=== PATIENT | female | born 1950 | race Caucasian/White ===

== ENCOUNTER → 2017-11-26 14:18 | Outpatient (CLI) | payer MEDICARE, SELFPAY ==
[2017-10-09 15:07] VITALS: BP 192/99; BMI 28.7
[2017-11-26 14:59] LABS: Platelet Count 443 K/mm3 (150-450)
[2017-11-26 15:20] LABS: Valproic Acid (Depakene) Level 57 ug/mL (50-100)
[2017-11-26 15:21] LABS: AST(SGOT) 14 U/L (15-37); Alanine Aminotransfer ALT/SGPT 17 U/L (13-56)
== END ==
PROVIDERS: Family Provider Family Medicine Geriatric Medicine; PCP Family Medicine Geriatric Medicine; Visit Provider Psychiatry & Neurology Psychiatry
DX: Z79.899 Other long term (current) drug therapy (principal)
CPT/HCPCS: 36415; 80164; 84450; 84460; 85049

== ENCOUNTER → 2017-12-10 13:34 | Outpatient (CLI) | payer MEDICARE, SELFPAY ==
[2017-12-10 17:09] LABS: Absolute Lymphocyte Count 2.72 X10^3/ul (0.83-4.51); Absolute Neutrophil Count 5.6 X10^3/uL (2.0-7.7); Basophil# 0.03 X10^3/uL; Basophil% 0.3 % (0-1); Eosinophil# 0.24 X10^3/uL; Eosinophils% 2.5 % (0-5); Hematocrit 44.4 % (37-47); Lymphocyte # 2.72 X10^3/ul (4.0); Lymphocyte % 28.6 % (19-41); Mean Corp Hgb Conc 33.8 g/gl (32-36); Mean Corpuscular Volume 94.7 fL (81-99); Mean Platelet Vol. 10.6 fl (6.2-12.0); Monocyte# 0.91 X10^3/uL; Monocyte% 9.6 % (0-10); Neutrophil # 5.56 X10^3/uL (2.7-7.7); Neutrophil % 58.5 % (47-70); Platelet Count 544 K/mm3 (150-450); RBC Distribution Width CV 13.8 % (11.6-14.6); RBC Distribution Width SD 46.4 fl (35.1-43.9); Red Blood Count 4.69 M/mm3 (4.2-5.4); White Blood Count 9.5 K/mm3 (4.4-11.0)
[2017-12-10 17:11] LABS: POSITIVE COUNT NO; POSITIVE DIFFERENTIAL NO; POSITIVE MORPHOLOGY NO
[2017-12-10 17:34] LABS: AST(SGOT) 16 U/L (15-37); Alanine Aminotransfer ALT/SGPT 18 U/L (13-56); Albumin, Serum 3.9 g/dL (3.2-5.0); Alkaline Phosphatase 106 U/L (45-117); Anion Gap 7 (5-15); BUN 20 mg/dL (7-18); BUN/Creat Ratio 22.1 RATIO (10-20); Calcium,Total 9.4 mg/dL (8.5-10.1); Chloride 100 mmol/L (98-107); EST Glomerular Filtration Rate 66 mL/min (>60); Est Glom Filt Rate - Afr Amer 80 mL/min (>60); Globulin 3.8 g/dL (2.2-4.2); Glucose 90 mg/dL (74-106); Protein, Total 7.7 g/dL (6.4-8.2); Sodium Level 136 mmol/L (136-145); Thyroid Stim Hormone (TSH) 1.06 uIU/mL (0.358-3.74)
[2017-12-11 10:33] LABS: Vitamin D,25 Hydroxy 18.1 ng/mL (19.95-100.01)
== END ==
PROVIDERS: Family Provider Family Medicine Geriatric Medicine; PCP Family Medicine Geriatric Medicine; Visit Provider Family Medicine Geriatric Medicine
DX: I10 Essential (primary) hypertension (principal); E55.9 Vitamin D deficiency, unspecified
CPT/HCPCS: 36415; 80053; 82306; 84443; 85025

== ENCOUNTER 2017-12-18 22:30 | Emergency (ER) | payer MEDICARE, SELFPAY ==
[2017-12-18 22:31] VITALS: BP 135/85; PULSE 91; RESP 18; TEMP 36.8; O2SAT 97; BMI 31.1
--- NOTE | 2017-12-18 22:52 | ED.DCSUM_ITS ---
- ER Visit Summary Date of Service: 12/18/17 Chief Complaint: [] Back pain History of Present Illness: The patient is a 67 F patient comes in by squad from [employer] with back pain. The patient stated that she has had whole-body syndrome over the last 7 days. She said it is from mentally disclosing a traumatic event publicly and now she is having pain as a result. She saw Dr. Jones in the office yesterday for some injections. He started her on gabapentin, prednisone, baclofen, diclofenac. Comes in for further treatment. She said that every muscle in her body has been aching Physical Examination: [] Vital signs reviewed General: Well-nourished well-developed Head: Normocephalic atraumatic Eyes: Pupils equal round and reactive to light extraocular movements intact ENT: TMs clear no hemotympanum no trauma Neck: Nontender full range of motion Cardiovascular: Regular rate rhythm no murmurs normal S1-S2 Respiratory: No distress clear to auscultation bilaterally chest nontender Abdomen: Soft nontender nondistended normal bowel sounds no masses Back: Nontender no CVA tenderness Extremities: Nontender active range of motion ?4 extremities no trauma Skin: Normal color no trauma Neuro alert oriented cranial nerves II through XII intact normal strength sensation reflexes Test Results: [] Emergency Department Course and Treatment: [] Time I feel the patient has no acute emergent cause of her whole body pain. I feel this is psychological. She has affected give her a shot of Toradol. I did state that I will follow-up as an outpatient. Treatment Plan: [] Disposition: [] Impression: [] Body pain This note was generated with [employer] dictation software. It may contain incorrect words, spelling, and punctuation that were not noted in review of the chart prior to signing ED Disposition - Plan for ED Patient: Chief Complaint: Back Referrals: Zeke Jones Chi, MD [Primary Care Provider] -
--- NOTE | 2017-12-18 22:52 | ED.DEP ---
ED Disposition - Plan for ED Patient: Disposition: Home or Assisted Living Chief Complaint: Back Instructions: Relieving Back Pain Referrals: Zeke Jones Chi, MD [Primary Care Provider] -
[2017-12-18] MEDS: Ketorolac 60 MG/2 ML Vial IM (22:56)
[2017-12-18 23:29] VITALS: BP 129/94; PULSE 87; O2SAT 93
== END 2017-12-18 23:30 | disposition home or self-care (01) ==
PROVIDERS: Emergency Provider Emergency Medicine; Family Provider Family Medicine Geriatric Medicine; PCP Family Medicine Geriatric Medicine
DX: M79.1 Myalgia (principal); Z79.52 Long term (current) use of systemic steroids; Z79.899 Other long term (current) drug therapy
CPT/HCPCS: 96372; 99284

== ENCOUNTER 2017-12-23 01:15 | Emergency (ER) | payer MEDICARE, SELFPAY ==
[2017-12-23 01:17] VITALS: BP 125/95; PULSE 90; RESP 18; TEMP 36.5; O2SAT 96
--- NOTE | 2017-12-23 01:37 | ED.VISSUMM ---
- ER Visit Summary Date of Service: 12/23/17 Chief Complaint: Manic History of Present Illness: The patient is a 67 F who sees a counselor at [facility] and Dr. Jones. She reports that she has a history of bipolar disorder. States that she has not slept for 2 days. She denies any suicidal or homicidal ideation. No auditory hallucinations. She took 75 mg of Benadryl at 1130. Physical Examination: Vitals: Stable. Afebrile. General: Well-nourished and well-developed. Head: Normocephalic atraumatic. Neck: Supple, no lymphadenopathy. No JVD. Nontender. Cardiovascular: Regular rate and rhythm. No murmurs. Respiratory: No respiratory distress. Clear to auscultation bilaterally. Abdominal: Soft, nontender, nondistended, normal bowel sounds. No guarding, rebound, or peritoneal signs. Back: Nontender. Extremities: Nontender, no edema. Skin: Normal color, no rash. Neurologic: Alert and oriented ?3. Cranial nerves II through XII are intact. Normal strength and sensation. Psych: Normal affect. Emergency Department Course and Treatment: Patient was given a dose of Ambien on arrival of her taxi. Treatment Plan: Patient is instructed to follow-up at 180 tomorrow for further evaluation. She already has an appointment. Disposition: To home in improved and stable condition. Impression: 1. Bipolar disorder. This note was generated with [employer] dictation software. It may contain incorrect words, spelling, and punctuation that were not noted in review of the chart prior to signing ED Disposition - Plan for ED Patient: Disposition: Home or Assisted Living Chief Complaint: Mental Health Instructions: ED Manic Depression Referrals: EIGHTY,ONE [STAFF PHYSICIAN] - Keep Lis appointment
[2017-12-23 02:13] VITALS: RESP 16
[2017-12-23] MEDS: Zolpidem Tartrate 5 MG Tablet 10 MG PO (02:13)
--- NOTE | 2017-12-23 02:14 | ED.RN ---
PER DR. ESPINOZA, WE NEED TO MEDICATE PT RIGHT BEFORE [facility] TAKES PT HOME. PT WAS ALREADY [facility] TO GET MED. PT GIVEN MED. WATCHED PT WALKED OUT TO [facility].
== END 2017-12-23 02:16 | disposition home or self-care (01) ==
LOC: ED 01:54
PROVIDERS: Emergency Provider Emergency Medicine; Family Provider Family Medicine Geriatric Medicine; PCP Family Medicine Geriatric Medicine
DX: F31.9 Bipolar disorder, unspecified (principal); G47.33 Obstructive sleep apnea (adult) (pediatric); R56.9 Unspecified convulsions; F44.81 Dissociative identity disorder; Z72.0 Tobacco use; Z79.899 Other long term (current) drug therapy
CPT/HCPCS: 99284

== ENCOUNTER 2017-12-24 16:41 | Observation (INO) | payer MEDICARE, SELFPAY ==
[2017-12-24] VITALS (7 sets, daily range): BP systolic 95–139; BP diastolic 58–93; PULSE 70–82; RESP 14–20; TEMP 36.5–37; O2SAT 95–100; BMI 32.3
--- NOTE | 2017-12-24 17:00 | EKG12_ITS ---
Test Reason : MHC Blood Pressure : / mmHG Vent. Rate : 070 BPM Atrial Rate : 070 BPM P-R Int : 154 ms QRS Dur : 080 ms QT Int : 412 ms P-R-T Axes : 064 073 063 degrees QTc Int : 444 ms Normal sinus rhythm Normal ECG Confirmed by EMY KHAN ([id number]), senior editor DONATO CISSE ([id number]) on 12/28/2017 1:41:39 PM Referred By: DC Confirmed By:EMY KHAN
[2017-12-24 17:11] LABS: Absolute Lymphocyte Count 2.43 X10^3/ul (0.83-4.51); Absolute Neutrophil Count 12.6 X10^3/uL (2.0-7.7); Basophil# 0.01 X10^3/uL; Basophil% 0.1 % (0-1); Eosinophil# 0.01 X10^3/uL; Eosinophils% 0.1 % (0-5); Hemoglobin 13.4 g/dl (12.0-15.0); Lymphocyte # 2.43 X10^3/ul (4.0); Lymphocyte % 15.2 % (19-41); Mean Corp Hgb Conc 32.7 g/gl (32-36); Mean Corpuscular Volume 94.9 fL (81-99); Mean Platelet Vol. 9.5 fl (6.2-12.0); Monocyte# 0.85 X10^3/uL; Monocyte% 5.3 % (0-10); Neutrophil # 12.56 X10^3/uL (2.7-7.7); Neutrophil % 78.7 % (47-70); Platelet Count 492 K/mm3 (150-450); RBC Distribution Width CV 13.7 % (11.6-14.6); RBC Distribution Width SD 47.2 fl (35.1-43.9); Red Blood Count 4.32 M/mm3 (4.2-5.4)
[2017-12-24 17:20] LABS: Anion Gap 8 (5-15); BUN 38 mg/dL (7-18); BUN/Creat Ratio 28.8 RATIO (10-20); Calcium,Total 8.6 mg/dL (8.5-10.1); Chloride 103 mmol/L (98-107); Creatinine, Serum 1.32 mg/dL (0.55-1.02); EST Glomerular Filtration Rate 43 mL/min (>60); Est Glom Filt Rate - Afr Amer 52 mL/min (>60); Estimated Creatinine Clearance 30.52 ml/min; Glucose 111 mg/dL (74-106); POSITIVE COUNT NO; POSITIVE DIFFERENTIAL NO; POSITIVE MORPHOLOGY NO; Potassium 4.1 mmol/L (3.5-5.1); Sodium Level 137 mmol/L (136-145)
--- NOTE | 2017-12-24 17:58 | ED.RN ---
GENARO WITH CRISIS IS AWARE THAT PT IS HERE AND NEEDS TO BE SEEN
[2017-12-24 18:02] LABS: Bacteria 0 SEEN /hpf (None Seen); Mucous, Urine 0 SEEN /hpf (<or=2+); Red Blood Cells-Urine 0 SEEN /hpf (0-5)
[2017-12-24 18:05] LABS: Color, Urine Yellow (Yellow); Glucose, Dipstick Normal (Normal); Ketone-Dipstick 5 mg/dl (Negative); Leukocyte Esterase-Dipstick 25 /ul (Negative); Nitrite-Dipstick Negative (Negative); Occult Blood-Urine Negative /ul (Negative); Protein-Dipstick 15 mg/dl (Negative); Specific Gravity, Urine 1.015 (1.002-1.030); Urine Bilirubin Dipstick Negative (Negative); Urine Clarity Clear (Clear); Urine Urobilinogen 1 mg/dl (Normal); Urine pH 6.5 (5.0 - 8.0)
[2017-12-24 18:34] LABS: Amphetamine Urine VISTA NEGATIVE (<1000 ng/mL); Barbiturate Urine VISTA NEGATIVE (< 200 ng/mL); Benzodiazepine Urine VISTA NEGATIVE (< 200 ng/mL); Cocaine Urine VISTA NEGATIVE (< 300 ng/mL); Ecstacy Urine VISTA NEGATIVE (< 500 ng/mL); Methadone Urine VISTA NEGATIVE (< 300 ng/mL); PCP Urine VISTA NEGATIVE (< 25 ng/mL); THC Urine VISTA NEGATIVE (< 50 ng/mL); Vista UDS pH Range 6
[2017-12-24 18:35] LABS: Hyaline Cast 0-5 SEEN /lpf (0-5); Squamous Epithelial Cells - UA 5-10 SEEN /hpf (5-10); White Blood Cells 0-5 SEEN /hpf (0-5)
--- NOTE | 2017-12-24 21:10 | RAD_ITS ---
STUDY: X-RAY CHEST REASON FOR EXAM: Female, 67 years old. Cough TECHNIQUE: AP portable COMPARISON: August 20, 2017 FINDINGS: The lungs are clear and expanded. Tiny calcified granuloma in right lower lobe There is no demonstrated pleural abnormality. Normal size heart. Normal mediastinum. Bilateral calcified hilar nodes Normal visualized pulmonary arteries. Normal visualized aortic arch and descending thoracic aorta. Dorsal spine demonstrates moderate spondylosis Normal visualized ribs, clavicles, and shoulders. There is no demonstrated abnormality of the visualized soft tissue structures of the upper abdomen. No significant change since prior study RAD/Chest 1 View (Portable) IMPRESSION: Old granulomatous disease. No acute cardiopulmonary pathology Electronically Signed: Hay Crabtree MD at 22:10 EST , Service support ,
[2017-12-24] MEDS: 0.9% Normal Saline 1,000 ML 999 ML IV (21:27)
--- NOTE | 2017-12-24 21:49 | ED.DCSUM_ITS ---
- ER Visit Summary Date of Service: 12/24/17 Chief Complaint: Manic episode History of Present Illness: The patient is a 67 F with a history of bipolar disorder. She presents with increasing manic symptoms. She has not been eating or sleeping much over the last few days. She is not suicidal or homicidal. She was taking Invega and Depakote. Physical Examination: Vital signs unremarkable. Afebrile. Mildly agitated with flight of ideas. Heart regular. Lungs clear. Abdomen soft. Skin appears normal. No focal or lateralizing neurologic abnormalities. Test Results: EKG showed sinus rhythm at a rate of 70. Chest x-ray pending. Laboratory studies show white count of 16. BUN 38 and creatinine 1.32. Urinalysis shows signs of contamination. No overt signs of infection. Tox screen negative. Alcohol unremarkable. Cultures pending. Emergency Department Course and Treatment: Patient had psych precautions. She has manic symptoms and she is not taking her medications. I believe the patient would benefit from inpatient psychiatric care. She is not suicidal or homicidal. She was evaluated by the counselor here. Clearance testing showed a white count of 16 and an elevated creatinine. This is a departure from her baseline creatinine. Patient had 2 more findings in the past with a UTI and bacteremia. She does not have evidence of UTI today. Cultures are pending. I do not believe that she will receive adequate medical care at a psychiatric facility. IV fluids were started. I contacted the hospitalist to evaluate. The counselor said that when she is cleared, she may be transferred for further psychiatric care. Treatment Plan: As above Disposition: Admission Impression: 1. Bipolar disorder 2. Leukocytosis 3. Acute kidney injury This note was generated with [employer] dictation software. It may contain incorrect words, spelling, and punctuation that were not noted in review of the chart prior to signing ED Disposition - Plan for ED Patient: Chief Complaint: Mental Health Referrals: Zeke Jones Chi, MD [Primary Care Provider] -
--- NOTE | 2017-12-24 22:02 | PCM.HP.STD ---
Problem List (1) COPD (chronic obstructive pulmonary disease) Status: Chronic Qualifiers: (2) Manic depressive disorder Status: Chronic Qualifiers: (3) Hypertension Status: Chronic Qualifiers: (4) Tobacco abuse Status: Chronic (5) Noncompliance Status: Chronic (6) Bipolar disorder Status: Chronic Qualifiers: (7) Opioid dependence Status: Chronic Qualifiers: History of Present Illness Date of Admission: 12/24/17 Chief Complaint: Manic symptoms. The patient is a 67 year old F with past medical history as mentioned above presented to the emergency room because of what appeared to be manic symptoms. The patient was over talkative, did not stop talking during the whole encounter. Reportedly, she has been not eating or drinking not sleeping over the last few days. She denies any suicidal or homicidal ideations or intentions. She denied chest pain or shortness of breath. Denied abdominal pain, nausea vomiting. Denied constipation or diarrhea. Denied cough or sputum production. Denied urinary symptoms. She was evaluated by the mental health team at the emergency room for possible admission to psych facility but she was found to have acute kidney injury and leukocytosis on blood work and the need to clear the patient medically to be admitted to the psych facility. Patient did admit that she has not been eating or drinking for the last few days. She has a history of hypertension which appears to be under control with hydralazine, lisinopril and metoprolol. She has a history of COPD but she is not using any treatment for it and appears to be stable and she has been on home oxygen. She has a history of bipolar disorder and she has been on Depakote and following up with psychiatry as outpatient. Back in November,, she had E. coli bacteremia due to acute cystitis. At this time, she is not suicidal or homicidal. In the emergency room, her vital signs were stable, she was afebrile. Her routine blood work is remarkable for leukocytosis and creatinine of 1.32. Urinalysis revealed no evidence of acute cystitis or UTI. Urine drug screen was negative, blood alcohol level was 8. She is being admitted for acute kidney injury and leukocytosis without evidence of infection. Past Medical History Past Medical History (Chronic Problems): Chronic Problems COPD (chronic obstructive pulmonary disease) (Chronic) Manic depressive disorder (Chronic) Hypertension (Chronic) Tobacco abuse (Chronic) Noncompliance (Chronic) Bipolar disorder (Chronic) Opioid dependence (Chronic) Allergies lurasidone [From Latuda] Allergy (Verified 12/24/17 16:42) Other naproxen Allergy (Verified 12/24/17 16:42) Hives trazodone Allergy (Verified 12/24/17 16:42) Other theophylline Adverse Reaction (Verified 12/24/17 16:42) Other SLOBID Adverse Reaction (Uncoded 12/24/17 16:42) Other Home Medications: Ambulatory Orders Medication Instructions Recorded Clonidine HCl 0.1 mg PO TID 03/24/17 Lisinopril [Zestril] 20 mg PO DAILY 03/24/17 Metoprolol Tartrate [Lopressor 25 mg PO DAILY 03/24/17 (beta angelita)] HydrALAZINE [Apresoline] 50 mg PO TID 04/08/17 Divalproex (ER) [Depakote ER] 500 mg PO BID 06/20/17 Baclofen 10 mg PO DAILY 12/18/17 Celecoxib [Celebrex] 200 mg PO DAILY 12/18/17 Gabapentin [Neurontin] 300 mg PO QHS 12/18/17 Pravastatin [Pravachol] 40 mg PO DAILY 12/18/17 Prednisone 10 mg PO DAILY 12/18/17 Surgical History: hysterectomy, - - C-sections, hernia repair. 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 Denies: Chills, Fever, Weakness Eyes: Denies: Blurred vision, Double vision, Drainage, Redness HEENT: Denies: Difficulty Hearing, Ear Pain, Eye Pain, Nasal Congestion, Sore Throat Cardiovascular: Denies: Chest Pain, Chest Tightness, Heaviness, Light Headedness, Palpitations, Syncope Respiratory: Denies: Cough, Pleuritic Pain, Shortness of Breath, Sputum production, Wheezing Gastrointestinal: Denies: Abdominal Pain, Constipation, Diarrhea, Nausea, Vomiting Genitourinary: Denies: Dysuria, Frequency, Hematuria Musculoskeletal: Denies: Arm Pain, Back Pain, Foot Pain Skin: Denies: Dryness, Rash Neurological: Denies: Balance problems, Double vision, Change in Speech, Headaches, Incoordination, Numbness Psychiatric: Denies: Anxiety, Depression, Homicidal Ideations, Suicidal Ideations Endocrine: Denies: Change in Body Habitus, Polydipsia VTE Information - Inpt Only VTE Present on Admission: No VTE Mechan Device Prophylaxis: None VTE Pharm Prophylaxis ordered?: Yes - Physical Exam General: Alert, Oriented x3, Cooperative, - - Over talkative, hyperactive. HEENT: Atraumatic, PERRLA, EOMI Oral: Moist Mucosa, No Gingival or Mucosal Lesions/ Ulcerations Neck: Supple, No JVD, Negative Carotid Bruits, Trachea Midline, Thyroid Normal Size and Texture Lungs: Clear to auscultation, No rhonchi, No wheeze, No rales, Diminished Cardiovascular: Regular rate, Regular Rhythm, Normal S1, Normal S2, No murmurs, PMI Normal Abdomen: Bowel Sounds Present, Soft, Non Tender, Non-Distended, No Hepato-splenomegaly Extremities: No clubbing, No cyanosis, No edema Skin: No rashes, No breakdown Lymphatic: No Cervical, Supraclavicular, or Inguinal Adenopathy Neurological: Cranial nerves II-XII grossly intact, Motor Exam 5/5 strength throughout Psych/Mental Status: Impulsive, Manic, Alert and oriented to time, place, person, mood and affect Vital Signs Temp Pulse Resp BP Pulse Ox 98.4 F 75 16 126/83 H 96 12/24/17 21:54 12/24/17 21:54 12/24/17 21:54 12/24/17 21:54 12/24/17 21:54 Oxygen Delivery Method Room Air Weight: 165 lb 9.074 oz Body Mass Index (BMI) 32.3 Finger Stick Blood Glucose 161 Laboratory Tests Past 24 Hrs 12/24/17 12/24/17 12/24/17 16:50 16:50 16:50 WBC 16.0 H RBC 4.32 Hgb 13.4 Hct 41.0 MCV 94.9 MCH 31.0 MCHC 32.7 RDW 13.7 RDW Differential 47.2 H Plt Count 492 H MPV 9.5 Immature Gran % (Auto) 0.600 Neut % (Auto) 78.7 H Lymph % (Auto) 15.2 L [place] % (Auto) 5.3 Eos % (Auto) 0.1 Baso % (Auto) 0.1 Absolute Neuts (auto) 12.6 H Absolute Lymphs (auto) 2.43 Total Counted Not Reportable Sodium 137 Potassium 4.1 Chloride 103 Carbon Dioxide 26.0 Anion Gap 8 BUN 38 H Creatinine 1.32 H Estim Creat Clear Calc 30.52 Est GFR (MDRD) Af Amer 52 L Est GFR (MDRD) Non-Af 43 L BUN/Creatinine Ratio 28.8 H Glucose 111 H Calcium 8.6 Urine Color Urine Clarity Urine pH Ur Specific Heaters Urine Protein Urine Glucose (UA) Urine Ketones Urine Occult Blood Urine Nitrite Urine Bilirubin Urine Urobilinogen Ur Leukocyte Esterase Urine RBC Urine WBC Ur Squamous Epith Cells Urine Bacteria Hyaline Casts Urine Mucus Urine Opiates Screen Urine Methadone Screen Ur Barbiturates Screen Ur Phencyclidine Scrn Ur Amphetamines Screen U Methamphetamin-MDMA U Benzodiazepines Scrn Urine Cocaine Screen U Cannabinoids Screen Ur Drug Screen Comment Ethyl Alcohol 8.0 12/24/17 12/24/17 17:56 17:56 WBC RBC Hgb Hct MCV MCH MCHC RDW RDW Differential Plt Count MPV Immature Gran % (Auto) Neut % (Auto) Lymph % (Auto) [place] % (Auto) Eos % (Auto) Baso % (Auto) Absolute Neuts (auto) Absolute Lymphs (auto) Total Counted Sodium Potassium Chloride Carbon Dioxide Anion Gap BUN Creatinine Estim Creat Clear Calc Est GFR (MDRD) Af Amer Est GFR (MDRD) Non-Af BUN/Creatinine Ratio Glucose Calcium Urine Color Yellow Urine Clarity Clear Urine pH 6.5 Ur Specific Heaters 1.015 Urine Protein 15 H Urine Glucose (UA) Normal Urine Ketones 5 H Urine Occult Blood Negative Urine Nitrite Negative Urine Bilirubin Negative Urine Urobilinogen 1 H Ur Leukocyte Esterase 25 H Urine RBC 0 SEEN Urine WBC 0-5 SEEN Ur Squamous Epith Cells 5-10 SEEN Urine Bacteria 0 SEEN Hyaline Casts 0-5 SEEN Urine Mucus 0 SEEN Urine Opiates Screen NEGATIVE Urine Methadone Screen NEGATIVE Ur Barbiturates Screen NEGATIVE Ur Phencyclidine Scrn NEGATIVE Ur Amphetamines Screen NEGATIVE U Methamphetamin-MDMA NEGATIVE U Benzodiazepines Scrn NEGATIVE Urine Cocaine Screen NEGATIVE U Cannabinoids Screen NEGATIVE Ur Drug Screen Comment Ethyl Alcohol Clinical Impression(s) from Imaging Studies Chest X-Ray 12/24/17 21:10 IMPRESSION: Old granulomatous disease. No acute cardiopulmonary pathology Electronically Signed: Hay Crabtree MD at 22:10 EST , Service support , Assessment/Plan This is a 67 years old female patient presented to the emergency room because of manic symptoms, found to have acute kidney injury and unexplained leukocytosis. She was evaluated by mental health team and they requested medical clearance to be admitted to psychiatric facility and she is being admitted for treatment of acute kidney injury and unexplained leukocytosis. #1 acute kidney injury: Prerenal secondary to dehydration and poor oral intake. Baseline kidney function is normal, most recently creatinine was 0.90. Admission creatinine is 1.32. Plan: Admit to [facility] floor, IV fluids, input output chart, encourage oral intake, repeat CBC and BMP tomorrow morning, hold nephrotoxic drugs. #2 leukocytosis: Likely reactive to anxiety, linnea and stress. She denied any symptoms suggestive of infection.. She had a history of E. coli bacteremia due to acute cystitis back in November,. At this time, she is afebrile, no evidence of sepsis or severe sepsis. Chest x-ray showed no acute infiltrate. Urinalysis reviewed, no evidence of acute cystitis. Blood culture sent. At this time, no indication for IV antibiotics. Plan: Close monitoring, urine culture, repeat CBC tomorrow morning, follow cultures. #3 manic episode: Patient was over talkative and hyperactive. She was evaluated by mental health team at the ER, recommended medical treatment for acute kidney injury and leukocytosis and then patient will need to be evaluated by mental health team again. #4 hypertension: Blood pressure stable, continue clonidine, hydralazine, lisinopril and metoprolol. #5 COPD: Clinically stable, pulse ox is normal on room air. Plan for albuterol as needed. #6 bipolar disorder: Continue Depakote. #7 tobacco abuse: NicoDerm patch if desired. #8 DVT prophylaxis: Subcu heparin. This note was generated with [employer] dictation software. It may contain incorrect words, spelling, and punctuation that were not noted in checking the note before signing. Code Visit OBSV E&M: 23695 Initial observation care L3
[2017-12-24] MEDS: Pravastatin 40 MG Tablet PO (23:56)
[2017-12-24] MEDS: Divalproex (ER) 500 MG Tablet PO (23:56)
[2017-12-25] VITALS (9 sets, daily range): BP systolic 109–124; BP diastolic 55–74; PULSE 65–80; RESP 16–18; TEMP 36.4–37; O2SAT 93–97
[2017-12-25] MEDS: 0.9% Normal Saline 1,000 ML 100 ML IV ×2 (05:02→14:27)
[2017-12-25] MEDS: cloNIDine HCl 0.1 MG Tablet PO ×2 (05:03→14:24)
[2017-12-25] MEDS: Benztropine 2 MG Tablet 1 MG PO (05:03)
[2017-12-25 06:47] LABS: Absolute Lymphocyte Count 2.92 X10^3/ul (0.83-4.51); Absolute Neutrophil Count 7.1 X10^3/uL (2.0-7.7); Basophil# 0.02 X10^3/uL; Basophil% 0.2 % (0-1); Eosinophil# 0.09 X10^3/uL; Eosinophils% 0.8 % (0-5); Hematocrit 36.1 % (37-47); Hemoglobin 11.8 g/dl (12.0-15.0); Lymphocyte # 2.92 X10^3/ul (4.0); Lymphocyte % 26.2 % (19-41); Mean Corp Hgb Conc 32.7 g/gl (32-36); Mean Corpuscular Hgb 31.3 pg (27.0-32.0); Mean Corpuscular Volume 95.8 fL (81-99); Mean Platelet Vol. 9.9 fl (6.2-12.0); Monocyte% 8.1 % (0-10); Neutrophil # 7.12 X10^3/uL (2.7-7.7); Neutrophil % 63.8 % (47-70); Platelet Count 429 K/mm3 (150-450); RBC Distribution Width CV 13.8 % (11.6-14.6); RBC Distribution Width SD 46.3 fl (35.1-43.9); Red Blood Count 3.77 M/mm3 (4.2-5.4); White Blood Count 11.2 K/mm3 (4.4-11.0)
[2017-12-25 06:50] LABS: POSITIVE COUNT NO; POSITIVE DIFFERENTIAL NO; POSITIVE MORPHOLOGY NO
[2017-12-25 07:00] LABS: Anion Gap 7 (5-15); BUN 32 mg/dL (7-18); BUN/Creat Ratio 42.2 RATIO (10-20); Calcium,Total 7.8 mg/dL (8.5-10.1); Chloride 103 mmol/L (98-107); Creatinine, Serum 0.76 mg/dL (0.55-1.02); EST Glomerular Filtration Rate 81 mL/min (>60); Est Glom Filt Rate - Afr Amer 98 mL/min (>60); Estimated Creatinine Clearance 58.37 ml/min; Glucose 93 mg/dL (74-106); Potassium 4.2 mmol/L (3.5-5.1); Sodium Level 138 mmol/L (136-145)
--- NOTE | 2017-12-25 07:01 | PN_ITS ---
Patient Problems: Active and Suspected Problems YANE (acute kidney injury) (Acute) Dehydration (Acute) Laura (Acute) Subjective: Patient is a 67-year-old female with past medical history of COPD, bipolar disorder, Chronic pain S ( follows with Dr. Hylton for pain management), hypertension, tobacco dependence, noncompliance with follow-up and drug regimen and opioid dependence (currently on suboxone) who presented to the [facility] emergency department on 12/24/2017 with increasing manic symptoms. She is managed as an outpatient with Invega and Depakoavtar. Drug screen was negative. ETOH was 8. Creatinine was increased at 1.32 and her baseline over the past year has ranged from 0.46 - 0.9. WBC was increased at 16.0 . She was seen in the emergency room by crisis intervention but, admission was requested due to the elevated creat and leukocytosis. I suspect the WBC is elevated due to stress and the Creat is increased due to not eating or drinking for the past few days. White blood cell count is elevated at 11.2 with no evidence of infection. Creatinine is 0.76 on 12/25/2017 and this is within her baseline. Electrolytes are within normal limits. Chest x-ray showed old granulomatous disease. Afebrile since admission. Vital signs are stable. She is 97% saturated on room air. Blood cultures are pending. UA was negative Still having some flight of ideas this AM. Her friend Sharno thinks she is much better than she has been the past few days. recently started on a steroid taper and Doxycycline for a Skin infection beneath the pannus per the patient. She denies homicidal or suicidal ideation. She has not required any as needed sedatives for agitation. She is calm when she is talking to me although she does have flight of ideas. She is eating her breakfast and drinking her coffee. - Physical Exam General: Alert, Oriented x3, Cooperative, No apparent distress HEENT: Atraumatic Oral: Moist Mucosa Neck: Supple, Trachea Midline Lungs: Clear to auscultation Cardiovascular: Regular rate, Regular Rhythm, Normal S1, Normal S2, No Gallop Abdomen: Bowel Sounds Present, Soft, Non Tender, Non-Distended Extremities: No cyanosis, No edema Skin: No rashes, No breakdown, - - where she points to the dite of the skin infection there is no erythema, no warmth to touch, no wounds. There is hyperpigmentation that looks like she has had intertrigo Neurological: Cranial nerves II-XII grossly intact, Neuro grossly intact Psych/Mental Status: Appropriate - has flight of ideas but no agitation and not reuqiring any sedatives. Vital Signs Temp Pulse Resp BP Pulse Ox 97.5 F L 80 16 109/55 L 97 12/25/17 04:58 12/25/17 05:03 12/25/17 04:58 12/25/17 04:58 12/25/17 04:58 Oxygen Delivery Method Room Air Weight: 164 lb 3.91 oz Body Mass Index (BMI) 30.0 Intake and Output for Last 24 Hours 12/23/17 12/24/17 12/25/17 23:59 23:59 23:59 Intake Total 1388 / 1388 Balance 1388 / 1388 Laboratory Tests Past 24 Hrs 12/25/17 12/25/17 05:50 05:50 WBC 11.2 H RBC 3.77 L Hgb 11.8 L Hct 36.1 L MCV 95.8 MCH 31.3 MCHC 32.7 RDW 13.8 RDW Differential 46.3 H Plt Count 429 MPV 9.9 Immature Gran % (Auto) 0.900 Neut % (Auto) 63.8 Lymph % (Auto) 26.2 [place] % (Auto) 8.1 Eos % (Auto) 0.8 Baso % (Auto) 0.2 Absolute Neuts (auto) 7.1 Absolute Lymphs (auto) 2.92 Total Counted Not Reportable Sodium Pending Potassium Pending Chloride Pending Carbon Dioxide Pending Anion Gap Pending BUN Pending Creatinine Pending Est GFR (MDRD) Af Amer Pending Est GFR (MDRD) Non-Af Pending BUN/Creatinine Ratio Pending Glucose Pending Calcium Pending Assessment/Plan Active and Suspected Problems YANE (acute kidney injury) (Acute) Dehydration (Acute) Laura (Acute) Impressions 1. BPD with acute Laura - possibly precipitated by recent steroid taper 2. YANE due to dehydration - not eating, drinking or sleeping for the past few days 3. Dehydration Seen by Crisis today and they feel she is OK for DC home and she will keep her appt with Dr. Tirado on Thursday Will discontinue Prednisone She can finish doxycycline but, it looks as though whatever was there has resolved Will continue her same medications
[2017-12-25 08:38] LABS: Valproic Acid (Depakene) Level 55 ug/mL (50-100)
--- NOTE | 2017-12-25 08:42 | CASEMGMT ---
Social Work Note Updated by physician that pt has hx of bipolar DO and has been in a manic state. Not eating or drinking. Would like crisis to see as they would not see her yesterday due to an elevated creatinine. Per physician this is stabilized today. Placed call to the counseling center and receptionist airline lounge to notify [employer]. [facility] to continue to follow and assist with discharge planning. Nory Oabndo, PROTOTYPE SEWER, [employer] SENIOR SERGEANT
[2017-12-25] MEDS: Celecoxib 200 MG Capsule PO (09:34)
[2017-12-25] MEDS: Metoprolol Tartrate 25 MG Tablet PO (09:35)
[2017-12-25] MEDS: Lisinopril 20 MG Tablet PO (09:35)
[2017-12-25] MEDS: Baclofen 10 MG Tablet PO (09:37)
[2017-12-25] MEDS: Divalproex (ER) 500 MG Tablet PO (09:37)
[2017-12-25] MEDS: Pantoprazole Sodium 20 MG Tablet PO (09:39)
[2017-12-25] MEDS: BUPRENORPHINE HCL 8 MG TAB.SUBL SL (11:44)
--- NOTE | 2017-12-25 14:04 | CHAPLAIN ---
Type of Pastoral Visit _x__ Initial Visit ___ Follow-up Visit ___ On-call Visit ___ General Patient Visit ___ Spiritual Assessment ___ Family Conference ___ Bereavement ___ Rapid Response ___ Code Blue ___ Other (describe below) Pastoral Care Referral From _x__ Patient ___ Family ___ Nurse ___ Physician ___ Procurement Assistant ___ String Studies Director ___ Other (describe below) Sacrament/Intervention _x__ Active listening ___ Anointing ___ Hinduism ___ Bereavement ___ Communion _x__ [place] exploration ___ _x__ Life review _x__ Prayer ___ Reconciliation ___ Sacrament of Sick ___ Supportive presence ___ Wedding ___ Other (describe below) Pastoral Comments lots of oriental orthodox and spiritual ideas coming from patient; 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
--- NOTE | 2017-12-25 18:14 | PCM.DC ---
You will use the following diet at home:: Other - Resume previous diet Your food should be the consistency of: Regular Your liquids should be the consistency of: Regular/Thin Discharge Activity: Return to Normal Activity Call your doctor if you observe: Fever of 101 or Higher, Shortness of breath, Dizziness, Fainting spells, Swelling in the ankles, Chest pain Additional Instructions: 1. The manic episode may have been caused by the prednisone. This medication can cause agitation and insomnia....it is like taking adrenaline and in someone with Bipolar Disorder this can cause an acute manic epidose. DISCONTINUE THE PREDNISONE Pending Tests on Discharge: Blood cultures Allergies/Adverse Reactions: Allergies lurasidone [From Latuda] Allergy (Verified 12/24/17 16:42) Other naproxen Allergy (Verified 12/24/17 16:42) Hives trazodone Allergy (Verified 12/24/17 16:42) Other theophylline Adverse Reaction (Verified 12/24/17 16:42) Other SLOBID Adverse Reaction (Uncoded 12/24/17 16:42) Other Medications to take at Discharge Clonidine HCl 0.1 mg PO TID 03/24/17 Lisinopril [Zestril] 20 mg PO DAILY 03/24/17 Metoprolol Tartrate [Lopressor (beta angelita)] 25 mg PO DAILY 03/24/17 HydrALAZINE [Apresoline] 50 mg PO TID 04/08/17 Divalproex (ER) [Depakote ER] 500 mg PO BID 06/20/17 Baclofen 10 mg PO DAILY 12/18/17 Celecoxib [Celebrex] 200 mg PO DAILY 12/18/17 Gabapentin [Neurontin] 300 mg PO QHS 12/18/17 Pravastatin [Pravachol] 40 mg PO QHS 12/18/17 Benztropine [Cogentin] 1 mg PO DAILY PRN 12/24/17 Buprenorphine HCl/Naloxone HCl [Suboxone 8 mg-2 mg Sl Film] 2 each SL DAILY 12/24/17 Doxycycline 100 mg PO BID 12/24/17 Guaifenesin [Mucinex] 600 mg PO BID 12/24/17 Paliperidone [Paliperidone ER] 3 mg PO QHS 12/24/17 Pantoprazole Sodium [Protonix] 20 mg PO DAILY 12/24/17 Primary Care Physician: Zeke Jones Chi, MD [Primary Care Provider] - Please follow up with your Primary Care Physician in: 7-10 DAYS Please Follow Up With: Cora Tirado MD When: KEEP YOUR APPT THURSDAY Proposed Discharge Date: 12/25/17
--- NOTE | 2017-12-25 18:22 | DS.PCM_ITS ---
Discharge Date and Diagnosis - Problem List Patient Problems: Active and Suspected Problems YANE (acute kidney injury) (Acute) Dehydration (Acute) Linnea (Acute) Date of Admission: 12/24/17 Date of Discharge: 12/25/17 - Primary Discharge Diagnosis Active and Suspected Problems YANE (acute kidney injury) (Acute) - due to dehydration Dehydration (Acute) Linnea (Acute) - Secondary Discharge Diagnosis Chronic Problems COPD (chronic obstructive pulmonary disease) (Chronic) Manic depressive disorder (Chronic) Hypertension (Chronic) Tobacco abuse (Chronic) Noncompliance (Chronic) Bipolar disorder (Chronic) Opioid dependence (Chronic) Hospital Course and Treatment Imaging Results: Clinical Impression(s) from Imaging Studies Chest X-Ray 12/24/17 21:10 IMPRESSION: Old granulomatous disease. No acute cardiopulmonary pathology Electronically Signed: Hay Crabtree MD at 22:10 EST , Service support , Laboratory Tests 12/24/17 12/24/17 12/24/17 16:50 16:50 16:50 WBC 16.0 H RBC 4.32 Hgb 13.4 Hct 41.0 MCV 94.9 MCH 31.0 MCHC 32.7 RDW 13.7 RDW Differential 47.2 H Plt Count 492 H MPV 9.5 Immature Gran % (Auto) 0.600 Neut % (Auto) 78.7 H Lymph % (Auto) 15.2 L [place] % (Auto) 5.3 Eos % (Auto) 0.1 Baso % (Auto) 0.1 Absolute Neuts (auto) 12.6 H Absolute Lymphs (auto) 2.43 Total Counted Not Reportable Sodium 137 Potassium 4.1 Chloride 103 Carbon Dioxide 26.0 Anion Gap 8 BUN 38 H Creatinine 1.32 H Estim Creat Clear Calc 30.52 Est GFR (MDRD) Af Amer 52 L Est GFR (MDRD) Non-Af 43 L BUN/Creatinine Ratio 28.8 H Glucose 111 H Calcium 8.6 Urine Color Urine Clarity Urine pH Ur Specific [place] Urine Protein Urine Glucose (UA) Urine Ketones Urine Occult Blood Urine Nitrite Urine Bilirubin Urine Urobilinogen Ur Leukocyte Esterase Urine RBC Urine WBC Ur Squamous Epith Cells Urine Bacteria Hyaline Casts Urine Mucus Urine Opiates Screen Urine Methadone Screen Ur Barbiturates Screen Valproic Acid Ur Phencyclidine Scrn Ur Amphetamines Screen U Methamphetamin-MDMA U Benzodiazepines Scrn Urine Cocaine Screen U Cannabinoids Screen Ur Drug Screen Comment Ethyl Alcohol 8.0 12/24/17 12/24/17 12/25/17 17:56 17:56 05:50 WBC 11.2 H RBC 3.77 L Hgb 11.8 L Hct 36.1 L MCV 95.8 MCH 31.3 MCHC 32.7 RDW 13.8 RDW Differential 46.3 H Plt Count 429 MPV 9.9 Immature Gran % (Auto) 0.900 Neut % (Auto) 63.8 Lymph % (Auto) 26.2 [place] % (Auto) 8.1 Eos % (Auto) 0.8 Baso % (Auto) 0.2 Absolute Neuts (auto) 7.1 Absolute Lymphs (auto) 2.92 Total Counted Not Reportable Sodium Potassium Chloride Carbon Dioxide Anion Gap BUN Creatinine Estim Creat Clear Calc Est GFR (MDRD) Af Amer Est GFR (MDRD) Non-Af BUN/Creatinine Ratio Glucose Calcium Urine Color Yellow Urine Clarity Clear Urine pH 6.5 Ur Specific [place] 1.015 Urine Protein 15 H Urine Glucose (UA) Normal Urine Ketones 5 H Urine Occult Blood Negative Urine Nitrite Negative Urine Bilirubin Negative Urine Urobilinogen 1 H Ur Leukocyte Esterase 25 H Urine RBC 0 SEEN Urine WBC 0-5 SEEN Ur Squamous Epith Cells 5-10 SEEN Urine Bacteria 0 SEEN Hyaline Casts 0-5 SEEN Urine Mucus 0 SEEN Urine Opiates Screen NEGATIVE Urine Methadone Screen NEGATIVE Ur Barbiturates Screen NEGATIVE Valproic Acid Ur Phencyclidine Scrn NEGATIVE Ur Amphetamines Screen NEGATIVE U Methamphetamin-MDMA NEGATIVE U Benzodiazepines Scrn NEGATIVE Urine Cocaine Screen NEGATIVE U Cannabinoids Screen NEGATIVE Ur Drug Screen Comment Ethyl Alcohol 12/25/17 12/25/17 05:50 07:40 WBC RBC Hgb Hct MCV MCH MCHC RDW RDW Differential Plt Count MPV Immature Gran % (Auto) Neut % (Auto) Lymph % (Auto) [place] % (Auto) Eos % (Auto) Baso % (Auto) Absolute Neuts (auto) Absolute Lymphs (auto) Total Counted Sodium 138 Potassium 4.2 Chloride 103 Carbon Dioxide 28.0 Anion Gap 7 BUN 32 H Creatinine 0.76 Estim Creat Clear Calc 58.37 Est GFR (MDRD) Af Amer 98 Est GFR (MDRD) Non-Af 81 BUN/Creatinine Ratio 42.2 H Glucose 93 Calcium 7.8 L Urine Color Urine Clarity Urine pH Ur Specific [place] Urine Protein Urine Glucose (UA) Urine Ketones Urine Occult Blood Urine Nitrite Urine Bilirubin Urine Urobilinogen Ur Leukocyte Esterase Urine RBC Urine WBC Ur Squamous Epith Cells Urine Bacteria Hyaline Casts Urine Mucus Urine Opiates Screen Urine Methadone Screen Ur Barbiturates Screen Valproic Acid 55 Ur Phencyclidine Scrn Ur Amphetamines Screen U Methamphetamin-MDMA U Benzodiazepines Scrn Urine Cocaine Screen U Cannabinoids Screen Ur Drug Screen Comment Ethyl Alcohol Crisis Intervention Operations: None Procedures: None Summary of Care Provided: Ms. Valentin is a 67-year-old female with past medical history of COPD, bipolar disorder, Chronic pain S (follows with Dr. Hylton for pain management), hypertension, tobacco dependence and opioid dependence (currently on suboxone) who presented to the [facility] emergency department on 2017 with increasing manic symptoms. She denied any suicidal ideation and also denied homicidal ideation. She had not slept in a few days and was not eating or drinking due to the linnea. She had recently been prescribed a Prednisone taper and Doxycycline byb her PCP for a skin infection beneath the pannus. Drug screen in the emergency room was negative and the ethanol level was 8. Her creatinine was increased at 1.32 and her baseline over the preceding year has ranged from 0.46-0.9. White blood cell count was increased at 16 but the patient has recently been on prednisone. UA was negative for evidence of infection and the chest x-ray showed no infiltrates. She was afebrile at presentation to the emergency. She was seen in the emergency room by the crisis intervention worker but transferred to a psychiatric facility could not be arranged due to the elevated creatinine and leukocytosis. She was admitted to the hospital and hydrated. Prednisone was discontinued. She did not require any sedation for agitation and the following morning the creat was 0.76. She continued to have flight of ideas but she was eating her breakfast and drinking her coffee when I interviewed her. She made good eye contact and was pleasant and calm. she was seen by the nutrition services worker and he did not feel she needed acute psychiatric admission at this time. She has an appt with Dr. Tirado at the [facility] on Thursday and she will keep that appt. She was discharged home and instructed to discontinue Prednisone. We found no evidence of cellulitis beneath the pannus but there is mild hyperpigmentation which can be seen with Intertrigo. She will finish the Doxycycline. Diclofenac has been discontinued because she is also taking Celebrex. Will follow up with Dr. Jones in the office in 5-7 days. She will follow-up with Dr. Nolasco at the counseling center on Thursday as previously arranged. This note was generated with [employer] dictation software. It may contain incorrect words, spelling, and punctuation that were not noted in checking the note before signing. Discharge Activity: Return to Normal Activity Call your doctor if you observe: Fever of 101 or Higher, Shortness of breath, Dizziness, Fainting spells, Swelling in the ankles, Chest pain Home Medications: Medications to take at Discharge Clonidine HCl 0.1 mg PO TID 03/24/17 Lisinopril [Zestril] 20 mg PO DAILY 03/24/17 Metoprolol Tartrate [Lopressor (beta angelita)] 25 mg PO DAILY 03/24/17 HydrALAZINE [Apresoline] 50 mg PO TID 04/08/17 Divalproex (ER) [Depakote ER] 500 mg PO BID 06/20/17 Baclofen 10 mg PO DAILY 12/18/17 Celecoxib [Celebrex] 200 mg PO DAILY 12/18/17 Gabapentin [Neurontin] 300 mg PO QHS 12/18/17 Pravastatin [Pravachol] 40 mg PO QHS 12/18/17 Benztropine [Cogentin] 1 mg PO DAILY PRN 12/24/17 Buprenorphine HCl/Naloxone HCl [Suboxone 8 mg-2 mg Sl Film] 2 each SL DAILY 06/05 Doxycycline 100 mg PO BID 12/24/17 Guaifenesin [Mucinex] 600 mg PO BID 12/24/17 Paliperidone [Paliperidone ER] 3 mg PO QHS 12/24/17 Pantoprazole Sodium [Protonix] 20 mg PO DAILY 12/24/17 Primary Care Physician: Zeke Jones Chi, MD [Primary Care Provider] - Please follow up with your Primary Care Physician in: 7-10 DAYS Please Follow Up With: Cora Tirado MD When: KEEP YOUR APPT THURSDAY Disposition: Home Minutes spent on discharge:: 40 Patient Condition:: Stable Meaningful Use Info Meaningful Use Diagnoses (Choose all that apply): None applicable Code Visit Inpatient E&M: 05142 Disch Hosp
== END 2017-12-25 19:15 | disposition home or self-care (01) ==
LOC: ED 17:51 → MS3 22:00
PROVIDERS: Admitting Provider Hospitalist; Emergency Provider Emergency Medicine; Family Provider Family Medicine Geriatric Medicine; PCP Family Medicine Geriatric Medicine; Visit Provider Internal Medicine
DX: F31.9 Bipolar disorder, unspecified (principal); E86.0 Dehydration; N17.9 Acute kidney failure, unspecified; J44.9 Chronic obstructive pulmonary disease, unspecified; I10 Essential (primary) hypertension; Z91.14 Patient's other noncompliance with medication regimen; Z91.19 Patient's noncompliance with other medical treatment and regimen; F11.20 Opioid dependence, uncomplicated; Z79.899 Other long term (current) drug therapy; G89.29 Other chronic pain; L08.9 Local infection of the skin and subcutaneous tissue, unspecified; F17.200 Nicotine dependence, unspecified, uncomplicated; F41.9 Anxiety disorder, unspecified; D72.829 Elevated white blood cell count, unspecified
CPT/HCPCS: 36415; 71045; 80048; 80164; 80307; 80320; 81001; 85025; 87040; 93005; 96360; 96361; 96372; 97802; 99218; 99284; J7030; G0378; G0480

== ENCOUNTER → 2017-12-28 11:58 | Outpatient (CLI) | payer MEDICARE, SELFPAY ==
[2017-12-28 13:18] LABS: Anion Gap 6 (5-15); BUN 18 mg/dL (7-18); BUN/Creat Ratio 26.6 RATIO (10-20); Calcium,Total 8.8 mg/dL (8.5-10.1); Chloride 104 mmol/L (98-107); Creatinine, Serum 0.68 mg/dL (0.55-1.02); EST Glomerular Filtration Rate 93 mL/min (>60); Est Glom Filt Rate - Afr Amer 112 mL/min (>60); Glucose 89 mg/dL (74-106); Potassium 4.4 mmol/L (3.5-5.1); Sodium Level 138 mmol/L (136-145)
== END ==
PROVIDERS: Family Provider Family Medicine Geriatric Medicine; PCP Family Medicine Geriatric Medicine; Visit Provider Family Medicine Geriatric Medicine
DX: N17.9 Acute kidney failure, unspecified (principal)
CPT/HCPCS: 36415; 80048

== ENCOUNTER 2017-12-29 00:37 | Emergency (ER) | payer MEDICARE, SELFPAY ==
[2017-12-29 00:40] VITALS: BP 148/93; PULSE 97; RESP 18; TEMP 36.4; O2SAT 95; BMI 30.2
[2017-12-29 01:32] LABS: Absolute Lymphocyte Count 2.59 X10^3/ul (0.83-4.51); Absolute Neutrophil Count 7.4 X10^3/uL (2.0-7.7); Basophil# 0.03 X10^3/uL; Basophil% 0.3 % (0-1); Eosinophil# 0.14 X10^3/uL; Eosinophils% 1.2 % (0-5); Hematocrit 39.3 % (37-47); Hemoglobin 13.1 g/dl (12.0-15.0); Lymphocyte # 2.59 X10^3/ul (4.0); Lymphocyte % 22.6 % (19-41); Mean Corp Hgb Conc 33.3 g/gl (32-36); Mean Corpuscular Hgb 31.4 pg (27.0-32.0); Mean Corpuscular Volume 94.2 fL (81-99); Mean Platelet Vol. 9.5 fl (6.2-12.0); Monocyte# 1.28 X10^3/uL; Monocyte% 11.2 % (0-10); Neutrophil # 7.37 X10^3/uL (2.7-7.7); Neutrophil % 64.2 % (47-70); Platelet Count 470 K/mm3 (150-450); RBC Distribution Width CV 13.5 % (11.6-14.6); RBC Distribution Width SD 44.9 fl (35.1-43.9); Red Blood Count 4.17 M/mm3 (4.2-5.4); White Blood Count 11.5 K/mm3 (4.4-11.0)
[2017-12-29 01:33] LABS: POSITIVE COUNT NO; POSITIVE DIFFERENTIAL NO; POSITIVE MORPHOLOGY NO
[2017-12-29 01:45] LABS: Alcohol, Blood (Medical)-Serum < 3.0 mg/dL
[2017-12-29 01:46] LABS: Anion Gap 6 (5-15); BUN 21 mg/dL (7-18); BUN/Creat Ratio 30.2 RATIO (10-20); Calcium,Total 8.6 mg/dL (8.5-10.1); Chloride 107 mmol/L (98-107); EST Glomerular Filtration Rate 90 mL/min (>60); Est Glom Filt Rate - Afr Amer 109 mL/min (>60); Estimated Creatinine Clearance 63.37 ml/min; Glucose 89 mg/dL (74-106); Potassium 4.4 mmol/L (3.5-5.1); Sodium Level 139 mmol/L (136-145)
[2017-12-29 01:56] LABS: Amphetamine Urine VISTA NEGATIVE (<1000 ng/mL); Barbiturate Urine VISTA NEGATIVE (< 200 ng/mL); Benzodiazepine Urine VISTA NEGATIVE (< 200 ng/mL); Cocaine Urine VISTA NEGATIVE (< 300 ng/mL); Ecstacy Urine VISTA NEGATIVE (< 500 ng/mL); Methadone Urine VISTA NEGATIVE (< 300 ng/mL); PCP Urine VISTA NEGATIVE (< 25 ng/mL); THC Urine VISTA NEGATIVE (< 50 ng/mL); Vista UDS pH Range 6
[2017-12-29] MEDS: DiphenhydrAMINE 25 MG Capsule PO (02:27)
[2017-12-29] MEDS: Acetaminophen 500 MG Tablet 1000 MG PO (02:27)
[2017-12-29 02:28] VITALS: RESP 20
--- NOTE | 2017-12-29 03:23 | ED.RN ---
this rn spoke with roxana from crisis after he talked with pt. roxana reports pt seems improved from her previous visit. he reports that she is able to be discharged home, and that he would speak with dr. monaco. pt awaiting d/c instructions.
--- NOTE | 2017-12-29 03:28 | ED.VISSUMM ---
- ER Visit Summary Date of Service: 12/29/17 Chief Complaint: Manic History of Present Illness: The patient is a 67 F history of bipolar states in a manic state currently for the past [address] Lam. States seen 5 days ago was started on an vague for 5 days orally. Followed up today was given an injection. States started having a rash in her hands. No lip or tongue swelling. Denies any suicidal or homicidal ideations. In addition states 4 days ago follow-up with her PCP due to rheumatoid flare. Was put on prednisone. States this was stopped due to her reaction. Was followed up after her psychiatry follow-up today. Was given Ativan hydrocortisone cream and Benadryl in the office. States recently stopped Depakote for unclear reasons. Last dose of Benadryl was this morning. Complains of her rheumatoid pains in her right knee. Patient did state she was admitted after initial evaluation for acute kidney injury for which they think was from prednisone. Physical Examination: General: Alert and oriented ?3, no acute distress. HEENT: Normocephalic, atraumatic. Moist mucosa membranes. No lip or tongue swelling. Neck: supple, nontender. Cardiovascular: Regular rate and rhythm, no murmurs Respiratory: Normal breath sounds, symmetric, no distress Abdomen: Soft, nontender, nondistended Extremities: Nontender, no edema, pulses intact ?4 Neuro: no focal neurological deficits. Skin: There is redness bilateral hands and arms. No streaking. Nontender. Psych: Tangents, flight of ideas. No suicidal or homicidal ideations. Test Results: CBC normal. Creatinine 0.70. Alcohol and tox screen negative. Emergency Department Course and Treatment: Patient nontoxic, no suicidal homicidal ideations. She is given Benadryl and Tylenol for symptoms. NSAIDs avoided due to reported recent [place]. Medical screening obtained which was normal. She is medically cleared. She was value by mental health counselor. States he spoke to her last week, she is much better today. Likely because of the [place]. She is not suicidal. She will have appointment with her psychiatrist tomorrow. On reevaluation patient much more stable. She will be discharged. Treatment Plan: [] Disposition: Discharge Impression: 1. Allergic dermatitis 2. Bipolar stable This note was generated with [employer] software. It may contain incorrect words, spelling, and punctuation that were not noted in review of the chart prior to signing ED Disposition - Plan for ED Patient: Disposition: Home or Assisted Living Chief Complaint: Mental Health Diagnosis: Bipolar disorder, Allergic drug rash Instructions: First Aid: Allergic Reactions, Understanding Bipolar Disorder Referrals: Zeke Jones Chi, MD [Primary Care Provider] - Additional Instructions: Continue Benadryl every 6 hours as needed. Use her topical ointments prescribed by her PCP. Follow-up with Dr. Lam tomorrow for your bipolar evaluation.
[2017-12-29 03:36] VITALS: BP 140/104; PULSE 89; RESP 14; O2SAT 98
--- NOTE | 2017-12-29 03:42 | ED.RN ---
THIS RN EDUCATED PT ON DISCHARGE INSTRUCTIONS. PT VERBALIZES UNDERSTANDING. EDUCATED THAT SHE CAN TAKE BENADRYL 25-50 MG PO [id number] NEEDED FOR THE RASH. PT VERBALIZES UNDERSTANDING. IV D/C AND COVERED WITH 2X2 GAUZE DRESSING. MINIMAL BLEEDING NOTED. PT GIVEN BELONGINGS. PT DRESSES SELF WITHOUT DIFFICULTY. THIS RN CALLED [facility] PER PT REQUEST. PT AWAITING RIDE.
== END 2017-12-29 03:47 | disposition home or self-care (01) ==
PROVIDERS: Emergency Provider Emergency Medicine; Family Provider Family Medicine Geriatric Medicine; PCP Family Medicine Geriatric Medicine
DX: F31.9 Bipolar disorder, unspecified (principal); L30.8 Other specified dermatitis; M06.9 Rheumatoid arthritis, unspecified; J44.9 Chronic obstructive pulmonary disease, unspecified; I10 Essential (primary) hypertension; G47.33 Obstructive sleep apnea (adult) (pediatric); Z79.899 Other long term (current) drug therapy
CPT/HCPCS: 80048; 80307; 80320; 85025; 99285; A4216; G0480

== ENCOUNTER → 2017-12-31 13:49 | Outpatient (CLI) | payer MEDICARE, SELFPAY ==
--- NOTE | 2017-12-31 13:51 | RAD_ITS ---
STUDY: X-RAY - LUMBOSACRAL SPINE REASON FOR EXAM: Female, 67 years old. Lumbar spine pain. TECHNIQUE: 6 view(s) of the lumbosacral spine including lateral flexion and extension views were obtained. COMPARISON: November 30, 2010 FINDINGS: There is generalized osteopenia. There is no substantial scoliosis. There is 4 mm of retrolisthesis of L2 on L3. There is 6 mm of anterolisthesis of L4 on L5, both from facet degeneration. There is limited flexion and extension with no abnormal motion. Normal vertebral bodies and endplates. There is intervertebral disc space narrowing at multiple levels with small osteophytes, most marked at L5-S1. Normal bilateral sacral ala, sacroiliac joints, and visualized sacrum. There is marked vascular calcification. RAD/L/S Spine w Bend Min 6 Vw IMPRESSION: Osteopenia with moderate lumbar spondylosis. Limited flexion and extension with no abnormal motion. Electronically Signed: Shay Guy MD at 11:58 EDT , Service support ,
--- NOTE | 2017-12-31 13:51 | RAD_ITS ---
STUDY: X-RAY - THORACIC SPINE REASON FOR EXAM: Female, 67 years old. Generalized thoracic spine pain. TECHNIQUE: 2 view(s) of the thoracic spine were obtained. COMPARISON: None. FINDINGS: There is generalized osteopenia. There is increased kyphosis. There is no substantial scoliosis. There are endplate concavities compatible with osteoporosis. There is multilevel intervertebral space narrowing with osteophyte formation and paravertebral ossification. There are calcified right hilar nodes. RAD/Thoracic Spine 3 Views IMPRESSION: Osteopenia with moderate generalized thoracic spondylosis. Electronically Signed: Shay Guy MD at 11:46 EDT , Service support ,
== END ==
PROVIDERS: Family Provider Family Medicine Geriatric Medicine; PCP Family Medicine Geriatric Medicine; Visit Provider Orthopaedic Surgery
DX: M54.5 Low back pain (principal); G89.29 Other chronic pain
CPT/HCPCS: 72072; 72114

== ENCOUNTER 2018-01-04 23:44 | Emergency (ER) | payer MEDICARE, SELFPAY ==
[2018-01-04 23:44] VITALS: BP 123/74; PULSE 109; RESP 17; TEMP 36.6; O2SAT 95
--- NOTE | 2018-01-05 | NURSING ---
Son Chiki left his phone number. He is going home. [phone]
--- NOTE | 2018-01-05 00:51 | ED.VISSUMM ---
- ER Visit Summary Date of Service: 01/05/18 Chief Complaint: [] Back pain History of Present Illness: The patient is a 67 F [] planing of acute on chronic back pain. Reports history of rheumatoid arthritis, bipolar disease, degenerative disc disease. Patient reports she is on Suboxone and cannot get narcotic medication from the emergency department. No other complaints at this time. Denies bowel or bladder incontinence. Denies saddle anesthesia. Physical Examination: [] Afebrile, vital signs stable. Morbidly obese female no acute distress. Mild paraspinal lumbosacral tenderness on exam. Remainder of exam is unremarkable. Test Results: [] None. Emergency Department Course and Treatment: [] Patient given 60 IM Norflex for analgesia and muscle spasm. She reports she has a ride home. Follow-up with PCP or painter foreman. Treatment Plan: [] Follow-up with PCP. Disposition: [] Discharge, stable. Impression: [] Acute on chronic back pain This note was generated with [employer] dictation software. It may contain incorrect words, spelling, and punctuation that were not noted in review of the chart prior to signing ED Disposition - Plan for ED Patient: Chief Complaint: Back Referrals: Zeke Jones Chi, MD [Primary Care Provider] -
--- NOTE | 2018-01-05 00:54 | ED.DCSUM_ITS ---
- ER Visit Summary Date of Service: 01/05/18 Chief Complaint: [] Back pain History of Present Illness: The patient is a 67 F [] planing of acute on chronic back pain. Reports history of rheumatoid arthritis, bipolar disease, degenerative disc disease. Patient reports she is on Suboxone and cannot get narcotic medication from the emergency department. No other complaints at this time. Denies bowel or bladder incontinence. Denies saddle anesthesia. Physical Examination: [] Afebrile, vital signs stable. Morbidly obese female no acute distress. Mild paraspinal lumbosacral tenderness on exam. Remainder of exam is unremarkable. Test Results: [] None. Emergency Department Course and Treatment: [] Patient given 60 IM Norflex for analgesia and muscle spasm. She reports she has a ride home. Follow-up with PCP or facilities painter. Treatment Plan: [] Follow-up with PCP. Disposition: [] Discharge, stable. Impression: [] Acute on chronic back pain This note was generated with [employer] dictation software. It may contain incorrect words, spelling, and punctuation that were not noted in review of the chart prior to signing ED Disposition - Plan for ED Patient: Chief Complaint: Back Referrals: Zeke Jones Chi, MD [Primary Care Provider] -
--- NOTE | 2018-01-05 00:54 | ED.DEP ---
ED Disposition - Plan for ED Patient: Disposition: Home or Assisted Living Chief Complaint: Back Instructions: ED Spasm Back No Trauma Referrals: Zeke Jones Chi, MD [Primary Care Provider] -
[2018-01-05] MEDS: Orphenadrine 60 MG/2 ML Ampul IM (01:23)
[2018-01-05 01:26] VITALS: PULSE 100; RESP 18
== END 2018-01-05 01:40 | disposition home or self-care (01) ==
LOC: ED 01-05 01:01
PROVIDERS: Emergency Provider Emergency Medicine; Family Provider Family Medicine Geriatric Medicine; PCP Family Medicine Geriatric Medicine
DX: M54.5 Low back pain (principal); G89.29 Other chronic pain; M06.9 Rheumatoid arthritis, unspecified; E66.01 Morbid (severe) obesity due to excess calories; Z72.0 Tobacco use; Z79.899 Other long term (current) drug therapy
CPT/HCPCS: 96372; 99282

== ENCOUNTER 2018-01-07 05:18 | Emergency (ER) | payer MEDICARE, SELFPAY ==
[2018-01-07 05:23] VITALS: BP 146/99; PULSE 76; RESP 16; TEMP 36.4; O2SAT 96; BMI 29.8
--- NOTE | 2018-01-07 05:35 | ED.VISSUMM ---
- ER Visit Summary Date of Service: 01/07/18 Chief Complaint: Back pain History of Present Illness: The patient is a 67 F presents by EMS initially stated she woke up and could not move. She called her son who called EMS. She is now moving. Currently complains of her back pain that she deals with because of her rheumatoid arthritis. No falls or injuries. Did follow-up with orthopedist, Dr. Leroy on the , was referred back to her pain management doctor Dr. Hylton. Cannot do NSAIDs due to acute kidney injury in the past. She is on Suboxone. She states was here 3 days ago and received a muscle relaxer injection which helped. She ambulated in the department from ambulance. Physical Examination: General: Alert and oriented ?3, no acute distress HEENT: Normocephalic, atraumatic. Moist mucosa membranes Neck: supple, nontender. Cardiovascular: Regular rate and rhythm, no murmurs Respiratory: Normal breath sounds, symmetric, no distress Back: Paraspinal tenderness, no step-offs. Abdomen: Soft, nontender, nondistended Extremities: Nontender, no edema, pulses intact ?4 Neuro: no focal neurological deficits. Test Results: [] Emergency Department Course and Treatment: Patient had chronic symptoms. No cauda equina symptoms. She was given Norflex injection and will follow up with her pain management doctor. Treatment Plan: [] Disposition: Discharge Impression: Chronic back pain This note was generated with [employer] dictation software. It may contain incorrect words, spelling, and punctuation that were not noted in review of the chart prior to signing ED Disposition - Plan for ED Patient: Disposition: Home or Assisted Living Chief Complaint: Dizziness Diagnosis: Chronic back pain Instructions: ED Chronic Pain Management Referrals: Esperanza Baird MD [Primary Care Provider] - Shira Hylton DO [STAFF PHYSICIAN] - 1 Day
[2018-01-07] MEDS: Orphenadrine 60 MG/2 ML Ampul 30 MG IM (05:42)
[2018-01-07 07:04] VITALS: BP 149/101; PULSE 76; RESP 17; O2SAT 95
--- NOTE | 2018-01-07 07:05 | NURSING ---
sending the daughter home with medications that were left on medsurg.
== END 2018-01-07 07:08 | disposition home or self-care (01) ==
PROVIDERS: Emergency Provider Emergency Medicine; Family Provider Internal Medicine; PCP Internal Medicine
DX: M54.9 Dorsalgia, unspecified (principal); G89.29 Other chronic pain; M06.9 Rheumatoid arthritis, unspecified; J44.9 Chronic obstructive pulmonary disease, unspecified; I10 Essential (primary) hypertension; F32.9 Major depressive disorder, single episode, unspecified; Z72.0 Tobacco use; Z79.899 Other long term (current) drug therapy
CPT/HCPCS: 96372; 99284

== ENCOUNTER 2018-01-08 00:02 | Emergency (ER) | payer MEDICARE, SELFPAY ==
[2018-01-08 00:03] VITALS: BP 107/67; PULSE 94; RESP 16; TEMP 36.9; O2SAT 99; BMI 29.8
[2018-01-08 00:33] LABS: Absolute Neutrophil Count 7.1 X10^3/uL (2.0-7.7); Basophil# 0.03 X10^3/uL; Basophil% 0.3 % (0-1); Eosinophil# 0.12 X10^3/uL; Eosinophils% 1.2 % (0-5); Hemoglobin 12.4 g/dl (12.0-15.0); Lymphocyte % 19.8 % (19-41); Mean Corp Hgb Conc 33.5 g/gl (32-36); Mean Corpuscular Hgb 31.6 pg (27.0-32.0); Mean Corpuscular Volume 94.1 fL (81-99); Mean Platelet Vol. 9.1 fl (6.2-12.0); Monocyte# 0.84 X10^3/uL; Monocyte% 8.3 % (0-10); Neutrophil # 7.08 X10^3/uL (2.7-7.7); Neutrophil % 70.1 % (47-70); Platelet Count 639 K/mm3 (150-450); RBC Distribution Width CV 13.4 % (11.6-14.6); RBC Distribution Width SD 44.6 fl (35.1-43.9); Red Blood Count 3.93 M/mm3 (4.2-5.4); White Blood Count 10.1 K/mm3 (4.4-11.0)
[2018-01-08 00:38] LABS: POSITIVE COUNT NO; POSITIVE DIFFERENTIAL NO; POSITIVE MORPHOLOGY NO
--- NOTE | 2018-01-08 00:38 | ED.VISSUMM ---
- ER Visit Summary Date of Service: 01/08/18 Chief Complaint: I am dissociating History of Present Illness: The patient is a 67 F who presents with the above complaint. She states that she is dissociating and she wants a mental health evaluation. She states that she does not know what day it is and she is concerned about her mental health. Patient has been seen here many times for this in the past. She states that she has been medication compliant. She denies being suicidal or homicidal Physical Examination: Vital signs reviewed. HEENT exam unremarkable. Heart is regular rate and rhythm without murmurs. Lungs are clear to auscultation. Abdomen is soft and nontender. Extremities reveal no edema. Skin exam normal. Neurologic exam normal. Patient denies suicidal or homicidal ideation. She does have some flight of ideas when you speak with her. Test Results: Screening labs are negative. Tox screen does reveal benzodiazepines Emergency Department Course and Treatment: Patient was evaluated by crisis. Patient is mildly manic but she does not represent a harm to herself or anybody else. Both crisis and I feel she can be discharged to follow-up on Thursday with her psychiatrist. She will continue her home medications Treatment Plan: [] Disposition: Discharge Impression: Acute linnea This note was generated with [employer] dictation software. It may contain incorrect words, spelling, and punctuation that were not noted in review of the chart prior to signing ED Disposition - Plan for ED Patient: Chief Complaint: Mental Health Referrals: Esperanza Baird MD [Primary Care Provider] -
[2018-01-08 00:47] LABS: Amphetamine Urine VISTA NEGATIVE (<1000 ng/mL); Barbiturate Urine VISTA NEGATIVE (< 200 ng/mL); Benzodiazepine Urine VISTA POSITIVE (< 200 ng/mL); Cocaine Urine VISTA NEGATIVE (< 300 ng/mL); Ecstacy Urine VISTA NEGATIVE (< 500 ng/mL); Methadone Urine VISTA NEGATIVE (< 300 ng/mL); PCP Urine VISTA NEGATIVE (< 25 ng/mL); THC Urine VISTA NEGATIVE (< 50 ng/mL); Vista UDS pH Range 5
[2018-01-08 00:51] LABS: Anion Gap 9 (5-15); BUN 19 mg/dL (7-18); BUN/Creat Ratio 25.1 RATIO (10-20); Calcium,Total 8.7 mg/dL (8.5-10.1); Chloride 107 mmol/L (98-107); Creatinine, Serum 0.76 mg/dL (0.55-1.02); EST Glomerular Filtration Rate 81 mL/min (>60); Est Glom Filt Rate - Afr Amer 99 mL/min (>60); Estimated Creatinine Clearance 58.37 ml/min; Glucose 89 mg/dL (74-106); Sodium Level 141 mmol/L (136-145)
[2018-01-08 00:57] LABS: Pregnancy, Serum, hCG Quali. NEGATIVE Negative (0-9 Nonpreg)
[2018-01-08 00:59] LABS: Alcohol, Blood (Medical)-Serum < 3.0 mg/dL
[2018-01-08 01:06] VITALS: RESP 20
--- NOTE | 2018-01-08 01:45 | ED.DEP ---
ED Disposition - Plan for ED Patient: Disposition: Home or Assisted Living Chief Complaint: Mental Health Instructions: ED Manic Depression Referrals: Esperanza Baird MD [Primary Care Provider] -
[2018-01-08 01:55] VITALS: RESP 18
== END 2018-01-08 01:55 | disposition home or self-care (01) ==
PROVIDERS: Emergency Provider Emergency Medicine; Family Provider Internal Medicine; PCP Internal Medicine
DX: F30.9 Manic episode, unspecified (principal); Z72.0 Tobacco use; Z79.899 Other long term (current) drug therapy
CPT/HCPCS: 80048; 80307; 80320; 84703; 85025; 99283; G0480

== ENCOUNTER 2018-01-13 23:37 | Emergency (ER) | payer MEDICARE, SELFPAY ==
[2018-01-13 23:38] VITALS: BP 119/69; PULSE 101; RESP 18; TEMP 37.1; O2SAT 93; BMI 30.7
[2018-01-13 23:42] VITALS: O2SAT 95
--- NOTE | 2018-01-13 23:55 | ED.VISSUMM ---
- ER Visit Summary Date of Service: 01/13/18 Chief Complaint: Cough History of Present Illness: The patient is a 67 F who has had a cough for 2 days. She saw her PCP today who gave her a Z-Gordon and Mucinex. She states is not helping her cough. Her cough is nonproductive. No fevers. She does continue to smoke. Patient has been seen here many times for many issues Physical Examination: Vital signs reviewed. HEENT exam unremarkable. Heart is regular rate and rhythm without murmurs. Lungs very slight expiratory wheeze. Abdomen is soft and nontender. Extremities reveal no edema. Skin exam normal. Neurologic exam normal. Test Results: None indicated Emergency Department Course and Treatment: She is already on antibiotics. She also has an albuterol inhaler in her purse. She was encouraged to use this along with her antibiotics and Mucinex. She will given a Tessalon Perle here. She will follow-up with her PCP Treatment Plan: [] Disposition: Discharge Impression: URI with cough This note was generated with [employer] dictation software. It may contain incorrect words, spelling, and punctuation that were not noted in review of the chart prior to signing ED Disposition - Plan for ED Patient: Chief Complaint: General Illness Referrals: Esperanza Baird MD [Primary Care Provider] -
--- NOTE | 2018-01-13 23:56 | ED.DEP ---
ED Disposition - Plan for ED Patient: Disposition: Home or Assisted Living Chief Complaint: General Illness Instructions: ED Upper Resp Infec Abx Tx Referrals: Esperanza Baird MD [Primary Care Provider] -
[2018-01-14] MEDS: Benzonatate 100 MG Capsule PO (00:06)
[2018-01-14 00:07] VITALS: BP 132/87; PULSE 100; RESP 18
== END 2018-01-14 00:08 | disposition home or self-care (01) ==
LOC: ED 01-14
PROVIDERS: Emergency Provider Emergency Medicine; Family Provider Internal Medicine; PCP Internal Medicine
DX: J06.9 Acute upper respiratory infection, unspecified (principal); R05 Cough; F17.200 Nicotine dependence, unspecified, uncomplicated; F31.9 Bipolar disorder, unspecified; Z79.2 Long term (current) use of antibiotics; Z79.899 Other long term (current) drug therapy
CPT/HCPCS: 99284

== ENCOUNTER → 2018-01-21 12:45 | Outpatient (CLI) | payer MEDICARE, SELFPAY ==
--- NOTE | 2018-01-21 12:48 | BD_ITS ---
STUDY: DUAL ENERGY X-RAY ABSORPTIOMETRY / DXA REASON FOR EXAM: Female, 67 years old. The patient is postmenopausal. Loss of height. TECHNIQUE: Bone Mineral Density (BMD) measurements of lumbar spine and bilateral hips were obtained. COMPARISON: None. FINDINGS: Lumbar Spine (L1-L4): g/cm2 (1.019) / T-score (-1.5) / Z-score (0.1) Findings are suggestive of osteopenia with a moderate fracture risk. Left Femur Total: g/cm2 (0.822) / T-score (-1.5) / Z-score (-0.3) Left Femoral Neck: g/cm2 (0.726) / T-score (-2.2) / Z-score (-0.8) Right Femur Total: g/cm2 (0.732) / T-score (-2.2) / Z-score (-1.0) Right Femoral Neck: g/cm2 (0.728) / T-score (-2.2) / Z-score (-0.8) BD/Dexa Bone Density Study IMPRESSION: The patient is considered osteopenic as outlined below according to World Phil Organization (WHO) criteria with a moderate fracture risk. Reference Information: The T-score is the number of standard deviations above or below the standard which is normal for young adults at their peak bone mineral density. The World Health Organization (WHO) interprets the T-scores as follows: Above -1 Normal bone density Between -1 and -2.5 Osteopenia Equal to / or below -2.5 Osteoporosis As a practical clinical guideline, osteopenia may be graded as follows: Mild -1 through -1.5 Moderate -1.6 through -2.0 Severe -2.1 through -2.4 The Z-score is the number of standard deviations above or below age-matched controls. A Z-score of less than -1.5 would be considered abnormal. References: 1. NIH Osteoporosis and Related Bone Diseases http://www.osteo.org 2. International Society for Clinical Densitometry http://www.iscd.org 3. National Osteoporosis Foundation http://www.nof.org Electronically Signed: Wil Ortega MD at 10:01 EDT Tel [phone], Service support ,
== END ==
PROVIDERS: Family Provider Internal Medicine; PCP Internal Medicine; Visit Provider Nurse Practitioner Family
DX: Z78.0 Asymptomatic menopausal state (principal); M85.80 Other specified disorders of bone density and structure, unspecified site
CPT/HCPCS: 77080

== ENCOUNTER → 2018-02-02 14:35 | Outpatient (CLI) | payer MEDICARE, SELFPAY ==
--- NOTE | 2018-02-02 14:38 | RAD_ITS ---
STUDY: X-RAY - RIGHT KNEE REASON FOR EXAM: Female, 67 years old. Pain with soft bump/lump laterally. TECHNIQUE: 4 view(s) of the knee. A BB identified in the area of the soft lump. COMPARISON: August 01, 2016 FINDINGS: There is stable generalized osteopenia. There is moderate to severe arthrosis of the medial and lateral compartments unchanged. There is ykaz-du-temlvboo arthrosis of the patellofemoral compartment unchanged. In the area of the BB, no significant abnormality is noted. The soft tissue structures are unremarkable. RAD/Knee 4 or More Views IMPRESSION: Stable osteopenia with tricompartmental osteoarthrosis. Electronically Signed: Shay Guy MD at 11:27 EDT , Service support ,
== END ==
PROVIDERS: Family Provider Internal Medicine; PCP Internal Medicine; Visit Provider Orthopaedic Surgery
DX: M17.11 Unilateral primary osteoarthritis, right knee (principal); R56.9 Unspecified convulsions; M54.9 Dorsalgia, unspecified; G89.29 Other chronic pain
CPT/HCPCS: 73564; 82945; 84157; 87070; 87075; 87205; 89050; 89051; 89060; 97113

== ENCOUNTER → 2018-02-02 16:59 | Outpatient (CLI) | payer MEDICARE, SELFPAY ==
[2018-02-02 17:03] LABS: Pathologist Comment May follow
[2018-02-02 17:38] LABS: Synovial Fld Mononuclear WBC % 46.6 %; Synovial Fld Polynuclear WBC # 0.103 10^3/ul; Synovial Fld Polynuclear WBC % 53.4 %
[2018-02-02 17:54] LABS: AUTO B FLUID DILUENT BKGD CT WBC <0.1 RBC <0.01 (W<.1,R<.01); Body Fluid QC Type(s) BF2Q,BF3Q; RBC /Synovial Fluid 56 /mm3 (0); Source / Synovial Fluid RIGHT KNEE; Source- Body Fluid SYNOVIAL; Viscosity / Synovial Fluid Sl. Viscous (HIGH)
[2018-02-02 18:09] LABS: Lymph 67 %; Monocyte /Synovial Fluid 32 %; Other Cell /Synovial Fluid 1 %
[2018-02-02 18:10] LABS: Appearance /Synovial Fluid Clear (CLEAR); Color / Synovial Fluid Yellow (Pale Yellow)
[2018-02-03 14:43] LABS: Pathologist Review Reviewed
[2018-02-05 11:35] LABS: GLUCOSE, SYNOVIAL FLUID 98 mg/dL (.)
== END ==
PROVIDERS: Family Provider Internal Medicine; PCP Internal Medicine; Visit Provider Orthopaedic Surgery
DX: M17.11 Unilateral primary osteoarthritis, right knee (principal)
CPT/HCPCS: 82945; 84157; 87070; 87075; 87205; 89050; 89051; 89060

== ENCOUNTER → 2018-02-05 10:30 | Outpatient (CLI) | payer MEDICARE, SELFPAY ==
--- NOTE | 2018-02-05 10:32 | US_ITS ---
STUDY: SUPERFICIAL ULTRASOUND - RIGHT LEG REASON FOR EXAM: Female, 67 years old. Palpable lump just inferior and lateral to the right knee TECHNIQUE: A superficial ultrasound was performed with real-time and static steele-scale imaging. COMPARISON: None. FINDINGS: In the region of interest, a lymph node is identified that measures 2.7 x 2.5 x 0.7 cm. Although prominent, it maintains a normal architecture. Local edema is also present. US/Ext Non Vasc Limited/Soft Tiss IMPRESSION: Ultrasound demonstrates a prominent lymph node in the region of interest and associated edema. Electronically Signed: Eric Duran MD at 8:12 EDT Tel , Service support ,
== END ==
PROVIDERS: Family Provider Internal Medicine; PCP Internal Medicine; Visit Provider Orthopaedic Surgery
DX: M25.861 Other specified joint disorders, right knee (principal)
CPT/HCPCS: 76882

== ENCOUNTER 2018-02-11 13:30 | Outpatient (RCR) | payer MEDICARE, SELFPAY ==
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
--- NOTE | 2018-05-26 13:50 | HP.PTDCNRP_ITS ---
HP - Discharge Summary (1) - Patient Information SHALA POWELL was seen in my office for initial evaluation on 01/18/18. The following Plan of Care was established for this patient: Initial Frequency: 2x /Week Initial Duration: 4 Weeks - Anticipated Interventions Patient/Client Instruction: Educate patient on: Condition, Plan of Care For the Purpose of:: To decrease pain, To improve nutrient delivery to tissue, To improve muscle performance and motor function, To increase tolerance to activity/condition/position, To improve performance and independence with ADL's , To improve ability of physical actions for home/community/work/leisure, To improve health of tissue, To decrease soft tissue restriction, To increase flexibility/ROM, To reduce risk of recurrence, To improve ability to perform tasks related to life management Therapeutic Exercise to Include: Strength training, Body mechanics, Postural training, Flexibilty training, In an aquatic setting, Dynamic Lumbar Stabilization For the Purpose of:: To decrease pain, To increase ROM, To improve muscle performance and motor function, To improve ability to perform ADL's, To increase tolerance to activity/condition/position, To improve ability of physical actions for home/community/work/leisure, To improve health of tissue, To decrease soft tissue restriction, To increase flexibility/ROM, To assume or resume ADL's, To improve ability to perform tasks related to life management, To improve tolerance to ADL's This patient was last seen in our office 02/11/18. Pertinent comments regarding their Physical therapy will appear below: Patient seen for PT for Aquatic PT for chronic pain for ROM ,strengthening for 6 visits. At this point I will be discontinuing this patient from physical therapy. I would be happy to see this patient again in the future if found appropriate by the physician. Thank you! Isaías Schneider, PT,
== END 2018-02-11 19:00 | disposition home or self-care (01) ==
LOC: PT 13:30
PROVIDERS: Family Provider Internal Medicine; PCP Internal Medicine; Visit Provider Nurse Practitioner Family
DX: M54.9 Dorsalgia, unspecified (principal); G89.29 Other chronic pain
CPT/HCPCS: 97113; 97162

== ENCOUNTER → 2018-02-19 06:54 | Outpatient (CLI) | payer MEDICARE, SELFPAY ==
[2018-02-19 07:20] LABS: EST Glomerular Filtration Rate 76 mL/min (>60); Est Glom Filt Rate - Afr Amer 92 mL/min (>60)
[2018-02-19 07:28] LABS: Cholesterol 150 mg/dL (200); High Density Lipoprotein 47 mg/dL; Triglycerides 74 mg/dL; Very Low Density Lipoprotein 15 mg/dL (5-40)
== END ==
PROVIDERS: Orthopaedic Surgery; Family Provider Internal Medicine; PCP Internal Medicine; Visit Provider Internal Medicine
DX: E78.5 Hyperlipidemia, unspecified (principal); M25.869 Other specified joint disorders, unspecified knee
CPT/HCPCS: 36415; 80061; 82565

== ENCOUNTER → 2018-02-19 07:02 | Outpatient (CLI) | payer MEDICARE, SELFPAY ==
--- NOTE | 2018-02-19 07:03 | MRI_ITS ---
STUDY: MRI RIGHT KNEE REASON FOR EXAM: Anterior knee pain for 8 years, lump at the lateral aspect of the knee after knee injection, the lump has since resolved. TECHNIQUE: Standardized fat and water weighted pulse sequences were obtained in all 3 orthogonal planes. COMPARISON: Radiographs 02/02/2018. FINDINGS: There is tear/degeneration of the posterior horn (proton-density sagittal images 25-33) and body (proton-density coronal images 18-20) of the medial meniscus. There is peripheral subluxation of the medial meniscus. There is arthrosis of the medial femorotibial compartment with marginal osteophytes and chondral loss (T2 sagittal image 19). Normal medial femoral condyle and tibial plateau. Normal medial collateral ligamentous complex (MCL). Normal distal semimembranosus, gracilis and semitendinosus tendons. Normal lateral meniscus. Normal hyaline cartilage of the lateral femorotibial compartment. There are marginal osteophytes of the lateral femorotibial compartment. Normal lateral femoral condyle and tibial plateau. Normal proximal tibiofibular articulation. Normal lateral collateral (fibular) ligament. Normal popliteus tendon. Normal biceps femoris tendon. There is a mesial osteophyte of the lateral femoral condyle abutting the anterior cruciate ligament with attenuation of the ligament (T2 coronal image 14) suggestive of anterior cruciate ligament impingement. Normal posterior cruciate ligament (PCL). Normal congruent patellofemoral articulation. There is arthrosis of the patellofemoral compartment with marginal osteophytes and chondral loss of the patella (T2 sagittal image 17). Normal medial and lateral patellar retinaculum. Normal visualized quadriceps tendon. Normal patellar tendon. Normal Hoffa's fat pad. There is a small joint effusion. There is a thin medial patellar plica. There is an intra-articular body posterior to the posterior cruciate ligament and root of the posterior horn of the medial meniscus (T2 coronal image 9) measuring 1.6 cm in transverse dimension. There is a small cyst superficial to the distal iliotibial band (T2 coronal image 18) measuring 0.7 cm in length. There is edema in the lateral and anterior subcutis adipose space. There is a small ganglion cyst at the anterior medial aspect of the tibial plateau (T2 axial image 19) measuring 1.6 cm in greatest dimension. The otherwise visualized osseous structures are unremarkable. MRI/Lower Ext Joint Only (Routine) IMPRESSION: Small cyst superficial to the distal iliotibial band. Tear/degeneration of the medial meniscus. Arthrosis of the medial femorotibial and patellofemoral compartments, and marginal osteophytes of the lateral femorotibial compartment. Anterior cruciate ligament impingement with attenuation of the ligament. Posterior intra-articular body. Small joint effusion. Small ganglion cyst at the anterior medial aspect of the tibial plateau Electronically Signed: Ja Austin MD at 9:17 EDT Tel , Service support ,
== END ==
PROVIDERS: Family Provider Internal Medicine; PCP Internal Medicine; Visit Provider Orthopaedic Surgery
DX: M25.869 Other specified joint disorders, unspecified knee (principal); E78.5 Hyperlipidemia, unspecified
CPT/HCPCS: 36415; 73721; 80061; 82565

== ENCOUNTER → 2018-03-05 15:59 | Outpatient (CLI) | payer MEDICARE, SELFPAY ==
--- NOTE | 2018-03-05 16:01 | BI_ITS ---
MAMMOGRAPHY - BILATERAL SCREENING REASON FOR EXAM: Female, 67 years old. Routine annual screening examination. PERTINENT HISTORY: Sister with breast cancer. TECHNIQUE: Digital bilateral breast shimon (3D mammographic acquisition) in the CC and MLO projections. 2-D mediolateral oblique (MLO) and craniocaudad (CC) views of both breasts were obtained. CAD: Full Field Digital Mammography with Computer Added Detection was performed. COMPARISON: Comparison is made with prior outside examination dated December 12, 2016 and December 20, 2013. FINDINGS: Breast Composition: There are scattered areas of fibroglandular density. There are no dominant masses or suspicious calcifications. No other significant abnormalities are identified. There has been no significant change since the prior study. BI/SCREENING MAMM (CAD), BILAT IMPRESSION: Stable bilateral screening mammogram. Yearly follow-up mammogram recommended. (A) ASSESSMENT CATEGORY: BIRADS Category 1: Negative. A letter regarding these results will be sent to the patient by the facility within 30 days. Approximately 10% of breast cancers are not detected by mammography. A normal mammogram should not delay biopsy of a clinically suspicious abnormality. [id number] Electronically Signed: Wil Ortega MD at 8:06 EDT Tel [phone], Service support ,
== END ==
PROVIDERS: Family Provider Internal Medicine; PCP Internal Medicine; Visit Provider Internal Medicine
DX: Z12.31 Encounter for screening mammogram for malignant neoplasm of breast (principal)
CPT/HCPCS: 77063; 77067

== ENCOUNTER 2018-03-13 00:13 | Inpatient (IN) | payer MEDICARE, SELFPAY ==
[2018-03-13] VITALS (11 sets, daily range): BP systolic 108–213; BP diastolic 66–109; PULSE 72–108; RESP 16–18; TEMP 36.7–37.6; O2SAT 94–99; BMI 31.2; BMI 32.5; BMI 32.6
--- NOTE | 2018-03-13 00:34 | RAD_ITS ---
STUDY: X-RAY - ACUTE ABDOMINAL SERIES REASON FOR EXAM: Female, 67 years old. upper abdominal pain, nausea, vomiting TECHNIQUE: Single view of the chest. Supine, erect, and decubitus view(s) of the abdomen were obtained. COMPARISON: None. FINDINGS: The lungs are clear and expanded. Normal size heart. Normal mediastinum and jairo. Normal visualized pulmonary arteries. Normal visualized aortic arch and descending thoracic aorta. There is a non-specific bowel gas pattern. The soft tissue structures of the abdomen and pelvis are unremarkable. There are diffuse degenerative changes of the visualized lumbar spine. RAD/Acute Abdomen Inc Chest IMPRESSION: Normal x-ray examination of the chest, abdomen, and pelvis. Electronically Signed: Lilian Sandoval MD at 2:16 EDT Tel , Service support ,
[2018-03-13] MEDS: Ondansetron 4 MG/2 ML Vial IV (01:03)
[2018-03-13 01:05] LABS: Absolute Lymphocyte Count 2.11 X10^3/ul (0.83-4.51); Absolute Neutrophil Count 8.7 X10^3/uL (2.0-7.7); Basophil# 0.03 X10^3/uL; Basophil% 0.3 % (0-1); Eosinophil# 0.11 X10^3/uL; Eosinophils% 0.9 % (0-5); Hematocrit 44.5 % (37-47); Hemoglobin 14.6 g/dl (12.0-15.0); Lymphocyte # 2.11 X10^3/ul (4.0); Lymphocyte % 17.6 % (19-41); Mean Corp Hgb Conc 32.8 g/gl (32-36); Mean Corpuscular Hgb 30.7 pg (27.0-32.0); Mean Corpuscular Volume 93.5 fL (81-99); Mean Platelet Vol. 9.3 fl (6.2-12.0); Monocyte# 0.91 X10^3/uL; Monocyte% 7.6 % (0-10); Neutrophil # 8.72 X10^3/uL (2.7-7.7); Neutrophil % 72.6 % (47-70); POSITIVE COUNT NO; POSITIVE DIFFERENTIAL NO; POSITIVE MORPHOLOGY NO; Platelet Count 521 K/mm3 (150-450); RBC Distribution Width CV 13.4 % (11.6-14.6); Red Blood Count 4.76 M/mm3 (4.2-5.4)
[2018-03-13 01:18] LABS: AST(SGOT) 955 U/L (15-37); Alanine Aminotransfer ALT/SGPT 839 U/L (13-56); Albumin, Serum 3.5 g/dL (3.2-5.0); Alkaline Phosphatase 374 U/L (45-117); Anion Gap 6 (5-15); BUN 14 mg/dL (7-18); BUN/Creat Ratio 18.8 RATIO (10-20); Bilirubin, Direct 0.63 mg/dL (0.00-0.30); Calcium,Total 9.3 mg/dL (8.5-10.1); Chloride 105 mmol/L (98-107); Creatinine, Serum 0.74 mg/dL (0.55-1.02); EST Glomerular Filtration Rate 83 mL/min (>60); Est Glom Filt Rate - Afr Amer 101 mL/min (>60); Estimated Creatinine Clearance 54.44 ml/min; Globulin 4.3 g/dL (2.2-4.2); Glucose 127 mg/dL (74-106); Lipase 123 U/L (73-393); Potassium 4.3 mmol/L (3.5-5.1); Protein, Total 7.8 g/dL (6.4-8.2); Sodium Level 138 mmol/L (136-145)
--- NOTE | 2018-03-13 02:47 | ED.DCSUM_ITS ---
- ER Visit Summary Date of Service: 03/13/18 Chief Complaint: Upper abdominal pain that started this morning associated with nausea and vomiting ?1 History of Present Illness: The patient is a 67 F who presents with upper abdominal pain that started this morning. She reports one episode of nausea vomiting. She states she had a hamburger proximal and 1 hour prior to arrival. She did vomit. She does report intolerance to greasy/fried food. She is unable to say that the hamburger made the pain worse. She denies fever, chills night sweats. Complained of diaphoresis presently. She denies chest pain or palpitations. She denies shortness of breath, cough or dyspnea on exertion. She denies black or maroon colored stool. She denies dysuria, frequency, urgency or hematuria. She does complain of mid back pain. She has no other complaints. Review prior records reveal history of COPD, GERD, hypercholesterolemia, seizure disorder and hepatitis. She does have history of opiate dependency and bipolar affective disorder. Patient states she was diagnosed with hepatitis at the age of 10 because when she was a child doctors did not have disposable needles and syringes. Physical Examination: Blood pressure is elevated to 13/109. She appears uncomfortable and is diaphoretic. Head is atraumatic normocephalic. Pupils are equal round reactive. Extraocular muscles are intact. TMs are pearly white with landmarks noted. Nares patent with no drainage. Posterior pharynx without erythema or exudate. Uvula is midline. There is no dysphonia or dysphasia. Trachea is midline. There is no stridor with auscultation of the neck. Heart is regular without murmur, gallop or rub. S1 and S2 are normal. Lungs are clear to auscultation with good movement of air bilaterally. Abdomen is remarkable significant tenderness in the right upper quadrant equivocal Valiente sign. There is tympany to percussion. There is no guarding or rebound tenderness other than the right upper quadrant. There is no CVA tenderness noted. There is no skin lesion or rash noted. Lower extremity exam is unremarkable. Neuro exam is nonfocal. Test Results: Three-view x-ray of the abdomen was obtained his old massive gas pattern with increased fecal stasis. The chest portion reveals normal cardiac silhouette, mediastinum and no acute pulmonary findings. Muscular structures are normal. The x-ray was interpreted by me. White count is elevated 12.0 thousand with 73 segs. Electro panels normal. Hepatic is remarkable ALT and AST of 955 any 39 respectively. Alk phos is elevated to 374. Lipase is normal. Emergency Department Course and Treatment: Evaluate patient's upper abdominal pain with nausea and vomiting x-ray was obtained because she is distended tympanitic with decreased bowel sounds. Because of the right upper quadrant pain hepatic and lipase were ordered as well as CBC. BMP was ordered to evaluate kidney function. Treatment Plan: Concern patient has cholecystitis. Will contact Dr. Sanderson and informed him that an ultrasound was not obtained because she ate hamburger prior to arrival. Recommendation is admission. Case was discussed with Dr. Sanderson. He is concerned this may represent hepatitis and requested admission to the hospitalist service with consultation to him. Disposition: To be admitted to the hospital for further testing to determine cause of right upper quadrant pain elevated ALT and AST. Impression: Acute right upper quadrant abdominal pain with elevated ALT and AST with nausea and vomiting History of COPD History of GERD History of hypercholesterolemia History of hepatitis History of bipolar affective disorder This note was generated with [employer] dictation software. It may contain incorrect words, spelling, and punctuation that were not noted in review of the chart prior to signing ED Disposition - Plan for ED Patient: Chief Complaint: Abd Pain Referrals: Esperanza Baird MD [Primary Care Provider] -
--- NOTE | 2018-03-13 04:01 | HP.PCM_ITS ---
Problem List (1) Vitamin D deficiency Status: Acute (2) Bipolar disorder Status: Chronic Qualifiers: (3) COPD (chronic obstructive pulmonary disease) Status: Chronic Qualifiers: (4) Chronic back pain Status: Chronic (5) Dissociative identity disorder Status: Chronic (6) GERD (gastroesophageal reflux disease) Status: Chronic (7) Transaminitis Status: Acute (8) Cholecystitis Status: Acute History of Present Illness Date of Admission: 03/13/18 Chief Complaint: RUQ abdominal pain The patient is a 67 year old female w/ h/o COPD, GERD, lipidemia and hepatitis admitted for transaminitis. She had h/o abdominal pain secondary to greasy food. This morning around 9 AM, she had acute abdominal pain. Pain was sharp and constant. Nothing appeared to make it better or worse. Pain was associated with n/v. She had two bite of a hamburger this evening and vomited it up. She has no other complaint. Past Medical History Past Medical History (Chronic Problems): Chronic Problems (Last Reviewed 02/04/18 @ 13:45 by Candy Davenport) Dissociative identity disorder (Chronic) Seizure (Chronic) GERD (gastroesophageal reflux disease) (Chronic) Hyperlipidemia (Chronic) Hepatitis (Chronic) Osteopenia (Chronic) Chronic back pain (Chronic) Rheumatoid arthritis (Chronic) COPD (chronic obstructive pulmonary disease) (Chronic) Manic depressive disorder (Chronic) Hypertension (Chronic) Tobacco abuse (Chronic) Noncompliance (Chronic) Bipolar disorder (Chronic) Opioid dependence (Chronic) Allergies lurasidone [From Latuda] Allergy (Verified 03/13/18 00:15) Other naproxen Allergy (Verified 03/13/18 00:15) Hives paliperidone [From Invega] Allergy (Verified 03/13/18 00:15) increased psychiatric symptoms trazodone Allergy (Verified 03/13/18 00:15) Other theophylline Adverse Reaction (Verified 03/13/18 00:15) Other SLOBID Adverse Reaction (Uncoded 03/13/18 00:15) Other Home Medications: Ambulatory Orders Medication Instructions Recorded Lisinopril [Zestril] 20 mg PO DAILY 03/24/17 Divalproex (ER) [Depakote ER] 500 mg PO BID 06/20/17 Pravastatin [Pravachol] 40 mg PO QHS 12/18/17 Buprenorphine HCl/Naloxone HCl 2 ea SL DAILY 12/24/17 [Suboxone 8 mg-2 mg Sl Film] benztropine 0.5 mg tablet 0.5 mg PO BID 01/06/18 calcium carbonate 600 mg calcium 600 mg PO BID #60 tab 01/06/18 (1,500 mg) tablet cholecalciferol (vitamin D3) 50,000 unit PO QWEEK #8 cap 01/06/18 50,000 unit capsule olanzapine 10 mg tablet 10 mg PO QHS tab 01/06/18 pantoprazole 20 mg tablet,delayed 20 mg PO QDAY 01/06/18 release dextromethorphan-guaifenesin ER 60 1 tab PO Q12H #20 tab 01/13/18 mg-1,200 mg tab,extend release,12hr lidocaine 5 % topical patch 1 patch TOPICAL Q24H PRN #30 ea 01/14/18 clonidine HCl 0.1 mg tablet 0.1 mg PO TID #90 tab 03/11/18 hydralazine 50 mg tablet 50 mg PO TID #90 tab 03/11/18 metoprolol tartrate 25 mg tablet 25 mg PO DAILY #30 tab 03/11/18 Surgical History: hysterectomy, - - C-sections, hernia repair. 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 Denies: Head Aches, Sinus Congestion, Sinus Drainage Cardiovascular: Denies: Chest Pain, Palpitations Respiratory: Denies: Cough, Shortness of breath at rest, Sputum production Gastrointestinal: Reports: Abdominal Pain, Nausea, Vomiting Genitourinary: Denies: Dysuria Musculoskeletal: Denies: Joint Pain, Joint Tenderness Skin: Denies: Rash, Wounds Neurological: Denies: Numbness, Tingling, Focal weakness Psychiatric: Denies: Anxiety, Depression, Homicidal Ideations, Suicidal Ideations Hematologic/ Lymphatic: Denies: Easy Bruising, Easy Bleeding VTE Information - Inpt Only VTE Present on Admission: No VTE Mechan Device Prophylaxis: SCD's VTE Pharm Prophylaxis ordered?: Yes Patient Problems: Active and Suspected Problems (Last Reviewed 02/04/18 @ 13:45 by Candy Davenport) Transaminitis (Acute) Cholecystitis (Acute) - Physical Exam General: Alert, Oriented x3, Cooperative HEENT: Atraumatic, PERRLA, EOMI, Normocephalic Neck: Supple, No JVD, Negative Carotid Bruits Lungs: Clear to auscultation, Normal air movement Cardiovascular: Regular rate, No murmurs Abdomen: Bowel Sounds Present, Soft, Tender Extremities: No edema, Capillary Refill Less than 3 Seconds Skin: No rashes, No breakdown Musculoskeletal: No Tenderness to Palpation of Joints or Extremities Neurological: Cranial nerves II-XII grossly intact Psych/Mental Status: Normal Affect, Appropriate Vital Signs Temp Pulse Resp BP Pulse Ox 98.1 F 75 18 213/109 H 99 03/13/18 00:13 03/13/18 00:13 03/13/18 00:13 03/13/18 00:13 03/13/18 00:13 Weight: 72.575 kg Body Mass Index (BMI) 31.2 Finger Stick Blood Glucose 161 Laboratory Tests Past 24 Hrs 03/13/18 03/13/18 00:55 00:55 WBC 12.0 H RBC 4.76 Hgb 14.6 Hct 44.5 MCV 93.5 MCH 30.7 MCHC 32.8 RDW 13.4 RDW Differential 46.0 H Plt Count 521 H MPV 9.3 Immature Gran % (Auto) 1.000 H Neut % (Auto) 72.6 H Lymph % (Auto) 17.6 L Alfalfa % (Auto) 7.6 Eos % (Auto) 0.9 Baso % (Auto) 0.3 Absolute Neuts (auto) 8.7 H Absolute Lymphs (auto) 2.11 Total Counted Not Reportable Sodium 138 Potassium 4.3 Chloride 105 Carbon Dioxide 27.0 Anion Gap 6 BUN 14 Creatinine 0.74 Estim Creat Clear Calc 54.44 Est GFR (MDRD) Af Amer 101 Est GFR (MDRD) Non-Af 83 BUN/Creatinine Ratio 18.8 Glucose 127 H Calcium 9.3 Total Bilirubin 1.40 H Direct Bilirubin 0.63 H AST 955 H ALT 839 H Alkaline Phosphatase 374 H Total Protein 7.8 Albumin 3.5 Globulin 4.3 H Lipase 123 Assessment/Plan Active and Suspected Problems (Last Reviewed 02/04/18 @ 13:45 by Candy Davenport) Transaminitis (Acute) Cholecystitis (Acute) 67 year old female w/ h/o COPD, GERD, lipidemia and hepatitis admitted for transaminitis. 1) Transaminitis: Concerning for cholecystitis. Will get RUQ US. Will follow liver profile. Consulted surgery. Will also r/o other etiologies. Will get hepatitis panel, RAFAEL, and ANCA. 2) Chronic pain: Will resume home meds. Monitor. 3) COPD: No e/o acute exacerbation. Resume home meds. Monitor.
[2018-03-13] MEDS: cloNIDine HCl 0.1 MG Tablet PO ×3 (05:09→21:29)
[2018-03-13] MEDS: hydrALAZINE 50 MG Tablet PO ×3 (05:10→21:29)
[2018-03-13] MEDS: Heparin Injection (Vial) 5,000 UNIT/ML VIAL 5000 UNIT SC ×2 (05:12→13:12)
--- NOTE | 2018-03-13 05:55 | US_ITS ---
STUDY: ABDOMINAL ULTRASOUND - RIGHT UPPER QUADRANT REASON FOR VISIT: Female, 67 years old. Pain, right upper quadrant pain, elevated LFTs TECHNIQUE: Ultrasound evaluation of the right upper quadrant was performed with real-time and static steele-scale imaging. TECHNICAL QUALITY: Adequate. COMPARISON: CT scan chest June 20, 2017, ultrasound July 04, 2013 FINDINGS: Liver: The liver measures 10.4 cm. There is normal echogenicity of the liver. There is borderline intrahepatic ductal dilatation. There is hepatic color flow. The direction of portal flow is hepatopetal. There is no demonstrated mass lesion. Gallbladder: Normal distended gallbladder. The gallbladder wall measures 4.4 mm. There is a negative sonographic Valiente's sign. There is pericholecystic fluid. There is a small amount of sludge within the gallbladder. There is a small echogenic structure without significant shadowing measuring 7.0 mm. Common Bile Duct (C.B.D.): The common bile duct measures 6 mm. Pancreas: Normal size of the head, body of the pancreas. There is normal echogenicity of the pancreas. There is no demonstrated pancreatic mass or cyst. History states distention of the pancreatic duct. The tail the pancreas is not well-visualized. Right Kidney: Normal size of the right kidney. The right kidney measures 12.5 x 5.0 x 4.4 cm. Normal renal cortex. The right cortex measures 1.6 cm. There is a right renal cyst measuring 1.1 x 1.0 x 0.6 cm. There is no right hydronephrosis. US/Gallbladder IMPRESSION: Gallbladder Wall thickening, pericholecystic fluid, sludge, there is borderline common duct distention cholelithiasis/sludge. This constellation of findings is associated with acute cholecystitis in the appropriate clinical setting. Sonographic Valiente sign is not described as positive or negative. The differential for wall thickening can be associated with underlying hepatic disease. Benign-appearing right renal cyst N.B. : The above information has been verbally conveyed by Oxana Wagoner MD to DR. Parikh, Covering Physician, on 03/13/2018 10:04:06 (ET). Electronically Signed: Oxana Wagoner MD at 9:43 EDT Tel , Service support , N.B. : The above information has been verbally conveyed by Oxana Wagoner MD to DR. Parikh, Covering Physician, on 03/13/2018 10:04:06 (ET).
[2018-03-13 06:41] LABS: Absolute Lymphocyte Count 0.67 X10^3/ul (0.83-4.51); Absolute Neutrophil Count 13.5 X10^3/uL (2.0-7.7); Basophil# 0.01 X10^3/uL; Basophil% 0.1 % (0-1); Eosinophil# 0.01 X10^3/uL; Eosinophils% 0.1 % (0-5); Hematocrit 41.3 % (37-47); Hemoglobin 13.5 g/dl (12.0-15.0); Lymphocyte # 0.67 X10^3/ul (4.0); Lymphocyte % 4.3 % (19-41); Mean Corp Hgb Conc 32.7 g/gl (32-36); Mean Corpuscular Hgb 30.7 pg (27.0-32.0); Mean Corpuscular Volume 93.9 fL (81-99); Mean Platelet Vol. 9.6 fl (6.2-12.0); Monocyte# 1.21 X10^3/uL; Monocyte% 7.8 % (0-10); Neutrophil # 13.53 X10^3/uL (2.7-7.7); Neutrophil % 87.1 % (47-70); Platelet Count 529 K/mm3 (150-450); RBC Distribution Width CV 13.4 % (11.6-14.6); RBC Distribution Width SD 44.5 fl (35.1-43.9); White Blood Count 15.5 K/mm3 (4.4-11.0)
[2018-03-13 06:50] LABS: POSITIVE COUNT NO; POSITIVE DIFFERENTIAL NO; POSITIVE MORPHOLOGY NO
[2018-03-13 07:06] LABS: Anion Gap 7 (5-15); BUN 12 mg/dL (7-18); BUN/Creat Ratio 17.2 RATIO (10-20); Calcium,Total 8.8 mg/dL (8.5-10.1); Chloride 101 mmol/L (98-107); EST Glomerular Filtration Rate 89 mL/min (>60); Est Glom Filt Rate - Afr Amer 108 mL/min (>60); Estimated Creatinine Clearance 57.55 ml/min; Glucose 101 mg/dL (74-106); Potassium 4.2 mmol/L (3.5-5.1); Sodium Level 135 mmol/L (136-145)
--- NOTE | 2018-03-13 08:30 | CT_ITS ---
STUDY: CT ABDOMEN AND PELVIS WITH AND WITHOUT CONTRAST REASON FOR EXAM: Female, 67 years old. Right upper quadrant pain RADIATION DOSAGE (If Supplied By Facility): CTDIvol = ( 17.26 ) mGy, DLP = ( 1357.29 ) mGycm TECHNIQUE: Transaxial images were obtained from the dome of the diaphragm to the symphysis pubis without oral contrast. 100mL ml of Isovue 300 contrast was administered. Sagittal and coronal images were reconstructed. Individualized dose optimization techniques were used for this CT. COMPARISON: Limited comparison to CT chest dated June 20, 2017 FINDINGS: There is a calcified granuloma in the right lower lobe. There is visualized coronary calcification. The liver is borderline enlarged and fatty infiltrated. There is a thick walled appearance of the gallbladder with pericholecystic fluid. The common duct measures up to 6.7 mm. There are multiple benign calcified granulomata of the spleen. Normal pancreas. Normal bilateral adrenal glands. There is a benign-appearing right renal cyst measuring 6.7 x 9.5 mm. Normal left kidney. There is a minimal hiatal hernia. Normal small intestine. There is contrast within the stomach and small bowel without evidence of obstruction. There is diverticulosis of the colon without evidence of diverticulitis. The appendix is visualized and appears normal. The aorta is partially calcified. Normal inferior vena cava. Normal retroperitoneum. Normal urinary bladder. There is absence of the uterus consistent with a prior hysterectomy. There is a small umbilical hernia containing fat. There is slight anterolisthesis of L4 on L5. There is a broad disc bulge at L4-L5 with moderate neural foraminal narrowing without central stenosis facet arthropathy. At L5-S1 is a left lateral disc osteophyte with moderate left neural foraminal narrowing. There is facet arthropathy. There is degenerative change of the SI joints. CT/CT Abd/Pelvis W/WO Contrast IMPRESSION: Findings are highly suspicious for acute cholecystitis. This is concordant with the recent ultrasound findings showing the same. Hepatic steatosis. 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 Distention of the common duct is 6.7 mm Benign appearing right renal cyst. Diverticulosis without diverticulitis. Electronically Signed: Oxana Wagoner MD at 11:42 EDT Tel , Service support ,
[2018-03-13] MEDS: Pantoprazole Sodium 20 MG Tablet PO (08:58)
[2018-03-13] MEDS: guaiFENesin/D-Methorphan TAB.SR.12H 1 TABLET PO ×2 (09:00→21:28)
[2018-03-13] MEDS: Benztropine 2 MG Tablet 0.5 MG PO ×2 (09:01→21:29)
[2018-03-13] MEDS: Divalproex (ER) 250 MG Tablet 500 MG PO ×2 (09:02→21:29)
[2018-03-13] MEDS: Metoprolol Tartrate 25 MG Tablet PO (09:02)
[2018-03-13] MEDS: Lisinopril 20 MG Tablet PO (09:03)
[2018-03-13 09:08] LABS: Amphetamine Urine VISTA NEGATIVE (<1000 ng/mL); Barbiturate Urine VISTA NEGATIVE (< 200 ng/mL); Benzodiazepine Urine VISTA NEGATIVE (< 200 ng/mL); Cocaine Urine VISTA NEGATIVE (< 300 ng/mL); Ecstacy Urine VISTA NEGATIVE (< 500 ng/mL); Methadone Urine VISTA NEGATIVE (< 300 ng/mL); PCP Urine VISTA NEGATIVE (< 25 ng/mL); THC Urine VISTA NEGATIVE (< 50 ng/mL); Vista UDS pH Range 7
[2018-03-13 09:30] LABS: AST(SGOT) 823 U/L (15-37); Alanine Aminotransfer ALT/SGPT 945 U/L (13-56); Albumin, Serum 3.2 g/dL (3.2-5.0); Alkaline Phosphatase 389 U/L (45-117); Bilirubin, Direct 2.01 mg/dL (0.00-0.30); Globulin 3.9 g/dL (2.2-4.2); Lipase 74 U/L (73-393); Protein, Total 7.1 g/dL (6.4-8.2)
--- NOTE | 2018-03-13 10:45 | PCM.PN.HOSP ---
Patient Problems: Active and Suspected Problems (Last Reviewed 02/04/18 @ 13:45 by Candy Davenport) Transaminitis (Acute) Cholecystitis (Acute) Subjective: 67-year-old female with a history of COPD, GERD, hyperlipidemia and remote history of hepatitis in childhood. She was admitted with a complaint of abdominal pain which started just prior to eating and was exacerbated after she ate some cheeseburger. Pain was sharp and constant and mainly located in the right upper quadrant. She had associated nausea and vomiting. Labs showed elevated transaminitis and she was admitted and is being managed for possible acute cholecystitis. She has remained stable. In examined. She is concerned about the fact that she has not been on a Suboxone which is been taking for 3 years. She denies any fever or chills, abdominal pain is much better. She denies any shortness of breath, cough, chest pain, diarrhea vomiting. Review of systems otherwise negative. Vitals/I&O's: Vital Signs Temp Pulse Resp BP Pulse Ox 99.6 F H 92 16 174/93 H 98 03/13/18 04:32 03/13/18 09:02 03/13/18 04:32 03/13/18 05:10 03/13/18 04:32 Oxygen Delivery Method Room Air Weight: 167 lb Body Mass Index (BMI) 32.5 General: Alert, Oriented x3, Cooperative, No apparent distress HEENT: Atraumatic, PERRLA, EOMI, Normocephalic Oral: Moist Mucosa Neck: Supple, No JVD, Negative Carotid Bruits Lungs: Clear to auscultation, Normal air movement Cardiovascular: Regular rate, Regular Rhythm, Normal S1, Normal S2, No murmurs Abdomen: Bowel Sounds Present, Soft, No Hepato-splenomegaly, - - Mild right upper quadrant tenderness. Valiente sign is negative. No guarding or rebound tenderness. Extremities: No edema, Capillary Refill Less than 3 Seconds, No Calf Tenderness, Cool Skin: No rashes, No breakdown Musculoskeletal: No Tenderness to Palpation of Joints or Extremities Lymphatic: No Cervical, Supraclavicular, or Inguinal Adenopathy Neurological: Cranial nerves II-XII grossly intact Psych/Mental Status: Normal Affect, Appropriate, Alert and oriented to time, place, person, mood and affect Laboratory Results 03/13/18 06:06: Hepatitis A IgM Ab Pending, Hep Bs Antigen Pending, Hep B Core IgM Ab Pending, Hepatitis C Ab (EIA) Pending 03/13/18 06:06: RAFAEL Screen Pending, ALEXIA-1 Antibody Pending, SS-A/Ro IgG Antibody Pending, SS-B/La IgG Antibody Pending, Sm (Turk) Antibody Pending, EGG TRAYER Antibody Pending, Scl-70 Scleroderma Ab Pending, Double Strand DNA Ab Pending, Centromere B Antibody Pending 03/13/18 06:06: c-ANCA Antibody Pending, p-ANCA Antibody Pending 03/13/18 06:06: Sodium 135 L, Potassium 4.2, Chloride 101, Carbon Dioxide 27.0, Anion Gap 7, BUN 12, Creatinine 0.70, Estim Creat Clear Calc 57.55, Est GFR (MDRD) Af Amer 108, Est GFR (MDRD) Non-Af 89, BUN/Creatinine Ratio 17.2, Glucose 101, Calcium 8.8 03/13/18 06:06: WBC 15.5 H, RBC 4.40, Hgb 13.5, Hct 41.3, MCV 93.9, MCH 30.7, MCHC 32.7, RDW 13.4, RDW Differential 44.5 H, Plt Count 529 H, MPV 9.6, Immature Gran % (Auto) 0.600, Neut % (Auto) 87.1 H, Lymph % (Auto) 4.3 L, [place] % (Auto) 7.8, Eos % (Auto) 0.1, Baso % (Auto) 0.1, Absolute Neuts (auto) 13.5 H, Absolute Lymphs (auto) 0.67 L, Total Counted Not Reportable 03/13/18 08:35: Urine Opiates Screen NEGATIVE, Urine Methadone Screen NEGATIVE, Ur Barbiturates Screen NEGATIVE, Ur Phencyclidine Scrn NEGATIVE, Ur Amphetamines Screen NEGATIVE, U Methamphetamin-MDMA NEGATIVE, U Benzodiazepines Scrn NEGATIVE, Urine Cocaine Screen NEGATIVE, U Cannabinoids Screen NEGATIVE, Ur Drug Screen Comment 03/13/18 08:55: Total Bilirubin 2.70 H, Direct Bilirubin 2.01 H, AST 823 H, ALT 945 H, Alkaline Phosphatase 389 H, Total Protein 7.1, Albumin 3.2, Globulin 3.9, Lipase 74 03/13/18 08:55: Ammonia 24.0 Current Medications Benztropine Mesylate (Cogentin) 0.5 mg PO BID [facility] Last Admin: 03/13/18 09:01 Dose: 0.5 mg Calcium Carbonate (Os-Benjamin 500) 500 mg PO BID [facility] Last Admin: 03/13/18 09:02 Dose: Not Given Clonidine (Catapres) 0.1 mg PO TID [facility] Last Admin: 03/13/18 05:09 Dose: 0.1 mg Divalproex Sodium (Depakote Er) 500 mg PO BID [facility] Last Admin: 03/13/18 09:02 Dose: 500 mg Guaifenesin (Humibid Dm) 1 tablet PO Q12 [facility] Last Admin: 03/13/18 09:00 Dose: 1 tablet Heparin Sodium (Porcine) (Heparin Na) 5,000 unit SC Q8 [facility] Last Admin: 03/13/18 05:12 Dose: 5,000 units Hydralazine HCl (Apresoline) 50 mg PO TID [facility] Last Admin: 03/13/18 05:10 Dose: 50 mg Lisinopril (Zestril) 20 mg PO DAILY [facility] Last Admin: 03/13/18 09:03 Dose: 20 mg Magnesium Hydroxide (Milk Of Magnesia) 30 ml PO DAILY PRN PRN PRN Reason: Constipation Metoprolol Tartrate (Lopressor (Beta Shruti)) 25 mg PO DAILY [facility] Last Admin: 03/13/18 09:02 Dose: 25 mg Non-Formulary Medication (Buprenorphine Hcl/Naloxone Hcl) 2 ea SL DAILY [facility] Non-Formulary Medication (Cholecalciferol (Vitamin D3) [Vitamin D3]) 50,000 unit PO QWEEK [facility] Olanzapine (Zyprexa) 10 mg PO QHS [facility] Pantoprazole Sodium (Protonix) 20 mg PO DAILY [facility] Last Admin: 03/13/18 08:58 Dose: 20 mg Sodium Chloride () 5 - 30 ml IV UD PRN PRN Reason: SALINE FLUSH Medical Necessity - Tobacco Use Smoking Status: Current every day smoker Assessment/Plan Active and Suspected Problems (Last Reviewed 02/04/18 @ 13:45 by Candy Davenport) Transaminitis (Acute) Cholecystitis (Acute) This 7-year-old woman presented with a one-day history of right upper quadrant pain exacerbated by eating greasy food. 1. 1. Elevated liver enzymes admitted with right upper quadrant pain. Pain has improved significantly. Has negative Valiente sign on examination. Only has mild right upper quadrant tenderness on examination. White cell count is up to 15.5 from 12 on admission. Suspicion for acute cholecystitis is quite low in light of lack of fever and negative Valiente's sign and actually very minimal abdominal tenderness. However right upper quadrant ultrasound showed some gallbladder wall thickening with pericholecystic fluid and some biliary sludge but with negative sonographic Valiente sign. LFTs this morning showed a rise in total bilirubin to 2.7, AST/ALT 823/945; ALP up to 389. Ammonia is 24. Per discussion with Dr. Natarajan the surgeon, features are not very indicatoive of acute cholecystitis. In light of elevated AST and ALT relative to ALP, suspicion was mainly for possible acute viral hepatitis picture. Pancreatitis less likely due to normal amylase and lipase. Will cover with antibiotics (ceftriaxone) for now due to elevated white cell count, and history of fever and chills.. If liver enzymes trend upwards and patient is symptomatic tomorrow, per Dr. Natarajan will go for laparoscopic cholecystectomy. another possibility may be for ERCP with Dr. Vyas based on patient's presentation tomorrow. hepatitis panel pending. on zofran. WIll hydrate with IVF. 2. COPD: stable. continue breathing treatments prn 3. History of chemical dependency: on suboxone. We dont have suboxone in our formulary. Patient says nobody can bring her suboxone from home. Will consider giving buprenorphine. 4. Hypertension: on clonidine, hydralazine, lisinopril and metoprolol 5. DVT prophylaxis: currently on heparin. WIll check INR in light of deranged liver enzymes. 6. GI prophylaxis: PPI Code Visit Inpatient E&M: 20477 Subs Hosp L3
--- NOTE | 2018-03-13 11:00 | PN_ITS ---
Patient Problems: Active and Suspected Problems (Last Reviewed 02/04/18 @ 13:45 by Candy Davenport) Transaminitis (Acute) Cholecystitis (Acute) Subjective: 67-year-old female with a history of COPD, GERD, hyperlipidemia and remote history of hepatitis in childhood. She was admitted with a complaint of abdominal pain which started just prior to eating and was exacerbated after she ate some cheeseburger. Pain was sharp and constant and mainly located in the right upper quadrant. She had associated nausea and vomiting. Labs showed elevated transaminitis and she was admitted and is being managed for possible acute cholecystitis. She has remained stable. In examined. She is concerned about the fact that she has not been on a Suboxone which is been taking for 3 years. She denies any fever or chills, abdominal pain is much better. She denies any shortness of breath, cough, chest pain, diarrhea vomiting. Review of systems otherwise negative. Vitals/I&O's: Vital Signs Temp Pulse Resp BP Pulse Ox 99.6 F H 92 16 174/93 H 98 03/13/18 04:32 03/13/18 09:02 03/13/18 04:32 03/13/18 05:10 03/13/18 04:32 Oxygen Delivery Method Room Air Weight: 167 lb Body Mass Index (BMI) 32.5 General: Alert, Oriented x3, Cooperative, No apparent distress HEENT: Atraumatic, PERRLA, EOMI, Normocephalic Oral: Moist Mucosa Neck: Supple, No JVD, Negative Carotid Bruits Lungs: Clear to auscultation, Normal air movement Cardiovascular: Regular rate, Regular Rhythm, Normal S1, Normal S2, No murmurs Abdomen: Bowel Sounds Present, Soft, No Hepato-splenomegaly, - - Mild right upper quadrant tenderness. Valiente sign is negative. No guarding or rebound tenderness. Extremities: No edema, Capillary Refill Less than 3 Seconds, No Calf Tenderness , Cool Skin: No rashes, No breakdown Musculoskeletal: No Tenderness to Palpation of Joints or Extremities Lymphatic: No Cervical, Supraclavicular, or Inguinal Adenopathy Neurological: Cranial nerves II-XII grossly intact Psych/Mental Status: Normal Affect, Appropriate, Alert and oriented to time, place, person, mood and affect Laboratory Results 03/13/18 06:06: Hepatitis A IgM Ab Pending, Hep Bs Antigen Pending, Hep B Core IgM Ab Pending, Hepatitis C Ab (EIA) Pending 03/13/18 06:06: RAFAEL Screen Pending, ALEXIA-1 Antibody Pending, SS-A/Ro IgG Antibody Pending, SS-B/La IgG Antibody Pending, Sm (Turk) Antibody Pending, FIELD C[employer] MANAGER Antibody Pending, Scl-70 Scleroderma Ab Pending, Double Strand DNA Ab Pending, Centromere B Antibody Pending 03/13/18 06:06: c-ANCA Antibody Pending, p-ANCA Antibody Pending 03/13/18 06:06: Sodium 135 L, Potassium 4.2, Chloride 101, Carbon Dioxide 27.0, Anion Gap 7, BUN 12, Creatinine 0.70, Estim Creat Clear Calc 57.55, Est GFR ( MDRD) Af Amer 108, Est GFR (MDRD) Non-Af 89, BUN/Creatinine Ratio 17.2, Glucose 101, Calcium 8.8 03/13/18 06:06: WBC 15.5 H, RBC 4.40, Hgb 13.5, Hct 41.3, MCV 93.9, MCH 30.7, MCHC 32.7, RDW 13.4, RDW Differential 44.5 H, Plt Count 529 H, MPV 9.6, Immature Gran % (Auto) 0.600, Neut % (Auto) 87.1 H, Lymph % (Auto) 4.3 L, [place] % (Auto) 7.8, Eos % (Auto) 0.1, Baso % (Auto) 0.1, Absolute Neuts (auto) 13.5 H , Absolute Lymphs (auto) 0.67 L, Total Counted Not Reportable 03/13/18 08:35: Urine Opiates Screen NEGATIVE, Urine Methadone Screen NEGATIVE, Ur Barbiturates Screen NEGATIVE, Ur Phencyclidine Scrn NEGATIVE, Ur Amphetamines Screen NEGATIVE, U Methamphetamin-MDMA NEGATIVE, U Benzodiazepines Scrn NEGATIVE, Urine Cocaine Screen NEGATIVE, U Cannabinoids Screen NEGATIVE, Ur Drug Screen Comment 03/13/18 08:55: Total Bilirubin 2.70 H, Direct Bilirubin 2.01 H, AST 823 H, ALT 945 H, Alkaline Phosphatase 389 H, Total Protein 7.1, Albumin 3.2, Globulin 3.9 , Lipase 74 03/13/18 08:55: Ammonia 24.0 Current Medications Benztropine Mesylate (Cogentin) 0.5 mg PO BID [facility] Last Admin: 03/13/18 09:01 Dose: 0.5 mg Calcium Carbonate (Os-Benjamin 500) 500 mg PO BID [facility] Last Admin: 03/13/18 09:02 Dose: Not Given Clonidine (Catapres) 0.1 mg PO TID [facility] Last Admin: 03/13/18 05:09 Dose: 0.1 mg Divalproex Sodium (Depakote Er) 500 mg PO BID [facility] Last Admin: 03/13/18 09:02 Dose: 500 mg Guaifenesin (Humibid Dm) 1 tablet PO Q12 [facility] Last Admin: 03/13/18 09:00 Dose: 1 tablet Heparin Sodium (Porcine) (Heparin Na) 5,000 unit SC Q8 [facility] Last Admin: 03/13/18 05:12 Dose: 5,000 units Hydralazine HCl (Apresoline) 50 mg PO TID [facility] Last Admin: 03/13/18 05:10 Dose: 50 mg Lisinopril (Zestril) 20 mg PO DAILY [facility] Last Admin: 03/13/18 09:03 Dose: 20 mg Magnesium Hydroxide (Milk Of Magnesia) 30 ml PO DAILY PRN PRN PRN Reason: Constipation Metoprolol Tartrate (Lopressor (Beta Shruti)) 25 mg PO DAILY [facility] Last Admin: 03/13/18 09:02 Dose: 25 mg Non-Formulary Medication (Buprenorphine Hcl/Naloxone Hcl) 2 ea SL DAILY [facility] Non-Formulary Medication (Cholecalciferol (Vitamin D3) [Vitamin D3]) 50,000 unit PO QWEEK [facility] Olanzapine (Zyprexa) 10 mg PO QHS [facility] Pantoprazole Sodium (Protonix) 20 mg PO DAILY [facility] Last Admin: 03/13/18 08:58 Dose: 20 mg Sodium Chloride () 5 - 30 ml IV UD PRN PRN Reason: SALINE FLUSH Medical Necessity - Tobacco Use Smoking Status: Current every day smoker Assessment/Plan Active and Suspected Problems (Last Reviewed 02/04/18 @ 13:45 by Candy Davenport) Transaminitis (Acute) Cholecystitis (Acute) This 7-year-old woman presented with a one-day history of right upper quadrant pain exacerbated by eating greasy food. 1. 1. Elevated liver enzymes * admitted with right upper quadrant pain. Pain has improved significantly. * Has negative Valiente sign on examination. Only has mild right upper quadrant tenderness on examination. * White cell count is up to 15.5 from 12 on admission. Suspicion for acute cholecystitis is quite low in light of lack of fever and negative Valiente's sign and actually very minimal abdominal tenderness. * However right upper quadrant ultrasound showed some gallbladder wall thickening with pericholecystic fluid and some biliary sludge but with negative sonographic Valiente sign. * LFTs this morning showed a rise in total bilirubin to 2.7, AST/ALT 823/945; ALP up to 389. * Ammonia is 24. * Per discussion with Dr. Natarajan the surgeon, features are not very indicatoive of acute cholecystitis. In light of elevated AST and ALT relative to ALP, suspicion was mainly for possible acute viral hepatitis picture. * Pancreatitis less likely due to normal amylase and lipase. * Will cover with antibiotics (ceftriaxone) for now due to elevated white cell count, and history of fever and chills.. If liver enzymes trend upwards and patient is symptomatic tomorrow, per Dr. Natarajan will go for laparoscopic cholecystectomy. another possibility may be for ERCP with Dr. Vyas based on patient's presentation tomorrow. * hepatitis panel pending. * on zofran. WIll hydrate with IVF. * 2. COPD: stable. continue breathing treatments prn 3. History of chemical dependency: on suboxone. We dont have suboxone in our formulary. Patient says nobody can bring her suboxone from home. Will consider giving buprenorphine. 4. Hypertension: on clonidine, hydralazine, lisinopril and metoprolol 5. DVT prophylaxis: currently on heparin. WIll check INR in light of deranged liver enzymes. 6. GI prophylaxis: PPI Code Visit Inpatient E&M: 89952 Subs Hosp L3
--- NOTE | 2018-03-13 11:09 | NURSING ---
to ct scan at approx 1100 after drinking oral contrast
--- NOTE | 2018-03-13 11:12 | CON.PCM_ITS ---
Reason for Consult Date of Consultation: 03/13/18 History of Present Illness: The patient is a 67 year old F presents with a 1 day history of upper abdominal pain. the patient presented emerged from an overnight and had complaints which are felt to be possibly consistent with biliary colic. She noted abdominal pain which onset earlier in the day. She then had a hamburger and following that her pain was worse.she did vomit after eating a hamburger. When she presented to the emergency department she was complaining of a feeling of diaphoresis but denied fever or chills. She noted no change in her bowel habits or other difficulties. In the emergency department, she underwent a KUB which demonstrated no specific abnormalities. Her white blood cell count was mildly elevatedat 12,000. Her AST. Her AST/transaminases were significantly elevated in the 900 range. Her alkaline phosphatase and bilirubin were just mildly elevated. Lipase was obtained and this was not elevated. I was contacted with concern of possible cholecystitis. The patient was admitted with plans for ultrasound to be obtained in the morning. The patient is a complicated past history medical history. She has a previous history of significant drug abuse. She states she has been clean for some time. Patient states she was diagnosed with hepatitis at the age of 10 because when she was a child doctors did not have disposable needles and syringes. she has a previous titer that demonstrates positivity for hepatitis B, but then additional serum studies are negative in the [facility] system. the patient's previous history includes cocaine addiction. She has a degree of COPD. She continues to smoke. She has a previous history of epilepsy with seizures. She has high blood pressure, depression, arthritis, reflux and constipation issues in addition to bipolar affective disorder and chronic back pain. The patient said previous hernia repairs. She had 3 sections and then the hysterectomy, I recall. she then had in 1997, an incisional hernia repair, I understand that the Pfannenstiel incision site. as I'm evaluating the patient this morning. She overall states that she is relatively comfortable with minimal pain currently. The technologist is currently performing the ultrasound at the bedside. There appears to be sludge or possibly 1 stone in the gallbladder. The gallbladder wall to me did not appear specifically thickened, but there was some cholecystic fluid. Interestingly enough, she had a negative Valiente sign on ultrasound and was nontender in the area to my exam. There was a suggestion of intrahepatic ductal dilatation, even though the common bile duct did not seem specifically dilated and there was a question of a dilated pancreatic duct. Repeat laboratory studies this morning demonstrated an elevated white blood cell count now of 15,000. Her bilirubin is increased to 2.7. Past Medical History Past Medical History (Chronic Problems): Chronic Problems (Last Reviewed 02/04/18 @ 13:45 by Candy Davenport) Dissociative identity disorder (Chronic) Seizure (Chronic) GERD (gastroesophageal reflux disease) (Chronic) Hyperlipidemia (Chronic) Hepatitis (Chronic) Osteopenia (Chronic) Chronic back pain (Chronic) Rheumatoid arthritis (Chronic) COPD (chronic obstructive pulmonary disease) (Chronic) Manic depressive disorder (Chronic) Hypertension (Chronic) Tobacco abuse (Chronic) Noncompliance (Chronic) Bipolar disorder (Chronic) Opioid dependence (Chronic) Allergies lurasidone [From Latuda] Allergy (Verified 03/13/18 00:15) Other naproxen Allergy (Verified 03/13/18 00:15) Hives paliperidone [From Invega] Allergy (Verified 03/13/18 00:15) increased psychiatric symptoms trazodone Allergy (Verified 03/13/18 00:15) Other theophylline Adverse Reaction (Verified 03/13/18 00:15) Other SLOBID Adverse Reaction (Uncoded 03/13/18 00:15) Other Home Medications: Ambulatory Orders Medication Instructions Recorded Lisinopril [Zestril] 20 mg PO DAILY 03/24/17 Divalproex (ER) [Depakote ER] 500 mg PO BID 06/20/17 Pravastatin [Pravachol] 40 mg PO QHS 12/18/17 Buprenorphine HCl/Naloxone HCl 2 ea SL DAILY 12/24/17 [Suboxone 8 mg-2 mg Sl Film] benztropine 0.5 mg tablet 0.5 mg PO BID 01/06/18 calcium carbonate 600 mg calcium 600 mg PO BID #60 tab 01/06/18 (1,500 mg) tablet cholecalciferol (vitamin D3) 50,000 unit PO QWEEK #8 cap 01/06/18 50,000 unit capsule olanzapine 10 mg tablet 10 mg PO QHS tab 01/06/18 pantoprazole 20 mg tablet,delayed 20 mg PO QDAY 01/06/18 release clonidine HCl 0.1 mg tablet 0.1 mg PO TID #90 tab 05/24/18 hydralazine 50 mg tablet 50 mg PO TID #90 tab 03/11/18 metoprolol tartrate 25 mg tablet 25 mg PO DAILY #30 tab 03/11/18 Surgical History: hysterectomy, - - C-sections - 3, abdominal hysterectomy, hernia repair with mesh?. Psychiatric History: Anxiety, Bipolar, Depression [employer] History: No pertinent [employer] SAL[employer]GER history Smoking Status: Current every day smoker - *Family History Maternal History Items: No pertinent history Paternal History Items: No pertinent history Sibling History Items: Cancer Review of Systems Constitutional: Reports: Anorexia. Denies: Chills, Fever, Weight Change HEENT: Denies: Head Aches, Sinus Congestion, Sinus Drainage Cardiovascular: Denies: Chest Pain, Palpitations Respiratory: Denies: Cough, Shortness of breath at rest, Sputum production Gastrointestinal: Reports: Abdominal Pain, Nausea, Vomiting Genitourinary: Denies: Dysuria Musculoskeletal: Denies: Joint Pain, Joint Tenderness Skin: Denies: Rash, Wounds Neurological: Denies: Numbness, Tingling, Focal weakness Psychiatric: Denies: Anxiety, Depression, Homicidal Ideations, Suicidal Ideations Hematologic/ Lymphatic: Denies: Easy Bruising, Easy Bleeding Patient Problems: Active and Suspected Problems (Last Reviewed 02/04/18 @ 13:45 by Candy Davenport) Transaminitis (Acute) Cholecystitis (Acute) - Physical Exam General: Alert, Oriented x3, Cooperative Lungs: Clear to auscultation, Normal air movement Cardiovascular: Regular rate, Regular Rhythm Abdomen: Bowel Sounds Present, Soft, Non Tender - the right upper quadrant with a negative Valiente sign, mildly tender in the epigastrium over the area of the pancreas Vital Signs Temp Pulse Resp BP Pulse Ox 99.6 F H 92 16 174/93 H 98 03/13/18 04:32 03/13/18 09:02 03/13/18 04:32 03/13/18 05:10 03/13/18 04:32 Oxygen Delivery Method Room Air Weight: 75.75 kg Body Mass Index (BMI) 32.5 Laboratory Tests Past 24 Hrs 03/13/18 03/13/18 03/13/18 06:06 06:06 06:06 WBC RBC Hgb Hct MCV MCH MCHC RDW RDW Differential Plt Count MPV Immature Gran % (Auto) Neut % (Auto) Lymph % (Auto) [place] % (Auto) Eos % (Auto) Baso % (Auto) Absolute Neuts (auto) Absolute Lymphs (auto) Total Counted Sodium Potassium Chloride Carbon Dioxide Anion Gap BUN Creatinine Estim Creat Clear Calc Est GFR (MDRD) Af Amer Est GFR (MDRD) Non-Af BUN/Creatinine Ratio Glucose Calcium Total Bilirubin Direct Bilirubin AST ALT Alkaline Phosphatase Ammonia Total Protein Albumin Globulin Lipase Urine Opiates Screen Urine Methadone Screen Ur Barbiturates Screen Ur Phencyclidine Scrn Ur Amphetamines Screen U Methamphetamin-MDMA U Benzodiazepines Scrn Urine Cocaine Screen U Cannabinoids Screen Ur Drug Screen Comment RAFAEL Screen Pending c-ANCA Antibody Pending p-ANCA Antibody Pending ALEXIA-1 Antibody Pending SS-A/Ro IgG Antibody Pending SS-B/La IgG Antibody Pending Sm (Turk) Antibody Pending PATIENT FLOW COORDINATOR Antibody Pending Scl-70 Scleroderma Ab Pending Double Strand DNA Ab Pending Centromere B Antibody Pending Hepatitis A IgM Ab Pending Hep Bs Antigen Pending Hep B Core IgM Ab Pending Hepatitis C Ab (EIA) Pending 03/13/18 03/13/18 03/13/18 06:06 06:06 08:35 WBC 15.5 H RBC 4.40 Hgb 13.5 Hct 41.3 MCV 93.9 MCH 30.7 MCHC 32.7 RDW 13.4 RDW Differential 44.5 H Plt Count 529 H MPV 9.6 Immature Gran % (Auto) 0.600 Neut % (Auto) 87.1 H Lymph % (Auto) 4.3 L [place] % (Auto) 7.8 Eos % (Auto) 0.1 Baso % (Auto) 0.1 Absolute Neuts (auto) 13.5 H Absolute Lymphs (auto) 0.67 L Total Counted Not Reportable Sodium 135 L Potassium 4.2 Chloride 101 Carbon Dioxide 27.0 Anion Gap 7 BUN 12 Creatinine 0.70 Estim Creat Clear Calc 57.55 Est GFR (MDRD) Af Amer 108 Est GFR (MDRD) Non-Af 89 BUN/Creatinine Ratio 17.2 Glucose 101 Calcium 8.8 Total Bilirubin Direct Bilirubin AST ALT Alkaline Phosphatase Ammonia Total Protein Albumin Globulin Lipase Urine Opiates Screen NEGATIVE Urine Methadone Screen NEGATIVE Ur Barbiturates Screen NEGATIVE Ur Phencyclidine Scrn NEGATIVE Ur Amphetamines Screen NEGATIVE U Methamphetamin-MDMA NEGATIVE U Benzodiazepines Scrn NEGATIVE Urine Cocaine Screen NEGATIVE U Cannabinoids Screen NEGATIVE Ur Drug Screen Comment RAFAEL Screen c-ANCA Antibody p-ANCA Antibody ALEXIA-1 Antibody SS-A/Ro IgG Antibody SS-B/La IgG Antibody Sm (Turk) Antibody PATIENT FLOW COORDINATOR Antibody Scl-70 Scleroderma Ab Double Strand DNA Ab Centromere B Antibody Hepatitis A IgM Ab Hep Bs Antigen Hep B Core IgM Ab Hepatitis C Ab (EIA) 03/13/18 03/13/18 08:55 08:55 WBC RBC Hgb Hct MCV MCH MCHC RDW RDW Differential Plt Count MPV Immature Gran % (Auto) Neut % (Auto) Lymph % (Auto) [place] % (Auto) Eos % (Auto) Baso % (Auto) Absolute Neuts (auto) Absolute Lymphs (auto) Total Counted Sodium Potassium Chloride Carbon Dioxide Anion Gap BUN Creatinine Estim Creat Clear Calc Est GFR (MDRD) Af Amer Est GFR (MDRD) Non-Af BUN/Creatinine Ratio Glucose Calcium Total Bilirubin 2.70 H Direct Bilirubin 2.01 H AST 823 H ALT 945 H Alkaline Phosphatase 389 H Ammonia 24.0 Total Protein 7.1 Albumin 3.2 Globulin 3.9 Lipase 74 Urine Opiates Screen Urine Methadone Screen Ur Barbiturates Screen Ur Phencyclidine Scrn Ur Amphetamines Screen U Methamphetamin-MDMA U Benzodiazepines Scrn Urine Cocaine Screen U Cannabinoids Screen Ur Drug Screen Comment RAFAEL Screen c-ANCA Antibody p-ANCA Antibody ALEXIA-1 Antibody SS-A/Ro IgG Antibody SS-B/La IgG Antibody Sm (Turk) Antibody PATIENT FLOW COORDINATOR Antibody Scl-70 Scleroderma Ab Double Strand DNA Ab Centromere B Antibody Hepatitis A IgM Ab Hep Bs Antigen Hep B Core IgM Ab Hepatitis C Ab (EIA) Assessment/Plan Active and Suspected Problems (Last Reviewed 02/04/18 @ 13:45 by Candy Davenport) Transaminitis (Acute) Cholecystitis (Acute) abdominal pain, questionable biliary colic, acute cholecystitis versus common duct stone versus atypical hepatitis picture. Given the patient's relatively complicated history, questionable history of hepatitis, and transaminases elevated out of proportion to alkaline phosphatase and bilirubin. Initially, I was more likely entertaining the possibilities of hepatitis picture. With the patient's now increased bilirubin and findings on the ultrasound from the others not a large amount of stones, cholecystitis is higher up on my differential. We'll others not significant ductal dilatation, there is a rapid increase in her bilirubin level. Again, the exact etiology is not specifically clear. Given the question of pancreatic ductal dilatation, and her tenderness of her pancreas. Even in the face of a normal lipase, I reviewed his CT scan of the abdomen pelvis to assure that I don't see any pancreatic abnormalities or other causes for her abnormalities. Additionally, the patient on previous admission had an elevated ammonia level, which has been concerned for underlying liver issues. The liver appeared smooth. On ultrasound, but I would like to obtain an CT scan. A second imaging modality to assure I don't see signs of early cirrhosis, portal hypertension, or other abnormalities which could be confused for pericholecystic fluid. If this is unremarkable, I would plan to repeat laboratory studies in the morning area did if the patient's clinical exam and studies and again more consistently with acute cholecystitis, I will then plan for laparoscopic cholecystectomy. If the patient's bilirubin continues to increase significantly. I would consider ERCP prior to laparoscopic cholecystectomy. I spoke with Dr. Raymond Vyas who is willing to evaluate the patient and would consider ERCP in the above scenario. I spoke with Dr. Parikh directly and we discussed the above findings. Given her elevated white blood cell count. I'm comfortable with starting somewhat empiric IV antibiotics.
[2018-03-13 12:41] LABS: International Normalized Ratio 1.2; Prothrombin Time (Protime)PT. 14.8 SECONDS (11.7-14.9)
[2018-03-13] MEDS: BUPRENORPHINE HCL 8 MG TAB.SUBL SL ×2 (13:08→21:29)
--- NOTE | 2018-03-13 13:15 | CM.UR ---
Met face to face with patient around 10:10am. Possible cholecystectomy. Son present at patient's bedside, he lives with her. Gets waiver aide 3x per week to help with academic director. Patient doesn't anticipate any additional/new needs at discharge. Case mgmt will remain available for any needs that may arise. Verb understanding. Susannah Ness RN, CCM.
[2018-03-13] MEDS: Ceftriaxone 1 GM/50 ML BAG IV (15:15)
--- NOTE | 2018-03-13 20:07 | PCM.CONS.GEN ---
Problem List (1) Obstructive jaundice Status: Acute (2) Cholecystitis Status: Acute Reason for Consult Date of Consultation: 03/13/18 Reason for Consultation: Elevated LFTs History of Present Illness: The patient is a 67 year old F who is here with right upper quadrant pain and nausea and vomiting. I was consulted by Dr. Sanderson for possible ERCP. The patient reports that yesterday evening she started having nausea and vomiting and right upper quadrant pain after eating a burger. She reports that she has had gastritis with extreme weight loss in the past. At the current time she does not report much abdominal pain. She does not describe any fevers or chills. Past Medical History Past Medical History (Chronic Problems): Chronic Problems (Last Reviewed 02/04/18 @ 13:45 by Candy Davenport) Dissociative identity disorder (Chronic) Seizure (Chronic) GERD (gastroesophageal reflux disease) (Chronic) Hyperlipidemia (Chronic) Hepatitis (Chronic) Osteopenia (Chronic) Chronic back pain (Chronic) Rheumatoid arthritis (Chronic) COPD (chronic obstructive pulmonary disease) (Chronic) Manic depressive disorder (Chronic) Hypertension (Chronic) Tobacco abuse (Chronic) Noncompliance (Chronic) Bipolar disorder (Chronic) Opioid dependence (Chronic) Allergies lurasidone [From Latuda] Allergy (Verified 03/13/18 00:15) Other naproxen Allergy (Verified 03/13/18 00:15) Hives paliperidone [From Invega] Allergy (Verified 03/13/18 00:15) increased psychiatric symptoms trazodone Allergy (Verified 03/13/18 00:15) Other theophylline Adverse Reaction (Verified 03/13/18 00:15) Other SLOBID Adverse Reaction (Uncoded 03/13/18 00:15) Other Home Medications: Ambulatory Orders Medication Instructions Recorded Lisinopril [Zestril] 20 mg PO DAILY 03/24/17 Divalproex (ER) [Depakote ER] 500 mg PO BID 06/20/17 Pravastatin [Pravachol] 40 mg PO QHS 12/18/17 Buprenorphine HCl/Naloxone HCl 2 ea SL DAILY 12/24/17 [Suboxone 8 mg-2 mg Sl Film] benztropine 0.5 mg tablet 0.5 mg PO BID 01/06/18 calcium carbonate 600 mg calcium 600 mg PO BID #60 tab 01/06/18 (1,500 mg) tablet cholecalciferol (vitamin D3) 50,000 unit PO QWEEK #8 cap 01/06/18 50,000 unit capsule olanzapine 10 mg tablet 10 mg PO QHS tab 01/06/18 pantoprazole 20 mg tablet,delayed 20 mg PO QDAY 01/06/18 release clonidine HCl 0.1 mg tablet 0.1 mg PO TID #90 tab 03/11/18 hydralazine 50 mg tablet 50 mg PO TID #90 tab 03/11/18 metoprolol tartrate 25 mg tablet 25 mg PO DAILY #30 tab 03/11/18 Surgical History: hysterectomy, - - C-sections - 3, abdominal hysterectomy, hernia repair with mesh?. 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 Smoking Status: Current every day smoker - *Family History Maternal History Items: No pertinent history Paternal History Items: No pertinent history Sibling History Items: Cancer Review of Systems Constitutional: Denies: Chills, Fever HEENT: Denies: Difficulty Swallowing Cardiovascular: Denies: Chest Pain Respiratory: Denies: Cough Gastrointestinal: Reports: Abdominal Pain, Nausea, Vomiting Genitourinary: Denies: Dysuria Musculoskeletal: Denies: Joint Tenderness Skin: Denies: Dryness Neurological: Denies: Balance problems Hematologic/ Lymphatic: Denies: Anemia Patient Problems: Active and Suspected Problems (Last Reviewed 02/04/18 @ 13:45 by Candy Davenport) Transaminitis (Acute) Cholecystitis (Acute) Obstructive jaundice (Acute) - Physical Exam General: Alert, Oriented x3, Cooperative, No apparent distress HEENT: Atraumatic, PERRLA, EOMI Oral: Moist Mucosa Neck: No JVD Lungs: Normal air movement Cardiovascular: Regular rate, Regular Rhythm Abdomen: Soft, Non-Distended, Tender - Mild tenderness to deep palpation of the right upper quadrant with no guarding or rebound. Extremities: No clubbing Skin: No rashes Musculoskeletal: No Muscle Wasting Neurological: Cranial nerves II-XII grossly intact Psych/Mental Status: Normal Affect Vital Signs Temp Pulse Resp BP Pulse Ox 98.4 F 72 18 108/66 94 03/13/18 16:23 03/13/18 16:23 03/13/18 16:23 03/13/18 16:23 03/13/18 16:23 Oxygen Delivery Method Room Air Weight: 167 lb Body Mass Index (BMI) 32.5 Laboratory Tests Past 24 Hrs 03/13/18 03/13/18 03/13/18 06:06 06:06 06:06 WBC RBC Hgb Hct MCV MCH MCHC RDW RDW Differential Plt Count MPV Immature Gran % (Auto) Neut % (Auto) Lymph % (Auto) [place] % (Auto) Eos % (Auto) Baso % (Auto) Absolute Neuts (auto) Absolute Lymphs (auto) Total Counted PT INR Sodium Potassium Chloride Carbon Dioxide Anion Gap BUN Creatinine Estim Creat Clear Calc Est GFR (MDRD) Af Amer Est GFR (MDRD) Non-Af BUN/Creatinine Ratio Glucose Calcium Total Bilirubin Direct Bilirubin AST ALT Alkaline Phosphatase Ammonia Total Protein Albumin Globulin Lipase Urine Opiates Screen Urine Methadone Screen Ur Barbiturates Screen Ur Phencyclidine Scrn Ur Amphetamines Screen U Methamphetamin-MDMA U Benzodiazepines Scrn Urine Cocaine Screen U Cannabinoids Screen Ur Drug Screen Comment RAFAEL Screen Pending c-ANCA Antibody Pending p-ANCA Antibody Pending ALEXIA-1 Antibody Pending SS-A/Ro IgG Antibody Pending SS-B/La IgG Antibody Pending Sm (Turk) Antibody Pending MOLD CLAMPER Antibody Pending Scl-70 Scleroderma Ab Pending Double Strand DNA Ab Pending Centromere B Antibody Pending Hepatitis A IgM Ab Pending Hep Bs Antigen Pending Hep B Core IgM Ab Pending Hepatitis C Ab (EIA) Pending 03/13/18 03/13/18 03/13/18 06:06 06:06 08:35 WBC 15.5 H RBC 4.40 Hgb 13.5 Hct 41.3 MCV 93.9 MCH 30.7 MCHC 32.7 RDW 13.4 RDW Differential 44.5 H Plt Count 529 H MPV 9.6 Immature Gran % (Auto) 0.600 Neut % (Auto) 87.1 H Lymph % (Auto) 4.3 L [place] % (Auto) 7.8 Eos % (Auto) 0.1 Baso % (Auto) 0.1 Absolute Neuts (auto) 13.5 H Absolute Lymphs (auto) 0.67 L Total Counted Not Reportable PT INR Sodium 135 L Potassium 4.2 Chloride 101 Carbon Dioxide 27.0 Anion Gap 7 BUN 12 Creatinine 0.70 Estim Creat Clear Calc 57.55 Est GFR (MDRD) Af Amer 108 Est GFR (MDRD) Non-Af 89 BUN/Creatinine Ratio 17.2 Glucose 101 Calcium 8.8 Total Bilirubin Direct Bilirubin AST ALT Alkaline Phosphatase Ammonia Total Protein Albumin Globulin Lipase Urine Opiates Screen NEGATIVE Urine Methadone Screen NEGATIVE Ur Barbiturates Screen NEGATIVE Ur Phencyclidine Scrn NEGATIVE Ur Amphetamines Screen NEGATIVE U Methamphetamin-MDMA NEGATIVE U Benzodiazepines Scrn NEGATIVE Urine Cocaine Screen NEGATIVE U Cannabinoids Screen NEGATIVE Ur Drug Screen Comment RAFAEL Screen c-ANCA Antibody p-ANCA Antibody ALEXIA-1 Antibody SS-A/Ro IgG Antibody SS-B/La IgG Antibody Sm (Turk) Antibody MOLD CLAMPER Antibody Scl-70 Scleroderma Ab Double Strand DNA Ab Centromere B Antibody Hepatitis A IgM Ab Hep Bs Antigen Hep B Core IgM Ab Hepatitis C Ab (EIA) 03/13/18 03/13/18 03/13/18 08:55 08:55 12:03 WBC RBC Hgb Hct MCV MCH MCHC RDW RDW Differential Plt Count MPV Immature Gran % (Auto) Neut % (Auto) Lymph % (Auto) [place] % (Auto) Eos % (Auto) Baso % (Auto) Absolute Neuts (auto) Absolute Lymphs (auto) Total Counted PT 14.8 INR 1.2 Sodium Potassium Chloride Carbon Dioxide Anion Gap BUN Creatinine Estim Creat Clear Calc Est GFR (MDRD) Af Amer Est GFR (MDRD) Non-Af BUN/Creatinine Ratio Glucose Calcium Total Bilirubin 2.70 H Direct Bilirubin 2.01 H AST 823 H ALT 945 H Alkaline Phosphatase 389 H Ammonia 24.0 Total Protein 7.1 Albumin 3.2 Globulin 3.9 Lipase 74 Urine Opiates Screen Urine Methadone Screen Ur Barbiturates Screen Ur Phencyclidine Scrn Ur Amphetamines Screen U Methamphetamin-MDMA U Benzodiazepines Scrn Urine Cocaine Screen U Cannabinoids Screen Ur Drug Screen Comment RAFAEL Screen c-ANCA Antibody p-ANCA Antibody ALEXIA-1 Antibody SS-A/Ro IgG Antibody SS-B/La IgG Antibody Sm (Turk) Antibody MOLD CLAMPER Antibody Scl-70 Scleroderma Ab Double Strand DNA Ab Centromere B Antibody Hepatitis A IgM Ab Hep Bs Antigen Hep B Core IgM Ab Hepatitis C Ab (EIA) 03/13/18 19:55 WBC RBC Hgb Hct MCV MCH MCHC RDW RDW Differential Plt Count MPV Immature Gran % (Auto) Neut % (Auto) Lymph % (Auto) [place] % (Auto) Eos % (Auto) Baso % (Auto) Absolute Neuts (auto) Absolute Lymphs (auto) Total Counted PT INR Sodium Potassium Chloride Carbon Dioxide Anion Gap BUN Creatinine Estim Creat Clear Calc Est GFR (MDRD) Af Amer Est GFR (MDRD) Non-Af BUN/Creatinine Ratio Glucose Calcium Total Bilirubin Pending Direct Bilirubin Pending AST Pending ALT Pending Alkaline Phosphatase Pending Ammonia Total Protein Pending Albumin Pending Globulin Lipase Urine Opiates Screen Urine Methadone Screen Ur Barbiturates Screen Ur Phencyclidine Scrn Ur Amphetamines Screen U Methamphetamin-MDMA U Benzodiazepines Scrn Urine Cocaine Screen U Cannabinoids Screen Ur Drug Screen Comment RAFAEL Screen c-ANCA Antibody p-ANCA Antibody ALEXIA-1 Antibody SS-A/Ro IgG Antibody SS-B/La IgG Antibody Sm (Turk) Antibody MOLD CLAMPER Antibody Scl-70 Scleroderma Ab Double Strand DNA Ab Centromere B Antibody Hepatitis A IgM Ab Hep Bs Antigen Hep B Core IgM Ab Hepatitis C Ab (EIA) Clinical Impression(s) from Imaging Studies Acute Abdomen Series 03/13/18 00:34 IMPRESSION: Normal x-ray examination of the chest, abdomen, and pelvis. Electronically Signed: Lilian Sandoval MD at 2:16 EDT Tel , Service support , Gallbladder Ultrasound 03/13/18 05:55 IMPRESSION: Gallbladder Wall thickening, pericholecystic fluid, sludge, there is borderline common duct distention cholelithiasis/sludge. This constellation of findings is associated with acute cholecystitis in the appropriate clinical setting. Sonographic Valiente sign is not described as positive or negative. The differential for wall thickening can be associated with underlying hepatic disease. Benign-appearing right renal cyst N.B. : The above information has been verbally conveyed by Oxana Wagoner MD to DR. Parikh, Covering Physician, on 03/13/2018 10:04:06 (ET). Electronically Signed: Oxana Wagoner MD at 9:43 EDT Tel , Service support , N.B. : The above information has been verbally conveyed by Oxana Wagoner MD to DR. Parikh, Covering Physician, on 03/13/2018 10:04:06 (ET). Abdomen/Pelvis CT 03/13/18 08:30 IMPRESSION: Findings are highly suspicious for acute cholecystitis. This is concordant with the recent ultrasound findings showing the same. Hepatic steatosis. 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 Distention of the common duct is 6.7 mm Benign appearing right renal cyst. Diverticulosis without diverticulitis. Electronically Signed: Oxana Wagoner MD at 11:42 EDT Tel , Service support , Assessment/Plan Active and Suspected Problems (Last Reviewed 02/04/18 @ 13:45 by Candy Davenport) Transaminitis (Acute) Cholecystitis (Acute) Obstructive jaundice (Acute) 67-year-old female with obstructive jaundice and possible acute cholecystitis. 1. The patient has experienced sudden onset right upper quadrant pain. She had an ultrasound which showed pericholecystic fluid. At that time her white count was slightly elevated at 12. She was admitted and morning labs showed increased elevation of white count as well as increase in LFTs. She had a CT scan done this afternoon which showed slightly dilated common bile duct as well as thickened gallbladder wall with pericholecystic fluid suggestive of acute cholecystitis. 2. Currently the patient is not having much right upper quadrant pain. I am getting a stat hepatic panel. If the hepatic panel has risen since this morning I will plan for ERCP in the morning. If the hepatic panel has decreased I will have Dr. Sanderson perform his laparoscopic cholecystectomy with cholangiogram to check for filling defects in the common bile duct. If a filling defect is encountered I will take her for ERCP the following day. 3. I explained ERCP in detail to the patient. I explained the risks of the procedure including but not limited to bleeding, infection, perforation of the bile duct or bowels, pancreatitis. I also explained that if I was unable to remove the obstructing stone I would have to place a biliary stent and repeat ERCP in the future. I also explained the possibility of being unable to cannulate the duct. All patient's questions were answered and the patient consents to procedure. I will make the patient n.p.o. and on IV fluids. Mario Vyas MD Pager: [facility] [address] [place] [address], [address] [place] [address] Office:
--- NOTE | 2018-03-13 20:13 | CON.PCM_ITS ---
Problem List (1) Obstructive jaundice Status: Acute (2) Cholecystitis Status: Acute Reason for Consult Date of Consultation: 03/13/18 Reason for Consultation: Elevated LFTs History of Present Illness: The patient is a 67 year old F who is here with right upper quadrant pain and nausea and vomiting. I was consulted by Dr. Sanderson for possible ERCP. The patient reports that yesterday evening she started having nausea and vomiting and right upper quadrant pain after eating a burger. She reports that she has had gastritis with extreme weight loss in the past. At the current time she does not report much abdominal pain. She does not describe any fevers or chills. Past Medical History Past Medical History (Chronic Problems): Chronic Problems (Last Reviewed 02/04/18 @ 13:45 by Candy Davenport) Dissociative identity disorder (Chronic) Seizure (Chronic) GERD (gastroesophageal reflux disease) (Chronic) Hyperlipidemia (Chronic) Hepatitis (Chronic) Osteopenia (Chronic) Chronic back pain (Chronic) Rheumatoid arthritis (Chronic) COPD (chronic obstructive pulmonary disease) (Chronic) Manic depressive disorder (Chronic) Hypertension (Chronic) Tobacco abuse (Chronic) Noncompliance (Chronic) Bipolar disorder (Chronic) Opioid dependence (Chronic) Allergies lurasidone [From Latuda] Allergy (Verified 03/13/18 00:15) Other naproxen Allergy (Verified 03/13/18 00:15) Hives paliperidone [From Invega] Allergy (Verified 03/13/18 00:15) increased psychiatric symptoms trazodone Allergy (Verified 03/13/18 00:15) Other theophylline Adverse Reaction (Verified 03/13/18 00:15) Other SLOBID Adverse Reaction (Uncoded 03/13/18 00:15) Other Home Medications: Ambulatory Orders Medication Instructions Recorded Lisinopril [Zestril] 20 mg PO DAILY 03/24/17 Divalproex (ER) [Depakote ER] 500 mg PO BID 06/20/17 Pravastatin [Pravachol] 40 mg PO QHS 12/18/17 Buprenorphine HCl/Naloxone HCl 2 ea SL DAILY 12/24/17 [Suboxone 8 mg-2 mg Sl Film] benztropine 0.5 mg tablet 0.5 mg PO BID 01/06/18 calcium carbonate 600 mg calcium 600 mg PO BID #60 tab 01/06/18 (1,500 mg) tablet cholecalciferol (vitamin D3) 50,000 unit PO QWEEK #8 cap 01/06/18 50,000 unit capsule olanzapine 10 mg tablet 10 mg PO QHS tab 01/06/18 pantoprazole 20 mg tablet,delayed 20 mg PO QDAY 01/06/18 release clonidine HCl 0.1 mg tablet 0.1 mg PO TID #90 tab 03/11/18 hydralazine 50 mg tablet 50 mg PO TID #90 tab 03/11/18 metoprolol tartrate 25 mg tablet 25 mg PO DAILY #30 tab 03/11/18 Surgical History: hysterectomy, - - C-sections - 3, abdominal hysterectomy, hernia repair with mesh?. 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 Smoking Status: Current every day smoker - *Family History Maternal History Items: No pertinent history Paternal History Items: No pertinent history Sibling History Items: Cancer Review of Systems Constitutional: Denies: Chills, Fever HEENT: Denies: Difficulty Swallowing Cardiovascular: Denies: Chest Pain Respiratory: Denies: Cough Gastrointestinal: Reports: Abdominal Pain, Nausea, Vomiting Genitourinary: Denies: Dysuria Musculoskeletal: Denies: Joint Tenderness Skin: Denies: Dryness Neurological: Denies: Balance problems Hematologic/ Lymphatic: Denies: Anemia Patient Problems: Active and Suspected Problems (Last Reviewed 02/04/18 @ 13:45 by Candy Davenport) Transaminitis (Acute) Cholecystitis (Acute) Obstructive jaundice (Acute) - Physical Exam General: Alert, Oriented x3, Cooperative, No apparent distress HEENT: Atraumatic, PERRLA, EOMI Oral: Moist Mucosa Neck: No JVD Lungs: Normal air movement Cardiovascular: Regular rate, Regular Rhythm Abdomen: Soft, Non-Distended, Tender - Mild tenderness to deep palpation of the right upper quadrant with no guarding or rebound. Extremities: No clubbing Skin: No rashes Musculoskeletal: No Muscle Wasting Neurological: Cranial nerves II-XII grossly intact Psych/Mental Status: Normal Affect Vital Signs Temp Pulse Resp BP Pulse Ox 98.4 F 72 18 108/66 94 03/13/18 16:23 03/13/18 16:23 03/13/18 16:23 03/13/18 16:23 03/13/18 16:23 Oxygen Delivery Method Room Air Weight: 167 lb Body Mass Index (BMI) 32.5 Laboratory Tests Past 24 Hrs 03/13/18 03/13/18 03/13/18 06:06 06:06 06:06 WBC RBC Hgb Hct MCV MCH MCHC RDW RDW Differential Plt Count MPV Immature Gran % (Auto) Neut % (Auto) Lymph % (Auto) [place] % (Auto) Eos % (Auto) Baso % (Auto) Absolute Neuts (auto) Absolute Lymphs (auto) Total Counted PT INR Sodium Potassium Chloride Carbon Dioxide Anion Gap BUN Creatinine Estim Creat Clear Calc Est GFR (MDRD) Af Amer Est GFR (MDRD) Non-Af BUN/Creatinine Ratio Glucose Calcium Total Bilirubin Direct Bilirubin AST ALT Alkaline Phosphatase Ammonia Total Protein Albumin Globulin Lipase Urine Opiates Screen Urine Methadone Screen Ur Barbiturates Screen Ur Phencyclidine Scrn Ur Amphetamines Screen U Methamphetamin-MDMA U Benzodiazepines Scrn Urine Cocaine Screen U Cannabinoids Screen Ur Drug Screen Comment RAFAEL Screen Pending c-ANCA Antibody Pending p-ANCA Antibody Pending ALEXIA-1 Antibody Pending SS-A/Ro IgG Antibody Pending SS-B/La IgG Antibody Pending Sm (Turk) Antibody Pending FLOOR DIRECTOR Antibody Pending Scl-70 Scleroderma Ab Pending Double Strand DNA Ab Pending Centromere B Antibody Pending Hepatitis A IgM Ab Pending Hep Bs Antigen Pending Hep B Core IgM Ab Pending Hepatitis C Ab (EIA) Pending 03/13/18 03/13/18 03/13/18 06:06 06:06 08:35 WBC 15.5 H RBC 4.40 Hgb 13.5 Hct 41.3 MCV 93.9 MCH 30.7 MCHC 32.7 RDW 13.4 RDW Differential 44.5 H Plt Count 529 H MPV 9.6 Immature Gran % (Auto) 0.600 Neut % (Auto) 87.1 H Lymph % (Auto) 4.3 L [place] % (Auto) 7.8 Eos % (Auto) 0.1 Baso % (Auto) 0.1 Absolute Neuts (auto) 13.5 H Absolute Lymphs (auto) 0.67 L Total Counted Not Reportable PT INR Sodium 135 L Potassium 4.2 Chloride 101 Carbon Dioxide 27.0 Anion Gap 7 BUN 12 Creatinine 0.70 Estim Creat Clear Calc 57.55 Est GFR (MDRD) Af Amer 108 Est GFR (MDRD) Non-Af 89 BUN/Creatinine Ratio 17.2 Glucose 101 Calcium 8.8 Total Bilirubin Direct Bilirubin AST ALT Alkaline Phosphatase Ammonia Total Protein Albumin Globulin Lipase Urine Opiates Screen NEGATIVE Urine Methadone Screen NEGATIVE Ur Barbiturates Screen NEGATIVE Ur Phencyclidine Scrn NEGATIVE Ur Amphetamines Screen NEGATIVE U Methamphetamin-MDMA NEGATIVE U Benzodiazepines Scrn NEGATIVE Urine Cocaine Screen NEGATIVE U Cannabinoids Screen NEGATIVE Ur Drug Screen Comment RAFAEL Screen c-ANCA Antibody p-ANCA Antibody ALEXIA-1 Antibody SS-A/Ro IgG Antibody SS-B/La IgG Antibody Sm (Turk) Antibody FLOOR DIRECTOR Antibody Scl-70 Scleroderma Ab Double Strand DNA Ab Centromere B Antibody Hepatitis A IgM Ab Hep Bs Antigen Hep B Core IgM Ab Hepatitis C Ab (EIA) 03/13/18 03/13/18 03/13/18 08:55 08:55 12:03 WBC RBC Hgb Hct MCV MCH MCHC RDW RDW Differential Plt Count MPV Immature Gran % (Auto) Neut % (Auto) Lymph % (Auto) [place] % (Auto) Eos % (Auto) Baso % (Auto) Absolute Neuts (auto) Absolute Lymphs (auto) Total Counted PT 14.8 INR 1.2 Sodium Potassium Chloride Carbon Dioxide Anion Gap BUN Creatinine Estim Creat Clear Calc Est GFR (MDRD) Af Amer Est GFR (MDRD) Non-Af BUN/Creatinine Ratio Glucose Calcium Total Bilirubin 2.70 H Direct Bilirubin 2.01 H AST 823 H ALT 945 H Alkaline Phosphatase 389 H Ammonia 24.0 Total Protein 7.1 Albumin 3.2 Globulin 3.9 Lipase 74 Urine Opiates Screen Urine Methadone Screen Ur Barbiturates Screen Ur Phencyclidine Scrn Ur Amphetamines Screen U Methamphetamin-MDMA U Benzodiazepines Scrn Urine Cocaine Screen U Cannabinoids Screen Ur Drug Screen Comment RAFAEL Screen c-ANCA Antibody p-ANCA Antibody ALEXIA-1 Antibody SS-A/Ro IgG Antibody SS-B/La IgG Antibody Sm (Turk) Antibody FLOOR DIRECTOR Antibody Scl-70 Scleroderma Ab Double Strand DNA Ab Centromere B Antibody Hepatitis A IgM Ab Hep Bs Antigen Hep B Core IgM Ab Hepatitis C Ab (EIA) 03/13/18 19:55 WBC RBC Hgb Hct MCV MCH MCHC RDW RDW Differential Plt Count MPV Immature Gran % (Auto) Neut % (Auto) Lymph % (Auto) [place] % (Auto) Eos % (Auto) Baso % (Auto) Absolute Neuts (auto) Absolute Lymphs (auto) Total Counted PT INR Sodium Potassium Chloride Carbon Dioxide Anion Gap BUN Creatinine Estim Creat Clear Calc Est GFR (MDRD) Af Amer Est GFR (MDRD) Non-Af BUN/Creatinine Ratio Glucose Calcium Total Bilirubin Pending Direct Bilirubin Pending AST Pending ALT Pending Alkaline Phosphatase Pending Ammonia Total Protein Pending Albumin Pending Globulin Lipase Urine Opiates Screen Urine Methadone Screen Ur Barbiturates Screen Ur Phencyclidine Scrn Ur Amphetamines Screen U Methamphetamin-MDMA U Benzodiazepines Scrn Urine Cocaine Screen U Cannabinoids Screen Ur Drug Screen Comment RAFAEL Screen c-ANCA Antibody p-ANCA Antibody ALEXIA-1 Antibody SS-A/Ro IgG Antibody SS-B/La IgG Antibody Sm (Turk) Antibody FLOOR DIRECTOR Antibody Scl-70 Scleroderma Ab Double Strand DNA Ab Centromere B Antibody Hepatitis A IgM Ab Hep Bs Antigen Hep B Core IgM Ab Hepatitis C Ab (EIA) Clinical Impression(s) from Imaging Studies Acute Abdomen Series 03/13/18 00:34 IMPRESSION: Normal x-ray examination of the chest, abdomen, and pelvis. Electronically Signed: Lilian Sandoval MD at 2:16 EDT Tel , Service support , Gallbladder Ultrasound 03/13/18 05:55 IMPRESSION: Gallbladder Wall thickening, pericholecystic fluid, sludge, there is borderline common duct distention cholelithiasis/sludge. This constellation of findings is associated with acute cholecystitis in the appropriate clinical setting. Sonographic Valiente sign is not described as positive or negative. The differential for wall thickening can be associated with underlying hepatic disease. Benign-appearing right renal cyst N.B. : The above information has been verbally conveyed by Oxana Wagoner MD to DR. Parikh, Covering Physician, on 03/13/2018 10:04:06 (ET). Electronically Signed: Oxana Wagoner MD at 9:43 EDT Tel , Service support , N.B. : The above information has been verbally conveyed by Oxana Wagoner MD to DR. Parikh, Covering Physician, on 03/13/2018 10:04:06 (ET). Abdomen/Pelvis CT 03/13/18 08:30 IMPRESSION: Findings are highly suspicious for acute cholecystitis. This is concordant with the recent ultrasound findings showing the same. Hepatic steatosis. 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 Distention of the common duct is 6.7 mm Benign appearing right renal cyst. Diverticulosis without diverticulitis. Electronically Signed: Oxana Wagoner MD at 11:42 EDT Tel , Service support , Assessment/Plan Active and Suspected Problems (Last Reviewed 02/04/18 @ 13:45 by Candy Davenport) Transaminitis (Acute) Cholecystitis (Acute) Obstructive jaundice (Acute) 67-year-old female with obstructive jaundice and possible acute cholecystitis. 1. The patient has experienced sudden onset right upper quadrant pain. She had an ultrasound which showed pericholecystic fluid. At that time her white count was slightly elevated at 12. She was admitted and morning labs showed increased elevation of white count as well as increase in LFTs. She had a CT scan done this afternoon which showed slightly dilated common bile duct as well as thickened gallbladder wall with pericholecystic fluid suggestive of acute cholecystitis. 2. Currently the patient is not having much right upper quadrant pain. I am getting a stat hepatic panel. If the hepatic panel has risen since this morning I will plan for ERCP in the morning. If the hepatic panel has decreased I will have Dr. Sanderson perform his laparoscopic cholecystectomy with cholangiogram to check for filling defects in the common bile duct. If a filling defect is encountered I will take her for ERCP the following day. 3. I explained ERCP in detail to the patient. I explained the risks of the procedure including but not limited to bleeding, infection, perforation of the bile duct or bowels, pancreatitis. I also explained that if I was unable to remove the obstructing stone I would have to place a biliary stent and repeat ERCP in the future. I also explained the possibility of being unable to cannulate the duct. All patient's questions were answered and the patient consents to procedure. I will make the patient n.p.o. and on IV fluids. Mario Vyas MD Pager: [facility] [address] [place] [address], [address] [place] [address] Office:
[2018-03-13] MEDS: 0.9% Normal Saline 1,000 ML 100 ML IV (20:15)
[2018-03-13 20:25] LABS: AST(SGOT) 428 U/L (15-37); Alanine Aminotransfer ALT/SGPT 715 U/L (13-56); Albumin, Serum 2.9 g/dL (3.2-5.0); Alkaline Phosphatase 357 U/L (45-117); Bilirubin, Direct 2.66 mg/dL (0.00-0.30); Globulin 3.6 g/dL (2.2-4.2); Protein, Total 6.5 g/dL (6.4-8.2)
[2018-03-13] MEDS: OLANZapine 10 MG Tablet PO (21:29)
--- NOTE | 2018-03-13 23:08 | NURSING ---
Spoke with lab and requested for labs to be drawn early in am to have labs resulted back and posted on the chart by 0600.
[2018-03-14] VITALS (17 sets, daily range): BP systolic 117–219; BP diastolic 66–116; PULSE 55–86; RESP 16–18; TEMP 36.6–36.9; O2SAT 92–100; BMI 32.6
[2018-03-14] MEDS: 0.9% Normal Saline 1,000 ML 100 ML IV (03:42)
[2018-03-14 04:48] LABS: Absolute Neutrophil Count 5.8 X10^3/uL (2.0-7.7); Basophil# 0.01 X10^3/uL; Basophil% 0.1 % (0-1); Eosinophil# 0.15 X10^3/uL; Eosinophils% 1.8 % (0-5); Hematocrit 38.8 % (37-47); Hemoglobin 12.6 g/dl (12.0-15.0); Lymphocyte % 12.2 % (19-41); Mean Corp Hgb Conc 32.5 g/gl (32-36); Mean Corpuscular Hgb 30.5 pg (27.0-32.0); Mean Corpuscular Volume 93.9 fL (81-99); Mean Platelet Vol. 9.1 fl (6.2-12.0); Monocyte# 1.13 X10^3/uL; Monocyte% 13.8 % (0-10); Neutrophil # 5.78 X10^3/uL (2.7-7.7); Neutrophil % 70.6 % (47-70); Platelet Count 406 K/mm3 (150-450); RBC Distribution Width CV 13.5 % (11.6-14.6); RBC Distribution Width SD 46.2 fl (35.1-43.9); Red Blood Count 4.13 M/mm3 (4.2-5.4); White Blood Count 8.2 K/mm3 (4.4-11.0)
[2018-03-14 04:51] LABS: POSITIVE COUNT NO; POSITIVE DIFFERENTIAL NO; POSITIVE MORPHOLOGY NO
[2018-03-14 05:04] LABS: Partial Thromboplast Time 36.8 Seconds (24.1-36.2)
[2018-03-14 05:12] LABS: ALB/GLOB Ratio 0.7 RATIO (0.9-2.4); AST(SGOT) 306 U/L (15-37); Alanine Aminotransfer ALT/SGPT 641 U/L (13-56); Albumin, Serum 2.8 g/dL (3.2-5.0); Alkaline Phosphatase 342 U/L (45-117); Amylase 26 U/L (25-115); Anion Gap 6 (5-15); BUN 8 mg/dL (7-18); BUN/Creat Ratio 13.1 RATIO (10-20); Calcium,Total 8.1 mg/dL (8.5-10.1); Chloride 101 mmol/L (98-107); Creatinine, Serum 0.61 mg/dL (0.55-1.02); EST Glomerular Filtration Rate 104 mL/min (>60); Est Glom Filt Rate - Afr Amer 126 mL/min (>60); Estimated Creatinine Clearance 66.04 ml/min; Globulin 3.8 g/dL (2.2-4.2); Glucose 100 mg/dL (74-106); Potassium 4.4 mmol/L (3.5-5.1); Protein, Total 6.6 g/dL (6.4-8.2); Sodium Level 137 mmol/L (136-145)
--- NOTE | 2018-03-14 07:30 | RAD_ITS ---
CLINICAL HISTORY: Female, 67 years old. Cholecystitis, laparoscopic cholecystectomy PROCEDURE: To record Fluoroscopic imaging, and image description only. FLUOROSCOPY TIME (if supplied): (0:33) minutes/seconds Placement of the catheter and the procedure were performed by: Attending physician Fluoroscopy was provided by technologist, who was present in the room time of the procedure. TECHNIQUE: A series of cine images is provided for interpretation, these images are performed in intraoperative basis. This is a reviewed the images only. FINDINGS: There is a catheter inserted into the cystic duct which progressively shows homogeneous distention of the common duct with a small amount of contrast appearing to extend into the pancreatic duct or an accessory duct. There is no evidence of extravasation out of the cystic duct. At the time of this study the gallbladder has been removed. There is contrast within the small bowel. Other than a few gas bubbles, There are no visualized filling defects. There is no visualized extravasation. RAD/Cholangiogram/ O R,Initial IMPRESSION: Fluoroscopy utilized to evaluate intraoperative cholangiogram as detailed above on the images provided recommend correlation with procedure notes and intraoperative observations. Electronically Signed: Oxana Wagoner MD at 9:35 EDT Tel , Service support ,
--- NOTE | 2018-03-14 07:30 | GALL_PTH ---
PATIENT: ALEXIA POWELL LOC: MS3 U#:[id number] AGE/SX: 67/F [place] [facility] [place]: Dr. Navjot Hassan DO : 1950 BED: 1 DIS: 03/15/2018 SPEC #: [id number] RECD: 03/16/18 08:57 STATUS: [place] REQ #: [id number] MAXIMINO: 03/14/18 07:[address]: Santiago Sanderson DEPT: SURGICAL PATHOLOGY RECD BY: Anders Romo ENTERED: 03/16/18 11:28 SP TYPE: GALLBLADDE OT DR: DO Dr. Esperanza Youssef MD Dr. Nhan Luu, MD Tissues: Gallbladder, NOS Procedures: Surgery Specimen Level III Comments: @ Ordering doctor for SUIII edited from to DR.RGUTTM Bain by TIFFANIE at 03/17/18 0830 @ Submitting doctor edited from to DR.RGUTTM Bain by RGOROC at 03/17/18 0830 HEADER OPERATION: Laparoscopic cholecystectomy with IOC PRE-OP DIAGNOSIS: Cholecystitis TISSUE SUBMITTED: Gallbladder MICROSCOPIC DIAGNOSIS Gallbladder, cholecystectomy: Acute and chronic cholecystitis and cholelithiasis. AM:theodore 03/17/18 MICROSCOPIC DESCRIPTION Slides are reviewed. GROSS DESCRIPTION Received is one container labeled with the patient's name and designated gallbladder. The specimen consists of a gallbladder measuring 9 cm in length and up to 4 cm in diameter. The external surface is pink-muñoz, smooth and glistening for the most part. Focally it is granular, hemorrhagic and contains cautery artifact. The gallbladder contains green-yellow mucoid bile and one brown ovoid stone measuring 0.9 x 0.5 x 0.4 cm. The mucosa is bile-stained and without any mass lesions. The gallbladder wall measures up to 0.3 cm in thickness. The mucosa also shows several yellowish streaks consistent with cholesterolosis. Washery Engineer sections from the gallbladder and the cystic duct are submitted in one cassette. / SJ:theodore 03/16/18 TC:2 CPT: 43093
--- NOTE | 2018-03-14 07:32 | PCM.PN.SRG ---
Patient Problems: Active and Suspected Problems (Last Reviewed 02/04/18 @ 13:45 by Candy Davenport) Transaminitis (Acute) Cholecystitis (Acute) Obstructive jaundice (Acute) Subjective: some pain, - Physical Exam General: Alert, Oriented x3, Cooperative Lungs: Clear to auscultation, Normal air movement Cardiovascular: Regular rate, No murmurs Abdomen: Bowel Sounds Present, Soft, Tender - upper abdomen Vital Signs Temp Pulse Resp BP Pulse Ox 98.5 F 66 16 117/66 92 03/14/18 03:45 03/14/18 03:45 03/14/18 03:45 03/14/18 03:45 03/14/18 03:45 Oxygen Delivery Method Room Air Weight: 75.75 kg Body Mass Index (BMI) 32.5 Laboratory Tests Past 24 Hrs 03/13/18 03/13/18 03/13/18 08:35 08:55 08:55 WBC RBC Hgb Hct MCV MCH MCHC RDW RDW Differential Plt Count MPV Immature Gran % (Auto) Neut % (Auto) Lymph % (Auto) [place] % (Auto) Eos % (Auto) Baso % (Auto) Absolute Neuts (auto) Absolute Lymphs (auto) Total Counted PT INR APTT Sodium Potassium Chloride Carbon Dioxide Anion Gap BUN Creatinine Estim Creat Clear Calc Est GFR (MDRD) Af Amer Est GFR (MDRD) Non-Af BUN/Creatinine Ratio Glucose Calcium Total Bilirubin 2.70 H Direct Bilirubin 2.01 H AST 823 H ALT 945 H Alkaline Phosphatase 389 H Ammonia 24.0 Total Protein 7.1 Albumin 3.2 Globulin 3.9 Albumin/Globulin Ratio Amylase Lipase 74 Urine Opiates Screen NEGATIVE Urine Methadone Screen NEGATIVE Ur Barbiturates Screen NEGATIVE Ur Phencyclidine Scrn NEGATIVE Ur Amphetamines Screen NEGATIVE U Methamphetamin-MDMA NEGATIVE U Benzodiazepines Scrn NEGATIVE Urine Cocaine Screen NEGATIVE U Cannabinoids Screen NEGATIVE Ur Drug Screen Comment 03/13/18 03/13/18 03/14/18 12:03 19:55 04:36 WBC 8.2 RBC 4.13 L Hgb 12.6 Hct 38.8 MCV 93.9 MCH 30.5 MCHC 32.5 RDW 13.5 RDW Differential 46.2 H Plt Count 406 MPV 9.1 Immature Gran % (Auto) 1.500 H Neut % (Auto) 70.6 H Lymph % (Auto) 12.2 L [place] % (Auto) 13.8 H Eos % (Auto) 1.8 Baso % (Auto) 0.1 Absolute Neuts (auto) 5.8 Absolute Lymphs (auto) 1.00 Total Counted Not Reportable PT 14.8 INR 1.2 APTT Sodium Potassium Chloride Carbon Dioxide Anion Gap BUN Creatinine Estim Creat Clear Calc Est GFR (MDRD) Af Amer Est GFR (MDRD) Non-Af BUN/Creatinine Ratio Glucose Calcium Total Bilirubin 3.30 H Direct Bilirubin 2.66 H AST 428 H ALT 715 H Alkaline Phosphatase 357 H Ammonia Total Protein 6.5 Albumin 2.9 L Globulin 3.6 Albumin/Globulin Ratio Amylase Lipase Urine Opiates Screen Urine Methadone Screen Ur Barbiturates Screen Ur Phencyclidine Scrn Ur Amphetamines Screen U Methamphetamin-MDMA U Benzodiazepines Scrn Urine Cocaine Screen U Cannabinoids Screen Ur Drug Screen Comment 03/14/18 03/14/18 04:36 04:36 WBC RBC Hgb Hct MCV MCH MCHC RDW RDW Differential Plt Count MPV Immature Gran % (Auto) Neut % (Auto) Lymph % (Auto) [place] % (Auto) Eos % (Auto) Baso % (Auto) Absolute Neuts (auto) Absolute Lymphs (auto) Total Counted PT INR APTT 36.8 H Sodium 137 Potassium 4.4 Chloride 101 Carbon Dioxide 30.0 Anion Gap 6 BUN 8 Creatinine 0.61 Estim Creat Clear Calc 66.04 Est GFR (MDRD) Af Amer 126 Est GFR (MDRD) Non-Af 104 BUN/Creatinine Ratio 13.1 Glucose 100 Calcium 8.1 L Total Bilirubin 2.30 H Direct Bilirubin AST 306 H ALT 641 H Alkaline Phosphatase 342 H Ammonia Total Protein 6.6 Albumin 2.8 L Globulin 3.8 Albumin/Globulin Ratio 0.7 L Amylase 26 Lipase Urine Opiates Screen Urine Methadone Screen Ur Barbiturates Screen Ur Phencyclidine Scrn Ur Amphetamines Screen U Methamphetamin-MDMA U Benzodiazepines Scrn Urine Cocaine Screen U Cannabinoids Screen Ur Drug Screen Comment Medical Necessity - Tobacco Use Smoking Status: Current every day smoker Assessment/Plan Active and Suspected Problems (Last Reviewed 02/04/18 @ 13:45 by Candy Davenport) Transaminitis (Acute) Cholecystitis (Acute) Obstructive jaundice (Acute) abdominal pain, questionable biliary colic, acute cholecystitis versus common duct stone versus atypical hepatitis picture. Given the patient's relatively complicated history, questionable history of hepatitis, and transaminases elevated out of proportion to alkaline phosphatase and bilirubin. Initially, I was more likely entertaining the possibilities of hepatitis picture. With the patient's now increased bilirubin and findings on the ultrasound from the others not a large amount of stones, cholecystitis is higher up on my differential. We'll others not significant ductal dilatation, there is a rapid increase in her bilirubin level. Again, the exact etiology is not specifically clear. Given the question of pancreatic ductal dilatation, and her tenderness of her pancreas. Even in the face of a normal lipase, I reviewed his CT scan of the abdomen pelvis to assure that I don't see any pancreatic abnormalities or other causes for her abnormalities. Additionally, the patient on previous admission had an elevated ammonia level, which has been concerned for underlying liver issues. The liver appeared smooth. On ultrasound, but I would like to obtain an CT scan. A second imaging modality to assure I don't see signs of early cirrhosis, portal hypertension, or other abnormalities which could be confused for pericholecystic fluid. bilirubin initially increased overnight. I spoke with Dr. Raymond Vyas who is willing to evaluate the patient and would consider ERCP in the above scenario. THis morning - Bilirubin has decreased. I am planning for laparoscopic cholecystectomy with intraoperative cholangiogram. The patient understands the risks, benefits and possible complications and alternatives. She understands that there still may be a CBD stone and with inflammation, I may not be able to obtain the intraoperative cholangiogram. She consents to the procedure.
[2018-03-14] MEDS: Metoprolol Tartrate 25 MG Tablet PO (07:52)
--- NOTE | 2018-03-14 08:03 | NURSING ---
report given to PACU nurse
--- NOTE | 2018-03-14 09:53 | OP.PCM_ITS ---
Report of Operation Date of Procedure: 03/14/18 Pre-Operative Diagnosis: acute cholecystitis Post-Operative Diagnosis: acute cholecystitis, dilated CBD but no stone, lower midline omental adhesions Surgery/Procedure Performed:: laparoscopic cholecystectomy with intraoperative cholangiogram Description of Surgical Findings:: as above soda fountain manager: Boni York Type of Anesthesia:: General Anesthesiologist: Rudy Rawls - ASA3 Specimen's removed: gallbladder Estimated Blood Loss (mL): 60 Fluids Replaced: 1100 Description of Procedure: The patient was brought to the operating suite. Sign in was performed verifying patient, site, position, SCIP antibiotic prophylaxis- gm of Ancef and DVT prophylaxis with SCDs. Following induction of general anesthetic. The patient?s abdomen was prepped and draped in the usual fashion. Timeout was performed verifying patient, site , position. Local anesthetic was injected below the umbilicus. Incision made and dissection carried down to the umbilical root fascia. 2 stay sutures were placed. Incision made in the fascia, the peritoneum entered under direct visualization. A 10 mm Quintana trocar was inserted and secured with the stay sutures. Pneumoperitoneum to 15 mmHg was insufflated. Visual inspection revealed edematous gallbladder with adhesions of the transverse mesocolon to the omentum. patient also had adhesions in the lower midline from the umbilicus inferiorly. 3 right upper quadrant 5 ports were placed in the standard position. The gallbladder was grasped retracted upward and outward. Sharp and blunt dissection was used to release the adhesions from the gallbladder. Dissection was carried out in Calot?s triangle. Dissection was continued until the cystic artery was clearly dissected and identified. The artery was then doubly clipped proximally singly clipped distally and divided. When a critical view of the neck of the gallbladder funneling of the cystic duct with no signs of aberrant ductal structures were seen, a clip was placed on the neck of the gallbladder cystic duct junction. A partial ductotomy was made. A Cholangiocath was inserted into the duct and secured with a clip. Intraoperative cholangiogram was performed demonstrating filling of the cystic duct filling the common bile duct - which demonstrated dilated common bile duct without filling defect and what appeared to be edema in the ampulla with no evidence of obstruction and emptying into the duodenum without signs of obstruction. 1 mg of glucagonoma was given area and repeat cholangiogram still demonstrated similar findings. The clip and catheter were removed. 2 clips placed on the cystic duct and the cystic duct divided. The gallbladder was then dissected free from the gallbladder fossa using electrocautery. The gallbladder was placed in an Endobag and removed through the umbilical port site. An 0 PDS [id number] suture was placed around the umbilical port site defect. Pneumoperitoneum was reestablished. The gallbladder fossa was checked for hemostasis. With good hemostasis, the area was irrigated and aspirated to clear. Metzenbaum scissors with electrocautery used to dissect the omentum off the lower midline to prevent future risk of bowel obstructions. The 5mm ports were removed under direct visualization with no signs of bleeding. Pneumoperitoneum was released. The Quintana trocar was removed. The umbilical fascial suture was secured area did skin was closed with interrupted 4-0 Monocryl subcuticular sutures. Steri-Strips and bandages were applied. The patient was brought to recovery room in stable condition. - Admit VTE Documentation VTE Present on Admission: No VTE Mechan Device Prophylaxis: SCD's VTE Pharm Prophylaxis ordered?: No
[2018-03-14] MEDS: Ceftriaxone 1 GM/50 ML BAG IV (11:46)
[2018-03-14] MEDS: BUPRENORPHINE HCL 8 MG TAB.SUBL SL ×2 (11:47→21:37)
[2018-03-14] MEDS: Pantoprazole Sodium 20 MG Tablet PO (11:50)
[2018-03-14] MEDS: hydrALAZINE 50 MG Tablet PO ×2 (11:50→21:39)
[2018-03-14] MEDS: Lisinopril 20 MG Tablet PO (11:51)
[2018-03-14] MEDS: cloNIDine HCl 0.1 MG Tablet PO ×2 (11:51→21:38)
[2018-03-14] MEDS: Benztropine 2 MG Tablet 0.5 MG PO ×2 (11:52→21:38)
[2018-03-14] MEDS: guaiFENesin/D-Methorphan TAB.SR.12H 1 TABLET PO ×2 (11:52→21:38)
[2018-03-14] MEDS: Divalproex (ER) 250 MG Tablet 500 MG PO ×2 (11:52→21:41)
[2018-03-14] MEDS: Lactated Ringers 1,000 ML 75 ML IV (11:56)
[2018-03-14] MEDS: Ibuprofen 400 MG Tablet PO ×2 (11:56→20:25)
--- NOTE | 2018-03-14 12:22 | PCM.PN.HOSP ---
Patient Problems: Active and Suspected Problems (Last Reviewed 02/04/18 @ 13:45 by Candy Davenport) Transaminitis (Acute) Cholecystitis (Acute) Obstructive jaundice (Acute) Subjective: 67-year-old female with a history of COPD, GERD, hyperlipidemia and remote history of hepatitis in childhood. She was admitted with a complaint of abdominal pain which started just prior to eating and was exacerbated after she ate some cheeseburger. Pain was sharp and constant and mainly located in the right upper quadrant. She had associated nausea and vomiting. Labs showed elevated transaminitis and she was admitted and is being managed for possible acute cholecystitis. She has remained stable. CT of abdomen done was indicated of acute cholecystitis. General surgery on board. Seen and examined this morning. She had laparoscopic cholecystectomy this morning by general surgery. Patient was in some pain, however she denied any fever or chills, any diarrhea vomiting. Review of systems otherwise negative. Vitals/I&O's: Vital Signs Temp Pulse Resp BP Pulse Ox 98.0 F 64 18 204/108 H 97 03/14/18 11:59 03/14/18 11:59 03/14/18 11:59 03/14/18 11:59 03/14/18 11:59 Oxygen Flow Rate (L/min) 2 Oxygen Delivery Method Room Air Weight: 167 lb Body Mass Index (BMI) 32.5 Intake and Output for Last 24 Hours 03/12/18 03/13/18 03/14/18 23:59 23:59 23:59 Intake Total 1700 / 1700 Output Total 150 / 150 Balance 1550 / 1550 General: Alert, Oriented x3, Cooperative, - - mild distress from pain. Has tinge of scleral jaundice HEENT: Atraumatic, PERRLA, EOMI, Normocephalic Oral: Moist Mucosa Neck: Supple, No JVD, Negative Carotid Bruits Lungs: Clear to auscultation, Normal air movement, No rhonchi, No wheeze Cardiovascular: Regular rate, Regular Rhythm, Normal S1, Normal S2, No murmurs Abdomen: Bowel Sounds Present, Soft, Non Tender, Obese, - - Dressings clean and dry areas of laparoscopic insertion. Extremities: No clubbing, No cyanosis, No edema, Capillary Refill Less than 3 Seconds Skin: No rashes, No breakdown Musculoskeletal: No Tenderness to Palpation of Joints or Extremities Lymphatic: No Cervical, Supraclavicular, or Inguinal Adenopathy Neurological: Cranial nerves II-XII grossly intact, Neuro grossly intact Psych/Mental Status: Normal Affect, Appropriate, Alert and oriented to time, place, person, mood and affect Laboratory Results 03/13/18 12:03: PT 14.8, INR 1.2 03/13/18 19:55: Total Bilirubin 3.30 H, Direct Bilirubin 2.66 H, AST 428 H, ALT 715 H, Alkaline Phosphatase 357 H, Total Protein 6.5, Albumin 2.9 L, Globulin 3.6 03/14/18 04:36: WBC 8.2, RBC 4.13 L, Hgb 12.6, Hct 38.8, MCV 93.9, MCH 30.5, MCHC 32.5, RDW 13.5, RDW Differential 46.2 H, Plt Count 406, MPV 9.1, Immature Gran % (Auto) 1.500 H, Neut % (Auto) 70.6 H, Lymph % (Auto) 12.2 L, [place] % (Auto) 13.8 H, Eos % (Auto) 1.8, Baso % (Auto) 0.1, Absolute Neuts (auto) 5.8, Absolute Lymphs (auto) 1.00, Total Counted Not Reportable 03/14/18 04:36: Sodium 137, Potassium 4.4, Chloride 101, Carbon Dioxide 30.0, Anion Gap 6, BUN 8, Creatinine 0.61, Estim Creat Clear Calc 66.04, Est GFR (MDRD) Af Amer 126, Est GFR (MDRD) Non-Af 104, BUN/Creatinine Ratio 13.1, Glucose 100, Calcium 8.1 L, Total Bilirubin 2.30 H, AST 306 H, ALT 641 H, Alkaline Phosphatase 342 H, Total Protein 6.6, Albumin 2.8 L, Globulin 3.8, Albumin/Globulin Ratio 0.7 L, Amylase 26 03/14/18 04:36: APTT 36.8 H Current Medications Benztropine Mesylate (Cogentin) 0.5 mg PO BID [facility] Last Admin: 03/14/18 11:52 Dose: 0.5 mg Buprenorphine HCl (Buprenorphine Hcl) 8 mg SL BID [facility] Last Admin: 03/14/18 11:47 Dose: 8 mg Calcium Carbonate (Os-Benjamin 500) 500 mg PO BID [facility] Last Admin: 03/14/18 11:49 Dose: Not Given Clonidine (Catapres) 0.1 mg PO TID [facility] Last Admin: 03/14/18 11:51 Dose: 0.1 mg Divalproex Sodium (Depakote Er) 500 mg PO BID [facility] Last Admin: 03/14/18 11:52 Dose: 500 mg Guaifenesin (Humibid Dm) 1 tablet PO Q12 [facility] Last Admin: 03/14/18 11:52 Dose: 1 tablet Hydralazine HCl (Apresoline) 50 mg PO TID [facility] Last Admin: 03/14/18 11:50 Dose: 50 mg Ceftriaxone Sodium (Rocephin) 1 gm in 50 mls @ 100 mls/hr IV Q24 [facility] Last Admin: 03/14/18 11:46 Dose: 100 mls/hr Lactated Ringer's () 1,000 mls @ 75 mls/hr IV .[id number] [facility] Last Admin: 03/14/18 11:56 Dose: 75 mls/hr Ibuprofen (Motrin) 400 mg PO Q4H PRN PRN PRN Reason: MILD PAIN (1-3/10) Last Admin: 03/14/18 11:56 Dose: 400 mg Lisinopril (Zestril) 20 mg PO DAILY [facility] Last Admin: 03/14/18 11:51 Dose: 20 mg Magnesium Hydroxide (Milk Of Magnesia) 30 ml PO DAILY PRN PRN PRN Reason: Constipation Metoprolol Tartrate (Lopressor (Beta Shruti)) 25 mg PO DAILY [facility] Last Admin: 03/14/18 07:52 Dose: 25 mg Nicotine (Nicoderm Cq (Pbkc)) 14 mg TRANSDERM. DAILY [facility] Last Admin: 03/14/18 11:51 Dose: 14 mg Non-Formulary Medication (Cholecalciferol (Vitamin D3) [Vitamin D3]) 50,000 unit PO QWEEK [facility] Olanzapine (Zyprexa) 10 mg PO QHS [facility] Last Admin: 03/13/18 21:29 Dose: 10 mg Pantoprazole Sodium (Protonix) 20 mg PO DAILY [facility] Last Admin: 03/14/18 11:50 Dose: 20 mg Sodium Chloride () 5 - 30 ml IV UD PRN PRN Reason: SALINE FLUSH Medical Necessity - Tobacco Use Smoking Status: Current every day smoker Assessment/Plan Active and Suspected Problems (Last Reviewed 02/04/18 @ 13:45 by Candy Davenport) Transaminitis (Acute) Cholecystitis (Acute) Obstructive jaundice (Acute) This 7-year-old woman presented with a one-day history of right upper quadrant pain exacerbated by eating greasy food. 1. 1. Acute cholecystitis s/p laparoscopic cholecystectomy today is POD 0 patient is in moderate pain after surgery. Vitals show elevated BP with SBP in 200s now. on motrin for pain. Cannot give opiates o/a of history of opiate abuse. Will give IV ketorolac on IV ceftriaxone liver enzymes are trending downwardsl; Total leatha down to 2.3, ASt/ALT down to 306/641. ALP down to 342. will continue IVF and pain meds and monitor liver enzymes. On IV zofran. hepatitis screen still pending. 2. COPD: stable. continue breathing treatments prn 3. History of chemical dependency: on suboxone. We dont have suboxone in our formulary. Patient says nobody can bring her suboxone from home. W currently on buprenorphine 8mg bid. 4. Hypertension: BP elevated after surgery. S BP in 200s systolic; likely due to pain. Received her BP meds today. on clonidine, hydralazine, lisinopril and metoprolol will give IV hydralazine prn 5. DVT prophylaxis: currently on heparin. WIll check INR in light of deranged liver enzymes. 6. GI prophylaxis: PPI Code Visit Inpatient E&M: 61942 Subs Hosp L3
--- NOTE | 2018-03-14 12:30 | PN_ITS ---
Patient Problems: Active and Suspected Problems (Last Reviewed 02/04/18 @ 13:45 by Candy Davenport) Transaminitis (Acute) Cholecystitis (Acute) Obstructive jaundice (Acute) Subjective: 67-year-old female with a history of COPD, GERD, hyperlipidemia and remote history of hepatitis in childhood. She was admitted with a complaint of abdominal pain which started just prior to eating and was exacerbated after she ate some cheeseburger. Pain was sharp and constant and mainly located in the right upper quadrant. She had associated nausea and vomiting. Labs showed elevated transaminitis and she was admitted and is being managed for possible acute cholecystitis. She has remained stable. CT of abdomen done was indicated of acute cholecystitis. General surgery on board. Seen and examined this morning. She had laparoscopic cholecystectomy this morning by general surgery. Patient was in some pain, however she denied any fever or chills, any diarrhea vomiting. Review of systems otherwise negative. Vitals/I&O's: Vital Signs Temp Pulse Resp BP Pulse Ox 98.0 F 64 18 204/108 H 97 03/14/18 11:59 03/14/18 11:59 03/14/18 11:59 03/14/18 11:59 03/14/18 11:59 Oxygen Flow Rate (L/min) 2 Oxygen Delivery Method Room Air Weight: 167 lb Body Mass Index (BMI) 32.5 Intake and Output for Last 24 Hours 03/12/18 03/13/18 03/14/18 23:59 23:59 23:59 Intake Total 1700 / 1700 Output Total 150 / 150 Balance 1550 / 1550 General: Alert, Oriented x3, Cooperative, - - mild distress from pain. Has tinge of scleral jaundice HEENT: Atraumatic, PERRLA, EOMI, Normocephalic Oral: Moist Mucosa Neck: Supple, No JVD, Negative Carotid Bruits Lungs: Clear to auscultation, Normal air movement, No rhonchi, No wheeze Cardiovascular: Regular rate, Regular Rhythm, Normal S1, Normal S2, No murmurs Abdomen: Bowel Sounds Present, Soft, Non Tender, Obese, - - Dressings clean and dry areas of laparoscopic insertion. Extremities: No clubbing, No cyanosis, No edema, Capillary Refill Less than 3 Seconds Skin: No rashes, No breakdown Musculoskeletal: No Tenderness to Palpation of Joints or Extremities Lymphatic: No Cervical, Supraclavicular, or Inguinal Adenopathy Neurological: Cranial nerves II-XII grossly intact, Neuro grossly intact Psych/Mental Status: Normal Affect, Appropriate, Alert and oriented to time, place, person, mood and affect Laboratory Results 03/13/18 12:03: PT 14.8, INR 1.2 03/13/18 19:55: Total Bilirubin 3.30 H, Direct Bilirubin 2.66 H, AST 428 H, ALT 715 H, Alkaline Phosphatase 357 H, Total Protein 6.5, Albumin 2.9 L, Globulin 3.6 03/14/18 04:36: WBC 8.2, RBC 4.13 L, Hgb 12.6, Hct 38.8, MCV 93.9, MCH 30.5, MCHC 32.5, RDW 13.5, RDW Differential 46.2 H, Plt Count 406, MPV 9.1, Immature Gran % (Auto) 1.500 H, Neut % (Auto) 70.6 H, Lymph % (Auto) 12.2 L, [place] % (Auto ) 13.8 H, Eos % (Auto) 1.8, Baso % (Auto) 0.1, Absolute Neuts (auto) 5.8, Absolute Lymphs (auto) 1.00, Total Counted Not Reportable 03/14/18 04:36: Sodium 137, Potassium 4.4, Chloride 101, Carbon Dioxide 30.0, Anion Gap 6, BUN 8, Creatinine 0.61, Estim Creat Clear Calc 66.04, Est GFR (MDRD ) Af Amer 126, Est GFR (MDRD) Non-Af 104, BUN/Creatinine Ratio 13.1, Glucose 100 , Calcium 8.1 L, Total Bilirubin 2.30 H, AST 306 H, ALT 641 H, Alkaline Phosphatase 342 H, Total Protein 6.6, Albumin 2.8 L, Globulin 3.8, Albumin/ Globulin Ratio 0.7 L, Amylase 26 03/14/18 04:36: APTT 36.8 H Current Medications Benztropine Mesylate (Cogentin) 0.5 mg PO BID [facility] Last Admin: 03/14/18 11:52 Dose: 0.5 mg Buprenorphine HCl (Buprenorphine Hcl) 8 mg SL BID [facility] Last Admin: 03/14/18 11:47 Dose: 8 mg Calcium Carbonate (Os-Benjamin 500) 500 mg PO BID [facility] Last Admin: 03/14/18 11:49 Dose: Not Given Clonidine (Catapres) 0.1 mg PO TID [facility] Last Admin: 03/14/18 11:51 Dose: 0.1 mg Divalproex Sodium (Depakote Er) 500 mg PO BID [facility] Last Admin: 03/14/18 11:52 Dose: 500 mg Guaifenesin (Humibid Dm) 1 tablet PO Q12 [facility] Last Admin: 03/14/18 11:52 Dose: 1 tablet Hydralazine HCl (Apresoline) 50 mg PO TID [facility] Last Admin: 03/14/18 11:50 Dose: 50 mg Ceftriaxone Sodium (Rocephin) 1 gm in 50 mls @ 100 mls/hr IV Q24 [facility] Last Admin: 03/14/18 11:46 Dose: 100 mls/hr Lactated Ringer's () 1,000 mls @ 75 mls/hr IV .[id number] [facility] Last Admin: 03/14/18 11:56 Dose: 75 mls/hr Ibuprofen (Motrin) 400 mg PO Q4H PRN PRN PRN Reason: MILD PAIN (1-3/10) Last Admin: 03/14/18 11:56 Dose: 400 mg Lisinopril (Zestril) 20 mg PO DAILY [facility] Last Admin: 03/14/18 11:51 Dose: 20 mg Magnesium Hydroxide (Milk Of Magnesia) 30 ml PO DAILY PRN PRN PRN Reason: Constipation Metoprolol Tartrate (Lopressor (Beta Shruti)) 25 mg PO DAILY [facility] Last Admin: 03/14/18 07:52 Dose: 25 mg Nicotine (Nicoderm Cq (Pbkc)) 14 mg TRANSDERM. DAILY [facility] Last Admin: 03/14/18 11:51 Dose: 14 mg Non-Formulary Medication (Cholecalciferol (Vitamin D3) [Vitamin D3]) 50,000 unit PO QWEEK [facility] Olanzapine (Zyprexa) 10 mg PO QHS [facility] Last Admin: 03/13/18 21:29 Dose: 10 mg Pantoprazole Sodium (Protonix) 20 mg PO DAILY [facility] Last Admin: 03/14/18 11:50 Dose: 20 mg Sodium Chloride () 5 - 30 ml IV UD PRN PRN Reason: SALINE FLUSH Medical Necessity - Tobacco Use Smoking Status: Current every day smoker Assessment/Plan Active and Suspected Problems (Last Reviewed 02/04/18 @ 13:45 by Candy Davenport) Transaminitis (Acute) Cholecystitis (Acute) Obstructive jaundice (Acute) This 7-year-old woman presented with a one-day history of right upper quadrant pain exacerbated by eating greasy food. 1. 1. Acute cholecystitis s/p laparoscopic cholecystectomy * today is POD 0 * patient is in moderate pain after surgery. * Vitals show elevated BP with SBP in 200s now. * on motrin for pain. Cannot give opiates o/a of history of opiate abuse. Will give IV ketorolac * on IV ceftriaxone * liver enzymes are trending downwardsl; Total leatha down to 2.3, ASt/ALT down to 306/641. ALP down to 342. * will continue IVF and pain meds and monitor liver enzymes. * On IV zofran. * hepatitis screen still pending. * * 2. COPD: stable. continue breathing treatments prn 3. History of chemical dependency: * on suboxone. We dont have suboxone in our formulary. Patient says nobody can bring her suboxone from home. W * currently on buprenorphine 8mg bid. * 4. Hypertension: * BP elevated after surgery. S * BP in 200s systolic; likely due to pain. * Received her BP meds today. on clonidine, hydralazine, lisinopril and metoprolol * will give IV hydralazine prn 5. DVT prophylaxis: currently on heparin. WIll check INR in light of deranged liver enzymes. 6. GI prophylaxis: PPI Code Visit Inpatient E&M: 53934 [facility] Hosp L3
[2018-03-14 16:06] LABS: HEPATITIS B SURFACE AG Negative (Negative); Hepatitis A IgM Antibody Negative (Negative); Hepatitis B Core AB IgM Negative (Negative)
[2018-03-14] MEDS: OLANZapine 10 MG Tablet PO (21:38)
[2018-03-14] MEDS: Calcium (Elemental) 500 MG Tablet PO (21:38)
[2018-03-15 00:03] VITALS: BP 153/72
[2018-03-15 02:11] VITALS: BP 147/82; PULSE 66; RESP 18; TEMP 36.9; O2SAT 96
[2018-03-15] MEDS: Ibuprofen 400 MG Tablet PO (02:21)
[2018-03-15 06:07] VITALS: BP 139/66; PULSE 65
[2018-03-15 06:10] VITALS: BP 139/66; PULSE 65
[2018-03-15] MEDS: Lactated Ringers 1,000 ML 75 ML IV (06:10)
[2018-03-15] MEDS: hydrALAZINE 50 MG Tablet PO (06:10)
[2018-03-15] MEDS: cloNIDine HCl 0.1 MG Tablet PO (06:10)
[2018-03-15 07:03] LABS: Absolute Neutrophil Count 5.4 X10^3/uL (2.0-7.7); Basophil# 0.01 X10^3/uL; Basophil% 0.1 % (0-1); Eosinophil# 0.11 X10^3/uL; Eosinophils% 1.4 % (0-5); Hemoglobin 11.8 g/dl (12.0-15.0); Lymphocyte % 15.4 % (19-41); Mean Corp Hgb Conc 31.9 g/gl (32-36); Mean Corpuscular Hgb 29.9 pg (27.0-32.0); Mean Corpuscular Volume 93.9 fL (81-99); Mean Platelet Vol. 9.5 fl (6.2-12.0); Monocyte# 1.03 X10^3/uL; Monocyte% 13.2 % (0-10); Neutrophil # 5.35 X10^3/uL (2.7-7.7); Neutrophil % 68.9 % (47-70); Platelet Count 407 K/mm3 (150-450); RBC Distribution Width CV 13.7 % (11.6-14.6); RBC Distribution Width SD 47.1 fl (35.1-43.9); Red Blood Count 3.94 M/mm3 (4.2-5.4); White Blood Count 7.8 K/mm3 (4.4-11.0)
[2018-03-15 07:05] LABS: POSITIVE COUNT NO; POSITIVE DIFFERENTIAL NO; POSITIVE MORPHOLOGY NO
[2018-03-15 07:19] LABS: ALB/GLOB Ratio 0.7 RATIO (0.9-2.4); AST(SGOT) 130 U/L (15-37); Alanine Aminotransfer ALT/SGPT 401 U/L (13-56); Albumin, Serum 2.5 g/dL (3.2-5.0); Alkaline Phosphatase 276 U/L (45-117); Anion Gap 7 (5-15); BUN 5 mg/dL (7-18); BUN/Creat Ratio 9.2 RATIO (10-20); Calcium,Total 8.6 mg/dL (8.5-10.1); Chloride 102 mmol/L (98-107); Creatinine, Serum 0.54 mg/dL (0.55-1.02); EST Glomerular Filtration Rate 119 mL/min (>60); Est Glom Filt Rate - Afr Amer 144 mL/min (>60); Globulin 3.6 g/dL (2.2-4.2); Glucose 123 mg/dL (74-106); Potassium 3.5 mmol/L (3.5-5.1); Protein, Total 6.1 g/dL (6.4-8.2); Sodium Level 140 mmol/L (136-145)
[2018-03-15 07:58] VITALS: BP 147/79; PULSE 72; RESP 16; TEMP 37; O2SAT 95
--- NOTE | 2018-03-15 08:33 | PCM.PN.HOSP ---
Patient Problems: Active and Suspected Problems (Last Reviewed 02/04/18 @ 13:45 by Candy Davenport) Transaminitis (Acute) Cholecystitis (Acute) Obstructive jaundice (Acute) Subjective: still with abdominal pain, but better than just after surgery. Ibuprofen not helping enough. Vitals/I&O's: Vital Signs Temp Pulse Resp BP Pulse Ox 37.0 C 72 16 147/79 H 95 03/15/18 07:58 03/15/18 07:58 03/15/18 07:58 03/15/18 07:58 03/15/18 07:58 Oxygen Flow Rate (L/min) 2 Oxygen Delivery Method Room Air Weight: 75.75 kg Body Mass Index (BMI) 32.5 Intake and Output for Last 24 Hours 03/13/18 03/14/18 03/15/18 23:59 23:59 23:59 Intake Total 2553 / 2553 1357 / 1357 Output Total 150 / 150 Balance 2403 / 2403 1357 / 1357 General: Alert, Cooperative, No apparent distress HEENT: Atraumatic, Normocephalic Neck: No Nodes, Thyroid Normal Size and Texture Lungs: Clear to auscultation, Normal air movement, No rhonchi, No wheeze Cardiovascular: Regular rate, Regular Rhythm, Normal S1, Normal S2, No murmurs Abdomen: Bowel Sounds Present, Soft, Hypoactive Bowel Sounds, Tender Extremities: No edema, No Calf Tenderness Skin: No rashes, No breakdown Psych/Mental Status: Normal Affect, Appropriate Laboratory Results 03/15/18 05:31: WBC 7.8, RBC 3.94 L, Hgb 11.8 L, Hct 37.0, MCV 93.9, MCH 29.9, MCHC 31.9 L, RDW 13.7, RDW Differential 47.1 H, Plt Count 407, MPV 9.5, Immature Gran % (Auto) 1.000 H, Neut % (Auto) 68.9, Lymph % (Auto) 15.4 L, [place] % (Auto) 13.2 H, Eos % (Auto) 1.4, Baso % (Auto) 0.1, Absolute Neuts (auto) 5.4, Absolute Lymphs (auto) 1.20, Total Counted Not Reportable 03/15/18 05:31: Sodium 140, Potassium 3.5, Chloride 102, Carbon Dioxide 31.0, Anion Gap 7, BUN 5 L, Creatinine 0.54 L, Estim Creat Clear Calc 74.60, Est GFR (MDRD) Af Amer 144, Est GFR (MDRD) Non-Af 119, BUN/Creatinine Ratio 9.2 L, Glucose 123 H, Calcium 8.6, Total Bilirubin 0.80, AST 130 H, ALT 401 H, Alkaline Phosphatase 276 H, Total Protein 6.1 L, Albumin 2.5 L, Globulin 3.6, Albumin/Globulin Ratio 0.7 L Current Medications Benztropine Mesylate (Cogentin) 0.5 mg PO BID [facility] Last Admin: 03/14/18 21:38 Dose: 0.5 mg Buprenorphine HCl (Buprenorphine Hcl) 8 mg SL BID [facility] Last Admin: 03/14/18 21:37 Dose: 8 mg Calcium Carbonate (Os-Benjamin 500) 500 mg PO BID [facility] Last Admin: 03/14/18 21:38 Dose: 500 mg Clonidine (Catapres) 0.1 mg PO TID [facility] Last Admin: 03/15/18 06:10 Dose: 0.1 mg Divalproex Sodium (Depakote Er) 500 mg PO BID [facility] Last Admin: 03/14/18 21:41 Dose: 500 mg Guaifenesin (Humibid Dm) 1 tablet PO Q12 [facility] Last Admin: 03/14/18 21:38 Dose: 1 tablet Hydralazine HCl (Apresoline) 50 mg PO TID [facility] Last Admin: 03/15/18 06:10 Dose: 50 mg Ceftriaxone Sodium (Rocephin) 1 gm in 50 mls @ 100 mls/hr IV Q24 [facility] Last Admin: 03/14/18 11:46 Dose: 100 mls/hr Lactated Ringer's () 1,000 mls @ 75 mls/hr IV .[id number] [facility] Last Admin: 03/15/18 06:10 Dose: 75 mls/hr Ibuprofen (Motrin) 400 mg PO Q4H PRN PRN PRN Reason: MILD PAIN (1-3/10) Last Admin: 03/15/18 02:21 Dose: 400 mg Lisinopril (Zestril) 20 mg PO DAILY [facility] Last Admin: 03/14/18 11:51 Dose: 20 mg Magnesium Hydroxide (Milk Of Magnesia) 30 ml PO DAILY PRN PRN PRN Reason: Constipation Metoprolol Tartrate (Lopressor (Beta Shruti)) 25 mg PO DAILY [facility] Last Admin: 03/14/18 07:52 Dose: 25 mg Nicotine (Nicoderm Cq (Pbkc)) 14 mg TRANSDERM. DAILY [facility] Last Admin: 03/14/18 11:51 Dose: 14 mg Olanzapine (Zyprexa) 10 mg PO QHS [facility] Last Admin: 03/14/18 21:38 Dose: 10 mg Pantoprazole Sodium (Protonix) 20 mg PO DAILY [facility] Last Admin: 03/14/18 11:50 Dose: 20 mg Sodium Chloride () 5 - 30 ml IV UD PRN PRN Reason: SALINE FLUSH Medical Necessity - Tobacco Use Smoking Status: Current every day smoker Assessment/Plan Active and Suspected Problems (Last Reviewed 02/04/18 @ 13:45 by Candy Davenport) Transaminitis (Acute) Cholecystitis (Acute) Obstructive jaundice (Acute) 1. acute cholecystitis: POD #1 from lap carlos alberto still with significant pain. will change pain meds from ibuprofen to ketorolac (avoid narcotics given history of narcotic abuse currently on suboxone) 2. transaminitis resolving 2/2 #1 +/- choledocholithiasis (though no stone noted in cholangiogram) 3. history of drug abuse narcotics and cocaine (crack) avoid narcotics, unless absolutely necessary 4. HTN: impoved continue with lisinopril, metoprolol, clonidine and hydralazine 5. DVT proph: SCDs Code Visit Inpatient E&M: 63190 Subs Hosp L2
--- NOTE | 2018-03-15 08:42 | PN_ITS ---
Patient Problems: Active and Suspected Problems (Last Reviewed 02/04/18 @ 13:45 by Candy Davenport) Transaminitis (Acute) Cholecystitis (Acute) Obstructive jaundice (Acute) Subjective: still with abdominal pain, but better than just after surgery. Ibuprofen not helping enough. Vitals/I&O's: Vital Signs Temp Pulse Resp BP Pulse Ox 37.0 C 72 16 147/79 H 95 03/15/18 07:58 03/15/18 07:58 03/15/18 07:58 03/15/18 07:58 03/15/18 07:58 Oxygen Flow Rate (L/min) 2 Oxygen Delivery Method Room Air Weight: 75.75 kg Body Mass Index (BMI) 32.5 Intake and Output for Last 24 Hours 03/13/18 03/14/18 03/15/18 23:59 23:59 23:59 Intake Total 2553 / 2553 1357 / 1357 Output Total 150 / 150 Balance 2403 / 2403 1357 / 1357 General: Alert, Cooperative, No apparent distress HEENT: Atraumatic, Normocephalic Neck: No Nodes, Thyroid Normal Size and Texture Lungs: Clear to auscultation, Normal air movement, No rhonchi, No wheeze Cardiovascular: Regular rate, Regular Rhythm, Normal S1, Normal S2, No murmurs Abdomen: Bowel Sounds Present, Soft, Hypoactive Bowel Sounds, Tender Extremities: No edema, No Calf Tenderness Skin: No rashes, No breakdown Psych/Mental Status: Normal Affect, Appropriate Laboratory Results 03/15/18 05:31: WBC 7.8, RBC 3.94 L, Hgb 11.8 L, Hct 37.0, MCV 93.9, MCH 29.9, MCHC 31.9 L, RDW 13.7, RDW Differential 47.1 H, Plt Count 407, MPV 9.5, Immature Gran % (Auto) 1.000 H, Neut % (Auto) 68.9, Lymph % (Auto) 15.4 L, [place] % (Auto) 13.2 H, Eos % (Auto) 1.4, Baso % (Auto) 0.1, Absolute Neuts (auto) 5.4 , Absolute Lymphs (auto) 1.20, Total Counted Not Reportable 03/15/18 05:31: Sodium 140, Potassium 3.5, Chloride 102, Carbon Dioxide 31.0, Anion Gap 7, BUN 5 L, Creatinine 0.54 L, Estim Creat Clear Calc 74.60, Est GFR ( MDRD) Af Amer 144, Est GFR (MDRD) Non-Af 119, BUN/Creatinine Ratio 9.2 L, Glucose 123 H, Calcium 8.6, Total Bilirubin 0.80, AST 130 H, ALT 401 H, Alkaline Phosphatase 276 H, Total Protein 6.1 L, Albumin 2.5 L, Globulin 3.6, Albumin/Globulin Ratio 0.7 L Current Medications Benztropine Mesylate (Cogentin) 0.5 mg PO BID [facility] Last Admin: 03/14/18 21:38 Dose: 0.5 mg Buprenorphine HCl (Buprenorphine Hcl) 8 mg SL BID [facility] Last Admin: 03/14/18 21:37 Dose: 8 mg Calcium Carbonate (Os-Benjamin 500) 500 mg PO BID [facility] Last Admin: 03/14/18 21:38 Dose: 500 mg Clonidine (Catapres) 0.1 mg PO TID [facility] Last Admin: 03/15/18 06:10 Dose: 0.1 mg Divalproex Sodium (Depakote Er) 500 mg PO BID [facility] Last Admin: 03/14/18 21:41 Dose: 500 mg Guaifenesin (Humibid Dm) 1 tablet PO Q12 [facility] Last Admin: 03/14/18 21:38 Dose: 1 tablet Hydralazine HCl (Apresoline) 50 mg PO TID [facility] Last Admin: 03/15/18 06:10 Dose: 50 mg Ceftriaxone Sodium (Rocephin) 1 gm in 50 mls @ 100 mls/hr IV Q24 [facility] Last Admin: 03/14/18 11:46 Dose: 100 mls/hr Lactated Ringer's () 1,000 mls @ 75 mls/hr IV .[id number] [facility] Last Admin: 03/15/18 06:10 Dose: 75 mls/hr Ibuprofen (Motrin) 400 mg PO Q4H PRN PRN PRN Reason: MILD PAIN (1-3/10) Last Admin: 03/15/18 02:21 Dose: 400 mg Lisinopril (Zestril) 20 mg PO DAILY [facility] Last Admin: 03/14/18 11:51 Dose: 20 mg Magnesium Hydroxide (Milk Of Magnesia) 30 ml PO DAILY PRN PRN PRN Reason: Constipation Metoprolol Tartrate (Lopressor (Beta Shruti)) 25 mg PO DAILY [facility] Last Admin: 03/14/18 07:52 Dose: 25 mg Nicotine (Nicoderm Cq (Pbkc)) 14 mg TRANSDERM. DAILY [facility] Last Admin: 03/14/18 11:51 Dose: 14 mg Olanzapine (Zyprexa) 10 mg PO QHS [facility] Last Admin: 03/14/18 21:38 Dose: 10 mg Pantoprazole Sodium (Protonix) 20 mg PO DAILY [facility] Last Admin: 03/14/18 11:50 Dose: 20 mg Sodium Chloride () 5 - 30 ml IV UD PRN PRN Reason: SALINE FLUSH Medical Necessity - Tobacco Use Smoking Status: Current every day smoker Assessment/Plan Active and Suspected Problems (Last Reviewed 02/04/18 @ 13:45 by Candy Davenport) Transaminitis (Acute) Cholecystitis (Acute) Obstructive jaundice (Acute) 1. acute cholecystitis: * POD #1 from lap carlos alberto * still with significant pain. will change pain meds from ibuprofen to ketorolac (avoid narcotics given history of narcotic abuse currently on suboxone ) 2. transaminitis * resolving * 2/2 #1 +/- choledocholithiasis (though no stone noted in cholangiogram) 3. history of drug abuse * narcotics and cocaine (crack) * avoid narcotics, unless absolutely necessary 4. HTN: * impoved * continue with lisinopril, metoprolol, clonidine and hydralazine 5. DVT proph: SCDs Code Visit Inpatient E&M: 76771 Subs Hosp L2
[2018-03-15] MEDS: Lisinopril 20 MG Tablet PO (08:58)
[2018-03-15] MEDS: BUPRENORPHINE HCL 8 MG TAB.SUBL SL (08:58)
[2018-03-15] MEDS: Divalproex (ER) 250 MG Tablet 500 MG PO (08:58)
[2018-03-15 08:59] VITALS: PULSE 72
[2018-03-15] MEDS: Metoprolol Tartrate 25 MG Tablet PO (08:59)
[2018-03-15] MEDS: Calcium (Elemental) 500 MG Tablet PO (08:59)
[2018-03-15] MEDS: Pantoprazole Sodium 20 MG Tablet PO (09:00)
[2018-03-15] MEDS: guaiFENesin/D-Methorphan TAB.SR.12H 1 TABLET PO (09:00)
[2018-03-15] MEDS: Benztropine 2 MG Tablet 0.5 MG PO (09:00)
[2018-03-15] MEDS: Ceftriaxone 1 GM/50 ML BAG IV (09:02)
--- NOTE | 2018-03-15 09:19 | PCM.DC.GB ---
Discharge Diet: Light diet - advance as tolerated Discharge Activity: May Not Drive - for 2-3 days or while taking narcotic pain medications., - - Do not drive, work heavy equipment or sign legal documents for 24 hours. May shower in (days): 1 - with the bandage in place. Additional Activity Instructions:: Pain medication may cause nausea. You should typically eat light foods as you take your pain medications. Pain medication may also cause constipation. If this is a problem for you, please discuss with your doctor. Call your doctor if your incision/area has: Continuous Slow Oozing, Sudden Increased Bleeding, Increased Pain/ Swelling, Increased Redness, Foul Smelling Discharge Call your doctor if you observe: Fever of 101 or Higher Suture Line Care: Avoid Pulling/Pushing, Avoid Pinching/Bending Additional Dressing/Incision Instructions:: Leave operative bandaids on for 2 days. When you remove dressing, leave Steri-Strips on until your follow-up appointment, or until the Steri-Strips fall off on their own. Allergies/Adverse Reactions: Allergies lurasidone [From Latuda] Allergy (Verified 03/13/18 00:15) Other naproxen Allergy (Verified 03/13/18 00:15) Hives paliperidone [From Invega] Allergy (Verified 03/13/18 00:15) increased psychiatric symptoms trazodone Allergy (Verified 03/13/18 00:15) Other theophylline Adverse Reaction (Verified 03/13/18 00:15) Other SLOBID Adverse Reaction (Uncoded 03/13/18 00:15) Other Medications to take at Discharge Lisinopril [Zestril] 20 mg PO DAILY 03/24/17 Divalproex (ER) [Depakote ER] 500 mg PO BID 06/20/17 Pravastatin [Pravachol] 40 mg PO QHS 12/18/17 Buprenorphine HCl/Naloxone HCl [Suboxone 8 mg-2 mg Sl Film] 2 ea SL DAILY 12/24/17 benztropine 0.5 mg tablet 0.5 mg PO BID 01/06/18 calcium carbonate 600 mg calcium (1,500 mg) tablet 600 mg PO BID #60 tab 01/06/18 cholecalciferol (vitamin D3) 50,000 unit capsule 50,000 unit PO QWEEK #8 cap 01/06/18 olanzapine 10 mg tablet 10 mg PO QHS tab 01/06/18 pantoprazole 20 mg tablet,delayed release 20 mg PO QDAY 01/06/18 clonidine HCl 0.1 mg tablet 0.1 mg PO TID #90 tab 03/11/18 hydralazine 50 mg tablet 50 mg PO TID #90 tab 03/11/18 metoprolol tartrate 25 mg tablet 25 mg PO DAILY #30 tab 03/11/18 Primary Care Physician: Esperanza Baird MD [Primary Care Provider] - Please Follow Up With: Santiago Sanderson MD - Please call [phone] to schedule an appointment. When: 7 days after your surgery
--- NOTE | 2018-03-15 09:22 | PN.SURG_ITS ---
Patient Problems: Active and Suspected Problems (Last Reviewed 02/04/18 @ 13:45 by Candy Davenport) Transaminitis (Acute) Cholecystitis (Acute) Obstructive jaundice (Acute) Subjective: incisional pain - Physical Exam General: Alert, Oriented x3, Cooperative Lungs: Clear to auscultation, Rhonchi Cardiovascular: Regular rate, Regular Rhythm Abdomen: Bowel Sounds Present, Soft, Tender - at incisions Vital Signs Temp Pulse Resp BP Pulse Ox 98.6 F 72 16 147/79 H 95 03/15/18 07:58 03/15/18 08:59 03/15/18 07:58 03/15/18 07:58 03/15/18 07:58 Oxygen Flow Rate (L/min) 2 Oxygen Delivery Method Room Air Weight: 75.75 kg Body Mass Index (BMI) 32.5 Intake and Output for Last 24 Hours 03/13/18 03/14/18 03/15/18 23:59 23:59 23:59 Intake Total 2553 / 2553 1357 / 1357 Output Total 150 / 150 Balance 2403 / 2403 1357 / 1357 Laboratory Tests Past 24 Hrs 03/15/18 03/15/18 05:31 05:31 WBC 7.8 RBC 3.94 L Hgb 11.8 L Hct 37.0 MCV 93.9 MCH 29.9 MCHC 31.9 L RDW 13.7 RDW Differential 47.1 H Plt Count 407 MPV 9.5 Immature Gran % (Auto) 1.000 H Neut % (Auto) 68.9 Lymph % (Auto) 15.4 L [place] % (Auto) 13.2 H Eos % (Auto) 1.4 Baso % (Auto) 0.1 Absolute Neuts (auto) 5.4 Absolute Lymphs (auto) 1.20 Total Counted Not Reportable Sodium 140 Potassium 3.5 Chloride 102 Carbon Dioxide 31.0 Anion Gap 7 BUN 5 L Creatinine 0.54 L Estim Creat Clear Calc 74.60 Est GFR (MDRD) Af Amer 144 Est GFR (MDRD) Non-Af 119 BUN/Creatinine Ratio 9.2 L Glucose 123 H Calcium 8.6 Total Bilirubin 0.80 AST 130 H ALT 401 H Alkaline Phosphatase 276 H Total Protein 6.1 L Albumin 2.5 L Globulin 3.6 Albumin/Globulin Ratio 0.7 L Medical Necessity - Tobacco Use Smoking Status: Current every day smoker Assessment/Plan Active and Suspected Problems (Last Reviewed 02/04/18 @ 13:45 by Candy Davenport) Transaminitis (Acute) Cholecystitis (Acute) Obstructive jaundice (Acute) acute cholecystitis with likely passed common duct stone postoperative day #1 status post laparoscopic cholecystectomy with intraoperative cholangiogram. patient was found to have edematous cholecystitis. Intraoperative [place] Armando demonstrated a dilated common bile duct with what appeared to be edema in the ampulla consistent with a previously passed common duct stone, but no filling defects and emptying of the common duct injury without difficulties. Bilirubin this morning has normalized. The patient is okay for discharge to home with plans to follow-up in my office in one week. She will be on nonnarcotic pain medication. Given her previous history.
--- NOTE | 2018-03-15 09:39 | PCM.DC.SUM ---
Discharge Date and Diagnosis - Problem List Patient Problems: Active and Suspected Problems (Last Reviewed 02/04/18 @ 13:45 by Candy Davenport) Transaminitis (Acute) Cholecystitis (Acute) Obstructive jaundice (Acute) Date of Admission: 03/13/18 Date of Discharge: 03/15/18 - Primary Discharge Diagnosis Active and Suspected Problems (Last Reviewed 02/04/18 @ 13:45 by Candy Davenport) Transaminitis (Acute) Cholecystitis (Acute) Obstructive jaundice (Acute) - Secondary Discharge Diagnosis Chronic Problems (Last Reviewed 02/04/18 @ 13:45 by Candy Davenport) Dissociative identity disorder (Chronic) Seizure (Chronic) GERD (gastroesophageal reflux disease) (Chronic) Hyperlipidemia (Chronic) Hepatitis (Chronic) Osteopenia (Chronic) Chronic back pain (Chronic) Rheumatoid arthritis (Chronic) COPD (chronic obstructive pulmonary disease) (Chronic) Manic depressive disorder (Chronic) Hypertension (Chronic) Tobacco abuse (Chronic) Noncompliance (Chronic) Bipolar disorder (Chronic) Opioid dependence (Chronic) Hospital Course and Treatment Imaging Results: Clinical Impression(s) from Imaging Studies Acute Abdomen Series 03/13/18 00:34 IMPRESSION: Normal x-ray examination of the chest, abdomen, and pelvis. Electronically Signed: Lilian Sandoval MD at 2:16 EDT Tel , Service support , Gallbladder Ultrasound 03/13/18 05:55 IMPRESSION: Gallbladder Wall thickening, pericholecystic fluid, sludge, there is borderline common duct distention cholelithiasis/sludge. This constellation of findings is associated with acute cholecystitis in the appropriate clinical setting. Sonographic Valiente sign is not described as positive or negative. The differential for wall thickening can be associated with underlying hepatic disease. Benign-appearing right renal cyst N.B. : The above information has been verbally conveyed by Oxana Wagoner MD to DR. Parikh, [facility] Physician, on 03/13/2018 10:04:06 (ET). Electronically Signed: Oxana Wagoner MD at 9:43 EDT Tel , Service support , N.B. : The above information has been verbally conveyed by Oxana Wagnoer MD to DR. Parikh, Covering Physician, on 03/13/2018 10:04:06 (ET). Abdomen/Pelvis CT 03/13/18 08:30 IMPRESSION: Findings are highly suspicious for acute cholecystitis. This is concordant with the recent ultrasound findings showing the same. Hepatic steatosis. 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 Distention of the common duct is 6.7 mm Benign appearing right renal cyst. Diverticulosis without diverticulitis. Electronically Signed: Oxana Wagoner MD at 11:42 EDT Tel , Service support , Cholangiogram 03/14/18 07:30 IMPRESSION: Fluoroscopy utilized to evaluate intraoperative cholangiogram as detailed above on the images provided recommend correlation with procedure notes and intraoperative observations. Electronically Signed: Oxana Wagoner MD at 9:35 EDT Tel , Service support , Operations: cholecystecomy Procedures: None Summary of Care Provided: The patient is a 67 year old F presents with abdominal pain. Had an abdominal CT that was suspicious for acute cholecystitis. And also noted to have some distention of the common duct at 6.7 mm. Patient was also noted to have elevated liver function tests. Total bilirubin got as high as 3.3 and AST and ALT were also elevated. Patient bilirubin has since normalized and AST and ALT are improving though not quite back to normal as of yet. Patient underwent laparoscopic cholecystectomy by her Jose on the . Patient tolerated procedure well. Patient was also seen in consultation by Dr. Vyas in case there is need for an ERCP which there was not. Patient still has some abdominal pain and patient will receive a prescription for Toradol. Patient does have a history of narcotic abuse to which she is on Suboxone for. Patient received prescription for a total of 5 days of Toradol dispense #20. Patient is otherwise doing well and will be discharged home. Patient is instructed to follow-up with Dr. Garcia in 7 days after her surgery. [] Discharge Diet: Light diet - advance as tolerated Discharge Activity: May Not Drive - for 2-3 days or while taking narcotic pain medications., - - Do not drive, work heavy equipment or sign legal documents for 24 hours. May shower in (days): 1 - with the bandage in place. Additional Activity Instructions:: Pain medication may cause nausea. You should typically eat light foods as you take your pain medications. Pain medication may also cause constipation. If this is a problem for you, please discuss with your doctor. Call your doctor if your incision/area has: Continuous Slow Oozing, Sudden Increased Bleeding, Increased Pain/ Swelling, Increased Redness, Foul Smelling Discharge Call your doctor if you observe: Fever of 101 or Higher Suture Line Care: Avoid Pulling/Pushing, Avoid Pinching/Bending Additional Dressing/Incision Instructions:: Leave operative bandaids on for 2 days. When you remove dressing, leave Steri-Strips on until your follow-up appointment, or until the Steri-Strips fall off on their own. Home Medications: Medications to take at Discharge Lisinopril [Zestril] 20 mg PO DAILY 03/24/17 Divalproex (ER) [Depakote ER] 500 mg PO BID 06/20/17 Pravastatin [Pravachol] 40 mg PO QHS 12/18/17 Buprenorphine HCl/Naloxone HCl [Suboxone 8 mg-2 mg Sl Film] 2 ea SL DAILY 12/24/17 benztropine 0.5 mg tablet 0.5 mg PO BID 01/06/18 calcium carbonate 600 mg calcium (1,500 mg) tablet 600 mg PO BID #60 tab 01/06/18 cholecalciferol (vitamin D3) 50,000 unit capsule 50,000 unit PO QWEEK #8 cap 01/06/18 olanzapine 10 mg tablet 10 mg PO QHS tab 01/06/18 pantoprazole 20 mg tablet,delayed release 20 mg PO QDAY 01/06/18 clonidine HCl 0.1 mg tablet 0.1 mg PO TID #90 tab 03/11/18 hydralazine 50 mg tablet 50 mg PO TID #90 tab 03/11/18 metoprolol tartrate 25 mg tablet 25 mg PO DAILY #30 tab 03/11/18 Ketorolac [Toradol] 10 mg PO Q6H PRN PRN #20 tab 03/15/18 Following Prescrptions Were Given to Patient: Ketorolac [Toradol] 10 mg PO Q6H PRN PRN #20 tab PRN Reason: Pain Primary Care Physician: Esperanza Baird MD [Primary Care Provider] - Please Follow Up With: Santiago Sanderson MD - Please call [phone] to schedule an appointment. When: 7 days after your surgery Disposition: Home Minutes spent on discharge:: 32 Patient Condition:: Good Medical Necessity - Tobacco Use Smoking Status: Current every day smoker Tobacco Use: Cigarettes Meaningful Use Info Meaningful Use Diagnoses (Choose all that apply): None applicable Code Visit Inpatient E&M: 60563 Disch Hosp
--- NOTE | 2018-03-15 09:44 | DS.PCM_ITS ---
Discharge Date and Diagnosis - Problem List Patient Problems: Active and Suspected Problems (Last Reviewed 02/04/18 @ 13:45 by Candy Davenport) Transaminitis (Acute) Cholecystitis (Acute) Obstructive jaundice (Acute) Date of Admission: 03/13/18 Date of Discharge: 03/15/18 - Primary Discharge Diagnosis Active and Suspected Problems (Last Reviewed 02/04/18 @ 13:45 by Candy Davenport) Transaminitis (Acute) Cholecystitis (Acute) Obstructive jaundice (Acute) - Secondary Discharge Diagnosis Chronic Problems (Last Reviewed 02/04/18 @ 13:45 by Candy Davenport) Dissociative identity disorder (Chronic) Seizure (Chronic) GERD (gastroesophageal reflux disease) (Chronic) Hyperlipidemia (Chronic) Hepatitis (Chronic) Osteopenia (Chronic) Chronic back pain (Chronic) Rheumatoid arthritis (Chronic) COPD (chronic obstructive pulmonary disease) (Chronic) Manic depressive disorder (Chronic) Hypertension (Chronic) Tobacco abuse (Chronic) Noncompliance (Chronic) Bipolar disorder (Chronic) Opioid dependence (Chronic) Hospital Course and Treatment Imaging Results: Clinical Impression(s) from Imaging Studies Acute Abdomen Series 03/13/18 00:34 IMPRESSION: Normal x-ray examination of the chest, abdomen, and pelvis. Electronically Signed: Lilian Sandoval MD at 2:16 EDT Tel , Service support , Gallbladder Ultrasound 03/13/18 05:55 IMPRESSION: Gallbladder Wall thickening, pericholecystic fluid, sludge, there is borderline common duct distention cholelithiasis/sludge. This constellation of findings is associated with acute cholecystitis in the appropriate clinical setting. Sonographic [place] sign is not described as positive or negative. The differential for wall thickening can be associated with underlying hepatic disease. Benign-appearing right renal cyst N.B. : The above information has been verbally conveyed by Oxana Wagoner MD to DR. Parikh, [facility] Physician, on 03/13/2018 10:04:06 (ET). Electronically Signed: Oxana Wagoner MD at 9:43 EDT Tel , Service support , N.B. : The above information has been verbally conveyed by Oxana Wagoner MD to DR. Parikh, Covering Physician, on 03/13/2018 10:04:06 (ET). Abdomen/Pelvis CT 03/13/18 08:30 IMPRESSION: Findings are highly suspicious for acute cholecystitis. This is concordant with the recent ultrasound findings showing the same. Hepatic steatosis. 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 Distention of the common duct is 6.7 mm Benign appearing right renal cyst. Diverticulosis without diverticulitis. Electronically Signed: Oxana Wagoner MD at 11:42 EDT Tel , Service support , Cholangiogram 03/14/18 07:30 IMPRESSION: Fluoroscopy utilized to evaluate intraoperative cholangiogram as detailed above on the images provided recommend correlation with procedure notes and intraoperative observations. Electronically Signed: Oxana Wagoner MD at 9:35 EDT Tel , Service support , Operations: cholecystecomy Procedures: None Summary of Care Provided: The patient is a 67 year old F presents with abdominal pain. Had an abdominal CT that was suspicious for acute cholecystitis. And also noted to have some distention of the common duct at 6.7 mm. Patient was also noted to have elevated liver function tests. Total bilirubin got as high as 3.3 and AST and ALT were also elevated. Patient bilirubin has since normalized and AST and ALT are improving though not quite back to normal as of yet. Patient underwent laparoscopic cholecystectomy by her Jose on the . Patient tolerated procedure well. Patient was also seen in consultation by Dr. Vyas in case there is need for an ERCP which there was not. Patient still has some abdominal pain and patient will receive a prescription for Toradol. Patient does have a history of narcotic abuse to which she is on Suboxone for. Patient received prescription for a total of 5 days of Toradol dispense #20. Patient is otherwise doing well and will be discharged home. Patient is instructed to follow-up with Dr. Garcia in 7 days after her surgery. [] Discharge Diet: Light diet - advance as tolerated Discharge Activity: May Not Drive - for 2-3 days or while taking narcotic pain medications., - - Do not drive, work heavy equipment or sign legal documents for 24 hours. May shower in (days): 1 - with the bandage in place. Additional Activity Instructions:: Pain medication may cause nausea. You should typically eat light foods as you take your pain medications. Pain medication may also cause constipation. If this is a problem for you, please discuss with your doctor. Call your doctor if your incision/area has: Continuous Slow Oozing, Sudden Increased Bleeding, Increased Pain/ Swelling, Increased Redness, Foul Smelling Discharge Call your doctor if you observe: Fever of 101 or Higher Suture Line Care: Avoid Pulling/Pushing, Avoid Pinching/Bending Additional Dressing/Incision Instructions:: Leave operative bandaids on for 2 days. When you remove dressing, leave Steri-Strips on until your follow-up appointment, or until the Steri-Strips fall off on their own. Home Medications: Medications to take at Discharge Lisinopril [Zestril] 20 mg PO DAILY 03/24/17 Divalproex (ER) [Depakote ER] 500 mg PO BID 06/20/17 Pravastatin [Pravachol] 40 mg PO QHS 12/18/17 Buprenorphine HCl/Naloxone HCl [Suboxone 8 mg-2 mg Sl Film] 2 ea SL DAILY benztropine 0.5 mg tablet 0.5 mg PO BID 01/06/18 calcium carbonate 600 mg calcium (1,500 mg) tablet 600 mg PO BID #60 tab cholecalciferol (vitamin D3) 50,000 unit capsule 50,000 unit PO QWEEK #8 cap olanzapine 10 mg tablet 10 mg PO QHS tab 01/06/18 pantoprazole 20 mg tablet,delayed release 20 mg PO QDAY 01/06/18 clonidine HCl 0.1 mg tablet 0.1 mg PO TID #90 tab 03/11/18 hydralazine 50 mg tablet 50 mg PO TID #90 tab 03/11/18 metoprolol tartrate 25 mg tablet 25 mg PO DAILY #30 tab 03/11/18 Ketorolac [Toradol] 10 mg PO Q6H PRN PRN #20 tab 03/15/18 Following Prescrptions Were Given to Patient: Ketorolac [Toradol] 10 mg PO Q6H PRN PRN #20 tab PRN Reason: Pain Primary Care Physician: Esperanza Baird MD [Primary Care Provider] - Please Follow Up With: Santiago Sanderson MD - Please call [phone] to schedule an appointment. When: 7 days after your surgery Disposition: Home Minutes spent on discharge:: 32 Patient Condition:: Good Medical Necessity - Tobacco Use Smoking Status: Current every day smoker Tobacco Use: Cigarettes Meaningful Use Info Meaningful Use Diagnoses (Choose all that apply): None applicable Code Visit Inpatient E&M: 73173 Disch Hosp
[2018-03-15] MEDS: Ketorolac 10 MG Tablet PO (09:46)
[2018-03-15 10:00] LABS: Hep C Antibodies <0.1 s/co ratio (0.0-0.9)
--- NOTE | 2018-03-16 15:40 | CASEMGMT ---
MARIBELL DRAKE Discharge Follow-up Phone Call: BECKY: Dafne Strata: 4 Call Date: 03/16/18 Discharge Date: 03/15/18 Time of Call: 1540 Duration: 2 min Admitting Diagnosis: Cholecystitis Patient states that she is doing better since she picked up her pain medication prescriptions. Patient stated she had no other questions regarding discharge instructions. MARIBELL DRAKE instructed patient to call Dr. Sanderson's office to schedule follow up appt.
[2018-03-16 16:07] LABS: Cytoplasmic Ab (C-ANCA) <1:20 titer (Neg:<1:20)
[2018-03-18 10:36] LABS: Perinuclear Ab (P-ANCA) <1:20 titer (Neg:<1:20)
[2018-03-18 10:40] LABS: ANTINUCLEAR ANTIBODIES DIRECT Negative (Negative)
== END 2018-03-15 10:10 | disposition home or self-care (01) | DRG 419 ==
LOC: ED 00:40 → MS3 03:50
PROVIDERS: Anesthesiology; Student in an Organized Health Care Education/Training Program; Surgery; Admitting Provider Internal Medicine; Emergency Provider Emergency Medicine; Family Provider Internal Medicine; PCP Internal Medicine
PROC: 0FT44ZZ Resection of Gallbladder, Percutaneous Endoscopic Approach (ICD-10-PCS; CPT 47610; principal; 2018-03-14 07:30)
DX: K80.12 Calculus of gallbladder with acute and chronic cholecystitis without obstruction (principal); R74.0 Nonspecific elevation of levels of transaminase and lactic acid dehydrogenase [LDH]; J44.9 Chronic obstructive pulmonary disease, unspecified; M54.9 Dorsalgia, unspecified; G89.29 Other chronic pain; K82.8 Other specified diseases of gallbladder; F17.210 Nicotine dependence, cigarettes, uncomplicated; F11.11 Opioid abuse, in remission; E78.5 Hyperlipidemia, unspecified; I10 Essential (primary) hypertension; K75.9 Inflammatory liver disease, unspecified; G40.909 Epilepsy, unspecified, not intractable, without status epilepticus; E55.9 Vitamin D deficiency, unspecified; Z79.899 Other long term (current) drug therapy; K21.9 Gastro-esophageal reflux disease without esophagitis
CPT/HCPCS: 36415; 74022; 74178; 74300; 76000; 76705; 80048; 80053; 80074; 80076; 80307; 82140; 82150; 83690; 85025; 85610; 85730; 86038; 86225; 86235; 86256; 88304; 93005; 99284; 99406; J7030; J7040; J7120; Q9967; A4216; J1610; J2405

== ENCOUNTER → 2018-05-04 10:24 | Outpatient (CLI) | payer MEDICARE, SELFPAY ==
[2018-05-04 10:48] LABS: Hematocrit 41.8 % (37-47); Hemoglobin 13.9 g/dl (12.0-15.0); Mean Corp Hgb Conc 33.3 g/gl (32-36); Mean Corpuscular Hgb 30.8 pg (27.0-32.0); Mean Corpuscular Volume 92.5 fL (81-99); Mean Platelet Vol. 9.2 fl (6.2-12.0); Platelet Count 551 K/mm3 (150-450); RBC Distribution Width CV 13.7 % (11.6-14.6); RBC Distribution Width SD 45.4 fl (35.1-43.9); Red Blood Count 4.52 M/mm3 (4.2-5.4); White Blood Count 9.8 K/mm3 (4.4-11.0)
[2018-05-04 10:49] LABS: Scan Indicated on CBC? Y/N NO
[2018-05-04 11:37] LABS: ALB/GLOB Ratio 0.9 RATIO (0.9-2.4); AST(SGOT) 20 U/L (15-37); Alanine Aminotransfer ALT/SGPT 22 U/L (13-56); Albumin, Serum 3.4 g/dL (3.2-5.0); Alkaline Phosphatase 115 U/L (45-117); Anion Gap 5 (5-15); BUN 11 mg/dL (7-18); BUN/Creat Ratio 16.2 RATIO (10-20); Calcium,Total 8.8 mg/dL (8.5-10.1); Chloride 104 mmol/L (98-107); Creatinine, Serum 0.68 mg/dL (0.55-1.02); EST Glomerular Filtration Rate 92 mL/min (>60); Est Glom Filt Rate - Afr Amer 111 mL/min (>60); Globulin 3.7 g/dL (2.2-4.2); Glucose 90 mg/dL (74-106); Potassium 4.6 mmol/L (3.5-5.1); Protein, Total 7.1 g/dL (6.4-8.2); Sodium Level 140 mmol/L (136-145); T4 Free Direct 1.08 ng/dL (0.76-1.46)
== END ==
PROVIDERS: Family Provider Internal Medicine; PCP Internal Medicine; Visit Provider Nurse Practitioner Family
DX: R74.8 Abnormal levels of other serum enzymes (principal); R63.5 Abnormal weight gain; R53.83 Other fatigue
CPT/HCPCS: 36415; 80053; 84439; 84443; 85027

== ENCOUNTER 2018-06-04 08:27 | Outpatient (RCR) | payer MEDICARE, SELFPAY | END 2018-06-18 23:59 | LOC: NS 08:27 | PROVIDERS: Family Provider Internal Medicine; PCP Internal Medicine; Visit Provider Nurse Practitioner Family | DX: E66.9 Obesity, unspecified (principal); Z68.32 Body mass index [BMI] 32.0-32.9, adult; Z71.3 Dietary counseling and surveillance ==

== ENCOUNTER 2018-06-08 01:23 | Emergency (ER) | payer MEDICARE, SELFPAY ==
[2018-06-08 01:23] VITALS: BP 157/99; PULSE 105; RESP 20; TEMP 36.8; O2SAT 98; BMI 34.4
[2018-06-08 01:29] VITALS: BP 141/98; RESP 17
--- NOTE | 2018-06-08 02:12 | ED.VIS.GEN ---
History of Present Illness Chief Complaint: Anxiety Informant: Patient Onset: Days - 3 Context: Gradual Onset Timing: Waxes and wanes - but fairly constant Quality: pressure/heaviness Location: substernal Current Severity: gone Maximum Severity: Moderate Worsened by: being more anxious/panicky Relieved by: calming down, such as now Associated Symptoms: sob Narrative: Patient states she has been feeling very panicky off and on for the past 3 days, regarding some medical records where someone circled something that was not true, and they will not let me see them. She has several psychiatric diagnoses, including dissociative personality disorder, bipolar disorder, posttraumatic stress disorder, and anxiety disorder. She is in counseling and using her counseling techniques to calm herself down today, she is feeling better now. However for the past 3 days she has been having chest pressure and shortness of breath and racing heartbeat, she is pretty sure it is because of her panic gain and anxiety over these scenarios, but wants to make sure she is okay. She states the chest discomfort is gone at this time but was there the majority of the past 3 days. No known history of heart disease. - Past Medical History (1) PTSD (post-traumatic stress disorder) Status: Chronic (2) Bipolar disorder Status: Chronic (3) COPD (chronic obstructive pulmonary disease) Status: Chronic (4) Hyperlipidemia Status: Chronic (5) Hypertension Status: Chronic (6) Opioid dependence Status: Chronic (7) Tobacco abuse Status: Chronic Past Medical History - Allergies and Home Meds Allergies/Adverse Reactions: Allergies lurasidone [From Latuda] Allergy (Verified 05/20/18 15:52) Other naproxen Allergy (Verified 05/20/18 15:52) Hives paliperidone [From Invega] Allergy (Verified 05/20/18 15:52) increased psychiatric symptoms trazodone Allergy (Verified 05/20/18 15:52) Other theophylline Adverse Reaction (Verified 05/20/18 15:52) Other SLOBID Adverse Reaction (Uncoded 03/13/18 00:15) Other Primary Care Physician: Esperanza Baird MD [Primary Care Provider] - 3-5 Days if not improving Surgical History: hysterectomy, - - C-sections - 3, abdominal hysterectomy, hernia repair with mesh?. Smoking Status: Current every day smoker Drugs: Cocaine - none recent, Heroin - none recent - Family History Maternal Family History: Family History (Last Updated 05/20/18 @ 15:33 by Cassandra Blanco) Brother Colon cancer Aunt Obesity Sister Obesity Mother Rheumatoid arthritis Family History: Reports: No pertinent history Paternal Family History: Family History (Last Updated 05/20/18 @ 15:33 by Cassandra Blanco) Brother Colon cancer Aunt Obesity Sister Obesity Mother Rheumatoid arthritis Family History: Reports: No pertinent history Sibling Family History: Family History (Last Updated 05/20/18 @ 15:33 by Cassandra Blanco) Brother Colon cancer Aunt Obesity Sister Obesity Mother Rheumatoid arthritis Family History: Reports: Cancer Review of Systems All systems negative except as indicated Cardiovascular: Reports: Chest pain, Palpitations, Heart racing Respiratory: Reports: Dyspnea Psych: Reports: Anxiety. Denies: Depression, Suicidal thoughts, Suicidal ideations Physical Exam Vital Signs/Narrative: Vital Signs Temp Pulse Resp BP Pulse Ox 06/08/18 01:29 17 141/98 H 06/08/18 01:23 98.2 F 105 H 20 H 157/99 H 98 Inital Vital Signs reviewed: Yes General: Well nourished, Well developed Head: Normocephalic, Atraumatic Eyes: Perrl, EOMI ENT: Moist mucous membranes, No rhinorrhea Neck: Supple, Nontender Cardiovascular: Regular rate, Regular rhythm, No murmurs Respiratory: No distress, CTA bilaterally, Chest nontender Abdomen: Soft, Nontender, Nondistended, Normal bowel sounds Back: Nontender, Normal Inspection Extremities: Nontender, No edema Skin: Normal color, No rash Neurological: Alert, Oriented x3, Cranial nerves II-XII grossly intact, Normal Strength, Normal Sensation Psychological: - - anxious, almost tearful, controlled Diagnostic/Tx/Re-eval Chest X-Ray - ED: 1 View, Read by ED Physician, No Acute Disease Laboratory Tests 06/08/18 06/08/18 02:20 02:20 WBC 10.4 RBC 4.61 Hgb 13.7 Hct 41.9 MCV 90.9 MCH 29.7 MCHC 32.7 RDW 13.5 RDW Differential 44.5 H Plt Count 479 H MPV 9.4 Immature Gran % (Auto) 0.500 Neut % (Auto) 70.0 Lymph % (Auto) 19.9 Duchesne % (Auto) 8.2 Eos % (Auto) 1.2 Baso % (Auto) 0.2 Absolute Neuts (auto) 7.3 Absolute Lymphs (auto) 2.06 Total Counted Not Reportable Sodium 139 Potassium 3.6 Chloride 108 H Carbon Dioxide 24.0 Anion Gap 7 BUN 18 Creatinine 0.71 Estim Creat Clear Calc 59.61 Est GFR (MDRD) Af Amer 106 Est GFR (MDRD) Non-Af 88 BUN/Creatinine Ratio 25.4 H Glucose 107 H Calcium 9.1 Troponin I < 0.015 - Rhythm Strip Rhythm Strip: Sinus Rhythm Rate: 80 Ectopy: None - EKG Initial EKG Interpretation: Sinus Rhythm, No Acute Injury Pattern, - - nml axis, nml EKG Prior: Unchanged - Medical Decision Making Workup is negative for acute cardiac disease. Her x-ray shows no acute abnormality. She is reassured. She was offered something for anxiety and declines. She is feeling better. Encouraged to follow-up with her doctor. ED Disposition - Plan for ED Patient: Disposition: Home or Assisted Living Chief Complaint: Anxiety Diagnosis: Chest pain, unspecified, Anxiety attack Instructions: ED Panic Attack Referrals: Esperanza Baird MD [Primary Care Provider] - 3-5 Days if not improving
[2018-06-08 02:13] VITALS: BP 140/83; PULSE 87; RESP 14; O2SAT 98
[2018-06-08 02:27] LABS: Absolute Lymphocyte Count 2.06 X10^3/ul (0.83-4.51); Absolute Neutrophil Count 7.3 X10^3/uL (2.0-7.7); Basophil# 0.02 X10^3/uL; Basophil% 0.2 % (0-1); Eosinophil# 0.12 X10^3/uL; Eosinophils% 1.2 % (0-5); Hematocrit 41.9 % (37-47); Hemoglobin 13.7 g/dl (12.0-15.0); Lymphocyte # 2.06 X10^3/ul (4.0); Lymphocyte % 19.9 % (19-41); Mean Corp Hgb Conc 32.7 g/gl (32-36); Mean Corpuscular Hgb 29.7 pg (27.0-32.0); Mean Corpuscular Volume 90.9 fL (81-99); Mean Platelet Vol. 9.4 fl (6.2-12.0); Monocyte# 0.85 X10^3/uL; Monocyte% 8.2 % (0-10); Neutrophil # 7.26 X10^3/uL (2.7-7.7); Platelet Count 479 K/mm3 (150-450); RBC Distribution Width CV 13.5 % (11.6-14.6); RBC Distribution Width SD 44.5 fl (35.1-43.9); Red Blood Count 4.61 M/mm3 (4.2-5.4); White Blood Count 10.4 K/mm3 (4.4-11.0)
[2018-06-08 02:33] LABS: POSITIVE COUNT NO; POSITIVE DIFFERENTIAL NO; POSITIVE MORPHOLOGY NO
[2018-06-08 02:55] LABS: Anion Gap 7 (5-15); BUN 18 mg/dL (7-18); BUN/Creat Ratio 25.4 RATIO (10-20); Calcium,Total 9.1 mg/dL (8.5-10.1); Chloride 108 mmol/L (98-107); Creatinine, Serum 0.71 mg/dL (0.55-1.02); EST Glomerular Filtration Rate 88 mL/min (>60); Est Glom Filt Rate - Afr Amer 106 mL/min (>60); Estimated Creatinine Clearance 59.61 ml/min; Glucose 107 mg/dL (74-106); Potassium 3.6 mmol/L (3.5-5.1); Sodium Level 139 mmol/L (136-145)
[2018-06-08 03:42] VITALS: RESP 16
== END 2018-06-08 03:42 | disposition home or self-care (01) ==
PROVIDERS: Emergency Provider Emergency Medicine; Family Provider Internal Medicine; PCP Internal Medicine
DX: R07.9 Chest pain, unspecified (principal); F41.9 Anxiety disorder, unspecified; F17.200 Nicotine dependence, unspecified, uncomplicated
CPT/HCPCS: 36415; 71046; 80048; 84484; 85025; 93005; 99285

== ENCOUNTER 2018-06-20 10:24 | Emergency (ER) | payer MEDICARE, SELFPAY ==
[2018-06-20 10:26] VITALS: BP 121/76; PULSE 65; RESP 16; TEMP 36.6; O2SAT 98
--- NOTE | 2018-06-20 11:25 | ED.VISSUMM ---
- ER Visit Summary Date of Service: 06/20/18 Chief Complaint: [] Very sleepy took extra sleeping pills to help her sleep History of Present Illness: The patient is a 67 F [] for behavioral health disorder bipolar disorder, apparently she was to go to the medical center today. She is brought into the emergency room by a reverswati who is known her for a long time because she seems very sleepy. The patient denies any complaints of any kind denies head neck chest or abdominal pain her bipolar condition is stable she reports she is taking her medications keep all of her appointments this is confirmed by the Reverend, she apparently was woken up multiple times last night by her son so she took an extra sleeping pill this morning and then when she got up to go to the medical center she was very tired she kept falling asleep in the medical center and she was brought in. Again she has no complaints of any kind she is awake alert easy easily arousable answers questions appropriately indicating nothing is bothering her Physical Examination: [] Vital signs are within normal range she is awake and alert easily arousable she has slight hoarseness hoarseness or voice it is not unusual HEENT exam is normal neck supple lungs clear heart tones normal abdomen soft nontender awake alert moving all 4 extremities she lives with her son who she states is a recovering cocaine addict she does not use or illicit drugs she is not homicidal or suicidal she did not do anything to harm herself Wants no therapy from the emergency department or workup, she was only brought in by the Reverend she was not headed to the emergency department by her own, she understands why she is here she appreciates the concern indicates she just wants to go home and sleep, and again she is awake alert airways intact there is no signs of psychomotor agitation delirium or any other abnormal Observe the patient in the emergency department provided her oral fluids I spoke with Erin at length who is comfortable taking the patient home to continue outpatient management, I cautioned the patient to only use a sleeping medication at bedtime and she agrees Test Results: [] Emergency Department Course and Treatment: [] Treatment Plan: [] Disposition: [] Home stable Impression: [] Excessive sleepiness related to overusing sleeping pill This note was generated with KlickSportsation software. It may contain incorrect words, spelling, and punctuation that were not noted in review of the chart prior to signing ED Disposition - Plan for ED Patient: Chief Complaint: General Illness Instructions: ED Manic Depression Referrals: Esperanza Baird MD [Primary Care Provider] -
--- NOTE | 2018-06-20 11:28 | ED.DCSUM_ITS ---
- ER Visit Summary Date of Service: 06/20/18 Chief Complaint: [] Very sleepy took extra sleeping pills to help her sleep History of Present Illness: The patient is a 67 F [] for behavioral health disorder bipolar disorder, apparently she was to go to [facility] today. She is brought into the emergency room by a reverswati who is known her for a long time because she seems very sleepy. The patient denies any complaints of any kind denies head neck chest or abdominal pain her bipolar condition is stable she reports she is taking her medications keep all of her appointments this is confirmed by the Reverend, she apparently was woken up multiple times last night by her son so she took an extra sleeping pill this morning and then when she got up to go to [facility] she was very tired she kept falling asleep in [facility] and she was brought in. Again she has no complaints of any kind she is awake alert easy easily arousable answers questions appropriately indicating nothing is bothering her Physical Examination: [] Vital signs are within normal range she is awake and alert easily arousable she has slight hoarseness hoarseness or voice it is not unusual HEENT exam is normal neck supple lungs clear heart tones normal abdomen soft nontender awake alert moving all 4 extremities she lives with her son who she states is a recovering cocaine addict she does not use or illicit drugs she is not homicidal or suicidal she did not do anything to harm herself Wants no therapy from the emergency department or workup, she was only brought in by the Reverend she was not headed to the emergency department by her own, she understands why she is here she appreciates the concern indicates she just wants to go home and sleep, and again she is awake alert airways intact there is no signs of psychomotor agitation delirium or any other abnormal Observe the patient in the emergency department provided her oral fluids I spoke with Erin at length who is comfortable taking the patient home to continue outpatient management, I cautioned the patient to only use a sleeping medication at bedtime and she agrees Test Results: [] Emergency Department Course and Treatment: [] Treatment Plan: [] Disposition: [] Home stable Impression: [] Excessive sleepiness related to overusing sleeping pill This note was generated with [employer] software. It may contain incorrect words, spelling, and punctuation that were not noted in review of the chart prior to signing ED Disposition - Plan for ED Patient: Chief Complaint: General Illness Instructions: ED Manic Depression Referrals: Esperanza Baird MD [Primary Care Provider] -
--- NOTE | 2018-06-20 11:30 | ED.DEP ---
ED Disposition - Plan for ED Patient: Chief Complaint: General Illness Instructions: ED Manic Depression Referrals: Esperanza Baird MD [Primary Care Provider] -
[2018-06-20 12:04] VITALS: BP 118/74; PULSE 68; PULSE 71; RESP 18; O2SAT 95
== END 2018-06-20 12:22 | disposition home or self-care (01) ==
LOC: ED 11:44
PROVIDERS: Emergency Provider Emergency Medicine; Family Provider Internal Medicine; PCP Internal Medicine
DX: T45.0X1A Poisoning by antiallergic and antiemetic drugs, accidental (unintentional), initial encounter (principal); G47.10 Hypersomnia, unspecified; R53.83 Other fatigue; Y92.009 Unspecified place in unspecified non-institutional (private) residence as the place of occurrence of the external cause; J44.9 Chronic obstructive pulmonary disease, unspecified; Z79.899 Other long term (current) drug therapy
CPT/HCPCS: 99282

== ENCOUNTER 2018-06-24 08:37 | Emergency (ER) | payer MEDICARE, SELFPAY ==
[2018-06-24 08:39] VITALS: BP 169/104; PULSE 90; RESP 17; TEMP 36.6; O2SAT 96; BMI 32.7
--- NOTE | 2018-06-24 08:51 | EKG12_ITS ---
Test Reason : ILLNESS Blood Pressure : / mmHG Vent. Rate : 081 BPM Atrial Rate : 081 BPM P-R Int : 168 ms QRS Dur : 090 ms QT Int : 384 ms P-R-T Axes : 063 061 059 degrees QTc Int : 446 ms Normal sinus rhythm Normal ECG Confirmed by EMY KHAN ([id number]), desk editor DONATO CISSE ([id number] on 06/29/2018 2:38:39 PM Referred By: Esperanza Baird Confirmed By:EMY KHAN
--- NOTE | 2018-06-24 08:58 | ED.VISSUMM ---
- ER Visit Summary Date of Service: 06/24/18 Chief Complaint: Weakness History of Present Illness: The patient is a 67 F who has a long mental health history including bipolar disorder major depression and PTSD. She states that about 10 days ago she began taking a new medication (FANAPT). She states that she is now experiencing every side effect that is listed on the package insert. Most notably she notes generalized body aches nausea weakness fatigue sleepiness and headache. She states on Thursday she was seen in the emergency department because she kept falling asleep at [employer]. She states that she is really only been sleeping a few hours each night. On Thursday she also states that she went shopping was riding a lot of checks but does not remember doing it. She states that this is all because of that medication. She states she does not wish to see that psychiatrist or the counseling center anymore. She does not wish to be hospitalized from a psychiatric standpoint. She states that she last took her new medication on Thursday night but when pointed out that the medication is still in her blister pack she states that yes indeed she must have still taken it last night. She did not take any of her medications this morning including her oral hypertensives and her Depakote. She does note that she took some Benadryl earlier this morning. Physical Examination: Noted hypertension 169/104 heart rate of 90 respirations are 17 pulse ox 96% temperature 97.8 Gen: Well-nourished well-developed Head: Normocephalic atraumatic Eyes: Perrl EOMI ENT: TMs clear no rhinorrhea moist mucous membranes Neck: Supple no lymphadenopathy no JVD nontender CVS: Regular rate rhythm no murmurs normal S1-S2 Respiratory: No distress clear to auscultation bilaterally chest nontender Abdomen: Soft nontender nondistended normal bowel sounds no masses Back: Nontender Extremity: Nontender no edema Skin: Normal color no rash Neuro: alert orientated ?3 CN II-XII intact normal strength sensation reflexes gait cerebellar Psych: Agitated but cooperative. She denies suicidal homicidal ideation Test Results: CBC CMP fasting 3.3. EKG is normal sinus and unchanged. Toxicology workup showed a valproic acid of 34. Emergency Department Course and Treatment: I think that a lot of this has to do with the patient's mental health. Probably some combination with changing of medications. She does not wish to speak with mental health. She does not wish to be psychiatrically hospitalized. She does not wish to see her psychiatrist. She does wish to stop her medication. She is advised that if she does stop her medication that she should in fact actually stop it and not continue to take it and wonder why she is experiencing her side effects that she believes is coming from the medicine. At this point patient will be discharged home. The patient was advised that she should not abruptly sever ties with her psychiatrist instead develop a plan psychiatrist. She was advised that she should talk to her doctors before abruptly stopping her medications. Impression: 1. Bipolar disorder This note was generated with [employer] dictation software. It may contain incorrect words, spelling, and punctuation that were not noted in review of the chart prior to signing ED Disposition - Plan for ED Patient: Disposition: Home or Assisted Living Chief Complaint: General Illness Instructions: ED Weakness [facility] [place] Referrals: Esperanza Baird MD [Primary Care Provider] - As soon as possible
--- NOTE | 2018-06-24 09:01 | ED.DCSUM_ITS ---
- ER Visit Summary Date of Service: 06/24/18 Chief Complaint: Weakness History of Present Illness: The patient is a 67 F who has a long mental health history including bipolar disorder major depression and PTSD. She states that about 10 days ago she began taking a new medication (FANAPT). She states that she is now experiencing every side effect that is listed on the package insert. Most notably she notes generalized body aches nausea weakness fatigue sleepiness and headache. She states on Thursday she was seen in the emergency department because she kept falling asleep at [employer]. She states that she is really only been sleeping a few hours each night. On Thursday she also states that she went shopping was riding a lot of checks but does not remember doing it. She states that this is all because of that medication. She states she does not wish to see that psychiatrist or the counseling center anymore. She does not wish to be hospitalized from a psychiatric standpoint. She states that she last took her new medication on Thursday night but when pointed out that the medication is still in her blister pack she states that yes indeed she must have still taken it last night. She did not take any of her medications this morning including her oral hypertensives and her Depakote. She does note that she took some Benadryl earlier this morning. Physical Examination: Noted hypertension 169/104 heart rate of 90 respirations are 17 pulse ox 96% temperature 97.8 Gen: Well-nourished well-developed Head: Normocephalic atraumatic Eyes: Perrl EOMI ENT: TMs clear no rhinorrhea moist mucous membranes Neck: Supple no lymphadenopathy no JVD nontender CVS: Regular rate rhythm no murmurs normal S1-S2 Respiratory: No distress clear to auscultation bilaterally chest nontender Abdomen: Soft nontender nondistended normal bowel sounds no masses Back: Nontender Extremity: Nontender no edema Skin: Normal color no rash Neuro: alert orientated ?3 CN II-XII intact normal strength sensation reflexes gait cerebellar Psych: Agitated but cooperative. She denies suicidal homicidal ideation Test Results: CBC CMP fasting 3.3. EKG is normal sinus and unchanged. Toxicology workup showed a valproic acid of 34. Emergency Department Course and Treatment: I think that a lot of this has to do with the patient's mental health. Probably some combination with changing of medications. She does not wish to speak with mental health. She does not wish to be psychiatrically hospitalized. She does not wish to see her psychiatrist. She does wish to stop her medication. She is advised that if she does stop her medication that she should in fact actually stop it and not continue to take it and wonder why she is experiencing her side effects that she believes is coming from the medicine. At this point patient will be discharged home. The patient was advised that she should not abruptly sever ties with her psychiatrist instead develop a plan psychiatrist. She was advised that she should talk to her doctors before abruptly stopping her medications. Impression: 1. Bipolar disorder This note was generated with HowDo dictation software. It may contain incorrect words, spelling, and punctuation that were not noted in review of the chart prior to signing ED Disposition - Plan for ED Patient: Disposition: Home or Assisted Living Chief Complaint: General Illness Instructions: ED Weakness [facility] [place] Referrals: Esperanza Baird MD [Primary Care Provider] - As soon as possible
[2018-06-24 09:26] LABS: Absolute Lymphocyte Count 1.53 X10^3/ul (0.83-4.51); Basophil# 0.04 X10^3/uL; Basophil% 0.5 % (0-1); Eosinophil# 0.16 X10^3/uL; Eosinophils% 1.9 % (0-5); Hematocrit 41.5 % (37-47); Hemoglobin 13.3 g/dl (12.0-15.0); Lymphocyte # 1.53 X10^3/ul (4.0); Lymphocyte % 17.8 % (19-41); Mean Corpuscular Hgb 29.7 pg (27.0-32.0); Mean Corpuscular Volume 92.6 fL (81-99); Mean Platelet Vol. 9.6 fl (6.2-12.0); Monocyte% 10.5 % (0-10); Neutrophil # 5.95 X10^3/uL (2.7-7.7); Platelet Count 509 K/mm3 (150-450); RBC Distribution Width CV 13.5 % (11.6-14.6); RBC Distribution Width SD 44.5 fl (35.1-43.9); Red Blood Count 4.48 M/mm3 (4.2-5.4); White Blood Count 8.6 K/mm3 (4.4-11.0)
[2018-06-24] MEDS: Lisinopril 20 MG Tablet PO (09:31)
[2018-06-24] MEDS: Metoprolol Tartrate 25 MG Tablet PO (09:31)
[2018-06-24 09:34] LABS: POSITIVE COUNT NO; POSITIVE DIFFERENTIAL NO; POSITIVE MORPHOLOGY NO
[2018-06-24 09:40] LABS: Color, Urine Yellow (Yellow); Glucose, Dipstick Normal (Normal); Ketone-Dipstick 5 mg/dl (Negative); Leukocyte Esterase-Dipstick 25 /ul (Negative); Nitrite-Dipstick Negative (Negative); Occult Blood-Urine 10 /ul (Negative); Protein-Dipstick 15 mg/dl (Negative); Urine Clarity Clear (Clear); Urine Urobilinogen 8 mg/dl (Normal); Urine pH 6.5 (5.0 - 8.0)
[2018-06-24 09:44] LABS: ALB/GLOB Ratio 0.9 RATIO (0.9-2.4); AST(SGOT) 26 U/L (15-37); Alanine Aminotransfer ALT/SGPT 23 U/L (13-56); Albumin, Serum 3.6 g/dL (3.2-5.0); Alkaline Phosphatase 97 U/L (45-117); Anion Gap 11 (5-15); BUN 13 mg/dL (7-18); Chloride 105 mmol/L (98-107); Creatinine, Serum 0.68 mg/dL (0.55-1.02); EST Glomerular Filtration Rate 91 mL/min (>60); Est Glom Filt Rate - Afr Amer 110 mL/min (>60); Estimated Creatinine Clearance 65.23 ml/min; Globulin 3.8 g/dL (2.2-4.2); Glucose 86 mg/dL (74-106); Lipase 69 U/L (73-393); Potassium 3.3 mmol/L (3.5-5.1); Protein, Total 7.4 g/dL (6.4-8.2); Sodium Level 142 mmol/L (136-145)
[2018-06-24 09:55] LABS: Urine Bilirubin Dipstick 1 mg/dL (Negative)
[2018-06-24 09:58] LABS: Bacteria RARE /hpf (None Seen); Mucous, Urine 2+ /hpf (<or=2+); Red Blood Cells-Urine 0-5 SEEN /hpf (0-5); Squamous Epithelial Cells - UA 5-10 SEEN /hpf (5-10); White Blood Cells 0-5 SEEN /hpf (0-5)
[2018-06-24 10:16] LABS: Amphetamine Urine VISTA NEGATIVE (<1000 ng/mL); Barbiturate Urine VISTA NEGATIVE (< 200 ng/mL); Benzodiazepine Urine VISTA NEGATIVE (< 200 ng/mL); Cocaine Urine VISTA NEGATIVE (< 300 ng/mL); Ecstacy Urine VISTA NEGATIVE (< 500 ng/mL); Methadone Urine VISTA NEGATIVE (< 300 ng/mL); PCP Urine VISTA NEGATIVE (< 25 ng/mL); THC Urine VISTA NEGATIVE (< 50 ng/mL); Vista UDS pH Range 6
[2018-06-24 10:24] LABS: Alcohol, Blood (Medical)-Serum < 3.0 mg/dL; Valproic Acid (Depakene) Level 34 ug/mL (50-100)
[2018-06-24 11:01] VITALS: BP 112/78; PULSE 75; RESP 12; O2SAT 93
== END 2018-06-24 11:04 | disposition home or self-care (01) ==
PROVIDERS: Emergency Provider Emergency Medicine; Family Provider Internal Medicine; PCP Internal Medicine
DX: F31.9 Bipolar disorder, unspecified (principal); R53.83 Other fatigue; F43.10 Post-traumatic stress disorder, unspecified; J44.9 Chronic obstructive pulmonary disease, unspecified; K21.9 Gastro-esophageal reflux disease without esophagitis; I10 Essential (primary) hypertension; E78.00 Pure hypercholesterolemia, unspecified; Z72.0 Tobacco use; Z79.51 Long term (current) use of inhaled steroids; Z79.899 Other long term (current) drug therapy
CPT/HCPCS: 80053; 80164; 80307; 80320; 81001; 83690; 84484; 85025; 93005; 99285; A4216; G0480

== ENCOUNTER 2018-08-02 22:55 | Emergency (ER) | payer MEDICARE, SELFPAY ==
[2018-08-02 22:56] VITALS: BP 141/85; PULSE 73; RESP 16; TEMP 36.3; O2SAT 97; BMI 32.9
--- NOTE | 2018-08-02 23:15 | RAD_ITS ---
STUDY: X-RAY - UNILATERAL RIBS ( LEFT ) WITH CHEST REASON FOR EXAM: Female, 68 years old. Patient fell 3 days ago. Left lower rib pain. TECHNIQUE - RIBS: 4 view(s) of the ribs. TECHNIQUE - CHEST: 6 COMPARISON: None. FINDINGS - RIBS: There is no demonstrated acute rib fracture. FINDINGS - CHEST: The lungs are clear and expanded. There is no demonstrated pleural abnormality. Normal size heart. There are calcified right hilar nodes. Normal visualized pulmonary arteries. There is atherosclerotic calcification of the aortic arch with tortuosity. There are degenerative changes of the visualized thoracic spine. There is calcification adjacent to the left humeral head consistent with calcific tendinitis. There is no demonstrated abnormality of the visualized soft tissue structures of the upper abdomen. RAD/Ribs Uni Min 3V w/PA Chest IMPRESSION: RIBS: No demonstrated acute rib fracture. CHEST: No active pulmonary disease. Electronically Signed: Ben Doe MD at 23:51 EDT Tel , Service support ,
--- NOTE | 2018-08-02 23:17 | ED.VIS.GEN ---
History of Present Illness Chief Complaint: Chest Other Informant: Patient Onset: Days - 2 Timing: Continuous Quality: ache/sore Location: left lower anterior ribs/chest Current Severity: Moderate Maximum Severity: Moderate Worsened by: palpation, deep inspiration Relieved by: breathing easy/shallow Associated Symptoms: feels sob. no other injuries. Narrative: Patient was going to get her mail and there was a ledge of concrete at the end of her driveway that she tripped on, falling to the driveway. - Past Medical History (1) History of skin cancer Status: Resolved (2) Bipolar disorder Status: Chronic (3) COPD (chronic obstructive pulmonary disease) Status: Chronic (4) Chronic back pain Status: Chronic (5) Dissociative identity disorder Status: Chronic (6) Essential thrombocythemia Status: Chronic (7) GERD (gastroesophageal reflux disease) Status: Chronic (8) Hyperlipidemia Status: Chronic (9) Hypertension Status: Chronic (10) Noncompliance Status: Chronic (11) Opioid dependence Status: Chronic (12) PTSD (post-traumatic stress disorder) Status: Chronic (13) Rheumatoid arthritis Status: Chronic (14) Seizure Status: Chronic Past Medical History - Allergies and Home Meds Allergies/Adverse Reactions: Allergies lurasidone [From Latuda] Allergy (Verified 08/02/18 22:59) Other naproxen Allergy (Verified 08/02/18 22:59) Hives paliperidone [From Invega] Allergy (Verified 08/02/18 22:59) increased psychiatric symptoms trazodone Allergy (Verified 08/02/18 22:59) Other theophylline Adverse Reaction (Verified 08/02/18 22:59) Other SLOBID Adverse Reaction (Uncoded 08/02/18 22:59) Other Primary Care Physician: Esperanza Baird MD [Primary Care Provider] - Surgical History: hysterectomy, - - C-sections - 3, abdominal hysterectomy, hernia repair with mesh?. Smoking Status: Former smoker - Family History Maternal Family History: Family History (Last Reviewed 07/14/18 @ 13:27 by Aurea Wallace) Brother Colon cancer Aunt Obesity Sister Obesity Mother Rheumatoid arthritis Family History: Reports: No pertinent history Paternal Family History: Family History (Last Reviewed 07/14/18 @ 13:27 by Aurea Wallace) Brother Colon cancer Aunt Obesity Sister Obesity Mother Rheumatoid arthritis Family History: Reports: No pertinent history Sibling Family History: Family History (Last Reviewed 07/14/18 @ 13:27 by Aurea Wallace) Brother Colon cancer Aunt Obesity Sister Obesity Mother Rheumatoid arthritis Family History: Reports: Cancer Review of Systems Eyes: Denies: Visual changes - bilaterally, Diplopia Cardiovascular: Reports: Chest pain Respiratory: Reports: Dyspnea, Cough - chronic. Denies: Sputum Gastrointestinal: Denies: Abdominal pain, Nausea, Vomiting, Hematochezia Genitourinary: Denies: Dysuria, Hematuria Musculoskeletal: Reports: Back pain - chronic, unchanged. Denies: Neck pain, Extremity Pain Skin: Denies: Abrasions, Wounds Neurological: Denies: Headache, Weakness, Parasthesia, Numbness Physical Exam Vital Signs/Narrative: Vital Signs Temp Pulse Resp BP Pulse Ox 08/02/18 22:56 97.4 F L 73 16 141/85 H 97 Inital Vital Signs reviewed: Yes General: Well nourished, Well developed, - - nad Head: Normocephalic, Atraumatic Eyes: Perrl, EOMI ENT: Moist mucous membranes, No rhinorrhea Neck: Supple, Nontender - FROM, - - trachea midline Cardiovascular: Regular rate, Regular rhythm. Negative for: Tachycardia Respiratory: No distress, CTA bilaterally - w/ equal BS bilat., Chest tenderness - left anterior lower 3 ribs, inframammary. no crepitance or flail or palpable fracture clinically Abdomen: Soft, Nontender, Nondistended, Normal bowel sounds Back: Nontender, Normal Inspection Extremities: Nontender, No edema, - - FROM x 4 Skin: Normal color, No rash, No Trauma Neurological: Alert, Oriented x3, Cranial nerves II-XII grossly intact, Normal Strength, Normal Sensation Psychological: Normal affect Diagnostic/Tx/Re-eval Clinical Impression(s) from Imaging Studies Ribs w/Chest X-Ray 08/02/18 23:15 IMPRESSION: RIBS: No demonstrated acute rib fracture. CHEST: No active pulmonary disease. Electronically Signed: Ben Doe MD at 23:51 EDT Tel , Service support , - Medical Decision Making X-rays show no pneumothorax or radiographic evidence of rib fracture. She is on Suboxone for remote opiate abuse, and wants to make sure she does not get narcotics, she requests Toradol which she has had before and tolerates. She felt better after an injection. She is reassured and advised to use ice and [id number] medications and she is comfortable with that plan. ED Disposition - Plan for ED Patient: Disposition: Home or Assisted Living Chief Complaint: Chest Other Diagnosis: Contusion of rib on left side Instructions: ED Contusion Chest Wall Referrals: Esperanza Baird MD [Primary Care Provider] - 10-14 Days if not better
[2018-08-02] MEDS: Ketorolac 60 MG/2 ML Vial 30 MG IM (23:24)
[2018-08-03 00:20] VITALS: BP 134/79; PULSE 97; RESP 22; O2SAT 97
--- NOTE | 2018-08-03 00:20 | ED.RN ---
THIS NURSE REVIEWED D/C INSTRUCTIONS WITH PT. PT VERBALIZED UNDERSTANDING OF INSTRUCTIONS. PT DENIES FURTHER NEEDS OR QUESTIONS AT THIS TIME. PT AMBULATES FROM ROOM ON OWN WITHOUT ASSISTANCE FROM STAFF
== END 2018-08-03 00:21 | disposition home or self-care (01) ==
PROVIDERS: Emergency Provider Emergency Medicine; Family Provider Internal Medicine; PCP Internal Medicine
DX: S20.212A Contusion of left front wall of thorax, initial encounter (principal); M06.9 Rheumatoid arthritis, unspecified; W18.09XA Striking against other object with subsequent fall, initial encounter; Y93.01 Activity, walking, marching and hiking; Y92.89 Other specified places as the place of occurrence of the external cause; Y99.8 Other external cause status
CPT/HCPCS: 71101; 96372; 99282

== ENCOUNTER 2018-08-17 14:30 | Outpatient (RCR) | payer MEDICARE, SELFPAY | END 2018-08-18 23:59 | LOC: NS 14:30 | PROVIDERS: Family Provider Internal Medicine; PCP Internal Medicine; Visit Provider Nurse Practitioner Family | DX: E66.9 Obesity, unspecified (principal); Z68.32 Body mass index [BMI] 32.0-32.9, adult; Z71.3 Dietary counseling and surveillance | CPT/HCPCS: 97802; 97803 ==

== ENCOUNTER 2018-08-26 10:10 | Day surgery (SDC) | payer MEDICARE, SELFPAY ==
[2018-08-26 10:28] VITALS: BP 150/80; PULSE 95; RESP 14; TEMP 36.7; O2SAT 94; BMI 32.1
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
[2018-08-26 11:30] VITALS: BP 142/81; BP 150/80; PULSE 80; RESP 15; TEMP 36.6; O2SAT 98
--- NOTE | 2018-08-26 11:30 | OP.ENDO_ITS ---
Patient Name: Giovana Valentin Procedure Date: 08/26/2018 10:37 AM Date of : 1950 Age: 68 Procedure: Colonoscopy Indications: Family history of colon cancer in a first-degree relative Providers: Mario Vyas MD Referring MD: Mario Vyas MD Medicines: Monitored Anesthesia Care Patient Profile: This is a 68 year old female. Refer to note in patient chart for documentation of history and physical. Last Colonoscopy: 3 years ago. Complications: No immediate complications. Procedure: Pre-Anesthesia Assessment: - Prior to the procedure, a History and Physical was performed, and patient medications and allergies were reviewed. The patient's tolerance of previous anesthesia was also reviewed. The risks and benefits of the procedure and the sedation options and risks were discussed with the patient. All questions were answered, and informed consent was obtained. Prior Anticoagulants: The patient has taken no previous anticoagulant or antiplatelet agents. After reviewing the risks and benefits, the patient was deemed in satisfactory condition to undergo the procedure. After I obtained informed consent, the scope was passed under direct vision. Throughout the procedure, the patient's blood pressure, pulse, and oxygen saturations were monitored continuously. The colonoscope was introduced through the anus and advanced to the cecum, identified by appendiceal orifice and ileocecal valve. The colonoscopy was performed without difficulty. The patient tolerated the procedure well. The quality of the bowel preparation was good. Scope In: 11:00:04 AM Scope Withdrawal Time 0 hours 9 minutes 24 seconds Scope Out: 11:24:51 AM Total Procedure Duration Time 0 hours 24 minutes 47 seconds Findings: Non-bleeding internal hemorrhoids were found during retroflexion. The hemorrhoids were Grade II (internal hemorrhoids that prolapse but reduce spontaneously). The exam was otherwise without abnormality on direct and retroflexion views. Impression: - Non-bleeding internal hemorrhoids. - The examination was otherwise normal on direct and retroflexion views. - No specimens collected. Recommendation: - Discharge patient to home. - Resume previous diet. - Continue present medications. - Repeat colonoscopy in 5 years for surveillance. Procedure Code(s): --- Professional --- 42034, Colonoscopy, flexible; diagnostic, including collection of specimen(s) by brushing or washing, when performed (separate procedure) Diagnosis Code(s): --- Professional --- K64.1, Second degree hemorrhoids Z80.0, Family history of malignant neoplasm of digestive organs CPT copyright 2017 [employer]. All rights reserved. The codes documented in this report are preliminary and upon surgical coder review may be revised to meet current compliance requirements. Mario Vyas MD 08/26/2018 11:30:01 AM This report has been signed electronically. Number of Addenda: 0 Note Initiated On: 08/26/2018 10:37 AM
[2018-08-26 11:35] VITALS: BP 143/95; BP 150/80; PULSE 77; RESP 16; O2SAT 98
[2018-08-26 11:40] VITALS: BP 143/83; BP 150/80; PULSE 77; RESP 16; O2SAT 100
[2018-08-26 11:45] VITALS: BP 150/80; BP 154/90; PULSE 80; RESP 16; TEMP 36.3; O2SAT 97
[2018-08-26 12:10] VITALS: BP 150/80
== END 2018-08-26 12:24 | disposition home or self-care (01) ==
LOC: EN 10:10 → AC 10:11
PROVIDERS: Family Provider Internal Medicine; PCP Internal Medicine; Referring Provider Surgery; Visit Provider Surgery
PROC: 0DJD8ZZ Inspection of Lower Intestinal Tract, Via Natural or Artificial Opening Endoscopic (ICD-10-PCS; CPT 45378; principal; 2018-08-26 10:55)
DX: K64.1 Second degree hemorrhoids (principal); Z86.010 Personal history of colon polyps; Z80.0 Family history of malignant neoplasm of digestive organs; K21.9 Gastro-esophageal reflux disease without esophagitis; D64.9 Anemia, unspecified; F41.9 Anxiety disorder, unspecified; F32.9 Major depressive disorder, single episode, unspecified; I10 Essential (primary) hypertension; J44.9 Chronic obstructive pulmonary disease, unspecified; F17.200 Nicotine dependence, unspecified, uncomplicated; J45.909 Unspecified asthma, uncomplicated; R56.9 Unspecified convulsions; Z85.828 Personal history of other malignant neoplasm of skin; Z79.51 Long term (current) use of inhaled steroids; Z79.899 Other long term (current) drug therapy
CPT/HCPCS: 45378; J7120

== ENCOUNTER 2018-08-31 13:00 | Day surgery (SDC) | payer MEDICARE, SELFPAY ==
--- NOTE | 2018-08-30 23:20 | HP.PCM_ITS ---
History and Physical Date of Admission: 08/31/18 Allergies lurasidone [From Latuda] Allergy (Verified 07/22/18 15:01) Other naproxen Allergy (Verified 07/22/18 15:01) Hives paliperidone [From Invega] Allergy (Verified 07/22/18 15:01) increased psychiatric symptoms trazodone Allergy (Verified 07/22/18 15:01) Other theophylline Adverse Reaction (Verified 07/22/18 15:01) Other SLOBID Adverse Reaction (Uncoded 07/22/18 15:01) Other Medications Lisinopril [Zestril] 20 mg PO DAILY 03/24/17 [History Confirmed 07/14/18] Divalproex (ER) [Depakote ER] 500 mg PO BID 06/20/17 [History Confirmed 07/14/18] Pravastatin [Pravachol] 40 mg PO QHS 12/18/17 [History Confirmed 07/14/18] Buprenorphine HCl/Naloxone HCl [Suboxone 8 mg-2 mg Sl Film] 1 ea SL BID 12/24/17 [History Confirmed 07/14/18] Albuterol Inhaler [Ventolin Hfa (SP)] 1 puff INHALATION Q4H PRN PRN 05/20/18 [History Confirmed 07/14/18] calcium carbonate 600 mg calcium (1,500 mg) tablet 600 mg PO BID #60 tab 06/08/18 [Rx Confirmed 07/14/18] metoprolol tartrate 25 mg tablet 25 mg PO DAILY #30 tab 06/08/18 [Rx Confirmed 07/14/18] famotidine 10 mg tablet 10 mg PO DAILY #90 tab 06/16/18 [Rx Confirmed 07/14/18] Sennosides/Docusate Sodium [Senna-S Laxative Tablet] 1 ea PO BID 06/24/18 [History Confirmed 07/14/18] hydrALAZINE [Apresoline] 50 mg PO TID 06/24/18 [History Confirmed 07/14/18] ferrous sulfate 325 mg (65 mg iron) tablet 325 mg PO DAILY #90 tab 07/14/18 [Rx Confirmed 07/14/18] miconazole nitrate 2 % topical powder 1 applic TOPICAL BID #71 g 07/14/18 [Rx Confirmed 07/14/18] PFSH Medical History History of skin cancer (Acute) Dissociative identity disorder (Chronic) COPD (chronic obstructive pulmonary disease) (Acute) History of UTI (Acute) Kidney failure (Acute) Multiple personalities (Chronic) Panic attacks (Chronic) H/O: hysterectomy (Inactive) Surgical History History of 3 sections (Acute) History of hernia repair (Acute) H/O hernia repair (Inactive) History of (Inactive) Family History Brother Colon cancer Aunt Obesity Sister Obesity Mother Rheumatoid arthritis Social History Smoking Status: Former smoker how long ago did patient quit smokin alcohol intake: never substance use type: does not use HPI evaluation for TBSE: HISTORY OF PRESENT ILLNESS 68 year old woman presents for evaluation for TBSE. She has concerns about lesions on her right medial forehead, right upper lip by nasolabial fold, right synagogue by hairline, and right lateral cheek that have increased in size over the last several months and have developed irregular borders. She had a basal cell carcinoma excised from her left supramedial cheek in 2012. She presents today for further evaluation and treatment. REVIEW OF SYSTEMS General - Denies fever, fatigue, and weight loss. Is on Suboxone therapy. Eyes - Denies cataracts and glaucoma. ENT - Denies nasal congestion and sore throat. Endocrine - Denies excessive thirst and urination. Skin - Has personal history of skin cancer. Has enlarging lesions right medial forehead, right upper lip by nasolabial fold, right synagogue by hairline, and right lateral cheek. Musculoskeletal - Denies joint pain, joint stiffness, weakness of muscles and joints, back pain, and arthritis. Neuro - Denies headaches. Cardiovascular - Denies chest pain, fatigue, and shortness of breath with exertion. Psych - Has depression. Has bipolar disorder. Has panic attacks. Has dissociative identity disorder with multiple personalities. Respiratory - Denies chronic cough and shortness of breath. Patient is a former smoker. Gastrointestinal - Denies nausea, vomiting, diarrhea, and constipation. Hematologic - Denies abnormal bruising and bleeding. Genitourinary - Denies hematuria and urinary frequency. Has UTI. History of kidney failure. PHYSICAL EXAMINATION General - Alert and Oriented HEENT - PERRL. EOMI. Throat is clear. On the right medial forehead is an 11 mm lesion with some scabbing. Has irregular borders. Has some nodularity. No ulceration. Lesion is nontender. On the right upper lip by nasolabial fold is a 6 mm lesion that is nodular. Has irregular borders. No ulceration. Lesion is nontender. On the right synagogue by hairline is a pigmented lesion that measures 4 mm. Has irregular borders. No ulceration. Lesion is nontender. On the right lateral cheek is a 5 mm lesion that is raised in configuration. Has irregular borders. No ulceration. Lesion is nontender. Neck - Supple and nontender. No cervical adenopathy. No suspicious lesions noted. Lungs - Clear to auscultation. Heart - Regular rate and rhythm. Abdomen - Soft and nondistended. Extremities - FROM. No axillary adenopathy. Radial pulses are palpable. No suspicious lesions noted. Neuro - CN II-XII grossly intact. Psych - Normal mood and affect. ASSESSMENT 1. 11 mm lesion right medial forehead. 2. 6 mm lesion right upper lip by nasolabial fold. 3. 4 mm pigmented lesion right synagogue by hairline. 4. 5 mm lesion right lateral cheek. 5. Personal history of skin cancer. 6. Former smoker. PLAN Recommend excision of these lesions (right medial forehead, right upper lip by nasolabial fold, right synagogue by hairline, and right lateral cheek) and send them to Pathology for analysis to rule out carcinoma. If carcinoma is present, then further excision will be done with skin graft or skin flap reconstruction. The pigmented lesion right synagogue by hairline will be sent to Pathology for permanent analysis. Surgery will be done under general anesthesia on an outpatient basis. Patient was informed of the risks and complications of the procedure including alternatives to surgery. These were discussed with the patient personally. Patient voices understanding and wishes to proceed. Some of the risks and complications were included in a form from the [employer].
[2018-08-31 13:17] VITALS: BP 156/89; PULSE 84; RESP 16; TEMP 36.8; O2SAT 97; BMI 31.2
[2018-08-31] MEDS: Mupirocin Ointment 22gm Tube 1 APPLIC (14:02)
--- NOTE | 2018-08-31 14:14 | LES_PTH ---
PATIENT: ALEXIA POWELL LOC: [facility] – [place] U#:[id number] AGE/SX: 68/F ROOM: RE08/31/[address]: Dr. Isaías Davis MD : [id number] BED: DIS: 08/31/2018 SPEC #: [id number] RECD: 08/31/18 14:56 STATUS: [facility]ONT PANDA #: [id number] MAXIMINO: 08/31/18 14:[address]: Isaías Davis DEPT: SURGICAL PATHOLOGY RECD BY: Yazmin Newton ENTERED: 08/31/18 14:57 SP TYPE: Lesion OTHR DR: Dr. Esperanza Baird MD Tissues: A - Skin of face, NOS B - Skin of forehead C - Skin of lip, NOS D - Skin of head, NOS E - Skin of forehead F - Skin of lip, NOS G - Skin of face, NOS Procedures: Frozen Section (charge) Surgery Specimen Level IV HEADER OPERATION: Excision basal cell carcinoma, right medial forehead with frozen sections PRE-OP DIAGNOSIS: Lesion right medial forehead, lesion right upper lip by nasolabial fold, pigmented lesion right yazdanism by hairline, lesion right lateral cheek, personal history of skin cancer TISSUE SUBMITTED: A. Lesion, right lateral cheek, B. Lesion, right medial forehead, C. Lesion, right upper lip by nasolabial fold, D. Pigmented lesion, right yazdanism by hairline, suture at 12 o'clock, E. Basal cell carcinoma, right medial forehead, suture at 12 o'clock, F. Basal cell carcinoma, right upper lip by nasolabial fold, suture at 12 o'clock, G. Lesion right supra medial cheek, suture at 12 o'clock FROZEN SECTION DIAGNOSIS A. 5 mm lesion right lateral cheek, biopsy: Intradermal nevus B. 11 mm lesion right medial forehead, shave biopsy: Basal cell carcinoma C. 6mm lesion right upper lip by nasolabial fold, shave biopsy: Basal cell carcinoma GURVINDER:livia 08/31/18 MICROSCOPIC DIAGNOSIS A. 5 mm lesion right lateral cheek, biopsy: Intradermal nevus. B. 11 mm lesion right medial forehead, shave biopsy: Basal cell carcinoma. C. 6 mm lesion right upper lip by nasolabial fold, shave biopsy: Basal cell carcinoma. Intradermal nevus. D. 4 mm pigmented lesion, right yazdanism by hairline, biopsy: Benign vascular proliferation, consistent with capillary hemangioma. E. Basal cell carcinoma, right medial forehead, excisional biopsy: Basal cell carcinoma, completely excised in the planes of section examined. Solar elastosis. Focal ulceration, consistent site of specimen B. F. Basal cell carcinoma right upper lip, by nasolabial fold, excision biopsy: Basal cell carcinoma, completely excised in the planes of section examined. Solar elastosis. Focal ulceration, consistent site of specimen C. G. Lesion right supra medial cheek, excisional biopsy: Basal cell carcinoma, completely excised in the planes of section examined. GURVINDER:breezy 09/02/18 MICROSCOPIC DESCRIPTION Slides are reviewed. GROSS DESCRIPTION A. Received fresh for frozen section diagnosis labeled with the patient's name is a specimen designated 5 mm lesion right lateral cheek. The specimen consists of a piece of muñoz-white skin measuring 0.7 x 0.5 x 0.2 cm. The specimen is inked, bisected and submitted entirely for frozen section diagnosis in one cassette. B. Received fresh for frozen section diagnosis labeled with the patient's name is a specimen designated 11 mm lesion right medial forehead. The specimen consists of a piece of muñoz-white skin measuring 0.6 x 0.5 x 0.1 cm. The specimen is inked, bisected and submitted entirely for frozen section diagnosis in one cassette. C. Received fresh for frozen section diagnosis labeled with the patient's name is a specimen designated 6 mm lesion right upper lip by nasolabial fold. The specimen consists of a piece of muñoz-white skin measuring 0.6 x 0.6 x 0.1 cm. The specimen is inked, bisected and submitted entirely for frozen section diagnosis in one cassette. D. Received in fixative is one container labeled with the patient's name and designated 4 mm pigmented lesion right yazdanism by hairline, suture at 12 o'clock. The specimen consists of a muñoz-white skin ellipse measuring 1.5 x 0.4 cm x up to 0.3 cm in thickness. The specimen is inked as follows: 12 o'clock margin - black, 6 o'clock margin - blue. The entire specimen is submitted in 1 cassette. It will be serially sectioned at the time of embedding. E. Received in fixative is one container labeled with the patient's name and designated basal cell carcinoma right medial forehead, suture at 12 o'clock. The specimen consists of a round piece of skin measuring 1.5 x 1.5 x 0.3 cm. The specimen is inked as follows: 12 to 3 - black, 3 to 6 - blue, 6 to 9 - green and 9 to 12 - yellow. Focal area of ulceration is noted. The specimen is serially sectioned and submitted entirely in 2 cassettes as follows: 1 - twelve and six o'clock margin, 2 - rest of the specimen. F. Received in fixative is one container labeled with the patient's name and designated basal cell carcinoma right upper lip by nasolabial fold, suture at 12 o'clock. The specimen consists of a pear-shaped piece of muñoz-white skin measuring 3 x 1.5 cm and up to 0.8 cm in thickness. The specimen is inked as follows: 6 o'clock tip - green, 12 o'clock margin - yellow, 3 o'clock margin - black, 9 o'clock margin - blue. The specimen is serially sectioned and submitted entirely in 3 cassettes as follows: 1 - six o'clock tip and 12 o'clock margin, 2 & 3 - rest of the specimen. G. Received in fixative is one container labeled with the patient's name and designated lesion right supra medial cheek, suture at 12 o'clock. The specimen consists of crescent piece of muñoz-white skin measuring 2 x 1.4 cm and up to 0.5 cm in thickness. The specimen is inked as follows: 12 o'clock - black, 6 o'clock - blue, 3 o'clock - green, 9 o'clock - yellow. The entire specimen is submitted in 2 cassettes as follows: 1 - twelve and six o'clock margin, 2 - rest of the specimen. GURVINDER:breezy 09/01/18 TC: 0 CPT: 52354i5, [id number]
[2018-08-31] MEDS: Silver Nitrate (BKC) 1 EACH (16:02)
--- NOTE | 2018-08-31 16:04 | PCM.IMDPSTOP ---
Immediate Post-Op Note Date of Procedure: 08/31/18 Primary Surgeon/Physician: Isaías Davis prefinish operator: Conchita Weber. Pre-Operative Diagnosis: 1. 11 mm lesion right medial forehead. 2. 6 mm lesion right upper lip by nasolabial fold. 3. 5 mm lesion right supramedial cheek. 4. 4 mm pigmented lesion right baptism by hairline. 5. 5 mm lesion right lateral cheek. 6. Personal history of skin cancer. 7. Former smoker. Post-Operative Diagnosis: 1. 11 mm basal cell carcinoma right medial forehead. 2. 6 mm basal cell carcinoma right upper lip by nasolabial fold. 3. 5 mm lesion right supramedial cheek. 4. 4 mm pigmented lesion right baptism by hairline. 5. 5 mm intradermal nevus right lateral cheek. 6. Personal history of skin cancer. 7. Former smoker. Surgery/Procedure Performed:: 1. Excision 11 mm basal cell carcinoma right medial forehead with lateral rectangular horizontal advancement skin flap reconstruction (6 cm2). 2. Excision 6 mm basal cell carcinoma right upper lip by nasolabial fold and excision 5 mm lesion right supramedial cheek with perialar crescenteric advancement skin flap reconstruction (10.5 cm2). 3. Excision 4 mm pigmented lesion right baptism by hairline with 1.5 cm layered closure. 4. Intradermal excision 5 mm intradermal nevus right lateral cheek. Description of Surgical Findings:: 68 year old woman presents for evaluation for TBSE. She has concerns about lesions on her right medial forehead, right upper lip by nasolabial fold, right baptism by hairline, and right lateral cheek that have increased in size over the last several months and have developed irregular borders. She had a basal cell carcinoma excised from her left supramedial cheek in 2012. On the day of surgery, it was noted that there was another small erythematous lesion on the right supramedial cheek just superior to the right upper lip lesion by the nasolabial fold. I should be able to excise that lesion with the excision of the right upper lip lesion as the reconstruction of the perialar defect with a crescenteric flap should encompass that lesion. The patient had excision lesions right medial forehead, right upper lip by nasolabial fold, and right lateral cheek and send them to Pathology as frozen sections. Frozen section showed the right medial forehead lesion was a basal cell carcinoma and the right upper lip by nasolabial fold lesion was a basal cell carcinoma and the right lateral cheek lesion was an intradermal nevus. So further excision of the basal cell carcinomas right medial forehead and right upper lip by nasolabial fold will be done with skin flaps reconstruction. Today the patient underwent excision 11 mm basal cell carcinoma right medial forehead with lateral rectangular horizontal advancement skin flap reconstruction (6 cm2) and excision 6 mm basal cell carcinoma right upper lip by nasolabial fold and excision 5 mm lesion right supramedial cheek with perialar crescenteric advancement skin flap reconstruction (10.5 cm2) and excision 4 mm pigmented lesion right baptism by hairline with 1.5 cm layered closure and intradermal excision 5 mm intradermal nevus right lateral cheek. Frozen section right medial forehead - basal cell carcinoma. Frozen section right upper lip by nasolabial fold - basal cell carcinoma. Frozen section right lateral cheek - intradermal nevus. Estimated Blood Loss: 25 ml. Specimen's removed: 1. Lesion right medial forehead to Pathology as a frozen section. 2. Lesion right upper lip by nasolabial fold to Pathology as a frozen section. 3. Lesion right lateral cheek to Pathology as a frozen section. 4. Pigmented lesion right baptism by hairline to Pathology. 5. Basal cell carcinoma right medial forehead to Pathology. 6. Basal cell carcinoma right upper lip by nasolabial fold to Pathology. 7. Lesion right supramedial cheek to Pathology. Drains: None. Type of Anesthesia:: General - Admit VTE Documentation VTE Present on Admission: No VTE Mechan Device Prophylaxis: SCD's VTE Pharm Prophylaxis ordered?: No
--- NOTE | 2018-08-31 16:10 | OP.PN_ITS ---
Immediate Post-Op Note Date of Procedure: 08/31/18 Primary Surgeon/Physician: Isaías Davis residential manager: Conchita Weber. Pre-Operative Diagnosis: 1. 11 mm lesion right medial forehead. 2. 6 mm lesion right upper lip by nasolabial fold. 3. 5 mm lesion right supramedial cheek. 4. 4 mm pigmented lesion right scientology by hairline. 5. 5 mm lesion right lateral cheek. 6. Personal history of skin cancer. 7. Former smoker. Post-Operative Diagnosis: 1. 11 mm basal cell carcinoma right medial forehead. 2. 6 mm basal cell carcinoma right upper lip by nasolabial fold. 3. 5 mm lesion right supramedial cheek. 4. 4 mm pigmented lesion right scientology by hairline. 5. 5 mm intradermal nevus right lateral cheek. 6. Personal history of skin cancer. 7. Former smoker. Surgery/Procedure Performed:: 1. Excision 11 mm basal cell carcinoma right medial forehead with lateral rectangular horizontal advancement skin flap reconstruction (6 cm2). 2. Excision 6 mm basal cell carcinoma right upper lip by nasolabial fold and excision 5 mm lesion right supramedial cheek with perialar crescenteric advancement skin flap reconstruction (10.5 cm2). 3. Excision 4 mm pigmented lesion right scientology by hairline with 1.5 cm layered closure. 4. Intradermal excision 5 mm intradermal nevus right lateral cheek. Description of Surgical Findings:: 68 year old woman presents for evaluation for TBSE. She has concerns about lesions on her right medial forehead, right upper lip by nasolabial fold, right scientology by hairline, and right lateral cheek that have increased in size over the last several months and have developed irregular borders. She had a basal cell carcinoma excised from her left supramedial cheek in 2012. On the day of surgery, it was noted that there was another small erythematous lesion on the right supramedial cheek just superior to the right upper lip lesion by the nasolabial fold. I should be able to excise that lesion with the excision of the right upper lip lesion as the reconstruction of the perialar defect with a crescenteric flap should encompass that lesion. The patient had excision lesions right medial forehead, right upper lip by nasolabial fold, and right lateral cheek and send them to Pathology as frozen sections. Frozen section showed the right medial forehead lesion was a basal cell carcinoma and the right upper lip by nasolabial fold lesion was a basal cell carcinoma and the right lateral cheek lesion was an intradermal nevus. So further excision of the basal cell carcinomas right medial forehead and right upper lip by nasolabial fold will be done with skin flaps reconstruction. Today the patient underwent excision 11 mm basal cell carcinoma right medial forehead with lateral rectangular horizontal advancement skin flap re construction (6 cm2) and excision 6 mm basal cell carcinoma right upper lip by nasolabial fold and excision 5 mm lesion right supramedial cheek with perialar crescenteric advancement skin flap reconstruction (10.5 cm2) and excision 4 mm pigmented lesion right scientology by hairline with 1.5 cm layered closure and intradermal excision 5 mm intradermal nevus right lateral cheek. Frozen section right medial forehead - basal cell carcinoma. Frozen section right upper lip by nasolabial fold - basal cell carcinoma. Frozen section right lateral cheek - intradermal nevus. Estimated Blood Loss: 25 ml. Specimen's removed: 1. Lesion right medial forehead to Pathology as a frozen section. 2. Lesion right upper lip by nasolabial fold to Pathology as a frozen section. 3. Lesion right lateral cheek to Pathology as a frozen section. 4. Pigmented lesion right scientology by hairline to Pathology. 5. Basal cell carcinoma right medial forehead to Pathology. 6. Basal cell carcinoma right upper lip by nasolabial fold to Pathology. 7. Lesion right supramedial cheek to Pathology. Drains: None. Type of Anesthesia:: General - Admit VTE Documentation VTE Present on Admission: No VTE Mechan Device Prophylaxis: SCD's VTE Pharm Prophylaxis ordered?: No
[2018-08-31 16:17] VITALS: BP 134/69; BP 156/89; PULSE 74; RESP 18; TEMP 36.5; O2SAT 94
--- NOTE | 2018-08-31 16:18 | PCM.DC ---
You will use the following diet at home:: No restrictions Discharge Activity: May not drive while taking narcotic pain medications., May Shower - in two days., - - no heavy lifting. keep head elevated. May shower in (days): 2 May resume sexual activity in: 10-14 days Ice area for (Minutes): 5 - as needed for facial swelling. Weight Bearing Status: Weight bearing as tolerated Lifting Restrictions: 10 lbs. Keep extremity elevated above heart level: - - elevate head. Call your doctor if your incision/area has: Continuous Slow Oozing, Sudden Increased Bleeding, Increased Redness, Foul Smelling Discharge, Swelling at the incision site Call your doctor if you observe: Fever of 101 or Higher, Coldness, Increased Pain, Shortness of breath, Chest pain, Calf discomfort, Uncontrolled pain Suture Line Care: - - apply antibiotic ointment to suture line daily. Cleanse incision/area with: - - may get incisions wet in the shower in two days. Additional Instructions: Patient needs to check with her Pain Management Physician before filling the PERCOCET prescription. Patient MUST NOT TAKE Suboxone while taking Percocet. Allergies/Adverse Reactions: Allergies iloperidone [From Fanapt] Allergy (Verified 08/24/18 11:17) Other CAUSES PT TO NOT WALK OR SPEAK lurasidone [From Latuda] Allergy (Verified 08/02/18 22:59) Other naproxen Allergy (Verified 08/02/18 22:59) Hives paliperidone [From Invega] Allergy (Verified 08/02/18 22:59) increased psychiatric symptoms trazodone Allergy (Verified 08/02/18 22:59) Other theophylline Adverse Reaction (Verified 08/02/18 22:59) Other SLOBID Adverse Reaction (Uncoded 08/02/18 22:59) Other Medications to take at Discharge Lisinopril [Zestril] 20 mg PO DAILY 03/24/17 Divalproex (ER) [Depakote ER] 500 mg PO BID 06/20/17 Pravastatin [Pravachol] 40 mg PO QHS 12/18/17 Buprenorphine HCl/Naloxone HCl [Suboxone 8 mg-2 mg Sl Film] 1 ea SL BID 12/24/17 Albuterol Inhaler [Ventolin Hfa] 1 puff INHALATION Q4H PRN PRN 05/20/18 calcium carbonate 600 mg calcium (1,500 mg) tablet 600 mg PO BID #60 tab 06/08/18 famotidine 10 mg tablet 10 mg PO DAILY #90 tab 06/16/18 ferrous sulfate 325 mg (65 mg iron) tablet 325 mg PO DAILY #90 tab 07/14/18 miconazole nitrate 2 % topical powder 1 applic TOPICAL BID #71 g 07/14/18 metoprolol tartrate 25 mg tablet 25 mg PO DAILY #30 tab 07/30/18 sennosides 8.6 mg-docusate sodium 50 mg tablet 1 tab PO BID PRN #60 tab 07/30/18 bisacodyl 5 mg tablet,delayed release 20 mg PO ONCE #4 tab 08/09/18 polyethylene glycol 3350 17 gram/dose oral powder See Rx Instructions PO .COMPLEX #238 g 08/09/18 walker See Dose Instructions .ROUTE .MEDSUPPLY #1 ea 08/19/18 Clindamycin HCl [Cleocin] 300 mg PO TID #15 cap 08/31/18 Lactobacillus Acidophilus/Fos [Acidophilus Probiotic Tablet] 1 ea PO BID #10 tab 08/31/18 Oxycodone HCl/Acetaminophen [Percocet 5/325] 1 tab PO 4X/DAY PRN PRN 7 Days #30 tab 08/31/18 The following prescriptions were given: Oxycodone HCl/Acetaminophen [Percocet 5/325] 1 tab PO 4X/DAY PRN PRN 7 Days #30 tab PRN Reason: Pain Lactobacillus Acidophilus/Fos [Acidophilus Probiotic Tablet] 1 ea PO BID #10 tab Clindamycin HCl [Cleocin] 300 mg PO TID #15 cap Primary Care Physician: Esperanza Baird MD [Primary Care Provider] - Test Results: Test results from this visit will be discussed in further detail at your follow-up appointment, if applicable. Please Follow Up With: Isaías Davis MD When: one week. call [phone] for appt. Proposed Discharge Date: 08/31/18
[2018-08-31 16:30] VITALS: BP 124/69; BP 156/89; PULSE 72; RESP 18; O2SAT 95
[2018-08-31 16:42] VITALS: BP 134/80; BP 156/89; PULSE 72; RESP 18; TEMP 36.6; O2SAT 93
[2018-08-31 17:00] VITALS: BP 156/89
--- NOTE | 2018-08-31 22:04 | PCM.OPRPT ---
Report of Operation Date of Procedure: 08/31/18 Pre-Operative Diagnosis: 1. 11 mm lesion right medial forehead. 2. 6 mm lesion right upper lip by nasolabial fold. 3. 5 mm lesion right supramedial cheek. 4. 4 mm pigmented lesion right roman catholic by hairline. 5. 5 mm lesion right lateral cheek. 6. Personal history of skin cancer. 7. Former smoker. Post-Operative Diagnosis: 1. 11 mm basal cell carcinoma right medial forehead. 2. 6 mm basal cell carcinoma right upper lip by nasolabial fold. 3. 5 mm lesion right supramedial cheek. 4. 4 mm pigmented lesion right roman catholic by hairline. 5. 5 mm intradermal nevus right lateral cheek. 6. Personal history of skin cancer. 7. Former smoker. Surgery/Procedure Performed:: 1. Excision 11 mm basal cell carcinoma right medial forehead with lateral rectangular horizontal advancement skin flap reconstruction (6 cm2). 2. Excision 6 mm basal cell carcinoma right upper lip by nasolabial fold and excision 5 mm lesion right supramedial cheek with perialar crescenteric advancement skin flap reconstruction (10.5 cm2). 3. Excision 4 mm pigmented lesion right roman catholic by hairline with 1.5 cm layered closure. 4. Intradermal excision 5 mm intradermal nevus right lateral cheek. Description of Surgical Findings:: 68 year old woman presents for evaluation for TBSE. She has concerns about lesions on her right medial forehead, right upper lip by nasolabial fold, right roman catholic by hairline, and right lateral cheek that have increased in size over the last several months and have developed irregular borders. She had a basal cell carcinoma excised from her left supramedial cheek in 2012. On the day of surgery, it was noted that there was another small erythematous lesion on the right supramedial cheek just superior to the right upper lip lesion by the nasolabial fold. I should be able to excise that lesion with the excision of the right upper lip lesion as the reconstruction of the perialar defect with a crescenteric flap should encompass that lesion. The patient had excision lesions right medial forehead, right upper lip by nasolabial fold, and right lateral cheek and send them to Pathology as frozen sections. Frozen section showed the right medial forehead lesion was a basal cell carcinoma and the right upper lip by nasolabial fold lesion was a basal cell carcinoma and the right lateral cheek lesion was an intradermal nevus. So further excision of the basal cell carcinomas right medial forehead and right upper lip by nasolabial fold will be done with skin flaps reconstruction. Today the patient underwent excision 11 mm basal cell carcinoma right medial forehead with lateral rectangular horizontal advancement skin flap reconstruction (6 cm2) and excision 6 mm basal cell carcinoma right upper lip by nasolabial fold and excision 5 mm lesion right supramedial cheek with perialar crescenteric advancement skin flap reconstruction (10.5 cm2) and excision 4 mm pigmented lesion right roman catholic by hairline with 1.5 cm layered closure and intradermal excision 5 mm intradermal nevus right lateral cheek. Frozen section right medial forehead - basal cell carcinoma. Frozen section right upper lip by nasolabial fold - basal cell carcinoma. Frozen section right lateral cheek - intradermal nevus. salesperson furs: Conchita Weber. Type of Anesthesia:: General Specimen's removed: 1. Lesion right medial forehead to Pathology as a frozen section. 2. Lesion right upper lip by nasolabial fold to Pathology as a frozen section. 3. Lesion right lateral cheek to Pathology as a frozen section. 4. Pigmented lesion right roman catholic by hairline to Pathology. 5. Basal cell carcinoma right medial forehead to Pathology. 6. Basal cell carcinoma right upper lip by nasolabial fold to Pathology. 7. Lesion right supramedial cheek to Pathology. Drains: None. Estimated Blood Loss (mL): 25 ml. Description of Procedure: Patient was taken to OR in supine position and was placed under local anesthesia with IV sedation initially. During the case, she was getting agitated, and it was changed to general anesthesia. The face and neck werre prepped and draped in the usual fashion. SCD's were placed for DVT prophylaxis. Perioperative antibiotics were given intravenously. Using xylocaine with epinephrine, the lesions right medial forehead, right upper lip by nasolabial fold, right lateral cheek, right roman catholic by hairline, and right supramedial cheek were infiltrated. After waiting 5 minutes for the anesthetic to take effect, The pigmented lesion right roman catholic by hairline was excised in an oblique elliptical fashion down into the subcutaneous tissue. A suture was marked at the 12 oclock position for pathology orientation. The lesion was then sent to Pathology for analysis to rule out carcinoma. It was excised with a 1 mm margin in all directions thus making it a 6 mm excision and a 1.5 cm layered closure. Hemostasis was obtained with electrocautery. The wound was closed in a layered fashion with 5-0 Monocryl interrupted sutures for the deep dermis and subcutaneous tissue. The skin was approximated with 6-0 Prolene simple interrupted sutures. The lesions right medial forehead, right upper lip by nasolabial fold, and right lateral cheek were excised in an intradermal fashion and sent to Pathology as a frozen section. Frozen section showed the lesion right medial forehead was a basal cell carcinoma and the lesion right upper lip by nasolabial fold was a basal cell carcinoma and the lesion right lateral cheek was an intradermal nevus. The lesion right upper lip was re-excised with a 3 mm margin in all directions thus making it a 1.2 cm excision. I jael a perialar crescenteric flap extending superiorly onto the lateral nasal sidewall junction with the cheek to encompass the new onset lesion right supramedial cheek. These markings were infiltrated with xylocaine with epinephrine. Incisions were made down into the subcutaneous tissue at the level of the facial musculature. After I created the defect, I both lesions and place sutures at the 12 oclock position for pathology orientation. Both lesions were sent to Pathology for analysis to rule out carcinoma at the margins. I elevated a right lateral cheek flap to aid in wound closure.The perialar crescenteric flap was advanced into the defect with minimal tension and minimal distortion. Hemostasis was obtained with electrocautery. The flap was then closed in multiple layers with 5-0 Monocryl interrupted sutures for the deep dermis and subcutaneous tissue. The skin was approximated with 6-0 Prolene simple interrupted sutures. Steristrips were applied followed by antibiotic ointment. Good contour was noted on the nose and upper lip. The size of the defect and the size of the flap necessary to close the defect is 10.5 cm2. The lesion right medial forehead was excised in a circular fashion with a 4 mm margin in all directions thus making it a 1.9 cm excision. A horizontal lateral rectangular flap was designed and incisions were made and the flap was elevated on a subcutaneous pedicle at the level of the underlying muscle.The flap was easily advanced into the defect with minimal tension and minimal distortion and minimize asymmetry with the eyebrow. Hemostasis was obtained with electrocautery. The wound was closed in a layered fashion with 5-0 Monocryl interrupted sutures for the deep dermis and subcutaneous tissue. The skin was approximated with 6-0 Prolene simple interrupted sutures. Steristrips were applied followed by antibiotic ointment. Hemostasis for the right lateral cheek wound was done with silver nitrate chemical cauterization. Patient tolerated the procedure well and was sent to PACU in satisfactory condition. Patient will be sent home on antibiotics and pain medication. Patient will keep her head elevated in the initial postop period. Patient will followup in a week for a wound check and for discussion of the pathology report and for removal of the sutures. Grafts/Implants Used: None. - Complications None. - Admit VTE Documentation VTE Present on Admission: No VTE Mechan Device Prophylaxis: SCD's VTE Pharm Prophylaxis ordered?: No Code Visit Surgery Charges CPT - 13341 ICD-10 - C44.319, Z85.828, Z87.891 81670 C44.01, C44.319, Z85.828, Z87.891 43188 D49.2, Z85.828, Z87.891 86530 D49.2, Z85.828, Z87.891 15651 D23.39, Z85.828, Z87.891
--- NOTE | 2018-09-01 22:05 | OP.PCM_ITS ---
Report of Operation Date of Procedure: 08/31/18 Pre-Operative Diagnosis: 1. 11 mm lesion right medial forehead. 2. 6 mm lesion right upper lip by nasolabial fold. 3. 5 mm lesion right supramedial cheek. 4. 4 mm pigmented lesion right gnosticism by hairline. 5. 5 mm lesion right lateral cheek. 6. Personal history of skin cancer. 7. Former smoker. Post-Operative Diagnosis: 1. 11 mm basal cell carcinoma right medial forehead. 2. 6 mm basal cell carcinoma right upper lip by nasolabial fold. 3. 5 mm lesion right supramedial cheek. 4. 4 mm pigmented lesion right gnosticism by hairline. 5. 5 mm intradermal nevus right lateral cheek. 6. Personal history of skin cancer. 7. Former smoker. Surgery/Procedure Performed:: 1. Excision 11 mm basal cell carcinoma right medial forehead with lateral rectangular horizontal advancement skin flap reconstruction (6 cm2). 2. Excision 6 mm basal cell carcinoma right upper lip by nasolabial fold and excision 5 mm lesion right supramedial cheek with perialar crescenteric advancement skin flap reconstruction (10.5 cm2). 3. Excision 4 mm pigmented lesion right gnosticism by hairline with 1.5 cm layered closure. 4. Intradermal excision 5 mm intradermal nevus right lateral cheek. Description of Surgical Findings:: 68 year old woman presents for evaluation for TBSE. She has concerns about lesions on her right medial forehead, right upper lip by nasolabial fold, right gnosticism by hairline, and right lateral cheek that have increased in size over the last several months and have developed irregular borders. She had a basal cell carcinoma excised from her left supramedial cheek in 2012. On the day of surgery, it was noted that there was another small erythematous lesion on the right supramedial cheek just superior to the right upper lip lesion by the nasolabial fold. I should be able to excise that lesion with the excision of the right upper lip lesion as the reconstruction of the perialar defect with a crescenteric flap should encompass that lesion. The patient had excision lesions right medial forehead, right upper lip by nasolabial fold, and right lateral cheek and send them to Pathology as frozen sections. Frozen section showed the right medial forehead lesion was a basal cell carcinoma and the right upper lip by nasolabial fold lesion was a basal cell carcinoma and the right lateral cheek lesion was an intradermal nevus. So further excision of the basal cell carcinomas right medial forehead and right upper lip by nasolabial fold will be done with skin flaps reconstruction. Today the patient underwent excision 11 mm basal cell carcinoma right medial for ehead with lateral rectangular horizontal advancement skin flap reconstruction (6 cm2) and excision 6 mm basal cell carcinoma right upper lip by nasolabial fold and excision 5 mm lesion right supramedial cheek with perialar crescenteric advancement skin flap reconstruction (10.5 cm2) and excision 4 mm pigmented lesion right gnosticism by hairline with 1.5 cm layered closure and intradermal excision 5 mm intradermal nevus right lateral cheek. Frozen section right medial forehead - basal cell carcinoma. Frozen section right upper lip by nasolabial fold - basal cell carcinoma. Frozen section right lateral cheek - intradermal nevus. 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 Type of Anesthesia:: General Specimen's removed: 1. Lesion right medial forehead to Pathology as a frozen section. 2. Lesion right upper lip by nasolabial fold to Pathology as a frozen section. 3. Lesion right lateral cheek to Pathology as a frozen section. 4. Pigmented lesion right gnosticism by hairline to Pathology. 5. Basal cell carcinoma right medial forehead to Pathology. 6. Basal cell carcinoma right upper lip by nasolabial fold to Pathology. 7. Lesion right supramedial cheek to Pathology. Drains: None. Estimated Blood Loss (mL): 25 ml. Description of Procedure: Patient was taken to OR in supine position and was placed under local anesthesia with IV sedation initially. During the case, she was getting agitated, and it was changed to general anesthesia. The face and neck werre prepped and draped in the usual fashion. SCD's were placed for DVT prophylaxis. Perioperative antibiotics were given intravenously. Using xylocaine with epinephrine, the lesions right medial forehead, right upper lip by nasolabial fold, right lateral cheek, right gnosticism by hairline, and right supramedial cheek were infiltrated. After waiting 5 minutes for the anesthetic to take effect, The pigmented lesion right gnosticism by hairline was excised in an oblique elliptical fashion down into the subcutaneous tissue. A suture was marked at the 12 oclock position for pathology orientation. The lesion was then sent to Pathology for analysis to rule out carcinoma. It was excised with a 1 mm margin in all directions thus making it a 6 mm excision and a 1.5 cm layered closure. Hemostasis was obtained with electrocautery. The wound was closed in a layered fashion with 5-0 Monocryl interrupted sutures for the deep dermis and subcutaneous tissue. The skin was approximated with 6-0 Prolene simple interrupted sutures. The lesions right medial forehead, right upper lip by nasolabial fold, and right lateral cheek were excised in an intradermal fashion and sent to Pathology as a frozen section. Frozen section showed the lesion right medial forehead was a basal cell carcinoma and the lesion right upper lip by nasolabial fold was a basal cell carcinoma and the lesion right lateral cheek was an intradermal nevus. The lesion right upper lip was re-excised with a 3 mm margin in all directions thus making it a 1.2 cm excision. I jael a perialar crescenteric flap extending superiorly onto the lateral nasal sidewall junction with the cheek to encompass the new onset lesion right supramedial cheek. These markings were infiltrated with xylocaine with epinephrine. Incisions were made down into the subcutaneous tissue at the level of the facial musculature. After I created the defect, I both lesions and place sutures at the 12 oclock position for pathology orientation. Both lesions were sent to Pathology for analysis to rule out carcinoma at the margins. I elevated a right lateral cheek flap to aid in wound closure.The perialar crescenteric flap was advanced into the defect with minimal tension and minimal distortion. Hemostasis was obtained with electrocautery. The flap was then closed in multiple layers with 5-0 Monocryl interrupted sutures for the deep dermis and subcutaneous tissue. The skin was approximated with 6-0 Prolene simple interrupted sutures. Steristrips were applied followed by antibiotic ointment. Good contour was noted on the nose and upper lip. The size of the defect and the size of the flap necessary to close the defect is 10.5 cm2. The lesion right medial forehead was excised in a circular fashion with a 4 mm margin in all directions thus making it a 1.9 cm excision. A horizontal lateral rectangular flap was designed and incisions were made and the flap was elevated on a subcutaneous pedicle at the level of the underlying muscle.The flap was easily advanced into the defect with minimal tension and minimal distortion and minimize asymmetry with the eyebrow. Hemostasis was obtained with electrocautery. The wound was closed in a layered fashion with 5-0 Monocryl interrupted sutures for the deep dermis and subcutaneous tissue. The skin was approximated with 6-0 Prolene simple interrup niles sutures. Steristrips were applied followed by antibiotic ointment. Hemostasis for the right lateral cheek wound was done with silver nitrate chemical cauterization. Patient tolerated the procedure well and was sent to PACU in satisfactory condition. Patient will be sent home on antibiotics and pain medication. Patient will keep her head elevated in the initial postop period. Patient will followup in a week for a wound check and for discussion of the pathology report and for removal of the sutures. Grafts/Implants Used: None. - Complications None. - Admit VTE Documentation VTE Present on Admission: No VTE Mechan Device Prophylaxis: SCD's VTE Pharm Prophylaxis ordered?: No Code Visit Surgery Charges CPT - 21952 ICD-10 - C44.319, Z85.828, Z87.891 77360 C44.01, C44.319, Z85.828, Z87.891 47732 D49.2, Z85.828, Z87.891 97427 D49.2, Z85.828, Z87.891 80173 D23.39, Z85.828, Z87.891
== END 2018-08-31 17:25 | disposition home or self-care (01) ==
LOC: SDC 13:01 → AC 13:01
PROVIDERS: Family Provider Internal Medicine; PCP Internal Medicine; Referring Provider Surgery; Visit Provider Surgery
PROC: (CPT 11441; principal; 2018-08-31 13:40)
DX: C44.319 Basal cell carcinoma of skin of other parts of face (principal); C44.01 Basal cell carcinoma of skin of lip; D22.39 Melanocytic nevi of other parts of face; L57.8 Other skin changes due to chronic exposure to nonionizing radiation; D22.0 Melanocytic nevi of lip; F44.81 Dissociative identity disorder; F41.0 Panic disorder [episodic paroxysmal anxiety]; K21.9 Gastro-esophageal reflux disease without esophagitis; F41.9 Anxiety disorder, unspecified; F31.9 Bipolar disorder, unspecified; M06.9 Rheumatoid arthritis, unspecified; I10 Essential (primary) hypertension; J44.9 Chronic obstructive pulmonary disease, unspecified; J45.909 Unspecified asthma, uncomplicated; R56.9 Unspecified convulsions; Z85.828 Personal history of other malignant neoplasm of skin; Z87.440 Personal history of urinary (tract) infections; Z87.891 Personal history of nicotine dependence; Z79.899 Other long term (current) drug therapy; Z79.51 Long term (current) use of inhaled steroids
CPT/HCPCS: 11441; 12051; 14041; 88305; 88331; J7120; J2405; J3490

== ENCOUNTER 2018-09-02 14:23 | Emergency (ER) | payer MEDICARE, SELFPAY ==
[2018-09-02 14:23] VITALS: BP 217/99
[2018-09-02 14:25] VITALS: PULSE 64; RESP 16; TEMP 36.7; O2SAT 96; BMI 32.2
--- NOTE | 2018-09-02 14:37 | CT_ITS ---
STUDY: CT BRAIN WITHOUT CONTRAST REASON FOR EXAM: Female, 68 years old. Headaches. RADIATION DOSAGE (If Supplied By Facility): CTDIvol = ( 60.81 ) mGy, DLP = ( 1044.28 ) mGycm TECHNIQUE: Transaxial CT imaging of the brain was performed without administration of intravenous contrast material. Individualized dose optimization techniques were used for this CT. COMPARISON: Comparison is made with prior study dated April 08, 2017 and December 07, 2016. FINDINGS: Normal soft tissue structures. Normal calvarium. There is mild cerebral atrophy with widening of the extra-axial spaces and ventricular dilatation. There are areas of decreased attenuation within the white matter tracts of the supratentorial brain, consistent with microvascular disease changes. Stable small bilateral lacunar infarcts in the right basal ganglion. Normal brainstem. Normal cerebellum. There is no intracranial hemorrhage. There are no findings of an acute ischemic infarction. Atherosclerotic calcification of the vertebral arteries bilaterally slightly worse on the left side as well as the cavernous portions of the internal carotid arteries bilaterally. Normal visualized paranasal sinuses. CT/Brain/Head without Contrast IMPRESSION: Chronic involutional changes of the brain. Electronically Signed: Wil Ortega MD at 15:33 EST Tel [phone], Service support ,
[2018-09-02] MEDS: Ondansetron 4 MG/2 ML Vial IV (14:52)
[2018-09-02] MEDS: morphine 8 MG/ML Syringe IV (14:52)
[2018-09-02 15:07] LABS: Absolute Lymphocyte Count 1.74 X10^3/ul (0.83-4.51); Absolute Neutrophil Count 4.5 X10^3/uL (2.0-7.7); Basophil# 0.01 X10^3/uL; Basophil% 0.1 % (0-1); Eosinophil# 0.14 X10^3/uL; Hematocrit 40.9 % (37-47); Hemoglobin 13.2 g/dl (12.0-15.0); Lymphocyte # 1.74 X10^3/ul (4.0); Mean Corp Hgb Conc 32.3 g/gl (32-36); Mean Corpuscular Hgb 30.3 pg (27.0-32.0); Mean Corpuscular Volume 93.8 fL (81-99); Mean Platelet Vol. 9.6 fl (6.2-12.0); Monocyte% 8.6 % (0-10); Neutrophil # 4.46 X10^3/uL (2.7-7.7); Neutrophil % 64.2 % (47-70); POSITIVE COUNT NO; POSITIVE DIFFERENTIAL NO; POSITIVE MORPHOLOGY NO; Platelet Count 415 K/mm3 (150-450); RBC Distribution Width CV 14.5 % (11.6-14.6); RBC Distribution Width SD 49.5 fl (35.1-43.9); Red Blood Count 4.36 M/mm3 (4.2-5.4)
[2018-09-02 15:11] VITALS: BP 196/95; PULSE 72; RESP 16; O2SAT 96
[2018-09-02 15:14] LABS: Anion Gap 7 (5-15); BUN 12 mg/dL (7-18); BUN/Creat Ratio 17.1 RATIO (10-20); Chloride 108 mmol/L (98-107); EST Glomerular Filtration Rate 89 mL/min (>60); Est Glom Filt Rate - Afr Amer 107 mL/min (>60); Estimated Creatinine Clearance 41.76 ml/min; Glucose 77 mg/dL (74-106); Sodium Level 142 mmol/L (136-145)
--- NOTE | 2018-09-02 15:42 | ED.DEP ---
ED Disposition - Plan for ED Patient: Chief Complaint: Wound Check Instructions: ED Wound Check Post Op Bleeding, ED Wound Infec After Surgery Referrals: Esperanza Baird MD [Primary Care Provider] - Additional Instructions: Please continue all of your medications, and follow-up with all of your outpatient providers as instructed and return for change in symptoms
--- NOTE | 2018-09-02 15:47 | ED.RN ---
PT WANTS TO LEAVE NOW AND NOT WAIT FOR VANCOMYCIN TO INFUSE, DR. RUIZ INFORMED OF SAME AND REPORTED IF SHE REFUSES THE VANCOMYCIN, DISCONTINUE IT AND SHE CAN GO HOME. PT INFORMED OF SAME. DISCHARGE PAPERS ARE NOT AVAILABLE AT THIS TIME. WHEN DISCHARGE PAPERS ARE PRINTED THIS NURSE WILL GIVE TO PT.
--- NOTE | 2018-09-02 15:51 | ED.DCSUM_ITS ---
- ER Visit Summary Date of Service: 09/02/18 Chief Complaint: [] Right facial surgery Thursday swelling around the eye drainage from the incision History of Present Illness: The patient is a 68 F [] patient indicates she had right facial surgery by Dr. leela Saldana this past Thursday related to resection of cancer, she indicates she today had swelling around the eye and a diffuse fashion she had no eye pain no change in vision no pain with movement of the eye she also thought she had some drainage from the inferior portion of the incision that paralleled her nose she was unable to reach Dr. leela Saldana's office and she came to the emergency department. She is not prone to infection no history of MRSA she also complains of a headache no fever no cough she is taking her antibiotics Physical Examination: [] Exam her vital signs are unremarkable she is a febrile she does have postoperative changes involving multiple areas of her right face where there were biopsies there is an incision that paralleled the right nose, there is some edema and ecchymosis involving the right upper lower lid but her eye itself has no pain normal range of motion without pain normal vision anterior chambers intact pupil reacts well the forehead has some contusion as is the chin from pulling of what appears to be old blood the incision is intact without crepitance subcu air and I cannot appreciate any areas of drainage, her cranial nerve exam is otherwise unremarkable her mouth is normal HEENT exam is otherwise normal her neck is supple lungs are clear heart tones are normal upper and lower extremities and general medical neurologic exam are normal Test Results: [] Emergency Department Course and Treatment: [] Patient is concerned about all the above clinically this appears really to be postop healing there is no active signs of infection that is determined by physical exam I do not appreciate any drainage there is a number of areas of contusion whether it worries her biopsy sites or excisions of lesions, this time we did obtain CBC head CT and radiology notes head CT is unremarkable and the soft tissue of the face and around the eye are unremarkable per the radiology report I spoke with Dr. leela Saldana we discussed case in detail he agrees the patient can be discharged home to follow-up with his office in the next day or 2 she states that her antibiotics we did provide the patient with IV dose of Zosyn and vancomycin I discussed the plan with her she agrees with this plan will follow- up with him in the next 1-2 days return for change in symptoms Treatment Plan: [] Disposition: [] Home stable Impression: [] Right facial surgery patient concern for infection This note was generated with [employer] dictation software. It may contain incorrect words, spelling, and punctuation that were not noted in review of the chart prior to signing ED Disposition - Plan for ED Patient: Chief Complaint: Wound Check Instructions: ED Wound Infec After Surgery, ED Wound Check Post Op Bleeding Referrals: Esperanza Baird MD [Primary Care Provider] - Additional Instructions: Please continue all of your medications, and follow-up with all of your outpatient providers as instructed and return for change in symptoms
[2018-09-02 16:24] VITALS: BP 172/89; PULSE 71; RESP 16; O2SAT 96
== END 2018-09-02 16:25 | disposition home or self-care (01) ==
PROVIDERS: Emergency Provider Emergency Medicine; Family Provider Internal Medicine; PCP Internal Medicine
DX: R60.0 Localized edema (principal); Z98.890 Other specified postprocedural states
CPT/HCPCS: 70450; 80048; 85025; 96365; 96367; 96375; 99283; J7030; J7040; J7050; J2405

== ENCOUNTER 2018-09-06 13:58 | Outpatient (RCR) | payer MEDICARE, SELFPAY | END 2018-09-17 23:59 | LOC: NS 13:58 | PROVIDERS: Family Provider Internal Medicine; PCP Internal Medicine; Visit Provider Nurse Practitioner Family | DX: E66.9 Obesity, unspecified (principal); Z68.32 Body mass index [BMI] 32.0-32.9, adult; Z71.3 Dietary counseling and surveillance | CPT/HCPCS: 97803 ==

== ENCOUNTER 2018-09-12 11:30 | Emergency (ER) | payer MEDICARE, SELFPAY ==
[2018-09-08 15:02] VITALS: BMI 32.2
[2018-09-12 11:32] VITALS: BP 163/80; PULSE 79; PULSE 87; RESP 17; RESP 18; TEMP 36.6; O2SAT 94; BMI 31.6
[2018-09-12 11:40] VITALS: O2SAT 95
[2018-09-12 12:23] VITALS: PULSE 81; RESP 22
[2018-09-12] MEDS: Ipratropium/Albuterol Sulfate 3 ML AMPUL.NEB INHALATION (12:23)
[2018-09-12 12:28] LABS: Anion Gap 8 (5-15); BUN 14 mg/dL (7-18); BUN/Creat Ratio 21.5 RATIO (10-20); Calcium,Total 8.7 mg/dL (8.5-10.1); Chloride 108 mmol/L (98-107); Creatinine, Serum 0.65 mg/dL (0.55-1.02); EST Glomerular Filtration Rate 97 mL/min (>60); Est Glom Filt Rate - Afr Amer 117 mL/min (>60); Estimated Creatinine Clearance 41.76 ml/min; Glucose 96 mg/dL (74-106); Potassium 4.4 mmol/L (3.5-5.1); Sodium Level 140 mmol/L (136-145)
[2018-09-12 12:31] LABS: Absolute Lymphocyte Count 1.86 X10^3/ul (0.83-4.51); Absolute Neutrophil Count 9.4 X10^3/uL (2.0-7.7); Basophil# 0.02 X10^3/uL; Basophil% 0.2 % (0-1); Eosinophil# 0.13 X10^3/uL; Hemoglobin 13.4 g/dl (12.0-15.0); Lymphocyte # 1.86 X10^3/ul (4.0); Mean Corp Hgb Conc 32.7 g/gl (32-36); Mean Corpuscular Volume 91.9 fL (81-99); Mean Platelet Vol. 9.6 fl (6.2-12.0); Monocyte# 0.94 X10^3/uL; Monocyte% 7.6 % (0-10); Neutrophil # 9.41 X10^3/uL (2.7-7.7); Platelet Count 408 K/mm3 (150-450); RBC Distribution Width CV 14.6 % (11.6-14.6); RBC Distribution Width SD 49.5 fl (35.1-43.9); Red Blood Count 4.46 M/mm3 (4.2-5.4); White Blood Count 12.4 K/mm3 (4.4-11.0)
--- NOTE | 2018-09-12 12:31 | RAD_ITS ---
STUDY: X-RAY CHEST REASON FOR EXAM: Female, 68 years old. Cough TECHNIQUE: 2 views of the chest were obtained COMPARISON: June 08, 2018 chest radiograph FINDINGS: No pneumothorax or consolidation. No definite pleural effusion. Mild pulmonary vascular congestion. Flattening of the hemidiaphragm. Degenerative changes of the thoracic spine. Calcified hilar lymph nodes. IMPRESSION: Mild pulmonary vascular congestion. No evidence for focal airspace disease. COPD suspected Electronically Signed: Shilo Dee, at 12:48 EST Tel , Service support , RAD/Chest PA and Lateral
[2018-09-12 12:32] LABS: POSITIVE COUNT NO; POSITIVE DIFFERENTIAL NO; POSITIVE MORPHOLOGY NO
--- NOTE | 2018-09-12 12:42 | ED.VISSUMM ---
- ER Visit Summary Date of Service: 09/12/18 Chief Complaint: Shortness of breath and cough History of Present Illness: The patient is a 68 F who presents with shortness of breath and cough that has been getting worse over the past 2 days. Patient states it has gradually gotten worse. Patient states she has been around a family member who has had a sinus infection and someone else who has had bronchitis. Patient states she is coughing up some green sputum. Patient also admits to some rhinorrhea. Patient also admits to some mild tightness in her chest. Patient denies any fevers. Patient states her breathing is worse with exertion and with coughing. Physical Examination: Vital signs are stable. Patient is afebrile. Patient is in no acute distress. Oral mucosa is pink and moist. Neck is supple. Trachea is midline. No JVD noted. Heart was regular rate and rhythm. Lungs showed mild expiratory rhonchi. There is good respiratory effort noted. Abdomen is soft. Bowel sounds are normal. There is no tenderness. Cranial nerves II through XII are intact. There are no focal motor or sensory deficits noted. The remaining physical exam is within normal limits. Test Results: EKG showed normal sinus rhythm with a rate of 74. There are no acute ST or T wave changes. CBC shows slight leukocytosis of 12.4. Basic metabolic profile was essentially within normal limits. PA and lateral chest x-ray shows evidence of COPD and some mild congestion. There is no acute infiltrate. Emergency Department Course and Treatment: Patient was given a DuoNeb aerosol here. Patient felt somewhat better on reevaluation. Patient was advised that this is most likely a viral bronchitis. Patient was instructed to follow-up with her primary care physician in 5-7 days. Patient was instructed to continue the Mucinex as directed. Patient was given a prescription for Tessalon. Patient was instructed to return if worse in any way. Patient understood and was agreeable with the plan. All questions were answered. Disposition: Discharged home Impression: Viral bronchitis This note was generated with [employer] dictation software. It may contain incorrect words, spelling, and punctuation that were not noted in review of the chart prior to signing ED Disposition - Plan for ED Patient: Disposition: Home or Assisted Living Chief Complaint: Shortness of Breath Diagnosis: Bronchitis Instructions: ED Upper Resp Infec No Abx Tx Prescriptions: Benzonatate [Tessalon Perle] 200 mg PO TID PRN PRN #20 cap PRN Reason: Cough Referrals: Esperanza Baird MD [Primary Care Provider] -
--- NOTE | 2018-09-12 12:47 | ED.DCSUM_ITS ---
- ER Visit Summary Date of Service: 09/12/18 Chief Complaint: Shortness of breath and cough History of Present Illness: The patient is a 68 F who presents with shortness of breath and cough that has been getting worse over the past 2 days. Patient states it has gradually gotten worse. Patient states she has been around a family member who has had a sinus infection and someone else who has had bronchitis. Patient states she is coughing up some green sputum. Patient also admits to some rhinorrhea. Patient also admits to some mild tightness in her chest. Patient denies any fevers. Patient states her breathing is worse with exertion and with coughing. Physical Examination: Vital signs are stable. Patient is afebrile. Patient is in no acute distress. Oral mucosa is pink and moist. Neck is supple. Trachea is midline. No JVD noted. Heart was regular rate and rhythm. Lungs showed mild expiratory rhonchi. There is good respiratory effort noted. Abdomen is soft. Bowel sounds are normal. There is no tenderness. Cranial nerves II through XII are intact. There are no focal motor or sensory deficits noted. The remaining physical exam is within normal limits. Test Results: EKG showed normal sinus rhythm with a rate of 74. There are no a cute ST or T wave changes. CBC shows slight leukocytosis of 12.4. Basic metabolic profile was essentially within normal limits. PA and lateral chest x- ray shows evidence of COPD and some mild congestion. There is no acute infiltrate. Emergency Department Course and Treatment: Patient was given a DuoNeb aerosol here. Patient felt somewhat better on reevaluation. Patient was advised that this is most likely a viral bronchitis. Patient was instructed to follow-up with her primary care physician in 5-7 days. Patient was instructed to continue the Mucinex as directed. Patient was given a prescription for Tessalon. Patient was instructed to return if worse in any way. Patient understood and was agreeable with the plan. All questions were answered. Disposition: Discharged home Impression: Viral bronchitis This note was generated with [employer] dictation software. It may contain incorrect words, spelling, and punctuation that were not noted in review of the chart prior to signing ED Disposition - Plan for ED Patient: Disposition: Home or Assisted Living Chief Complaint: Shortness of Breath Diagnosis: Bronchitis Instructions: ED Upper Resp Infec No Abx Tx Prescriptions: Benzonatate [Tessalon Perle] 200 mg PO TID PRN PRN #20 cap PRN Reason: Cough Referrals: Esperanza Baird MD [Primary Care Provider] -
--- NOTE | 2018-09-12 12:51 | EKG12_ITS ---
Test Reason : SOB Blood Pressure : / mmHG Vent. Rate : 074 BPM Atrial Rate : 074 BPM P-R Int : 180 ms QRS Dur : 086 ms QT Int : 394 ms P-R-T Axes : 067 075 065 degrees QTc Int : 437 ms Normal sinus rhythm Normal ECG Confirmed by CORKY SEALS, FARHEEN ([id number]), pictures editor JUSTIN SAM ([id number]) on 09/14/2018 4:20:36 PM Referred By: XOCHITL Confirmed By:FARHEEN FRIED MD
[2018-09-12 13:49] VITALS: BP 138/70; PULSE 72; RESP 18; O2SAT 96
== END 2018-09-12 13:50 | disposition home or self-care (01) ==
PROVIDERS: Emergency Provider Emergency Medicine; Family Provider Internal Medicine; PCP Internal Medicine
DX: J20.8 Acute bronchitis due to other specified organisms (principal); J44.9 Chronic obstructive pulmonary disease, unspecified; I10 Essential (primary) hypertension; G40.909 Epilepsy, unspecified, not intractable, without status epilepticus; F31.9 Bipolar disorder, unspecified; F41.9 Anxiety disorder, unspecified; F44.9 Dissociative and conversion disorder, unspecified; D72.810 Lymphocytopenia; Z72.0 Tobacco use; Z79.51 Long term (current) use of inhaled steroids; Z79.891 Long term (current) use of opiate analgesic; Z79.899 Other long term (current) drug therapy
CPT/HCPCS: 71046; 80048; 85025; 87804; 93005; 94640; 99283

== ENCOUNTER 2018-09-29 03:24 | Observation (INO) | payer MEDICARE, SELFPAY ==
[2018-09-28 13:55] VITALS: BMI 31.6
[2018-09-29] VITALS (7 sets, daily range): BP systolic 145–163; BP diastolic 76–109; PULSE 80–97; RESP 16–18; TEMP 36.4–37.1; O2SAT 94–100; BMI 31.4
--- NOTE | 2018-09-29 03:47 | ED.DCSUM_ITS ---
- ER Visit Summary Date of Service: 09/29/18 Chief Complaint: Diarrhea History of Present Illness: The patient is a 68 F presenting with diarrhea x 2 days. She states she is now having diarrhea every 15 minutes. She saw her primary care physician and stool studies were ordered. She was unable to give a stool sample at that time. She brought in the stool sample with her. She has had no blood in her stool. She complains of frequent diarrhea. She was on an unknown antibiotic after a colonoscopy in August. She states her colonoscopy was normal. Denies nausea or vomiting. She has mild abdominal cramping. Denies fever. Physical Examination: Vitals are stable. Patient is afebrile. Alert no acute distress. HEENT exam is unremarkable. Neck is supple. Lungs are clear and equal bilaterally. Heart is regular rate and rhythm. Abdomen is soft nontender nondistended. No guarding or rebound. Extremities are unremarkable. Skin is warm and dry. Remainder of exam is unremarkable. Emergency Department Course and Treatment: Patient was given IV fluids. CBC, chemistries are unremarkable. Patient has had several episodes of diarrhea in the emergency department. C. difficile and stool studies are pending. Patient does not feel that she can go home. Will discuss with hospitalist for observation. Disposition: Observation Impression: Diarrhea This note was generated with [employer] dictation software. It may contain incorrect words, spelling, and punctuation that were not noted in review of the chart prior to signing ED Disposition - Plan for ED Patient: Chief Complaint: Diarrhea Referrals: Esperanza Baird MD [Primary Care Provider] -
[2018-09-29 03:50] LABS: Absolute Lymphocyte Count 2.13 X10^3/ul (0.83-4.51); Absolute Neutrophil Count 5.5 X10^3/uL (2.0-7.7); Basophil# 0.04 X10^3/uL; Basophil% 0.4 % (0-1); Eosinophil# 0.25 X10^3/uL; Eosinophils% 2.8 % (0-5); Hematocrit 40.6 % (37-47); Hemoglobin 13.4 g/dl (12.0-15.0); Lymphocyte # 2.13 X10^3/ul (4.0); Lymphocyte % 23.5 % (19-41); Mean Corpuscular Hgb 30.8 pg (27.0-32.0); Mean Corpuscular Volume 93.3 fL (81-99); Mean Platelet Vol. 9.8 fl (6.2-12.0); Monocyte% 12.1 % (0-10); Neutrophil % 60.5 % (47-70); POSITIVE COUNT NO; POSITIVE DIFFERENTIAL NO; POSITIVE MORPHOLOGY NO; Platelet Count 508 K/mm3 (150-450); RBC Distribution Width CV 14.1 % (11.6-14.6); RBC Distribution Width SD 46.4 fl (35.1-43.9); Red Blood Count 4.35 M/mm3 (4.2-5.4); White Blood Count 9.1 K/mm3 (4.4-11.0)
[2018-09-29] MEDS: 0.9% Normal Saline 1,000 ML 999 ML IV (03:52)
[2018-09-29 03:58] LABS: Anion Gap 7 (5-15); BUN 25 mg/dL (7-18); BUN/Creat Ratio 30.1 RATIO (10-20); Calcium,Total 8.6 mg/dL (8.5-10.1); Chloride 106 mmol/L (98-107); Creatinine, Serum 0.83 mg/dL (0.55-1.02); EST Glomerular Filtration Rate 73 mL/min (>60); Est Glom Filt Rate - Afr Amer 88 mL/min (>60); Estimated Creatinine Clearance 50.31 ml/min; Glucose 99 mg/dL (74-106); Potassium 3.9 mmol/L (3.5-5.1); Sodium Level 143 mmol/L (136-145)
--- NOTE | 2018-09-29 04:35 | HP.PCM_ITS ---
Problem List (1) Acute infective gastroenteritis Status: Suspected (2) Thrombocytosis Status: Chronic (3) History of skin cancer Status: Resolved (4) Dissociative identity disorder Status: Chronic History of Present Illness Date of Admission: 09/29/18 Chief Complaint: Abdominal pain and diarrhea The patient is a 68 year old F with a significant history of COPD; former opioid multiple personality disorder; seizure disorder; basal cell carcinoma status post multiple surgeries on her face who presented because of diarrhea that started about 3 days prior to admission. Patient reports that she has been having a bowel movement about every 15 minutes. She saw her PCP who ordered a stool sample. However because she was not able to produce any stool at that time she brought her stool to the emergency department. Associated with her symptoms is nausea without vomiting; and sitophobia.. Further patient has abdominal cramps that started a day before her diarrhea started. He denies any relieving factors to her pain. She reports that food aggravates her pain. However she states that she has not had any food after her symptoms started. She reports an unremarkable routine colonoscopy last month. Patient reports that recently she has been exposed to antibiotics. She reported that the last time she had food was about 4 days ago. At that time she had she had food from [employer]. Her abdominal pain began at that time. She reports chills and a home temperature of 99. She reports that typically her temperature is 97.0. Past Medical History Past Medical History (Chronic Problems): Chronic Problems (Last Reviewed 09/28/18 @ 13:53 by Aurea Wallace) Hemangioma of face (Chronic) 4 mm capillary hemangioma right scientologist by hairline Benign neoplasm of skin of cheek (Chronic) 5 mm intradermal nevus right lateral cheek Basal cell carcinoma of right medial cheek (Chronic) 5 mm basal cell carcinoma right supramedial cheek Basal cell carcinoma of upper lip (Chronic) 6 mm basal cell carcinoma right upper lip by nasolabial fold Basal cell carcinoma of right forehead (Chronic) 11 mm basal cell carcinoma right medial forehead Former smoker (Chronic) Personal history of skin cancer (Chronic) Neoplasm of skin of right cheek (Chronic) 5 mm lesion right lateral cheek Neoplasm of skin of scientologist region (Chronic) 4 mm pigmented lesion right scientologist by hairline Neoplasm of skin of lip (Chronic) 6 mm lesion right upper lip by nasolabial fold Neoplasm of skin of forehead (Chronic) 11 mm lesion right medial forehead Manic depressive disorder (Chronic) Hypertension (Chronic) Tobacco abuse (Chronic) Noncompliance (Chronic) Bipolar disorder (Chronic) Opioid dependence (Chronic) COPD (chronic obstructive pulmonary disease) (Chronic) Rheumatoid arthritis (Chronic) Chronic back pain (Chronic) Osteopenia (Chronic) Hepatitis (Chronic) Hyperlipidemia (Chronic) GERD (gastroesophageal reflux disease) (Chronic) Seizure (Chronic) Thrombocytosis (Chronic) PTSD (post-traumatic stress disorder) (Chronic) Essential thrombocythemia (Chronic) Dissociative identity disorder (Chronic) Medical History: Medical History (Last Reviewed 09/29/18 @ 05:45 by Urban Vegas MD) History of skin cancer (Resolved) Z85.828 Dissociative identity disorder (Chronic) F44.81 COPD (chronic obstructive pulmonary disease) J44.9 History of UTI Z87.440 Kidney failure N19 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 Panic attacks F41.0 H/O: hysterectomy Z90.710 1998 Allergies iloperidone [From Fanapt] Allergy (Verified 09/28/18 13:54) Other CAUSES PT TO NOT WALK OR SPEAK lurasidone [From Latuda] Allergy (Verified 09/28/18 13:54) Other paliperidone [From Invega] Allergy (Verified 09/28/18 13:54) increased psychiatric symptoms trazodone Allergy (Verified 09/28/18 13:54) Other theophylline Adverse Reaction (Verified 09/28/18 13:54) Other SLOBID Adverse Reaction (Uncoded 09/28/18 13:54) Other Home Medications: Ambulatory Orders Medication Instructions Recorded Pravastatin [Pravachol] 40 mg PO QHS 12/18/17 Buprenorphine HCl/Naloxone HCl 1 ea SL BID 12/24/17 [Suboxone 8 mg-2 mg Sl Film] famotidine 10 mg tablet 10 mg PO DAILY #90 tab 06/16/18 ferrous sulfate 325 mg (65 mg 325 mg PO DAILY #90 tab 07/14/18 iron) tablet miconazole nitrate 2 % topical 1 applic TOPICAL BID #71 g 07/14/18 powder polyethylene glycol 3350 17 See Rx Instructions PO .COMPLEX 08/09/18 gram/dose oral powder #238 g walker See Dose Instructions .ROUTE 08/19/18 .MEDSUPPLY #1 ea albuterol sulfate HFA 90 1 puff INHALATION Q4H PRN PRN #8.5 09/07/18 mcg/actuation aerosol inhaler g blood pressure monitor kit See Dose Instructions .ROUTE 09/07/18 .MEDSUPPLY #1 ea divalproex ER 250 mg 500 mg PO BID #120 tab 09/07/18 tablet,extended release 24 hr incontinence pad, liner, disposable See Dose Instructions .ROUTE 09/07/18 .MEDSUPPLY #200 ea shower chair #1 ea 09/07/18 dextromethorphan-guaifenesin ER 60 1 tab PO Q12H PRN #20 tab 09/15/18 mg-1,200 mg tab,extend release,12hr lisinopril 40 mg tablet 40 mg PO DAILY #90 tab 09/15/18 calcium carbonate 600 mg calcium 600 mg PO BID #60 tab 09/22/18 (1,500 mg) tablet sennosides 8.6 mg-docusate sodium 1 tab PO BID PRN #60 tab 09/22/18 50 mg tablet metoprolol tartrate 25 mg tablet 25 mg PO BID #60 tab 09/28/18 Surgical History: Surgical History (Last Reviewed 09/29/18 @ 05:45 by Urban Vegas MD) History of 3 sections Z87.59 History of cholecystectomy Z90.49 03/05 History of colonoscopy Z98.890 09/05/18 History of hernia repair Z98.890, Z87.19 H/O hernia repair Z98.890, Z87.19 History of Z98.891 1980 1980 1985 Surgical History: hysterectomy, - - C-sections - 3, abdominal hysterectomy, hernia repair with mesh?. Lives: Alone Smoking Status: Former smoker - *Family History Maternal Family History: Family History (Last Updated 09/29/18 @ 05:47 by Urban Vegas MD) Brother Colon cancer Lung cancer Aunt Obesity Sister Obesity Mother Rheumatoid arthritis Father Alzheimer disease Brother Alzheimer disease History Items: No pertinent history Paternal Family History: Family History (Last Updated 09/29/18 @ 05:47 by Urban Vegas MD) Brother Colon cancer Lung cancer Aunt Obesity Sister Obesity Mother Rheumatoid arthritis Father Alzheimer disease Brother Alzheimer disease History Items: No pertinent history Sibling Family History: Family History (Last Updated 09/29/18 @ 05:47 by Urban Vegas MD) Brother Colon cancer Lung cancer Aunt Obesity Sister Obesity Mother Rheumatoid arthritis Father Alzheimer disease Brother Alzheimer disease History Items: Cancer Review of Systems Constitutional: Reports: Chills HEENT: Denies: Head Aches, Sinus Congestion, Sinus Drainage Cardiovascular: Denies: Chest Pain, Palpitations Respiratory: Denies: Cough, Shortness of breath at rest, Sputum production Gastrointestinal: Reports: Abdominal Pain, Diarrhea, Nausea. Denies: Vomiting Genitourinary: Denies: Dysuria Musculoskeletal: Denies: Joint Pain, Joint Tenderness Skin: Denies: Rash, Wounds Neurological: Denies: Numbness, Tingling, Focal weakness Psychiatric: Denies: Anxiety, Depression, Homicidal Ideations, Suicidal Ideations Hematologic/ Lymphatic: Denies: Easy Bruising, Easy Bleeding VTE Information - Inpt Only VTE Present on Admission: No VTE Mechan Device Prophylaxis: None VTE Pharm Prophylaxis ordered?: Yes Patient Problems: Active and Suspected Problems (Last Reviewed 09/28/18 @ 13:53 by Aurea Wallace) Acute infective gastroenteritis (Suspected) - Physical Exam General: Alert, Oriented x3, Cooperative HEENT: Atraumatic, PERRLA, EOMI, Normocephalic Neck: Supple, No JVD, Negative Carotid Bruits Lungs: Clear to auscultation, Normal air movement Cardiovascular: Regular rate, No murmurs Abdomen: Bowel Sounds Present - hyperactive bowel sounds, Soft, Tender - mild Extremities: No edema, Capillary Refill Less than 3 Seconds Skin: No rashes, No breakdown Musculoskeletal: No Tenderness to Palpation of Joints or Extremities Neurological: Neuro grossly intact Psych/Mental Status: Normal Affect, Appropriate Vital Signs Temp Pulse Resp BP Pulse Ox 97.9 F 97 18 163/109 H 94 09/29/18 03:25 09/29/18 03:25 09/29/18 03:25 09/29/18 03:25 09/29/18 03:25 Oxygen Delivery Method Room Air Weight: 75.4 kg Body Mass Index (BMI) 31.4 Finger Stick Blood Glucose 161 Laboratory Tests Past 24 Hrs 09/29/18 09/29/18 03:36 03:36 WBC 9.1 RBC 4.35 Hgb 13.4 Hct 40.6 MCV 93.3 MCH 30.8 MCHC 33.0 RDW 14.1 RDW Differential 46.4 H Plt Count 508 H MPV 9.8 Immature Gran % (Auto) 0.700 Neut % (Auto) 60.5 Lymph % (Auto) 23.5 Waldo % (Auto) 12.1 H Eos % (Auto) 2.8 Baso % (Auto) 0.4 Absolute Neuts (auto) 5.5 Absolute Lymphs (auto) 2.13 Total Counted Not Reportable Sodium 143 Potassium 3.9 Chloride 106 Carbon Dioxide 30.0 Anion Gap 7 BUN 25 H Creatinine 0.83 Estim Creat Clear Calc 50.31 Est GFR (MDRD) Af Amer 88 Est GFR (MDRD) Non-Af 73 BUN/Creatinine Ratio 30.1 H Glucose 99 Calcium 8.6 Assessment/Plan All Active Problems (Last Reviewed 09/28/18 @ 13:53 by Aurea Wallace) Laura (Acute) Vitamin D deficiency (Acute) Transaminitis (Acute) Cholecystitis (Acute) Obstructive jaundice (Acute) Intertriginous dermatitis associated with moisture (Acute) History of skin cancer (Resolved) YANE (acute kidney injury) (Resolved) Dehydration (Resolved) Delirium (Resolved) Osteoarthritis (Resolved) Pneumonia (Resolved) The patient is a 68 year old F with a significant history of COPD; former opioid abuse; multiple personality disorder; seizure disorder; basal cell carcinoma status post multiple surgeries on her face who presented with diarrhea; nausea and abdominal cramping consistent with acute gastroenteritis. Acute gastroenteritis Differential diagnosis includes viral gastroenteritis or bacterial gastroenteritis. Less likely parasitic since her symptoms began 3-4 days ago. Patient BUN is elevated. Her BUN about a month ago was 12-14. On admission her BUN was 25. Her sodium is high normal at 143. Elevated BUN and sodium is likely from dehydration from diarrhea. Will start patient on LR with 40 mEq of potassium going at 100 MLS per hour We will start patient's on ciprofloxacin and Flagyl for possible bacteria gastroenteritis especially as patient reports that her bowels are moving every 15 minutes; low-grade fever and chills.. Supportive treatment with IV antiemetics Enteric stool pathogen and C. difficile were ordered for the emergency department.; Results are pending. Giardia stool antigen and O&P ordered. Bentyl IM for abdominal pain COPD Stable Albuterol as needed continued. Hypertension On admission blood pressure was not within goal. She reported that recently her lisinopril was increased to 40 mg daily; will continue lisinopril at 40 mg daily. She reported recently her metoprolol was increased from once daily to twice daily.; We will continue metoprolol twice daily. However she reports not taking her blood pressure medication because of nausea. We will add as needed Hydralazine Drug abuse Patient is in recovery. She attends [facility]. No narcotics at this time. Suboxone continued. GERD Famotidine continued. 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 Intertrigo Miconazole nitrate to under breasts and abdominal folds continue Hyperlipidemia Will hold pravachol since patient is nauseous. Thrombocytosis Chronic DVT prophylaxis Lovenox ordered. Code Visit OBSV E&M: [id number] Initial observation care L3
[2018-09-29] MEDS: Dicyclomine 20 MG/2 ML Vial IM (04:45)
[2018-09-29] MEDS: Ondansetron 4 MG/2 ML Vial IV (08:28)
--- NOTE | 2018-09-29 10:03 | DCINST_ITS ---
- Discharge Diagnoses Reason(s) for Visit for Discharge Instructions: Abdominal pain, diarrhea You will use the following diet at home:: Cardiac Your food should be the consistency of: Regular Your liquids should be the consistency of: Regular/Thin Discharge Activity: Return to Normal Activity Additional Instructions: Continue on a liquid diet for 1-2 days and advance as can be tolerated until you are on a regular textured diet. Follow-up with your primary care doctor within 2 weeks. Allergies/Adverse Reactions: Allergies iloperidone [From Fanapt] Allergy (Verified 09/28/18 13:54) Other CAUSES PT TO NOT WALK OR SPEAK lurasidone [From Latuda] Allergy (Verified 09/28/18 13:54) Other paliperidone [From Invega] Allergy (Verified 09/28/18 13:54) increased psychiatric symptoms trazodone Allergy (Verified 09/28/18 13:54) Other theophylline Adverse Reaction (Verified 09/28/18 13:54) Other SLOBID Adverse Reaction (Uncoded 09/28/18 13:54) Other Medications to take at Discharge Pravastatin [Pravachol] 40 mg PO QHS 12/18/17 Buprenorphine HCl/Naloxone HCl [Suboxone 8 mg-2 mg Sl Film] 2 ea SL DAILY 12/24/17 famotidine 10 mg tablet 10 mg PO DAILY #90 tab 06/16/18 ferrous sulfate 325 mg (65 mg iron) tablet 325 mg PO DAILY #90 tab 07/14/18 miconazole nitrate 2 % topical powder 1 applic TOPICAL BID #71 g 07/14/18 albuterol sulfate HFA 90 mcg/actuation aerosol inhaler 1 puff INHALATION Q4H PRN PRN #8.5 g 09/07/18 divalproex ER 250 mg tablet,extended release 24 hr 500 mg PO BID #120 tab 09/07/18 dextromethorphan-guaifenesin ER 60 mg-1,200 mg tab,extend release,12hr 1 tab PO Q12H PRN #20 tab 09/15/18 lisinopril 40 mg tablet 40 mg PO DAILY #90 tab 09/15/18 calcium carbonate 600 mg calcium (1,500 mg) tablet 600 mg PO BID #60 tab 09/22/18 sennosides 8.6 mg-docusate sodium 50 mg tablet 1 tab PO BID PRN #60 tab 09/22/18 metoprolol tartrate 25 mg tablet 25 mg PO BID #60 tab 09/28/18 Dicyclomine HCl [Bentyl] 20 mg PO 4X/DAY #30 capsule 09/29/18 The following prescriptions were given: Dicyclomine HCl [Bentyl] 20 mg PO 4X/DAY #30 capsule Primary Care Physician: Esperanza Baird MD [Primary Care Provider] - Please follow up with your Primary Care Physician in: within 1-2 weeks Test Results: Test results from this visit will be discussed in further detail at your follow- up appointment, if applicable. Proposed Discharge Date: 09/29/18
[2018-09-29] MEDS: Divalproex (ER) 500 MG Tablet PO (10:15)
[2018-09-29] MEDS: BUPRENORPHINE HCL 8 MG TAB.SUBL SL (10:15)
[2018-09-29] MEDS: Enoxaparin 40 MG/0.4 ML Syringe SC (10:15)
[2018-09-29] MEDS: Ciprofloxacin 400 MG/200 ML BAG 200 MG IV (10:15)
[2018-09-29] MEDS: Metoprolol Tartrate 25 MG Tablet PO (10:16)
[2018-09-29] MEDS: Famotidine 20 MG Tablet 10 MG PO (10:16)
[2018-09-29] MEDS: Lisinopril 40 MG Tablet PO (10:16)
--- NOTE | 2018-09-29 11:06 | PCM.DC.SUM ---
Discharge Date and Diagnosis - Problem List Patient Problems: Active and Suspected Problems (Last Reviewed 09/29/18 @ 05:45 by Urban Vegas MD) Acute infective gastroenteritis (Suspected) Date of Admission: 09/29/18 Date of Discharge: 09/29/18 - Primary Discharge Diagnosis Active and Suspected Problems (Last Reviewed 09/29/18 @ 05:45 by Urban Vegas MD) Acute infective gastroenteritis (Suspected) - Secondary Discharge Diagnosis Chronic Problems (Last Reviewed 09/29/18 @ 05:45 by Urban Vegas MD) Hemangioma of face (Chronic) 4 mm capillary hemangioma right confucianism by hairline Benign neoplasm of skin of cheek (Chronic) 5 mm intradermal nevus right lateral cheek Basal cell carcinoma of right medial cheek (Chronic) 5 mm basal cell carcinoma right supramedial cheek Basal cell carcinoma of upper lip (Chronic) 6 mm basal cell carcinoma right upper lip by nasolabial fold Basal cell carcinoma of right forehead (Chronic) 11 mm basal cell carcinoma right medial forehead Former smoker (Chronic) Personal history of skin cancer (Chronic) Neoplasm of skin of right cheek (Chronic) 5 mm lesion right lateral cheek Neoplasm of skin of confucianism region (Chronic) 4 mm pigmented lesion right confucianism by hairline Neoplasm of skin of lip (Chronic) 6 mm lesion right upper lip by nasolabial fold Neoplasm of skin of forehead (Chronic) 11 mm lesion right medial forehead Manic depressive disorder (Chronic) Hypertension (Chronic) Tobacco abuse (Chronic) Noncompliance (Chronic) Bipolar disorder (Chronic) Opioid dependence (Chronic) COPD (chronic obstructive pulmonary disease) (Chronic) Rheumatoid arthritis (Chronic) Chronic back pain (Chronic) Osteopenia (Chronic) Hepatitis (Chronic) Hyperlipidemia (Chronic) GERD (gastroesophageal reflux disease) (Chronic) Seizure (Chronic) Thrombocytosis (Chronic) PTSD (post-traumatic stress disorder) (Chronic) Essential thrombocythemia (Chronic) Dissociative identity disorder (Chronic) Hospital Course and Treatment None Procedures: None Summary of Care Provided: The patient is a 68 year old F with past medical history of COPD, history of opioid dependence, on Suboxone, personality disorder, seizure disorder, comes in with complaints of diarrhea ongoing for 3 days. Patient said she has had a viral bronchitis and subsequently has been having multiple bowel movements. Over the last few days prior to admission, she has a bowel movement every 15 minutes. She went to see her primary care doctor who ordered a stool sample. She was on unable to produce any sample and brought her stool to the emergency department. Associated is nausea without vomiting. Patient stool sample was negative for C. difficile. Stool for enteric panel was negative. No episode of diarrhea was seen during the admission. Patient remained stable, vitals were stable. She was able to tolerate a liquid diet. She was discharged to continue with conservative management and follow-up with her primary care doctor. Patient Problems: Active and Suspected Problems (Last Reviewed 09/29/18 @ 05:45 by Urban Vegas MD) Acute infective gastroenteritis (Suspected) Subjective: On the day of discharge, patient felt improved, some mild abdominal cramps, denied any fever or chills. - Physical Exam General: Alert, Oriented x3, Cooperative, No apparent distress HEENT: Atraumatic, PERRLA, EOMI, Normocephalic Oral: Moist Mucosa Neck: Supple, No JVD, Negative Carotid Bruits Lungs: Clear to auscultation, Normal air movement Cardiovascular: Regular rate, Regular Rhythm, Normal S1, Normal S2, No murmurs Abdomen: Bowel Sounds Present, Soft, Non Tender, Non-Distended, No Hepato-splenomegaly Extremities: No edema Skin: No rashes, No breakdown Musculoskeletal: No Tenderness to Palpation of Joints or Extremities Lymphatic: No Cervical, Supraclavicular, or Inguinal Adenopathy Neurological: Cranial nerves II-XII grossly intact, Neuro grossly intact Psych/Mental Status: Normal Affect, Appropriate Vital Signs Temp Pulse Resp BP Pulse Ox 97.6 F L 85 18 156/94 H 96 09/29/18 08:25 09/29/18 10:16 09/29/18 08:25 09/29/18 08:25 09/29/18 10:50 Oxygen Delivery Method Room Air Weight: 75.4 kg Body Mass Index (BMI) 31.4 Finger Stick Blood Glucose 161 Microbiology Past 72 Hours 09/29/18 03:45 Enteric Bacteriology - Final Stool 09/29/18 03:45 C. difficile DNA Amplification - Final Stool Laboratory Tests Past 24 Hrs 09/29/18 09/29/18 09/29/18 03:36 03:36 03:45 WBC 9.1 RBC 4.35 Hgb 13.4 Hct 40.6 MCV 93.3 MCH 30.8 MCHC 33.0 RDW 14.1 RDW Differential 46.4 H Plt Count 508 H MPV 9.8 Immature Gran % (Auto) 0.700 Neut % (Auto) 60.5 Lymph % (Auto) 23.5 Graves % (Auto) 12.1 H Eos % (Auto) 2.8 Baso % (Auto) 0.4 Absolute Neuts (auto) 5.5 Absolute Lymphs (auto) 2.13 Total Counted Not Reportable Sodium 143 Potassium 3.9 Chloride 106 Carbon Dioxide 30.0 Anion Gap 7 BUN 25 H Creatinine 0.83 Estim Creat Clear Calc 50.31 Est GFR (MDRD) Af Amer 88 Est GFR (MDRD) Non-Af 73 BUN/Creatinine Ratio 30.1 H Glucose 99 Calcium 8.6 Stl Giardia Antigen Pending Discharge Diet: Light diet - advance as tolerated Discharge Activity: Return to Normal Activity Home Medications: Medications to take at Discharge Pravastatin [Pravachol] 40 mg PO QHS 12/18/17 Buprenorphine HCl/Naloxone HCl [Suboxone 8 mg-2 mg Sl Film] 2 ea SL DAILY 12/24/17 famotidine 10 mg tablet 10 mg PO DAILY #90 tab 06/16/18 ferrous sulfate 325 mg (65 mg iron) tablet 325 mg PO DAILY #90 tab 07/14/18 miconazole nitrate 2 % topical powder 1 applic TOPICAL BID #71 g 07/14/18 albuterol sulfate HFA 90 mcg/actuation aerosol inhaler 1 puff INHALATION Q4H PRN PRN #8.5 g 09/07/18 divalproex ER 250 mg tablet,extended release 24 hr 500 mg PO BID #120 tab 09/07/18 dextromethorphan-guaifenesin ER 60 mg-1,200 mg tab,extend release,12hr 1 tab PO Q12H PRN #20 tab 09/15/18 lisinopril 40 mg tablet 40 mg PO DAILY #90 tab 09/15/18 calcium carbonate 600 mg calcium (1,500 mg) tablet 600 mg PO BID #60 tab 09/22/18 sennosides 8.6 mg-docusate sodium 50 mg tablet 1 tab PO BID PRN #60 tab 09/22/18 metoprolol tartrate 25 mg tablet 25 mg PO BID #60 tab 09/28/18 Dicyclomine HCl [Bentyl] 20 mg PO 4X/DAY #30 capsule 09/29/18 Following Prescrptions Were Given to Patient: Dicyclomine HCl [Bentyl] 20 mg PO 4X/DAY #30 capsule Primary Care Physician: Esperanza Baird MD [Primary Care Provider] - Please follow up with your Primary Care Physician in: within 1-2 weeks Disposition: Home Minutes spent on discharge:: 40 Patient Condition:: Stable Medical Necessity - Tobacco Use Smoking Status: Former smoker Meaningful Use Info Meaningful Use Diagnoses (Choose all that apply): None applicable Code Visit OBSV E&M: 68902 Observation care discharge
--- OUTSIDE RECORDS SUMMARY | 2018-11-15 01:06 | XMS RPT_ITS ---
:1950 Author Organization OHIP Support Name Relationship Address Phone D Unavailable Unavailable Unavailable GRESH, BRAYAN Unavailable [address] + [place] [address] GRESH, NAHID Unavailable [address] +[address] [place] [address] D Unavailable Unavailable Unavailable GRESH, BRAYAN Unavailable [address] + [place] [address] GRESH, NAHID Unavailable [address] +[address] [place] [address] D Unavailable Unavailable Unavailable GRESH, BRAYAN Unavailable [address] + [place] [address] GRESH, NAHID Unavailable [address] +[address] [place] [address] D Unavailable Unavailable Unavailable GRESH, BRAYAN Unavailable [address] + [place] [address] GRESH, NAHID Unavailable [address] +[address] [place] [address] D Unavailable Unavailable Unavailable GRESH, BRAYAN Unavailable [address] + [place] [address] GRESH, NAHID Unavailable [address] +[address] [place] [address] D Unavailable Unavailable Unavailable GRESH, BRAYAN Unavailable [address] + [place] [address] GRESH, NAHID Unavailable [address] +[address] [place] [address] D Unavailable Unavailable Unavailable GRESH, BRAYAN Unavailable [address] + [place] [address] GRESH, NAHID Unavailable [address] +[address] [place] [address] D Unavailable Unavailable Unavailable GRESH, BRAYAN Unavailable [address] + [place] [address] GRESH, NAHID Unavailable [address] +NO [address] [place] [address] D Unavailable Unavailable Unavailable GRESH, BRAYAN Unavailable [address] + [place] [address] GRESH, NAHID Unavailable [address] + [address] [place] [address] D Unavailable Unavailable Unavailable GRESH, BRAYAN Unavailable [address] + [place] [address] GRESH, NAHID Unavailable [address] + [address] [place] [address] D Unavailable Unavailable Unavailable GRESH, BRAYAN Unavailable [address] + [place] [address] GRESH, NAHID Unavailable [address] + [address] [place] [address] D Unavailable Unavailable Unavailable GRESH, BRAYAN Unavailable [address] + [place] [address] GRESH, NAHID Unavailable [address] + [address] [place] [address] D Unavailable Unavailable Unavailable GRESH, BRAYAN Unavailable [address] + [place] [address] GRESH, NAHID Unavailable [address] + [address] [place] [address] D Unavailable Unavailable Unavailable GRESH, BRAYAN Unavailable [address] + [place] [address] GRESH, NAHID Unavailable [address] + [address] [place] [address] D Unavailable Unavailable Unavailable GRESH, BRAYAN Unavailable [address] + [place] [address] GRESH, NAHID Unavailable [address] + [address] [place] [address] D Unavailable Unavailable Unavailable GRESH, BRAYAN Unavailable [address] + [place] [address] GRESH, NAHID Unavailable [address] + [address] [place] [address] D Unavailable Unavailable Unavailable GRESH, BRAYAN Unavailable [address] + [place] [address] GRESH, NAHID Unavailable [address] + [address] [place] [address] D Unavailable Unavailable Unavailable GRESH, BRAYAN Unavailable [address] + [place] [address] GRESH, NAHID Unavailable [address] + [address] [place] [address] D Unavailable Unavailable Unavailable GRESH, BRAYAN Unavailable [address] + [place] [address] GRESH, NAHID Unavailable [address] + [address] [place] [address] D Unavailable Unavailable Unavailable GRESH, BRAYAN Unavailable [address] + [place] [address] GRESH, NAHID Unavailable [address] + [address] [place] [address] D Unavailable Unavailable Unavailable GRESH, BRAYAN Unavailable [address] + [place] [address] GRESH, NAHID Unavailable [address] + [address] [place] [address] D Unavailable Unavailable Unavailable GRESH, BRAYAN Unavailable [address] + [place] [address] GRESH, NAHID Unavailable [address] + [address] [place] [address] D Unavailable Unavailable Unavailable GRESH, BRAYAN Unavailable [address] + [place] [address] GRESH, NAHID Unavailable [address] + [address] [place] [address] D Unavailable Unavailable Unavailable GRESH, BRAYAN Unavailable [address] + [place] [address] GRESH, NAHID Unavailable [address] + [address] [place] [address] D Unavailable Unavailable Unavailable GRESH, BRAYAN Unavailable [address] + [place] [address] GRESH, NAHID Unavailable [address] + [address] [place] [address] D Unavailable Unavailable Unavailable GRESH, BRAYAN Unavailable [address] + [place] [address] GRESH, NAHID Unavailable [address] + [address] [place] [address] D Unavailable Unavailable Unavailable GRESH, BRAYAN Unavailable [address] + [place] [address] GRESH, NAHID Unavailable [address] + [address] [place] [address] D Unavailable Unavailable Unavailable GRESH, BRAYAN Unavailable [address] + [place] [address] GRESH, NAHID Unavailable [address] + [address] [place] [address] D Unavailable Unavailable Unavailable GRESH, BRAYAN Unavailable [address] + [place] [address] GRESH, NAHID Unavailable [address] + [address] [place] [address] D Unavailable Unavailable Unavailable GRESH, BRAYAN Unavailable [address] + [place] [address] GRESH, NAHID Unavailable [address] + [address] [place] [address] D Unavailable Unavailable Unavailable GRESH, BRYAAN Unavailable [address] + [place] [address] GRESH, NAHID Unavailable [address] + [address] [place] [address] D Unavailable Unavailable Unavailable GRESH, BRAYAN Unavailable [address] + [place] [address] GRESH, NAHID Unavailable [address] + [address] [place] [address] D Unavailable Unavailable Unavailable GRESH, BRAYAN Unavailable [address] + [place] [address] GRESH, NAHID Unavailable [address] + [address] [place] [address] D Unavailable Unavailable Unavailable GRESH, BRAYAN Unavailable [address] + [place] [address] GRESH, NAHID Unavailable [address] +[phone]~330-[address] [place] [address] D Unavailable Unavailable Unavailable GRESH, BRAYAN Unavailable [address] + [place] [address] GRESH, NAHID Unavailable [address] [phone]~330-[address] [place] [address] D Unavailable Unavailable Unavailable GRESH, BRAYAN Unavailable [address] + [place] [address] GRESH, NAHID Unavailable [address] [phone]~330-[address] [place] [address] D Unavailable Unavailable Unavailable GRESH, BRAYAN Unavailable [address] + [place] [address] GRESH, NAHID Unavailable [address] [phone]~330-[address] [place] [address] D Unavailable Unavailable Unavailable GRESH, BRAYAN Unavailable [address] + [place] [address] GRESH, NAHID Unavailable [address] [phone]~330-[address] [place] [address] D Unavailable Unavailable Unavailable GRESH, BRAYAN Unavailable [address] + [place] [address] GRESH, NAHID Unavailable [address] [phone]~330-[address] [place] [address] D Unavailable Unavailable Unavailable GRESH, BRAYAN Unavailable [address] + [place] [address] GRESH, NAHID Unavailable [address] [phone]~330-[address] [place] [address] D Unavailable Unavailable Unavailable GRESH, BRAYAN Unavailable [address] + [place] [address] GRESH, NAHID Unavailable [address] [phone]~330-[address] [place] [address] D Unavailable Unavailable Unavailable GRESH, BRAYAN Unavailable [address] + [place] [address] GRESH, NAHID Unavailable [address] [phone]~330-[address] [place] [address] D Unavailable Unavailable Unavailable GRESH, BRAYAN Unavailable [address] + [place] [address] GRESH, NAHID Unavailable [address] [phone]~330-[address] [place] [address] D Unavailable Unavailable Unavailable GRESH, BRAYAN Unavailable [address] + [place] [address] GRESH, NAHID Unavailable [address] [phone]~330-[address] [place] [address] D Unavailable Unavailable Unavailable GRESH, BRAYAN Unavailable [address] + [place] [address] GRESH, NAHID Unavailable [address] [phone]~330-[address] [place] [address] D Unavailable Unavailable Unavailable GRESH, BRAYAN Unavailable [address] + [place] [address] GRESH, NHAID Unavailable [address] [phone]~330-[address] [place] [address] D Unavailable Unavailable Unavailable GRESH, BRAYAN Unavailable [address] + [place] [address] GRESH, NAHID Unavailable [address] [phone]~330-[address] [place] [address] D Unavailable Unavailable Unavailable GRESH, BRAYAN Unavailable [address] + [place] [address] GRESH, NAHID Unavailable [address] [phone]~330-[address] [place] [address] D Unavailable Unavailable Unavailable GRESH, BRAYAN Unavailable [address] + [place] [address] GRESH, NAHID Unavailable [address] [phone]~330-[address] [place] [address] D Unavailable Unavailable Unavailable GRESH, BRAYAN Unavailable [address] + [place] [address] GRESH, NAHID Unavailable [address] [phone]~330-[address] [place] [address] D Unavailable Unavailable Unavailable GRESH, BRAYAN Unavailable [address] + [place] [address] GRESH, NAHID Unavailable [address] [phone]~330-[address] [place] [address] D Unavailable Unavailable Unavailable GRESH, BRAYAN Unavailable [address] + [place] [address] GRESH, NAHID Unavailable [address] [phone]~330-[address] [place] [address] D Unavailable Unavailable Unavailable GRESH, BRAYAN Unavailable [address] + [place] [address] GRESH, NAHID Unavailable [address] [phone]~330-[address] [place] [address] D Unavailable Unavailable Unavailable GRESH, BRAYAN Unavailable [address] + [place] [address] GRESH, NAHID Unavailable [address] [phone]~330-[address] [place] [address] D Unavailable Unavailable Unavailable GRESH, BRAYAN Unavailable [address] + [place] [address] GRESH, NAHID Unavailable [address] [phone]~330-[address] [place] [address] D Unavailable Unavailable Unavailable GRESH, BRAYAN Unavailable [address] + [place] [address] GRESH, NAHID Unavailable [address] [phone]~330-[address] [place] [address] D Unavailable Unavailable Unavailable GRESH, BRAYAN Unavailable [address] + [place] [address] GRESH, NAHID Unavailable [address] [phone] [place] [address] D Unavailable Unavailable Unavailable GRESH, BRAYAN Unavailable [address] + [place] [address] GRESH, NAHID Unavailable [address] + [address] [place] [address] D Unavailable Unavailable Unavailable GRESH, BRAYAN Unavailable [address] + [place] [address] GRESH, NAHID Unavailable [address] + [address] [place] [address] D Unavailable Unavailable Unavailable GRESH, BRAYAN Unavailable [address] + [place] [address] GRESH, NAHID Unavailable [address] + [address] [place] [address] D Unavailable Unavailable Unavailable GRESH, BRAYAN Unavailable [address] + [place] [address] GRESH, NAHID Unavailable [address] + [address] [place] [address] D Unavailable Unavailable Unavailable GRESH, BRAYAN Unavailable [address] + [place] [address] GRESH, NAHID Unavailable [address] + [address] [place] [address] D Unavailable Unavailable Unavailable GRESH, BRAYAN Unavailable [address] + [place] [address] GRESH, NAHID Unavailable [address] + [address] [place] [address] D Unavailable Unavailable Unavailable GRESH, BRAYAN Unavailable [address] + [place] [address] GRESH, NAHID Unavailable [address] + [address] [place] [address] D Unavailable Unavailable Unavailable GRESH, BRAYAN Unavailable [address] + [place] [address] GRESH, NAHID Unavailable [address] + [address] [place] [address] Care Team Providers Name Role Phone Nino, Tarun [employer] [facility] Attending Unavailable Oleghe, Efewongbe Referring Unavailable Oleghe, Efewongbe Primary Care Unavailable Shasta Urban Admitting Unavailable Paintsil, Barnwell Attending Unavailable Agyepong Urban Admitting Unavailable Agyepong Urban Attending Unavailable Oleghe, Efewongbe Primary Care Unavailable Urban Vegas Consulting Unavailable Oleghe, Efewongbe Attending Unavailable Oleghe, Efewongbe Referring Unavailable Cora Tirado Attending Unavailable Robert, Zeke Chi Primary Care Unavailable Robert, Zeke Chi Attending Unavailable Robert, Zeke Chi Primary Care Unavailable Robert, Zeke Chi Primary Care Unavailable Angelito Abel Attending Unavailable Robert, Zeke Chi Primary Care Unavailable Abhay Hilario Attending Unavailable Robert, Zeke Chi Primary Care Unavailable Ashelfah, Ghasem Admitting Unavailable Sementi, Kala Attending Unavailable Ashelfah, Ghasem Admitting Unavailable Ashelfah, Ghasem Attending Unavailable Robert, Zeke Chi Primary Care Unavailable Ashelfah, Ghasem Consulting Unavailable Ashelfah, Ghasem Admitting Unavailable Sementi, Kala Attending Unavailable Robert, Zeke Chi Primary Care Unavailable Sementi, Kala Consulting Unavailable Oleghe, Efewongbe Attending Unavailable Oleghe, Efewongbe Referring Unavailable Robert, Zeke Chi Attending Unavailable Robert, Zeke Chi Primary Care Unavailable Robert, Zeke Chi Primary Care Unavailable Raymond Gooden Attending Unavailable Shavonne Dykes Attending Unavailable Robert, Zeke Chi Referring Unavailable Robert, Zeke Chi Primary Care Unavailable Shavonne Dykes Attending Unavailable Shavonne Dykes Referring Unavailable Robert, Zeke Chi Primary Care Unavailable Robert, Zeke Chi Primary Care Unavailable Caleb Zhou Attending Unavailable Tarun Nino BOAT CLEANER-C Attending Unavailable Robert, Zeke Chi Referring Unavailable Raymond Gooden Attending Unavailable Oleghe, Efewongbe Primary Care Unavailable Oleghe, Efewongbe Primary Care Unavailable Rigo Fowler Attending Unavailable Tarun Nino BOAT CLEANER-C Attending Unavailable Tarun Nino BOAT CLEANER-C Referring Unavailable Oleghe, Efewongbe Primary Care Unavailable Tarun Nino BOAT CLEANER-C Attending Unavailable Oleghe, Efewongbe Referring Unavailable Oleghe, Efewongbe Primary Care Unavailable Oleghe, Efewongbe Primary Care Unavailable Rigo Fowler Attending Unavailable Tarun Nino BOAT CLEANER-C Attending Unavailable Nino, Tarun BOAT CLEANER-C Referring Unavailable Oleghe, Efewongbe Primary Care Unavailable Shavonne Dykes Attending Unavailable Oleghe, Efewongbe Referring Unavailable Oleghe, Efewongbe Primary Care Unavailable Shavonne Dykes Attending Unavailable Donis Shavonne Referring Unavailable Oleghe, Efewongbe Primary Care Unavailable Shavonne Dykes Attending Unavailable Oleghe, Efewongbe Primary Care Unavailable Shavonne Dykes Attending Unavailable Donis Shavonne Referring Unavailable Oleghe, Efewongbe Primary Care Unavailable Oleghe, Efewongbe Attending Unavailable Oleghe, Efewongbe Referring Unavailable Oleghe, Efewongbe Primary Care Unavailable Shavonne Dykes Attending Unavailable Donis Shavonne Referring Unavailable Oleghe, Efewongbe Primary Care Unavailable Oleghe, Efewongbe Attending Unavailable Oleghe, Efewongbe Referring Unavailable Oleghe, Efewongbe Primary Care Unavailable Oleghe, Efewongbe Attending Unavailable Oleghe, Efewongbe Referring Unavailable Oleghe, Efewongbe Primary Care Unavailable Oleghe, Efewongbe Primary Care Unavailable Portia, Sadiq Admitting Unavailable Navjot Hassan Attending Unavailable Portia, Sadiq Admitting Unavailable Oleghe, Efewongbe Primary Care Unavailable Portia, Sadiq Consulting Unavailable Marlon Kirby Attending Unavailable Portia, Sadiq Admitting Unavailable Mario Vyas Attending Unavailable Oleghe, Efewongbe Primary Care Unavailable Jazzmine Parikh Consulting Unavailable Portia, Sadiq Admitting Unavailable Navjot Hassan Attending Unavailable Oleghe, Efewongbe Primary Care Unavailable Navjot Hassan Consulting Unavailable Yakov Mckeon Attending Unavailable Tom Roper Attending Unavailable Oleghe, Efewongbe Referring Unavailable Tarun Nino BOAT CLEANER-C Attending Unavailable Oleghe, Efewongbe Referring Unavailable Oleghe, Efewongbe Primary Care Unavailable Tarun Nino BOAT CLEANER-C Attending Unavailable Tarun Nino BOAT CLEANER-C Referring Unavailable Oleghe, Efewongbe Primary Care Unavailable Urban Russell Attending Unavailable Oleghe, Efewongbe Referring Unavailable Oleghe, Efewongbe Primary Care Unavailable Urban Russell Attending Unavailable Oleghe, Efewongbe Referring Unavailable Oleghe, Efewongbe Primary Care Unavailable Urban Russell Consulting Unavailable Tarun Nino BOAT CLEANER-C Attending Unavailable Oleghe, Efewongbe Primary Care Unavailable Oleghe, Efewongbe Consulting Unavailable Oleghe, Efewongbe Primary Care Unavailable DEVANG NAVA Attending Unavailable Tarun Nino BOAT CLEANER-C Attending Unavailable Oleghe, Efewongbe Referring Unavailable Oleghe, Efewongbe Primary Care Unavailable Tarun Nino BOAT CLEANER-C Attending Unavailable Oleghe, Efewongbe Primary Care Unavailable Oleghe, Efewongbe Consulting Unavailable Oleghe, Efewongbe Primary Care Unavailable Leonardo Fernandez Attending Unavailable Urban Russell Attending Unavailable Oleghe, Efewongbe Referring Unavailable Oleghe, Efewongbe Primary Care Unavailable Urban Russell Consulting Unavailable Oleghe, Efewongbe Primary Care Unavailable Austin Castaneda Attending Unavailable Oleghe, Efewongbe Attending Unavailable Oleghe, Efewongbe Referring Unavailable Isaías Davis Attending Unavailable Oleghe, Efewongbe Referring Unavailable Oleghe, Efewongbe Primary Care Unavailable DEVANG NAVA Attending Unavailable Nurse, Surgery Attending Unavailable Oleghe, Efewongbe Referring Unavailable Isaías Davis Attending Unavailable Isaías Davis Referring Unavailable Oleghe, Efewongbe Primary Care Unavailable Mario Vyas Attending Unavailable Mario Vyas Referring Unavailable Oleghe, Efewongbe Primary Care Unavailable Tarun Nino BOAT CLEANER-C Attending Unavailable Oleghe, Efewongbe Primary Care Unavailable Oleghe, Efewongbe Consulting Unavailable Mario Vyas Attending Unavailable Mario Vyas Referring Unavailable Oleghe, Efewongbe Primary Care Unavailable Mario Vyas Consulting Unavailable Susan, Isaías Attending Unavailable Slaby, Isaías Referring Unavailable Oleghe, Efewongbe Primary Care Unavailable Slaby, Isaías Consulting Unavailable Oleghe, Efewongbe Primary Care Unavailable Leonardo Fernandez Attending Unavailable NinoTarun BOAT CLEANER-C Attending Unavailable Oleghe, Efewongbe Referring Unavailable Slaby, Isaías Attending Unavailable Oleghe, Efewongbe Referring Unavailable Slaby, Isaías Attending Unavailable Slaby, Isaías Referring Unavailable Oleghe, Efewongbe Primary Care Unavailable Slaby, Isaías Consulting Unavailable Oleghe, Efewongbe Primary Care Unavailable Navjot Tejeda Attending Unavailable Nino, Tarun BOAT CLEANER-C Attending Unavailable Oleghe, Efewongbe Referring Unavailable Nino, Tarun BOAT CLEANER-C Attending Unavailable Oleghe, Efewongbe Primary Care Unavailable Oleghe, Efewongbe Consulting Unavailable KAITLIN SANDERSON Attending Unavailable KAITLIN SANDERSON Referring Unavailable Shira Hylton Attending Unavailable Shira Hylton Attending Unavailable PROBLEMS PROBLEMS DATE TYPE CONDITION / CODE ATTENDING STATUS SOURCE 11/09/2018 Unknown E66.9 - Obesity, Nino, Tarun Active [place] unspecified / [facility] E66.9(ICD-10) Hospital Repository 09/28/2018 Unknown R19.7 - Diarrhea, Nino, Tarun Active [facility] unspecified / [facility] R19.7(ICD-10) Hospital Repository 09/28/2018 Unknown R10.9 - Unspecified Nino, Tarun Active [facility] abdominal pain / [facility] Community R10.9(ICD-10) Hospital Repository 09/15/2018 Unknown I10 - Essential Nino, Tarun Active [place] (primary) [facility] Community hypertension / Hospital I10(ICD-10) Repository 09/09/2018 Unknown G89.18 - Other acute Isaías Davis Active [place] postprocedural pain Community / G89.18(ICD-10) Hospital Repository 09/09/2018 Unknown L98.8 - Other Isaías Davis Active [facility] specified disorders Community of the skin and Hospital subcutaneous tissue Repository / L98.8(ICD-10) 07/14/2018 Unknown E78.5 - Oleghe, Active [place] Hyperlipidemia, Efewongbe Community unspecified / Hospital E78.5(ICD-10) Repository 07/14/2018 Unknown E61.1 - Iron Oleghe, Active [place] deficiency / Efewongbe [facility] E61.1(ICD-10) Hospital Repository 07/14/2018 Unknown Z12.11 - Encounter Olehailey, Active [place] for screening for [facility] malignant neoplasm Hospital of colon / Repository Z12.11(ICD-10) 06/23/2018 Unknown 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 Shavonne [facility] osteoarthritis, Hospital right knee / Repository M17.11(ICD-10) 02/02/2018 Unknown R56.9 - Unspecified Chicorelli, Active [place] convulsions / Shavonne [facility] R56.9(ICD-10) Hospital Repository 01/06/2018 Unknown G89.29 - Other Nino, Tarun Active [facility] chronic pain / [facility] G89.29(ICD-10) Hospital Repository 01/06/2018 Unknown M06.9 - Rheumatoid Nino, Tarun Active [place] arthritis, [facility] Community unspecified / Hospital M06.9(ICD-10) Repository 01/06/2018 Unknown Z78.0 - Asymptomatic NinoTarun gillette Active [place] menopausal state / [facility] Community Z78.0(ICD-10) Hospital Repository 01/06/2018 Unknown M85.80 - Other NinoTarun gillette Active [facility] specified disorders [facility] Community of bone density and Hospital structure, Repository unspecified site / M85.80(ICD-10) 12/31/2017 Unknown M54.5 - Low back Chicorelli, Active [facility] pain / M54.5(ICD-10) [facility] Repository 12/28/2017 Unknown N17.9 - Acute kidney Robert, Zeke Chi Active [place] failure, unspecified Community / N17.9(ICD-10) Hospital Repository 12/10/2017 Unknown E55.9 - Vitamin D Robert, Zeke Chi Active [place] deficiency, Community unspecified / Hospital E55.9(ICD-10) Repository 11/26/2017 Unknown Z79.899 - Other long Astreika, Vera Active [facility] term (current) drug Community therapy / Hospital Z79.899(ICD-10) Repository 11/23/2017 Admitting Unknown / Warner, Active [facility] Medical diagnosis UNK(Unknown) [facility] Repository PROCEDURES PROCEDURES No Procedure Records FoundRESULTS RESULTS INTERNAL MEDICINE Observed: 10/27/2018 Status: F Source: [place] OFFICE VISIT 3:05 PM [facility] REPOSITORY [facility] [address] [place] [address] [place] [address] OFFICE VISIT Date of Service: 10/26/18 MR#: [id number] Acct: [id number] Name: GIOVANA POWELL Rep #: [id number] : 1950 Provider: Esperanza Baird MD Age/Sex: 68/F Location: [facility] Status: Signed Intake Vital Signs10/26/18 Body Mass Index (BMI) 31.4 10/26/18 Height 5 ft 1.5 in 10/26/18 Weight: 163 lb 10/26/18 Body Mass Index (BMI) 30.2 10/26/18 Blood Pressure 141/93 H Intake Visit Reasons: 2 M FU Chief Complaint: FU HYPTN- Allergies iloperidone [From Afua] Allergy (Verified 10/26/18 15:04) Other lurasidone [From Latuda] Allergy (Verified 10/26/18 15:04) Other paliperidone [From Invega] Allergy (Verified 10/26/18 15:04) increased psychiatric symptoms trazodone Allergy (Verified 10/26/18 15:04) Other theophylline Adverse Reaction (Verified 10/26/18 15:04) Other SLOBID Adverse Reaction (Uncoded 10/26/18 15:04) Other Medications Pravastatin [Pravachol] 40 mg PO QHS 12/18/17 [History Confirmed 10/26/18] Buprenorphine HCl/Naloxone HCl [Suboxone 8 mg-2 mg Sl Film] 2 ea SL DAILY 12/24/17 [History Confirmed 10/26/18] ferrous sulfate 325 mg (65 mg iron) tablet 325 mg PO DAILY #90 tab 07/14/18 [Rx Confirmed 10/26/18] miconazole nitrate 2 % topical powder 1 applic TOPICAL BID #71 g 07/14/18 [Rx Confirmed 10/26/18] albuterol sulfate HFA 90 mcg/actuation aerosol inhaler 1 puff INHALATION Q4H PRN PRN #8.5 g 09/07/18 [Rx Confirmed 10/26/18] divalproex ER 250 mg tablet,extended release 24 hr 500 mg PO BID #120 tab 09/07/18 [Rx Confirmed 10/26/18] dextromethorphan-guaifenesin ER 60 mg-1,200 mg tab,extend release,12hr 1 tab PO Q12H PRN #20 tab 09/15/18 [Rx Confirmed 10/26/18] lisinopril 40 mg tablet 40 mg PO DAILY #90 tab 09/15/18 [Rx Confirmed 10/26/18] calcium carbonate 600 mg calcium (1,500 mg) tablet 600 mg PO BID #60 tab 09/22/18 [Rx Confirmed 10/26/18] sennosides 8.6 mg-docusate sodium 50 mg tablet 1 tab PO BID PRN #60 tab 09/22/18 [Rx Confirmed 10/26/18] metoprolol tartrate 25 mg tablet 25 mg PO BID #60 tab 09/28/18 [Rx Confirmed 10/26/18] disposable panty #100 ea 10/07/18 [Rx Confirmed 10/26/18] dicyclomine 10 mg capsule 20 mg PO 4X/DAY #30 cap 10/26/18 [Rx Confirmed 10/26/18] famotidine 20 mg tablet 20 mg PO DAILY #90 tab 10/26/18 [Rx Confirmed 10/26/18] [facility] Medical History History of skin cancer (Resolved) Dissociative identity disorder (Chronic) COPD (chronic obstructive pulmonary disease) (Acute) History of UTI (Acute) Kidney failure (Acute) Multiple personalities (Chronic) Panic attacks (Chronic) H/O: hysterectomy (Inactive) Surgical History History of 3 sections (Acute) History of cholecystectomy (Acute) History of colonoscopy (Acute) History of hernia repair (Acute) H/O hernia repair (Inactive) History of (Inactive) Family History Brother Colon cancer Lung cancer Aunt Obesity Sister Obesity Mother Rheumatoid arthritis Father Alzheimer disease Brother Alzheimer disease Social History Smoking Status: Former smoker how long ago did patient quit smokin alcohol intake: never substance use type: does not use HPI HPI Chief Complaint: FU HYPTN- Details: GIOVANA POWELL, is a 68yo F who presents to the office today for follow up of her chronic medical conditions. She has no acute concerns at this time. Blood pressure in office is 141/93. Patient admits to poor compliance with her medications. ROS Const Constitutional: No chills, fatigue, fever(s), frequent falls, malaise, weakness, sleep problems or change in appetite Eyes Eyes: No blurry vision, change in vision, double vision, discharge or visual disturbances ENT ENT: No abnormal hearing, ear pain, ear pressure, tinnitus or dizziness/vertigo Resp Respiratory: No cough, shortness of breath or wheezing Cardio Cardiology: No chest pain at rest, chest pain with exertion, shortness of breath, dyspnea on exertion, generalized swelling, irregular heart rhythm, lightheadedness, orthopnea, fast heart rate or palpitations Gastro GI: No change in bowel habits, constipation, diarrhea, nausea/dyspepsia or vomiting Genitourinary-Female: No difficulty urinating, burning urination, painful urination, urinary incontinence, urinary frequency, urinary urgency, urinary hesitancy, urinary retention, Frequent nighttime urination/ nocturia, sexual problems, genital lesions, abnormal vaginal bleeding, pelvic pain, vaginal dryness, vaginal odor or Vaginal Itching Musc Musculoskeletal: No joint pain, back pain, joint swelling, limited range of motion, numbness or tingling Skin Skin: No change in skin color, itching, rash or wounds Breast Breast: No breast lump or breast pain Neuro Neurology: No frequent falls, weakness, visual disturbances, abnormal hearing, numbness, tingling, unsteady gait/balance, dizziness, loss of vision or memory loss Psych Psychiatric: No change in appetite, No memory loss, No anxiety, No depression, No Thoughts of harming yourself/Others Endo Endocrine: No fatigue, heat intolerance, increased thirst/drinking, increased hunger or increased urination Aller/Imm Allergy/Immunologic: No wheezing, itchy eyes or seasonal allergy symptoms Rigoberto/Lymp Hematologic/Lymphatic: No easy bleeding, easy bruising or enlarged lymph nodes Exam Const General: cooperative, no acute distress, well developed Orientation: alert, awake, oriented x3 [facility] Head: atraumatic, normal to inspection, normocephalic Ears: hearing grossly normal bilaterally Resp Effort AND Inspection: normal respiratory effort, able to speak in complete sentences Auscultation: Bilateral: Clear to Auscultation Cardio Rate: regular rate Rhythm: regular rhythm Heart Sounds: S1 normal, S2 normal GI Palpation: soft, no hepatosplenomegaly Neuro General: alert, awake, oriented x3, moves all extremities, CN's II-XI intact bilaterally Extrem General: no clubbing, cyanosis or edema Psych Appearance: grossly normal Mood: congruent mood Affect: normal affect Assessment AND Plan 1. Essential hypertension I10 Plan Blood pressure at 141/90 3 mmHg. She admits to poor compliance and states that she occasionally forgets to take it as prescribed. Compliance strongly encouraged. Tobacco cessation also recommended. Advised to keep a blood pressure log. Follow-up in 3 months. 2. GERD (gastroesophageal reflux disease) K21.9 Plan Chronic. Currently on famotidine. She states that she has been on other medications which she did not tolerate well. Increase famotidine to 20 mg daily. Bentyl as needed for abdominal cramps. Dietary and lifestyle modifications discussed. 3. Tobacco abuse Z72.0 Plan Smoking cessation recommended. 4. Health care maintenance Z00.00 Plan Mammogram due in February. Her last colonoscopy was in August, 5-year follow-up recommended. Status post hysterectomy. This note was generated with [employer] software. It may contain incorrect words, spelling, and punctuation that were not noted in checking the note before signing. Plan Detail Other Medications Changed: Refilled: Coding Level of Care Code Off vis,est,level 3 Diagnoses Essential hypertension I10 GERD (gastroesophageal reflux disease) K21.9 Tobacco abuse Z72.0 Health care maintenance Z00.00 10/27/18 1504 <Electronically signed by Esperanza Baird MD> Date Esperanza Baird MD Cosigner Signature: Date (if applicable) CC: INTERNAL MEDICINE Observed: 10/06/2018 Status: F Source: [place] OFFICE VISIT 4:51 PM [facility] [address] [place] [address] [place] [address] OFFICE VISIT Date of Service: 10/06/18 MR#: [id number] Acct: [id number] Name: GIOVANA POWELL Rep #: [id number] : 1950 Provider: Esperanza Baird MD Age/Sex: 68/F Location: [facility] Status: Signed Intake Vital Signs10/06/18 Body Mass Index (BMI) 31.4 10/06/18 Height 5 ft 1.5 in 10/06/18 Weight: 165 lb 10/06/18 Body Mass Index (BMI) 30.7 10/06/18 Blood Pressure 137/83 H Intake Visit Reasons: 3 M FU Chief Complaint: Post hosp x 1 week ago Is patient in pain?: No Allergies iloperidone [From Fanapt] Allergy (Verified 10/06/18 13:57) Other lurasidone [From Latuda] Allergy (Verified 10/06/18 13:57) Other paliperidone [From Invega] Allergy (Verified 10/06/18 13:57) increased psychiatric symptoms trazodone Allergy (Verified 10/06/18 13:57) Other theophylline Adverse Reaction (Verified 10/06/18 13:57) Other SLOBID Adverse Reaction (Uncoded 10/06/18 13:57) Other Medications Pravastatin [Pravachol] 40 mg PO QHS 12/18/17 [History Confirmed 10/06/18] Buprenorphine HCl/Naloxone HCl [Suboxone 8 mg-2 mg Sl Film] 2 ea SL DAILY 12/24/17 [History Confirmed 10/06/18] famotidine 10 mg tablet 10 mg PO DAILY #90 tab 06/16/18 [Rx Confirmed 10/06/18] ferrous sulfate 325 mg (65 mg iron) tablet 325 mg PO DAILY #90 tab 07/14/18 [Rx Confirmed 10/06/18] miconazole nitrate 2 % topical powder 1 applic TOPICAL BID #71 g 07/14/18 [Rx Confirmed 10/06/18] albuterol sulfate HFA 90 mcg/actuation aerosol inhaler 1 puff INHALATION Q4H PRN PRN #8.5 g 09/07/18 [Rx Confirmed 10/06/18] divalproex ER 250 mg tablet,extended release 24 hr 500 mg PO BID #120 tab 09/07/18 [Rx Confirmed 10/06/18] dextromethorphan-guaifenesin ER 60 mg-1,200 mg tab,extend release,12hr 1 tab PO Q12H PRN #20 tab 09/15/18 [Rx Confirmed 10/06/18] lisinopril 40 mg tablet 40 mg PO DAILY #90 tab 09/15/18 [Rx Confirmed 10/06/18] calcium carbonate 600 mg calcium (1,500 mg) tablet 600 mg PO BID #60 tab 09/22/18 [Rx Confirmed 10/06/18] sennosides 8.6 mg-docusate sodium 50 mg tablet 1 tab PO BID PRN #60 tab 09/22/18 [Rx Confirmed 10/06/18] metoprolol tartrate 25 mg tablet 25 mg PO BID #60 tab 09/28/18 [Rx Confirmed 10/06/18] dicyclomine 10 mg capsule 20 mg PO 4X/DAY #30 cap 10/06/18 [Rx Confirmed 10/06/18] [facility] Medical History History of skin cancer (Resolved) Dissociative identity disorder (Chronic) COPD (chronic obstructive pulmonary disease) (Acute) History of UTI (Acute) Kidney failure (Acute) Multiple personalities (Chronic) Panic attacks (Chronic) H/O: hysterectomy (Inactive) Surgical History History of 3 sections (Acute) History of cholecystectomy (Acute) History of colonoscopy (Acute) History of hernia repair (Acute) H/O hernia repair (Inactive) History of (Inactive) Family History Brother Colon cancer Lung cancer Aunt Obesity Sister Obesity Mother Rheumatoid arthritis Father Alzheimer disease Brother Alzheimer disease Social History Smoking Status: Former smoker how long ago did patient quit smokin alcohol intake: never substance use type: does not use HPI HPI Chief Complaint: Post hosp x 1 week ago Details: GIOVANA POWELL, is a 68 F who presents to the office today for follow-up of recent hospital admission. She was seen due to acute onset nausea, vomiting and watery bowel movements. Investigations done well without any significant abnormality. Consideration was for viral gastroenteritis. Symptoms have now largely resolved. Occasional abdominal cramps which respond to Bentyl. ROS Const Constitutional: No chills, fatigue, fever(s), frequent falls, malaise, sleep problems or change in appetite Eyes Eyes: No blurry vision, change in vision, double vision, discharge or visual disturbances ENT ENT: No abnormal hearing, ear pain, ear pressure, tinnitus or dizziness/vertigo Resp Respiratory: No cough, shortness of breath or wheezing Cardio Cardiology: No chest pain at rest, chest pain with exertion, shortness of breath, dyspnea on exertion, generalized swelling, irregular heart rhythm, lightheadedness, orthopnea, fast heart rate or palpitations Gastro GI: Positive for cramping; no abdominal pain, change in bowel habits, constipation, diarrhea, nausea/dyspepsia or vomiting Genitourinary-Female: No difficulty urinating, burning urination, painful urination, urinary incontinence, urinary frequency, urinary urgency, urinary hesitancy, urinary retention, Frequent nighttime urination/ nocturia, sexual problems, genital lesions, abnormal vaginal bleeding, pelvic pain, vaginal dryness, vaginal odor or Vaginal Itching Musc Musculoskeletal: No joint pain, back pain, joint swelling, limited range of motion, numbness or tingling Skin Skin: No change in skin color, itching, rash or wounds Breast Breast: No breast lump or breast pain Neuro Neurology: No frequent falls, visual disturbances, abnormal hearing, numbness, tingling, unsteady gait/balance, dizziness, loss of vision or memory loss Psych Psychiatric: No change in appetite, No memory loss, No anxiety, No depression, No Thoughts of harming yourself/Others Endo Endocrine: No fatigue, heat intolerance, increased thirst/drinking, increased hunger or increased urination Aller/Imm Allergy/Immunologic: No wheezing, itchy eyes or seasonal allergy symptoms Rigoberto/Lymp Hematologic/Lymphatic: No easy bleeding, easy bruising or enlarged lymph nodes Exam Const General: cooperative, no acute distress, well developed Orientation: alert, awake, oriented x3 [facility] Head: atraumatic, normal to inspection, normocephalic Ears: hearing grossly normal bilaterally Resp Effort AND Inspection: normal respiratory effort, able to speak in complete sentences Auscultation: Bilateral: Clear to Auscultation Cardio Rate: regular rate Rhythm: regular rhythm Heart Sounds: S1 normal, S2 normal GI Palpation: soft, no hepatosplenomegaly Neuro General: alert, awake, oriented x3, moves all extremities, CN's II-XI intact bilaterally Extrem General: no clubbing, cyanosis or edema Psych Appearance: grossly normal Mood: congruent mood Affect: normal affect Assessment AND Plan 1. Gastroenteritis K52.9 Plan Most likely viral. Workup during hospital stay without any significant concerns. Symptoms have largely resolved. Rest, increased fluid intake recommended. Advised to call with any questions or concerns. 2. Abdominal cramps R10.9 Plan Secondary to above. Improved. Still requires occasional Bentyl. Prescription sent. Advised to call with concerns or worsening symptoms. This note was generated with [employer] dictation software. It may contain incorrect words, spelling, and punctuation that were not noted in checking the note before signing. Plan Detail Other Medications Refilled: Coding Level of Care Code Off vis,est,level 3 Diagnoses Gastroenteritis K52.9 Abdominal cramps R10.9 10/06/18 1651 <Electronically signed by Esperanza Baird MD> Date Esperanza Baird MD Cosigner Signature: Date (if applicable) CC: DISCHARGE SUMMARY Observed: 09/29/2018 Status: F Source: [place] 12:22 PM [facility] [place] [facility] Medical Records Department [address] [place] [address] Discharge Summary 09/29/18 1106 MR#: [id number] Acct: [id number] Name: GIOVANA POWELL Rep #: [id number] : 1950 68 From: Lucia Marie MD PCP: Esperanza Baird MD Status: ADM [facility] Y Location: [place] [address] Discharge Date and Diagnosis - Problem List Patient Problems: Active and Suspected Problems (Last Reviewed 09/29/18 @ 05:45 by Urban Vegas MD) Acute infective gastroenteritis (Suspected) Date of Admission: 09/29/18 Date of Discharge: 09/29/18 - Primary Discharge Diagnosis Active and Suspected Problems (Last Reviewed 09/29/18 @ 05:45 by Urban Vegas MD) Acute infective gastroenteritis (Suspected) - Secondary Discharge Diagnosis Chronic Problems (Last Reviewed 09/29/18 @ 05:45 by Urban Vegas MD) 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 Benign neoplasm of skin of cheek (Chronic) 5 mm intradermal nevus right lateral cheek Basal cell carcinoma of right medial cheek (Chronic) 5 mm basal cell carcinoma right supramedial cheek Basal cell carcinoma of upper lip (Chronic) 6 mm basal cell carcinoma right upper lip by nasolabial fold Basal cell carcinoma of right forehead (Chronic) 11 mm basal cell carcinoma right medial forehead Former smoker (Chronic) Personal history of skin cancer (Chronic) Neoplasm of skin of right cheek (Chronic) 5 mm lesion right lateral cheek Neoplasm of skin of restorationist region (Chronic) 4 mm pigmented lesion right restorationist by hairline Neoplasm of skin of lip (Chronic) 6 mm lesion right upper lip by nasolabial fold Neoplasm of skin of forehead (Chronic) 11 mm lesion right medial forehead Manic depressive disorder (Chronic) Hypertension (Chronic) Tobacco abuse (Chronic) Noncompliance (Chronic) Bipolar disorder (Chronic) Opioid dependence (Chronic) COPD (chronic obstructive pulmonary disease) (Chronic) Rheumatoid arthritis (Chronic) Chronic back pain (Chronic) Osteopenia (Chronic) Hepatitis (Chronic) Hyperlipidemia (Chronic) GERD (gastroesophageal reflux disease) (Chronic) Seizure (Chronic) Thrombocytosis (Chronic) PTSD (post-traumatic stress disorder) (Chronic) Essential thrombocythemia (Chronic) Dissociative identity disorder (Chronic) Hospital Course and Treatment None Procedures: None Summary of Care Provided: The patient is a 68 year old F with past medical history of COPD, history of opioid dependence, on Suboxone, personality disorder, seizure disorder, comes in with complaints of diarrhea ongoing for 3 days. Patient said she has had a viral bronchitis and subsequently has been having multiple bowel movements. Over the last few days prior to admission, she has a bowel movement every 15 minutes. She went to see her primary care doctor who ordered a stool sample. She was on unable to produce any sample and brought her stool to the emergency department. Associated is nausea without vomiting. Patient stool sample was negative for C. difficile. Stool for enteric panel was negative. No episode of diarrhea was seen during the admission. Patient remained stable, vitals were stable. She was able to tolerate a liquid diet. She was discharged to continue with conservative management and follow-up with her primary care doctor. Patient Problems: Active and Suspected Problems (Last Reviewed 09/29/18 @ 05:45 by Urban Vegas MD) Acute infective gastroenteritis (Suspected) Subjective: On the day of discharge, patient felt improved, some mild abdominal cramps, denied any fever or chills. - Physical Exam General: Alert, Oriented x3, Cooperative, No apparent distress HEENT: Atraumatic, PERRLA, EOMI, Normocephalic Oral: Moist Mucosa Neck: Supple, No JVD, Negative Carotid Bruits Lungs: Clear to auscultation, Normal air movement Cardiovascular: Regular rate, Regular Rhythm, Normal S1, Normal S2, No murmurs Abdomen: Bowel Sounds Present, Soft, Non Tender, Non-Distended, No Hepato-splenomegaly Extremities: No edema Skin: No rashes, No breakdown Musculoskeletal: No Tenderness to Palpation of Joints or Extremities Lymphatic: No Cervical, Supraclavicular, or Inguinal Adenopathy Neurological: Cranial nerves II-XII grossly intact, Neuro grossly intact Psych/Mental Status: Normal Affect, Appropriate Vital Signs Temp Pulse Resp BP Pulse Ox 97.6 F L 85 18 156/94 H 96 09/29/18 08:25 09/29/18 10:16 09/29/18 08:25 09/29/18 08:25 09/29/18 10:50 Oxygen Delivery Method Room Air Weight: 75.4 kg Body Mass Index (BMI) 31.4 Finger Stick Blood Glucose 161 Microbiology Past 72 Hours 09/29/18 03:45 Enteric Bacteriology - Final Stool 09/29/18 03:45 C. difficile DNA Amplification - Final Stool Laboratory Tests Past 24 Hrs Discharge Diet: Light diet - advance as tolerated Discharge Activity: Return to Normal Activity Home Medications: Medications to take at Discharge Pravastatin [Pravachol] 40 mg PO QHS 12/18/17 Buprenorphine HCl/Naloxone HCl [Suboxone 8 mg-2 mg Sl Film] 2 ea SL DAILY 12/24/17 famotidine 10 mg tablet 10 mg PO DAILY #90 tab 06/16/18 ferrous sulfate 325 mg (65 mg iron) tablet 325 mg PO DAILY #90 tab 07/14/18 miconazole nitrate 2 % topical powder 1 applic TOPICAL BID #71 g 07/14/18 albuterol sulfate HFA 90 mcg/actuation aerosol inhaler 1 puff INHALATION Q4H PRN PRN #8.5 g 09/07/18 divalproex ER 250 mg tablet,extended release 24 hr 500 mg PO BID #120 tab 09/07/18 dextromethorphan-guaifenesin ER 60 mg-1,200 mg tab,extend release,12hr 1 tab PO Q12H PRN #20 tab 09/15/18 lisinopril 40 mg tablet 40 mg PO DAILY #90 tab 09/15/18 calcium carbonate 600 mg calcium (1,500 mg) tablet 600 mg PO BID #60 tab 09/22/18 sennosides 8.6 mg-docusate sodium 50 mg tablet 1 tab PO BID PRN #60 tab 09/22/18 metoprolol tartrate 25 mg tablet 25 mg PO BID #60 tab 09/28/18 Dicyclomine HCl [Bentyl] 20 mg PO 4X/DAY #30 capsule 09/29/18 Following Prescrptions Were Given to Patient: Dicyclomine HCl [Bentyl] 20 mg PO 4X/DAY #30 capsule Primary Care Physician: Esperanza Baird MD [Primary Care Provider] - Please follow up with your Primary Care Physician in: within 1-2 weeks Disposition: Home Minutes spent on discharge:: 40 Patient Condition:: Stable Medical Necessity - Tobacco Use Smoking Status: Former smoker Meaningful Use Info Meaningful Use Diagnoses (Choose all that apply): None applicable Code Visit OBSV E AND M: 36788 Observation care discharge 09/29/18 1222 <Electronically signed by Lucia Marie MD> Date Lucai Marie MD Cosigner Signature (if applicable): Date CC: Lucia Marie MD; Esperanza Baird MD Signed DISCHARGE INSTRUCTION Observed: 09/29/2018 Status: F Source: [place] 11:06 [facility] Medical Records Department [address] [facility] [place] [address] Instructions for Home/Discharge Instructions 09/29/18 0940 MR#: [id number] Acct: [id number] Name: GIOVANA POWELL Rep #: [id number] : 1950 68 From: Lucia Marie MD PCP: Esperanza Baird MD Status: ADM [facility] - Discharge Diagnoses Reason(s) for Visit for Discharge Instructions: Abdominal pain, diarrhea You will use the following diet at home:: Cardiac Your food should be the consistency of: Regular Your liquids should be the consistency of: Regular/Thin Discharge Activity: Return to Normal Activity Additional Instructions: Continue on a liquid diet for 1-2 days and advance as can be tolerated until you are on a regular textured diet. Follow-up with your primary care doctor within 2 weeks. Allergies/Adverse Reactions: Allergies iloperidone [From Fanapt] Allergy (Verified 09/28/18 13:54) Other CAUSES PT TO NOT WALK OR SPEAK lurasidone [From Latuda] Allergy (Verified 09/28/18 13:54) Other paliperidone [From Invega] Allergy (Verified 09/28/18 13:54) increased psychiatric symptoms trazodone Allergy (Verified 09/28/18 13:54) Other theophylline Adverse Reaction (Verified 09/28/18 13:54) Other SLOBID Adverse Reaction (Uncoded 09/28/18 13:54) Other Medications to take at Discharge Pravastatin [Pravachol] 40 mg PO QHS 12/18/17 Buprenorphine HCl/Naloxone HCl [Suboxone 8 mg-2 mg Sl Film] 2 ea SL DAILY 12/24/17 famotidine 10 mg tablet 10 mg PO DAILY #90 tab 06/16/18 ferrous sulfate 325 mg (65 mg iron) tablet 325 mg PO DAILY #90 tab 07/14/18 miconazole nitrate 2 % topical powder 1 applic TOPICAL BID #71 g 07/14/18 albuterol sulfate HFA 90 mcg/actuation aerosol inhaler 1 puff INHALATION Q4H PRN PRN #8.5 g 09/07/18 divalproex ER 250 mg tablet,extended release 24 hr 500 mg PO BID #120 tab 09/07/18 dextromethorphan-guaifenesin ER 60 mg-1,200 mg tab,extend release,12hr 1 tab PO Q12H PRN #20 tab 09/15/18 lisinopril 40 mg tablet 40 mg PO DAILY #90 tab 09/15/18 calcium carbonate 600 mg calcium (1,500 mg) tablet 600 mg PO BID #60 tab 09/22/18 sennosides 8.6 mg-docusate sodium 50 mg tablet 1 tab PO BID PRN #60 tab 09/22/18 metoprolol tartrate 25 mg tablet 25 mg PO BID #60 tab 09/28/18 Dicyclomine HCl [Bentyl] 20 mg PO 4X/DAY #30 capsule 09/29/18 The following prescriptions were given: Dicyclomine HCl [Bentyl] 20 mg PO 4X/DAY #30 capsule Primary Care Physician: Esperanza Baird MD [Primary Care Provider] - Please follow up with your Primary Care Physician in: within 1-2 weeks Test Results: Test results from this visit will be discussed in further detail at your follow-up appointment, if applicable. Proposed Discharge Date: 09/29/18 09/29/18 1106 <Electronically signed by Lucia Marie MD> Date Lucia Marie MD CC: Esperanza Baird MD HISTORY AND PHYSICAL Observed: 09/29/2018 Status: F Source: [place] EXAM 5:50 AM [facility] [place] [facility] Medical Records Department [address] [place] [id number] History and Physical 09/29/18 0435 MR#: [id number] Acct: [id number] Name: GIOVANA POWELL Rep #: [id number] : 1950 68 From: Urban Vegas MD PCP: Esperanza Baird MD Status: ADM AMERICO Y Location: [place] [address] Problem List (1) Acute infective gastroenteritis Status: Suspected (2) Thrombocytosis Status: Chronic (3) History of skin cancer Status: Resolved (4) Dissociative identity disorder Status: Chronic History of Present Illness Date of Admission: 09/29/18 Chief Complaint: Abdominal pain and diarrhea The patient is a 68 year old F with a significant history of COPD; former opioid multiple personality disorder; seizure disorder; basal cell carcinoma status post multiple surgeries on her face who presented because of diarrhea that started about 3 days prior to admission. Patient reports that she has been having a bowel movement about every 15 minutes. She saw her PCP who ordered a stool sample. However because she was not able to produce any stool at that time she brought her stool to the emergency department. Associated with her symptoms is nausea without vomiting; and sitophobia.. Further patient has abdominal cramps that started a day before her diarrhea started. He denies any relieving factors to her pain. She reports that food aggravates her pain. However she states that she has not had any food after her symptoms started. She reports an unremarkable routine colonoscopy last month. Patient reports that recently she has been exposed to antibiotics. She reported that the last time she had food was about 4 days ago. At that time she had she had food from [employer]. Her abdominal pain began at that time. She reports chills and a home temperature of 99. She reports that typically her temperature is 97.0. 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 Benign neoplasm of skin of cheek (Chronic) 5 mm intradermal nevus right lateral cheek Basal cell carcinoma of right medial cheek (Chronic) 5 mm basal cell carcinoma right supramedial cheek Basal cell carcinoma of upper lip (Chronic) 6 mm basal cell carcinoma right upper lip by nasolabial fold Basal cell carcinoma of right forehead (Chronic) 11 mm basal cell carcinoma right medial forehead Former smoker (Chronic) Personal history of skin cancer (Chronic) Neoplasm of skin of right cheek (Chronic) 5 mm lesion right lateral cheek Neoplasm of skin of restorationist region (Chronic) 4 mm pigmented lesion right restorationist by hairline Neoplasm of skin of lip (Chronic) 6 mm lesion right upper lip by nasolabial fold Neoplasm of skin of forehead (Chronic) 11 mm lesion right medial forehead Manic depressive disorder (Chronic) Hypertension (Chronic) Tobacco abuse (Chronic) Noncompliance (Chronic) Bipolar disorder (Chronic) Opioid dependence (Chronic) COPD (chronic obstructive pulmonary disease) (Chronic) Rheumatoid arthritis (Chronic) Chronic back pain (Chronic) Osteopenia (Chronic) Hepatitis (Chronic) Hyperlipidemia (Chronic) GERD (gastroesophageal reflux disease) (Chronic) Seizure (Chronic) Thrombocytosis (Chronic) PTSD (post-traumatic stress disorder) (Chronic) Essential thrombocythemia (Chronic) Dissociative identity disorder (Chronic) Medical History: Medical History (Last Reviewed 09/29/18 @ 05:45 by Urban Vegas MD) History of skin cancer (Resolved) Z85.828 Dissociative identity disorder (Chronic) F44.81 COPD (chronic obstructive pulmonary disease) J44.9 History of UTI Z87.440 Kidney failure N19 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 Panic attacks F41.0 H/O: hysterectomy Z90.710 1997 Allergies iloperidone [From Fanapt] Allergy (Verified 09/28/18 13:54) Other CAUSES PT TO NOT WALK OR SPEAK lurasidone [From Latuda] Allergy (Verified 09/28/18 13:54) Other paliperidone [From Invega] Allergy (Verified 09/28/18 13:54) increased psychiatric symptoms trazodone Allergy (Verified 09/28/18 13:54) Other theophylline Adverse Reaction (Verified 09/28/18 13:54) Other SLOBID Adverse Reaction (Uncoded 09/28/18 13:54) Other Home Medications: Ambulatory Orders Medication Instructions Recorded Pravastatin [Pravachol] 40 mg PO QHS 12/18/17 Buprenorphine HCl/Naloxone HCl 1 ea SL BID 12/24/17 [Suboxone 8 mg-2 mg Sl Film] famotidine 10 mg tablet 10 mg PO DAILY #90 tab 06/16/18 Surgical History: Surgical History (Last Reviewed 09/29/18 @ 05:45 by Urban Vegas MD) History of 3 sections Z87.59 History of cholecystectomy Z90.49 03/05 History of colonoscopy Z98.890 09/05/18 History of hernia repair Z98.890, Z87.19 H/O hernia repair Z98.890, Z87.19 History of Z98.891 1980 1980 1985 Surgical History: hysterectomy, - - C-sections - 3, abdominal hysterectomy, hernia repair with mesh?. Lives: Alone Smoking Status: Former smoker - *Family History Maternal Family History: Family History (Last Updated 09/29/18 @ 05:47 by Urban Vegas MD) Brother Colon cancer Lung cancer Aunt Obesity Sister Obesity Mother Rheumatoid arthritis Father Alzheimer disease Brother Alzheimer disease History Items: No pertinent history Paternal Family History: Family History (Last Updated 09/29/18 @ 05:47 by Urban Vegas MD) Brother Colon cancer Lung cancer Aunt Obesity Sister Obesity Mother Rheumatoid arthritis Father Alzheimer disease Brother Alzheimer disease History Items: No pertinent history Sibling Family History: Family History (Last Updated 09/29/18 @ 05:47 by Urban Vegas MD) Brother Colon cancer Lung cancer Aunt Obesity Sister Obesity Mother Rheumatoid arthritis Father Alzheimer disease Brother Alzheimer disease History Items: Cancer Review of Systems Constitutional: Reports: Chills HEENT: Denies: Head Aches, Sinus Congestion, Sinus Drainage Cardiovascular: Denies: Chest Pain, Palpitations Respiratory: Denies: Cough, Shortness of breath at rest, Sputum production Gastrointestinal: Reports: Abdominal Pain, Diarrhea, Nausea. Denies: Vomiting Genitourinary: Denies: Dysuria Musculoskeletal: Denies: Joint Pain, Joint Tenderness Skin: Denies: Rash, Wounds Neurological: Denies: Numbness, Tingling, Focal weakness Psychiatric: Denies: Anxiety, Depression, Homicidal Ideations, Suicidal Ideations Hematologic/ Lymphatic: Denies: Easy Bruising, Easy Bleeding VTE Information - Inpt Only VTE Present on Admission: No VTE Mechan Device Prophylaxis: None VTE Pharm Prophylaxis ordered?: Yes Patient Problems: Active and Suspected Problems (Last Reviewed 09/28/18 @ 13:53 by Aurea Wlalace) Acute infective gastroenteritis (Suspected) - Physical Exam General: Alert, Oriented x3, Cooperative HEENT: Atraumatic, PERRLA, EOMI, Normocephalic Neck: Supple, No JVD, Negative Carotid Bruits Lungs: Clear to auscultation, Normal air movement Cardiovascular: Regular rate, No murmurs Abdomen: Bowel Sounds Present - hyperactive bowel sounds, Soft, Tender - mild Extremities: No edema, Capillary Refill Less than 3 Seconds Skin: No rashes, No breakdown Musculoskeletal: No Tenderness to Palpation of Joints or Extremities Neurological: Neuro grossly intact Psych/Mental Status: Normal Affect, Appropriate Vital Signs Temp Pulse Resp BP Pulse Ox 97.9 F 97 18 163/109 H 94 09/29/18 03:25 09/29/18 03:25 09/29/18 03:25 09/29/18 03:25 09/29/18 03:25 Oxygen Delivery Method Room Air Weight: 75.4 kg Body Mass Index (BMI) 31.4 Finger Stick Blood Glucose 161 Laboratory Tests Past 24 Hrs WBC 9.1 RBC 4.35 Hgb 13.4 Hct 40.6 MCV 93.3 MCH 30.8 MCHC 33.0 Assessment/Plan All Active Problems (Last Reviewed 09/28/18 @ 13:53 by Aurea Wallace) Linnea (Acute) Vitamin D deficiency (Acute) Transaminitis (Acute) Cholecystitis (Acute) Obstructive jaundice (Acute) Intertriginous dermatitis associated with moisture (Acute) History of skin cancer (Resolved) YANE (acute kidney injury) (Resolved) Dehydration (Resolved) Delirium (Resolved) Osteoarthritis (Resolved) Pneumonia (Resolved) The patient is a 68 year old F with a significant history of COPD; former opioid abuse; multiple personality disorder; seizure disorder; basal cell carcinoma status post multiple surgeries on her face who presented with diarrhea; nausea and abdominal cramping consistent with acute gastroenteritis. Acute gastroenteritis Differential diagnosis includes viral gastroenteritis or bacterial gastroenteritis. Less likely parasitic since her symptoms began 3-4 days ago. Patient BUN is elevated. Her BUN about a month ago was 12- 14. On admission her BUN was 25. Her sodium is high normal at 143. Elevated BUN and sodium is likely from dehydration from diarrhea. Will start patient on LR with 40 mEq of potassium going at 100 MLS per hour We will start patient's on ciprofloxacin and Flagyl for possible bacteria gastroenteritis especially as patient reports that her bowels are moving every 15 minutes; low-grade fever and chills.. Supportive treatment with IV antiemetics Enteric stool pathogen and C. difficile were ordered for the emergency department.; Results are pending. Giardia stool antigen and O AND P ordered. Bentyl IM for abdominal pain COPD Stable Albuterol as needed continued. Hypertension On admission blood pressure was not within goal. She reported that recently her lisinopril was increased to 40 mg daily; will continue lisinopril at 40 mg daily. She reported recently her metoprolol was increased from once daily to twice daily.; We will continue metoprolol twice daily. However she reports not taking her blood pressure medication because of nausea. We will add as needed Hydralazine Drug abuse Patient is in recovery. She attends 180. No narcotics at this time. Suboxone continued. GERD Famotidine continued. 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 Intertrigo Miconazole nitrate to under breasts and abdominal folds continue Hyperlipidemia Will hold pravachol since patient is nauseous. Thrombocytosis Chronic DVT prophylaxis Lovenox ordered. Code Visit OBSV E AND M: [id number] Initial observation care L3 09/29/18 0550 <Electronically signed by Urban Vegas MD> Date [facility] Signature: Date (if applicable) CC: Esperanza Baird MD; Urban Vegas MD Signed EMERGENCY DEPARTMENT Observed: 09/29/2018 Status: F Source: [place] SUMMARY 5:04 AM [facility] REPOSITORY [facility] Medical Records Department [address] [place] [address] Emergency Department Summary 09/29/18 0345 MR#: [id number] Acct: [id number] Name: GIOVANA POWELL Rep #: [id number] : 1950 68 From: Lillie Pantoja MD PCP: Esperanza Baird MD Status: REG ER - ER Visit Summary Date of Service: 09/29/18 Chief Complaint: Diarrhea History of Present Illness: The patient is a 68 F presenting with diarrhea x 2 days. She states she is now having diarrhea every 15 minutes. She saw her primary care physician and stool studies were ordered. She was unable to give a stool sample at that time. She brought in the stool sample with her. She has had no blood in her stool. She complains of frequent diarrhea. She was on an unknown antibiotic after a colonoscopy in August. She states her colonoscopy was normal. Denies nausea or vomiting. She has mild abdominal cramping. Denies fever. Physical Examination: Vitals are stable. Patient is afebrile. Alert no acute distress. HEENT exam is unremarkable. Neck is supple. Lungs are clear and equal bilaterally. Heart is regular rate and rhythm. Abdomen is soft nontender nondistended. No guarding or rebound. Extremities are unremarkable. Skin is warm and dry. Remainder of exam is unremarkable. Emergency Department Course and Treatment: Patient was given IV fluids. CBC, chemistries are unremarkable. Patient has had several episodes of diarrhea in the emergency department. C. difficile and stool studies are pending. Patient does not feel that she can go home. Will discuss with hospitalist for observation. Disposition: Observation Impression: Diarrhea This note was generated with [employer] dictation software. It may contain incorrect words, spelling, and punctuation that were not noted in review of the chart prior to signing ED Disposition - Plan for ED Patient: Chief Complaint: Diarrhea Referrals: Esperanza Baird MD [Primary Care Provider] - What to do if you have Problems For any increased pain, shortness of breath, bleeding, nausea or vomiting, chest pain, or any unexpected problems, contact your Primary Care Provider. Call [facility] ([phone]) or report to the closest Emergency Room. Call 911 if necessary. 09/29/18 0504 <Electronically signed by Lillie Pantoja MD> Date Lillie Pantoja MD Cosigner Signature (If Indicated): Date CC: Esperanza Baird MD Observed: 09/29/2018 Status: F Source: [place] CDIFF (MOLECULAR) 3:45 AM [facility] REPOSITORY Is the patient receiving laxatives? N New/unexplained onset of 3 or more stools in past 24 hrs? Y Order Date: 09/29/18 Cdiff-Molecular Normal Reference Range = Negative C. Diff DNA Negative- No toxigenic C. Diff DNA Detected NAAT METHOD Testing was performed using nucleic acid amplification Performed By: #### M100.6796 #### [facility] [place], [address] Observed: 09/29/2018 Status: F Source: [place] ENTERIC PATHOGEN 3:45 AM [facility] PANEL STOOL REPOSITORY Order Date: 09/29/18 Has pt arrived? Y EP PANEL STOOL Not detected for Campylobacter group, Salmonella species, Shigella species, Vibrio Group, Yersinia enterocolitica, EHEC (Shiga Toxin 1, Shiga Toxin 2), Norovirus Gl/Gll, and Rotavirus A. Other common stool pathogens are not detected on this panel include: Aeromonas/Plesiomonas or parasites. Order testing for these organisms separately if suspected. This is an amplified DNA test which makes it both specific and sensitive. Normal Reference Range = Not Detected CAMPYLOBACTER Not Detected Salmonella Not Detected Shigella sp. Not Detected Shiga Toxin Not Detected Yersinia Not Detected VIBRIO Not Detected Norovirus Not Detected Rotavirus Not Detected Performed By: #### M100.637 #### [facility] [address] [place], [address] GIARDIA LAMBLIA, Collected: 09/29/2018 Status: F Source: [place] STOOL EIA 3:45 [facility] [place] CODE TESTS RESULT OUT OF RANGE REFERENCE UNITS LAB L7400.3300 Normal Giardia Stool Result Comment: TEST RESULT LIMITS Giardia lamblia Ag, EIA Negative Negative TESTING PERFORMED AT [facility]. ORIGINAL REPORT ON FILE IN LAB CONTAINS ADDITIONAL TEST SITE INFORMATION. Performed By: #### L7400.3300 #### [facility] (refer to report for specific site) refer to report for address and phone number Observed: 09/29/2018 Status: F Source: [place] OVA AND PARASITES 3:45 [facility] [place] O + P OVA AND PARASITES EXAM, ROUTINE These results were obtained using wet preparation(s) and trichrome stained smear. This test does not include testing for Crytosporidium parvum, Cyclospora, or Microsporidia. [facility]. ORIGINAL REPORT ON FILE IN LAB CONTAINS ADDITIONAL TEST SITE INFORMATION. Ova/Parasite Exam NO OVA, CYSTS, OR PARASITES FOUND. Performed By: #### M600.5000 #### [facility] [place], [address] CBC W/DIFF, AUTOMATED Collected: 09/29/2018 Status: F Source: [place] 3:36 AM [facility] REPOSITORY TYPE CODE TESTS RESULT OUT OF RANGE REFERENCE UNITS LAB L100.1000 4.4-11.0 K/mm3 Normal WBC 9.1 LAB L100.1200 4.2-5.4 M/mm3 Normal RBC 4.35 LAB L100.1300 12.0-15.0 g/dl Normal HGB 13.4 LAB L100.1400 37-47 % Normal HCT 40.6 LAB L100.1500 81-99 fL Normal MCV 93.3 LAB L100.1600 27.0-32.0 pg Normal MCH 30.8 LAB L100.1700 32-36 g/gl Normal MCHC 33.0 LAB L100.1810 11.6-14.6 % Normal RDW CV 14.1 LAB L100.1820 35.1-43.9 fl High RDW SD 46.4 LAB L100.1900 150-450 K/mm3 High PLT 508 LAB L100.2000 6.2-12.0 fl Normal MPV 9.8 LAB L100.2100 47-70 % Normal NEUT% 60.5 LAB L100.2200 19-41 % Normal LY% 23.5 LAB L100.2300 0-10 % High MONO% 12.1 LAB L100.2400 0-5 % Normal EO% 2.8 LAB L100.2500 0-1 % Normal BASO% 0.4 LAB L100.2550 0.0-0.9 % Normal IM GRAN % 0.700 Result Comment: IG% - Immature Granulocytes (promyelocytes, myelocytes and metamyelocytes) > 1% indicates that a LEFT SHIFT is Present. LAB L100.2620 2.0-7.7 X10 3/uL Normal Absolute Neut 5.5 LAB L100.2720 0.83-4.51 X10 3/ul Normal Absolute Lymph 2.13 Performed By: #### L100.0100 #### [facility] [address] [place], [address] BASIC METABOLIC Collected: 09/29/2018 Status: F Source: [place] PROFILE (BMP) 3:36 AM [facility] REPOSITORY TYPE CODE TESTS RESULT OUT OF RANGE REFERENCE UNITS LAB L501.0100 74-106 mg/dL Normal GLU 99 Result Comment: Please note revised GLUCOSE reference range effective 2017. LAB L501.1000 7-18 mg/dL High BUN 25 LAB L501.1100 0.55-1.02 mg/dL Normal CREAT,SERUM 0.83 Result Comment: The validity of the calculated GFR AND GFRAA in patients over 70 years has not been determined. Clinical correlation is essential. LAB L501.1110 >60 mL/min Normal EST GFR 73 Result Comment: Non- GFR Calc LAB L501.1115 >60 mL/min Normal EST GFR - AA 88 Result Comment: GFR Calc LAB L501.1255 ml/min Normal Estimated CRCL 50.31 LAB L501.1300 10-20 RATIO High BUN/CRE 30.1 LAB L501.2200 8.5-10 mg/dL Normal .1 CA 8.6 LAB L501.5300 136-14 mmol/L Normal 5 NA 143 LAB L501.5600 3.5-5. mmol/L Normal 1 K 3.9 LAB L501.5900 98-107 mmol/L Normal CL 106 LAB L501.6100 21.0-3 mmol/L Normal 2.0 CO2 30.0 LAB L501.6200 5-15 Normal GAP 7 Performed By: #### L500.2500 #### [facility] [address] [place], [address] INTERNAL MEDICINE Observed: 09/28/2018 Status: F Source: [place] OFFICE VISIT 4:42 PM [facility] REPOSITORY [facility] [address] [place] [address] OFFICE VISIT Date of Service: 09/28/18 MR#: [id number] Acct: [id number] Name: GIOVANA POWELL Rep #: [id number] : 1950 Provider: Tarun Nino NP Age/Sex: 68/F Location: [facility] Status: Signed Intake Vital Signs09/28/18 Body Mass Index (BMI) 31.6 Intake Visit Reasons: poss C-Diff Chief Complaint: Diarrhea - thinks has C Diff Is patient in pain?: No Allergies iloperidone [From Fanapt] Allergy (Verified 09/28/18 13:54) Other lurasidone [From Latuda] Allergy (Verified 09/28/18 13:54) Other paliperidone [From Invega] Allergy (Verified 09/28/18 13:54) increased psychiatric symptoms trazodone Allergy (Verified 09/28/18 13:54) Other theophylline Adverse Reaction (Verified 09/28/18 13:54) Other SLOBID Adverse Reaction (Uncoded 09/28/18 13:54) Other Medications Pravastatin [Pravachol] 40 mg PO QHS 12/18/17 [History Confirmed 09/28/18] Buprenorphine HCl/Naloxone HCl [Suboxone 8 mg-2 mg Sl Film] 1 ea SL BID 12/24/17 [History Confirmed 09/28/18] famotidine 10 mg tablet 10 mg PO DAILY #90 tab 06/16/18 [Rx Confirmed 09/28/18] ferrous sulfate 325 mg (65 mg iron) tablet 325 mg PO DAILY #90 tab 07/14/18 [Rx Confirmed 09/28/18] miconazole nitrate 2 % topical powder 1 applic TOPICAL BID #71 g 07/14/18 [Rx Confirmed 09/28/18] bisacodyl 5 mg tablet,delayed release 20 mg PO ONCE #4 tab 08/09/18 [Rx Confirmed 09/28/18] polyethylene glycol 3350 17 gram/dose oral powder See Rx Instructions PO .COMPLEX #238 g 08/09/18 [Rx Confirmed 09/28/18] walker See Dose Instructions .ROUTE .MEDSUPPLY #1 ea 08/19/18 [Rx Confirmed 09/28/18] Lactobacillus Acidophilus/Fos [Acidophilus Probiotic Tablet] 1 ea PO BID #10 tab 08/31/18 [Rx Confirmed 09/28/18] albuterol sulfate HFA 90 mcg/actuation aerosol inhaler 1 puff INHALATION Q4H PRN PRN #8.5 g 09/07/18 [Rx Confirmed 09/28/18] blood pressure monitor kit See Dose Instructions .ROUTE .MEDSUPPLY #1 ea 09/07/18 [Rx Confirmed 09/28/18] divalproex ER 250 mg tablet,extended release 24 hr 500 mg PO BID #120 tab 09/07/18 [Rx Confirmed 09/28/18] incontinence pad, liner, disposable See Dose Instructions .ROUTE .MEDSUPPLY #200 ea 09/07/18 [Rx Confirmed 09/28/18] shower chair #1 ea 09/07/18 [Rx Confirmed 09/28/18] dextromethorphan-guaifenesin ER 60 mg-1,200 mg tab,extend release,12hr 1 tab PO Q12H PRN #20 tab 09/15/18 [Rx Confirmed 09/28/18] lisinopril 40 mg tablet 40 mg PO DAILY #90 tab 09/15/18 [Rx Confirmed 09/28/18] calcium carbonate 600 mg calcium (1,500 mg) tablet 600 mg PO BID #60 tab 09/22/18 [Rx Confirmed 09/28/18] sennosides 8.6 mg-docusate sodium 50 mg tablet 1 tab PO BID PRN #60 tab 09/22/18 [Rx Confirmed 09/28/18] metoprolol tartrate 25 mg tablet 25 mg PO BID #60 tab 09/28/18 [Rx Confirmed 09/28/18] PFSH Medical History History of skin cancer (Resolved) Dissociative identity disorder (Chronic) COPD (chronic obstructive pulmonary disease) (Acute) History of UTI (Acute) Kidney failure (Acute) Multiple personalities (Chronic) Panic attacks (Chronic) H/O: hysterectomy (Inactive) Surgical History History of cholecystectomy (Acute) History of colonoscopy (Acute) History of 3 sections (Acute) History of hernia repair (Acute) H/O hernia repair (Inactive) History of (Inactive) Family History Brother Colon cancer Aunt Obesity Sister Obesity Mother Rheumatoid arthritis Social History Smoking Status: Current some day smoker how long ago did patient quit smokin alcohol intake: never substance use type: does not use HPI HPI Chief Complaint: Diarrhea - thinks has C Diff Details: GIOVANA POWELL, is a 68 F who presents to the office today for an acute visit of diarrhea. She has a past medical history as listed above. The patient states that her symptoms of diarrhea started approximately 3 days ago and she is concerned that she has C. difficile. She states that she was having watery loose stools every 15 minutes for the last 3 days, however they have no now slowed down and improved. He is concerned about C. difficile as she was recently on clindamycin. She does note that she has intermittent abdominal pain as well. She notes due to the diarrhea, she has not taken any of her medications and she has not taken her blood pressure medications today. She denies any blood in her stool. She does note that her stool is watery green and mucus. She denies any suspicious food intake, though does state that she recently ate a turkey that she cooked at home. She otherwise denies any fever, chills, nausea, vomiting, shortness of breath, chest pain or pressure, syncope or presyncopal episodes ROS Const Constitutional: Positive for change in appetite; no chills, fatigue, fever(s), frequent falls, malaise, weakness or sleep problems Eyes Eyes: No blurry vision, change in vision, double vision, discharge or visual disturbances ENT ENT: No abnormal hearing, ear pain, ear pressure, tinnitus or dizziness/vertigo Resp Respiratory: No cough, shortness of breath or wheezing Cardio Cardiology: No chest pain at rest, chest pain with exertion, shortness of breath, dyspnea on exertion, generalized swelling, irregular heart rhythm, lightheadedness, orthopnea, fast heart rate or palpitations Gastro GI: Positive for abdominal pain, diarrhea and change in stool character; no change in bowel habits, constipation, nausea/dyspepsia or vomiting Genitourinary-Female: No difficulty urinating, burning urination, painful urination, urinary incontinence, urinary frequency, urinary urgency, urinary hesitancy, urinary retention, Frequent nighttime urination/ nocturia, sexual problems, genital lesions, abnormal vaginal bleeding, pelvic pain, vaginal dryness, vaginal odor or Vaginal Itching Musc Musculoskeletal: No joint pain, back pain, joint swelling, limited range of motion, numbness or tingling Skin Skin: No change in skin color, itching, rash or wounds Breast Breast: No breast lump or breast pain Neuro Neurology: No frequent falls, weakness, visual disturbances, abnormal hearing, numbness, tingling, unsteady gait/balance, dizziness, loss of vision or memory loss Psych Psychiatric: Positive for change in appetite, No memory loss, No anxiety, No depression, No Thoughts of harming yourself/Others Endo Endocrine: No fatigue, heat intolerance, increased thirst/drinking, increased hunger or increased urination Aller/Imm Allergy/Immunologic: No wheezing, itchy eyes or seasonal allergy symptoms Rigoberto/Lymp Hematologic/Lymphatic: No easy bleeding, easy bruising or enlarged lymph nodes Exam Const General: cooperative, comfortable, no acute distress Nutritional Appearance: average body habitus, well nourished Orientation: alert, oriented x3 Limitations: mental status not altered Resp Effort AND Inspection: normal respiratory effort, able to speak in complete sentences, normal respiratory pattern, symmetric chest movement, no audible wheezes, no cough Auscultation: Bilateral: Clear to Auscultation Cardio Palpation: normal PMI Rate: regular rate Heart Sounds: S1 normal, S2 normal, normal S1 and S2, no click, no gallops, no murmurs, no rubs GI Inspection: normal to inspection Auscultation: normal bowel sounds, no hyperactive bowel sounds, no hypoactive bowel sounds Palpation: soft, no hepatosplenomegaly, nontender (no tenderness in any quadrants to palpation) Neuro General: alert, awake, oriented x3, CN's II-XI intact bilaterally Speech: speech normal Gait: normal gait Motor: muscle tone normal throughout Psych Appearance: grossly normal Mental Status: mental status grossly normal Affect: normal affect Attitude: cooperative Thought Process: normal Assessment AND Plan Problems 1. Diarrhea R19.7 2. Abdominal pain R10.9 Plan Patient does have complaints of diarrhea and abdominal pain, given her recent antibiotic use she is concerned deeply about having C. difficile. We will check blood work and a stool panel, however highly unlikely. She is afebrile and on exam no tenderness was elicited with deep palpation of all abdominal quadrants. Discussed with patient that most likely this is viral and she should utilize conservative measures such as increasing fluid intake and rest. Discussed hand hygiene. Discussed red like symptoms requiring urgent medical attention. Patient verbalized understanding. Also discussed with patient that she should not stop taking any of her prescription medications due to the diarrhea. Patient to follow-up previously scheduled or sooner if needed Orders Orders: Medications Changed: Coding Level of Care Code Off vis,est,level 3 Diagnoses Diarrhea R19.7 Abdominal pain R10.9 09/28/18 1642 <Electronically signed by Tarun DAVIDSON> Date Tarun DAVIDSON Cosigner Signature: Date (if applicable) CC: 12 LEAD ELECTROCARDIOGRAM Observed: 09/17/2018 Status: F Source: [place] 9:26 AM [facility] Cardiovascular Services [address] [place] [address] [id number] Lead EKG 09/12/18 1144 MR#: [id number] Acct: [id number] Name: GIOVANA POWELL Rep #: [id number] : 1950 68 From: Regan Faria MD Attending Dr: Status: DEP ER Ordering Dr: Navjot Tejeda DO Date: 09/12/18 Location: ED Sex: F C Admitted: Test Reason : SOB Blood Pressure : / mmHG Vent. Rate : 074 BPM Atrial Rate : 074 BPM P-R Int : 180 ms QRS Dur : 086 ms QT Int : 394 ms P-R-T Axes : 067 075 065 degrees QTc Int : 437 ms Normal sinus rhythm Normal ECG Confirmed by REGAN FARIA MD ([id number]), editor magazine JUSTIN SAM ([id number]) on 09/14/2018 4:20:36 PM Referred By: [email or web address] Confirmed By:REGAN FARIA MD 09/14/18 1620 Date Regan Faria MD CC: Esperanza Baird MD; Navjot Tejeda DO Signed INTERNAL MEDICINE Observed: 09/16/2018 Status: F Source: [place] OFFICE VISIT 9:25 AM [facility] [address] [place] [address] OFFICE VISIT Date of Service: 09/15/18 MR#: [id number] Acct: [id number] Name: GIOVANA POWELL Rep #: [id number] : 1950 Provider: Tarun Nino NP Age/Sex: 68/F Location: [facility] Status: Signed Intake Vital Signs09/15/18 Height 5 ft 1.5 in 09/15/18 Weight: 170 lb 2 oz Intake Visit Reasons: FU ER Chief Complaint: FU er Law Clerk Required: No Accompanied by: None Is patient in pain?: Yes (muscles) Pain scale (1-10): 8 Allergies iloperidone [From Fanapt] Allergy (Verified 09/12/18 11:31) Other lurasidone [From Latuda] Allergy (Verified 09/12/18 11:31) Other naproxen Allergy (Verified 09/12/18 11:31) Hives paliperidone [From Invega] Allergy (Verified 09/12/18 11:31) increased psychiatric symptoms trazodone Allergy (Verified 09/12/18 11:31) Other theophylline Adverse Reaction (Verified 09/12/18 11:31) Other SLOBID Adverse Reaction (Uncoded 09/08/18 15:02) Other Medications Pravastatin [Pravachol] 40 mg PO QHS 12/18/17 [History Confirmed 09/12/18] Buprenorphine HCl/Naloxone HCl [Suboxone 8 mg-2 mg Sl Film] 1 ea SL BID 12/24/17 [History Confirmed 09/12/18] calcium carbonate 600 mg calcium (1,500 mg) tablet 600 mg PO BID #60 tab 06/08/18 [Rx Confirmed 09/12/18] famotidine 10 mg tablet 10 mg PO DAILY #90 tab 06/16/18 [Rx Confirmed 09/12/18] ferrous sulfate 325 mg (65 mg iron) tablet 325 mg PO DAILY #90 tab 07/14/18 [Rx Confirmed 09/12/18] miconazole nitrate 2 % topical powder 1 applic TOPICAL BID #71 g 07/14/18 [Rx Confirmed 09/12/18] metoprolol tartrate 25 mg tablet 25 mg PO DAILY #30 tab 07/30/18 [Rx Confirmed 09/12/18] sennosides 8.6 mg-docusate sodium 50 mg tablet 1 tab PO BID PRN #60 tab 07/30/18 [Rx Confirmed 09/12/18] bisacodyl 5 mg tablet,delayed release 20 mg PO ONCE #4 tab 08/09/18 [Rx Confirmed 09/12/18] polyethylene glycol 3350 17 gram/dose oral powder See Rx Instructions PO .COMPLEX #238 g 08/09/18 [Rx Confirmed 09/12/18] walker See Dose Instructions .ROUTE .MEDSUPPLY #1 ea 08/19/18 [Rx] Lactobacillus Acidophilus/Fos [Acidophilus Probiotic Tablet] 1 ea PO BID #10 tab 08/31/18 [Rx Confirmed 09/12/18] albuterol sulfate HFA 90 mcg/actuation aerosol inhaler 1 puff INHALATION Q4H PRN PRN #8.5 g 09/07/18 [Rx Confirmed 09/12/18] blood pressure monitor kit See Dose Instructions .ROUTE .MEDSUPPLY #1 ea 09/07/18 [Rx Confirmed 09/07/18] divalproex ER 250 mg tablet,extended release 24 hr 500 mg PO BID #120 tab 09/07/18 [Rx Confirmed 09/12/18] incontinence pad, liner, disposable See Dose Instructions .ROUTE .MEDSUPPLY #200 ea 09/07/18 [Rx Confirmed 09/07/18] shower chair #1 ea 09/07/18 [Rx Confirmed 09/07/18] dextromethorphan-guaifenesin ER 60 mg-1,200 mg tab,extend release,12hr 1 tab PO Q12H PRN #20 tab 09/15/18 [Rx Confirmed 09/15/18] lisinopril 40 mg tablet 40 mg PO DAILY #90 tab 09/15/18 [Rx Confirmed 09/15/18] PFSH Medical History History of skin cancer (Resolved) Dissociative identity disorder (Chronic) COPD (chronic obstructive pulmonary disease) (Acute) History of UTI (Acute) Kidney failure (Acute) Multiple personalities (Chronic) Panic attacks (Chronic) H/O: hysterectomy (Inactive) Surgical History History of 3 sections (Acute) History of hernia repair (Acute) H/O hernia repair (Inactive) History of (Inactive) Family History Brother Colon cancer Aunt Obesity Sister Obesity Mother Rheumatoid arthritis Social History Smoking Status: Current some day smoker how long ago did patient quit smokin alcohol intake: never substance use type: does not use HPI HPI Chief Complaint: FU er Details: GIOVANA POWELL, is a 68 F who presents to the office today for follow-up after ER visit for cough. She has a past medical history as listed above. Patient is here today for follow-up exam after ER visit on 09/12/18 for shortness of breath and she was diagnosed with viral bronchitis. A chest x-ray at that time demonstrated Mild pulmonary vascular congestion. No evidence for focal airspace disease. COPD suspected. she admits to being short of breath with exertion for the last week, however, this has been slowly improving. She admits to a productive cough of green and yellow tinged phlegm, which is improving as well. She has been using her albuterol nebulizer 3 times a day with mild relief. The patient otherwise denies any fever, chills, nausea, vomiting, shortness of breath, chest pain or pressure, palpitations, orthopnea, lower extremity edema, syncope or presyncopal episodes. ROS Const Constitutional: Positive for body ache, chills, fatigue, headache(s), sleep problems and change in appetite; no fever(s), frequent falls, weight change, snoring, excessive sweating or weakness Eyes Eyes: Positive for blurry vision and change in vision; no eye pain or light sensitivity ENT ENT: Positive for headache(s) and nasal discharge; no abnormal hearing, ear pain, tinnitus, nasal congestion, sore throat or neck pain Resp Respiratory: Positive for cough, shortness of breath and wheezing; no snoring Cardio Cardiology: No excessive sweating, chest pain at rest, chest pain with exertion, shortness of breath, dyspnea on exertion, orthopnea, palpitations or lightheadedness Gastro GI: Positive for constipation and cramping; no abdominal pain, change in bowel habits, diarrhea, vomiting or nausea/dyspepsia Genitourinary-Female: No difficulty urinating, burning urination, painful urination, urinary frequency, urinary urgency, urinary incontinence, blood in urine, urinary retention or urinary hesitancy Musc Musculoskeletal: No neck pain, abnormal walking, joint pain, back pain, limited range of motion, numbness, tingling or muscle weakness Skin Skin: No redness, dry skin, itching, lesions, wounds or rash Neuro Neurology: Positive for headache(s); no frequent falls, weakness, abnormal hearing, abnormal walking, numbness, tingling, abnormal speech, dizziness or memory loss Psych Psychiatric: Positive for change in appetite, No memory loss, No anxiety, No depression, No Thoughts of harming yourself/Others Endo Endocrine: Positive for fatigue; no excessive sweating, cold intolerance, increased thirst/drinking, heat intolerance, increased hunger or flushing Aller/Imm Allergy/Immunologic: Positive for wheezing; no itchy eyes, seasonal allergy symptoms or hives Rigoberto/Lymp Hematologic/Lymphatic: No easy bleeding, easy bruising or enlarged lymph nodes Exam Const General: cooperative, comfortable, no acute distress Nutritional Appearance: average body habitus, well nourished Orientation: alert, oriented x3 Limitations: mental status not altered [facility] Head: normal to inspection, atraumatic Ears: hearing grossly normal bilaterally, TM's normal bilaterally Nose: external nose normal, nasal mucous membranes and turbinates normal Face and sinus: normal facial exam, laceration (right forehead skin biopsy) Mouth: oral mucosae normal Teeth and gingiva: dentition normal Throat: posterior oropharynx normal Eyes General: appearance normal, both eyes and all related structures Resp Effort AND Inspection: normal respiratory effort, able to speak in complete sentences, symmetric chest movement, respiratory effort not decreased, cough, no audible wheezes Auscultation: Left: Expiratory Wheezes, Right: Clear to Auscultation Cardio Palpation: normal PMI Rate: regular rate Heart Sounds: S1 normal, S2 normal, normal S1 and S2, no click, no gallops, no murmurs, no rubs GI Inspection: normal to inspection Auscultation: normal bowel sounds, no hyperactive bowel sounds, no hypoactive bowel sounds Palpation: soft, no hepatosplenomegaly Musc Musculoskeletal: No joint tenderness, decreased ROM or muscle weakness Skin General: turgor normal, no rashes or lesions noted Lesions: no lesions Rashes: no rashes Trauma: laceration (s/p skin cancer removal) Wounds: no wounds Hair: normal Nails: normal Other: Skin biopsy right forehead with good approximation, no signs of infection. Neuro General: alert, awake, oriented x3, CN's II-XI intact bilaterally Speech: speech normal Gait: normal gait Motor: muscle tone normal throughout Extrem General: normal to inspection, normal gait, no edema, no pedal edema Psych Appearance: grossly normal Mental Status: mental status grossly normal Affect: normal affect Attitude: cooperative Thought Process: normal Assessment AND Plan 1. Bronchitis J40 Plan Patient presents the office today for a follow-up from ER visit for acute viral bronchitis. She states she is feeling somewhat better, may continue with her albuterol nebulizers as needed. Will prescribe Mucinex DM and advised to take with a full glass of water. Discussed going to emergency department for worsening symptoms or chest pain. She should follow-up as scheduled or sooner if needed. 2. Essential hypertension I10 Plan Hypertension: Blood pressure is suboptimal at this time. Will make changes to current medication regimen which include the addition of increasing lisinopril to 40 mg daily. Baseline labs reviewed. Educated patient on the potential side effects of the new medication and to keep a log of their blood pressures at home. Discussed risk factor reduction and lifestyle modifications. Discussed dietary changes that should be considered which include reducing the amount of sodium intake. Patient instructed to follow up in 3 weeks for hypertension follow up visit. Orders Orders: Plan Detail Other Medications New: dextromethorphan-guaifenesin 60-1,200 mg (Muc1 tab PO Q12H PRN 20 tabs 1RF cold symptoms inex DM) Discontinued: benzonatate (Tessalon Perles) Discontinued Reason:100 mg PO TID PRN 30 caps 0RF cough Order Completed Follow Up As scheduled or sooner if needed Coding Level of Care Code Off vis,est,level 3 Diagnoses Bronchitis J40 Essential hypertension I10 09/16/18 0925 <Electronically signed by Tarun DAVIDSON> Date Tarun Nino [employer]AT CLE[employer]ER-C Cosigner Signature: Date (if applicable) CC: INTERNAL MEDICINE Observed: 09/14/2018 Status: F Source: [place] OFFICE VISIT 10:28 AM [facility] [address] [place] [address] [place] [address] OFFICE VISIT Date of Service: 09/07/18 MR#: [id number] Acct: [id number] Name: GIOVANA POWELL Rep #: [id number] : 1950 Provider: Tarun Nino NP Age/Sex: 68/F Location: [facility] Status: Signed Intake Vital Signs09/07/18 Body Mass Index (BMI) 32.2 09/07/18 Height 5 ft 1 in Intake Visit Reasons: F/U COLONOSCOPY AND FACIAL SURGERY Chief Complaint: FU. Is patient in pain?: No Allergies iloperidone [From Fanapt] Allergy (Verified 09/12/18 11:31) Other lurasidone [From Latuda] Allergy (Verified 09/12/18 11:31) Other naproxen Allergy (Verified 09/12/18 11:31) Hives paliperidone [From Invega] Allergy (Verified 09/12/18 11:31) increased psychiatric symptoms trazodone Allergy (Verified 09/12/18 11:31) Other theophylline Adverse Reaction (Verified 09/12/18 11:31) Other SLOBID Adverse Reaction (Uncoded 09/08/18 15:02) Other Medications Lisinopril [Zestril] 20 mg PO DAILY 03/24/17 [History Confirmed 09/12/18] Pravastatin [Pravachol] 40 mg PO QHS 12/18/17 [History Confirmed 09/12/18] Buprenorphine HCl/Naloxone HCl [Suboxone 8 mg-2 mg Sl Film] 1 ea SL BID 12/24/17 [History Confirmed 09/12/18] calcium carbonate 600 mg calcium (1,500 mg) tablet 600 mg PO BID #60 tab 06/08/18 [Rx Confirmed 09/12/18] famotidine 10 mg tablet 10 mg PO DAILY #90 tab 06/16/18 [Rx Confirmed 09/12/18] ferrous sulfate 325 mg (65 mg iron) tablet 325 mg PO DAILY #90 tab 07/14/18 [Rx Confirmed 09/12/18] miconazole nitrate 2 % topical powder 1 applic TOPICAL BID #71 g 07/14/18 [Rx Confirmed 09/12/18] metoprolol tartrate 25 mg tablet 25 mg PO DAILY #30 tab 07/30/18 [Rx Confirmed 09/12/18] sennosides 8.6 mg-docusate sodium 50 mg tablet 1 tab PO BID PRN #60 tab 07/30/18 [Rx Confirmed 09/12/18] bisacodyl 5 mg tablet,delayed release 20 mg PO ONCE #4 tab 08/09/18 [Rx Confirmed 09/12/18] polyethylene glycol 3350 17 gram/dose oral powder See Rx Instructions PO .COMPLEX #238 g 08/09/18 [Rx Confirmed 09/12/18] walker See Dose Instructions .ROUTE .MEDSUPPLY #1 ea 08/19/18 [Rx] Clindamycin HCl [Cleocin] 300 mg PO TID #15 cap 08/31/18 [Rx Confirmed 09/12/18] Lactobacillus Acidophilus/Fos [Acidophilus Probiotic Tablet] 1 ea PO BID #10 tab 08/31/18 [Rx Confirmed 09/12/18] albuterol sulfate HFA 90 mcg/actuation aerosol inhaler 1 puff INHALATION Q4H PRN PRN #8.5 g 09/07/18 [Rx Confirmed 09/12/18] benzonatate 100 mg capsule 100 mg PO TID PRN #30 cap 09/07/18 [Rx Confirmed 09/12/18] blood pressure monitor kit See Dose Instructions .ROUTE .MEDSUPPLY #1 ea 09/07/18 [Rx Confirmed 09/07/18] divalproex ER 250 mg tablet,extended release 24 hr 500 mg PO BID #120 tab 09/07/18 [Rx Confirmed 09/12/18] incontinence pad, liner, disposable See Dose Instructions .ROUTE .MEDSUPPLY #200 ea 09/07/18 [Rx Confirmed 09/07/18] shower chair #1 ea 09/07/18 [Rx Confirmed 09/07/18] oxycodone-acetaminophen 5 mg-325 mg tablet 1 tab PO 4X/DAY PRN #30 tab 09/08/18 [Rx Confirmed 09/12/18] Benzonatate [Tessalon Perle] 200 mg PO TID PRN PRN #20 cap 09/12/18 [Rx] Post menopausal: Yes PFSH Medical History History of skin cancer (Resolved) Dissociative identity disorder (Chronic) COPD (chronic obstructive pulmonary disease) (Acute) History of UTI (Acute) Kidney failure (Acute) Multiple personalities (Chronic) Panic attacks (Chronic) H/O: hysterectomy (Inactive) Surgical History History of 3 sections (Acute) History of hernia repair (Acute) H/O hernia repair (Inactive) History of (Inactive) Family History Brother Colon cancer Aunt Obesity Sister Obesity Mother Rheumatoid arthritis Social History Smoking Status: Current some day smoker how long ago did patient quit smokin alcohol intake: never substance use type: does not use HPI HPI Chief Complaint: FU. Details: GIOVANA POWELL, is a 68 F who presents to the office today for routine follow-up and acute concerns. The patient has a past medical history as listed above. The patient presents for follow-up of her hypertension, history of seizures and bipolar. Patient is unable to check blood pressure at home because she does not have a cuff however she noted at her previous doctor's appointment her blood pressure was elevated. She states she forgot to take her blood pressure medication today but she denies any signs or symptoms of hypertension. 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 She complains of a persistent cough that has been going on for about a week, however she does note a chronic cough as well, she has occasional yellow sputum but denies shortness of breath wheezing, chills or fever. She is requesting Tessalon Perles because her cough keeps her up at night. She denies any other aggravating or alleviating. The patient otherwise denies any fever, chills, nausea, vomiting, shortness of breath, chest pain or pressure, palpitations, orthopnea, lower extremity edema, syncope or presyncopal episodes. ROS Const Constitutional: No weight change, body ache, chills, fatigue, sleep problems, fever(s), change in appetite, snoring, weakness, frequent falls, headache(s) or excessive sweating Eyes Eyes: No change in vision, eye pain, light sensitivity or blurry vision ENT ENT: No headache(s), abnormal hearing, ear pain, tinnitus, nasal congestion, sore throat or neck pain Resp Respiratory: Positive for cough; no snoring, shortness of breath or wheezing Cardio Cardiology: No excessive sweating, chest pain at rest, chest pain with exertion, shortness of breath, dyspnea on exertion, palpitations, orthopnea or lightheadedness Gastro GI: No abdominal pain, change in bowel habits, constipation, diarrhea, vomiting, nausea/dyspepsia or cramping Genitourinary-Female: No burning urination, painful urination, urinary incontinence, urinary frequency, abnormal vaginal bleeding, pelvic pain or other Musc Musculoskeletal: No neck pain, abnormal walking, joint pain, back pain, limited range of motion, numbness, tingling or muscle weakness Skin Skin: No redness, dry skin, itching, lesions, wounds or rash Neuro Neurology: No weakness, frequent falls, headache(s), abnormal hearing, abnormal walking, numbness, tingling, abnormal speech, dizziness or memory loss Psych Psychiatric: No change in appetite, No memory loss, No anxiety, No depression, No Thoughts of harming yourself/Others Endo Endocrine: No fatigue, excessive sweating, cold intolerance, increased thirst/drinking, heat intolerance, flushing or increased hunger Aller/Imm Allergy/Immunologic: No wheezing, itchy eyes, hives or seasonal allergy symptoms Rigoberto/Lymp Hematologic/Lymphatic: No easy bleeding, easy bruising or enlarged lymph nodes Exam Const General: cooperative, comfortable, no acute distress Nutritional Appearance: well nourished, obese Orientation: alert, oriented x3 Limitations: mental status not altered [facility] Head: normal to inspection Ears: hearing grossly normal bilaterally Nose: external nose normal Eyes General: appearance normal, both eyes and all related structures Resp Effort AND Inspection: normal respiratory effort, able to speak in complete sentences, normal respiratory pattern, symmetric chest movement, no audible wheezes, no cough Auscultation: Bilateral: Clear to Auscultation Cardio Palpation: normal PMI Rate: regular rate Heart Sounds: S1 normal, S2 normal, normal S1 and S2, no click, no gallops, no murmurs, no rubs Musc Musculoskeletal: No joint tenderness, decreased ROM or muscle weakness Skin General: no rashes or lesions noted, elasticity normal, turgor normal Lesions: no lesions Rashes: no rashes Wounds: wounds noted (Multiple surgical incisions noted to face no signs of infection) Neuro General: alert, awake, oriented x3, CN's II-XI intact bilaterally Speech: speech normal Gait: normal gait Motor: muscle tone normal throughout Extrem General: normal to inspection, normal gait, no edema, no pedal edema Psych Appearance: disheveled Mental Status: mental status grossly normal Affect: normal affect Speech and Movement: speech and movement normal Attitude: cooperative Thought Process: flight of ideas Thought Content: no hallucinations, no delusions, suicidality, no phobias, no homicidality Judgment: fair Assessment AND Plan 1. Essential hypertension I10 Plan Patient's blood pressure significantly elevated in office today. Patient states she did not take her blood pressure medication today and that her blood pressure usually runs normal. Prescription given for patient to obtain at home blood pressure cuff. Patient encouraged to check blood pressure at home, keep log and drop off in 2 weeks. Discussed importance of adhering to her antihypertensive medication regimen 2. Cough R05 Plan Patient requesting Tessalon Perles. Patient educated on signs and symptoms that would warrant emergency medical care. Most likely chronic, due to her smoking history. Discussed if her cough worsens or if it becomes productive, she should notify our office. 3. History of seizure Z87.898 Plan Depakote refilled today. 4. Bipolar disorder F31.9 Plan Patient has no thoughts of suicide or self-harm. Patient also denies hallucinations or delusions. Patient encouraged to follow-up with another psychiatrist as this is essential for her management of her bipolar. Referral given Orders Referrals: Plan Detail Other Orders Referrals: Other Medications New: blood pressure monitor kit (Blood Pressure KiCheck blood pressure daily for hypertension I t) 10 1 ea 0RF Follow Up 2 Months Coding Level of Care Code Off vis,est,level 3 Diagnoses Essential hypertension I10 Cough R05 History of seizure Z87.898 Bipolar disorder F31.9 Current bipolar episode type: manic 09/14/18 1028 <Electronically signed by Tarun DAVIDSON> Date Tarun Nino [employer]AT CLE[employer]ER-C Cosigner Signature: Date (if applicable) CC: PLASTIC SURGERY Observed: 09/12/2018 Status: F Source: [place] VISIT REPORT 2:40 PM [facility] RE[facility] [address] [place] [address] OFFICE VISIT Date of Service: 09/08/18 MR#: [id number] Acct: [id number] Name: GIOVANA POWELL Rep #: [id number] : 1950 Provider: Isaías Davis MD Age/Sex: 68/F Location: [facility] Status: Signed Intake Vital Signs09/08/18 Body Mass Index (BMI) 32.2 09/08/18 Blood Pressure 172/92 H 09/08/18 Blood Pressure Location Lt brachial 09/08/18 Blood Pressure Position Sitting 09/08/18 Respiratory Rate 18 Intake Visit Reasons: post op surgery 08/31/18 Law Clerk Required: No Accompanied by: None Is patient in pain?: Yes (FACE AND SCALP PAIN THROBBING ) Pain scale (1-10): 8 Allergies iloperidone [From Fanapt] Allergy (Verified 09/12/18 11:31) Other lurasidone [From Latuda] Allergy (Verified 09/12/18 11:31) Other naproxen Allergy (Verified 09/12/18 11:31) Hives paliperidone [From Invega] Allergy (Verified 09/12/18 11:31) increased psychiatric symptoms trazodone Allergy (Verified 09/12/18 11:31) Other theophylline Adverse Reaction (Verified 09/12/18 11:31) Other SLOBID Adverse Reaction (Uncoded 09/08/18 15:02) Other Medications Lisinopril [Zestril] 20 mg PO DAILY 03/24/17 [History Confirmed 09/12/18] Pravastatin [Pravachol] 40 mg PO QHS 12/18/17 [History Confirmed 09/12/18] Buprenorphine HCl/Naloxone HCl [Suboxone 8 mg-2 mg Sl Film] 1 ea SL BID 12/24/17 [History Confirmed 09/12/18] calcium carbonate 600 mg calcium (1,500 mg) tablet 600 mg PO BID #60 tab 06/08/18 [Rx Confirmed 09/12/18] famotidine 10 mg tablet 10 mg PO DAILY #90 tab 06/16/18 [Rx Confirmed 09/12/18] ferrous sulfate 325 mg (65 mg iron) tablet 325 mg PO DAILY #90 tab 07/14/18 [Rx Confirmed 09/12/18] miconazole nitrate 2 % topical powder 1 applic TOPICAL BID #71 g 07/14/18 [Rx Confirmed 09/12/18] metoprolol tartrate 25 mg tablet 25 mg PO DAILY #30 tab 07/30/18 [Rx Confirmed 09/12/18] sennosides 8.6 mg-docusate sodium 50 mg tablet 1 tab PO BID PRN #60 tab 07/30/18 [Rx Confirmed 09/12/18] bisacodyl 5 mg tablet,delayed release 20 mg PO ONCE #4 tab 08/09/18 [Rx Confirmed 09/12/18] polyethylene glycol 3350 17 gram/dose oral powder See Rx Instructions PO .COMPLEX #238 g 08/09/18 [Rx Confirmed 09/12/18] walker See Dose Instructions .ROUTE .MEDSUPPLY #1 ea 08/19/18 [Rx] Clindamycin HCl [Cleocin] 300 mg PO TID #15 cap 08/31/18 [Rx Confirmed 09/12/18] Lactobacillus Acidophilus/Fos [Acidophilus Probiotic Tablet] 1 ea PO BID #10 tab 08/31/18 [Rx Confirmed 09/12/18] albuterol sulfate HFA 90 mcg/actuation aerosol inhaler 1 puff INHALATION Q4H PRN PRN #8.5 g 09/07/18 [Rx Confirmed 09/12/18] benzonatate 100 mg capsule 100 mg PO TID PRN #30 cap 09/07/18 [Rx Confirmed 09/12/18] blood pressure monitor kit See Dose Instructions .ROUTE .MEDSUPPLY #1 ea 09/07/18 [Rx Confirmed 09/07/18] divalproex ER 250 mg tablet,extended release 24 hr 500 mg PO BID #120 tab 09/07/18 [Rx Confirmed 09/12/18] incontinence pad, liner, disposable See Dose Instructions .ROUTE .MEDSUPPLY #200 ea 09/07/18 [Rx Confirmed 09/07/18] shower chair #1 ea 09/07/18 [Rx Confirmed 09/07/18] oxycodone-acetaminophen 5 mg-325 mg tablet 1 tab PO 4X/DAY PRN #30 tab 09/08/18 [Rx Confirmed 09/12/18] Benzonatate [Tessalon Perle] 200 mg PO TID PRN PRN #20 cap 09/12/18 [Rx] Is last menstrual period known: No Post menopausal: Yes Patient : No PFSH Medical History History of skin cancer (Resolved) Dissociative identity disorder (Chronic) COPD (chronic obstructive pulmonary disease) (Acute) History of UTI (Acute) Kidney failure (Acute) Multiple personalities (Chronic) Panic attacks (Chronic) H/O: hysterectomy (Inactive) Surgical History History of 3 sections (Acute) History of hernia repair (Acute) H/O hernia repair (Inactive) History of (Inactive) Family History Brother Colon cancer Aunt Obesity Sister Obesity Mother Rheumatoid arthritis Social History Smoking Status: Current some day smoker how long ago did patient quit smokin alcohol intake: never substance use type: does not use HPI post op surgery 08/31/18: Details: Postop visit from her recent surgery on 08/31/18 where she underwent excision 11 mm basal cell carcinoma right medial forehead with lateral rectangular horizontal advancement skin flap reconstruction (6 cm2) and excision 6 mm basal cell carcinoma right upper lip by nasolabial fold and excision 5 mm lesion right supramedial cheek with perialar crescenteric advancement skin flap reconstruction (10.5 cm2) and excision 4 mm pigmented lesion right restorationist by hairline with 1.5 cm layered closure and intradermal excision 5 mm intradermal nevus right lateral cheek. Patient denies any complaints. She was in the ED postop because of periorbital swelling which has since resolved. Incisions are dry and intact. Flaps are healing satisfactory. There is some bruising on the distal aspect of the right medial forehead skin flap. Will observe. Pathology was discussed with the patient. The right medial forehead lesion was a basal cell carcinoma, completely excised. The right upper lip by nasolabial fold lesion was a basal cell carcinoma, completely excised. The right supramedial cheek lesion was a basal cell carcinoma, completely excised. 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 The right lateral cheek lesion was an intradermal nevus. Sutures were removed today without difficulty. Apply antibiotic ointment daily to the right medial forehead incision because of the bruising. Will observe. Massage the rest of the incisions with skin lotion daily to help soften up the scars. She didn't get the Percocet script filled from the OR. She gave me back the script which was shredded. I rewrote a new script for Percocet for pain (30 tabs). Followup 2 weeks. Assessment AND Plan Problems 1. Basal cell carcinoma of right forehead C44.319 2. Basal cell carcinoma of upper lip C44.01 3. Basal cell carcinoma of right medial cheek C44.319 4. 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 Benign neoplasm of skin of cheek D23.39 6. Personal history of skin cancer Z85.828 7. 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 Benign neoplasm of skin of cheek D23.39 Personal history of skin cancer Z85.828 Former smoker Z87.891 09/12/18 0033 <Electronically signed by Isaías Davis MD> Date Isaías Davis MD 09/12/18 1440<Electronically signed by Geneva DAVIDSON> Cosigner Signature: Date (if applicable) Preet,Geneva E [employer]AT CLE[employer]ER-C CC: EMERGENCY DEPARTMENT Observed: 09/12/2018 Status: F Source: [place] SUMMARY 1:44 PM [facility] REPOSITORY [facility] Medical Records Department [address] [place] [address] Emergency Department Summary 09/12/18 1242 MR#: [id number] Acct: [id number] Name: GIOVANA POWELL Rep #: [id number] : 1950 68 From: Navjot Tejeda DO PCP: Esperanza Baird MD Status: REG ER - ER Visit Summary Date of Service: 09/12/18 Chief Complaint: Shortness of breath and cough History of Present Illness: The patient is a 68 F who presents with shortness of breath and cough that has been getting worse over the past 2 days. Patient states it has gradually gotten worse. Patient states she has been around a family member who has had a sinus infection and someone else who has had bronchitis. Patient states she is coughing up some green sputum. Patient also admits to some rhinorrhea. Patient also admits to some mild tightness in her chest. Patient denies any fevers. Patient states her breathing is worse with exertion and with coughing. Physical Examination: Vital signs are stable. Patient is afebrile. Patient is in no acute distress. Oral mucosa is pink and moist. Neck is supple. Trachea is midline. No JVD noted. Heart was regular rate and rhythm. Lungs showed mild expiratory rhonchi. There is good respiratory effort noted. Abdomen is soft. Bowel sounds are normal. There is no tenderness. Cranial nerves II through XII are intact. There are no focal motor or sensory deficits noted. The remaining physical exam is within normal limits. Test Results: EKG showed normal sinus rhythm with a rate of 74. There are no acute ST or T wave changes. CBC shows slight leukocytosis of 12.4. Basic metabolic profile was essentially within normal limits. PA and lateral chest x-ray shows evidence of COPD and some mild congestion. There is no acute infiltrate. Emergency Department Course and Treatment: Patient was given a DuoNeb aerosol here. Patient felt somewhat better on reevaluation. Patient was advised that this is most likely a viral bronchitis. Patient was instructed to follow-up with her primary care physician in 5-7 days. Patient was instructed to continue the Mucinex as directed. Patient was given a prescription for Tessalon. Patient was instructed to return if worse in any way. Patient understood and was agreeable with the plan. All questions were answered. Disposition: Discharged home Impression: Viral bronchitis This note was generated with [employer] dictation software. It may contain incorrect words, spelling, and punctuation that were not noted in review of the chart prior to signing ED Disposition - Plan for ED Patient: Disposition: Home or Assisted Living Chief Complaint: Shortness of Breath Diagnosis: Bronchitis Instructions: ED Upper Resp Infec No Abx Tx Prescriptions: Benzonatate [Tessalon Perle] 200 mg PO TID PRN PRN #20 cap PRN Reason: Cough Referrals: Esperanza Baird MD [Primary Care Provider] - What to do if you have Problems For any increased pain, shortness of breath, bleeding, nausea or vomiting, chest pain, or any unexpected problems, contact your Primary Care Provider. Call [facility] ([phone]) or report to the closest Emergency Room. Call 911 if necessary. 09/12/18 1344 <Electronically signed by Navjot Tejeda DO> Date Navjot Tejeda DO Cosigner Signature (If Indicated): Date CC: Esperanza Baird MD Observed: 09/12/2018 Status: F Source: [place] INFLUENZA A+B (RAPID 12:[address] [facility]) REPOSITORY Has pt arrived? Y FLU A/B Rapid Negative test results should be confirmed by culture. Order Rapid Viral Culture for Influenzae A+B (034558) if clinically indicated. Influenza Ag, Direct Presumptive NEGATIVE for Influenza A/B Antigen (See Note) Performed By: #### M101.0101 #### [facility] [address] [place], [address] CHEST PA AND LATERAL Observed: 09/12/2018 Status: F Source: [place] 12:07 PM [facility] REPOSITORY [facility] Imaging Services [address] [place] [address] Chest PA and Lateral MR#: [id number] Acct: [id number] Name: GIOVANA POWELL Rep #: [id number] : 1950 F 68 From: Shilo Dee MD PCP: Esperanza Baird MD Status: PRE ER Study: Chest PA and Lateral Date of Exam: 09/12/18 Exam# [id number] Ordering Dr: Navjot Tejeda DO STUDY: X-RAY CHEST REASON FOR EXAM: Female, 68 years old. Cough TECHNIQUE: 2 views of the chest were obtained COMPARISON: June 08, 2018 chest radiograph FINDINGS: No pneumothorax or consolidation. No definite pleural effusion. Mild pulmonary vascular congestion. Flattening of the hemidiaphragm. Degenerative changes of the thoracic spine. Calcified hilar lymph nodes. IMPRESSION: Mild pulmonary vascular congestion. No evidence for focal airspace disease. COPD suspected Electronically Signed: Shilo Dee, at 12:48 EST Tel , Service support , RAD/Chest PA and Lateral CC: Esperanza Baird MD; Navjot Tejeda DO Stallion Manager: Signed BASIC METABOLIC Collected: 09/12/2018 Status: F Source: [place] PROFILE (BMP) 11:35 AM [facility] REPOSITORY TYPE CODE TESTS RESULT OUT OF RANGE REFERENCE UNITS LAB L501.0100 74-106 mg/dL Normal GLU 96 Result Comment: Please note revised GLUCOSE reference range effective 2017. LAB L501.1000 7-18 mg/dL Normal BUN 14 LAB L501.1100 0.55-1.02 mg/dL Normal CREAT,SERUM 0.65 Result Comment: The validity of the calculated GFR AND GFRAA in patients over 70 years has not been determined. Clinical correlation is essential. LAB L501.1110 >60 mL/min Normal EST GFR 97 Result Comment: Non- GFR Calc LAB L501.1115 >60 mL/min Normal EST GFR - AA 117 Result Comment: GFR Calc LAB L501.1255 ml/min Normal Estimated CRCL 41.76 LAB L501.1300 10-20 RATIO High BUN/CRE 21.5 LAB L501.2200 8.5-10 mg/dL Normal .1 CA 8.7 LAB L501.5300 136-14 mmol/L Normal 5 NA 140 LAB L501.5600 3.5-5. mmol/L Normal 1 K 4.4 LAB L501.5900 98-107 mmol/L High CL 108 LAB L501.6100 21.0-3 mmol/L Normal 2.0 CO2 24.0 LAB L501.6200 5-15 Normal GAP 8 Performed By: #### L500.2500 #### [facility] [address] [place], [address] CBC W/DIFF, AUTOMATED Collected: 09/12/2018 Status: F Source: [place] 11:35 AM [facility] REPOSITORY TYPE CODE TESTS RESULT OUT OF RANGE REFERENCE UNITS LAB L100.1000 4.4-11.0 K/mm3 High WBC 12.4 LAB L100.1200 4.2-5.4 M/mm3 Normal RBC 4.46 LAB L100.1300 12.0-15.0 g/dl Normal HGB 13.4 LAB L100.1400 37-47 % Normal HCT 41.0 LAB L100.1500 81-99 fL Normal MCV 91.9 LAB L100.1600 27.0-32.0 pg Normal MCH 30.0 LAB L100.1700 32-36 g/gl Normal MCHC 32.7 LAB L100.1810 11.6-14.6 % Normal RDW CV 14.6 LAB L100.1820 35.1-43.9 fl High RDW SD 49.5 LAB L100.1900 150-450 K/mm3 Normal PLT 408 LAB L100.2000 6.2-12.0 fl Normal MPV 9.6 LAB L100.2100 47-70 % High NEUT% 76.0 LAB L100.2200 19-41 % Low LY% 15.0 LAB L100.2300 0-10 % Normal MONO% 7.6 LAB L100.2400 0-5 % Normal EO% 1.0 LAB L100.2500 0-1 % Normal BASO% 0.2 LAB L100.2550 0.0-0.9 % Normal IM GRAN % 0.200 Result Comment: IG% - Immature Granulocytes (promyelocytes, myelocytes and metamyelocytes) > 1% indicates that a LEFT SHIFT is Present. LAB L100.2620 2.0-7.7 X10 3/uL High Absolute Neut 9.4 LAB L100.2720 0.83-4.51 X10 3/ul Normal Absolute Lymph 1.86 Performed By: #### L100.0100 #### [facility] [address] [place], [address] OPERATIVE REPORT Observed: 09/09/2018 Status: F Source: [place] 1:04 PM [facility] REPOSITORY [facility] Medical Records Department [address] [place] [address] Operative Report 08/31/18 2204 MR#: [id number] Acct: [id number] Name: GIOVANA POWELL Rep #: [id number] : 1950 68 From: Isaías Davis MD PCP: Esperanza Baird MD Status: [facility] [place] [facility] [place] Operation Date of Procedure: 08/31/18 Pre-Operative Diagnosis: 1. 11 mm lesion right medial forehead. 2. 6 mm lesion right upper lip by nasolabial fold. 3. 5 mm lesion right supramedial cheek. 4. 4 mm pigmented lesion right restorationist by hairline. 5. 5 mm lesion right lateral cheek. 6. Personal history of skin cancer. 7. Former smoker. Post-Operative Diagnosis: 1. 11 mm basal cell carcinoma right medial forehead. 2. 6 mm basal cell carcinoma right upper lip by nasolabial fold. 3. 5 mm lesion right supramedial cheek. 4. 4 mm pigmented lesion right restorationist by hairline. 5. 5 mm intradermal nevus right lateral cheek. 6. Personal history of skin cancer. 7. Former smoker. Surgery/Procedure Performed:: 1. Excision 11 mm basal cell carcinoma right medial forehead with lateral rectangular horizontal advancement skin flap reconstruction (6 cm2). 2. Excision 6 mm basal cell carcinoma right upper lip by nasolabial fold and excision 5 mm lesion right supramedial cheek with perialar crescenteric advancement skin flap reconstruction (10.5 cm2). 3. Excision 4 mm pigmented lesion right restorationist by hairline with 1.5 cm layered closure. 4. Intradermal excision 5 mm intradermal nevus right lateral cheek. Description of Surgical Findings:: 68 year old woman presents for evaluation for TBSE. She has concerns about lesions on her right medial forehead, right upper lip by nasolabial fold, right restorationist by hairline, and right lateral cheek that have increased in size over the last several months and have developed irregular borders. She had a basal cell carcinoma excised from her left supramedial cheek in 2012. On the day of surgery, it was noted that there was another small erythematous lesion on the right supramedial cheek just superior to the right upper lip lesion by the nasolabial fold. I should be able to excise that lesion with the excision of the right upper lip lesion as the reconstruction of the perialar defect with a crescenteric flap should encompass that lesion. The patient had excision lesions right medial forehead, right upper lip by nasolabial fold, and right lateral cheek and send them to Pathology as frozen sections. Frozen section showed the right medial forehead lesion was a basal cell carcinoma and the right upper lip by nasolabial fold lesion was a basal cell carcinoma and the right lateral cheek lesion was an intradermal nevus. So further excision of the basal cell carcinomas right medial forehead and right upper lip by nasolabial fold will be done with skin flaps reconstruction. Today the patient underwent excision 11 mm basal cell carcinoma right medial forehead with lateral rectangular horizontal advancement skin flap reconstruction (6 cm2) and excision 6 mm basal cell carcinoma right upper lip by nasolabial fold and excision 5 mm lesion right supramedial cheek with perialar crescenteric advancement skin flap reconstruction (10.5 cm2) and excision 4 mm pigmented lesion right restorationist by hairline with 1.5 cm layered closure and intradermal excision 5 mm intradermal nevus right lateral cheek. Frozen section right medial forehead - basal cell carcinoma. Frozen section right upper lip by nasolabial fold - basal cell carcinoma. Frozen section right lateral cheek - intradermal nevus. home health nurse licensed practical: Conchita Weber. Type of Anesthesia:: General Specimen's removed: 1. Lesion right medial forehead to Pathology as a frozen section. 2. Lesion right upper lip by nasolabial fold to Pathology as a frozen section. 3. Lesion right lateral cheek to Pathology as a frozen section. 4. Pigmented lesion right restorationist by hairline to Pathology. 5. Basal cell carcinoma right medial forehead to Pathology. 6. Basal cell carcinoma right upper lip by nasolabial fold to Pathology. 7. Lesion right supramedial cheek to Pathology. Drains: None. Estimated Blood Loss (mL): 25 ml. Description of Procedure: Patient was taken to OR in supine position and was placed under local anesthesia with IV sedation initially. During the case, she was getting agitated, and it was changed to general anesthesia. The face and neck werre prepped and draped in the usual fashion. SCD's were placed for DVT prophylaxis. Perioperative antibiotics were given intravenously. Using xylocaine with epinephrine, the lesions right medial forehead, right upper lip by nasolabial fold, right lateral cheek, right restorationist by hairline, and right supramedial cheek were infiltrated. After waiting 5 minutes for the anesthetic to take effect, The pigmented lesion right restorationist by hairline was excised in an oblique elliptical fashion down into the subcutaneous tissue. A suture was marked at the 12 oclock position for pathology orientation. The lesion was then sent to Pathology for analysis to rule out carcinoma. It was excised with a 1 mm margin in all directions thus making it a 6 mm excision and a 1.5 cm layered closure. Hemostasis was obtained with electrocautery. The wound was closed in a layered fashion with 5-0 Monocryl interrupted sutures for the deep dermis and subcutaneous tissue. The skin was approximated with 6-0 Prolene simple interrupted sutures. The lesions right medial forehead, right upper lip by nasolabial fold, and right lateral cheek were excised in an intradermal fashion and sent to Pathology as a frozen section. Frozen section showed the lesion right medial forehead was a basal cell carcinoma and the lesion right upper lip by nasolabial fold was a basal cell carcinoma and the lesion right lateral cheek was an intradermal nevus. The lesion right upper lip was re-excised with a 3 mm margin in all directions thus making it a 1.2 cm excision. I jael a perialar crescenteric flap extending superiorly onto the lateral nasal sidewall junction with the cheek to encompass the new onset lesion right supramedial cheek. These markings were infiltrated with xylocaine with epinephrine. Incisions were made down into the subcutaneous tissue at the level of the facial musculature. After I created the defect, I both lesions and place sutures at the 12 oclock position for pathology orientation. Both lesions were sent to Pathology for analysis to rule out carcinoma at the margins. I elevated a right lateral cheek flap to aid in wound closure.The perialar crescenteric flap was advanced into the defect with minimal tension and minimal distortion. Hemostasis was obtained with electrocautery. The flap was then closed in multiple layers with 5-0 Monocryl interrupted sutures for the deep dermis and subcutaneous tissue. The skin was approximated with 6-0 Prolene simple interrupted sutures. Steristrips were applied followed by antibiotic ointment. Good contour was noted on the nose and upper lip. The size of the defect and the size of the flap necessary to close the defect is 10.5 cm2. The lesion right medial forehead was excised in a circular fashion with a 4 mm margin in all directions thus making it a 1.9 cm excision. A horizontal lateral rectangular flap was designed and incisions were made and the flap was elevated on a subcutaneous pedicle at the level of the underlying muscle.The flap was easily advanced into the defect with minimal tension and minimal distortion and minimize asymmetry with the eyebrow. Hemostasis was obtained with electrocautery. The wound was closed in a layered fashion with 5-0 Monocryl interrupted sutures for the deep dermis and subcutaneous tissue. The skin was approximated with 6-0 Prolene simple interrupted sutures. Steristrips were applied followed by antibiotic ointment. Hemostasis for the right lateral cheek wound was done with silver nitrate chemical cauterization. Patient tolerated the procedure well and was sent to PACU in satisfactory condition. Patient will be sent home on antibiotics and pain medication. Patient will keep her head elevated in the initial postop period. Patient will followup in a week for a wound check and for discussion of the pathology report and for removal of the sutures. Grafts/Implants Used: None. - Complications None. - Admit VTE Documentation VTE Present on Admission: No VTE Mechan Device Prophylaxis: SCD's VTE Pharm Prophylaxis ordered?: No Code Visit Surgery Charges CPT - 40074 ICD-10 - C44.319, Z85.828, Z87.891 13385 C44.01, C44.319, Z85.828, Z87.891 92185 D49.2, Z85.828, Z87.891 31159 D49.2, Z85.828, Z87.891 23451 D23.39, Z85.828, Z87.891 09/09/18 1304 <Electronically signed by Isaías Davis MD> Date Isaías Davis MD CC: Esperanza Baird MD; Isaías Davis MD Signed EMERGENCY DEPARTMENT Observed: 09/02/2018 Status: F Source: [place] SUMMARY 4:17 PM [facility] REPOSITORY [facility] Medical Records Department [address] [place] [address] Emergency Department Summary 09/02/18 1545 MR#: [id number] Acct: [id number] Name: GIOVANA POWELL Rep #: [id number] : 1950 68 From: Leonardo Fernandez MD PCP: Esperanza Baird MD Status: REG ER - ER Visit Summary Date of Service: 09/02/18 Chief Complaint: [] Right facial surgery Thursday swelling around the eye drainage from the incision History of Present Illness: The patient is a 68 F [] patient indicates she had right facial surgery by Dr. leela Saldana this past Thursday related to resection of cancer, she indicates she today had swelling around the eye and a diffuse fashion she had no eye pain no change in vision no pain with movement of the eye she also thought she had some drainage from the inferior portion of the incision that paralleled her nose she was unable to reach Dr. leela Saldana's office and she came to the emergency department. She is not prone to infection no history of MRSA she also complains of a headache no fever no cough she is taking her antibiotics Physical Examination: [] Exam her vital signs are unremarkable she is a febrile she does have postoperative changes involving multiple areas of her right face where there were biopsies there is an incision that paralleled the right nose, there is some edema and ecchymosis involving the right upper lower lid but her eye itself has no pain normal range of motion without pain normal vision anterior chambers intact pupil reacts well the forehead has some contusion as is the chin from pulling of what appears to be old blood the incision is intact without crepitance subcu air and I cannot appreciate any areas of drainage, her cranial nerve exam is otherwise unremarkable her mouth is normal HEENT exam is otherwise normal her neck is supple lungs are clear heart tones are normal upper and lower extremities and general medical neurologic exam are normal Test Results: [] Emergency Department Course and Treatment: [] Patient is concerned about all the above clinically this appears really to be postop healing there is no active signs of infection that is determined by physical exam I do not appreciate any drainage there is a number of areas of contusion whether it worries her biopsy sites or excisions of lesions, this time we did obtain CBC head CT and radiology notes head CT is unremarkable and the soft tissue of the face and around the eye are unremarkable per the radiology report I spoke with Dr. leela Saldana we discussed case in detail he agrees the patient can be discharged home to follow-up with his office in the next day or 2 she states that her antibiotics we did provide the patient with IV dose of Zosyn and vancomycin I discussed the plan with her she agrees with this plan will follow-up with him in the next 1-2 days return for change in symptoms Treatment Plan: [] Disposition: [] Home stable Impression: [] Right facial surgery patient concern for infection This note was generated with [employer] dictation software. It may contain incorrect words, spelling, and punctuation that were not noted in review of the chart prior to signing ED Disposition - Plan for ED Patient: Chief Complaint: Wound Check Instructions: ED Wound Infec After Surgery, ED Wound Check Post Op Bleeding Referrals: Esperanza Baird MD [Primary Care Provider] - Additional Instructions: Please continue all of your medications, and follow-up with all of your outpatient providers as instructed and return for change in symptoms What to do if you have Problems For any increased pain, shortness of breath, bleeding, nausea or vomiting, chest pain, or any unexpected problems, contact your Primary Care Provider. Call [facility] ([phone]) or report to the closest Emergency Room. Call 911 if necessary. 09/02/18 9969 <Electronically signed by Leonardo Fernandez MD> Date Leonardo Fernandez MD Cosigner Signature (If Indicated): Date CC: Esperanza Baird MD DISCHARGE INSTRUCTION Observed: 09/02/2018 Status: F Source: [place] 3:43 PM [facility] REPOSITORY [facility] Medical Records Department [address] [facility] [place] [address] Discharge Instruction 09/02/18 1542 MR#: [id number] Acct: [id number] Name: GIOVANA POWELL Rep #: [id number] : 1950 68 From: Leonardo Fernandez MD PCP: Esperanza Baird MD Status: REG ER ED Disposition - Plan for ED Patient: Chief Complaint: Wound Check Instructions: ED Wound Check Post Op Bleeding, ED Wound Infec After Surgery Referrals: Esperanza Baird MD [Primary Care Provider] - Additional Instructions: Please continue all of your medications, and follow-up with all of your outpatient providers as instructed and return for change in symptoms What to do if you have Problems For any increased pain, shortness of breath, bleeding, nausea or vomiting, chest pain, or any unexpected problems, contact your Primary Care Provider. Call [facility] ([phone]) or report to the closest Emergency Room. Call 911 if necessary. 09/02/18 1543 <Electronically signed by Leonardo Fernandez MD> Date Leonardo Fernandez MD Cosigner Signature (If Indicated): Date CC: Esperanza Baird MD CBC W/DIFF, AUTOMATED Collected: 09/02/2018 Status: F Source: [place] 2:55 PM [facility] REPOSITORY TYPE CODE TESTS RESULT OUT OF RANGE REFERENCE UNITS LAB L100.1000 4.4-11.0 K/mm3 Normal WBC 7.0 LAB L100.1200 4.2-5.4 M/mm3 Normal RBC 4.36 LAB L100.1300 12.0-15.0 g/dl Normal HGB 13.2 LAB L100.1400 37-47 % Normal HCT 40.9 LAB L100.1500 81-99 fL Normal MCV 93.8 LAB L100.1600 27.0-32.0 pg Normal MCH 30.3 LAB L100.1700 32-36 g/gl Normal MCHC 32.3 LAB L100.1810 11.6-14.6 % Normal RDW CV 14.5 LAB L100.1820 35.1-43.9 fl High RDW SD 49.5 LAB L100.1900 150-450 K/mm3 Normal PLT 415 LAB L100.2000 6.2-12.0 fl Normal MPV 9.6 LAB L100.2100 47-70 % Normal NEUT% 64.2 LAB L100.2200 19-41 % Normal LY% 25.0 LAB L100.2300 0-10 % Normal MONO% 8.6 LAB L100.2400 0-5 % Normal EO% 2.0 LAB L100.2500 0-1 % Normal BASO% 0.1 LAB L100.2550 0.0-0.9 % Normal IM GRAN % 0.100 Result Comment: IG% - Immature Granulocytes (promyelocytes, myelocytes and metamyelocytes) > 1% indicates that a LEFT SHIFT is Present. LAB L100.2620 2.0-7.7 X10 3/uL Normal Absolute Neut 4.5 LAB L100.2720 0.83-4.51 X10 3/ul Normal Absolute Lymph 1.74 Performed By: #### L100.0100 #### [facility] [address] [place], [place], [id number] BASIC METABOLIC Collected: 09/02/2018 Status: F Source: [place] PROFILE (BMP) 2:55 PM [facility] REPOSITORY TYPE CODE TESTS RESULT OUT OF RANGE REFERENCE UNITS LAB L501.0100 74-106 mg/dL Normal GLU 77 Result Comment: Please note revised GLUCOSE reference range effective 2017. LAB L501.1000 7-18 mg/dL Normal BUN 12 LAB L501.1100 0.55-1.02 mg/dL Normal CREAT,SERUM 0.70 Result Comment: The validity of the calculated GFR AND GFRAA in patients over 70 years has not been determined. Clinical correlation is essential. LAB L501.1110 >60 mL/min Normal EST GFR 89 Result Comment: Non- GFR Calc LAB L501.1115 >60 mL/min Normal EST GFR - AA 107 Result Comment: GFR Calc LAB L501.1255 ml/min Normal Estimated CRCL 41.76 LAB L501.1300 10-20 RATIO Normal BUN/CRE 17.1 LAB L501.2200 8.5-10 mg/dL Normal .1 CA 9.0 LAB L501.5300 136-14 mmol/L Normal 5 NA 142 LAB L501.5600 3.5-5. mmol/L Normal 1 K 4.0 LAB L501.5900 98-107 mmol/L High CL 108 LAB L501.6100 21.0-3 mmol/L Normal 2.0 CO2 27.0 LAB L501.6200 5-15 Normal GAP 7 Performed By: #### L500.2500 #### [facility] [address] [facility]. [place], [place], [address] BRAIN/HEAD WITHOUT Observed: 09/02/2018 Status: F Source: [place] CONTRAST 2:38 PM [facility] REPOSITORY [facility] Imaging Services [address] [place] [address] Brain/Head without Contrast MR#: [id number] Acct: [id number] Name: GIOVANA POWELL Rep #: [id number] : 1950 F 68 From: Wil Ortega MD PCP: Esperanza Baird MD Status: REG ER Study: Brain/Head without Contrast Date of Exam: 09/02/18 Exam# [id number] Ordering Dr: Leonardo Fernandez MD STUDY: CT BRAIN WITHOUT CONTRAST REASON FOR EXAM: Female, 68 years old. Headaches. RADIATION DOSAGE (If Supplied By Facility): CTDIvol = ( 60.81 ) mGy, DLP = ( 1044.28 ) mGycm TECHNIQUE: Transaxial CT imaging of the brain was performed without administration of intravenous contrast material. Individualized dose optimization techniques were used for this CT. COMPARISON: Comparison is made with prior study dated April 08, 2017 and December 07, 2016. FINDINGS: Normal soft tissue structures. Normal calvarium. There is mild cerebral atrophy with widening of the extra- axial spaces and ventricular dilatation. There are areas of decreased attenuation within the white matter tracts of the supratentorial brain, consistent with microvascular disease changes. Stable small bilateral lacunar infarcts in the right basal ganglion. Normal brainstem. Normal cerebellum. There is no intracranial hemorrhage. There are no findings of an acute ischemic infarction. Atherosclerotic calcification of the vertebral arteries bilaterally slightly worse on the left side as well as the cavernous portions of the internal carotid arteries bilaterally. Normal visualized paranasal sinuses. CT/Brain/Head without Contrast IMPRESSION: Chronic involutional changes of the brain. Electronically Signed: Wil Ortega MD at 15:33 EST Tel [phone], Service support , CC: MD Portillo Jwayyed; Esperanza Baird MD Stallion Manager: Signed HISTORY AND PHYSICAL Observed: 09/02/2018 Status: F Source: [place] EXAM 1:22 AM [facility] REPOSITORY [facility] Medical Records Department [address] [place] [address] History and Physical 08/30/18 9319 MR#: [id number] Acct: [id number] Name: GIOVANA POWELL Rep #: [id number] : 1950 68 From: Isaías Davis MD PCP: Esperanza Baird MD Status: [place] [facility] [place] [facility] History and Physical Date of Admission: 08/31/18 Allergies lurasidone [From Latuda] Allergy (Verified 07/22/18 15:01) Other naproxen Allergy (Verified 07/22/18 15:01) Hives paliperidone [From Invega] Allergy (Verified 07/22/18 15:01) increased psychiatric symptoms trazodone Allergy (Verified 07/22/18 15:01) Other theophylline Adverse Reaction (Verified 07/22/18 15:01) Other SLOBID Adverse Reaction (Uncoded 07/22/18 15:01) Other Medications Lisinopril [Zestril] 20 mg PO DAILY 03/24/17 [History Confirmed 07/14/18] Divalproex (ER) [Depakote ER] 500 mg PO BID 06/20/17 [History Confirmed 07/14/18] Pravastatin [Pravachol] 40 mg PO QHS 12/18/17 [History Confirmed 07/14/18] Buprenorphine HCl/Naloxone HCl [Suboxone 8 mg-2 mg Sl Film] 1 ea SL BID 12/24/17 [History Confirmed 07/14/18] Albuterol Inhaler [Ventolin Hfa (SP)] 1 puff INHALATION Q4H PRN PRN 05/20/18 [History Confirmed 07/14/18] calcium carbonate 600 mg calcium (1,500 mg) tablet 600 mg PO BID #60 tab 06/08/18 [Rx Confirmed 07/14/18] metoprolol tartrate 25 mg tablet 25 mg PO DAILY #30 tab 06/08/18 [Rx Confirmed 07/14/18] famotidine 10 mg tablet 10 mg PO DAILY #90 tab 06/16/18 [Rx Confirmed 07/14/18] Sennosides/Docusate Sodium [Senna-S Laxative Tablet] 1 ea PO BID 06/24/18 [History Confirmed 07/14/18] hydrALAZINE [Apresoline] 50 mg PO TID 06/24/18 [History Confirmed 07/14/18] ferrous sulfate 325 mg (65 mg iron) tablet 325 mg PO DAILY #90 tab 07/14/18 [Rx Confirmed 07/14/18] miconazole nitrate 2 % topical powder 1 applic TOPICAL BID #71 g 07/14/18 [Rx Confirmed 07/14/18] [facility] Medical History History of skin cancer (Acute) Dissociative identity disorder (Chronic) COPD (chronic obstructive pulmonary disease) (Acute) History of UTI (Acute) Kidney failure (Acute) Multiple personalities (Chronic) Panic attacks (Chronic) H/O: hysterectomy (Inactive) Surgical History History of 3 sections (Acute) History of hernia repair (Acute) H/O hernia repair (Inactive) History of (Inactive) Family History Brother Colon cancer Aunt Obesity Sister Obesity Mother Rheumatoid arthritis Social History Smoking Status: Former smoker how long ago did patient quit smokin alcohol intake: never substance use type: does not use HPI evaluation for TBSE: HISTORY OF PRESENT ILLNESS 68 year old woman presents for evaluation for TBSE. She has concerns about lesions on her right medial forehead, right upper lip by nasolabial fold, right restorationist by hairline, and right lateral cheek that have increased in size over the last several months and have developed irregular borders. She had a basal cell carcinoma excised from her left supramedial cheek in 2012. She presents today for further evaluation and treatment. REVIEW OF SYSTEMS General - Denies fever, fatigue, and weight loss. Is on Suboxone therapy. Eyes - Denies cataracts and glaucoma. ENT - Denies nasal congestion and sore throat. Endocrine - Denies excessive thirst and urination. Skin - Has personal history of skin cancer. Has enlarging lesions right medial forehead, right upper lip by nasolabial fold, right restorationist by hairline, and right lateral cheek. Musculoskeletal - Denies joint pain, joint stiffness, weakness of muscles and joints, back pain, and arthritis. Neuro - Denies headaches. Cardiovascular - Denies chest pain, fatigue, and shortness of breath with exertion. Psych - Has depression. Has bipolar disorder. Has panic attacks. Has dissociative identity disorder with multiple personalities. Respiratory - Denies chronic cough and shortness of breath. Patient is a former smoker. Gastrointestinal - Denies nausea, vomiting, diarrhea, and constipation. Hematologic - Denies abnormal bruising and bleeding. Genitourinary - Denies hematuria and urinary frequency. Has UTI. History of kidney failure. PHYSICAL EXAMINATION General - Alert and Oriented HEENT - PERRL. EOMI. Throat is clear. On the right medial forehead is an 11 mm lesion with some scabbing. Has irregular borders. Has some nodularity. No ulceration. Lesion is nontender. On the right upper lip by nasolabial fold is a 6 mm lesion that is nodular. Has irregular borders. No ulceration. Lesion is nontender. On the right restorationist by hairline is a pigmented lesion that measures 4 mm. Has irregular borders. No ulceration. Lesion is nontender. On the right lateral cheek is a 5 mm lesion that is raised in configuration. Has irregular borders. No ulceration. Lesion is nontender. Neck - Supple and nontender. No cervical adenopathy. No suspicious lesions noted. Lungs - Clear to auscultation. Heart - Regular rate and rhythm. Abdomen - Soft and nondistended. Extremities - FROM. No axillary adenopathy. Radial pulses are palpable. No suspicious lesions noted. Neuro - CN II-XII grossly intact. Psych - Normal mood and affect. ASSESSMENT 1. 11 mm lesion right medial forehead. 2. 6 mm lesion right upper lip by nasolabial fold. 3. 4 mm pigmented lesion right restorationist by hairline. 4. 5 mm lesion right lateral cheek. 5. Personal history of skin cancer. 6. Former smoker. PLAN Recommend excision of these lesions (right medial forehead, right upper lip by nasolabial fold, right restorationist by hairline, and right lateral cheek) and send them to Pathology for analysis to rule out carcinoma. If carcinoma is present, then further excision will be done with skin graft or skin flap reconstruction. The pigmented lesion right restorationist by hairline will be sent to Pathology for permanent analysis. Surgery will be done under general anesthesia on an outpatient basis. Patient was informed of the risks and complications of the procedure including alternatives to surgery. These were discussed with the patient personally. Patient voices understanding and wishes to proceed. Some of the risks and complications were included in a form from the [employer]. 09/02/18 0122 <Electronically signed by Isaías Davis MD> Date Isaías Davis MD Cosigner Signature: Date (if applicable) CC: Esperanza Baird MD; Isaías Davis MD Signed DISCHARGE INSTRUCTION Observed: 08/31/2018 Status: F Source: [place] 4:21 PM [facility] REPOSITORY [facility] Medical Records Department [address] [place] [address] Instructions for Home/Discharge Instructions 08/31/18 1618 MR#: [id number] Acct: [id number] Name: GIOVANA POWELL Rep #: [id number] : 1950 68 From: Isaías Davis MD PCP: Esperanza Baird MD Status: [place] [facility] You will use the following diet at home:: No restrictions Discharge Activity: May not drive while taking narcotic pain medications., May Shower - in two days., - - no heavy lifting. keep head elevated. May shower in (days): 2 May resume sexual activity in: 10-14 days Ice area for (Minutes): 5 - as needed for facial swelling. Weight Bearing Status: Weight bearing as tolerated Lifting Restrictions: 10 lbs. Keep extremity elevated above heart level: - - elevate head. Call your doctor if your incision/area has: Continuous Slow Oozing, Sudden Increased Bleeding, Increased Redness, Foul Smelling Discharge, Swelling at the incision site Call your doctor if you observe: Fever of 101 or Higher, Coldness, Increased Pain, Shortness of breath, Chest pain, Calf discomfort, Uncontrolled pain Suture Line Care: - - apply antibiotic ointment to suture line daily. Cleanse incision/area with: - - may get incisions wet in the shower in two days. Additional Instructions: Patient needs to check with her Pain Management Physician before filling the PERCOCET prescription. Patient MUST NOT TAKE Suboxone while taking Percocet. Allergies/Adverse Reactions: Allergies iloperidone [From Fanapt] Allergy (Verified 08/24/18 11:17) Other CAUSES PT TO NOT WALK OR SPEAK lurasidone [From Latuda] Allergy (Verified 08/02/18 22:59) Other naproxen Allergy (Verified 08/02/18 22:59) Hives paliperidone [From Invega] Allergy (Verified 08/02/18 22:59) increased psychiatric symptoms trazodone Allergy (Verified 08/02/18 22:59) Other theophylline Adverse Reaction (Verified 08/02/18 22:59) Other SLOBID Adverse Reaction (Uncoded 08/02/18 22:59) Other Medications to take at Discharge Lisinopril [Zestril] 20 mg PO DAILY 03/24/17 Divalproex (ER) [Depakote ER] 500 mg PO BID 06/20/17 Pravastatin [Pravachol] 40 mg PO QHS 12/18/17 Buprenorphine HCl/Naloxone HCl [Suboxone 8 mg-2 mg Sl Film] 1 ea SL BID 12/24/17 Albuterol Inhaler [Ventolin Hfa] 1 puff INHALATION Q4H PRN PRN 05/20/18 calcium carbonate 600 mg calcium (1,500 mg) tablet 600 mg PO BID #60 tab 06/08/18 famotidine 10 mg tablet 10 mg PO DAILY #90 tab 06/16/18 ferrous sulfate 325 mg (65 mg iron) tablet 325 mg PO DAILY #90 tab 07/14/18 miconazole nitrate 2 % topical powder 1 applic TOPICAL BID #71 g 07/14/18 metoprolol tartrate 25 mg tablet 25 mg PO DAILY #30 tab 07/30/18 sennosides 8.6 mg-docusate sodium 50 mg tablet 1 tab PO BID PRN #60 tab 07/30/18 bisacodyl 5 mg tablet,delayed release 20 mg PO ONCE #4 tab 08/09/18 polyethylene glycol 3350 17 gram/dose oral powder See Rx Instructions PO .COMPLEX #238 g 08/09/18 walker See Dose Instructions .ROUTE .MEDSUPPLY #1 ea 08/19/18 Clindamycin HCl [Cleocin] 300 mg PO TID #15 cap 08/31/18 Lactobacillus Acidophilus/Fos [Acidophilus Probiotic Tablet] 1 ea PO BID #10 tab 08/31/18 Oxycodone HCl/Acetaminophen [Percocet 5/325] 1 tab PO 4X/DAY PRN PRN 7 Days #30 tab 08/31/18 The following prescriptions were given: Oxycodone HCl/Acetaminophen [Percocet 5/325] 1 tab PO 4X/DAY PRN PRN 7 Days #30 tab PRN Reason: Pain Lactobacillus Acidophilus/Fos [Acidophilus Probiotic Tablet] 1 ea PO BID #10 tab Clindamycin HCl [Cleocin] 300 mg PO TID #15 cap Primary Care Physician: Esperanza Baird MD [Primary Care Provider] - Test Results: Test results from this visit will be discussed in further detail at your follow-up appointment, if applicable. Please Follow Up With: Isaías Davis MD When: one week. call [phone] for appt. Proposed Discharge Date: 08/31/18 08/31/18 1621 <Electronically signed by Isaías Davis MD> Date Isaías Davis MD CC: Esperanza Baird MD LESION (CHOOSE SITE) Observed: 08/31/2018 Status: F Source: [place] 2:14 PM [facility] REPOSITORY Patient: GIOVANA POWELL : 1950 (68/F) Acct Num: [id number] Phys: Isaías Davis MD Unit Num: [id number] [place] [facility] Specimen: [id number] Received: 08/31/18 1456 Spec Type: Lesion TISSUES 1 TISSUES: A. Skin of face, NOS B. Skin of forehead C. Skin of lip, NOS D. Skin of head, NOS E. Skin of forehead F. Skin of lip, NOS G. Skin of face, NOS FROZEN SECTION DIAGNOSIS A. 5 mm lesion right lateral cheek, biopsy: Intradermal nevus B. 11 mm lesion right medial forehead, shave biopsy: Basal cell carcinoma C. 6mm lesion right upper lip by nasolabial fold, shave biopsy: Basal cell carcinoma SJ:cc 08/31/18 GROSS DESCRIPTION A. Received fresh for frozen section diagnosis labeled with the patient's name is a specimen designated 5 mm lesion right lateral cheek. The specimen consists of a piece of muñoz-white skin measuring 0.7 x 0.5 x 0.2 cm. The specimen is inked, bisected and submitted entirely for frozen section diagnosis in one cassette. B. Received fresh for frozen section diagnosis labeled with the patient's name is a specimen designated 11 mm lesion right medial forehead. The specimen consists of a piece of muñoz-white skin measuring 0.6 x 0.5 x 0.1 cm. The specimen is inked, bisected and submitted entirely for frozen section diagnosis in one cassette. C. Received fresh for frozen section diagnosis labeled with the patient's name is a specimen designated 6 mm lesion right upper lip by nasolabial fold. The specimen consists of a piece of muñoz-white skin measuring 0.6 x 0.6 x 0.1 cm. The specimen is inked, bisected and submitted entirely for frozen section diagnosis in one cassette. D. Received in fixative is one container labeled with the patient's name and designated 4 mm pigmented lesion right restorationist by hairline, suture at 12 o' clock. The specimen consists of a muñoz-white skin ellipse measuring 1.5 x 0.4 cm x up to 0.3 cm in thickness. The specimen is inked as follows: 12 o'clock margin - black, 6 o'clock margin - blue. The entire specimen is submitted in 1 cassette. It will be serially sectioned at the time of embedding. E. Received in fixative is one container labeled with the patient's name and designated basal cell carcinoma right medial forehead, suture at 12 o'clock. The specimen consists of a round piece of skin measuring 1.5 x 1.5 x 0.3 cm. The specimen is inked as follows: 12 to 3 - black, 3 to 6 - blue, 6 to 9 - green and 9 to 12 - yellow. Focal area of ulceration is noted. The specimen is serially sectioned and submitted entirely in 2 cassettes as follows: 1 - twelve and six o'clock margin, 2 - rest of the specimen. F. Received in fixative is one container labeled with the patient's name and designated basal cell carcinoma right upper lip by nasolabial fold, suture at 12 o'clock. The specimen consists of a pear-shaped piece of muñoz-white skin measuring 3 x 1.5 cm and up to 0.8 cm in thickness. The specimen is inked as follows: 6 o'clock tip - green, 12 o'clock margin - yellow, 3 o'clock margin - black, 9 o'clock margin - blue. The specimen is serially sectioned and submitted entirely in 3 cassettes as follows: 1 - six o'clock tip and 12 o'clock margin, 2 AND 3 - rest of the specimen. G. Received in fixative is one container labeled with the patient's name and designated lesion right supra medial cheek, suture at 12 o'clock. The specimen consists of crescent piece of muñoz-white skin measuring 2 x 1.4 cm and up to 0.5 cm in thickness. The specimen is inked as follows: 12 o'clock - black, 6 o'clock - blue, 3 o'clock - green, 9 o'clock - yellow. The entire specimen is submitted in 2 cassettes as follows: 1 - twelve and six o'clock margin, 2 - rest of the specimen. GURVINDER:breezy 09/01/18 TC: 0 CPT: 65642d8, 15948f3 HEADER OPERATION: Excision basal cell carcinoma, right medial forehead with frozen sections PRE-OP DIAGNOSIS: Lesion right medial forehead, lesion right upper lip by nasolabial fold, pigmented lesion right restorationist by hairline, lesion right lateral cheek, personal history of skin cancer TISSUE SUBMITTED: A. Lesion, right lateral cheek, B. Lesion, right medial forehead, C. Lesion, right upper lip by nasolabial fold, D. Pigmented lesion, right restorationist by hairline, suture at 12 o'clock, E. Basal cell carcinoma, right medial forehead, suture at 12 o'clock, F. Basal cell carcinoma, right upper lip by nasolabial fold, suture at 12 o'clock, G. Lesion right supra medial cheek, suture at 12 o'clock MICROSCOPIC DESCRIPTION Slides are reviewed. MICROSCOPIC DIAGNOSIS A. 5 mm lesion right lateral cheek, biopsy: Intradermal nevus. B. 11 mm lesion right medial forehead, shave biopsy: Basal cell carcinoma. C. 6 mm lesion right upper lip by nasolabial fold, shave biopsy: Basal cell carcinoma. Intradermal nevus. D. 4 mm pigmented lesion, right restorationist by hairline, biopsy: Benign vascular proliferation, consistent with capillary hemangioma. E. Basal cell carcinoma, right medial forehead, excisional biopsy: Basal cell carcinoma, completely excised in the planes of section examined. Solar elastosis. Focal ulceration, consistent site of specimen B. F. Basal cell carcinoma right upper lip, by nasolabial fold, excision biopsy: Basal cell carcinoma, completely excised in the planes of section examined. Solar elastosis. Focal ulceration, consistent site of specimen C. G. Lesion right supra medial cheek, excisional biopsy: Basal cell carcinoma, completely excised in the planes of section examined. SJ:sp 09/02/18 Signed Elijah Herndonin 09/02/18 <signature on file> Performed By: #### PLES #### [facility] [address] [place], [address] OPERATIVE REPORT - Observed: 08/26/2018 Status: F Source: [place] [facility] 11:30 AM [facility] REPOSITORY [facility] Medical Records Department [address] [place] [address] Operative Report - Endoscopy MR#: [id number] Acct: [id number] Name: GIOVANA POWELL Rep #: [id number] : 1950 68 From: Mario Vyas MD PCP: Esperanza Baird MD Status: [place] [facility] Patient Name: Giovana Powell Procedure Date: 08/26/2018 10:37 AM Date of : 1950 Age: 68 Procedure: Colonoscopy Indications: Family history of colon cancer in a first-degree relative Providers: Mario Vyas MD Referring MD: Mario Vyas MD Medicines: Monitored Anesthesia Care Patient Profile: This is a 68 year old female. Refer to note in patient chart for documentation of history and physical. Last Colonoscopy: 3 years ago. Complications: No immediate complications. Procedure: Pre-Anesthesia Assessment: - Prior to the procedure, a History and Physical was performed, and patient medications and allergies were reviewed. The patient's tolerance of previous anesthesia was also reviewed. The risks and benefits of the procedure and the sedation options and risks were discussed with the patient. All questions were answered, and informed consent was obtained. Prior Anticoagulants: The patient has taken no previous anticoagulant or antiplatelet agents. After reviewing the risks and benefits, the patient was deemed in satisfactory condition to undergo the procedure. After I obtained informed consent, the scope was passed under direct vision. Throughout the procedure, the patient's blood pressure, pulse, and oxygen saturations were monitored continuously. The colonoscope was introduced through the anus and advanced to the cecum, identified by appendiceal orifice and ileocecal valve. The colonoscopy was performed without difficulty. The patient tolerated the procedure well. The quality of the bowel preparation was good. Scope In: 11:00:04 AM Scope Withdrawal Time 0 hours 9 minutes 24 seconds Scope Out: 11:24:51 AM Total Procedure Duration Time 0 hours 24 minutes 47 seconds Findings: Non-bleeding internal hemorrhoids were found during retroflexion. The hemorrhoids were Grade II (internal hemorrhoids that prolapse but reduce spontaneously). The exam was otherwise without abnormality on direct and retroflexion views. Impression: - Non-bleeding internal hemorrhoids. - The examination was otherwise normal on direct and retroflexion views. - No specimens collected. Recommendation: - Discharge patient to home. - Resume previous diet. - Continue present medications. - Repeat colonoscopy in 5 years for surveillance. Procedure Code(s): --- Professional --- 59046, Colonoscopy, flexible; diagnostic, including collection of specimen(s) by brushing or washing, when performed (separate procedure) Diagnosis Code(s): --- Professional --- K64.1, Second degree hemorrhoids Z80.0, Family history of malignant neoplasm of digestive organs CPT copyright 2017 [employer]. All rights reserved. The codes documented in this report are preliminary and upon community planner review may be revised to meet current compliance requirements. Mario Vyas MD 08/26/2018 11:30:01 AM This report has been signed electronically. Number of Addenda: 0 Note Initiated On: 08/26/2018 10:37 AM 08/26/18 1130 Date Mario Vyas MD Cosigner Signature: Date (if indicated) CC: Mario Vyas MD; Esperanza Baird MD Date Dictated: 08/26/18 1037 Date Transcribed: Stallion Manager: PADMINI Signed HISTORY AND PHYSICAL Observed: 08/26/2018 Status: F Source: [place] EXAM 10:56 AM [facility] REPOSITORY [facility] Medical Records Department [address] [place] [address] History and Physical 08/26/18 1054 MR#: [id number] Acct: [id number] Name: GIOVANA POWELL Rep #: [id number] : 1950 68 From: Mario Vyas MD PCP: Esperanza Baird MD Status: REG SDC Y Location: [place] [address] History of Present Illness Date of Admission: 08/26/18 The patient is a 68 year old F presented for colonoscopy. The patient notes no abdominal pain or gross blood in her stool. She has been having problems with a hemorrhoid for the last month. She says that she has a brother who of colon cancer in his 40s. She had her last colonoscopy [address] Sanderson. At that time she had a poor prep. Past Medical/Surgical History - Planned Operation Planned Operative Procedure/s: COLONOSCOPY Date of Operative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 History History of skin cancer (Acute) Dissociative identity disorder (Chronic) COPD (chronic obstructive pulmonary disease) (Acute) History of UTI (Acute) Kidney failure (Acute) Multiple personalities (Chronic) Panic attacks (Chronic) H/O: hysterectomy (Inactive) Surgical History History of 3 sections (Acute) History of hernia repair (Acute) H/O hernia repair (Inactive) History of (Inactive) Family History Brother Colon cancer Aunt Obesity Sister Obesity Mother Rheumatoid arthritis Social History Smoking Status: Former smoker how long ago did patient quit smokin alcohol intake: never substance use type: does not use HPI evaluation for TBSE: Details: HISTORY OF PRESENT ILLNESS 68 year old woman presents for evaluation for TBSE. She has concerns about lesions on her right medial forehead, right upper lip by nasolabial fold, right restorationist by hairline, and right lateral cheek that have increased in size over the last several months and have developed irregular borders. She had a basal cell carcinoma excised from her left supramedial cheek in 2013. She presents today for further evaluation and treatment. REVIEW OF SYSTEMS General - Denies fever, fatigue, and weight loss. Is on Suboxone therapy. Eyes - Denies cataracts and glaucoma. ENT - Denies nasal congestion and sore throat. Endocrine - Denies excessive thirst and urination. Skin - Has personal history of skin cancer. Has enlarging lesions right medial forehead, right upper lip by nasolabial fold, right restorationist by hairline, and right lateral cheek. Musculoskeletal - Denies joint pain, joint stiffness, weakness of muscles and joints, back pain, and arthritis. Neuro - Denies headaches. Cardiovascular - Denies chest pain, fatigue, and shortness of breath with exertion. Psych - Has depression. Has bipolar disorder. Has panic attacks. Has dissociative identity disorder with multiple personalities. Respiratory - Denies chronic cough and shortness of breath. Patient is a former smoker. Gastrointestinal - Denies nausea, vomiting, diarrhea, and constipation. Hematologic - Denies abnormal bruising and bleeding. Genitourinary - Denies hematuria and urinary frequency. Has UTI. History of kidney failure. PHYSICAL EXAMINATION General - Alert and Oriented HEENT - PERRL. EOMI. Throat is clear. On the right medial forehead is an 11 mm lesion with some scabbing. Has irregular borders. Has some nodularity. No ulceration. Lesion is nontender. On the right upper lip by nasolabial fold is a 6 mm lesion that is nodular. Has irregular borders. No ulceration. Lesion is nontender. On the right restorationist by hairline is a pigmented lesion that measures 4 mm. Has irregular borders. No ulceration. Lesion is nontender. On the right lateral cheek is a 5 mm lesion that is raised in configuration. Has irregular borders. No ulceration. Lesion is nontender. Neck - Supple and nontender. No cervical adenopathy. No suspicious lesions noted. Lungs - Clear to auscultation. Heart - Regular rate and rhythm. Abdomen - Soft and nondistended. Extremities - FROM. No axillary adenopathy. Radial pulses are palpable. No suspicious lesions noted. Neuro - CN II-XII grossly intact. Psych - Normal mood and affect. ASSESSMENT 1. 11 mm lesion right medial forehead. 2. 6 mm lesion right upper lip by nasolabial fold. 3. 4 mm pigmented lesion right restorationist by hairline. 4. 5 mm lesion right lateral cheek. 5. Personal history of skin cancer. 6. Former smoker. PLAN Recommend excision of these lesions (right medial forehead, right upper lip by nasolabial fold, right restorationist by hairline, and right lateral cheek) and send them to Pathology for analysis to rule out carcinoma. If carcinoma is present, then further excision will be done with skin graft or skin flap reconstruction. The pigmented lesion right restorationist by hairline will be sent to Pathology for permanent analysis. Surgery will be done under general anesthesia on an outpatient basis. Patient was informed of the risks and complications of the procedure including alternatives to surgery. These were discussed with the patient personally. Patient voices understanding and wishes to proceed. Some of the risks and complications were included in a form from the [employer]. Assessment AND Plan Problems 1. Neoplasm of skin of forehead D49.2 2. Neoplasm of skin of lip D49.2 3. Neoplasm of skin of restorationist region D49.2 4. Neoplasm of skin of right cheek D49.2 5. Personal history of skin cancer Z85.828 6. Former smoker Z87.891 Coding Level of Care Code Off vis,new,level 3 Diagnoses Neoplasm of skin of forehead D49.2 Neoplasm of skin of lip D49.2 Neoplasm of skin of restorationist region D49.2 Neoplasm of skin of right cheek D49.2 Personal history of skin cancer Z85.828 Former smoker Z87.891 07/25/18 1300 <Electronically signed by Isaías Davis MD> Date Isaías Davis MD Cosigner Signature: Date (if applicable) CC: Esperanza Baird MD; Tarun Nino NP 12 LEAD ELECTROCARDIOGRAM Observed: 06/29/2018 Status: F Source: [place] 2:38 PM [facility] Cardiovascular Services [address] [place] [address] 12 Lead EKG 06/24/18 0905 MR#: [id number] Acct: [id number] Name: GIOVANA POWELL Rep #: [id number] : 1950 67 From: Austin Khan MD Attending Dr: Status: DEP ER Ordering Dr: Austin Castaneda DO Date: 06/24/18 Location: ED Sex: F C Admitted: Test Reason : ILLNESS Blood Pressure : / mmHG Vent. Rate : 081 BPM Atrial Rate : 081 BPM P-R Int : 168 ms QRS Dur : 090 ms QT Int : 384 ms P-R-T Axes : 063 061 059 degrees QTc Int : 446 ms Normal sinus rhythm Normal ECG Confirmed by AUSTIN KHAN ([id number]), editor magazine DONATO CISSE ([id number]) on 06/29/2018 2:38:39 PM Referred By: Esperanza Baird Confirmed By:AUSTIN KHAN 06/29/18 1438 Date Austin Khan MD CC: Austin Castaneda DO; Esperanza Baird MD Signed EMERGENCY DEPARTMENT Observed: 06/26/2018 Status: F Source: [place] SUMMARY 8:02 AM [facility] Medical Records Department [address] [place] [address] Emergency Department Summary 06/24/18 0858 MR#: [id number] Acct: [id number] Name: GIOVANA POWELL Rep #: [id number] : 1950 67 From: Austin Castaneda DO PCP: Esperanza Baird MD Status: DEP ER - ER Visit Summary Date of Service: 06/24/18 Chief Complaint: Weakness History of Present Illness: The patient is a 67 F who has a long mental health history including bipolar disorder major depression and PTSD. She states that about 10 days ago she began taking a new medication (FANAPT). She states that she is now experiencing every side effect that is listed on the package insert. Most notably she notes generalized body aches nausea weakness fatigue sleepiness and headache. She states on Thursday she was seen in the emergency department because she kept falling asleep at orthodoxy. She states that she is really only been sleeping a few hours each night. On Thursday she also states that she went shopping was riding a lot of checks but does not remember doing it. She states that this is all because of that medication. She states she does not wish to see that psychiatrist or the counseling center anymore. She does not wish to be hospitalized from a psychiatric standpoint. She states that she last took her new medication on Thursday night but when pointed out that the medication is still in her blister pack she states that yes indeed she must have still taken it last night. She did not take any of her medications this morning including her oral hypertensives and her Depakote. She does note that she took some Benadryl earlier this morning. Physical Examination: Noted hypertension 169/104 heart rate of 90 respirations are 17 pulse ox 96% temperature 97.8 Gen: Well-nourished well-developed Head: Normocephalic atraumatic Eyes: Perrl EOMI ENT: TMs clear no rhinorrhea moist mucous membranes Neck: Supple no lymphadenopathy no JVD nontender CVS: Regular rate rhythm no murmurs normal S1-S2 Respiratory: No distress clear to auscultation bilaterally chest nontender Abdomen: Soft nontender nondistended normal bowel sounds no masses Back: Nontender Extremity: Nontender no edema Skin: Normal color no rash Neuro: alert orientated 3 CN II-XII intact normal strength sensation reflexes gait cerebellar Psych: Agitated but cooperative. She denies suicidal homicidal ideation Test Results: CBC CMP fasting 3.3. EKG is normal sinus and unchanged. Toxicology workup showed a valproic acid of 34. Emergency Department Course and Treatment: I think that a lot of this has to do with the patient's mental health. Probably some combination with changing of medications. She does not wish to speak with mental health. She does not wish to be psychiatrically hospitalized. She does not wish to see her psychiatrist. She does wish to stop her medication. She is advised that if she does stop her medication that she should in fact actually stop it and not continue to take it and wonder why she is experiencing her side effects that she believes is coming from the medicine. At this point patient will be discharged home. The patient was advised that she should not abruptly sever ties with her psychiatrist instead develop a plan psychiatrist. She was advised that she should talk to her doctors before abruptly stopping her medications. Impression: 1. Bipolar disorder This note was generated with [employer] dictation software. It may contain incorrect words, spelling, and punctuation that were not noted in review of the chart prior to signing ED Disposition - Plan for ED Patient: Disposition: Home or Assisted Living Chief Complaint: General Illness Instructions: ED Weakness UKO Referrals: Esperanza Baird MD [Primary Care Provider] - As soon as possible What to do if you have Problems For any increased pain, shortness of breath, bleeding, nausea or vomiting, chest pain, or any unexpected problems, contact your Primary Care Provider. Call [facility] ([phone]) or report to the closest Emergency Room. Call 911 if necessary. 06/26/18 0802 <Electronically signed by Austin Castaneda DO> Date Austin Castaneda DO Cosigner Signature (If Indicated): Date CC: Esperanza Baird MD URINE DRUG SCREEN Collected: 06/24/2018 Status: F Source: [place] (VISTA) 9:15 AM [facility] REPOSITORY TYPE CODE TESTS RESULT OUT OF RANGE REFERENCE UNITS LAB L505.0075 TO BE Normal CONFIRMED Result Comment: CONFIRMATORY TESTING FOR ALL POSITIVE URINE DRUG SCREEN RESULTS WILL ONLY BE SENT OUT UPON PHYSICIAN ORDER. VISTA Urine Drug Screen methods provide only preliminary analytical test results. A more specific alternate chemical method must be used in order to obtain a confirmed analytical result. Gas chromatography/mass spectrometery (GC/MS) is the preferred confirmatory method. Clinical consideration and professional judgement should be applied to any drug of abuse test result, particularly when preliminary positive results are used. URINE TCA TESTING MUST BE ORDERED SEPARATELY. USE TEST MNEMONIC: [facility] LAB L505.5005 VISTA UDS PH 6 Normal LAB L505.5015 <1000 ng/mL AMPHETAMINES Normal NEGATIVE LAB L505.5025 < 200 ng/mL BARBITIURATES Normal NEGATIVE LAB L505.5035 < 200 ng/mL BENZODIAZIPINE Normal NEGATIVE LAB L505.5045 < 300 ng/mL COCAINE Normal NEGATIVE LAB L505.5055 < 500 ng/mL ECSTACY Normal NEGATIVE LAB L505.5065 < 300 ng/mL METHADONE Normal NEGATIVE LAB L505.5075 < 300 ng/mL OPIATES Normal NEGATIVE LAB L505.5085 < 25 ng/mL PCP Normal NEGATIVE LAB L505.5095 < 50 ng/mL THC Normal NEGATIVE Performed By: #### L505.5000 #### [facility] [address] [place], [address] CBC W/DIFF, AUTOMATED Collected: 06/24/2018 Status: F Source: [place] 9:10 AM [facility] REPOSITORY TYPE CODE TESTS RESULT OUT OF RANGE REFERENCE UNITS LAB L100.1000 4.4-11.0 K/mm3 Normal WBC 8.6 LAB L100.1200 4.2-5.4 M/mm3 Normal RBC 4.48 LAB L100.1300 12.0-15.0 g/dl Normal HGB 13.3 LAB L100.1400 37-47 % Normal HCT 41.5 LAB L100.1500 81-99 fL Normal MCV 92.6 LAB L100.1600 27.0-32.0 pg Normal MCH 29.7 LAB L100.1700 32-36 g/gl Normal MCHC 32.0 LAB L100.1810 11.6-14.6 % Normal RDW CV 13.5 LAB L100.1820 35.1-43.9 fl High RDW SD 44.5 LAB L100.1900 150-450 K/mm3 High PLT 509 LAB L100.2000 6.2-12.0 fl Normal MPV 9.6 LAB L100.2100 47-70 % Normal NEUT% 69.0 LAB L100.2200 19-41 % Low LY% 17.8 LAB L100.2300 0-10 % High MONO% 10.5 LAB L100.2400 0-5 % Normal EO% 1.9 LAB L100.2500 0-1 % Normal BASO% 0.5 LAB L100.2550 0.0-0.9 % Normal IM GRAN % 0.300 Result Comment: IG% - Immature Granulocytes (promyelocytes, myelocytes and metamyelocytes) > 1% indicates that a LEFT SHIFT is Present. LAB L100.2620 2.0-7.7 X10 3/uL Normal Absolute Neut 6.0 LAB L100.2720 0.83-4.51 X10 3/ul Normal Absolute Lymph 1.53 Performed By: #### L100.0100 #### [facility] [address] [place], [place], [address] COMPREHENSIVE METABOLIC Collected: 06/24/2018 Status: F Source: [facility] 9:10 AM [facility] REPOSITORY TYPE CODE TESTS RESULT OUT OF RANGE REFERENCE UNITS LAB L501.0100 74-106 mg/dL Normal GLU 86 Result Comment: Please note revised GLUCOSE reference range effective 2017. LAB L501.1000 7-18 mg/dL Normal BUN 13 LAB L501.1100 0.55-1.02 mg/dL Normal CREAT,SERUM 0.68 Result Comment: The validity of the calculated GFR AND GFRAA in patients over 70 years has not been determined. Clinical correlation is essential. LAB L501.1110 >60 mL/min Normal EST GFR 91 Result Comment: Non- GFR Calc LAB L501.1115 >60 mL/min Normal EST GFR - AA 110 Result Comment: GFR Calc LAB L501.1255 ml/min Normal Estimated CRCL 65.23 LAB L501.1300 10-20 RATIO Normal BUN/CRE 19.0 LAB L501.1500 6.4-8. g/dL Normal 2 T PROT 7.4 LAB L501.1800 3.2-5. g/dL Normal 0 ALB 3.6 LAB L501.1950 2.2-4. g/dL Normal 2 GLOB 3.8 LAB L501.2000 0.9-2. RATIO Normal 4 A/G 0.9 LAB L501.2200 8.5-10 mg/dL Normal .1 CA 9.0 LAB L501.4100 15-37 U/L Normal AST 26 LAB L501.4305 45-117 U/L Normal ALK P 97 LAB L501.4405 13-56 U/L Normal ALT 23 LAB L501.4600 0.20-1 mg/dL Normal .00 T BILI 0.40 LAB L501.5300 136-14 mmol/L Normal 5 NA 142 LAB L501.5600 3.5-5. mmol/L Low 1 K 3.3 LAB L501.5900 98-107 mmol/L Normal CL 105 LAB L501.6100 21.0-3 mmol/L Normal 2.0 CO2 26.0 LAB L501.6200 5-15 Normal GAP 11 Performed By: #### L500.4050, L501.2450, L501.4010 #### [facility] [address] [place], [place], [address] LIPASE Collected: 06/24/2018 Status: F Source: [place] 9:10 AM [facility] REPOSITORY TYPE CODE TESTS RESULT OUT OF REFERENCE UNITS RANGE LAB L501.2450 73-393 U/L Low LIPASE 69 Performed By: #### L500.4050, L501.2450, L501.4010 #### [facility] [address] [place], [place], [address] TROPONIN-I Collected: 06/24/2018 Status: F Source: [place] 9:10 AM [facility] REPOSITORY TYPE CODE TESTS RESULT OUT OF RANGE REFERENCE UNITS LAB L501.4010 <0.045 ng/mL Normal < 0.015 TROPONIN-I Result Comment: TROPONIN-I EXPECTED VALUES <0.045 Negative 0.045 - 0.590 Consistent with Cardiac Damage > OR = 0.600 Critical Value Not every elevated troponin is indicative of MA. These values should be used with clinical judgement in examining the patient's clinical picture for diagnosis. To establish a diagnosis of MA versus myocardial injury, there must be a demonstrated rise and/or fall in the troponin values, in addition to ischemic symptoms, EKG changes, new regional wall motion abnormality, and/or angiographical evidence. PLEASE NOTE: REFERENCE RANGES EDITED 18 Performed By: #### L500.4050, L501.2450, L501.4010 #### [facility] [address] [place], [address] URINALYSIS, COMPLETE Collected: 06/24/2018 Status: F Source: [place] 9:10 AM [facility] REPOSITORY Order Comment: How was Urine Obtained? CLEAN CATCH TYPE CODE TESTS RESULT OUT OF RANGE REFERENCE UNITS LAB L400.3000 Yellow COLOR Normal Yellow LAB L400.3050 Clear Normal CLARITY Clear LAB L400.3200 Normal mg/dl Normal GLUCOSE, UR Normal LAB L400.3300 Negative mg/dL High BILIRUBIN URINE 1 Result Comment: COLOR OF URINE MAY AFFECT DIPSTICK RESULTS. LAB L400.3400 Negative mg/dl High KETONE UR 5 LAB L400.3465 1.002-1.030 Normal SP.GR. DIPSTX 1.010 LAB L400.3550 5.0 - 8.0 pH Normal UR 6.5 LAB L400.3600 Negative mg/dl High PROT DIPSTX 15 LAB L400.3700 Normal mg/dl High UROBILI 8 LAB L400.3750 Negative Normal NITRITE UR Negative LAB L400.3780 Negative /ul High OCCULT 10 BLOOD-UR LAB L400.3800 Negative /ul High LEUK ESTERASE 25 LAB L400.4050 0-5 /hpf Normal WBC 0-5 SEEN LAB L400.4100 0-5 /hpf Normal RBC-UA 0-5 SEEN LAB L400.4150 5-10 /hpf Normal SQUAM EPI 5-10 SEEN LAB L400.4300 None Seen /hpf Normal BACTERIA RARE LAB L400.4350 <or=2+ /hpf Normal MUCUS, URINE 2+ Performed By: #### L400.0001 #### [facility] [place], [address] VALPROIC ACID Collected: 06/24/2018 Status: F Source: [place] ([place]PAKENE) LEVEL 9:10 AM [facility] REPOSITORY TYPE CODE TESTS RESULT OUT OF REFERENCE UNITS RANGE LAB L501.8100 50-100 ug/mL Low VALPROIC ACID 34 Performed By: #### L501.8100, L501.9100 #### [facility] [address] [facility] [place], [address] ALCOHOL, BLOOD Collected: 06/24/2018 Status: F Source: [place] (MEDICAL)-SERUM 9:10 AM [facility] REPOSITORY TYPE CODE TESTS RESULT OUT OF RANGE REFERENCE UNITS LAB L501.9100 mg/dL Normal SERUM < 3.0 ETOH Result Comment: The serum:whole blood ethanol ratio is approximately 1.14 and varies slightly with hematocrit. Medical Alcohol reference interval and critical value in non-tolerant individuals; 50 - 100 Impairment 100 Intoxication 100 - 250 Severe Poisoning 250 - 400 Deep/possible fatal coma Performed By: #### L501.8100, L501.9100 #### [facility] [address] [place], [address] ONCOLOGY VISIT REPORT Observed: 06/23/2018 Status: F Source: [place] 4:15 PM [facility] REPOSITORY [facility] [address] [place] [address] OFFICE VISIT Date of Service: 06/23/18 1313 MR#: [id number] Acct: [id number] Name: GIOVANA POWELL Rep #: [id number] : 1950 From: Urban Russell MD Age/Sex: 67/F Location: OMD Status: Signed Subjective - Date of Service Date of Service:: 06/23/18 - Chief Complaint F/u for Increased Platelets. - History of Present Illness 67y.o.woman was found to have to increased Platelets since Feb, 2018. Platelet count on 05/04/2018 was 551 so she was referred for further evaluation. JAK2 was requested and comes in for follow up. She feels tired, denies bleeding disorder. - Past Medical/Social History Past Medical History Cancer: Skin cancer Social History Smoking Status Current every day smoker Review of Systems Constitutional:: Reports: Fatigue. Denies: Fever, Sweats Cardiovascular:: Denies: Chest pain, Palpitations, Dyspnea on exertion, Orthopnea, PND, Shortness of breath Respiratory: Denies: Cough, Hemoptysis, Shortness of Breath, Wheezing Gastrointestinal:: Denies: Abdominal pain, Nausea, Vomiting, Diarrhea, Constipation, Hematochezia Genitourinary: Denies: Dysuria, Hematuria, 15, Flank pain Musculoskeletal:: Denies: Back pain, Myalgia, Arthralgia Skin: Denies: Rash, Skin Changes, Wounds Neurological:: Reports: Dizziness - after starting new Psychiatric drug. 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 Discussed diagnosis, indications for therapy including PLT greater than 1 million and strokes. Plan is to do observation for now. RTC 6 months with CBC/CMP. Medications: Prescriptions This Visit Medication Instructions Recorded Albuterol Inhaler [Ventolin Hfa 1 puff INHALATION Q4H PRN PRN 05/20/18 (SP)] Primary Care Provider: Esperanza Baird MD Referring Provider: Esperanza Baird MD - Problem List (1) Thrombocytosis Status: Chronic Code Visit Office Visits / Consults: [id number] OV L4 Est 06/23/18 1615 <Electronically signed by Urban Russell MD> Date Urban Russell MD Cosigner Signature: Date (if applicable) CC: Esperanza Baird MD EMERGENCY DEPARTMENT Observed: 06/20/2018 Status: F Source: [place] SUMMARY 3:12 PM [facility] REPOSITORY [facility] Medical Records Department [address] [place] [address] Emergency Department Summary 06/20/18 1125 MR#: [id number] Acct: [id number] Name: GIOVANA POWELL Rep #: [id number] : 1950 67 From: Leonardo Fernandez MD PCP: Esperanza Baird MD Status: DEP ER - ER Visit Summary Date of Service: 06/20/18 Chief Complaint: [] Very sleepy took extra sleeping pills to help her sleep History of Present Illness: The patient is a 67 F [] for behavioral health disorder bipolar disorder, apparently she was to go to [facility] today. She is brought into the emergency room by a reverend who is known her for a long time because she seems very sleepy. The patient denies any complaints of any kind denies head neck chest or abdominal pain her bipolar condition is stable she reports she is taking her medications keep all of her appointments this is confirmed by the Reverend, she apparently was woken up multiple times last night by her son so she took an extra sleeping pill this morning and then when she got up to go to [facility]od[facility] she was very tired she kept falling asleep in orthodoxy and she was brought in. Again she has no complaints of any kind she is awake alert easy easily arousable answers questions appropriately indicating nothing is bothering her Physical Examination: [] Vital signs are within normal range she is awake and alert easily arousable she has slight hoarseness hoarseness or voice it is not unusual HEENT exam is normal neck supple lungs clear heart tones normal abdomen soft nontender awake alert moving all 4 extremities she lives with her son who she states is a recovering cocaine addict she does not use or illicit drugs she is not homicidal or suicidal she did not do anything to harm herself Wants no therapy from the emergency department or workup, she was only brought in by the Reverend she was not headed to the emergency department by her own, she understands why she is here she appreciates the concern indicates she just wants to go home and sleep, and again she is awake alert airways intact there is no signs of psychomotor agitation delirium or any other abnormal Observe the patient in the emergency department provided her oral fluids I spoke with Erin at length who is comfortable taking the patient home to continue outpatient management, I cautioned the patient to only use a sleeping medication at bedtime and she agrees Test Results: [] Emergency Department Course and Treatment: [] Treatment Plan: [] Disposition: [] Home stable Impression: [] Excessive sleepiness related to overusing sleeping pill This note was generated with [employer] dictation software. It may contain incorrect words, spelling, and punctuation that were not noted in review of the chart prior to signing ED Disposition - Plan for ED Patient: Chief Complaint: General Illness Instructions: ED Manic Depression Referrals: Esperanza Baird MD [Primary Care Provider] - What to do if you have Problems For any increased pain, shortness of breath, bleeding, nausea or vomiting, chest pain, or any unexpected problems, contact your Primary Care Provider. Call [facility] ([phone]) or report to the closest Emergency Room. Call 911 if necessary. 06/20/18 1512 <Electronically signed by Leonardo Fernandez MD> Date Leonardo Fernandez MD Cosigner Signature (If Indicated): Date CC: Esperanza Baird MD DISCHARGE INSTRUCTION Observed: 06/20/2018 Status: F Source: [place] 11:30 AM [facility] Medical Records Department [address] [place] [address] Discharge Instruction 06/20/18 1130 MR#: [id number] Acct: [id number] Name: GIOVANA POWELL Rep #: [id number] : 1950 67 From: Leonardo Fernandez MD PCP: Esperanza Baird MD Status: PRE ER ED Disposition - Plan for ED Patient: Chief Complaint: General Illness Instructions: ED Manic Depression Referrals: Esperanza Baird MD [Primary Care Provider] - What to do if you have Problems For any increased pain, shortness of breath, bleeding, nausea or vomiting, chest pain, or any unexpected problems, contact your Primary Care Provider. Call [facility] ([phone]) or report to the closest Emergency Room. Call 911 if necessary. 06/20/18 1130 <Electronically signed by Leonardo Fernandez MD> Date Leonardo Fernandez MD Cosigner Signature (If Indicated): Date CC: Esperanza Baird MD DISCHARGE INSTRUCTION Observed: 06/20/2018 Status: F Source: [place] 11:29 AM [facility] REPOSITORY [facility] Medical Records Department [address] [place] [address] Discharge Instruction 06/20/18 1128 MR#: [id number] Acct: [id number] Name: SHANICEMOLLYGIOVANA Rep #: [id number] : 1950 67 From: Leonardo Fernandez MD PCP: Esperanza Baird MD Status: PRE ER ED Disposition - Plan for ED Patient: Chief Complaint: General Illness Instructions: ED Manic Depression Referrals: Esperanza Baird MD [Primary Care Provider] - What to do if you have Problems For any increased pain, shortness of breath, bleeding, nausea or vomiting, chest pain, or any unexpected problems, contact your Primary Care Provider. Call [facility] ([phone]) or report to the closest Emergency Room. Call 911 if necessary. 06/20/18 1129 <Electronically signed by Leonardo Fernandez MD> Date Leonardo Fernandez MD Cosigner Signature (If Indicated): Date CC: Esperanza Baird MD INTERNAL MEDICINE Observed: 06/16/2018 Status: F Source: [place] OFFICE VISIT 4:18 PM [facility] [address] [place] [address] OFFICE VISIT Date of Service: 06/16/18 MR#: [id number] Acct: [id number] Name: GIOVANA POWELL Rep #: [id number] : 1950 Provider: Tarun Nino NP Age/Sex: 67/F Location: [facility] Status: Signed Intake Vital Signs06/16/18 Height 5 ft 1 in Intake Visit Reasons: IN MANIC EPISODE Chief Complaint: manic episode Is patient in pain?: Yes (generalized, head to toe) Pain scale (1-10): 10 Allergies lurasidone [From Latuda] Allergy (Verified 05/20/18 15:52) Other naproxen Allergy (Verified 05/20/18 15:52) Hives paliperidone [From Invega] Allergy (Verified 05/20/18 15:52) increased psychiatric symptoms trazodone Allergy (Verified 05/20/18 15:52) Other theophylline Adverse Reaction (Verified 05/20/18 15:52) Other SLOBID Adverse Reaction (Uncoded 03/13/18 00:15) Other Medications Lisinopril [Zestril] 20 mg PO DAILY 03/24/17 [History Confirmed 06/16/18] Divalproex (ER) [Depakote ER] 500 mg PO BID 06/20/17 [History Confirmed 06/16/18] Pravastatin [Pravachol] 40 mg PO QHS 12/18/17 [History Confirmed 06/16/18] Buprenorphine HCl/Naloxone HCl [Suboxone 8 mg-2 mg Sl Film] 2 ea SL DAILY 12/24/17 [History Confirmed 06/16/18] cholecalciferol (vitamin D3) 50,000 unit capsule 50,000 unit PO QWEEK #8 cap 01/06/18 [Rx Confirmed 06/16/18] camphor-menthol 0.5 %-0.5 % lotion 1 applic TOPICAL BID-TID PRN #222 ml 04/28/18 [Rx Confirmed 06/16/18] disability placard #1 [id number] 04/28/18 [Rx Confirmed 06/16/18] clonidine HCl 0.1 mg tablet 0.1 mg PO TID #90 tab 05/11/18 [Rx Confirmed 06/16/18] Albuterol Inhaler [Ventolin Hfa (SP)] 1 puff INHALATION Q4H PRN PRN 05/20/18 [History Confirmed 05/20/18] calcium carbonate 600 mg calcium (1,500 mg) tablet 600 mg PO BID #60 tab 06/08/18 [Rx Confirmed 06/16/18] hydralazine 50 mg tablet 50 mg PO TID #90 tab 06/08/18 [Rx Confirmed 06/16/18] metoprolol tartrate 25 mg tablet 25 mg PO DAILY #30 tab 06/08/18 [Rx Confirmed 06/16/18] sennosides 8.6 mg-docusate sodium 50 mg tablet 1 tab PO BID PRN #60 tab 06/08/18 [Rx Confirmed 06/16/18] famotidine 10 mg tablet 10 mg PO DAILY #90 tab 06/16/18 [Rx Confirmed 06/16/18] ibuprofen 200 mg tablet 200 mg PO BID PRN #60 tab 06/16/18 [Rx Confirmed 06/16/18] iloperidone 1 mg tablet 1 mg PO QDAY tab 06/16/18 [History Confirmed 06/16/18] Post menopausal: Yes PFSH Medical History History of skin cancer (Acute) Dissociative identity disorder (Chronic) COPD (chronic obstructive pulmonary disease) (Acute) History of UTI (Acute) Kidney failure (Acute) Surgical History History of 3 sections (Acute) History of hernia repair (Acute) H/O hernia repair (Inactive) H/O: hysterectomy (Inactive) History of (Inactive) Family History Brother Colon cancer Aunt Obesity Sister Obesity Mother Rheumatoid arthritis Social History Smoking Status: Current every day smoker how long ago did patient quit smokin alcohol intake: never substance use type: does not use HPI HPI Chief Complaint: manic episode Details: GIOVANA POWELL, is a 67 F who presents to the office today for an acute visit of manic episode. She has a significant mental health history as listed above. Patient states that she has been having a manic episode for the past 14 days. She states that her psychiatrist Dr. Tirado recently placed her on Fanapt and that she has been doing well on this. She continues to see psychiatry and continues to go to the counseling center. She does state that since her manic episode occurred that last week she stopped taking all of her routine medications except her psychiatric medications. She states that she does not think that she needs on as many blood pressure medications so she discontinued all 4 of them. She notes that she has been off of them for a week now. She also notes being off of the pravastatin as well. She states that she has chronic pain and continues following with pain management and does state that she is having mental pain and that the only thing that relieves this is ibuprofen. She is requesting a prescription of [id number] ibuprofen to be called in to her pharmacy. She denies any other acute complaints at this time. She denies any chest pain or shortness of breath at this time ROS Const Constitutional: No body ache, chills, headache(s), weakness or fever(s) Eyes Eyes: No blurry vision, change in vision, eye pain or discharge ENT ENT: No headache(s), abnormal hearing, ear pain, ear pressure, tinnitus, dizziness/vertigo or balance problems Resp Respiratory: No cough, shortness of breath or wheezing Cardio Cardiology: No chest pain at rest, shortness of breath, dyspnea on exertion or palpitations Gastro GI: No abdominal pain or bloating Musc Musculoskeletal: Positive for back pain and joint pain Neuro Neurology: Positive for behavioral changes; no headache(s), weakness, abnormal hearing or confusion Psych Psychiatric: No confusion, Positive for behavioral changes, Positive for difficulty concentrating, Positive for panic attacks, No irritability, No depression, No paranoia, No Thoughts of harming yourself/Others Aller/Imm Allergy/Immunologic: No wheezing Exam Const General: cooperative, comfortable, no acute distress, disheveled Nutritional Appearance: average body habitus, well nourished Orientation: alert, oriented x3 Limitations: mental status not altered Resp Effort AND Inspection: normal respiratory effort, able to speak in complete sentences, normal respiratory pattern, symmetric chest movement, no audible wheezes, no cough Auscultation: Bilateral: Clear to Auscultation Cardio Palpation: normal PMI Rate: regular rate Heart Sounds: S1 normal, S2 normal, normal S1 and S2, no click, no gallops, no murmurs, no rubs Skin General: no rashes or lesions noted, elasticity normal, turgor normal Lesions: no lesions Rashes: no rashes Neuro General: alert, awake, oriented x3, CN's II-XI intact bilaterally Speech: speech normal Gait: normal gait Motor: muscle tone normal throughout Extrem General: normal to inspection, normal gait, no edema, no pedal edema Psych Appearance: disheveled Mental Status: mental status grossly normal Mood: manic mood, expansive Affect: animated Speech and Movement: speech clear Attitude: cooperative Thought Process: flight of ideas Thought Content: normal, no hallucinations, no homicidality, no ideas of reference Judgment: fair Assessment AND Plan 1. Bipolar disorder F31.9 Plan Patient is an episode of linnea at this time and she is following closely with psychiatry and the same center. Her medications were recently adjusted and per patient she is feeling better and her linnea is under control. She will continue to follow- up with Dr. Tirado and her counselors. No thoughts of harming self or others at this time. Discussed red flag symptoms that require urgent medical attention. 2. Essential hypertension I10 Plan Hypertension: Blood pressure is suboptimal at this time. Will make changes to current medication regimen which include the addition of restarting her metoprolol, lisinopril, and hydralazine. Instructed patient on the deleterious effects of stopping all of her medications abruptly without notifying a provider. Patient is persistent states she will not take more than 3 blood pressure medications, therefore clonidine will be discontinued. She has not been taking any blood pressure medications for the past week.. Baseline labs reviewed. Educated patient to keep a log of their blood pressures at home. Discussed risk factor reduction and lifestyle modifications. Discussed dietary changes that should be considered which include reducing the amount of sodium intake. Patient instructed to follow up in 2 weeks for hypertension follow up visit. Plan Detail Other Medications New: Discontinued: On Hold: Follow Up 2 weeks or sooner if needed Coding Level of Care Code Off vis,est,level 3 Diagnoses Bipolar disorder F31.9 Current bipolar episode type: manic Essential hypertension I10 06/16/18 5488 <Electronically signed by Tarun DAVIDSON> Date Tarun DAVIDSON Cosigner Signature: Date (if applicable) CC: 12 LEAD ELECTROCARDIOGRAM Observed: 06/10/2018 Status: F Source: [place] 1:35 PM [facility] REPOSITORY [facility] Cardiovascular Services [address] [place] [address] 12 Lead EKG 06/08/18227 MR#: [id number] Acct: [id number] Name: GIOVANA POWELL Rep #: [id number] : 1950 67 From: Tom Roper MD Attending Dr: Status: DEP ER Ordering Dr: Devang Nava MD Date: 06/08/18 Location: ED Sex: F C Admitted: Test Reason : ANXIETY Blood Pressure : / mmHG Vent. Rate : 079 BPM Atrial Rate : 079 BPM P-R Int : 156 ms QRS Dur : 090 ms QT Int : 370 ms P-R-T Axes : 066 072 051 degrees QTc Int : 424 ms Normal sinus rhythm Normal ECG Confirmed by JOSE SEALS, TOM ([id number]), editor magazine DONATO CISSE ([id number]) on 06/10/2018 1:34:55 PM Referred By: ELIJAH Confirmed By:TOM ROPER MD 06/10/18 133 Date Tom Roper MD CC: DEVANG NAVA MD; Esperanza Baird MD Signed EMERGENCY DEPARTMENT Observed: 06/08/2018 Status: F Source: [place] SUMMARY 4:46 AM [facility] REPOSITORY [facility] Medical Records Department [address] [place] [address] Emergency Department Summary 06/08/18211 MR#: [id number] Acct: [id number] Name: GIOVANA POWELL Rep #: [id number] : 1950 67 From: Devang Nava MD PCP: Esperanza Baird MD Status: DEP ER History of Present Illness Chief Complaint: Anxiety Informant: Patient Onset: Days - 3 Context: Gradual Onset Timing: Waxes and wanes - but fairly constant Quality: pressure/heaviness Location: substernal Current Severity: gone Maximum Severity: Moderate Worsened by: being more anxious/panicky Relieved by: calming down, such as now Associated Symptoms: sob Narrative: Patient states she has been feeling very panicky off and on for the past 3 days, regarding some medical records where someone circled something that was not true, and they will not let me see them. She has several psychiatric diagnoses, including dissociative personality disorder, bipolar disorder, posttraumatic stress disorder, and anxiety disorder. She is in counseling and using her counseling techniques to calm herself down today, she is feeling better now. However for the past 3 days she has been having chest pressure and shortness of breath and racing heartbeat, she is pretty sure it is because of her panic gain and anxiety over these scenarios, but wants to make sure she is okay. She states the chest discomfort is gone at this time but was there the majority of the past 3 days. No known history of heart disease. - Past Medical History (1) PTSD (post-traumatic stress disorder) Status: Chronic (2) Bipolar disorder Status: Chronic (3) COPD (chronic obstructive pulmonary disease) Status: Chronic (4) Hyperlipidemia Status: Chronic (5) Hypertension Status: Chronic (6) Opioid dependence Status: Chronic (7) Tobacco abuse Status: Chronic Past Medical History - Allergies and Home Meds Allergies/Adverse Reactions: Allergies lurasidone [From Latuda] Allergy (Verified 05/20/18 15:52) Other naproxen Allergy (Verified 05/20/18 15:52) Hives paliperidone [From Invega] Allergy (Verified 05/20/18 15:52) increased psychiatric symptoms trazodone Allergy (Verified 05/20/18 15:52) Other theophylline Adverse Reaction (Verified 05/20/18 15:52) Other SLOBID Adverse Reaction (Uncoded 03/13/18 00:15) Other Primary Care Physician: Esperanza Baird MD [Primary Care Provider] - 3-5 Days if not improving Surgical History: hysterectomy, - - C-sections - 3, abdominal hysterectomy, hernia repair with mesh?. Smoking Status: Current every day smoker Drugs: Cocaine - none recent, Heroin - none recent - Family History Maternal Family History: Family History (Last Updated 05/20/18 @ 15:33 by Cassandra Blanco) Brother Colon cancer Aunt Obesity Sister Obesity Mother Rheumatoid arthritis Family History: Reports: No pertinent history Paternal Family History: Family History (Last Updated 05/20/18 @ 15:33 by Cassandra Blanco) Brother Colon cancer Aunt Obesity Sister Obesity Mother Rheumatoid arthritis Family History: Reports: No pertinent history Sibling Family History: Family History (Last Updated 05/20/18 @ 15:33 by Cassandra Blanco) Brother Colon cancer Aunt Obesity Sister Obesity Mother Rheumatoid arthritis Family History: Reports: Cancer Review of Systems All systems negative except as indicated Cardiovascular: Reports: Chest pain, Palpitations, Heart racing Respiratory: Reports: Dyspnea Psych: Reports: Anxiety. Denies: Depression, Suicidal thoughts, Suicidal ideations Physical Exam Vital Signs/Narrative: Vital Signs 06/08/18 01:29 17 141/98 H 06/08/18 01:23 98.2 F 105 H 20 H 157/99 H 98 Inital Vital Signs reviewed: Yes General: Well nourished, Well developed Head: Normocephalic, Atraumatic Eyes: Perrl, EOMI ENT: Moist mucous membranes, No rhinorrhea Neck: Supple, Nontender Cardiovascular: Regular rate, Regular rhythm, No murmurs Respiratory: No distress, CTA bilaterally, Chest nontender Abdomen: Soft, Nontender, Nondistended, Normal bowel sounds Back: Nontender, Normal Inspection Extremities: Nontender, No edema Skin: Normal color, No rash Neurological: Alert, Oriented x3, Cranial nerves II-XII grossly intact, Normal Strength, Normal Sensation Psychological: - - anxious, almost tearful, controlled Diagnostic/Tx/Re-eval Chest X-Ray - ED: 1 View, Read by ED Physician, No Acute Disease Laboratory Tests WBC 10.4 RBC 4.61 Hgb 13.7 Hct 41.9 MCV 90.9 MCH 29.7 MCHC 32.7 RDW 13.5 RDW Differential 44.5 H - Rhythm Strip Rhythm Strip: Sinus Rhythm Rate: 80 Ectopy: None - EKG Initial EKG Interpretation: Sinus Rhythm, No Acute Injury Pattern, - - nml axis, nml EKG Prior: Unchanged - Medical Decision Making Workup is negative for acute cardiac disease. Her x-ray shows no acute abnormality. She is reassured. She was offered something for anxiety and declines. She is feeling better. Encouraged to follow-up with her doctor. ED Disposition - Plan for ED Patient: Disposition: Home or Assisted Living Chief Complaint: Anxiety Diagnosis: Chest pain, unspecified, Anxiety attack Instructions: ED Panic Attack Referrals: Esperanza Baird MD [Primary Care Provider] - 3-5 Days if not improving What to do if you have Problems For any increased pain, shortness of breath, bleeding, nausea or vomiting, chest pain, or any unexpected problems, contact your Primary Care Provider. Call [facility] ([phone]) or report to the closest Emergency Room. Call 911 if necessary. 06/08/18 0446 <Electronically signed by Devang Nava MD> Date Devang Nava MD Cosigner Signature (If Indicated): Date CC: Esperanza Baird MD CBC W/DIFF, AUTOMATED Collected: 06/08/2018 Status: F Source: [place] 2:20 AM [facility] REPOSITORY TYPE CODE TESTS RESULT OUT OF RANGE REFERENCE UNITS LAB L100.1000 4.4-11.0 K/mm3 Normal WBC 10.4 LAB L100.1200 4.2-5.4 M/mm3 Normal RBC 4.61 LAB L100.1300 12.0-15.0 g/dl Normal HGB 13.7 LAB L100.1400 37-47 % Normal HCT 41.9 LAB L100.1500 81-99 fL Normal MCV 90.9 LAB L100.1600 27.0-32.0 pg Normal MCH 29.7 LAB L100.1700 32-36 g/gl Normal MCHC 32.7 LAB L100.1810 11.6-14.6 % Normal RDW CV 13.5 LAB L100.1820 35.1-43.9 fl High RDW SD 44.5 LAB L100.1900 150-450 K/mm3 High PLT 479 LAB L100.2000 6.2-12.0 fl Normal MPV 9.4 LAB L100.2100 47-70 % Normal NEUT% 70.0 LAB L100.2200 19-41 % Normal LY% 19.9 LAB L100.2300 0-10 % Normal MONO% 8.2 LAB L100.2400 0-5 % Normal EO% 1.2 LAB L100.2500 0-1 % Normal BASO% 0.2 LAB L100.2550 0.0-0.9 % Normal IM GRAN % 0.500 Result Comment: IG% - Immature Granulocytes (promyelocytes, myelocytes and metamyelocytes) > 1% indicates that a LEFT SHIFT is Present. LAB L100.2620 2.0-7.7 X10 3/uL Normal Absolute Neut 7.3 LAB L100.2720 0.83-4.51 X10 3/ul Normal Absolute Lymph 2.06 Performed By: #### L100.0100 #### [facility] [address] [place], [address] BASIC METABOLIC Collected: 06/08/2018 Status: F Source: [place] PROFILE (BMP) 2:20 AM [facility] REPOSITORY TYPE CODE TESTS RESULT OUT OF RANGE REFERENCE UNITS LAB L501.0100 74-106 mg/dL High GLU 107 Result Comment: Fasting Glucose result from 100 to 125 mg/dL suggests IMPAIRED HOMEOSTASIS per A.D.A. criteria. Please note revised GLUCOSE reference range effective 2017. LAB L501.1000 7-18 mg/dL Normal BUN 18 LAB L501.1100 0.55-1.02 mg/dL Normal CREAT,SERUM 0.71 Result Comment: The validity of the calculated GFR AND GFRAA in patients over 70 years has not been determined. Clinical correlation is essential. LAB L501.1110 >60 mL/min Normal EST GFR 88 Result Comment: Non- GFR Calc LAB L501.1115 >60 mL/min Normal EST GFR - AA 106 Result Comment: GFR Calc LAB L501.1255 ml/min Normal Estimated CRCL 59.61 LAB L501.1300 10-20 RATIO High BUN/CRE 25.4 LAB L501.2200 8.5-10 mg/dL Normal .1 CA 9.1 LAB L501.5300 136-14 mmol/L Normal 5 NA 139 LAB L501.5600 3.5-5. mmol/L Normal 1 K 3.6 LAB L501.5900 98-107 mmol/L High CL 108 LAB L501.6100 21.0-3 mmol/L Normal 2.0 CO2 24.0 LAB L501.6200 5-15 Normal GAP 7 Performed By: #### L500.2500, L501.4010 #### [facility] [address] [place], [address] TROPONIN-I Collected: 06/08/2018 Status: F Source: [place] 2:20 AM [facility] REPOSITORY TYPE CODE TESTS RESULT OUT OF RANGE REFERENCE UNITS LAB L501.4010 <0.045 ng/mL Normal < 0.015 TROPONIN-I Result Comment: TROPONIN-I EXPECTED VALUES <0.045 Negative 0.045 - 0.590 Consistent with Cardiac Damage > OR = 0.600 Critical Value Not every elevated troponin is indicative of MA. These values should be used with clinical judgement in examining the patient's clinical picture for diagnosis. To establish a diagnosis of MA versus myocardial injury, there must be a demonstrated rise and/or fall in the troponin values, in addition to ischemic symptoms, EKG changes, new regional wall motion abnormality, and/or angiographical evidence. PLEASE NOTE: REFERENCE RANGES EDITED 18 Performed By: #### L500.2500, L501.4010 #### [facility] [address] [place], [address] CHEST PA AND LATERAL Observed: 06/08/2018 Status: F Source: [place] 2:12 AM [facility] REPOSITORY [facility] Imaging Services [address] [place] [id number] Chest PA and Lateral MR#: [id number] Acct: [id number] Name: GIOVANA POWELL Rep #: [id number] : 1950 F 67 From: Kevin Hansen MD PCP: Esperanza Baird MD Status: REG ER Study: Chest PA and Lateral Date of Exam: 06/08/18 Exam# [id number] Ordering Dr: Devang Nava MD STUDY: X-RAY CHEST REASON FOR EXAM: Female, 67 years old. Increased anxiety. Entering a manic phase. TECHNIQUE: Frontal and lateral views of the chest. COMPARISON: 03/13/2018. FINDINGS: There is hyperinflation of the lungs consistent with chronic obstructive lung disease (COPD). There are no demonstrated acute pulmonary infiltrates. There is no demonstrated pleural abnormality. Normal size heart. There calcified granulomas overlying the right hilum. Normal visualized pulmonary arteries. There is atherosclerotic calcification of the aortic arch with tortuosity. There are diffuse degenerative changes of the visualized thoracic spine. There is degenerative osteoarthritis of the bilateral shoulders. There is no demonstrated abnormality of the visualized soft tissue structures of the upper abdomen. RAD/Chest PA and Lateral IMPRESSION: COPD. Old granulomatous disease. No evidence for acute cardiopulmonary pathology. Electronically Signed: Kevin Hansen MD at 3:36 EDT , Service support , CC: DEVANG NAVA MD; Esperanza Baird MD Stallion Manager: Signed CBC W/DIFF, AUTOMATED Collected: 05/24/2018 Status: F Source: [place] 1:57 PM [facility] REPOSITORY Order Comment: Reason for Laboratory Test . TYPE CODE TESTS RESULT OUT OF RANGE REFERENCE UNITS LAB L100.1000 4.4-11.0 K/mm3 Normal WBC 11.0 LAB L100.1200 4.2-5.4 M/mm3 Normal RBC 4.51 LAB L100.1300 12.0-15.0 g/dl Normal HGB 13.6 LAB L100.1400 37-47 % Normal HCT 41.7 LAB L100.1500 81-99 fL Normal MCV 92.5 LAB L100.1600 27.0-32.0 pg Normal MCH 30.2 LAB L100.1700 32-36 g/gl Normal MCHC 32.6 LAB L100.1810 11.6-14.6 % Normal RDW CV 13.6 LAB L100.1820 35.1-43.9 fl High RDW SD 45.8 LAB L100.1900 150-450 K/mm3 High PLT 489 LAB L100.2000 6.2-12.0 fl Normal MPV 9.4 LAB L100.2100 47-70 % High NEUT% 70.2 LAB L100.2200 19-41 % Normal LY% 20.5 LAB L100.2300 0-10 % Normal MONO% 7.5 LAB L100.2400 0-5 % Normal EO% 1.3 LAB L100.2500 0-1 % Normal BASO% 0.2 LAB L100.2550 0.0-0.9 % Normal IM GRAN % 0.300 Result Comment: IG% - Immature Granulocytes (promyelocytes, myelocytes and metamyelocytes) > 1% indicates that a LEFT SHIFT is Present. LAB L100.2620 2.0-7.7 X10 3/uL Normal Absolute Neut 7.7 LAB L100.2720 0.83-4.51 X10 3/ul Normal Absolute Lymph 2.25 Performed By: #### L100.0100, L500.4050, L503.6030, L503.6550 #### [facility] [address] [place], [place], [address] COMPREHENSIVE METABOLIC Collected: 05/24/2018 Status: F Source: [facility] 1:57 PM [facility] REPOSITORY Order Comment: Reason for Laboratory Test . Comments: [id number] Mutation Analysis, Qualitativ TYPE CODE TESTS RESULT OUT OF RANGE REFERENCE UNITS LAB L501.0100 74-106 mg/dL High GLU 127 Result Comment: Fasting Glucose result greater than or equal to 126 mg/dL suggests DIABETES MELLITUS per A.D.A. criteria. Please note revised GLUCOSE reference range effective 2017. LAB L501.1000 7-18 mg/dL Normal BUN 13 LAB L501.1100 0.55-1.02 mg/dL Normal CREAT,SERUM 0.78 Result Comment: The validity of the calculated GFR AND GFRAA in patients over 70 years has not been determined. Clinical correlation is essential. LAB L501.1110 >60 mL/min Normal EST GFR 79 Result Comment: Non- GFR Calc LAB L501.1115 >60 mL/min Normal EST GFR - AA 96 Result Comment: GFR Calc LAB L501.1255 ml/min Normal Estimated CRCL 54.26 LAB L501.1300 10-20 RATIO Normal BUN/CRE 16.8 LAB L501.1500 6.4-8. g/dL Normal 2 T PROT 7.1 LAB L501.1800 3.2-5. g/dL Normal 0 ALB 3.3 LAB L501.1950 2.2-4. g/dL Normal 2 GLOB 3.8 LAB L501.2000 0.9-2. RATIO Normal 4 A/G 0.9 LAB L501.2200 8.5-10 mg/dL Normal .1 CA 8.7 LAB L501.4100 15-37 U/L Normal AST 15 LAB L501.4305 45-117 U/L Normal ALK P 111 LAB L501.4405 13-56 U/L Normal ALT 20 LAB L501.4600 0.20-1 mg/dL Normal .00 T BILI 0.20 LAB L501.5300 136-14 mmol/L Normal 5 NA 139 LAB L501.5600 3.5-5. mmol/L Normal 1 K 4.3 LAB L501.5900 98-107 mmol/L Normal CL 106 LAB L501.6100 21.0-3 mmol/L Normal 2.0 CO2 28.0 LAB L501.6200 5-15 Normal GAP 5 Performed By: #### L100.0100, L500.4050, L503.6030, L503.6550 #### [facility] [address] [place], [place], [address] IRON+IRON BINDING Collected: 05/24/2018 Status: F Source: [facility] 1:57 PM [facility] REPOSITORY Order Comment: Reason for Laboratory Test . Comments: [id number] Mutation Analysis, Qualitativ TYPE CODE TESTS RESULT OUT OF RANGE REFERENCE UNITS LAB L503.6075 250-450 ug/dL TIBC Normal 369 LAB L503.6150 50-170 ug/dL Low IRON 40 LAB L503.6250 15.0-55.0 % Low IRON SATURATION 10.8 Performed By: #### L100.0100, L500.4050, L503.6030, L503.6550 #### [facility] [address] [place], [address] FERRITIN Collected: 05/24/2018 Status: F Source: [place] 1:57 PM [facility] REPOSITORY Order Comment: Reason for Laboratory Test . Comments: [id number] Mutation Analysis, Qualitativ TYPE CODE TESTS RESULT OUT OF RANGE REFERENCE UNITS LAB L503.6550 8-252 ng/mL Normal FERRITIN 15 Performed By: #### L100.0100, L500.4050, L503.6030, L503.6550 #### [facility] [address] 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 Interpretation of this result should be made in the context of other clinical, morphologic, and cytogenetic findings. Background: JAK2 is a cytoplasmic tyrosine kinase with a izquierdo role in signal transduction from multiple hematopoietic growth factor receptors. A point mutation within exon 14 of the JAK2 gene ([id number]) encoding a valine to phenylalanine substitution at position 617 of the JAK2 protein (V617F) has been identified in most patients with polycythemia vera, and in about half of those with either essential thrombocythemia or idiopathic myelofibrosis. The V617F has also been detected, although infrequently, in other myeloid disorders such as chronic myelomonocytic leukemia and chronic neutrophilic luekemia. V617F is an acquired mutation that alters a highly conserved valine present in the negative regulatory JH2 domain of the JAK2 protein and is predicted to dysregulate kinase activity. Methodology: Total genomic DNA was extracted and subjected to TaqMan real-time PCR amplification/detection. Two amplification products per sample were monitored by real-time PCR using primers/probes specific to JAK2 wild type (WT) and JAK2 mutant V617F. The [id number] Absolute Quantitation software will compare the patient specimen valuse to the standard curves and generate percent values for wild type and mutant type. In vitro studies have indicated that this assay has an analytical sensitivity of 1%. References: Jorge EJ, Robert LM, Oz PJ, et al. Acquired mutation of the tyrosine kinase JAK2 in human myeloproliferative disorders. Lancet. 2005 Jan 04; 365(4999):6336-7659. Isaías Fuchs, Torey V, Berkley Richter MARGARITO. A unique clonal JAK2 mutation leading to constitutive signaling causes polycythaemia vera. Nature. 2005 Jan 28; 756(7191):0617-4039. Aracely R, Alessandro F, Meera , et al. A gzje-jd-qagmzdwc mutation of JAK2 in myeloproliferative disorders. N Engl J Med. 2005 Feb 13; 352(76):2396-4288. Director Review: Ashutosh Almanza MD, PhD Director, [facility] [place] [address] Disclaimer: This test was developed and its performance characteristics determined by [facility]. It has not been cleared or approved by the Food and Drug Administration. Reflex: Reflex to JAK2 Exon 12-15 Mutation Analysis is not indicated. Extraction Completed TESTING PERFORMED AT [facility]. ORIGINAL REPORT ON FILE IN LAB CONTAINS ADDITIONAL TEST SITE INFORMATION. Performed By: #### L801.1541 #### [place] [facility] [address] [place], [address] ONCOLOGY CONSULTATION Observed: 05/20/2018 Status: F Source: [place] 4:20 PM [facility] REPOSITORY [facility] [address] [place] [address] Oncology Consultation Date of Service: 05/20/18 1608 MR#: [id number] Acct: [id number] Name: GIOVANA POWELL Rep #: [id number] : 1950 From: Urban Russell MD Age/Sex: 67/F Location: OMD Status: Signed Consult Referring Physician: Dr. Jayce Baird/Tarun Nino Consult Results: Thrombocytosis. Subjective Date of Service:: 05/20/18 Chief Complaint: Referred for Increased Platelets. History of Present Illness: 67y.o.woman was found to have to increased Platelets since Feb, 2018. Platelet count on 05/04/2018 was 551 so she was referred for further evaluation. She feels tired, denies bleeding disorder. 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 Past Medical History (Last Updated 05/20/18 @ 15:31 by Cassandra Blanco) History of skin cancer (Acute) Dissociative identity disorder (Chronic) COPD (chronic obstructive pulmonary disease) (Acute) History of UTI (Acute) Kidney failure (Acute) Past Surgical History (Last Reviewed 05/20/18 @ 15:31 by Cassandra Blanco) History of 3 sections (Acute) History of hernia repair (Acute) H/O hernia repair (Inactive) H/O: hysterectomy (Inactive) History of (Inactive) Family History (Last Updated 05/20/18 @ 15:33 by Cassandra Blanco) Brother Colon cancer Aunt Obesity Sister Obesity Mother Rheumatoid arthritis Allergies/Adverse Reactions: Allergy/AdvReac Type Severity Reaction Status Date / Time Review of Systems Constitutional:: Reports: Fatigue. Denies: Fever, Sweats Cardiovascular:: Denies: Chest pain, Palpitations, Dyspnea on exertion, Orthopnea, PND, Shortness of breath Respiratory: Denies: Cough, Hemoptysis, Shortness of Breath, Wheezing Gastrointestinal:: Denies: Abdominal pain, Nausea, Vomiting, Diarrhea, Constipation, Hematochezia Genitourinary: Denies: Dysuria, Hematuria, 15, Flank pain Musculoskeletal:: Denies: Back pain, Myalgia, Arthralgia Skin: Denies: Rash, Skin Changes, Wounds Neurological:: Denies: Headache, Dizziness, Visual changes, Tinnitus, Hearing loss Psychiatric: Denies: Anxiety, Depression, Homicidal Ideations, Suicidal Ideations Vital Signs Height 5 ft 1.5 in Weight: 82.01 kg Weight in Pounds 180.8 lbs Pulse Ox 95 - Physical Exam General: Alert, Oriented x3, No apparent distress HEENT: Atraumatic, PERRLA, EOMI, Normocephalic Oropharynx:: Dry mucosa Neck:: Supple, Trachea midline. Negative for: JVD, bilateral Cardiac:: Regular rate, Regular rhythm, Normal S1, Normal S2. Negative for: Murmur Lungs: Clear to auscultation, Excusion symmetrical. Negative for: Rhonchi, Wheezes Abdomen:: Bowel sounds x 4, Soft, Non-tender, Non-distended. Negative for: Hepatosplenomegaly Extremities:: Negative for: Cyanosis, Edema Neurological: Neuro grossly intact Skin:: Lesions - 3mm no-healing ulcer-forehead. Psychiatric:: Appropriate affect, Euthymic Lymphatics:: Negative for: Cervical lymphadenopathy, Supraclavicular lymphadenopathy, Axillary lymphadenopathy Assessment and Plan Thrombocytosis R/O Myeloproliferative Neoplasm or iron deficiency. Non-healing ulcer-forehead, pt is waiting to see a Phototypesetter Operator. Plan is to repeat CBC/CMP/iron profile. Obtain JAK2 V617F/exon 12. RTC 2 weeks. Medications: Prescriptions This Visit Medication Instructions Recorded Albuterol Inhaler [Ventolin Hfa 1 puff INHALATION Q4H PRN PRN 05/20/18 (SP)] Primary Care Provider: Esperanza Baird MD Referring Provider: Esperanza Baird MD - Problem List (1) Thrombocytosis Status: Chronic Code Visit Office Visits / Consults: [id number] OP Consult L4 05/20/18 1620 <Electronically signed by Urban Russell MD> Date Urban Russell MD Cosigner Signature: Date (if applicable) CC: Esperanza Baird MD CBC-COMPLETE BLOOD CNT Collected: 05/04/2018 Status: F Source: [place] NO DIFF 10:31 AM [facility] REPOSITORY TYPE CODE TESTS RESULT OUT OF RANGE REFERENCE UNITS LAB L100.1000 4.4-11.0 K/mm3 Normal WBC 9.8 LAB L100.1200 4.2-5.4 M/mm3 Normal RBC 4.52 LAB L100.1300 12.0-15.0 g/dl Normal HGB 13.9 LAB L100.1400 37-47 % Normal HCT 41.8 LAB L100.1500 81-99 fL Normal MCV 92.5 LAB L100.1600 27.0-32.0 pg Normal MCH 30.8 LAB L100.1700 32-36 g/gl Normal MCHC 33.3 LAB L100.1810 11.6-14.6 % Normal RDW CV 13.7 LAB L100.1820 35.1-43.9 fl High RDW SD 45.4 LAB L100.1900 150-450 K/mm3 High PLT 551 LAB L100.2000 6.2-12.0 fl Normal MPV 9.2 Performed By: #### L100.0500, L500.4050, L501.9520, L506.0400 #### [facility] [address] [place], [place], [address] COMPREHENSIVE METABOLIC Collected: 05/04/2018 Status: F Source: [place] PROFIL 10:31 AM [facility] REPOSITORY TYPE CODE TESTS RESULT OUT OF RANGE REFERENCE UNITS LAB L501.0100 74-106 mg/dL Normal GLU 90 Result Comment: Please note revised GLUCOSE reference range effective 2017. LAB L501.1000 7-18 mg/dL Normal BUN 11 LAB L501.1100 0.55-1.02 mg/dL Normal CREAT,SERUM 0.68 Result Comment: The validity of the calculated GFR AND GFRAA in patients over 70 years has not been determined. Clinical correlation is essential. LAB L501.1110 >60 mL/min Normal EST GFR 92 Result Comment: Non- GFR Calc LAB L501.1115 >60 mL/min Normal EST GFR - AA 111 Result Comment: GFR Calc LAB L501.1300 10-20 RATIO Normal BUN/CRE 16.2 LAB L501.1500 6.4-8.2 g/dL T Normal PROT 7.1 LAB L501.1800 3.2-5.0 g/dL Normal ALB 3.4 LAB L501.1950 2.2-4.2 g/dL Normal GLOB 3.7 LAB L501.2000 0.9-2.4 RATIO Normal A/G 0.9 LAB L501.2200 8.5-10.1 mg/dL CA Normal 8.8 LAB L501.4100 15-37 U/L Normal AST 20 LAB L501.4305 45-117 U/L Normal ALK P 115 LAB L501.4405 13-56 U/L Normal ALT 22 LAB L501.4600 0.20-1.00 mg/dL T Normal BILI 0.20 LAB L501.5300 136-145 mmol/L NA Normal 140 LAB L501.5600 3.5-5.1 mmol/L K Normal 4.6 LAB L501.5900 98-107 mmol/L CL Normal 104 LAB L501.6100 21.0-32.0 mmol/L Normal CO2 31.0 LAB L501.6200 5-15 Normal GAP 5 Performed By: #### L100.0500, L500.4050, L501.9520, L506.0400 #### [facility] [address] [place], [place], [id number] THYROID STIM HORMONE Collected: 05/04/2018 Status: F Source: [place] (TSH) 10:31 AM [facility] REPOSITORY TYPE CODE TESTS RESULT OUT OF RANGE REFERENCE UNITS LAB L501.9520 0.358-3.74 uIU/mL Normal TSH 0.70 Performed By: #### L100.0500, L500.4050, L501.9520, L506.0400 #### [facility] [address] [place], [place], [address] T4 FREE DIRECT Collected: 05/04/2018 Status: F Source: [place] 10:31 AM [facility] REPOSITORY TYPE CODE TESTS RESULT OUT OF RANGE REFERENCE UNITS LAB L506.0400 0.76-1.46 ng/dL Normal T4 FREE 1.08 DIRECT Performed By: #### L100.0500, L500.4050, L501.9520, L506.0400 #### [facility] [address] [place], [address] INTERNAL MEDICINE Observed: 04/28/2018 Status: F Source: [place] OFFICE VISIT 5:28 PM [facility] REPOSITORY [facility] [address] [place] [address] [place] [address] OFFICE VISIT Date of Service: 04/28/18 MR#: [id number] Acct: [id number] Name: GIOVANA POWELL Rep #: [id number] : 1950 Provider: Tarun Nino NP Age/Sex: 67/F Location: [facility] Status: Signed Intake Vital Signs04/28/18 Height 5 ft 2 in Intake Visit Reasons: 3 MO FU Chief Complaint: fatigue Is patient in pain?: No Allergies lurasidone [From Latuda] Allergy (Verified 03/13/18 00:15) Other naproxen Allergy (Verified 03/13/18 00:15) Hives paliperidone [From Invega] Allergy (Verified 03/13/18 00:15) increased psychiatric symptoms trazodone Allergy (Verified 03/13/18 00:15) Other theophylline Adverse Reaction (Verified 03/13/18 00:15) Other SLOBID Adverse Reaction (Uncoded 03/13/18 00:15) Other Medications Lisinopril [Zestril] 20 mg PO DAILY 03/24/17 [History Confirmed 03/13/18] Divalproex (ER) [Depakote ER] 500 mg PO BID 06/20/17 [History Confirmed 03/13/18] Pravastatin [Pravachol] 40 mg PO QHS 12/18/17 [History Confirmed 03/13/18] Buprenorphine HCl/Naloxone HCl [Suboxone 8 mg-2 mg Sl Film] 2 ea SL DAILY 12/24/17 [History Confirmed 03/13/18] benztropine 0.5 mg tablet 0.5 mg PO BID 01/06/18 [History Confirmed 03/13/18] calcium carbonate 600 mg calcium (1,500 mg) tablet 600 mg PO BID #60 tab 01/06/18 [Rx Confirmed 03/13/18] cholecalciferol (vitamin D3) 50,000 unit capsule 50,000 unit PO QWEEK #8 cap 01/06/18 [Rx Confirmed 03/13/18] olanzapine 10 mg tablet 10 mg PO QHS tab 01/06/18 [History Confirmed 03/13/18] pantoprazole 20 mg tablet,delayed release 20 mg PO QDAY 01/06/18 [History Confirmed 03/13/18] clonidine HCl 0.1 mg tablet 0.1 mg PO TID #90 tab 03/11/18 [Rx Confirmed 03/13/18] hydralazine 50 mg tablet 50 mg PO TID #90 tab 03/11/18 [Rx Confirmed 03/13/18] metoprolol tartrate 25 mg tablet 25 mg PO DAILY #30 tab 03/11/18 [Rx Confirmed 03/13/18] Ketorolac [Toradol] 10 mg PO Q6H PRN PRN #20 tab 03/15/18 [Rx] camphor-menthol 0.5 %-0.5 % lotion 1 applic TOPICAL BID-TID PRN #222 ml 04/28/18 [Rx Confirmed 04/28/18] disability placard #1 [id number] 04/28/18 [Rx Confirmed 04/28/18] sennosides 8.6 mg-docusate sodium 50 mg tablet 1 tab PO BID PRN #60 tab 04/28/18 [Rx Confirmed 04/28/18] PFSH Medical History History of skin cancer (Acute) Dissociative identity disorder (Chronic) Surgical History History of 3 sections (Acute) History of hernia repair (Acute) H/O hernia repair (Inactive) H/O: hysterectomy (Inactive) History of (Inactive) Family History Brother Colon cancer Social History Smoking Status: Current every day smoker alcohol intake: never substance use type: does not use HPI HPI Chief Complaint: fatigue Details: GIOVANA GRESH, is a 67 F who presents to the office today with multiple complaints. She has a past medical history as listed above. Patient states over the last couple months she has become very fatigued. I do not feel like doing anything. She states that most days she just lays around doing nothing. She does not have the energy she used to have. She also states that in the last 8 months she has gained over 50 pounds. She does not understand why, she states she does not overeat, she says she eats 2 meals a day. She also states she walks every other day about a block. Another concern is a nonhealing lesion on her forehead and a rash on her left hand and chest. The area to her forehead has been there for about 8 months, it crusts and bleeds but never goes away completely. She does have a history of basal cell removal to her face. The rash to her left hand and chest have been there for quite some time and she complains it is itchy. She is used hydrocortisone cream with mild relief. The patient also complains of constipation that has been going on since about February. She states she has a bowel movement every day but describes it as hard and pebbly. She denies blood in her stool or abdominal pain. The patient otherwise denies any fever, chills, nausea, vomiting, shortness of breath, chest pain or pressure, palpitations, orthopnea, lower extremity edema, syncope or presyncopal episodes. ROS Const Constitutional: Positive for fatigue and sleep problems (trouble falling asleep and staying asleep); no weight change, body ache, chills, fever(s), change in appetite, snoring, weakness, frequent falls, headache(s) or excessive sweating Eyes Eyes: No change in vision, eye pain, light sensitivity or blurry vision ENT ENT: No headache(s), abnormal hearing, ear pain, tinnitus, nasal congestion, sore throat or neck pain Resp Respiratory: No snoring, cough, shortness of breath or wheezing Cardio Cardiology: No excessive sweating, chest pain at rest, chest pain with exertion, shortness of breath, dyspnea on exertion, palpitations, orthopnea or lightheadedness Gastro GI: Positive for constipation; no abdominal pain, change in bowel habits, diarrhea, vomiting, nausea/dyspepsia or cramping Genitourinary-Female: No burning urination, painful urination, urinary incontinence, urinary frequency, abnormal vaginal bleeding, pelvic pain or other Musc Musculoskeletal: No neck pain, abnormal walking, joint pain, back pain, limited range of motion, numbness or tingling Skin Skin: Positive for itching and wounds (on forehead, has been there for 8 months. ); no redness, dry skin, lesions or rash Neuro Neurology: No weakness, frequent falls, headache(s), abnormal hearing, abnormal walking, numbness, tingling, abnormal speech, dizziness or memory loss Psych Psychiatric: No change in appetite, No memory loss, No anxiety, No depression, No Thoughts of harming yourself/Others Endo Endocrine: Positive for fatigue; no excessive sweating, cold intolerance, increased thirst/drinking, heat intolerance, flushing or increased hunger Aller/Imm Allergy/Immunologic: Positive for itchy eyes; no wheezing, hives or seasonal allergy symptoms Rigoberto/Lymp Hematologic/Lymphatic: No easy bleeding, easy bruising or enlarged lymph nodes Exam Const General: cooperative, comfortable, no acute distress Nutritional Appearance: well nourished, obese Orientation: alert, oriented x3 Limitations: mental status not altered Eyes General: appearance normal, both eyes and all related structures Resp Effort AND Inspection: normal respiratory effort, able to speak in complete sentences, normal respiratory pattern, symmetric chest movement, no audible wheezes, no cough Auscultation: Bilateral: Clear to Auscultation Cardio Palpation: normal PMI Rate: regular rate Heart Sounds: S1 normal, S2 normal, normal S1 and S2, no click, no gallops, no murmurs, no rubs GI Inspection: normal to inspection Auscultation: normal bowel sounds, no hyperactive bowel sounds, no hypoactive bowel sounds Palpation: soft, no hepatosplenomegaly Skin General: no rashes or lesions noted, elasticity normal, turgor normal Lesions: lesion noted (right lateral Forehead, rasied crusted and erythematous edges) Rashes: rashes noted (Chest and left hand diffuse macular erythematous) Neuro General: alert, awake, oriented x3, CN's II-XI intact bilaterally Speech: speech normal Gait: normal gait Motor: muscle tone normal throughout Extrem General: normal to inspection, normal gait, no edema, no pedal edema Psych Appearance: grossly normal Mental Status: mental status grossly normal Mood: anxious mood Affect: normal affect Attitude: cooperative Thought Process: flight of ideas Assessment AND Plan 1. Fatigue R53.83 Plan Patient complains of increasing fatigue over the past few months. Will check CBC, TSH and T4. Orders Orders: 2. Obesity (BMI 30.0-34.9) E66.9 Plan Patient states significant weight gain in the last 8 months. Patient voices interest in dietitian and exercise referral. Will refer patient to why weight program. Orders Referrals: 3. Rash R21 Plan Patient requesting prescription for Sarna cream that has helped with her chronic itching and dry skin in the past. Patient educated on red flag signs and symptoms that would warrant emergency care. 4. Non-healing skin lesion L98.9 Plan Patient has a history skin cancer to her face. She complains she has a lesion on her forehead that has been there for about 8 months. Will refer to Dr. Davis for possible biopsy. Orders Referrals: 5. Constipation K59.00 Plan Patient complains of constipation over the last month. She is currently taking suboxone. Patient given prescription for senna D prn. Patient also educated to increase fluids and fibrous foods. Educated on red flag signs and symptoms that would warrant emergency medical care. Plan Detail Other Orders Orders: Referrals: Other Medications New: sennosides-docusate sodium 8.6-50 mg (Senna w1 tab PO BID PRN constipation ith Docusate Sodium) Follow Up 2 Months Coding Level of Care Code Off vis,est,level 4 Diagnoses Fatigue R53.83 Obesity (BMI 30.0-34.9) E66.9 Rash R21 Non-healing skin lesion L98.9 Constipation K59.00 04/28/18 1728 <Electronically signed by Tarun DAVIDSON> Date Tarun DAVIDSON Cosigner Signature: Date (if applicable) CC: PROGRESS Observed: 03/30/2018 Status: COMPLETED Source: [place] 1:43 PM [facility] REPOSITORY HNO ID: [id number] Author: Isaura Andres Service: (none) Author Type: Milieu Coordinator Type: Progress Notes Filed: 04/02/2018 10:39 AM Note Text: The phone number. isn't in service. Tried the mobile phone number the lady sounded confused but she said she was not Jacklyn. Isaura Andres MA PROGRESS Observed: 03/27/2018 Status: COMPLETED Source: [place] 10:43 AM [facility] REPOSITORY HNO ID: [id number] Author: Kaitlin Sanderson Service: (none) Author Type: Physician Type: Progress Notes Filed: 03/27/2018 10:45 AM Note Text: FOLLOW UP VISIT - CHOLECYSTECTOMY NAME: Jacklyn Bolanos [facility] NO.: [id number] DATE OF SERVICE: 03/26/2018 : 1950 REFERRING PHYSICIAN: Tarun Ayers MD Jacklyn is a patient I am following for a complaint of right upper quadrant pain and initially presumed common bile duct stones, but due to improvement in her bilirubin. It was assumed that this had spontaneously passed preoperatively. I performed a laparoscopic cholecystectomy with intraoperative choleangiogram on March 14, 2018. The patient was found to have a dilated common bile duct without stones, and this was felt to be secondary to likely edema from passing a stone through the ampulla. The patient currently notes no complaints of abdominal pain or jaundice. her appetite has been good. she denies fever, chills or abdominal pain. she does note some minimal incisional discomfort. VITALS: Blood pressure 157/88. On examination, the abdomen is benign. The incisions are healing well without signs of infection or inflammation. Assessment IMPRESSION: status post laparoscopic cholecystectomy with intraoperative cholangiogram PLAN: If the patient notes any problems, she should contact me immediately. she may return to her regular activities as tolerated, with the exception of no lifting greater than 20 pounds for the next 4 weeks. The patient is to contact me immediately is she experiences any of her preoperative symptoms. We discussed that occasional right up quadrant symptoms similar to the preoperative complaints can occur in the first couple of weeks post operatively. If this persists beyond the first 2-3 weeks, they should contact our office. Diagnoses: (K80.20) Calculus of gallbladder without cholecystitis without obstruction (primary encounter diagnosis) Return to Clinic: The patient is instructed to follow- up with me as needed. Kaitlin Sanderson MD CNOV Observed: 03/26/2018 Status: COMPLETED Source: [place] 2:20 PM [facility] REPOSITORY Office Visit (GENSWS) JACKLYN POWELL ([id number]) 1950 F Date Time Provider Department 03/26/18 2:20 PM KAITLIN SANDERSON During your visit today, we recorded the following information about you: Blood pressure 157/88 Kaitlin Sanderson MD 03/27/2018 10:45 AM Signed FOLLOW UP VISIT - CHOLECYSTECTOMY NAME: Jacklyn Bolanos [facility] NO.: [id number] DATE OF SERVICE: 03/26/2018 : 1950 REFERRING PHYSICIAN: Tarun Ayers MD Jacklyn is a patient I am following for a complaint of right upper quadrant pain and initially presumed common bile duct stones, but due to improvement in her bilirubin. It was assumed that this had spontaneously passed preoperatively. I performed a laparoscopic cholecystectomy with intraoperative choleangiogram on March 14, 2018. The patient was found to have a dilated common bile duct without stones, and this was felt to be secondary to likely edema from passing a stone through the ampulla. The patient currently notes no complaints of abdominal pain or jaundice. her appetite has been good. she denies fever, chills or abdominal pain. she does note some minimal incisional discomfort. VITALS: Blood pressure 157/88. On examination, the abdomen is benign. The incisions are healing well without signs of infection or inflammation. Assessment IMPRESSION: status post laparoscopic cholecystectomy with intraoperative cholangiogram PLAN: If the patient notes any problems, she should contact me immediately. she may return to her regular activities as tolerated, with the exception of no lifting greater than 20 pounds for the next 4 weeks. The patient is to contact me immediately is she experiences any of her preoperative symptoms. We discussed that occasional right up quadrant symptoms similar to the preoperative complaints can occur in the first couple of weeks post operatively. If this persists beyond the first 2-3 weeks, they should contact our office. Diagnoses: (K80.20) Calculus of gallbladder without cholecystitis without obstruction (primary encounter diagnosis) Return to Clinic: The patient is instructed to follow- up with me as needed. Kaitlin Sanderson MD Referring Provider: KAITLIN SANDERSON [[id number]] Allergies As of Date: 03/26/2018 Noted Allergy Reaction EOVIST (GADOXETATE) 02/19/2017 12 - Shortness of Breath Comments: MRI contrast NAPROSYN (NAPROXEN) 06/04/2011 4 - Hives Slow-bid [Other] 12/29/2011 1 - Mental Status Change Comments: lethargic with slurred speech Date Reviewed: 03/26/2018 Reviewed by: Kaitlin Sanderson - Fully Assessed Reason for Visit: Post Op [174] Primary Visit Diagnosis:Calculus of gallbladder without cholecystitis without obstruction [K80.20] Prescriptions as of 03/26/2018 Sig: KETOROLAC 10 MG TABLET Take 1 tablet by mouth every * LISINOPRIL 20 MG TABLET TAKE 1 TABLET DAILY SUCRALFATE 1 GRAM TABLET TAKE 1 TABLET BY MOUTH FOUR T* FOOD SUPPLEMENT, LACTOSE-REDU* Drink a 8 oz bottle, up to si* CLONIDINE HCL 0.1 MG TABLET TAKE 1 TABLET THREE TIMES A D* SUCRALFATE 100 MG/ML ORAL NILSA* Take 10 mL by mouth before me* CAMPHOR-MENTHOL 0.5 %-0.5 % L* Apply 1 application to affect* OXYBUTYNIN CHLORIDE ER 15 MG * TAKE 1 TABLET BY MOUTH ONCE D* PRAMIPEXOLE 1 MG TABLET Take 1 tablet by mouth three * ASPIRIN 81 MG TABLET,DELAYED * Take 1 tablet by mouth once d* IBUPROFEN 800 MG TABLET Take 1 tablet by mouth every * SIMVASTATIN 40 MG TABLET Take 1 tablet by mouth daily * PANTOPRAZOLE 20 MG TABLET,DEL* Take 1 tablet by mouth daily * HYDRALAZINE 50 MG TABLET Take 1 tablet by mouth three * CYANOCOBALAMIN (VIT B-12) 500* Take 2 tablets by mouth once * AMLODIPINE 10 MG TABLET Take 1 tablet by mouth once d* BENZONATATE 100 MG CAPSULE Take 1 capsule by mouth three* BUPRENORPHINE 8 MG-NALOXONE 2* Dissolve 2 Film under the ton* CHOLECALCIFEROL (VITAMIN D3) * Take 1 capsule by mouth once * METOPROLOL TARTRATE 25 MG TAB* Take 1 tablet by mouth once d* IBUPROFEN 200 MG TABLET Take 1 tablet by mouth every * BUDESONIDE-FORMOTEROL HFA 160* Inhale 2 Puffs as instructed * ALBUTEROL SULFATE HFA 90 MCG/* Inhale 2 Puffs as instructed * IPRATROPIUM-ALBUTEROL 0.5 MG-* Inhale 3 mL as instructed catherine* DIVALPROEX 500 MG TABLET,CATINA* Take 2 tablets by mouth twice* COMPOUNDED PRESCRIPTION BLOOD PRESSURE CUFF FOR HOME * LURASIDONE 80 MG TABLET Take 1 tablet by mouth once d* Problem List As Of Date 03/26/2018 Noted Resolved Essential hypertension, benign [I10] INVALID FOR* Epilepsy [G40.909] INVALID FOR* Bipolar affective [F31.9] INVALID FOR* Anemia [D64.9] INVALID FOR* Back pain [M54.9] INVALID FOR* Special screening for malignant neoplasms, colo*INVALID FOR*02/04/2012 Unspecified constipation [K59.00] INVALID FOR* Benign neoplasm of colon [D12.6] INVALID FOR* Patellar tendonitis [M76.50] INVALID FOR*02/04/2012 Arthritis of knee, 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] INVALID FOR* History of drug abuse [Z87.898] INVALID FOR* Neoplasm of uncertain behavior of skin: R/O BCC*INVALID FOR*12/30/2016 BCC (basal cell carcinoma), face [C44.310] INVALID FOR*12/30/2016 BCC (basal cell carcinoma), eyelid [C44.111] INVALID FOR*12/30/2016 Skin cancer of face [C44.300] INVALID FOR*12/30/2016 Actinic skin damage [L57.8] INVALID FOR*12/30/2016 Melanocytic nevi of face [D22.30] INVALID FOR*12/30/2016 Solar lentigo [L81.4] INVALID FOR*12/30/2016 Open wound(s) (multiple) of unspecified site(s)*INVALID FOR*12/30/2016 Basal cell carcinoma, eyelid [C44.111] INVALID FOR*12/30/2016 Sleep apnea [G47.30] INVALID FOR* Personal history of colonic polyps [Z86.010] INVALID FOR* Follow-up and Disposition History Recorded Encounter Status:Closed by KAITLIN SANDERSON MD on 03/27/18 CNPN Observed: 03/22/2018 Status: COMPLETED Source: [place] 12:00 AM [facility] REPOSITORY Telephone (GENSWS) JACKLYN POWELL ([id number]) 1950 F Date Time Provider Department 03/22/18 KAITLIN SANDERSON GENSWS During your visit today, we recorded the following information about you: Emilia Marino RN 03/22/2018 4:32 PM Signed Patient is status post lap irene last week and was given Toradol for post op pain. She is painful and wants more before her appointment this Thursday. Please advise. Emilia Marino RN 03/22/2018 4:34 PM Signed Patient uses [facility] [phone] Emilia Sahni LPN 03/23/2018 8:47 AM Signed Pharmacy called and dosage verified with them. Allergies As of Date: 03/22/2018 Noted Allergy Reaction EOVIST (GADOXETATE) 02/19/2017 12 - Shortness of Breath Comments: MRI contrast NAPROSYN (NAPROXEN) 06/04/2011 4 - Hives Slow-bid [Other] 12/29/2011 1 - Mental Status Change Comments: lethargic with slurred speech Date Reviewed: 02/19/2017 Reviewed by: Natalee Velez, RN, RN - Fully Assessed Reason for Visit: Question [3703] Order(s):ketorolac (TORADOL) 10 mg tabletTake 1 tablet by mouth every 6 hours as needed.Disp: 216 tabletRfl: 0 Prescriptions as of 03/22/2018 Sig: KETOROLAC 10 MG TABLET Take 1 tablet by mouth every * LISINOPRIL 20 MG TABLET TAKE 1 TABLET DAILY SUCRALFATE 1 GRAM TABLET TAKE 1 TABLET BY MOUTH FOUR T* FOOD SUPPLEMENT, LACTOSE-REDU* Drink a 8 oz bottle, up to si* CLONIDINE HCL 0.1 MG TABLET TAKE 1 TABLET THREE TIMES A D* SUCRALFATE 100 MG/ML ORAL NILSA* Take 10 mL by mouth before me* CAMPHOR-MENTHOL 0.5 %-0.5 % L* Apply 1 application to affect* OXYBUTYNIN CHLORIDE ER 15 MG * TAKE 1 TABLET BY MOUTH ONCE D* PRAMIPEXOLE 1 MG TABLET Take 1 tablet by mouth three * ASPIRIN 81 MG TABLET,DELAYED * Take 1 tablet by mouth once d* IBUPROFEN 800 MG TABLET Take 1 tablet by mouth every * SIMVASTATIN 40 MG TABLET Take 1 tablet by mouth daily * PANTOPRAZOLE 20 MG TABLET,DEL* Take 1 tablet by mouth daily * HYDRALAZINE 50 MG TABLET Take 1 tablet by mouth three * CYANOCOBALAMIN (VIT B-12) 500* Take 2 tablets by mouth once * AMLODIPINE 10 MG TABLET Take 1 tablet by mouth once d* BENZONATATE 100 MG CAPSULE Take 1 capsule by mouth three* BUPRENORPHINE 8 MG-NALOXONE 2* Dissolve 2 Film under the ton* CHOLECALCIFEROL (VITAMIN D3) * Take 1 capsule by mouth once * METOPROLOL TARTRATE 25 MG TAB* Take 1 tablet by mouth once d* IBUPROFEN 200 MG TABLET Take 1 tablet by mouth every * BUDESONIDE-FORMOTEROL HFA 160* Inhale 2 Puffs as instructed * ALBUTEROL SULFATE HFA 90 MCG/* Inhale 2 Puffs as instructed * IPRATROPIUM-ALBUTEROL 0.5 MG-* Inhale 3 mL as instructed catherine* DIVALPROEX 500 MG TABLET,CATINA* Take 2 tablets by mouth twice* COMPOUNDED PRESCRIPTION BLOOD PRESSURE CUFF FOR HOME * LURASIDONE 80 MG TABLET Take 1 tablet by mouth once d* Problem List As Of Date 03/22/2018 Noted Resolved Essential hypertension, benign [I10] INVALID FOR* Epilepsy [G40.909] INVALID FOR* Bipolar affective [F31.9] INVALID FOR* Anemia [D64.9] INVALID FOR* Back pain [M54.9] INVALID FOR* Special screening for malignant neoplasms, colo*INVALID FOR*02/04/2012 Unspecified constipation [K59.00] INVALID FOR* Benign neoplasm of colon [D12.6] INVALID FOR* Patellar tendonitis [M76.50] INVALID FOR*02/04/2012 Arthritis of knee, 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] INVALID FOR* History of drug abuse [Z87.898] INVALID FOR* Neoplasm of uncertain behavior of skin: R/O BCC*INVALID FOR*12/30/2016 BCC (basal cell carcinoma), face [C44.310] INVALID FOR*12/30/2016 BCC (basal cell carcinoma), eyelid [C44.111] INVALID FOR*12/30/2016 Skin cancer of face [C44.300] INVALID FOR*12/30/2016 Actinic skin damage [L57.8] INVALID FOR*12/30/2016 Melanocytic nevi of face [D22.30] INVALID FOR*12/30/2016 Solar lentigo [L81.4] INVALID FOR*12/30/2016 Open wound(s) (multiple) of unspecified site(s)*INVALID FOR*12/30/2016 Basal cell carcinoma, eyelid [C44.111] INVALID FOR*12/30/2016 Sleep apnea [G47.30] INVALID FOR* Personal history of colonic polyps [Z86.010] INVALID FOR* Prescriptions ordered this encounter Disp Refills Start End KETOROLAC 10 MG TABLET 216 * 0 03/23/2018 04/22/2018 Route: ORAL Sig: Take 1 tablet by mouth every 6 hours as needed. Encounter Status:Closed by KAITLIN SANDERSON MD on 03/23/18 PROGRESS Observed: 03/21/2018 Status: COMPLETED Source: [place] 10:33 AM [facility] REPOSITORY HNO ID: [id number] Author: Kaitlin Sanderson Service: (none) Author Type: Physician Type: Progress Notes Filed: 03/21/2018 10:40 AM Note Text: OPERATIVE NOTATION FOR [facility] SURGICAL PROCEDURE. March 14, 2018 Jacklyn Powell 1950 [id number] female PROCEDURE: LAPAROSCOPIC CHOLECYSTECTOMY WITH INTRAOPERATIVE CHOLEANGIOGRAM - [id number] SURGEON: King Sanderson M.D. FACS COUNSELOR AIDE: None DEPT: WQ PROVIDER: [id number]=CryvrdzKaitlin Sanderson MD POS: [id number] DIAGNOSIS: (K80.20) Calculus of gallbladder without cholecystitis without obstruction (primary encounter diagnosis) ASA CLASS: 3 - Severe FINDINGS: COMPLICATIONS: None PMHx - PAST MEDICAL HISTORY Diagnosis Date - Acid reflux - Arthritis - Back pain, chronic DJD - Bipolar affective disorder (HCC) - Chronic obstructive pulmonary disease (COPD) (HCC) - Cocaine addiction (HCC) as of 3-12-12, 120 days into recovery - Constipation - Depression - Essential hypertension, benign - Hypercholesteremia - Unspecified epilepsy without mention of intractable epilepsy Left temopral lobe seiazures, 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 Kaitlin Sanderson MD DISCHARGE SUMMARY Observed: 03/15/2018 Status: F Source: [place] 9:44 AM [facility] REPOSITORY [facility] Medical Records Department [address] [place] [id number] Discharge Summary 03/15/18 0939 MR#: [id number] Acct: [id number] Name: GIOVANA POWELL Rep #: [id number] : 1950 67 From: Navjot Hassan DO PCP: Esperanza Baird MD Status: ADM IN Y Location: [place] [address]1 Discharge Date and Diagnosis - Problem List Patient Problems: Active and Suspected Problems (Last Reviewed 02/04/18 @ 13:45 by Candy Davenport) Transaminitis (Acute) Cholecystitis (Acute) Obstructive jaundice (Acute) Date of Admission: 03/13/18 Date of Discharge: 03/15/18 - Primary Discharge Diagnosis Active and Suspected Problems (Last Reviewed 02/04/18 @ 13:45 by Candy Davenport) Transaminitis (Acute) Cholecystitis (Acute) Obstructive jaundice (Acute) - Secondary Discharge Diagnosis Chronic Problems (Last Reviewed 02/04/18 @ 13:45 by Candy Davenport) Dissociative identity disorder (Chronic) Seizure (Chronic) GERD (gastroesophageal reflux disease) (Chronic) Hyperlipidemia (Chronic) Hepatitis (Chronic) Osteopenia (Chronic) Chronic back pain (Chronic) Rheumatoid arthritis (Chronic) COPD (chronic obstructive pulmonary disease) (Chronic) Manic depressive disorder (Chronic) Hypertension (Chronic) Tobacco abuse (Chronic) Noncompliance (Chronic) Bipolar disorder (Chronic) Opioid dependence (Chronic) Hospital Course and Treatment Imaging Results: Clinical Impression(s) from Imaging Studies Acute Abdomen Series 03/13/18 00:34 IMPRESSION: Normal x-ray examination of the chest, abdomen, and pelvis. Electronically Signed: Lilian Sandoval MD at 2:16 EDT Tel , Service support , Gallbladder Ultrasound 03/13/18 05:55 IMPRESSION: Gallbladder Wall thickening, pericholecystic fluid, sludge, there is borderline common duct distention cholelithiasis/sludge. This constellation of findings is associated with acute cholecystitis in the appropriate clinical setting. Sonographic Valiente sign is not described as positive or negative. The differential for wall thickening can be associated with underlying hepatic disease. Benign-appearing right renal cyst N.B. : The above information has been verbally conveyed by Oxana Wagoner MD to DR. Parikh, Covering Physician, on 03/13/2018 10:04:06 (ET). Electronically Signed: Oxana Wagoner MD at 9:43 EDT Tel , Service support , N.B. : The above information has been verbally conveyed by Oxana Wagoner MD to DR. Parikh, Covering Physician, on 03/13/2018 10:04:06 (ET). Abdomen/Pelvis CT 03/13/18 08:30 IMPRESSION: Findings are highly suspicious for acute cholecystitis. This is concordant with the recent ultrasound findings showing the same. Hepatic steatosis. 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 Distention of the common duct is 6.7 mm Benign appearing right renal cyst. Diverticulosis without diverticulitis. Electronically Signed: Oxana Wagoner MD at 11:42 EDT Tel , Service support , Cholangiogram 03/14/18 07:30 IMPRESSION: Fluoroscopy utilized to evaluate intraoperative cholangiogram as detailed above on the images provided recommend correlation with procedure notes and intraoperative observations. Electronically Signed: Oxana Wagoner MD at 9:35 EDT Tel , Service support , Operations: cholecystecomy Procedures: None Summary of Care Provided: The patient is a 67 year old F presents with abdominal pain. Had an abdominal CT that was suspicious for acute cholecystitis. And also noted to have some distention of the common duct at 6.7 mm. Patient was also noted to have elevated liver function tests. Total bilirubin got as high as 3.3 and AST and ALT were also elevated. Patient bilirubin has since normalized and AST and ALT are improving though not quite back to normal as of yet. Patient underwent laparoscopic cholecystectomy by her Jose on the . Patient tolerated procedure well. Patient was also seen in consultation by Dr. Vyas in case there is need for an ERCP which there was not. Patient still has some abdominal pain and patient will receive a prescription for Toradol. Patient does have a history of narcotic abuse to which she is on Suboxone for. Patient received prescription for a total of 5 days of Toradol dispense #20. Patient is otherwise doing well and will be discharged home. Patient is instructed to follow-up with Dr. Garcia in 7 days after her surgery. [] Discharge Diet: Light diet - advance as tolerated Discharge Activity: May Not Drive - for 2-3 days or while taking narcotic pain medications., - - Do not drive, work heavy equipment or sign legal documents for 24 hours. May shower in (days): 1 - with the bandage in place. Additional Activity Instructions:: Pain medication may cause nausea. You should typically eat light foods as you take your pain medications. Pain medication may also cause constipation. If this is a problem for you, please discuss with your doctor. Call your doctor if your incision/area has: Continuous Slow Oozing, Sudden Increased Bleeding, Increased Pain/ Swelling, Increased Redness, Foul Smelling Discharge Call your doctor if you observe: Fever of 101 or Higher Suture Line Care: Avoid Pulling/Pushing, Avoid Pinching/Bending Additional Dressing/Incision Instructions:: Leave operative bandaids on for 2 days. When you remove dressing, leave Steri-Strips on until your follow-up appointment, or until the Steri-Strips fall off on their own. Home Medications: Medications to take at Discharge Lisinopril [Zestril] 20 mg PO DAILY 03/24/17 Divalproex (ER) [Depakote ER] 500 mg PO BID 06/20/17 Pravastatin [Pravachol] 40 mg PO QHS 12/18/17 Buprenorphine HCl/Naloxone HCl [Suboxone 8 mg-2 mg Sl Film] 2 ea SL DAILY 12/24/17 benztropine 0.5 mg tablet 0.5 mg PO BID 01/06/18 calcium carbonate 600 mg calcium (1,500 mg) tablet 600 mg PO BID #60 tab 01/06/18 cholecalciferol (vitamin D3) 50,000 unit capsule 50,000 unit PO QWEEK #8 cap 01/06/18 olanzapine 10 mg tablet 10 mg PO QHS tab 01/06/18 pantoprazole 20 mg tablet,delayed release 20 mg PO QDAY 01/06/18 clonidine HCl 0.1 mg tablet 0.1 mg PO TID #90 tab 03/11/18 hydralazine 50 mg tablet 50 mg PO TID #90 tab 03/11/18 metoprolol tartrate 25 mg tablet 25 mg PO DAILY #30 tab 03/11/18 Ketorolac [Toradol] 10 mg PO Q6H PRN PRN #20 tab 03/15/18 Following Prescrptions Were Given to Patient: Ketorolac [Toradol] 10 mg PO Q6H PRN PRN #20 tab PRN Reason: Pain Primary Care Physician: Esperanza Baird MD [Primary Care Provider] - Please Follow Up With: Kaitlin Sanderson MD - Please call [phone] to schedule an appointment. When: 7 days after your surgery Disposition: Home Minutes spent on discharge:: 32 Patient Condition:: Good Medical Necessity - Tobacco Use Smoking Status: Current every day smoker Tobacco Use: Cigarettes Meaningful Use Info Meaningful Use Diagnoses (Choose all that apply): None applicable Code Visit Inpatient E AND M: 45474 Disch Hosp 03/15/18 0944 <Electronically signed by Navjot Hassan DO> Date Navjot Hassan DO Cosigner Signature (if applicable): Date CC: Esperanza Baird MD; Navjot Hassan DO Signed DISCHARGE INSTRUCTION Observed: 03/15/2018 Status: F Source: [place] 9:20 AM [facility] REPOSITORY [facility] Medical Records Department [address] [place] [address] Instructions for Home/Discharge Instructions 03/15/18 0919 MR#: [id number] Acct: [id number] Name: GIOVANA POWELL Rep #: [id number] : 1950 67 From: Kaitlin Sanderson MD PCP: Esperanza Baird MD Status: ADM IN Discharge Diet: Light diet - advance as tolerated Discharge Activity: May Not Drive - for 2-3 days or while taking narcotic pain medications., - - Do not drive, work heavy equipment or sign legal documents for 24 hours. May shower in (days): 1 - with the bandage in place. Additional Activity Instructions:: Pain medication may cause nausea. You should typically eat light foods as you take your pain medications. Pain medication may also cause constipation. If this is a problem for you, please discuss with your doctor. Call your doctor if your incision/area has: Continuous Slow Oozing, Sudden Increased Bleeding, Increased Pain/ Swelling, Increased Redness, Foul Smelling Discharge Call your doctor if you observe: Fever of 101 or Higher Suture Line Care: Avoid Pulling/Pushing, Avoid Pinching/Bending Additional Dressing/Incision Instructions:: Leave operative bandaids on for 2 days. When you remove dressing, leave Steri-Strips on until your follow-up appointment, or until the Steri-Strips fall off on their own. Allergies/Adverse Reactions: Allergies lurasidone [From Latuda] Allergy (Verified 03/13/18 00:15) Other naproxen Allergy (Verified 03/13/18 00:15) Hives paliperidone [From Invega] Allergy (Verified 03/13/18 00:15) increased psychiatric symptoms trazodone Allergy (Verified 03/13/18 00:15) Other theophylline Adverse Reaction (Verified 03/13/18 00:15) Other SLOBID Adverse Reaction (Uncoded 03/13/18 00:15) Other Medications to take at Discharge Lisinopril [Zestril] 20 mg PO DAILY 03/24/17 Divalproex (ER) [Depakote ER] 500 mg PO BID 06/20/17 Pravastatin [Pravachol] 40 mg PO QHS 12/18/17 Buprenorphine HCl/Naloxone HCl [Suboxone 8 mg-2 mg Sl Film] 2 ea SL DAILY 12/24/17 benztropine 0.5 mg tablet 0.5 mg PO BID 01/06/18 calcium carbonate 600 mg calcium (1,500 mg) tablet 600 mg PO BID #60 tab 01/06/18 cholecalciferol (vitamin D3) 50,000 unit capsule 50,000 unit PO QWEEK #8 cap 01/06/18 olanzapine 10 mg tablet 10 mg PO QHS tab 01/06/18 pantoprazole 20 mg tablet,delayed release 20 mg PO QDAY 01/06/18 clonidine HCl 0.1 mg tablet 0.1 mg PO TID #90 tab 03/11/18 hydralazine 50 mg tablet 50 mg PO TID #90 tab 03/11/18 metoprolol tartrate 25 mg tablet 25 mg PO DAILY #30 tab 03/11/18 Primary Care Physician: Esperanza Baird MD [Primary Care Provider] - Please Follow Up With: Kaitlin Sanderson MD - Please call [phone] to schedule an appointment. When: 7 days after your surgery 03/15/18 0920 <Electronically signed by Kaitlin Sanderson MD> Date Kaitlin Sanderson MD CC: Esperanza Baird MD CBC W/DIFF, AUTOMATED Collected: 03/15/2018 Status: F Source: [place] 5:31 AM [facility] REPOSITORY TYPE CODE TESTS RESULT OUT OF RANGE REFERENCE UNITS LAB L100.1000 4.4-11.0 K/mm3 Normal WBC 7.8 LAB L100.1200 4.2-5.4 M/mm3 Low RBC 3.94 LAB L100.1300 12.0-15.0 g/dl Low HGB 11.8 LAB L100.1400 37-47 % Normal HCT 37.0 LAB L100.1500 81-99 fL Normal MCV 93.9 LAB L100.1600 27.0-32.0 pg Normal MCH 29.9 LAB L100.1700 32-36 g/gl Low MCHC 31.9 LAB L100.1810 11.6-14.6 % Normal RDW CV 13.7 LAB L100.1820 35.1-43.9 fl High RDW SD 47.1 LAB L100.1900 150-450 K/mm3 Normal PLT 407 LAB L100.2000 6.2-12.0 fl Normal MPV 9.5 LAB L100.2100 47-70 % Normal NEUT% 68.9 LAB L100.2200 19-41 % Low LY% 15.4 LAB L100.2300 0-10 % High MONO% 13.2 LAB L100.2400 0-5 % Normal EO% 1.4 LAB L100.2500 0-1 % Normal BASO% 0.1 LAB L100.2550 0.0-0.9 % High IM GRAN % 1.000 Result Comment: IG% - Immature Granulocytes (promyelocytes, myelocytes and metamyelocytes) > 1% indicates that a LEFT SHIFT is Present. LAB L100.2620 2.0-7.7 X10 3/uL Normal Absolute Neut 5.4 LAB L100.2720 0.83-4.51 X10 3/ul Normal Absolute Lymph 1.20 Performed By: #### L100.0100 #### [facility] [address] [place], [address] COMPREHENSIVE METABOLIC Collected: 03/15/2018 Status: F Source: [facility] 5:31 AM [facility] REPOSITORY TYPE CODE TESTS RESULT OUT OF RANGE REFERENCE UNITS LAB L501.0100 74-106 mg/dL High GLU 123 Result Comment: Fasting Glucose result from 100 to 125 mg/dL suggests IMPAIRED HOMEOSTASIS per A.D.A. criteria. Please note revised GLUCOSE reference range effective 2017. LAB L501.1000 7-18 mg/dL Low BUN 5 LAB L501.1100 0.55-1.02 mg/dL Low CREAT,SERUM 0.54 Result Comment: The validity of the calculated GFR AND GFRAA in patients over 70 years has not been determined. Clinical correlation is essential. LAB L501.1110 >60 mL/min Normal EST GFR 119 Result Comment: Non- GFR Calc LAB L501.1115 >60 mL/min Normal EST GFR - AA 144 Result Comment: GFR Calc LAB L501.1255 ml/min Normal Estimated CRCL 74.60 LAB L501.1300 10-20 RATIO Low BUN/CRE 9.2 LAB L501.1500 6.4-8. g/dL Low 2 T PROT 6.1 LAB L501.1800 3.2-5. g/dL Low 0 ALB 2.5 LAB L501.1950 2.2-4. g/dL Normal 2 GLOB 3.6 LAB L501.2000 0.9-2. RATIO Low 4 A/G 0.7 LAB L501.2200 8.5-10 mg/dL Normal .1 CA 8.6 LAB L501.4100 15-37 U/L High AST 130 LAB L501.4305 45-117 U/L High ALK P 276 LAB L501.4405 13-56 U/L High ALT 401 LAB L501.4600 0.20-1 mg/dL Normal .00 T BILI 0.80 LAB L501.5300 136-14 mmol/L Normal 5 NA 140 LAB L501.5600 3.5-5. mmol/L Normal 1 K 3.5 LAB L501.5900 98-107 mmol/L Normal CL 102 LAB L501.6100 21.0-3 mmol/L Normal 2.0 CO2 31.0 LAB L501.6200 5-15 Normal GAP 7 Performed By: #### L500.4050 #### [facility] [address] [place], [place], [address] OPERATIVE REPORT Observed: 03/14/2018 Status: F Source: [place] 10:50 AM [facility] REPOSITORY [facility] Medical Records Department [address] [place] [address] Operative Report 03/14/18 0951 MR#: [id number] Acct: [id number] Name: GIOVANA POWELL Rep #: [id number] : 1950 67 From: Kaitlin Sanderson MD PCP: Esperanza Baird MD Status: ADM IN Y Location: MS3 OW816-2 Report of Operation Date of Procedure: 03/14/18 Pre-Operative Diagnosis: acute cholecystitis Post-Operative Diagnosis: acute cholecystitis, dilated CBD but no stone, lower midline omental adhesions Surgery/Procedure Performed:: laparoscopic cholecystectomy with intraoperative cholangiogram Description of Surgical Findings:: as above home health nurse licensed practical: Boni York Type of Anesthesia:: General Anesthesiologist: Rudy Rawls - ASA3 Specimen's removed: gallbladder Estimated Blood Loss (mL): 60 Fluids Replaced: 1100 Description of Procedure: The patient was brought to the operating suite. Sign in was performed verifying patient, site, position, SCIP antibiotic prophylaxis- gm of Ancef and DVT prophylaxis with SCDs. Following induction of general anesthetic. The patient s abdomen was prepped and draped in the usual fashion. Timeout was performed verifying patient, site, position. Local anesthetic was injected below the umbilicus. Incision made and dissection carried down to the umbilical root fascia. 2 stay sutures were placed. Incision made in the fascia, the peritoneum entered under direct visualization. A 10 mm Quintana trocar was inserted and secured with the stay sutures. Pneumoperitoneum to 15 mmHg was insufflated. Visual inspection revealed edematous gallbladder with adhesions of the transverse mesocolon to the omentum. patient also had adhesions in the lower midline from the umbilicus inferiorly. 3 right upper quadrant 5 ports were placed in the standard position. The gallbladder was grasped retracted upward and outward. Sharp and blunt dissection was used to release the adhesions from the gallbladder. Dissection was carried out in Calot s triangle. Dissection was continued until the cystic artery was clearly dissected and identified. The artery was then doubly clipped proximally singly clipped distally and divided. When a critical view of the neck of the gallbladder funneling of the cystic duct with no signs of aberrant ductal structures were seen, a clip was placed on the neck of the gallbladder cystic duct junction. A partial ductotomy was made. A Cholangiocath was inserted into the duct and secured with a clip. Intraoperative cholangiogram was performed demonstrating filling of the cystic duct filling the common bile duct - which demonstrated dilated common bile duct without filling defect and what appeared to be edema in the ampulla with no evidence of obstruction and emptying into the duodenum without signs of obstruction. 1 mg of glucagonoma was given area and repeat cholangiogram still demonstrated similar findings. The clip and catheter were removed. 2 clips placed on the cystic duct and the cystic duct divided. The gallbladder was then dissected free from the gallbladder fossa using electrocautery. The gallbladder was placed in an Endobag and removed through the umbilical port site. An 0 PDS [id number] suture was placed around the umbilical port site defect. Pneumoperitoneum was reestablished. The gallbladder fossa was checked for hemostasis. With good hemostasis, the area was irrigated and aspirated to clear. Metzenbaum scissors with electrocautery used to dissect the omentum off the lower midline to prevent future risk of bowel obstructions. The 5mm ports were removed under direct visualization with no signs of bleeding. Pneumoperitoneum was released. The Quintana trocar was removed. The umbilical fascial suture was secured area did skin was closed with interrupted 4-0 Monocryl subcuticular sutures. Steri-Strips and bandages were applied. The patient was brought to recovery room in stable condition. - Admit VTE Documentation VTE Present on Admission: No VTE Mechan Device Prophylaxis: SCD's VTE Pharm Prophylaxis ordered?: No 03/14/18 1050 <Electronically signed by Kaitlin Sanderson MD> Date Kaitlin Sanderson MD CC: Esperanza Baird MD; Kaitlin Sanderson MD Signed GALLBLADDER Observed: 03/14/2018 Status: F Source: [place] 7:30 AM [facility] REPOSITORY Patient: GIOVANA POWELL : 1950 (67/F) Acct Num: [id number] Phys: Navjot Hassan DO Unit Num: [id number] Loc: MS3 [id number] Specimen: [id number] Received: 03/16/18 0857 Spec Type: GALLBLADDE TISSUES TISSUES: Gallbladder, NOS GROSS DESCRIPTION Received is one container labeled with the patient's name and designated gallbladder. The specimen consists of a gallbladder measuring 9 cm in length and up to 4 cm in diameter. The external surface is pink- muñoz, smooth and glistening for the most part. Focally it is granular, hemorrhagic and contains cautery artifact. The gallbladder contains green-yellow mucoid bile and one brown ovoid stone measuring 0.9 x 0.5 x 0.4 cm. The mucosa is bile-stained and without any mass lesions. The gallbladder wall measures up to 0.3 cm in thickness. The mucosa also shows several yellowish streaks consistent with cholesterolosis. Employee Benefits Director sections from the gallbladder and the cystic duct are submitted in one cassette. / SJ:theodore 03/16/18 TC:2 CPT: 06741 HEADER OPERATION: Laparoscopic cholecystectomy with IOC PRE-OP DIAGNOSIS: Cholecystitis TISSUE SUBMITTED: Gallbladder MICROSCOPIC DESCRIPTION Slides are reviewed. MICROSCOPIC DIAGNOSIS Gallbladder, cholecystectomy: Acute and chronic cholecystitis and cholelithiasis. AM:theodore 03/17/18 Signed Sha Bacon 03/17/18 <signature on file> Performed By: #### PGALL #### [facility] [address] [place], [address] CBC W/DIFF, AUTOMATED Collected: 03/14/2018 Status: F Source: [place] 4:36 AM [facility] REPOSITORY TYPE CODE TESTS RESULT OUT OF RANGE REFERENCE UNITS LAB L100.1000 4.4-11.0 K/mm3 Normal WBC 8.2 LAB L100.1200 4.2-5.4 M/mm3 Low RBC 4.13 LAB L100.1300 12.0-15.0 g/dl Normal HGB 12.6 LAB L100.1400 37-47 % Normal HCT 38.8 LAB L100.1500 81-99 fL Normal MCV 93.9 LAB L100.1600 27.0-32.0 pg Normal MCH 30.5 LAB L100.1700 32-36 g/gl Normal MCHC 32.5 LAB L100.1810 11.6-14.6 % Normal RDW CV 13.5 LAB L100.1820 35.1-43.9 fl High RDW SD 46.2 LAB L100.1900 150-450 K/mm3 Normal PLT 406 LAB L100.2000 6.2-12.0 fl Normal MPV 9.1 LAB L100.2100 47-70 % High NEUT% 70.6 LAB L100.2200 19-41 % Low LY% 12.2 LAB L100.2300 0-10 % High MONO% 13.8 LAB L100.2400 0-5 % Normal EO% 1.8 LAB L100.2500 0-1 % Normal BASO% 0.1 LAB L100.2550 0.0-0.9 % High IM GRAN % 1.500 Result Comment: IG% - Immature Granulocytes (promyelocytes, myelocytes and metamyelocytes) > 1% indicates that a LEFT SHIFT is Present. LAB L100.2620 2.0-7.7 X10 3/uL Normal Absolute Neut 5.8 LAB L100.2720 0.83-4.51 X10 3/ul Normal Absolute Lymph 1.00 Performed By: #### L100.0100, L500.4050, L501.2400 #### [facility] [address] [place], [place], [address] COMPREHENSIVE METABOLIC Collected: 03/14/2018 Status: F Source: [facility] 4:36 AM [facility] REPOSITORY Order Comment: HAS TO BE RESULTS BY 0600!!! TYPE CODE TESTS RESULT OUT OF RANGE REFERENCE UNITS LAB L501.0100 74-106 mg/dL Normal GLU 100 Result Comment: Fasting Glucose result from 100 to 125 mg/dL suggests IMPAIRED HOMEOSTASIS per A.D.A. criteria. Please note revised GLUCOSE reference range effective 2017. LAB L501.1000 7-18 mg/dL Normal BUN 8 LAB L501.1100 0.55-1.02 mg/dL Normal CREAT,SERUM 0.61 Result Comment: The validity of the calculated GFR AND GFRAA in patients over 70 years has not been determined. Clinical correlation is essential. LAB L501.1110 >60 mL/min Normal EST GFR 104 Result Comment: Non- GFR Calc LAB L501.1115 >60 mL/min Normal EST GFR - AA 126 Result Comment: GFR Calc LAB L501.1255 ml/min Normal Estimated CRCL 66.04 LAB L501.1300 10-20 RATIO Normal BUN/CRE 13.1 LAB L501.1500 6.4-8. g/dL Normal 2 T PROT 6.6 LAB L501.1800 3.2-5. g/dL Low 0 ALB 2.8 LAB L501.1950 2.2-4. g/dL Normal 2 GLOB 3.8 LAB L501.2000 0.9-2. RATIO Low 4 A/G 0.7 LAB L501.2200 8.5-10 mg/dL Low .1 CA 8.1 LAB L501.4100 15-37 U/L High AST 306 LAB L501.4305 45-117 U/L High ALK P 342 LAB L501.4405 13-56 U/L High ALT 641 LAB L501.4600 0.20-1 mg/dL High .00 T BILI 2.30 LAB L501.5300 136-14 mmol/L Normal 5 NA 137 LAB L501.5600 3.5-5. mmol/L Normal 1 K 4.4 LAB L501.5900 98-107 mmol/L Normal CL 101 LAB L501.6100 21.0-3 mmol/L Normal 2.0 CO2 30.0 LAB L501.6200 5-15 Normal GAP 6 Performed By: #### L100.0100, L500.4050, L501.2400 #### [facility] [address] [place], [place], [id number] AMYLASE Collected: 03/14/2018 Status: F Source: [place] 4:36 AM [facility] REPOSITORY Order Comment: HAS TO BE RESULTS BY 0600!!! TYPE CODE TESTS RESULT OUT OF RANGE REFERENCE UNITS LAB L501.2400 25-115 U/L Normal EMILIA 26 Performed By: #### L100.0100, L500.4050, L501.2400 #### [facility] [address] [place], [place], [id number] PARTIAL THROMBOPLAST Collected: 03/14/2018 Status: F Source: [place] TIME 4:36 AM [facility] REPOSITORY Order Comment: HAS TO BE RESULTS BY 0600!! TYPE CODE TESTS RESULT OUT OF REFERENCE UNITS RANGE LAB L300.4310 24.1-36.2 Seconds High PTT 36.8 Performed By: #### L300.4310 #### [facility] [address] [place], [address] CNOP Observed: 03/14/2018 Status: COMPLETED Source: [place] 12:00 AM [facility] REPOSITORY Operative Note (Enc) (GENSWS) Progress Notes: Kaitlin Sanderson MD 03/21/2018 10:40 AM Signed OPERATIVE NOTATION FOR [facility] SURGICAL PROCEDURE. March 14, 2018 Jacklyn Powell 1950 [id number] female PROCEDURE: LAPAROSCOPIC CHOLECYSTECTOMY WITH INTRAOPERATIVE CHOLEANGIOGRAM - [id number] SURGEON: King Sanderson M.D. FACS COUNSELOR AIDE: None DEPT: WQ PROVIDER: [id number] Sanderson MD POS: [id number] DIAGNOSIS: (K80.20) Calculus of gallbladder without cholecystitis without obstruction (primary encounter diagnosis) ASA CLASS: 3 - Severe FINDINGS: COMPLICATIONS: None PMHx - PAST MEDICAL HISTORY Diagnosis Date - Acid reflux - Arthritis - Back pain, chronic DJD - Bipolar affective disorder (HCC) - Chronic obstructive pulmonary disease (COPD) (HCC) - Cocaine addiction (HCC) as of 12-28-12, 120 days into recovery - Constipation - Depression - Essential hypertension, benign - Hypercholesteremia - Unspecified epilepsy without mention of intractable epilepsy Left temopral lobe seiazures, 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 Kaitlin Sanderson MD Encounter Status:Closed by KAITLIN SANDERSON MD on 03/21/18 CONSULTATION Observed: 03/13/2018 Status: F Source: [place] 8:45 PM [facility] REPOSITORY [facility] Medical Records Department [address] [place] [address] Consultation 03/13/182006 MR#: [id number] Acct: [id number] Name: GIOVANA POWELL Rep #: [id number] : 1950 67 From: Mario Vyas MD PCP: Esperanza Baird MD Status: ADM IN Y Location: MS3 [id number] Problem List (1) Obstructive jaundice Status: Acute (2) Cholecystitis Status: Acute Reason for Consult Date of Consultation: 03/13/18 Reason for Consultation: Elevated LFTs History of Present Illness: The patient is a 67 year old F who is here with right upper quadrant pain and nausea and vomiting. I was consulted by Dr. Sanderson for possible ERCP. The patient reports that yesterday evening she started having nausea and vomiting and right upper quadrant pain after eating a burger. She reports that she has had gastritis with extreme weight loss in the past. At the current time she does not report much abdominal pain. She does not describe any fevers or chills. Past Medical History Past Medical History (Chronic Problems): Chronic Problems (Last Reviewed 02/04/18 @ 13:45 by Candy Davenport) Dissociative identity disorder (Chronic) Seizure (Chronic) GERD (gastroesophageal reflux disease) (Chronic) Hyperlipidemia (Chronic) Hepatitis (Chronic) Osteopenia (Chronic) Chronic back pain (Chronic) Rheumatoid arthritis (Chronic) COPD (chronic obstructive pulmonary disease) (Chronic) Manic depressive disorder (Chronic) Hypertension (Chronic) Tobacco abuse (Chronic) Noncompliance (Chronic) Bipolar disorder (Chronic) Opioid dependence (Chronic) Allergies lurasidone [From Latuda] Allergy (Verified 03/13/18 00:15) Other naproxen Allergy (Verified 03/13/18 00:15) Hives paliperidone [From Invega] Allergy (Verified 03/13/18 00:15) increased psychiatric symptoms trazodone Allergy (Verified 03/13/18 00:15) Other theophylline Adverse Reaction (Verified 03/13/18 00:15) Other SLOBID Adverse Reaction (Uncoded 03/13/18 00:15) Other Home Medications: Ambulatory Orders Medication Instructions Recorded Surgical History: hysterectomy, - - C-sections - 3, abdominal hysterectomy, hernia repair with mesh?. Psychiatric History: Anxiety, Bipolar, Depression DESK SERGEANT History: No pertinent DESK SERGEANT history Smoking Status: Current every day smoker - *Family History Maternal History Items: No pertinent history Paternal History Items: No pertinent history Sibling History Items: Cancer Review of Systems Constitutional: Denies: Chills, Fever HEENT: Denies: Difficulty Swallowing Cardiovascular: Denies: Chest Pain Respiratory: Denies: Cough Gastrointestinal: Reports: Abdominal Pain, Nausea, Vomiting Genitourinary: Denies: Dysuria Musculoskeletal: Denies: Joint Tenderness Skin: Denies: Dryness Neurological: Denies: Balance problems Hematologic/ Lymphatic: Denies: Anemia Patient Problems: Active and Suspected Problems (Last Reviewed 02/04/18 @ 13:45 by Candy Davenport) Transaminitis (Acute) Cholecystitis (Acute) Obstructive jaundice (Acute) - Physical Exam General: Alert, Oriented x3, Cooperative, No apparent distress HEENT: Atraumatic, PERRLA, EOMI Oral: Moist Mucosa Neck: No JVD Lungs: Normal air movement Cardiovascular: Regular rate, Regular Rhythm Abdomen: Soft, Non-Distended, Tender - Mild tenderness to deep palpation of the right upper quadrant with no guarding or rebound. Extremities: No clubbing Skin: No rashes Musculoskeletal: No Muscle Wasting Neurological: Cranial nerves II-XII grossly intact Psych/Mental Status: Normal Affect Vital Signs Temp Pulse Resp BP Pulse Ox 98.4 F 72 18 108/66 94 03/13/18 16:23 03/13/18 16:23 03/13/18 16:23 03/13/18 16:23 03/13/18 16:23 Oxygen Delivery Method Room Air Weight: 167 lb Body Mass Index (BMI) 32.5 Laboratory Tests Past 24 Hrs WBC RBC Hgb Hct MCV MCH MCHC RDW WBC 15.5 H WBC WBC RBC Hgb Hct MCV MCH MCHC RDW RDW Differential Clinical Impression(s) from Imaging Studies Acute Abdomen Series 03/13/18 00:34 IMPRESSION: Normal x-ray examination of the chest, abdomen, and pelvis. Electronically Signed: Lilian Sandoval MD at 2:16 EDT Tel , Service support , Gallbladder Ultrasound 03/13/18 05:55 IMPRESSION: Gallbladder Wall thickening, pericholecystic fluid, sludge, there is borderline common duct distention cholelithiasis/sludge. This constellation of findings is associated with acute cholecystitis in the appropriate clinical setting. Sonographic Valiente sign is not described as positive or negative. The differential for wall thickening can be associated with underlying hepatic disease. Benign-appearing right renal cyst N.B. : The above information has been verbally conveyed by Oxana Wagoner MD to DR. Parikh, Covering Physician, on 03/13/2018 10:04:06 (ET). Electronically Signed: Oxana Wagoner MD at 9:43 EDT Tel , Service support , N.B. : The above information has been verbally conveyed by Oxana Wagoner MD to DR. Parikh, Covering Physician, on 03/13/2018 10:04:06 (ET). Abdomen/Pelvis CT 03/13/18 08:30 IMPRESSION: Findings are highly suspicious for acute cholecystitis. This is concordant with the recent ultrasound findings showing the same. Hepatic steatosis. 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 Distention of the common duct is 6.7 mm Benign appearing right renal cyst. Diverticulosis without diverticulitis. Electronically Signed: Oxana Wagoner MD at 11:42 EDT Tel , Service support , Assessment/Plan Active and Suspected Problems (Last Reviewed 02/04/18 @ 13:45 by Candy Davenport) Transaminitis (Acute) Cholecystitis (Acute) Obstructive jaundice (Acute) 67-year-old female with obstructive jaundice and possible acute cholecystitis. 1. The patient has experienced sudden onset right upper quadrant pain. She had an ultrasound which showed pericholecystic fluid. At that time her white count was slightly elevated at 12. She was admitted and morning labs showed increased elevation of white count as well as increase in LFTs. She had a CT scan done this afternoon which showed slightly dilated common bile duct as well as thickened gallbladder wall with pericholecystic fluid suggestive of acute cholecystitis. 2. Currently the patient is not having much right upper quadrant pain. I am getting a stat hepatic panel. If the hepatic panel has risen since this morning I will plan for ERCP in the morning. If the hepatic panel has decreased I will have Dr. Sanderson perform his laparoscopic cholecystectomy with cholangiogram to check for filling defects in the common bile duct. If a filling defect is encountered I will take her for ERCP the following day. 3. I explained ERCP in detail to the patient. I explained the risks of the procedure including but not limited to bleeding, infection, perforation of the bile duct or bowels, pancreatitis. I also explained that if I was unable to remove the obstructing stone I would have to place a biliary stent and repeat ERCP in the future. I also explained the possibility of being unable to cannulate the duct. All patient's questions were answered and the patient consents to procedure. I will make the patient n.p.o. and on IV fluids. Mario Vyas MD Pager: [facility] [address] [place] [address] [address] [place] [address] Office: [id number] <Electronically signed by Mario Vyas MD> Date Mario Vyas MD Cosigner Signature (if applicable): Date CC: Esperanza Baird MD Signed LIVER PROFILE Collected: 03/13/2018 Status: F Source: [place] 7:55 PM [facility] REPOSITORY TYPE CODE TESTS RESULT OUT OF RANGE REFERENCE UNITS LAB L501.1500 6.4-8.2 g/dL Normal T PROT 6.5 LAB L501.1800 3.2-5.0 g/dL Low ALB 2.9 LAB L501.1950 2.2-4.2 g/dL Normal GLOB 3.6 LAB L501.4100 15-37 U/L High AST 428 LAB L501.4305 45-117 U/L High ALK P 357 LAB L501.4405 13-56 U/L High ALT 715 LAB L501.4600 0.20-1.00 mg/dL High T BILI 3.30 LAB L501.4700 0.00-0.30 mg/dL High D BILI 2.66 Performed By: #### L500.3400 #### [facility] [address] [place], [address] CHOLANGIOGRAM/ O Observed: 03/13/2018 Status: F Source: [place] R,INITIAL 12:16 PM [facility] REPOSITORY [facility] Imaging Services [address] [place] [address] Cholangiogram/ O R,Initial MR#: [id number] Acct: [id number] Name: GIOVANA POWELL Rep #: [id number] : 1950 F 67 From: Oxana Wagoner MD PCP: Esperanza Baird MD Status: ADM IN Study: Cholangiogram/ O R,Initial Date of Exam: 03/14/18 Exam# [id number] Ordering Dr: Kaitlin Sanderson MD CLINICAL HISTORY: Female, 67 years old. Cholecystitis, laparoscopic cholecystectomy PROCEDURE: To record Fluoroscopic imaging, and image description only. FLUOROSCOPY TIME (if supplied): (0:33) minutes/seconds Placement of the catheter and the procedure were performed by: Attending physician Fluoroscopy was provided by technologist, who was present in the room time of the procedure. TECHNIQUE: A series of cine images is provided for interpretation, these images are performed in intraoperative basis. This is a reviewed the images only. FINDINGS: There is a catheter inserted into the cystic duct which progressively shows homogeneous distention of the common duct with a small amount of contrast appearing to extend into the pancreatic duct or an accessory duct. There is no evidence of extravasation out of the cystic duct. At the time of this study the gallbladder has been removed. There is contrast within the small bowel. Other than a few gas bubbles, There are no visualized filling defects. There is no visualized extravasation. RAD/Cholangiogram/ O R,Initial IMPRESSION: Fluoroscopy utilized to evaluate intraoperative cholangiogram as detailed above on the images provided recommend correlation with procedure notes and intraoperative observations. Electronically Signed: Oxana Wagoner MD at 9:35 EDT Tel , Service support , CC: Esperanza Baird MD; Kaitlin Sanderson MD Stallion Manager: Signed PROTHROMBIN TIME W/INR Collected: 03/13/2018 Status: F Source: [place] 12:03 PM [facility] REPOSITORY TYPE CODE TESTS RESULT OUT OF RANGE REFERENCE UNITS LAB L300.4150 11.7-14.9 SECONDS Normal PROTIME 14.8 LAB L300.4200 Normal INR 1.2 Performed By: #### L300.3900 #### [facility] [address] [facility] [place], [address] CONSULTATION Observed: 03/13/2018 Status: F Source: [place] 11:20 AM [facility] REPOSITORY [facility] Medical Records Department [address] [place] [address] Consultation 03/13/18 1054 MR#: [id number] Acct: [id number] Name: GIOVANA POWELL Rep #: [id number] : 1950 67 From: Kaitlin Sanderson MD PCP: Esperanza Baird MD Status: ADM IN [id number] Reason for Consult Date of Consultation: 03/13/18 History of Present Illness: The patient is a 67 year old F presents with a 1 day history of upper abdominal pain. the patient presented emerged from an overnight and had complaints which are felt to be possibly consistent with biliary colic. She noted abdominal pain which onset earlier in the day. She then had a hamburger and following that her pain was worse.she did vomit after eating a hamburger. When she presented to the emergency department she was complaining of a feeling of diaphoresis but denied fever or chills. She noted no change in her bowel habits or other difficulties. In the emergency department, she underwent a KUB which demonstrated no specific abnormalities. Her white blood cell count was mildly elevatedat 12,000. Her AST. Her AST/transaminases were significantly elevated in the 900 range. Her alkaline phosphatase and bilirubin were just mildly elevated. Lipase was obtained and this was not elevated. I was contacted with concern of possible cholecystitis. The patient was admitted with plans for ultrasound to be obtained in the morning. The patient is a complicated past history medical history. She has a previous history of significant drug abuse. She states she has been clean for some time. Patient states she was diagnosed with hepatitis at the age of 10 because when she was a child doctors did not have disposable needles and syringes. she has a previous titer that demonstrates positivity for hepatitis B, but then additional serum studies are negative in the [facility] system. the patient's previous history includes cocaine addiction. She has a degree of COPD. She continues to smoke. She has a previous history of epilepsy with seizures. She has high blood pressure, depression, arthritis, reflux and constipation issues in addition to bipolar affective disorder and chronic back pain. The patient said previous hernia repairs. She had 3 sections and then the hysterectomy, I recall. she then had in 1997, an incisional hernia repair, I understand that the Pfannenstiel incision site. as I'm evaluating the patient this morning. She overall states that she is relatively comfortable with minimal pain currently. The technologist is currently performing the ultrasound at the bedside. There appears to be sludge or possibly 1 stone in the gallbladder. The gallbladder wall to me did not appear specifically thickened, but there was some cholecystic fluid. Interestingly enough, she had a negative Valiente sign on ultrasound and was nontender in the area to my exam. There was a suggestion of intrahepatic ductal dilatation, even though the common bile duct did not seem specifically dilated and there was a question of a dilated pancreatic duct. Repeat laboratory studies this morning demonstrated an elevated white blood cell count now of 15,000. Her bilirubin is increased to 2.7. Past Medical History Past Medical History (Chronic Problems): Chronic Problems (Last Reviewed 02/04/18 @ 13:45 by Candy Davenport) Dissociative identity disorder (Chronic) Seizure (Chronic) GERD (gastroesophageal reflux disease) (Chronic) Hyperlipidemia (Chronic) Hepatitis (Chronic) Osteopenia (Chronic) Chronic back pain (Chronic) Rheumatoid arthritis (Chronic) COPD (chronic obstructive pulmonary disease) (Chronic) Manic depressive disorder (Chronic) Hypertension (Chronic) Tobacco abuse (Chronic) Noncompliance (Chronic) Bipolar disorder (Chronic) Opioid dependence (Chronic) Allergies lurasidone [From Latuda] Allergy (Verified 03/13/18 00:15) Other naproxen Allergy (Verified 03/13/18 00:15) Hives paliperidone [From Invega] Allergy (Verified 03/13/18 00:15) increased psychiatric symptoms trazodone Allergy (Verified 03/13/18 00:15) Other theophylline Adverse Reaction (Verified 03/13/18 00:15) Other SLOBID Adverse Reaction (Uncoded 03/13/18 00:15) Other Home Medications: Ambulatory Orders Medication Instructions Recorded Surgical History: hysterectomy, - - C-sections - 3, abdominal hysterectomy, hernia repair with mesh?. Psychiatric History: Anxiety, Bipolar, Depression DESK SERGEANT History: No pertinent DESK SERGEANT history Smoking Status: Current every day smoker - *Family History Maternal History Items: No pertinent history Paternal History Items: No pertinent history Sibling History Items: Cancer Review of Systems Constitutional: Reports: Anorexia. Denies: Chills, Fever, Weight Change HEENT: Denies: Head Aches, Sinus Congestion, Sinus Drainage Cardiovascular: Denies: Chest Pain, Palpitations Respiratory: Denies: Cough, Shortness of breath at rest, Sputum production Gastrointestinal: Reports: Abdominal Pain, Nausea, Vomiting Genitourinary: Denies: Dysuria Musculoskeletal: Denies: Joint Pain, Joint Tenderness Skin: Denies: Rash, Wounds Neurological: Denies: Numbness, Tingling, Focal weakness Psychiatric: Denies: Anxiety, Depression, Homicidal Ideations, Suicidal Ideations Hematologic/ Lymphatic: Denies: Easy Bruising, Easy Bleeding Patient Problems: Active and Suspected Problems (Last Reviewed 02/04/18 @ 13:45 by Candy Davenport) Transaminitis (Acute) Cholecystitis (Acute) - Physical Exam General: Alert, Oriented x3, Cooperative Lungs: Clear to auscultation, Normal air movement Cardiovascular: Regular rate, Regular Rhythm Abdomen: Bowel Sounds Present, Soft, Non Tender - the right upper quadrant with a negative Valiente sign, mildly tender in the epigastrium over the area of the pancreas Vital Signs Temp Pulse Resp BP Pulse Ox 99.6 F H 92 16 174/93 H 98 03/13/18 04:32 03/13/18 09:02 03/13/18 04:32 03/13/18 05:10 03/13/18 04:32 Oxygen Delivery Method Room Air Weight: 75.75 kg Body Mass Index (BMI) 32.5 Laboratory Tests Past 24 Hrs WBC RBC Hgb Hct MCV MCH WBC RBC Hgb Hct MCV MCH MCHC RDW RDW Differential Plt Count MPV Immature Gran % (Auto) Assessment/Plan Active and Suspected Problems (Last Reviewed 02/04/18 @ 13:45 by Candy Davenport) Transaminitis (Acute) Cholecystitis (Acute) abdominal pain, questionable biliary colic, acute cholecystitis versus common duct stone versus atypical hepatitis picture. Given the patient's relatively complicated history, questionable history of hepatitis, and transaminases elevated out of proportion to alkaline phosphatase and bilirubin. Initially, I was more likely entertaining the possibilities of hepatitis picture. With the patient's now increased bilirubin and findings on the ultrasound from the others not a large amount of stones, cholecystitis is higher up on my differential. We'll others not significant ductal dilatation, there is a rapid increase in her bilirubin level. Again, the exact etiology is not specifically clear. Given the question of pancreatic ductal dilatation, and her tenderness of her pancreas. Even in the face of a normal lipase, I reviewed his CT scan of the abdomen pelvis to assure that I don't see any pancreatic abnormalities or other causes for her abnormalities. Additionally, the patient on previous admission had an elevated ammonia level, which has been concerned for underlying liver issues. The liver appeared smooth. On ultrasound, but I would like to obtain an CT scan. A second imaging modality to assure I don't see signs of early cirrhosis, portal hypertension, or other abnormalities which could be confused for pericholecystic fluid. If this is unremarkable, I would plan to repeat laboratory studies in the morning area did if the patient's clinical exam and studies and again more consistently with acute cholecystitis, I will then plan for laparoscopic cholecystectomy. If the patient's bilirubin continues to increase significantly. I would consider ERCP prior to laparoscopic cholecystectomy. I spoke with Dr. Raymond Vyas who is willing to evaluate the patient and would consider ERCP in the above scenario. I spoke with Dr. Parikh directly and we discussed the above findings. Given her elevated white blood cell count. I'm comfortable with starting somewhat empiric IV antibiotics. 03/13/18 1120 <Electronically signed by Kaitlin Sanderson MD> Date Kaitlin Sanderson MD Cosigner Signature (if applicable): Date CC: Esperanza Baird MD Signed AMMONIA Collected: 03/13/2018 Status: F Source: [place] 8:55 AM [facility] REPOSITORY TYPE CODE TESTS RESULT OUT OF RANGE REFERENCE UNITS LAB L503.5510 11-32 umol/L Normal AMMONIA 24.0 Performed By: #### L503.5510 #### [facility] [address] [place], [place], [id number] LIVER PROFILE Collected: 03/13/2018 Status: F Source: [place] 8:55 AM [facility] REPOSITORY TYPE CODE TESTS RESULT OUT OF RANGE REFERENCE UNITS LAB L501.1500 6.4-8.2 g/dL Normal T PROT 7.1 LAB L501.1800 3.2-5.0 g/dL Normal ALB 3.2 LAB L501.1950 2.2-4.2 g/dL Normal GLOB 3.9 LAB L501.4100 15-37 U/L High AST 823 LAB L501.4305 45-117 U/L High ALK P 389 LAB L501.4405 13-56 U/L High ALT 945 LAB L501.4600 0.20-1.00 mg/dL High T BILI 2.70 LAB L501.4700 0.00-0.30 mg/dL High D BILI 2.01 Performed By: #### L500.3400, L501.2450 #### [facility] [address] [place], [place], [id number] LIPASE Collected: 03/13/2018 Status: F Source: [place] 8:55 AM [facility] REPOSITORY TYPE CODE TESTS RESULT OUT OF RANGE REFERENCE UNITS LAB L501.2450 73-393 U/L Normal LIPASE 74 Performed By: #### L500.3400, L501.2450 #### [facility] [address] [place], [place], [id number] URINE DRUG SCREEN Collected: 03/13/2018 Status: F Source: [place] (VISTA) 8:35 AM [facility] REPOSITORY Order Comment: List of Drugs Taken or Suspected? UNK TYPE CODE TESTS RESULT OUT OF RANGE REFERENCE UNITS LAB L505.0075 TO BE Normal CONFIRMED Result Comment: CONFIRMATORY TESTING FOR ALL POSITIVE URINE DRUG SCREEN RESULTS WILL ONLY BE SENT OUT UPON PHYSICIAN ORDER. VISTA Urine Drug Screen methods provide only preliminary analytical test results. A more specific alternate chemical method must be used in order to obtain a confirmed analytical result. Gas chromatography/mass spectrometery (GC/MS) is the preferred confirmatory method. Clinical consideration and professional judgement should be applied to any drug of abuse test result, particularly when preliminary positive results are used. URINE TCA TESTING MUST BE ORDERED SEPARATELY. USE TEST MNEMONIC: UTCA LAB L505.5005 VISTA UDS PH 7 Normal LAB L505.5015 <1000 ng/mL AMPHETAMINES Normal NEGATIVE LAB L505.5025 < 200 ng/mL BARBITIURATES Normal NEGATIVE LAB L505.5035 < 200 ng/mL BENZODIAZIPINE Normal NEGATIVE LAB L505.5045 < 300 ng/mL COCAINE Normal NEGATIVE LAB L505.5055 < 500 ng/mL ECSTACY Normal NEGATIVE LAB L505.5065 < 300 ng/mL METHADONE Normal NEGATIVE LAB L505.5075 < 300 ng/mL OPIATES Normal NEGATIVE LAB L505.5085 < 25 ng/mL PCP Normal NEGATIVE LAB L505.5095 < 50 ng/mL THC Normal NEGATIVE Performed By: #### L505.5000 #### [facility] [address] [facility] [place], [address] CT ABD/PELVIS W/WO Observed: 03/13/2018 Status: F Source: [place] CONTRAST 8:31 AM [facility] REPOSITORY [facility] Imaging Services [address] [place] [address] CT Abd/Pelvis W/WO Contrast MR#: [id number] Acct: [id number] Name: GIOVANA POWELL Rep #: [id number] : 1950 F 67 From: Oxana Wagoner MD PCP: Esperanza Baird MD Status: ADM IN Study: CT Abd/Pelvis W/WO Contrast Date of Exam: 03/13/18 Exam# [id number] Ordering Dr: Kaitlin Sanderson MD STUDY: CT ABDOMEN AND PELVIS WITH AND WITHOUT CONTRAST REASON FOR EXAM: Female, 67 years old. Right upper quadrant pain RADIATION DOSAGE (If Supplied By Facility): CTDIvol = ( 17.26 ) mGy, DLP = ( 1357.29 ) mGycm TECHNIQUE: Transaxial images were obtained from the dome of the diaphragm to the symphysis pubis without oral contrast. 100mL ml of Isovue 300 contrast was administered. Sagittal and coronal images were reconstructed. Individualized dose optimization techniques were used for this CT. COMPARISON: Limited comparison to CT chest dated June 20, 2017 FINDINGS: There is a calcified granuloma in the right lower lobe. There is visualized coronary calcification. The liver is borderline enlarged and fatty infiltrated. There is a thick walled appearance of the gallbladder with pericholecystic fluid. The common duct measures up to 6.7 mm. There are multiple benign calcified granulomata of the spleen. Normal pancreas. Normal bilateral adrenal glands. There is a benign-appearing right renal cyst measuring 6.7 x 9.5 mm. Normal left kidney. There is a minimal hiatal hernia. Normal small intestine. There is contrast within the stomach and small bowel without evidence of obstruction. There is diverticulosis of the colon without evidence of diverticulitis. The appendix is visualized and appears normal. The aorta is partially calcified. Normal inferior vena cava. Normal retroperitoneum. Normal urinary bladder. There is absence of the uterus consistent with a prior hysterectomy. There is a small umbilical hernia containing fat. There is slight anterolisthesis of L4 on L5. There is a broad disc bulge at L4-L5 with moderate neural foraminal narrowing without central stenosis facet arthropathy. At L5-S1 is a left lateral disc osteophyte with moderate left neural foraminal narrowing. There is facet arthropathy. There is degenerative change of the SI joints. CT/CT Abd/Pelvis W/WO Contrast IMPRESSION: Findings are highly suspicious for acute cholecystitis. This is concordant with the recent ultrasound findings showing the same. Hepatic steatosis. 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 Distention of the common duct is 6.7 mm Benign appearing right renal cyst. Diverticulosis without diverticulitis. Electronically Signed: Oxana Wagoner MD at 11:42 EDT Tel , Service support , CC: Esperanza Baird MD; Kaitlin Sanderson MD Stallion Manager: Signed CBC W/DIFF, AUTOMATED Collected: 03/13/2018 Status: F Source: [place] 6:06 AM [facility] REPOSITORY TYPE CODE TESTS RESULT OUT OF RANGE REFERENCE UNITS LAB L100.1000 4.4-11.0 K/mm3 High WBC 15.5 LAB L100.1200 4.2-5.4 M/mm3 Normal RBC 4.40 LAB L100.1300 12.0-15.0 g/dl Normal HGB 13.5 LAB L100.1400 37-47 % Normal HCT 41.3 LAB L100.1500 81-99 fL Normal MCV 93.9 LAB L100.1600 27.0-32.0 pg Normal MCH 30.7 LAB L100.1700 32-36 g/gl Normal MCHC 32.7 LAB L100.1810 11.6-14.6 % Normal RDW CV 13.4 LAB L100.1820 35.1-43.9 fl High RDW SD 44.5 LAB L100.1900 150-450 K/mm3 High PLT 529 LAB L100.2000 6.2-12.0 fl Normal MPV 9.6 LAB L100.2100 47-70 % High NEUT% 87.1 LAB L100.2200 19-41 % Low LY% 4.3 LAB L100.2300 0-10 % Normal MONO% 7.8 LAB L100.2400 0-5 % Normal EO% 0.1 LAB L100.2500 0-1 % Normal BASO% 0.1 LAB L100.2550 0.0-0.9 % Normal IM GRAN % 0.600 Result Comment: IG% - Immature Granulocytes (promyelocytes, myelocytes and metamyelocytes) > 1% indicates that a LEFT SHIFT is Present. LAB L100.2620 2.0-7.7 X10 3/uL High Absolute Neut 13.5 LAB L100.2720 0.83-4.51 X10 3/ul Low Absolute Lymph 0.67 Performed By: #### L100.0100 #### [facility] [address] [place], [place], [id number] BASIC METABOLIC Collected: 03/13/2018 Status: F Source: [place] PROFILE (BMP) 6:06 AM [facility] REPOSITORY TYPE CODE TESTS RESULT OUT OF RANGE REFERENCE UNITS LAB L501.0100 74-106 mg/dL Normal GLU 101 Result Comment: Fasting Glucose result from 100 to 125 mg/dL suggests IMPAIRED HOMEOSTASIS per A.D.A. criteria. Please note revised GLUCOSE reference range effective 2017. LAB L501.1000 7-18 mg/dL Normal BUN 12 LAB L501.1100 0.55-1.02 mg/dL Normal CREAT,SERUM 0.70 Result Comment: The validity of the calculated GFR AND GFRAA in patients over 70 years has not been determined. Clinical correlation is essential. LAB L501.1110 >60 mL/min Normal EST GFR 89 Result Comment: Non- GFR Calc LAB L501.1115 >60 mL/min Normal EST GFR - AA 108 Result Comment: GFR Calc LAB L501.1255 ml/min Normal Estimated CRCL 57.55 LAB L501.1300 10-20 RATIO Normal BUN/CRE 17.2 LAB L501.2200 8.5-10 mg/dL Normal .1 CA 8.8 LAB L501.5300 136-14 mmol/L Low 5 NA 135 LAB L501.5600 3.5-5. mmol/L Normal 1 K 4.2 LAB L501.5900 98-107 mmol/L Normal CL 101 LAB L501.6100 21.0-3 mmol/L Normal 2.0 CO2 27.0 LAB L501.6200 5-15 Normal GAP 7 Performed By: #### L500.2500 #### [facility] [address] [place], [place], [id number] HEPATITIS PANEL ACUTE Collected: 03/13/2018 Status: F Source: [place] 6:06 AM [facility] REPOSITORY TYPE CODE TESTS RESULT OUT OF RANGE REFERENCE UNITS LAB L3100.0200 Negative Normal HEP A Negative IgM 6734 LAB L3100.0400 Negative Normal HB Negative SURF AG LAB L3100.0440 Negative Normal HB Negative CORE [id number] LAB L3100.0650 0.0-0.9 s/co ratio Normal HEP C <0.1 AB Result Comment: Negative: < 0.8 Indeterminate: 0.8 - 0.9 Positive: > 0.9 The CDC recommends that a positive HCV antibody result be followed up with a HCV Nucleic Acid Amplification test (635887). Performed at: [facility] [employer] [id number] Functional Director: Mike Up PhD, Phone: [phone] Performed By: #### L3000.0375, L3300.1200 #### [facility] (refer to report for specific site) refer to report for address and phone number ANCA Collected: 03/13/2018 Status: F Source: [place] 6:06 AM [facility] REPOSITORY TYPE CODE TESTS RESULT OUT OF RANGE REFERENCE UNITS LAB L3300.1225 Neg:<1:20 titer CYTOPLASMIC Normal Ab <1:20 LAB L3300.1250 Neg:<1:20 titer PERINUCLEAR Normal Ab <1:20 Result Comment: The presence of positive fluorescence exhibiting P-ANCA or C-ANCA patterns alone is not specific for the diagnosis of Rhoda's Granulomatosis (WG) or microscopic polyangiitis. Decisions about treatment should not be based solely on ANCA IFA results. The International ANCA Group Consensus recommends follow up testing of positive sera with both ID- 3 and MPO-ANCA enzyme immunoassays. As many as 5% serum samples are positive only by EIA. Ref. AM J Clin Pathol 1999;111:507-513. LAB L3300.1285 Neg:<1:20 titer Normal Atypical pANCA <1:20 Result Comment: The atypical pANCA pattern has been observed in a significant percentage of patients with ulcerative colitis, primary sclerosing cholangitis and autoimmune hepatitis. Performed at: [facility] [employer] [id number] Functional Director: Mike Up PhD, Phone: [phone] Performed By: #### L3000.0375, L3300.1200 #### [facility] (refer to report for specific site) refer to report for address and phone number RAFAEL W/ REFLEX MULT Collected: 03/13/2018 Status: F Source: [place] CONFIRM 6:06 AM [facility] REPOSITORY TYPE CODE TESTS RESULT OUT OF RANGE REFERENCE UNITS LAB L3100.5475 Negative Normal Negative RAFAEL-DIRECT Result Comment: Performed at: - [facility] [address] [id number] Functional Director: Mike Up PhD, Phone: [phone] Performed By: #### L3100.5450 #### [facility] (refer to report for specific site) refer to report for address and phone number GALLBLADDER Observed: 03/13/2018 Status: F Source: [place] 4:34 AM [facility] REPOSITORY [facility] Imaging Services [address] [place] [address] Gallbladder MR#: [id number] Acct: [id number] Name: GIOVANA POWELL Rep #: [id number] : 1950 F 67 From: Oxana Wagoner MD PCP: Esperanza Baird MD Status: ADM IN Study: Gallbladder Date of Exam: 03/13/18 Exam# [id number] Ordering Dr: Sadiq Pearce MD STUDY: ABDOMINAL ULTRASOUND - RIGHT UPPER QUADRANT REASON FOR VISIT: Female, 67 years old. Pain, right upper quadrant pain, elevated LFTs TECHNIQUE: Ultrasound evaluation of the right upper quadrant was performed with real-time and static steele-scale imaging. TECHNICAL QUALITY: Adequate. COMPARISON: CT scan chest June 20, 2017, ultrasound July 04, 2013 FINDINGS: Liver: The liver measures 10.4 cm. There is normal echogenicity of the liver. There is borderline intrahepatic ductal dilatation. There is hepatic color flow. The direction of portal flow is hepatopetal. There is no demonstrated mass lesion. Gallbladder: Normal distended gallbladder. The gallbladder wall measures 4.4 mm. There is a negative sonographic Valiente's sign. There is pericholecystic fluid. There is a small amount of sludge within the gallbladder. There is a small echogenic structure without significant shadowing measuring 7.0 mm. Common Bile Duct (C.B.D.): The common bile duct measures 6 mm. Pancreas: Normal size of the head, body of the pancreas. There is normal echogenicity of the pancreas. There is no demonstrated pancreatic mass or cyst. History states distention of the pancreatic duct. The tail the pancreas is not well-visualized. Right Kidney: Normal size of the right kidney. The right kidney measures 12.5 x 5.0 x 4.4 cm. Normal renal cortex. The right cortex measures 1.6 cm. There is a right renal cyst measuring 1.1 x 1.0 x 0.6 cm. There is no right hydronephrosis. US/Gallbladder IMPRESSION: Gallbladder Wall thickening, pericholecystic fluid, sludge, there is borderline common duct distention cholelithiasis/sludge. This constellation of findings is associated with acute cholecystitis in the appropriate clinical setting. Sonographic Valiente sign is not described as positive or negative. The differential for wall thickening can be associated with underlying hepatic disease. Benign-appearing right renal cyst N.B. : The above information has been verbally conveyed by Oxana Wagoner MD to DR. Parikh, Covering Physician, on 03/13/2018 10:04:06 (ET). Electronically Signed: Oxana Wagoner MD at 9:43 EDT Tel , Service support , N.B. : The above information has been verbally conveyed by Oxana Wagoner MD to DR. Parikh, Covering Physician, on 03/13/2018 10:04:06 (ET). CC: Esperanza Baird MD; Sadiq Pearce MD Stallion Manager: Signed HISTORY AND PHYSICAL Observed: 03/13/2018 Status: F Source: [place] EXAM 4:01 AM [facility] REPOSITORY [facility] Medical Records Department [address] [place] [address] History and Physical 03/13/18 0352 MR#: [id number] Acct: [id number] Name: GIOVANA POWELL Rep #: [id number] : 1950 67 From: Sadiq Pearce MD PCP: Esperanza Baird MD Status: ADM IN Y Location: MS3 [id number] Problem List (1) Vitamin D deficiency Status: Acute (2) Bipolar disorder Status: Chronic Qualifiers: (3) COPD (chronic obstructive pulmonary disease) Status: Chronic Qualifiers: (4) Chronic back pain Status: Chronic (5) Dissociative identity disorder Status: Chronic (6) GERD (gastroesophageal reflux disease) Status: Chronic (7) Transaminitis Status: Acute (8) Cholecystitis Status: Acute History of Present Illness Date of Admission: 03/13/18 Chief Complaint: RUQ abdominal pain The patient is a 67 year old female w/ h/o COPD, GERD, lipidemia and hepatitis admitted for transaminitis. She had h/o abdominal pain secondary to greasy food. This morning around 9 AM, she had acute abdominal pain. Pain was sharp and constant. Nothing appeared to make it better or worse. Pain was associated with n/v. She had two bite of a hamburger this evening and vomited it up. She has no other complaint. Past Medical History Past Medical History (Chronic Problems): Chronic Problems (Last Reviewed 02/04/18 @ 13:45 by Candy Davenport) Dissociative identity disorder (Chronic) Seizure (Chronic) GERD (gastroesophageal reflux disease) (Chronic) Hyperlipidemia (Chronic) Hepatitis (Chronic) Osteopenia (Chronic) Chronic back pain (Chronic) Rheumatoid arthritis (Chronic) COPD (chronic obstructive pulmonary disease) (Chronic) Manic depressive disorder (Chronic) Hypertension (Chronic) Tobacco abuse (Chronic) Noncompliance (Chronic) Bipolar disorder (Chronic) Opioid dependence (Chronic) Allergies lurasidone [From Latuda] Allergy (Verified 03/13/18 00:15) Other naproxen Allergy (Verified 03/13/18 00:15) Hives paliperidone [From Invega] Allergy (Verified 03/13/18 00:15) increased psychiatric symptoms trazodone Allergy (Verified 03/13/18 00:15) Other theophylline Adverse Reaction (Verified 03/13/18 00:15) Other SLOBID Adverse Reaction (Uncoded 03/13/18 00:15) Other Home Medications: Ambulatory Orders Medication Instructions Recorded Lisinopril [Zestril] 20 mg PO DAILY 03/24/17 Divalproex (ER) [Depakote ER] 500 mg PO BID 06/20/17 Pravastatin [Pravachol] 40 mg PO QHS 12/18/17 Buprenorphine HCl/Naloxone HCl 2 ea SL DAILY 12/24/17 Surgical History: hysterectomy, - - C-sections, hernia repair. Psychiatric History: Anxiety, Bipolar, Depression DESK SERGEANT History: No pertinent DESK SERGEANT history Smoking Status: Current every day smoker - *Family History Maternal History Items: No pertinent history Paternal History Items: No pertinent history Sibling History Items: Cancer Review of Systems Constitutional: Denies: Chills, Fever, Weight Change HEENT: Reports: Post Nasal Drip. Denies: Head Aches, Sinus Congestion, Sinus Drainage Cardiovascular: Denies: Chest Pain, Palpitations Respiratory: Denies: Cough, Shortness of breath at rest, Sputum production Gastrointestinal: Reports: Abdominal Pain, Nausea, Vomiting Genitourinary: Denies: Dysuria Musculoskeletal: Denies: Joint Pain, Joint Tenderness Skin: Denies: Rash, Wounds Neurological: Denies: Numbness, Tingling, Focal weakness Psychiatric: Denies: Anxiety, Depression, Homicidal Ideations, Suicidal Ideations Hematologic/ Lymphatic: Denies: Easy Bruising, Easy Bleeding VTE Information - Inpt Only VTE Present on Admission: No VTE Mechan Device Prophylaxis: SCD's VTE Pharm Prophylaxis ordered?: Yes Patient Problems: Active and Suspected Problems (Last Reviewed 02/04/18 @ 13:45 by Candy Davenport) Transaminitis (Acute) Cholecystitis (Acute) - Physical Exam General: Alert, Oriented x3, Cooperative HEENT: Atraumatic, PERRLA, EOMI, Normocephalic Neck: Supple, No JVD, Negative Carotid Bruits Lungs: Clear to auscultation, Normal air movement Cardiovascular: Regular rate, No murmurs Abdomen: Bowel Sounds Present, Soft, Tender Extremities: No edema, Capillary Refill Less than 3 Seconds Skin: No rashes, No breakdown Musculoskeletal: No Tenderness to Palpation of Joints or Extremities Neurological: Cranial nerves II-XII grossly intact Psych/Mental Status: Normal Affect, Appropriate Vital Signs Temp Pulse Resp BP Pulse Ox 98.1 F 75 18 213/109 H 99 03/13/18 00:13 03/13/18 00:13 03/13/18 00:13 03/13/18 00:13 03/13/18 00:13 Weight: 72.575 kg Body Mass Index (BMI) 31.2 Finger Stick Blood Glucose 161 Laboratory Tests Past 24 Hrs WBC 12.0 H RBC 4.76 Hgb 14.6 Hct 44.5 MCV 93.5 MCH 30.7 Assessment/Plan Active and Suspected Problems (Last Reviewed 02/04/18 @ 13:45 by Candy Davenport) Transaminitis (Acute) Cholecystitis (Acute) 67 year old female w/ h/o COPD, GERD, lipidemia and hepatitis admitted for transaminitis. 1) Transaminitis: Concerning for cholecystitis. Will get RUQ US. Will follow liver profile. Consulted surgery. Will also r/o other etiologies. Will get hepatitis panel, RAFAEL, and ANCA. 2) Chronic pain: Will resume home meds. Monitor. 3) COPD: No e/o acute exacerbation. Resume home meds. Monitor. 03/13/18 0401 <Electronically signed by Sadiq Pearce MD> Date Sadiq Pearce MD Cosigner Signature: Date (if applicable) CC: Esperanza Baird MD; Sadiq Pearce MD Signed EMERGENCY DEPARTMENT Observed: 03/13/2018 Status: F Source: [place] SUMMARY 2:56 AM [facility] REPOSITORY [facility] Medical Records Department [address] [place] [address] Emergency Department Summary 03/13/18 0241 MR#: [id number] Acct: [id number] Name: GIOVANA POWELL Rep #: [id number] : 1950 67 From: Torey Sanchez MD PCP: Esperanza Baird MD Status: REG ER - ER Visit Summary Date of Service: 03/13/18 Chief Complaint: Upper abdominal pain that started this morning associated with nausea and vomiting 1 History of Present Illness: The patient is a 67 F who presents with upper abdominal pain that started this morning. She reports one episode of nausea vomiting. She states she had a hamburger proximal and 1 hour prior to arrival. She did vomit. She does report intolerance to greasy/fried food. She is unable to say that the hamburger made the pain worse. She denies fever, chills night sweats. Complained of diaphoresis presently. She denies chest pain or palpitations. She denies shortness of breath, cough or dyspnea on exertion. She denies black or maroon colored stool. She denies dysuria, frequency, urgency or hematuria. She does complain of mid back pain. She has no other complaints. Review prior records reveal history of COPD, GERD, hypercholesterolemia, seizure disorder and hepatitis. She does have history of opiate dependency and bipolar affective disorder. Patient states she was diagnosed with hepatitis at the age of 10 because when she was a child doctors did not have disposable needles and syringes. Physical Examination: Blood pressure is elevated to 13/109. She appears uncomfortable and is diaphoretic. Head is atraumatic normocephalic. Pupils are equal round reactive. Extraocular muscles are intact. TMs are pearly white with landmarks noted. Nares patent with no drainage. Posterior pharynx without erythema or exudate. Uvula is midline. There is no dysphonia or dysphasia. Trachea is midline. There is no stridor with auscultation of the neck. Heart is regular without murmur, gallop or rub. S1 and S2 are normal. Lungs are clear to auscultation with good movement of air bilaterally. Abdomen is remarkable significant tenderness in the right upper quadrant equivocal Valiente sign. There is tympany to percussion. There is no guarding or rebound tenderness other than the right upper quadrant. There is no CVA tenderness noted. There is no skin lesion or rash noted. Lower extremity exam is unremarkable. Neuro exam is nonfocal. Test Results: Three-view x-ray of the abdomen was obtained his old massive gas pattern with increased fecal stasis. The chest portion reveals normal cardiac silhouette, mediastinum and no acute pulmonary findings. Muscular structures are normal. The x-ray was interpreted by me. White count is elevated 12.0 thousand with 73 segs. Electro panels normal. Hepatic is remarkable ALT and AST of 955 any 39 respectively. Alk phos is elevated to 374. Lipase is normal. Emergency Department Course and Treatment: Evaluate patient's upper abdominal pain with nausea and vomiting x-ray was obtained because she is distended tympanitic with decreased bowel sounds. Because of the right upper quadrant pain hepatic and lipase were ordered as well as CBC. BMP was ordered to evaluate kidney function. Treatment Plan: Concern patient has cholecystitis. Will contact Dr. Sanderson and informed him that an ultrasound was not obtained because she ate hamburger prior to arrival. Recommendation is admission. Case was discussed with Dr. Sanderson. He is concerned this may represent hepatitis and requested admission to the hospitalist service with consultation to him. Disposition: To be admitted to the hospital for further testing to determine cause of right upper quadrant pain elevated ALT and AST. Impression: Acute right upper quadrant abdominal pain with elevated ALT and AST with nausea and vomiting History of COPD History of GERD History of hypercholesterolemia History of hepatitis History of bipolar affective disorder This note was generated with [employer] software. It may contain incorrect words, spelling, and punctuation that were not noted in review of the chart prior to signing ED Disposition - Plan for ED Patient: Chief Complaint: Abd Pain Referrals: Esperanza Baird MD [Primary Care Provider] - What to do if you have Problems For any increased pain, shortness of breath, bleeding, nausea or vomiting, chest pain, or any unexpected problems, contact your Primary Care Provider. Call [facility] ([phone]) or report to the closest Emergency Room. Call 911 if necessary. 03/13/18 0256 <Electronically signed by Torey Sanchez MD> Date Torey Sanchez MD Cosigner Signature (If Indicated): Date CC: Esperanza Baird MD; Kaitlin Sanderson MD CBC W/DIFF, AUTOMATED Collected: 03/13/2018 Status: F Source: [place] 12:55 AM [facility] REPOSITORY TYPE CODE TESTS RESULT OUT OF RANGE REFERENCE UNITS LAB L100.1000 4.4-11.0 K/mm3 High WBC 12.0 LAB L100.1200 4.2-5.4 M/mm3 Normal RBC 4.76 LAB L100.1300 12.0-15.0 g/dl Normal HGB 14.6 LAB L100.1400 37-47 % Normal HCT 44.5 LAB L100.1500 81-99 fL Normal MCV 93.5 LAB L100.1600 27.0-32.0 pg Normal MCH 30.7 LAB L100.1700 32-36 g/gl Normal MCHC 32.8 LAB L100.1810 11.6-14.6 % Normal RDW CV 13.4 LAB L100.1820 35.1-43.9 fl High RDW SD 46.0 LAB L100.1900 150-450 K/mm3 High PLT 521 LAB L100.2000 6.2-12.0 fl Normal MPV 9.3 LAB L100.2100 47-70 % High NEUT% 72.6 LAB L100.2200 19-41 % Low LY% 17.6 LAB L100.2300 0-10 % Normal MONO% 7.6 LAB L100.2400 0-5 % Normal EO% 0.9 LAB L100.2500 0-1 % Normal BASO% 0.3 LAB L100.2550 0.0-0.9 % High IM GRAN % 1.000 Result Comment: IG% - Immature Granulocytes (promyelocytes, myelocytes and metamyelocytes) > 1% indicates that a LEFT SHIFT is Present. LAB L100.2620 2.0-7.7 X10 3/uL High Absolute Neut 8.7 LAB L100.2720 0.83-4.51 X10 3/ul Normal Absolute Lymph 2.11 Performed By: #### L100.0100 #### [facility] [address] [place], [address] BASIC METABOLIC Collected: 03/13/2018 Status: F Source: [place] PROFILE ([facility]) 12:55 AM [facility] REPOSITORY TYPE CODE TESTS RESULT OUT OF RANGE REFERENCE UNITS LAB L501.0100 74-106 mg/dL High GLU 127 Result Comment: Fasting Glucose result greater than or equal to 126 mg/dL suggests DIABETES MELLITUS per A.D.A. criteria. Please note revised GLUCOSE reference range effective 2017. LAB L501.1000 7-18 mg/dL Normal BUN 14 LAB L501.1100 0.55-1.02 mg/dL Normal CREAT,SERUM 0.74 Result Comment: The validity of the calculated GFR AND GFRAA in patients over 70 years has not been determined. Clinical correlation is essential. LAB L501.1110 >60 mL/min Normal EST GFR 83 Result Comment: Non- GFR Calc LAB L501.1115 >60 mL/min Normal EST GFR - AA 101 Result Comment: GFR Calc LAB L501.1255 ml/min Normal Estimated CRCL 54.44 LAB L501.1300 10-20 RATIO Normal BUN/CRE 18.8 LAB L501.2200 8.5-10 mg/dL Normal .1 CA 9.3 LAB L501.5300 136-14 mmol/L Normal 5 NA 138 LAB L501.5600 3.5-5. mmol/L Normal 1 K 4.3 Result Comment: Moderate Hemolysis, Result may be falsely increased. LAB L501.5900 98-107 mmol/L Normal CL 105 LAB L501.6100 21.0-32.0 mmol/L Normal CO2 27.0 LAB L501.6200 5-15 Normal 6 GAP Performed By: #### L500.2500, L500.3400, L501.2450 #### [facility] [address] [place], [address] LIVER PROFILE Collected: 03/13/2018 Status: F Source: [place] 12:55 AM [facility] REPOSITORY TYPE CODE TESTS RESULT OUT OF RANGE REFERENCE UNITS LAB L501.1500 6.4-8.2 g/dL Normal T PROT 7.8 LAB L501.1800 3.2-5.0 g/dL Normal ALB 3.5 LAB L501.1950 2.2-4.2 g/dL High GLOB 4.3 LAB L501.4100 15-37 U/L High AST 955 Result Comment: Moderate Hemolysis, Result may be falsely increased. LAB L501.4305 45-117 U/L High ALK P 374 LAB L501.4405 13-56 U/L High ALT 839 LAB L501.4600 0.20-1.00 mg/dL High T BILI 1.40 LAB L501.4700 0.00-0.30 mg/dL High D BILI 0.63 Performed By: #### L500.2500, L500.3400, L501.2450 #### [facility] [address] [place], [address] LIPASE Collected: 03/13/2018 Status: F Source: [place] 12:55 AM [facility] REPOSITORY TYPE CODE TESTS RESULT OUT OF RANGE REFERENCE UNITS LAB L501.2450 73-393 U/L Normal LIPASE 123 Performed By: #### L500.2500, L500.3400, L501.2450 #### [facility] [address] [place], [address] ACUTE ABDOMEN INC Observed: 03/13/2018 Status: F Source: [place] CHEST 12:35 AM [facility] REPOSITORY [facility] Imaging Services [address] [place] [address] Acute Abdomen Inc Chest MR#: [id number] Acct: [id number] Name: GIOVANA POWELL Rep #: [id number] : 1950 F 67 From: Lilian Sandoval MD PCP: Esperanza Baird MD Status: REG ER Study: Acute Abdomen Inc Chest Date of Exam: 03/13/18 Exam# [id number] Ordering Dr: Torey Sanchez MD STUDY: X-RAY - ACUTE ABDOMINAL SERIES REASON FOR EXAM: Female, 67 years old. upper abdominal pain, nausea, vomiting TECHNIQUE: Single view of the chest. Supine, erect, and decubitus view(s) of the abdomen were obtained. COMPARISON: None. FINDINGS: The lungs are clear and expanded. Normal size heart. Normal mediastinum and jairo. Normal visualized pulmonary arteries. Normal visualized aortic arch and descending thoracic aorta. There is a non-specific bowel gas pattern. The soft tissue structures of the abdomen and pelvis are unremarkable. There are diffuse degenerative changes of the visualized lumbar spine. RAD/Acute Abdomen Inc Chest IMPRESSION: Normal x-ray examination of the chest, abdomen, and pelvis. Electronically Signed: Lilian Sandoval MD at 2:16 EDT Tel , Service support , CC: Esperanza Baird MD; Torey Sanchez MD Stallion Manager: Signed PROGRESS Observed: 03/09/2018 Status: COMPLETED Source: [place] 11:14 AM [facility] REPOSITORY [facility] ID: [id number] Author: Isaura Andrse Service: (none) Author Type: Milieu Coordinator Type: Progress Notes Filed: 04/02/2018 10:39 AM Note Text: [facility] CARE GAP REGISTRY DOCUMENTATION Provider Action/FYI: patient needs appointment PSR Action/FYI: Please schedule appointment for ov Patient identified by name and date of . Last BP/Labs: Blood Pressure: Last 3 Encounter BP Readings: Date: BP: 02/19/2017 154/88 02/10/2017 143/90 01/20/2017 145/81 Lipids: Cholesterol, Total (mg/dL) Date Value 01/20/2013 229 HDL Cholesterol (mg/dL) Date Value 01/20/2013 34 LDL Cholesterol (mg/dL) Date Value 01/20/2013 142 LDL Chol, Caldwell (mg/dL) Date Value 06/20/2011 148 Triglyceride (mg/dL) Date Value 01/20/2013 264 HGB A1C: No results found for: HBA1C TSH: TSH (uU/mL) Date Value 06/11/2016 0.535 01/20/2013 1.530 ) ? Patient has the following care gap registry disease diagnosis:HTN ? Patient has the following open care gaps:HTN - Last BP NOT under 140/90 ? Last office visit: 12/30/2016 Future office visit:Nurse BP Isaura Andres MA CNPTOUTREACH Observed: 03/09/2018 Status: COMPLETED Source: [place] 12:00 AM [facility] REPOSITORY Patient Outreach (FAMPWS) JACKLYN POWELL ([id number]) 1950 F Date Time Provider Department 03/09/18 ISAURA ANDRES) FAMPWS During your visit today, we recorded the following information about you: Isaura Andres MA 04/02/2018 10:39 AM Signed [facility] CARE GAP REGISTRY DOCUMENTATION Provider Action/FYI: patient needs appointment PSR Action/FYI: Please schedule appointment for ov Patient identified by name and date of . Last BP/Labs: Blood Pressure: Last 3 Encounter BP Readings: Date: BP: 02/19/2017 154/88 02/10/2017 143/90 01/20/2017 145/81 Lipids: Cholesterol, Total (mg/dL) Date Value 01/20/2013 229 HDL Cholesterol (mg/dL) Date Value 01/20/2013 34 LDL Cholesterol (mg/dL) Date Value 01/20/2013 142 LDL Chol, Roselyn (mg/dL) Date Value 06/20/2011 148 Triglyceride (mg/dL) Date Value 01/20/2013 264 HGB A1C: No results found for: HBA1C TSH: TSH (uU/mL) Date Value 06/11/2016 0.535 01/20/2013 1.530 ) ? Patient has the following care gap registry disease diagnosis:HTN ? Patient has the following open care gaps:HTN - Last BP NOT under 140/90 ? Last office visit: 12/30/2016 Future office visit:Nurse BP VINOD Laughlin MA 04/02/2018 10:39 AM Signed The phone number. isn't in service. Tried the mobile phone number the lady sounded confused but she said she was not Jacklyn. Isaura Andres MA Allergies As of Date: 03/09/2018 Noted Allergy Reaction EOVIST (GADOXETATE) 02/19/2017 12 - Shortness of Breath Comments: MRI contrast NAPROSYN (NAPROXEN) 06/04/2011 4 - Hives Slow-bid [Other] 12/29/2011 1 - Mental Status Change Comments: lethargic with slurred speech Date Reviewed: 02/19/2017 Reviewed by: Natalee Velez, RN, RN - Fully Assessed Reason for Visit: PHMA/Care Gap Outreach [[id number]] Prescriptions as of 03/09/2018 Sig: LISINOPRIL 20 MG TABLET TAKE 1 TABLET DAILY SUCRALFATE 1 GRAM TABLET TAKE 1 TABLET BY MOUTH FOUR T* FOOD SUPPLEMENT, LACTOSE-REDU* Drink a 8 oz bottle, up to si* CLONIDINE HCL 0.1 MG TABLET TAKE 1 TABLET THREE TIMES A D* SUCRALFATE 100 MG/ML ORAL NILSA* Take 10 mL by mouth before me* CAMPHOR-MENTHOL 0.5 %-0.5 % L* Apply 1 application to affect* OXYBUTYNIN CHLORIDE ER 15 MG * TAKE 1 TABLET BY MOUTH ONCE D* PRAMIPEXOLE 1 MG TABLET Take 1 tablet by mouth three * ASPIRIN 81 MG TABLET,DELAYED * Take 1 tablet by mouth once d* IBUPROFEN 800 MG TABLET Take 1 tablet by mouth every * SIMVASTATIN 40 MG TABLET Take 1 tablet by mouth daily * PANTOPRAZOLE 20 MG TABLET,DEL* Take 1 tablet by mouth daily * HYDRALAZINE 50 MG TABLET Take 1 tablet by mouth three * CYANOCOBALAMIN (VIT B-12) 500* Take 2 tablets by mouth once * AMLODIPINE 10 MG TABLET Take 1 tablet by mouth once d* BENZONATATE 100 MG CAPSULE Take 1 capsule by mouth three* BUPRENORPHINE 8 MG-NALOXONE 2* Dissolve 2 Film under the ton* CHOLECALCIFEROL (VITAMIN D3) * Take 1 capsule by mouth once * METOPROLOL TARTRATE 25 MG TAB* Take 1 tablet by mouth once d* IBUPROFEN 200 MG TABLET Take 1 tablet by mouth every * BUDESONIDE-FORMOTEROL HFA 160* Inhale 2 Puffs as instructed * ALBUTEROL SULFATE HFA 90 MCG/* Inhale 2 Puffs as instructed * IPRATROPIUM-ALBUTEROL 0.5 MG-* Inhale 3 mL as instructed catherine* DIVALPROEX 500 MG TABLET,CATINA* Take 2 tablets by mouth twice* COMPOUNDED PRESCRIPTION BLOOD PRESSURE CUFF FOR HOME * LURASIDONE 80 MG TABLET Take 1 tablet by mouth once d* Problem List As Of Date 03/09/2018 Noted Resolved Essential hypertension, benign [I10] INVALID FOR* Epilepsy [G40.909] INVALID FOR* Bipolar affective [F31.9] INVALID FOR* Anemia [D64.9] INVALID FOR* Back pain [M54.9] INVALID FOR* Special screening for malignant neoplasms, colo*INVALID FOR*02/04/2012 Unspecified constipation [K59.00] INVALID FOR* Benign neoplasm of colon [D12.6] INVALID FOR* Patellar tendonitis [M76.50] INVALID FOR*02/04/2012 Arthritis of knee, 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] INVALID FOR* History of drug abuse [Z87.898] INVALID FOR* Neoplasm of uncertain behavior of skin: R/O BCC*INVALID FOR*12/30/2016 BCC (basal cell carcinoma), face [C44.310] INVALID FOR*12/30/2016 BCC (basal cell carcinoma), eyelid [C44.111] INVALID FOR*12/30/2016 Skin cancer of face [C44.300] INVALID FOR*12/30/2016 Actinic skin damage [L57.8] INVALID FOR*12/30/2016 Melanocytic nevi of face [D22.30] INVALID FOR*12/30/2016 Solar lentigo [L81.4] INVALID FOR*12/30/2016 Open wound(s) (multiple) of unspecified site(s)*INVALID FOR*12/30/2016 Basal cell carcinoma, eyelid [C44.111] INVALID FOR*12/30/2016 Sleep apnea [G47.30] INVALID FOR* Personal history of colonic polyps [Z86.010] INVALID FOR* Encounter Status:Closed by ISAURA ANDRES on 04/02/18 SCREENING MAMM (CAD), Observed: 03/05/2018 Status: F Source: [place] 4:01 PM [facility] REPOSITORY [facility] Imaging Services [address] [place] [address] SCREENING MAMM (CAD), BILAT MR#: [id number] Acct: [id number] Name: GIOVANA POWELL Rep #: [id number] : 1950 F 67 From: Wil Ortega MD PCP: Esperanza Baird MD Status: REG CLI Study: SCREENING MAMM (CAD), BILAT Date of Exam: 03/05/18 Exam# [id number] Ordering Dr: Esperanza Baird MD MAMMOGRAPHY - BILATERAL SCREENING REASON FOR EXAM: Female, 67 years old. Routine annual screening examination. PERTINENT HISTORY: Sister with breast cancer. TECHNIQUE: Digital bilateral breast shimon (3D mammographic acquisition) in the CC and MLO projections. 2-D mediolateral oblique (MLO) and craniocaudad (CC) views of both breasts were obtained. CAD: Full Field Digital Mammography with Computer Added Detection was performed. COMPARISON: Comparison is made with prior outside examination dated December 12, 2016 and December 20, 2013. FINDINGS: Breast Composition: There are scattered areas of fibroglandular density. There are no dominant masses or suspicious calcifications. No other significant abnormalities are identified. There has been no significant change since the prior study. BI/SCREENING MAMM (CAD), BILAT IMPRESSION: Stable bilateral screening mammogram. Yearly follow-up mammogram recommended. (A) ASSESSMENT CATEGORY: BIRADS Category 1: Negative. A letter regarding these results will be sent to the patient by the facility within 30 days. Approximately 10% of breast cancers are not detected by mammography. A normal mammogram should not delay biopsy of a clinically suspicious abnormality. [id number] Electronically Signed: Wil Ortega MD at 8:06 EDT Tel [phone], Service support , CC: Esperanza Baird MD Stallion Manager: Signed LOWER EXT JOINT ONLY Observed: 02/19/2018 Status: F Source: [place] (ROUTINE) 7:03 AM [facility] REPOSITORY [facility] Imaging Services [address] [place] [address] Lower Ext Joint Only (Routine) MR#: [id number] Acct: [id number] Name: GIOVANA POWELL Rep #: [id number] : 1950 F 67 From: Ja Austin MD PCP: Esperanza Baird MD Status: REG CLI Study: Lower Ext Joint Only (Routine) Date of Exam: 02/19/18 Exam# [id number] Ordering Dr: Shavonne Dykes DO STUDY: MRI RIGHT KNEE REASON FOR EXAM: Anterior knee pain for 8 years, lump at the lateral aspect of the knee after knee injection, the lump has since resolved. TECHNIQUE: Standardized fat and water weighted pulse sequences were obtained in all 3 orthogonal planes. COMPARISON: Radiographs 02/02/2018. FINDINGS: There is tear/degeneration of the posterior horn (proton-density sagittal images 25-33) and body (proton-density coronal images 18-20) of the medial meniscus. There is peripheral subluxation of the medial meniscus. There is arthrosis of the medial femorotibial compartment with marginal osteophytes and chondral loss (T2 sagittal image 19). Normal medial femoral condyle and tibial plateau. Normal medial collateral ligamentous complex (MCL). Normal distal semimembranosus, gracilis and semitendinosus tendons. Normal lateral meniscus. Normal hyaline cartilage of the lateral femorotibial compartment. There are marginal osteophytes of the lateral femorotibial compartment. Normal lateral femoral condyle and tibial plateau. Normal proximal tibiofibular articulation. Normal lateral collateral (fibular) ligament. Normal popliteus tendon. Normal biceps femoris tendon. There is a mesial osteophyte of the lateral femoral condyle abutting the anterior cruciate ligament with attenuation of the ligament (T2 coronal image 14) suggestive of anterior cruciate ligament impingement. Normal posterior cruciate ligament (PCL). Normal congruent patellofemoral articulation. There is arthrosis of the patellofemoral compartment with marginal osteophytes and chondral loss of the patella (T2 sagittal image 17). Normal medial and lateral patellar retinaculum. Normal visualized quadriceps tendon. Normal patellar tendon. Normal Hoffa's fat pad. There is a small joint effusion. There is a thin medial patellar plica. There is an intra-articular body posterior to the posterior cruciate ligament and root of the posterior horn of the medial meniscus (T2 coronal image 9) measuring 1.6 cm in transverse dimension. There is a small cyst superficial to the distal iliotibial band (T2 coronal image 18) measuring 0.7 cm in length. There is edema in the lateral and anterior subcutis adipose space. There is a small ganglion cyst at the anterior medial aspect of the tibial plateau (T2 axial image 19) measuring 1.6 cm in greatest dimension. The otherwise visualized osseous structures are unremarkable. MRI/Lower Ext Joint Only (Routine) IMPRESSION: Small cyst superficial to the distal iliotibial band. Tear/degeneration of the medial meniscus. Arthrosis of the medial femorotibial and patellofemoral compartments, and marginal osteophytes of the lateral femorotibial compartment. Anterior cruciate ligament impingement with attenuation of the ligament. Posterior intra-articular body. Small joint effusion. Small ganglion cyst at the anterior medial aspect of the tibial plateau Electronically Signed: Ja Austin MD at 9:17 EDT Tel , Service support , CC: Shavonne Dykes DO; Esperanza Baird MD Stallion Manager: Signed SERUM CREATININE AND Collected: 02/19/2018 Status: F Source: [place] GFR 6:58 AM [facility] REPOSITORY TYPE CODE TESTS RESULT OUT OF RANGE REFERENCE UNITS LAB L501.1100 0.55-1.02 mg/dL Normal 0.80 CREAT,SERUM Result Comment: The validity of the calculated GFR AND GFRAA in patients over 70 years has not been determined. Clinical correlation is essential. LAB L501.1110 >60 mL/min Normal EST GFR 76 Result Comment: Non- GFR Calc LAB L501.1115 >60 mL/min Normal EST GFR - AA 92 Result Comment: GFR Calc Performed By: #### L501.1105 #### [facility] [address], [address] LIPID PROFILE Collected: 02/19/2018 Status: F Source: [place] 6:58 AM [facility] REPOSITORY TYPE CODE TESTS RESULT OUT OF RANGE REFERENCE UNITS LAB L501.4900 200 mg/dL Normal CHOL 150 Result Comment: <200 mg/dL Desirable 200-240 mg/dL Borderline >240 mg/dL High Risk LAB L501.5000 mg/dL Normal TRIG 74 Result Comment: The drugs N-Acetylcysteine and Metamizole may falsely depress this assay. Serum Triglycerides Reference Interval Normal <150 mg/dL Borderline high 150 - 199 mg/dL High 200 - 499 mg/dL Very High > or = 500 mg/dL LAB L501.6400 mg/dL Normal HDL 47 Result Comment: The drugs N-Acetylcysteine and Metamizole may falsely depress this assay. Reference Range HDL <40 mg/dL Low HDL Cholesterol HDL >or= 60 mg/dL High HDL Cholesterol LAB L501.6500 0-130 mg/dL Normal LDL 88 LAB L501.6600 5-40 mg/dL Normal VLDL 15 Performed By: #### L500.4100 #### [facility] [address] [place], [address] PROGRESS Observed: 02/09/2018 Status: COMPLETED Source: [place] 12:20 PM [facility] REPOSITORY HNO ID: [id number] Author: Isaura Andres Service: (none) Author Type: Milieu Coordinator Type: Progress Notes Filed: 02/09/2018 12:20 PM Note Text: Received receipt from letter. Isaura Andres MA INTERNAL MEDICINE Observed: 02/05/2018 Status: F Source: [place] OFFICE VISIT 1:05 PM [facility] REPOSITORY [facility] [address] [place] [address] [address] [place], [place] [address] OFFICE VISIT Date of Service: 02/04/18 MR#: [id number] Acct: [id number] Name: GIOVANA POWELL Rep #: [id number] : 1950 Provider: Esperanza Baird MD Age/Sex: 67/F Location: [facility] Status: Signed Intake Vital Signs02/04/18 Height 5 ft 2 in Intake Visit Reasons: Preventative f/u Chief Complaint: follow-up Is patient in pain?: No Allergies lurasidone [From Latuda] Allergy (Verified 02/02/18 14:11) Other naproxen Allergy (Verified 02/02/18 14:11) Hives paliperidone [From Invega] Allergy (Verified 02/02/18 14:11) increased psychiatric symptoms trazodone Allergy (Verified 02/02/18 14:11) Other theophylline Adverse Reaction (Verified 02/02/18 14:11) Other SLOBID Adverse Reaction (Uncoded 01/08/18 00:06) Other Medications Clonidine HCl 0.1 mg PO TID 03/24/17 [History Confirmed 01/14/18] Lisinopril [Zestril] 20 mg PO DAILY 03/24/17 [History Confirmed 01/14/18] Metoprolol Tartrate [Lopressor (beta angelita)] 25 mg PO DAILY 03/24/17 [History Confirmed 01/14/18] hydrALAZINE [Apresoline] 50 mg PO TID 04/08/17 [History Confirmed 01/14/18] Divalproex (ER) [Depakote ER] 500 mg PO BID 06/20/17 [History Confirmed 01/14/18] Pravastatin [Pravachol] 40 mg PO QHS 12/18/17 [History Confirmed 01/14/18] Buprenorphine HCl/Naloxone HCl [Suboxone 8 mg-2 mg Sl Film] 2 ea SL DAILY 12/24/17 [History Confirmed 01/14/18] benztropine 0.5 mg tablet 0.5 mg PO BID 01/06/18 [History Confirmed 01/14/18] calcium carbonate 600 mg calcium (1,500 mg) tablet 600 mg PO BID #60 tab 01/06/18 [Rx Confirmed 01/14/18] cholecalciferol (vitamin D3) 50,000 unit capsule 50,000 unit PO QWEEK #8 cap 01/06/18 [Rx Confirmed 01/14/18] heating pads See Dose Instructions .ROUTE .MEDSUPPLY #1 ea 01/06/18 [Rx Confirmed 01/06/18] olanzapine 10 mg tablet 10 mg PO QHS tab 01/06/18 [History Confirmed 01/14/18] pantoprazole 20 mg tablet,delayed release 20 mg PO QDAY 01/06/18 [History Confirmed 01/14/18] dextromethorphan-guaifenesin ER 60 mg-1,200 mg tab,extend release,12hr 1 tab PO Q12H #20 tab 01/13/18 [Rx Confirmed 01/14/18] lidocaine 5 % topical patch 1 patch TOPICAL Q24H PRN #30 ea 01/14/18 [Rx] PFSH Medical History History of skin cancer (Acute) Dissociative identity disorder (Chronic) Surgical History History of 3 sections (Acute) History of hernia repair (Acute) H/O hernia repair (Inactive) H/O: hysterectomy (Inactive) History of (Inactive) Family History Brother Colon cancer Social History Smoking Status: Current every day smoker alcohol intake: never substance use type: does not use HPI HPI Chief Complaint: follow-up Details: GIOVANA POWELL, is a 67yo F who presents to the office today for follow / an establish care visit. She has no acute complaints at this time. Blood pressure is mildly elevated however, patient states she did not take her medications today. She reports compliance otherwise. She follows up routinely with her psychiatrist. Last visit was 3 weeks ago. She is currently on olanzapine and Depakote however patient states that she only takes Depakote. ROS Const Constitutional: No weight change, body ache, chills, fatigue, sleep problems, fever(s), change in appetite, snoring, weakness, frequent falls, headache(s) or excessive sweating Eyes Eyes: No change in vision, eye pain, light sensitivity or blurry vision ENT ENT: No headache(s), abnormal hearing, ear pain, tinnitus, nasal congestion, sore throat or neck pain Resp Respiratory: No snoring, cough, shortness of breath or wheezing Cardio Cardiology: No excessive sweating, chest pain at rest, chest pain with exertion, shortness of breath, dyspnea on exertion, palpitations, orthopnea or lightheadedness Gastro GI: No abdominal pain, change in bowel habits, constipation, diarrhea, vomiting, nausea/dyspepsia or cramping Genitourinary-Female: No burning urination, painful urination, urinary incontinence, urinary frequency, abnormal vaginal bleeding, pelvic pain or other Musc Musculoskeletal: No neck pain, abnormal walking, joint pain, back pain, limited range of motion, numbness or tingling Skin Skin: No redness, dry skin, itching, lesions, wounds or rash Neuro Neurology: No weakness, frequent falls, headache(s), abnormal hearing, abnormal walking, numbness, tingling, abnormal speech, dizziness or memory loss Psych Psychiatric: No change in appetite, No memory loss, No anxiety, No depression, No Thoughts of harming yourself/Others Endo Endocrine: No fatigue, excessive sweating, cold intolerance, increased thirst/drinking, heat intolerance, flushing or increased hunger Aller/Imm Allergy/Immunologic: No wheezing, itchy eyes, hives or seasonal allergy symptoms Rigoberto/Lymp Hematologic/Lymphatic: No easy bleeding, easy bruising or enlarged lymph nodes Exam Const General: cooperative, no acute distress, well developed Orientation: alert, awake, oriented x3 [facility] Head: atraumatic, normocephalic Ears: hearing grossly normal bilaterally Resp Effort AND Inspection: normal respiratory effort, able to speak in complete sentences Auscultation: Bilateral: Clear to Auscultation Cardio Rate: regular rate Rhythm: regular rhythm Heart Sounds: S1 normal, S2 normal GI Inspection: obesity Palpation: soft, no hepatosplenomegaly Neuro General: alert, awake, oriented x3, moves all extremities, CN's II-XI intact bilaterally Extrem General: no pedal edema Psych Appearance: grossly normal Mental Status: mental status grossly normal Affect: normal affect Assessment AND Plan 1. Essential hypertension I10 Plan Mildly elevated in office. Patient states she not to take her medication today. Continue current medication. Continue lifestyle modifications. Follow-up at next visit. 2. Hyperlipidemia E78.5 Plan No recent lipid profile checked. Lipid profile ordered. Continue current medication and lifestyle modifications. Orders Orders: 3. Osteopenia M85.80 Plan Bone density scan done on 22 January suggestive of osteopenia. Frax score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 productive cough of green-yellow sputum 2 days. She states that she has a history of poorly controlled COPD and that often if her cough is not due to treated early on, this will put her into his COPD exacerbation. She denies any shortness of breath at this time. She does state that she is unable to tolerate prednisone due to putting her in a manic state. She has not tried any uxxx-lkr-asrtxjf treatment medications for this cough as she cannot afford them. She also notes that she has a follow-up appointment scheduled with her pain management doctor Dr. Hylton to discuss her pain management medications. She states in the meantime, she is requesting a prescription for lidocaine patch. She denies any other acute complaints this time. She otherwise denies any fever, chills, nausea, vomiting, shortness of breath, chest pain or pressure, syncope or presyncopal episodes ROS Const Constitutional: Positive for fatigue and weakness; no weight change, body ache, chills, sleep problems, fever(s), change in appetite, snoring, frequent falls, headache(s) or excessive sweating Eyes Eyes: No change in vision, eye pain, light sensitivity or blurry vision ENT ENT: Positive for nasal congestion; no headache(s), abnormal hearing, ear pain, tinnitus, sore throat or neck pain Resp Respiratory: Positive for cough Cough: Yes productive; no snoring, shortness of breath or wheezing Cardio Cardiology: No excessive sweating, chest pain with exertion, shortness of breath, dyspnea on exertion, palpitations, orthopnea, lightheadedness or chest pain at rest Gastro GI: Positive for nausea/dyspepsia; no abdominal pain, change in bowel habits, constipation, diarrhea, vomiting or cramping Musc Musculoskeletal: Positive for other (pain all over due to arthritis); no neck pain, abnormal walking, joint pain, back pain, limited range of motion, numbness or tingling Skin Skin: No redness, dry skin, itching, lesions, wounds or rash Neuro Neurology: Positive for weakness; no frequent falls, headache(s), abnormal hearing, abnormal walking, numbness, tingling, abnormal speech, dizziness or memory loss Psych Psychiatric: No change in appetite, No memory loss, No anxiety, No depression, No Thoughts of harming yourself/Others Endo Endocrine: Positive for fatigue; no excessive sweating, cold intolerance, increased thirst/drinking, heat intolerance, flushing or increased hunger Aller/Imm Allergy/Immunologic: No wheezing, itchy eyes, hives or seasonal allergy symptoms Rigoberto/Lymp Hematologic/Lymphatic: No easy bleeding, easy bruising or enlarged lymph nodes Exam Const General: cooperative, well developed Nutritional Appearance: overweight, well nourished Orientation: oriented x3, awake, alert [facility] Head: normal to inspection Ears: hearing grossly normal bilaterally Nose: external nose normal Face and sinus: normal facial exam Mouth: oral mucosae normal Throat: posterior oropharynx normal Resp Effort AND Inspection: normal respiratory effort, able to speak in complete sentences, normal respiratory pattern, symmetric chest movement, no audible wheezes, cough Quality of cough: dry Auscultation: Bilateral: Diminished Lung Sounds Cardio Palpation: normal PMI Rate: regular rate Heart Sounds: S1 normal, S2 normal, normal S1 and S2, no click, no gallops, no murmurs, no rubs Musc Cervical Spine: cervical spinal tenderness Thoracic/Lumbar Spine: kyphosis, pain with thoraco-lumbar ROM, paraspinal tenderness, thoracic spinal tenderness, lumbar spinal tenderness, thoraco-lumbar ROM limited Neuro General: alert, awake, oriented x3, CN's II-XI intact bilaterally Speech: speech normal Gait: normal gait Motor: muscle tone normal throughout Psych Appearance: grossly normal Mood: anxious mood Affect: animated Speech and Movement: speech clear Attitude: cooperative Thought Process: flight of ideas Thought Content: suicidality Assessment AND Plan 1. URI (upper respiratory infection) J06.9 Plan Patient does have symptoms consistent with an upper respiratory infection. Though mostly viral given her COPD status, will cover her with an antibiotic as well. We will also call in some vndp-xgu-vmcxelj medications for her to take also and instructed on conservative measures to take as well such as increasing fluid intake. Patient verbalized understanding. Patient instructed of right leg symptoms that require urgent medical attention. 2. Chronic back pain M54.9; G89.29 Plan Patient does have chronic back pain which she is going to establish with pain management or, lidocaine patches called into her pharmacy per her request. Patient to follow-up as previously scheduled. Dragon disclaimer Plan Detail Other Medications New: Follow Up As previously scheduled or sooner Coding Level of Care Code Off vis,est,level 3 Diagnoses URI (upper respiratory infection) J06.9 Chronic back pain M54.9; G89.29 01/14/18 0938 <Electronically signed by Tarun DAVIDSON> Date Tarun DAVIDSON Cosigner Signature: Date (if applicable) CC: EMERGENCY DEPARTMENT Observed: 01/13/2018 Status: F Source: [place] SUMMARY 11:57 PM [facility] REPOSITORY [facility] Medical Records Department [address] [place] [address] Emergency Department Summary 01/13/18 2355 MR#: [id number] Acct: [id number] Name: GIOVANA POWELL Rep #: [id number] : 1950 67 From: Rigo Fowler MD PCP: Esperanza Baird MD Status: PRE ER - ER Visit Summary Date of Service: 01/13/18 Chief Complaint: Cough History of Present Illness: The patient is a 67 F who has had a cough for 2 days. She saw her PCP today who gave her a Z-Gordon and Mucinex. She states is not helping her cough. Her cough is nonproductive. No fevers. She does continue to smoke. Patient has been seen here many times for many issues Physical Examination: Vital signs reviewed. HEENT exam unremarkable. Heart is regular rate and rhythm without murmurs. Lungs very slight expiratory wheeze. Abdomen is soft and nontender. Extremities reveal no edema. Skin exam normal. Neurologic exam normal. Test Results: None indicated Emergency Department Course and Treatment: She is already on antibiotics. She also has an albuterol inhaler in her purse. She was encouraged to use this along with her antibiotics and Mucinex. She will given a Tessalon Perle here. She will follow-up with her PCP Treatment Plan: [] Disposition: Discharge Impression: URI with cough This note was generated with [employer] dictation software. It may contain incorrect words, spelling, and punctuation that were not noted in review of the chart prior to signing ED Disposition - Plan for ED Patient: Chief Complaint: General Illness Referrals: Esperanza Barid MD [Primary Care Provider] - What to do if you have Problems For any increased pain, shortness of breath, bleeding, nausea or vomiting, chest pain, or any unexpected problems, contact your Primary Care Provider. Call [facility] ([phone]) or report to the closest Emergency Room. Call 911 if necessary. 01/13/18 8167 <Electronically signed by Rigo Fowler MD> Date Rigo Fowler MD Cosigner Signature (If Indicated): Date CC: Esperanza Baird MD DISCHARGE INSTRUCTION Observed: 01/13/2018 Status: F Source: [place] 11:57 PM [facility] REPOSITORY [facility] Medical Records Department [address] [place] [address] Discharge Instruction 01/13/186 MR#: [id number] Acct: [id number] Name: GIOVANA POWELL Rep #: [id number] : 1950 67 From: Rigo Fowler MD PCP: Esperanza Baird MD Status: PRE ER ED Disposition - Plan for ED Patient: Disposition: Home or Assisted Living Chief Complaint: General Illness Instructions: ED Upper Resp Infec Abx Tx Referrals: Esperanza Baird MD [Primary Care Provider] - What to do if you have Problems For any increased pain, shortness of breath, bleeding, nausea or vomiting, chest pain, or any unexpected problems, contact your Primary Care Provider. Call [facility] ([phone]) or report to the closest Emergency Room. Call 911 if necessary. 01/13/18 8281 <Electronically signed by Rigo Fowler MD> Date Rigo Fowler MD Cosigner Signature (If Indicated): Date CC: Esperanza Baird MD PROGRESS Observed: 01/13/2018 Status: COMPLETED Source: [place] 5:26 PM [facility] [place] REPOSITORY O ID: [id number] Author: Tarun Ayers Service: (none) Author Type: Physician Type: Progress Notes Filed: 01/26/2018 12:47 PM Note Text: Orders filed Tarun Ayers MD PROGRESS Observed: 01/13/2018 Status: COMPLETED Source: [place] 2:54 PM [facility] REPOSITORY HNO ID: [id number] Author: Isaura Andres Service: (none) Author Type: Milieu Coordinator Type: Progress Notes Filed: 01/26/2018 12:47 PM Note Text: PHMA TEAMLET DOCUMENTATION Provider Action/FYI: Patient needs appointment, needs labs ordered,CMP, lipids and Mammogram Pneumovax And adult Prevnar 13 PSR Action/FYI: please schedule appointment for mammograms and OV Thanks Teamlet has identified patient by name and date of . Team: Corinne Burk MA, Mana Sandoval MA, Isaura Andres MA, SOPHIE Schwab, Dr. Taurn Ayers, Lilly Daniel PSR, Lilly Guo RN, BSN,CPNQ,CCM ? Last Office Visit:Visit date not found ? Next Office Visit: Visit date not found ? Last BP/Labs: Blood Pressure: Last 3 Encounter BP Readings: Date: BP: 02/19/2017 154/88 02/10/2017 143/90 01/20/2017 145/81 Lipids: Cholesterol, Total (mg/dL) Date Value 01/20/2013 229 HDL Cholesterol (mg/dL) Date Value 01/20/2013 34 LDL Cholesterol (mg/dL) Date Value 01/20/2013 142 LDL Chol, Caldwell (mg/dL) Date Value 06/20/2011 148 Triglyceride (mg/dL) Date Value 01/20/2013 264 HGB A1C: No results found for: HBA1C TSH: TSH (uU/mL) Date Value 06/11/2016 0.535 01/20/2013 1.530 ) Care Gap: HTN - Last BP NOT under 140/90 Plan: ? Confirm PCP / Status ? Type of appointment needed: Follow-up ? Consultation Appointments: CMP Lipids Mammograms Isaura Andres MA CNPTOUTREACH Observed: 01/13/2018 Status: COMPLETED Source: [place] 12:00 AM [facility] REPOSITORY Patient Outreach (FAMPWS) JACKLYN POWELL ([id number]) 1950 F Date Time Provider Department 01/13/18 ISAURA ANDRES (VINOD) SUSIEWS During your visit today, we recorded the following information about you: Isaura Andres MA 01/26/2018 12:47 PM Signed PHMA TEAMLET DOCUMENTATION Provider Action/FYI: Patient needs appointment, needs labs ordered,CMP, lipids and Mammogram Pneumovax And adult Prevnar 13 PSR Action/FYI: please schedule appointment for mammograms and OV Thanks Teamlet has identified patient by name and date of . Team: Corinne Burk MA, Mana Sandoval MA, Isaura Andres MA, SOPHIE Schwab, Dr. Tarun Ayers, Lilly Daniel PSR, Lilly Guo, RN, BSN,CPNQ,CCM ? Last Office Visit:Visit date not found ? Next Office Visit: Visit date not found ? Last BP/Labs: Blood Pressure: Last 3 Encounter BP Readings: Date: BP: 02/19/2017 154/88 02/10/2017 143/90 01/20/2017 145/81 Lipids: Cholesterol, Total (mg/dL) Date Value 01/20/2013 229 HDL Cholesterol (mg/dL) Date Value 01/20/2013 34 LDL Cholesterol (mg/dL) Date Value 01/20/2013 142 LDL Chol, Caldwell (mg/dL) Date Value 06/20/2011 148 Triglyceride (mg/dL) Date Value 01/20/2013 264 HGB A1C: No results found for: HBA1C TSH: TSH (uU/mL) Date Value 06/11/2016 0.535 01/20/2013 1.530 ) Care Gap: HTN - Last BP NOT under 140/90 Plan: ? Confirm PCP / Status ? Type of appointment needed: Follow-up ? Consultation Appointments: CMP Lipids Mammograms VINOD Laughlin MD 01/26/2018 12:47 PM Signed Orders filed MD Isaura Singer MA 01/26/2018 12:47 PM Signed Busy Isaura Andres MA 01/26/2018 12:47 PM Signed Unable to leave message. Voice mail not setup. VINOD Laughlin MA 01/26/2018 12:47 PM Signed Unable to leave message. Voice mail not setup. VINOD Laughlin MA 01/26/2018 12:47 PM Signed Mailed certified letter to patient. Isaura Andres MA 02/09/2018 12:20 PM Signed Received receipt from letter. Isaura Andres MA Allergies As of Date: 01/13/2018 Noted Allergy Reaction EOVIST (GADOXETATE) 02/19/2017 12 - Shortness of Breath Comments: MRI contrast NAPROSYN (NAPROXEN) 06/04/2011 4 - Hives Slow-bid [Other] 12/29/2011 1 - Mental Status Change Comments: lethargic with slurred speech Date Reviewed: 02/19/2017 Reviewed by: Natalee Velez, RN, RN - Fully Assessed Reason for Visit: PHMA/Care Gap Outreach [3605] Primary Visit Diagnosis:Essential hypertension, benign [I10] Other Visit Diagnoses:Screening for hyperlipidemia [Z13.220] Screening mammogram, encounter for [Z12.31] Order(s):COMP METABOLIC PANEL [SQCMP] Order #: [id number] FUTURE LIPID PANEL BASIC [SQLIPB] Order #: [id number] FUTURE NENA SCREENING [[id number]] Order #: [id number] FUTURE Prescriptions as of 01/13/2018 Sig: SUCRALFATE 1 GRAM TABLET TAKE 1 TABLET BY MOUTH FOUR T* FOOD SUPPLEMENT, LACTOSE-REDU* Drink a 8 oz bottle, up to si* CLONIDINE HCL 0.1 MG TABLET TAKE 1 TABLET THREE TIMES A D* SUCRALFATE 100 MG/ML ORAL NILSA* Take 10 mL by mouth before me* CAMPHOR-MENTHOL 0.5 %-0.5 % L* Apply 1 application to affect* OXYBUTYNIN CHLORIDE ER 15 MG * TAKE 1 TABLET BY MOUTH ONCE D* PRAMIPEXOLE 1 MG TABLET Take 1 tablet by mouth three * ASPIRIN 81 MG TABLET,DELAYED * Take 1 tablet by mouth once d* IBUPROFEN 800 MG TABLET Take 1 tablet by mouth every * SIMVASTATIN 40 MG TABLET Take 1 tablet by mouth daily * PANTOPRAZOLE 20 MG TABLET,DEL* Take 1 tablet by mouth daily * HYDRALAZINE 50 MG TABLET Take 1 tablet by mouth three * CYANOCOBALAMIN (VIT B-12) 500* Take 2 tablets by mouth once * AMLODIPINE 10 MG TABLET Take 1 tablet by mouth once d* BENZONATATE 100 MG CAPSULE Take 1 capsule by mouth three* BUPRENORPHINE 8 MG-NALOXONE 2* Dissolve 2 Film under the ton* CHOLECALCIFEROL (VITAMIN D3) * Take 1 capsule by mouth once * METOPROLOL TARTRATE 25 MG TAB* Take 1 tablet by mouth once d* IBUPROFEN 200 MG TABLET Take 1 tablet by mouth every * LISINOPRIL 20 MG TABLET Take 1 tablet by mouth once d* BUDESONIDE-FORMOTEROL HFA 160* Inhale 2 Puffs as instructed * ALBUTEROL SULFATE HFA 90 MCG/* Inhale 2 Puffs as instructed * IPRATROPIUM-ALBUTEROL 0.5 MG-* Inhale 3 mL as instructed catherine* DIVALPROEX 500 MG TABLET,CATINA* Take 2 tablets by mouth twice* COMPOUNDED PRESCRIPTION BLOOD PRESSURE CUFF FOR HOME * LURASIDONE 80 MG TABLET Take 1 tablet by mouth once d* Problem List As Of Date 01/13/2018 Noted Resolved Essential hypertension, benign [I10] INVALID FOR* Epilepsy [G40.909] INVALID FOR* Bipolar affective [F31.9] INVALID FOR* Anemia [D64.9] INVALID FOR* Back pain [M54.9] INVALID FOR* Special screening for malignant neoplasms, colo*INVALID FOR*02/04/2012 Unspecified constipation [K59.00] INVALID FOR* Benign neoplasm of colon [D12.6] INVALID FOR* Patellar tendonitis [M76.50] INVALID FOR*02/04/2012 Arthritis of knee, 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] INVALID FOR* History of drug abuse [Z87.898] INVALID FOR* Neoplasm of uncertain behavior of skin: R/O BCC*INVALID FOR*12/30/2016 BCC (basal cell carcinoma), face [C44.310] INVALID FOR*12/30/2016 BCC (basal cell carcinoma), eyelid [C44.111] INVALID FOR*12/30/2016 Skin cancer of face [C44.300] INVALID FOR*12/30/2016 Actinic skin damage [L57.8] INVALID FOR*12/30/2016 Melanocytic nevi of face [D22.30] INVALID FOR*12/30/2016 Solar lentigo [L81.4] INVALID FOR*12/30/2016 Open wound(s) (multiple) of unspecified site(s)*INVALID FOR*12/30/2016 Basal cell carcinoma, eyelid [C44.111] INVALID FOR*12/30/2016 Sleep apnea [G47.30] INVALID FOR* Personal history of colonic polyps [Z86.010] INVALID FOR* Letter Text Tarun Ayers MD [address] [facility] [address] Isaura Andres MA, Population Health .A. January 26, 2018 Jacklyn Powell [address] [facility] [address] Dear Ms. Powell In an effort to serve your healthcare needs, it has come to the attention of Tarun Ayers MD, your Primary Care Provider, that you are overdue for routine health care. We've attempted to contact you and have been unsuccessful. Please call the office at [phone] to schedule an appointment for Follow Up. In addition, you are due for the following health maintenance(s) Health Maintenance Due: BONE DENSITY due on 2017 ADULT PREVNAR-13 due on 2017 PNEUMOVAX AGE 65 AND OVER WITH 5YR LOOKBACK(1) due on 07/31/2017 MAMMOGRAM due on 12/12/2017 If any of these routine health care items were completed by an outside facility, please have that office fax the results to [phone] Attn: Tarun Ayers MD or bring the records with you to your appointment. We will gladly update your record. If you have any questions, please feel free to call the office at [phone] or message us via [employer]. Thank you for choosing the [facility]. Sincerely, Isaura Andres MA, [facility].A. (electronically signed to expedite mailing) Encounter Status:Closed by ISAURA ANDRES on 01/26/18 DISCHARGE INSTRUCTION Observed: 01/08/2018 Status: F Source: [place] 1:46 AM [facility] REPOSITORY [facility] Medical Records Department [address] [facility] [place] [address] Discharge Instruction 01/08/18 0145 MR#: [id number] Acct: [id number] Name: GIOVANA POWELL Rep #: [id number] : 1950 67 From: Rigo oFwler MD PCP: Esperanza Baird MD Status: REG ER ED Disposition - Plan for ED Patient: Disposition: Home or Assisted Living Chief Complaint: Mental Health Instructions: ED Manic Depression Referrals: Esperanza Baird MD [Primary Care Provider] - What to do if you have Problems For any increased pain, shortness of breath, bleeding, nausea or vomiting, chest pain, or any unexpected problems, contact your Primary Care Provider. Call [facility] ([phone]) or report to the closest Emergency Room. Call 911 if necessary. 01/08/18 0146 <Electronically signed by Rigo Fowler MD> Date Rigo Fowler MD Cosigner Signature (If Indicated): Date CC: Esperanza Baird MD EMERGENCY DEPARTMENT Observed: 01/08/2018 Status: F Source: [place] SUMMARY 1:45 AM [facility] REPOSITORY [facility] Medical Records Department [address] [place] [address] Emergency Department Summary 01/08/18 0038 MR#: [id number] Acct: [id number] Name: GIOVANA POWELL Rep #: [id number] : 1950 67 From: Rigo Fowler MD PCP: Esperanza Baird MD Status: REG ER - ER Visit Summary Date of Service: 01/08/18 Chief Complaint: I am dissociating History of Present Illness: The patient is a 67 F who presents with the above complaint. She states that she is dissociating and she wants a mental health evaluation. She states that she does not know what day it is and she is concerned about her mental health. Patient has been seen here many times for this in the past. She states that she has been medication compliant. She denies being suicidal or homicidal Physical Examination: Vital signs reviewed. HEENT exam unremarkable. Heart is regular rate and rhythm without murmurs. Lungs are clear to auscultation. Abdomen is soft and nontender. Extremities reveal no edema. Skin exam normal. Neurologic exam normal. Patient denies suicidal or homicidal ideation. She does have some flight of ideas when you speak with her. Test Results: Screening labs are negative. Tox screen does reveal benzodiazepines Emergency Department Course and Treatment: Patient was evaluated by crisis. Patient is mildly manic but she does not represent a harm to herself or anybody else. Both crisis and I feel she can be discharged to follow-up on Thursday with her psychiatrist. She will continue her home medications Treatment Plan: [] Disposition: Discharge Impression: Acute linnea This note was generated with [employer] dictation software. It may contain incorrect words, spelling, and punctuation that were not noted in review of the chart prior to signing ED Disposition - Plan for ED Patient: Chief Complaint: Mental Health Referrals: Esperanza Baird MD [Primary Care Provider] - What to do if you have Problems For any increased pain, shortness of breath, bleeding, nausea or vomiting, chest pain, or any unexpected problems, contact your Primary Care Provider. Call [facility] ([phone]) or report to the closest Emergency Room. Call 911 if necessary. 01/08/18 0145 <Electronically signed by Rigo Fowler MD> Date Rigo Fowler MD Cosigner Signature (If Indicated): Date CC: Esperanza Baird MD URINE DRUG SCREEN Collected: 01/08/2018 Status: F Source: [place] ([place]) 12:29 AM [facility] REPOSITORY TYPE CODE TESTS RESULT OUT OF RANGE REFERENCE UNITS LAB L505.0075 TO BE Normal CONFIRMED Result Comment: CONFIRMATORY TESTING FOR ALL POSITIVE URINE DRUG SCREEN RESULTS WILL ONLY BE SENT OUT UPON PHYSICIAN ORDER. VISTA Urine Drug Screen methods provide only preliminary analytical test results. A more specific alternate chemical method must be used in order to obtain a confirmed analytical result. Gas chromatography/mass spectrometery (GC/MS) is the preferred confirmatory method. Clinical consideration and professional judgement should be applied to any drug of abuse test result, particularly when preliminary positive results are used. URINE TCA TESTING MUST BE ORDERED SEPARATELY. USE TEST MNEMONIC: [facility] LAB L505.5005 VISTA UDS PH 5 Normal LAB L505.5015 <1000 ng/mL AMPHETAMINES Normal NEGATIVE LAB L505.5025 < 200 ng/mL BARBITIURATES Normal NEGATIVE LAB L505.5035 < 200 High ng/mL BENZODIAZIPINE POSITIVE LAB L505.5045 < 300 ng/mL COCAINE Normal NEGATIVE LAB L505.5055 < 500 ng/mL ECSTACY Normal NEGATIVE LAB L505.5065 < 300 ng/mL METHADONE Normal NEGATIVE LAB L505.5075 < 300 ng/mL OPIATES Normal NEGATIVE LAB L505.5085 < 25 ng/mL PCP Normal NEGATIVE LAB L505.5095 < 50 ng/mL THC Normal NEGATIVE Performed By: #### L505.5000 #### [facility] [address] [place], [address] CBC W/DIFF, AUTOMATED Collected: 01/08/2018 Status: F Source: [place] 12:25 AM [facility] REPOSITORY TYPE CODE TESTS RESULT OUT OF RANGE REFERENCE UNITS LAB L100.1000 4.4-11.0 K/mm3 Normal WBC 10.1 LAB L100.1200 4.2-5.4 M/mm3 Low RBC 3.93 LAB L100.1300 12.0-15.0 g/dl Normal HGB 12.4 LAB L100.1400 37-47 % Normal HCT 37.0 LAB L100.1500 81-99 fL Normal MCV 94.1 LAB L100.1600 27.0-32.0 pg Normal MCH 31.6 LAB L100.1700 32-36 g/gl Normal MCHC 33.5 LAB L100.1810 11.6-14.6 % Normal RDW CV 13.4 LAB L100.1820 35.1-43.9 fl High RDW SD 44.6 LAB L100.1900 150-450 K/mm3 High PLT 639 LAB L100.2000 6.2-12.0 fl Normal MPV 9.1 LAB L100.2100 47-70 % High NEUT% 70.1 LAB L100.2200 19-41 % Normal LY% 19.8 LAB L100.2300 0-10 % Normal MONO% 8.3 LAB L100.2400 0-5 % Normal EO% 1.2 LAB L100.2500 0-1 % Normal BASO% 0.3 LAB L100.2550 0.0-0.9 % Normal IM GRAN % 0.300 Result Comment: IG% - Immature Granulocytes (promyelocytes, myelocytes and metamyelocytes) > 1% indicates that a LEFT SHIFT is Present. LAB L100.2620 2.0-7.7 X10 3/uL Normal Absolute Neut 7.1 LAB L100.2720 0.83-4.51 X10 3/ul Normal Absolute Lymph 2.00 Performed By: #### L100.0100 #### [facility] [address] [place], [address] BASIC METABOLIC Collected: 01/08/2018 Status: F Source: [place] PROFILE (BMP) 12:25 AM [facility] REPOSITORY TYPE CODE TESTS RESULT OUT OF RANGE REFERENCE UNITS LAB L501.0100 74-106 mg/dL Normal GLU 89 Result Comment: Please note revised GLUCOSE reference range effective 2017. LAB L501.1000 7-18 mg/dL High BUN 19 LAB L501.1100 0.55-1.02 mg/dL Normal CREAT,SERUM 0.76 Result Comment: The validity of the calculated GFR AND GFRAA in patients over 70 years has not been determined. Clinical correlation is essential. LAB L501.1110 >60 mL/min Normal EST GFR 81 Result Comment: Non- GFR Calc LAB L501.1115 >60 mL/min Normal EST GFR - AA 99 Result Comment: GFR Calc LAB L501.1255 ml/min Normal Estimated CRCL 58.37 LAB L501.1300 10-20 RATIO High BUN/CRE 25.1 LAB L501.2200 8.5-10 mg/dL Normal .1 CA 8.7 LAB L501.5300 136-14 mmol/L Normal 5 NA 141 LAB L501.5600 3.5-5. mmol/L Normal 1 K 4.0 LAB L501.5900 98-107 mmol/L Normal CL 107 LAB L501.6100 21.0-3 mmol/L Normal 2.0 CO2 25.0 LAB L501.6200 5-15 Normal GAP 9 Performed By: #### L500.2500 #### [facility] [address] [facility] [place], [address] ,SERUM,HCG QUALI. Collected: Status: F Source: [place] 01/08/2018 12:25 AM [facility] REPOSITORY TYPE CODE TESTS RESULT OUT OF REFERENCE UNITS RANGE LAB L700.7000 0-9 Nonpreg Negative Normal HCGSQUAL NEGATIVE LAB L700.6700 =>Qualitative mIU/mL Normal HCG Qual < 1 triggr Performed By: #### L700.6800 #### [facility] [address] [facility] [place], [address] ALCOHOL, BLOOD Collected: 01/08/2018 Status: F Source: [place] (MEDICAL)-SERUM 12:25 AM [facility] REPOSITORY TYPE CODE TESTS RESULT OUT OF RANGE REFERENCE UNITS LAB L501.9100 mg/dL Normal SERUM < 3.0 ETOH Result Comment: The serum:whole blood ethanol ratio is approximately 1.14 and varies slightly with hematocrit.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 NSAIDs avoided due to reported recent [place] I. Medical screening obtained which was normal. She is medically cleared. She was value by mental health counselor. States he spoke to her last week, she is much better today. Likely because of the [place]. She is not suicidal. She will have appointment with her psychiatrist tomorrow. On reevaluation patient much more stable. She will be discharged. Treatment Plan: [] Disposition: Discharge Impression: 1. Allergic dermatitis 2. Bipolar stable This note was generated with [employer] dictation software. It may contain incorrect words, spelling, and punctuation that were not noted in review of the chart prior to signing ED Disposition - Plan for ED Patient: Disposition: Home or Assisted Living Chief Complaint: Mental Health Diagnosis: Bipolar disorder, Allergic drug rash Instructions: First Aid: Allergic Reactions, Understanding Bipolar Disorder Referrals: Zeke Jones Chi, MD [Primary Care Provider] - Additional Instructions: Continue Benadryl every 6 hours as needed. Use her topical ointments prescribed by her PCP. Follow-up with Dr. Lam tomorrow for your bipolar evaluation. What to do if you have Problems For any increased pain, shortness of breath, bleeding, nausea or vomiting, chest pain, or any unexpected problems, contact your Primary Care Provider. Call [facility] ([phone]) or report to the closest Emergency Room. Call 911 if necessary. 12/29/17 0616 <Electronically signed by Raymond Richardson> Date Raymond Richardson Cosigner Signature (If Indicated): Date CC: Zeke Jones MD URINE DRUG SCREEN Collected: 12/29/2017 Status: F Source: [place] (VISTA) 1:20 AM [facility] REPOSITORY TYPE CODE TESTS RESULT OUT OF RANGE REFERENCE UNITS LAB L505.0075 TO BE Normal CONFIRMED Result Comment: CONFIRMATORY TESTING FOR ALL POSITIVE URINE DRUG SCREEN RESULTS WILL ONLY BE SENT OUT UPON PHYSICIAN ORDER. VISTA Urine Drug Screen methods provide only preliminary analytical test results. A more specific alternate chemical method must be used in order to obtain a confirmed analytical result. Gas chromatography/mass spectrometery (GC/MS) is the preferred confirmatory method. Clinical consideration and professional judgement should be applied to any drug of abuse test result, particularly when preliminary positive results are used. URINE TCA TESTING MUST BE ORDERED SEPARATELY. USE TEST MNEMONIC: [facility] LAB L505.5005 VISTA UDS PH 6 Normal LAB L505.5015 <1000 ng/mL AMPHETAMINES Normal NEGATIVE LAB L505.5025 < 200 ng/mL BARBITIURATES Normal NEGATIVE LAB L505.5035 < 200 ng/mL BENZODIAZIPINE Normal NEGATIVE LAB L505.5045 < 300 ng/mL COCAINE Normal NEGATIVE LAB L505.5055 < 500 ng/mL ECSTACY Normal NEGATIVE LAB L505.5065 < 300 ng/mL METHADONE Normal NEGATIVE LAB L505.5075 < 300 ng/mL OPIATES Normal NEGATIVE LAB L505.5085 < 25 ng/mL PCP Normal NEGATIVE LAB L505.5095 < 50 ng/mL THC Normal NEGATIVE Performed By: #### L505.5000, L100.0100 #### [facility] [address] [place], [place], [address] CBC W/DIFF, AUTOMATED Collected: 12/29/2017 Status: F Source: [place] 1:20 AM [facility] REPOSITORY TYPE CODE TESTS RESULT OUT OF RANGE REFERENCE UNITS LAB L100.1000 4.4-11.0 K/mm3 High WBC 11.5 LAB L100.1200 4.2-5.4 M/mm3 Low RBC 4.17 LAB L100.1300 12.0-15.0 g/dl Normal HGB 13.1 LAB L100.1400 37-47 % Normal HCT 39.3 LAB L100.1500 81-99 fL Normal MCV 94.2 LAB L100.1600 27.0-32.0 pg Normal MCH 31.4 LAB L100.1700 32-36 g/gl Normal MCHC 33.3 LAB L100.1810 11.6-14.6 % Normal RDW CV 13.5 LAB L100.1820 35.1-43.9 fl High RDW SD 44.9 LAB L100.1900 150-450 K/mm3 High PLT 470 LAB L100.2000 6.2-12.0 fl Normal MPV 9.5 LAB L100.2100 47-70 % Normal NEUT% 64.2 LAB L100.2200 19-41 % Normal LY% 22.6 LAB L100.2300 0-10 % High MONO% 11.2 LAB L100.2400 0-5 % Normal EO% 1.2 LAB L100.2500 0-1 % Normal BASO% 0.3 LAB L100.2550 0.0-0.9 % Normal IM GRAN % 0.500 Result Comment: IG% - Immature Granulocytes (promyelocytes, myelocytes and metamyelocytes) > 1% indicates that a LEFT SHIFT is Present. LAB L100.2620 2.0-7.7 X10 3/uL Normal Absolute Neut 7.4 LAB L100.2720 0.83-4.51 X10 3/ul Normal Absolute Lymph 2.59 Performed By: #### L505.5000, L100.0100 #### [facility] [address] [place], [place], [id number] ALCOHOL, BLOOD Collected: 12/29/2017 Status: F Source: [place] ([facility])-SERUM 1:20 AM [facility] REPOSITORY TYPE CODE TESTS RESULT OUT OF RANGE REFERENCE UNITS LAB L501.9100 mg/dL Normal SERUM < 3.0 ETOH Result Comment: The serum:whole blood ethanol ratio is approximately 1.14 and varies slightly with hematocrit. Medical Alcohol reference interval and critical value in non-tolerant individuals; 50 - 100 Impairment 100 Intoxication 100 - 250 Severe Poisoning 250 - 400 Deep/possible fatal coma Performed By: #### L501.9100, L500.2500 #### [facility] [address] [facility] [place], [address] BASIC METABOLIC Collected: 12/29/2017 Status: F Source: [place] PROFILE (BMP) 1:20 AM [facility] REPOSITORY TYPE CODE TESTS RESULT OUT OF RANGE REFERENCE UNITS LAB L501.0100 74-106 mg/dL Normal GLU 89 Result Comment: Please note revised GLUCOSE reference range effective 2017. LAB L501.1000 7-18 mg/dL High BUN 21 LAB L501.1100 0.55-1.02 mg/dL Normal CREAT,SERUM 0.70 Result Comment: The validity of the calculated GFR AND GFRAA in patients over 70 years has not been determined. Clinical correlation is essential. LAB L501.1110 >60 mL/min Normal EST GFR 90 Result Comment: Non- GFR Calc LAB L501.1115 >60 mL/min Normal EST GFR - AA 109 Result Comment: GFR Calc LAB L501.1255 ml/min Normal Estimated CRCL 63.37 LAB L501.1300 10-20 RATIO High BUN/CRE 30.2 LAB L501.2200 8.5-10 mg/dL Normal .1 CA 8.6 LAB L501.5300 136-14 mmol/L Normal 5 NA 139 LAB L501.5600 3.5-5. mmol/L Normal 1 K 4.4 LAB L501.5900 98-107 mmol/L Normal CL 107 LAB L501.6100 21.0-3 mmol/L Normal 2.0 CO2 26.0 LAB L501.6200 5-15 Normal GAP 6 Performed By: #### L501.9100, L500.2500 #### [facility] [address] [facility] [place], [address] 12 LEAD ELECTROCARDIOGRAM Observed: 12/28/2017 Status: F Source: [place] 1:42 PM [facility] REPOSITORY [facility] Cardiovascular Services [address] [facility] [place] [address] 12 Lead EKG 12/24/17 2109 MR#: [id number] Acct: [id number] Name: GIOVANA POWELL Rep #: [id number] : 1950 67 From: Austin Khan MD Attending Dr: Kala Lopez Status: DIS AMERICO Ordering Dr: Austin Verdugo MD Date: 12/24/17 Location: MS3 Sex: F C Admitted: 12/24/17 Test Reason : MHC Blood Pressure : / mmHG Vent. Rate : 070 BPM Atrial Rate : 070 BPM P-R Int : 154 ms QRS Dur : 080 ms QT Int : 412 ms P-R-T Axes : 064 073 063 degrees QTc Int : 444 ms Normal sinus rhythm Normal ECG Confirmed by AUSTIN KHAN ([id number]), editor magazine DONATO CISSE ([id number]) on 12/28/2017 1:41:39 PM Referred By: DC Confirmed By:AUSTIN KHAN 12/28/17 1341 Date Austin Khan MD CC: Austin Verdugo MD; Zeke Jones MD Signed BASIC METABOLIC Collected: 12/28/2017 Status: F Source: [place] PROFILE (BMP) 11:59 AM [facility] REPOSITORY TYPE CODE TESTS RESULT OUT OF RANGE REFERENCE UNITS LAB L501.0100 74-106 mg/dL Normal GLU 89 Result Comment: Please note revised GLUCOSE reference range effective 2017. LAB L501.1000 7-18 mg/dL Normal BUN 18 LAB L501.1100 0.55-1.02 mg/dL Normal CREAT,SERUM 0.68 Result Comment: The validity of the calculated GFR AND GFRAA in patients over 70 years has not been determined. Clinical correlation is essential. LAB L501.1110 >60 mL/min Normal EST GFR 93 Result Comment: Non- GFR Calc LAB L501.1115 >60 mL/min Normal EST GFR - AA 112 Result Comment: GFR Calc LAB L501.1300 10-20 RATIO High BUN/CRE 26.6 LAB L501.2200 8.5-10.1 mg/dL CA Normal 8.8 LAB L501.5300 136-145 mmol/L NA Normal 138 LAB L501.5600 3.5-5.1 mmol/L K Normal 4.4 LAB L501.5900 98-107 mmol/L CL Normal 104 LAB L501.6100 21.0-32.0 mmol/L Normal CO2 28.0 LAB L501.6200 5-15 Normal GAP 6 Performed By: #### L500.2500 #### [facility] [address] [place], [address] DISCHARGE SUMMARY Observed: 12/25/2017 Status: F Source: [place] 7:15 PM [facility] REPOSITORY [facility] Medical Records Department [address] [place] [address] Discharge Summary 12/25/17 1821 MR#: [id number] Acct: [id number] Name: GIOVANA POWELL Rep #: [id number] : 1950 67 From: Albina Lopez DO PCP: Robert SEALS,Zeke Solis Status: ADM AMERICO Y Location: [place] [address] Discharge Date and Diagnosis - Problem List Patient Problems: Active and Suspected Problems YANE (acute kidney injury) (Acute) Dehydration (Acute) Linnea (Acute) Date of Admission: 12/24/17 Date of Discharge: 12/25/17 - Primary Discharge Diagnosis Active and Suspected Problems YANE (acute kidney injury) (Acute) - due to dehydration Dehydration (Acute) Linnea (Acute) - Secondary Discharge Diagnosis Chronic Problems COPD (chronic obstructive pulmonary disease) (Chronic) Manic depressive disorder (Chronic) Hypertension (Chronic) Tobacco abuse (Chronic) Noncompliance (Chronic) Bipolar disorder (Chronic) Opioid dependence (Chronic) Hospital Course and Treatment Imaging Results: Clinical Impression(s) from Imaging Studies Chest X-Ray 12/24/17 21:10 IMPRESSION: Old granulomatous disease. No acute cardiopulmonary pathology Electronically Signed: Hay Crabtree MD at 22:10 EST , Service support , Laboratory Tests WBC 16.0 H WBC RBC Hgb Hct Crisis Intervention Operations: None Procedures: None Summary of Care Provided: Ms. Powell is a 67-year-old female with past medical history of COPD, bipolar disorder, Chronic pain S (follows with Dr. Hylton for pain management), hypertension, tobacco dependence and opioid dependence (currently on suboxone) who presented to the [facility] emergency department on 12/24/2017 with increasing manic symptoms. She denied any suicidal ideation and also denied homicidal ideation. She had not slept in a few days and was not eating or drinking due to the linnea. She had recently been prescribed a Prednisone taper and Doxycycline byb her PCP for a skin infection beneath the pannus. Drug screen in the emergency room was negative and the ethanol level was 8. Her creatinine was increased at 1.32 and her baseline over the preceding year has ranged from 0.46-0.9. White blood cell count was increased at 16 but the patient has recently been on prednisone. UA was negative for evidence of infection and the chest x-ray showed no infiltrates. She was afebrile at presentation to the emergency. She was seen in the emergency room by the crisis intervention worker but transferred to a psychiatric facility could not be arranged due to the elevated creatinine and leukocytosis. She was admitted to the hospital and hydrated. Prednisone was discontinued. She did not require any sedation for agitation and the following morning the creat was 0.76. She continued to have flight of ideas but she was eating her breakfast and drinking her coffee when I interviewed her. She made good eye contact and was pleasant and calm. she was seen by the trailhead construction worker and he did not feel she needed acute psychiatric admission at this time. She has an appt with Dr. Tirado at the counselling center on Thursday and she will keep that appt. She was discharged home and instructed to discontinue Prednisone. We found no evidence of cellulitis beneath the pannus but there is mild hyperpigmentation which can be seen with Intertrigo. She will finish the Doxycycline. Diclofenac has been discontinued because she is also taking Celebrex. Will follow up with Dr. Jones in the office in 5-7 days. She will follow-up with Dr. Nolasco at the counseling center on Thursday as previously arranged. This note was generated with [employer] dictation software. It may contain incorrect words, spelling, and punctuation that were not noted in checking the note before signing. Discharge Activity: Return to Normal Activity Call your doctor if you observe: Fever of 101 or Higher, Shortness of breath, Dizziness, Fainting spells, Swelling in the ankles, Chest pain Home Medications: Medications to take at Discharge Clonidine HCl 0.1 mg PO TID 03/24/17 Lisinopril [Zestril] 20 mg PO DAILY 03/24/17 Metoprolol Tartrate [Lopressor (beta angelita)] 25 mg PO DAILY 03/24/17 HydrALAZINE [Apresoline] 50 mg PO TID 04/08/17 Divalproex (ER) [Depakote ER] 500 mg PO BID 06/20/17 Baclofen 10 mg PO DAILY 12/18/17 Celecoxib [Celebrex] 200 mg PO DAILY 12/18/17 Gabapentin [Neurontin] 300 mg PO QHS 12/18/17 Pravastatin [Pravachol] 40 mg PO QHS 12/18/17 Benztropine [Cogentin] 1 mg PO DAILY PRN 12/24/17 Buprenorphine HCl/Naloxone HCl [Suboxone 8 mg-2 mg Sl Film] 2 each SL DAILY 12/24/17 Doxycycline 100 mg PO BID 12/24/17 Guaifenesin [Mucinex] 600 mg PO BID 12/24/17 Paliperidone [Paliperidone ER] 3 mg PO QHS 12/24/17 Pantoprazole Sodium [Protonix] 20 mg PO DAILY 12/24/17 Primary Care Physician: Zeke Jones Chi, MD [Primary Care Provider] - Please follow up with your Primary Care Physician in: 7-10 DAYS Please Follow Up With: Cora Tirado MD When: KEEP YOUR APPT THURSDAY Disposition: Home Minutes spent on discharge:: 40 Patient Condition:: Stable Meaningful Use Info Meaningful Use Diagnoses (Choose all that apply): None applicable Code Visit Inpatient E AND M: 73036 Disch Hosp 12/25/17 1915 <Electronically signed by Albina Lopez DO> Date Albina Garciaign Signature (if applicable): Date CC: Kala Lopez; Zeke Jones MD Signed DISCHARGE INSTRUCTION Observed: 12/25/2017 Status: F Source: [place] 6:21 PM [facility] REPOSITORY [facility] Medical Records Department [address] [place] [address] Instructions for Home/Discharge Instructions 12/25/171813 MR#: [id number] Acct: [id number] Name: GIOVANA POWELL Rep #: [id number] : 1950 67 From: Albina Lopez DO PCP: Robert SEALS,Zeke Solis Status: ADM AMERICO You will use the following diet at home:: Other - Resume previous diet Your food should be the consistency of: Regular Your liquids should be the consistency of: Regular/Thin Discharge Activity: Return to Normal Activity Call your doctor if you observe: Fever of 101 or Higher, Shortness of breath, Dizziness, Fainting spells, Swelling in the ankles, Chest pain Additional Instructions: 1. The manic episode may have been caused by the prednisone. This medication can cause agitation and insomnia....it is like taking adrenaline and in someone with Bipolar Disorder this can cause an acute manic epidose. DISCONTINUE THE PREDNISONE Pending Tests on Discharge: Blood cultures Allergies/Adverse Reactions: Allergies lurasidone [From Latuda] Allergy (Verified 12/24/17 16:42) Other naproxen Allergy (Verified 12/24/17 16:42) Hives trazodone Allergy (Verified 12/24/17 16:42) Other theophylline Adverse Reaction (Verified 12/24/17 16:42) Other SLOBID Adverse Reaction (Uncoded 12/24/17 16:42) Other Medications to take at Discharge Clonidine HCl 0.1 mg PO TID 03/24/17 Lisinopril [Zestril] 20 mg PO DAILY 03/24/17 Metoprolol Tartrate [Lopressor (beta angelita)] 25 mg PO DAILY 03/24/17 HydrALAZINE [Apresoline] 50 mg PO TID 04/08/17 Divalproex (ER) [Depakote ER] 500 mg PO BID 06/20/17 Baclofen 10 mg PO DAILY 12/18/17 Celecoxib [Celebrex] 200 mg PO DAILY 12/18/17 Gabapentin [Neurontin] 300 mg PO QHS 12/18/17 Pravastatin [Pravachol] 40 mg PO QHS 12/18/17 Benztropine [Cogentin] 1 mg PO DAILY PRN 12/24/17 Buprenorphine HCl/Naloxone HCl [Suboxone 8 mg-2 mg Sl Film] 2 each SL DAILY 12/24/17 Doxycycline 100 mg PO BID 12/24/17 Guaifenesin [Mucinex] 600 mg PO BID 12/24/17 Paliperidone [Paliperidone ER] 3 mg PO QHS 12/24/17 Pantoprazole Sodium [Protonix] 20 mg PO DAILY 12/24/17 Primary Care Physician: Zeke Jones Chi, MD [Primary Care Provider] - Please follow up with your Primary Care Physician in: 7-10 DAYS Please Follow Up With: Cora Tirado MD When: KEEP YOUR APPT THURSDAY Proposed Discharge Date: 12/25/17 12/25/171820 <Electronically signed by Albina Lopez DO> Date Albina Lopez DO CC: Zeke Jones MD; Cora Tirado MD VALPROIC ACID Collected: 12/25/2017 Status: F Source: [place] ([place]) LEVEL 7:40 AM [facility] REPOSITORY TYPE CODE TESTS RESULT OUT OF RANGE REFERENCE UNITS LAB L501.8100 50-100 ug/mL Normal VALPROIC ACID 55 Performed By: #### L501.8100 #### [facility] [place], [address] CBC W/DIFF, AUTOMATED Collected: 12/25/2017 Status: F Source: [place] 5:50 AM [facility] REPOSITORY TYPE CODE TESTS RESULT OUT OF RANGE REFERENCE UNITS LAB L100.1000 4.4-11.0 K/mm3 High WBC 11.2 LAB L100.1200 4.2-5.4 M/mm3 Low RBC 3.77 LAB L100.1300 12.0-15.0 g/dl Low HGB 11.8 LAB L100.1400 37-47 % Low HCT 36.1 LAB L100.1500 81-99 fL Normal MCV 95.8 LAB L100.1600 27.0-32.0 pg Normal MCH 31.3 LAB L100.1700 32-36 g/gl Normal MCHC 32.7 LAB L100.1810 11.6-14.6 % Normal RDW CV 13.8 LAB L100.1820 35.1-43.9 fl High RDW SD 46.3 LAB L100.1900 150-450 K/mm3 Normal PLT 429 LAB L100.2000 6.2-12.0 fl Normal MPV 9.9 LAB L100.2100 47-70 % Normal NEUT% 63.8 LAB L100.2200 19-41 % Normal LY% 26.2 LAB L100.2300 0-10 % Normal MONO% 8.1 LAB L100.2400 0-5 % Normal EO% 0.8 LAB L100.2500 0-1 % Normal BASO% 0.2 LAB L100.2550 0.0-0.9 % Normal IM GRAN % 0.900 Result Comment: IG% - Immature Granulocytes (promyelocytes, myelocytes and metamyelocytes) > 1% indicates that a LEFT SHIFT is Present. LAB L100.2620 2.0-7.7 X10 3/uL Normal Absolute Neut 7.1 LAB L100.2720 0.83-4.51 X10 3/ul Normal Absolute Lymph 2.92 Performed By: #### L100.0100 #### [facility] [address] [facility]. [place], [place], [id number] BASIC METABOLIC Collected: 12/25/2017 Status: F Source: [place] PROFILE (BMP) 5:50 AM [facility] REPOSITORY TYPE CODE TESTS RESULT OUT OF RANGE REFERENCE UNITS LAB L501.0100 74-106 mg/dL Normal GLU 93 Result Comment: Please note revised GLUCOSE reference range effective 2017. LAB L501.1000 7-18 mg/dL High BUN 32 LAB L501.1100 0.55-1.02 mg/dL Normal CREAT,SERUM 0.76 Result Comment: The validity of the calculated GFR AND GFRAA in patients over 70 years has not been determined. Clinical correlation is essential. LAB L501.1110 >60 mL/min Normal EST GFR 81 Result Comment: Non- GFR Calc LAB L501.1115 >60 mL/min Normal EST GFR - AA 98 Result Comment: GFR Calc LAB L501.1255 ml/min Normal Estimated CRCL 58.37 LAB L501.1300 10-20 RATIO High BUN/CRE 42.2 LAB L501.2200 8.5-10 mg/dL Low .1 CA 7.8 LAB L501.5300 136-14 mmol/L Normal 5 NA 138 LAB L501.5600 3.5-5. mmol/L Normal 1 K 4.2 LAB L501.5900 98-107 mmol/L Normal CL 103 LAB L501.6100 21.0-3 mmol/L Normal 2.0 CO2 28.0 LAB L501.6200 5-15 Normal GAP 7 Performed By: #### L500.2500 #### [facility] [address] [facility] [place], [address] EMERGENCY DEPARTMENT Observed: 12/25/2017 Status: F Source: [place] SUMMARY 12:29 AM [facility] REPOSITORY [facility] Medical Records Department [address] [facility] [place] [address] Emergency Department Summary 12/24/17 2141 MR#: [id number] Acct: [id number] Name: GIOVANA POWELL Rep #: [id number] : 1950 67 From: Austin Verdugo MD PCP: Robert SEALS,Zeke Solis Status: ADM AMERICO - ER Visit Summary Date of Service: 12/24/17 Chief Complaint: Manic episode History of Present Illness: The patient is a 67 F with a history of bipolar disorder. She presents with increasing manic symptoms. She has not been eating or sleeping much over the last few days. She is not suicidal or homicidal. She was taking Invega and Depakote. Physical Examination: Vital signs unremarkable. Afebrile. Mildly agitated with flight of ideas. Heart regular. Lungs clear. Abdomen soft. Skin appears normal. No focal or lateralizing neurologic abnormalities. Test Results: EKG showed sinus rhythm at a rate of 70. Chest x-ray pending. Laboratory studies show white count of 16. BUN 38 and creatinine 1.32. Urinalysis shows signs of contamination. No overt signs of infection. Tox screen negative. Alcohol unremarkable. Cultures pending. Emergency Department Course and Treatment: Patient had psych precautions. She has manic symptoms and she is not taking her medications. I believe the patient would benefit from inpatient psychiatric care. She is not suicidal or homicidal. She was evaluated by the counselor here. Clearance testing showed a white count of 16 and an elevated creatinine. This is a departure from her baseline creatinine. Patient had 2 more findings in the past with a UTI and bacteremia. She does not have evidence of UTI today. Cultures are pending. I do not believe that she will receive adequate medical care at a psychiatric facility. IV fluids were started. I contacted the hospitalist to evaluate. The counselor said that when she is cleared, she may be transferred for further psychiatric care. Treatment Plan: As above Disposition: Admission Impression: 1. Bipolar disorder 2. Leukocytosis 3. Acute kidney injury This note was generated with WebGen Systemsation software. It may contain incorrect words, spelling, and punctuation that were not noted in review of the chart prior to signing ED Disposition - Plan for ED Patient: Chief Complaint: Mental Health Referrals: Zeke Jones Chi, MD [Primary Care Provider] - What to do if you have Problems For any increased pain, shortness of breath, bleeding, nausea or vomiting, chest pain, or any unexpected problems, contact your Primary Care Provider. Call [facility] ([phone]) or report to the closest Emergency Room. Call 911 if necessary. 12/25/17 0029 <Electronically signed by Austin Verdugo MD> Date Austin Verdugo MD Cosigner Signature (If Indicated): Date CC: Zeke Jones MD HISTORY AND PHYSICAL Observed: 12/24/2017 Status: F Source: [place] EXAM 11:06 PM [facility] REPOSITORY [facility] Medical Records Department [address] [place] [address] History and Physical 12/24/172201 MR#: [id number] Acct: [id number] Name: GIOVANA POWELL Rep #: [id number] : 1950 67 From: Yakov Mckeon MD PCP: Zeke Jones MD, Chi Status: ADM AMERICO Y Location: [place] [address] Problem List (1) COPD (chronic obstructive pulmonary disease) Status: Chronic Qualifiers: (2) Manic depressive disorder Status: Chronic Qualifiers: (3) Hypertension Status: Chronic Qualifiers: (4) Tobacco abuse Status: Chronic (5) Noncompliance Status: Chronic (6) Bipolar disorder Status: Chronic Qualifiers: (7) Opioid dependence Status: Chronic Qualifiers: History of Present Illness Date of Admission: 12/24/17 Chief Complaint: Manic symptoms. The patient is a 67 year old F with past medical history as mentioned above presented to the emergency room because of what appeared to be manic symptoms. The patient was over talkative, did not stop talking during the whole encounter. Reportedly, she has been not eating or drinking not sleeping over the last few days. She denies any suicidal or homicidal ideations or intentions. She denied chest pain or shortness of breath. Denied abdominal pain, nausea vomiting. Denied constipation or diarrhea. Denied cough or sputum production. Denied urinary symptoms. She was evaluated by the mental health team at the emergency room for possible admission to psych facility but she was found to have acute kidney injury and leukocytosis on blood work and the need to clear the patient medically to be admitted to the psych facility. Patient did admit that she has not been eating or drinking for the last few days. She has a history of hypertension which appears to be under control with hydralazine, lisinopril and metoprolol. She has a history of COPD but she is not using any treatment for it and appears to be stable and she has been on home oxygen. She has a history of bipolar disorder and she has been on Depakote and following up with psychiatry as outpatient. Back in November,, she had E. coli bacteremia due to acute cystitis. At this time, she is not suicidal or homicidal. In the emergency room, her vital signs were stable, she was afebrile. Her routine blood work is remarkable for leukocytosis and creatinine of 1.32. Urinalysis revealed no evidence of acute cystitis or UTI. Urine drug screen was negative, blood alcohol level was 8. She is being admitted for acute kidney injury and leukocytosis without evidence of infection. Past Medical History Past Medical History (Chronic Problems): Chronic Problems COPD (chronic obstructive pulmonary disease) (Chronic) Manic depressive disorder (Chronic) Hypertension (Chronic) Tobacco abuse (Chronic) Noncompliance (Chronic) Bipolar disorder (Chronic) Opioid dependence (Chronic) Allergies lurasidone [From Latuda] Allergy (Verified 12/24/17 16:42) Other naproxen Allergy (Verified 12/24/17 16:42) Hives trazodone Allergy (Verified 12/24/17 16:42) Other theophylline Adverse Reaction (Verified 12/24/17 16:42) Other SLOBID Adverse Reaction (Uncoded 12/24/17 16:42) Other Home Medications: Ambulatory Orders Medication Instructions Recorded Clonidine HCl 0.1 mg PO TID 03/24/17 Lisinopril [Zestril] 20 mg PO DAILY 03/24/17 Surgical History: hysterectomy, - - C-sections, hernia repair. 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 Denies: Chills, Fever, Weakness Eyes: Denies: Blurred vision, Double vision, Drainage, Redness HEENT: Denies: Difficulty Hearing, Ear Pain, Eye Pain, Nasal Congestion, Sore Throat Cardiovascular: Denies: Chest Pain, Chest Tightness, Heaviness, Light Headedness, Palpitations, Syncope Respiratory: Denies: Cough, Pleuritic Pain, Shortness of Breath, Sputum production, Wheezing Gastrointestinal: Denies: Abdominal Pain, Constipation, Diarrhea, Nausea, Vomiting Genitourinary: Denies: Dysuria, Frequency, Hematuria Musculoskeletal: Denies: Arm Pain, Back Pain, Foot Pain Skin: Denies: Dryness, Rash Neurological: Denies: Balance problems, Double vision, Change in Speech, Headaches, Incoordination, Numbness Psychiatric: Denies: Anxiety, Depression, Homicidal Ideations, Suicidal Ideations Endocrine: Denies: Change in Body Habitus, Polydipsia VTE Information - Inpt Only VTE Present on Admission: No VTE Mechan Device Prophylaxis: None VTE Pharm Prophylaxis ordered?: Yes - Physical Exam General: Alert, Oriented x3, Cooperative, - - Over talkative, hyperactive. HEENT: Atraumatic, PERRLA, EOMI Oral: Moist Mucosa, No Gingival or Mucosal Lesions/ Ulcerations Neck: Supple, No JVD, Negative Carotid Bruits, Trachea Midline, Thyroid Normal Size and Texture Lungs: Clear to auscultation, No rhonchi, No wheeze, No rales, Diminished Cardiovascular: Regular rate, Regular Rhythm, Normal S1, Normal S2, No murmurs, PMI Normal Abdomen: Bowel Sounds Present, Soft, Non Tender, Non-Distended, No Hepato-splenomegaly Extremities: No clubbing, No cyanosis, No edema Skin: No rashes, No breakdown Lymphatic: No Cervical, Supraclavicular, or Inguinal Adenopathy Neurological: Cranial nerves II-XII grossly intact, Motor Exam 5/5 strength throughout Psych/Mental Status: Impulsive, Manic, Alert and oriented to time, place, person, mood and affect Vital Signs Temp Pulse Resp BP Pulse Ox 98.4 F 75 16 126/83 H 96 12/24/17 21:54 12/24/17 21:54 12/24/17 21:54 12/24/17 21:54 12/24/17 21:54 Oxygen Delivery Method Room Air Weight: 165 lb 9.074 oz Body Mass Index (BMI) 32.3 Finger Stick Blood Glucose 161 Laboratory Tests Past 24 Hrs WBC RBC Hgb Hct MCV MCH MCHC RDW RDW Differential Plt Count MPV Immature Gran % (Auto) Neut % (Auto) Lymph % (Auto) Clinical Impression(s) from Imaging Studies Chest X-Ray 12/24/17 21:10 IMPRESSION: Old granulomatous disease. No acute cardiopulmonary pathology Electronically Signed: Hay Crabtree MD at 22:10 EST , Service support , Assessment/Plan This is a 67 years old female patient presented to the emergency room because of manic symptoms, found to have acute kidney injury and unexplained leukocytosis. She was evaluated by mental health team and they requested medical clearance to be admitted to psychiatric facility and she is being admitted for treatment of acute kidney injury and unexplained leukocytosis. #1 acute kidney injury: Prerenal secondary to dehydration and poor oral intake. Baseline kidney function is normal, most recently creatinine was 0.90. Admission creatinine is 1.32. Plan: Admit to [facility] floor, IV fluids, input output chart, encourage oral intake, repeat CBC and BMP tomorrow morning, hold nephrotoxic drugs. #2 leukocytosis: Likely reactive to anxiety, linnea and stress. She denied any symptoms suggestive of infection.. She had a history of E. coli bacteremia due to acute cystitis back in November,. At this time, she is afebrile, no evidence of sepsis or severe sepsis. Chest x-ray showed no acute infiltrate. Urinalysis reviewed, no evidence of acute cystitis. Blood culture sent. At this time, no indication for IV antibiotics. Plan: Close monitoring, urine culture, repeat CBC tomorrow morning, follow cultures. #3 manic episode: Patient was over talkative and hyperactive. She was evaluated by mental health team at the ER, recommended medical treatment for acute kidney injury and leukocytosis and then patient will need to be evaluated by mental health team again. #4 hypertension: Blood pressure stable, continue clonidine, hydralazine, lisinopril and metoprolol. #5 COPD: Clinically stable, pulse ox is normal on room air. Plan for albuterol as needed. #6 bipolar disorder: Continue Depakote. #7 tobacco abuse: NicoDerm patch if desired. #8 DVT prophylaxis: Subcu heparin. This note was generated with [employer] dictation software. It may contain incorrect words, spelling, and punctuation that were not noted in checking the note before signing. Code Visit OBSV E AND M: 29511 Initial observation care L3 12/24/17 1536 <Electronically signed by Yakov Mckeon MD> Date Yakov Mckeon MD Cosigner Signature: Date (if applicable) CC: Yakov Mckeon; Zeke Jones MD Signed Observed: 12/24/2017 Status: F Source: [place] CULTURE, BLOOD (WB) 10:15 PM [facility] REPOSITORY BC No growth in 5 days. Performed By: #### M200.1000 #### [facility] [address] [place], [address] Observed: 12/24/2017 Status: F Source: [place] CULTURE, BLOOD (WB) 9:25 PM [facility] REPOSITORY BC No growth in 5 days. Performed By: #### M200.1000 #### [facility] [address] [place], [address] CHEST 1 VIEW Observed: 12/24/2017 Status: F Source: [place] (PORTABLE) 8:48 PM [facility] REPOSITORY [facility] Imaging Services [address] [place] [address] Chest 1 View (Portable) MR#: [id number] Acct: [id number] Name: GIOVANA POWELL Rep #: [id number] : 1950 F 67 From: Hay Crabtree MD PCP: Robert SEALS,Zeke Solis Status: ADM AMERICO Study: Chest 1 View (Portable) Date of Exam: 12/24/17 Exam# [id number] Ordering Dr: Austin Verdugo MD STUDY: X-RAY CHEST REASON FOR EXAM: Female, 67 years old. Cough TECHNIQUE: AP portable COMPARISON: August 20, 2017 FINDINGS: The lungs are clear and expanded. Tiny calcified granuloma in right lower lobe There is no demonstrated pleural abnormality. Normal size heart. Normal mediastinum. Bilateral calcified hilar nodes Normal visualized pulmonary arteries. Normal visualized aortic arch and descending thoracic aorta. Dorsal spine demonstrates moderate spondylosis Normal visualized ribs, clavicles, and shoulders. There is no demonstrated abnormality of the visualized soft tissue structures of the upper abdomen. No significant change since prior study RAD/Chest 1 View (Portable) IMPRESSION: Old granulomatous disease. No acute cardiopulmonary pathology Electronically Signed: Hay Crabtree MD at 22:10 EST , Service support , CC: Austin Verdugo MD; Zeke Jones MD Stallion Manager: Signed URINE DRUG SCREEN Collected: 12/24/2017 Status: F Source: [place] ([place]) 5:56 PM [facility] REPOSITORY TYPE CODE TESTS RESULT OUT OF RANGE REFERENCE UNITS LAB L505.0075 TO BE Normal CONFIRMED Result Comment: CONFIRMATORY TESTING FOR ALL POSITIVE URINE DRUG SCREEN RESULTS WILL ONLY BE SENT OUT UPON PHYSICIAN ORDER. VISTA Urine Drug Screen methods provide only preliminary analytical test results. A more specific alternate chemical method must be used in order to obtain a confirmed analytical result. Gas chromatography/mass spectrometery (GC/MS) is the preferred confirmatory method. Clinical consideration and professional judgement should be applied to any drug of abuse test result, particularly when preliminary positive results are used. URINE TCA TESTING MUST BE ORDERED SEPARATELY. USE TEST MNEMONIC: [facility] LAB L505.5005 VISTA UDS PH 6 Normal LAB L505.5015 <1000 ng/mL AMPHETAMINES Normal NEGATIVE LAB L505.5025 < 200 ng/mL BARBITIURATES Normal NEGATIVE LAB L505.5035 < 200 ng/mL BENZODIAZIPINE Normal NEGATIVE LAB L505.5045 < 300 ng/mL COCAINE Normal NEGATIVE LAB L505.5055 < 500 ng/mL ECSTACY Normal NEGATIVE LAB L505.5065 < 300 ng/mL METHADONE Normal NEGATIVE LAB L505.5075 < 300 ng/mL OPIATES Normal NEGATIVE LAB L505.5085 < 25 ng/mL PCP Normal NEGATIVE LAB L505.5095 < 50 ng/mL THC Normal NEGATIVE Performed By: #### L505.5000 #### [facility] [place], [address] URINALYSIS, COMPLETE Collected: 12/24/2017 Status: F Source: [place] 5:56 PM [facility] REPOSITORY Order Comment: Order Date: 12/24/17 Has pt arrived? Y How was Urine Obtained? CLEAN CATCH TYPE CODE TESTS RESULT OUT OF RANGE REFERENCE UNITS LAB L400.3000 Yellow COLOR Normal Yellow LAB L400.3050 Clear Normal CLARITY Clear LAB L400.3200 Normal mg/dl Normal GLUCOSE, UR Normal LAB L400.3300 Negative mg/dL Normal BILIRUBIN URINE Negative LAB L400.3400 Negative mg/dl High 5 KETONE UR LAB L400.3465 1.002-1.030 Normal SP.GR. DIPSTX 1.015 LAB L400.3550 5.0 - 8.0 pH UR Normal 6.5 LAB L400.3600 Negative mg/dl High PROT 15 DIPSTX LAB L400.3700 Normal mg/dl High 1 UROBILI LAB L400.3750 Negative Normal NITRITE UR Negative LAB L400.3780 Negative /ul Normal OCCULT BLOOD-UR Negative LAB L400.3800 Negative /ul High LEUK 25 ESTERASE LAB L400.4050 0-5 /hpf WBC Normal 0-5 SEEN LAB L400.4100 0-5 /hpf 0 Normal RBC-UA SEEN LAB L400.4150 5-10 /hpf SQUAM Normal EPI 5-10 SEEN LAB L400.4300 None Seen /hpf 0 Normal BACTERIA SEEN LAB L400.4350 <or=2+ /hpf 0 Normal MUCUS, URINE SEEN LAB L400.4400 0-5 /lpf Normal HYALINE CAST 0-5 SEEN Performed By: #### L400.0001 #### [facility] [address] [place], [address] CBC W/DIFF, AUTOMATED Collected: 12/24/2017 Status: F Source: [place] 4:50 PM [facility] REPOSITORY TYPE CODE TESTS RESULT OUT OF RANGE REFERENCE UNITS LAB L100.1000 4.4-11.0 K/mm3 High WBC 16.0 LAB L100.1200 4.2-5.4 M/mm3 Normal RBC 4.32 LAB L100.1300 12.0-15.0 g/dl Normal HGB 13.4 LAB L100.1400 37-47 % Normal HCT 41.0 LAB L100.1500 81-99 fL Normal MCV 94.9 LAB L100.1600 27.0-32.0 pg Normal MCH 31.0 LAB L100.1700 32-36 g/gl Normal MCHC 32.7 LAB L100.1810 11.6-14.6 % Normal RDW CV 13.7 LAB L100.1820 35.1-43.9 fl High RDW SD 47.2 LAB L100.1900 150-450 K/mm3 High PLT 492 LAB L100.2000 6.2-12.0 fl Normal MPV 9.5 LAB L100.2100 47-70 % High NEUT% 78.7 LAB L100.2200 19-41 % Low LY% 15.2 LAB L100.2300 0-10 % Normal MONO% 5.3 LAB L100.2400 0-5 % Normal EO% 0.1 LAB L100.2500 0-1 % Normal BASO% 0.1 LAB L100.2550 0.0-0.9 % Normal IM GRAN % 0.600 Result Comment: IG% - Immature Granulocytes (promyelocytes, myelocytes and metamyelocytes) > 1% indicates that a LEFT SHIFT is Present. LAB L100.2620 2.0-7.7 X10 3/uL High Absolute Neut 12.6 LAB L100.2720 0.83-4.51 X10 3/ul Normal Absolute Lymph 2.43 Performed By: #### L100.0100 #### [facility] [address] [place], [address] BASIC METABOLIC Collected: 12/24/2017 Status: F Source: [place] PROFILE ([facility]) 4:50 PM [facility] REPOSITORY TYPE CODE TESTS RESULT OUT OF RANGE REFERENCE UNITS LAB L501.0100 74-106 mg/dL High GLU 111 Result Comment: Fasting Glucose result from 100 to 125 mg/dL suggests IMPAIRED HOMEOSTASIS per A.D.A. criteria. Please note revised GLUCOSE reference range effective 2017. LAB L501.1000 7-18 mg/dL High BUN 38 LAB L501.1100 0.55-1.02 mg/dL High CREAT,SERUM 1.32 Result Comment: The validity of the calculated GFR AND GFRAA in patients over 70 years has not been determined. Clinical correlation is essential. LAB L501.1110 >60 mL/min Low EST GFR 43 Result Comment: Non- GFR Calc LAB L501.1115 >60 mL/min Low EST GFR - AA 52 Result Comment: GFR Calc LAB L501.1255 ml/min Normal Estimated CRCL 30.52 LAB L501.1300 10-20 RATIO High BUN/CRE 28.8 LAB L501.2200 8.5-10 mg/dL Normal .1 CA 8.6 LAB L501.5300 136-14 mmol/L Normal 5 NA 137 LAB L501.5600 3.5-5. mmol/L Normal 1 K 4.1 LAB L501.5900 98-107 mmol/L Normal CL 103 LAB L501.6100 21.0-3 mmol/L Normal 2.0 CO2 26.0 LAB L501.6200 5-15 Normal GAP 8 Performed By: #### L500.2500 #### [facility] [address] [place], [address] ALCOHOL, BLOOD Collected: 12/24/2017 Status: F Source: [place] (MEDICAL)-SERUM 4:50 PM [facility] REPOSITORY TYPE CODE TESTS RESULT OUT OF RANGE REFERENCE UNITS LAB L501.9100 mg/dL Normal SERUM 8.0 ETOH Result Comment: The serum:whole blood ethanol ratio is approximately 1.14 and varies slightly with hematocrit. Medical Alcohol reference interval and critical value in non-tolerant individuals; 50 - 100 Impairment 100 Intoxication 100 - 250 Severe Poisoning 250 - 400 Deep/possible fatal coma Performed By: #### L501.9100 #### [facility] [address] [place], [address] EMERGENCY DEPARTMENT Observed: 12/23/2017 Status: F Source: [place] SUMMARY 7:32 AM [facility] REPOSITORY [facility] Medical Records Department [address] [facility] [place] [address] Emergency Department Summary 12/23/17 0137 MR#: [id number] Acct: [id number] Name: GIOVANA POWELL Rep #: [id number] : 1950 67 From: Abhay Hilario MD PCP: Robert SEALS,[facility] Status: DEP ER - ER Visit Summary Date of Service: 12/23/17 Chief Complaint: Manic History of Present Illness: The patient is a 67 F who sees a counselor at [address]. She reports that she has a history of bipolar disorder. States that she has not slept for 2 days. She denies any suicidal or homicidal ideation. No auditory hallucinations. She took 75 mg of Benadryl at 1130. Physical Examination: Vitals: Stable. Afebrile. General: Well-nourished and well-developed. Head: Normocephalic atraumatic. Neck: Supple, no lymphadenopathy. No JVD. Nontender. Cardiovascular: Regular rate and rhythm. No murmurs. Respiratory: No respiratory distress. Clear to auscultation bilaterally. Abdominal: Soft, nontender, nondistended, normal bowel sounds. No guarding, rebound, or peritoneal signs. Back: Nontender. Extremities: Nontender, no edema. Skin: Normal color, no rash. Neurologic: Alert and oriented 3. Cranial nerves II through XII are intact. Normal strength and sensation. Psych: Normal affect. Emergency Department Course and Treatment: Patient was given a dose of Ambien on arrival of her taxi. Treatment Plan: Patient is instructed to follow-up at 180 tomorrow for further evaluation. She already has an appointment. Disposition: To home in improved and stable condition. Impression: 1. Bipolar disorder. This note was generated with WebGen Systemsation software. It may contain incorrect words, spelling, and punctuation that were not noted in review of the chart prior to signing ED Disposition - Plan for ED Patient: Disposition: Home or Assisted Living Chief Complaint: Mental Health Instructions: ED Manic Depression Referrals: EIGHTY,ONE [STAFF PHYSICIAN] - Keep Lis appointment What to do if you have Problems For any increased pain, shortness of breath, bleeding, nausea or vomiting, chest pain, or any unexpected problems, contact your Primary Care Provider. Call [facility] ([phone]) or report to the closest Emergency Room. Call 911 if necessary. 12/23/17 0732 <Electronically signed by Abhay Hilario MD> Date Abhay Hilario MD Cosigner Signature (If Indicated): Date CC: Zeke Jones MD EMERGENCY DEPARTMENT Observed: 12/19/2017 Status: F Source: [place] SUMMARY 6:45 AM [facility] REPOSITORY [facility] Medical Records Department [address] [place] [address] [place] [address] Emergency Department Summary 12/18/17 2250 MR#: [id number] Acct: [id number] Name: GIOVANA POWELL Rep #: [id number] : 1950 67 From: Angelito Abel MD PCP: Zeke Jones MD, Chi Status: DEP ER - ER Visit Summary Date of Service: 12/18/17 Chief Complaint: [] Back pain History of Present Illness: The patient is a 67 F patient comes in by squad from [employer] with back pain. The patient stated that she has had whole-body syndrome over the last 7 days. She said it is from mentally disclosing a traumatic event publicly and now she is having pain as a result. She saw Dr. Jones in the office yesterday for some injections. He started her on gabapentin, prednisone, baclofen, diclofenac. Comes in for further treatment. She said that every muscle in her body has been aching Physical Examination: [] Vital signs reviewed General: Well-nourished well-developed Head: Normocephalic atraumatic Eyes: Pupils equal round and reactive to light extraocular movements intact ENT: TMs clear no hemotympanum no trauma Neck: Nontender full range of motion Cardiovascular: Regular rate rhythm no murmurs normal S1-S2 Respiratory: No distress clear to auscultation bilaterally chest nontender Abdomen: Soft nontender nondistended normal bowel sounds no masses Back: Nontender no CVA tenderness Extremities: Nontender active range of motion 4 extremities no trauma Skin: Normal color no trauma Neuro alert oriented cranial nerves II through XII intact normal strength sensation reflexes Test Results: [] Emergency Department Course and Treatment: [] Time I feel the patient has no acute emergent cause of her whole body pain. I feel this is psychological. She has affected give her a shot of Toradol. I did state that I will follow-up as an outpatient. Treatment Plan: [] Disposition: [] Impression: [] Body pain This note was generated with [employer] dictation software. It may contain incorrect words, spelling, and punctuation that were not noted in review of the chart prior to signing ED Disposition - Plan for ED Patient: Chief Complaint: Back Referrals: Zeke Jones Chi, MD [Primary Care Provider] - What to do if you have Problems For any increased pain, shortness of breath, bleeding, nausea or vomiting, chest pain, or any unexpected problems, contact your Primary Care Provider. Call [facility] ([phone]) or report to the closest Emergency Room. Call 911 if necessary. 12/19/1745 <Electronically signed by Angelito Abel MD> Date Angelito Abel MD Cosigner Signature (If Indicated): Date CC: Zeke Jones MD DISCHARGE INSTRUCTION Observed: 12/19/2017 Status: F Source: [place] 6:45 AM [facility] REPOSITORY [facility] Medical Records Department [address] [place] [address] Discharge Instruction 12/18/172251 MR#: [id number] Acct: [id number] Name: GIOVANA POWELL Rep #: [id number] : 1950 67 From: Angelito Abel MD PCP: Zeke Jones MD, Chi Status: DEP ER ED Disposition - Plan for ED Patient: Disposition: Home or Assisted Living Chief Complaint: Back Instructions: Relieving Back Pain Referrals: Zeke Jones Chi, MD [Primary Care Provider] - What to do if you have Problems For any increased pain, shortness of breath, bleeding, nausea or vomiting, chest pain, or any unexpected problems, contact your Primary Care Provider. Call [facility] ([phone]) or report to the closest Emergency Room. Call 911 if necessary. 12/19/1745 <Electronically signed by Angelito Abel MD> Date Angelito Abel MD Cosigner Signature (If Indicated): Date CC: Zeke Jones MD CBC W/DIFF, AUTOMATED Collected: 12/10/2017 Status: F Source: [place] 1:36 PM [facility] REPOSITORY TYPE CODE TESTS RESULT OUT OF RANGE REFERENCE UNITS LAB L100.1000 4.4-11.0 K/mm3 Normal WBC 9.5 LAB L100.1200 4.2-5.4 M/mm3 Normal RBC 4.69 LAB L100.1300 12.0-15.0 g/dl Normal HGB 15.0 LAB L100.1400 37-47 % Normal HCT 44.4 LAB L100.1500 81-99 fL Normal MCV 94.7 LAB L100.1600 27.0-32.0 pg Normal MCH 32.0 LAB L100.1700 32-36 g/gl Normal MCHC 33.8 LAB L100.1810 11.6-14.6 % Normal RDW CV 13.8 LAB L100.1820 35.1-43.9 fl High RDW SD 46.4 LAB L100.1900 150-450 K/mm3 High PLT 544 LAB L100.2000 6.2-12.0 fl Normal MPV 10.6 LAB L100.2100 47-70 % Normal NEUT% 58.5 LAB L100.2200 19-41 % Normal LY% 28.6 LAB L100.2300 0-10 % Normal MONO% 9.6 LAB L100.2400 0-5 % Normal EO% 2.5 LAB L100.2500 0-1 % Normal BASO% 0.3 LAB L100.2550 0.0-0.9 % Normal IM GRAN % 0.500 Result Comment: IG% - Immature Granulocytes (promyelocytes, myelocytes and metamyelocytes) > 1% indicates that a LEFT SHIFT is Present. LAB L100.2620 2.0-7.7 X10 3/uL Normal Absolute Neut 5.6 LAB L100.2720 0.83-4.51 X10 3/ul Normal Absolute Lymph 2.72 Performed By: #### L100.0100 #### [facility] [address] [place], [address] COMPREHENSIVE METABOLIC Collected: 12/10/2017 Status: F Source: [place] [facility] 1:36 PM [facility] REPOSITORY TYPE CODE TESTS RESULT OUT OF RANGE REFERENCE UNITS LAB L501.0100 74-106 mg/dL Normal GLU 90 Result Comment: Please note revised GLUCOSE reference range effective 2017. LAB L501.1000 7-18 mg/dL High BUN 20 LAB L501.1100 0.55-1.02 mg/dL Normal CREAT,SERUM 0.90 Result Comment: The validity of the calculated GFR AND GFRAA in patients over 70 years has not been determined. Clinical correlation is essential. LAB L501.1110 >60 mL/min Normal EST GFR 66 Result Comment: Non- GFR Calc LAB L501.1115 >60 mL/min Normal EST GFR - AA 80 Result Comment: GFR Calc LAB L501.1300 10-20 RATIO High BUN/CRE 22.1 LAB L501.1500 6.4-8.2 g/dL T Normal PROT 7.7 LAB L501.1800 3.2-5.0 g/dL Normal ALB 3.9 LAB L501.1950 2.2-4.2 g/dL Normal GLOB 3.8 LAB L501.2000 0.9-2.4 RATIO Normal A/G 1.0 LAB L501.2200 8.5-10.1 mg/dL CA Normal 9.4 LAB L501.4100 15-37 U/L Normal AST 16 LAB L501.4305 45-117 U/L Normal ALK P 106 LAB L501.4405 13-56 U/L Normal ALT 18 Result Comment: Please note revised ALT reference range effective 2017. LAB L501.4600 0.20-1.00 mg/dL Normal T BILI 0.50 LAB L501.5300 136-145 mmol/L Normal NA 136 LAB L501.5600 3.5-5.1 mmol/L Normal K 5.0 LAB L501.5900 98-107 mmol/L Normal CL 100 LAB L501.6100 21.0-32.0 mmol/L Normal CO2 29.0 LAB L501.6200 5-15 Normal GAP 7 Performed By: #### L500.4050, L501.9520 #### [facility] [address] [place], [place], [address] THYROID STIM HORMONE Collected: 12/10/2017 Status: F Source: [place] (TSH) 1:36 PM [facility] REPOSITORY TYPE CODE TESTS RESULT OUT OF RANGE REFERENCE UNITS LAB L501.9520 0.358-3.74 uIU/mL Normal TSH 1.06 Performed By: #### L500.4050, L501.9520 #### [facility] [address] [place], [address] VITAMIN D,25 HYDROXY Collected: 12/10/2017 Status: F Source: [place] 1:36 PM [facility] REPOSITORY TYPE CODE TESTS RESULT OUT OF REFERENCE UNITS RANGE LAB L506.1000 19.95-100.01 ng/mL Low Vitamin D 18.1 25-OH Result Comment: Vitamin D 25(OH) Status Range Deficiency <20 ng/mL (50nmol/L) Insuffciency 20 - 30 ng/mL (50 - 75 nmol/L) Sufficiency 30 - 100 ng/mL (75 - 250 nmol/L) Toxicity >100 ng/mL (>250 nmol/L) Performed By: #### L506.1000 #### [facility] [address] [place], [address] PLATELET COUNT Collected: 11/26/2017 Status: F Source: [place] 2:22 PM [facility] REPOSITORY TYPE CODE TESTS RESULT OUT OF RANGE REFERENCE UNITS LAB L100.1900 150-450 K/mm3 Normal PLT 443 Performed By: #### L100.1900 #### [facility] [address] [place], [address] VALPROIC ACID Collected: 11/26/2017 Status: F Source: [place] (DEPAKENE) LEVEL 2:22 PM [facility] REPOSITORY TYPE CODE TESTS RESULT OUT OF RANGE REFERENCE UNITS LAB L501.8100 50-100 ug/mL Normal VALPROIC ACID 57 Performed By: #### L501.8100 #### [facility] [address] [place], [address] AST(SGOT) Collected: 11/26/2017 Status: F Source: [place] 2:22 PM [facility] REPOSITORY TYPE CODE TESTS RESULT OUT OF RANGE REFERENCE UNITS LAB L501.4100 15-37 U/L Low AST 14 Performed By: #### L501.4100, L501.4405 #### [facility] [address] [place], [address] ALANINE AMINOTRANSFERAS Collected: 11/26/2017 Status: F Source: [place] (SGPT) 2:22 PM [facility] REPOSITORY TYPE CODE TESTS RESULT OUT OF RANGE REFERENCE UNITS LAB L501.4405 13-56 U/L Normal ALT 17 Result Comment: Please note revised ALT reference range effective 2017. Performed By: #### L501.4100, L501.4405 #### [facility] [address] [place], [address] ALLERGIES ALLERGIES DATE TYPE / CODE NAME / CODE REACTION SEVERITY SOURCE Drug theophylline/F0 Other Unknown [place] 9 Allergy/477855033( 74213564(RXNORM [facility] SNOMED CT) ) Hospital Repository Drug trazodone/F0060 Other Unknown [place] 9 Allergy/879888719( 13044(RXNORM) [facility] SNOMED CT) Hospital Repository Drug paliperidone/F0 increased Unknown [place] 9 Allergy/912389489( 39286254([facility] ) symptoms Hospital Repository Drug iloperidone/F00 Other Unknown [place] 9 Allergy/501753358( 9237970(RXNORM) [facility] SNOMED CT) Hospital Repository Drug lurasidone/F006 Other Unknown [place] 9 Allergy/601694423( 977628(RXNORM) [facility] SNOMED CT) Hospital Repository Miscellaneous SLOBID Other Unknown [place] 9 Allergy/037779564( Community SNOMED [facility]) Hospital Repository Drug naproxen/B89359 Hives Unknown [place] 8 Allergy/815028041( 2380(RXNORM) [facility] SNOMED CT) Hospital Repository DRUG/929964616(SNO GADOXETATE SHORTNESS OF [place] [address]) Clinic Main [place] Repository Miscellaneous OTHER Mental Chg [place] 2 Allergy/039457176( [facility] Main SNOMED [facility]) [place] Repository DRUG NAPROXEN HIVES [place] 1 INGREDI/768986284( Clinic Main SNOMED CT) [place] Repository ENCOUNTERS ENCOUNTERS ADMIT/DISCHARGE ACCOUNT ADMITTING ENCOUNTER LOCATION SOURCE NUMBER CLASS 11/09/2018 [id number] Ambulatory [facility] ing:NS Repository 10/26/2018/10/26/19 [id number] Ambulatory BMSBuilding:B [place] 19 MS.[facility] Hospital Repository 10/06/2018/10/06/20 [id number] Ambulatory BMSBuilding:B [place] 18 MS.[facility] Repository 09/29/2018/09/29/20 [id number] [facility] [address] ing:JE5Sobd: Repository JB384Tvd: 1 09/29/2018 [id number] Agyepong, Ambulatory BMSBuilding:B [place].[facility] Repository 09/28/2018/09/28/20 [id number] Ambulatory BMSBuilding:B [place] 18 MS.[facility] Repository 09/15/2018/09/15/20 [id number] Ambulatory BMSBuilding:B [place] 18 MS.[facility] Repository 09/12/2018/09/12/20 [id number] Emergency [address] ing:ED Repository 09/08/2018/09/08/20 [id number] Ambulatory BMSBuilding:B [place] 18 MS.[facility] Repository 09/07/2018/09/07/20 [id number] Ambulatory BMSBuilding:B [place] 18 MS.[facility] Repository 09/06/2018/09/17/20 [id number] Ambulatory [address] Hospital ing:NS Repository 09/02/2018/09/02/20 [id number] Emergency [address] ing:ED Repository 08/31/2018 [id number] Ambulatory BMSBuilding:B [place] MS.CF.[facility] Repository 08/31/2018/08/31/20 [id number] Ambulatory [address] ing:SDCRoom: Repository AC18 08/30/2018 [id number] Ambulatory BMSBuilding:B [place] MS.CF.[facility] Hospital Repository 08/26/2018 [id number] Ambulatory BMSBuilding:B [place] MS.CF.[facility] Repository 08/26/2018/08/26/20 [id number] Ambulatory [address] Hospital ing:ENRoom: Repository AC12 08/17/2018/08/18/20 [id number] Ambulatory [address] Hospital ing:NS Repository 08/09/2018/08/09/20 [id number] Ambulatory BMSBuilding:B [place] 18 MS.[facility] Repository 08/02/2018/08/03/20 [id number] Emergency [address] Hospital ing:ED Repository 07/22/2018/07/22/20 [id number] Ambulatory BMSBuilding:B [place] 18 MS.[facility] Repository 07/14/2018/07/14/20 [id number] Ambulatory BMSBuilding:B [place] 18 MS.[facility] Repository 06/24/2018/06/24/20 [id number] Emergency [address] Hospital ing:ED Repository 06/23/2018 [id number] Ambulatory [facility] Hospital ing:OMD Repository 06/23/2018 [id number] Ambulatory BMSBuilding:B [place] MS.CF.[facility] Hospital Repository 06/20/2018/06/20/20 [id number] Emergency [address] Hospital ing:ED Repository 06/16/2018/06/16/20 [id number] Ambulatory BMSBuilding:B [place] 18 MS.[facility] Hospital Repository 06/08/2018/06/08/20 [id number] Emergency [address] Hospital ing:ED Repository 06/04/2018/06/18/20 [id number] Ambulatory [address] Hospital ing:NS Repository 05/20/2018 [id number] Ambulatory BMSBuilding:B [place] MS.CF.[facility] Hospital Repository 05/04/2018 [id number] Ambulatory [facility] HospitalBuild Hospital ing:LAB Repository 04/28/2018/04/28/20 [id number] Ambulatory BMSBuilding:Les [place] 18 MS.[facility] Hospital Repository 03/26/2018/03/31/20 [id number] Ambulatory [address] Repository 03/14/2018/03/15/20 [id number] Ambulatory BMSBuilding:W [place] 18 [facility] Repository 03/13/2018/03/15/20 [id number] Sadiq Pearce Inpatient [address] Hospital ing:UU6Hooi: Repository [address]Str: 1 03/13/2018 [id number] Sadiq Pearce Ambulatory BMSBuilding:Les [place] MS.[facility] Repository 03/13/2018 [id number] Portia Sadiq Ambulatory BMSBuilding:Les [place] MS.CF.[facility] Repository 03/13/2018 [id number] Portia Sadiq Ambulatory BMSBuilding:Les [place] MS.[facility] Repository 03/13/2018/03/15/20 [id number] Ambulatory BMSBuilding:Mirna [place] 18 [facility] Repository 03/05/2018 [id number] [facility] 02/19/2018 [id number] [facility]MRI Repository 02/19/2018 [id number] [facility]:LAB Repository 02/15/2018 [id number] Ambulatory [facility] [place] g:H.PM Repository 02/11/2018/02/12/20 [id number] Ambulatory [address] HospitalBuild Hospital ing:PT Repository 02/05/2018 [id number] [facility] ing:OPUS Repository 02/04/2018/02/05/20 [id number] Ambulatory BMSBuilding:Les [place] 18 [facility] Repository 02/02/2018 [id number] Ambulatory [facility] Hospital ing:LABSPEC Repository 02/02/2018 [id number] [facility]HPRAD Repository 02/02/2018/02/03/20 [id number] Ambulatory BMSBuilding:B [place] 18 [facility] Hospital Repository 01/21/2018 [id number] [facility] ing:OPBD Repository 01/13/2018/01/15/20 [id number] Emergency [place] Hospital ing:ED Repository 01/13/2018/01/14/20 [id number] Ambulatory BMSBuilding:B [place] 18 [facility] Repository 01/08/2018/01/09/20 [id number] Emergency [address] Hospital ing:ED Repository 01/07/2018/01/08/20 [id number] Emergency [place] Hospital ing:ED Repository 01/06/2018/01/07/20 [id number] Ambulatory BMSBuilding:B [place] 18 [facility] Repository 01/04/2018/01/06/20 [id number] Emergency [place] Hospital ing:ED Repository 12/31/2017 [id number] Ambulatory [facility] Hospital ing:HPRAD Repository 12/31/2017/01/01/20 [id number] Ambulatory BMSBuilding:B [place] 18 [place].[facility] Hospital Repository 12/29/2017/12/30/19 [id number] Emergency [place] Hospital ing:ED Repository 12/28/2017 [id number] [facility] ing:POLAB3 Repository 12/24/2017/12/26/19 [id number] [facility], Ambulatory [place] 18 [facility] ing:EZ9Upch: Repository XZ934Gkv: 1 12/24/2017 [id number] [facility], Ambulatory BMSBuilding:B [place] Ghasem [facility] Repository 12/24/2017 [id number] [place], Ambulatory BMSBuilding:B [place] Nagy MS.WIP [facility] Repository 12/23/2017/12/24/19 [id number] Emergency [address] ing:ED Repository 12/18/2017/12/19/19 [id number] Emergency [address] ing:ED Repository 12/10/2017 [id number] Ambulatory [facility] ing:POLAB3 Repository 11/26/2017 [id number] Ambulatory [facility] ing:LAB Repository 11/23/2017 [id number] Ambulatory [facility] Yamini g:HMANSOOR Repository PAYERS PAYERS ENCOUNTER GUARANTOR PAYER SUBSCRIBER SOURCE 11/09/2018 GIOVANA POWELL1320 Primary GIOVANA SHANICEMOLLYDOB: [place] [address] Insurance:[facility] [id number] *IN [place] [address]Tel: (330) Number: Repository [phone] () [id number] Date:4076-90-53ONZY CLAIMS [address] [place] [id number]: 11/09/2018 Secondary NOT GIVENUNK [place] Insurance:SELF PAY [facility] Number: Effective Repository Date:2018-09-18 10/26/2018 GIOVANA POWELL1320 Primary GIOVANA POWELLDOB: [place] [address] Insurance:[facility] [id number] [address] *[place] [address]Tel: (330) Number: Repository [phone] () [id number] Date:1179-89-77WIZW CLAIMS [address] [place] [id number]: 10/26/2018 Secondary NOT GIVENUNK [place] Insurance:SELF PAY [facility] Number: Effective Repository Date:2018-10-14 10/06/2018 GIOVANA MURPHY0 Primary GIOVANA POWELLDOB: [place] [address] Insurance:[facility] [id number] [address] *[place] [facility] [address]Eds: (330) Number: Repository [phone] () [id number] Date:5940-91-90KVAD CLAIMS [address] [place] [id number]: 10/06/2018 Secondary NOT GIVENUNK [place] Insurance:SELF PAY [facility] Number: Effective Repository Date:2018-09-30 09/29/2018 GIOVANA POWELL1320 Primary GIOVANA POWELLDOB: [place] [address] Insurance:[facility] [id number] [address] *[place] [facility] [address]Jko: (330) Number: Repository [phone] () [id number] Date:5680-23-04VSKT CLAIMS [address]PTPO [address] [place] [phone]: 09/29/2018 Secondary NOT GIVENUNK [place] Insurance:SELF PAY [facility] Number: Effective Repository Date:2018-09-29 09/29/2018 GIOVANA POWELL1320 Primary GIOVANA POWELLDOB: [place] [address] Insurance:[facility] [id number] [address] *IN [facility] [address]Rxm: (330) Number: Repository [phone] () [id number] Date:5386-78-86KWZW CLAIMS [address]PT[address] [place] [id number]: 09/29/2018 Secondary NOT GIVENUNK [place] Insurance:SELF PAY [facility] Number: Effective Repository Date:2018-09-29 09/28/2018 GIOVANA POWELL1320 Primary GIOVANA POWELLDOB: [place] [address] Insurance:[facility] [id number] [address] *[place] [facility] [address]Ebe: (330) Number: Repository [phone] () [id number] Date:9922-50-47STQJ CLAIMS [address], [place] [address]VY: 09/28/2018 Secondary NOT GIVENUNK [place] Insurance:SELF PAY [facility] Number: Effective Repository Date:2018-09-28 09/15/2018 GIOVANA POWELL1320 Primary GIOVANA GRESHDOB: [place] [address] Insurance:[facility] [id number] [address], [place] *[place] [address]Tel: (330) Number: Repository [phone] () [id number] Date:9589-49-44TAJW CLAIMS [address], [place] [address]OD: 09/15/2018 Secondary NOT GIVENUNK [place] Insurance:SELF PAY [facility] Number: Effective Repository Date:2018-09-15 09/12/2018 GIOVANA [id number] Primary GIOVANA PRASADSHDOB: [place] [address] Insurance:[facility] [id number] [address] [place] *[place] [address]Tel: (330) Number: Repository [phone] () [id number] Date:0585-07-32YEKO CLAIMS [address], [place] [address]YP: 09/12/2018 Secondary NOT GIVENUNK [place] Insurance:SELF PAY [facility] Number: Effective Repository Date:2018-09-12 09/08/2018 GIOVANAAG POWELL1320 Primary GIOVANA POWELLDOB: [place] [address] Insurance:[facility] [id number] [address], [place] [address]Tel: (330) Number: Repository [phone] () [id number] Date:5528-40-85ZEPP CLAIMS [address], [place] [address]MK: 09/08/2018 Secondary NOT GIVENUNK [place] Insurance:SELF PAY [facility] Number: Effective Repository Date:2018-09-08 09/07/2018 GIOVANA POWELL1320 Primary GIOVANA POWELLDOB: [place] [address] Insurance:[facility] [id number] [address] *IN [facility] [address]Qea: (330) Number: Repository [phone] () [id number] Date:2209-97-57ZSPN CLAIMS [address], [place] [address]FU: 09/07/2018 Secondary NOT GIVENUNK [place] Insurance:SELF PAY [facility] Number: Effective Repository Date:2018-09-07 09/06/2018 GIOVANAAG MURPHY0 Primary GIOVANA POWELLDOB: [place] [address] [facility] [id number] [address] *IN [facility] [address]Dxs: (330) Number: Repository [phone] () [id number] Date:6740-93-22UBTW CLAIMS [address], [place] [address]TS: 09/06/2018 Secondary NOT GIVENUNK [place] Insurance:SELF PAY [facility] Number: Effective Repository Date:2018-08-19 09/02/2018 GIOVANA POWELL1320 Primary GIOVANA POWELLDOB: [place] [address] Insurance:[facility] [id number] [address] *IN [facility] [address]Hyx: (330) Number: Repository [phone] () [id number] Date:3358-89-19TSOQ CLAIMS [address], [place] [address]RT: 09/02/2018 Secondary NOT GIVENUNK [place] Insurance:SELF PAY [facility] Number: Effective Repository Date:2018-09-02 08/31/2018 GIOVANA POWELL1320 Primary GIOVANA POWELLDOB: [place] [address] Insurance:[facility] [id number] [address] *[place] [address]Tel: (330) Number: Repository [phone] () [id number] Date:0714-86-48USMK CLAIMS [address], [place] [address]AU: 08/31/2018 Secondary NOT GIVENUNK [place] Insurance:SELF PAY [facility] Number: Effective Repository Date:2018-08-31 08/31/2018 GIOVANA POWELL1320 Primary GIOVANA GRESHDOB: [place] [address] Insurance:[facility] [id number] [address] *[place] [address]Tel: (330) Number: Repository [phone] () [id number] Date:6988-55-97ILCJ CLAIMS DEPT[address] [place] [address]WB: 08/31/2018 Secondary NOT GIVENUNK [place] Insurance:SELF PAY [facility] Number: Effective Repository Date:2018-08-04 08/30/2018 GIOVANA POWELL1320 Primary GIOVANA GRESHDOB: [place] [address] Insurance:[facility] [id number] [address] *[place] [address]Tel: (330) Number: Repository [phone] () [id number] Date:7332-55-30JDFF CLAIMS [address] [place] [address]FX: 08/30/2018 Secondary NOT GIVENUNK [place] Insurance:SELF PAY [facility] Number: Effective Repository Date:2018-08-30 08/26/2018 GIOVANA [id number] Primary GIOVANA GRESHDOB: [place] [address] Insurance:[facility] [id number] [address] *[place] [address]Tel: (330) Number: Repository [phone] () [id number] Date:7509-69-46LXER CLAIMS [address]PT[address] [address]BE: 08/26/2018 Secondary NOT GIVENUNK [place] Insurance:SELF PAY [facility] Number: Effective Repository Date:2018-08-26 08/26/2018 GIOVANA POWELL1320 Primary GIOVANA POWELLDOB: [place] [address] Insurance:[facility] [id number] [address] *IN [facility] [address]Mkf: (330) Number: Repository [phone] () [id number] Date:9599-59-62EIGM CLAIMS [address] [place] [address]WF: 08/26/2018 Secondary NOT GIVENUNK [place] Insurance:SELF PAY [facility] Number: Effective Repository Date:2018-08-09 08/17/2018 GIOVANA [id number] Primary GIOVANA POWELLDOB: [place] [address] Insurance:[facility] [id number] [address] *[place] [address]Tel: (330) Number: Repository [phone] () [id number] Date:6536-74-11SOCW CLAIMS [address] [place] [address]QL: 08/17/2018 Secondary NOT GIVENUNK [place] Insurance:SELF PAY [facility] Number: Effective Repository Date:2018-06-19 08/09/2018 GIOVANAAG POWELL1320 Primary NOT GIVENUNK [place] [address] Insurance:SELF PAY [address] [address]Zvs: (330) Number: Effective Repository [phone] () Date:2018-08-09 08/02/2018 GIOVANAAG GIVENS Primary GIOVANA POWELLDOB: [place] [address] Insurance:[facility] [id number] [address] *IN [facility] [address]Anu: (330) Number: Repository [phone] () [id number] Date:7905-62-05VRKJ CLAIMS [address], [place] [address]ZY: 08/02/2018 Secondary NOT GIVENUNK [place] Insurance:SELF PAY [facility] Number: Effective Repository Date:2018-08-02 07/22/2018 GIOVANA POWELL1320 Primary GIOVANA POWELLDOB: [place] [address] Insurance:[facility] [id number] [facility] [id number] *[place] [facility] [address]Ixx: (330) Number: Repository [phone] () [id number] Date:3684-97-98JQGD CLAIMS [address], [place] [address]GH: 07/22/2018 Secondary NOT GIVENUNK [place] Insurance:SELF PAY [facility] Number: Effective Repository Date:2018-07-16 07/14/2018 GIOVANAAG MURPHY0 Primary GIOVANA POWELLDOB: [place] [address] Insurance:[facility] [id number] [facility] [id number], [place] *[place] [facility] [address]Lql: (330) Number: Repository [phone] () [id number] Date:4971-66-68VWUG CLAIMS [address], [place] [address]IJ: 07/14/2018 Secondary NOT GIVENUNK [place] Insurance:SELF PAY [facility] Number: Effective Repository Date:2018-07-14 06/24/2018 GIOVANAAG POWELL1320 Primary GIOVANA POWELLDOB: [place] [address] Insurance:[facility] [id number] [facility] [address], [place] *[place] [facility] [address]Zod: (330) Number: Repository [phone] () [id number] Date:5835-09-79GKVF CLAIMS [address], [place] [address]EB: 06/24/2018 Secondary NOT GIVENUNK [place] Insurance:SELF PAY [facility] Number: Effective Repository Date:2018-06-24 06/23/2018 GIOVANA POWELL1320 Primary GIOVANA PRASADSHDOB: [place] [address] Insurance:[facility] [id number] [address], [place] *[place] [facility] [address]Ipv: (330) Number: Repository [phone] () [id number] Date:0136-37-34IJNR CLAIMS [address], [place] [address]KN: 06/23/2018 Secondary NOT GIVENUNK [place] Insurance:SELF PAY [facility] Number: Effective Repository Date:2018-05-12 06/23/2018 GIOVANA POWELL1320 Primary GIOVANA POWELLDOB: [place] [address] Insurance:[facility] [id number] [address] *IN [facility] [address]Otj: (330) Number: Repository [phone] () [id number] Date:7467-72-81ZYIY CLAIMS [address], [place] [address]ID: 06/23/2018 Secondary NOT GIVENUNK [place] Insurance:SELF PAY [facility] Number: Effective Repository Date:2018-06-23 06/20/2018 GIOVANAAG POWELL1320 Primary GIOVANA POWELLDOB: [place] [address] Insurance:[facility] [id number] [address], [place] *[place] [facility] [address]Ffw: (330) Number: Repository [phone] () [id number] Date:3253-75-53PWXL CLAIMS [address], [place] [address]DT: 06/20/2018 Secondary NOT GIVENUNK [place] Insurance:SELF PAY [facility] Number: Effective Repository Date:2018-06-20 06/16/2018 GIOVANA POWELL1320 Primary GIOVANA POWELLDOB: [place] [address] Insurance:[facility] [id number] [address], [place] *[place] [address]Tel: (330) Number: Repository [phone] () [id number] Date:7409-13-92UPFP CLAIMS [address] [address]PA: 06/16/2018 Secondary NOT GIVENUNK [place] Insurance:SELF PAY [facility] Number: Effective Repository Date:2018-06-16 06/08/2018 GIOVANAAG POWELL1320 Primary GIOVANA GRESHDOB: [place] [address] Insurance:[facility] [id number] [address], [place] [address]Tel: (330) Number: Repository [phone] () [id number] Date:8150-23-69VOCL CLAIMS [address], [place] [address]HQ: 06/08/2018 Secondary NOT GIVENUNK [place] Insurance:SELF PAY [facility] Number: Effective Repository Date:2018-06-08 06/04/2018 GIOVANA POWELL1320 Primary GIOVANA GRESHDOB: [place] [address] Insurance:[facility] [id number] [address], [place] [address]Tel: (330) Number: Repository [phone] () [id number] Date:0890-44-25ICGI CLAIMS [address] [address]WG: 06/04/2018 Secondary NOT GIVENUNK [place] Insurance:SELF PAY [facility] Number: Effective Repository Date:2018-06-03 05/20/2018 GIOVANA [id number] Primary GIOVANA GRESHDOB: [place] [address] Insurance:[facility] [id number] [address], [place] [address]Tel: (330) Number: Repository [phone] () [id number] Date:8247-17-47LEXP CLAIMS [address] [address]CA: 05/20/2018 Secondary NOT GIVENUNK [place] Insurance:SELF PAY [facility] Number: Effective Repository Date:2018-05-20 05/04/2018 GIOVANA GIVENS Primary GIOVANA POWELLDOB: [place] [address] [facility] [id number] [address], [place] [address]Tel: (330) Number: Repository [phone] () [id number] Date:7441-21-43TONT CLAIMS [address], [place] [address]HW: 05/04/2018 Secondary NOT GIVENUNK [place] Insurance:SELF PAY [facility] Number: Effective Repository Date:2018-05-04 04/28/2018 GIOVANA GIVENS Primary GIOVANA TREVINOB: [place] [address] Insurance:[facility] [id number] [address], [place] [address]Tel: (330) Number: Repository [phone] () [id number] Date:2827-28-40QOCF CLAIMS [address], [place] [address]QK: 04/28/2018 Secondary NOT GIVENUNK [place] Insurance:SELF PAY [facility] Number: Effective Repository Date:2018-04-28 03/14/2018 GIOVANA GIVENS Primary GIOVANA TREVINOB: [place] [address] Insurance:[facility] [id number] [address], [place] [address]Tel: (330) Number: Repository [phone] () [id number] Date:2122-96-99XTDO CLAIMS [address] [address]YU: 03/14/2018 Secondary NOT GIVENUNK [place] Insurance:SELF PAY [facility] Number: Effective Repository Date:2018-03-14 03/13/2018 GIOVANA GIVENS Primary GIOVANA GRESHDOB: [place] [address] Insurance:[facility] [id number] [address] [place] *[place] [address]Tel: (330) Number: Repository [phone] () [id number] Date:6867-03-26VFCC CLAIMS [address], [place] [address]GN: 03/13/2018 Secondary NOT GIVENUNK [place] Insurance:SELF PAY [facility] Number: Effective Repository Date:2018-03-13 03/13/2018 GIOVNAA MURPHY0 Primary GIOVANA POWELLDOB: [place] [address] Insurance:[facility] [id number] [address] *[place] [address]Tel: (330) Number: Repository [phone] () [id number] Date:6117-36-70UEEC CLAIMS [address], [place] [address]NN: 03/13/2018 Secondary NOT GIVENUNK [place] Insurance:SELF PAY [facility] Number: Effective Repository Date:2018-03-13 03/13/2018 GIOVANAAG MURPHY0 Primary GIOVANA POWELLDOB: [place] [address] Insurance:[facility] [id number] [address], [place] [address]Tel: (330) Number: Repository [phone] () [id number] Date:4710-67-32TYIN [address]S [address], [place] [address]DT: 03/13/2018 Secondary NOT GIVENUNK [place] Insurance:SELF PAY [facility] Number: Effective Repository Date:2018-03-13 03/13/2018 GIOVANA POWELL1320 Primary GIOVANA POWELLDOB: [place] [address] Insurance:[facility] [id number] [address] [place] *[place] [address]Tel: (330) Number: Repository [phone] () [id number] Date:2928-94-78OKZM CLAIMS [address] [address]UD: 03/13/2018 Secondary NOT GIVENUNK [place] Insurance:SELF PAY [facility] Number: Effective Repository Date:2018-03-13 03/13/2018 GIOVANA POWELL1320 Primary GIOVANA GRESHDOB: [place] [address] Insurance:[facility] [id number] [address], [place] [address]Tel: (330) Number: Repository [phone] () [id number] Date:0754-61-66ACXK CLAIMS [address] [address]LM: 03/13/2018 Secondary NOT GIVENUNK [place] Insurance:SELF PAY [facility] Number: Effective Repository Date:2018-03-13 03/05/2018 GIOVANA [id number] Primary GIOVANA PRASADSHDOB: [place] [address] Insurance:[facility] [id number] [address] [place] *[place] [address]Tel: (330) Number: Repository [phone] () [id number] Date:6127-15-34FWQQ CLAIMS [address], [place] [address]VP: 03/05/2018 Secondary NOT GIVENUNK [place] Insurance:SELF PAY [facility] Number: Effective Repository Date:2018-02-04 02/19/2018 GIOVANAAG POWELL1320 Primary GIOVANA POWELLDOB: [place] [address] Insurance:[facility] [id number] [address] *[place] [address]Tel: (330) Number: Repository [phone] () [id number] Date:7421-29-30EYQV CLAIMS [address] [address]PS: 02/19/2018 Secondary NOT GIVENUNK [place] Insurance:SELF PAY [facility] Number: Effective Repository Date:2018-02-11 02/19/2018 GIOVANA POWELL1320 Primary GIOVANA POWELLDOB: [place] [address] Insurance:[facility] [id number] [address] *IN [facility] [address]Kgl: (330) Number: Repository [phone] () [id number] Date:1481-67-58OIOM CLAIMS DEPTPO [address] [place] [address]QU: 02/19/2018 Secondary NOT GIVENUNK [place] Insurance:SELF PAY [facility] Number: Effective Repository Date:2018-02-19 02/15/2018 GIOVANA POWELL1320 Primary GIOVANA DICKERSON [facility] [address] Insurance:[address] [facility] [address]Uio: (330) Number: [phone] () [id number] Date:2015-07-19[address] [place] [address]IS: 02/11/2018 GIOVANA POWELL1320 Primary GIOVANA POWELLDOB: [place] [address] Insurance:[facility] [id number] [address] *[place] [address]Tel: Number: Repository [phone] [id number] -9 () Date:0862-02-43HOSS CLAIMS [address]PT[address] [place] [address]US: 02/11/2018 Secondary NOT GIVENUNK [place] Insurance:SELF PAY [facility] Number: Effective Repository Date:2018-01-12 02/05/2018 GIOVANA [id number] Primary GIOVANA TREVINOB: [place] [address] Insurance:[facility] [id number] [address] *[place] [address]Tel: Number: Repository [phone] [id number] -9 (HP) Date:2328-15-00THVL CLAIMS [address], [place] [address]JN: 02/05/2018 Secondary NOT GIVENUNK [place] Insurance:SELF PAY [facility] Number: Effective Repository Date:2018-02-03 02/04/2018 GIOVANA POWELL1320 Primary GIOVANA GRESHDOB: [place] [address] Insurance:[facility] [id number] [address], [place] [address]Tel: Number: Repository [phone] [id number] -9 (HP) Date:4158-35-13LQXH CLAIMS DEPT[address] [place] [address]BA: 02/04/2018 Secondary NOT GIVENUNK [place] Insurance:SELF PAY [facility] Number: Effective Repository Date:2018-02-03 02/02/2018 GIOVANAAG POWELL1320 Primary GIOVANA PRASADSHDOB: [place] [address] Insurance:[facility] [id number] [address] [address]Tel: Number: Repository [phone] [id number] -9 (HP) Date:7619-93-06GZTL CLAIMS [address]PT[address] [place] [address]KJ: 02/02/2018 Secondary NOT GIVENUNK [place] Insurance:SELF PAY [facility] Number: Effective Repository Date:2018-02-02 02/02/2018 GIOVANAAG POWELL1320 Primary GIOVANA PRASADSHDOB: [place] [address] Insurance:[facility] [id number] [address] [address]Tel: Number: Repository [phone] [id number] -9 (HP) Date:3092-31-64YDQJ CLAIMS [address], [place] [address]CX: 02/02/2018 Secondary NOT GIVENUNK [place] Insurance:SELF PAY [facility] Number: Effective Repository Date:2018-02-02 02/02/2018 GIOVANA [id number] Primary GIOVANA POWELLDOB: [place] [address] Insurance:[facility] [id number] [address] *[place] [address]Tel: Number: Repository [phone] [id number] -9 (HP) Date:7341-47-06BGMF CLAIMS DEPT[address] [place] [address]GQ: 02/02/2018 Secondary NOT GIVENUNK [place] Insurance:SELF PAY [facility] Number: Effective Repository Date:2018-02-02 01/21/2018 GIOVANAAG POWELL1320 Primary GIOVANA POWELLDOB: [place] [address] Insurance:[facility] [id number] [address] *[place] [address]Tel: Number: Repository [phone] [id number] -9 (HP) Date:2756-80-10VAKH CLAIMS DE[address] [place] [address]IZ: 01/21/2018 Secondary NOT GIVENUNK [place] Insurance:SELF PAY [facility] Number: Effective Repository Date:2018-01-12 01/13/2018 GIOVANA [id number] Primary GIOVANA POWELLDOB: [place] [address] Insurance:[facility] [id number] [address] *[place] [id number]: Number: Repository [phone] [id number] -3 (HP) Date:2146-24-18MUMG CLAIMS [address], [place] [address]HB: 01/13/2018 Secondary NOT GIVENUNK [place] Insurance:SELF PAY [facility] Number: Effective Repository Date:2018-01-13 01/13/2018 GIOVANA [id number] Primary GIOVANA POWELLDOB: [place] [address] Insurance:[facility] [id number] [address] [address]Tel: Number: Repository [phone] [id number] -3 (HP) Date:6269-54-50IXMS CLAIMS [address], [place] [address]ZO: 01/13/2018 Secondary NOT GIVENUNK [place] Insurance:SELF PAY [facility] Number: Effective Repository Date:2018-01-13 01/08/2018 GIOVANAAG POWELL1320 Primary GIOVANA GRESHDOB: [place] [address] Insurance:[facility] [id number] [address] [address]Tel: Number: Repository [phone] [id number] -3 (HP) Date:8623-81-23FHZB CLAIMS [address], [place] [address]UL: 01/08/2018 Secondary NOT GIVENUNK [place] Insurance:SELF PAY [facility] Number: Effective Repository Date:2018-01-08 01/07/2018 GIOVANA POWELL1320 Primary GIOVANA POWELLDOB: [place] [address] Insurance:[facility] [id number] [address] [address]Tel: Number: Repository [phone] [id number] -3 () Date:1872-34-65FVZG CLAIMS [address], [place] [address]CI: 01/07/2018 Secondary NOT GIVENUNK [place] Insurance:SELF PAY [facility] Number: Effective Repository Date:2018-01-07 01/06/2018 GIOVANA [id number] Primary GIOVANA POWELLDOB: [place] [address] Insurance:[facility] [id number] [address] [address]Tel: Number: Repository [phone] [id number] -3 (HP) Date:8322-76-60OMRN CLAIMS DEPTPO [address] [place] [address]EB: 01/06/2018 Secondary NOT GIVENUNK [place] Insurance:SELF PAY [facility] Number: Effective Repository Date:2018-01-06 01/04/2018 GIOVANA [id number] Primary GIOVANA POWELLDOB: [place] [address] Insurance:[facility] [id number] [address] *[place] [address]Tel: Number: Repository [phone] [id number] -3 (HP) Date:2109-94-59DFDM CLAIMS DEPT[address] [place] [address]SQ: 01/04/2018 Secondary NOT GIVENUNK [place] Insurance:SELF PAY [facility] Number: Effective Repository Date:2018-01-04 12/31/2017 GIOVANAAG [id number] Primary GIOVANA POWELLDOB: [place] [address] Insurance:[facility] [id number] [address] *[place] [address]Tel: Number: Repository [phone] [id number] -3 (HP) Date:0421-17-98KCEH CLAIMS DEPTPO [address] [place] [id number]: 12/31/2017 Secondary NOT GIVENUNK Roselyn Insurance:SELF PAY [facility] Number: Effective Repository Date:2017-12-31 12/31/2017 GIOVANA [id number] Primary GIOVANA POWELLDOB: [place] [address] Insurance:[facility] [id number] [address] *[place] [address]Tel: Number: Repository [phone] [id number] (HP) Date:[id number] CLAIMS DEPT[address], [place] [phone]: 12/31/2017 Secondary NOT GIVENUNK [place] Insurance:SELF PAY [facility] Number: Effective Repository Date:2017-12-30 12/29/2017 GIOVANA GIVENS Primary GIOVANA POWELLDOB: [place] [address] Insurance:[facility] [id number] [address] [place], [place] [address]Tel: Number: Repository [phone] [id number] (HP) Date:[id number] CLAIMS DEPTPO [address] [place] [id number]: 12/29/2017 Secondary NOT GIVENUNK Roselyn Insurance:SELF PAY [facility] Number: Effective Repository Date:2017-12-29 12/28/2017 Giovana Murphy0 Primary Giovana PowellDOB: [place] [address] Insurance:[facility] [id number] [address], [place] [address]Tel: [phone] Number: Repository [phone] () [id number] Date:[id number] CLAIMS DEPTPO [address] [place] [phone]: 12/28/2017 Secondary NOT GIVENUNK [place] Insurance:SELF PAY [facility] Number: Effective Repository Date:2017-12-28 12/24/2017 Giovana Murphy0 Primary Giovana PowellDOB: [place] [address] Insurance:[facility] [id number] [address], [place] *[place] [address]Tel: [phone]) Number: Repository [phone] () [id number] Date:[id number] [address]S [address], [place] [phone]: 12/24/2017 Secondary NOT GIVENUNK [place] Insurance:SELF PAY [facility] Number: Effective Repository Date:2017-12-24 12/24/2017 Giovanaag [id number] Primary Giovana PowellDOB: [address] Insurance:[employer] [id number] [address] *IN [place] [address]Tel: [phone] Number: Repository [phone] () [id number] Date:[id number] CLAIMS DEPTPO [address] [place] [phone]: 12/24/2017 Secondary NOT GIVENUNK Roselyn Insurance:SELF PAY [facility] Number: Effective Repository Date:2017-12-24 12/24/2017 Giovana Murphy0 Primary Giovana PowellDOB: [address] Insurance:[facility]ARE [facility] [id number] [address] *[place] [address]Tel: [phone] Number: Repository [phone] () [id number] Date:[id number] CLAIMS DEPTPO [address] [place] [phone]: 12/24/2017 Secondary NOT GIVENUNK [place] Insurance:SELF PAY [facility] Number: Effective Repository Date:2017-12-24 12/23/2017 Giovana Powell1320 Primary Giovana PowellDOB: [address] Insurance:[facility] [id number] [address] *[place] [address]Tel: [phone]) Number: Repository [phone] () [id number] Date:7736-28-76GURF CLAIMS DEPTPO [address], [place] [phone]: 12/23/2017 Secondary NOT GIVENUNK Roselyn Insurance:SELF PAY [facility] Number: Effective Repository Date:2017-12-23 12/18/2017 Giovana Powell1320 Primary Giovana PowellDOB: [address] Insurance:[employer]S [id number] [address] *[facility] [address]Uxb: (000) Number: Repository [phone] (HP) [id number] Date:4871-05-39ENCN CLAIMS DEPTPO [address] [place] [phone]: 12/18/2017 Secondary NOT GIVENUNK Roselyn Insurance:SELF PAY [facility] Number: Effective Repository Date:2017-12-18 12/10/2017 Giovana Murphy0 Primary Giovana PowellDOB: [address] Insurance:[employer]S [id number] [address] *IN [facility] [address]Zps: Number: Repository [phone] [id number] (HP) Date:5575-01-91HMLM CLAIMS DEPTPO [address] [place] [phone]: 12/10/2017 Secondary NOT GIVENUNK [place] Insurance:SELF PAY [facility] Number: Effective Repository Date:2017-12-10 11/26/2017 Giovana Murphy0 Primary Giovana PowellDOB: [address] Insurance:[facility] [id number] [address] *IN [facility] [address]Nob: Number: Repository [phone] [id number] (HP) Date:[id number] CLAIMS DEPTPO [address] [place] [phone]: 11/26/2017 Secondary NOT GIVENUNK Roselyn Insurance:SELF PAY [facility] Number: Effective Repository Date:2017-11-26 11/23/2017 GIOVANA MURPHY0 Primary GIOVANA DICKERSON [facility] [address] Insurance:[address] [facility] Repository [address]Ges: [phone] Number: [phone] (HP) [id number] Date:2015-07-19[address] [place] [id number]:
== END 2018-09-29 13:32 | disposition home or self-care (01) ==
LOC: ED 03:50 → MS3 05:15
PROVIDERS: Admitting Provider Hospitalist; Emergency Provider Emergency Medicine; Family Provider Internal Medicine; PCP Internal Medicine; Visit Provider Internal Medicine
DX: R19.7 Diarrhea, unspecified (principal); R10.9 Unspecified abdominal pain; K21.9 Gastro-esophageal reflux disease without esophagitis; I10 Essential (primary) hypertension; J44.9 Chronic obstructive pulmonary disease, unspecified; F44.81 Dissociative identity disorder; M06.9 Rheumatoid arthritis, unspecified; F43.12 Post-traumatic stress disorder, chronic; E78.5 Hyperlipidemia, unspecified; F31.9 Bipolar disorder, unspecified; Z85.828 Personal history of other malignant neoplasm of skin; Z87.891 Personal history of nicotine dependence; D47.3 Essential (hemorrhagic) thrombocythemia; G40.909 Epilepsy, unspecified, not intractable, without status epilepticus; L30.4 Erythema intertrigo
CPT/HCPCS: 80048; 85025; 87177; 87209; 87329; 87493; 87506; 96361; 96365; 96367; 96372; 96375; 97162; 97165; 99218; 99285; 99406; J7030; J7120; A4216; G0378; J0744; J2405

== ENCOUNTER 2018-11-09 13:24 | Outpatient (RCR) | payer MEDICARE, SELFPAY ==
[2018-09-18 00:22] VITALS: BMI 32.2
[2018-10-26 15:06] VITALS: BMI 31.4
== END 2018-11-18 23:59 ==
LOC: NS 13:24
PROVIDERS: Family Provider Internal Medicine; PCP Internal Medicine; Visit Provider Nurse Practitioner Family
DX: E66.9 Obesity, unspecified (principal); Z68.32 Body mass index [BMI] 32.0-32.9, adult; Z71.3 Dietary counseling and surveillance
CPT/HCPCS: 97803

== ENCOUNTER 2018-12-29 12:06 | Emergency (ER) | payer MEDICARE, SELFPAY ==
[2018-12-15 08:24] VITALS: BMI 31.4
[2018-12-29 12:07] VITALS: BP 166/89; PULSE 77; RESP 12; TEMP 36.4; O2SAT 98; BMI 26.6
[2018-12-29 12:14] VITALS: BP 166/88; PULSE 78; RESP 16; O2SAT 95
--- NOTE | 2018-12-29 12:18 | EKG12_ITS ---
Test Reason : Blood Pressure : / mmHG Vent. Rate : 069 BPM Atrial Rate : 069 BPM P-R Int : 180 ms QRS Dur : 086 ms QT Int : 416 ms P-R-T Axes : 060 067 071 degrees QTc Int : 445 ms Normal sinus rhythm Normal ECG Confirmed by CORKY SEALS, FARHEEN ([id number]), editor & co founder DONATO CISSE ([id number]) on 12/31/2018 8:02:24 AM Referred By: Esperanza Baird Confirmed By:FARHEEN FRIED MD
--- NOTE | 2018-12-29 12:18 | CT_ITS ---
STUDY: CT BRAIN WITHOUT CONTRAST REASON FOR EXAM: Female, 68 years old. Confusion. RADIATION DOSAGE (If Supplied By Facility): CTDIvol = ( 44.99 ) mGy, DLP = ( 829.85 ) mGycm TECHNIQUE: Transaxial CT imaging of the brain was performed without administration of intravenous contrast material. Individualized dose optimization techniques were used for this CT. COMPARISON: Comparison is made with prior study dated September 02, 2018. FINDINGS: Normal soft tissue structures. Normal calvarium. There is mild cerebral atrophy with widening of the extra-axial spaces and ventricular dilatation. There are areas of decreased attenuation within the white matter tracts of the supratentorial brain, consistent with microvascular disease changes. Small old lacunar infarct in the right basal ganglion. Normal brainstem. Normal cerebellum. There is no intracranial hemorrhage. There are no findings of an acute ischemic infarction. Atherosclerotic calcification of the vertebral arteries and cavernous portions of the internal carotid arteries bilaterally. Opacification of the right maxillary sinus. Mucosal thickening of the left maxillary sinus. CT/Brain/Head without Contrast IMPRESSION: Chronic involutional changes of the brain. Electronically Signed: Wil Ortega, at 14:33 EDT , Service support ,
--- NOTE | 2018-12-29 12:22 | ED.VISSUMM ---
- ER Visit Summary Date of Service: 12/29/18 Chief Complaint: Abnormal behavior History of Present Illness: The patient is a 68 F presents to the emergency department with abnormal behavior. Patient has a history of dissociative identity disorder and bipolar disorder. She states that she was well maintained for a few years on Depakote, but her dose was cut about a year ago. She states over the past few weeks, she is been having abnormal behavior. She states a week ago, she was having both visual and auditory hallucinations. She states that she is being investigated by the [facility] Department for trying to obtain an appropriate tension. She states she just does not feel like herself. She denies any suicidal ideation. She denies any homicidal ideation. She denies any drug use. Physical Examination: Vital signs reviewed General: Well-nourished, well-developed Head: Normocephalic, atraumatic Eyes: Pupils equal and reactive, extraocular muscles intact Neck, supple, no lymphadenopathy Heart: Regular rate and rhythm Respiratory: No distress, clear bilaterally Abdomen: Soft, nontender, nondistended, no peritoneal signs Back: Nontender Extremities: Nontender, no edema, no cords Skin: Normal color no rash Neuro: Alert and oriented, no focal or lateralizing deficits Test Results: [] Emergency Department Course and Treatment: The patient presents with abnormal behavior. She is having hallucinations. Metabolic workup was pursued. Her Depakote level is therapeutic. EKG was unremarkable. Head CT was unremarkable. Tox was negative. At this time, I do feel the patient is going require crisis evaluation given her increased hallucinations and abnormal behavior. Treatment Plan: [] Disposition: Pending Impression: 1. Hallucinations 2. Abnormal behavior This note was generated with [employer] dictation software. It may contain incorrect words, spelling, and punctuation that were not noted in review of the chart prior to signing ED Disposition - Plan for ED Patient: Referrals: Esperanza Baird MD [Primary Care Provider] -
[2018-12-29 13:09] LABS: Absolute Lymphocyte Count 2.62 X10^3/ul (0.83-4.51); Absolute Neutrophil Count 6.1 X10^3/uL (2.0-7.7); Basophil# 0.03 X10^3/uL; Basophil% 0.3 % (0-1); Eosinophil# 0.24 X10^3/uL; Eosinophils% 2.5 % (0-5); Hematocrit 41.4 % (37-47); Hemoglobin 13.3 g/dl (12.0-15.0); Lymphocyte # 2.62 X10^3/ul (4.0); Lymphocyte % 26.9 % (19-41); Mean Corp Hgb Conc 32.1 g/gl (32-36); Mean Corpuscular Hgb 30.1 pg (27.0-32.0); Mean Corpuscular Volume 93.7 fL (81-99); Mean Platelet Vol. 9.7 fl (6.2-12.0); Monocyte# 0.69 X10^3/uL; Monocyte% 7.1 % (0-10); Neutrophil # 6.12 X10^3/uL (2.7-7.7); Neutrophil % 62.9 % (47-70); Platelet Count 434 K/mm3 (150-450); RBC Distribution Width CV 14.1 % (11.6-14.6); RBC Distribution Width SD 48.1 fl (35.1-43.9); Red Blood Count 4.42 M/mm3 (4.2-5.4); White Blood Count 9.7 K/mm3 (4.4-11.0)
[2018-12-29 13:12] LABS: POSITIVE COUNT NO; POSITIVE DIFFERENTIAL NO; POSITIVE MORPHOLOGY NO
[2018-12-29 13:25] LABS: ALB/GLOB Ratio 1.1 RATIO (0.9-2.4); AST(SGOT) 16 U/L (15-37); Alanine Aminotransfer ALT/SGPT 14 U/L (13-56); Albumin, Serum 3.4 g/dL (3.2-5.0); Alkaline Phosphatase 84 U/L (45-117); Anion Gap 8 (5-15); BUN 24 mg/dL (7-18); BUN/Creat Ratio 36.6 RATIO (10-20); Calcium,Total 8.6 mg/dL (8.5-10.1); Chloride 110 mmol/L (98-107); Creatinine, Serum 0.66 mg/dL (0.55-1.02); EST Glomerular Filtration Rate 96 mL/min (>60); Est Glom Filt Rate - Afr Amer 116 mL/min (>60); Estimated Creatinine Clearance 51.81 ml/min; Globulin 3.1 g/dL (2.2-4.2); Glucose 109 mg/dL (74-106); Potassium 3.5 mmol/L (3.5-5.1); Protein, Total 6.5 g/dL (6.4-8.2); Sodium Level 142 mmol/L (136-145)
[2018-12-29 13:58] LABS: Alcohol, Blood (Medical)-Serum < 3.0 mg/dL; Valproic Acid (Depakene) Level 80 ug/mL (50-100)
--- NOTE | 2018-12-29 14:08 | CM.ED ---
SOCIAL WORK NOTE DISCUSSED PT'S STATUS AND CASE WITH DR. MATHIAS. CRISIS TO EVALUATE FOR INPATIENT PSYCH NEEDS ONCE MEDICALLY CLEARED. AMBER GARIBAY, BAR PILOT, COAL DELIVERER.
[2018-12-29 14:21] VITALS: BP 135/83; PULSE 74; RESP 15; O2SAT 93
[2018-12-29 14:41] LABS: Bacteria 0 SEEN /hpf (None Seen); Mucous, Urine 0 SEEN /hpf (<or=2+); Red Blood Cells-Urine 0 SEEN /hpf (0-5); White Blood Cells 0 SEEN /hpf (0-5)
[2018-12-29 14:42] LABS: Color, Urine Yellow (Yellow); Glucose, Dipstick Normal (Normal); Ketone-Dipstick Negative (Negative); Leukocyte Esterase-Dipstick Negative /ul (Negative); Nitrite-Dipstick Negative (Negative); Occult Blood-Urine Negative /ul (Negative); Protein-Dipstick Negative (Negative); Urine Bilirubin Dipstick Negative (Negative); Urine Clarity Clear (Clear); Urine Urobilinogen Normal (Normal)
[2018-12-29 14:54] LABS: Squamous Epithelial Cells - UA 0-5 SEEN /hpf (5-10)
--- NOTE | 2018-12-29 14:54 | NURSING ---
CALLED CRISIS. TALKED TO THA. SHE WILL LET THEM KNOW
[2018-12-29 14:59] LABS: Amphetamine Urine VISTA NEGATIVE (<1000 ng/mL); Barbiturate Urine VISTA NEGATIVE (< 200 ng/mL); Benzodiazepine Urine VISTA NEGATIVE (< 200 ng/mL); Cocaine Urine VISTA NEGATIVE (< 300 ng/mL); Ecstacy Urine VISTA NEGATIVE (< 500 ng/mL); Methadone Urine VISTA NEGATIVE (< 300 ng/mL); PCP Urine VISTA NEGATIVE (< 25 ng/mL); THC Urine VISTA NEGATIVE (< 50 ng/mL); Vista UDS pH Range 6
--- NOTE | 2018-12-29 15:00 | NURSING ---
ANGELO, CRISIS, CALLED. SHE WILL BE OVER SHORTLY
--- NOTE | 2018-12-29 15:27 | NURSING ---
ANGELO, CRISIS, HERE
[2018-12-29 16:01] VITALS: BP 158/107; PULSE 77; RESP 15; O2SAT 95
--- NOTE | 2018-12-29 17:00 | CM.ED ---
SOCIAL WORK NOTE ANGELO FROM CRISIS HERE AND ASSESSED PT. PT NEEDING INPATIENT PSYCH HOSPITALIZATION. ANGELO WORKING ON PLACEMENT AT THIS TIME. AMBER GARIBAY, CATHOLIC PRIEST, SISTER SUPERIOR.
[2018-12-29] MEDS: Nicotine Polacrilex 2 MG GUM PO (17:07)
--- NOTE | 2018-12-29 17:57 | ED.RN ---
after eval by crisis pt was determined to need hospitalization. pt was pink slipped by crisis. crisis and dr asked if pt was informed and they said no. I went to the room to inform the patient and found her full clothed with purse in hand. pt was then informed that she could not leave due to involuntary hold and that if she did the police would be notified and would return her to the department. after 30 minutes of discussion and de-escalation patient agreed to stay. pick slipped was verified in paperwork. meal ordered and nicotine gum given per dr order. pt is resting in bed with no current complaints and 1:1 sitter at bedside. pt was not suicidal or homicidal so belongings weren't removed. sitter was placed per dr order due to pt being a flight risk. lteicia ching rn [phone]
--- NOTE | 2018-12-29 18:22 | ED.RN ---
[facility] called. they had concerns about patient's justification for pink slip due to risk for self-harm related to patient's behavior or mentation. they requested additional documentation to justify involuntary hold and need for emergency hospitalization. crisis and dr informed. leticia ching rn. [phone]
[2018-12-29 19:11] VITALS: BP 158/84; PULSE 89; RESP 16; O2SAT 98
--- NOTE | 2018-12-29 20:49 | ED.RN ---
[facility]. WAITING TO HEAR FROM CRISIS TO SEE IF THIS PT HAS BEEN ACCEPTED TO [facility].
--- NOTE | 2018-12-29 20:59 | ED.RN ---
spoke with francois at this time, patient has been declined by [facility], referred to [facility] due to patients insurance they will not pay admission, because patient is not SI or HI. Patient being referred to [facility] now at this time. Spoke with Sarai. Doctor and primary nurse will be updated
[2018-12-30 00:49] VITALS: BP 150/91; PULSE 64; RESP 14; O2SAT 96
[2018-12-30 02:50] VITALS: BP 150/91; PULSE 63; RESP 14; O2SAT 98
[2018-12-30] MEDS: Nicotine Polacrilex 2 MG GUM PO (04:18)
[2018-12-30 04:43] VITALS: BP 150/91; PULSE 64; RESP 18; TEMP 36.4; O2SAT 98
[2018-12-30 06:09] VITALS: BP 160/90; PULSE 84; RESP 18; O2SAT 96
== END 2018-12-30 06:36 ==
LOC: ED 12:51
PROVIDERS: Emergency Provider Emergency Medicine; Family Provider Internal Medicine; PCP Internal Medicine
DX: R44.0 Auditory hallucinations (principal); R44.1 Visual hallucinations; F91.8 Other conduct disorders; J44.9 Chronic obstructive pulmonary disease, unspecified; F44.81 Dissociative identity disorder; F31.9 Bipolar disorder, unspecified; Z79.51 Long term (current) use of inhaled steroids; Z79.899 Other long term (current) drug therapy
CPT/HCPCS: 36415; 70450; 80053; 80164; 80307; 80320; 81001; 85025; 93005; 99284; G0480

== ENCOUNTER → 2019-02-11 | Outpatient (CLI) | payer MEDICARE, SELFPAY ==
[2019-02-04 13:07] VITALS: BMI 26.6
[2019-02-11 10:15] LABS: AST(SGOT) 21 U/L (15-37); Alanine Aminotransfer ALT/SGPT 26 U/L (13-56); Albumin, Serum 3.4 g/dL (3.2-5.0); Alkaline Phosphatase 123 U/L (45-117); Anion Gap 6 (5-15); BUN 23 mg/dL (7-18); BUN/Creat Ratio 32.6 RATIO (10-20); Calcium,Total 9.2 mg/dL (8.5-10.1); Chloride 108 mmol/L (98-107); EST Glomerular Filtration Rate 88 mL/min (>60); Est Glom Filt Rate - Afr Amer 107 mL/min (>60); Globulin 3.5 g/dL (2.2-4.2); Glucose 111 mg/dL (74-106); Potassium 4.7 mmol/L (3.5-5.1); Protein, Total 6.9 g/dL (6.4-8.2); Sodium Level 139 mmol/L (136-145)
[2019-02-12 05:06] LABS: HEPATITIS B SURFACE AG Negative (Negative); Hepatitis A AB, Total Positive (Negative); Hepatitis A IgM Antibody Negative (Negative); Hepatitis B Core AB IgM Negative (Negative); Hepatitis B Core Ab Total Negative (Negative); Hepatitis C Ab <0.1 s/co ratio (0.0-0.9)
[2019-02-12 15:10] LABS: Hep B Surface Antibodies Non Reactive (.)
== END | disposition home or self-care (01) ==
PROVIDERS: Family Provider Internal Medicine; PCP Internal Medicine
DX: K75.9 Inflammatory liver disease, unspecified (principal); R10.13 Epigastric pain
CPT/HCPCS: 36415; 80053; 86704; 86705; 86706; 86708; 86709; 86803; 87340

== ENCOUNTER 2019-02-14 13:54 | Outpatient (RCR) | payer MEDICARE, SELFPAY ==
[2018-10-26 15:06] VITALS: BMI 31.4
[2019-02-04 13:07] VITALS: BMI 26.6
== END 2019-02-15 23:59 ==
LOC: NS 13:54
PROVIDERS: Family Provider Internal Medicine; PCP Internal Medicine; Visit Provider Nurse Practitioner Family
DX: E66.9 Obesity, unspecified (principal); Z68.32 Body mass index [BMI] 32.0-32.9, adult; Z71.3 Dietary counseling and surveillance
CPT/HCPCS: 97803

== ENCOUNTER 2019-03-01 10:24 | Emergency (ER) | payer MEDICARE, SELFPAY ==
[2019-02-04 13:07] VITALS: BMI 26.6
[2019-03-01 10:24] VITALS: BP 137/91; PULSE 86; RESP 16; TEMP 36.7; O2SAT 94; BMI 29.2
--- NOTE | 2019-03-01 10:55 | ED.VISSUMM ---
- ER Visit Summary Date of Service: 03/01/19 Chief Complaint: Drooling History of Present Illness: The patient is a 68 F history of seizure disorder but states she has not had a seizure for more than 20 years. Also history of skin cancer and bipolar. States last 2 to 3 weeks she has intermittent drooling. Denies any prior history. Denies any headaches or head trauma. Denies any trouble using her arms or legs. No visual change. No slurred speech. No facial weakness or numbness. Physical Examination: Older female no acute distress. Initial blood pressure 1 3791. Vital signs otherwise stable and afebrile. HEENT exam is unremarkable. No facial droop. Pupils round reactive light. Neck is nontender. No lymphadenopathy. Lungs clear to auscultation bilaterally. Heart regular rhythm no murmur. Abdomen is soft and nontender. Patient is moving all 4 extremities. There are neurovascular intact. She has normal lab asst strength bilaterally. Normal dorsi plantar flexion. Fingertip to nose and [id number] within normal limits. She has no facial droop at this time. No drooling at this time. Tongue is midline. Pupils are round reactive light. Extraocular motions are intact. She is able to get up off the bed walk to the door without any difficulty. No ataxia. Test Results: None Emergency Department Course and Treatment: She has a completely normal exam at this time and a normal neurologic exam she has no drooling or facial droop nor any speech problems. Her NIH score is 0. Treatment Plan: Follow-up with her primary care physician. Disposition: Discharge Impression: Transient drooling resolved History of bipolar disorder History of seizure disorder This note was generated with [employer] dictation software. It may contain incorrect words, spelling, and punctuation that were not noted in review of the chart prior to signing ED Disposition - Plan for ED Patient: Referrals: Esperanza Baird MD [Primary Care Provider] -
--- NOTE | 2019-03-01 10:58 | ED.DCSUM_ITS ---
- ER Visit Summary Date of Service: 03/01/19 Chief Complaint: Drooling History of Present Illness: The patient is a 68 F history of seizure disorder but states she has not had a seizure for more than 20 years. Also history of skin cancer and bipolar. States last 2 to 3 weeks she has intermittent drooling. Denies any prior history. Denies any headaches or head trauma. Denies any trouble using her arms or legs. No visual change. No slurred speech. No facial weakness or numbness. Physical Examination: Older female no acute distress. Initial blood pressure 1 3791. Vital signs otherwise stable and afebrile. HEENT exam is unremarkable. No facial droop. Pupils round reactive light. Neck is nontender. No lymphadenopathy. Lungs clear to auscultation bilaterally. Heart regular rhythm no murmur. Abdomen is soft and nontender. Patient is moving all 4 extremities. There are neurovascular intact. She has normal table games shift manager strength bilaterally. Normal dorsi plantar flexion. Fingertip to nose and [id number] within normal limits. She has no facial droop at this time. No drooling at this time. Tongue is midline. Pupils are round reactive light. Extraocular motions are intact. She is able to get up off the bed walk to the door without any difficulty. No ataxia. Test Results: None Emergency Department Course and Treatment: She has a completely normal exam at this time and a normal neurologic exam she has no drooling or facial droop nor any speech problems. Her NIH score is 0. Treatment Plan: Follow-up with her primary care physician. Disposition: Discharge Impression: Transient drooling resolved History of bipolar disorder History of seizure disorder This note was generated with [employer] dictation software. It may contain incorrect words, spelling, and punctuation that were not noted in review of the chart prior to signing ED Disposition - Plan for ED Patient: Referrals: Esperanza Baird MD [Primary Care Provider] -
--- NOTE | 2019-03-01 10:58 | ED.DEP ---
ED Disposition - Plan for ED Patient: Disposition: Home or Assisted Living Instructions: ED Weakness [facility] Referrals: Esperanza Baird MD [Primary Care Provider] - 1 Week if not improving Additional Instructions: Have a normal exam today. Call and follow-up with your primary care physician.
== END 2019-03-01 11:14 | disposition home or self-care (01) ==
PROVIDERS: Emergency Provider Emergency Medicine; Family Provider Internal Medicine; PCP Internal Medicine
DX: K11.7 Disturbances of salivary secretion (principal); F31.9 Bipolar disorder, unspecified; G40.909 Epilepsy, unspecified, not intractable, without status epilepticus; Z79.899 Other long term (current) drug therapy; Z72.0 Tobacco use
CPT/HCPCS: 99282

== ENCOUNTER 2019-03-07 14:57 | Outpatient (RCR) | payer MEDICARE, SELFPAY ==
[2019-02-04 13:07] VITALS: BMI 26.6
[2019-03-03 15:07] VITALS: BMI 29.2
== END 2019-03-07 23:59 | disposition home or self-care (01) ==
LOC: NS 14:57
PROVIDERS: Family Provider Internal Medicine; PCP Internal Medicine; Visit Provider Nurse Practitioner Family
DX: E66.9 Obesity, unspecified (principal); Z68.32 Body mass index [BMI] 32.0-32.9, adult; Z71.3 Dietary counseling and surveillance
CPT/HCPCS: 97803

== ENCOUNTER 2019-03-08 09:50 | Day surgery (SDC) | payer MEDICARE, SELFPAY ==
--- NOTE | 2019-03-03 04:00 | HP_ITS ---
Intake Vital Signs 03/03/19 Body Mass Index (BMI) 29.2 03/03/19 Height 5 ft 2 in 03/03/19 Weight: 165 lb 03/03/19 Body Mass Index (BMI) 30.2 03/03/19 Blood Pressure 116/76 03/03/19 Blood Pressure Location Rt brachial 03/03/19 Blood Pressure Position Sitting 03/03/19 Respiratory Rate 16 Intake Visit Reasons: cramping, abdominal pain, pt requesting egd Chief Complaint: health concerns Steel Plate Printer Required: No Is patient in pain?: Yes (abdomen) Pain scale (1-10): 7 Allergies iloperidone [From Fanapt] Allergy (Verified 03/03/19 15:07) Other lurasidone [From Latuda] Allergy (Verified 03/03/19 15:07) Other paliperidone [From Invega] Allergy (Verified 03/03/19 15:07) increased psychiatric symptoms trazodone Allergy (Verified 03/03/19 15:07) Other theophylline Adverse Reaction (Verified 03/03/19 15:07) Other SLOBID Adverse Reaction (Uncoded 03/03/19 15:07) Other Medications Buprenorphine HCl/Naloxone HCl [Suboxone 8 mg-2 mg Sl Film] 2 ea SL DAILY 12/24/17 [History Confirmed 03/03/19] ferrous sulfate 325 mg (65 mg iron) tablet 325 mg PO DAILY #90 tab 07/14/18 [Rx Confirmed 03/03/19] miconazole nitrate 2 % topical powder 1 applic TOPICAL BID #71 g 07/14/18 [Rx Confirmed 03/03/19] albuterol sulfate HFA 90 mcg/actuation aerosol inhaler 1 puff INHALATION Q4H PRN PRN #8.5 g 09/07/18 [Rx Confirmed 03/03/19] calcium carbonate 600 mg calcium (1,500 mg) tablet 600 mg PO BID #60 tab 11/29/18 [Rx Confirmed 03/03/19] pravastatin 40 mg tablet 40 mg PO QHS #60 tab 11/29/18 [Rx Confirmed 03/03/19] dicyclomine 10 mg capsule 20 mg PO 4X/DAY #30 cap 12/17/18 [Rx Confirmed 03/03/19] aripiprazole 10 mg tablet 10 mg PO QHS tab 01/17/19 [History Confirmed 03/03/19] cholecalciferol (vitamin D3) 5,000 unit capsule 5,000 unit PO DAILY #30 cap 01/17/19 [Rx Confirmed 03/03/19] divalproex 500 mg tablet,delayed release 500 mg PO TID 01/17/19 [History Confirmed 03/03/19] melatonin 3 mg tablet 3 mg PO QHS tab 01/17/19 [History Confirmed 03/03/19] omeprazole 40 mg capsule,delayed release 40 mg PO DAILY #60 cap 01/17/19 [Rx Confirmed 03/03/19] metoprolol tartrate 50 mg tablet 50 mg PO BID #60 tab 01/19/19 [Rx Confirmed 03/03/19] lisinopril 40 mg tablet 40 mg PO DAILY #90 tab 02/11/19 [Rx Confirmed 03/03/19] sennosides 8.6 mg-docusate sodium 50 mg tablet 2 tab PO BID PRN #60 tab 02/17/19 [Rx Confirmed 03/03/19] sucralfate 1 gram tablet 1 g PO QACHS #120 tab 03/03/19 [Rx Confirmed 03/03/19] PFSH Medical History History of skin cancer (Resolved) Dissociative identity disorder (Chronic) COPD (chronic obstructive pulmonary disease) (Acute) History of UTI (Acute) Kidney failure (Acute) Multiple personalities (Chronic) Panic attacks (Chronic) H/O: hysterectomy (Inactive) Surgical History History of 3 sections (Acute) History of cholecystectomy (Acute) History of colonoscopy (Acute) History of hernia repair (Acute) H/O hernia repair (Inactive) History of (Inactive) Family History Brother Colon cancer Lung cancer Aunt Obesity Sister Obesity Mother Rheumatoid arthritis Father Alzheimer disease Brother Alzheimer disease Social History Smoking Status: Former smoker how long ago did patient quit smokin alcohol intake: never substance use type: does not use HPI HPI HPI: ALEXIA POWELL, is a 68 F who presents to the office today for HPI HPI Surgical H&P: Yes HPI: ALEXIA POWELL, is a 68 F who presents to the office today for epigastric pain. The patient reports that this is been going on for about 4 months. She says this is the pain similar to before she had her gallbladder out but it was gone for about 2 years now it is returned. She says it hurts when eating. She also notes that she has been taking 3-4 ibuprofen every day due to headaches. She is also been on omeprazole. She had her last colonoscopy last year ROS General General: Yes weight change and fatigue Musc Musculoskeletal: Yes back problems and arthritis Cardio Cardiovascular: Yes high blood pressure; no murmur, pacemaker, heart disease, atrial fibrillation, heart attack, heart stent, palpitations, shortness of breat with exertion or chest pain Psych Psychiatric: Yes depression and anxiety Resp Respiratory: Yes shortness of breath, Yes sleep apnea, No cough, Yes COPD, No asthma, No emphysema, No wheezing Gastro Gastrointestinal: Yes abdominal pain, No nausea or vomiting, No diarrhea, Yes constipation, No blood in stool, Yes acid reflux, No hemorrhoids, No ulcers, No gallbladder problem, No black,tarry stools Rigoberto Hematologic: No blood thinners, Yes blood disorders Exam Const General: cooperative Orientation: alert, oriented x3 Resp Effort & Inspection: normal respiratory effort Auscultation: clear to auscultation bilaterally Cardio Rate: regular rate Rhythm: regular rhythm Heart Sounds: no murmurs GI Inspection: non-distended Palpation: soft, nontender Assessment & Plan Problems 1. Epigastric pain R10.13 Plan Patient has been having epigastric pain for a few months. I explained that tobacco cessation and Carafate would be the next step. She should also have an EGD to rule out H. pylori or ulcer disease. I explained endoscopy in detail to the patient. I explained the risks including but not limited to stroke or heart attack with anesthesia, perforation of the GI tract, bleeding, infection. I explained that any of these could necessitate further emergency surgery. The patient understands and all questions were answered sufficiently. The patient wishes to proceed with procedure. Mario Vyas MD Pager: [facility] [address] [place] [address], [address] [place] [address] Office: Orders Orders: EGD Today R10.13 Medications New: sucralfate 1 g PO QACHS 120 tabs 0RF Coding Level of Care Code Off vis,est,level 3 Diagnoses Epigastric pain R10.13 03/03/19 1601 <Electronically signed by Mario Vyas MD> Date Mario Vyas MD I have re-examined the patient. There are no clinical changes since date of exam.
[2019-03-03 15:07] VITALS: BMI 29.2
--- NOTE | 2019-03-08 | GASB_PTH ---
PATIENT: ALEXIA POWELL LOC: EN U#:[id number] AGE/SX: 68/F ROOM: RE03/08/[address]: Dr. Mario Vyas MD : 1950 BED: DIS: 03/08/2019 SPEC #: [id number] RECD: 03/08/19 12:01 STATUS: LAMONT PANDA #: [id number] MAXIMINO: 03/08/19 00:[address]: Mario Vyas DEPT: SURGICAL PATHOLOGY RECD BY: Mingo Quezada ENTERED: 03/08/19 12:01 SP TYPE: Gastric Bx OTHR DR: Dr. Esperanza Baird MD Tissues: A - Gastric mucous membrane B - Gastric mucous membrane Procedures: Special Stain Group II Surgery Specimen Level IV Alcian Blue/PAS (control) HEADER OPERATION: EGD ([facility] [place]) PRE-OP DIAGNOSIS: Epigastric pain TISSUE SUBMITTED: A - Biopsy gastric antrum, H. pylori and path, B - Biopsy GE junction MICROSCOPIC DIAGNOSIS A. Gastric antrum, biopsy: Mild chronic gastritis. See comment. B. Gastroesophageal junction, biopsy: Mild chronic inflammation. No evidence of intestinal metaplasia. See comment. AM:theodore 03/09/19 COMMENT A. The results of immunohistochemistry for Helicobacter pylori will be reported separately ([id number]). B. Alcian blue/PAS stain with matched control supports the above diagnosis. MICROSCOPIC DESCRIPTION Slides are reviewed. GROSS DESCRIPTION A - Received in fixative is one container labeled with the patient's name and designated biopsy gastric antrum. The specimen consists of two irregular fragments of light muñoz soft tissue that in aggregate measure 0.2 x 0.2 x 0.1 cm. The specimen is totally submitted in one cassette. B - Received in fixative is one container labeled with the patient's name and designated biopsy GE junction. The specimen consists of one irregular fragment of light muñoz soft tissue that measures 0.2 x 0.1 x 0.1 cm. The specimen is totally submitted in one cassette. / CE:theodore 03/08/19 TC:3 CPT: 83322 x2, 88136
[2019-03-08 10:17] VITALS: BP 146/96; PULSE 777; RESP 18; TEMP 36.7; O2SAT 97; BMI 30.7
--- NOTE | 2019-03-08 10:25 | IMM_PTH ---
PATIENT: ALEXIA POWELL LOC: EN U#:[id number] AGE/SX: 68/F ROOM: RE03/08/[address]: Dr. Mario Vyas MD : 1950 BED: DIS: 03/08/2019 SPEC #: [id number] RECD: 03/09/19 08:09 STATUS: LAMONT REIndigo #: [id number] MAXIMINO: 03/08/19 10:[address]: Mario Vyas DEPT: IMMUNOHISTOCHEMISTRY RECD BY: Carmen Ndiaye ENTERED: 03/09/19 08:09 SP TYPE: IMMUNO OTHR DR: Dr. Esperanza Baird MD Tissues: A - Stomach, NOS Procedures: H Pylori (initial) PHYSICIAN & [place] [id number] SPECIMEN INFORMATION: Tissue Source: A - Gastric antrum biopsy Clinical Info: Epigastric pain Specimen Number: [id number] CPT code: 66555 METHODOLOGY: Deparaffinized sections of prefer/formalin-fixed tissue or PAP/DQ stained slides are incubated with monoclonal/polyclonal antibodies/oligonucleotide probes. Localization is made via biotin free immunoperoxidase method. Appropriate controls are performed and reacted as expected. Results on target cell population are indicated in the following table: RESULTS: ANTIBODY / CLONE RESULT Block A H Pylori (polyclonal) negative These tests were developed and their performance characteristics determined by [facility]. They may not have been cleared or approved by the U.S. Food and Drug Administration. The FDA has determined that such clearance or approval is not necessary. INTERPRETATION: A. Gastric antrum, biopsy: Negative for Helicobacter pylori organisms. AM:theodore 03/09/19
--- NOTE | 2019-03-08 10:47 | OP.ENDO_ITS ---
03/08/2019 Esperanza Baird MD [address] [place] [address] [place] [address] Re : Upper GI endoscopy procedure for Jacklyn Valentin Dear Dr. Baird This procedure was performed on Friday, March 08, 2019. My impressions and recommendations are as follows: Impressions : - Gastritis. Biopsied. - Esophageal mucosal changes suspicious for Mata's esophagus. Biopsied. Recommendations : - Discharge patient to home. - Resume previous diet. - Continue present medications. - Await pathology results. My findings are described in the full procedure note, which is enclosed. If I can be of further assistance, please feel free to contact me at Doctor phone number(s): , Work: . Sincerely, Mario Vyas MD 03/08/2019 10:46:48 AM This report has been signed electronically.
[2019-03-08 10:48] VITALS: BP 123/82; BP 144/96; PULSE 80; RESP 16; TEMP 36.3; O2SAT 95
[2019-03-08 10:55] VITALS: BP 123/90; BP 144/96; PULSE 82; RESP 16; O2SAT 94
[2019-03-08 11:00] VITALS: BP 124/92; BP 144/96; PULSE 77; RESP 16; O2SAT 94
[2019-03-08 11:04] VITALS: BP 124/92; BP 144/96; PULSE 69; RESP 16; TEMP 36.4; O2SAT 92
[2019-03-08 11:45] VITALS: BP 144/96
== END 2019-03-08 11:45 | disposition home or self-care (01) ==
LOC: EN 09:51 → AC 09:52
PROVIDERS: Family Provider Internal Medicine; PCP Internal Medicine; Referring Provider Internal Medicine; Visit Provider Surgery
PROC: 0DJ08ZZ Inspection of Upper Intestinal Tract, Via Natural or Artificial Opening Endoscopic (ICD-10-PCS; CPT 43235; principal; 2019-03-08 10:20)
DX: K29.70 Gastritis, unspecified, without bleeding (principal); J44.9 Chronic obstructive pulmonary disease, unspecified; F44.81 Dissociative identity disorder; F41.0 Panic disorder [episodic paroxysmal anxiety]; K21.9 Gastro-esophageal reflux disease without esophagitis; D64.9 Anemia, unspecified; B19.20 Unspecified viral hepatitis C without hepatic coma; F31.9 Bipolar disorder, unspecified; F41.9 Anxiety disorder, unspecified; I10 Essential (primary) hypertension; J45.909 Unspecified asthma, uncomplicated; Z87.440 Personal history of urinary (tract) infections; Z87.891 Personal history of nicotine dependence; Z85.828 Personal history of other malignant neoplasm of skin; Z79.51 Long term (current) use of inhaled steroids; Z79.899 Other long term (current) drug therapy; D47.3 Essential (hemorrhagic) thrombocythemia
CPT/HCPCS: 43239; 36415; 80053; 85025; 88305; 88313; 88342; J7120

== ENCOUNTER 2019-03-18 06:07 | Day surgery (SDC) | payer MEDICARE, SELFPAY ==
[2018-12-15 08:24] VITALS: BMI 31.4
--- NOTE | 2019-03-03 04:00 | HP_ITS ---
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 Is patient in pain?: Yes (abdomen) Pain scale (1-10): 7 Allergies iloperidone [From Fanapt] Allergy (Verified 03/03/19 15:07) Other lurasidone [From Latuda] Allergy (Verified 03/03/19 15:07) Other paliperidone [From Invega] Allergy (Verified 03/03/19 15:07) increased psychiatric symptoms trazodone Allergy (Verified 03/03/19 15:07) Other theophylline Adverse Reaction (Verified 03/03/19 15:07) Other SLOBID Adverse Reaction (Uncoded 03/03/19 15:07) Other Medications Buprenorphine HCl/Naloxone HCl [Suboxone 8 mg-2 mg Sl Film] 2 ea SL DAILY 12/24/17 [History Confirmed 03/03/19] ferrous sulfate 325 mg (65 mg iron) tablet 325 mg PO DAILY #90 tab 07/14/18 [Rx Confirmed 03/03/19] miconazole nitrate 2 % topical powder 1 applic TOPICAL BID #71 g 07/14/18 [Rx Confirmed 03/03/19] albuterol sulfate HFA 90 mcg/actuation aerosol inhaler 1 puff INHALATION Q4H PRN PRN #8.5 g 09/07/18 [Rx Confirmed 03/03/19] calcium carbonate 600 mg calcium (1,500 mg) tablet 600 mg PO BID #60 tab 11/29/18 [Rx Confirmed 03/03/19] pravastatin 40 mg tablet 40 mg PO QHS #60 tab 11/29/18 [Rx Confirmed 03/03/19] dicyclomine 10 mg capsule 20 mg PO 4X/DAY #30 cap 12/17/18 [Rx Confirmed 03/03/19] aripiprazole 10 mg tablet 10 mg PO QHS tab 01/17/19 [History Confirmed 03/03/19] cholecalciferol (vitamin D3) 5,000 unit capsule 5,000 unit PO DAILY #30 cap 01/17/19 [Rx Confirmed 03/03/19] divalproex 500 mg tablet,delayed release 500 mg PO TID 01/17/19 [History Confirmed 03/03/19] melatonin 3 mg tablet 3 mg PO QHS tab 01/17/19 [History Confirmed 03/03/19] omeprazole 40 mg capsule,delayed release 40 mg PO DAILY #60 cap 01/17/19 [Rx Confirmed 03/03/19] metoprolol tartrate 50 mg tablet 50 mg PO BID #60 tab 01/19/19 [Rx Confirmed 03/03/19] lisinopril 40 mg tablet 40 mg PO DAILY #90 tab 02/11/19 [Rx Confirmed 03/03/19] sennosides 8.6 mg-docusate sodium 50 mg tablet 2 tab PO BID PRN #60 tab 02/17/19 [Rx Confirmed 03/03/19] sucralfate 1 gram tablet 1 g PO QACHS #120 tab 03/03/19 [Rx Confirmed 03/03/19] PFSH Medical History History of skin cancer (Resolved) Dissociative identity disorder (Chronic) COPD (chronic obstructive pulmonary disease) (Acute) History of UTI (Acute) Kidney failure (Acute) Multiple personalities (Chronic) Panic attacks (Chronic) H/O: hysterectomy (Inactive) Surgical History History of 3 sections (Acute) History of cholecystectomy (Acute) History of colonoscopy (Acute) History of hernia repair (Acute) H/O hernia repair (Inactive) History of (Inactive) Family History Brother Colon cancer Lung cancer Aunt Obesity Sister Obesity Mother Rheumatoid arthritis Father Alzheimer disease Brother Alzheimer disease Social History Smoking Status: Former smoker how long ago did patient quit smokin alcohol intake: never substance use type: does not use HPI HPI HPI: ALEXIA POWELL, is a 68 F who presents to the office today for HPI HPI Surgical H&P: Yes HPI: ALEXIA POWELL, is a 68 F who presents to the office today for epigastric pain. The patient reports that this is been going on for about 4 months. She says this is the pain similar to before she had her gallbladder out but it was gone for about 2 years now it is returned. She says it hurts when eating. She also notes that she has been taking 3-4 ibuprofen every day due to headaches. She is also been on omeprazole. She had her last colonoscopy last year ROS General General: Yes weight change and fatigue Musc Musculoskeletal: Yes back problems and arthritis Cardio Cardiovascular: Yes high blood pressure; no murmur, pacemaker, heart disease, atrial fibrillation, heart attack, heart stent, palpitations, shortness of breat with exertion or chest pain Psych Psychiatric: Yes depression and anxiety Resp Respiratory: Yes shortness of breath, Yes sleep apnea, No cough, Yes COPD, No asthma, No emphysema, No wheezing Gastro Gastrointestinal: Yes abdominal pain, No nausea or vomiting, No diarrhea, Yes constipation, No blood in stool, Yes acid reflux, No hemorrhoids, No ulcers, No gallbladder problem, No black,tarry stools Rigoberto Hematologic: No blood thinners, Yes blood disorders Exam Const General: cooperative Orientation: alert, oriented x3 Resp Effort & Inspection: normal respiratory effort Auscultation: clear to auscultation bilaterally Cardio Rate: regular rate Rhythm: regular rhythm Heart Sounds: no murmurs GI Inspection: non-distended Palpation: soft, nontender Assessment & Plan Problems 1. Epigastric pain R10.13 Plan Patient has been having epigastric pain for a few months. I explained that tobacco cessation and Carafate would be the next step. She should also have an EGD to rule out H. pylori or ulcer disease. I explained endoscopy in detail to the patient. I explained the risks including but not limited to stroke or heart attack with anesthesia, perforation of the GI tract, bleeding, infection. I explained that any of these could necessitate further emergency surgery. The patient understands and all questions were answered sufficiently. The patient wishes to proceed with procedure. Mario Vyas MD Pager: [facility] [address] [place] [address], [address] [place] [address] Office: Orders Orders: EGD Today R10.13 Medications New: sucralfate 1 g PO QACHS 120 tabs 0RF Coding Level of Care Code Off vis,est,level 3 Diagnoses Epigastric pain R10.13 03/03/19 1601 <Electronically signed by Mario Vyas MD> Date Mario Vyas MD
[2019-03-16 14:34] VITALS: BMI 31.8
--- NOTE | 2019-03-18 | LES_PTH ---
PATIENT: ALEXIA POWELL LOC: [facility] [place] U#:[id number] AGE/SX: 68/F ROOM: RE03/18/[address]: Dr. Isaías Davis MD : 1950 BED: DIS: 03/18/2019 SPEC #: [id number] RECD: 03/18/19 08:23 STATUS: LAMONT PANDA #: [id number] MAXIMINO: 03/18/19 00:[address]: Isaías Davis DEPT: SURGICAL PATHOLOGY RECD BY: Carmen Ndiaye ENTERED: 03/18/19 10:24 SP TYPE: Lesion OTHR DR: Dr. Esperanza Baird MD Tissues: A - Skin of face, NOS B - Skin of neck, NOS Procedures: Frozen Section (charge) Surgery Specimen Level IV HEADER OPERATION: Excision lesion anterior neck, inferior chin, frozen section PRE-OP DIAGNOSIS: 5 mm lesion inferior chin; 5 mm lesion anterior neck TISSUE SUBMITTED: A - Inferior chin lesion sent for FS at 0817, B - Anterior neck lesion, suture at 12 o'clock FROZEN SECTION DIAGNOSIS A. Inferior chin lesion, biopsy: Intradermal nevus. AM:theodore 03/18/19 MICROSCOPIC DIAGNOSIS A. Inferior chin lesion, biopsy: Intradermal nevus. B. Anterior neck lesion, biopsy: Consistent with neurofibroma. See comment. AM:theodore 03/22/19 COMMENT B. Immunohistochemistry ([id number]) supports the above diagnosis. Case has been reviewed in consultation with Dr. Hidalgo who concurs with the above diagnosis. IDC:SJ MICROSCOPIC DESCRIPTION Slides are reviewed. GROSS DESCRIPTION A - Received fresh for frozen section consultation labeled with the patient's name is a specimen designated inferior chin lesion. The specimen consists of a discoid fragment of excised skin measuring 0.5 x 0.4 x 0.1 cm. The specimen is inked, bisected and submitted in its entirety for frozen section consultation in one block. / AM:theodore 03/18/19 B - Received in fixative is one container labeled with the patient's name and designated anterior neck lesion. The specimen consists of an irregular fragment of excised muñoz skin measuring 0.7 x 0.5 cm and containing an exophytic polypoid lesion measuring 0.3 cm. The margin with suture is inked in black ink. The opposite margin is inked in blue ink. The specimen is trisected and totally submitted in one cassette. / AM:theodore 03/21/19 TC:5 CPT: 45808 x2, 87709
--- NOTE | 2019-03-18 | IMM_PTH ---
PATIENT: ALEXIA POWELL LOC: [facility] – [place] U#:[id number] AGE/SX: 68/F ROOM: RE03/18/[address]: Dr. Isaías Davis MD : 1950 BED: DIS: 03/18/2019 SPEC #: [id number] RECD: 03/22/19 10:22 STATUS: LAMONT REQ #: [id number] MAXIMINO: 03/18/19 00:[address]: Isaías Davis DEPT: IMMUNOHISTOCHEMISTRY RECD BY: Carmen Ndiaye ENTERED: 03/22/19 10:24 SP TYPE: IMMUNO OTHR DR: Dr. Esperanza Baird MD Tissues: B - Skin of neck, NOS Procedures: Synapto (add) SMA (add) CD34 (add) CD56 (add) NEUROFIL (add) P40 (add) Vimentin (initial) NSE (add) S-100 (add) PHYSICIAN & INSTITUTION [place] [id number] SPECIMEN INFORMATION: Tissue Source: B - Anterior neck lesion, excision Clinical Info: Lesion anterior neck Specimen Number: [id number] CPT code: 36924, 43345 x8 METHODOLOGY: Deparaffinized sections of prefer/formalin-fixed tissue or PAP/DQ stained slides are incubated with monoclonal/polyclonal antibodies/oligonucleotide probes. Localization is made via biotin free immunoperoxidase method. Appropriate controls are performed and reacted as expected. Results on target cell population are indicated in the following table: RESULTS: ANTIBODY / CLONE RESULT Block B Actin (1A4) negative P40 (BC28) negative Vimentin (V9) positive S-100 (4C4.9) positive CD34 (QBEnd-10) positive CD56 (123C3.D5) negative Synapto (polyclonal) negative Neurofil (2F11) negative NSE Neuron Specific Enolase negative These tests were developed and their performance characteristics determined by [facility]. They may not have been cleared or approved by the U.S. Food and Drug Administration. The FDA has determined that such clearance or approval is not necessary. INTERPRETATION: B. Anterior neck lesion, excision: Consistent with neurofibroma. AM:hteodore 03/23/19
--- NOTE | 2019-03-18 00:01 | PCM.HP.BLA ---
History and Physical Date of Admission: 03/18/19 HISTORY OF PRESENT ILLNESS 68 year old woman presents for evaluation for TBSE. She has concerns about lesions on her inferior chin and anterior neck that have increased in size over the last several months and have become more raised in configuration and have developed irregular borders. There is also some hair growth in the lesions. She denies ulceration. She denies any pain in the lesions. She denies fever. She denies trauma. She denies bleeding. She recently had excision of skin cancers in 08/31/18 where she underwent excision 11 mm basal cell carcinoma right medial forehead with lateral rectangular horizontal advancement skin flap reconstruction (6 cm2) and excision 6 mm basal cell carcinoma right upper lip by nasolabial fold and excision 5 mm lesion right supramedial cheek with perialar crescenteric advancement skin flap reconstruction (10.5 cm2) and excision 4 mm pigmented lesion right yazidi by hairline with 1.5 cm layered closure and intradermal excision 5 mm intradermal nevus right lateral cheek. Those incisions have since healed with good contouring. Pathology showed the right medial forehead lesion was a basal cell carcinoma and the right upper lip by nasolabial fold lesion was a basal cell carcinoma and the right supramedial cheek lesion was a basal cell carcinoma and the right yazidi by hairline lesion was a capillary hemangioma and the right lateral cheek lesion was an intradermal nevus. PAST MEDICAL HISTORY skin cancer Dissociative identity disorder COPD (chronic obstructive pulmonary disease) History of UTI Kidney failure Multiple personalities Panic attacks PAST SURGICAL HISTORY 3 sections cholecystectomy colonoscopy hernia repair hysterectomy Excision 11 mm basal cell carcinoma right medial forehead with lateral rectangular horizontal advancement skin flap reconstruction (6 cm2) and excision 6 mm basal cell carcinoma right upper lip by nasolabial fold and excision 5 mm lesion right supramedial cheek with perialar crescenteric advancement skin flap reconstruction (10.5 cm2) and excision 4 mm pigmented lesion right yazidi by hairline with 1.5 cm layered closure and intradermal excision 5 mm intradermal nevus right lateral cheek - 08/31/18 ALLERGIES iloperidone [From Fanapt] lurasidone [From Latuda] paliperidone [From Invega] trazodone theophylline SLOBID MEDICATIONS Buprenorphine HCl/Naloxone HCl [Suboxone 8 mg-2 mg Sl Film] ferrous sulfate miconazole nitrate albuterol sulfate HFA dextromethorphan-guaifenesin ER lisinopril famotidine calcium carbonate divalproex ER metoprolol tartrate pravastatin sennosides 8.6 mg-docusate sodium dicyclomine FAMILY HISTORY Brother - Colon cancer, Lung cancer Aunt - Obesity Sister - Obesity Mother - Rheumatoid arthritis Father - Alzheimer disease Brother - Alzheimer disease SOCIAL HISTORY Smoking Status: Former smoker how long ago did patient quit smokin alcohol intake: never substance use type: does not use REVIEW OF SYSTEMS General - Denies fever, fatigue, and weight loss. Is on Suboxone therapy. Eyes - Denies cataracts and glaucoma. ENT - Denies nasal congestion and sore throat. Endocrine - Denies excessive thirst and urination. Skin - Has personal history of skin cancer. Has enlarging lesions inferior chin and anterior neck. Musculoskeletal - Denies joint pain, joint stiffness, weakness of muscles and joints, back pain, and arthritis. Neuro - Denies headaches. Cardiovascular - Denies chest pain, fatigue, and shortness of breath with exertion. Psych - Has depression. Has bipolar disorder. Has panic attacks. Has dissociative identity disorder with multiple personalities. Respiratory - Denies chronic cough and shortness of breath. Patient is a former smoker. Gastrointestinal - Denies nausea, vomiting, diarrhea, and constipation. Hematologic - Denies abnormal bruising and bleeding. Genitourinary - Denies hematuria and urinary frequency. Has UTI. History of kidney failure. PHYSICAL EXAMINATION General - Alert and Oriented HEENT - PERRL. EOMI. Throat is clear. On the right medial forehead is a healed incision from previous excision of basal cell carcinoma. On the right upper lip by nasolabial fold and right supramedial cheek is a healed incision from previous excision of basal cell carcinoma. On the right yazidi by hairline is a healed incision from previous excision of a hemangioma. On the right lateral cheek is a healed scar from previous excision of an intradermal nevus. On the inferior chin is a 5 mm lesion that is nodular and raised in configuration. Has irregular borders. No ulceration. Lesion is nontender. Has some hair growth. Neck - Supple and nontender. No cervical adenopathy. On the anterior neck is a 5 mm lesion that is nodular and raised in configuration. Has irregular borders. No ulceration. Lesion is nontender. Has some hair growth. Lungs - Clear to auscultation. Heart - Regular rate and rhythm. Abdomen - Soft and nondistended. Extremities - FROM. No axillary adenopathy. Radial pulses are palpable. No suspicious lesions noted. Neuro - CN II-XII grossly intact. Psych - Normal mood and affect. ASSESSMENT 1. 5 mm lesion inferior chin. 2. 5 mm lesion anterior neck. 3. Personal history of skin cancer. 4. Former smoker. PLAN Recommend excision of these lesions on her inferior chin and anterior neck and send them to Pathology for analysis to rule out carcinoma. Reconstruction may be with local skin flaps. Surgery will be done on an outpatient basis under local anesthesia and IV sedation. Patient was informed of the risks and complications of the procedure including alternatives to surgery. These were discussed with the patient personally. Patient voices understanding and wishes to proceed. Some of the risks and complications were included in a form from the [employer].
--- NOTE | 2019-03-18 00:06 | HP.PCM_ITS ---
History and Physical Date of Admission: 03/18/19 HISTORY OF PRESENT ILLNESS 68 year old woman presents for evaluation for TBSE. She has concerns about lesions on her inferior chin and anterior neck that have increased in size over the last several months and have become more raised in configuration and have developed irregular borders. There is also some hair growth in the lesions. She denies ulceration. She denies any pain in the lesions. She denies fever. She denies trauma. She denies bleeding. She recently had excision of skin cancers in 08/31/18 where she underwent excision 11 mm basal cell carcinoma right medial forehead with lateral rectangular horizontal advancement skin flap reconstruction (6 cm2) and excision 6 mm basal cell carcinoma right upper lip by nasolabial fold and excision 5 mm lesion right supramedial cheek with perialar crescenteric advancement skin flap reconstruction (10.5 cm2) and excision 4 mm pigmented lesion right sikh by hairline with 1.5 cm layered closure and intradermal excision 5 mm intradermal nevus right lateral cheek. Those incisions have since healed with good contouring. Pathology showed the right medial forehead lesion was a basal cell carcinoma and the right upper lip by nasolabial fold lesion was a basal cell carcinoma and the right supramedial kadie k lesion was a basal cell carcinoma and the right sikh by hairline lesion was a capillary hemangioma and the right lateral cheek lesion was an intradermal nevus. PAST MEDICAL HISTORY skin cancer Dissociative identity disorder COPD (chronic obstructive pulmonary disease) History of UTI Kidney failure Multiple personalities Panic attacks PAST SURGICAL HISTORY 3 sections cholecystectomy colonoscopy hernia repair hysterectomy Excision 11 mm basal cell carcinoma right medial forehead with lateral rectangular horizontal advancement skin flap reconstruction (6 cm2) and excision 6 mm basal cell carcinoma right upper lip by nasolabial fold and excision 5 mm lesion right supramedial cheek with perialar crescenteric advancement skin flap reconstruction (10.5 cm2) and excision 4 mm pigmented lesion right sikh by hairline with 1.5 cm layered closure and intradermal excision 5 mm intradermal nevus right lateral cheek - 08/31/18 ALLERGIES iloperidone [From Fanapt] lurasidone [From Latuda] paliperidone [From Invega] trazodone theophylline SLOBID MEDICATIONS Buprenorphine HCl/Naloxone HCl [Suboxone 8 mg-2 mg Sl Film] ferrous sulfate miconazole nitrate albuterol sulfate HFA dextromethorphan-guaifenesin ER lisinopril famotidine calcium carbonate divalproex ER metoprolol tartrate pravastatin sennosides 8.6 mg-docusate sodium dicyclomine FAMILY HISTORY Brother - Colon cancer, Lung cancer Aunt - Obesity Sister - Obesity Mother - Rheumatoid arthritis Father - Alzheimer disease Brother - Alzheimer disease SOCIAL HISTORY Smoking Status: Former smoker how long ago did patient quit smokin alcohol intake: never substance use type: does not use REVIEW OF SYSTEMS General - Denies fever, fatigue, and weight loss. Is on Suboxone therapy. Eyes - Denies cataracts and glaucoma. ENT - Denies nasal congestion and sore throat. Endocrine - Denies excessive thirst and urination. Skin - Has personal history of skin cancer. Has enlarging lesions inferior chin and anterior neck. Musculoskeletal - Denies joint pain, joint stiffness, weakness of muscles and joints, back pain, and arthritis. Neuro - Denies headaches. Cardiovascular - Denies chest pain, fatigue, and shortness of breath with exertion. Psych - Has depression. Has bipolar disorder. Has panic attacks. Has dissociative identity disorder with multiple personalities. Respiratory - Denies chronic cough and shortness of breath. Patient is a former smoker. Gastrointestinal - Denies nausea, vomiting, diarrhea, and constipation. Hematologic - Denies abnormal bruising and bleeding. Genitourinary - Denies hematuria and urinary frequency. Has UTI. History of kidney failure. PHYSICAL EXAMINATION General - Alert and Oriented HEENT - PERRL. EOMI. Throat is clear. On the right medial forehead is a healed incision from previous excision of basal cell carcinoma. On the right upper lip by nasolabial fold and right supramedial cheek is a healed incision from previous excision of basal cell carcinoma. On the right sikh by hairline is a healed incision from previous excision of a hemangioma. On the right lateral cheek is a healed scar from previous excision of an intradermal nevus. On the inferior chin is a 5 mm lesion that is nodular and raised in configuration. Has irregular borders. No ulceration. Lesion is nontender. Has some hair growth. Neck - Supple and nontender. No cervical adenopathy. On the anterior neck is a 5 mm lesion that is nodular and raised in configuration. Has irregular borders. No ulceration. Lesion is nontender. Has some hair growth. Lungs - Clear to auscultation. Heart - Regular rate and rhythm. Abdomen - Soft and nondistended. Extremities - FROM. No axillary adenopathy. Radial pulses are palpable. No suspicious lesions noted. Neuro - CN II-XII grossly intact. Psych - Normal mood and affect. ASSESSMENT 1. 5 mm lesion inferior chin. 2. 5 mm lesion anterior neck. 3. Personal history of skin cancer. 4. Former smoker. PLAN Recommend excision of these lesions on her inferior chin and anterior neck and send them to Pathology for analysis to rule out carcinoma. Reconstruction may be with local skin flaps. Surgery will be done on an outpatient basis under local anesthesia and IV sedation. Patient was informed of the risks and complications of the procedure including alternatives to surgery. These were discussed with the patient personally. Patient voices understanding and wishes to proceed. Some of the risks and complications were included in a form from the [employer].
[2019-03-18 06:59] VITALS: BP 163/83; PULSE 84; RESP 18; TEMP 36.6; O2SAT 93; BMI 31.8
[2019-03-18] MEDS: Silver Nitrate (BKC) 1 EACH (08:40)
[2019-03-18] MEDS: Mupirocin Ointment 22gm Tube 1 APPLIC (08:43)
--- NOTE | 2019-03-18 08:46 | OP.PCM_ITS ---
Report of Operation Date of Procedure: 03/18/19 Pre-Operative Diagnosis: 1. 5 mm lesion inferior chin. 2. 5 mm lesion a nterior neck. 3. Personal history of skin cancer. 4. Former smoker. Post-Operative Diagnosis: 1. 5 mm intradermal nevus inferior chin. 2. 5 mm lesion anterior neck. 3. Personal history of skin cancer. 4. Former smoker. Surgery/Procedure Performed:: 1. Intradermal excision 5 mm intradermal nevus inferior chin. 2. Excison 5 mm lesion anterior neck with 2 cm layered closure. Description of Surgical Findings:: 68 year old woman presents for evaluation for TBSE. She has concerns about lesions on her inferior chin and anterior neck that have increased in size over the last several months and have become more raised in configuration and have developed irregular borders. There is also some hair growth in the lesions. She denies ulceration. She denies any pain in the lesions. She denies fever. She denies trauma. She denies bleeding. She recently had excision of skin cancers in 08/31/18 where she underwent excision 11 mm basal cell carcinoma right medial forehead with lateral rectangular horizontal advancement skin flap reconstruction (6 cm2) and excision 6 mm basal cell carcinoma right upper lip by nasolabial fold and excision 5 mm lesion right supramedial cheek with perialar crescenteric advancement skin flap reconstruction (10.5 cm2) and excision 4 mm pigmented lesion right nondenominational by hairline with 1.5 cm layered closure and intradermal excision 5 mm intradermal nevus right lateral cheek. Those incisions have since healed with good contouring. Pathology showed the right medial forehead lesion was a basal cell carcinoma and the right upper lip by nasolabial fold lesion was a basal cell carcinoma and the right supramedial cheek lesion was a basal cell carcinoma and the right nondenominational by hairline lesion was a capillary hemangioma and the right lateral cheek lesion was an intradermal nevus. Patient was informed of the risks and complications of the procedure including alternatives to surgery. These were discussed with the patient personally. Patient voices understanding and wishes to proceed. Some of the risks and complications were included in a form from the [employer]. Frozen section inferior chin - intradermal nevus and no carcinoma seen. hasher operator: None Type of Anesthesia:: Local MAC - xylocaine with epinephrine and IV sedation. Specimen's removed: 1. Lesion inferior chin to Pathology as a frozen section. 2. Lesion anterior neck to Pathology. Drains: None. Estimated Blood Loss (mL): 2 ml. Description of Procedure: Patient was taken to OR in supine position and was given IV sedation. The neck and chin areas were prepped and draped in the usual fashion. SCD's were placed for DVT prophylaxis. Perioperative antibiotics were given intravenously. The lesions inferior chin and anterior neck were infiltrated with xylocaine and epinephrine. After waiting 5 minutes for the anesthetic to take effect, the lesion inferior chin was excised in an intradermal fashion and sent to Pathology as a frozen section to evaluate for carcinoma. The lesion anterior neck was attempted to be excised in an intradermal fashion. However it appeared to be a cystic lesion so no frozen section will be done. The frozen section for the inferior chin lesion showed an intradermal nevus and no carcinoma seen. I then excised the cystic lesion anterior neck with a horizontal elliptical excision into the subcutaneous tissue with a 1 mm margin in all directions thus making it a 7 mm excision. A suture was marked at 12 oclock position for pathology orientation The lesion was then sent to Pathology for analysis to rule out carcinoma. Hemostasis was obtained with electrocautery. The wound was closed in a layered fashion with 5-0 Monocryl interrupted sutures for the deep dermis and subcutaneous tissue. The skin was approximated with 5-0 Nylon simple interrupted sutures. Antibiotic ointment was applied to the suture line. For the inferior chin wound, hemostasis was obtained with silver nitrate chemical cauterization followed by antibiotic ointment. Patient tolerated the procedure well and was sent to PACU in satisfactory condition. Patient will be sent home on antibiotics and pain medication. She will keep her head elevated during the initial postop period and be on a lifting restriction. Patient will followup in a week for a wound check and for discussion of the pathology report and for removal of the sutures. Grafts/Implants Used: None. - Complications None. - Admit VTE Documentation VTE Present on Admission: No VTE Mechan Device Prophylaxis: SCD's VTE Pharm Prophylaxis ordered?: No Code Visit Surgery Charges CPT - 36994 ICD-10 - D49.2, Z85.828, Z87.891 05471 D49.2, Z85.828, Z87.891 14596 D23.9, D49.2, Z85.828, Z87.891
[2019-03-18 08:55] VITALS: BP 145/94; BP 163/83; PULSE 76; RESP 16; TEMP 36.7; O2SAT 92
[2019-03-18 09:00] VITALS: BP 143/83; BP 163/83; PULSE 70; RESP 16; O2SAT 93
--- NOTE | 2019-03-18 09:04 | DCINST_ITS ---
You will use the following diet at home:: No restrictions Discharge Activity: May not drive while taking narcotic pain medications., May Shower - in two days., - - keep head elevated. no heavy lifting. May shower in (days): 2 May resume sexual activity in: No Restrictions Ice area for (Minutes): 5 - as needed for swelling Weight Bearing Status: Weight bearing as tolerated Lifting Restrictions: 20 lbs. Keep extremity elevated above heart level: - - elevate head. Call your doctor if your incision/area has: Continuous Slow Oozing, Sudden Increased Bleeding, Increased Pain/ Swelling, Increased Redness, Foul Smelling Discharge, Swelling at the incision site Call your doctor if you observe: Fever of 101 or Higher, Coldness, Increased Pain, Shortness of breath, Chest pain, Calf discomfort, Uncontrolled pain Suture Line Care: - - apply antibiotic ointment to suture line daily. Cleanse incision/area with: - - may get incision wet in the shower in two days. Allergies/Adverse Reactions: Allergies iloperidone [From Fanapt] Allergy (Verified 03/16/19 14:30) Other CAUSES PT TO NOT WALK OR SPEAK lurasidone [From Latuda] Allergy (Verified 03/16/19 14:30) Other paliperidone [From Invega] Allergy (Verified 03/16/19 14:30) increased psychiatric symptoms trazodone Allergy (Verified 03/16/19 14:30) Other theophylline Adverse Reaction (Verified 03/16/19 14:30) Other SLOBID Adverse Reaction (Uncoded 03/16/19 14:30) Other Medications to take at Discharge Buprenorphine HCl/Naloxone HCl [Suboxone 8 mg-2 mg Sl Film] 2 ea SL DAILY 12/24/17 ferrous sulfate 325 mg (65 mg iron) tablet 325 mg PO DAILY #90 tab 07/14/18 miconazole nitrate 2 % topical powder 1 applic TOPICAL BID #71 g 07/14/18 albuterol sulfate HFA 90 mcg/actuation aerosol inhaler 1 puff INHALATION Q4H PRN PRN #8.5 g 09/07/18 pravastatin 40 mg tablet 40 mg PO QHS #60 tab 11/29/18 aripiprazole 10 mg tablet 10 mg PO QHS tab 01/17/19 divalproex 500 mg tablet,delayed release 500 mg PO TID 04/01/19 melatonin 3 mg tablet 3 mg PO QHS tab 01/17/19 omeprazole 40 mg capsule,delayed release 40 mg PO DAILY #60 cap 01/17/19 lisinopril 40 mg tablet 40 mg PO DAILY #90 tab 02/11/19 sucralfate 1 gram tablet 1 g PO QACHS #120 tab 03/03/19 Sennosides/Docusate Sodium [Senna-S Laxative Tablet] 2 tab PO BID 03/07/19 calcium carbonate 600 mg calcium (1,500 mg) tablet 600 mg PO BID #60 tab 03/10/19 metoprolol tartrate 50 mg tablet 50 mg PO BID #60 tab 03/10/19 Hospital bed mattress #1 ea 03/16/19 diaper,brief,adult,disposable See Dose Instructions .ROUTE .MEDSUPPLY #54 ea 03/16/19 Clindamycin HCl [Cleocin HCl] 300 mg PO TID #12 cap 03/18/19 Clindamycin HCl [Cleocin] 300 mg PO TID #12 cap 03/18/19 Ibuprofen [Motrin] 600 mg PO 4X/DAY PRN PRN #30 tab 03/18/19 Ibuprofen [Motrin] 600 mg PO 4X/DAY PRN PRN #30 tab 03/18/19 Lactobacillus Acidophilus/Fos [Acidophilus Probiotic Tablet] 1 ea PO BID #10 tab 03/18/19 Lactobacillus Acidophilus/Fos [Acidophilus Probiotic Tablet] 1 ea PO BID #10 tab 03/18/19 Minipress 3 mg PO TID 03/18/19 The following prescriptions were given: Ibuprofen [Motrin] 600 mg PO 4X/DAY PRN PRN #30 tab PRN Reason: Pain Ibuprofen [Motrin] 600 mg PO 4X/DAY PRN PRN #30 tab PRN Reason: Pain Lactobacillus Acidophilus/Fos [Acidophilus Probiotic Tablet] 1 ea PO BID #10 tab Lactobacillus Acidophilus/Fos [Acidophilus Probiotic Tablet] 1 ea PO BID #10 tab Clindamycin HCl [Cleocin] 300 mg PO TID #12 cap Clindamycin HCl [Cleocin HCl] 300 mg PO TID #12 cap Primary Care Physician: Esperanza Baird MD [Primary Care Provider] - Test Results: Test results from this visit will be discussed in further detail at your follow- up appointment, if applicable. Please Follow Up With: Isaías Davis MD When: one week. call [phone] for appt. Proposed Discharge Date: 03/18/19
[2019-03-18 09:05] VITALS: BP 146/82; BP 163/83; PULSE 70; RESP 16; O2SAT 92
[2019-03-18 09:10] VITALS: BP 140/82; BP 163/83; PULSE 72; RESP 16; TEMP 36.2; O2SAT 92
[2019-03-18 09:48] VITALS: BP 163/83
== END 2019-03-18 09:56 | disposition home or self-care (01) ==
LOC: SDC 06:08 → AC 06:39
PROVIDERS: Family Provider Internal Medicine; PCP Internal Medicine; Referring Provider Surgery; Visit Provider Surgery
PROC: (CPT 11420; principal; 2019-03-18 07:50)
DX: D23.39 Other benign neoplasm of skin of other parts of face (principal); Z85.828 Personal history of other malignant neoplasm of skin; J44.9 Chronic obstructive pulmonary disease, unspecified; K21.9 Gastro-esophageal reflux disease without esophagitis; I10 Essential (primary) hypertension; J45.909 Unspecified asthma, uncomplicated; F17.200 Nicotine dependence, unspecified, uncomplicated; D64.9 Anemia, unspecified; Z87.440 Personal history of urinary (tract) infections; Z79.51 Long term (current) use of inhaled steroids; Z79.899 Other long term (current) drug therapy
CPT/HCPCS: 11420; 11440; 12041; 88305; 88331; 88341; 88342; J7120

== ENCOUNTER → 2019-03-25 | Outpatient (CLI) | payer MEDICARE, SELFPAY ==
[2019-03-25 08:29] VITALS: BMI 31.8
[2019-03-25 09:35] LABS: Valproic Acid (Depakene) Level 29 ug/mL (50-100)
[2019-03-25 09:39] LABS: AST(SGOT) 42 U/L (15-37); Alanine Aminotransfer ALT/SGPT 27 U/L (13-56); Albumin, Serum 3.1 g/dL (3.2-5.0); Alkaline Phosphatase 123 U/L (45-117); Bilirubin, Direct 0.05 mg/dL (0.00-0.30); Globulin 3.5 g/dL (2.2-4.2); Protein, Total 6.6 g/dL (6.4-8.2)
[2019-03-25 09:56] LABS: Vitamin D,25 Hydroxy 38.4 ng/mL (29.95-100.01)
== END | disposition home or self-care (01) ==
PROVIDERS: Family Provider Internal Medicine; PCP Internal Medicine
DX: E55.9 Vitamin D deficiency, unspecified (principal); F31.12 Bipolar disorder, current episode manic without psychotic features, moderate; F43.10 Post-traumatic stress disorder, unspecified
CPT/HCPCS: 36415; 80076; 80164; 82140; 82306

== ENCOUNTER → 2019-05-02 | Outpatient (CLI) | payer MEDICARE, SELFPAY ==
[2019-04-28 14:02] VITALS: BMI 31.8
[2019-05-02 11:57] LABS: Valproic Acid (Depakene) Level 65 ug/mL (50-100)
[2019-05-02 12:01] LABS: AST(SGOT) 18 U/L (15-37); Alanine Aminotransfer ALT/SGPT 21 U/L (13-56); Alkaline Phosphatase 97 U/L (45-117); Amylase 66 U/L (25-115); GGTP 9 U/L (5-55); Lipase 91 U/L (73-393)
[2019-05-03 08:08] LABS: HEPATITIS B SURFACE AG Negative (Negative); Hepatitis A AB, Total Positive (Negative); Hepatitis A IgM Antibody Negative (Negative); Hepatitis B Core AB IgM Negative (Negative); Hepatitis B Core Ab Total Negative (Negative); Hepatitis C Ab <0.1 s/co ratio (0.0-0.9)
[2019-05-03 12:14] LABS: Hep B Surface Antibodies Non Reactive (.)
== END | disposition home or self-care (01) ==
LOC: LAB 10:45
PROVIDERS: Family Provider Internal Medicine; PCP Internal Medicine
DX: F43.10 Post-traumatic stress disorder, unspecified (principal); F31.81 Bipolar II disorder
CPT/HCPCS: 36415; 80164; 82150; 82977; 83690; 84075; 84450; 84460; 86704; 86705; 86706; 86708; 86709; 86803; 87340

== ENCOUNTER → 2019-06-28 | Outpatient (CLI) | payer MEDICARE, SELFPAY ==
[2019-05-13 14:48] VITALS: BMI 36.6
[2019-06-28 13:07] LABS: Anion Gap 6 (5-15); BUN 16 mg/dL (7-18); BUN/Creat Ratio 22.7 RATIO (10-20); Calcium,Total 9.2 mg/dL (8.5-10.1); Chloride 102 mmol/L (98-107); Creatinine, Serum 0.71 mg/dL (0.55-1.02); EST Glomerular Filtration Rate 88 mL/min (>60); Est Glom Filt Rate - Afr Amer 106 mL/min (>60); Glucose 113 mg/dL (74-106); Potassium 4.4 mmol/L (3.5-5.1); Sodium Level 137 mmol/L (136-145)
== END | disposition home or self-care (01) ==
LOC: LAB 11:11
PROVIDERS: Nurse Practitioner Family; Family Provider Internal Medicine; PCP Internal Medicine; Referring Provider Internal Medicine; Visit Provider Internal Medicine
DX: I10 Essential (primary) hypertension (principal)
CPT/HCPCS: 36415; 80048

== ENCOUNTER → 2019-07-14 | Outpatient (CLI) | payer MEDICARE, SELFPAY ==
[2019-06-28 15:13] VITALS: BMI 37.5
[2019-07-14 10:33] LABS: Valproic Acid (Depakene) Level 97 ug/mL (50-100)
== END | disposition home or self-care (01) ==
LOC: LAB 09:47
PROVIDERS: Family Provider Internal Medicine; PCP Internal Medicine
DX: F43.10 Post-traumatic stress disorder, unspecified (principal); F31.81 Bipolar II disorder; F31.12 Bipolar disorder, current episode manic without psychotic features, moderate
CPT/HCPCS: 36415; 80164; 82140

== ENCOUNTER 2019-11-17 08:27 | Emergency (ER) | payer MEDICARE, SELFPAY ==
[2019-10-04 15:32] VITALS: BMI 39.4
[2019-11-17 08:28] VITALS: BP 113/71; PULSE 86; RESP 20; TEMP 36.4; O2SAT 94; BMI 40.3
--- NOTE | 2019-11-17 09:06 | EKG12_ITS ---
Test Reason : GENERAL ILLNESS Blood Pressure : / mmHG Vent. Rate : 093 BPM Atrial Rate : 093 BPM P-R Int : 142 ms QRS Dur : 078 ms QT Int : 366 ms P-R-T Axes : 078 072 073 degrees QTc Int : 455 ms Normal sinus rhythm Normal ECG Confirmed by JOSE SEALS, DIEGO ([id number]), multimedia editor JESUS RUIZ ([id number]) on 11/22/2019 7:48:32 AM Referred By: JESSICA Confirmed By:DIEGO GARCIA MD
--- NOTE | 2019-11-17 09:08 | ED.DCSUM_ITS ---
- ER Visit Summary Date of Service: 11/17/19 Chief Complaint: Body aches I feel like crap History of Present Illness: The patient is a 69 F history of seizure disorder, bipolar, PTSD, COPD, hypertension. Patient states since 1:00 this morning she is achy all over. And some nausea without vomiting. No diarrhea. No fever. No dysuria. No significant cough. No shortness of breath or chest pain. No abdominal pain. Physical Examination: Older female no acute distress vital signs stable afebrile. H EENT exam unremarkable. Moist because membranes. Neck nontender no lymphadenopathy. Lungs clear to auscultation bilaterally. Heart regular rhythm no murmur. Chest wall nontender. Abdomen soft nontender. Normal bowel sounds no peritoneal signs. Patient is moving all 4 extremities. Neurovascular intact. Calves are nontender without edema or cords. Neurologically is awake and alert. With no focal motor deficits. Test Results: CBC shows a white count of 14.5. Hemoglobin 15. No bands. Chemistries unremarkable BUN 28 creatinine 1.2 this is with mild dehydration. UA normal. Influenza negative. EKG normal sinus rhythm rate of 93 with no acute signs of OK or ischemia. Chest x-ray 2 views read both myself and radiologist shows no acute abnormality. No pneumonia. Emergency Department Course and Treatment: Older female may have a viral syndrome versus other etiologies. Patient be treated with IV fluids, Zofran for nausea and p.o. Tylenol. Repeat exam patient doing well at 10:55 AM. She and I went over her test results. She is comfortable being discharged home. Clinically she looks better. She will follow-up as an outpatient. Treatment Plan: Fluids and rest. Return if worse. Follow-up if not improving. Disposition: Discharge Impression: Acute viral syndrome This note was generated with [employer] dictation software. It may contain incorrect words, spelling, and punctuation that were not noted in review of the chart prior to signing ED Disposition - Plan for ED Patient: Referrals: Esperanza Baird MD [Primary Care Provider] -
[2019-11-17] MEDS: 0.9% Normal Saline 1,000 ML 1000 ML IV (09:23)
[2019-11-17] MEDS: Acetaminophen 500 MG Tablet 1000 MG PO (09:23)
[2019-11-17] MEDS: Ondansetron 4 MG/2 ML Vial IV (09:25)
--- NOTE | 2019-11-17 09:33 | RAD_ITS ---
STUDY: X-RAY CHEST REASON FOR EXAM: Female, 69 years old. General illness, weakness, nausea TECHNIQUE: PA and lateral views of the chest. COMPARISON: Comparison is made with prior study dated September 12, 2018. FINDINGS: Hyperinflation. The lungs are clear and expanded. There is no demonstrated pleural abnormality. Normal size heart. Calcified right hilar lymph nodes. Normal visualized pulmonary arteries. There is atherosclerotic calcification of the aortic arch with tortuosity. There are diffuse degenerative changes of the visualized thoracic spine. Normal visualized ribs, clavicles, and shoulders. There is no demonstrated abnormality of the visualized soft tissue structures of the upper abdomen. RAD/Chest PA and Lateral IMPRESSION: Hyperinflation. No acute disease. Stable examination. Electronically Signed: Wil Ortega, at 9:51 EST , Service support ,
[2019-11-17 09:39] LABS: Absolute Lymphocyte Count 1.78 X10^3/uL (0.83-4.51); Absolute Neutrophil Count 11.6 X10^3/uL (2.0-7.7); Basophil# 0.05 X10^3/uL; Basophil% 0.3 % (0-1); Eosinophils% 0.7 % (0-5); Lymphocyte # 1.78 X10^3/ul (4.0); Lymphocyte % 12.3 % (19-41); Mean Corp Hgb Conc 33.3 g/dL (32-36); Mean Corpuscular Hgb 30.9 pg (27.0-32.0); Mean Corpuscular Volume 92.8 fL (81-99); Mean Platelet Vol. 9.4 fl (6.2-12.0); Monocyte# 0.79 X10^3/uL; Monocyte% 5.4 % (0-10); NRBC Flagged by Analyzer 0 % (0-5); Platelet Count 529 K/mm3 (150-450); RBC Distribution Width CV 12.9 % (11.6-14.6); RBC Distribution Width SD 43.8 fl (35.1-43.9); Red Blood Count 4.85 M/mm3 (4.2-5.4); White Blood Count 14.5 K/mm3 (4.4-11.0)
[2019-11-17 09:52] LABS: Anion Gap 8 (5-15); BUN 28 mg/dL (7-18); BUN/Creat Ratio 23.1 RATIO (10-20); Calcium,Total 9.1 mg/dL (8.5-10.1); Chloride 105 mmol/L (98-107); Creatinine, Serum 1.21 mg/dL (0.55-1.02); EST Glomerular Filtration Rate 47 mL/min (>60); Est Glom Filt Rate - Afr Amer 57 mL/min (>60); Estimated Creatinine Clearance 35.68 ml/min; Glucose 143 mg/dL (74-106); Potassium 4.2 mmol/L (3.5-5.1); Sodium Level 138 mmol/L (136-145)
[2019-11-17 09:55] LABS: Mucous, Urine 0 SEEN /hpf (<or=2+); Red Blood Cells-Urine 0 SEEN /hpf (0-5)
[2019-11-17 09:57] LABS: Color, Urine Yellow (Yellow); Glucose, Dipstick Normal (Normal); Ketone-Dipstick 5 mg/dl (Negative); Leukocyte Esterase-Dipstick 25 /ul (Negative); Nitrite-Dipstick Negative (Negative); Occult Blood-Urine Negative /ul (Negative); Protein-Dipstick 15 mg/dl (Negative); Specific Gravity, Urine 1.015 (1.002-1.030); Urine Clarity Sl. Cloudy (Clear); Urine Urobilinogen 1 mg/dl (Normal)
[2019-11-17 09:58] LABS: Urine Bilirubin Dipstick 1 mg/dL (Negative)
[2019-11-17 10:05] LABS: Bacteria 1+ /hpf (None Seen); Fine Granular Cast- Urine 0-5 SEEN /lpf (0-5); Squamous Epithelial Cells - UA 0-5 SEEN /hpf (5-10); White Blood Cells 0-5 SEEN /hpf (0-5)
--- NOTE | 2019-11-17 10:58 | ED.DEP ---
ED Disposition - Plan for ED Patient: Disposition: Home or Assisted Living Instructions: VIRAL SYNDROME (Adult) Referrals: Esperanza Baird MD [Primary Care Provider] - 3-5 Days if not improving Additional Instructions: Plenty of fluids and rest. Alternate Tylenol Motrin as needed for fever and body aches. Follow-up with your doctor if not improving or return if feeling worse.
[2019-11-17 11:04] VITALS: BP 140/72; PULSE 82; RESP 18; O2SAT 95
== END 2019-11-17 11:11 | disposition home or self-care (01) ==
PROVIDERS: Emergency Provider Emergency Medicine; PCP Internal Medicine
DX: B34.9 Viral infection, unspecified (principal); J44.9 Chronic obstructive pulmonary disease, unspecified; I10 Essential (primary) hypertension; Z72.0 Tobacco use
CPT/HCPCS: 71046; 80048; 81001; 85025; 87804; 93005; 96361; 96374; 99285; J7030; A4216; J2405

== ENCOUNTER 2019-12-14 07:31 | Emergency (ER) | payer MEDICARE, SELFPAY ==
[2019-12-14 07:32] VITALS: BP 134/79; PULSE 107; RESP 16; TEMP 36.2; O2SAT 93; BMI 32.9
--- NOTE | 2019-12-14 07:52 | EKG12_ITS ---
Test Reason : N\V Blood Pressure : / mmHG Vent. Rate : 092 BPM Atrial Rate : 092 BPM P-R Int : 150 ms QRS Dur : 084 ms QT Int : 370 ms P-R-T Axes : 069 065 059 degrees QTc Int : 457 ms Normal sinus rhythm Normal ECG Confirmed by ROBINA SEALS, SPEEDY ([id number]), publishing editor ROXANNE RYAN ([id number]) on 12/19/2019 8:40:40 AM Referred By: SYLVIE Confirmed By:CECILE QUARLES MD
--- NOTE | 2019-12-14 07:52 | ED.DCSUM_ITS ---
History of Present Illness Chief Complaint: Nausea/Vomiting/Diarrhea Informant: Patient - Abdominal Pain/Flank Pain Onset: Days Context: Gradual Onset Timing: Intermittent - Nausea/Vomiting/Emesis GI Symptom: Nausea, Vomiting Onset: Days - 2 Quality: Nonbilious - Diarrhea/Melena/Hematochezia GI Symptom: Diarrhea Onset: Today Stool Quality: Loose Associated Symptoms: Negative for: Dysuria, Frequency, Hematuria, Urgency Narrative: Patient is a 69-year-old female with history of bipolar disorder and hypertension presenting with nausea, vomiting and diarrhea. Patient states she ate chicken at [employer] and then the next day started having nausea and vomiting. She states the same thing happened 3 weeks ago. She states is been that she is had 3 episodes of vomiting and then developed diarrhea as well. She is had 3 episodes of diarrhea. The diarrhea is new. She denies any blood in her vomit or her stool. She does feel little weak and tremulous. She denies associated abdominal pain, fever or symptoms. Denies any chest pain, shortness of breath or difficulty breathing. Patient seems to be concerned because she is never had diarrhea with this before. Past Medical History - Allergies and Home Meds Allergies/Adverse Reactions: Allergies iloperidone [From Fanapt] Allergy (Verified 12/14/19 07:32) Other CAUSES PT TO NOT WALK OR SPEAK lurasidone [From Latuda] Allergy (Verified 12/14/19 07:32) Other paliperidone [From Invega] Allergy (Verified 12/14/19 07:32) increased psychiatric symptoms trazodone Allergy (Verified 12/14/19 07:32) Other theophylline Adverse Reaction (Verified 12/14/19 07:32) Other SLOBID Adverse Reaction (Uncoded 12/14/19 07:32) Other Primary Care Physician: Esperanza Baird MD [Primary Care Provider] - Past Medical History: - - Hypertension, JENNIFER, PTSD, bipolar disorder, hyperlipidemia, history of hepatitis, COPD Surgical History: cholecystectomy, hysterectomy, - - C-sections - 3, abdominal hysterectomy, hernia repair with mesh?. Smoking Status: Current every day smoker - Family History Maternal Family History: Family History (Last Reviewed 10/04/19 @ 14:24 by Shaina Finley) Brother Colon cancer Lung cancer Aunt Obesity Sister Obesity Mother Rheumatoid arthritis Father Alzheimer disease Brother Alzheimer disease Family History: Reports: No pertinent history Paternal Family History: Family History (Last Reviewed 10/04/19 @ 14:24 by Shaina Finley) Brother Colon cancer Lung cancer Aunt Obesity Sister Obesity Mother Rheumatoid arthritis Father Alzheimer disease Brother Alzheimer disease Family History: Reports: No pertinent history Sibling Family History: Family History (Last Reviewed 10/04/19 @ 14:24 by Shaina Finley) Brother Colon cancer Lung cancer Aunt Obesity Sister Obesity Mother Rheumatoid arthritis Father Alzheimer disease Brother Alzheimer disease Family History: Reports: Cancer Review of Systems General: Reports: Malaise. Denies: Chills, Fever, Sweats Eyes: Denies: Visual changes - bilaterally, Diplopia ENT: Denies: Rhinorrhea, Sore throat Cardiovascular: Denies: Chest pain, Palpitations Respiratory: Denies: Dyspnea, Cough, Dyspnea on exertion Gastrointestinal: Reports: Nausea, Vomiting, Diarrhea. Denies: Abdominal pain, Melena, Hematochezia Genitourinary: Denies: Dysuria, Hematuria, Frequency Musculoskeletal: Denies: Back pain, Extremity Pain Skin: Denies: Rash, Wounds Neurological: Denies: Headache, Weakness, Numbness Physical Exam Vital Signs/Narrative: Vital Signs Temp Pulse Resp BP Pulse Ox 12/14/19 07:32 97.1 F L 107 H 16 134/79 H 93 Inital Vital Signs reviewed: Yes General: Well nourished, Well developed Head: Normocephalic, Atraumatic Eyes: Perrl, EOMI ENT: No rhinorrhea, Dry mucous membranes Neck: Supple, Nontender Cardiovascular: Regular rate, Regular rhythm, No murmurs Respiratory: No distress, CTA bilaterally, Chest nontender Abdomen: Soft, Nontender, Nondistended, Normal bowel sounds. Negative for: Guarding, Rebound tenderness Back: Nontender, Normal Inspection. Negative for: CVA tenderness Extremities: Nontender, No edema Skin: Normal color, No rash, Pallor Neurological: Alert, Oriented x3, Cranial nerves II-XII grossly intact, Normal Strength, Normal Sensation Psychological: Normal affect, Normal Mood Diagnostic/Tx/Re-eval Chest X-Ray - ED: 1 View, Read by ED Physician, Read by Radiologist, No Acute Disease Clinical Impression(s) from Imaging Studies Chest X-Ray 12/14/19 07:59 IMPRESSION: Normal portable chest. Electronically Signed: Clarence Gomes, at 8:27 EST Tel , Service support , Laboratory Data 12/14/19 12/14/19 12/14/19 08:05 08:05 08:35 WBC 14.9 H RBC 4.78 Hgb 14.8 Hct 45.3 MCV 94.8 MCH 31.0 MCHC 32.7 RDW Std Deviation 45.9 H RDW Coeff of Tami 13.2 Plt Count 432 MPV 9.5 Immature Gran % (Auto) 1.400 H Neut % (Auto) 81.7 H Lymph % (Auto) 8.4 L [place] % (Auto) 7.3 Eos % (Auto) 0.9 Baso % (Auto) 0.3 Absolute Neuts (auto) 12.2 H Absolute Lymphs (auto) 1.26 Nucleated RBC % 0 Sodium 140 Potassium 3.5 Chloride 105 Carbon Dioxide 26.0 Anion Gap 9 BUN 23 H Creatinine 1.06 H Estim Creat Clear Calc 40.73 Est GFR (MDRD) Af Amer 66 Est GFR (MDRD) Non-Af 55 L BUN/Creatinine Ratio 21.7 H Glucose 172 H Calcium 8.8 Total Bilirubin 0.20 AST 25 ALT 38 Alkaline Phosphatase 114 Troponin I < 0.015 Total Protein 7.1 Albumin 3.4 Globulin 3.7 Albumin/Globulin Ratio 0.9 Lipase 85 Urine Color Yellow Urine Clarity Sl. Cloudy Urine pH 5.0 Ur Specific [place] 1.020 Urine Protein 30 H Urine Glucose (UA) Normal Urine Ketones 15 H Urine Occult Blood 10 H Urine Nitrite Negative Urine Bilirubin 3 H Urine Urobilinogen 4 H Ur Leukocyte Esterase 25 H Urine RBC 0 SEEN Urine WBC 0-5 SEEN Ur Squamous Epith Cells 0-5 SEEN Ur Transition Epith Cell 0 SEEN Urine Bacteria 1+ Urine Mucus 1+ - Rhythm Strip Rhythm Strip: Sinus Rhythm Rate: 92 Ectopy: None - EKG Initial EKG Interpretation: Sinus Rhythm, - - Normal sinus rhythm at a rate of 92 Normal intervals Normal axis Normal ST segments Compared to prior EKG on 11/17/2019 patient is not have any changes - Medical Decision Making Evaluated for vomiting diarrhea. She appears mildly dehydrated. She is initially tachycardic. Patient is given IV fluids. She is feeling better. She is also given IV Zofran. Tachycardia improves on the emergency room. She does have a mild leukocytosis which might be reactive. She has no obvious source of infection. Her abdomen is soft I do not suspect diverticulitis or an acute intra-abdominal infection requiring antibiotics at this time. I do not think she requires abdominal imaging at this time. Patient does not have any risk factors for C. difficile and she is not having copious diarrhea. I do not think she requires stool culture or p.o. Vanco at this time. Her creatinine is mildly elevated from her baseline but do not think this requires admission. Her glucos e is mildly elevated at 172. She is a normal anion gap. Otherwise normal electrolytes. Urinalysis does not show signs of infection but does have some ketones consistent with dehydration. Troponin and EKG are normal. Patient be discharged home with symptomatic treatment clean Pepto-Bismol and Zofran. She is encouraged to drink plenty of fluids. She is counseled on signs symptoms require return the emergency room. She verbalizes agreement understand this plan. She discharged home in stable condition. ED Disposition - Plan for ED Patient: Disposition: Home or Assisted Living Diagnosis: Nausea vomiting and diarrhea Instructions: VOMITING AND DIARRHEA, Nonspecific (Adult) Prescriptions: Bismuth Subsalicylate [Pepto-Bismol] 525 mg PO Q8H PRN PRN #1 oral.susp PRN Reason: Diarrhea Ondansetron [Zofran Odt] 4 mg PO Q8H PRN PRN #10 tablet PRN Reason: Nausea Referrals: Esperanza Baird MD [Primary Care Provider] - Additional Instructions: Drink plenty of fluids. More than likely this is food poisoning versus stomach flu. If you develop abdominal pain or worsening symptoms please return the emergency room. Follow-up with your primary care doctor.
--- NOTE | 2019-12-14 07:59 | RAD_ITS ---
EXAM DESCRIPTION: PORTABLE AP CHEST CLINICAL HISTORY: 69 years Female, nausea, vomiting, weakness nausea, vomiting, weakness COMPARISON: Previous chest obtained on 11/17/2019 FINDINGS: The thorax is intact. The heart and mediastinum appear to be within normal limits. The lungs appear to be well areated without evidence of pneumonic consolidation or pleural effusion. RAD/Chest 1 View (Portable) IMPRESSION: Normal portable chest. Electronically Signed: Clarence Gomes, at 8:27 EST Tel , Service support ,
[2019-12-14] MEDS: 0.9% Normal Saline 1,000 ML 1000 ML IV (08:06)
[2019-12-14] MEDS: Ondansetron 4 MG/2 ML Vial IV (08:06)
[2019-12-14 08:19] LABS: Absolute Lymphocyte Count 1.26 X10^3/uL (0.83-4.51); Absolute Neutrophil Count 12.2 X10^3/uL (2.0-7.7); Basophil# 0.04 X10^3/uL; Basophil% 0.3 % (0-1); Eosinophil# 0.14 X10^3/uL; Eosinophils% 0.9 % (0-5); Hematocrit 45.3 % (37-47); Hemoglobin 14.8 g/dL (12.0-15.0); Lymphocyte # 1.26 X10^3/ul (4.0); Lymphocyte % 8.4 % (19-41); Mean Corp Hgb Conc 32.7 g/dL (32-36); Mean Corpuscular Volume 94.8 fL (81-99); Mean Platelet Vol. 9.5 fl (6.2-12.0); Monocyte# 1.09 X10^3/uL; Monocyte% 7.3 % (0-10); NRBC Flagged by Analyzer 0 % (0-5); Neutrophil # 12.19 X10^3/uL (2.7-7.7); Neutrophil % 81.7 % (47-70); Platelet Count 432 K/mm3 (150-450); RBC Distribution Width CV 13.2 % (11.6-14.6); RBC Distribution Width SD 45.9 fl (35.1-43.9); Red Blood Count 4.78 M/mm3 (4.2-5.4); White Blood Count 14.9 K/mm3 (4.4-11.0)
[2019-12-14 08:37] LABS: ALB/GLOB Ratio 0.9 RATIO (0.9-2.4); AST(SGOT) 25 U/L (15-37); Alanine Aminotransfer ALT/SGPT 38 U/L (13-56); Albumin, Serum 3.4 g/dL (3.2-5.0); Alkaline Phosphatase 114 U/L (45-117); Anion Gap 9 (5-15); BUN 23 mg/dL (7-18); BUN/Creat Ratio 21.7 RATIO (10-20); Calcium,Total 8.8 mg/dL (8.5-10.1); Chloride 105 mmol/L (98-107); Creatinine, Serum 1.06 mg/dL (0.55-1.02); EST Glomerular Filtration Rate 55 mL/min (>60); Est Glom Filt Rate - Afr Amer 66 mL/min (>60); Estimated Creatinine Clearance 40.73 ml/min; Globulin 3.7 g/dL (2.2-4.2); Glucose 172 mg/dL (74-106); Lipase 85 U/L (73-393); Potassium 3.5 mmol/L (3.5-5.1); Protein, Total 7.1 g/dL (6.4-8.2); Sodium Level 140 mmol/L (136-145)
[2019-12-14 08:44] LABS: Red Blood Cells-Urine 0 SEEN /hpf (0-5)
[2019-12-14 08:45] LABS: Color, Urine Yellow (Yellow); Glucose, Dipstick Normal (Normal); Ketone-Dipstick 15 mg/dl (Negative); Leukocyte Esterase-Dipstick 25 /ul (Negative); Nitrite-Dipstick Negative (Negative); Occult Blood-Urine 10 /ul (Negative); Protein-Dipstick 30 mg/dl (Negative); Urine Clarity Sl. Cloudy (Clear); Urine Urobilinogen 4 mg/dl (Normal)
[2019-12-14 08:46] LABS: Urine Bilirubin Dipstick 3 mg/dL (Negative)
[2019-12-14 08:51] LABS: Bacteria 1+ /hpf (None Seen); Mucous, Urine 1+ /hpf (<or=2+); Squamous Epithelial Cells - UA 0-5 SEEN /hpf (5-10); Transitional Epithelial - Ur 0 SEEN /hpf (0-5); White Blood Cells 0-5 SEEN /hpf (0-5)
[2019-12-14 09:53] VITALS: BP 107/61; PULSE 76; RESP 16; O2SAT 97
== END 2019-12-14 09:54 | disposition home or self-care (01) ==
PROVIDERS: Emergency Provider Emergency Medicine; PCP Internal Medicine
DX: R19.7 Diarrhea, unspecified (principal); R11.2 Nausea with vomiting, unspecified; G47.33 Obstructive sleep apnea (adult) (pediatric); I10 Essential (primary) hypertension; J44.9 Chronic obstructive pulmonary disease, unspecified; F17.200 Nicotine dependence, unspecified, uncomplicated
CPT/HCPCS: 71045; 80053; 81001; 83690; 84484; 85025; 93005; 96361; 96374; 99284; J7030; A4216; J2405

== ENCOUNTER → 2020-01-03 | Outpatient (CLI) | payer MEDICARE, MEDICAID, SELFPAY ==
[2020-01-03 13:22] VITALS: BMI 32.9
[2020-01-03 16:02] LABS: T4 Free Direct 1.06 ng/dL (0.76-1.46); Thyroid Stim Hormone (TSH) 0.53 uIU/mL (0.358-3.74)
== END | disposition home or self-care (01) ==
PROVIDERS: PCP Internal Medicine; Referring Provider Internal Medicine; Visit Provider Internal Medicine
DX: F31.9 Bipolar disorder, unspecified (principal); Z13.29 Encounter for screening for other suspected endocrine disorder
CPT/HCPCS: 36415; 84439; 84443

== ENCOUNTER → 2020-01-10 | Outpatient (CLI) | payer MEDICARE, MEDICAID, SELFPAY ==
[2020-01-03 13:22] VITALS: BMI 32.9
--- NOTE | 2020-01-10 12:39 | BI_ITS ---
MAMMOGRAPHY - BILATERAL SCREENING REASON FOR EXAM: Female, 69 years old. Routine annual screening examination. PERTINENT HISTORY: Non-contributory. TECHNIQUE: Digital bilateral breast isaura (3D mammographic acquisition) in the CC and MLO projections. 2-D mediolateral oblique (MLO) and craniocaudad (CC) views of both breasts were obtained. CAD: Full Field Digital Mammography with Computer Added Detection was performed. COMPARISON: Comparison is made with prior examination dated March 05, 2018 and December 20, 2013. FINDINGS: Breast Composition: The breasts are almost entirely fatty. There are no dominant masses or suspicious calcifications. No other significant abnormalities are identified. There has been no significant change since the prior study. BI/SCREEN MAMM (CAD) W/ISAURA BILAT IMPRESSION: Stable bilateral screening mammogram. Yearly follow-up mammogram recommended. (A) ASSESSMENT CATEGORY: BIRADS Category 1: Negative. A letter regarding these results will be sent to the patient by the facility within 30 days. Approximately 10% of breast cancers are not detected by mammography. A normal mammogram should not delay biopsy of a clinically suspicious abnormality. [id number] Electronically Signed: Wil Ortega, at 13:59 EDT , Service support ,
== END | disposition home or self-care (01) ==
PROVIDERS: PCP Internal Medicine; Referring Provider Internal Medicine; Visit Provider Internal Medicine
DX: Z12.31 Encounter for screening mammogram for malignant neoplasm of breast (principal)
CPT/HCPCS: 77063; 77067

== ENCOUNTER → 2020-04-03 | Outpatient (CLI) | payer MEDICARE, MEDICAID, SELFPAY ==
[2020-04-03 13:31] VITALS: BMI 40.2
[2020-04-03 15:47] LABS: Cholesterol 222 mg/dL (200); High Density Lipoprotein 27 mg/dL; Triglycerides 335 mg/dL; Very Low Density Lipoprotein 67 mg/dL (5-40)
== END | disposition home or self-care (01) ==
LOC: BIMLAB 14:18
PROVIDERS: PCP Internal Medicine; Referring Provider Internal Medicine; Visit Provider Internal Medicine
DX: I10 Essential (primary) hypertension (principal)
CPT/HCPCS: 36415; 80061

== ENCOUNTER 2020-04-07 12:29 | Emergency (ER) | payer MEDICARE, MEDICAID, SELFPAY ==
[2020-04-03 13:31] VITALS: BMI 40.2
[2020-04-07 12:30] VITALS: BP 162/103; PULSE 84; RESP 16; TEMP 36.2; O2SAT 93; BMI 39.9
[2020-04-07 12:38] VITALS: RESP 16
--- NOTE | 2020-04-07 13:06 | RAD_ITS ---
STUDY: X-RAY - RIGHT KNEE REASON FOR EXAM: Female, 69 years old. BILAT KNEE PAIN, RT GREATER THAN LEFT. HX FALL TECHNIQUE: 4 view(s) of the knee. COMPARISON: February 02, 2018 FINDINGS: There is demineralization of the visualized distal femur. There is demineralization of the tibia and fibula. Normal proximal tibiofibular articulation. There is severe degenerative arthrosis of the medial femorotibial compartment with severe joint space narrowing. There is mild degenerative arthrosis of the lateral femorotibial compartment. There is moderate degenerative arthrosis of the patellofemoral articulation. The soft tissue structures are unremarkable. RAD/Knee 4 or More Views IMPRESSION: Degenerative arthrosis. Electronically Signed: Kimberly Ward MD at 14:13 EDT Tel , Service support ,
--- NOTE | 2020-04-07 13:06 | RAD_ITS ---
STUDY: X-RAY - LEFT HAND REASON FOR EXAM: Female, 69 years old. PAIN, STS, LTD ROM PINKY AND RING FINGER. HX FALL TECHNIQUE: 3 view(s) of the hand. COMPARISON: Right wrist dated May 13, 2015 FINDINGS: There is joint space narrowing of the radiocarpal articulation consistent with degenerative arthrosis. Normal distal radioulnar joint. Normal visualized carpal bones. Normal carpal articulations There is degenerative arthrosis of the carpometacarpal (CMC) articulation of the thumb. Normal second through fifth carpometacarpal joints. Normal metacarpi. Normal metacarpophalangeal joint of the thumb. There is degenerative arthrosis of the interphalangeal joint of the thumb with articular joint space narrowing. Normal proximal and distal phalanges of the thumb. Normal metacarpophalangeal joints of the second through fifth fingers. There is diffuse articular joint space narrowing of the proximal and distal interphalangeal joints of the second through fifth fingers, but without erosive changes or periarticular soft tissue swelling. There is a fracture within the proximal metaphysis of the fifth proximal phalanx. The soft tissue structures are unremarkable. RAD/Hand Min 3 Views IMPRESSION: Fifth proximal phalanx fracture. Degenerative joint disease of the hand and wrist, as described above. Electronically Signed: Kimberly Ward MD at 14:22 EDT Tel , Service support ,
--- NOTE | 2020-04-07 13:06 | RAD_ITS ---
STUDY: X-RAY - LEFT KNEE REASON FOR EXAM: Female, 69 years old. BILAT KNEE PAIN, RT GREATER THAN LEFT. HX FALL TECHNIQUE: 4 view(s) of the knee. COMPARISON: June 21, 2015 FINDINGS: There is demineralization of the visualized distal femur. There is demineralization of the tibia and fibula. Normal proximal tibiofibular articulation. There is severe degenerative arthrosis of the medial femorotibial compartment with severe joint space narrowing. There is mild degenerative arthrosis of the lateral femorotibial compartment. There is mild degenerative arthrosis of the patellofemoral articulation. The soft tissue structures are unremarkable. RAD/Knee 4 or More Views IMPRESSION: Degenerative arthrosis. Electronically Signed: Kimberly Ward MD at 14:14 EDT Tel , Service support ,
--- NOTE | 2020-04-07 13:07 | ED.VIS.GEN ---
History of Present Illness Chief Complaint: Fall Informant: Patient Onset: Yesterday Narrative: Patient states that last evening she tripped on a curve came down the bilateral knees and also caught her middle and ring finger of the left hand underneath of her. She notes worsening pain today. She has painful ambulation but she has been able to. She notes a bruise/abrasion to her right left check. Past Medical History - Allergies and Home Meds Allergies/Adverse Reactions: Allergies iloperidone [From Fanapt] Allergy (Verified 04/07/20 12:30) Other CAUSES PT TO NOT WALK OR SPEAK lurasidone [From Latuda] Allergy (Verified 04/07/20 12:30) Other paliperidone [From Invega] Allergy (Verified 04/07/20 12:30) increased psychiatric symptoms trazodone Allergy (Verified 04/07/20 12:30) Other theophylline Adverse Reaction (Verified 04/07/20 12:30) Other SLOBID Adverse Reaction (Uncoded 04/07/20 12:30) Other Primary Care Physician: Shavonne Dykes DO [STAFF PHYSICIAN] - (call on Thursday to arrange follow up) Surgical History: cholecystectomy, hysterectomy, - - C-sections - 3, abdominal hysterectomy, hernia repair with mesh?. Smoking Status: Current every day smoker - Family History Maternal Family History: Family History (Last Reviewed 03/06/20 @ 14:06 by Tessie Reinoso) Brother Colon cancer Lung cancer Aunt Obesity Sister Obesity Mother Rheumatoid arthritis Father Alzheimer disease Brother Alzheimer disease Family History: Reports: No pertinent history Paternal Family History: Family History (Last Reviewed 03/06/20 @ 14:06 by Tessie Reinoso) Brother Colon cancer Lung cancer Aunt Obesity Sister Obesity Mother Rheumatoid arthritis Father Alzheimer disease Brother Alzheimer disease Family History: Reports: No pertinent history Sibling Family History: Family History (Last Reviewed 03/06/20 @ 14:06 by Tessie Reinoso) Brother Colon cancer Lung cancer Aunt Obesity Sister Obesity Mother Rheumatoid arthritis Father Alzheimer disease Brother Alzheimer disease Family History: Reports: Cancer Review of Systems General: Denies: Chills, Fever, Sweats Eyes: Denies: Visual changes - bilaterally, Diplopia ENT: Denies: Rhinorrhea, Sore throat Cardiovascular: Denies: Chest pain, Palpitations Respiratory: Denies: Dyspnea, Cough, Dyspnea on exertion Gastrointestinal: Denies: Abdominal pain, Nausea, Vomiting, Diarrhea, Melena, Hematochezia Genitourinary: Denies: Dysuria, Hematuria, Frequency Musculoskeletal: Reports: Extremity Pain. Denies: Back pain Skin: Denies: Rash, Wounds Neurological: Denies: Headache, Weakness, Numbness Physical Exam Vital Signs/Narrative: Vital Signs Temp Pulse Resp BP Pulse Ox 04/07/20 12:38 16 04/07/20 12:30 97.1 F L 84 16 162/103 H 93 Inital Vital Signs reviewed: Yes General: Well nourished, Well developed, No Acute Distress Head: Normocephalic, Trauma - Superficial abrasion to the left cheek. No deformity. No malocclusion or dental trauma. Eyes: Perrl, EOMI ENT: Moist mucous membranes, No rhinorrhea Neck: Supple, Nontender Cardiovascular: Regular rate, Regular rhythm, No murmurs Respiratory: No distress, CTA bilaterally, Chest nontender Abdomen: Soft, Nontender, Nondistended, Normal bowel sounds Back: Nontender, Normal Inspection Extremities: No edema, - - Left little finger and ring finger show tenderness and swelling at the PIP joints with some ecchymosis. Right greater than left knee pain upon palpation. No obvious effusion. Extensor mechanisms are intact. Ligaments appear stable. Skin: Normal color, No rash Neurological: Alert, Oriented x3, Cranial nerves II-XII grossly intact, Normal Strength, Normal Sensation Psychological: Normal affect, Normal Mood Diagnostic/Tx/Re-eval Clinical Impression(s) from Imaging Studies Hand X-Ray 04/07/20 13:06 IMPRESSION: Fifth proximal phalanx fracture. Degenerative joint disease of the hand and wrist, as described above. Electronically Signed: Kimberly Ward MD at 14:22 EDT Tel , Service support , Knee X-Ray 04/07/20 13:06 IMPRESSION: Degenerative arthrosis. Electronically Signed: Kimberly Ward MD at 14:14 EDT Tel , Service support , Knee X-Ray 04/07/20 13:06 IMPRESSION: Degenerative arthrosis. Electronically Signed: Kimberly Ward MD at 14:13 EDT Tel , Service support , - Medical Decision Making Patient was placed in a modified short ulnar gutter splint made from plaster. She would like to be able to use her index and long finger. Neuro vascularly intact pre-and post application. Explained to the patient that she should follow-up with orthopedics early this week. They will be transitioning her to a new immobilization method. The patient can use ibuprofen for pain. She will follow-up with her orthopedic surgeon . ED Disposition - Plan for ED Patient: Disposition: Home or Assisted Living Diagnosis: Contusion of knee, left, Contusion of knee, right, Closed fracture of phalanx of little finger Instructions: ED EXTREMITY CONTUSION Lower, ED Fx Hand Closed Referrals: Shavonne Dykes DO [STAFF PHYSICIAN] - (call on Thursday to arrange follow up)
[2020-04-07 14:44] VITALS: BP 185/110; PULSE 82; RESP 16; O2SAT 99
--- NOTE | 2020-04-07 14:44 | ED.RN ---
PT STATES THAT SHE IS DUE TO TAKE HER BP MEDS WHEN SHE GETS HOME. REVIEWED D/C INSTRUCTIONS, FOLLOW UP CARE, AND S/S THAT WOULD WARRANT A RETURN TO THE ED WITH PT. PT VERBALIZED AN UNDERSTANDING AND DENIES FURTHER QUESTIONS FOR THIS RN. PT SKIN P/W/D, RESP EVEN AND UNLABORED, PT A&O X 3, NO DISTRESS NOTED. PT AMBULATED OUT OF ED, GAIT STEADY.
== END 2020-04-07 14:45 | disposition home or self-care (01) ==
LOC: ED 14:30
PROVIDERS: Emergency Provider Emergency Medicine; PCP Internal Medicine
DX: S62.647A Nondisplaced fracture of proximal phalanx of left little finger, initial encounter for closed fracture (principal); S80.02XA Contusion of left knee, initial encounter; S80.01XA Contusion of right knee, initial encounter; F17.200 Nicotine dependence, unspecified, uncomplicated; W18.09XA Striking against other object with subsequent fall, initial encounter; Y93.01 Activity, walking, marching and hiking; Y92.89 Other specified places as the place of occurrence of the external cause; Y99.8 Other external cause status
CPT/HCPCS: 29130; 73130; 73564; 99282

== ENCOUNTER → 2020-05-02 | Outpatient (CLI) | payer MEDICARE, MEDICAID, SELFPAY ==
[2020-04-11 08:10] VITALS: BMI 39.9
--- NOTE | 2020-05-02 13:28 | RAD_ITS ---
STUDY: X-RAY - RIGHT HAND REASON FOR EXAM: Female, 69 years old. FALL/ PAIN OVER METACARPALS TECHNIQUE: 3 view(s) of the hand. COMPARISON: None. FINDINGS: Normal radiocarpal articulation. Normal distal radioulnar joint. Normal visualized carpal bones. There mild degenerative changes or joint space narrowing of the greater multangular and the ventricular joint. There are degenerative changes of the first metacarpal greater multangular joint. Normal second through fifth carpometacarpal joints. Normal metacarpi. Normal metacarpophalangeal joint of the thumb. There mild arthritic changes of the first interphalangeal joint. Normal proximal and distal phalanges of the thumb. Normal metacarpophalangeal joints of the second through fifth fingers. There are degenerative changes of the second, third, and fifth DIP joints. Normal phalanges of the second through fifth fingers. The soft tissue structures are unremarkable. RAD/Hand Min 3 Views IMPRESSION: Degenerative joint disease of the hand and wrist, as described above. There is no evidence of fracture or dislocation. Electronically Signed: Atul Atkinson MD at 16:57 EDT , Service support ,
--- NOTE | 2020-05-02 13:33 | RAD_ITS ---
STUDY: X-RAY - LEFT HAND REASON FOR EXAM: Female, 69 years old. FALL. PAIN 5TH METACARPAL TECHNIQUE: 3 view(s) of the hand. COMPARISON: None. FINDINGS: Normal radiocarpal articulation. Normal distal radioulnar joint. Normal visualized carpal bones. There are degenerative changes of the greater multangular navicular joint. There are severe arthritic changes of the first metacarpal greater multangular joint. Normal second through fifth carpometacarpal joints. Normal metacarpi. Normal metacarpophalangeal joint of the thumb. Normal interphalangeal joint of the thumb. Normal proximal and distal phalanges of the thumb. Normal metacarpophalangeal joints of the second through fifth fingers. Normal proximal and distal interphalangeal joints of the second through fifth fingers. There is a nondisplaced fracture of the base of the fifth proximal phalanx. The soft tissue structures are unremarkable. RAD/Hand Min 3 Views IMPRESSION: Nondisplaced fracture of the base of the fifth proximal phalanx. Degenerative changes of the first metacarpal greater multangular joint and greater multangular navicular joint. Electronically Signed: Atul Atkinson MD at 16:53 EDT , Service support ,
== END | disposition home or self-care (01) ==
LOC: HPRAD 13:28
PROVIDERS: PCP Internal Medicine; Referring Provider Orthopaedic Surgery; Visit Provider Orthopaedic Surgery
DX: S62.619A Displaced fracture of proximal phalanx of unspecified finger, initial encounter for closed fracture (principal)
CPT/HCPCS: 73130

== ENCOUNTER → 2020-05-23 10:06 | Outpatient (CLI) | payer MEDICARE, MEDICAID, SELFPAY ==
[2020-05-02 13:41] VITALS: BMI 39.9
--- NOTE | 2020-05-23 10:07 | RAD_ITS ---
STUDY: X-RAY - LEFT HAND REASON FOR EXAM: Female, 69 years old. Pain. Fifth proximal phalanx fracture. TECHNIQUE: 3 view(s) of the hand. COMPARISON: 05/02/20 FINDINGS: There is a stable nondisplaced fracture at the base of the fifth proximal phalanx. The remainder of the visualized osseous structures are intact. There are stable degenerative changes at the base of the thumb. There are no radiodense foreign bodies. RAD/Hand Min 3 Views IMPRESSION: Stable nondisplaced fracture at the base of the fifth proximal phalanx. No new fracture. Stable degenerative changes at the base of the thumb. Electronically Signed: Manjit Meza, at 18:26 EDT Tel , Service support ,
== END ==
PROVIDERS: PCP Internal Medicine; Referring Provider Orthopaedic Surgery; Visit Provider Orthopaedic Surgery
DX: S62.647D Nondisplaced fracture of proximal phalanx of left little finger, subsequent encounter for fracture with routine healing (principal)
CPT/HCPCS: 73130

== ENCOUNTER → 2020-07-11 16:08 | Outpatient (CLI) | payer MEDICARE, MEDICAID, SELFPAY ==
[2020-05-23 10:07] VITALS: BMI 39.9
[2020-07-11 18:14] LABS: Valproic Acid (Depakene) Level 48 ug/mL (50-100)
== END ==
PROVIDERS: PCP Internal Medicine
DX: F31.81 Bipolar II disorder (principal)
CPT/HCPCS: 36415; 80164; 82140

== ENCOUNTER → 2020-10-02 11:40 | Outpatient (CLI) | payer MEDICARE, MEDICAID, SELFPAY ==
[2020-10-02 15:27] LABS: Absolute Lymphocyte Count 2.05 X10^3/uL (0.83-4.51); Absolute Neutrophil Count 7.3 X10^3/uL (2.0-7.7); Basophil# 0.06 X10^3/uL; Basophil% 0.6 % (0-1); Eosinophil# 0.21 X10^3/uL; Hematocrit 46.9 % (37-47); Hemoglobin 15.2 g/dL (12.0-15.0); Lymphocyte # 2.05 X10^3/ul (4.0); Lymphocyte % 19.7 % (19-41); Mean Corp Hgb Conc 32.4 g/dL (32-36); Mean Corpuscular Hgb 30.7 pg (27.0-32.0); Mean Corpuscular Volume 94.7 fL (81-99); Mean Platelet Vol. 10.2 fl (6.2-12.0); Monocyte# 0.73 X10^3/uL; NRBC Flagged by Analyzer 0 % (0-5); Platelet Count 436 K/mm3 (150-450); RBC Distribution Width CV 13.3 % (11.6-14.6); RBC Distribution Width SD 46.1 fl (35.1-43.9); Red Blood Count 4.95 M/mm3 (4.2-5.4); White Blood Count 10.4 K/mm3 (4.4-11.0)
[2020-10-02 15:37] LABS: ALB/GLOB Ratio 0.9 RATIO (0.9-2.4); AST(SGOT) 33 U/L (15-37); Alanine Aminotransfer ALT/SGPT 41 U/L (13-56); Albumin, Serum 3.3 g/dL (3.2-5.0); Alkaline Phosphatase 111 U/L (45-117); Anion Gap 5 (5-15); BUN 15 mg/dL (7-18); Calcium,Total 8.8 mg/dL (8.5-10.1); Chloride 105 mmol/L (98-107); Creatinine, Serum 0.68 mg/dL (0.55-1.02); EST Glomerular Filtration Rate 91 mL/min (>60); Est Glom Filt Rate - Afr Amer 110 mL/min (>60); Globulin 3.7 g/dL (2.2-4.2); Glucose 92 mg/dL (74-106); Potassium 4.1 mmol/L (3.5-5.1); Sodium Level 139 mmol/L (136-145)
== END ==
PROVIDERS: PCP Internal Medicine; Referring Provider Internal Medicine; Visit Provider Internal Medicine
DX: I10 Essential (primary) hypertension (principal)
CPT/HCPCS: 36415; 80053; 85025

== ENCOUNTER 2020-11-15 20:48 | Emergency (ER) | payer MEDICARE, MEDICAID, SELFPAY ==
[2020-10-09 13:23] VITALS: BMI 38.4
[2020-11-15 20:49] VITALS: BP 185/95; PULSE 74; RESP 16; TEMP 36.6; O2SAT 95; BMI 34.7
--- NOTE | 2020-11-15 22:18 | EKG12_ITS ---
Test Reason : DYSRHYTHMIA Blood Pressure : / mmHG Vent. Rate : 066 BPM Atrial Rate : 066 BPM P-R Int : 194 ms QRS Dur : 086 ms QT Int : 398 ms P-R-T Axes : 070 074 065 degrees QTc Int : 417 ms Normal sinus rhythm Normal ECG Confirmed by ROBINA SEALS, SPEEDY ([id number]), recruiting and selection consultant ROXANNE RYAN ([id number]) on 11/19/2020 10:51:35 AM Referred By: [email or web address] Confirmed By:CECILE QUARLES MD
--- NOTE | 2020-11-15 22:34 | ED.VIS.GEN ---
History of Present Illness Chief Complaint: Hypertension Informant: Patient Onset: Today Context: Gradual Onset Timing: Continuous Current Severity: Mild Maximum Severity: Mild Narrative: Patient is a 62-year-old female with medical history significant for arthritis and hypertension who presents to the emergency department with elevated blood pressure. Patient states she was seen in the office by her primary care last week. She states that in addition to her antihypertensives, she was started on amlodipine and her hydralazine was increased. She states that today, she felt like she was having a exacerbation of her pain. She is on Subutex. She states that she is had significant joint pain. She took her blood pressure and it was 180. She denies headache, visual change, chest pain, shortness of breath. She states she is otherwise been in her normal state of health. Prior similar symptoms: Yes Recent Illness/Hospitalization: No Past Medical History - Allergies and Home Meds Allergies/Adverse Reactions: Allergies iloperidone [From Fanapt] Allergy (Verified 11/15/20 21:47) Other CAUSES PT TO NOT WALK OR SPEAK lurasidone [From Latuda] Allergy (Verified 11/15/20 21:47) Other paliperidone [From Invega] Allergy (Verified 11/15/20 21:47) increased psychiatric symptoms trazodone Allergy (Verified 11/15/20 21:47) Other theophylline Adverse Reaction (Verified 11/15/20 21:47) Other SLOBID Adverse Reaction (Uncoded 11/15/20 21:47) Other Primary Care Physician: Esperanza Baird MD [Primary Care Provider] - Prior records reviewed: Yes Past Medical History: - Surgical History: cholecystectomy, hysterectomy, - - C-sections - 3, abdominal hysterectomy, hernia repair with mesh?. Smoking Status: Current every day smoker - Family History Maternal Family History: Family History (Last Reviewed 10/09/20 @ 13:22 by Laura Good) Brother Colon cancer Lung cancer Aunt Obesity Sister Obesity Mother Rheumatoid arthritis Father Alzheimer disease Brother Alzheimer disease Family History: Reports: No pertinent history Paternal Family History: Family History (Last Reviewed 10/09/20 @ 13:22 by Laura Good) Brother Colon cancer Lung cancer Aunt Obesity Sister Obesity Mother Rheumatoid arthritis Father Alzheimer disease Brother Alzheimer disease Family History: Reports: No pertinent history Sibling Family History: Family History (Last Reviewed 10/09/20 @ 13:22 by Laura Good) Brother Colon cancer Lung cancer Aunt Obesity Sister Obesity Mother Rheumatoid arthritis Father Alzheimer disease Brother Alzheimer disease Family History: Reports: Cancer Review of Systems ROS: - Hypertension General: Denies: Chills, Fever, Sweats Eyes: Denies: Visual changes - bilaterally, Diplopia ENT: Denies: Rhinorrhea, Sore throat Cardiovascular: Denies: Chest pain, Palpitations Respiratory: Denies: Dyspnea, Cough, Dyspnea on exertion Gastrointestinal: Denies: Abdominal pain, Nausea, Vomiting, Diarrhea, Melena, Hematochezia Genitourinary: Denies: Dysuria, Hematuria, Frequency Musculoskeletal: Reports: Myalgias, Arthralgias. Denies: Back pain, Extremity Pain Skin: Denies: Rash, Wounds Neurological: Denies: Headache, Weakness, Numbness Physical Exam Vital Signs/Narrative: Vital Signs Temp Pulse Resp BP Pulse Ox 11/15/20 20:49 98 F 74 16 185/95 H 95 Inital Vital Signs reviewed: Yes General: Well nourished, Well developed, No Acute Distress Head: Normocephalic, Atraumatic Eyes: Perrl, EOMI ENT: Moist mucous membranes, No rhinorrhea Neck: Supple, Nontender Cardiovascular: Regular rate, Regular rhythm, No murmurs Respiratory: No distress, CTA bilaterally, Chest nontender Abdomen: Soft, Nontender, Nondistended, Normal bowel sounds Back: Nontender, Normal Inspection Extremities: Nontender, No edema Skin: Normal color, No rash Neurological: Alert, Oriented x3, Cranial nerves II-XII grossly intact, Normal Strength, Normal Sensation Psychological: Normal affect, Normal Mood Diagnostic/Tx/Re-eval Abnormal Lab Results 11/15/20 11/15/20 22:25 22:25 WBC 9.6 RBC 4.49 Hgb 13.7 Hct 42.8 MCV 95.3 MCH 30.5 MCHC 32.0 RDW Std Deviation 48.1 H RDW Coeff of Tami 13.7 Plt Count 401 MPV 9.5 Immature Gran % (Auto) 1.200 H Neut % (Auto) 63.2 Lymph % (Auto) 24.0 [place] % (Auto) 9.1 Eos % (Auto) 2.2 Baso % (Auto) 0.3 Absolute Neuts (auto) 6.1 Absolute Lymphs (auto) 2.31 Nucleated RBC % 0 Sodium 140 Potassium 4.7 Chloride 105 Carbon Dioxide 31.0 Anion Gap 4 L BUN 20 H Creatinine 0.78 Estim Creat Clear Calc 42.59 Est GFR (MDRD) Af Amer 94 Est GFR (MDRD) Non-Af 78 BUN/Creatinine Ratio 25.5 H Glucose 96 Calcium 9.5 Total Bilirubin 0.30 AST 20 ALT 33 Alkaline Phosphatase 93 Total Protein 6.9 Albumin 3.4 Globulin 3.5 Albumin/Globulin Ratio 1.0 - Rhythm Strip Rhythm Strip: Sinus Rhythm Rate: 80 Ectopy: None - EKG Initial EKG Interpretation: Sinus Rhythm, No Acute Injury Pattern Prior: Unchanged - Medical Decision Making The patient presents with elevated blood pressure. She is also having a bout of her arthritis pain. My suspicion is that her elevation in blood pressure is likely secondary to her pain. She is had no chest pain, shortness of breath, visual change, or other concerning symptoms for hypertensive emergency. The patient was treated with Tylenol and Toradol. Her blood pressure did normalize to her normal levels. Screening labs were unremarkable. EKG was unchanged. Patient is feeling improved. At this point, she will be discharged home. Impression 1. Hypertension 2. Exacerbation of arthritis pain ED Disposition - Plan for ED Patient: Disposition: Home or Assisted Living Instructions: ED Hypertension, Established Referrals: Esperanza Baird MD [Primary Care Provider] -
[2020-11-15 22:52] LABS: Absolute Lymphocyte Count 2.31 X10^3/uL (0.83-4.51); Absolute Neutrophil Count 6.1 X10^3/uL (2.0-7.7); Basophil# 0.03 X10^3/uL; Basophil% 0.3 % (0-1); Eosinophil# 0.21 X10^3/uL; Eosinophils% 2.2 % (0-5); Hematocrit 42.8 % (37-47); Hemoglobin 13.7 g/dL (12.0-15.0); Lymphocyte # 2.31 X10^3/ul (4.0); Mean Corpuscular Hgb 30.5 pg (27.0-32.0); Mean Corpuscular Volume 95.3 fL (81-99); Mean Platelet Vol. 9.5 fl (6.2-12.0); Monocyte# 0.87 X10^3/uL; Monocyte% 9.1 % (0-10); NRBC Flagged by Analyzer 0 % (0-5); Neutrophil # 6.07 X10^3/uL (2.7-7.7); Neutrophil % 63.2 % (47-70); Platelet Count 401 K/mm3 (150-450); RBC Distribution Width CV 13.7 % (11.6-14.6); RBC Distribution Width SD 48.1 fl (35.1-43.9); Red Blood Count 4.49 M/mm3 (4.2-5.4); White Blood Count 9.6 K/mm3 (4.4-11.0)
[2020-11-15] MEDS: Acetaminophen 500 MG Tablet 1000 MG PO (23:06)
[2020-11-15] MEDS: Ketorolac 30 MG/ML Syringe IV (23:06)
[2020-11-15 23:09] LABS: AST(SGOT) 20 U/L (15-37); Alanine Aminotransfer ALT/SGPT 33 U/L (13-56); Albumin, Serum 3.4 g/dL (3.2-5.0); Alkaline Phosphatase 93 U/L (45-117); Anion Gap 4 (5-15); BUN 20 mg/dL (7-18); BUN/Creat Ratio 25.5 RATIO (10-20); Calcium,Total 9.5 mg/dL (8.5-10.1); Chloride 105 mmol/L (98-107); Creatinine, Serum 0.78 mg/dL (0.55-1.02); EST Glomerular Filtration Rate 78 mL/min (>60); Est Glom Filt Rate - Afr Amer 94 mL/min (>60); Estimated Creatinine Clearance 42.59 ml/min; Globulin 3.5 g/dL (2.2-4.2); Glucose 96 mg/dL (74-106); Potassium 4.7 mmol/L (3.5-5.1); Protein, Total 6.9 g/dL (6.4-8.2); Sodium Level 140 mmol/L (136-145)
[2020-11-15 23:27] VITALS: BP 132/85; PULSE 72; RESP 18; O2SAT 95
== END 2020-11-15 23:36 | disposition home or self-care (01) ==
LOC: ED 22:48
PROVIDERS: Emergency Provider Emergency Medicine; PCP Internal Medicine
DX: M19.90 Unspecified osteoarthritis, unspecified site (principal); I10 Essential (primary) hypertension; F17.200 Nicotine dependence, unspecified, uncomplicated; Z79.899 Other long term (current) drug therapy
CPT/HCPCS: 80053; 85025; 93005; 96374; 99285; A4216

== ENCOUNTER 2020-11-29 09:47 | Emergency (ER) | payer MEDICARE, MEDICAID, SELFPAY ==
[2020-11-26 10:24] VITALS: BMI 34.7
[2020-11-29 09:51] VITALS: BP 138/94; PULSE 87; RESP 16; TEMP 36.6; O2SAT 96; BMI 41.1
--- NOTE | 2020-11-29 09:53 | CT_ITS ---
STUDY: CT BRAIN WITHOUT CONTRAST REASON FOR EXAM: Female, 70 years old. FALL X 3 RADIATION DOSAGE (If Supplied By Facility): CTDIvol = ( 44.99 ) mGy, DLP = ( 779.24 ) mGycm TECHNIQUE: Transaxial CT imaging of the brain was performed without administration of intravenous contrast material. Individualized dose optimization techniques were used for this CT. COMPARISON: 12/29/2018 FINDINGS: Normal soft tissue structures. Normal calvarium. There is mild cerebral atrophy with widening of the extra-axial spaces and ventricular dilatation. There are areas of decreased attenuation within the white matter tracts of the supratentorial brain, consistent with microvascular disease changes. Normal basal ganglia and thalami. Normal brainstem. Normal cerebellum. There is no intracranial hemorrhage. There are no findings of an acute ischemic infarction. Normal visualized paranasal sinuses. CT/Brain/Head without Contrast IMPRESSION: Chronic involutional changes of the brain. Electronically Signed: Santiago Frias MD at 11:04 EST Tel , Service support ,
--- NOTE | 2020-11-29 09:55 | CT_ITS ---
STUDY: CT LUMBAR SPINE WITHOUT CONTRAST REASON FOR EXAM: Female, 70 years old. FALL X 3., LOW BACK PAIN RADIATION DOSAGE (If Supplied By Facility): CTDIvol = ( 44.65 ) mGy, DLP = ( 1208.23 ) mGycm TECHNIQUE: The patient was scanned in a multi detector CT scanner. High resolution transaxial imaging was performed. Images were obtained from T12 to S1. Sagittal and coronal images were reconstructed. Individualized dose optimization techniques were used for this CT. COMPARISON: X-ray 12/31/2017 FINDINGS: Normal lumbar lordosis. Mild levoscoliosis centered at L2. Normal vertebrae of the lumbar spine. L1-2: Normal endplates. Normal disc height and morphology. Normal bilateral facet joints. Normal central canal and bilateral lateral recesses. Normal bilateral intervertebral neural foramina. L2-3: Mild bilateral facet hypertrophy. 2 mm retrolisthesis of L2 on L3 with a mild bilobed disc protrusion produces mild spinal stenosis, and moderate bilateral neural foraminal stenosis. L3-4: Mild bilateral facet hypertrophy and ligament flavum hypertrophy. Mild bilobed disc protrusion produces mild spinal stenosis and mild bilateral neural foraminal stenosis. L4-5: Moderate by lateral facet hypertrophy and mild ligament flavum hypertrophy. 2 mm of anterolisthesis of L4 and L5 with a mild broad disc protrusion produces mild spinal stenosis and mild bilateral neural foraminal stenosis. L5-S1: Mild bilateral facet hypertrophy. Mild broad disc osteophyte complex with vacuum disc formation produces mild spinal stenosis and moderate by lateral neural foraminal stenosis. Normal visualized paraspinous soft tissue structures. CT/Spine Lumbar without Contrast IMPRESSION: No acute fracture or subluxation. Electronically Signed: Santiago Frias MD at 11:09 EST Tel , Service support ,
--- NOTE | 2020-11-29 09:57 | ED.VIS.GEN ---
History of Present Illness Chief Complaint: Fall Informant: Patient Onset: Today Narrative: 70-year-old female with extensive past medical history presents with concern for fall. Patient states that she fell 2 days ago while walking to her car. States that she injured her back. States that she struck her head without loss of consciousness. States she has been having difficulty walking since that time. Dates that she has extensive medical care that comes into the home to help her. Is concerned because she only has 1 knee brace. Patient is not on anticoagulation. Past Medical History - Allergies and Home Meds Allergies/Adverse Reactions: Allergies iloperidone [From Fanapt] Allergy (Verified 11/15/20 21:47) Other CAUSES PT TO NOT WALK OR SPEAK lurasidone [From Latuda] Allergy (Verified 11/15/20 21:47) Other paliperidone [From Invega] Allergy (Verified 11/15/20 21:47) increased psychiatric symptoms trazodone Allergy (Verified 11/15/20 21:47) Other theophylline Adverse Reaction (Verified 11/15/20 21:47) Other SLOBID Adverse Reaction (Uncoded 11/15/20 21:47) Other Primary Care Physician: Esperanza Baird MD [Primary Care Provider] - 2 Days Prior records reviewed: Yes Past Medical History: - - HTN, HLD, bipolar Surgical History: cholecystectomy, hysterectomy, - Lives: Alone Smoking Status: Current every day smoker Alcohol: None Drugs: None - Family History Maternal Family History: Family History (Last Reviewed 10/09/20 @ 13:22 by Laura Good) Brother Colon cancer Lung cancer Aunt Obesity Sister Obesity Mother Rheumatoid arthritis Father Alzheimer disease Brother Alzheimer disease Family History: Reports: No pertinent history Paternal Family History: Family History (Last Reviewed 10/09/20 @ 13:22 by Laura Good) Brother Colon cancer Lung cancer Aunt Obesity Sister Obesity Mother Rheumatoid arthritis Father Alzheimer disease Brother Alzheimer disease Family History: Reports: No pertinent history Sibling Family History: Family History (Last Reviewed 10/09/20 @ 13:22 by Laura Good) Brother Colon cancer Lung cancer Aunt Obesity Sister Obesity Mother Rheumatoid arthritis Father Alzheimer disease Brother Alzheimer disease Family History: Reports: Cancer Review of Systems General: Denies: Chills, Fever, Sweats Eyes: Denies: Visual changes - bilaterally, Diplopia ENT: Denies: Rhinorrhea, Sore throat Cardiovascular: Denies: Chest pain, Palpitations Respiratory: Denies: Dyspnea, Cough, Dyspnea on exertion Gastrointestinal: Denies: Abdominal pain, Nausea, Vomiting, Diarrhea, Melena, Hematochezia Genitourinary: Denies: Dysuria, Hematuria, Frequency Musculoskeletal: Reports: Back pain. Denies: Extremity Pain Skin: Denies: Rash, Wounds Neurological: Reports: Weakness. Denies: Headache, Numbness Physical Exam Vital Signs/Narrative: Vital Signs Temp Pulse Resp BP Pulse Ox 11/29/20 09:51 97.9 F 87 16 138/94 H 96 Inital Vital Signs reviewed: Yes General: Well nourished, Well developed, No Acute Distress Head: Normocephalic, Atraumatic Eyes: Perrl, EOMI ENT: Moist mucous membranes, No rhinorrhea Neck: Supple, Nontender Cardiovascular: Regular rate, Regular rhythm, No murmurs Respiratory: No distress, CTA bilaterally, Chest nontender Abdomen: Soft, Nontender, Nondistended, Normal bowel sounds Back: Normal Inspection, - - TTP in the bilateral lower back. No midline tenderness. Extremities: Nontender, No edema Skin: Normal color, No rash Neurological: Alert, Oriented x3, Cranial nerves II-XII grossly intact, Normal Strength, Normal Sensation Psychological: Normal affect, Normal Mood Diagnostic/Tx/Re-eval Chest X-Ray - ED: 1 View, Read by ED Physician, Read by Radiologist, Normal Clinical Impression(s) from Imaging Studies Brain CT 11/29/20 09:53 IMPRESSION: Chronic involutional changes of the brain. Electronically Signed: Santiago Frias MD at 11:04 EST Tel , Service support , Lumbar Spine CT 11/29/20 09:55 IMPRESSION: No acute fracture or subluxation. Electronically Signed: Santiago Frias MD at 11:09 EST Tel , Service support , Chest X-Ray 11/29/20 10:45 IMPRESSION: Normal x-ray examination of the chest. Electronically Signed: Santiago Frias MD at 11:08 EST Tel , Service support , Laboratory Data 11/29/20 11/29/20 11/29/20 10:24 10:24 11:45 WBC 10.5 RBC 4.48 Hgb 14.1 Hct 41.9 MCV 93.5 MCH 31.5 MCHC 33.7 RDW Std Deviation 48.1 H RDW Coeff of Tami 13.9 Plt Count 500 H MPV 9.1 Immature Gran % (Auto) 1.400 H Neut % (Auto) 71.4 H Lymph % (Auto) 17.2 L [place] % (Auto) 8.1 Eos % (Auto) 1.4 Baso % (Auto) 0.5 Absolute Neuts (auto) 7.5 Absolute Lymphs (auto) 1.81 Nucleated RBC % 0 Sodium 133 L Potassium 4.9 Chloride 102 Carbon Dioxide 27.0 Anion Gap 4 L BUN 37 H Creatinine 1.10 H Estim Creat Clear Calc 38.71 Est GFR (MDRD) Af Amer 64 Est GFR (MDRD) Non-Af 52 L BUN/Creatinine Ratio 33.6 H Glucose 91 Calcium 9.3 Total Bilirubin 0.30 AST 31 ALT 39 Alkaline Phosphatase 95 Troponin I < 0.015 Total Protein 7.3 Albumin 3.7 Globulin 3.6 Albumin/Globulin Ratio 1.0 Urine Color Yellow Urine Clarity Clear Urine pH 7.0 Ur Specific [place] 1.010 Urine Protein Negative Urine Glucose (UA) Normal Urine Ketones Negative Urine Occult Blood 10 H Urine Nitrite Negative Urine Bilirubin Negative Urine Urobilinogen Normal Ur Leukocyte Esterase Negative Urine RBC 0 SEEN Urine WBC 0 SEEN Ur Squamous Epith Cells 0 SEEN Urine Bacteria 0 SEEN Urine Mucus 0 SEEN - Rhythm Strip Rhythm Strip: Sinus Rhythm Rate: 70 Ectopy: None - EKG Initial EKG Interpretation: Sinus Rhythm - Normal sinus rhythm at 70 bpm. MI interval of 188 ms. QTC of 416 ms. No evidence of ST elevation or depression at this time. - Medical Decision Making Appears well and nontoxic. Vital signs within normal limits. Lab work shows significant abnormalities. Chest x-ray interpreted by myself shows no cardiomegaly or infiltrates. CT brain negative. CT lumbar spine negative. Patient has no evidence of UTI. Patient ambulatory within the department. After extensive discussion with the patient she has adequate care at home. Daughter is at the bedside and agrees and she will be discharged home in stable condition. Asked to return for new or worsening symptoms. Stable at time of discharge. Impression: 1. Mechanical fall 2. Lumbar contusion 3. Closed head injury ED Disposition - Plan for ED Patient: Disposition: Home or Assisted Living Instructions: ED Fall with Uncertain Cause, ED Fall Prevention Referrals: Esperanza Baird MD [Primary Care Provider] - 2 Days
[2020-11-29 10:41] LABS: Absolute Lymphocyte Count 1.81 X10^3/uL (0.83-4.51); Absolute Neutrophil Count 7.5 X10^3/uL (2.0-7.7); Basophil# 0.05 X10^3/uL; Basophil% 0.5 % (0-1); Eosinophil# 0.15 X10^3/uL; Eosinophils% 1.4 % (0-5); Hematocrit 41.9 % (37-47); Hemoglobin 14.1 g/dL (12.0-15.0); Lymphocyte # 1.81 X10^3/ul (4.0); Lymphocyte % 17.2 % (19-41); Mean Corp Hgb Conc 33.7 g/dL (32-36); Mean Corpuscular Hgb 31.5 pg (27.0-32.0); Mean Corpuscular Volume 93.5 fL (81-99); Mean Platelet Vol. 9.1 fl (6.2-12.0); Monocyte# 0.85 X10^3/uL; Monocyte% 8.1 % (0-10); NRBC Flagged by Analyzer 0 % (0-5); Neutrophil # 7.51 X10^3/uL (2.7-7.7); Neutrophil % 71.4 % (47-70); Platelet Count 500 K/mm3 (150-450); RBC Distribution Width CV 13.9 % (11.6-14.6); RBC Distribution Width SD 48.1 fl (35.1-43.9); Red Blood Count 4.48 M/mm3 (4.2-5.4); White Blood Count 10.5 K/mm3 (4.4-11.0)
--- NOTE | 2020-11-29 10:45 | RAD_ITS ---
STUDY: X-RAY CHEST REASON FOR EXAM: Female, 70 years old. Weakness, fell TECHNIQUE: Single AP portable view of the chest. COMPARISON: 12/14/2019 FINDINGS: The lungs are clear and expanded. There is no demonstrated pleural abnormality. Normal size heart. Normal mediastinum and jairo. Normal visualized pulmonary arteries. Normal visualized aortic arch and descending thoracic aorta. Normal visualized thoracic spine. Normal visualized ribs, clavicles, and shoulders. There is no demonstrated abnormality of the visualized soft tissue structures of the upper abdomen. RAD/Chest 1 View (Portable) IMPRESSION: Normal x-ray examination of the chest. Electronically Signed: Santiago Frias MD at 11:08 EST Tel , Service support ,
[2020-11-29 11:07] LABS: AST(SGOT) 31 U/L (15-37); Alanine Aminotransfer ALT/SGPT 39 U/L (13-56); Albumin, Serum 3.7 g/dL (3.2-5.0); Alkaline Phosphatase 95 U/L (45-117); Anion Gap 4 (5-15); BUN 37 mg/dL (7-18); BUN/Creat Ratio 33.6 RATIO (10-20); Calcium,Total 9.3 mg/dL (8.5-10.1); Chloride 102 mmol/L (98-107); EST Glomerular Filtration Rate 52 mL/min (>60); Est Glom Filt Rate - Afr Amer 64 mL/min (>60); Estimated Creatinine Clearance 38.71 ml/min; Globulin 3.6 g/dL (2.2-4.2); Glucose 91 mg/dL (74-106); Potassium 4.9 mmol/L (3.5-5.1); Protein, Total 7.3 g/dL (6.4-8.2); Sodium Level 133 mmol/L (136-145)
[2020-11-29 11:59] LABS: Bacteria 0 SEEN /hpf (None Seen); Mucous, Urine 0 SEEN /hpf (<or=2+); Red Blood Cells-Urine 0 SEEN /hpf (0-5); Squamous Epithelial Cells - UA 0 SEEN /hpf (5-10); White Blood Cells 0 SEEN /hpf (0-5)
[2020-11-29 12:00] LABS: Color, Urine Yellow (Yellow); Glucose, Dipstick Normal (Normal); Ketone-Dipstick Negative (Negative); Leukocyte Esterase-Dipstick Negative /ul (Negative); Nitrite-Dipstick Negative (Negative); Occult Blood-Urine 10 /ul (Negative); Protein-Dipstick Negative (Negative); Urine Bilirubin Dipstick Negative (Negative); Urine Clarity Clear (Clear); Urine Urobilinogen Normal (Normal)
== END 2020-11-29 12:55 | disposition home or self-care (01) ==
PROVIDERS: Emergency Provider Emergency Medicine; PCP Internal Medicine
DX: S30.0XXA Contusion of lower back and pelvis, initial encounter (principal); S09.90XA Unspecified injury of head, initial encounter; E78.5 Hyperlipidemia, unspecified; I10 Essential (primary) hypertension; F17.200 Nicotine dependence, unspecified, uncomplicated; W18.30XA Fall on same level, unspecified, initial encounter; Y93.89 Activity, other specified; Y92.89 Other specified places as the place of occurrence of the external cause; Y99.8 Other external cause status
CPT/HCPCS: 70450; 71045; 72131; 80053; 81001; 84484; 85025; 93005; 96360; 99285; J7030; A4216

== ENCOUNTER 2020-12-03 20:11 | Emergency (ER) | payer MEDICARE, MEDICAID, SELFPAY ==
[2020-12-03] VITALS (8 sets, daily range): BP systolic 88–115; BP diastolic 53–70; PULSE 66–80; RESP 15–18; TEMP 36.2–36.7; O2SAT 89–96; BMI 38.0; BMI 36.7
--- NOTE | 2020-12-03 20:42 | EKG12_ITS ---
Test Reason : Blood Pressure : / mmHG Vent. Rate : 072 BPM Atrial Rate : 072 BPM P-R Int : 182 ms QRS Dur : 098 ms QT Int : 398 ms P-R-T Axes : 070 072 069 degrees QTc Int : 435 ms Normal sinus rhythm Normal ECG Confirmed by JOSE SEALS, DIEGO ([id number]), communications editor JESUS RUIZ ([id number]) on 12/06/2020 1:42:35 PM Referred By: GOLDEN Confirmed By:DIEGO GARCIA MD
[2020-12-03] MEDS: 0.9% Normal Saline 1,000 ML 999 ML IV ×2 (21:00→22:44)
[2020-12-03 21:03] LABS: Absolute Lymphocyte Count 2.16 X10^3/uL (0.83-4.51); Absolute Neutrophil Count 5.3 X10^3/uL (2.0-7.7); Basophil# 0.03 X10^3/uL; Basophil% 0.4 % (0-1); Eosinophil# 0.15 X10^3/uL; Eosinophils% 1.8 % (0-5); Hematocrit 38.6 % (37-47); Hemoglobin 12.9 g/dL (12.0-15.0); Lymphocyte # 2.16 X10^3/ul (4.0); Mean Corp Hgb Conc 33.4 g/dL (32-36); Mean Corpuscular Hgb 31.4 pg (27.0-32.0); Mean Corpuscular Volume 93.9 fL (81-99); Mean Platelet Vol. 9.3 fl (6.2-12.0); Monocyte# 0.67 X10^3/uL; Monocyte% 8.1 % (0-10); NRBC Flagged by Analyzer 0 % (0-5); Neutrophil # 5.25 X10^3/uL (2.7-7.7); Platelet Count 424 K/mm3 (150-450); RBC Distribution Width CV 13.6 % (11.6-14.6); RBC Distribution Width SD 46.7 fl (35.1-43.9); Red Blood Count 4.11 M/mm3 (4.2-5.4); White Blood Count 8.3 K/mm3 (4.4-11.0)
[2020-12-03 21:15] LABS: International Normalized Ratio 1.1; Prothrombin Time (Protime)PT. 13.2 SECONDS (11.7-14.9)
--- NOTE | 2020-12-03 21:15 | RAD_ITS ---
STUDY: X-RAY CHEST REASON FOR EXAM: Female, 70 years old. patient in manic state TECHNIQUE: Frontal view COMPARISON: 11/29/2020 FINDINGS: The lungs are expanded. Right basilar atelectasis. Normal size heart. Normal mediastinum. Right hilar calcified nodes. Normal visualized pulmonary arteries. Normal visualized aortic arch and descending thoracic aorta. Degenerative changes of the thoracic spine. Normal visualized ribs, clavicles, and shoulders. There is no demonstrated abnormality of the visualized soft tissue structures of the upper abdomen. RAD/Chest 1 View (Portable) IMPRESSION: Right basilar atelectasis. Electronically Signed: Porter Rudd DO at 22:38 EST Tel [phone], Service support ,
[2020-12-03 21:18] LABS: ALB/GLOB Ratio 1.1 RATIO (0.9-2.4); AST(SGOT) 30 U/L (15-37); Alanine Aminotransfer ALT/SGPT 35 U/L (13-56); Albumin, Serum 3.6 g/dL (3.2-5.0); Alkaline Phosphatase 84 U/L (45-117); Anion Gap 6 (5-15); BUN 37 mg/dL (7-18); BUN/Creat Ratio 30.6 RATIO (10-20); Calcium,Total 8.9 mg/dL (8.5-10.1); Chloride 101 mmol/L (98-107); Creatinine, Serum 1.21 mg/dL (0.55-1.02); EST Glomerular Filtration Rate 47 mL/min (>60); Est Glom Filt Rate - Afr Amer 57 mL/min (>60); Estimated Creatinine Clearance 35.19 ml/min; Globulin 3.4 g/dL (2.2-4.2); Glucose 104 mg/dL (74-106); Potassium 4.5 mmol/L (3.5-5.1); Sodium Level 135 mmol/L (136-145)
[2020-12-03 21:20] LABS: Alcohol, Blood (Medical)-Serum < 3.0 mg/dL
[2020-12-03 21:21] LABS: Bacteria 0 SEEN /hpf (None Seen); Mucous, Urine 0 SEEN /hpf (<or=2+)
--- NOTE | 2020-12-03 21:24 | ED.DCSUM_ITS ---
- ER Visit Summary Date of Service: 12/03/20 Chief Complaint: I am tired History of Present Illness: The patient is a [address] Baird. Patient reports I was manic 2 hours ago and now I am tired. I want to know what is going on. Patient denies any fever or chills. No sore throat or cough. No chest pain or shortness of breath. No abdominal pain, nausea, vomiting, diarrhea. No dysuria or frequency. No rash. No headache. She does complain of generalized weakness. Physical Examination: Vitals: 97.2, 88/53, 80, 17, 95% on room air which is not hypoxic. General: Well-nourished and well-developed. Head: Normocephalic atraumatic. Neck: Supple, no lymphadenopathy. No JVD. Nontender. Cardiovascular: Regular rate and rhythm. No murmurs. Respiratory: No respiratory distress. Clear to auscultation bilaterally. Abdominal: Soft, nontender, nondistended, normal bowel sounds. No guarding, rebound, or peritoneal signs. Back: Nontender. Extremities: Nontender, no edema. Skin: Normal color, no rash. Neurologic: Alert and oriented ?3. Cranial nerves II through XII are intact. Normal strength and sensation. Psych: Labile. No suicidal or homicidal ideation. No auditory or visual hallucinations. She is not internally stimulated. No flight of ideas or press ured speech. Test Results: EKG is sinus at [address] changes. Is unchanged from last month. Troponin is negative. Lactic acid is normal. UA is negative. LFTs are normal. Depakote is 89. INR is 1.1. PTT is 29.0. Chem-7 shows a sodium 135, BUN 37, creatinine 1.21. Creatinine ranged from 0.68?1.21 in 2019. CBC is normal. Tox screen is negative. Alcohol is negative. Covid is negative. Clinical Impression(s) from Imaging Studies Chest X-Ray 12/03/20 21:15 IMPRESSION: Right basilar atelectasis. Electronically Signed: Porter Rudd DO at 22:38 EST Tel [phone], Service support , Chest CTA 02/15/21 22:29 IMPRESSION: Normal CTA chest examination, without a demonstrated pulmonary embolism, aortic aneurysm, or aortic dissection. Atherosclerosis. Old granulomatous disease. No evidence for acute cardiopulmonary pathology. Electronically Signed: Kevin Hansen MD at 0:32 EST , Service support , Emergency Department Course and Treatment: Patient had blood pressure repeated multiple times and it remained in the 80s to 90s. She was given 2 L of normal saline. Her blood pressure has increased to 108/60. She has a history of hypertension. Prior to obtaining IV access or the patient getting fluids her pulse ox was 88% on room air. She denies a history of COPD and she is not wheezing. However, with her hypoxia she was given albuterol and Atrovent aerosols as well as Solu- Medrol IV. Patient reports that she is not on home O2. She has never been hypoxic on chart review of her prior vital signs. Patient cannot be medically cleared for psychiatric care. She is also requiring oxygen at this time and will require admission to the hospital. Treatment Plan: Patient was discussed with Dr. Vegas. She will be admitted to the hospital for further evaluation and treatment. Disposition: Admitted in improved condition. Impression: 1. Hypotension. 2. Hypoxia. 3. Bipolar disorder. 4. COPD exacerbation. This note was generated with [employer] software. It may contain incorrect words, spelling, and punctuation that were not noted in review of the chart prior to signing ED Disposition - Plan for ED Patient: Referrals: Esperanza Baird MD [Primary Care Provider] -
[2020-12-03 21:29] LABS: Color, Urine Yellow (Yellow); Glucose, Dipstick Normal (Normal); Ketone-Dipstick 5 mg/dl (Negative); Leukocyte Esterase-Dipstick 25 /ul (Negative); Nitrite-Dipstick Negative (Negative); Occult Blood-Urine 10 /ul (Negative); Protein-Dipstick Negative (Negative); Specific Gravity, Urine 1.015 (1.002-1.030); Urine Bilirubin Dipstick Negative (Negative); Urine Clarity Sl. Cloudy (Clear); Urine Urobilinogen 1 mg/dl (Normal)
[2020-12-03 21:29] LABS: Valproic Acid (Depakene) Level 89 ug/mL (50-100)
[2020-12-03 21:30] LABS: Lactic Acid 0.9 mmol/L (0.4-1.9)
[2020-12-03 21:31] LABS: Amphetamine Urine VISTA NEGATIVE (<1000 ng/mL); Barbiturate Urine VISTA NEGATIVE (< 200 ng/mL); Benzodiazepine Urine VISTA NEGATIVE (< 200 ng/mL); Cocaine Urine VISTA NEGATIVE (< 300 ng/mL); Ecstacy Urine VISTA NEGATIVE (< 500 ng/mL); Methadone Urine VISTA NEGATIVE (< 300 ng/mL); PCP Urine VISTA NEGATIVE (< 25 ng/mL); THC Urine VISTA NEGATIVE (< 50 ng/mL); Vista UDS pH Range 6
[2020-12-03 21:34] LABS: Red Blood Cells-Urine 0-5 SEEN /hpf (0-5); Squamous Epithelial Cells - UA 0-5 SEEN /hpf (5-10); White Blood Cells 0-5 SEEN /hpf (0-5)
--- NOTE | 2020-12-03 22:29 | CT_ITS ---
STUDY: CTA CHEST REASON FOR EXAM: Female, 70 years old. HYPOXIA/? PE. Hx of asthma, COPD, emphysema, squamous cell ca and prior cholecystectomy RADIATION DOSAGE (If Supplied By Facility): CTDIvol = ( 13.79 ) mGy, DLP = ( 570.08 ) mGycm TECHNIQUE: The examination was performed with the intravenous administration of IV 100mL [id number]-370. Post-processing of the angiographic images was performed, with multiplanar reformation, but without 3D reconstruction. Individualized dose optimization techniques were used for this CT. COMPARISON: Chest x-ray 12/03/2020. CT scan abdomen and pelvis 03/13/2018. CTA chest 06/20/2017 and 10/02 FINDINGS: Normal enhancement of the main pulmonary artery and right and left pulmonary arteries. Normal enhancement of the bilateral peripheral pulmonary arteries. There is no demonstrated pulmonary embolism. There is mild atherosclerotic calcification of the thoracic aorta and visualized great vessels. There is no demonstrated aortic dissection. Normal heart and pericardium. There are coronary artery calcifications. There are calcified granulomas in the mediastinum and right hilar regions. Normal visualized trachea and bronchi. The lungs are generally well expanded. There is mild atelectasis in the posterior lung bases. There are calcified pulmonary granulomatous.. There is no demonstrated acute pulmonary infiltrate. Normal pleura. Normal chest wall structures. There are bridging osteophytes at multiple contiguous levels of the spine, consistent with DISH (diffuse idiopathic skeletal hyperostosis). There is fatty alteration of the liver. There is a hyper enhancing space-occupying right lobe of the liver which was also present on the 2015 exam and appears to be stable. No further evaluation is warranted. There is chronic left adrenal gland hypertrophy. There are calcified granulomas in the spleen. CT/CTA Chest W/WO Contrast IMPRESSION: Normal CTA chest examination, without a demonstrated pulmonary embolism, aortic aneurysm, or aortic dissection. Atherosclerosis. Old granulomatous disease. No evidence for acute cardiopulmonary pathology. Electronically Signed: Kevin Hansen MD at 0:32 EST , Service support ,
[2020-12-03] MEDS: MethylPREDNISolone 125 MG/2 ML Vial IV (23:34)
[2020-12-03] MEDS: Ipratropium/Albuterol Sulfate 3 ML AMPUL.NEB INHALATION (23:39)
[2020-12-04] VITALS (15 sets, daily range): BP systolic 98–194; BP diastolic 57–92; PULSE 68–103; RESP 10–18; TEMP 36.6–36.7; O2SAT 86–96
--- NOTE | 2020-12-04 00:56 | PCM.CONS.GEN ---
Problem List (1) Neurofibroma of neck Status: Chronic Comment: 5 mm neurofibroma anterior neck (2) Intradermal nevus Status: Chronic Comment: 5 mm intradermal nevus anterior neck (3) Manic depressive disorder Status: Chronic (4) Hypertension Status: Chronic Qualifiers: (5) Tobacco abuse Status: Chronic (6) Noncompliance Status: Chronic (7) Bipolar disorder Status: Acute (8) Opioid dependence Status: Chronic Qualifiers: (9) COPD (chronic obstructive pulmonary disease) Status: Chronic Qualifiers: (10) Linnea Status: Acute (11) Rheumatoid arthritis Status: Chronic (12) Chronic back pain Status: Chronic (13) Osteopenia Status: Chronic (14) Vitamin D deficiency Status: Chronic (15) Hepatitis Status: Chronic (16) Hyperlipidemia Status: Chronic (17) GERD (gastroesophageal reflux disease) Status: Chronic (18) Seizure Status: Chronic (19) Transaminitis Status: Chronic (20) Thrombocytosis Status: Chronic (21) PTSD (post-traumatic stress disorder) Status: Chronic (22) Essential thrombocythemia Status: Chronic (23) Intertriginous dermatitis associated with moisture Status: Chronic (24) Neoplasm of skin of forehead Status: Chronic Comment: 11 mm lesion right medial forehead (25) Neoplasm of skin of lip Status: Chronic Comment: 6 mm lesion right upper lip by nasolabial fold (26) 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 Comment: 4 mm pigmented lesion right synagogue by hairline (27) Neoplasm of skin of right cheek Status: Chronic Comment: 5 mm lesion right lateral cheek (28) Personal history of skin cancer Status: Chronic (29) Former smoker Status: Chronic (30) Basal cell carcinoma of right forehead Status: Chronic Comment: 11 mm basal cell carcinoma right medial forehead (31) Basal cell carcinoma of upper lip Status: Chronic Comment: 6 mm basal cell carcinoma right upper lip by nasolabial fold (32) Basal cell carcinoma of right medial cheek Status: Chronic Comment: 5 mm basal cell carcinoma right supramedial cheek (33) Benign neoplasm of skin of cheek Status: Chronic Comment: 5 mm intradermal nevus right lateral cheek (34) Hemangioma of face Status: Chronic Comment: 4 mm capillary hemangioma right synagogue by hairline (35) Abdominal cramps Status: Chronic (36) Obstructive sleep apnea Status: Chronic (37) Essential thrombocytosis Status: Chronic (38) Dissociative identity disorder Status: Chronic Reason for Consult Date of Consultation: 12/04/20 Reason for Consultation: Linnea History of Present Illness: The patient is a 70 year old F with a significant history of multiple personality disorder; dissociative and empty disorder; and COPD who presents to the emergency department with a complaint that she is going manic and unable to focus. Patient report that at home she was unable to focus even enough to make a cup of coffee. She reported that she could not take any medication early enough as prescribed. She could not eat all day. She feel fatigue. She went to see her PCP who reportedly told her that she was going maniac. She reported that she was prescribed some medication but by the time she got to the [facility] the pharmacy shop had closed. Past Medical History Past Medical History (Chronic Problems): Chronic Problems (Last Reviewed 12/04/20 @ 01:[address] Urban Vegas MD) Neurofibroma of neck (Chronic) 5 mm neurofibroma anterior neck Intradermal nevus (Chronic) 5 mm intradermal nevus anterior neck Manic depressive disorder (Chronic) Hypertension (Chronic) Tobacco abuse (Chronic) Noncompliance (Chronic) Opioid dependence (Chronic) COPD (chronic obstructive pulmonary disease) (Chronic) Rheumatoid arthritis (Chronic) Chronic back pain (Chronic) Osteopenia (Chronic) Vitamin D deficiency (Chronic) Hepatitis (Chronic) Hyperlipidemia (Chronic) GERD (gastroesophageal reflux disease) (Chronic) Seizure (Chronic) Transaminitis (Chronic) Thrombocytosis (Chronic) PTSD (post-traumatic stress disorder) (Chronic) Essential thrombocythemia (Chronic) Intertriginous dermatitis associated with moisture (Chronic) Neoplasm of skin of forehead (Chronic) 11 mm lesion right medial forehead Neoplasm of skin of lip (Chronic) 6 mm lesion right upper lip by nasolabial fold Neoplasm of skin of synagogue region (Chronic) 4 mm pigmented lesion right synagogue by hairline Neoplasm of skin of right cheek (Chronic) 5 mm lesion right lateral cheek Personal history of skin cancer (Chronic) Former smoker (Chronic) Basal cell carcinoma of right forehead (Chronic) 11 mm basal cell carcinoma right medial forehead Basal cell carcinoma of upper lip (Chronic) 6 mm basal cell carcinoma right upper lip by nasolabial fold Basal cell carcinoma of right medial cheek (Chronic) 5 mm basal cell carcinoma right supramedial cheek Benign neoplasm of skin of cheek (Chronic) 5 mm intradermal nevus right lateral cheek Hemangioma of face (Chronic) 4 mm capillary hemangioma right synagogue by hairline Abdominal cramps (Chronic) Obstructive sleep apnea (Chronic) Essential thrombocytosis (Chronic) Dissociative identity disorder (Chronic) Medical History: Medical History (Last Reviewed 12/04/20 @ 01:[address] Urban Vegas MD) Dissociative identity disorder (Chronic) F44.81 COPD (chronic obstructive pulmonary disease) J44.9 History of UTI Z87.440 Kidney failure N19 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 Panic attacks F41.0 Allergies iloperidone [From Fanapt] Allergy (Verified 12/03/20 15:10) Other CAUSES PT TO NOT WALK OR SPEAK lurasidone [From Latuda] Allergy (Verified 12/03/20 15:10) Other paliperidone [From Invega] Allergy (Verified 12/03/20 15:10) increased psychiatric symptoms trazodone Allergy (Verified 12/03/20 15:10) Other theophylline Adverse Reaction (Verified 12/03/20 15:10) Other SLOBID Adverse Reaction (Uncoded 11/15/20 21:47) Other Home Medications: Ambulatory Orders Medication Instructions Recorded ibuprofen 600 mg tablet 600 mg PO 4X/DAY PRN PRN #30 tab 11/08/19 Bismuth Subsalicylate 525 mg PO Q8H PRN PRN #1 oral.susp 12/14/19 [Pepto-Bismol] divalproex 500 mg tablet,delayed 500 mg PO ONCE tab 01/04/20 release lamotrigine 200 mg tablet 200 mg PO DAILY 04/03/20 sennosides 8.6 mg-docusate sodium 2 tab PO BID PRN #90 tab 05/31/20 50 mg tablet albuterol sulfate 90 mcg/actuation See Rx Instructions .ROUTE 10/02/20 aerosol inhaler .COMPLEX #8.5 g calcium carbonate 600 mg calcium See Rx Instructions .ROUTE 10/02/20 (1,500 mg) tablet .COMPLEX #56 tab ferrous sulfate 325 mg (65 mg 325 mg PO DAILY #90 tab 10/02/20 iron) tablet lisinopril 40 mg tablet See Rx Instructions .ROUTE 10/02/20 .COMPLEX #90 tab melatonin 3 mg tablet 3 mg PO QHS PRN #90 tab 10/02/20 metoprolol tartrate 50 mg tablet See Rx Instructions .ROUTE 10/02/20 .COMPLEX #60 tab miconazole nitrate 2 % topical 1 applic TOPICAL BID #71 g 10/02/20 powder pravastatin 40 mg tablet 40 mg PO QHS #60 tab 10/02/20 hydrochlorothiazide 25 mg tablet 25 mg PO DAILY #90 tab 10/03/20 Amlodipine Besylate [Norvasc] 7.5 mg PO DAILY 12/03/20 CBD lotion TOPICAL 12/03/20 Omeprazole 40 mg PO DAILY 12/03/20 prazosin 2 mg capsule 2 mg PO QHS #30 cap 12/03/20 Surgical History: Surgical History (Last Reviewed 12/04/20 @ 01:[address] Urban Vegas MD) History of 3 sections Z87.59 History of cholecystectomy Z90.49 03/05 History of colonoscopy Z98.890 09/05/18 History of endoscopy Z98.890 03/08/19 History of hernia repair Z98.890, Z87.19 H/O hernia repair Z98.890, Z87.19 H/O: hysterectomy Z90.710 1998 History of Z98.891 1980 1980 1985 Surgical History: cholecystectomy, hysterectomy, - Psychiatric History: Anxiety, Bipolar, Depression REGULATORY SPECIALIST History: No pertinent REGULATORY SPECIALIST history Smoking Status: Current every day smoker - *Family History Maternal Family History: Family History (Last Reviewed 12/04/20 @ 01:[address] Urban Vegas MD) Brother Colon cancer Lung cancer Aunt Obesity Sister Obesity Mother Rheumatoid arthritis Father Alzheimer disease Brother Alzheimer disease Paternal Family History: Family History (Last Reviewed 12/04/20 @ 01:[address] Urban Vegas MD) Brother Colon cancer Lung cancer Aunt Obesity Sister Obesity Mother Rheumatoid arthritis Father Alzheimer disease Brother Alzheimer disease Sibling Family History: Family History (Last Reviewed 12/04/20 @ 01:[address] Urban Vegas MD) Brother Colon cancer Lung cancer Aunt Obesity Sister Obesity Mother Rheumatoid arthritis Father Alzheimer disease Brother Alzheimer disease History Items: Cancer Review of Systems Constitutional: Reports: Fatigue. Denies: Chills, Fever, Weight Change HEENT: Denies: Head Aches, Sinus Congestion, Sinus Drainage Cardiovascular: Denies: Chest Pain, Palpitations Respiratory: Denies: Cough, Shortness of breath at rest, Sputum production Gastrointestinal: Denies: Abdominal Pain, Nausea, Vomiting Genitourinary: Denies: Dysuria Musculoskeletal: Denies: Joint Pain, Joint Tenderness Skin: Denies: Rash, Wounds Neurological: Denies: Numbness, Tingling, Focal weakness Psychiatric: Reports: Anxiety, Depression. Denies: Homicidal Ideations, Suicidal Ideations Hematologic/ Lymphatic: Denies: Easy Bruising, Easy Bleeding Patient Problems: Active and Suspected Problems (Last Reviewed 12/04/20 @ 01:[address] Urban Vegas MD) Bipolar disorder (Acute) Linnea (Acute) - Physical Exam Vitals/I&O's: Vital Signs Temp Pulse Resp BP Pulse Ox 98.0 F 81 16 145/86 H 96 12/04/20 00:36 12/04/20 00:36 12/04/20 00:36 12/04/20 00:36 12/04/20 00:36 Oxygen Flow Rate (L/min) 2 Oxygen Delivery Method Nasal Cannula Weight: 91.1 kg Body Mass Index (BMI) 36.7 Finger Stick Blood Glucose 161 Intake and Output for Last 24 Hours 12/02/20 12/03/20 12/04/20 23:59 23:59 23:59 Intake Total 1000 / 1000 1000 / 1000 Balance 1000 / 1000 1000 / 1000 General: Alert HEENT: Atraumatic, PERRLA, EOMI, Normocephalic Neck: Supple, No JVD, Negative Carotid Bruits Lungs: Clear to auscultation, Normal air movement Cardiovascular: Regular rate, Normal S1, Normal S2, No murmurs Abdomen: Bowel Sounds Present, Soft, Non Tender Extremities: No edema, Capillary Refill Less than 3 Seconds Skin: No rashes, No breakdown Musculoskeletal: No Tenderness to Palpation of Joints or Extremities Neurological: Cranial nerves II-XII grossly intact Psych/Mental Status: - - Crying and with pressured speech. Saying fix me; fix me what is wrong. Microbiology Past 72 Hours 12/03/20 21:10 Mucosa - Nasopharyngeal SARS-CoV-2 Antigen (Rapid) - Final Laboratory Results 12/03/20 20:42: Lactic Acid 0.9 12/03/20 20:50: WBC 8.3, RBC 4.11 L, Hgb 12.9, Hct 38.6, MCV 93.9, MCH 31.4, MCHC 33.4, RDW Std Deviation 46.7 H, RDW Coeff of Tami 13.6, Plt Count 424, MPV 9.3, Immature Gran % (Auto) 0.700, Neut % (Auto) 63.0, Lymph % (Auto) 26.0, Tillman % (Auto) 8.1, Eos % (Auto) 1.8, Baso % (Auto) 0.4, Absolute Neuts (auto) 5.3, Absolute Lymphs (auto) 2.16, Nucleated RBC % 0 12/03/20 20:50: PT 13.2, INR 1.1, APTT 29.0 12/03/20 20:50: Sodium 135 L, Potassium 4.5, Chloride 101, Carbon Dioxide 28.0, Anion Gap 6, BUN 37 H, Creatinine 1.21 H, Estim Creat Clear Calc 35.19, Est GFR (MDRD) Af Amer 57 L, Est GFR (MDRD) Non-Af 47 L, BUN/Creatinine Ratio 30.6 H, Glucose 104, Calcium 8.9, Total Bilirubin 0.40, AST 30, ALT 35, Alkaline Phosphatase 84, Total Protein 7.0, Albumin 3.6, Globulin 3.4, Albumin/Globulin Ratio 1.1 12/03/20 20:50: Ethyl Alcohol < 3.0 12/03/20 20:50: Valproic Acid 89 12/03/20 20:50: Troponin I < 0.015 12/03/20 21:08: Urine Opiates Screen NEGATIVE, Urine Methadone Screen NEGATIVE, Ur Barbiturates Screen NEGATIVE, Ur Phencyclidine Scrn NEGATIVE, Ur Amphetamines Screen NEGATIVE, U Methamphetamin-MDMA NEGATIVE, U Benzodiazepines Scrn NEGATIVE, Urine Cocaine Screen NEGATIVE, U Cannabinoids Screen NEGATIVE, Ur Drug Screen Comment 12/03/20 21:08: Urine Color Yellow, Urine Clarity Sl. Cloudy, Urine pH 6.0, Ur Specific Temple 1.015, Urine Protein Negative, Urine Glucose (UA) Normal, Urine Ketones 5 H, Urine Occult Blood 10 H, Urine Nitrite Negative, Urine Bilirubin Negative, Urine Urobilinogen 1 H, Ur Leukocyte Esterase 25 H, Urine RBC 0-5 SEEN, Urine WBC 0-5 SEEN, Ur Squamous Epith Cells 0-5 SEEN, Urine Bacteria 0 SEEN, Urine Mucus 0 SEEN Assessment/Plan All Active Problems (Last Reviewed 12/04/20 @ 01:[address] Urban Vegas MD) Bipolar disorder (Acute) Linnea (Acute) YANE (acute kidney injury) (Resolved) Dehydration (Resolved) Delirium (Resolved) Osteoarthritis (Resolved) Pneumonia (Resolved) The patient is a 70 year old F with a significant history of multiple personality disorder; dissociative and empty disorder; and COPD who presents to the emergency department with acute linnea and also found to be hypotensive and with hypoxia. Acute linnea. Patient with multiple complaints and crying at the time of examination. Because of concomitant hypotensive and hypoxia patient will need medical admission but with a psychiatrist assistance to manage acute linnea. Discussed with emergency department doctor. Hypotension Initial blood pressure 88/53 patient responded to IV fluids. Reportedly at her PCPs office her blood pressure was elevated and even her amlodipine was increased. However patient reports that her new prescribed medications were not picked up. Hypoxia Oxygen saturation at emergency departments appears to be variable. Also readings on room air she was 95% while on 2 readings on room air and she was 89%. At the end of the day The patient was placed on 2 L of nasal cannula. Received breathing treatment and Solu-Medrol at emergency department. At the time of my examination lungs were clear. Acute kidney injury Baseline creatinine less than 1. On presentation creatinine is 1.21. BUN is elevated. Likely prerenal. Received IV hydration at the emergency department. Office Visits / Consults: [id number] OP Consult L3
[2020-12-04] MEDS: Ketorolac 15 MG/ML Vial IV (01:41)
[2020-12-04] MEDS: Acetaminophen 500 MG Tablet 1000 MG PO (01:41)
[2020-12-04] MEDS: LORazepam 2 MG/ML Syringe 1 MG IV (01:44)
[2020-12-04] MEDS: BUPRENORPHINE HCL/NALOXONE HCL 1 EACH TAB.SUBL SL (10:15)
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
--- NOTE | 2020-12-04 11:35 | CM.ED ---
SOCIAL WORK Call to [facility] to inquire about possibility of O2 being set up through ER without positive COVID-19 test. Worker states patient would need to be admitted as they are unable to accommodate needs without positive COVID-[address] Barbosa updated on the above. Herlinda Domínguez, ARTIST AND REPERTOIRE MANAGER, SECOND SHIFT SUPERVISOR
--- NOTE | 2020-12-04 12:17 | ED.RN ---
WILL MEDICATE WITH HOME MEDS PER DR. NAVA.
--- NOTE | 2020-12-04 12:19 | ED.RN ---
PT TAKES HOME MEDICATIONS.
--- NOTE | 2020-12-04 12:49 | PCM.HOSP.N ---
Hospitalist Note Went to evaluate the patient for hypoxia in the emergency room. Went to the patient's room the patient was off of oxygen and her pulse ox was off. I placed a pulse ox on her and patient was 95%. I ambulated the patient in the hallway roughly 100 feet on room air and by time got back patient was 93% on room air. Upon further discussion with the emergency room physician, patient was 86% while she was sleeping. I feel the patient can be discharged home with no oxygen. Patient likely has underlying obstructive sleep apnea and would benefit from outpatient pulmonary evaluation and polysomnogram. Patient will not qualify for oxygen at rest or with activity. Therefore hospitalization for hypoxia is not necessary to get her qualified for oxygen. Discussed with the patient to who is anxious to go home. Discussed with Dr. Barbosa, the emergency room physician, who will discharge patient.
--- NOTE | 2020-12-04 13:03 | ED.DEP ---
ED Disposition - Plan for ED Patient: Disposition: Home or Assisted Living Diagnosis: Hypoxia, sleep related, Bipolar disorder, Transient hypotension, YANE (acute kidney injury) Instructions: ED Sleep Apnea, Obstructive Referrals: Esperanza Baird MD [Primary Care Provider] - As soon as possible (Call for appointment)
--- NOTE | 2020-12-04 13:40 | CM.ED ---
SOCIAL WORK Patient gave permission for this worker to speak with daughter. Plan for discharge is home with patient to follow up with primary care physician. Daughter called in and spoke with this worker. Daughter requesting information from ER visit be faxed to patient's psychiatrist at [facility]. Informed daughter patient has signed release and this worker has attempted to contact office and has left message requesting call back. Daughter states able to transport patient home and will be in around 2:45p. Nursing staff eugene. Herlinda Domínguez MSW, PIPE LAYER HELPER.
--- NOTE | 2020-12-07 13:59 | CM.ED ---
SOCIAL WORK Call to [facility] to obtain fax number as patient requested to send information from ER visit on 12/03-12/04. Hospital Chaplain reports patient was seen in the office Thursday after being discharged from ER. Patient was advised to go to [facility]. Per Hospital Chaplain, unsure if patient is hospitalized at this time. Fax number obtained ([phone]) and clinical information faxed per patient's request. Herlinda Domínguez, CABLE INSTALLATION MANAGER, MEDICAL DOCTOR NUCLEAR MEDICINE
== END 2020-12-04 15:31 | disposition home or self-care (01) ==
PROVIDERS: Emergency Provider Emergency Medicine; PCP Internal Medicine
DX: R09.02 Hypoxemia (principal); I95.9 Hypotension, unspecified; N17.9 Acute kidney failure, unspecified; J44.1 Chronic obstructive pulmonary disease with (acute) exacerbation; F31.9 Bipolar disorder, unspecified; I10 Essential (primary) hypertension; F17.200 Nicotine dependence, unspecified, uncomplicated; Z79.51 Long term (current) use of inhaled steroids; Z79.899 Other long term (current) drug therapy
CPT/HCPCS: 71045; 71275; 80053; 80164; 80307; 81001; 82077; 83605; 84484; 85025; 85610; 85730; 87040; 87086; 87426; 93005; 94640; 96361; 96374; 96375; 99285; J7030; P9612; Q9967; A4216

== ENCOUNTER → 2020-12-18 09:49 | Outpatient (CLI) | payer MEDICARE, SELFPAY ==
[2020-12-18 09:21] VITALS: BMI 37.6
[2020-12-18 12:16] LABS: Absolute Lymphocyte Count 1.29 X10^3/uL (0.83-4.51); Basophil# 0.04 X10^3/uL; Basophil% 0.4 % (0-1); Eosinophil# 0.09 X10^3/uL; Hematocrit 38.8 % (37-47); Hemoglobin 12.2 g/dL (12.0-15.0); Lymphocyte # 1.29 X10^3/ul (4.0); Lymphocyte % 14.1 % (19-41); Mean Corp Hgb Conc 31.4 g/dL (32-36); Mean Corpuscular Hgb 31.4 pg (27.0-32.0); Mean Platelet Vol. 9.1 fl (6.2-12.0); Monocyte# 0.69 X10^3/uL; Monocyte% 7.5 % (0-10); NRBC Flagged by Analyzer 0 % (0-5); Neutrophil # 6.95 X10^3/uL (2.7-7.7); Neutrophil % 75.7 % (47-70); Platelet Count 520 K/mm3 (150-450); RBC Distribution Width CV 14.2 % (11.6-14.6); RBC Distribution Width SD 51.5 fl (35.1-43.9); Red Blood Count 3.88 M/mm3 (4.2-5.4); White Blood Count 9.2 K/mm3 (4.4-11.0)
[2020-12-18 12:25] LABS: LDH 198 U/L (84-246)
[2020-12-18 12:37] LABS: AST(SGOT) 20 U/L (15-37); Alanine Aminotransfer ALT/SGPT 29 U/L (13-56); Albumin, Serum 3.6 g/dL (3.2-5.0); Alkaline Phosphatase 100 U/L (45-117); Anion Gap 7 (5-15); BUN 20 mg/dL (7-18); BUN/Creat Ratio 18.7 RATIO (10-20); Calcium,Total 9.4 mg/dL (8.5-10.1); Chloride 103 mmol/L (98-107); Creatinine, Serum 1.07 mg/dL (0.55-1.02); EST Glomerular Filtration Rate 54 mL/min (>60); Est Glom Filt Rate - Afr Amer 66 mL/min (>60); Globulin 3.6 g/dL (2.2-4.2); Glucose 95 mg/dL (74-106); Potassium 4.8 mmol/L (3.5-5.1); Protein, Total 7.2 g/dL (6.4-8.2); Sodium Level 137 mmol/L (136-145)
[2020-12-18 12:57] LABS: Valproic Acid (Depakene) Level 80 ug/mL (50-100)
== END ==
PROVIDERS: Internal Medicine Medical Oncology; PCP Internal Medicine; Visit Provider Internal Medicine
DX: D47.3 Essential (hemorrhagic) thrombocythemia (principal); F31.9 Bipolar disorder, unspecified
CPT/HCPCS: 36415; 80053; 80164; 83615; 85025

== ENCOUNTER → 2021-01-10 07:36 | Outpatient (CLI) | payer MEDICARE, MEDICAID, SELFPAY ==
[2021-01-08 08:43] VITALS: BMI 37.6
--- NOTE | 2021-01-10 07:39 | BI_ITS ---
MAMMOGRAPHY - BILATERAL SCREENING REASON FOR EXAM: Female, 70 years old. Routine annual screening examination. PERTINENT HISTORY: Non-contributory. TECHNIQUE: Digital bilateral breast isaura (3D mammographic acquisition) in the CC and MLO projections. 2-D mediolateral oblique (MLO) and craniocaudad (CC) views of both breasts were obtained. CAD: Full Field Digital Mammography with Computer Added Detection was performed. COMPARISON: Comparison is made with prior study dated 01/10/2020 and 03/05/2018. FINDINGS: Breast Composition: The breasts are almost entirely fatty. There are no dominant masses or suspicious calcifications. No other significant abnormalities are identified. There has been no significant change since the prior study. BI/SCRN MAMM (CAD)W/ISAURA BILAT IMPRESSION: Stable bilateral screening mammogram. Yearly follow-up mammogram recommended. (A) ASSESSMENT CATEGORY: BIRADS Category 1: Negative. A letter regarding these results will be sent to the patient by the facility within 30 days. Approximately 10% of breast cancers are not detected by mammography. A normal mammogram should not delay biopsy of a clinically suspicious abnormality. [id number] Electronically Signed: Wil Ortega MD at 8:13 EDT , Service support ,
== END ==
PROVIDERS: PCP Internal Medicine; Referring Provider Nurse Practitioner Family; Visit Provider Nurse Practitioner Family
DX: Z12.31 Encounter for screening mammogram for malignant neoplasm of breast (principal)
CPT/HCPCS: 77063; 77067

== ENCOUNTER → 2021-01-23 10:04 | Outpatient (CLI) | payer MEDICARE, MEDICAID, SELFPAY ==
[2021-01-23 09:31] VITALS: BMI 37.1
[2021-01-23 12:14] LABS: Valproic Acid (Depakene) Level 86 ug/mL (50-100)
== END ==
PROVIDERS: PCP Internal Medicine; Referring Provider Internal Medicine; Visit Provider Internal Medicine
DX: F31.9 Bipolar disorder, unspecified (principal); R56.9 Unspecified convulsions
CPT/HCPCS: 36415; 80164

== ENCOUNTER → 2021-05-15 | Outpatient (CLI) | payer MEDICARE, SELFPAY ==
[2021-05-15 12:16] VITALS: BMI 37.1
== END | disposition home or self-care (01) ==
LOC: LABSPEC 15:14
PROVIDERS: PCP Internal Medicine; Referring Provider Physician Assistant; Visit Provider Physician Assistant
DX: T14.8XXA Other injury of unspecified body region, initial encounter (principal)
CPT/HCPCS: 87070; 87205

== ENCOUNTER 2021-07-07 22:00 | Emergency (ER) | payer MEDICARE, MEDICAID, SELFPAY ==
[2021-07-07 22:00] VITALS: BP 111/70; PULSE 143; RESP 18; TEMP 35.9; O2SAT 90; BMI 36.6
--- NOTE | 2021-07-07 22:33 | EKG12_ITS ---
Test Reason : PALPATATIONS Blood Pressure : / mmHG Vent. Rate : 131 BPM Atrial Rate : 131 BPM P-R Int : 144 ms QRS Dur : 082 ms QT Int : 318 ms P-R-T Axes : 060 067 059 degrees QTc Int : 469 ms Sinus tachycardia Otherwise normal ECG Confirmed by CORKY SEALS, FARHEEN ([id number]), society editor JESUS RUIZ ([id number]) on 07/09/2021 1:56:45 PM Referred By: BOLIVAR Confirmed By:FARHEEN FRIED MD
--- NOTE | 2021-07-07 22:36 | EX.ED.DYSGE1 ---
HPI History of Present Illness Chief Complaint: Palpitations Detail of Chief Complaint: Racing heart that started about an hour and a half ago Informant: patient Narrative Narrative: Patient presents to the emergency department complaint of a racing heart that started out an hour and a half ago. Patient states that she was watching television when she noticed it. Patient initially felt like maybe her blood pressure was elevated but when she checked it it was not but noted that her heart rate was in the 150s. She had some mild chest tightness associated with it. She had this happen one other time but was able to breathe her heart rate down. Patient states that she has been more sad and under increased stress of late as she has had multiple deaths in the family within the last year and a half. Patient states that she got scared and presented to the ER. She denies any chest pain currently. Patient states normally her heart rate is between 90 and 110. Patient also states her pulse ox is in the low 90s. She does not wear home O2. Patient continues to smoke. She has a history of COPD. She denies recent travel or surgery. No history of PE or DVT. 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 Basal cell carcinoma of upper lip Benign neoplasm of skin of cheek COPD (chronic obstructive pulmonary disease) Cutaneous candidiasis Dissociative identity disorder Hemangioma of face History of UTI Intertrigo Intradermal nevus Kidney failure Manic episode Multiple personalities Neoplasm of skin of eyelid Neoplasm of skin of nose Neurofibroma of neck Panic attacks Home Medications buprenorphine-naloxone 1 ea SL DAILY 12/04/20 [History Last Taken Unknown] ferrous sulfate 325 mg PO DAILY@0800 12/04/20 [History Last Taken Unknown] lisinopril 40 mg PO DAILY 12/04/20 [History Last Taken Unknown] buprenorphine 4 mg-naloxone 1 mg sublingual film 1 film SUBLINGUAL DAILY 12/13/20 [History Last Taken Unknown] metoprolol succinate 50 mg tablet,extended release 24 hr 50 mg PO DAILY #90 tab 12/18/20 [Rx Last Taken Unknown] acetaminophen 650 mg tablet,extended release 650 mg PO Q12H 01/23/21 [History Last Taken Unknown] cariprazine 3 mg capsule 3 mg PO DAILY #90 cap 01/25/21 [Rx Last Taken Unknown] calcium carbonate 600 mg calcium (1,500 mg) tablet 600 mg PO BID #180 tablet 01/29/21 [Rx Last Taken Unknown] Handicap Placard #1 each 02/07/21 [Rx Last Taken Unknown] lamotrigine 200 mg tablet 200 mg PO QHS #90 tab 02/22/21 [Rx Last Taken Unknown] cane #1 ea 03/04/21 [Rx Last Taken Unknown] cane tips #2 ea 03/04/21 [Rx Last Taken Unknown] omeprazole 40 mg capsule,delayed release 40 mg PO DAILY #60 cap 03/05/21 [Rx Last Taken Unknown] prazosin 1 mg capsule 3 mg PO QHS #90 cap 03/21/21 [Rx Last Taken Unknown] rosuvastatin 40 mg tablet 40 mg PO DAILY #90 tab 03/21/21 [Rx Last Taken Unknown] miconazole nitrate 2 % topical powder 1 applic TOPICAL BID #85 g 05/15/21 [Rx Last Taken Unknown] divalproex 500 mg tablet,extended release 24 hr 500 mg PO BID #180 tab 05/23/21 [Rx Last Taken Unknown] hydrochlorothiazide 25 mg tablet 25 mg PO DAILY #90 tab 05/23/21 [Rx Last Taken Unknown] imiquimod 5 % topical cream packet 4 mm TOPICAL 5XW 42 Days #30 ea 05/30/21 [Rx Last Taken Unknown] azithromycin 250 mg tablet See Rx Instructions PO .COMPLEX #6 tab 06/18/21 [Rx Last Taken Unknown] ferrous sulfate 324 mg (65 mg iron) tablet,delayed release 324 mg PO DAILY 06/18/21 [History Last Taken Unknown] inhalational spacing device #1 ea 06/26/21 [Rx Last Taken Unknown] Allergy/AdvReac Type Severity Reaction Status Date / Time iloperidone [From Fanapt] Allergy Other Verified 07/07/21 22:03 lurasidone [From Latuda] Allergy Other Verified 07/07/21 22:03 paliperidone [From Invega] Allergy increased Verified 07/07/21 22:03 psychiatric symptoms trazodone Allergy Other Verified 07/07/21 22:03 theophylline AdvReac Other Verified 07/07/21 22:03 SLOBID AdvReac Other Uncoded 07/07/21 22:03 Family History Brother Colon cancer Lung cancer Aunt Obesity Sister Obesity Mother Rheumatoid arthritis Father Alzheimer disease Brother Alzheimer disease Surgical History H/O hernia repair H/O: hysterectomy History of 3 sections History of basal cell carcinoma excision History of History of cholecystectomy History of colonoscopy History of endoscopy History of excision of lesion History of hernia repair Social History Smoking Status: Current every day smoker tobacco type: cigarettes how long ago did patient quit smokin alcohol intake: never substance use type: does not use ROS ROS ED Constitutional Constitutional ED: Reports systems reviewed and no addt'l complaints, except as documented; Denies body ache(s), change in weight or chills Eyes Eyes: Denies acute decrease in peripheral vision, change in vision, double vision or loss of vision ENT ENT ED: Reports none; Denies ear pain, lip swelling, loss taste/smell, neck pain, otalgia or sore throat Cardiovascular Cardiovascular: Reports none and racing heartbeat; Denies abdominal pain, chest pain with activity, leg edema, lightheadedness, palpitations, rapid heart rate or syncope Respiratory/Chest Respiratory/Chest: Reports none; Denies change in mental status, dry cough, dyspnea, hemoptysis, shortness of breath at rest or shortness of breath with exertion Gastrointestinal Gastrointestinal: Reports none; Denies abdominal pain, change in stool character, diarrhea, hematemesis, hematochezia, melena, rectal bleeding or vomiting Genitourinary Genitourinary ED: Reports none; Denies abdominal discomfort, anuria, dysuria, genital pain or polyuria Musculoskeletal Musculoskeletal: Reports none; Denies arthralgias, back pain, difficulty walking, extremity pain, muscle weakness or myalgias Integumentary Reports none; Denies abscess or rash Neurologic Neurologic: Reports none; Denies abnormal gait, confusion, focal weakness, frequent falls, headache(s), loss of vision, numbness, paresthesias, radicular pain, vertigo or weakness Psychiatric Psychiatric: Reports systems reviewed and no addt'l complaints, except as documented and none; Denies behavioral changes, confusion, difficulty concentrating, hallucinations, suicidal ideation, tactile hallucinations or visual hallucinations Endocrine Endocrinology: Denies none, cold intolerance, excessive sweating, fatigue or heat intolerance Hematologic/Lymphatic Hematologic/Lymphatic: Reports none; Denies anemia, easy bleeding or easy bruising Allergic/Immunologic Allergic/Immunologic ED: Denies as per HPI, none, lip swelling, mouth swelling, throat swelling, tongue swelling or hives EXAM Physical Exam Const Vital Signs: 07/07/21 22:00 07/07/21 22:43 07/07/21 22:47 Temperature 96.6 F L Temperature Source Temporal Pulse Rate 143 H 102 H Respiratory Rate 18 14 Respiratory Effort Normal Non-Labored Blood Pressure 111/70 106/65 Blood Pressure Mean 83 78 Pulse Ox 90 93 Oxygen Delivery Method Room Air Room Air 07/07/21 23:20 Temperature Temperature Source Pulse Rate 101 H Respiratory Rate 14 Respiratory Effort Blood Pressure 94/57 L Blood Pressure Mean 69 Pulse Ox 93 Oxygen Delivery Method Room Air Positive well nourished and well developed General Appearance ED: well developed and NAD HEENT Reports TM's clear and moist mucous membranes normocephalic and atraumatic; Negative for trauma or tenderness Tympanic Membrane ED: Yes TM's clear Eyes PERRL and EOMs intact bilaterally General Eye ED: Negative for pale conjunctiva or scleral icterus Neck no lymphadenopathy, supple and no JVD General: Negative for tenderness Chest Wall inspection of chest normal and palpation of chest normal Chest: Negative for tenderness Resp normal respiratory effort and clear to auscultation bilaterally Effort and Inspection: Negative for respiratory distress or pain with movement Auscultation: Negative for rhonchi, wheezes or diminished lung sounds Cardio regular rhythm, S1 normal heart sound, S2 normal heart sound and no murmurs Rate: tachycardic Peripheral Pulses: pulses 2+ throughout GI normal to inspection, nondistended, normoactive bowel sounds, soft to palpation, non-tender, non-distended and no masses Back/Spine no CVA tenderness and no thoracic nor lumbar tenderness Extremity normal to inspection General Extremety ED: Negative for edema General Extremity: Negative for edema Neuro oriented x3, CN's II-XII intact bilaterally, no sensory deficits noted and gait normal Sensorium / Orientation: awake, alert, oriented to person, oriented to place and oriented to time Motor Exam: strength 5/5 throughout and strength abnormal Psych mental status grossly normal Skin no rashes or lesions noted and no wounds MDM MDM MDM Narrative Medical decision making narrative: Patient's work-up unremarkable in the emergency department. She is currently asymptomatic and at her baseline. She is wondering if this could be related to anxiety like the other time she had this happen in certainly feel this is a possibility. Patient will follow up with her primary care physician 3 to 5 days. She is advised to return if chest pain, persistent tachycardia, or condition should worsen anyway. Lab Data Attestation: I reviewed the patient's lab results. Labs: Laboratory Results - last 24 hr 07/07/21 07/07/21 07/07/21 22:24 22:24 22:24 WBC 9.4 RBC 4.46 Hgb 13.7 Hct 42.4 MCV 95.1 MCH 30.7 MCHC 32.3 RDW Std Deviation 46.1 H RDW Coeff of Tami 13.3 Plt Count 494 H MPV 9.5 Immature Gran % (Auto) 1.000 H Neut % (Auto) 57.7 Lymph % (Auto) 35.4 [place] % (Auto) 4.6 Eos % (Auto) 0.9 Baso % (Auto) 0.4 Absolute Neuts (auto) 5.4 Absolute Lymphs (auto) 3.31 Nucleated RBC % 0 D-Dimer Quant (PE/DVT) 0.35 Sodium 136 Potassium 3.4 L Chloride 100 Carbon Dioxide 27.0 Anion Gap 9 BUN 15 Creatinine 1.06 H Estim Creat Clear Calc 40.17 Est GFR (MDRD) Af Amer 66 Est GFR (MDRD) Non-Af 55 L BUN/Creatinine Ratio 14.2 Glucose 289 H Calcium 9.0 Troponin I High Sens 10 Valproic Acid 07/07/21 22:40 WBC RBC Hgb Hct MCV MCH MCHC RDW Std Deviation RDW Coeff of Tami Plt Count MPV Immature Gran % (Auto) Neut % (Auto) Lymph % (Auto) [place] % (Auto) Eos % (Auto) Baso % (Auto) Absolute Neuts (auto) Absolute Lymphs (auto) Nucleated RBC % D-Dimer Quant (PE/DVT) Sodium Potassium Chloride Carbon Dioxide Anion Gap BUN Creatinine Estim Creat Clear Calc Est GFR (MDRD) Af Amer Est GFR (MDRD) Non-Af BUN/Creatinine Ratio Glucose Calcium Troponin I High Sens Valproic Acid 68 Radiography Chest X-Ray - ED: 1 View Diagnostic Testing: One view chest x-ray obtained interpreted by [email or web address] as no acute disease process. Official report from radiology pending. EKG Initial EKG: Attestation: I personally reviewed and interpreted this EKG as follows: Comments: Sinus tachycardia with a ventricular rate of 131 bpm with no acute ST segment changes Discharge Plan Triage Chief Complaint: Palpitations ED Provider: Toshia Calle Dx/Rx/DC Orders Clinical Impression: Atrial tachycardia, Anxiety Instructions: ED Anxiety Reaction, ED Tachycardia: PAT Prescriptions: No Action buprenorphine-naloxone [Suboxone] 4-1 mg film 1 film SUBLINGUAL DAILY RF: 0 acetaminophen [Tylenol Arthritis Pain] 650 mg tablet extended release 650 mg PO Q12H RF: 0 imiquimod [Aldara] 5 % cream in packet 4 mm topical 5XW 42 Days Qty: 30 RF: 0 omeprazole 40 mg capsule,delayed release(DR/EC) 40 mg PO DAILY Qty: 60 RF: 1 ferrous sulfate 324 mg (65 mg iron) tablet,delayed release (DR/EC) 324 mg PO DAILY RF: 0 azithromycin 250 mg tablet See Rx Instructions PO .COMPLEX Qty: 6 RF: 0 ferrous sulfate 325 MG tablet 325 mg PO DAILY@0800 RF: 0 lisinopril 40 MG tablet 40 mg PO DAILY RF: 0 buprenorphine-naloxone 1 EACH tablet, sublingual 1 ea SL DAILY RF: 0 metoprolol succinate 50 mg tablet extended release 24 hr 50 mg PO DAILY Qty: 90 RF: 3 cariprazine 3 mg capsule 3 mg PO DAILY Qty: 90 RF: 0 calcium carbonate 600 mg calcium (1,500 mg) tablet 600 mg PO BID Qty: 180 RF: 1 (DME) Handicap Placard See Rx Instructions .ROUTE .MEDSUPPLY Qty: 1 RF: 0 lamotrigine 200 mg tablet 200 mg PO QHS Qty: 90 RF: 0 (DME) cane tips [Quad Cane Tips] Misc See Rx Instructions .ROUTE .MEDSUPPLY Qty: 2 RF: 0 (DME) cane Device See Rx Instructions .ROUTE .MEDSUPPLY Qty: 1 RF: 0 prazosin 1 mg capsule 3 mg PO QHS Qty: 90 RF: 1 rosuvastatin 40 mg tablet 40 mg PO DAILY Qty: 90 RF: 1 miconazole nitrate 2 % powder 1 applic topical BID Qty: 85 RF: 3 hydrochlorothiazide 25 mg tablet 25 mg PO DAILY Qty: 90 RF: 1 divalproex 500 mg tablet extended release 24 hr 500 mg PO BID Qty: 180 RF: 1 (DME) POCKET CHAMBER Spacer See Rx Instructions .ROUTE .MEDSUPPLY Qty: 1 RF: 0 Primary Care Provider: Esperanza Baird Referrals: Esperanza Baird MD [Primary Care Provider] - 3-5 Days Disposition Disposition: Home, Self Care
[2021-07-07 22:43] VITALS: BP 106/65; PULSE 102; RESP 14; O2SAT 93
[2021-07-07 22:43] LABS: Absolute Lymphocyte Count 3.31 X10^3/uL (0.83-4.51); Absolute Neutrophil Count 5.4 X10^3/uL (2.0-7.7); Basophil# 0.04 X10^3/uL; Basophil% 0.4 % (0-1); Eosinophil# 0.08 X10^3/uL; Eosinophils% 0.9 % (0-5); Hematocrit 42.4 % (37-47); Hemoglobin 13.7 g/dL (12.0-15.0); Lymphocyte # 3.31 X10^3/ul (0.83-4.51); Lymphocyte % 35.4 % (19-41); Mean Corp Hgb Conc 32.3 g/dL (32-36); Mean Corpuscular Hgb 30.7 pg (27.0-32.0); Mean Corpuscular Volume 95.1 fL (81-99); Mean Platelet Vol. 9.5 fl (6.2-12.0); Monocyte# 0.43 X10^3/uL; Monocyte% 4.6 % (0-10); NRBC Flagged by Analyzer 0 % (0-5); Neutrophil # 5.41 X10^3/uL (2.7-7.7); Neutrophil % 57.7 % (47-70); Platelet Count 494 K/mm3 (150-450); RBC Distribution Width CV 13.3 % (11.6-14.6); RBC Distribution Width SD 46.1 fl (35.1-43.9); Red Blood Count 4.46 M/mm3 (4.2-5.4); White Blood Count 9.4 K/mm3 (4.4-11.0)
--- NOTE | 2021-07-07 22:47 | RAD_ITS ---
STUDY: X-RAY CHEST REASON FOR EXAM: Female, 70 years old. Dyspnea TECHNIQUE: Frontal view COMPARISON: 12/03/2020. FINDINGS: The lungs are clear and expanded. There is no demonstrated pleural abnormality. Normal size heart. Normal mediastinum and jairo. Normal visualized pulmonary arteries. Normal visualized aortic arch and descending thoracic aorta. Degenerative changes of the thoracic spine. Normal visualized ribs, clavicles, and shoulders. There is no demonstrated abnormality of the visualized soft tissue structures of the upper abdomen. RAD/Chest 1 View (Portable) IMPRESSION: Normal x-ray examination of the chest. Electronically Signed: Porter Rudd DO at 23:38 EDT Tel [phone], Service support ,
[2021-07-07 22:50] LABS: D-Dimer Quantitative (DVT/PE) 0.35 FEU/ug/m (0.27-0.49)
[2021-07-07 22:55] LABS: Anion Gap 9 (5-15); BUN 15 mg/dL (7-18); BUN/Creat Ratio 14.2 RATIO (10-20); Chloride 100 mmol/L (98-107); Creatinine, Serum 1.06 mg/dL (0.55-1.02); EST Glomerular Filtration Rate 55 mL/min (>60); Est Glom Filt Rate - Afr Amer 66 mL/min (>60); Estimated Creatinine Clearance 40.17 ml/min; Glucose 289 mg/dL (74-106); Potassium 3.4 mmol/L (3.5-5.1); Sodium Level 136 mmol/L (136-145); Troponin-I HS 10 pg/mL (3.0-54.0)
[2021-07-07 23:15] LABS: Valproic Acid (Depakene) Level 68 ug/mL (50-100)
[2021-07-07] MEDS: 0.9% Normal Saline 1,000 ML 150 ML IV (23:19)
[2021-07-07 23:20] VITALS: BP 94/57; PULSE 101; RESP 14; O2SAT 93
[2021-07-07 23:48] VITALS: BP 100/59; PULSE 88; RESP 16; O2SAT 94
[2021-07-07 23:50] VITALS: BP 100/59; PULSE 94; RESP 17; O2SAT 100
== END 2021-07-07 23:52 | disposition home or self-care (01) ==
PROVIDERS: Emergency Provider Emergency Medicine; PCP Internal Medicine
DX: I47.1 Supraventricular tachycardia (principal); F41.9 Anxiety disorder, unspecified; F17.210 Nicotine dependence, cigarettes, uncomplicated; Z87.440 Personal history of urinary (tract) infections
CPT/HCPCS: 71045; 80048; 80164; 84484; 85025; 85379; 90471; 93005; 96360; 99285; J7030; A4216

== ENCOUNTER → 2021-07-09 14:28 | Outpatient (CLI) | payer MEDICARE, MEDICAID, SELFPAY ==
[2021-07-09 16:13] LABS: Thyroid Stim Hormone (TSH) 0.57 uIU/mL (0.358-3.74)
== END ==
PROVIDERS: PCP Internal Medicine; Referring Provider Nurse Practitioner Family; Visit Provider Nurse Practitioner Family
DX: F31.9 Bipolar disorder, unspecified (principal); I47.1 Supraventricular tachycardia
CPT/HCPCS: 36415; 84443

== ENCOUNTER → 2021-08-28 09:39 | Outpatient (CLI) | payer MEDICARE, MEDICAID, SELFPAY ==
[2021-08-28 13:01] LABS: ALB/GLOB Ratio 0.8 RATIO (0.9-2.4); AST(SGOT) 10 U/L (15-37); Alanine Aminotransfer ALT/SGPT 19 U/L (13-56); Alkaline Phosphatase 93 U/L (45-117); Anion Gap 7 (5-15); BUN 22 mg/dL (7-18); BUN/Creat Ratio 17.2 RATIO (10-20); Calcium,Total 9.4 mg/dL (8.5-10.1); Chloride 100 mmol/L (98-107); Cholesterol 127 mg/dL (200); Creatinine, Serum 1.28 mg/dL (0.55-1.02); EST Glomerular Filtration Rate 44 mL/min (>60); Est Glom Filt Rate - Afr Amer 53 mL/min (>60); Globulin 3.9 g/dL (2.2-4.2); Glucose 131 mg/dL (74-106); High Density Lipoprotein 30 mg/dL; Potassium 3.9 mmol/L (3.5-5.1); Protein, Total 6.9 g/dL (6.4-8.2); Sodium Level 137 mmol/L (136-145); Triglycerides 244 mg/dL; Very Low Density Lipoprotein 49 mg/dL (5-40)
== END ==
PROVIDERS: PCP Internal Medicine; Referring Provider Internal Medicine; Visit Provider Internal Medicine
DX: E78.5 Hyperlipidemia, unspecified (principal); I10 Essential (primary) hypertension
CPT/HCPCS: 36415; 80053; 80061

== ENCOUNTER → 2021-10-17 13:26 | Outpatient (CLI) | payer MEDICARE, SELFPAY ==
--- NOTE | 2021-10-17 13:27 | RAD_ITS ---
STUDY: X-RAY - LEFT WRIST REASON FOR EXAM: Female, 71 years old. f/u fracture TECHNIQUE: 3 view(s) of the wrist were obtained. COMPARISON: 09/20/2021 FINDINGS: Healing nondisplaced transverse fracture of the distal metaphysis radius with sclerosis and bony bridging. Normal radiocarpal articulation. Normal distal radioulnar articulation. Normal carpal bones. There is degenerative arthrosis of the carpal articulations. There is degenerative arthrosis of the carpometacarpal articulation of the thumb. Normal second through fifth carpometacarpal articulations. Normal visualized metacarpal bones. The soft tissue structures are unremarkable. RAD/Wrist min 3 Views IMPRESSION: Healing nondisplaced transverse fracture of the distal metaphysis of the radius. Electronically Signed: Santiago Frias MD at 16:09 EST Tel , Service support ,
== END ==
PROVIDERS: PCP Internal Medicine
DX: S62.102A Fracture of unspecified carpal bone, left wrist, initial encounter for closed fracture (principal)
CPT/HCPCS: 73110

== ENCOUNTER 2021-10-21 17:22 | Emergency (ER) | payer MEDICARE, MEDICAID, SELFPAY ==
[2021-10-21 17:23] VITALS: BP 169/100; PULSE 104; RESP 16; TEMP 35.8; O2SAT 98; BMI 34.7
[2021-10-21 21:54] VITALS: BP 170/110; PULSE 75; RESP 16; O2SAT 98
--- NOTE | 2021-10-21 22:18 | EDS_ITS ---
HPI History of Present Illness Chief Complaint: Anxiety Narrative Narrative: Patient is a 71-year-old female with past medical history of anxiety takes BuSpar 3 times a day. She states she is taken her medication as directed but has had breakthrough anxiety. She denies any new life stressors or change in medication. She denies any suicidal or homicidal ideation but states she cannot get her anxiety under control and secondary to this comes to the hospital for evaluation. [facility] Medical History Abdominal pain Actinic keratoses Basal cell carcinoma of right forehead Basal cell carcinoma of right medial cheek Basal cell carcinoma of upper lip Benign neoplasm of skin of cheek COPD (chronic obstructive pulmonary disease) Cutaneous candidiasis Dissociative identity disorder Flu vaccine need Hemangioma of face History of UTI Intertrigo Intradermal nevus Kidney failure Left wrist fracture Manic episode Multiple personalities Neoplasm of skin of eyelid Neoplasm of skin of nose Neurofibroma of neck Panic attacks Home Medications metoprolol succinate 50 mg tablet,extended release 24 hr 50 mg PO DAILY #90 tab 12/18/20 [Rx Last Taken Unknown] acetaminophen 650 mg tablet,extended release 650 mg PO Q12H 01/23/21 [History Last Taken Unknown] cariprazine 3 mg capsule 3 mg PO DAILY #90 cap 01/25/21 [Rx Last Taken Unknown] calcium carbonate 600 mg calcium (1,500 mg) tablet 600 mg PO BID #180 tablet 01/29/21 [Rx Last Taken Unknown] Handicap Placard #1 each 02/07/21 [Rx Last Taken Unknown] lamotrigine 200 mg tablet 200 mg PO QHS #90 tab 02/22/21 [Rx Last Taken Unknown] cane #1 ea 03/04/21 [Rx Last Taken Unknown] cane tips #2 ea 03/04/21 [Rx Last Taken Unknown] prazosin 1 mg capsule 3 mg PO QHS #90 cap 03/21/21 [Rx Last Taken Unknown] miconazole nitrate 2 % topical powder 1 applic TOPICAL BID #85 g 05/15/21 [Rx Last Taken Unknown] divalproex 500 mg tablet,extended release 24 hr 500 mg PO BID #180 tab 05/23/21 [Rx Last Taken Unknown] hydrochlorothiazide 25 mg tablet 25 mg PO DAILY #90 tab 05/23/21 [Rx Last Taken Unknown] inhalational spacing device #1 ea 06/26/21 [Rx Last Taken Unknown] metoprolol succinate 25 mg tablet,extended release 24 hr 25 mg PO DAILY #90 tab 07/09/21 [Rx Last Taken Unknown] ropinirole 0.25 mg tablet 0.25 mg PO QHS #30 tab 07/11/21 [Rx Last Taken Unknown] omeprazole 40 mg capsule,delayed release 40 mg PO DAILY #60 cap 07/12/21 [Rx Last Taken Unknown] buprenorphine 100 mg/0.5 mL solution,exten.rel.subcutaneous syringe 100 mg SUBCUT QMONTH ml 08/07/21 [History Last Taken Unknown] rosuvastatin 40 mg tablet 40 mg PO DAILY #90 tab 09/06/21 [Rx Last Taken Unknown] ferrous sulfate 324 mg (65 mg iron) tablet,delayed release 324 mg PO DAILY #90 tab 10/04/21 [Rx Last Taken Unknown] lisinopril 40 mg tablet 40 mg PO DAILY #90 tab 10/04/21 [Rx Last Taken Unknown] nicotine 21mg/24hr-14mg/24hr-7mg/24hr daily transderm patches,sequentl See Rx Instructions TRANSDERMAL .COMPLEX #56 patch 10/14/21 [Rx Last Taken Unknown] Allergy/AdvReac Type Severity Reaction Status Date / Time iloperidone [From Fanapt] Allergy Other Verified 10/21/21 17:26 lurasidone [From Latuda] Allergy Other Verified 10/21/21 17:26 paliperidone [From Invega] Allergy increased Verified 10/21/21 17:26 psychiatric symptoms trazodone Allergy Other Verified 10/21/21 17:26 theophylline AdvReac Other Verified 10/21/21 17:26 SLOBID AdvReac Other Uncoded 10/21/21 17:26 Family History Brother Colon cancer Lung cancer Aunt Obesity Sister Obesity Mother Rheumatoid arthritis Father Alzheimer disease Brother Alzheimer disease Surgical History H/O hernia repair H/O: hysterectomy History of 3 sections History of basal cell carcinoma excision History of History of cholecystectomy History of colonoscopy History of endoscopy History of excision of lesion History of hernia repair Social History Smoking Status: Current every day smoker tobacco type: cigarettes how long ago did patient quit smokin alcohol intake: never substance use type: does not use ROS ROS ED Constitutional Constitutional ED: Denies chills or fever(s) ENT ENT ED: Denies sore throat Cardiovascular Cardiovascular: Denies chest pain Respiratory/Chest Respiratory/Chest: Denies cough or dyspnea Gastrointestinal Gastrointestinal: Denies abdominal pain, diarrhea, nausea or vomiting Genitourinary Genitourinary ED: Denies dysuria Musculoskeletal Musculoskeletal: Denies myalgias Integumentary Denies rash Neurologic Neurologic: Denies headache(s) Psychiatric Psychiatric: Reports anxiety; Denies suicidal ideation or suicidal thoughts Hematologic/Lymphatic Hematologic/Lymphatic: Denies easy bleeding or easy bruising EXAM Physical Exam Const Vital Signs: 10/21/21 17:23 10/21/21 21:54 Temperature 96.5 F L Temperature Source Temporal Pulse Rate 104 H 75 Respiratory Rate 16 16 Blood Pressure 169/100 H 170/110 H Blood Pressure Mean 123 130 Pulse Ox 98 98 Oxygen Delivery Method Room Air Room Air Positive well nourished, well developed and obese General Appearance ED: well developed Nutritional Appearance: obese Eyes PERRL and EOMs intact bilaterally Neck supple Resp normal respiratory effort and clear to auscultation bilaterally Cardio regular rate and regular rhythm Extremity normal to inspection Neuro oriented x3 and CN's II-XII intact bilaterally Sensorium / Orientation: alert Motor Exam: strength 5/5 throughout Psych Psych Narrative: Patient has a nervous/anxious affect but no homicidal or suicidal ideation Mood & Affect: anxious Skin no rashes or lesions noted MDM MDM MDM Narrative Medical decision making narrative: Patient presented to the ER hypertensive but otherwise in no acute distress with stable vitals. She reported a longstanding history of anxiety and is felt that her home medication was not controlling her symptoms today and she was having a breakthrough panic attack. We discussed possible laboratory studies but as she does not have homicidal or suicidal ideation and no report or signs of infection she did not those obtained at this time. Therefore patient will be given IM Ativan in ER to reduce the anxiety symptoms and is otherwise safe for discharge. Discharge Plan Triage Chief Complaint: Anxiety ED Provider: Rolf Mackenzie Dx/Rx/DC Orders Clinical Impression: Anxiety attack Instructions: ED Panic Attack Prescriptions: No Action acetaminophen [Tylenol Arthritis Pain] 650 mg tablet extended release 650 mg PO Q12H RF: 0 metoprolol succinate 25 mg tablet extended release 24 hr 25 mg PO DAILY Qty: 90 RF: 1 ropinirole 0.25 mg tablet 0.25 mg PO QHS Qty: 30 RF: 1 Sublocade 100 mg/0.5 mL solution, extended rel syringe 100 mg subcut QMONTH RF: 0 metoprolol succinate 50 mg tablet extended release 24 hr 50 mg PO DAILY Qty: 90 RF: 3 cariprazine 3 mg capsule 3 mg PO DAILY Qty: 90 RF: 0 calcium carbonate 600 mg calcium (1,500 mg) tablet 600 mg PO BID Qty: 180 RF: 1 (DME) Handicap Placard See Rx Instructions .ROUTE .MEDSUPPLY Qty: 1 RF: 0 lamotrigine 200 mg tablet 200 mg PO QHS Qty: 90 RF: 0 (DME) cane tips [Quad Cane Tips] Misc See Rx Instructions .ROUTE .MEDSUPPLY Qty: 2 RF: 0 (DME) cane Device See Rx Instructions .ROUTE .MEDSUPPLY Qty: 1 RF: 0 prazosin 1 mg capsule 3 mg PO QHS Qty: 90 RF: 1 miconazole nitrate 2 % powder 1 applic topical BID Qty: 85 RF: 3 hydrochlorothiazide 25 mg tablet 25 mg PO DAILY Qty: 90 RF: 1 divalproex 500 mg tablet extended release 24 hr 500 mg PO BID Qty: 180 RF: 1 (DME) POCKET CHAMBER Spacer See Rx Instructions .ROUTE .MEDSUPPLY Qty: 1 RF: 0 omeprazole 40 mg capsule,delayed release(DR/EC) 40 mg PO DAILY Qty: 60 RF: 1 rosuvastatin 40 mg tablet 40 mg PO DAILY Qty: 90 RF: 1 ferrous sulfate 324 mg (65 mg iron) tablet,delayed release (DR/EC) 324 mg PO DAILY Qty: 90 RF: 1 lisinopril 40 mg tablet 40 mg PO DAILY Qty: 90 RF: 1 nicotine 21-14-7 mg/24 hr patch, TD daily, sequential See Rx Instructions transdermal .COMPLEX Qty: 56 RF: 0 Primary Care Provider: Esperanza Baird Referrals: Esperanza Baird MD [Primary Care Provider] - Disposition Disposition: Home, Self Care
[2021-10-21] MEDS: LORazepam 2 MG/ML Syringe IM (23:24)
[2021-10-22 00:31] VITALS: BP 110/74; PULSE 89; RESP 18; O2SAT 94
--- NOTE | 2021-10-22 04:14 | ED.RN ---
patient standing at the triage desk and not answering this nurse and did not move or sit down when instructed to sit in wheelchair behind her. She was medicated for anxiety tonight, and was in waiting room since she drove herself and was lying in the parking lot. Tried to call her daughter, demetrius, Halie, to get patient but went to voicemail. LMOM to call back regarding her mom, the patient.
== END 2021-10-22 00:06 | disposition home or self-care (01) ==
LOC: ED 22:23
PROVIDERS: Emergency Provider Emergency Medicine; PCP Internal Medicine; Visit Provider Emergency Medicine
DX: F41.9 Anxiety disorder, unspecified (principal); F17.210 Nicotine dependence, cigarettes, uncomplicated; E66.9 Obesity, unspecified
CPT/HCPCS: 96372; 99283

== ENCOUNTER 2021-10-28 12:17 | Outpatient (RCR) | payer MEDICARE, MEDICAID, SELFPAY ==
--- NOTE | 2021-10-28 13:37 | HP.OTEVAL_ITS ---
Patient's Visit Information ALEXIA POWELL is a 71 year old F, referred to Occupational Therapy by ABBI Tomlin, with a diagnosis of left distal radius fracture. Date of Evaluation: 10/28/21 Occupational Therapist: Evelyn Mayo, TAVO/Luis Alberto, CHT - Subjective This 71 year old female was seen for OT eval with dx of a left distal radius fracture. pts DOI 08/29/21. pt was casted for 6 weeks. pt currently 8 weeks and 4 days from DOI. pt arrived by use of [employer]. pt states she fell over something but unable to communicate what she fell over. pt currently denies pain and tingling. pt would like to get stronger following her fall. - ADLs Comments: pt has one story home- has hired aide to assist with dishes, laundry, cooking and cleaning. They do her grocery shopping for her. pt denies pain. pt getting meals on wheels that delivers one meal a day-. pt states she is sponge bathing because she had a fall in her bathroom about 6 days ago. per pt she is waiting on grab bars to be installed. - ROM Forearm: right/left WNL Wrist: right 65/60 left 60/45 - Strength Berry Picker: right 40# left 20# Lateral Pinch: right 16# left 0 Tripod Pinch: right 4# left 0 Strength Comments: pt demo with weak left cutting and splicing supervisor and pinch strength - Sensation Sensation Comments: denies - Quick DASH-Disab of Arm,Shoulder& Hand Quick DASH Score: 38.6350 - Goals Goal:: pt will demo a left cutting and splicing supervisor strength of 35# or greater to return to her PLOF. pt will demo a increase in left lateral and tripod pinch by 4# to increase pts ind. with ADls by d.c - Rehabilitation General Assessment: pt arrives 8 weeks and 4 days from left distal radius fx. pt demo with weakness of left cutting and splicing supervisor and pinch limiting pt with ADsl and IADLS. pt would benefit from skilled OT services 2x week for 4 weeks to return pt to PLOF. Today therapist gave pt resistive sponge and ed. pt on cutting and splicing supervisor and pinch strength exercise- pt demo understanding of ex and was given handout- pt agree to POC Rehabilitation Potential: Good - Anticipated Interventions Strengthening, Education re assistive Equipment, Education re Diagnosis, Home Program - Visit Plan Frequency: 1-2x /Week Duration: 3 Weeks TEXT: Thank you for the opportunity to evaluate your patient. For Medicare and Medicare HMO plans, please review the plan of care and approve it. It will need to be FAXED BACK to us at [phone] for Medicare purposes. Please let me know if there are questions or concerns regarding this plan of care. Physician Signature: Date:
--- NOTE | 2022-02-28 08:57 | HP.OT.NRP ---
FRANCINEAG POWELL was seen in my office for initial evaluation on 10/28/21. The following Plan of Care was established for this patient: Initial Frequency: 1-2x /Week Initial Duration: 3 Weeks Anticipated Interventions: Strengthening, Education re assistive Equipment, Education re Diagnosis, Home Program This patient was last seen in our office 10/28/21. Pertinent comments regarding their Occupational therapy will appear below: pt was seen for eval only- he did not schedule therapy and due to time lapse in services pt d/c. At this point I will be discontinuing this patient from occupational therapy. I would be happy to see this patient again in the future if found appropriate by the physician. Thank you! Evelyn Mayo, OTR/L, CHT
== END 2021-10-28 19:00 | disposition home or self-care (01) ==
LOC: OT 12:17
PROVIDERS: PCP Internal Medicine
DX: S52.502D Unspecified fracture of the lower end of left radius, subsequent encounter for closed fracture with routine healing (principal); X58.XXXD Exposure to other specified factors, subsequent encounter
CPT/HCPCS: 97110; 97166

== ENCOUNTER 2021-12-04 10:40 | Outpatient (CLI) | payer MEDICARE, MEDICAID, SELFPAY ==
[2021-12-04 12:52] LABS: Anion Gap 4 (5-15); BUN 18 mg/dL (7-18); BUN/Creat Ratio 22.9 RATIO (10-20); Calcium,Total 8.7 mg/dL (8.5-10.1); Chloride 97 mmol/L (98-107); Creatinine, Serum 0.78 mg/dL (0.55-1.02); EST Glomerular Filtration Rate 77 mL/min (>60); Est Glom Filt Rate - Afr Amer 93 mL/min (>60); Glucose 141 mg/dL (74-106); Potassium 3.4 mmol/L (3.5-5.1); Sodium Level 137 mmol/L (136-145)
== END 2021-12-04 23:59 | disposition home or self-care (01) ==
LOC: BIMLAB 10:41
PROVIDERS: PCP Internal Medicine; Referring Provider Internal Medicine; Visit Provider Internal Medicine
DX: I10 Essential (primary) hypertension (principal)
CPT/HCPCS: 36415; 80048

== ENCOUNTER 2022-01-15 11:40 | Outpatient (CLI) | payer MEDICARE, SELFPAY ==
--- NOTE | 2022-01-15 11:43 | BI_ITS ---
MAMMOGRAPHY - BILATERAL SCREENING REASON FOR EXAM: Female, 71 years old. Routine annual screening examination. PERTINENT HISTORY: Non-contributory. TECHNIQUE: Digital bilateral breast isaura (3D mammographic acquisition) in the CC and MLO projections. 2-D mediolateral oblique (MLO) and craniocaudad (CC) views of both breasts were obtained. CAD: Full Field Digital Mammography with Computer Added Detection was performed. COMPARISON: Comparison is made with prior study dated 01/10/2021 and 01/10/2020. FINDINGS: Breast Composition: The breasts are almost entirely fatty. There are no dominant masses or suspicious calcifications. Stable small benign-appearing bilateral axillary lymph nodes. No other significant abnormalities are identified. There has been no significant change since the prior study. BI/SCRN MAMM (CAD)W/ISAURA BILAT IMPRESSION: Stable bilateral screening mammogram. Yearly follow-up mammogram recommended. (A) ASSESSMENT CATEGORY: BIRADS Category 2: Benign. A letter regarding these results will be sent to the patient by the facility within 30 days. Approximately 10% of breast cancers are not detected by mammography. A normal mammogram should not delay biopsy of a clinically suspicious abnormality. [id number] Electronically Signed: Wil Ortega MD at 12:41 EDT ,
== END 2022-01-15 23:59 | disposition home or self-care (01) ==
LOC: OPBI 11:41
PROVIDERS: PCP Internal Medicine; Visit Provider Internal Medicine
DX: Z12.31 Encounter for screening mammogram for malignant neoplasm of breast (principal)
CPT/HCPCS: 77063; 77067

== ENCOUNTER → 2022-03-04 | Outpatient (CLI) | payer MEDICARE, MEDICAID, SELFPAY ==
--- NOTE | 2022-03-04 10:57 | ART_ITS ---
Reason For Study: PVD Procedure A bilateral lower extremity continuous wave Doppler with analog waveform analysis,segmental pressures,and ankle brachial indexes without exercise. Left Segmental Pressures Left brachial= 124mmHg. Left thigh = 157mmHg. Left calf = 108mmHg. Left posterior tibial artery = 128mmHg. Left dorsalis pedis artery = 130mmHg. Left digit = 69 mmHg. The left dorsalis pedis waveforms are triphasic. The left posterior tibial artery waveforms are triphasic. Right Segmental Pressures Right brachial= 131mmHg. Right calf = 138mmHg. Right posterior tibial artery = 129mmHg. Right dorsalis pedis artery = 129mmHg. Right digit = 78 mmHg. The right dorsalis pedis waveforms are triphasic. The right posterior tibial artery waveforms are triphasic. Indices The right ankle brachial index by the dorsalis pedis is 0.98. The right ankle brachial index by the posterior tibial artery is 0.98. The right digital-brachial index is 0.60. The left ankle brachial index by the dorsalis pedis is 0.99. The left ankle brachial index by the posterior tibial artery is 0.98. The left digital-brachial index is 0.53. VL/Lower Ext Art Exam w/o Exercis Interpretation Summary Triphasic Doppler waveforms are noted at ankle level bilaterally. Pulse-volume recordings appear satisfactory at all levels bilaterally. Resting ankle-brachial indices are norm al bilaterally. Digital-brachial indices are mildly diminished bilaterally. Arterial flow appears normal at ankle level bilaterally. There is evidence of m ild arterial occlusive disease at digital level bilaterally. Ordering Physician: Austin Roberts Referring Physician: Esperanza Baird Performed By: Shannon Tao RVT
== END | disposition home or self-care (01) ==
LOC: CVS 10:56
PROVIDERS: PCP Internal Medicine; Visit Provider Podiatrist
DX: I73.9 Peripheral vascular disease, unspecified (principal)
CPT/HCPCS: 93923

== ENCOUNTER 2022-05-03 16:25 | Inpatient (IN) | payer MEDICARE, MEDICAID, SELFPAY ==
[2022-05-03] VITALS (8 sets, daily range): BP systolic 94–129; BP diastolic 55–67; PULSE 68–77; RESP 12–20; TEMP 36.1–36.7; O2SAT 94–100; BMI 33.2; BMI 33.8
--- NOTE | 2022-05-03 16:56 | EKG12_ITS ---
Test Reason : DIZZINESS Blood Pressure : / mmHG Vent. Rate : 069 BPM Atrial Rate : 069 BPM P-R Int : 226 ms QRS Dur : 100 ms QT Int : 426 ms P-R-T Axes : 063 063 056 degrees QTc Int : 456 ms Sinus rhythm with 1st degree A-V block Nonspecific T wave abnormality Abnormal ECG Confirmed by CORKY SEALS, FARHEEN ([id number]), editor magazine ATUL BANEGAS ([id number]) on 05/05/2022 11:05:13 AM Referred By: THIEN Confirmed By:FARHEEN FRIED MD
--- NOTE | 2022-05-03 17:01 | EX.ED.DYSGE1 ---
HPI History of Present Illness Chief Complaint: Dizziness Detail of Chief Complaint: Lightheadedness. Informant: patient Onset/Context/Timing Onset: Weeks Context: Gradual Onset Timing: Continuous Current Severity: Mild Maximum Severity: Moderate Narrative Narrative: 71-year-old female history of hypertension for which she is on several blood pressure medications, COPD, anxiety. States that she has been dizzy the last 2 weeks before April 21. She said she is so lightheaded that she is unable to walk. She is wearing depends Dr. Mcginnis get to her bedside commode chair. Creatinine she describes as lightheadedness not vertiginous. No headache. No chest pain or shortness of breath. No abdominal pain. No nausea or vomiting. No fever or chills. No dysuria. States he has had a slightly decreased p.o. intake but is able to take in p.o. fluids. Denies any melena. She has had no recent medication changes. Prior similar symptoms: No Recent Illness/Hospitalization: No PFSH PFSH Medical History Abdominal pain Actinic keratoses Basal cell carcinoma of right forehead Basal cell carcinoma of right medial cheek Basal cell carcinoma of upper lip Benign neoplasm of skin of cheek COPD (chronic obstructive pulmonary disease) Cutaneous candidiasis Debility Dissociative identity disorder Dizziness Flu vaccine need Frequent falls Hemangioma of face History of UTI Intertrigo Intradermal nevus Kidney failure Left ankle pain Left wrist fracture Manic episode Multiple personalities Neoplasm of skin of eyelid Neoplasm of skin of nose Neurofibroma of neck Panic attacks Urinary incontinence Home Medications acetaminophen 650 mg tablet,extended release (Tylenol Arthritis Pain) 650 mg PO Q12H 01/23/21 [History Last Taken Unknown] calcium carbonate 600 mg calcium (1,500 mg) tablet 600 mg PO BID #180 tabs 01/29/21 [Rx Last Taken Unknown] Handicap Placard #1 ea 02/07/21 [Rx Last Taken Unknown] lamotrigine 200 mg tablet 200 mg PO QHS #90 tabs 02/22/21 [Rx Last Taken Unknown] cane #1 ea 03/04/21 [Rx Last Taken Unknown] cane tips (Quad Cane Tips) #2 ea 03/04/21 [Rx Last Taken Unknown] prazosin 1 mg capsule 3 mg PO QHS #90 caps 03/21/21 [Rx Last Taken Unknown] miconazole nitrate 2 % topical powder 1 applic topical BID #85 grams 05/15/21 [Rx Last Taken Unknown] inhalational spacing device (POCKET CHAMBER spacer) #1 ea 06/26/21 [Rx Last Taken Unknown] ropinirole 0.25 mg tablet 0.25 mg PO QHS #30 tabs 07/11/21 [Rx Last Taken Unknown] buprenorphine 100 mg/0.5 mL solution,exten.rel.subcutaneous syringe 100 mg subcut QMONTH 08/07/21 [History Last Taken Unknown] nicotine 21mg/24hr-14mg/24hr-7mg/24hr daily transderm patches,sequentl See Rx Instructions transdermal .COMPLEX smoking cessation #56 patches 10/14/21 [Rx Last Taken Unknown] metoprolol succinate 50 mg tablet,extended release 24 hr 50 mg PO DAILY #90 tabs 12/02/21 [Rx Last Taken Unknown] meloxicam 15 mg tablet (Mobic) 15 mg PO DAILY #21 tabs 12/11/21 [Rx Last Taken Unknown] omeprazole 40 mg capsule,delayed release 40 mg PO DAILY #90 caps 02/24/22 [Rx Last Taken Unknown] rosuvastatin 40 mg tablet 40 mg PO DAILY #90 tabs 02/27/22 [Rx Last Taken Unknown] ferrous sulfate 324 mg (65 mg iron) tablet,delayed release 324 mg PO DAILY #90 tabs 03/19/22 [Rx Last Taken Unknown] lisinopril 40 mg tablet 40 mg PO DAILY #90 tabs 03/19/22 [Rx Last Taken Unknown] divalproex 500 mg tablet,extended release 24 hr 500 mg PO BID #180 tabs 04/30/22 [Rx Last Taken Unknown] hydrochlorothiazide 25 mg tablet 25 mg PO DAILY #90 tabs 04/30/22 [Rx Last Taken Unknown] metoprolol succinate 25 mg tablet,extended release 24 hr 25 mg PO DAILY #90 tabs 04/30/22 [Rx Last Taken Unknown] Allergy/AdvReac Type Severity Reaction Status Date / Time iloperidone [From Fanapt] Allergy Other Verified 05/03/22 16:29 lurasidone [From Latuda] Allergy Other Verified 05/03/22 16:29 paliperidone [From Invega] Allergy increased Verified 05/03/22 16:29 psychiatric symptoms trazodone Allergy Other Verified 05/03/22 16:29 theophylline AdvReac Other Verified 05/03/22 16:29 SLOBID AdvReac Other Uncoded 05/03/22 16:29 Family History Brother Colon cancer Lung cancer Aunt Obesity Sister Obesity Mother Rheumatoid arthritis Father Alzheimer disease Brother Alzheimer disease Surgical History H/O hernia repair H/O: hysterectomy History of 3 sections History of basal cell carcinoma excision History of History of cholecystectomy History of colonoscopy History of endoscopy History of excision of lesion History of hernia repair Social History Smoking Status: Current every day smoker tobacco type: cigarettes how long ago did patient quit smokin alcohol intake: never substance use type: does not use ROS ROS ED ROS Narrative Lightheadedness. Review of Systems ROS Unobtainable: Denies due to encephalopathy Constitutional Constitutional ED: Denies chills or fever(s) Eyes Eyes: Denies blurry vision Cardiovascular Cardiovascular: Denies chest pain Respiratory/Chest Respiratory/Chest: Denies cough Gastrointestinal Gastrointestinal: Denies abdominal pain, constipation, diarrhea, melena, nausea or vomiting Genitourinary Genitourinary ED: Denies dysuria or hematuria Musculoskeletal Musculoskeletal: Denies arthralgias Integumentary Denies abscess Neurologic Neurologic: Denies headache(s) Psychiatric Psychiatric: Denies anxiety Endocrine Endocrinology: Denies cold intolerance Hematologic/Lymphatic Hematologic/Lymphatic: Reports none Allergic/Immunologic Allergic/Immunologic ED: Denies mouth swelling or tongue swelling EXAM Physical Exam Narrative Exam Narrative: 71-year-old female initial blood pressure 94/55 was hypotensive. Afebrile. Pulse ox 94% room air no signs hypoxia. H EENT exam unremarkable atraumatic. Pupils round react light. No facial droop. Normal speech. Neck nontender. Lungs clear to auscultation. Heart regular rhythm rate about 77 no murmur. Abdomen soft nontender normal bowel sounds no peritoneal signs. No pulsatile mass. Moving all [address] extremities[address] 5[address] messenger strength. Dorsi plantarflexion intact. Neurologically she is awake alert with no focal motor deficits. Const Vital Signs: 05/03/22 16:27 05/03/22 16:27 05/03/22 16:30 Temperature 96.9 F L Temperature Source Temporal Pulse Rate 77 Respiratory Rate 20 H Respiratory Effort Normal Non-Labored Respiratory Pattern Normal Blood Pressure 94/55 L Blood Pressure Mean 68 Pulse Ox 94 Oxygen Delivery Method Room Air 05/03/22 17:39 05/03/22 17:39 Temperature 97.1 F L Temperature Source Temporal Pulse Rate Respiratory Rate Respiratory Effort Respiratory Pattern Blood Pressure Blood Pressure Mean Pulse Ox 95 Oxygen Delivery Method Room Air Positive well nourished and well developed; Negative for cachectic or contractures General Appearance ED: well developed; Negative for cachectic or contractures Nutritional Appearance: Negative for cachectic HEENT Reports moist mucous membranes; Denies dry mucous membranes tenderness Mouth ED: No dry mucous membranes Mouth: No dry mucous membranes Eyes PERRL and EOMs intact bilaterally General Eye ED: Negative for pale conjunctiva or scleral icterus Neck no lymphadenopathy, supple and no JVD General: Negative for tenderness Lymph Lymphatic: other Chest Wall inspection of chest normal and palpation of chest normal Resp normal respiratory effort and clear to auscultation bilaterally Effort and Inspection: Negative for retractions Auscultation: Negative for rales, rhonchi or wheezes Cardio regular rate, regular rhythm, S1 normal heart sound, S2 normal heart sound and no murmurs Rate: Negative for bradycardia GI normal to inspection, nondistended, normoactive bowel sounds, non-tender, non-distended and no masses Auscultation: normoactive bowel sounds; Negative for hyperactive bowel sounds Palpation: soft; Negative for tender, guarding, splenomegaly or mass Back/Spine no CVA tenderness General Back: Negative for CVA tenderness Cervical Spine: Negative for cervical spine tenderness Thoracic Spine / Upper Back: Negative for thoracic spinal tenderness or paraspinal muscle tenderness Lumbar Spine / Lower Back: Negative for lumbar spinal tenderness Extremity normal to inspection General Extremety ED: Negative for edema or tenderness General Extremity: Negative for edema Neuro oriented x3 and no sensory deficits noted Sensorium / Orientation: alert; Negative for orientation impaired, lethargic or stuporous Motor Exam: strength 5/5 throughout Psych mental status grossly normal Appearance: Negative for other Attitude: No agitated Mood & Affect: Negative for depressed, anxious or tearful Skin no rashes or lesions noted and no wounds Lesions: No lesion noted Rashes: No rashes noted Trauma: Negative for abrasion Wounds: Negative for wounds noted MDM MDM MDM Narrative Medical decision making narrative: 71-year-old female complaint of lightheadedness with hypotension her initial systolic blood pressure was 94. She does not look septic or toxic. She will put through a septic work-up and given a liter of normal saline and reassess. She has had no recent medication changes. Repeat exam patient is doing well at 6:10 PM. Her pressures are slowly coming up she is only received about a third of the liter of normal saline currently her systolic pressures 97/52. She and I went over her test results she is comfortable with being admitted. On the hospitalist on page. Due to her urinary tract infection she will be started on IV Rocephin. Urine culture will be sent. I will speak to the hospitalist about where they would like to place her. Lab Data Attestation: I reviewed the patient's lab results. Lab results narrative: Rapid COVID test negative. CBC showed a white count 8. H&H of 12 and 35. Platelets 293. PT/INR PTT unremarkable. Electrolytes show sodium 127 potassium of 3. Gap of 12. BUN of 51 creatinine 4.94 consistent with acute kidney injury. Acute on chronic renal insufficiency. Her last creatinine about 16 days ago was 2.3 and now is 4.94.. Liver enzymes are negative. Lactic acid normal at 0.8. Valproic acid level normal at 0.92. Urinalysis consistent with a urinary tract infection with greater than 100 white cells and 3+ bacteria. No nitrites and no epithelial cells. This will be treated as a UTI and sent for culture. Labs: Laboratory Results - last 24 hr 05/03/22 05/03/22 05/03/22 16:46 16:46 16:46 WBC 8.1 RBC 3.96 L Hgb 12.3 Hct 35.8 L MCV 90.4 MCH 31.1 MCHC 34.4 RDW Std Deviation 44.0 H RDW Coeff of Tami 13.3 Plt Count 293 MPV 9.3 Immature Gran % (Auto) 1.500 H Neut % (Auto) 75.7 H Lymph % (Auto) 16.3 L Shoshone % (Auto) 6.1 Eos % (Auto) 0.2 Baso % (Auto) 0.2 Absolute Neuts (auto) 6.2 Absolute Lymphs (auto) 1.33 Nucleated RBC % 0 PT 13.4 INR 1.1 APTT 31.9 Sodium 127 L Potassium 3.0 L Chloride 89 L Carbon Dioxide 26.0 Anion Gap 12 BUN 51 H Creatinine 4.94 H Estim Creat Clear Calc 8.50 Est GFR (MDRD) Af Amer 11 L Est GFR (MDRD) Non-Af 9 L BUN/Creatinine Ratio 10.3 Glucose 94 Lactic Acid Calcium 8.9 Total Bilirubin 0.30 AST 40 H ALT 15 Alkaline Phosphatase 102 Total Protein 6.7 Albumin 3.0 L Globulin 3.7 Albumin/Globulin Ratio 0.8 L Urine Color Urine Clarity Urine pH Ur Specific [place] Urine Protein Urine Glucose (UA) Urine Ketones Urine Occult Blood Urine Nitrite Urine Bilirubin Urine Urobilinogen Ur Leukocyte Esterase Urine RBC Urine WBC Ur Squamous Epith Cells Urine Bacteria Urine Mucus Valproic Acid 05/03/22 05/03/22 05/03/22 16:46 17:10 17:30 WBC RBC Hgb Hct MCV MCH MCHC RDW Std Deviation RDW Coeff of Tami Plt Count MPV Immature Gran % (Auto) Neut % (Auto) Lymph % (Auto) Shoshone % (Auto) Eos % (Auto) Baso % (Auto) Absolute Neuts (auto) Absolute Lymphs (auto) Nucleated RBC % PT INR APTT Sodium Potassium Chloride Carbon Dioxide Anion Gap BUN Creatinine Estim Creat Clear Calc Est GFR (MDRD) Af Amer Est GFR (MDRD) Non-Af BUN/Creatinine Ratio Glucose Lactic Acid 0.8 Calcium Total Bilirubin AST ALT Alkaline Phosphatase Total Protein Albumin Globulin Albumin/Globulin Ratio Urine Color Yellow Urine Clarity Cloudy Urine pH 6.5 Ur Specific [place] 1.010 Urine Protein 100 H Urine Glucose (UA) Normal Urine Ketones Negative Urine Occult Blood 250 H Urine Nitrite Negative Urine Bilirubin Negative Urine Urobilinogen Normal Ur Leukocyte Esterase 500 H Urine RBC 10-25 SEEN Urine WBC >100 SEEN Ur Squamous Epith Cells 0-5 SEEN Urine Bacteria 3+ Urine Mucus 0 SEEN Valproic Acid 92 Radiography Chest X-Ray - ED: 1 View, Read by ED Physician, Heart, Lungs, Mediastinum, Bony Structures, No Acute Disease and Chronic Changes Diagnostic Testing: Chest x-ray, portable, single view interpreted by myself shows no acute abnormality. Normal cardiac silhouette. Normal mediastinum. No infiltrates. Rhythm Strip Rhythm Strip: Sinus Rhythm Rate: 69 Ectopy: None EKG Initial EKG: Attestation: I personally reviewed and interpreted this EKG as follows: Interpretation: Sinus Rhythm and No Acute Injury Pattern Comments: Normal sinus rhythm rate of 69 no acute signs of MT or ischemia. No significant dysrhythmia. First-degree AV block with a TN interval of 226. Critical Care Time Critical Care Time: Yes Critical care time (excluding procedures): 30-74 minutes, Including time spent:, Discussing w/Patient &/or Family/[employer], Discussing w/Consultants, Arranging Admission or Transfer, Performing Direct Patient Care at Bedside and - (31 min) Discharge Plan Triage Chief Complaint: Dizziness ED Provider: Boni Khan Dx/Rx/DC Orders Clinical Impression: Acute hypotension, Urinary tract infection, Acute kidney injury, Generalized weakness Prescriptions: No Action acetaminophen [Tylenol Arthritis Pain] 650 mg tablet extended release 650 mg PO Q12H ropinirole 0.25 mg tablet 0.25 mg PO QHS Qty: 30 1RF Rx Instructions: administer 1-3 hours before bedtime Sublocade 100 mg/0.5 mL solution, extended rel syringe 100 mg subcut QMONTH meloxicam [Mobic] 15 mg tablet 15 mg PO DAILY Qty: 21 0RF calcium carbonate 600 mg calcium (1,500 mg) tablet 600 mg PO BID Qty: 180 1RF (DME) Handicap Placard See Rx Instructions .ROUTE .MEDSUPPLY Qty: 1 0RF Rx Instructions: As directed, length of time 5 years lamotrigine 200 mg tablet 200 mg PO QHS Qty: 90 0RF (DME) cane tips [Quad Cane Tips] Misc See Rx Instructions .ROUTE .MEDSUPPLY Qty: 2 0RF Rx Instructions: As directed (DME) cane Device See Rx Instructions .ROUTE .MEDSUPPLY Qty: 1 0RF Rx Instructions: As directed, Quad cane prazosin 1 mg capsule 3 mg PO QHS Qty: 90 1RF miconazole nitrate 2 % powder 1 applic topical BID Qty: 85 3RF (DME) POCKET CHAMBER Spacer See Rx Instructions .ROUTE .MEDSUPPLY Qty: 1 0RF Rx Instructions: As directed nicotine 21-14-7 mg/24 hr patch, TD daily, sequential See Rx Instructions transdermal .COMPLEX Qty: 56 0RF Rx Instructions: apply 1-21 mg NICOTINE PATCH daily for 28 days; follow with 1-14 mg PATCH daily for 14 days, then 1-7mg PATCH daily for 14 days transdermal metoprolol succinate 50 mg tablet extended release 24 hr 50 mg PO DAILY Qty: 90 3RF omeprazole 40 mg capsule,delayed release(DR/EC) 40 mg PO DAILY Qty: 90 1RF rosuvastatin 40 mg tablet 40 mg PO DAILY Qty: 90 1RF lisinopril 40 mg tablet 40 mg PO DAILY Qty: 90 1RF ferrous sulfate 324 mg (65 mg iron) tablet,delayed release (DR/EC) 324 mg PO DAILY Qty: 90 1RF divalproex 500 mg tablet extended release 24 hr 500 mg PO BID Qty: 180 1RF hydrochlorothiazide 25 mg tablet 25 mg PO DAILY Qty: 90 1RF metoprolol succinate 25 mg tablet extended release 24 hr 25 mg PO DAILY Qty: 90 1RF Rx Instructions: to be taken in conjunction, 75 mg daily Primary Care Provider: Esperanza Baird Referrals: Esperanza Baird MD [Primary Care Provider] - Disposition Disposition: Acute Care Hospital [facility]
[2022-05-03 17:13] LABS: Absolute Lymphocyte Count 1.33 X10^3/uL (0.83-4.51); Absolute Neutrophil Count 6.2 X10^3/uL (2.0-7.7); Basophil# 0.02 X10^3/uL; Basophil% 0.2 % (0-1); Eosinophil# 0.02 X10^3/uL; Eosinophils% 0.2 % (0-5); Hematocrit 35.8 % (37-47); Hemoglobin 12.3 g/dL (12.0-15.0); Lymphocyte # 1.33 X10^3/ul (0.83-4.51); Lymphocyte % 16.3 % (19-41); Mean Corp Hgb Conc 34.4 g/dL (32-36); Mean Corpuscular Hgb 31.1 pg (27.0-32.0); Mean Corpuscular Volume 90.4 fL (81-99); Mean Platelet Vol. 9.3 fl (6.2-12.0); Monocyte% 6.1 % (0-10); NRBC Flagged by Analyzer 0 % (0-5); Neutrophil # 6.15 X10^3/uL (2.7-7.7); Neutrophil % 75.7 % (47-70); Platelet Count 293 K/mm3 (150-450); RBC Distribution Width CV 13.3 % (11.6-14.6); Red Blood Count 3.96 M/mm3 (4.2-5.4); White Blood Count 8.1 K/mm3 (4.4-11.0)
[2022-05-03 17:24] LABS: International Normalized Ratio 1.1; Prothrombin Time (Protime)PT. 13.4 SECONDS (11.7-14.9)
[2022-05-03 17:25] LABS: Partial Thromboplast Time 31.9 Seconds (24.1-36.2)
[2022-05-03 17:34] LABS: ALB/GLOB Ratio 0.8 RATIO (0.9-2.4); AST(SGOT) 40 U/L (15-37); Alanine Aminotransfer ALT/SGPT 15 U/L (13-56); Alkaline Phosphatase 102 U/L (45-117); Anion Gap 12 (5-15); BUN 51 mg/dL (7-18); BUN/Creat Ratio 10.3 RATIO (10-20); Calcium,Total 8.9 mg/dL (8.5-10.1); Chloride 89 mmol/L (98-107); Creatinine, Serum 4.94 mg/dL (0.55-1.02); EST Glomerular Filtration Rate 9 mL/min (>60); Est Glom Filt Rate - Afr Amer 11 mL/min (>60); Globulin 3.7 g/dL (2.2-4.2); Glucose 94 mg/dL (74-106); Protein, Total 6.7 g/dL (6.4-8.2); Sodium Level 127 mmol/L (136-145)
[2022-05-03] MEDS: 0.9% Normal Saline 1,000 ML 999 ML IV (17:34)
[2022-05-03 17:37] LABS: Valproic Acid (Depakene) Level 92 ug/mL (50-100)
--- NOTE | 2022-05-03 17:40 | RAD_ITS ---
INDICATION: hypotension EXAMINATION/TECHNIQUE: X-RAY - XR Chest 1 View COMPARISON: Chest x-ray 07/07/2021. FINDINGS: LINES/DEVICES: None. Overlying heart monitoring wires are present. LUNGS: Symmetric, increased lung volumes indicating some degree of air trapping. There appears to be some mild increased lucency the left, greater than right mid lung suggesting emphysematous changes. Minimal left lower lobe atelectasis. No other airspace opacity or abnormal interstitial pattern. No nodule or mass. No pleural effusion or pneumothorax. MEDIASTINUM AND CARDIOVASCULAR STRUCTURES: Normal size and contour of the cardiomediastinal silhouette. No evidence of pulmonary vascular congestion. There are mediastinal calcifications suggesting prior granulomatous infection. BONES AND SOFT TISSUES: Advanced degenerative changes shoulders. RAD/Chest 1 View (Portable) IMPRESSION: 1. Emphysematous changes and evidence of prior granulomatous infection. 2. Minimal left lower lobe atelectasis. Electronically Signed: Jacques Castaneda DO at 18:52 EDT ,
[2022-05-03 17:43] LABS: Mucous, Urine 0 SEEN /hpf (<or=2+)
[2022-05-03 17:48] LABS: Lactic Acid 0.8 mmol/L (0.4-1.9)
[2022-05-03 17:52] LABS: Color, Urine Yellow (Yellow); Glucose, Dipstick Normal (Normal); Ketone-Dipstick Negative (Negative); Leukocyte Esterase-Dipstick 500 /ul (Negative); Nitrite-Dipstick Negative (Negative); Occult Blood-Urine 250 /ul (Negative); Protein-Dipstick 100 mg/dl (Negative); Urine Bilirubin Dipstick Negative (Negative); Urine Clarity Cloudy (Clear); Urine Urobilinogen Normal (Normal); Urine pH 6.5 (5.0 - 8.0)
[2022-05-03 18:00] LABS: Bacteria 3+ /hpf (None Seen); Red Blood Cells-Urine 10-25 SEEN /hpf (0-5); Squamous Epithelial Cells - UA 0-5 SEEN /hpf (5-10); White Blood Cells >100 SEEN /hpf (0-5)
--- NOTE | 2022-05-03 18:29 | HP.PCM.HOS_ITS ---
HPI - General General Date of Admission: 05/03/22 Date of Service: 05/03/22 Chief Complaint: Generalized weakness/hypotension HPI Narrative ALEXIA POWELL, is a 71 F who presented to the emergency department [facility] on 05/03/2022 complaining of lightheadedness. The patient states she is on several blood pressure medication and has been dizzy for approximately 2 weeks that started before 21 April. She reports that she has been so lightheaded she has been able to walk recently. She has been wearing depends secondary to urinary incontinence and uses a bedside commode. She denies any chest pain or shortness of breath, abdominal pain, nausea, vomiting, diarrhea, fever, or chills. She complains of urinary frequency and dysuria and reports that she is urinating large volumes. She reported to the ER physician that her p.o. intake has decreased however she told me she is drinking large volumes. She has had no melena hematochezia or hematemesis. She did indicate she had 2 episodes of emesis just before 21 April but nothing since. She is somewhat of a poor historian. In the emergency department her vital signs on presentation were temperature of 96.9, blood pressure of 94/55, heart rate of 77, respiratory rate of 20, oxygen saturations were 94% on room air. Without blood pressure she was given IV fluids and her blood pressure on leaving the emergency department was 106/66. The patient reports that she typically runs about 120/80 when she takes her medicines for her blood pressure. Her CBC is overall unremarkable. Her coagulation studies are normal. Her chemistry panel is markedly abnormal with a sodium of 127, potassium of 3.0, chloride of 89, BUN of 51, serum creatinine of 4.94. Her baseline serum creatinine appears to be 1-1.3. Her EKG showed normal sinus rhythm with a first-degree heart block. Chest x-ray showed emphysematous changes and evidence of prior granulomatous infection and minimal left lower lobe atelectasis. Her UA is consistent with acute infection having 250 of occult blood, positive leuk esterase, greater than 100 white cells per high- powered field, and 3+ bacteria. Her valproic acid level was 92. The emergency department she was given IV fluids and started on ceftriaxone for suspected urinary tract infection. Cultures were sent from the emergency department. In the fact her blood pressure was improving with IV fluid she will be admitted to [facility] Medical History Abdominal pain Actinic keratoses Basal cell carcinoma of right forehead Basal cell carcinoma of right medial cheek Basal cell carcinoma of upper lip Benign neoplasm of skin of cheek COPD (chronic obstructive pulmonary disease) Cutaneous candidiasis Debility Dissociative identity disorder Dizziness Flu vaccine need Frequent falls Hemangioma of face History of UTI Intertrigo Intradermal nevus Kidney failure Left ankle pain Left wrist fracture Manic episode Multiple personalities Neoplasm of skin of eyelid Neoplasm of skin of nose Neurofibroma of neck Panic attacks Urinary incontinence Home Medications acetaminophen 650 mg tablet,extended release (Tylenol Arthritis Pain) 650 mg PO Q12H 01/23/21 [History Last Taken Unknown] calcium carbonate 600 mg calcium (1,500 mg) tablet 600 mg PO BID #180 tabs 01/29/21 [Rx Last Taken Unknown] Handicap Placard #1 ea 02/07/21 [Rx Last Taken Unknown] lamotrigine 200 mg tablet 200 mg PO QHS #90 tabs 02/22/21 [Rx Last Taken Unknown] cane #1 ea 03/04/21 [Rx Last Taken Unknown] cane tips (Quad Cane Tips) #2 ea 03/04/21 [Rx Last Taken Unknown] prazosin 1 mg capsule 3 mg PO QHS #90 caps 03/21/21 [Rx Last Taken Unknown] miconazole nitrate 2 % topical powder 1 applic topical BID #85 grams 05/15/21 [Rx Last Taken Unknown] inhalational spacing device (POCKET CHAMBER spacer) #1 ea 06/26/21 [Rx Last Taken Unknown] ropinirole 0.25 mg tablet 0.25 mg PO QHS #30 tabs 07/11/21 [Rx Last Taken Unkn own] buprenorphine 100 mg/0.5 mL solution,exten.rel.subcutaneous syringe 100 mg subcut QMONTH 08/07/21 [History Last Taken Unknown] nicotine 21mg/24hr-14mg/24hr-7mg/24hr daily transderm patches,sequentl See Rx Instructions transdermal .COMPLEX smoking cessation #56 patches 10/14/21 [Rx Last Taken Unknown] metoprolol succinate 50 mg tablet,extended release 24 hr 50 mg PO DAILY #90 tabs 12/02/21 [Rx Last Taken Unknown] meloxicam 15 mg tablet (Mobic) 15 mg PO DAILY #21 tabs 12/11/21 [Rx Last Taken Unknown] omeprazole 40 mg capsule,delayed release 40 mg PO DAILY #90 caps 02/24/22 [Rx Last Taken Unknown] rosuvastatin 40 mg tablet 40 mg PO DAILY #90 tabs 02/27/22 [Rx Last Taken Unknown] ferrous sulfate 324 mg (65 mg iron) tablet,delayed release 324 mg PO DAILY #90 tabs 03/19/22 [Rx Last Taken Unknown] lisinopril 40 mg tablet 40 mg PO DAILY #90 tabs 03/19/22 [Rx Last Taken Unknown] divalproex 500 mg tablet,extended release 24 hr 500 mg PO BID #180 tabs 04/30/22 [Rx Last Taken Unknown] hydrochlorothiazide 25 mg tablet 25 mg PO DAILY #90 tabs 04/30/22 [Rx Last Taken Unknown] metoprolol succinate 25 mg tablet,extended release 24 hr 25 mg PO DAILY #90 tabs 04/30/22 [Rx Last Taken Unknown] Allergy/AdvReac Type Severity Reaction Status Date / Time iloperidone [From Fanapt] Allergy Other Verified 05/03/22 16:29 lurasidone [From Latuda] Allergy Other Verified 05/03/22 16:29 paliperidone [From Invega] Allergy increased Verified 05/03/22 16:29 psychiatric symptoms trazodone Allergy Other Verified 05/03/22 16:29 theophylline AdvReac Other Verified 05/03/22 16:29 SLOBID AdvReac Other Uncoded 05/03/22 16:29 Family History Brother Colon cancer Lung cancer Aunt Obesity Sister Obesity Mother Rheumatoid arthritis Father Alzheimer disease Brother Alzheimer disease Surgical History H/O hernia repair H/O: hysterectomy History of 3 sections History of basal cell carcinoma excision History of History of cholecystectomy History of colonoscopy History of endoscopy History of excision of lesion History of hernia repair Social History (Updated 05/03/22 @ 19:[address] Mehreen Denney DO) Smoking Status: Current every day smoker tobacco type: cigarettes how long ago did patient quit smokin alcohol intake: never substance use type: former substance user Date of last use: Cocaine ROS Constitutional Constitutional: Reports malaise and weakness; Denies anorexia, change in weight, chills, fatigue, fever(s), night sweats or other Eyes Eyes: Reports blurry vision and other Details: Improves when she puts her glasses on ; Denies change in eye color, change in vision, discharge from eye(s), double vision, erythema, eye pain or loss of vision ENT HEENT: Denies abnormal hearing, dysphagia, ear pain, epistaxis, headache(s), hearing loss, nasal congestion, nasal discharge, post nasal drip, sinus pressure, sore throat or other Cardiovascular Cardiovascular: Denies chest pain, claudication, dyspnea on exertion, edema, lightheadedness, orthopnea, palpitations, paroxysmal nocturnal dyspnea, rapid heart rate, syncope or other Respiratory/Chest Respiratory/Chest: Denies cough, dyspnea, excessive phlegm production, hemoptysis, productive cough, shortness of breath at rest, shortness of breath with exertion, wheezing or other Gastrointestinal Gastrointestinal: Denies abdominal pain, coffee ground emesis, constipation, diarrhea, dyspepsia, hematemesis, hematochezia, loose stools, melena, nausea, vomiting or other Genitourinary Genitourinary: Reports burning urination, urinary frequency and urinary urgency; Denies difficulty urinating, dysuria, hematuria, nocturia, urinary hesitancy, urinary incontinence or other Musculoskeletal Musculoskeletal: Denies arthralgias, back pain, joint pain, joint stiffness, joint swelling, myalgias, neck pain or other Neurologic Neurologic: Denies abnormal gait, abnormal speech, confusion, disequilibrium, dizziness, focal weakness, headache(s), numbness, paresthesias, seizure-like activity, seizures, syncope, tingling, tremor(s) or other Psychiatric Psychiatric: Reports anxiety and depression; Denies homicidal ideation, suicidal ideation or other Endocrine Endocrinology: Reports polydipsia and polyuria Hematologic/Lymphatic Hematologic/Lymphatic: Denies anemia, easy bleeding, easy bruising, lymphadenopathy or other Allergic/Immunologic Allergic/Immunologic: Denies rhinitis, hives, eczemia, asthma or other Vital Signs Vital Signs Vital Signs: 05/03/22 16:27 05/03/22 16:27 05/03/22 16:30 Temperature 96.9 F L Temperature Source Temporal Pulse Rate 77 Respiratory Rate 20 H Respiratory Effort Normal Non-Labored Respiratory Pattern Normal Blood Pressure 94/55 L Blood Pressure Mean 68 Pulse Ox 94 Oxygen Delivery Method Room Air 05/03/22 17:39 05/03/22 17:39 Temperature 97.1 F L Temperature Source Temporal Pulse Rate Respiratory Rate Respiratory Effort Respiratory Pattern Blood Pressure Blood Pressure Mean Pulse Ox 95 Oxygen Delivery Method Room Air Weight Weight: 82.4 kg Body Mass Index (BMI) 33.2 Physical Exam Const alert, oriented x3, no apparent distress and well nourished Constitutional Narrative: Upper middle-aged white female sitting up in bed, appears much older than stated age, disheveled with dirt under nails and on feet, hair unkept General Appearance: cooperative HEENT normocephalic and head/scalp atraumatic HEENT Narrative: Mild hearing loss, mucous membranes are dry, dentition is poor with caries noted and multiple missing teeth, Mallampati 2, no thrush Eyes PERRL, EOMs intact bilaterally and conjunctivae normal Eyes Narrative: No scleral icterus Neck no lymphadenopathy, supple, no JVD and no carotid bruits Neck Narrative: Trachea midline, no thyroid enlargement Resp normal respiratory effort, no retractions, no use of accessory muscles and clear to auscultation bilaterally Resp Narrative: Diffusely diminished but clear Auscultation: Negative for crackles, rales, rhonchi or wheezes Cardio regular rate, regular rhythm, S1 normal heart sound, S2 normal heart sound, no murmurs, no rub, no gallops, no clicks and no JVD GI normal to inspection, nondistended, normoactive bowel sounds, soft to palpation, non-tender and non-distended; Negative for hepatosplenomegaly Extremity no clubbing, cyanosis or edema Extremity Narrative: Pedal pulses are 2+ Neuro oriented x3, CN's II-XII intact bilaterally, moves all extremities and no focal motor deficits Neuro Narrative: No sensory deficits, generalized weakness Speech: speech normal Psych Psych Narrative: Patient pleasant and appropriately interactive Results Lab / Micro Data Result Diagrams: 05/03/22 16:46 05/03/22 16:46 Labs: Laboratory Results - last 24 hr 05/03/22 16:46: WBC 8.1, RBC 3.96 L, Hgb 12.3, Hct 35.8 L, MCV 90.4, MCH 31.1, MCHC 34.4, RDW Std Deviation 44.0 H, RDW Coeff of Tami 13.3, Plt Count 293, MPV 9.3, Immature Gran % (Auto) 1.500 H, Neut % (Auto) 75.7 H, Lymph % (Auto) 16.3 L , [place] % (Auto) 6.1, Eos % (Auto) 0.2, Baso % (Auto) 0.2, Absolute Neuts (auto) 6.2, Absolute Lymphs (auto) 1.33, Nucleated RBC % 0 05/03/22 16:46: PT 13.4, INR 1.1, APTT 31.9 05/03/22 16:46: Sodium 127 L, Potassium 3.0 L, Chloride 89 L, Carbon Dioxide 26.0, Anion Gap 12, BUN 51 H, Creatinine 4.94 H, Estim Creat Clear Calc 8.50, Est GFR (MDRD) Af Amer 11 L, Est GFR (MDRD) Non-Af 9 L, BUN/Creatinine Ratio 10.3, Glucose 94, Calcium 8.9, Total Bilirubin 0.30, AST 40 H, ALT 15, Alkaline Phosphatase 102, Total Protein 6.7, Albumin 3.0 L, Globulin 3.7, Albumin/Globulin Ratio 0.8 L 05/03/22 16:46: Valproic Acid 92 05/03/22 17:10: Lactic Acid 0.8 05/03/22 17:30: Urine Color Yellow, Urine Clarity Cloudy, Urine pH 6.5, Ur Specific [place] 1.010, Urine Protein 100 H, Urine Glucose (UA) Normal, Urine Ketones Negative, Urine Occult Blood 250 H, Urine Nitrite Negative, Urine Bilirubin Negative, Urine Urobilinogen Normal, Ur Leukocyte Esterase 500 H, Urine RBC 10-25 SEEN, Urine WBC >100 SEEN, Ur Squamous Epith Cells 0-5 SEEN, Urine Bacteria 3+, Urine Mucus 0 SEEN Micro: Microbiology 05/03/22 17:00 Nasal Secretion SARS-CoV-2 Antigen (Rapid) - Final Rhythm Strip Rhythm Strip: Sinus Rhythm Rate: 69 Ectopy: None Assessment & Plan Assessment/Plan (1) Acute hypotension: (2) Urinary tract infection: (3) Acute kidney injury: (4) Generalized weakness: (5) Dehydration: (6) Hypokalemia: (7) Hyponatremia: PLAN: Plan Acute hypotension -Likely related dehydration as patient appears markedly dehydrated on presentation -Blood pressure is already improving in the emergency department after 1 L of fluids being initiated -We will continue aggressive hydration -Hold antihypertensives -Trend blood pressures YANE on CKD stage IIIb secondary to dehydration/hypotension -Serum creatinine is 4.94 on admission -Aggressive hydration -Hold antihypertensives -Hold lisinopril -Hold meloxicam -Hold diuretics -We will defer any more aggressive work-up at this time but if not improved in the next 24 hours we will pursue urine lites and check retroperitoneal ultrasound Urinary tract infection -UA is significant for a UTI -Culture sent -Continue ceftriaxone as initiated in the emergency department Generalized weakness -We will have PT evaluate the patient -Likely related to dehydration/renal failure/UTI -Assistance with ambulation -Encourage mobility Hyponatremia -Suspect hypovolemic hyponatremia -Aggressive hydration -Sodium is 127 -Repeat BMP in a.m. -TSH is pending Hypokalemia -60 mill equivalents p.o. potassium -Recheck BMP in the a.m. -Check a.m. magnesium level Essential thrombocythemia -Platelet counts are currently stable Left wrist fracture -Happened within the last year -Wears a splint -Patient states it caused her increased debility -Case management for increased assistance Hypertension -Takes hydrochlorothiazide 25 mg daily/lisinopril 40 mg daily/metoprolol succinate 5 mg daily/prazosin 3 mg p.o. nightly -We will hold all antihypertensives currently given presentation on admission -PRN hydralazine available for systolic pressure greater than 160 Hyperlipidemia -Continue home rosuvastatin GERD -Continue home PPI History of multi personality disorder/panic attacks/manic episode/depression/dissociative identity disorder -Continue Lamictal -Continue valproic acid -Level obtained on admission and is therapeutic History of substance abuse -Patient reports cocaine was drug of choice -Continue q. monthly buprenorphine subcutaneously DVT prophylaxis -Heparin -SCDs CODE STATUS -Full code Charges/Coding Visit Charges Inpatient E&M: 14443 Init Hosp L3
[2022-05-03] MEDS: Ceftriaxone 1 GM/50 ML BAG IV (18:30)
[2022-05-03] MEDS: Potassium Chloride Oral Tablet 20 MEQ 60 MEQ PO (19:30)
[2022-05-03] MEDS: 0.9% Normal Saline 1,000 ML 150 ML IV (19:30)
--- NOTE | 2022-05-03 20:03 | EKG12_ITS ---
Test Reason : DYSRHYTHMIA Blood Pressure : / mmHG Vent. Rate : 074 BPM Atrial Rate : 074 BPM P-R Int : 222 ms QRS Dur : 094 ms QT Int : 418 ms P-R-T Axes : 035 076 065 degrees QTc Int : 463 ms Sinus rhythm with 1st degree A-V block with Premature supraventricular complexes Nonspecific ST and T wave abnormality Abnormal ECG When compared with ECG of 03-MAY-2022 17:13, Premature supraventricular complexes are now Present Nonspecific T wave abnormality, worse in Lateral leads Confirmed by CORKY SEALS, FARHEEN ([id number]), rewrite editor ROXANNE RYAN ([id number]) on 05/13/2022 11:15:50 AM Referred By: AUTUMN Confirmed By:FARHEEN FRIED MD
[2022-05-03] MEDS: Heparin Injection (Vial) 5,000 UNIT/ML VIAL 5000 UNIT SC (21:26)
[2022-05-03] MEDS: Pramipexole Di-HCl 0.125 MG Tablet PO (21:26)
[2022-05-03] MEDS: Atorvastatin Calcium 80 MG Tablet PO (21:26)
[2022-05-03] MEDS: Divalproex (ER) 500 MG Tablet PO (21:27)
[2022-05-03] MEDS: lamoTRIgine 100 MG Tablet 200 MG PO (21:28)
[2022-05-04] VITALS (14 sets, daily range): BP systolic 89–138; BP diastolic 53–94; PULSE 63–80; RESP 18; TEMP 36.5–36.6; O2SAT 93–99
--- NOTE | 2022-05-04 00:06 | NURSING ---
nutrition supplement not ordered d/t allergy to [facility]
[2022-05-04] MEDS: 0.9% Normal Saline 1,000 ML 999 ML IV (02:09)
[2022-05-04] MEDS: 0.9% Normal Saline 1,000 ML 150 ML IV ×3 (03:24→17:08)
[2022-05-04 06:24] LABS: Absolute Lymphocyte Count 1.13 X10^3/uL (0.83-4.51); Absolute Neutrophil Count 4.7 X10^3/uL (2.0-7.7); Basophil# 0.01 X10^3/uL; Basophil% 0.2 % (0-1); Eosinophil# 0.03 X10^3/uL; Eosinophils% 0.5 % (0-5); Hematocrit 28.3 % (37-47); Hemoglobin 9.9 g/dL (12.0-15.0); Lymphocyte # 1.13 X10^3/ul (0.83-4.51); Lymphocyte % 17.6 % (19-41); Mean Corpuscular Hgb 31.4 pg (27.0-32.0); Mean Corpuscular Volume 89.8 fL (81-99); Mean Platelet Vol. 9.1 fl (6.2-12.0); Monocyte# 0.49 X10^3/uL; Monocyte% 7.6 % (0-10); NRBC Flagged by Analyzer 0 % (0-5); Neutrophil # 4.65 X10^3/uL (2.7-7.7); Neutrophil % 72.5 % (47-70); Platelet Count 244 K/mm3 (150-450); RBC Distribution Width CV 13.5 % (11.6-14.6); RBC Distribution Width SD 44.6 fl (35.1-43.9); Red Blood Count 3.15 M/mm3 (4.2-5.4); White Blood Count 6.4 K/mm3 (4.4-11.0)
[2022-05-04 07:12] LABS: Phosphorus 4.2 mg/dL (2.5-4.9)
[2022-05-04 07:13] LABS: ALB/GLOB Ratio 0.7 RATIO (0.9-2.4); AST(SGOT) 24 U/L (15-37); Alanine Aminotransfer ALT/SGPT 11 U/L (13-56); Alkaline Phosphatase 76 U/L (45-117); Anion Gap 6 (5-15); BUN 45 mg/dL (7-18); BUN/Creat Ratio 12.1 RATIO (10-20); Calcium,Total 7.4 mg/dL (8.5-10.1); Chloride 105 mmol/L (98-107); Creatinine, Serum 3.71 mg/dL (0.55-1.02); EST Glomerular Filtration Rate 13 mL/min (>60); Est Glom Filt Rate - Afr Amer 16 mL/min (>60); Estimated Creatinine Clearance 11.32 ml/min; Globulin 2.8 g/dL (2.2-4.2); Glucose 83 mg/dL (74-106); Magnesium 1.9 mg/dL (1.6-2.6); Potassium 3.1 mmol/L (3.5-5.1); Protein, Total 4.8 g/dL (6.4-8.2); Sodium Level 136 mmol/L (136-145)
[2022-05-04] MEDS: Ferrous Sulfate 325 MG Tablet PO (08:50)
[2022-05-04] MEDS: Heparin Injection (Vial) 5,000 UNIT/ML VIAL 5000 UNIT SC ×2 (10:42→21:40)
[2022-05-04] MEDS: Pantoprazole Sodium 40 MG Tablet PO (10:42)
[2022-05-04] MEDS: Divalproex (ER) 500 MG Tablet PO ×2 (10:43→21:41)
[2022-05-04] MEDS: Nystatin Powder 15gm Bottle 1 APPLIC TOPICAL ×2 (10:43→21:41)
--- NOTE | 2022-05-04 12:03 | PN.HOSP_ITS ---
Subjective Subjective Patient reports she feels much better. Ate a good breakfast. States she slept very soundly last evening. Happy to hear her renal function is improving. Objective Data Objective Data Vital Signs: Vital Signs Temp Pulse Resp BP Pulse Ox O2 Del Method 98 F 69 18 125/69 H 93 Room Air 05/04/22 10:00 05/04/22 10:00 05/04/22 10:00 05/04/22 10:00 05/04/22 10:00 05/04/22 10:00 Oxygen Delivery Method Room Air Weight: 84.005 kg Body Mass Index (BMI) 33.8 Intake & Output: Intake and Output for Last 24 Hours 05/02/22 05/03/22 05/04/22 23:59 23:59 23:59 Intake Total 1210 / 1210 3720 / 3720 Output Total 650 / 650 1525 / 1525 Balance 560 / 560 2195 / 2195 Lab / Micro Data Result Diagrams: 05/04/22 05:30 05/04/22 05:30 Labs: Laboratory Results - last 24 hr 05/03/22 16:46: WBC 8.1, RBC 3.96 L, Hgb 12.3, Hct 35.8 L, MCV 90.4, MCH 31.1, MCHC 34.4, RDW Std Deviation 44.0 H, RDW Coeff of Tami 13.3, Plt Count 293, MPV 9.3, Immature Gran % (Auto) 1.500 H, Neut % (Auto) 75.7 H, Lymph % (Auto) 16.3 L , [place] % (Auto) 6.1, Eos % (Auto) 0.2, Baso % (Auto) 0.2, Absolute Neuts (auto) 6.2, Absolute Lymphs (auto) 1.33, Nucleated RBC % 0 05/03/22 16:46: PT 13.4, INR 1.1, APTT 31.9 05/03/22 16:46: Sodium 127 L, Potassium 3.0 L, Chloride 89 L, Carbon Dioxide 26.0, Anion Gap 12, BUN 51 H, Creatinine 4.94 H, Estim Creat Clear Calc 8.50, Est GFR (MDRD) Af Amer 11 L, Est GFR (MDRD) Non-Af 9 L, BUN/Creatinine Ratio 10.3, Glucose 94, Calcium 8.9, Total Bilirubin 0.30, AST 40 H, ALT 15, Alkaline Phosphatase 102, Total Protein 6.7, Albumin 3.0 L, Globulin 3.7, Albumin/Globulin Ratio 0.8 L 05/03/22 16:46: Valproic Acid 92 05/03/22 17:10: Lactic Acid 0.8 05/03/22 17:30: Urine Color Yellow, Urine Clarity Cloudy, Urine pH 6.5, Ur Specific [place] 1.010, Urine Protein 100 H, Urine Glucose (UA) Normal, Urine Ketones Negative, Urine Occult Blood 250 H, Urine Nitrite Negative, Urine Bilirubin Negative, Urine Urobilinogen Normal, Ur Leukocyte Esterase 500 H, Urine RBC 10-25 SEEN, Urine WBC >100 SEEN, Ur Squamous Epith Cells 0-5 SEEN, Urine Bacteria 3+, Urine Mucus 0 SEEN 05/04/22 05:30: WBC 6.4, RBC 3.15 L, Hgb 9.9 L, Hct 28.3 L, MCV 89.8, MCH 31.4, MCHC 35.0, RDW Std Deviation 44.6 H, RDW Coeff of Tami 13.5, Plt Count 244, MPV 9.1, Immature Gran % (Auto) 1.600 H, Neut % (Auto) 72.5 H, Lymph % (Auto) 17.6 L , [place] % (Auto) 7.6, Eos % (Auto) 0.5, Baso % (Auto) 0.2, Absolute Neuts (auto) 4.7, Absolute Lymphs (auto) 1.13, Nucleated RBC % 0 05/04/22 05:30: Sodium 136, Potassium 3.1 L, Chloride 105, Carbon Dioxide 25.0, Anion Gap 6, BUN 45 H, Creatinine 3.71 H, Estim Creat Clear Calc 11.32, Est GFR (MDRD) Af Amer 16 L, Est GFR (MDRD) Non-Af 13 L, BUN/Creatinine Ratio 12.1, Glucose 83, Calcium 7.4 L, Magnesium 1.9, Total Bilirubin 0.20, AST 24, ALT 11 L , Alkaline Phosphatase 76, Total Protein 4.8 L, Albumin 2.0 L, Globulin 2.8, Albumin/Globulin Ratio 0.7 L, TSH 0.40 05/04/22 05:30: Phosphorus 4.2 Micro: Microbiology 05/03/22 17:00 Nasal Secretion SARS-CoV-2 Antigen (Rapid) - Final Radiography Diagnostic Testing: Radiology Impression Chest X-Ray 05/03/22 17:40 IMPRESSION: 1. Emphysematous changes and evidence of prior granulomatous infection. 2. Minimal left lower lobe atelectasis. Electronically Signed: Jacques Leonel, at 18:52 EDT , Rhythm Strip Rhythm Strip: Sinus Rhythm Rate: 69 Ectopy: None Physical Exam Const alert, oriented x3, no apparent distress and well nourished Constitutional Narrative: Upper middle-aged white female sitting up in bed sleeping-awakens easily, appears much older than stated age, appears comfortable and nontoxic General Appearance: cooperative HEENT normocephalic and head/scalp atraumatic HEENT Narrative: Dentition is poor, Mallampati is 2, no thrush Neck Neck Narrative: Trachea midline, no thyroid enlargement Resp normal respiratory effort, no retractions, no use of accessory muscles and clear to auscultation bilaterally Resp Narrative: Diffusely diminished but clear Auscultation: Negative for crackles, rales, rhonchi or wheezes Cardio regular rate, regular rhythm, S1 normal heart sound, S2 normal heart sound, no murmurs, no rub, no gallops, no clicks and no JVD GI normal to inspection, nondistended, normoactive bowel sounds, soft to palpation, non-tender and non-distended; Negative for hepatosplenomegaly Extremity no clubbing, cyanosis or edema Extremity Narrative: Pedal pulses are 2+ Neuro oriented x3, moves all extremities and no focal motor deficits Speech: speech normal Assessment & Plan Assessment/Plan (1) Acute hypotension: (2) Urinary tract infection: (3) Acute kidney injury: (4) Generalized weakness: (5) Dehydration: (6) Hypokalemia: (7) Hyponatremia: PLAN: Plan Acute hypotension -Likely related dehydration as patient appears markedly dehydrated on presentation -Resolved with hydration -Blood pressures from this morning are in the 120s over 60s -We will continue to hold antihypertensives at this time -Continue as needed antihypertensives -Cultures are pending however I do not believe the hypotension was related to i nfectious etiology YANE on CKD stage IIIb secondary to dehydration/hypotension -Serum creatinine is 4.94 on admission and down to 3.71 today -Continue aggressive hydration -Hold lisinopril -Hold meloxicam -Hold diuretics Urinary tract infection -UA is significant for a UTI -Culture pending -Continue ceftriaxone Generalized weakness -PT eval pending -Likely related to dehydration/renal failure/UTI -Assistance with ambulation -Encourage mobility Hyponatremia -Suspect hypovolemic hyponatremia -Resolved with hydration Hypokalemia - still low but improved -Repeat 60 mill equivalent oral dosing -Magnesium level is within normal limits -Recheck in a.m. Essential thrombocythemia -Platelet counts are currently stable Left wrist fracture -Happened within the last year -Wears a splint -Patient states it caused her increased debility -Case management for increased assistance Hypertension -Takes hydrochlorothiazide 25 mg daily/lisinopril 40 mg daily/metoprolol succinate 5 mg daily/prazosin 3 mg p.o. nightly -Continue to hold all antihypertensives as blood pressure is normalizing however in normal range at this time -PRN hydralazine available for systolic pressure greater than 160 Hyperlipidemia -Continue home rosuvastatin GERD -Continue home PPI History of multi personality disorder/panic attacks/manic episode/depress ion/dissociative identity disorder -Continue Lamictal -Continue valproic acid -Level obtained on admission and is therapeutic History of substance abuse -Patient reports cocaine was drug of choice -Continue q. monthly buprenorphine subcutaneously DVT prophylaxis -Heparin -SCDs CODE STATUS -Full code Charges/Coding Visit Charges Inpatient E&M: 28354 Subs Hosp L2
[2022-05-04] MEDS: Potassium Chloride Oral Tablet 20 MEQ 60 MEQ PO (13:15)
[2022-05-04] MEDS: Pramipexole Di-HCl 0.125 MG Tablet PO (21:41)
[2022-05-04] MEDS: Atorvastatin Calcium 80 MG Tablet PO (21:41)
[2022-05-04] MEDS: lamoTRIgine 100 MG Tablet 200 MG PO (21:45)
[2022-05-04] MEDS: Ceftriaxone 1 GM/50 ML BAG IV (21:47)
[2022-05-05] VITALS (10 sets, daily range): BP systolic 128–152; BP diastolic 66–109; PULSE 66–77; RESP 16–18; TEMP 36.6–37.4; O2SAT 94–99
[2022-05-05] MEDS: Acetaminophen 325 MG Tablet 650 MG PO ×2 (01:19→08:45)
[2022-05-05 06:22] LABS: Absolute Neutrophil Count 4.4 X10^3/uL (2.0-7.7); Basophil# 0.02 X10^3/uL; Basophil% 0.3 % (0-1); Eosinophil# 0.07 X10^3/uL; Hematocrit 30.5 % (37-47); Hemoglobin 10.1 g/dL (12.0-15.0); Lymphocyte % 20.7 % (19-41); Mean Corp Hgb Conc 33.1 g/dL (32-36); Mean Corpuscular Hgb 30.9 pg (27.0-32.0); Mean Corpuscular Volume 93.3 fL (81-99); Monocyte# 0.65 X10^3/uL; Monocyte% 9.6 % (0-10); NRBC Flagged by Analyzer 0 % (0-5); Neutrophil # 4.41 X10^3/uL (2.7-7.7); Neutrophil % 65.4 % (47-70); Platelet Count 257 K/mm3 (150-450); RBC Distribution Width CV 14.1 % (11.6-14.6); RBC Distribution Width SD 48.3 fl (35.1-43.9); Red Blood Count 3.27 M/mm3 (4.2-5.4); White Blood Count 6.8 K/mm3 (4.4-11.0)
[2022-05-05] MEDS: 0.9% Normal Saline 1,000 ML 150 ML IV ×2 (06:51)
[2022-05-05 06:53] LABS: Anion Gap 10 (5-15); BUN 34 mg/dL (7-18); BUN/Creat Ratio 13.4 RATIO (10-20); Calcium,Total 8.2 mg/dL (8.5-10.1); Chloride 106 mmol/L (98-107); Creatinine, Serum 2.54 mg/dL (0.55-1.02); EST Glomerular Filtration Rate 20 mL/min (>60); Est Glom Filt Rate - Afr Amer 24 mL/min (>60); Estimated Creatinine Clearance 16.53 ml/min; Glucose 91 mg/dL (74-106); Potassium 3.5 mmol/L (3.5-5.1); Sodium Level 140 mmol/L (136-145)
[2022-05-05] MEDS: Ferrous Sulfate 325 MG Tablet PO (08:44)
--- NOTE | 2022-05-05 09:55 | CASEMGMT ---
Addendum entered by Azucena Henley 05/05/22 10:34: Pt reports she also goes to AA meetings on Thursday night and her neighbor takes her. TC to pt dtr to discuss dc plan. She states pt grandson is coming up from [place] but he is not going to be living with the patient. She states she feels pt can return home with the assistance of her aide. Discussed HHC and she states that is my mother's decision. She states she is going to try to get more assistance from [facility]. She also states she will be stopping by daily to check on her. Original Note: MARIBELL DRAKE Assessment: Face to Face with pt for initial transition planning/care coordination assessment. MARIBELL DRAKE introduced self and role at [facility], pt voices understanding and consents to assessment. Pt is A/O x4 and answers all questions appropriately at this time. Pt sitting up in bed in no distress. Care providers, pharmacy, and demographics verified/updated. Admitting Dx: dehydration PCP: Oli Specialists:Drew, onc; [place] psychiatrist; bella Saldana Preferred Pharmacy: [facility]- receives meds in bubble packs Insurance: [email or web address] [facility] Prescription Benefit: yes LW/HPOA: Pt has a LW on file at [facility]. Pt denies having a DPOA. She denies need for resources regarding AD. LNOK: Lizy Miller, dtr; nitesh Chaney Living Arrangements: Pt lives alone in a ground level apt with no steps to enter. Pt reports she is dependent on her aide for bathing, dressing, laundry, housekeeping tasks as well as groceries. Pt denies concerns at home. Transportation: Pt uses a taxi for transportation. DME/HHC/SNF: Pt has grab bars in the bathroom, lift chair, pull ups and chux from [facility], walker, cane, BSC and shower chair. Pt reports she is getting a walk in shower from her lining caser. Pt has had [facility] HHC in the past and denies SNF stays. Pt states no concerns with going home at time of dc. She states she has a total routine and doesn't want anyone else to interfere with it. She denies need for HHC. States she has fallen in September and had a cast, now with a splint on her right wrist/forearm area. Pt has an aide M/W/F through [employer] for 3 hours Thursday, 2 hours Thursday, and 3 hours Thursday. Her lining caser from [facility] is Vane. Pt states her grandson is moving in with her from [place] and he is traveling here now. She also has a neighbor who is an aide that checks on her day and night. Pt designates her dtr Lizy Miller as contact for dc planning. She cannot find her grandson's phone number in her phone. Pt states no further concerns/needs. CM to follow. Advised pt to ask CM if any further question/concerns/needs arise, voices understanding. Pt Goal: Home with her aide services resuming. Plan: Home with aide services resuming, notified CAROLYNE.
[2022-05-05] MEDS: Pantoprazole Sodium 40 MG Tablet PO (10:50)
[2022-05-05] MEDS: Nystatin Powder 15gm Bottle 1 APPLIC TOPICAL ×2 (10:50→22:05)
[2022-05-05] MEDS: Heparin Injection (Vial) 5,000 UNIT/ML VIAL 5000 UNIT SC ×2 (10:51→22:02)
[2022-05-05] MEDS: Divalproex (ER) 500 MG Tablet PO ×2 (10:52→22:02)
--- NOTE | 2022-05-05 11:24 | PCM.PN.HOSP ---
Subjective Subjective Follow-up on hypotension/YANE on CKD stage IIIb/UTI: Patient was seen and examined. She denied any new complaints. No acute events overnight. Her creatinine is slowly coming down. Objective Data Objective Data Vital Signs: Vital Signs Temp Pulse Resp BP Pulse Ox O2 Del Method 98.2 F 69 18 143/109 H 94 Room Air 05/05/22 10:38 05/05/22 10:38 05/05/22 10:38 05/05/22 10:38 05/05/22 10:38 05/05/22 10:38 Oxygen Delivery Method Room Air Weight: 84.005 kg Body Mass Index (BMI) 33.8 Intake & Output: Intake and Output for Last 24 Hours 05/03/22 05/04/22 05/05/22 23:59 23:59 23:59 Intake Total 1210 / 1210 6360 / 6360 1300 / 1300 Output Total 650 / 650 1925 / 1925 750 / 750 Balance 560 / 560 4435 / 4435 550 / 550 Lab / Micro Data Result Diagrams: 05/05/22 05:27 05/05/22 05:27 Labs: Laboratory Results - last 24 hr 05/05/22 05:27: WBC 6.8, RBC 3.27 L, Hgb 10.1 L, Hct 30.5 L, MCV 93.3, MCH 30.9, MCHC 33.1 D, RDW Std Deviation 48.3 H, RDW Coeff of Tami 14.1, Plt Count 257, MPV 9.0, Immature Gran % (Auto) 3.000 H, Neut % (Auto) 65.4, Lymph % (Auto) 20.7, [place] % (Auto) 9.6, Eos % (Auto) 1.0, Baso % (Auto) 0.3, Absolute Neuts (auto) 4.4, Absolute Lymphs (auto) 1.40, Nucleated RBC % 0 05/05/22 05:27: Sodium 140, Potassium 3.5, Chloride 106, Carbon Dioxide 24.0, Anion Gap 10, BUN 34 H, Creatinine 2.54 H, Estim Creat Clear Calc 16.53, Est GFR (MDRD) Af Amer 24 L, Est GFR (MDRD) Non-Af 20 L, BUN/Creatinine Ratio 13.4, Glucose 91, Calcium 8.2 L Micro: Microbiology 05/03/22 17:30 Urine Catheter - Catheter Urine Culture - Preliminary GNR lactose profile saw setup operator GNR lactose profile saw setup operator#2 05/03/22 17:00 Nasal Secretion SARS-CoV-2 Antigen (Rapid) - Final Rhythm Strip Rhythm Strip: Sinus Rhythm Rate: 69 Ectopy: None Physical Exam Narrative Physical exam: General: Alert, Oriented x3, Cooperative, No apparent distress HEENT: Atraumatic Oral: Moist Mucosa Neck: Supple Lungs: Clear to auscultation Cardiovascular: HS I+II, regular, no murmurs Abdomen: Bowel Sounds Present, Soft, Non Tender Extremities: No edema Skin: No rashes, No breakdown Neurological: Grossly intact Psych/Mental Status: Appropriate Assessment & Plan Assessment/Plan (1) Acute hypotension: (2) Urinary tract infection: (3) Acute kidney injury: (4) Generalized weakness: (5) Dehydration: (6) Hypokalemia: (7) Hyponatremia: PLAN: Plan 1. Acute hypotension secondary to dehydration, resolved 2. YANE on CKD stage IIIb secondary to dehydration/hypotension, improving Baseline creatinine of 0.78, creatinine on admission was 4.94. Creatinine today is 3.54. Continue with aggressive IV hydration Continue to hold lisinopril, meloxicam and diuretics 3. Acute GNR UTI, continue on IV ceftriaxone(day2) 4. Hyponatremia, hypovolemic, resolved, sodium today is 140 5. Debility, related to the above, improved, PT and OT to evaluate and treat 6. Recent left wrist fracture, patient seen in splint 7. Hyperlipidemia, continue statin 8. GERD continue on PPI Continue home PPI 9. 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 DVT prophylaxis Heparin subcu Charges/Coding Visit Charges Inpatient E&M: 04296 Subs Hosp L2
--- NOTE | 2022-05-05 13:56 | CASEMGMT ---
Social Work Pt has services through [facility]. CAROLYNE spoke with coverage staff who state Pt Director Of Event Marketing is Vane Paz ([phone]), receives Home Health Aids through [facility] Mon and Fri for 3 ours and Wed for 2 hours, 14 meals a week and transportation. CAROLYNE will updated Vane when pt is discharged home. GUERRERO Godoy
--- NOTE | 2022-05-05 14:46 | CASEMGMT ---
Addendum entered by Azucena Henley 05/05/22 14:51: Pt did not want the list of [facility] agencies. Original Note: RN VIDAL reviewed therapy notes and went in to speak with pt. Pt states therapy was rough. Discussed HHC again, pt is now interested and asks if she can have [facility]. Offered to provide pt with a list of [facility] providers including quality and resource use data and consistent with the patient?s preferred geographic region, medical needs, and insurance network. TC faizan Gant at [facility], referral placed and accepted. Updated hospitalist per request. Faxed initial referral to [facility].
[2022-05-05] MEDS: 0.9% Normal Saline 1,000 ML 100 ML IV (17:31)
[2022-05-05] MEDS: Pramipexole Di-HCl 0.125 MG Tablet PO (22:02)
[2022-05-05] MEDS: Atorvastatin Calcium 80 MG Tablet PO (22:02)
[2022-05-05] MEDS: lamoTRIgine 100 MG Tablet 200 MG PO (22:02)
[2022-05-05] MEDS: Ceftriaxone 1 GM/50 ML BAG IV (22:05)
[2022-05-06] VITALS (8 sets, daily range): BP systolic 136–151; BP diastolic 69–88; PULSE 69–84; RESP 16–18; TEMP 36.3–37.1; O2SAT 93–96
[2022-05-06] MEDS: 0.9% Normal Saline 1,000 ML 100 ML IV (03:54)
[2022-05-06 06:35] LABS: Absolute Lymphocyte Count 1.59 X10^3/uL (0.83-4.51); Basophil# 0.02 X10^3/uL; Basophil% 0.2 % (0-1); Eosinophil# 0.09 X10^3/uL; Hematocrit 30.9 % (37-47); Hemoglobin 10.2 g/dL (12.0-15.0); Lymphocyte # 1.59 X10^3/ul (0.83-4.51); Lymphocyte % 18.5 % (19-41); Mean Corpuscular Hgb 31.2 pg (27.0-32.0); Mean Corpuscular Volume 94.5 fL (81-99); Mean Platelet Vol. 9.1 fl (6.2-12.0); Monocyte# 0.73 X10^3/uL; Monocyte% 8.5 % (0-10); NRBC Flagged by Analyzer 0 % (0-5); Neutrophil # 5.98 X10^3/uL (2.7-7.7); Neutrophil % 69.6 % (47-70); Platelet Count 258 K/mm3 (150-450); RBC Distribution Width CV 13.9 % (11.6-14.6); RBC Distribution Width SD 47.4 fl (35.1-43.9); Red Blood Count 3.27 M/mm3 (4.2-5.4); White Blood Count 8.6 K/mm3 (4.4-11.0)
[2022-05-06 07:01] LABS: Albumin, Serum 2.1 g/dL (3.2-5.0); BUN 24 mg/dL (7-18); BUN/Creat Ratio 13.2 RATIO (10-20); Calcium,Total 8.4 mg/dL (8.5-10.1); Chloride 105 mmol/L (98-107); Creatinine, Serum 1.82 mg/dL (0.55-1.02); EST Glomerular Filtration Rate 29 mL/min (>60); Est Glom Filt Rate - Afr Amer 35 mL/min (>60); Estimated Creatinine Clearance 23.07 ml/min; Glucose 86 mg/dL (74-106); Potassium 3.4 mmol/L (3.5-5.1); Sodium Level 137 mmol/L (136-145)
[2022-05-06] MEDS: Potassium Chloride Oral Tablet 20 MEQ 40 MEQ PO (08:04)
[2022-05-06] MEDS: Acetaminophen 325 MG Tablet 650 MG PO ×2 (08:04→14:31)
[2022-05-06] MEDS: Ferrous Sulfate 325 MG Tablet PO (08:05)
--- NOTE | 2022-05-06 09:19 | CASEMGMT ---
Social Work Per physician pt is ready for discharge today. SW placed call to pt D[employer] Att[employer] Vane Denney and updated on discharge plan and new home health and requested services are started back up. Discharge orders to be faxed to [facility] when they are available. GUERRERO Godoy
--- NOTE | 2022-05-06 09:20 | CASEMGMT ---
Addendum entered by Azucena Henley 05/06/22 11:55: Spoke with Phill, they do not drop ship tub benches, [facility] does. MARIBELL DRAKE in to pt room. Pt agreeable to taking script to [facility] for extended tub bench and rx provided. Reviewed dc plans with pt as far as [facility] coming to see her and all questions answered. Pt denies further questions. Addendum entered by Azucena Henley 05/06/22 11:10: Faxed dc instructions and summary to Vane Denney at [facility] as well as [facility]. TC to [facility], spoke with Mary, she is aware pt is dc'ing today. Original Note: MARIBELL DRAKE into pt room, pt states she needs an extended tub bench for home. Provided pt with a local in network list of DME companies, pt denies preference. She thinks [facility] will provide but made her aware they will not.
--- NOTE | 2022-05-06 10:47 | DCINST_ITS ---
Discharge Instructions Diet Discharge Diet: Low fat / Low cholesterol and 2000 mg Sodium Diet Activity Discharge Activity: Return to Normal Activity Follow Up Care Test Results: Test results from this visit will be discussed in further detail at your follow- up appointment, if applicable. Discharge Plan Admission Admit Date/Time: 05/03/22 18:22 Primary Reason for Your Visit: Acute dehydration Attending Provider: Lucia Berkowitz Primary Care Provider: Esperanza Baird Consulting Providers: Mehreen Denney Instructions Additional Instructions / Restrictions: Take note of changes to your medications. You need to follow-up with your primary care doctor within 1 week. You will need repeat blood work within 1 week to check on your kidney function. Continue to keep yourself hydrated. Discharge Orders/Prescriptions Prescriptions: New potassium chloride [Klor-Con M20] 20 mEq tablet,ER particles/crystals 20 meq PO DAILY 5 Days Qty: 5 0RF Continued acetaminophen [Tylenol Arthritis Pain] 650 mg tablet extended release 650 mg PO Q12H ropinirole 0.25 mg tablet 0.25 mg PO QHS Qty: 30 1RF Rx Instructions: administer 1-3 hours before bedtime buprenorphine 100 mg/0.5 mL solution, extended rel syringe 100 mg subcut QMONTH calcium carbonate 600 mg calcium (1,500 mg) tablet 600 mg PO BID Qty: 180 1RF (DME) Handicap Placard See Rx Instructions .ROUTE .MEDSUPPLY Qty: 1 0RF Rx Instructions: As directed, length of time 5 years lamotrigine 200 mg tablet 200 mg PO QHS Qty: 90 0RF (DME) cane tips [Quad Cane Tips] Misc See Rx Instructions .ROUTE .MEDSUPPLY Qty: 2 0RF Rx Instructions: As directed (DME) cane Device See Rx Instructions .ROUTE .MEDSUPPLY Qty: 1 0RF Rx Instructions: As directed, Quad cane prazosin 1 mg capsule 3 mg PO QHS Qty: 90 1RF miconazole nitrate 2 % powder 1 applic topical BID Qty: 85 3RF (DME) POCKET CHAMBER Spacer See Rx Instructions .ROUTE .MEDSUPPLY Qty: 1 0RF Rx Instructions: As directed metoprolol succinate 50 mg tablet extended release 24 hr 50 mg PO DAILY Qty: 90 3RF omeprazole 40 mg capsule,delayed release(DR/EC) 40 mg PO DAILY Qty: 90 1RF rosuvastatin 40 mg tablet 40 mg PO DAILY Qty: 90 1RF ferrous sulfate 324 mg (65 mg iron) tablet,delayed release (DR/EC) 324 mg PO DAILY Qty: 90 1RF divalproex 500 mg tablet extended release 24 hr 500 mg PO BID Qty: 180 1RF metoprolol succinate 25 mg tablet extended release 24 hr 25 mg PO DAILY Qty: 90 1RF Discontinued meloxicam [Mobic] 15 mg tablet 15 mg PO DAILY Qty: 21 0RF nicotine 21-14-7 mg/24 hr patch, TD daily, sequential See Rx Instructions transdermal .COMPLEX Qty: 56 0RF Rx Instructions: apply 1-21 mg NICOTINE PATCH daily for 28 days; follow with 1-14 mg PATCH daily for 14 days, then 1-7mg PATCH daily for 14 days transdermal lisinopril 40 mg tablet 40 mg PO DAILY Qty: 90 1RF hydrochlorothiazide 25 mg tablet 25 mg PO DAILY Qty: 90 1RF Referrals / Follow Up: Esperanza Baird MD [Primary Care Provider] - In 1 Week Vane Rosen MD [STAFF PHYSICIAN] - Within 1 Month (Urinary issues-Call to make appt) Disposition Disposition (needs filled in before D/C Order can be placed): Home Health Service
[2022-05-06] MEDS: Divalproex (ER) 500 MG Tablet PO (10:56)
[2022-05-06] MEDS: Pantoprazole Sodium 40 MG Tablet PO (10:56)
[2022-05-06] MEDS: Heparin Injection (Vial) 5,000 UNIT/ML VIAL 5000 UNIT SC (10:56)
[2022-05-06] MEDS: Nystatin Powder 15gm Bottle 1 APPLIC TOPICAL (10:56)
[2022-05-06] MEDS: Metoprolol(XL)Succ 25 MG Tablet PO (10:57)
--- NOTE | 2022-05-06 11:01 | DS.PCM_ITS ---
Providers Date of Admission: 05/03/22 Date of Discharge: 05/06/22 Primary Care Physician: Dr. Esperanza Baird MD Reason For Visit: DEHYDRATION Diagnosis Discharge Diagnosis (1) Acute hypotension: Status: Resolved Code(s): I95.9 - Hypotension, unspecified (2) Urinary tract infection: Status: Resolved Code(s): N39.0 - Urinary tract infection, site not specified (3) Acute kidney injury: Status: Acute Code(s): N17.9 - Acute kidney failure, unspecified (4) Generalized weakness: Status: Acute Code(s): R53.1 - Weakness (5) Dehydration: Status: Resolved Code(s): E86.0 - Dehydration (6) Hypokalemia: Status: Acute Code(s): E87.6 - Hypokalemia (7) Hyponatremia: Status: Chronic Code(s): E87.1 - Hypo-osmolality and hyponatremia Medications at Discharge Home Medications acetaminophen 650 mg tablet,extended release (Tylenol Arthritis Pain) 650 mg PO Q12H 01/23/21 calcium carbonate 600 mg calcium (1,500 mg) tablet 600 mg PO BID #180 tabs 01/29/21 Handicap Placard #1 ea 02/07/21 lamotrigine 200 mg tablet 200 mg PO QHS #90 tabs 02/22/21 cane #1 ea 03/04/21 cane tips (Quad Cane Tips) #2 ea 03/04/21 prazosin 1 mg capsule 3 mg PO QHS #90 caps 03/21/21 miconazole nitrate 2 % topical powder 1 applic topical BID #85 grams 05/15/21 inhalational spacing device (POCKET CHAMBER spacer) #1 ea 06/26/21 ropinirole 0.25 mg tablet 0.25 mg PO QHS #30 tabs 07/11/21 buprenorphine 100 mg/0.5 mL solution,exten.rel.subcutaneous syringe 100 mg subcut QMONTH 08/07/21 metoprolol succinate 50 mg tablet,extended release 24 hr 50 mg PO DAILY #90 tabs 12/02/21 omeprazole 40 mg capsule,delayed release 40 mg PO DAILY #90 caps 02/24/22 rosuvastatin 40 mg tablet 40 mg PO DAILY #90 tabs 02/27/22 ferrous sulfate 324 mg (65 mg iron) tablet,delayed release 324 mg PO DAILY #90 tabs 03/19/22 divalproex 500 mg tablet,extended release 24 hr 500 mg PO BID #180 tabs 04/30/22 metoprolol succinate 25 mg tablet,extended release 24 hr 25 mg PO DAILY #90 tabs 04/30/22 potassium chloride 20 mEq tablet,extended release(part/cryst) (Klor-Con M) 20 meq PO DAILY 5 days #5 tabs 05/06/22 Hospital Course Operations None Procedures None Summary of Care Provided Minutes Spent on Discharge: 40 Hospital Course: 71-year-old female with multiple comorbidities who comes in with dizziness ongoing for about 2 weeks. She also complained of urine incontinence as well as urinary frequency and dysuria. She was found to be hypotensive blood pressure 94/55. Her usual blood pressure was in the 120s systolic. Her admitting blood work was abnormal with a sodium of 127, potassium 3.0, chloride 89, BUN 51, serum creatinine 4.94. Her baseline creatinine is 1.1-1.3. [facility] and managed on IV fluids. Her home meloxicam, hydrochlorothiazide and lisinopril were held. Patient was also started on IV ceftriaxone for UTI. Electrolytes slowly improved-hyponatremia, with IV fluids. She had hypokalemia that was replaced. Patient blood pressure was much better. She was continued on metoprolol. At discharge, her hydrochlorothiazide, lisinopril was, still held. She was continued on metoprolol and prazosin. She was seen by PT and OT and recommended to be discharged to nursing home facility. Patient however declined and wanted home health care. She has home health aides and her grandson was also coming to live with her. Patient knows to follow-up with her primary care doctor within 1 week and also to have blood work done within 1 week to check on her kidney function. She also discharged on 5 days of oral potassium. Sheknows that it is important that she has blood work done to make sure her electrolytes and kidney function were stable. Physical Exam Const Constitutional Narrative: Physical exam: General: Alert, Oriented x3, Cooperative, No apparent distress HEENT: Atraumatic Oral: Moist Mucosa Neck: Supple Lungs: Clear to auscultation Cardiovascular: HS I+II, regular, no murmurs Abdomen: Bowel Sounds Present, Soft, Non Tender Extremities: No edema Skin: No rashes, No breakdown Neurological: Grossly intact Psych/Mental Status: Appropriate Weight / BMI Weight Weight: 84.005 kg Body Mass Index (BMI) 33.8 ABG / Lab / Microbiology Data Result Diagrams: 05/06/22 05:15 05/06/22 05:15 Laboratory: Laboratory Results - last 24 hr 05/06/22 05:15: WBC 8.6, RBC 3.27 L, Hgb 10.2 L, Hct 30.9 L, MCV 94.5, MCH 31.2, MCHC 33.0, RDW Std Deviation 47.4 H, RDW Coeff of Tami 13.9, Plt Count 258, MPV 9.1, Immature Gran % (Auto) 2.200 H, Neut % (Auto) 69.6, Lymph % (Auto) 18.5 L, [place] % (Auto) 8.5, Eos % (Auto) 1.0, Baso % (Auto) 0.2, Absolute Neuts (auto) 6.0, Absolute Lymphs (auto) 1.59, Nucleated RBC % 0 05/06/22 05:15: Sodium 137, Potassium 3.4 L, Chloride 105, Carbon Dioxide 25.0, BUN 24 H, Creatinine 1.82 H, Estim Creat Clear Calc 23.07, Est GFR (MDRD) Af Amer 35 L, Est GFR (MDRD) Non-Af 29 L, BUN/Creatinine Ratio 13.2, Glucose 86, Calcium 8.4 L, Phosphorus 3.0, Albumin 2.1 L Microbiology: Microbiology 05/03/22 17:30 Urine Catheter - Catheter Urine Culture - Final Klebsiella pneumoniae sp pneum 05/03/22 17:00 Nasal Secretion SARS-CoV-2 Antigen (Rapid) - Final D/C Instructions Discharge Diet: Low fat / Low cholesterol and 2000 mg Sodium Diet Meaningful Use Info Meaningful Use Diagnoses (Choose all that apply): None applicable Discharge Plan Admission Admit Date/Time: 05/03/22 18:22 Primary Reason for Your Visit: Acute dehydration Attending Provider: Lucia Berkowitz Primary Care Provider: Esperanza Baird Consulting Providers: Mehreen Denney Instructions Additional Instructions / Restrictions: Take note of changes to your medications. You need to follow-up with your primary care doctor within 1 week. You will need repeat blood work within 1 week to check on your kidney function. Continue to keep yourself hydrated. Discharge Orders/Prescriptions Prescriptions: New potassium chloride [Klor-Con M20] 20 mEq tablet,ER particles/crystals 20 meq PO DAILY 5 Days Qty: 5 0RF Continued acetaminophen [Tylenol Arthritis Pain] 650 mg tablet extended release 650 mg PO Q12H ropinirole 0.25 mg tablet 0.25 mg PO QHS Qty: 30 1RF Rx Instructions: administer 1-3 hours before bedtime buprenorphine 100 mg/0.5 mL solution, extended rel syringe 100 mg subcut QMONTH calcium carbonate 600 mg calcium (1,500 mg) tablet 600 mg PO BID Qty: 180 1RF (DME) Handicap Placard See Rx Instructions .ROUTE .MEDSUPPLY Qty: 1 0RF Rx Instructions: As directed, length of time 5 years lamotrigine 200 mg tablet 200 mg PO QHS Qty: 90 0RF (DME) cane tips [Quad Cane Tips] Misc See Rx Instructions .ROUTE .MEDSUPPLY Qty: 2 0RF Rx Instructions: As directed (DME) cane Device See Rx Instructions .ROUTE .MEDSUPPLY Qty: 1 0RF Rx Instructions: As directed, Quad cane prazosin 1 mg capsule 3 mg PO QHS Qty: 90 1RF miconazole nitrate 2 % powder 1 applic topical BID Qty: 85 3RF (DME) POCKET CHAMBER Spacer See Rx Instructions .ROUTE .MEDSUPPLY Qty: 1 0RF Rx Instructions: As directed metoprolol succinate 50 mg tablet extended release 24 hr 50 mg PO DAILY Qty: 90 3RF omeprazole 40 mg capsule,delayed release(DR/EC) 40 mg PO DAILY Qty: 90 1RF rosuvastatin 40 mg tablet 40 mg PO DAILY Qty: 90 1RF ferrous sulfate 324 mg (65 mg iron) tablet,delayed release (DR/EC) 324 mg PO DAILY Qty: 90 1RF divalproex 500 mg tablet extended release 24 hr 500 mg PO BID Qty: 180 1RF metoprolol succinate 25 mg tablet extended release 24 hr 25 mg PO DAILY Qty: 90 1RF Discontinued meloxicam [Mobic] 15 mg tablet 15 mg PO DAILY Qty: 21 0RF nicotine 21-14-7 mg/24 hr patch, TD daily, sequential See Rx Instructions transdermal .COMPLEX Qty: 56 0RF Rx Instructions: apply 1-21 mg NICOTINE PATCH daily for 28 days; follow with 1-14 mg PATCH daily for 14 days, then 1-7mg PATCH daily for 14 days transdermal lisinopril 40 mg tablet 40 mg PO DAILY Qty: 90 1RF hydrochlorothiazide 25 mg tablet 25 mg PO DAILY Qty: 90 1RF Referrals / Follow Up: Esperanza Baird MD [Primary Care Provider] - In 1 Week Vane Rosen MD [STAFF PHYSICIAN] - Within 1 Month (Urinary issues-Call to make appt) Disposition Disposition (needs filled in before D/C Order can be placed): Home Health Service Charges/Coding Visit Charges Inpatient E&M: 58147 Disch Hosp
--- NOTE | 2022-05-23 12:44 | CM.ED ---
Patient called this card writer hand and asked who her follow up with in regards to urology appointment. SW reviewed patient's discharge instructions and provided her with referral name of urologist as well as phone number and address. Patient said that she is doing great. Natalee JACOB
== END 2022-05-06 16:28 | disposition home health service (06) | DRG 683 ==
LOC: ED 18:14 → MS3 18:46
PROVIDERS: Admitting Provider Internal Medicine; Emergency Provider Emergency Medicine; PCP Internal Medicine; Visit Provider Internal Medicine
DX: N17.9 Acute kidney failure, unspecified (principal); E86.0 Dehydration; I95.9 Hypotension, unspecified; N39.0 Urinary tract infection, site not specified; R32 Unspecified urinary incontinence; F30.9 Manic episode, unspecified; N18.32 Chronic kidney disease, stage 3b; J44.9 Chronic obstructive pulmonary disease, unspecified; D47.3 Essential (hemorrhagic) thrombocythemia; E87.1 Hypo-osmolality and hyponatremia; K21.9 Gastro-esophageal reflux disease without esophagitis; E87.6 Hypokalemia; I12.9 Hypertensive chronic kidney disease with stage 1 through stage 4 chronic kidney disease, or unspecified chronic kidney disease; E78.5 Hyperlipidemia, unspecified; F44.81 Dissociative identity disorder; F41.0 Panic disorder [episodic paroxysmal anxiety]; S62.92XD Unspecified fracture of left hand, subsequent encounter for fracture with routine healing; X58.XXXD Exposure to other specified factors, subsequent encounter; F17.210 Nicotine dependence, cigarettes, uncomplicated; Z20.822 Contact with and (suspected) exposure to COVID-19; Z79.1 Long term (current) use of non-steroidal anti-inflammatories (NSAID); Z79.899 Other long term (current) drug therapy
CPT/HCPCS: 36415; 71045; 80048; 80053; 80069; 80164; 81001; 83605; 83735; 84100; 84443; 85025; 85610; 85730; 87040; 87077; 87086; 87088; 87186; 87811; 93005; 97162; 97802; 99251; 99285; 99406; J7030; J7050; P9612; A4216; G0463

== ENCOUNTER → 2022-05-08 | Outpatient (CLI) | payer MEDICARE, MEDICAID, SELFPAY ==
[2022-05-08 16:34] LABS: Absolute Lymphocyte Count 1.52 X10^3/uL (0.83-4.51); Absolute Neutrophil Count 6.6 X10^3/uL (2.0-7.7); Basophil# 0.02 X10^3/uL; Basophil% 0.2 % (0-1); Eosinophil# 0.12 X10^3/uL; Eosinophils% 1.3 % (0-5); Hematocrit 32.8 % (37-47); Lymphocyte # 1.52 X10^3/ul (0.83-4.51); Lymphocyte % 16.7 % (19-41); Mean Corp Hgb Conc 33.5 g/dL (32-36); Mean Corpuscular Hgb 31.5 pg (27.0-32.0); Mean Platelet Vol. 8.7 fl (6.2-12.0); Monocyte# 0.64 X10^3/uL; NRBC Flagged by Analyzer 0 % (0-5); Neutrophil # 6.57 X10^3/uL (2.7-7.7); Neutrophil % 72.3 % (47-70); Platelet Count 279 K/mm3 (150-450); RBC Distribution Width CV 13.9 % (11.6-14.6); RBC Distribution Width SD 47.2 fl (35.1-43.9); Red Blood Count 3.49 M/mm3 (4.2-5.4); White Blood Count 9.1 K/mm3 (4.4-11.0)
[2022-05-08 16:54] LABS: Anion Gap 5 (5-15); BUN 13 mg/dL (7-18); BUN/Creat Ratio 10.7 RATIO (10-20); Calcium,Total 8.6 mg/dL (8.5-10.1); Chloride 101 mmol/L (98-107); Creatinine, Serum 1.21 mg/dL (0.55-1.02); EST Glomerular Filtration Rate 47 mL/min (>60); Est Glom Filt Rate - Afr Amer 57 mL/min (>60); Glucose 88 mg/dL (74-106); Potassium 4.4 mmol/L (3.5-5.1); Sodium Level 136 mmol/L (136-145)
== END | disposition home or self-care (01) ==
LOC: BIMLAB 16:04
PROVIDERS: PCP Internal Medicine; Referring Provider Physician Assistant; Visit Provider Physician Assistant
DX: E87.1 Hypo-osmolality and hyponatremia (principal); N17.9 Acute kidney failure, unspecified; E87.6 Hypokalemia; I95.9 Hypotension, unspecified; E86.0 Dehydration
CPT/HCPCS: 36415; 80048; 85025

== ENCOUNTER 2022-05-20 15:04 | Emergency (ER) | payer MEDICARE, MEDICAID, SELFPAY ==
[2022-05-20 15:05] VITALS: BP 116/61; PULSE 78; RESP 16; TEMP 36.9; O2SAT 93; BMI 34.6
--- NOTE | 2022-05-20 15:27 | EKG12_ITS ---
Test Reason : mental health Blood Pressure : / mmHG Vent. Rate : 076 BPM Atrial Rate : 076 BPM P-R Int : 194 ms QRS Dur : 090 ms QT Int : 372 ms P-R-T Axes : 061 080 069 degrees QTc Int : 418 ms Normal sinus rhythm Normal ECG Confirmed by CORKY SEALS, FARHEEN ([id number]), editor greeting card ROXANNE RYAN ([id number]) on 05/22/2022 1:57:15 PM Referred By: Tonya Confirmed By:FARHEEN FRIED MD
--- NOTE | 2022-05-20 15:31 | EDS_ITS ---
HPI HPI - Psych History of Present Illness Chief Complaint: Mental Health Informant: patient and EMS Narrative Narrative: 71-year-old female with a history of bipolar disorder states that she is having linnea. Patient states that its been 2 years since she has had a manic episode. She follows with a Dr. Mccall in [place] at the [facility]. She states 2 years ago she was hospitalized and they gave her Vraylar and her symptoms resol anastacia in 30 minutes. She states that she does not feel that she is manic but multiple friends and family are telling her that she is. She notes she did not sleep well last night but when I [place] back onto that she states no I slept. She denies any suicidal or homicidal ideation. Patient is observed talking to herself. She does appear internally stimulated. I do not see any self-harm behavior. There is nobody accompanying her. Patient's speech is pressured with flight of ideas and loose associations. She tells me what I need to do to treat her but in the same breath states that a psychiatrist should never listen to a psychiatric patient on how to treat them. Patient states that she has multiple personalities. [facility] Medical History Abdominal pain Actinic keratoses Basal cell carcinoma of right forehead Basal cell carcinoma of right medial cheek Basal cell carcinoma of upper lip Benign neoplasm of skin of cheek COPD (chronic obstructive pulmonary disease) Cutaneous candidiasis Debility Dissociative identity disorder Dizziness Flu vaccine need Frequent falls Hemangioma of face History of UTI Intertrigo Intradermal nevus Kidney failure Left ankle pain Left wrist fracture Manic episode Multiple personalities Neoplasm of skin of eyelid Neoplasm of skin of nose Neurofibroma of neck Panic attacks Urinary incontinence Home Medications acetaminophen 650 mg tablet,extended release (Tylenol Arthritis Pain) 650 mg PO Q12H 01/23/21 [History Last Taken Unknown] Handicap Placard #1 ea 02/07/21 [Rx Last Taken Unknown] lamotrigine 200 mg tablet 200 mg PO QHS #90 tabs 02/22/21 [Rx Last Taken Unkn own] cane #1 ea 03/04/21 [Rx Last Taken Unknown] cane tips (Quad Cane Tips) #2 ea 03/04/21 [Rx Last Taken Unknown] prazosin 1 mg capsule 3 mg PO QHS #90 caps 03/21/21 [Rx Last Taken Unknown] inhalational spacing device (POCKET CHAMBER spacer) #1 ea 06/26/21 [Rx Last Taken Unknown] buprenorphine 100 mg/0.5 mL solution,exten.rel.subcutaneous syringe 100 mg subcut QMONTH 08/07/21 [History Last Taken Unknown] metoprolol succinate 50 mg tablet,extended release 24 hr 50 mg PO DAILY #90 tabs 12/02/21 [Rx Last Taken Unknown] rosuvastatin 40 mg tablet 40 mg PO DAILY #90 tabs 02/27/22 [Rx Last Taken Unk nown] ferrous sulfate 324 mg (65 mg iron) tablet,delayed release 324 mg PO DAILY #90 tabs 03/19/22 [Rx Last Taken Unknown] divalproex 500 mg tablet,extended release 24 hr 500 mg PO BID #180 tabs 04/30/22 [Rx Last Taken Unknown] lisinopril 40 mg tablet 40 mg PO DAILY #30 tabs 05/12/22 [Rx Last Taken Unknown] wheelchair #1 ea 05/13/22 [Rx Last Taken Unknown] compression socks, large #4 ea 05/15/22 [Rx Last Taken Unknown] metoprolol succinate 25 mg tablet,extended release 24 hr 25 mg PO QHS 05/20/22 [History Last Taken Unknown] Allergy/AdvReac Type Severity Reaction Status Date / Time iloperidone [From Fanapt] Allergy Other Verified 05/20/22 15:05 lurasidone [From Latuda] Allergy Other Verified 05/20/22 15:05 paliperidone [From Invega] Allergy increased Verified 05/20/22 15:05 psychiatric symptoms trazodone Allergy Other Verified 05/20/22 15:05 theophylline AdvReac Other Verified 05/20/22 15:05 SLOBID AdvReac Other Uncoded 05/20/22 15:05 Family History Brother Colon cancer Lung cancer Aunt Obesity Sister Obesity Mother Rheumatoid arthritis Father Alzheimer disease Brother Alzheimer disease Surgical History H/O hernia repair H/O: hysterectomy History of 3 sections History of basal cell carcinoma excision History of History of cholecystectomy History of colonoscopy History of endoscopy History of excision of lesion History of hernia repair Social History Smoking Status: Current every day smoker tobacco type: cigarettes how long ago did patient quit smokin alcohol intake: never substance use type: former substance user Date of last use: Cocaine ROS ROS ED Constitutional Constitutional ED: Denies chills or weight loss Eyes Eyes: Denies change in vision or diplopia ENT ENT ED: Denies ear pain, rhinorrhea or sore throat Cardiovascular Cardiovascular: Denies chest pain, orthopnea, palpitations or racing heartbeat Respiratory/Chest Respiratory/Chest: Denies cough, dyspnea or orthopnea Gastrointestinal Gastrointestinal: Denies abdominal pain, diarrhea, nausea or vomiting Genitourinary Genitourinary ED: Denies dysuria, hematuria or urinary frequency Musculoskeletal Musculoskeletal: Denies arthralgias or myalgias Integumentary Denies abscess or rash Neurologic Neurologic: Denies headache(s) or weakness Psychiatric Psychiatric: Reports other Details: Manic ; Denies anxiety, depression, suicidal ideation or suicidal thoughts Endocrine Endocrinology: Denies polydipsia, polyphagia or polyuria Allergic/Immunologic Allergic/Immunologic ED: Denies mouth swelling, tongue swelling or urticaria EXAM Physical Exam Narrative Exam Narrative: Patient talking to herself while sitting in the room. Const Vital Signs: 05/20/22 15:05 05/20/22 16:26 05/20/22 17:25 Temperature 98.4 F 98.3 F Temperature Source Oral Oral Pulse Rate 78 82 Respiratory Rate 16 16 17 Blood Pressure 116/61 114/63 Blood Pressure Mean 79 80 Pulse Ox 93 96 Oxygen Delivery Method Room Air Room Air 05/20/22 18:15 Temperature 97.9 F Temperature Source Temporal Pulse Rate 73 Respiratory Rate 16 Blood Pressure 143/74 H Blood Pressure Mean 97 Pulse Ox 96 Oxygen Delivery Method Room Air Positive well nourished, well developed and obese General Appearance ED: well developed Nutritional Appearance: obese HEENT Reports normocephalic, head/scalp atraumatic and moist mucous membranes Eyes PERRL and EOMs intact bilaterally Neck no lymphadenopathy, supple and no JVD Resp normal respiratory effort and clear to auscultation bilaterally Cardio regular rate, regular rhythm and no murmurs GI normal to inspection, nondistended, normoactive bowel sounds and non-tender Palpation: soft Back/Spine no CVA tenderness and normal ROM Extremity normal to inspection General Extremety ED: Negative for edema General Extremity: Negative for edema Neuro oriented x3 and CN's II-XII intact bilaterally Sensory Exam: other Hyperalert Motor Exam: strength 5/5 throughout Psych Appearance: appropriate Attitude: other Excited Activity / Motor Behavior: restless Speech: pressured Mood & Affect: labile affect; Negative for depressed or tearful Thought Process: loose associations and racing thoughts Thought Content: No suicidality, No homicidality, No phobia(s) and No hallucination(s) Attention / Concentration: concentration grossly intact Insight: limited Judgement: limited Skin no rashes or lesions noted and no wounds MDM MDM MDM Narrative Medical decision making narrative: Patient is medically cleared. White count 6.9 with a hemoglobin of 10.6. Urinalysis shows contamination but no overt infection. Toxicology work-up is negative. My interpretation of the chest x-ray is no acute process. COVID test is negative. TSH and CMP are normal. Case was discussed with case management who also interviewed the patient. Patient's daughter was also reviewed who notes that this is not too far from her baseline. The patient's daughter states that she is comfortable taking her home and will call her psychiatrist tomorrow to see about restarting her medication. She understands that she can bring her back if she is getting worse. We have seen the. The patient has been noted to have grandiose thinking in the past psychiatric interviews. She is not suicidal or homicidal. Lab Data Attestation: I reviewed the patient's lab results. Labs: Laboratory Results - last 24 hr 05/20/22 05/20/22 05/20/22 15:40 15:40 16:00 WBC 6.9 RBC 3.36 L Hgb 10.6 L Hct 33.1 L MCV 98.5 MCH 31.5 MCHC 32.0 RDW Std Deviation 54.5 H RDW Coeff of Tami 15.2 H Plt Count 382 MPV 8.7 Immature Gran % (Auto) 0.900 Neut % (Auto) 67.0 Lymph % (Auto) 22.3 [place] % (Auto) 7.5 Eos % (Auto) 1.9 Baso % (Auto) 0.4 Absolute Neuts (auto) 4.6 Absolute Lymphs (auto) 1.54 Nucleated RBC % 0 Sodium Potassium Chloride Carbon Dioxide Anion Gap BUN Creatinine Estim Creat Clear Calc Est GFR (MDRD) Af Amer Est GFR (MDRD) Non-Af BUN/Creatinine Ratio Glucose Calcium Total Bilirubin AST ALT Alkaline Phosphatase Total Protein Albumin Globulin Albumin/Globulin Ratio TSH Urine Color Yellow Urine Clarity Clear Urine pH 5.0 Ur Specific Mobile 1.015 Urine Protein 15 H Urine Glucose (UA) Normal Urine Ketones 5 H Urine Occult Blood 10 H Urine Nitrite Negative Urine Bilirubin Negative Urine Urobilinogen 1 H Ur Leukocyte Esterase 25 H Urine RBC 0-5 SEEN Urine WBC 0-5 SEEN Ur Squamous Epith Cells 10-25 SEEN Urine Bacteria 2+ Urine Mucus 0 SEEN Urine Opiates Screen NEGATIVE Urine Methadone Screen NEGATIVE Ur Barbiturates Screen NEGATIVE Valproic Acid Ur Phencyclidine Scrn NEGATIVE Ur Amphetamines Screen NEGATIVE MDMA (Ecstasy) Screen NEGATIVE U Benzodiazepines Scrn NEGATIVE Urine Cocaine Screen NEGATIVE U Cannabinoids Screen NEGATIVE Ur Drug Screen Comment Ethyl Alcohol 05/20/22 05/20/22 05/20/22 16:00 16:00 16:00 WBC RBC Hgb Hct MCV MCH MCHC RDW Std Deviation RDW Coeff of Tami Plt Count MPV Immature Gran % (Auto) Neut % (Auto) Lymph % (Auto) [place] % (Auto) Eos % (Auto) Baso % (Auto) Absolute Neuts (auto) Absolute Lymphs (auto) Nucleated RBC % Sodium 136 Potassium 4.0 Chloride 104 Carbon Dioxide 31.0 Anion Gap 1 L BUN 12 Creatinine 1.10 H Estim Creat Clear Calc 38.18 Est GFR (MDRD) Af Amer 63 Est GFR (MDRD) Non-Af 52 L BUN/Creatinine Ratio 10.9 Glucose 111 H Calcium 8.6 Total Bilirubin 0.20 AST 11 L ALT 13 Alkaline Phosphatase 74 Total Protein 5.7 L Albumin 2.7 L Globulin 3.0 Albumin/Globulin Ratio 0.9 TSH 0.76 Urine Color Urine Clarity Urine pH Ur Specific Mobile Urine Protein Urine Glucose (UA) Urine Ketones Urine Occult Blood Urine Nitrite Urine Bilirubin Urine Urobilinogen Ur Leukocyte Esterase Urine RBC Urine WBC Ur Squamous Epith Cells Urine Bacteria Urine Mucus Urine Opiates Screen Urine Methadone Screen Ur Barbiturates Screen Valproic Acid 66 Ur Phencyclidine Scrn Ur Amphetamines Screen MDMA (Ecstasy) Screen U Benzodiazepines Scrn Urine Cocaine Screen U Cannabinoids Screen Ur Drug Screen Comment Ethyl Alcohol < 3.0 Radiography Diagnostic Testing: Clinical Impression(s) from Imaging Studies Chest X-Ray 05/20/22 15:42 IMPRESSION: Peribronchial cuffing bilateral hilar prominence seen demonstrating no change in comparison to the prior study No radiographic evidence of acute cardiopulmonary disease. Electronically Signed: Hernandez Hoffman MD at 16:19 EDT Reading Location ID and State: [facility] / [place] Tel , Service support , EKG Initial EKG: Attestation: I personally reviewed and interpreted this EKG as follows: Comments: Normal sinus rhythm with a ventricular rate of 76 bpm Discharge Plan Triage Chief Complaint: Mental Health ED Provider: Austin Castaneda Dx/Rx/DC Orders Clinical Impression: Linnea, Bipolar I disorder, Borderline personality disorder Instructions: ED Bipolar Disorder Prescriptions: No Action acetaminophen [Tylenol Arthritis Pain] 650 mg tablet extended release 650 mg PO Q12H buprenorphine 100 mg/0.5 mL solution, extended rel syringe 100 mg subcut QMONTH metoprolol succinate 25 mg tablet extended release 24 hr 25 mg PO QHS (DME) Handicap Placard See Rx Instructions .ROUTE .MEDSUPPLY Qty: 1 0RF Rx Instructions: As directed, length of time 5 years lamotrigine 200 mg tablet 200 mg PO QHS Qty: 90 0RF (DME) cane tips [Quad Cane Tips] Misc See Rx Instructions .ROUTE .MEDSUPPLY Qty: 2 0RF Rx Instructions: As directed (DME) cane Device See Rx Instructions .ROUTE .MEDSUPPLY Qty: 1 0RF Rx Instructions: As directed, Quad cane prazosin 1 mg capsule 3 mg PO QHS Qty: 90 1RF (DME) POCKET CHAMBER Spacer See Rx Instructions .ROUTE .MEDSUPPLY Qty: 1 0RF Rx Instructions: As directed metoprolol succinate 50 mg tablet extended release 24 hr 50 mg PO DAILY Qty: 90 3RF rosuvastatin 40 mg tablet 40 mg PO DAILY Qty: 90 1RF ferrous sulfate 324 mg (65 mg iron) tablet,delayed release (DR/EC) 324 mg PO DAILY Qty: 90 1RF divalproex 500 mg tablet extended release 24 hr 500 mg PO BID Qty: 180 1RF lisinopril 40 mg tablet 40 mg PO DAILY Qty: 30 0RF Rx Instructions: Take if blood pressure is over 150 systolic and/or 90 diastolic (DME) wheelchair See Rx Instructions .Route .MEDSUPPLY Qty: 1 0RF Rx Instructions: As directed (DME) compression socks, large Misc See Rx Instructions .Route Qty: 4 3RF Rx Instructions: Wear daily for low leg swelling 20-30mmHg Primary Care Provider: Esperanza Baird Referrals: Esperanza Baird MD [Primary Care Provider] - Activity Restrictions/Additional Instructions: Please call your psychiatrist tomorrow morning Disposition Disposition: Home, Self Care
--- NOTE | 2022-05-20 15:42 | RAD_ITS ---
INDICATION: ams EXAMINATION/TECHNIQUE: X-RAY - XR Chest 1 View COMPARISON: 05/03/2022.. FINDINGS: LINES/DEVICES: None. LUNGS: Peribronchial cuffing bilateral hilar prominence seen demonstrating no change in comparison to the prior study. No consolidation, edema or effusion. No pneumothorax. MEDIASTINUM AND CARDIOVASCULAR STRUCTURES: Cardiac silhouette not enlarged. Central airways and mediastinal contour are unremarkable. BONES AND SOFT TISSUES: Degenerative bone changes.. RAD/Chest 1 View (Portable) IMPRESSION: Peribronchial cuffing bilateral hilar prominence seen demonstrating no change in comparison to the prior study No radiographic evidence of acute cardiopulmonary disease. Electronically Signed: Hernandez Hoffman MD at 16:19 EDT Reading Location ID and State: [facility] / [place] Tel , Service support ,
[2022-05-20 15:52] LABS: Mucous, Urine 0 SEEN /hpf (<or=2+)
[2022-05-20 15:57] LABS: Color, Urine Yellow (Yellow); Glucose, Dipstick Normal (Normal); Ketone-Dipstick 5 mg/dl (Negative); Leukocyte Esterase-Dipstick 25 /ul (Negative); Nitrite-Dipstick Negative (Negative); Occult Blood-Urine 10 /ul (Negative); Protein-Dipstick 15 mg/dl (Negative); Specific Gravity, Urine 1.015 (1.002-1.030); Urine Bilirubin Dipstick Negative (Negative); Urine Clarity Clear (Clear); Urine Urobilinogen 1 mg/dl (Normal)
[2022-05-20 16:12] LABS: Absolute Lymphocyte Count 1.54 X10^3/uL (0.83-4.51); Absolute Neutrophil Count 4.6 X10^3/uL (2.0-7.7); Basophil# 0.03 X10^3/uL; Basophil% 0.4 % (0-1); Eosinophil# 0.13 X10^3/uL; Eosinophils% 1.9 % (0-5); Hematocrit 33.1 % (37-47); Hemoglobin 10.6 g/dL (12.0-15.0); Lymphocyte # 1.54 X10^3/ul (0.83-4.51); Lymphocyte % 22.3 % (19-41); Mean Corpuscular Hgb 31.5 pg (27.0-32.0); Mean Corpuscular Volume 98.5 fL (81-99); Mean Platelet Vol. 8.7 fl (6.2-12.0); Monocyte# 0.52 X10^3/uL; Monocyte% 7.5 % (0-10); NRBC Flagged by Analyzer 0 % (0-5); Neutrophil # 4.64 X10^3/uL (2.7-7.7); Platelet Count 382 K/mm3 (150-450); RBC Distribution Width CV 15.2 % (11.6-14.6); RBC Distribution Width SD 54.5 fl (35.1-43.9); Red Blood Count 3.36 M/mm3 (4.2-5.4); White Blood Count 6.9 K/mm3 (4.4-11.0)
[2022-05-20 16:21] LABS: Bacteria 2+ /hpf (None Seen); Red Blood Cells-Urine 0-5 SEEN /hpf (0-5); Squamous Epithelial Cells - UA 10-25 SEEN /hpf (5-10)
[2022-05-20 16:22] LABS: White Blood Cells 0-5 SEEN /hpf (0-5)
[2022-05-20 16:26] VITALS: RESP 16
[2022-05-20 16:34] LABS: Alcohol, Blood (Medical)-Serum < 3.0 mg/dL
[2022-05-20 16:47] LABS: ALB/GLOB Ratio 0.9 RATIO (0.9-2.4); AST(SGOT) 11 U/L (15-37); Alanine Aminotransfer ALT/SGPT 13 U/L (13-56); Albumin, Serum 2.7 g/dL (3.2-5.0); Alkaline Phosphatase 74 U/L (45-117); Anion Gap 1 (5-15); BUN 12 mg/dL (7-18); BUN/Creat Ratio 10.9 RATIO (10-20); Calcium,Total 8.6 mg/dL (8.5-10.1); Chloride 104 mmol/L (98-107); EST Glomerular Filtration Rate 52 mL/min (>60); Est Glom Filt Rate - Afr Amer 63 mL/min (>60); Estimated Creatinine Clearance 38.18 ml/min; Glucose 111 mg/dL (74-106); Protein, Total 5.7 g/dL (6.4-8.2); Sodium Level 136 mmol/L (136-145); Thyroid Stim Hormone (TSH) 0.76 uIU/mL (0.358-3.74)
[2022-05-20 16:52] LABS: Amphetamine Urine VISTA NEGATIVE (<1000 ng/mL); Barbiturate Urine VISTA NEGATIVE (< 200 ng/mL); Benzodiazepine Urine VISTA NEGATIVE (< 200 ng/mL); Cocaine Urine VISTA NEGATIVE (< 300 ng/mL); Ecstacy Urine VISTA NEGATIVE (< 500 ng/mL); Methadone Urine VISTA NEGATIVE (< 300 ng/mL); PCP Urine VISTA NEGATIVE (< 25 ng/mL); THC Urine VISTA NEGATIVE (< 50 ng/mL); Vista UDS pH Range 5
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
[2022-05-20 17:25] VITALS: BP 114/63; PULSE 82; RESP 17; TEMP 36.8; O2SAT 96
[2022-05-20 17:52] LABS: Valproic Acid (Depakene) Level 66 ug/mL (50-100)
[2022-05-20 18:15] VITALS: BP 143/74; PULSE 73; RESP 16; TEMP 36.6; O2SAT 96
--- NOTE | 2022-05-20 18:16 | ED.RN ---
THIS RN CALLED PT DAUGTHER AT PT REQUEST. DAUGHTER DID NOT ANSWER. PT INFORMED.
--- NOTE | 2022-05-20 18:28 | CM.ED ---
SW called and left 2 voice mail for patients daughter. Patient then texted daughter to call this content writer. Patient's daughter called this content writer. SW spoke to patient's daughter, Lizy Miller. Lizy said that patient was hospitalized at [facility] for an UTI and she was concerned as patient's feet and ankles were swollen. Lizy said that her mom was to schedule an appointment with urology. Lizy said that patient is a little bit manic but it is mild for her.... I have seen it alot worse. Lizy said that patient is sleeping fine. Lizy said that she was fearful that the manic would incense. Lizy said that she is off on and will call her psychiatrist about medication for her mother and Lizy said they are good about calling me back. Lizy said that she is comfortable with patient being discharged. Lizy said that if the linnea continues and escalates she will bring patient back to the ED. CAROLYNE consulted with MD Castaneda. and CAROLYNE concur that patient can be discharged today as patient's daughter is comfortable with discharge. Plan is for patient to be discharged. Lizy will follow up with patient's psychiatrist on . CAROLYNE also advised daughter that if patient's linnea gets worse to come to the ED. SW will follow up with patient phone call on Thursday. Patient's daughter will be in the ED in 25 minutes to pick patient up for discharge.CAROLYNE updated patient and advised that she will call patient tomorrow to see how she is doing. Patient verbalized understanding. Patient said that when she talked to the psychiatrist about getting off Vraylar the psychiatrist said you are on so many psych meds you won't go into linnea. Plan:Discharge home with follow up phone call Natalee JACOB
--- NOTE | 2022-05-21 12:31 | CM.ED ---
Addendum entered by Natalee Mae 05/21/22 18:05: CAROLYNE called patient at 6:03pm on this date. Patient said that she is tired as she was making calls today and her aide helped her with things around the house. Patient said that she is tired. Patient said that she was on the phone for over 2 hours trying to get to [place] to see her psychiatrist. Patient said I guess I will just need to wait until May 29.. but I am going to give her a piece of my mind.. you don't listen to a mental health patient when she wants off medication that she can get off medication. Patient said I will calm down before then... Patient said that she is walking better and am going to my chiropractor tomorrow. Patient said that she is eating and sleeping so I am not in full blown linnea. Patient said that she is worn out from going to [employer] and doing stuff around the house today. SW provided emotional support. Natalee JACOB Original Note: CAROLYNE called patient at 10:41 this morning and got voice mail message. CAROLYNE left message requesting that Jacklyn call this commercial real estate underwriter back. CAROLYNE had advised patient that this commercial real estate underwriter would be calling her in the morning to check on her status. Natalee JACOB
== END 2022-05-20 18:46 | disposition home or self-care (01) ==
PROVIDERS: Emergency Provider Emergency Medicine; PCP Internal Medicine; Visit Provider Emergency Medicine
DX: F31.9 Bipolar disorder, unspecified (principal); J44.9 Chronic obstructive pulmonary disease, unspecified; F60.3 Borderline personality disorder; F17.210 Nicotine dependence, cigarettes, uncomplicated; Z20.822 Contact with and (suspected) exposure to COVID-19; Z79.899 Other long term (current) drug therapy
CPT/HCPCS: 71045; 80053; 80164; 80307; 81001; 82077; 84443; 85025; 87811; 93005; 99283

== ENCOUNTER → 2022-05-28 | Outpatient (CLI) | payer MEDICARE, MEDICAID, SELFPAY ==
--- NOTE | 2022-05-28 15:40 | NEURO ---
NCS and/or EMG Patient Report Ordering Doctor: Urban Saldana DATE OF SERVICE: 05/28/22 Jacklyn Abraham presents with left upper limb numbness since October 2021. Electrodiagnostic Findings: Left median motor nerve demonstrates prolonged distal latency with normal amplitude and reduced conduction velocity. Normal left ulnar motor response. Normal median ulnar F waves. Prolonged median sensory latency at the wrist. Normal ulnar and radial sensory responses. On needle EMG, all muscles tested in the left upper limb showed no evidence of denervation with normal motor unit action potentials. Electrodiagnostic impression: This is an abnormal study in the left upper limb. 1. Electrodiagnostic findings demonstrate left-sided median mononeuropathy. This consistent with a moderate left carpal tunnel syndrome.
== END | disposition home or self-care (01) ==
LOC: PSN 15:07
PROVIDERS: PCP Internal Medicine; Referring Provider Orthopaedic Surgery; Visit Provider Orthopaedic Surgery
DX: R53.81 Other malaise (principal); G56.02 Carpal tunnel syndrome, left upper limb
CPT/HCPCS: 95886; 95910

== ENCOUNTER → 2022-06-02 | Outpatient (CLI) | payer MEDICARE, MEDICAID, SELFPAY ==
[2022-06-02 11:10] LABS: Bacteria 0 SEEN /hpf (None Seen); Mucous, Urine 0 SEEN /hpf (<or=2+); Squamous Epithelial Cells - UA 0 SEEN /hpf (5-10)
[2022-06-02 11:54] LABS: Color, Urine Yellow (Yellow); Glucose, Dipstick Normal (Normal); Ketone-Dipstick Negative (Negative); Leukocyte Esterase-Dipstick Negative /ul (Negative); Nitrite-Dipstick Negative (Negative); Occult Blood-Urine 25 /ul (Negative); Protein-Dipstick Negative (Negative); Specific Gravity, Urine 1.005 (1.002-1.030); Urine Bilirubin Dipstick Negative (Negative); Urine Clarity Clear (Clear); Urine Urobilinogen Normal (Normal); Urine pH 6.5 (5.0 - 8.0)
[2022-06-02 12:15] LABS: Red Blood Cells-Urine 0-5 SEEN /hpf (0-5); White Blood Cells 0-5 SEEN /hpf (0-5)
[2022-06-02 12:17] LABS: Anion Gap 6 (5-15); BUN 7 mg/dL (7-18); BUN/Creat Ratio 8.1 RATIO (10-20); Calcium,Total 9.3 mg/dL (8.5-10.1); Chloride 98 mmol/L (98-107); Creatinine, Serum 0.86 mg/dL (0.55-1.02); EST Glomerular Filtration Rate 69 mL/min (>60); Est Glom Filt Rate - Afr Amer 84 mL/min (>60); Glucose 107 mg/dL (74-106); Potassium 4.6 mmol/L (3.5-5.1); Sodium Level 132 mmol/L (136-145)
== END | disposition home or self-care (01) ==
LOC: BIMLAB 11:09
PROVIDERS: PCP Internal Medicine; Referring Provider Physician Assistant; Visit Provider Physician Assistant
DX: R10.9 Unspecified abdominal pain (principal); N17.9 Acute kidney failure, unspecified; E87.6 Hypokalemia; N39.0 Urinary tract infection, site not specified
CPT/HCPCS: 36415; 80048; 81001; 87086

== ENCOUNTER → 2022-06-10 | Outpatient (CLI) | payer MEDICARE, MEDICAID, SELFPAY ==
[2022-06-10 12:22] LABS: Absolute Lymphocyte Count 1.68 X10^3/uL (0.83-4.51); Absolute Neutrophil Count 5.6 X10^3/uL (2.0-7.7); Basophil# 0.03 X10^3/uL; Basophil% 0.4 % (0-1); Eosinophil# 0.16 X10^3/uL; Hematocrit 34.8 % (37-47); Hemoglobin 11.5 g/dL (12.0-15.0); Lymphocyte # 1.68 X10^3/ul (0.83-4.51); Lymphocyte % 20.7 % (19-41); Mean Corpuscular Hgb 32.6 pg (27.0-32.0); Mean Corpuscular Volume 98.6 fL (81-99); Mean Platelet Vol. 9.9 fl (6.2-12.0); Monocyte# 0.61 X10^3/uL; Monocyte% 7.5 % (0-10); NRBC Flagged by Analyzer 0 % (0-5); Neutrophil # 5.59 X10^3/uL (2.7-7.7); Neutrophil % 68.7 % (47-70); POSITIVE COUNT YES; Platelet Count 364 K/mm3 (150-450); RBC Distribution Width CV 14.3 % (11.6-14.6); RBC Distribution Width SD 51.6 fl (35.1-43.9); Red Blood Count 3.53 M/mm3 (4.2-5.4); White Blood Count 8.1 K/mm3 (4.4-11.0)
[2022-06-10 13:05] LABS: Differential Indicated SCAN CRITERIA MET
[2022-06-10 13:41] LABS: Anion Gap 9 (5-15); BUN 13 mg/dL (7-18); BUN/Creat Ratio 15.7 RATIO (10-20); Calcium,Total 9.1 mg/dL (8.5-10.1); Chloride 101 mmol/L (98-107); Creatinine, Serum 0.83 mg/dL (0.55-1.02); EST Glomerular Filtration Rate 72 mL/min (>60); Est Glom Filt Rate - Afr Amer 87 mL/min (>60); Glucose 99 mg/dL (74-106); Potassium 4.6 mmol/L (3.5-5.1); Sodium Level 134 mmol/L (136-145)
== END | disposition home or self-care (01) ==
LOC: BIMLAB 08:52
PROVIDERS: PCP Internal Medicine; Referring Provider Internal Medicine; Visit Provider Internal Medicine
DX: E87.6 Hypokalemia (principal); I10 Essential (primary) hypertension
CPT/HCPCS: 36415; 80048; 85025

== ENCOUNTER → 2022-06-12 | Outpatient (CLI) | payer MEDICARE, MEDICAID, SELFPAY ==
--- NOTE | 2022-06-12 10:56 | US_ITS ---
STUDY: RENAL ULTRASOUND - COMPLETE REASON FOR EXAM: Female, 71 years old. UTI, INCONTINENCE TECHNIQUE: Ultrasound evaluation of the kidneys was performed with real-time and static barros-scale imaging. COMPARISON: None. FINDINGS: RIGHT KIDNEY: Normal location of the right kidney, which is normal in size. The right kidney measures 13.3 cm x 4.7 cm x 4 cm. There is a normal cortex of the right kidney. The renal cortex measures 1.4 cm. There is no right renal mass or cyst. There are no right renal calculi. There is no right hydronephrosis. DISTAL RIGHT URETER: There is non-visualization of the distal right ureter. There is no demonstrated right ureterovesical junction calculus. There is no demonstrated right ureteral jet. LEFT KIDNEY: Normal location of the left kidney, which is normal in size. The left kidney measures 12.1 cm x 5.5 cm x 5.6 cm. There is a normal cortex of the left kidney. The renal cortex measures 1.5 cm. There is no left renal mass or cyst. There are no left renal calculi. There is no left hydronephrosis. DISTAL LEFT URETER: There is non-visualization of the distal left ureter. There is no demonstrated left ureterovesical junction calculus. There is a visualized left ureteral jet. BLADDER: The distended urinary bladder has a volume of 182 ml. There is a normal wall thickness of the distended urinary bladder. There is no demonstrated mass within the urinary bladder. There are no demonstrated bladder calculi. US/Kidney and Bladder IMPRESSION: Normal ultrasound of the kidneys and urinary bladder. Electronically Signed: Wil Ortega MD at 14:03 EDT ,
== END | disposition home or self-care (01) ==
LOC: US 10:55
PROVIDERS: PCP Internal Medicine; Referring Provider Urology; Visit Provider Urology
DX: N39.0 Urinary tract infection, site not specified (principal)
CPT/HCPCS: 76770

== ENCOUNTER → 2022-07-09 | Outpatient (CLI) | payer MEDICARE, MEDICAID, SELFPAY | END | disposition home or self-care (01) | LOC: LABSPEC 15:00 | PROVIDERS: PCP Internal Medicine; Visit Provider Urology | DX: N39.0 Urinary tract infection, site not specified (principal) | CPT/HCPCS: 87086; 87088 ==

== ENCOUNTER 2022-07-17 08:38 | Day surgery (SDC) | payer MEDICARE, MEDICAID, SELFPAY ==
[2022-07-17] VITALS (8 sets, daily range): BP systolic 105–136; BP diastolic 64–72; PULSE 67–68; RESP 14–16; TEMP 36.2–37.2; O2SAT 92–97; BMI 34.4
[2022-07-17] MEDS: Lactated Ringers 1,000 ML 15 ML IV (09:38)
[2022-07-17] MEDS: Cefazolin 2 GM in 0.9% Normal Saline 100 ML IV (12:37)
--- NOTE | 2022-07-17 12:40 | DCINST_ITS ---
Discharge Instructions Diet Discharge Diet: No restrictions Activity Discharge Activity: Return to Normal Activity Dressing / Incision Call your doctor if you observe: Fever of 101 or Higher, Inability to urinate and Inability to have a bowel movement Follow Up Care Please Follow Up With: Vane Rosen MD When: call office for appt to be seen in 2 weeks. Test Results: Test results from this visit will be discussed in further detail at your follow- up appointment, if applicable. Discharge Plan Admission Attending Provider: Vane Rosen Primary Care Provider: Esperanza Baird Discharge Orders/Prescriptions Prescriptions: New cephalexin [cephalexin] 500 mg capsule 500 mg PO Q12 3 Days Qty: 6 0RF Continued acetaminophen [Tylenol Arthritis Pain] 650 mg tablet extended release 650 mg PO Q12H buprenorphine 100 mg/0.5 mL solution, extended rel syringe 100 mg subcut QMONTH omeprazole 40 mg capsule,delayed release(DR/EC) 40 mg PO DAILY Vraylar 1.5 mg capsule 1.5 mg PO DAILY multivitamin Tablet 1 tab PO DAILY ascorbic acid (vitamin C) 500 mg capsule 500 mg PO DAILY metoprolol succinate 25 mg tablet extended release 24 hr 25 mg PO QHS (DME) Handicap Placard See Rx Instructions .ROUTE .MEDSUPPLY Qty: 1 0RF Rx Instructions: As directed, length of time 5 years lamotrigine 200 mg tablet 200 mg PO QHS Qty: 90 0RF (DME) POCKET CHAMBER Spacer See Rx Instructions .ROUTE .MEDSUPPLY Qty: 1 0RF Rx Instructions: As directed metoprolol succinate 50 mg tablet extended release 24 hr 50 mg PO DAILY Qty: 90 3RF rosuvastatin 40 mg tablet 40 mg PO DAILY Qty: 90 1RF ferrous sulfate 324 mg (65 mg iron) tablet,delayed release (DR/EC) 324 mg PO DAILY Qty: 90 1RF divalproex 500 mg tablet extended release 24 hr 500 mg PO BID Qty: 180 1RF (DME) wheelchair See Rx Instructions .Route .MEDSUPPLY Qty: 1 0RF Rx Instructions: As directed (DME) compression socks, large Misc See Rx Instructions .Route Qty: 4 3RF Rx Instructions: Wear daily for low leg swelling 20-30mmHg lisinopril 40 mg tablet 40 mg PO QAM Qty: 30 1RF hydrochlorothiazide 25 mg tablet 25 mg PO QAM Qty: 30 0RF Rx Instructions: Hold hydrochlorothiazide for systolic less than 140 Referrals / Follow Up: Esperanza Baird MD [Primary Care Provider] - Disposition Disposition (needs filled in before D/C Order can be placed): Home, Self Care
--- NOTE | 2022-07-17 12:42 | OP.PCM_ITS ---
Report of Operation Date of Procedure: 07/17/22 Pre-Operative Diagnosis: urethral stricture, urinary tract infection Post-Operative Diagnosis: same Surgery/Procedure Performed:: urethral dilation, cystoscopy Surgeon: Vane Rosen Type of Anesthesia: MAC Description of Procedure: The patient is a 72-year-old female seen in the office for issues with recurrent urinary tract infections. On examination she was found to have a significant urethral meatus stricture. Informed consent was obtained for dilation and cystoscopy with possible bladder biopsy under anesthesia. The patient was taken to the operating room and placed on the operating room table. Anesthesia monitored the head, neck, airway, IV access and vital signs throughout the case. Once anesthesia was appropriate ministered, the patient was placed into dorsolithotomy position was prepped and draped in usual sterile fashion. The urethra was then dilated from 12 Latvian to 28 Latvian with significant cracking of the mucosa. The cystoscope was then inserted through the urethra into the urinary bladder which was visualized in its entirety and found to be without evidence of mass, erythema, ulceration or foreign body. The patient's bladder was then emptied and the case was terminated. She was awakened and taken to the recovery room in good condition. There were no complications during this procedure. Complications None Admit VTE Documentation VTE Present on Admission: Yes VTE Mechan Device Prophylaxis: SCD's VTE Pharm Prophylaxis ordered?: No Reason prophylaxis not ordered:: Treatment Not Indicated
== END 2022-07-17 14:10 | disposition home or self-care (01) ==
LOC: SDC 08:39 → AC 08:40
PROVIDERS: PCP Internal Medicine; Referring Provider Urology; Visit Provider Urology
PROC: 0T7D8ZZ Dilation of Urethra, Via Natural or Artificial Opening Endoscopic (ICD-10-PCS; CPT 52281; principal; 2022-07-17 10:15)
DX: N35.92 Unspecified urethral stricture, female (principal); M06.9 Rheumatoid arthritis, unspecified; J44.9 Chronic obstructive pulmonary disease, unspecified; F44.81 Dissociative identity disorder; R56.9 Unspecified convulsions; D47.3 Essential (hemorrhagic) thrombocythemia; N39.0 Urinary tract infection, site not specified; Z79.899 Other long term (current) drug therapy; R53.81 Other malaise; K21.9 Gastro-esophageal reflux disease without esophagitis; E78.5 Hyperlipidemia, unspecified; R32 Unspecified urinary incontinence; I87.2 Venous insufficiency (chronic) (peripheral); E55.9 Vitamin D deficiency, unspecified; N32.81 Overactive bladder; N39.41 Urge incontinence; M85.80 Other specified disorders of bone density and structure, unspecified site; G47.33 Obstructive sleep apnea (adult) (pediatric); Z85.828 Personal history of other malignant neoplasm of skin; Z87.891 Personal history of nicotine dependence
CPT/HCPCS: 52281; J7120

== ENCOUNTER 2022-08-01 15:52 | Emergency (ER) | payer MEDICARE, MEDICAID, SELFPAY ==
[2022-08-01 15:53] VITALS: BP 150/76; PULSE 68; RESP 14; TEMP 36.2; O2SAT 94; BMI 32.9
--- NOTE | 2022-08-01 16:14 | CT_ITS ---
STUDY: CT CHEST, ABDOMEN T PELVIS WITHOUT CONTRAST REASON FOR EXAM: Female, 72 years old. Injury to the right lower ribs. RADIATION DOSAGE (If Supplied By Facility): CTDIvol = ( 17.54 ) mGy, DLP = ( 1514.45 ) mGycm TECHNIQUE: Transaxial imaging was performed without the administration of intravenous contrast material. Multiplanar coronal and sagittal images were reformatted. Individualized dose optimization techniques were used for this CT. COMPARISON: CTA of the chest, 12/03/2020. CT of the abdomen and pelvis, 03/13/2018. FINDINGS: CHEST Small calcified granuloma in the right lower lobe The lungs are other normal. There is no demonstrated pleural abnormality. Normal heart and pericardium. Moderate to marked coronary artery calcifications. There are calcified and noncalcified mediastinal and right hilar lymph nodes. Normal hilar regions. Normal unenhanced pulmonary arteries. Internal atherosclerotic changes of the thoracic aorta without aneurysm There are multi-level degenerative changes of the thoracic spine. There are degenerative changes of bilateral shoulders. ABDOMEN The liver is enlarged but uniform in density. There is non-visualization of the gallbladder, which may be secondary to either contraction or a prior cholecystectomy. There are multiple benign calcified granulomata of the spleen. Normal pancreas. Normal bilateral adrenal glands. Normal right kidney. Normal left kidney. Normal ureters. Normal visualized stomach. Normal small intestine. Air and feces in the colon. There is contrast in the sigmoid colon. There are multiple diverticuli without evidence of mass, obstruction or inflammatory process. The appendix is visualized and appears normal. There is diffuse atherosclerotic calcification of the abdominal aorta with elongation and tortuosity, but without a demonstrated aneurysm. Normal inferior vena cava. Normal retroperitoneum. PELVIS Normal urinary bladder. Unremarkable vaginal cuff. There are phleboliths in the pelvis without lymphadenopathy. No free air or free fluid is seen within the peritoneal cavity. Normal visualized pelvic arteries. Normal abdominal wall. Degenerative changes of the lumbar spine and hips. CT/CT Chest, Abd, Pelvis WO Cont IMPRESSION: 1. No abnormality of the ribs or other osseous structures. 2. Old granulomatous disease without acute cardiopulmonary process. 3. Diverticulosis without inflammatory change. 4. Status post hysterectomy and cholecystectomy. 5. Atherosclerotic changes of coronary arteries and aorta. Electronically Signed: Franco Marinelli DO at 16:59 EDT Reading Location ID and State: [address] [place] [address] Tel [phone], Service support ,
--- NOTE | 2022-08-01 16:16 | EDS_ITS ---
HPI History of Present Illness Chief Complaint: Flank Pain Informant: patient Narrative Narrative: Mechanical fall right lower rib injury. Brought in by EMS. 7 the day. She tripped over her feet hitting the cushion couch. Pain with deep breaths. No head injuries. No anticoagulation medicines. She cannot do opiates due to dependence in the past. She had urethral dilatation a week ago currently uses Tylenol or ibuprofen. She had no ibuprofen left. History of kidney injuries in the past. Denies nausea or vomiting. Denies headache. Denies extremity injuries or pain. No paresthesias. PFSH [facility] Medical History Abdominal pain Actinic keratoses Arthritis Basal cell carcinoma of right forehead Basal cell carcinoma of right medial cheek Basal cell carcinoma of upper lip Benign neoplasm of skin of cheek Bladder disease Cancer COPD (chronic obstructive pulmonary disease) Cutaneous candidiasis DDD (degenerative disc disease) Debility Dermatitis Dietary restriction Dissociative identity disorder Dizziness Flu vaccine need Frequent falls Gastric reflux Hemangioma of face Hepatitis High cholesterol History of edema History of stress test History of UTI Hypertension Injury of back Injury of head and neck Intertrigo Intradermal nevus Kidney failure Left ankle pain Left wrist fracture Loose, teeth Low iron Manic episode Multiple personalities Neoplasm of skin of eyelid Neoplasm of skin of nose Neurofibroma of neck Panic attacks Seizures Shortness of breath on exertion Urinary incontinence Venous insufficiency of both lower extremities Walker as ambulation aid Wears glasses Home Medications acetaminophen 650 mg tablet,extended release (Tylenol Arthritis Pain) 650 mg PO Q12H 01/23/21 [History Last Taken Unknown] Handicap Placard #1 ea 02/07/21 [Rx Last Taken Unknown] lamotrigine 200 mg tablet 200 mg PO QHS #90 tabs 02/22/21 [Rx Last Taken Unknown] inhalational spacing device (POCKET CHAMBER spacer) #1 ea 06/26/21 [Rx Last Taken Unknown] buprenorphine 100 mg/0.5 mL solution,exten.rel.subcutaneous syringe 100 mg subcut QMONTH WITHDRAWAL SYMPTOM CONTROL 08/07/21 [History Last Taken Unknown] metoprolol succinate 50 mg tablet,extended release 24 hr 50 mg PO DAILY #90 tabs 12/02/21 [Rx Last Taken Unknown] rosuvastatin 40 mg tablet 40 mg PO DAILY #90 tabs 02/27/22 [Rx Last Taken Unknown] ferrous sulfate 324 mg (65 mg iron) tablet,delayed release 324 mg PO DAILY #90 tabs 03/19/22 [Rx Last Taken Unknown] divalproex 500 mg tablet,extended release 24 hr 500 mg PO BID #180 tabs 04/30/22 [Rx Last Taken 07/17/22] wheelchair #1 ea 05/13/22 [Rx Last Taken Unknown] compression socks, large #4 ea 05/15/22 [Rx Last Taken Unknown] metoprolol succinate 25 mg tablet,extended release 24 hr 25 mg PO QHS 05/20/22 [History Last Taken Unknown] cariprazine 1.5 mg capsule (Vraylar) 1.5 mg PO DAILY BIPOLAR 06/02/22 [History Last Taken Unknown] omeprazole 40 mg capsule,delayed release 40 mg PO DAILY 06/02/22 [History Last Taken 07/17/22] ascorbic acid (vitamin C) 500 mg capsule 500 mg PO DAILY 07/08/22 [History Last Taken Unknown] multivitamin 1 tab PO DAILY 07/08/22 [History Last Taken Unknown] hydrochlorothiazide 25 mg tablet 25 mg PO QAM #30 tabs 07/14/22 [Rx Last Taken Unknown] lisinopril 40 mg tablet 40 mg PO QAM blood pressure #30 tabs 07/14/22 [Rx Last Taken Unknown] lidocaine 5 % topical patch (Lidoderm) 1 patch topical DAILY pain #30 ea 08/01/22 [Rx Last Taken Unknown] Allergy/AdvReac Type Severity Reaction Status Date / Time iloperidone [From Fanapt] Allergy Other Verified 07/17/22 09:28 lurasidone [From Latuda] Allergy Other Verified 07/17/22 09:28 paliperidone [From Invega] Allergy increased Verified 07/17/22 09:28 psychiatric symptoms trazodone Allergy Other Verified 07/17/22 09:28 theophylline AdvReac Other Verified 07/17/22 09:28 SLOBID AdvReac Other Uncoded 07/17/22 09:28 Family History Brother Colon cancer Lung cancer Aunt Obesity Sister Obesity Mother Rheumatoid arthritis Father Alzheimer disease Brother Alzheimer disease Surgical History H/O hernia repair H/O: hysterectomy History of 3 sections History of basal cell carcinoma excision History of History of cholecystectomy History of colonoscopy History of endoscopy History of excision of lesion History of hernia repair Social History Smoking Status: Current every day smoker tobacco type: cigarettes how long ago did patient quit smokin alcohol intake: never substance use type: former substance user Date of last use: Cocaine ROS ROS ED Constitutional Constitutional ED: Denies chills, fever(s) or sweats Eyes Eyes: Denies change in vision ENT ENT ED: Denies dysphagia or sore throat Cardiovascular Cardiovascular: Denies chest pain, leg edema, palpitations or racing heartbeat Respiratory/Chest Respiratory/Chest: Reports other Details: Right-sided rib injury ; Denies cough, dyspnea or dyspnea on exertion Gastrointestinal Gastrointestinal: Denies abdominal pain, diarrhea, nausea or vomiting Genitourinary Genitourinary ED: Denies dysuria, hematuria or urinary frequency Musculoskeletal Musculoskeletal: Denies back pain, extremity pain or neck pain Integumentary Denies rash or wounds Neurologic Neurologic: Denies headache(s), paresthesias or weakness EXAM Physical Exam Const Vital Signs: 08/01/22 15:53 08/01/22 16:04 Temperature 97.2 F L Temperature Source Temporal Pulse Rate 68 Respiratory Rate 14 Respiratory Effort Normal Non-Labored Respiratory Pattern Normal Blood Pressure 150/76 H Blood Pressure Mean 100 Pulse Ox 94 Oxygen Delivery Method Room Air Positive well nourished and well developed Constitutional Narrative: GCS 15. General Appearance ED: well developed and NAD HEENT Reports moist mucous membranes normocephalic and atraumatic Eyes PERRL, EOMs intact bilaterally and conjunctivae normal General Eye ED: Yes normal appearance of both eyes Neck no lymphadenopathy and supple General: Negative for tenderness Chest Wall Chest Narrative: Tender palpation right lower mid ribs and posterior ribs. No crepitus. No ecchymosis. Chest: tenderness Resp normal respiratory effort and normal air movement Effort and Inspection: symmetric chest movement; Negative for respiratory distress Cardio regular rate, regular rhythm and no murmurs Peripheral Pulses: pulses 2+ throughout GI normal to inspection, nondistended, normoactive bowel sounds and non-tender Palpation: Negative for guarding or rebound tenderness present Back/Spine no CVA tenderness and no thoracic nor lumbar tenderness Extremity normal to inspection General Extremety ED: Negative for edema or tenderness General Extremity: Negative for edema Neuro oriented x3 and no sensory deficits noted Sensorium / Orientation: awake and alert Skin no rashes or lesions noted and no wounds MDM MDM MDM Narrative Medical decision making narrative: Patient declined any strong pain medicines. History of opiate dependence. Lidoderm patch was placed trauma scan chest abdomen pelvis no acute process. Additional Tylenol. She is able ambulate with a walker. Discussed avoiding NSAIDs with her YANE history. She will continue Tylenol Lidoderm patches sent to her pharmacy. Discharged with outpatient follow-up. Radiography Diagnostic Testing: Clinical Impression(s) from Imaging Studies Chest/Abdomen/Pelvis CT 08/01/22 16:14 IMPRESSION: 1. No abnormality of the ribs or other osseous structures. 2. Old granulomatous disease without acute cardiopulmonary process. 3. Diverticulosis without inflammatory change. 4. Status post hysterectomy and cholecystectomy. 5. Atherosclerotic changes of coronary arteries and aorta. Electronically Signed: Franco Marinelli DO at 16:59 EDT Reading Location ID and State: [address] [place] [address] Tel [phone], Service support , Discharge Plan Triage Chief Complaint: Flank Pain ED Provider: Raymond Gooden Dx/Rx/DC Orders Clinical Impression: Chest wall contusion, Fall, Contusion of flank Instructions: ED Soft Tissue Contusion, ED Chest Wall Contusion Prescriptions: New lidocaine [Lidoderm] 5 % adhesive patch,medicated 1 patch topical DAILY Qty: 30 0RF Rx Instructions: leave on most painful area for up to 12 hrs No Action acetaminophen [Tylenol Arthritis Pain] 650 mg tablet extended release 650 mg PO Q12H buprenorphine 100 mg/0.5 mL solution, extended rel syringe 100 mg subcut QMONTH omeprazole 40 mg capsule,delayed release(DR/EC) 40 mg PO DAILY Vraylar 1.5 mg capsule 1.5 mg PO DAILY multivitamin Tablet 1 tab PO DAILY ascorbic acid (vitamin C) 500 mg capsule 500 mg PO DAILY metoprolol succinate 25 mg tablet extended release 24 hr 25 mg PO QHS (DME) Handicap Placard See Rx Instructions .ROUTE .MEDSUPPLY Qty: 1 0RF Rx Instructions: As directed, length of time 5 years lamotrigine 200 mg tablet 200 mg PO QHS Qty: 90 0RF (DME) POCKET CHAMBER Spacer See Rx Instructions .ROUTE .MEDSUPPLY Qty: 1 0RF Rx Instructions: As directed metoprolol succinate 50 mg tablet extended release 24 hr 50 mg PO DAILY Qty: 90 3RF rosuvastatin 40 mg tablet 40 mg PO DAILY Qty: 90 1RF ferrous sulfate 324 mg (65 mg iron) tablet,delayed release (DR/EC) 324 mg PO DAILY Qty: 90 1RF divalproex 500 mg tablet extended release 24 hr 500 mg PO BID Qty: 180 1RF (DME) wheelchair See Rx Instructions .Route .MEDSUPPLY Qty: 1 0RF Rx Instructions: As directed (DME) compression socks, large Misc See Rx Instructions .Route Qty: 4 3RF Rx Instructions: Wear daily for low leg swelling 20-30mmHg lisinopril 40 mg tablet 40 mg PO QAM Qty: 30 1RF hydrochlorothiazide 25 mg tablet 25 mg PO QAM Qty: 30 0RF Rx Instructions: Hold hydrochlorothiazide for systolic less than 140 Primary Care Provider: Esperanza Baird Referrals: Esperanza Baird MD [Primary Care Provider] - 1 Week if not improving Activity Restrictions/Additional Instructions: CT chest abdomen pelvis negative for acute process. Use Lidoderm patches daily. Tylenol every 6 hours as needed. Follow-up with your doctor. Disposition Disposition: Home, Self Care Discharge Date/Time: 08/01/22 18:19
[2022-08-01] MEDS: Lidocaine 5% Patch 1 PATCH TOPICAL (16:49)
[2022-08-01] MEDS: Acetaminophen 500 MG Tablet 1000 MG PO (17:52)
== END 2022-08-01 18:19 | disposition home or self-care (01) ==
PROVIDERS: Emergency Provider Emergency Medicine; PCP Internal Medicine; Visit Provider Emergency Medicine
DX: S20.20XA Contusion of thorax, unspecified, initial encounter (principal); J44.9 Chronic obstructive pulmonary disease, unspecified; S30.1XXA Contusion of abdominal wall, initial encounter; F17.210 Nicotine dependence, cigarettes, uncomplicated; I10 Essential (primary) hypertension; E78.00 Pure hypercholesterolemia, unspecified; W01.190A Fall on same level from slipping, tripping and stumbling with subsequent striking against furniture, initial encounter
CPT/HCPCS: 71250; 74176; 99283

== ENCOUNTER → 2022-09-17 | Outpatient (CLI) | payer MEDICARE, MEDICAID, SELFPAY ==
[2022-09-17 12:40] LABS: Anion Gap 8 (5-15); BUN 26 mg/dL (7-18); Calcium,Total 9.6 mg/dL (8.5-10.1); Chloride 88 mmol/L (98-107); EST Glomerular Filtration Rate 58 mL/min (>60); Est Glom Filt Rate - Afr Amer 71 mL/min (>60); Glucose 114 mg/dL (74-106); Potassium 4.5 mmol/L (3.5-5.1); Sodium Level 125 mmol/L (136-145)
[2022-09-23 20:52] LABS: Lamotrigine (Lamictal) Level 8.4 ug/mL (2.0-20.0)
== END | disposition home or self-care (01) ==
LOC: BIMLAB 09:15
PROVIDERS: PCP Internal Medicine; Referring Provider Internal Medicine; Visit Provider Internal Medicine
DX: F31.9 Bipolar disorder, unspecified (principal); Z79.899 Other long term (current) drug therapy
CPT/HCPCS: 36415; 80048; 82542

== ENCOUNTER → 2022-09-30 | Outpatient (CLI) | payer MEDICARE, MEDICAID, SELFPAY ==
[2022-09-30 09:16] LABS: Bacteria 0 SEEN /hpf (None Seen); Mucous, Urine 0 SEEN /hpf (<or=2+); Red Blood Cells-Urine 0 SEEN /hpf (0-5); Squamous Epithelial Cells - UA 0 SEEN /hpf (5-10); White Blood Cells 0 SEEN /hpf (0-5)
[2022-09-30 12:22] LABS: Color, Urine Yellow (Yellow); Glucose, Dipstick Normal (Normal); Ketone-Dipstick Negative (Negative); Leukocyte Esterase-Dipstick Negative /ul (Negative); Nitrite-Dipstick Negative (Negative); Occult Blood-Urine Negative /ul (Negative); Protein-Dipstick Negative (Negative); Specific Gravity, Urine 1.005 (1.002-1.030); Urine Bilirubin Dipstick Negative (Negative); Urine Clarity Clear (Clear); Urine Urobilinogen Normal (Normal)
[2022-09-30 14:42] LABS: Anion Gap 7 (5-15); BUN 15 mg/dL (7-18); BUN/Creat Ratio 18.1 RATIO (10-20); Calcium,Total 9.8 mg/dL (8.5-10.1); Chloride 97 mmol/L (98-107); Creatinine, Serum 0.83 mg/dL (0.55-1.02); EST Glomerular Filtration Rate 72 mL/min (>60); Est Glom Filt Rate - Afr Amer 87 mL/min (>60); Glucose 99 mg/dL (74-106); Potassium 5.7 mmol/L (3.5-5.1); Sodium Level 133 mmol/L (136-145)
== END | disposition home or self-care (01) ==
LOC: BIMLAB 09:14
PROVIDERS: PCP Internal Medicine; Referring Provider Physician Assistant; Visit Provider Physician Assistant
DX: I10 Essential (primary) hypertension (principal); R31.9 Hematuria, unspecified
CPT/HCPCS: 36415; 80048; 81001; 87086

== ENCOUNTER → 2022-11-17 | Outpatient (CLI) | payer MEDICARE, MEDICAID, SELFPAY ==
[2022-11-17 12:06] LABS: Absolute Lymphocyte Count 1.78 X10^3/uL (0.83-4.51); Absolute Neutrophil Count 6.1 X10^3/uL (2.0-7.7); Basophil# 0.03 X10^3/uL; Basophil% 0.3 % (0-1); Eosinophil# 0.14 X10^3/uL; Eosinophils% 1.6 % (0-5); Hematocrit 39.6 % (37-47); Hemoglobin 12.5 g/dL (12.0-15.0); Lymphocyte # 1.78 X10^3/ul (0.83-4.51); Lymphocyte % 20.3 % (19-41); Mean Corp Hgb Conc 31.6 g/dL (32-36); Mean Corpuscular Hgb 30.2 pg (27.0-32.0); Mean Corpuscular Volume 95.7 fL (81-99); Mean Platelet Vol. 9.1 fl (6.2-12.0); Monocyte# 0.67 X10^3/uL; Monocyte% 7.6 % (0-10); NRBC Flagged by Analyzer 0 % (0-5); Neutrophil # 6.09 X10^3/uL (2.7-7.7); Neutrophil % 69.5 % (47-70); Platelet Count 479 K/mm3 (150-450); RBC Distribution Width CV 15.2 % (11.6-14.6); RBC Distribution Width SD 53.1 fl (35.1-43.9); Red Blood Count 4.14 M/mm3 (4.2-5.4); White Blood Count 8.8 K/mm3 (4.4-11.0)
[2022-11-17 12:32] LABS: Anion Gap 5 (5-15); BUN 12 mg/dL (7-18); BUN/Creat Ratio 14.5 RATIO (10-20); Chloride 105 mmol/L (98-107); Creatinine, Serum 0.83 mg/dL (0.55-1.02); EST Glomerular Filtration Rate 72 mL/min (>60); Est Glom Filt Rate - Afr Amer 87 mL/min (>60); Ferritin 52 ng/mL (8-252); Glucose 95 mg/dL (74-106); Iron 39 ug/dL (50-170); Iron Binding Capacity,Total 357 ug/dL (250-450); Potassium 4.1 mmol/L (3.5-5.1); Sodium Level 139 mmol/L (136-145)
== END | disposition home or self-care (01) ==
LOC: BIMLAB 09:22
PROVIDERS: PCP Internal Medicine; Visit Provider Internal Medicine
DX: I10 Essential (primary) hypertension (principal); D64.9 Anemia, unspecified
CPT/HCPCS: 36415; 80048; 82728; 83540; 83550; 85025

== ENCOUNTER 2022-12-05 14:42 | Emergency (ER) | payer MEDICARE, MEDICAID, SELFPAY ==
[2022-12-05 14:47] VITALS: BP 178/93; PULSE 89; RESP 14; TEMP 36.7; O2SAT 97; BMI 35.5
[2022-12-05 20:07] VITALS: O2SAT 99
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
[2022-12-05] MEDS: Rabies Vaccine,Human Diploid 2.5 UNITS Vial IM (21:06)
[2022-12-05] MEDS: Rabies Immune Globulin/PF 300 UNIT/ML, 5 ML VIAL 1500 UNIT IM (21:07)
[2022-12-05] MEDS: Rabies Immune Globulin/PF 300 UNIT/ML, 1 ML VIAL 260 UNIT IM (21:08)
== END 2022-12-05 21:09 | disposition home or self-care (01) ==
PROVIDERS: Emergency Provider Emergency Medicine; PCP Internal Medicine; Visit Provider Emergency Medicine
DX: Z20.3 Contact with and (suspected) exposure to rabies (principal); J44.9 Chronic obstructive pulmonary disease, unspecified; F17.210 Nicotine dependence, cigarettes, uncomplicated; I10 Essential (primary) hypertension; E78.00 Pure hypercholesterolemia, unspecified; Z23 Encounter for immunization
CPT/HCPCS: 90375; 90675; 96372; 99283

== ENCOUNTER 2022-12-08 09:39 | Outpatient (CLI) | payer MEDICARE, MEDICAID, SELFPAY ==
[2022-12-08 09:39] VITALS: BP 186/93; PULSE 71; TEMP 36.6; O2SAT 94
[2022-12-08] MEDS: Rabies Vaccine,Human Diploid 2.5 UNITS Vial IM (10:27)
== END 2022-12-08 10:40 | disposition home or self-care (01) ==
PROVIDERS: PCP Internal Medicine; Visit Provider Emergency Medicine
DX: Z23 Encounter for immunization (principal)
CPT/HCPCS: 90675; 96372

== ENCOUNTER 2022-12-12 07:10 | Outpatient (CLI) | payer MEDICARE, MEDICAID, SELFPAY ==
[2022-12-12 07:11] VITALS: BP 188/110; PULSE 91; BMI 34.4
[2022-12-12] MEDS: Rabies Vaccine,Human Diploid 2.5 UNITS Vial IM (07:26)
== END 2022-12-12 07:56 | disposition home or self-care (01) ==
LOC: ED 07:58
PROVIDERS: PCP Internal Medicine
DX: Z23 Encounter for immunization (principal)
CPT/HCPCS: 90675; 96372

== ENCOUNTER 2022-12-20 07:05 | Outpatient (CLI) | payer MEDICARE, MEDICAID, SELFPAY ==
[2022-12-20 07:06] VITALS: BP 180/85; PULSE 81; RESP 16; TEMP 36.6; O2SAT 95; BMI 34.4
[2022-12-20] MEDS: Rabies Vaccine,Human Diploid 2.5 UNITS Vial IM (07:27)
== END 2022-12-20 07:31 | disposition home or self-care (01) ==
PROVIDERS: PCP Internal Medicine
DX: Z23 Encounter for immunization (principal)
CPT/HCPCS: 90675; 96372

== ENCOUNTER → 2022-12-23 | Outpatient (CLI) | payer MEDICARE, MEDICAID, SELFPAY ==
--- NOTE | 2022-12-23 09:01 | TELEMED_ITS ---
[facility] has confirmed receipt of a request for visit. This document confirms receipt of the order initiating the consult. To find the results of the consultation, please view the patient's reports for the scanned Telemed Consult.
== END | disposition home or self-care (01) ==
LOC: PSN 07:47
PROVIDERS: PCP Internal Medicine; Visit Provider Psychiatry & Neurology Neurology
DX: G40.909 Epilepsy, unspecified, not intractable, without status epilepticus (principal)
CPT/HCPCS: 95819

== ENCOUNTER → 2022-12-24 | Outpatient (CLI) | payer MEDICARE, MEDICAID, SELFPAY ==
[2022-12-24 12:52] LABS: Absolute Lymphocyte Count 1.67 X10^3/uL (0.83-4.51); Absolute Neutrophil Count 5.2 X10^3/uL (2.0-7.7); Basophil# 0.04 X10^3/uL; Basophil% 0.5 % (0-1); Eosinophil# 0.11 X10^3/uL; Eosinophils% 1.4 % (0-5); Hematocrit 43.3 % (37-47); Hemoglobin 13.6 g/dL (12.0-15.0); Lymphocyte # 1.67 X10^3/ul (0.83-4.51); Lymphocyte % 21.7 % (19-41); Mean Corp Hgb Conc 31.4 g/dL (32-36); Mean Corpuscular Hgb 30.3 pg (27.0-32.0); Mean Corpuscular Volume 96.4 fL (81-99); Mean Platelet Vol. 9.1 fl (6.2-12.0); Monocyte# 0.58 X10^3/uL; Monocyte% 7.5 % (0-10); NRBC Flagged by Analyzer 0 % (0-5); Neutrophil # 5.23 X10^3/uL (2.7-7.7); Neutrophil % 68.1 % (47-70); Platelet Count 499 K/mm3 (150-450); RBC Distribution Width CV 14.4 % (11.6-14.6); RBC Distribution Width SD 51.3 fl (35.1-43.9); Red Blood Count 4.49 M/mm3 (4.2-5.4); White Blood Count 7.7 K/mm3 (4.4-11.0)
[2022-12-24 12:58] LABS: ALB/GLOB Ratio 0.9 RATIO (0.9-2.4); AST(SGOT) 15 U/L (15-37); Alanine Aminotransfer ALT/SGPT 17 U/L (13-56); Albumin, Serum 3.4 g/dL (3.2-5.0); Alkaline Phosphatase 87 U/L (45-117); Anion Gap 4 (5-15); BUN 17 mg/dL (7-18); Calcium,Total 9.4 mg/dL (8.5-10.1); Chloride 99 mmol/L (98-107); Cholesterol 109 mg/dL (200); EST Glomerular Filtration Rate 66 mL/min (>60); Est Glom Filt Rate - Afr Amer 80 mL/min (>60); Globulin 3.8 g/dL (2.2-4.2); Glucose 104 mg/dL (74-106); High Density Lipoprotein 37 mg/dL; Potassium 4.5 mmol/L (3.5-5.1); Protein, Total 7.2 g/dL (6.4-8.2); Sodium Level 134 mmol/L (136-145); Triglycerides 127 mg/dL; Very Low Density Lipoprotein 25 mg/dL (5-40)
[2022-12-24 13:10] LABS: Valproic Acid (Depakene) Level 8 ug/mL (50-100)
[2022-12-26 14:16] LABS: Vitamin D 1,25-Dihydroxy 28.2 pg/mL (24.8-81.5)
[2022-12-29 22:26] LABS: Lamotrigine (Lamictal) Level 11.2 ug/mL (2.0-20.0)
== END | disposition home or self-care (01) ==
LOC: BIMLAB 08:48
PROVIDERS: Psychiatry & Neurology Neurology; PCP Internal Medicine; Referring Provider Internal Medicine; Visit Provider Internal Medicine
DX: G40.909 Epilepsy, unspecified, not intractable, without status epilepticus (principal); I10 Essential (primary) hypertension; M85.80 Other specified disorders of bone density and structure, unspecified site
CPT/HCPCS: 36415; 80053; 80061; 80164; 82140; 82542; 82652; 85025

== ENCOUNTER → 2022-12-25 | Outpatient (CLI) | payer MEDICARE, MEDICAID, SELFPAY ==
--- NOTE | 2022-12-25 08:19 | BD_ITS ---
STUDY: DUAL ENERGY X-RAY ABSORPTIOMETRY / DXA REASON FOR EXAM: Female, 72 years old. Osteopenia TECHNIQUE: Bone Mineral Density (BMD) measurements of lumbar spine and bilateral hips were obtained. COMPARISON: Comparison is made with prior examination January 21, 2018. FINDINGS: Lumbar Spine (L1-L4): g/cm2 (0.930) / T-score (-1.1) / Z-score (1.1) Findings are suggestive of osteopenia with a low fracture risk. Left Femur Total: g/cm2 (0.761) / T-score (-1.5) / Z-score (0.0) Left Femoral Neck: g/cm2 (0.488) / T-score (-3.3) / Z-score (-1.4) Right Femur Total: g/cm2 (0.639) / T-score (-2.5) / Z-score (-1.0) Right Femoral Neck: g/cm2 (0.520) / T-score (-3.0) / Z-score (-1.1) The T-Scores on the most recent prior examination were: Lumbar Spine (L1-L4): There has been improvement of bone density since the previous examination. Left Femur Total: which represents no significant change. . Right Femur Total: which represents a worsening of 5.3%. BD/Dexa Bone Density Study IMPRESSION: The patient is considered osteoporotic as outlined below according to World Phil Organization (WHO) criteria with a high fracture risk. There has been worsening of bone density since the previous examination. Reference Information: The T-score is the number of standard deviations above or below the standard which is normal for young adults at their peak bone mineral density. The World Health Organization (WHO) interprets the T-scores as follows: Above -1 Normal bone density Between -1 and -2.5 Osteopenia Equal to / or below -2.5 Osteoporosis As a practical clinical guideline, osteopenia may be graded as follows: Mild -1 through -1.5 Moderate -1.6 through -2.0 Severe -2.1 through -2.4 The Z-score is the number of standard deviations above or below age-matched controls. A Z-score of less than -1.5 would be considered abnormal. References: 1. NIH Osteoporosis and Related Bone Diseases www osteo.org 2. International Society for Clinical Densitometry www iscd.org 3. National Osteoporosis Foundation www nof.org Electronically Signed: Wil Ortega MD at 8:38 EST ,
== END | disposition home or self-care (01) ==
LOC: OPBD 07:48
PROVIDERS: PCP Internal Medicine; Visit Provider Psychiatry & Neurology Neurology
DX: M85.89 Other specified disorders of bone density and structure, multiple sites (principal); R93.7 Abnormal findings on diagnostic imaging of other parts of musculoskeletal system
CPT/HCPCS: 77080

== ENCOUNTER → 2023-01-20 | Outpatient (CLI) | payer MEDICARE, MEDICAID, SELFPAY ==
--- NOTE | 2023-01-20 09:01 | BI_ITS ---
MAMMOGRAPHY - BILATERAL SCREENING REASON FOR EXAM: Female, 72 years old. Routine annual screening examination. PERTINENT HISTORY: Non-contributory. TECHNIQUE: Digital bilateral breast isaura (3D mammographic acquisition) in the CC and MLO projections. 2-D mediolateral oblique (MLO) and craniocaudad (CC) views of both breasts were obtained. CAD: Full Field Digital Mammography with Computer Added Detection was performed. COMPARISON: Comparison is made with prior examination dated January 15, 2022 and January 10, 2021. FINDINGS: Breast Composition: The breasts are almost entirely fatty. There are no dominant masses or suspicious calcifications. No other significant abnormalities are identified. There has been no significant change since the prior study. BI/SCRN MAMM (CAD)W/ISAURA BILAT IMPRESSION: Stable bilateral screening mammogram. Yearly follow-up mammogram recommended. (A) ASSESSMENT CATEGORY: BIRADS Category 1: Negative. A letter regarding these results will be sent to the patient by the facility within 30 days. Approximately 10% of breast cancers are not detected by mammography. A normal mammogram should not delay biopsy of a clinically suspicious abnormality. [id number] Electronically Signed: Wil Ortega MD at 11:05 EDT ,
== END | disposition home or self-care (01) ==
LOC: OPBI 08:59
PROVIDERS: PCP Internal Medicine; Referring Provider Internal Medicine; Visit Provider Internal Medicine
DX: Z12.31 Encounter for screening mammogram for malignant neoplasm of breast (principal)
CPT/HCPCS: 77063; 77067

== ENCOUNTER → 2023-03-12 | Outpatient (CLI) | payer MEDICARE, MEDICAID, SELFPAY ==
[2023-03-12 12:17] LABS: Absolute Lymphocyte Count 2.27 X10^3/uL (0.83-4.51); Absolute Neutrophil Count 6.6 X10^3/uL (2.0-7.7); Basophil# 0.05 X10^3/uL; Basophil% 0.5 % (0-1); Eosinophil# 0.12 X10^3/uL; Eosinophils% 1.2 % (0-5); Hematocrit 45.3 % (37-47); Hemoglobin 14.1 g/dL (12.0-15.0); Lymphocyte # 2.27 X10^3/ul (0.83-4.51); Lymphocyte % 23.1 % (19-41); Mean Corp Hgb Conc 31.1 g/dL (32-36); Mean Corpuscular Hgb 30.2 pg (27.0-32.0); Mean Platelet Vol. 9.1 fl (6.2-12.0); Monocyte# 0.72 X10^3/uL; Monocyte% 7.3 % (0-10); NRBC Flagged by Analyzer 0 % (0-5); Neutrophil # 6.56 X10^3/uL (2.7-7.7); Neutrophil % 66.7 % (47-70); Platelet Count 560 K/mm3 (150-450); RBC Distribution Width CV 15.6 % (11.6-14.6); RBC Distribution Width SD 55.5 fl (35.1-43.9); Red Blood Count 4.67 M/mm3 (4.2-5.4); White Blood Count 9.8 K/mm3 (4.4-11.0)
[2023-03-12 12:44] LABS: ALB/GLOB Ratio 0.9 RATIO (0.9-2.4); AST(SGOT) 19 U/L (15-37); Alanine Aminotransfer ALT/SGPT 22 U/L (13-56); Albumin, Serum 3.6 g/dL (3.2-5.0); Alkaline Phosphatase 95 U/L (45-117); Anion Gap 5 (5-15); BUN 21 mg/dL (7-18); BUN/Creat Ratio 23.9 RATIO (10-20); Calcium,Total 9.7 mg/dL (8.5-10.1); Chloride 101 mmol/L (98-107); Creatinine, Serum 0.88 mg/dL (0.55-1.02); EST Glomerular Filtration Rate 67 mL/min (>60); Est Glom Filt Rate - Afr Amer 82 mL/min (>60); Glucose 96 mg/dL (74-106); Potassium 5.3 mmol/L (3.5-5.1); Protein, Total 7.6 g/dL (6.4-8.2); Sodium Level 136 mmol/L (136-145); Thyroid Stim Hormone (TSH) 1.17 uIU/mL (0.358-3.74)
== END | disposition home or self-care (01) ==
PROVIDERS: PCP Internal Medicine; Referring Provider Nurse Practitioner Family; Visit Provider Nurse Practitioner Family
DX: D49.2 Neoplasm of unspecified behavior of bone, soft tissue, and skin (principal); R63.5 Abnormal weight gain; R19.7 Diarrhea, unspecified
CPT/HCPCS: 36415; 80053; 84443; 85025

== ENCOUNTER → 2023-03-17 | Outpatient (CLI) | payer MEDICARE, MEDICAID, SELFPAY ==
--- NOTE | 2023-03-17 08:50 | VDLE_ITS ---
Reason For Study: Bilateral lower extremity edema RIGHT LEFT GSV is normal. GSV is normal. CFV is compressible, spontaneous, phasic, CFV is compressible, spontaneous, phasic, competent and demonstrates normal competent, and demonstrates normal augmentation. augmentation. FV is compressible, spontaneous, phasic, FV is compressible, spontaneous, phasic, competent and demonstrates normal competent and demonstrates normal augmentation. augmentation. POP V is compressible, spontaneous, phasic, POP V is compressible, spontaneous, phasic, competent and demonstrates normal competent and demonstrates normal augmentation. augmentation. T/P Trunk is compressible. T/P Trunk is compressible. PTV is compressible. PTV is compressible. RT PerV is compressible. LT PerV is compressible. Procedure This is a venous duplex using B-mode, color flow and spectral Doppler. Exam performed in department. A preliminary report was called and/or faxed to Dr. Roberts. VL/Venous Duplex US - Zeb Extrem Interpretation Summary No evidence for acute deep venous thrombosis bilateral lower extremities with p atent and compressible bilateral great saphenous veins. Ordering Physician: Austin Roberts Referring Physician: Esperanza Baird Performed By: Shannon Tao RVT
== END | disposition home or self-care (01) ==
LOC: CVS 08:48
PROVIDERS: PCP Internal Medicine; Referring Provider Podiatrist; Visit Provider Podiatrist
DX: R22.43 Localized swelling, mass and lump, lower limb, bilateral (principal); M79.604 Pain in right leg; M79.605 Pain in left leg
CPT/HCPCS: 93970

== ENCOUNTER → 2023-04-01 | Outpatient (CLI) | payer MEDICARE, MEDICAID, SELFPAY ==
[2023-04-01 12:32] LABS: Anion Gap 5 (5-15); BUN 20 mg/dL (7-18); BUN/Creat Ratio 22.9 RATIO (10-20); Calcium,Total 9.7 mg/dL (8.5-10.1); Chloride 105 mmol/L (98-107); Creatinine, Serum 0.88 mg/dL (0.55-1.02); EST Glomerular Filtration Rate 68 mL/min (>60); Est Glom Filt Rate - Afr Amer 82 mL/min (>60); Glucose 148 mg/dL (74-106); Potassium 5.1 mmol/L (3.5-5.1); Sodium Level 139 mmol/L (136-145)
== END | disposition home or self-care (01) ==
LOC: BIMLAB 08:27
PROVIDERS: PCP Internal Medicine; Referring Provider Internal Medicine; Visit Provider Internal Medicine
DX: I10 Essential (primary) hypertension (principal)
CPT/HCPCS: 36415; 80048

== ENCOUNTER 2023-09-18 16:50 | Inpatient (IN) | payer MEDICARE, MEDICAID, SELFPAY ==
[2023-09-18 16:52] VITALS: BP 132/89; PULSE 96; RESP 22; TEMP 37; O2SAT 94; BMI 41.9
--- NOTE | 2023-09-18 17:55 | EKG12_ITS ---
Test Reason : DYSRHYTHMIA Blood Pressure : / mmHG Vent. Rate : 083 BPM Atrial Rate : 083 BPM P-R Int : 188 ms QRS Dur : 100 ms QT Int : 384 ms P-R-T Axes : 064 068 059 degrees QTc Int : 451 ms Normal sinus rhythm Normal ECG Confirmed by CORKY SEALS, FARHEEN ([id number]), graphics editor AUTL BANEGAS ([id number]) on 09/21/2023 10:44:11 AM Referred By: LUCERO Confirmed By:FARHEEN FRIED MD
--- NOTE | 2023-09-18 17:57 | EX.ED.DYSGE1 ---
HPI History of Present Illness Chief Complaint: Confusion Informant: patient Narrative Narrative: Patient presents via EMS secondary to generalized weakness. Per EMS report patient was so weak today she had difficulty ambulating. Daughter told EMS that she often will get like this with a UTI, however patient has no symptoms of a UTI at this time. Family is not present at this time for me to talk to. Patient states that she tried to go see her son today who was incarcerated. She states she was so weak she had trouble walking. She denies having pain anywhere. She states has been eating and drinking well. [facility] Medical History (Updated 09/18/23 @ 19:[address] Sonali Hernández MD) Abdominal pain Actinic keratoses Anemia Arthritis Atypical chest pain Back problem Basal cell carcinoma of right forehead Basal cell carcinoma of right medial cheek Basal cell carcinoma of upper lip Benign neoplasm of skin of cheek Bilateral lower extremity edema Bladder disease Cancer COPD (chronic obstructive pulmonary disease) Cutaneous candidiasis DDD (degenerative disc disease) Debility Dermatitis Dietary restriction Dissociative identity disorder Dizziness Drug abuse Flu vaccine need Frequent falls Gastric reflux Hemangioma of face Hepatitis High cholesterol History of edema History of stress test History of UTI Hypertension Injury of back Injury of head and neck Intertrigo Intradermal nevus Kidney failure Left ankle pain Left wrist fracture Loose, teeth Low iron Manic episode Morbid obesity Multiple personalities Neoplasm of skin of eyelid Neoplasm of skin of nose Neurofibroma of neck Obesity (BMI 30-39.9) Osteoarthritis Panic attacks Prediabetes Primary osteoarthritis, left shoulder Rib pain on right side Seizures Shortness of breath on exertion Tumors Type 2 diabetes mellitus Urinary incontinence Venous insufficiency of both lower extremities Walker as ambulation aid Wears glasses Weight gain Home Medications acetaminophen 650 mg tablet,extended release (Tylenol Arthritis Pain) 650 mg PO Q12H 01/23/21 [History Last Taken Unknown] Handicap Placard #1 ea 02/07/21 [Rx Last Taken Unknown] inhalational spacing device (POCKET CHAMBER spacer) #1 ea 06/26/21 [Rx Last Taken Unknown] buprenorphine 100 mg/0.5 mL solution,exten.rel.subcutaneous syringe 100 mg subcut QMONTH WITHDRAWAL SYMPTOM CONTROL 08/07/21 [History Last Taken Unknown] ascorbic acid (vitamin C) 500 mg capsule 500 mg PO DAILY 07/08/22 [History Last Taken Unknown] Incentive Spirometer #1 ea 10/18/22 [Rx Last Taken Unknown] ferrous sulfate 324 mg (65 mg iron) tablet,delayed release 324 mg PO Q OTHER DAY #90 tabs 11/17/22 [Rx Last Taken Unknown] metoprolol succinate 50 mg tablet,extended release 24 hr 50 mg PO DAILY #90 tabs 01/05/23 [Rx Last Taken Unknown] mirabegron 50 mg tablet,extended release 24 hr (Myrbetriq) mg PO 05/07/23 [History Last Taken Unknown] metoprolol succinate 25 mg tablet,extended release 24 hr 25 mg PO QHS #90 tabs 05/08/23 [Rx Last Taken Unknown] rosuvastatin 40 mg tablet 40 mg PO DAILY #90 tabs 05/08/23 [Rx Last Taken Unknown] metformin 500 mg tablet,extended release 24 hr 500 mg PO BID #60 tabs 07/10/23 [Rx Last Taken Unknown] miconazole nitrate 2 % topical powder (Desenex) 1 applic topical BID #85 grams 07/10/23 [Rx Last Taken Unknown] blood sugar diagnostic (FreeStyle Lite Strips) #100 ea 07/15/23 [Rx Last Taken Unknown] blood-glucose meter (FreeStyle Lite Meter kit) #1 ea 07/15/23 [Rx Last Taken Unknown] lancets 28 gauge (FreeStyle Lancets) #200 ea 07/15/23 [Rx Last Taken Unknown] divalproex 500 mg tablet,extended release 24 hr 500 mg PO BID #60 tabs 07/21/23 [Rx Last Taken Unknown] lactulose 10 gram/15 mL oral solution 20 g (30 mL) PO DAILY #946 mL 07/22/23 [Rx Last Taken Unknown] dulaglutide 0.75 mg/0.5 mL subcutaneous pen injector (Trulicity) 0.75 mg subcut QWEEK 08/04/23 [History Last Taken Unknown] calcium carbonate 600 mg calcium (1,500 mg) tablet 600 mg PO BID #180 tabs 08/06/23 [Rx Last Taken Unknown] hydralazine 10 mg tablet 10 mg PO BID blood pressure #180 tabs 08/10/23 [Rx Last Taken Unknown] cariprazine 3 mg capsule (Vraylar) See Rx Instructions .Route .COMPLEX #90 caps 08/17/23 [Rx Last Taken Unknown] lamotrigine 200 mg tablet See Rx Instructions .Route .COMPLEX #90 tabs 08/17/23 [Rx Last Taken Unknown] furosemide 20 mg tablet (Lasix) 20 mg PO DAILY #90 tabs 08/28/23 [Rx Last Taken Unknown] lisinopril 40 mg tablet 40 mg PO QAM blood pressure #90 tabs 08/28/23 [Rx Last Taken Unknown] nicotine 21 mg/24 hr daily transdermal patch 1 patch transdermal Q24H #28 ea 09/16/23 [Rx Last Taken Unknown] Allergy/AdvReac Type Severity Reaction Status Date / Time iloperidone [From Fanapt] Allergy Severe Other Verified 09/18/23 16:52 paliperidone [From Invega] Allergy Severe increased Verified 09/18/23 16:52 psychiatric symptoms lurasidone [From Latuda] Allergy Other Verified 09/18/23 16:52 trazodone AdvReac Severe Other Verified 09/18/23 16:52 theophylline AdvReac Other Verified 09/18/23 16:52 Family History Brother Colon cancer Lung cancer Aunt Obesity Sister Obesity Mother Rheumatoid arthritis Father Alzheimer disease Brother Alzheimer disease Surgical History H/O hernia repair H/O: hysterectomy History of 3 sections History of basal cell carcinoma excision History of History of carpal tunnel surgery History of cholecystectomy History of colonoscopy History of endoscopy History of excision of lesion History of hernia repair Social History Smoking Status: Current every day smoker tobacco type: cigarettes Tobacco: How many years used: 20 how long ago did patient quit smoking: second hand exposure: No alcohol intake: never substance use type: former substance user Date of last use: Cocaine what type of physical activity do you participate in: none vince/confucianism: [employer] seatbelt use: always ROS ROS ED Constitutional Constitutional ED: Denies chills or fever(s) Eyes Eyes: Denies discharge from eye(s) ENT ENT ED: Denies discharge from eye(s), rhinorrhea or sore throat Cardiovascular Cardiovascular: Denies chest pain or palpitations Respiratory/Chest Respiratory/Chest: Reports cough; Denies dyspnea Gastrointestinal Gastrointestinal: Denies abdominal pain, nausea or vomiting Genitourinary Genitourinary ED: Denies dysuria Musculoskeletal Musculoskeletal: Denies back pain or extremity pain Integumentary Denies Abrasions or rash Neurologic Neurologic: Reports weakness; Denies headache(s) Psychiatric Psychiatric: Denies anxiety or depression Allergic/Immunologic Allergic/Immunologic ED: Denies lip swelling or urticaria EXAM Physical Exam Const Vital Signs: 09/18/23 16:52 Temperature 98.6 F Temperature Source Oral Pulse Rate 96 Respiratory Rate 22 H Blood Pressure 132/89 H Blood Pressure Mean 103 Pulse Ox 94 Oxygen Delivery Method Room Air Positive well nourished and well developed General Appearance ED: well developed HEENT Reports moist mucous membranes Eyes EOMs intact bilaterally Chest Wall inspection of chest normal and palpation of chest normal Resp normal respiratory effort and clear to auscultation bilaterally Cardio regular rate and regular rhythm GI non-tender Auscultation: normoactive bowel sounds Palpation: soft Extremity Extremity Narrative: Moves all 4 extremities. Equal distal pulses throughout. Neuro oriented x3 Neuro Narrative: Generalized weakness but no focal neurologic deficit. Psych mental status grossly normal Skin no rashes or lesions noted MDM MDM MDM Narrative Medical decision making narrative: Patient placed on threat monitoring analyst. IV line established. Labwork obtained to evaluate for leukocytosis, anemia, and electrolyte derangement. Chest x-ray obtained to evaluate for acute lung pathology, cardiac size, or mediastinal abnormality. Urinalysis obtained to evaluate for infection/hematuria. Swab for COVID and influenza obtained. History & Record Review Discussion w/independent historian: EMS personnel and Patient Additional record(s) reviewed:: Prior inpatient record, Prior ED visit and Prior labs Lab Data Attestation: I reviewed the patient's lab results. Labs: Laboratory Results - last 24 hr 09/18/23 18:20 WBC 18.1 H RBC 4.64 Hgb 14.1 Hct 41.6 MCV 89.7 MCH 30.4 MCHC 33.9 RDW Std Deviation 44.8 H RDW Coeff of Tami 13.8 Plt Count 525 H MPV 8.7 Immature Gran % (Auto) 1.600 H Neut % (Auto) 79.1 H Lymph % (Auto) 10.6 L [place] % (Auto) 8.0 Eos % (Auto) 0.1 Baso % (Auto) 0.6 Absolute Neuts (auto) 14.3 H Absolute Lymphs (auto) 1.91 Nucleated RBC % 0 Sodium 123 L Potassium 3.6 Chloride 88 L Carbon Dioxide 28.0 Anion Gap 7 BUN 15 Creatinine 1.07 H Estim Creat Clear Calc 38.14 Est GFR (MDRD) Af Amer 65 Est GFR (MDRD) Non-Af 54 L BUN/Creatinine Ratio 14.0 Glucose 100 Lactic Acid 0.8 Calcium 9.0 Total Bilirubin 0.40 Direct Bilirubin 0.12 AST 26 ALT 24 Alkaline Phosphatase 93 Ammonia 42.0 H Troponin I High Sens 18 Total Protein 6.7 Albumin 3.2 Globulin 3.5 Lipase 15 Urine Color Yellow Urine Clarity Clear Urine pH 6.5 Ur Specific [place] 1.010 Urine Protein 30 H Urine Glucose (UA) Normal Urine Ketones 5 H Urine Occult Blood 150 H Urine Nitrite Positive H Urine Bilirubin Negative Urine Urobilinogen Normal Ur Leukocyte Esterase 500 H Urine RBC 0 SEEN Urine WBC 10-25 SEEN Ur Squamous Epith Cells 0-5 SEEN Urine Bacteria 1+ Urine Mucus 0 SEEN Valproic Acid 92 Radiography Chest X-Ray - ED: 1 View, Read by ED Physician and Chronic Changes Diagnostic Testing: Clinical Impression(s) from Imaging Studies Chest X-Ray 09/18/23 18:28 IMPRESSION: Mild right lower lobe interstitial thickening possibly inflammatory.. Electronically Signed: Hay Crabtree MD at 18:51 EST Reading Location ID and State: [facility] / [place] Tel , Service support , EKG Initial EKG: Attestation: I personally reviewed and interpreted this EKG as follows: Interpretation: Sinus Rhythm (Sinus 83 with no acute ischemia.) Treatment and Re-Evaluation :: CBC reveals white count elevated at 18.1 with 79% neutrophils. Sodium is low at 123. There have been occasional visits in the past where her sodium levels were in the 120s, but by enlarge her sodium typically runs in the mid 130s. Creatinine is 1.07 which is only slightly bumped from her baseline. Ammonia level is slightly elevated at 42. LFTs and lipase are unremarkable. Troponin is normal at 18. Urinalysis reveals evidence of infection with positive nitrites, 10-25 white cells, 1+ bacteria. Her valproic acid level is normal at 92. EKG is sinus rhythm with no evidence of ischemia. Portable chest x-ray per my interpretation was chronic changes with no obvious infiltrate. Radiology interpretation reviewed and agrees. Urine is sent for culture. She is given a dose of IV Rocephin. IV fluids initiated to treat her hyponatremia. I will speak with hospitalist. Discharge Plan Triage Chief Complaint: Confusion ED Provider: Sonali Hernández Dx/Rx/DC Orders Clinical Impression: UTI (urinary tract infection), Hyponatremia, Weakness Prescriptions: No Action acetaminophen [Tylenol Arthritis Pain] 650 mg tablet extended release 650 mg PO Q12H buprenorphine 100 mg/0.5 mL solution, extended rel syringe 100 mg subcut QMONTH ascorbic acid (vitamin C) 500 mg capsule 500 mg PO DAILY (DME) Incentive Spirometer See Rx Instructions .Route .MEDSUPPLY Qty: 1 0RF Rx Instructions: As directed ferrous sulfate 324 mg (65 mg iron) tablet,delayed release (DR/EC) 324 mg PO Q OTHER DAY Qty: 90 2RF divalproex 500 mg tablet extended release 24 hr 500 mg PO BID Qty: 60 7RF lactulose 10 gram/15 mL solution 20 g PO DAILY Qty: 946 7RF Myrbetriq 50 mg tablet extended release 24 hr PO metformin 500 mg tablet extended release 24 hr 500 mg PO BID Qty: 60 3RF Trulicity 0.75 mg/0.5 mL pen injector 0.75 mg subcut QWEEK Vraylar 3 mg capsule See Rx Instructions .ROUTE .COMPLEX Qty: 90 1RF Dose Instruction: TAKE ONE CAPSULE BY MOUTH EVERY DAY Rx Instructions: TAKE ONE CAPSULE BY MOUTH EVERY DAY lamotrigine 200 mg tablet See Rx Instructions .ROUTE .COMPLEX Qty: 90 1RF Dose Instruction: TAKE ONE TABLET BY MOUTH AT BEDTIME Rx Instructions: TAKE ONE TABLET BY MOUTH AT BEDTIME (DME) Handicap Placard See Rx Instructions .ROUTE .MEDSUPPLY Qty: 1 0RF Rx Instructions: As directed, length of time 5 years (DME) POCKET CHAMBER Spacer See Rx Instructions .ROUTE .MEDSUPPLY Qty: 1 0RF Rx Instructions: As directed metoprolol succinate 50 mg tablet extended release 24 hr 50 mg PO DAILY Qty: 90 3RF Rx Instructions: Take with 25 mg for a total daily dose of 75 mg metoprolol succinate 25 mg tablet extended release 24 hr 25 mg PO QHS Qty: 90 2RF rosuvastatin 40 mg tablet 40 mg PO DAILY Qty: 90 2RF miconazole nitrate [Desenex] 2 % powder 1 applic topical BID Qty: 85 4RF (DME) FreeStyle Lite Strips Strip See Rx Instructions .MEDSUPPLY Qty: 100 3RF Rx Instructions: check blood glucose daily for type 2 DM (DME) blood-glucose meter [FreeStyle Lite Meter] Kit See Rx Instructions .MEDSUPPLY Qty: 1 0RF Rx Instructions: As directed, check blood glucose daily for type 2 DM (DME) lancets [FreeStyle Lancets] 28 gauge misc See Rx Instructions .MEDSUPPLY Qty: 200 3RF Rx Instructions: check blood glucose daily for type 2 DM calcium carbonate 600 mg calcium (1,500 mg) tablet 600 mg PO BID Qty: 180 3RF hydralazine 10 mg tablet 10 mg PO BID Qty: 180 2RF furosemide [Lasix] 20 mg tablet 20 mg PO DAILY Qty: 90 2RF lisinopril 40 mg tablet 40 mg PO QAM Qty: 90 2RF nicotine 21 mg/24 hr patch 24 hour 1 patch transdermal Q24H Qty: 28 2RF Primary Care Provider: Esperanza Baird Referrals: Esperanza Baird MD [Primary Care Provider] - Disposition Disposition: Acute Care Hospital [facility]
--- NOTE | 2023-09-18 18:28 | RAD_ITS ---
STUDY: X-RAY CHEST REASON FOR EXAM: Female, 73 years old. cough TECHNIQUE: AP portable COMPARISON: May 20, 2022 FINDINGS: Mild interstitial thickening in the right lower lobe. In the right lower lobe which is new finding since prior exam. There is no demonstrated pleural abnormality. Normal size heart. Calcified right hilar nodes. Normal visualized pulmonary arteries. Calcified aortic arch and descending thoracic aorta. Dorsal spine and shoulders demonstrate degenerative changes. Normal visualized ribs, and clavicles. There is no demonstrated abnormality of the visualized soft tissue structures of the upper abdomen. RAD/Chest 1 View (Portable) IMPRESSION: Mild right lower lobe interstitial thickening possibly inflammatory.. Electronically Signed: Hay Crabtree MD at 18:51 EST ,
[2023-09-18 18:34] LABS: Mucous, Urine 0 SEEN /hpf (<or=2+); Red Blood Cells-Urine 0 SEEN /hpf (0-5)
[2023-09-18 18:37] LABS: Absolute Lymphocyte Count 1.91 X10^3/uL (0.83-4.51); Absolute Neutrophil Count 14.3 X10^3/uL (2.0-7.7); Basophil% 0.6 % (0-1); Eosinophil# 0.02 X10^3/uL; Eosinophils% 0.1 % (0-5); Hematocrit 41.6 % (37-47); Hemoglobin 14.1 g/dL (12.0-15.0); Lymphocyte # 1.91 X10^3/ul (0.83-4.51); Lymphocyte % 10.6 % (19-41); Mean Corp Hgb Conc 33.9 g/dL (32-36); Mean Corpuscular Hgb 30.4 pg (27.0-32.0); Mean Corpuscular Volume 89.7 fL (81-99); Mean Platelet Vol. 8.7 fl (6.2-12.0); Monocyte# 1.44 X10^3/uL; NRBC Flagged by Analyzer 0 % (0-5); Neutrophil # 14.29 X10^3/uL (2.7-7.7); Neutrophil % 79.1 % (47-70); Platelet Count 525 K/mm3 (150-450); RBC Distribution Width CV 13.8 % (11.6-14.6); RBC Distribution Width SD 44.8 fl (35.1-43.9); Red Blood Count 4.64 M/mm3 (4.2-5.4); White Blood Count 18.1 K/mm3 (4.4-11.0)
[2023-09-18 18:40] LABS: Glucose, Dipstick Normal (Normal); Ketone-Dipstick 5 mg/dl (Negative); Leukocyte Esterase-Dipstick 500 /ul (Negative); Nitrite-Dipstick Positive (Negative); Occult Blood-Urine 150 /ul (Negative); Protein-Dipstick 30 mg/dl (Negative); Urine Bilirubin Dipstick Negative (Negative); Urine Urobilinogen Normal (Normal); Urine pH 6.5 (5.0 - 8.0)
[2023-09-18 18:42] LABS: Color, Urine Yellow (Yellow); Urine Clarity Clear (Clear)
[2023-09-18 18:54] LABS: Bacteria 1+ /hpf (None Seen); Squamous Epithelial Cells - UA 0-5 SEEN /hpf (5-10); White Blood Cells 10-25 SEEN /hpf (0-5)
[2023-09-18 19:04] LABS: Valproic Acid (Depakene) Level 92 ug/mL (50-100)
[2023-09-18 19:07] LABS: AST(SGOT) 26 U/L (15-37); Alanine Aminotransfer ALT/SGPT 24 U/L (13-56); Albumin, Serum 3.2 g/dL (3.2-5.0); Alkaline Phosphatase 93 U/L (45-117); Anion Gap 7 (5-15); BUN 15 mg/dL (7-18); Bilirubin, Direct 0.12 mg/dL (0.00-0.30); Chloride 88 mmol/L (98-107); Creatinine, Serum 1.07 mg/dL (0.55-1.02); EST Glomerular Filtration Rate 54 mL/min (>60); Est Glom Filt Rate - Afr Amer 65 mL/min (>60); Estimated Creatinine Clearance 38.14 ml/min; Globulin 3.5 g/dL (2.2-4.2); Glucose 100 mg/dL (74-106); Lipase 15 U/L (13-75); Potassium 3.6 mmol/L (3.5-5.1); Protein, Total 6.7 g/dL (6.4-8.2); Sodium Level 123 mmol/L (136-145); Troponin-I HS 18 pg/mL (3.0-54.0)
[2023-09-18 19:22] LABS: Lactic Acid 0.8 mmol/L (0.4-1.9)
[2023-09-18] MEDS: Ceftriaxone 1 GM/50 ML BAG IV (20:12)
[2023-09-18] MEDS: 0.9% Normal Saline (1000mL) 1,000 ML 150 ML IV ×2 (20:12→21:38)
--- NOTE | 2023-09-18 20:13 | HP.PCM.HOS_ITS ---
HPI - General General Date of Service: 09/18/23 Chief Complaint: confusion HPI Narrative ALEXIA POWELL, is a 73 F who presents presents with confusion today. No family is present at bedside but apparently patient was until today where she was more confused and weak. Brought to the emergency room where her sodium was noted to be 123 which is lower than her baseline, also her urinalysis was positive for UTI. Family had mentioned to the emergency room physician that she gets confused like this when she gets a urinary tract infection. Patient does get injections of buprenorphine monthly and her last dose was yesterday. Patient is able to tell me, despite her confusion, that she does not normally get confused after receiving this injection. The buprenorphine is arranged through Dr. Lin from addiction services with [facility]. In emergency room, patient received ceftriaxone and IV fluids. [facility] Medical History Abdominal pain Actinic keratoses Anemia Arthritis Atypical chest pain Back problem Basal cell carcinoma of right forehead Basal cell carcinoma of right medial cheek Basal cell carcinoma of upper lip Benign neoplasm of skin of cheek Bilateral lower extremity edema Bladder disease Cancer COPD (chronic obstructive pulmonary disease) Cutaneous candidiasis DDD (degenerative disc disease) Debility Dermatitis Dietary restriction Dissociative identity disorder Dizziness Drug abuse Flu vaccine need Frequent falls Gastric reflux Hemangioma of face Hepatitis High cholesterol History of edema History of stress test History of UTI Hypertension Injury of back Injury of head and neck Intertrigo Intradermal nevus Kidney failure Left ankle pain Left wrist fracture Loose, teeth Low iron Manic episode Morbid obesity Multiple personalities Neoplasm of skin of eyelid Neoplasm of skin of nose Neurofibroma of neck Obesity (BMI 30-39.9) Osteoarthritis Panic attacks Prediabetes Primary osteoarthritis, left shoulder Rib pain on right side Seizures Shortness of breath on exertion Tumors Type 2 diabetes mellitus Urinary incontinence Venous insufficiency of both lower extremities Walker as ambulation aid Wears glasses Weight gain Home Medications acetaminophen 650 mg tablet,extended release (Tylenol Arthritis Pain) 650 mg PO Q12H 01/23/21 [History Last Taken Unknown] Handicap Placard #1 ea 02/07/21 [Rx Last Taken Unknown] inhalational spacing device (POCKET CHAMBER spacer) #1 ea 06/26/21 [Rx Last Taken Unknown] buprenorphine 100 mg/0.5 mL solution,exten.rel.subcutaneous syringe 100 mg sub cut QMONTH WITHDRAWAL SYMPTOM CONTROL 08/07/21 [History Last Taken Unknown] ascorbic acid (vitamin C) 500 mg capsule 500 mg PO DAILY 07/08/22 [History Last Taken Unknown] Incentive Spirometer #1 ea 08/05/22 [Rx Last Taken Unknown] ferrous sulfate 324 mg (65 mg iron) tablet,delayed release 324 mg PO Q OTHER DAY #90 tabs 11/17/22 [Rx Last Taken Unknown] metoprolol succinate 50 mg tablet,extended release 24 hr 50 mg PO DAILY #90 tabs 01/05/23 [Rx Last Taken Unknown] mirabegron 50 mg tablet,extended release 24 hr (Myrbetriq) mg PO 05/07/23 [History Last Taken Unknown] metoprolol succinate 25 mg tablet,extended release 24 hr 25 mg PO QHS #90 tabs 05/08/23 [Rx Last Taken Unknown] rosuvastatin 40 mg tablet 40 mg PO DAILY #90 tabs 05/08/23 [Rx Last Taken Unknown] metformin 500 mg tablet,extended release 24 hr 500 mg PO BID #60 tabs 07/10/23 [Rx Last Taken Unknown] miconazole nitrate 2 % topical powder (Desenex) 1 applic topical BID #85 grams 07/10/23 [Rx Last Taken Unknown] blood sugar diagnostic (FreeStyle Lite Strips) #100 ea 07/15/23 [Rx Last Taken Unknown] blood-glucose meter (FreeStyle Lite Meter kit) #1 ea 07/15/23 [Rx Last Taken Unknown] lancets 28 gauge (FreeStyle Lancets) #200 ea 07/15/23 [Rx Last Taken Unknown] divalproex 500 mg tablet,extended release 24 hr 500 mg PO BID #60 tabs 07/21/23 [Rx Last Taken Unknown] lactulose 10 gram/15 mL oral solution 20 g (30 mL) PO DAILY #946 mL 07/22/23 [Rx Last Taken Unknown] dulaglutide 0.75 mg/0.5 mL subcutaneous pen injector (Trulicity) 0.75 mg subcut QWEEK 08/04/23 [History Last Taken Unknown] calcium carbonate 600 mg calcium (1,500 mg) tablet 600 mg PO BID #180 tabs 08/06/23 [Rx Last Taken Unknown] hydralazine 10 mg tablet 10 mg PO BID blood pressure #180 tabs 08/10/23 [Rx Last Taken Unknown] cariprazine 3 mg capsule (Vraylar) See Rx Instructions .Route .COMPLEX #90 caps 08/17/23 [Rx Last Taken Unknown] lamotrigine 200 mg tablet See Rx Instructions .Route .COMPLEX #90 tabs 08/17/23 [Rx Last Taken Unknown] furosemide 20 mg tablet (Lasix) 20 mg PO DAILY #90 tabs 08/28/23 [Rx Last Taken Unknown] lisinopril 40 mg tablet 40 mg PO QAM blood pressure #90 tabs 08/28/23 [Rx Last Taken Unknown] nicotine 21 mg/24 hr daily transdermal patch 1 patch transdermal Q24H #28 ea 09/16/23 [Rx Last Taken Unknown] Allergy/AdvReac Type Severity Reaction Status Date / Time iloperidone [From Fanapt] Allergy Severe Other Verified 09/18/23 16:52 paliperidone [From Invega] Allergy Severe increased Verified 09/18/23 16:52 psychiatric symptoms lurasidone [From Latuda] Allergy Other Verified 09/18/23 16:52 trazodone AdvReac Severe Other Verified 09/18/23 16:52 theophylline AdvReac Other Verified 09/18/23 16:52 Family History Brother Colon cancer Lung cancer Aunt Obesity Sister Obesity Mother Rheumatoid arthritis Father Alzheimer disease Brother Alzheimer disease Surgical History H/O hernia repair H/O: hysterectomy History of 3 sections History of basal cell carcinoma excision History of History of carpal tunnel surgery History of cholecystectomy History of colonoscopy History of endoscopy History of excision of lesion History of hernia repair Social History Smoking Status: Current every day smoker tobacco type: cigarettes Tobacco: How many years used: 20 how long ago did patient quit smoking: second hand exposure: No alcohol intake: never substance use type: former substance user Date of last use: Cocaine what type of physical activity do you participate in: none vince/catholic: Gnosticist seatbelt use: always ROS ROS Narrative Lower extremity edema. No change with the edema. No fever or chills. No chest or abdominal pain. Denies dysuria. All review of systems were negative except as mentioned above in the history of present illness and the other review of systems. Vital Signs Vital Signs Vital Signs: 09/18/23 16:52 Temperature 37.0 C Temperature Source Oral Pulse Rate 96 Respiratory Rate 22 H Blood Pressure 132/89 H Blood Pressure Mean 103 Pulse Ox 94 Oxygen Delivery Method Room Air Weight Weight: 104 kg Body Mass Index (BMI) 41.9 Physical Exam Const alert and no apparent distress Constitutional Narrative: Oriented to to self and place. Does not know the date. Afebrile. Anxious because she states that she has to urinate. General Appearance: cooperative HEENT normocephalic and hearing grossly normal bilaterally Resp normal respiratory effort, no retractions, no use of accessory muscles and clear to auscultation bilaterally Cardio regular rate, regular rhythm, S1 normal heart sound and S2 normal heart sound GI normal to inspection, nondistended, normoactive bowel sounds, soft to palpation, non-tender and non-distended Extremity full ROM Extremity Narrative: Bilateral lower extremity edema. Neuro moves all extremities Sensorium / Orientation: awake, alert, oriented to person and oriented to place; Negative for oriented to time Results Lab / Micro Data Attestation: I reviewed the patient's lab results. 09/18/23 18:20 09/18/23 18:20 Labs: Laboratory Results - last 24 hr 09/18/23 18:20: WBC 18.1 H, RBC 4.64, Hgb 14.1, Hct 41.6, MCV 89.7, MCH 30.4, MCHC 33.9, RDW Std Deviation 44.8 H, RDW Coeff of Tami 13.8, Plt Count 525 H, MPV 8.7, Immature Gran % (Auto) 1.600 H, Neut % (Auto) 79.1 H, Lymph % (Auto) 10.6 L , [place]borne % (Auto) 8.0, Eos % (Auto) 0.1, Baso % (Auto) 0.6, Absolute Neuts (auto) 14.3 H, Absolute Lymphs (auto) 1.91, Nucleated RBC % 0, Sodium 123 L, Potassium 3.6, Chloride 88 L, Carbon Dioxide 28.0, Anion Gap 7, BUN 15, Creatinine 1.07 H, Estim Creat Clear Calc 38.14, Est GFR (MDRD) Af Amer 65, Est GFR (MDRD) Non-Af 54 L, BUN/Creatinine Ratio 14.0, Glucose 100, Lactic Acid 0.8, Calcium 9.0, Total Bilirubin 0.40, Direct Bilirubin 0.12, AST 26, ALT 24, Alkaline Phosphatase 93, Ammonia 42.0 H, Troponin I High Sens 18, Total Protein 6.7, Albumin 3.2, Globulin 3.5, Lipase 15, Urine Color Yellow, Urine Clarity Clear, Urine pH 6.5, Ur Specific [place] 1.010, Urine Protein 30 H, Urine Glucose (UA) Normal, Urine Ketones 5 H, Urine Occult Blood 150 H, Urine Nitrite Positive H, Urine Bilirubin Negative, Urine Urobilinogen Normal, Ur Leukocyte Esterase 500 H , Urine RBC 0 SEEN, Urine WBC 10-25 SEEN, Ur Squamous Epith Cells 0-5 SEEN, Uri ne Bacteria 1+, Urine Mucus 0 SEEN, Valproic Acid 92 Micro: Microbiology 09/18/23 18:20 Nasal Secretion SARS-CoV-2 & FLU Antigen (Rapid) - Final EKG Initial EKG: Attestation: I personally reviewed and interpreted this EKG as follows: Prior EKG tracings: available for review EKG Rhythm Intrepretation: Sinus Rhythm Imagaing Radiology Impression Chest X-Ray 09/18/23 18:28 IMPRESSION: Mild right lower lobe interstitial thickening possibly inflammatory.. Electronically Signed: Hay Crabtree MD at 18:51 EST Reading Location ID and State: [address] [place] [address] Tel , Service support , Assessment & Plan Assessment/Plan (1) Encephalopathy: PLAN: Acute. Etiology is prime more likely metabolic but patient does take buprenorphine and did receive an injection yesterday is certainly a contributing factor. That this is more of a chronic maintenance medication patient reports to me that she does not normally have issues with confusion and weakness with that. But patient certainly does have a urinary tract infection as well as does have hyponatremia. Last sodium we have is from April of this year so is unclear what her sodium has been in the interim. Will avoid potentiating medications at this time and correct the underlying etiology and observe. If her condition does not worsen, may need to consider imaging of her brain. The likelihood of this being a stroke is low. (2) UTI (urinary tract infection): PLAN: Positive on urinalysis. Patient received ceftriaxone in the emergency room and will continue on the floor. Follow-up final results of urine culture and adjust antibiotics accordingly. (3) Hyponatremia: PLAN: Unclear etiology at this time. Patient did receive normal saline in the emergency room and will continue on the floor. Will give her an additional 1 L. Patient does have lower extremity edema and does take furosemide chronically. I will see any other additional agents that could be contributing to hyponatremia at this time. Will check a TSH as well as an a.m. cortisol. PLAN: Plan Chronic conditions * Seizure disorder: Continue with divalproex and lamotrigine once again the patient's reconciled. Patient's condition does not sound postictal. * Hypertension: Continue with the hydralazine, lisinopril and metoprolol * Diabetes mellitus type 2: Continue with metformin, add sliding scale insulin. * History of opiate abuse: Patient did receive an injection of buprenorphine yesterday. This is a monthly injection managed by Dr. Lin. I am going to avoid any narcotics at this time given her encephalopathy and history of opi ate abuse. VTE prophylaxis with enoxaparin Charges/Coding Visit Charges Inpatient E&M: 72285 Init Hosp L3
[2023-09-18] MEDS: 0.9% Normal Saline (500mL Bag) 500 ML 999 ML IV (20:31)
[2023-09-18 20:32] VITALS: BP 135/78; PULSE 81; RESP 14; TEMP 37; O2SAT 92
[2023-09-18 20:56] VITALS: BMI 42.7
[2023-09-18 20:57] VITALS: BP 131/75; PULSE 85; RESP 18; TEMP 36.4; O2SAT 93
--- NOTE | 2023-09-18 21:06 | NURSING ---
Pt doesn't know her home medication. states she has a list, but it isn't here.
[2023-09-18 21:47] LABS: Bedside Glucose 93 mg/dL (74-106)
[2023-09-18 23:27] VITALS: BP 158/92; PULSE 87
[2023-09-18] MEDS: hydrALAZINE 10 MG Tablet PO (23:27)
[2023-09-18] MEDS: Acetaminophen 500 MG Tablet PO (23:27)
[2023-09-18] MEDS: Divalproex (ER) 500 MG Tablet PO (23:27)
[2023-09-18] MEDS: Calcium (Elemental) 500 MG Tablet PO (23:28)
[2023-09-18] MEDS: Atorvastatin Calcium 80 MG Tablet PO (23:28)
[2023-09-18] MEDS: Nystatin Powder 15gm Bottle 1 APPLIC TOPICAL (23:34)
[2023-09-19] VITALS (10 sets, daily range): BP systolic 131–178; BP diastolic 56–98; PULSE 73–86; RESP 16–20; TEMP 36.4–36.7; O2SAT 92–96
[2023-09-19] MEDS: Acetaminophen 500 MG Tablet PO ×3 (06:48→21:23)
--- NOTE | 2023-09-19 06:51 | PN.HOSP_ITS ---
Reason for Visit Reason for Visit: Mental status changes Subjective Subjective Mrs. Valentin is a 73-year-old female who presents emergency department last evening with acute confusion. Family was not at the bedside to assist with history however they were with her earlier today and noted that she was more confused and weak. They brought her to the emergency department where her sodium was found to be 123 and her urinalysis was consistent with UTI. Family d id mention to the emergency department room physician that she does get confused when she gets urinary tract infections. She is following with Dr. Lin from addiction medicine over at [address] and got a buprenorphine and injection on 09/17/2023 which she does receive monthly. Patient/family report this typically does not make her confused. Vital signs were stable on presentation. She was admitted to the medical floor and given IV fluids to assess if this would help correct her sodium and started on ceftriaxone for her urinary tract infection. Cultures were sent prior to antibiotics being initiated. She was maintained on her chronic home medications. Patient states she is feeling a little better today however does feel weak. She is amenable to home health care however does not want to be placed in a skilled facility. I discussed with her that we would follow her clinically over the n ext 24 hours and if she is ready to go home tomorrow and we have culture results we would be able to do so however if she is not able to take care of herself then we would need to continue hospitalization for another 24 hours at least for more therapy. She does admit that she does not take her lactulose as prescribed as she does not have a calving that many bowel movements. I did discuss with he r the need for her having 2-3 bowel movements daily in order to stay on her Depakote and she did voiced understanding however was not happy that that time any bowel movements we would like her to have daily. Objective Data Objective Data Vital Signs: Vital Signs Temp Pulse Resp BP Pulse Ox O2 Del Method 97.7 F L 79 20 H 131/56 H 92 Room Air 09/19/23 03:55 09/19/23 03:55 09/19/23 03:55 09/19/23 03:55 09/19/23 03:55 09/19/23 04:00 Oxygen Delivery Method Room Air Weight: 98.6 kg Body Mass Index (BMI) 42.7 Intake & Output: Intake and Output for Last 24 Hours 11/09/18/23 09/19/23 23:59 23:59 23:59 Intake Total 1167.5 / 1167.5 955 / 955 Output Total 300 / 300 Balance 867.5 / 867.5 955 / 955 Lab / Micro Data 09/19/23 06:35 09/19/23 06:35 Labs: Laboratory Results - last 24 hr 09/18/23 18:20: WBC 18.1 H, RBC 4.64, Hgb 14.1, Hct 41.6, MCV 89.7, MCH 30.4, MCHC 33.9, RDW Std Deviation 44.8 H, RDW Coeff of Tami 13.8, Plt Count 525 H, MPV 8.7, Immature Gran % (Auto) 1.600 H, Neut % (Auto) 79.1 H, Lymph % (Auto) 10.6 L , Placer % (Auto) 8.0, Eos % (Auto) 0.1, Baso % (Auto) 0.6, Absolute Neuts (auto) 14.3 H, Absolute Lymphs (auto) 1.91, Nucleated RBC % 0, Sodium 123 L, Potassium 3.6, Chloride 88 L, Carbon Dioxide 28.0, Anion Gap 7, BUN 15, Creatinine 1.07 H, Estim Creat Clear Calc 38.14, Est GFR (MDRD) Af Amer 65, Est GFR (MDRD) Non-Af 54 L, BUN/Creatinine Ratio 14.0, Glucose 100, Lactic Acid 0.8, Calcium 9.0, Total Bilirubin 0.40, Direct Bilirubin 0.12, AST 26, ALT 24, Alkaline Phosphatase 93, Ammonia 42.0 H, Troponin I High Sens 18, Total Protein 6.7, Albumin 3.2, Globulin 3.5, Lipase 15, Urine Color Yellow, Urine Clarity Clear, Urine pH 6.5, Ur Specific [place] 1.010, Urine Protein 30 H, Urine Glucose (UA) Normal, Urine Ketones 5 H, Urine Occult Blood 150 H, Urine Nitrite Positive H, Urine Bilirubin Negative, Urine Urobilinogen Normal, Ur Leukocyte Esterase 500 H , Urine RBC 0 SEEN, Urine WBC 10-25 SEEN, Ur Squamous Epith Cells 0-5 SEEN, Urine Bacteria 1+, Urine Mucus 0 SEEN, Valproic Acid 92 09/18/23 21:28: POC Glucose 93 Micro: Microbiology 09/18/23 18:20 Nasal Secretion SARS-CoV-2 & FLU Antigen (Rapid) - Final Radiography Diagnostic Testing: Radiology Impression Chest X-Ray 09/18/23 18:28 IMPRESSION: Mild right lower lobe interstitial thickening possibly inflammatory.. Electronically Signed: Hay Crabtree MD at 18:51 EST Reading Location ID and State: [address] [place] [address] Tel , Service support , Physical Exam Const alert, oriented x3 and no apparent distress Constitutional Narrative: Morbidly obese, older, white female, sitting up in bed, appears older than stated age, appears comfortable nontoxic HEENT head/scalp atraumatic and moist oral mucous membranes HEENT Narrative: Dentition is poor, Mallampati is 3, no thrush Head and Scalp: normocephalic Resp normal respiratory effort, no retractions, no use of accessory muscles and clear to auscultation bilaterally Auscultation: Negative for rales, rhonchi or wheezes Cardio regular rate, regular rhythm, S1 normal heart sound, S2 normal heart sound, no murmurs, no rub, no gallops and no clicks GI normal to inspection, nondistended, normoactive bowel sounds, soft to palpation and non-tender Extremity no clubbing, cyanosis or edema Extremity Narrative: Pedal pulses are 2+ Neuro oriented x3, moves all extremities and no focal motor deficits Neuro Narrative: Generalized weakness noted but no focal deficits Speech: speech normal Psych affect normal Psych Narrative: Eye contact is good and patient interacts appropriately Assessment & Plan Assessment/Plan (1) Encephalopathy: (2) Hyponatremia: (3) Weakness: (4) UTI (urinary tract infection): (5) Leukocytosis: (6) Thrombocytosis: (7) Elevated serum creatinine: PLAN: Plan Acute urinary tract infection -UA is consistent with UTI -Cultures pending but preliminary shows gram-negative namrata -Most recent positive urine culture shows Klebsiella which was fairly sensitive organism and was sensitive to ceftriaxone -We will continue ceftriaxone at this time and wait culture and sensitivity results Toxic/metabolic encephalopathy -Suspect related to hyponatremia and UTI -Awaiting morning sodium -Continue to treat urinary tract infection -Sounds as if this was overall fairly mild as patient was mentating and able to participate in the interview on admission Elevated serum creatinine -Baseline serum creatinine appears to run between 0.7 and 0.9 -Was 1.07 on presentation -Does not meet criteria for YANE however did appear to be mildly dehydrated -Patient does report p.o. intake was poor prior to presentation -IV fluids -A.m. labs pending Leukocytosis -Likely related to the above -Continue to trend -A.m. labs pending Thrombocytosis -Suspect related to acute infection -A.m. labs pending -Will trend Generalized weakness -Likely related to UTI/hyponatremia -PT/OT consultation -Case management/social work consultation for discharge needs -Do not anticipate patient will require placement but may need home health care DM-2 -Hemoglobin A1c was performed in June and was less than 7 so patient appea rs to be well-controlled -Hold home Trulicity -Continue Faith -SSI -Accu-Cheks as ordered Hypertension -Continue home lisinopril -Continue home metoprolol -Continue home hydralazine Hyperlipidemia -Continue home statin Bipolar disorder -Follows with psychiatry -Continue home medications Seizure disorder -Continue home Depakote -Has hyperammonemia related to her Depakote and is on lactulose for this -No concerns about encephalopathy be related to her ammonia as her ammonia level on presentation was only 42 COPD Been does not take any home inhaler -If becomes short of breath could consider as needed albuterol History of urinary incontinence -Continue home medication once verified Tobacco abuse -Nicotine replacement therapy if needed -Recommend cessation History of opiate abuse -Patient is followed with Dr. Lin at [address] -Patient received buprenorphine injection on 09/17/2023 which she receives monthly Morbid obesity -BMI is 42.7 -Recommend weight loss -Complicates treatment, prognosis, outcomes DVT prophylaxis -Enoxaparin 40 mg daily--> will increase to twice daily given BMI of 42.7 CODE STATUS -Full code however unverified at this time--> patient was full code at previous hospitalizations Charges/Coding Visit Charges Inpatient E&M: 26098 Subs Hosp L2
[2023-09-19 07:43] LABS: Absolute Lymphocyte Count 1.72 X10^3/uL (0.83-4.51); Absolute Neutrophil Count 9.2 X10^3/uL (2.0-7.7); Basophil# 0.04 X10^3/uL; Basophil% 0.3 % (0-1); Eosinophil# 0.08 X10^3/uL; Eosinophils% 0.7 % (0-5); Hematocrit 36.1 % (37-47); Hemoglobin 12.1 g/dL (12.0-15.0); Lymphocyte # 1.72 X10^3/ul (0.83-4.51); Lymphocyte % 14.1 % (19-41); Mean Corp Hgb Conc 33.5 g/dL (32-36); Mean Corpuscular Hgb 30.8 pg (27.0-32.0); Mean Corpuscular Volume 91.9 fL (81-99); Mean Platelet Vol. 9.1 fl (6.2-12.0); Monocyte% 8.2 % (0-10); NRBC Flagged by Analyzer 0 % (0-5); Neutrophil # 9.19 X10^3/uL (2.7-7.7); Neutrophil % 75.2 % (47-70); Platelet Count 472 K/mm3 (150-450); RBC Distribution Width CV 14.1 % (11.6-14.6); Red Blood Count 3.93 M/mm3 (4.2-5.4); White Blood Count 12.2 K/mm3 (4.4-11.0)
[2023-09-19] MEDS: Metoprolol(XL)Succ 50 MG Tablet 75 MG PO (07:55)
[2023-09-19] MEDS: metFORMIN (XR) 500 MG Tablet PO ×2 (07:56→16:58)
[2023-09-19] MEDS: Ascorbic Acid 500 MG Tablet PO (07:57)
[2023-09-19] MEDS: Lisinopril 40 MG Tablet PO (07:57)
[2023-09-19] MEDS: Calcium (Elemental) 500 MG Tablet PO ×2 (07:57→21:23)
[2023-09-19] MEDS: hydrALAZINE 10 MG Tablet PO ×2 (07:57→21:22)
[2023-09-19] MEDS: Divalproex (ER) 500 MG Tablet PO ×2 (07:58→21:25)
[2023-09-19] MEDS: Lactulose 20 GM/30 ML UDC PO (07:58)
[2023-09-19] MEDS: Enoxaparin 40 MG/0.4 ML Syringe SC ×2 (08:00→21:21)
[2023-09-19] MEDS: Nystatin Powder 15gm Bottle 1 APPLIC TOPICAL ×2 (08:00→21:25)
[2023-09-19] MEDS: Glucerna Shake 120 ML LIQUID PO ×3 (08:07→16:58)
[2023-09-19 08:37] LABS: ALB/GLOB Ratio 0.9 RATIO (0.9-2.4); AST(SGOT) 19 U/L (15-37); Alanine Aminotransfer ALT/SGPT 20 U/L (13-56); Albumin, Serum 2.6 g/dL (3.2-5.0); Alkaline Phosphatase 78 U/L (45-117); Anion Gap 7 (5-15); BUN 13 mg/dL (7-18); BUN/Creat Ratio 15.8 RATIO (10-20); Calcium,Total 8.5 mg/dL (8.5-10.1); Chloride 94 mmol/L (98-107); Creatinine, Serum 0.82 mg/dL (0.55-1.02); EST Glomerular Filtration Rate 73 mL/min (>60); Est Glom Filt Rate - Afr Amer 88 mL/min (>60); Estimated Creatinine Clearance 97.95 ml/min; Glucose 100 mg/dL (74-106); Potassium 3.5 mmol/L (3.5-5.1); Protein, Total 5.6 g/dL (6.4-8.2); Sodium Level 128 mmol/L (136-145); Thyroid Stim Hormone (TSH) 0.49 uIU/mL (0.358-3.74)
[2023-09-19] MEDS: Insulin Lispro 100 UNIT/ML INSULN.PEN SC (11:36)
[2023-09-19 12:03] LABS: Bedside Glucose 105 mg/dL (74-106)
[2023-09-19 12:39] LABS: Bedside Glucose 151 mg/dL (74-106)
[2023-09-19 13:36] LABS: Hemoglobin A1c 5.6 % (3.8-5.6)
--- NOTE | 2023-09-19 15:30 | CASEMGMT ---
MARIBELL DRAKE Assessment: MARIBELL DRAKE to room to meet w/pt for initial transition planning/care coordination assessment. MARIBELL DRAKE introduced self and role at [facility], pt voices understanding and consents to assessment. Pt is A/O x3 and answers all questions appropriately at this time, but is slightly forgetful. Pt sitting up in chair in room in no distress. Care providers, pharmacy, and demographics verified/updated. PCP: Oli Specialists:Drew, onc; Sury, psychiatrist; Les, ortho; Iesha, neuro Preferred Pharmacy: [facility] ([facility] receives meds in bubble packs. They are not open on Sundays. If pt is ready for discharge on Thursday and goes home on any new medications, pt will need to choose a different pharmacy to have them sent to. She states she will think about it. Insurance: [employer] Prescription Benefit: yes LNOK: Lizy Miller, dtr; Shiv, grandson Living Arrangements: Pt lives alone in a ground level apt with no steps to enter. Pt reports she is dependent on her aide for bathing, dressing, laundry, housekeeping tasks as well as groceries. Pt denies concerns at home. Transportation: Pt states she has taxi passes. Dtr will take her home @ discharge. DME: Pt has grab bars in the bathroom, lift chair, pull ups and chux from [facility], walker, cane, raised toilet seat, medical alert, functioning glucometer w/sufficient supplies, and shower chair. HHC/SNF: [facility] and [facility] the past and denies SNF stays. Pt states she would like [facility] again @ discharge and declines wanting list of other HH options. Order placed for HHC: PT/OT and SN. Pt made aware referral will be sent today, but HHC cannot be officially set up on the W/E. CM or assortment planner to f/u with her on Thursday re: if they are able to accept and to assist further, if needed. [facility]/CM: Pt has services through [facility] and has CM, Carolyne Ram and aids through [facility] that come Mondays (3 hrs), Tuesdays (5 hrs), and Wednesdays (3 hrs). Pt receives 10 meals/week through [email or web address]. Plan: Home with aide services resuming, notified SW. Referral sent to [facility] for HHC: SN and PT/OT. CM or assortment planner to f/u with pt on Thursday re: if they are able to accept her. Jerald FAMN RN CM
[2023-09-19 16:29] LABS: Bedside Glucose 116 mg/dL (74-106)
[2023-09-19] MEDS: Ceftriaxone 1 GM/50 ML BAG IV (21:16)
[2023-09-19] MEDS: 0.9% Saline Lock 10 ML Syringe IV (21:16)
[2023-09-19] MEDS: Atorvastatin Calcium 80 MG Tablet PO (21:23)
[2023-09-19] MEDS: Metoprolol(XL)Succ 25 MG Tablet PO (21:26)
[2023-09-19] MEDS: lamoTRIgine 100 MG Tablet 200 MG PO (21:27)
[2023-09-19 22:11] LABS: Bedside Glucose 108 mg/dL (74-106)
[2023-09-20] VITALS (9 sets, daily range): BP systolic 144–198; BP diastolic 74–99; PULSE 74–85; RESP 16–18; TEMP 36.3–36.9; O2SAT 94–96
[2023-09-20] MEDS: Acetaminophen 500 MG Tablet PO ×3 (06:26→21:17)
[2023-09-20 06:49] LABS: Absolute Lymphocyte Count 2.39 X10^3/uL (0.83-4.51); Absolute Neutrophil Count 6.5 X10^3/uL (2.0-7.7); Basophil# 0.05 X10^3/uL; Basophil% 0.5 % (0-1); Hematocrit 40.2 % (37-47); Hemoglobin 13.2 g/dL (12.0-15.0); Lymphocyte # 2.39 X10^3/ul (0.83-4.51); Lymphocyte % 23.8 % (19-41); Mean Corp Hgb Conc 32.8 g/dL (32-36); Mean Corpuscular Hgb 31.1 pg (27.0-32.0); Mean Corpuscular Volume 94.6 fL (81-99); Monocyte# 0.76 X10^3/uL; Monocyte% 7.6 % (0-10); NRBC Flagged by Analyzer 0 % (0-5); Neutrophil # 6.53 X10^3/uL (2.7-7.7); Neutrophil % 65.1 % (47-70); Platelet Count 507 K/mm3 (150-450); RBC Distribution Width CV 14.4 % (11.6-14.6); RBC Distribution Width SD 49.5 fl (35.1-43.9); Red Blood Count 4.25 M/mm3 (4.2-5.4)
[2023-09-20 07:13] LABS: Bedside Glucose 114 mg/dL (74-106)
[2023-09-20 07:40] LABS: Anion Gap 5 (5-15); BUN 10 mg/dL (7-18); BUN/Creat Ratio 11.4 RATIO (10-20); Calcium,Total 9.1 mg/dL (8.5-10.1); Chloride 98 mmol/L (98-107); Creatinine, Serum 0.88 mg/dL (0.55-1.02); EST Glomerular Filtration Rate 68 mL/min (>60); Est Glom Filt Rate - Afr Amer 82 mL/min (>60); Estimated Creatinine Clearance 91.27 ml/min; Glucose 83 mg/dL (74-106); Magnesium 2.4 mg/dL (1.6-2.6); Phosphorus 3.4 mg/dL (2.5-4.9); Potassium 3.7 mmol/L (3.5-5.1); Sodium Level 133 mmol/L (136-145)
[2023-09-20] MEDS: Metoprolol(XL)Succ 50 MG Tablet 75 MG PO (07:57)
[2023-09-20] MEDS: Calcium (Elemental) 500 MG Tablet PO ×2 (07:57→21:16)
[2023-09-20] MEDS: Ferrous Sulfate 325 MG Tablet PO (07:59)
[2023-09-20] MEDS: Lisinopril 40 MG Tablet PO (07:59)
[2023-09-20] MEDS: hydrALAZINE 10 MG Tablet PO (07:59)
[2023-09-20] MEDS: metFORMIN (XR) 500 MG Tablet PO ×2 (07:59→16:20)
[2023-09-20] MEDS: Ascorbic Acid 500 MG Tablet PO (07:59)
[2023-09-20] MEDS: Divalproex (ER) 500 MG Tablet PO ×2 (08:00→21:16)
[2023-09-20] MEDS: Enoxaparin 40 MG/0.4 ML Syringe SC ×2 (08:02→21:21)
[2023-09-20] MEDS: Tolterodine Tartrate 2 MG CAP.SA PO (08:02)
[2023-09-20] MEDS: Glucerna Shake 120 ML LIQUID PO ×3 (08:05→16:22)
[2023-09-20] MEDS: Nystatin Powder 15gm Bottle 1 APPLIC TOPICAL ×2 (08:09→21:17)
--- NOTE | 2023-09-20 11:26 | PN.HOSP_ITS ---
Reason for Visit Reason for Visit: Confusion Subjective Subjective Patient states she is feeling much better. Mental status appears back to baseline. Patient anxious to go back home however we did find out that her daughter has the keys to her house which is currently locked. Her daughter is in [place] and will be back till tomorrow. This prohibits discharge until tomorrow and we can get her house open for her. Patient has been resistant to the utilization of her lactulose because it causes diarrhea. I did discuss with her again today the importance of utilizing this however we will decrease the dose from 20 to 10 mg as she states she has significant diarrhea even with the 20 mg. Objective Data Objective Data Vital Signs: Vital Signs Temp Pulse Resp BP Pulse Ox O2 Del Method 97.8 F 74 16 144/74 H 94 Room Air 09/20/23 09:50 09/20/23 09:50 09/20/23 09:50 09/20/23 09:50 09/20/23 09:50 09/20/23 09:50 Oxygen Delivery Method Room Air Weight: 98.6 kg Body Mass Index (BMI) 42.7 Intake & Output: Intake and Output for Last 24 Hours 09/18/23 09/19/23 09/20/23 23:59 23:59 23:59 Intake Total 1167.5 / 1167.5 2049 200 / 200 Output Total 300 / 300 Balance 867.5 / 867.5 2049 200 / 200 Lab / Micro Data 09/20/23 05:20 09/20/23 05:20 Labs: Laboratory Results - last 24 hr 09/19/23 06:35: Hemoglobin A1c 5.6 09/19/23 06:39: POC Glucose 105 09/19/23 11:28: POC Glucose 151 H 09/19/23 15:56: POC Glucose 116 H 09/19/23 21:15: POC Glucose 108 H 09/20/23 05:20: WBC 10.0, RBC 4.25, Hgb 13.2, Hct 40.2, MCV 94.6, MCH 31.1, MCHC 32.8, RDW Std Deviation 49.5 H, RDW Coeff of Tami 14.4, Plt Count 507 H, MPV 9.0, Immature Gran % (Auto) 2.000 H, Neut % (Auto) 65.1, Lymph % (Auto) 23.8, [place] % (Auto) 7.6, Eos % (Auto) 1.0, Baso % (Auto) 0.5, Absolute Neuts (auto) 6.5, Absolute Lymphs (auto) 2.39, Nucleated RBC % 0, Sodium 133 L, Potassium 3.7, Chloride 98, Carbon Dioxide 30.0, Anion Gap 5, BUN 10, Creatinine 0.88, Estim Creat Clear Calc 91.27, Est GFR (MDRD) Af Amer 82, Est GFR (MDRD) Non-Af 68, BUN/Creatinine Ratio 11.4, Glucose 83, Calcium 9.1, Phosphorus 3.4, Magnesium 2.4 09/20/23 06:28: POC Glucose 114 H Micro: Microbiology 09/18/23 18:20 Urine, Clean Catch Urine Culture - Final Proteus mirabilis 09/18/23 18:20 Nasal Secretion SARS-CoV-2 & FLU Antigen (Rapid) - Final Physical Exam Const alert, oriented x3, no apparent distress and well nourished Constitutional Narrative: Morbidly obese, older, white female, sitting up in a chair at the bedside fully dressed in street close, appears older than stated age, appears comfortable nontoxic, nursing at bedside General Appearance: cooperative HEENT normocephalic, head/scalp atraumatic, hearing grossly normal bilaterally and moist oral mucous membranes HEENT Narrative: Dentition is poor, Mallampati is 3, no thrush Resp normal respiratory effort, no retractions, no use of accessory muscles and clear to auscultation bilaterally Auscultation: Negative for rales, rhonchi or wheezes Cardio regular rate, regular rhythm, S1 normal heart sound, S2 normal heart sound, no murmurs, no rub, no gallops and no clicks GI normal to inspection, nondistended, normoactive bowel sounds, soft to palpation and non-tender Extremity no clubbing, cyanosis or edema Extremity Narrative: Pedal pulses are 2+ Neuro oriented x3, moves all extremities and no focal motor deficits Neuro Narrative: Mild generalized weakness noted but no focal deficits Sensorium / Orientation: awake, alert, oriented to person, oriented to place and oriented to time Speech: speech normal Psych affect normal Psych Narrative: Eye contact is good and patient interacts appropriately Assessment & Plan Assessment/Plan (1) Encephalopathy: (2) Hyponatremia: (3) Weakness: (4) UTI (urinary tract infection): (5) Leukocytosis: (6) Thrombocytosis: (7) Elevated serum creatinine: PLAN: Plan Acute Proteus urinary tract infection -UA is consistent with UTI -Cultures growing Proteus mirabilis sensitive to ceftriaxone -Continue ceftriaxone will likely discharge on Keflex to complete treatment Toxic/metabolic encephalopathy -Resolved -Likely related to acute hyponatremia and acute UTI Elevated serum creatinine -Resolved Leukocytosis -Resolved Thrombocytosis -Suspect related to acute infection however still elevated slightly -A.m. labs pending -Will trend Generalized weakness -Likely related to UTI/hyponatremia -PT/OT following and patient needs ongoing physical therapy and is amenable to home health care discharge which will be arranged for her tomorrow -Case management/social work consultation for discharge needs -Home health care to be followed up on on tomorrow DM-2 -Hemoglobin A1c was performed in June and was less than 7 so patient appears to be well-controlled -Hold home Trulicity -Continue metformin -SSI -Accu-Cheks as ordered Hypertension -Continue home lisinopril -Continue home metoprolol -Continue home hydralazine but increase from 10 mg twice daily to 20 mg 3 times daily for improved blood pressure control -Goal for her is less than 130/80 Hyperlipidemia -Continue home statin Bipolar disorder -Follows with psychiatry -Continue home medications Seizure disorder -Continue home Depakote -Has hyperammonemia related to her Depakote and is on lactulose for this -Patient resistant to her lactulose use due to the diarrhea issue. We did discuss that the goal is to have 2-3 bowel movements daily and decreased her dose from 20 to 10 mg -No concerns about encephalopathy be related to her ammonia as her ammonia level on presentation was only 42 COPD -does not take any home inhaler -If becomes short of breath could consider as needed albuterol History of urinary incontinence -Continue home medication once verified Tobacco abuse -Nicotine replacement therapy if needed -Recommend cessation History of opiate abuse -Patient is followed with Dr. Lin at 180 -Patient received buprenorphine injection on 09/17/2023 which she receives [facility] Morbid obesity -BMI is 42.7 -Recommend weight loss -Complicates treatment, prognosis, outcomes DVT prophylaxis -Enoxaparin 40 mg twice daily CODE STATUS -Full code however unverified at this time--> patient was full code at previous hospitalizations Charges/Coding Visit Charges Inpatient E&M: 83025 Subs Hosp L2
[2023-09-20 11:45] LABS: Bedside Glucose 113 mg/dL (74-106)
[2023-09-20] MEDS: Lactulose 20 GM/30 ML UDC 10 GM PO (13:09)
[2023-09-20] MEDS: hydrALAZINE 10 MG Tablet 20 MG PO ×2 (13:09→21:16)
[2023-09-20] MEDS: Mirabegron 50 MG TAB.ER.24H PO (16:19)
[2023-09-20 16:53] LABS: Bedside Glucose 94 mg/dL (74-106)
[2023-09-20] MEDS: lamoTRIgine 100 MG Tablet 200 MG PO (21:16)
[2023-09-20] MEDS: Metoprolol(XL)Succ 25 MG Tablet PO (21:16)
[2023-09-20] MEDS: Atorvastatin Calcium 80 MG Tablet PO (21:16)
[2023-09-20] MEDS: 0.9% Saline Lock 10 ML Syringe IV (21:43)
[2023-09-20] MEDS: Ceftriaxone 1 GM/50 ML BAG IV (21:43)
[2023-09-20 22:43] LABS: Bedside Glucose 96 mg/dL (74-106)
[2023-09-21] VITALS (8 sets, daily range): BP systolic 141–243; BP diastolic 72–109; PULSE 73–88; RESP 17–18; TEMP 36.6; O2SAT 93–98
[2023-09-21] MEDS: hydrALAZINE 10 MG Tablet 20 MG PO ×3 (04:29→15:03)
[2023-09-21] MEDS: Acetaminophen 500 MG Tablet PO ×2 (04:30→14:21)
[2023-09-21 06:33] LABS: Bedside Glucose 107 mg/dL (74-106)
[2023-09-21 06:38] LABS: Absolute Lymphocyte Count 2.11 X10^3/uL (0.83-4.51); Absolute Neutrophil Count 7.5 X10^3/uL (2.0-7.7); Basophil# 0.08 X10^3/uL; Basophil% 0.7 % (0-1); Eosinophils% 1.8 % (0-5); Hematocrit 42.7 % (37-47); Hemoglobin 14.1 g/dL (12.0-15.0); Lymphocyte # 2.11 X10^3/ul (0.83-4.51); Mean Corpuscular Hgb 31.2 pg (27.0-32.0); Mean Corpuscular Volume 94.5 fL (81-99); Mean Platelet Vol. 9.3 fl (6.2-12.0); Monocyte# 0.79 X10^3/uL; Monocyte% 7.1 % (0-10); NRBC Flagged by Analyzer 0 % (0-5); Neutrophil % 67.6 % (47-70); Platelet Count 544 K/mm3 (150-450); RBC Distribution Width CV 14.2 % (11.6-14.6); RBC Distribution Width SD 49.5 fl (35.1-43.9); Red Blood Count 4.52 M/mm3 (4.2-5.4); White Blood Count 11.1 K/mm3 (4.4-11.0)
[2023-09-21 07:28] LABS: Anion Gap 7 (5-15); BUN 8 mg/dL (7-18); BUN/Creat Ratio 10.2 RATIO (10-20); Calcium,Total 9.4 mg/dL (8.5-10.1); Chloride 96 mmol/L (98-107); Creatinine, Serum 0.78 mg/dL (0.55-1.02); EST Glomerular Filtration Rate 77 mL/min (>60); Est Glom Filt Rate - Afr Amer 93 mL/min (>60); Estimated Creatinine Clearance 80.32 ml/min; Glucose 126 mg/dL (74-106); Potassium 4.1 mmol/L (3.5-5.1); Sodium Level 129 mmol/L (136-145)
[2023-09-21] MEDS: Enoxaparin 40 MG/0.4 ML Syringe SC (08:35)
[2023-09-21] MEDS: Ascorbic Acid 500 MG Tablet PO (08:36)
[2023-09-21] MEDS: Ibuprofen 600 MG Tablet PO (08:36)
[2023-09-21] MEDS: Divalproex (ER) 500 MG Tablet PO (08:36)
[2023-09-21] MEDS: metFORMIN (XR) 500 MG Tablet PO (08:37)
[2023-09-21] MEDS: Mirabegron 50 MG TAB.ER.24H PO (08:37)
[2023-09-21] MEDS: Nystatin Powder 15gm Bottle 1 APPLIC TOPICAL (08:38)
[2023-09-21] MEDS: Calcium (Elemental) 500 MG Tablet PO (08:38)
[2023-09-21] MEDS: Glucerna Shake 120 ML LIQUID PO ×2 (08:40→12:24)
[2023-09-21] MEDS: Metoprolol(XL)Succ 50 MG Tablet 75 MG PO (08:41)
[2023-09-21] MEDS: Lisinopril 40 MG Tablet PO (08:58)
--- NOTE | 2023-09-21 08:58 | CASEMGMT ---
Addendum entered by Azucena Henley 09/21/23 13:41: Received tc back from Emilia at [facility], they can accept pt for services tomorrow. Pt updated. Addendum entered by Azucena Henley 09/21/23 13:26: 1300- TC to [facility] to follow up on referral, left vm requesting returned call. Addendum entered by Azucena Henley 09/21/23 09:09: TC to Emilia at [facility], referral made, will await acceptance. Addendum entered by Azucena Henley 09/21/23 09:05: MARIBELL DRAKE into pt room, pt sitting in chair, pt aware that [facility] is unable to take her at this time. She states she would like to try [facility] as she has had in the past. She denies need for HHC list but will take if [facility] cannot accept her. Original Note: Received notification via [facility] that [facility] is unable to take pt insurance at this time.
[2023-09-21] MEDS: Tolterodine Tartrate 2 MG CAP.SA PO (09:15)
--- NOTE | 2023-09-21 10:15 | CASEMGMT ---
Social Work SW called [facility], let Carolyne Germán know pt is being discharged today. She would like d/c instructions faxed once completed to [phone]. JARETT Ramirez
--- NOTE | 2023-09-21 11:04 | CASEMGMT ---
Discharge Planning A list of HH providers including quality and resource use data and consistent with the patient's preferred geographic region, medical needs, and insurance network was created in [facility].? This list was provided to the RN VIDAL. Giulia Lin, Discharge Planning Asst.
--- NOTE | 2023-09-21 12:42 | DS.PCM_ITS ---
Providers Date of Admission: 09/18/23 Date of Discharge: 09/21/23 Primary Care Physician: Dr. Esperanza Baird MD Reason For Visit: CONFUSION, UTI, HYPONATREMIA Diagnosis Discharge Diagnosis (1) Encephalopathy: Status: Acute Code(s): G93.40 - Encephalopathy, unspecified (2) Hyponatremia: Status: Acute Code(s): E87.1 - Hypo-osmolality and hyponatremia (3) Weakness: Status: Acute Code(s): R53.1 - Weakness (4) UTI (urinary tract infection): Status: Acute Code(s): N39.0 - Urinary tract infection, site not specified (5) Leukocytosis: Status: Acute Code(s): D72.829 - Elevated white blood cell count, unspecified (6) Thrombocytosis: Status: Acute Code(s): D75.839 - Thrombocytosis, unspecified (7) Elevated serum creatinine: Status: Acute Code(s): R79.89 - Other specified abnormal findings of blood chemistry Plan Acute Proteus urinary tract infection -UA is consistent with UTI -Cultures growing Proteus mirabilis sensitive to ceftriaxone -Continue ceftriaxone will likely discharge on Keflex to complete treatment Toxic/metabolic encephalopathy -Resolved -Likely related to acute hyponatremia and acute UTI Elevated serum creatinine -Resolved Leukocytosis -Resolved Thrombocytosis -Suspect related to acute infection however still elevated slightly -A.m. labs pending -Will trend Generalized weakness -Likely related to UTI/hyponatremia -PT/OT following and patient needs ongoing physical therapy and is amenable to home health care discharge which will be arranged for her tomorrow -Case management/social work consultation for discharge needs -Home health care to be followed up on on tomorrow DM-2 -Hemoglobin A1c was performed in June and was less than 7 so patient appears to be well-controlled -Hold home Trulicity -Continue metformin -SSI -Accu-Cheks as ordered Hypertension -Continue home lisinopril -Continue home metoprolol -Continue home hydralazine but increase from 10 mg twice daily to 20 mg 3 times daily for improved blood pressure control -Goal for her is less than 130/80 Hyperlipidemia -Continue home statin Bipolar disorder -Follows with psychiatry -Continue home medications Seizure disorder -Continue home Depakote -Has hyperammonemia related to her Depakote and is on lactulose for this -Patient resistant to her lactulose use due to the diarrhea issue. We did discuss that the goal is to have 2-3 bowel movements daily and decreased her dose from 20 to 10 mg -No concerns about encephalopathy be related to her ammonia as her ammonia level on presentation was only 42 COPD -does not take any home inhaler -If becomes short of breath could consider as needed albuterol History of urinary incontinence -Continue home medication once verified Tobacco abuse -Nicotine replacement therapy if needed -Recommend cessation History of opiate abuse -Patient is followed with Dr. Lin at [address] -Patient received buprenorphine injection on 09/17/2023 which she receives monthly Morbid obesity -BMI is 42.7 -Recommend weight loss -Complicates treatment, prognosis, outcomes DVT prophylaxis -Enoxaparin 40 mg twice daily CODE STATUS -Full code however unverified at this time--> patient was full code at previous hospitalizations Medications at Discharge Home Medications acetaminophen 650 mg tablet,extended release (Tylenol Arthritis Pain) 650 mg PO Q12H PRN pain 01/23/21 Handicap Placard #1 ea 02/07/21 inhalational spacing device (POCKET CHAMBER spacer) #1 ea 06/26/21 buprenorphine 100 mg/0.5 mL solution,exten.rel.subcutaneous syringe 100 mg subcut QMONTH WITHDRAWAL SYMPTOM CONTROL 08/07/21 ascorbic acid (vitamin C) 500 mg capsule 500 mg PO DAILY vitamin 07/08/22 Incentive Spirometer #1 ea 08/05/22 ferrous sulfate 324 mg (65 mg iron) tablet,delayed release 324 mg PO Q OTHER DAY #90 tabs 11/17/22 metoprolol succinate 50 mg tablet,extended release 24 hr 50 mg PO DAILY #90 tabs 01/05/23 mirabegron 50 mg tablet,extended release 24 hr (Myrbetriq) 50 mg PO Q24H diabetic 05/07/23 metoprolol succinate 25 mg tablet,extended release 24 hr 25 mg PO QHS #90 tabs 05/08/23 rosuvastatin 40 mg tablet 40 mg PO DAILY #90 tabs 05/08/23 metformin 500 mg tablet,extended release 24 hr 500 mg PO BID #60 tabs 07/10/23 miconazole nitrate 2 % topical powder (Desenex) 1 applic topical BID #85 grams 07/10/23 blood sugar diagnostic (FreeStyle Lite Strips) #100 ea 07/15/23 blood-glucose meter (FreeStyle Lite Meter kit) #1 ea 07/15/23 lancets 28 gauge (FreeStyle Lancets) #200 ea 07/15/23 divalproex 500 mg tablet,extended release 24 hr 500 mg PO BID #60 tabs 07/21/23 lactulose 10 gram/15 mL oral solution 20 g (30 mL) PO DAILY #946 mL 07/22/23 dulaglutide 0.75 mg/0.5 mL subcutaneous pen injector (Trulicity) 0.75 mg subcut QWEEK diabeties 08/04/23 calcium carbonate 600 mg calcium (1,500 mg) tablet 600 mg PO BID #180 tabs 08/06/23 furosemide 20 mg tablet (Lasix) 20 mg PO DAILY #90 tabs 08/28/23 lisinopril 40 mg tablet 40 mg PO QAM blood pressure #90 tabs 08/28/23 nicotine 21 mg/24 hr daily transdermal patch 1 patch transdermal Q24H #28 ea 09/16/23 cariprazine 3 mg capsule (Vraylar) 3 mg PO Q24H depression 09/19/23 fesoterodine 4 mg tablet,extended release 24 hr 4 mg PO DAILY bladder spasms 09/19/23 lamotrigine 200 mg tablet 200 mg PO QHS depression 09/19/23 meloxicam 15 mg tablet 15 mg PO DAILY pain 09/19/23 cephalexin 500 mg capsule 500 mg PO BID #16 caps 09/21/23 hydralazine 50 mg tablet 50 mg PO TID #90 tabs 09/21/23 Hospital Course Operations None Procedures EKG and - (Chest x-ray) Summary of Care Provided Minutes Spent on Discharge: 38 Hospital Course: Mrs. Valentin is a 73-year-old female who presents emergency department last evening with acute confusion. Family was not at the bedside to assist with history however they were with her earlier on the day of admission and noted that she was more confused and weak. They brought her to the emergency department where her sodium was found to be 123 and her urinalysis was consistent with UTI. Family did mention to the emergency department room physician that she does get confused when she gets urinary tract infections. She follows with Dr. Lin from addiction medicine over at [address] and got a buprenorphine and injection on 09/17/2023 which she does receive monthly. Patient/family reported this typically does not make her confused. Vital signs were stable on presentation. She was admitted to the medical floor and given IV fluids to assess if this would help correct her sodium and started on ceftriaxone for her urinary tract infection. Cultures were sent prior to antibiotics being initiated. She was maintained on her chronic home medications. Her sodium resolved with hydration and I do suspect she had hypovolemic hyponatremia due to decreased p.o. intake. Her urine culture was positive for Proteus mirabilis which was sensitive to ceftriaxone. She was maintained on ceftriaxone during her hospital course at 1 g daily and then transition to oral Keflex for another 8 days to complete a 10-day course at the time of discharge. Her leukocytosis overall improved. She was noted to have thrombocytopenia without any abnormality in her hemoglobin. We do suspect that this is likely related to acute infection and an acute phase reactant. I would recommend a repeat CBC be done in another week to 10 days to reassess that this normalizes. She had some acute kidney injury on presentation which resolved with IV fluids and maintained stable with p.o. intake at the time of discharge. She was seen by physical and Occupational Therapy and they felt she could go home and have home health care which she was agreeable to at the time of discharge. This was set up for her by case management prior to discharge. Her blood pressure was markedly elevated throughout her hospital course. We did increase her hydralazine to 50 mg 3 times daily and asked her to follow-up with her primary care physician within the next week for blood pressure check. New prescriptions for her hydralazine as well as Keflex were sent to her local pharmacy at the time of discharge. She was discharged home in stable condition on 09/21/2023. Discharge diagnoses: Acute Proteus UTI Toxic/metabolic encephalopathy-resolved Elevated serum creatinine-resolved Leukocytosis-resolving Thrombocytosis Generalized weakness DM-2 Hypertension uncontrolled hyperlipidemia Bipolar disorder Seizure disorder COPD History of urinary continence History of tobacco abuse History of opiate abuse Morbid obesity Physical Exam Const alert, oriented x3, no apparent distress and well nourished Constitutional Narrative: Morbidly obese, older, white female, sitting up in a chair at the bedside, appears older than stated age, appears comfortable nontoxic, nursing at bedside General Appearance: cooperative, comfortable, well kempt and well developed Orientation / Consciousness: awake, oriented to person, oriented to place and oriented to time Exam Limitations: no limitations Nutritional Appearance: morbidly obese HEENT normocephalic, head/scalp atraumatic, hearing grossly normal bilaterally and moist oral mucous membranes HEENT Narrative: Dentition is poor, Mallampati is 2-3, no thrush Eyes PERRL, EOMs intact bilaterally and conjunctivae normal Eyes Narrative: No scleral icterus Neck no lymphadenopathy Neck Narrative: Trachea midline, no thyroid enlargement Resp normal respiratory effort, no retractions, no use of accessory muscles and clear to auscultation bilaterally Auscultation: Negative for rales, rhonchi or wheezes Cardio regular rate, regular rhythm, S1 normal heart sound, S2 normal heart sound, no murmurs, no rub, no gallops and no clicks GI normal to inspection, nondistended, normoactive bowel sounds, soft to palpation and non-tender Extremity no clubbing, cyanosis or edema Extremity Narrative: Pedal pulses are 2+ Skin no rashes or lesions noted, no wounds, skin turgor normal and no jaundice Neuro oriented x3, moves all extremities and no focal motor deficits Neuro Narrative: Mild generalized weakness noted but no focal deficits Sensorium / Orientation: awake, alert, oriented to person, oriented to place and oriented to time Speech: speech normal Psych affect normal Psych Narrative: Eye contact is good and patient interacts appropriately Weight / BMI Weight Weight: 98.6 kg Body Mass Index (BMI) 42.7 ABG / Lab / Microbiology Data 09/21/23 05:36 09/21/23 05:36 Laboratory: Laboratory Results - last 24 hr 09/20/23 16:17: POC Glucose 94 09/20/23 21:08: POC Glucose 96 09/21/23 04:28: POC Glucose 107 H 09/21/23 05:36: WBC 11.1 H, RBC 4.52, Hgb 14.1, Hct 42.7, MCV 94.5, MCH 31.2, MCHC 33.0, RDW Std Deviation 49.5 H, RDW Coeff of Tami 14.2, Plt Count 544 H, MPV 9.3, Immature Gran % (Auto) 3.800 H, Neut % (Auto) 67.6, Lymph % (Auto) 19.0, [place] % (Auto) 7.1, Eos % (Auto) 1.8, Baso % (Auto) 0.7, Absolute Neuts (auto) 7.5, Absolute Lymphs (auto) 2.11, Nucleated RBC % 0, Sodium 129 L, Potassium 4.1, Chloride 96 L, Carbon Dioxide 26.0, Anion Gap 7, BUN 8, Creatinine 0.78, Estim Creat Clear Calc 80.32, Est GFR (MDRD) Af Amer 93, Est GFR (MDRD) Non-Af 77, BUN/Creatinine Ratio 10.2, Glucose 126 H, Calcium 9.4 Microbiology: Microbiology 09/18/23 18:20 Urine, Clean Catch Urine Culture - Final Proteus mirabilis 09/18/23 18:20 Nasal Secretion SARS-CoV-2 & FLU Antigen (Rapid) - Final D/C Instructions Discharge Diet: Low fat / Low cholesterol Discharge Activity: Return to Normal Activity Meaningful Use Info Meaningful Use Diagnoses (Choose all that apply): None applicable Discharge Plan Admission Admit Date/Time: 09/18/23 20:02 Primary Reason for Your Visit: Mental status change Attending Provider: Mehreen Denney Primary Care Provider: Esperanza Baird Consulting Providers: Navjot Hasasn Discharge Orders/Prescriptions Prescriptions: New hydralazine 50 mg tablet 50 mg PO TID Qty: 90 1RF cephalexin 500 mg capsule 500 mg PO BID Qty: 16 0RF Continued acetaminophen [Tylenol Arthritis Pain] 650 mg tablet extended release 650 mg PO Q12H PRN (Reason: pain) buprenorphine 100 mg/0.5 mL solution, extended rel syringe 100 mg subcut QMONTH ascorbic acid (vitamin C) 500 mg capsule 500 mg PO DAILY (DME) Incentive Spirometer See Rx Instructions .Route .MEDSUPPLY Qty: 1 0RF Rx Instructions: As directed ferrous sulfate 324 mg (65 mg iron) tablet,delayed release (DR/EC) 324 mg PO Q OTHER DAY Qty: 90 2RF divalproex 500 mg tablet extended release 24 hr 500 mg PO BID Qty: 60 7RF lactulose 10 gram/15 mL solution 20 g PO DAILY Qty: 946 7RF Myrbetriq 50 mg tablet extended release 24 hr 50 mg PO Q24H metformin 500 mg tablet extended release 24 hr 500 mg PO BID Qty: 60 3RF Trulicity 0.75 mg/0.5 mL pen injector 0.75 mg subcut QWEEK fesoterodine 4 mg tablet extended release 24 hr 4 mg PO DAILY meloxicam 15 mg tablet 15 mg PO DAILY lamotrigine 200 mg tablet 200 mg PO QHS Rx Instructions: TAKE ONE TABLET BY MOUTH AT BEDTIME Vraylar 3 mg capsule 3 mg PO Q24H Rx Instructions: TAKE ONE CAPSULE BY MOUTH EVERY DAY (DME) Handicap Placard See Rx Instructions .ROUTE .MEDSUPPLY Qty: 1 0RF Rx Instructions: As directed, length of time 5 years (DME) POCKET CHAMBER Spacer See Rx Instructions .ROUTE .MEDSUPPLY Qty: 1 0RF Rx Instructions: As directed metoprolol succinate 50 mg tablet extended release 24 hr 50 mg PO DAILY Qty: 90 3RF Rx Instructions: Take with 25 mg for a total daily dose of 75 mg metoprolol succinate 25 mg tablet extended release 24 hr 25 mg PO QHS Qty: 90 2RF rosuvastatin 40 mg tablet 40 mg PO DAILY Qty: 90 2RF miconazole nitrate [Desenex] 2 % powder 1 applic topical BID Qty: 85 4RF (DME) FreeStyle Lite Strips Strip See Rx Instructions .MEDSUPPLY Qty: 100 3RF Rx Instructions: check blood glucose daily for type 2 DM (DME) blood-glucose meter [FreeStyle Lite Meter] Kit See Rx Instructions .MEDSUPPLY Qty: 1 0RF Rx Instructions: As directed, check blood glucose daily for type 2 DM (DME) lancets [FreeStyle Lancets] 28 gauge misc See Rx Instructions .MEDSUPPLY Qty: 200 3RF Rx Instructions: check blood glucose daily for type 2 DM calcium carbonate 600 mg calcium (1,500 mg) tablet 600 mg PO BID Qty: 180 3RF furosemide [Lasix] 20 mg tablet 20 mg PO DAILY Qty: 90 2RF lisinopril 40 mg tablet 40 mg PO QAM Qty: 90 2RF nicotine 21 mg/24 hr patch 24 hour 1 patch transdermal Q24H Qty: 28 2RF Hold Instructions: Pt has been DC'd Discontinued hydralazine 10 mg tablet 10 mg PO BID Qty: 180 2RF Referrals / Follow Up: Esperanza Baird MD [Primary Care Provider] - Within 1 Week (BP check) Disposition Disposition (needs filled in before D/C Order can be placed): Home Health Service Charges/Coding Visit Charges Inpatient E&M: 35241 Disch Hosp >30min
--- NOTE | 2023-09-21 13:19 | PHA.DC_ITS ---
Pharmacy [facility] Pharmacy Service has performed discharge medication reconciliation and counseling for this patient. The patient's discharge medication list was reviewed for discrepancies and discrepancies were resolved. The patient was counseled on the following discharge medications and changes in medications for homegoing were reviewed. The Reason for Use, instructions for use, and potential side effects were reviewed for all new medications. The patient's questions regarding all of their medications were answered. 1. Cephalexin 500 mg PO BID x 8 days 2. Hydralazine 50 mg PO TID (dose increase) The patient was able to verbally demonstrate an understanding of their discharge medications. Medications at Discharge Home Medications acetaminophen 650 mg tablet,extended release (Tylenol Arthritis Pain) 650 mg PO Q12H PRN pain 01/23/21 Handicap Placard #1 ea 02/07/21 inhalational spacing device (POCKET CHAMBER spacer) #1 ea 06/26/21 buprenorphine 100 mg/0.5 mL solution,exten.rel.subcutaneous syringe 100 mg subcut QMONTH WITHDRAWAL SYMPTOM CONTROL 08/07/21 ascorbic acid (vitamin C) 500 mg capsule 500 mg PO DAILY vitamin 07/08/22 Incentive Spirometer #1 ea 08/05/22 ferrous sulfate 324 mg (65 mg iron) tablet,delayed release 324 mg PO Q OTHER DAY #90 tabs 11/17/22 metoprolol succinate 50 mg tablet,extended release 24 hr 50 mg PO DAILY #90 tabs 01/05/23 mirabegron 50 mg tablet,extended release 24 hr (Myrbetriq) 50 mg PO Q24H diabetic 05/07/23 metoprolol succinate 25 mg tablet,extended release 24 hr 25 mg PO QHS #90 tabs 05/08/23 rosuvastatin 40 mg tablet 40 mg PO DAILY #90 tabs 05/08/23 metformin 500 mg tablet,extended release 24 hr 500 mg PO BID #60 tabs 07/10/23 miconazole nitrate 2 % topical powder (Desenex) 1 applic topical BID #85 grams 07/10/23 blood sugar diagnostic (FreeStyle Lite Strips) #100 ea 07/15/23 blood-glucose meter (FreeStyle Lite Meter kit) #1 ea 07/15/23 lancets 28 gauge (FreeStyle Lancets) #200 ea 07/15/23 divalproex 500 mg tablet,extended release 24 hr 500 mg PO BID #60 tabs 07/21/23 lactulose 10 gram/15 mL oral solution 20 g (30 mL) PO DAILY #946 mL 07/22/23 dulaglutide 0.75 mg/0.5 mL subcutaneous pen injector (Trulicity) 0.75 mg subcut QWEEK diabeties 08/04/23 calcium carbonate 600 mg calcium (1,500 mg) tablet 600 mg PO BID #180 tabs 08/06/23 furosemide 20 mg tablet (Lasix) 20 mg PO DAILY #90 tabs 08/28/23 lisinopril 40 mg tablet 40 mg PO QAM blood pressure #90 tabs 08/28/23 nicotine 21 mg/24 hr daily transdermal patch 1 patch transdermal Q24H #28 ea 09/16/23 cariprazine 3 mg capsule (Vraylar) 3 mg PO Q24H depression 09/19/23 fesoterodine 4 mg tablet,extended release 24 hr 4 mg PO DAILY bladder spasms 09/19/23 lamotrigine 200 mg tablet 200 mg PO QHS depression 09/19/23 meloxicam 15 mg tablet 15 mg PO DAILY pain 09/19/23 cephalexin 500 mg capsule 500 mg PO BID #16 caps 09/21/23 hydralazine 50 mg tablet 50 mg PO TID #90 tabs 09/21/23
[2023-09-21 16:35] LABS: Bedside Glucose 113 mg/dL (74-106)
== END 2023-09-21 15:10 | disposition home health service (06) | DRG 640 ==
LOC: ED 20:00 → MS3 20:30
PROVIDERS: Emergency Provider Emergency Medicine; PCP Internal Medicine; Visit Provider Internal Medicine
DX: E87.1 Hypo-osmolality and hyponatremia (principal); G92.8 Other toxic encephalopathy; N39.0 Urinary tract infection, site not specified; Z68.41 Body mass index [BMI] 40.0-44.9, adult; E11.9 Type 2 diabetes mellitus without complications; E66.01 Morbid (severe) obesity due to excess calories; E78.00 Pure hypercholesterolemia, unspecified; B96.4 Proteus (mirabilis) (morganii) as the cause of diseases classified elsewhere; G40.909 Epilepsy, unspecified, not intractable, without status epilepticus; J44.9 Chronic obstructive pulmonary disease, unspecified; F31.9 Bipolar disorder, unspecified; F11.11 Opioid abuse, in remission; I10 Essential (primary) hypertension; F17.210 Nicotine dependence, cigarettes, uncomplicated; E86.0 Dehydration; Z79.84 Long term (current) use of oral hypoglycemic drugs; Z79.899 Other long term (current) drug therapy; Z11.52 Encounter for screening for COVID-19
CPT/HCPCS: 36415; 71045; 80048; 80053; 80076; 80164; 81001; 82140; 82533; 82962; 83036; 83605; 83690; 83735; 84100; 84443; 84484; 85025; 87077; 87086; 87088; 87186; 87428; 93005; 97162; 97165; 97530; 97802; 99285; 99406; J7030; J7040; A4216

== ENCOUNTER → 2023-09-25 | Outpatient (CLI) | payer MEDICARE, MEDICAID, SELFPAY ==
[2023-09-25 14:53] LABS: Bacteria 0 SEEN /hpf (None Seen); Mucous, Urine 0 SEEN /hpf (<or=2+); Red Blood Cells-Urine 0 SEEN /hpf (0-5); White Blood Cells 0 SEEN /hpf (0-5)
[2023-09-25 16:53] LABS: Absolute Lymphocyte Count 2.04 X10^3/uL (0.83-4.51); Absolute Neutrophil Count 13.6 X10^3/uL (2.0-7.7); Basophil# 0.11 X10^3/uL; Basophil% 0.6 % (0-1); Eosinophil# 0.04 X10^3/uL; Eosinophils% 0.2 % (0-5); Hematocrit 41.7 % (37-47); Hemoglobin 13.8 g/dL (12.0-15.0); Lymphocyte # 2.04 X10^3/ul (0.83-4.51); Lymphocyte % 11.7 % (19-41); Mean Corp Hgb Conc 33.1 g/dL (32-36); Mean Corpuscular Hgb 30.2 pg (27.0-32.0); Mean Corpuscular Volume 91.2 fL (81-99); Mean Platelet Vol. 10.5 fl (6.2-12.0); Monocyte# 1.13 X10^3/uL; Monocyte% 6.5 % (0-10); NRBC Flagged by Analyzer 0 % (0-5); Neutrophil # 13.61 X10^3/uL (2.7-7.7); Neutrophil % 77.9 % (47-70); POSITIVE COUNT YES; Platelet Count 514 K/mm3 (150-450); Red Blood Count 4.57 M/mm3 (4.2-5.4); White Blood Count 17.5 K/mm3 (4.4-11.0)
[2023-09-25 17:00] LABS: Differential Indicated SCAN CRITERIA MET
[2023-09-25 17:13] LABS: AST(SGOT) 31 U/L (15-37); Alanine Aminotransfer ALT/SGPT 43 U/L (13-56); Albumin, Serum 3.6 g/dL (3.2-5.0); Alkaline Phosphatase 88 U/L (45-117); Anion Gap 9 (5-15); BUN 10 mg/dL (7-18); BUN/Creat Ratio 8.8 RATIO (10-20); Chloride 89 mmol/L (98-107); Creatinine, Serum 1.14 mg/dL (0.55-1.02); EST Glomerular Filtration Rate 50 mL/min (>60); Est Glom Filt Rate - Afr Amer 60 mL/min (>60); Globulin 3.6 g/dL (2.2-4.2); Glucose 106 mg/dL (74-106); Potassium 4.2 mmol/L (3.5-5.1); Protein, Total 7.2 g/dL (6.4-8.2); Sodium Level 124 mmol/L (136-145)
[2023-09-25 17:16] LABS: Valproic Acid (Depakene) Level 79 ug/mL (50-100)
[2023-09-25 17:18] LABS: Color, Urine Yellow (Yellow); Glucose, Dipstick Normal (Normal); Ketone-Dipstick Negative (Negative); Leukocyte Esterase-Dipstick Negative /ul (Negative); Nitrite-Dipstick Negative (Negative); Occult Blood-Urine 50 /ul (Negative); Protein-Dipstick 15 mg/dl (Negative); Urine Bilirubin Dipstick Negative (Negative); Urine Clarity Clear (Clear); Urine Urobilinogen Normal (Normal); Urine pH 6.5 (5.0 - 8.0)
[2023-09-25 17:19] LABS: Differential Comment SCANNED
[2023-09-25 17:29] LABS: Squamous Epithelial Cells - UA 0-5 SEEN /hpf (5-10)
[2023-09-28 17:07] LABS: Lamotrigine (Lamictal) Level 11.2 ug/mL (2.0-20.0)
== END | disposition home or self-care (01) ==
LOC: BIMLAB 14:52
PROVIDERS: Psychiatry & Neurology Neurology; PCP Internal Medicine; Referring Provider Internal Medicine; Visit Provider Internal Medicine
DX: G93.40 Encephalopathy, unspecified (principal); F31.9 Bipolar disorder, unspecified; G40.909 Epilepsy, unspecified, not intractable, without status epilepticus
CPT/HCPCS: 80053; 80164; 81001; 82140; 82542; 85025

== ENCOUNTER 2023-09-27 05:42 | Inpatient (IN) | payer MEDICARE, MEDICAID, SELFPAY ==
[2023-09-27] VITALS (14 sets, daily range): BP systolic 100–133; BP diastolic 58–78; PULSE 72–98; RESP 11–18; TEMP 35.9–36.7; O2SAT 91–100; BMI 43.1; BMI 41.9
--- NOTE | 2023-09-27 06:03 | CT_ITS ---
STUDY: CT BRAIN WITHOUT CONTRAST REASON FOR EXAM: Female, 73 years old. Injury RADIATION DOSAGE (If Supplied By Facility): CTDIvol = ( 44.99 ) mGy, DLP = ( 812.98 ) mGycm TECHNIQUE: Transaxial CT imaging of the brain was performed without administration of intravenous contrast material. Individualized dose optimization techniques were used for this CT. COMPARISON: Prior study dated: 11/29/20 FINDINGS: PARENCHYMA: There is no acute bleed or infarct. There are stable chronic ischemic and atrophic changes. VENTRICLES: There is no hydrocephalus. MASTOID AIR CELLS AND PARANASAL SINUSES: The visualized paranasal sinuses are clear. The mastoid air cells are clear. BONES: There is no skull fracture. SOFT TISSUES: The visualized soft tissues are within normal limits. CT/Brain/Head without Contrast IMPRESSION: Stable chronic ischemic and atrophic changes. No acute intracranial abnormality. Electronically Signed: Manjit Meza MD at 8:06 EST ,
--- NOTE | 2023-09-27 06:03 | CT_ITS ---
STUDY: CT CERVICAL SPINE WITHOUT CONTRAST REASON FOR EXAM: Female, 73 years old. Injury. RADIATION DOSAGE (If Supplied By Facility): CTDIvol = ( 28 ) mGy, DLP = ( 1111 ) mGycm TECHNIQUE: High resolution transaxial imaging was performed without contrast material. Sagittal and coronal images were reconstructed. Individualized dose optimization techniques were used for this CT. COMPARISON: No relevant prior comparison study available FINDINGS: BONES: There is no fracture in the cervical spine. The dens is intact. The vertebral body heights are maintained. ALIGNMENT: There is no dislocation. There is straightening of the normal cervical lordosis which may be due to paraspinal muscle spasm or may be positional in nature. DISC SPACES: There are moderate degenerative changes. LUNG APICES: The visualized lung apices are clear. SOFT TISSUES: The visualized paraspinal soft tissues are within normal limits. CT/Spine Cervical without Contras IMPRESSION: No fracture or dislocation in the cervical spine. Straightening of the normal cervical lordosis which may be due to paraspinal muscle spasm or may be positional in nature. Moderate degenerative change. Electronically Signed: Manjit Meza MD at 8:17 EST ,
--- NOTE | 2023-09-27 06:04 | EKG12_ITS ---
Test Reason : CONFUSION Blood Pressure : / mmHG Vent. Rate : 092 BPM Atrial Rate : 092 BPM P-R Int : 166 ms QRS Dur : 090 ms QT Int : 370 ms P-R-T Axes : 058 061 052 degrees QTc Int : 457 ms Normal sinus rhythm Normal ECG Confirmed by ROBINA SEALS, SPEEDY ([id number]), film editor ATUL BANEGAS ([id number]) on 09/29/2023 6:23:43 AM Referred By: Confirmed By:CECILE QUARLES MD
[2023-09-27 06:34] LABS: Absolute Neutrophil Count 17.1 X10^3/uL (2.0-7.7); Basophil# 0.08 X10^3/uL; Basophil% 0.4 % (0-1); Eosinophil# 0.03 X10^3/uL; Eosinophils% 0.1 % (0-5); Hematocrit 38.4 % (37-47); Hemoglobin 13.4 g/dL (12.0-15.0); Lymphocyte % 7.2 % (19-41); Mean Corp Hgb Conc 34.9 g/dL (32-36); Mean Corpuscular Hgb 30.7 pg (27.0-32.0); Mean Corpuscular Volume 87.9 fL (81-99); Mean Platelet Vol. 8.6 fl (6.2-12.0); Monocyte# 1.76 X10^3/uL; Monocyte% 8.5 % (0-10); NRBC Flagged by Analyzer 0 % (0-5); Neutrophil # 17.06 X10^3/uL (2.7-7.7); Neutrophil % 82.3 % (47-70); POSITIVE DIFFERENTIAL YES; Platelet Count 559 K/mm3 (150-450); RBC Distribution Width CV 13.8 % (11.6-14.6); RBC Distribution Width SD 44.6 fl (35.1-43.9); Red Blood Count 4.37 M/mm3 (4.2-5.4); White Blood Count 20.7 K/mm3 (4.4-11.0)
[2023-09-27 06:37] LABS: Differential Indicated SCAN CRITERIA MET
[2023-09-27 06:41] LABS: Prothrombin Time (Protime)PT. 13.2 SECONDS (11.7-14.9)
[2023-09-27 06:42] LABS: Partial Thromboplast Time 30.4 Seconds (24.1-36.2)
[2023-09-27 06:47] LABS: Mucous, Urine 0 SEEN /hpf (<or=2+)
[2023-09-27 06:49] LABS: Color, Urine Yellow (Yellow); Glucose, Dipstick Normal (Normal); Ketone-Dipstick 5 mg/dl (Negative); Leukocyte Esterase-Dipstick 25 /ul (Negative); Nitrite-Dipstick Negative (Negative); Occult Blood-Urine 10 /ul (Negative); Protein-Dipstick 15 mg/dl (Negative); Urine Bilirubin Dipstick Negative (Negative); Urine Clarity Sl. Cloudy (Clear); Urine Urobilinogen Normal (Normal)
[2023-09-27 06:52] LABS: Alcohol, Blood (Medical)-Serum < 3.0 mg/dL
[2023-09-27 06:53] LABS: Lactic Acid 1.1 mmol/L (0.4-1.9)
[2023-09-27 06:59] LABS: Procalcitonin 0.09 ng/mL (0.00-0.09)
[2023-09-27 06:59] LABS: Bacteria RARE /hpf (None Seen); Red Blood Cells-Urine 0-5 SEEN /hpf (0-5); Squamous Epithelial Cells - UA 0-5 SEEN /hpf (5-10); White Blood Cells 0-5 SEEN /hpf (0-5)
[2023-09-27 07:07] LABS: Amphetamine Urine VISTA NEGATIVE (<1000 ng/mL); Barbiturate Urine VISTA NEGATIVE (< 200 ng/mL); Benzodiazepine Urine VISTA NEGATIVE (< 200 ng/mL); Cocaine Urine VISTA NEGATIVE (< 300 ng/mL); Ecstacy Urine VISTA NEGATIVE (< 500 ng/mL); Methadone Urine VISTA NEGATIVE (< 300 ng/mL); PCP Urine VISTA NEGATIVE (< 25 ng/mL); THC Urine VISTA NEGATIVE (< 50 ng/mL); Vista UDS pH Range 5
[2023-09-27 07:07] LABS: AST(SGOT) 27 U/L (15-37); Alanine Aminotransfer ALT/SGPT 34 U/L (13-56); Albumin, Serum 3.4 g/dL (3.2-5.0); Alkaline Phosphatase 91 U/L (45-117); Anion Gap 9 (5-15); BUN 15 mg/dL (7-18); BUN/Creat Ratio 10.1 RATIO (10-20); Bilirubin, Direct 0.19 mg/dL (0.00-0.30); Calcium,Total 9.1 mg/dL (8.5-10.1); Chloride 82 mmol/L (98-107); Creatinine, Serum 1.48 mg/dL (0.55-1.02); EST Glomerular Filtration Rate 37 mL/min (>60); Est Glom Filt Rate - Afr Amer 45 mL/min (>60); Estimated Creatinine Clearance 25.04 ml/min; Globulin 3.3 g/dL (2.2-4.2); Glucose 133 mg/dL (74-106); Potassium 3.8 mmol/L (3.5-5.1); Protein, Total 6.7 g/dL (6.4-8.2); Sodium Level 119 mmol/L (136-145); Thyroid Stim Hormone (TSH) 0.62 uIU/mL (0.358-3.74)
--- NOTE | 2023-09-27 07:21 | EX.ED.DYSGE1 ---
HPI History of Present Illness Chief Complaint: Confusion Informant: patient, family and EMS Narrative Narrative: Patient is a 73-year-old female who still lives at home alone with past medical history of of type 2 diabetes urinary tract infection hyponatremia and hyperammonemia. She was recently admitted to the hospital in early September secondary to UTI and confusion. Reportedly she was doing better and discharged home on antibiotics. EMS was called for a lift assist status post fall this morning/evening. When they arrived the patient seemed obtunded and secondary to this she was brought to the hospital for evaluation. Upon arrival the patient is slow to respond and slightly confused but states that she simply fell because she lost her balance and denies any syncope chest pain fevers or chills [facility] Medical History Abdominal pain Actinic keratoses Anemia Arthritis Atypical chest pain Back problem Basal cell carcinoma of right forehead Basal cell carcinoma of right medial cheek Basal cell carcinoma of upper lip Benign neoplasm of skin of cheek Bilateral lower extremity edema Bladder disease Cancer COPD (chronic obstructive pulmonary disease) Cutaneous candidiasis DDD (degenerative disc disease) Debility Dermatitis Diabetes Dietary restriction Dissociative identity disorder Dizziness Drug abuse Flu vaccine need Frequent falls Gastric reflux Hemangioma of face Hepatitis High cholesterol History of edema History of stress test History of UTI Hypertension Injury of back Injury of head and neck Intertrigo Intradermal nevus Kidney disease Kidney failure Left ankle pain Left wrist fracture Loose, teeth Low iron Manic episode Morbid obesity Multiple personalities Neoplasm of skin of eyelid Neoplasm of skin of nose Neurofibroma of neck Obesity (BMI 30-39.9) Osteoarthritis Osteoporosis Panic attacks Prediabetes Primary osteoarthritis, left shoulder Rib pain on right side Seizures Shortness of breath on exertion Substance abuse Tumors Type 2 diabetes mellitus Urinary incontinence Venous insufficiency of both lower extremities Walker as ambulation aid Wears glasses Weight gain Home Medications acetaminophen 650 mg tablet,extended release (Tylenol Arthritis Pain) 650 mg PO Q12H PRN pain 01/23/21 [History Last Taken Unknown] Handicap Placard #1 ea 02/07/21 [Rx Last Taken Unknown] inhalational spacing device (POCKET CHAMBER spacer) #1 ea 06/26/21 [Rx Last Taken Unknown] buprenorphine 100 mg/0.5 mL solution,exten.rel.subcutaneous syringe 100 mg subcut QMONTH WITHDRAWAL SYMPTOM CONTROL 08/07/21 [History Last Taken 09/17/23] ascorbic acid (vitamin C) 500 mg capsule 500 mg PO DAILY vitamin 07/08/22 [History Last Taken Unknown] Incentive Spirometer #1 ea 08/05/22 [Rx Last Taken Unknown] ferrous sulfate 324 mg (65 mg iron) tablet,delayed release 324 mg PO Q OTHER DAY #90 tabs 11/17/22 [Rx Last Taken Unknown] metoprolol succinate 50 mg tablet,extended release 24 hr 50 mg PO DAILY #90 tabs 01/05/23 [Rx Last Taken Unknown] mirabegron 50 mg tablet,extended release 24 hr (Myrbetriq) 50 mg PO Q24H diabetic 05/07/23 [History Last Taken Unknown] metoprolol succinate 25 mg tablet,extended release 24 hr 25 mg PO QHS #90 tabs 05/08/23 [Rx Last Taken Unknown] rosuvastatin 40 mg tablet 40 mg PO DAILY #90 tabs 05/08/23 [Rx Last Taken Unknown] miconazole nitrate 2 % topical powder (Desenex) 1 applic topical BID #85 grams 07/10/23 [Rx Last Taken Unknown] blood sugar diagnostic (FreeStyle Lite Strips) #100 ea 07/15/23 [Rx Last Taken Unknown] blood-glucose meter (FreeStyle Lite Meter kit) #1 ea 07/15/23 [Rx Last Taken Unknown] lancets 28 gauge (FreeStyle Lancets) #200 ea 07/15/23 [Rx Last Taken Unknown] divalproex 500 mg tablet,extended release 24 hr 500 mg PO BID #60 tabs 07/21/23 [Rx Last Taken Unknown] lactulose 10 gram/15 mL oral solution 20 g (30 mL) PO DAILY #946 mL 07/22/23 [Rx Last Taken Unknown] dulaglutide 0.75 mg/0.5 mL subcutaneous pen injector (Trulicity) 0.75 mg subcut QWEEK diabeties 08/04/23 [History Last Taken Unknown] calcium carbonate 600 mg calcium (1,500 mg) tablet 600 mg PO BID #180 tabs 08/06/23 [Rx Last Taken Unknown] furosemide 20 mg tablet (Lasix) 20 mg PO DAILY #90 tabs 08/28/23 [Rx Last Taken Unknown] lisinopril 40 mg tablet 40 mg PO QAM blood pressure #90 tabs 08/28/23 [Rx Last Taken Unknown] nicotine 21 mg/24 hr daily transdermal patch 1 patch transdermal Q24H #28 ea 09/16/23 [Rx Last Taken Unknown] cariprazine 3 mg capsule (Vraylar) 3 mg PO Q24H depression 09/19/23 [History Last Taken Unknown] fesoterodine 4 mg tablet,extended release 24 hr 4 mg PO DAILY bladder spasms 09/19/23 [History Last Taken Unknown] lamotrigine 200 mg tablet 200 mg PO QHS depression 09/19/23 [History Last Taken Unknown] meloxicam 15 mg tablet 15 mg PO DAILY pain 09/19/23 [History Last Taken Unknown] cephalexin 500 mg capsule 500 mg PO BID #16 caps 09/21/23 [Rx Last Taken Unknown] hydralazine 50 mg tablet 50 mg PO TID #90 tabs 09/21/23 [Rx Last Taken Unknown] denosumab 60 mg/mL subcutaneous syringe (Prolia) 60 mg subcut [id number] #1 mL 09/25/23 [Rx Last Taken Unknown] metformin 500 mg tablet,extended release 24 hr 500 mg PO BID #60 tabs 09/25/23 [Rx Last Taken Unknown] Allergy/AdvReac Type Severity Reaction Status Date / Time iloperidone [From Fanapt] Allergy Severe Other Verified 09/27/23 05:47 paliperidone [From Invega] Allergy Severe increased Verified 09/27/23 05:47 psychiatric symptoms lurasidone [From Latuda] Allergy Other Verified 09/27/23 05:47 trazodone AdvReac Severe Other Verified 09/27/23 05:47 theophylline AdvReac Other Verified 09/27/23 05:47 Family History Brother Colon cancer Lung cancer Aunt Obesity Sister Obesity Mother Rheumatoid arthritis Father Alzheimer disease Brother Alzheimer disease Surgical History H/O hernia repair H/O: hysterectomy History of 3 sections History of basal cell carcinoma excision History of History of carpal tunnel surgery History of cholecystectomy History of colonoscopy History of endoscopy History of excision of lesion History of hernia repair Social History Smoking Status: Current every day smoker tobacco type: cigarettes Tobacco: How many years used: 20 how long ago did patient quit smoking: second hand exposure: No alcohol intake: never substance use type: former substance user Date of last use: Cocaine what type of physical activity do you participate in: none vince/episcopalian: Moravian seatbelt use: always ROS ROS ED Constitutional Constitutional ED: Denies chills or fever(s) Eyes Eyes: Denies change in vision ENT ENT ED: Denies sore throat Cardiovascular Cardiovascular: Denies chest pain, palpitations or racing heartbeat Respiratory/Chest Respiratory/Chest: Denies cough or dyspnea Gastrointestinal Gastrointestinal: Denies abdominal pain, diarrhea, nausea or vomiting Genitourinary Genitourinary ED: Denies dysuria Musculoskeletal Musculoskeletal: Denies back pain or neck pain Integumentary Reports Abrasions; Denies rash Neurologic Neurologic: Reports headache(s) and weakness; Denies paresthesias Hematologic/Lymphatic Hematologic/Lymphatic: Denies easy bleeding or easy bruising EXAM Physical Exam Const Vital Signs: 09/27/23 05:43 09/27/23 07:10 Temperature 96.6 F L Temperature Source Temporal Pulse Rate 98 83 Respiratory Rate 16 16 Blood Pressure 125/78 H 124/71 H Blood Pressure Mean 93 88 Pulse Ox 94 96 Oxygen Delivery Method Room Air Room Air Positive well nourished, well developed and obese General Appearance ED: well developed Nutritional Appearance: obese HEENT HEENT Narrative: Patient has a 2 x 2 hematoma to the right sided upper occipital portion of the scalp consistent with reported fall. However no signs of depressed or basilar skull fracture Eyes PERRL and EOMs intact bilaterally General Eye ED: Negative for scleral icterus Neck supple Neck Narrative: No bony deformity or step-off of the cervical spine no midline pain on palpation No nuchal rigidity or meningeal signs noted Chest Wall palpation of chest normal Chest Narrative: No bony deformity or crepitance Resp normal respiratory effort and clear to auscultation bilaterally Resp Narrative: Breath sounds are diminished throughout but overall clear to auscultation without signs of respiratory distress Cardio regular rate and regular rhythm Rate: other Other Details: Heart is regular rate and rhythm without murmurs rubs or gallops Radial and carotid pulses are equal and symmetric GI non-distended GI Narrative: Abdomen is obese soft and nondistended with hypoactive bowel sounds. Patient has bruising across her lower abdomen consistent with recent hospitalization and Lovenox injections. There is pain palpation at the site of ecchymosis but otherwise abdomen is nontender. No voluntary guarding or rigidity No pulsatile mass Auscultation: hypoactive bowel sounds Palpation: soft Back/Spine Back/Spine Narrative: No bony deformity or step-off of the thoracic or lumbar spine no midline pain with palpation Extremity Extremity Narrative: Pelvis is stable there is no shortening or external rotation of either lower extremity Patient has superficial abrasions to the right elbow without bony deformity or joint effusion and full active range of motion There is +3-4 pitting edema to the bilateral lower extremities is equal and symmetric with negative Homans' sign laterally Neuro CN's II-XII intact bilaterally Neuro Narrative: Patient is obtunded but will awake to voice with a GCS of 13. There is no focal neurologic deficit such as facial droop or unilateral extremity weakness and patient knows where she is at and the year but is unsure of the month. She is also slightly slow to respond correlating with mild confusion however there is no obvious focal deficit or acute CVA present Sensorium / Orientation: lethargic Motor Exam: general weakness Psych Psych Narrative: Patient is lethargic with flat affect Skin Skin Narrative: Hematoma to the occipital portion of the scalp with superficial abrasion to the right elbow as documented above General Skin Exam: Negative for jaundice MDM MDM MDM Narrative Medical decision making narrative: Patient presented to the ER with stable vitals and is protecting her airway so therefore there is no need for emergent intubation. With report of fall as well as confusion there is concern for traumatic brain injury versus subarachnoid versus epidural or subdural hemorrhage. There is also concern that patient may have developed hyperammonemia or pneumonia or urosepsis. There is also concern for worsening hyponatremia or myxedema coma. Secondary to this blood work was obtained with blood culture secondary to elevated white blood cell count urine sample and urine culture. Chest x-ray was obtained to rule out possible pneumonia or chest wall injury from the fall and CTs of the head and cervical spine were obtained to rule out traumatic brain injury and cervical spine fracture. Images did not reveal any acute traumatic finding or obvious signs of infection. Patient's white count has elevated from discharge as it was approximately 11 and then increased to 17 and now 21. Secondary to this blood cultures and urine cultures were obtained and patient was started on vancomycin and Zosyn with concern for secondary infection. She does not have any nuchal rigidity and therefore I do not feel there is need for a lumbar puncture. There is concern that she may be having CO2 retention so a venous blood gas was obtained that revealed a normal pCO2 of 43. As her sodium has been chronically low with a value of 124 at discharge the fact that she is now down 5 points to 119 I do not feel warrants treatment with hypertonic saline. However the patient has been having a elevated white blood cell count that has been trending up since discharge she has increased weakness and confusion and therefore is not safe for discharge home and therefore she will be admitted to the medicine service for further care. History & Record Review Discussion w/independent historian: EMS personnel, Patient and Family Lab Data Attestation: I reviewed the patient's lab results. Labs: Laboratory Results - last 24 hr 09/27/23 09/27/23 05:48 06:35 WBC 20.7 H RBC 4.37 Hgb 13.4 Hct 38.4 MCV 87.9 MCH 30.7 MCHC 34.9 D RDW Std Deviation 44.6 H RDW Coeff of Tami 13.8 Plt Count 559 H MPV 8.6 Immature Gran % (Auto) 1.500 H Neut % (Auto) 82.3 H Lymph % (Auto) 7.2 L [place] % (Auto) 8.5 Eos % (Auto) 0.1 Baso % (Auto) 0.4 Absolute Neuts (auto) 17.1 H Absolute Lymphs (auto) 1.50 Nucleated RBC % 0 Diff Path Review May foll PT 13.2 INR 1.0 APTT 30.4 Sodium 119 L* Potassium 3.8 Chloride 82 L Carbon Dioxide 28.0 Anion Gap 9 BUN 15 Creatinine 1.48 H Estim Creat Clear Calc 25.04 Est GFR (MDRD) Af Amer 45 L Est GFR (MDRD) Non-Af 37 L BUN/Creatinine Ratio 10.1 Glucose 133 H Lactic Acid 1.1 Calcium 9.1 Total Bilirubin 0.50 Direct Bilirubin 0.19 AST 27 ALT 34 Alkaline Phosphatase 91 Ammonia 27.0 Total Protein 6.7 Albumin 3.4 Globulin 3.3 Procalcitonin 0.09 TSH 0.62 Urine Color Yellow Urine Clarity Sl. Cloudy Urine pH 5.0 Ur Specific [place] 1.010 Urine Protein 15 H Urine Glucose (UA) Normal Urine Ketones 5 H Urine Occult Blood 10 H Urine Nitrite Negative Urine Bilirubin Negative Urine Urobilinogen Normal Ur Leukocyte Esterase 25 H Urine RBC 0-5 SEEN Urine WBC 0-5 SEEN Ur Squamous Epith Cells 0-5 SEEN Urine Bacteria RARE Urine Mucus 0 SEEN Urine Opiates Screen NEGATIVE Urine Methadone Screen NEGATIVE Ur Barbiturates Screen NEGATIVE Ur Phencyclidine Scrn NEGATIVE Ur Amphetamines Screen NEGATIVE MDMA (Ecstasy) Screen NEGATIVE U Benzodiazepines Scrn NEGATIVE Urine Cocaine Screen NEGATIVE U Cannabinoids Screen NEGATIVE Ur Drug Screen Comment Ethyl Alcohol < 3.0 ABG Data ABG results: ABG 09/27/23 08:03 Specimen Type MERCEDES Sample Site Not entered O2 % 21.0 VBG pH 7.43 H VBG pO2 40 VBG HCO3 28 H VBG Total CO2 30 VBG O2 Sat (Calc) 76 H VBG Base Excess 4 H POC Mix VBG pCO2 Pt Tmp 42.7 O2 Delivery Device Room Air Radiography Diagnostic Testing: Clinical Impression(s) from Imaging Studies Brain CT 09/27/23 06:03 IMPRESSION: Stable chronic ischemic and atrophic changes. No acute intracranial abnormality. Electronically Signed: Manjit Meza MD at 8:06 EST , Cervical Spine CT 09/27/23 06:03 IMPRESSION: No fracture or dislocation in the cervical spine. Straightening of the normal cervical lordosis which may be due to paraspinal muscle spasm or may be positional in nature. Moderate degenerative change. Electronically Signed: Manjit Meza MD at 8:17 EST , 1 view pelvis x-ray as interpreted by the emergency medicine physician reveals no acute fracture or dislocation 1 view chest x-ray as interpreted by the emergency medicine physician reveals hazy opacity in the bilateral lower lobes inflammatory versus infectious. Management Discussion w/another healthcare provider: Hospitalist Discharge Plan Dx/Rx/DC Orders Clinical Impression: Hyponatremia, Leukocytosis, Encephalopathy Disposition Disposition: Acute Care [facility]
--- NOTE | 2023-09-27 07:38 | RAD_ITS ---
STUDY: X-RAY - PELVIS REASON FOR EXAM: Female, 73 years old. Fall TECHNIQUE: One view of the pelvis was obtained. COMPARISON: None. FINDINGS: There is no evidence of fracture or dislocation. There are mild degenerative changes in the hips. There are no radiodense foreign bodies. RAD/Pelvis 1 or 2 Views IMPRESSION: No fracture or dislocation in the pelvis. Mild degenerative changes in the hips. Electronically Signed: Manjit Meza MD at 8:32 EST ,
--- NOTE | 2023-09-27 07:38 | RAD_ITS ---
STUDY: X-RAY CHEST REASON FOR EXAM: Female, 73 years old. Fall TECHNIQUE: Frontal view of the chest COMPARISON: 09/18/2023 FINDINGS: The lungs are clear. There are no pleural effusions. There is no pneumothorax. The heart is normal in size. Again noted are calcified right hilar lymph nodes, consistent with prior granulomatous disease. The visualized osseous structures are within normal limits. RAD/Chest 1 View (Portable) IMPRESSION: No acute thoracic pathology. Electronically Signed: Manjit Meza MD at 8:31 EST ,
[2023-09-27] MEDS: Piperacil/Tazobactam 3.375 GM in 0.9% Normal Saline (50mL MB+) 50 ML IV (08:00)
[2023-09-27 08:06] LABS: Blood Gas Specimen Type VEN; O2 Delivery Device Room Air; SITE Not entered; VBG BASE EXCESS 4 mmol/L (-1.0-3.5); VBG Bicarbonate 28 mmol/L (22-26); VBG PO2 40 mmHg (25-40); VBG SO2 76 % (50-70); VBG TCO2 30 mmol/L (23-33); VBG pCO2 42.7 mmHg (41-51); VBG pH 7.43 (7.32-7.42)
--- NOTE | 2023-09-27 08:29 | PCM.HP.STD ---
HPI - General General Date of Admission: 09/27/23 Date of Service: 09/27/23 Chief Complaint: Fall, could not lift herself. Was confused/altered mental status HPI Narrative ALEXIA POWELL, is a 73 F who brought to ED by EMS squad when she was found on the floor. She said she fell from the bed when he hit her head. As per EMS her right knee was hurting. Denies any major injuries. Patient also confused and disoriented as she was slow to respond to questions, was having a stare look by EMS. In ED patient mental status patient was still slightly confused, looked obtunded and responding slow. She denies chest pain, shortness of breath, loss of consciousness or syncope. She had mild bruising right knee. Her sodium was found low 119 in ED and with history of confusion/altered mental status, hypertonic saline was given. Repeat sodium shows 123. After mental status improved and she is responding correctly to most of the questions except her age and time of the day. Her vitals in acceptable limit. The patient had multiple imagings for fall which did not show any acute abnormality. [facility] Medical History Abdominal pain Actinic keratoses Anemia Arthritis Atypical chest pain Back problem Basal cell carcinoma of right forehead Basal cell carcinoma of right medial cheek Basal cell carcinoma of upper lip Benign neoplasm of skin of cheek Bilateral lower extremity edema Bladder disease Cancer COPD (chronic obstructive pulmonary disease) Cutaneous candidiasis DDD (degenerative disc disease) Debility Dermatitis Diabetes Dietary restriction Dissociative identity disorder Dizziness Drug abuse Flu vaccine need Frequent falls Gastric reflux Hemangioma of face Hepatitis High cholesterol History of edema History of stress test History of UTI Hypertension Injury of back Injury of head and neck Intertrigo Intradermal nevus Kidney disease Kidney failure Left ankle pain Left wrist fracture Loose, teeth Low iron Manic episode Morbid obesity Multiple personalities Neoplasm of skin of eyelid Neoplasm of skin of nose Neurofibroma of neck Obesity (BMI 30-39.9) Osteoarthritis Osteoporosis Panic attacks Prediabetes Primary osteoarthritis, left shoulder Rib pain on right side Seizures Shortness of breath on exertion Substance abuse Tumors Type 2 diabetes mellitus Urinary incontinence Venous insufficiency of both lower extremities Walker as ambulation aid Wears glasses Weight gain Home Medications acetaminophen 650 mg tablet,extended release (Tylenol Arthritis Pain) 650 mg PO Q12H PRN pain 01/23/21 [History Last Taken Unknown] Handicap Placard #1 ea 02/07/21 [Rx Last Taken Unknown] inhalational spacing device (POCKET CHAMBER spacer) #1 ea 06/26/21 [Rx Last Taken Unknown] buprenorphine 100 mg/0.5 mL solution,exten.rel.subcutaneous syringe 100 mg subcut QMONTH WITHDRAWAL SYMPTOM CONTROL 08/07/21 [History Last Taken 09/17/23] ascorbic acid (vitamin C) 500 mg capsule 500 mg PO DAILY vitamin 07/08/22 [History Last Taken Unknown] Incentive Spirometer #1 ea 08/05/22 [Rx Last Taken Unknown] ferrous sulfate 324 mg (65 mg iron) tablet,delayed release 324 mg PO Q OTHER DAY #90 tabs 11/17/22 [Rx Last Taken Unknown] metoprolol succinate 50 mg tablet,extended release 24 hr 50 mg PO DAILY #90 tabs 01/05/23 [Rx Last Taken Unknown] mirabegron 50 mg tablet,extended release 24 hr (Myrbetriq) 50 mg PO Q24H diabetic 05/07/23 [History Last Taken Unknown] metoprolol succinate 25 mg tablet,extended release 24 hr 25 mg PO QHS #90 tabs 05/08/23 [Rx Last Taken Unknown] rosuvastatin 40 mg tablet 40 mg PO DAILY #90 tabs 05/08/23 [Rx Last Taken Unknown] miconazole nitrate 2 % topical powder (Desenex) 1 applic topical BID #85 grams 07/10/23 [Rx Last Taken Unknown] blood sugar diagnostic (FreeStyle Lite Strips) #100 ea 07/15/23 [Rx Last Taken Unknown] blood-glucose meter (FreeStyle Lite Meter kit) #1 ea 07/15/23 [Rx Last Taken Unknown] lancets 28 gauge (FreeStyle Lancets) #200 ea 07/15/23 [Rx Last Taken Unknown] divalproex 500 mg tablet,extended release 24 hr 500 mg PO BID #60 tabs 07/21/23 [Rx Last Taken Unknown] lactulose 10 gram/15 mL oral solution 20 g (30 mL) PO DAILY #946 mL 07/22/23 [Rx Last Taken Unknown] dulaglutide 0.75 mg/0.5 mL subcutaneous pen injector (Trulicity) 0.75 mg subcut QWEEK diabeties 08/04/23 [History Last Taken Unknown] calcium carbonate 600 mg calcium (1,500 mg) tablet 600 mg PO BID #180 tabs 08/06/23 [Rx Last Taken Unknown] furosemide 20 mg tablet (Lasix) 20 mg PO DAILY #90 tabs 08/28/23 [Rx Last Taken Unknown] lisinopril 40 mg tablet 40 mg PO QAM blood pressure #90 tabs 08/28/23 [Rx Last Taken Unknown] nicotine 21 mg/24 hr daily transdermal patch 1 patch transdermal Q24H #28 ea 09/16/23 [Rx Last Taken Unknown] cariprazine 3 mg capsule (Vraylar) 3 mg PO Q24H depression 09/19/23 [History Last Taken Unknown] fesoterodine 4 mg tablet,extended release 24 hr 4 mg PO DAILY bladder spasms 09/19/23 [History Last Taken Unknown] lamotrigine 200 mg tablet 200 mg PO QHS depression 09/19/23 [History Last Taken Unknown] meloxicam 15 mg tablet 15 mg PO DAILY pain 09/19/23 [History Last Taken Unknown] cephalexin 500 mg capsule 500 mg PO BID #16 caps 09/21/23 [Rx Last Taken Unknown] hydralazine 50 mg tablet 50 mg PO TID #90 tabs 09/21/23 [Rx Last Taken Unknown] denosumab 60 mg/mL subcutaneous syringe (Prolia) 60 mg subcut [id number] #1 mL 09/25/23 [Rx Last Taken Unknown] metformin 500 mg tablet,extended release 24 hr 500 mg PO BID #60 tabs 09/25/23 [Rx Last Taken Unknown] Allergy/AdvReac Type Severity Reaction Status Date / Time iloperidone [From Fanapt] Allergy Severe Other Verified 09/27/23 05:47 paliperidone [From Invega] Allergy Severe increased Verified 09/27/23 05:47 psychiatric symptoms lurasidone [From Latuda] Allergy Other Verified 09/27/23 05:47 trazodone AdvReac Severe Other Verified 09/27/23 05:47 theophylline AdvReac Other Verified 09/27/23 05:47 Family History Brother Colon cancer Lung cancer Aunt Obesity Sister Obesity Mother Rheumatoid arthritis Father Alzheimer disease Brother Alzheimer disease Surgical History H/O hernia repair H/O: hysterectomy History of 3 sections History of basal cell carcinoma excision History of History of carpal tunnel surgery History of cholecystectomy History of colonoscopy History of endoscopy History of excision of lesion History of hernia repair Social History Smoking Status: Current every day smoker tobacco type: cigarettes Tobacco: How many years used: 20 how long ago did patient quit smoking: second hand exposure: No alcohol intake: never substance use type: former substance user Date of last use: Cocaine what type of physical activity do you participate in: none vince/hindu: Latter Day seatbelt use: always ROS ROS Narrative Constitutional: Reports fatigue and weakness. Fall as described in HPI no fever. HEENT: Reports systems reviewed and no addt'l complaints, except as documented Respiratory/Chest: No acute shortness of breath or respiratory distress or wheezing. CVS: Denies chest pressure or tightness. No syncope. Gastrointestinal: Denies coffee ground emesis, hematemesis or vomiting Genitourinary: Denies burning urination or new urinary tract symptoms Musculoskeletal: Denies acute joint pain or limited range of motion. No acute injury. Chronic degenerative arthritis Neurologic: Denies acute seizure-like symptoms. Last seizure was 35 years ago. No acute or strokelike symptoms. No LOC. skin: Mild bruising and scratches in lower legs. Endocrinology: Reports systems reviewed and no addt'l complaints, except as documented Hematologic/Lymphatic: Reports systems reviewed and no addt'l complaints, except as documented Rest 14 ROS are negative except as mentioned in HPI Vital Signs Vital Signs Vital Signs: 09/27/23 05:43 09/27/23 07:10 Temperature 96.6 F L Temperature Source Temporal Pulse Rate 98 83 Respiratory Rate 16 16 Blood Pressure 125/78 H 124/71 H Blood Pressure Mean 93 88 Pulse Ox 94 96 Oxygen Delivery Method Room Air Room Air Weight Weight: 220 lb 10.923 oz Body Mass Index (BMI) 43.1 Physical Exam Narrative General: Awake, oriented x2, disoriented to time cooperative, morbid obesity BMI 43.1 kg/m? HEENT: Atraumatic, PERRLA, EOMI, Normocephalic Oral: Oral mucosa dry. No Gingival or Mucosal Lesions/ Ulcerations Neck: Supple, No JVD, Negative Carotid Bruits Lungs: Air entry diminished in bilateral lung bases. No crepitation/rhonchi Cardiovascular: Regular rate, Regular Rhythm, Normal S1, Normal S2, systolic murmurs Abdomen: Bowel Sounds Present, Soft, Non Tender, Non-Distended : No renal angle tenderness. No suprapubic tenderness. Extremities: Mild bilateral below-knee pitting edema, Capillary Refill Less than 3 Seconds Skin: Mild bruises in lower legs. Musculoskeletal: No acute tenderness to Palpation of Joints or Extremities. Chronic degenerative arthritis/bony deformity of bilateral knees. Neurological: Cranial nerves II-XII grossly intact, DTR 2+/4. No acute focal neurological deficit. Psych/Mental Status: Flat affect. Results Lab / Micro Data 09/27/23 05:48 09/27/23 11:46 Labs: Laboratory Results - last 24 hr 09/27/23 05:48: WBC 20.7 H, RBC 4.37, Hgb 13.4, Hct 38.4, MCV 87.9, MCH 30.7, MCHC 34.9 D, RDW Std Deviation 44.6 H, RDW Coeff of Tami 13.8, Plt Count 559 H, MPV 8.6, Immature Gran % (Auto) 1.500 H, Neut % (Auto) 82.3 H, Lymph % (Auto) 7.2 L, [place] % (Auto) 8.5, Eos % (Auto) 0.1, Baso % (Auto) 0.4, Absolute Neuts (auto) 17.1 H, Absolute Lymphs (auto) 1.50, Nucleated RBC % 0, Diff Path Review February, PT 13.2, INR 1.0, APTT 30.4, Sodium 119 L*, Potassium 3.8, Chloride 82 L, Carbon Dioxide 28.0, Anion Gap 9, BUN 15, Creatinine 1.48 H, Estim Creat Clear Calc 25.04, Est GFR (MDRD) Af Amer 45 L, Est GFR (MDRD) Non-Af 37 L, BUN/Creatinine Ratio 10.1, Glucose 133 H, Lactic Acid 1.1, Calcium 9.1, Total Bilirubin 0.50, Direct Bilirubin 0.19, AST 27, ALT 34, Alkaline Phosphatase 91, Ammonia 27.0, Total Protein 6.7, Albumin 3.4, Globulin 3.3, Procalcitonin 0.09, TSH 0.62, Ethyl Alcohol < 3.0 09/27/23 06:35: Urine Color Yellow, Urine Clarity Sl. Cloudy, Urine pH 5.0, Ur Specific [place] 1.010, Urine Protein 15 H, Urine Glucose (UA) Normal, Urine Ketones 5 H, Urine Occult Blood 10 H, Urine Nitrite Negative, Urine Bilirubin Negative, Urine Urobilinogen Normal, Ur Leukocyte Esterase 25 H, Urine RBC 0-5 SEEN, Urine WBC 0-5 SEEN, Ur Squamous Epith Cells 0-5 SEEN, Urine Bacteria RARE, Urine Mucus 0 SEEN, Urine Opiates Screen NEGATIVE, Urine Methadone Screen NEGATIVE, Ur Barbiturates Screen NEGATIVE, Ur Phencyclidine Scrn NEGATIVE, Ur Amphetamines Screen NEGATIVE, MDMA (Ecstasy) Screen NEGATIVE, U Benzodiazepines Scrn NEGATIVE, Urine Cocaine Screen NEGATIVE, U Cannabinoids Screen NEGATIVE, Ur Drug Screen Comment ABG Data ABG results: ABG 09/27/23 08:03 Specimen Type MERCEDES Sample Site Not entered O2 % 21.0 VBG pH 7.43 H VBG pO2 40 VBG HCO3 28 H VBG Total CO2 30 VBG O2 Sat (Calc) 76 H VBG Base Excess 4 H POC Mix VBG pCO2 Pt Tmp 42.7 O2 Delivery Device Room Air Imagaing Radiology Impression Brain CT 09/27/23 06:03 IMPRESSION: Stable chronic ischemic and atrophic changes. No acute intracranial abnormality. Electronically Signed: Manjit Meza MD at 8:06 EST Reading Location ID and State: [facility] / [place] Tel , Service support , Cervical Spine CT 09/27/23 06:03 IMPRESSION: No fracture or dislocation in the cervical spine. Straightening of the normal cervical lordosis which may be due to paraspinal muscle spasm or may be positional in nature. Moderate degenerative change. Electronically Signed: Manjit Meza MD at 8:17 EST , Assessment & Plan Assessment/Plan (1) Encephalopathy: (2) Hyponatremia: PLAN: Plan This is 73-year-old female being admitted for fall, hyponatremia and confusion/decreased responsiveness/altered mental status. 1. Acute encephalopathy, exact etiology unclear possible multiple including hyponatremia/metabolic encephalopathy and medications/Depakote: Patient is being admitted in PCU. Patient was last admitted for acute Proteus UTI, encephalopathy and high ammonia but clinically UTI is resolved as patient does not have burning micturition/increased frequency or urgency. UA shows negative nitrite LE 25, WBC 0-5 cells normal especially diabetes. VBG 7.43/42.7, calculated bicarb 28. Bicarb 28 on BMP. Will try to treat underlying disorder. 2. Severe symptomatic hypotonic, isovolemic hyponatremia: With acute encephalopathy/AMS and history of seizure and hyponatremia unknown precipitant of seizure, decided to treat with hypertonic saline. Sodium was 119 and increased to 123 after 100 mL of hypertonic saline. Plant Maintenance Engineer is consulted. Goal of increasing sodium should be 4 to 6 mEq in 24 hours. Patient also has leg edema therefore I will leave the decision on medical insurance clerk for further treatment. Serum, urine osmolality and urine electrolytes ordered. 3. YANE: Patient baseline creatinine was 0.78 on 09/25/2023 and then discharged on 1.14. Admitted with BUNs/creatinine 15/1.48. Patient on lisinopril 40 mg daily, furosemide 20 mg daily, metformin. Hold all these medications. Monitor kidney function. 4. DM-2: Accu-Chek before meals and at bedtime can cover with Humalog sliding scale. Hold nonformulary Trulicity. 5. Hypertension: Blood pressure in normal range. Continue metoprolol and hydralazine with holding parameters. Hold lisinopril as mentioned above. 6. Bipolar disorder and chronic seizure disorder: Patient on Depakote continued. 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 Patient had good bowel movement in ED. Last seizure was about 30 years ago. 7. Other multiple comorbidities include dyslipidemia, COPD not on inhalers, chronic urinary incontinence, chronic cigarette/nicotine use disorder, history of opioid use, morbid obesity: Patient BMI is 43.1 kg/m?. Dr. Lin follows for opioid use disorder. Patient on nicotine patch. Patient not on COPD exacerbation therefore DuoNeb as needed. 8. DVT prophylaxis: Enoxaparin 30 mg subcu daily adjusted to creatinine clearance. Living will/advanced directive/end of life care: Patient does not have living will or advanced directive. She does not have power of county attorney for health. Her daughter is closest next of kin. After discussion of benefits/risks procedures involved with full code, DNR CC arrest and DNR CC, the patient opted for full code. Patient does want artificial life support including intubation, tube feed, ventilator and/chest compression, central venous catheter, vasopressor and DC shock if needed Total time spent in [id number] encounter in discussion of advanced directive 17 minutes. Laboratory Results 09/27/23 05:45: Phosphorus 3.1, Magnesium Pending 09/27/23 05:45: Magnesium 2.0 09/27/23 05:48: WBC 20.7 H, RBC 4.37, Hgb 13.4, Hct 38.4, MCV 87.9, MCH 30.7, MCHC 34.9 D, RDW Std Deviation 44.6 H, RDW Coeff of Tami 13.8, Plt Count 559 H, MPV 8.6, Immature Gran % (Auto) 1.500 H, Neut % (Auto) 82.3 H, Lymph % (Auto) 7.2 L, [place] % (Auto) 8.5, Eos % (Auto) 0.1, Baso % (Auto) 0.4, Absolute Neuts (auto) 17.1 H, Absolute Lymphs (auto) 1.50, Nucleated RBC % 0, Diff Path Review February, PT 13.2, INR 1.0, APTT 30.4, Sodium 119 L*, Potassium 3.8, Chloride 82 L, Carbon Dioxide 28.0, Anion Gap 9, BUN 15, Creatinine 1.48 H, Estim Creat Clear Calc 25.04, Est GFR (MDRD) Af Amer 45 L, Est GFR (MDRD) Non-Af 37 L, BUN/Creatinine Ratio 10.1, Glucose 133 H, Lactic Acid 1.1, Calcium 9.1, Total Bilirubin 0.50, Direct Bilirubin 0.19, AST 27, ALT 34, Alkaline Phosphatase 91, Ammonia 27.0, Total Protein 6.7, Albumin 3.4, Globulin 3.3, Procalcitonin 0.09, TSH 0.62, Ethyl Alcohol < 3.0 09/27/23 06:35: Urine Color Yellow, Urine Clarity Sl. Cloudy, Urine pH 5.0, Ur Specific [place] 1.010, Urine Protein 15 H, Urine Glucose (UA) Normal, Urine Ketones 5 H, Urine Occult Blood 10 H, Urine Nitrite Negative, Urine Bilirubin Negative, Urine Urobilinogen Normal, Ur Leukocyte Esterase 25 H, Urine RBC 0-5 SEEN, Urine WBC 0-5 SEEN, Ur Squamous Epith Cells 0-5 SEEN, Urine Bacteria RARE, Urine Mucus 0 SEEN, Urine Opiates Screen NEGATIVE, Urine Methadone Screen NEGATIVE, Ur Barbiturates Screen NEGATIVE, Ur Phencyclidine Scrn NEGATIVE, Ur Amphetamines Screen NEGATIVE, MDMA (Ecstasy) Screen NEGATIVE, U Benzodiazepines Scrn NEGATIVE, Urine Cocaine Screen NEGATIVE, U Cannabinoids Screen NEGATIVE, Ur Drug Screen Comment 09/27/23 08:03: Specimen Type MERCEDES, Sample Site Not entered, O2 % 21.0, VBG pH 7.43 H, VBG pO2 40, VBG HCO3 28 H, VBG Total CO2 30, VBG O2 Sat (Calc) 76 H, VBG Base Excess 4 H, POC Mix VBG pCO2 Pt Tmp 42.7, O2 Delivery Device Room Air 09/27/23 11:46: Sodium 123 L Charges/Coding Visit Charges Inpatient E&M: 15078 Init Hosp L3 Procedures Hospitalists Procedures: 20033 Advncd Care Plan 30 Min
[2023-09-27] MEDS: Vancomycin HCl 1,500 MG in 0.9% Normal Saline (500mL Bag) 500 ML 250 MG IV (08:33)
[2023-09-27 09:05] LABS: Phosphorus 3.1 mg/dL (2.5-4.9)
[2023-09-27] MEDS: Sodium Cl 3% 500 ML 100 ML IV (10:26)
--- NOTE | 2023-09-27 10:53 | ED.RN ---
this rn called dr. mckinley at 0915 to clarify order for sodium infusion. per dr. mckinley order enterred incorrectly and will change.
--- NOTE | 2023-09-27 10:55 | ED.RN ---
1000 09/27/[address] LOVELL AGAIN ABOUT SODIUM INFUSION ORDER. THIS RN CALLED AND TALKED TO PHARMACIST WELL TO CLARIFY DRJose Luis ORDER. PER DR. LOVELL, PT TO RECEIVE 100MLS OF INFUSION AND THEN STOP THE DRIP. A REPEAT SODIUM WILL BE REPEATED AFTER 100MLS INFUSED AND THEN NOTIFY DR. LOVELL.
[2023-09-27 12:02] LABS: Sodium Level 123 mmol/L (136-145)
--- NOTE | 2023-09-27 12:29 | ED.RN ---
per dr. mckinley, no need to continue 3% NACL at this time. send patient to PCU.
--- NOTE | 2023-09-27 16:23 | CON.PCM.RE_ITS ---
Assessment & Plan Assessment/Plan (1) Hyponatremia: PLAN: sodium was normal in april. was admitted here a week ago with hyponatremia. improved with fluids. med list reviewed. ? SIADH related to depakote. she also has some LE edema for which she was discharged on lasix. no breathing issues. urine labs pending. repeat sodium 123, can monitor for now HPI Consult Data Date of Consult: 09/27/23 HPI Narrative Reason for Consultation: Hyponatremia HPI Narrative: ALEXIA POWELL, is a 73 F who presents to hospital with AMS. nephrology consulted in view of hyponatremia. she was recently admitted here a week ago with hyponatremia and UTI. uses depakote for seizures. sodium was 119 on admit. received a bolus of 3% due to altered mental status and is now better. repeat sodium 123. [facility] Medical History Abdominal pain Actinic keratoses Anemia Arthritis Atypical chest pain Back problem Basal cell carcinoma of right forehead Basal cell carcinoma of right medial cheek Basal cell carcinoma of upper lip Benign neoplasm of skin of cheek Bilateral lower extremity edema Bladder disease Cancer COPD (chronic obstructive pulmonary disease) Cutaneous candidiasis DDD (degenerative disc disease) Debility Dermatitis Diabetes Dietary restriction Dissociative identity disorder Dizziness Drug abuse Flu vaccine need Frequent falls Gastric reflux Hemangioma of face Hepatitis High cholesterol History of edema History of stress test History of UTI Hypertension Injury of back Injury of head and neck Intertrigo Intradermal nevus Kidney disease Kidney failure Left ankle pain Left wrist fracture Loose, teeth Low iron Manic episode Morbid obesity Multiple personalities Neoplasm of skin of eyelid Neoplasm of skin of nose Neurofibroma of neck Obesity (BMI 30-39.9) Osteoarthritis Osteoporosis Panic attacks Prediabetes Primary osteoarthritis, left shoulder Rib pain on right side Seizures Shortness of breath on exertion Substance abuse Tumors Type 2 diabetes mellitus Urinary incontinence Venous insufficiency of both lower extremities Walker as ambulation aid Wears glasses Weight gain Home Medications acetaminophen 650 mg tablet,extended release (Tylenol Arthritis Pain) 650 mg PO Q12H PRN pain 01/23/21 [History Last Taken Unknown] Handicap Placard #1 ea 02/07/21 [Rx Last Taken Unknown] inhalational spacing device (POCKET CHAMBER spacer) #1 ea 06/26/21 [Rx Last Taken Unknown] buprenorphine 100 mg/0.5 mL solution,exten.rel.subcutaneous syringe 100 mg subcut QMONTH WITHDRAWAL SYMPTOM CONTROL 08/07/21 [History Last Taken 09/17/23] ascorbic acid (vitamin C) 500 mg capsule 500 mg PO DAILY vitamin 07/08/22 [History Last Taken Unknown] Incentive Spirometer #1 ea 08/05/22 [Rx Last Taken Unknown] ferrous sulfate 324 mg (65 mg iron) tablet,delayed release 324 mg PO Q OTHER DAY #90 tabs 11/17/22 [Rx Last Taken Unknown] metoprolol succinate 50 mg tablet,extended release 24 hr 50 mg PO DAILY #90 tabs 01/05/23 [Rx Last Taken Unknown] mirabegron 50 mg tablet,extended release 24 hr (Myrbetriq) 50 mg PO Q24H diabetic 05/07/23 [History Last Taken Unknown] metoprolol succinate 25 mg tablet,extended release 24 hr 25 mg PO QHS #90 tabs 05/08/23 [Rx Last Taken Unknown] rosuvastatin 40 mg tablet 40 mg PO DAILY #90 tabs 05/08/23 [Rx Last Taken Unknown] miconazole nitrate 2 % topical powder (Desenex) 1 applic topical BID #85 grams 07/10/23 [Rx Last Taken Unknown] blood sugar diagnostic (FreeStyle Lite Strips) #100 ea 07/15/23 [Rx Last Taken Unknown] blood-glucose meter (FreeStyle Lite Meter kit) #1 ea 07/15/23 [Rx Last Taken Unknown] lancets 28 gauge (FreeStyle Lancets) #200 ea 07/15/23 [Rx Last Taken Unknown] divalproex 500 mg tablet,extended release 24 hr 500 mg PO BID #60 tabs 07/21/23 [Rx Last Taken Unknown] lactulose 10 gram/15 mL oral solution 20 g (30 mL) PO DAILY #946 mL 07/22/23 [Rx Last Taken Unknown] dulaglutide 0.75 mg/0.5 mL subcutaneous pen injector (Trulicity) 0.75 mg subcut QWEEK diabeties 08/04/23 [History Last Taken Unknown] calcium carbonate 600 mg calcium (1,500 mg) tablet 600 mg PO BID #180 tabs 08/06/23 [Rx Last Taken Unknown] furosemide 20 mg tablet (Lasix) 20 mg PO DAILY #90 tabs 08/28/23 [Rx Last Taken Unknown] lisinopril 40 mg tablet 40 mg PO QAM blood pressure #90 tabs 08/28/23 [Rx Last Taken Unknown] nicotine 21 mg/24 hr daily transdermal patch 1 patch transdermal Q24H #28 ea 09/16/23 [Rx Last Taken Unknown] cariprazine 3 mg capsule (Vraylar) 3 mg PO Q24H depression 09/19/23 [History Last Taken Unknown] fesoterodine 4 mg tablet,extended release 24 hr 4 mg PO DAILY bladder spasms 09/19/23 [History Last Taken Unknown] lamotrigine 200 mg tablet 200 mg PO QHS depression 09/19/23 [History Last Taken Unknown] meloxicam 15 mg tablet 15 mg PO DAILY pain 09/19/23 [History Last Taken Unknown] cephalexin 500 mg capsule 500 mg PO BID #16 caps 09/21/23 [Rx Last Taken Unknown] hydralazine 50 mg tablet 50 mg PO TID #90 tabs 09/21/23 [Rx Last Taken Unknown] denosumab 60 mg/mL subcutaneous syringe (Prolia) 60 mg subcut [id number] #1 mL 09/25/23 [Rx Last Taken Unknown] metformin 500 mg tablet,extended release 24 hr 500 mg PO BID #60 tabs 09/25/23 [Rx Last Taken Unknown] Allergy/AdvReac Type Severity Reaction Status Date / Time iloperidone [From Fanapt] Allergy Severe Other Verified 09/27/23 05:47 paliperidone [From Invega] Allergy Severe increased Verified 09/27/23 05:47 psychiatric symptoms lurasidone [From Latuda] Allergy Other Verified 09/27/23 05:47 trazodone AdvReac Severe Other Verified 09/27/23 05:47 theophylline AdvReac Other Verified 09/27/23 05:47 Family History Brother Colon cancer Lung cancer Aunt Obesity Sister Obesity Mother Rheumatoid arthritis Father Alzheimer disease Brother Alzheimer disease Surgical History H/O hernia repair H/O: hysterectomy History of 3 sections History of basal cell carcinoma excision History of History of carpal tunnel surgery History of cholecystectomy History of colonoscopy History of endoscopy History of excision of lesion History of hernia repair Social History Smoking Status: Current every day smoker tobacco type: cigarettes Tobacco: How many years used: 20 how long ago did patient quit smoking: second hand exposure: No alcohol intake: never substance use type: former substance user Date of last use: Cocaine what type of physical activity do you participate in: none vince/scientology: Latter-[employer] seatbelt use: always ROS ROS Narrative negative except above Physical Exam Narrative Alert awake oriented x 3 no obvious distress no pallor no icterus no JVD s1s2 no murmurs lungs clear abdomen soft no organomegaly no edema no cyanosis Lab / Micro Data 09/27/23 05:48 09/27/23 11:46 Labs: Laboratory Results - last 24 hr 09/27/23 05:45: Phosphorus 3.1, Magnesium 2.0 09/27/23 05:48: WBC 20.7 H, RBC 4.37, Hgb 13.4, Hct 38.4, MCV 87.9, MCH 30.7, MCHC 34.9 D, RDW Std Deviation 44.6 H, RDW Coeff of Tami 13.8, Plt Count 559 H, MPV 8.6, Immature Gran % (Auto) 1.500 H, Neut % (Auto) 82.3 H, Lymph % (Auto) 7.2 L, [place] % (Auto) 8.5, Eos % (Auto) 0.1, Baso % (Auto) 0.4, Absolute Neuts (auto) 17.1 H, Absolute Lymphs (auto) 1.50, Nucleated RBC % 0, Diff Path Review February, PT 13.2, INR 1.0, APTT 30.4, Sodium 119 L*, Potassium 3.8, Chloride 82 L, Carbon Dioxide 28.0, Anion Gap 9, BUN 15, Creatinine 1.48 H, Estim Creat Clear Calc 25.04, Est GFR (MDRD) Af Amer 45 L, Est GFR (MDRD) Non-Af 37 L, BUN/Creatinine Ratio 10.1, Glucose 133 H, Lactic Acid 1.1, Calcium 9.1, Total Bilirubin 0.50, Direct Bilirubin 0.19, AST 27, ALT 34, Alkaline Phosphatase 91, Ammonia 27.0, Total Protein 6.7, Albumin 3.4, Globulin 3.3, Procalcitonin 0.09, TSH 0.62, Ethyl Alcohol < 3.0 09/27/23 06:35: Urine Color Yellow, Urine Clarity Sl. Cloudy, Urine pH 5.0, Ur Specific [place] 1.010, Urine Protein 15 H, Urine Glucose (UA) Normal, Urine Ketones 5 H, Urine Occult Blood 10 H, Urine Nitrite Negative, Urine Bilirubin Negative, Urine Urobilinogen Normal, Ur Leukocyte Esterase 25 H, Urine RBC 0-5 SEEN, Urine WBC 0-5 SEEN, Ur Squamous Epith Cells 0-5 SEEN, Urine Bacteria RARE, Urine Mucus 0 SEEN, Urine Opiates Screen NEGATIVE, Urine Methadone Screen NEGATIVE, Ur Barbiturates Screen NEGATIVE, Ur Phencyclidine Scrn NEGATIVE, Ur Amphetamines Screen NEGATIVE, MDMA (Ecstasy) Screen NEGATIVE, U Benzodiazepines Scrn NEGATIVE, Urine Cocaine Screen NEGATIVE, U Cannabinoids Screen NEGATIVE, Ur Drug Screen Comment 09/27/23 11:46: Sodium 123 L ABG Data ABG results: ABG 09/27/23 08:03 Specimen Type MERCEDES Sample Site Not entered O2 % 21.0 VBG pH 7.43 H VBG pO2 40 VBG HCO3 28 H VBG Total CO2 30 VBG O2 Sat (Calc) 76 H VBG Base Excess 4 H POC Mix VBG pCO2 Pt Tmp 42.7 O2 Delivery Device Room Air Imagaing Radiology Impression Brain CT 09/27/23 06:03 IMPRESSION: Stable chronic ischemic and atrophic changes. No acute intracranial abnormality. Electronically Signed: Manjit Meza MD at 8:06 EST , Cervical Spine CT 09/27/23 06:03 IMPRESSION: No fracture or dislocation in the cervical spine. Straightening of the normal cervical lordosis which may be due to paraspinal muscle spasm or may be positional in nature. Moderate degenerative change. Electronically Signed: Manjit Meza MD at 8:17 EST , Chest X-Ray 09/27/23 07:38 IMPRESSION: No acute thoracic pathology. Electronically Signed: Manjit Meza MD at 8:31 EST , Pelvis X-Ray 09/27/23 07:38 IMPRESSION: No fracture or dislocation in the pelvis. Mild degenerative changes in the hips. Electronically Signed: Manjit Meza MD at 8:32 EST ,
[2023-09-27] MEDS: hydrALAZINE 50 MG Tablet PO ×2 (16:41→21:06)
[2023-09-27] MEDS: Cephalexin 500 MG Capsule PO ×2 (16:41→21:07)
[2023-09-27] MEDS: Enoxaparin 40 MG/0.4 ML Syringe SC (16:41)
[2023-09-27] MEDS: Mirabegron 50 MG TAB.ER.24H PO (16:42)
[2023-09-27] MEDS: Ferrous Sulfate 325 MG Tablet PO (16:42)
[2023-09-27 16:53] LABS: Sodium Level 125 mmol/L (136-145)
[2023-09-27 17:33] LABS: Osmolality, Serum 266 mOsm/KG (280-301)
[2023-09-27] MEDS: Ipratropium/Albuterol Sulfate 3 ML AMPUL.NEB INHALATION (20:05)
[2023-09-27 20:13] LABS: Sodium Level 125 mmol/L (136-145)
[2023-09-27] MEDS: lamoTRIgine 100 MG Tablet 200 MG PO (21:06)
[2023-09-27] MEDS: Metoprolol(XL)Succ 25 MG Tablet PO (21:06)
[2023-09-27] MEDS: Divalproex (ER) 500 MG Tablet PO (21:07)
[2023-09-27] MEDS: Calcium Carbonate 500 MG Tablet PO (21:07)
[2023-09-27] MEDS: Nystatin Powder 15gm Bottle 1 APPLIC TOPICAL (21:07)
[2023-09-27] MEDS: 0.9% Saline Lock 10 ML Syringe IV (21:07)
[2023-09-27 22:58] LABS: Protein, Urine (Random) < 6.0 mg/dL (<11.9); Urine Chloride 11 mmol/L (Not Establ.); Urine Sodium 20 mmol/L (Not Establ.)
[2023-09-27 23:13] LABS: Osmolality, Urine 105 mOsm/KG
[2023-09-27 23:30] LABS: Bedside Glucose 122 mg/dL (74-106)
[2023-09-28] VITALS (10 sets, daily range): BP systolic 113–152; BP diastolic 63–87; PULSE 75–90; RESP 16–18; TEMP 36.4–36.8; O2SAT 93–98; BMI 42.0
[2023-09-28 00:32] LABS: Sodium Level 127 mmol/L (136-145)
[2023-09-28] MEDS: Acetaminophen 500 MG Tablet PO ×2 (01:47→09:56)
[2023-09-28 06:33] LABS: Absolute Lymphocyte Count 1.71 X10^3/uL (0.83-4.51); Absolute Neutrophil Count 8.9 X10^3/uL (2.0-7.7); Basophil# 0.04 X10^3/uL; Basophil% 0.3 % (0-1); Eosinophils% 0.8 % (0-5); Hematocrit 35.5 % (37-47); Hemoglobin 11.8 g/dL (12.0-15.0); Lymphocyte # 1.71 X10^3/ul (0.83-4.51); Lymphocyte % 14.3 % (19-41); Mean Corp Hgb Conc 33.2 g/dL (32-36); Mean Corpuscular Hgb 30.6 pg (27.0-32.0); Mean Corpuscular Volume 92.2 fL (81-99); Monocyte# 1.05 X10^3/uL; Monocyte% 8.8 % (0-10); NRBC Flagged by Analyzer 0 % (0-5); Neutrophil # 8.88 X10^3/uL (2.7-7.7); Platelet Count 454 K/mm3 (150-450); RBC Distribution Width CV 14.2 % (11.6-14.6); RBC Distribution Width SD 48.1 fl (35.1-43.9); Red Blood Count 3.85 M/mm3 (4.2-5.4)
[2023-09-28] MEDS: Ipratropium/Albuterol Sulfate 3 ML AMPUL.NEB INHALATION (07:14)
[2023-09-28 07:17] LABS: Bedside Glucose 110 mg/dL (74-106)
[2023-09-28 07:19] LABS: Anion Gap 7 (5-15); BUN 8 mg/dL (7-18); BUN/Creat Ratio 10.2 RATIO (10-20); Calcium,Total 8.6 mg/dL (8.5-10.1); Chloride 93 mmol/L (98-107); Creatinine, Serum 0.78 mg/dL (0.55-1.02); EST Glomerular Filtration Rate 77 mL/min (>60); Est Glom Filt Rate - Afr Amer 93 mL/min (>60); Estimated Creatinine Clearance 37.06 ml/min; Glucose 108 mg/dL (74-106); Potassium 4.2 mmol/L (3.5-5.1); Sodium Level 128 mmol/L (136-145); Thyroid Stim Hormone (TSH) 1.04 uIU/mL (0.358-3.74)
--- NOTE | 2023-09-28 09:38 | PN.RENAL_ITS ---
Subjective Subjective Sitting in chair. Denies any complaints. Objective Data Objective Data Vital Signs: Vital Signs Temp Pulse Resp BP Pulse Ox O2 Del Method 97.7 F L 78 16 113/63 94 Room Air 09/28/23 03:16 09/28/23 07:15 09/28/23 07:15 09/28/23 06:22 09/28/23 03:16 09/28/23 07:15 Oxygen Delivery Method Room Air Weight: 97.6 kg Body Mass Index (BMI) 42.0 Intake & Output: Intake and Output for Last 24 Hours 09/26/23 09/27/23 09/28/23 23:59 23:59 23:59 Intake Total 981.67 / 981.67 Output Total 1850 / 1850 Balance -868.33 / -868.33 Lab / Micro Data 09/28/23 06:20 09/28/23 06:20 Labs: Laboratory Results - last 24 hr 09/27/23 11:46: Sodium 123 L 09/27/23 16:00: Sodium 125 L, Serum Osmolality 266 L 09/27/23 20:00: Sodium 125 L 09/27/23 22:10: Urine Osmolality 105, U Random Total Protein < 6.0, Ur Random Sodium 20, Urine Creatinine 20.70, Protein/Creatinin Ratio TNP, Urine Potassium 5.0, Urine Chloride 11 09/27/23 23:09: POC Glucose 122 H 09/28/23 00:07: Sodium 127 L 09/28/23 06:20: WBC 12.0 H, RBC 3.85 L, Hgb 11.8 L, Hct 35.5 L, MCV 92.2, MCH 30.6, MCHC 33.2, RDW Std Deviation 48.1 H, RDW Coeff of Tami 14.2, Plt Count 454 H, MPV 9.0, Immature Gran % (Auto) 1.800 H, Neut % (Auto) 74.0 H, Lymph % (Auto) 14.3 L, [place] % (Auto) 8.8, Eos % (Auto) 0.8, Baso % (Auto) 0.3, Absolute Neuts (auto) 8.9 H, Absolute Lymphs (auto) 1.71, Nucleated RBC % 0, Sodium 128 L, Potassium 4.2, Chloride 93 L, Carbon Dioxide 28.0, Anion Gap 7, BUN 8, Creatinine 0.78, Estim Creat Clear Calc 37.06, Est GFR (MDRD) Af Amer 93, Est GFR (MDRD) Non-Af 77, BUN/Creatinine Ratio 10.2, Glucose 108 H, Calcium 8.6, TSH 1.04 09/28/23 06:21: POC Glucose 110 H Physical Exam Narrative Alert awake oriented x 3 no obvious distress s1s2 no murmurs lungs clear abdomen soft, nontender no pitting edema Assessment & Plan Assessment/Plan (1) Hyponatremia: PLAN: - Acute hyponatremia; sodium was normal in April. Patient was admitted to the hospital a week ago with hyponatremia, sodium was 123 on admission and by time of discharge improved to 129 on 09/21; improved with fluids (she was discharged on lasix for LE edema). On 09/25 sodium 124. Patient was readmitted back to the hospital on 09/27 sodium 119 at 0548 (this is the lowest value). Med list reviewed. ? SIADH related to depakote. She also has some LE edema for which she was discharged on lasix, no breathing issues. Patient received bolus of 3% normal saline yesterday, sodium improved 123 by noon, 125 at 2000 and sodium 127 by midnight. This morning serum sodium is 128. Will recheck sodium level at noon and if keeps going up then we will give D5W so to slow possible rapid sodium correction. Labs ordered for today and tomorrow. Serum osmolality 266, TSH normal, urine osmo 105, urine sodium 20. - YANE with normal baseline creatinine. Serum creatinine 1.48 mg/dL on admission and today her creatinine is 0.78. UA no RBC, 10 occult blood, 15 protein
[2023-09-28] MEDS: Metoprolol(XL)Succ 50 MG Tablet PO (09:55)
[2023-09-28] MEDS: Calcium Carbonate 500 MG Tablet PO ×2 (09:55→22:13)
[2023-09-28] MEDS: Ascorbic Acid 500 MG Tablet PO (09:55)
[2023-09-28] MEDS: Enoxaparin 40 MG/0.4 ML Syringe SC (09:55)
[2023-09-28] MEDS: Mirabegron 50 MG TAB.ER.24H PO (09:56)
[2023-09-28] MEDS: Atorvastatin Calcium 80 MG Tablet PO (09:56)
[2023-09-28] MEDS: Lactulose 20 GM/30 ML UDC PO (09:56)
[2023-09-28] MEDS: Cephalexin 500 MG Capsule PO ×2 (09:56→22:11)
[2023-09-28] MEDS: Divalproex (ER) 500 MG Tablet PO ×2 (09:56→22:11)
[2023-09-28] MEDS: Flu Vacc QS2023-24(65YR UP)/PF 240 MCG/0.7 ML Syringe IM (10:06)
[2023-09-28] MEDS: Nystatin Powder 15gm Bottle 1 APPLIC TOPICAL ×2 (10:11→22:12)
[2023-09-28 12:10] LABS: Bedside Glucose 139 mg/dL (74-106)
[2023-09-28 12:39] LABS: Sodium Level 128 mmol/L (136-145)
[2023-09-28] MEDS: hydrALAZINE 50 MG Tablet PO ×2 (15:09→22:11)
--- NOTE | 2023-09-28 15:55 | CHAPLAIN ---
Type of Pastoral Visit _x__ Initial Visit ___ Follow-up Visit ___ On-call Visit ___ General Patient Visit ___ Spiritual Assessment ___ Family Conference ___ Bereavement ___ Rapid Response ___ Code Blue ___ Other (describe below) Pastoral Care Referral From _x__ Patient ___ Family ___ Nurse ___ Physician ___ First Aid Attendant ___ Chemical Packager ___ Other (describe below) Sacrament/Intervention _x__ Active listening ___ Anointing ___ Gnosticist ___ Bereavement ___ Communion _x__ [place] exploration ___ _x__ Life review _x__ Prayer ___ Reconciliation ___ Sacrament of Sick _x__ Supportive presence ___ Wedding ___ Other (describe below) Pastoral Comments patient gives some background story on her life, explains how she came to [place] through a local [facility], and 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
[2023-09-28 16:32] LABS: Bedside Glucose 136 mg/dL (74-106)
--- NOTE | 2023-09-28 18:00 | PN.HOSP_ITS ---
Reason for Visit Reason for Visit: Fall/altered mental status Subjective Subjective Patient is a 73-year-old female who presents emergency department [facility] on 09/27/2023 due to a fall and altered mental status. Patient had a recent hospitalization here from 09/18/2023 through 09/21/2023 for similar complaint. At that time she was found to be hyponatremic and her sodium improved significantly with IV hydration. She represented with hyponatremia and altered mental status. She had been on her home antibiotics but repeat urine culture was ordered and pending. Sodium was found to be 119 again and she was treated with hypertonic saline given her confusion on presentation. She was admitted to the telemetry floor for ongoing monitoring and nephrology was consulted. They are wondering whether this is SIADH related to her Depakote use. This is not a new medication for her and she was on this at her last hospitalization and sodium improved selena pite this however she is on multiple antipsychotics related to her history of bipolar disease as well as Depakote for history of seizure disorder. Today her mental status is back to her baseline and she is asking when she can go home. Objective Data Objective Data Vital Signs: Vital Signs Temp Pulse Resp BP Pulse Ox O2 Del Method 98.0 F 82 16 152/79 H 95 Room Air 09/28/23 15:07 09/28/23 15:09 09/28/23 15:07 09/28/23 15:07 09/28/23 15:07 09/28/23 15:07 Oxygen Delivery Method Room Air Weight: 97.6 kg Body Mass Index (BMI) 42.0 Intake & Output: Intake and Output for Last 24 Hours 09/26/23 09/27/23 09/28/23 23:59 23:59 23:59 Intake Total 981.67 / 981.67 600 / 600 Output Total 1850 / 1850 Balance -868.33 / -868.33 600 / 600 Lab / Micro Data 09/28/23 06:20 09/28/23 12:11 Labs: Laboratory Results - last 24 hr 09/27/23 20:00: Sodium 125 L 09/27/23 22:10: Urine Osmolality 105, U Random Total Protein < 6.0, Ur Random Sodium 20, Urine Creatinine 20.70, Protein/Creatinin Ratio TNP, Urine Potassium 5.0, Urine Chloride 11 09/27/23 23:09: POC Glucose 122 H 09/28/23 00:07: Sodium 127 L 09/28/23 06:20: WBC 12.0 H, RBC 3.85 L, Hgb 11.8 L, Hct 35.5 L, MCV 92.2, MCH 30.6, MCHC 33.2, RDW Std Deviation 48.1 H, RDW Coeff of Tami 14.2, Plt Count 454 H, MPV 9.0, Immature Gran % (Auto) 1.800 H, Neut % (Auto) 74.0 H, Lymph % (Auto) 14.3 L, [place] % (Auto) 8.8, Eos % (Auto) 0.8, Baso % (Auto) 0.3, Absolute Neuts (auto) 8.9 H, Absolute Lymphs (auto) 1.71, Nucleated RBC % 0, Sodium 128 L, Potassium 4.2, Chloride 93 L, Carbon Dioxide 28.0, Anion Gap 7, BUN 8, Creatinine 0.78, Estim Creat Clear Calc 37.06, Est GFR (MDRD) Af Amer 93, Est GFR (MDRD) Non-Af 77, BUN/Creatinine Ratio 10.2, Glucose 108 H, Calcium 8.6, TSH 1.04 09/28/23 06:21: POC Glucose 110 H 09/28/23 11:53: POC Glucose 139 H 09/28/23 12:11: Sodium 128 L 09/28/23 16:14: POC Glucose 136 H Physical Exam Const alert, oriented x3 and no apparent distress; Negative for average body habitus or healthy appearing Constitutional Narrative: Older, white female, appears older than stated age, morbidly obese, sitting up in a chair at the bedside, appears comfortable and nontoxic, remembers me from her last hospitalization HEENT head/scalp atraumatic and moist oral mucous membranes HEENT Narrative: Edentulous, Mallampati is 2-3, no thrush Head and Scalp: normocephalic Resp normal respiratory effort, no retractions, no use of accessory muscles and clear to auscultation bilaterally Auscultation: Negative for rales, rhonchi or wheezes Cardio regular rate, regular rhythm, S1 normal heart sound, S2 normal heart sound, no murmurs, no rub, no gallops and no clicks GI normal to inspection, nondistended, normoactive bowel sounds, soft to palpation and non-tender Extremity no clubbing, cyanosis or edema Extremity Narrative: Pedal pulses are 2+ Neuro oriented x3, moves all extremities and no focal motor deficits Speech: speech normal Psych Psych Narrative: Affect is a little strange and speech is mildly pressured however patient seems to be at her baseline with regards to her psychiatric history, very pleasant and interacts appropriately at this time Assessment & Plan Assessment/Plan (1) Toxic metabolic encephalopathy: (2) Leukocytosis: (3) YANE (acute kidney injury): (4) Hyponatremia: PLAN: Plan Acute hyponatremia -Sodium was normal in April -Was admitted about a week and a half ago and was found to be hyponatremic but sodium improved to 129 on discharge with IV fluids only and she was maintained on her Lasix during her hospital course which is a chronic medication for her -Readmitted with a sodium of 119 -Nephrology is questioning SIADH related to her Depakote however she was on Depakote during her last hospitalization improved only with fluid resuscitation -Nephrology was consulted and management for nephrology -Complete etiology is unclear at this time Recent Proteus urinary tract infection -Was at discharge were growing Proteus mirabilis that was sensitive to ceftriaxone -Patient was discharged on Keflex 500 mg twice daily to complete a total of 10 d ays. -Stop day on this is 09/29/2023--> will plan to stop after tomorrow's dosing unless repeat cultures are positive -Repeat cultures are pending Toxic/metabolic encephalopathy -Resolved -Status is again back to her baseline -Likely related to acute hyponatremia and acute UTI YANE -Resolved -Serum creatinine on presentation was 1.48 -Serum creatinine is back to normal today at 0.7H which appears to be her baseline -Continue to hold Lasix Leukocytosis -Mildly elevated however improving Thrombocytosis -Trending down -A.m. labs pending -Will trend Generalized weakness -Likely related to hyponatremia -Patient has an aide that is in her house 3 days a week -PT and OT are following -Patient refused placement at last hospitalization DM-2 -Hemoglobin A1c was performed in June and was less than 7 so patient appears to be well-controlled -Hold home Trulicity -Continue metformin -SSI -Accu-Cheks as ordered Hypertension -Home lisinopril is on hold--> restart with resolved YANE -Continue home metoprolol -Continue home hydralazine -Goal for her is less than 130/80 and blood pressure still remains markedly el evated running 140-160 systolic Hyperlipidemia -Continue home statin Bipolar disorder -Follows with psychiatry -Continue home medications Osteoporosis -Continue outpatient Prolia Seizure disorder -Continue home Depakote -Has hyperammonemia related to her Depakote and is on lactulose for this -Decrease lactulose to 10 mg daily -No concerns about encephalopathy be related to her ammonia as her ammonia level on presentation was only 42 COPD -does not take any home inhaler -If becomes short of breath could consider as needed albuterol History of urinary incontinence -Continue home medication Tobacco abuse -Nicotine replacement therapy if needed -Recommend cessation History of opiate abuse -Patient is followed with Dr. Lin at 180 -Patient received buprenorphine injection on 09/17/2023 which she receives monthly Morbid obesity -BMI is 42.7 -Recommend weight loss -Complicates treatment, prognosis, outcomes DVT prophylaxis -Enoxaparin 40 mg twice daily CODE STATUS -Full code however unverified at this time--> patient was full code at previous hospitalizations Charges/Coding Visit Charges Inpatient E&M: 88555 Subs Hosp L2
[2023-09-28 18:39] LABS: Sodium Level 131 mmol/L (136-145)
[2023-09-28] MEDS: lamoTRIgine 100 MG Tablet 200 MG PO (22:11)
[2023-09-28] MEDS: Metoprolol(XL)Succ 25 MG Tablet PO (22:13)
[2023-09-29] VITALS (7 sets, daily range): BP systolic 128–150; BP diastolic 75–95; PULSE 82–89; RESP 16; TEMP 36.4–36.7; O2SAT 92–95; BMI 41.4
[2023-09-29 00:43] LABS: Bedside Glucose 135 mg/dL (74-106)
[2023-09-29] MEDS: Acetaminophen 500 MG Tablet PO (01:03)
[2023-09-29] MEDS: hydrALAZINE 50 MG Tablet PO ×2 (05:09→15:08)
[2023-09-29 06:42] LABS: Bedside Glucose 116 mg/dL (74-106)
[2023-09-29 07:54] LABS: Pathologist Review Reviewed
[2023-09-29 08:31] LABS: Absolute Lymphocyte Count 1.23 X10^3/uL (0.83-4.51); Absolute Neutrophil Count 6.4 X10^3/uL (2.0-7.7); Basophil# 0.09 X10^3/uL; Eosinophil# 0.12 X10^3/uL; Eosinophils% 1.4 % (0-5); Hematocrit 38.3 % (37-47); Hemoglobin 12.4 g/dL (12.0-15.0); Lymphocyte # 1.23 X10^3/ul (0.83-4.51); Lymphocyte % 13.9 % (19-41); Mean Corp Hgb Conc 32.4 g/dL (32-36); Mean Corpuscular Hgb 30.3 pg (27.0-32.0); Mean Corpuscular Volume 93.6 fL (81-99); Mean Platelet Vol. 8.7 fl (6.2-12.0); Monocyte# 0.78 X10^3/uL; Monocyte% 8.8 % (0-10); NRBC Flagged by Analyzer 0 % (0-5); Neutrophil # 6.38 X10^3/uL (2.7-7.7); Neutrophil % 71.7 % (47-70); Platelet Count 477 K/mm3 (150-450); RBC Distribution Width CV 14.3 % (11.6-14.6); RBC Distribution Width SD 48.5 fl (35.1-43.9); Red Blood Count 4.09 M/mm3 (4.2-5.4); White Blood Count 8.9 K/mm3 (4.4-11.0)
[2023-09-29 09:07] LABS: Anion Gap 4 (5-15); BUN 6 mg/dL (7-18); Calcium,Total 9.1 mg/dL (8.5-10.1); Chloride 97 mmol/L (98-107); Creatinine, Serum 0.86 mg/dL (0.55-1.02); EST Glomerular Filtration Rate 69 mL/min (>60); Est Glom Filt Rate - Afr Amer 83 mL/min (>60); Glucose 111 mg/dL (74-106); Sodium Level 131 mmol/L (136-145)
--- NOTE | 2023-09-29 09:17 | CASEMGMT ---
CAROLYNE received a call from Carolyne Ponce, patient's [facility] [facility] onsite case manager. Carolyne asked that CAROLYNE send her d/c instructions when patient is discharged. Ambreen NASH
--- NOTE | 2023-09-29 10:11 | PCM.PN.REN ---
Subjective Subjective Sitting in chair. Denies any complaints. Hopeful to go home today. Objective Data Objective Data Vital Signs: Vital Signs Temp Pulse Resp BP Pulse Ox O2 Del Method 97.6 F L 82 16 128/75 H 92 Room Air 09/29/23 03:50 09/29/23 05:09 09/29/23 03:50 09/29/23 05:09 09/29/23 07:05 09/29/23 07:05 Oxygen Delivery Method Room Air Weight: 96.3 kg Body Mass Index (BMI) 41.4 Intake & Output: Intake and Output for Last 24 Hours 09/27/23 09/28/23 09/29/23 23:59 23:59 23:59 Intake Total 981.67 / 981.67 1020 / 1370 600 / 600 Output Total 1850 / 1850 400 / 800 700 / 700 Balance -868.33 / -868.33 620 / 570 -100 / -100 Lab / Micro Data 09/29/23 07:45 09/29/23 07:45 Labs: Laboratory Results - last 24 hr 09/27/23 05:48: Diff Path Review Reviewed 09/28/23 11:53: POC Glucose 139 H 09/28/23 12:11: Sodium 128 L 09/28/23 16:14: POC Glucose 136 H 09/28/23 18:20: Sodium 131 L 09/28/23 22:21: POC Glucose 135 H 09/29/23 05:04: POC Glucose 116 H 09/29/23 07:45: WBC 8.9, RBC 4.09 L, Hgb 12.4, Hct 38.3, MCV 93.6, MCH 30.3, MCHC 32.4, RDW Std Deviation 48.5 H, RDW Coeff of Tami 14.3, Plt Count 477 H, MPV 8.7, Immature Gran % (Auto) 3.200 H, Neut % (Auto) 71.7 H, Lymph % (Auto) 13.9 L, [place] % (Auto) 8.8, Eos % (Auto) 1.4, Baso % (Auto) 1.0, Absolute Neuts (auto) 6.4, Absolute Lymphs (auto) 1.23, Nucleated RBC % 0, Sodium 131 L, Potassium 4.0, Chloride 97 L, Carbon Dioxide 30.0, Anion Gap 4 L, BUN 6 L, Creatinine 0.86, Estim Creat Clear Calc 43.10, Est GFR (MDRD) Af Amer 83, Est GFR (MDRD) Non-Af 69, BUN/Creatinine Ratio 7.0 L, Glucose 111 H, Calcium 9.1 Micro: Microbiology 09/27/23 06:35 Urine Catheter - Catheter Urine Culture - Final Culture exhibits no growth. 09/27/23 07:05 Blood Culture (Wb) - Right Forearm Blood Culture - Preliminary No growth in 48 hours. 09/27/23 06:50 Blood Culture (Wb) - Anticubital Left Blood Culture - Preliminary No growth in 48 hours. Physical Exam Narrative Alert awake oriented x 3 no obvious distress s1s2 no murmurs lungs clear abdomen soft, nontender no pitting edema Assessment & Plan Assessment/Plan (1) Hyponatremia: PLAN: - Acute hyponatremia; sodium was normal in April. Patient was admitted to the hospital a week ago with UTI and hyponatremia, sodium was 123 on admission and by time of discharge improved to 129 on 09/21; improved with fluids (she was discharged on lasix for LE edema). Then on 09/25 sodium 124. Patient was readmitted back to the hospital on 09/27 sodium 119 at 0548, this is cassi. Med list reviewed. ? SIADH related to depakote. She also has some LE edema for which she was discharged on lasix (lasix is not new, has been taking for some time), no breathing issues. Patient received bolus of 3% normal saline Thursday, sodium improved 123 by noon, 125 at 2000 and sodium 127 by midnight. Yesterday serum sodium is 128--> 131 by 1820 last evening. Today sodium 131. Patient has been off lasix since admission. She does not have any worrisome symptoms of hyponatremia. Serum osmolality 266, TSH normal, urine osmo 105, urine sodium 20. - YANE with normal baseline creatinine. Serum creatinine 1.48 mg/dL on admission and today her creatinine is 0.86 UA no RBC, 10 occult blood, 15 protein. Okay to resume lisinopril at discharge -Okay for discharge per renal standpoint. Can keep off Lasix until seen in office for follow-up. Will arrange for hospital follow-up
[2023-09-29] MEDS: Lactulose 20 GM/30 ML UDC PO (10:37)
[2023-09-29] MEDS: Atorvastatin Calcium 80 MG Tablet PO (10:37)
[2023-09-29] MEDS: Cephalexin 500 MG Capsule PO (10:37)
[2023-09-29] MEDS: Divalproex (ER) 500 MG Tablet PO (10:37)
[2023-09-29] MEDS: Metoprolol(XL)Succ 50 MG Tablet PO (10:38)
[2023-09-29] MEDS: Calcium Carbonate 500 MG Tablet PO (10:38)
[2023-09-29] MEDS: Mirabegron 50 MG TAB.ER.24H PO (10:38)
[2023-09-29] MEDS: Enoxaparin 40 MG/0.4 ML Syringe SC (10:38)
[2023-09-29] MEDS: Ascorbic Acid 500 MG Tablet PO (10:39)
[2023-09-29] MEDS: Lisinopril 40 MG Tablet PO (10:44)
[2023-09-29] MEDS: Tolterodine Tartrate 2 MG CAP.SA PO (10:44)
--- NOTE | 2023-09-29 10:45 | CASEMGMT ---
MARIBELL DRAKE chart review: Patient was admitted 09/18-09/21/23 for confusion, UTI, and hyponatremia. See assessment from 09/19/23. Patient was discharged to home with [facility]. Patient returned 09/27/23 for fall and AMS. MARIBELL DRAKE in to discuss discharge needs and readmission. Patient states she had taken too much of lactulose at home and had diarrhea. She then took anti-diarrheal medication to stop loose stools. Patient states that she followed up with PCP last Thursday. Patient states she was taking her other medications correctly. Patient states [facility] had been to see patient. Patient wishes to discharge home with resumption of HHC with [facility]. Patient denied further needs. CM will continue to follow this patient and plan for a safe discharge.
[2023-09-29] MEDS: Nystatin Powder 15gm Bottle 1 APPLIC TOPICAL (10:54)
[2023-09-29 11:14] LABS: Bedside Glucose 134 mg/dL (74-106)
--- NOTE | 2023-09-29 12:40 | PCM.DC.SUM ---
Providers Date of Admission: 09/27/23 Date of Discharge: 09/29/23 Primary Care Physician: Dr. Esperanza Baird MD Consultations 09/27/23 08:40 Consult: Nephrology Routine Consulting Provider: Jourdan Stovall Reason for Consult: Severe hyponatremia EMERGENT Consult: No MD Notified: Yes Date Notified: 09/27/23 Time Notified: 08:41 Method of Notification: Verbal Reason For Visit: FALL, AMS Diagnosis Discharge Diagnosis (1) Hyponatremia: Status: Resolved Code(s): E87.1 - Hypo-osmolality and hyponatremia Medications at Discharge Home Medications acetaminophen 650 mg tablet,extended release (Tylenol Arthritis Pain) 650 mg PO Q12H PRN pain 01/23/21 Handicap Placard #1 ea 02/07/21 inhalational spacing device (POCKET CHAMBER spacer) #1 ea 06/26/21 buprenorphine 100 mg/0.5 mL solution,exten.rel.subcutaneous syringe 100 mg subcut QMONTH WITHDRAWAL SYMPTOM CONTROL 08/07/21 ascorbic acid (vitamin C) 500 mg capsule 500 mg PO DAILY vitamin 07/08/22 Incentive Spirometer #1 ea 08/05/22 ferrous sulfate 324 mg (65 mg iron) tablet,delayed release 324 mg PO Q OTHER DAY #90 tabs 11/17/22 metoprolol succinate 50 mg tablet,extended release 24 hr 50 mg PO DAILY #90 tabs 01/05/23 mirabegron 50 mg tablet,extended release 24 hr (Myrbetriq) 50 mg PO Q24H diabetic 05/07/23 metoprolol succinate 25 mg tablet,extended release 24 hr 25 mg PO QHS #90 tabs 05/08/23 rosuvastatin 40 mg tablet 40 mg PO DAILY #90 tabs 05/08/23 miconazole nitrate 2 % topical powder (Desenex) 1 applic topical BID #85 grams 07/10/23 blood sugar diagnostic (FreeStyle Lite Strips) #100 ea 07/15/23 blood-glucose meter (FreeStyle Lite Meter kit) #1 ea 07/15/23 lancets 28 gauge (FreeStyle Lancets) #200 ea 07/15/23 divalproex 500 mg tablet,extended release 24 hr 500 mg PO BID #60 tabs 07/21/23 lactulose 10 gram/15 mL oral solution 20 g (30 mL) PO DAILY #946 mL 07/22/23 dulaglutide 0.75 mg/0.5 mL subcutaneous pen injector (Trulicity) 0.75 mg subcut QWEEK diabeties 08/04/23 calcium carbonate 600 mg calcium (1,500 mg) tablet 600 mg PO BID #180 tabs 08/06/23 lisinopril 40 mg tablet 40 mg PO QAM blood pressure #90 tabs 08/28/23 nicotine 21 mg/24 hr daily transdermal patch 1 patch transdermal Q24H #28 ea 09/16/23 cariprazine 3 mg capsule (Vraylar) 3 mg PO Q24H depression 09/19/23 fesoterodine 4 mg tablet,extended release 24 hr 4 mg PO DAILY bladder spasms 09/19/23 lamotrigine 200 mg tablet 200 mg PO QHS depression 09/19/23 meloxicam 15 mg tablet 15 mg PO DAILY pain 09/19/23 hydralazine 50 mg tablet 50 mg PO TID #90 tabs 09/21/23 denosumab 60 mg/mL subcutaneous syringe (Prolia) 60 mg subcut [id number] #1 mL 09/25/23 metformin 500 mg tablet,extended release 24 hr 500 mg PO BID #60 tabs 09/25/23 Hospital Course Summary of Care Provided Hospital Course: Ms. Valentin is a 73-year-old female who presented emergency department [facility] on 09/27/2023 due to a fall and altered mental status. Patient had a recent hospitalization here from 09/18/2023 through 09/21/2023 for similar complaint. At that time, she was found to be hyponatremic and her sodium improved significantly with IV hydration. She was also found to have a urinary tract infection with Proteus and was discharged with Keflex. She represented with hyponatremia and altered mental status. She had been on her home antibiotics but given her confusion on presentation repeat cultures for blood and urine were obtained and found to be negative with no growth to date at the time of discharge.. Sodium was found to be 119 again and she was treated with hypertonic saline given her confusion on presentation. She was admitted to the telemetry floor for ongoing monitoring and nephrology was consulted. Nephrology was considering whether this is SIADH related to her Depakote use versus a fluid issue related to oral intake. The Depakote is not a new medication for her and she was on this at her last hospitalization and sodium improved despite this however she is on multiple antipsychotics related to her history of bipolar disease as well as Depakote for history of seizure disorder. Her sodiums were monitored carefully and she corrected appropriately. Per discussion with nephrology prior to discharge they recommended holding her Lasix and I did instruct her to limit her oral intake to 2 L daily of fluids. The patient did indicate that she feels the Lasix was started about 2 months ago. At the time of discharge her serum creatinine had been stable for 24 hours at 131. She will have follow-up with nephrology and they will call her for an appointment. I have asked her to follow-up with her primary care physician in 2 weeks. She was reevaluated by physical therapy and they again felt she could go home with home health care which had already been set up to her last hospitalization. Antibiotics for her UTI from her last hospitalization or completed on the day of discharge so they were discontinued from her home med reconciliation as well as Lasix. She will have follow-up lab with nephrology appointment. Discharge diagnoses: Acute hyponatremia Recent Proteus UTI-resolved Toxic/metabolic encephalopathy-resolved YANE-resolved Leukocytosis-resolved Thrombocytosis-resolving Generalized weakness DM-2 Hypertension Hyperlipidemia Bipolar disorder Osteoporosis Seizure disorder COPD History of urinary incontinence Tobacco abuse History of opiate abuse Morbid obesity Physical Exam Const alert, oriented x3 and no apparent distress; Negative for average body habitus or healthy appearing Constitutional Narrative: Older, white female, appears older than stated age, morbidly obese, sitting up in a chair at the bedside, appears comfortable and nontoxic, watching television, anxious to go home General Appearance: cooperative, comfortable, well kempt and well developed Orientation / Consciousness: awake, oriented to person, oriented to place and oriented to time Exam Limitations: no limitations Nutritional Appearance: morbidly obese HEENT normocephalic, head/scalp atraumatic and moist oral mucous membranes HEENT Narrative: Mild hearing loss, dentition is poor, Mallampati is 3, no Eyes PERRL, EOMs intact bilaterally and conjunctivae normal Eyes Narrative: No scleral icterus Neck no lymphadenopathy and supple Neck Narrative: Neck is short and thick, trachea midline, no thyroid enlargement Resp normal respiratory effort, no retractions, no use of accessory muscles and clear to auscultation bilaterally Auscultation: Negative for rales, rhonchi or wheezes Cardio regular rate, regular rhythm, S1 normal heart sound, S2 normal heart sound, no murmurs, no rub, no gallops and no clicks GI normal to inspection, nondistended, normoactive bowel sounds, soft to palpation and non-tender Extremity no clubbing, cyanosis or edema Extremity Narrative: Pedal pulses are 2+ Skin no rashes or lesions noted, no wounds, skin turgor normal and no jaundice Neuro oriented x3, moves all extremities and no focal motor deficits Speech: speech normal Psych affect normal Psych Narrative: Very pleasant, interacts appropriately, eye contact is good Weight / BMI Weight Weight: 96.3 kg Body Mass Index (BMI) 41.4 ABG / Lab / Microbiology Data 09/29/23 07:45 09/29/23 07:45 Laboratory: Laboratory Results - last 24 hr 09/27/23 05:48: Diff Path Review Reviewed 09/28/23 16:14: POC Glucose 136 H 09/28/23 18:20: Sodium 131 L 09/28/23 22:21: POC Glucose 135 H 09/29/23 05:04: POC Glucose 116 H 09/29/23 07:45: WBC 8.9, RBC 4.09 L, Hgb 12.4, Hct 38.3, MCV 93.6, MCH 30.3, MCHC 32.4, RDW Std Deviation 48.5 H, RDW Coeff of Tami 14.3, Plt Count 477 H, MPV 8.7, Immature Gran % (Auto) 3.200 H, Neut % (Auto) 71.7 H, Lymph % (Auto) 13.9 L, [place] % (Auto) 8.8, Eos % (Auto) 1.4, Baso % (Auto) 1.0, Absolute Neuts (auto) 6.4, Absolute Lymphs (auto) 1.23, Nucleated RBC % 0, Sodium 131 L, Potassium 4.0, Chloride 97 L, Carbon Dioxide 30.0, Anion Gap 4 L, BUN 6 L, Creatinine 0.86, Estim Creat Clear Calc 43.10, Est GFR (MDRD) Af Amer 83, Est GFR (MDRD) Non-Af 69, BUN/Creatinine Ratio 7.0 L, Glucose 111 H, Calcium 9.1 09/29/23 10:57: POC Glucose 134 H Microbiology: Microbiology 09/27/23 06:35 Urine Catheter - Catheter Urine Culture - Final Culture exhibits no growth. 09/27/23 07:05 Blood Culture (Wb) - Right Forearm Blood Culture - Preliminary No growth in 48 hours. 09/27/23 06:50 Blood Culture (Wb) - Anticubital Left Blood Culture - Preliminary No growth in 48 hours. D/C Instructions Discharge Diet: Low fat / Low cholesterol, 1800 Calorie Control Diet and - (Limit fluid intake to 2 L a day) Discharge Activity: Return to Normal Activity Meaningful Use Info Meaningful Use Diagnoses (Choose all that apply): None applicable Discharge Plan Admission Admit Date/Time: 09/27/23 08:28 Primary Reason for Your Visit: Acute confusion/fall Attending Provider: Mehreen Denney Primary Care Provider: Esperanza Baird Consulting Providers: Jourdan Stovall; Mamadou Torres Discharge Orders/Prescriptions Prescriptions: Continued acetaminophen [Tylenol Arthritis Pain] 650 mg tablet extended release 650 mg PO Q12H PRN (Reason: pain) buprenorphine 100 mg/0.5 mL solution, extended rel syringe 100 mg subcut QMONTH ascorbic acid (vitamin C) 500 mg capsule 500 mg PO DAILY (DME) Incentive Spirometer See Rx Instructions .Route .MEDSUPPLY Qty: 1 0RF Rx Instructions: As directed ferrous sulfate 324 mg (65 mg iron) tablet,delayed release (DR/EC) 324 mg PO Q OTHER DAY Qty: 90 2RF divalproex 500 mg tablet extended release 24 hr 500 mg PO BID Qty: 60 7RF lactulose 10 gram/15 mL solution 20 g PO DAILY Qty: 946 7RF Myrbetriq 50 mg tablet extended release 24 hr 50 mg PO Q24H Trulicity 0.75 mg/0.5 mL pen injector 0.75 mg subcut QWEEK metformin 500 mg tablet extended release 24 hr 500 mg PO BID Qty: 60 3RF Prolia 60 mg/mL syringe 60 mg subcut [id number] Qty: 1 2RF fesoterodine 4 mg tablet extended release 24 hr 4 mg PO DAILY meloxicam 15 mg tablet 15 mg PO DAILY lamotrigine 200 mg tablet 200 mg PO QHS Rx Instructions: TAKE ONE TABLET BY MOUTH AT BEDTIME Vraylar 3 mg capsule 3 mg PO Q24H Rx Instructions: TAKE ONE CAPSULE BY MOUTH EVERY DAY hydralazine 50 mg tablet 50 mg PO TID Qty: 90 1RF (DME) Handicap Placard See Rx Instructions .ROUTE .MEDSUPPLY Qty: 1 0RF Rx Instructions: As directed, length of time 5 years (DME) POCKET CHAMBER Spacer See Rx Instructions .ROUTE .MEDSUPPLY Qty: 1 0RF Rx Instructions: As directed metoprolol succinate 50 mg tablet extended release 24 hr 50 mg PO DAILY Qty: 90 3RF Rx Instructions: Take with 25 mg for a total daily dose of 75 mg metoprolol succinate 25 mg tablet extended release 24 hr 25 mg PO QHS Qty: 90 2RF rosuvastatin 40 mg tablet 40 mg PO DAILY Qty: 90 2RF miconazole nitrate [Desenex] 2 % powder 1 applic topical BID Qty: 85 4RF (DME) FreeStyle Lite Strips Strip See Rx Instructions .MEDSUPPLY Qty: 100 3RF Rx Instructions: check blood glucose daily for type 2 DM (DME) blood-glucose meter [FreeStyle Lite Meter] Kit See Rx Instructions .MEDSUPPLY Qty: 1 0RF Rx Instructions: As directed, check blood glucose daily for type 2 DM (DME) lancets [FreeStyle Lancets] 28 gauge misc See Rx Instructions .MEDSUPPLY Qty: 200 3RF Rx Instructions: check blood glucose daily for type 2 DM calcium carbonate 600 mg calcium (1,500 mg) tablet 600 mg PO BID Qty: 180 3RF lisinopril 40 mg tablet 40 mg PO QAM Qty: 90 2RF nicotine 21 mg/24 hr patch 24 hour 1 patch transdermal Q24H Qty: 28 2RF Hold Instructions: Pt has been DC'd Discontinued cephalexin 500 mg capsule 500 mg PO BID Qty: 16 0RF furosemide [Lasix] 20 mg tablet 20 mg PO DAILY Qty: 90 2RF Referrals / Follow Up: Esperanza Baird MD [Primary Care Provider] - Within 2 Weeks Jourdan Stovall MD [Med Staff - Consulting] - See Referral Note (Office should call you to set up a follow-up appointment) Disposition Disposition (needs filled in before D/C Order can be placed): Home Health Service Charges/Coding Visit Charges Inpatient E&M: 00322 Disch Hosp >30min
--- NOTE | 2023-09-29 13:09 | CASEMGMT ---
CAROLYNE faxed patient's d/c instructions to Carolyne Ponce at [facility]. Ambreen NASH
--- NOTE | 2023-09-29 13:32 | PHA.DC_ITS ---
Pharmacy PR Med Reconciliation Pharmacy Service has performed discharge medication reconciliation for this patient. The patient's discharge medication list was reviewed for discrepancies and discrepancies were resolved. Medications at Discharge Home Medications acetaminophen 650 mg tablet,extended release (Tylenol Arthritis Pain) 650 mg PO Q12H PRN pain 01/23/21 Handicap Placard #1 ea 02/07/21 inhalational spacing device (POCKET CHAMBER spacer) #1 ea 06/26/21 buprenorphine 100 mg/0.5 mL solution,exten.rel.subcutaneous syringe 100 mg subcut QMONTH WITHDRAWAL SYMPTOM CONTROL 08/07/21 ascorbic acid (vitamin C) 500 mg capsule 500 mg PO DAILY vitamin 07/08/22 Incentive Spirometer #1 ea 08/05/22 ferrous sulfate 324 mg (65 mg iron) tablet,delayed release 324 mg PO Q OTHER DAY supplement #90 tabs 11/17/22 metoprolol succinate 50 mg tablet,extended release 24 hr 50 mg PO DAILY blood p ressure #90 tabs 01/05/23 mirabegron 50 mg tablet,extended release 24 hr (Myrbetriq) 50 mg PO Q24H diabetic 05/07/23 metoprolol succinate 25 mg tablet,extended release 24 hr 25 mg PO QHS blood perssure #90 tabs 05/08/23 rosuvastatin 40 mg tablet 40 mg PO DAILY cholesterol #90 tabs 05/08/23 miconazole nitrate 2 % topical powder (Desenex) 1 applic topical BID skin health #85 grams 07/10/23 blood sugar diagnostic (FreeStyle Lite Strips) #100 ea 07/15/23 blood-glucose meter (FreeStyle Lite Meter kit) #1 ea 07/15/23 lancets 28 gauge (FreeStyle Lancets) #200 ea 07/15/23 divalproex 500 mg tablet,extended release 24 hr 500 mg PO BID seizure #60 tabs 07/21/23 lactulose 10 gram/15 mL oral solution 20 g (30 mL) PO DAILY laxative #946 mL 07/22/23 dulaglutide 0.75 mg/0.5 mL subcutaneous pen injector (Trulicity) 0.75 mg subcut QWEEK diabeties 08/04/23 calcium carbonate 600 mg calcium (1,500 mg) tablet 600 mg PO BID supplement #180 tabs 08/06/23 lisinopril 40 mg tablet 40 mg PO QAM blood pressure #90 tabs 08/28/23 nicotine 21 mg/24 hr daily transdermal patch 1 patch transdermal Q24H to stop smoking #28 ea 09/16/23 cariprazine 3 mg capsule (Vraylar) 3 mg PO Q24H depression 09/19/23 fesoterodine 4 mg tablet,extended release 24 hr 4 mg PO DAILY bladder spasms 09/19/23 lamotrigine 200 mg tablet 200 mg PO QHS depression 09/19/23 meloxicam 15 mg tablet 15 mg PO DAILY pain 09/19/23 hydralazine 50 mg tablet 50 mg PO TID blood pressure #90 tabs 09/21/23 denosumab 60 mg/mL subcutaneous syringe (Prolia) 60 mg subcut [id number] bone health #1 mL 09/25/23 metformin 500 mg tablet,extended release 24 hr 500 mg PO BID diabetes #60 tabs 09/25/23
[2023-09-29] MEDS: Ferrous Sulfate 325 MG Tablet PO (15:09)
--- NOTE | 2023-09-29 15:40 | CASEMGMT ---
Patient has order for discharge. RN CM in to discuss needs at discharge. Patient to discharge home with resumption of [facility]. Paitent denies further questions or concerns. RN VIDAL called and updated [facility] regarding discharge. Start of care planned for . MARIBELL DRAKE updated patient and discharge plan.
== END 2023-09-29 17:41 | disposition home health service (06) | DRG 640 ==
LOC: ED 08:32 → PCU 12:49
PROVIDERS: Nurse Practitioner Adult Health; Admitting Provider Internal Medicine; Emergency Provider Emergency Medicine; PCP Internal Medicine; Visit Provider Internal Medicine
DX: E87.1 Hypo-osmolality and hyponatremia (principal); G92.8 Other toxic encephalopathy; N17.9 Acute kidney failure, unspecified; Z68.41 Body mass index [BMI] 40.0-44.9, adult; E11.9 Type 2 diabetes mellitus without complications; E66.01 Morbid (severe) obesity due to excess calories; D72.829 Elevated white blood cell count, unspecified; E78.5 Hyperlipidemia, unspecified; J44.9 Chronic obstructive pulmonary disease, unspecified; G40.909 Epilepsy, unspecified, not intractable, without status epilepticus; F31.9 Bipolar disorder, unspecified; F11.11 Opioid abuse, in remission; I10 Essential (primary) hypertension; S50.311A Abrasion of right elbow, initial encounter; S00.03XA Contusion of scalp, initial encounter; F17.210 Nicotine dependence, cigarettes, uncomplicated; W06.XXXA Fall from bed, initial encounter; S80.01XA Contusion of right knee, initial encounter; R32 Unspecified urinary incontinence; T42.6X5A Adverse effect of other antiepileptic and sedative-hypnotic drugs, initial encounter; Z23 Encounter for immunization; M81.0 Age-related osteoporosis without current pathological fracture; R53.1 Weakness; Z79.84 Long term (current) use of oral hypoglycemic drugs; Z79.899 Other long term (current) drug therapy
CPT/HCPCS: 36415; 70450; 71045; 72125; 72170; 80048; 80053; 80076; 80164; 80307; 81001; 82077; 82140; 82436; 82542; 82570; 82803; 82962; 83605; 83735; 83930; 83935; 84100; 84133; 84145; 84156; 84295; 84300; 84443; 85025; 85610; 85730; 87040; 87086; 93005; 94640; 94668; 97162; 97166; 97535; 99252; 99285; J7040; J7050; 90662; A4216; G0463

== ENCOUNTER 2023-10-02 19:40 | Emergency (ER) | payer MEDICARE, MEDICAID, SELFPAY ==
[2023-10-02 19:41] VITALS: BP 126/79; PULSE 89; RESP 16; TEMP 36.2; O2SAT 94; BMI 41.5
[2023-10-02 20:20] LABS: Absolute Lymphocyte Count 2.44 X10^3/uL (0.83-4.51); Absolute Neutrophil Count 9.6 X10^3/uL (2.0-7.7); Basophil% 0.7 % (0-1); Eosinophil# 0.13 X10^3/uL; Eosinophils% 0.9 % (0-5); Hematocrit 40.9 % (37-47); Hemoglobin 13.6 g/dL (12.0-15.0); Lymphocyte # 2.44 X10^3/ul (0.83-4.51); Lymphocyte % 17.8 % (19-41); Mean Corp Hgb Conc 33.3 g/dL (32-36); Mean Corpuscular Hgb 30.8 pg (27.0-32.0); Mean Corpuscular Volume 92.7 fL (81-99); Mean Platelet Vol. 8.4 fl (6.2-12.0); Monocyte# 0.91 X10^3/uL; Monocyte% 6.6 % (0-10); NRBC Flagged by Analyzer 0 % (0-5); Neutrophil # 9.57 X10^3/uL (2.7-7.7); Neutrophil % 69.8 % (47-70); Platelet Count 588 K/mm3 (150-450); RBC Distribution Width CV 13.6 % (11.6-14.6); RBC Distribution Width SD 46.4 fl (35.1-43.9); Red Blood Count 4.41 M/mm3 (4.2-5.4); White Blood Count 13.7 K/mm3 (4.4-11.0)
[2023-10-02 20:38] LABS: AST(SGOT) 38 U/L (15-37); Alanine Aminotransfer ALT/SGPT 56 U/L (13-56); Albumin, Serum 3.6 g/dL (3.2-5.0); Alkaline Phosphatase 83 U/L (45-117); Anion Gap 7 (5-15); BUN 11 mg/dL (7-18); BUN/Creat Ratio 11.9 RATIO (10-20); Bilirubin, Direct 0.14 mg/dL (0.00-0.30); Calcium,Total 9.6 mg/dL (8.5-10.1); Chloride 92 mmol/L (98-107); Creatinine, Serum 0.92 mg/dL (0.55-1.02); EST Glomerular Filtration Rate 64 mL/min (>60); Est Glom Filt Rate - Afr Amer 77 mL/min (>60); Estimated Creatinine Clearance 40.29 ml/min; Globulin 3.4 g/dL (2.2-4.2); Glucose 99 mg/dL (74-106); Potassium 4.2 mmol/L (3.5-5.1); Sodium Level 127 mmol/L (136-145)
--- NOTE | 2023-10-02 21:43 | CT_ITS ---
EXAM: CT ABDOMEN AND PELVIS WITH INTRAVENOUS CONTRAST CLINICAL INDICATION: abdominal pain TECHNIQUE: Helically acquired images were obtained of the abdomen and pelvis with intravenous contrast. This CT exam was performed using one or more of the following dose reduction techniques: automated exposure control, adjustment of the mA and/or kV according to patient size, and/or use of iterative reconstruction technique. CONTRAST: IV 100mL [id number] COMPARISON: 08/01/2022. FINDINGS: LOWER THORAX: Calcified granuloma right lower lobe. No cardiomegaly. No significant pericardial effusion. ABDOMEN: LIVER: Unremarkable. Homogeneous. No focal mass. GALLBLADDER AND BILE DUCTS: Unremarkable. No calcified gallstones. No gallbladder distention or wall edema. No intra- or extrahepatic biliary ductal dilation. PANCREAS: Unremarkable. No focal cystic or solid mass. SPLEEN: Multiple calcified granulomas in the spleen. Spleen is otherwise unremarkable. ADRENALS: Unremarkable. No nodules. KIDNEYS AND URETERS: 1.4 cm left renal cyst. Kidneys are was unremarkable. No stones or hydronephrosis. Normal renal size and position. STOMACH AND BOWEL: Unremarkable. No stomach or bowel distention. No focal inflammatory change. PELVIS: APPENDIX: No evidence of acute appendicitis. BLADDER: Unremarkable. REPRODUCTIVE: Unremarkable as visualized. No mass. ABDOMEN and PELVIS: INTRAPERITONEAL SPACE: Unremarkable. No ascites or other fluid collection. No free air. BONES/JOINTS: Unremarkable. No suspicious lytic or blastic abnormality. SOFT TISSUES: Unremarkable. No discrete abdominal or pelvic wall hernia. VASCULATURE: Unremarkable. Abdominal aorta is normal in caliber. LYMPH NODES: Unremarkable. No enlarged lymph nodes. CT/Abdomen/Pelvis W IV Cont ONLY IMPRESSION: No acute findings in the abdomen or pelvis. Electronically Signed: Keila Lugo MD at 22:53 EST Reading Location ID and State: [id number] / Tel , Service support ,
[2023-10-02] MEDS: 0.9% Normal Saline (1000mL) 1,000 ML 999 ML IV (21:58)
[2023-10-02 22:29] LABS: Valproic Acid (Depakene) Level 84 ug/mL (50-100)
[2023-10-02 22:29] LABS: Bacteria 0 SEEN /hpf (None Seen); Mucous, Urine 0 SEEN /hpf (<or=2+)
[2023-10-02 22:32] LABS: Color, Urine Yellow (Yellow); Glucose, Dipstick Normal (Normal); Ketone-Dipstick Negative (Negative); Leukocyte Esterase-Dipstick Negative /ul (Negative); Nitrite-Dipstick Negative (Negative); Occult Blood-Urine 25 /ul (Negative); Protein-Dipstick Negative (Negative); Specific Gravity, Urine 1.005 (1.002-1.030); Urine Bilirubin Dipstick Negative (Negative); Urine Clarity Clear (Clear); Urine Urobilinogen Normal (Normal)
[2023-10-02 22:44] LABS: Red Blood Cells-Urine 0-5 SEEN /hpf (0-5); Squamous Epithelial Cells - UA 5-10 SEEN /hpf (5-10); White Blood Cells 0-5 SEEN /hpf (0-5)
--- NOTE | 2023-10-02 23:05 | ED.VIS.GI ---
HPI HPI - GI History of Present Illness Chief Complaint: Constipation Narrative Narrative: Patient presenting with confusion. She states he is unable to focus although she is alert and awake and she is oriented x 3. She is able to tell me that she is not been feeling well and has some abdominal pain and she has been constipated. She takes lactulose on a regular basis for hyperammonemia and encephalopathy. She has not missed any doses. She takes this once a day. She is concerned her lactulose might be high because she was told if she was confused that may be the reason. Patient also concerned her electrolytes could be off. She denies any black or bloody stools. She did not take any other laxatives because she did not want to have diarrhea. No fevers, chills. [facility] Medical History Abdominal pain Actinic keratoses Anemia Arthritis Atypical chest pain Back problem Basal cell carcinoma of right forehead Basal cell carcinoma of right medial cheek Basal cell carcinoma of upper lip Benign neoplasm of skin of cheek Bilateral lower extremity edema Bladder disease Cancer COPD (chronic obstructive pulmonary disease) Cutaneous candidiasis DDD (degenerative disc disease) Debility Dermatitis Diabetes Dietary restriction Dissociative identity disorder Dizziness Drug abuse Flu vaccine need Frequent falls Gastric reflux Hemangioma of face Hepatitis High cholesterol History of edema History of stress test History of UTI Hypertension Injury of back Injury of head and neck Intertrigo Intradermal nevus Kidney disease Kidney failure Left ankle pain Left wrist fracture Loose, teeth Low iron Manic episode Morbid obesity Multiple personalities Neoplasm of skin of eyelid Neoplasm of skin of nose Neurofibroma of neck Obesity (BMI 30-39.9) Osteoarthritis Osteoporosis Panic attacks Prediabetes Primary osteoarthritis, left shoulder Rib pain on right side Seizures Shortness of breath on exertion Substance abuse Tumors Type 2 diabetes mellitus Urinary incontinence Venous insufficiency of both lower extremities Walker as ambulation aid Wears glasses Weight gain Home Medications acetaminophen 650 mg tablet,extended release (Tylenol Arthritis Pain) 650 mg PO Q12H PRN pain 01/23/21 [History Last Taken Unknown] Handicap Placard #1 ea 02/07/21 [Rx Last Taken Unknown] inhalational spacing device (POCKET CHAMBER spacer) #1 ea 06/26/21 [Rx Last Taken Unknown] buprenorphine 100 mg/0.5 mL solution,exten.rel.subcutaneous syringe 100 mg subcut QMONTH WITHDRAWAL SYMPTOM CONTROL 08/07/21 [History Last Taken 09/17/23] ascorbic acid (vitamin C) 500 mg capsule 500 mg PO DAILY vitamin 07/08/22 [History Last Taken Unknown] Incentive Spirometer #1 ea 08/05/22 [Rx Last Taken Unknown] ferrous sulfate 324 mg (65 mg iron) tablet,delayed release 324 mg PO Q OTHER DAY supplement #90 tabs 11/17/22 [Rx Last Taken Unknown] metoprolol succinate 50 mg tablet,extended release 24 hr 50 mg PO DAILY blood pressure #90 tabs 01/05/23 [Rx Last Taken Unknown] mirabegron 50 mg tablet,extended release 24 hr (Myrbetriq) 50 mg PO Q24H diabetic 05/07/23 [History Last Taken Unknown] metoprolol succinate 25 mg tablet,extended release 24 hr 25 mg PO QHS blood perssure #90 tabs 05/08/23 [Rx Last Taken Unknown] rosuvastatin 40 mg tablet 40 mg PO DAILY cholesterol #90 tabs 05/08/23 [Rx Last Taken Unknown] miconazole nitrate 2 % topical powder (Desenex) 1 applic topical BID skin health #85 grams 07/10/23 [Rx Last Taken Unknown] blood sugar diagnostic (FreeStyle Lite Strips) #100 ea 07/15/23 [Rx Last Taken Unknown] blood-glucose meter (FreeStyle Lite Meter kit) #1 ea 07/15/23 [Rx Last Taken Unknown] lancets 28 gauge (FreeStyle Lancets) #200 ea 07/15/23 [Rx Last Taken Unknown] divalproex 500 mg tablet,extended release 24 hr 500 mg PO BID seizure #60 tabs 07/21/23 [Rx Last Taken Unknown] lactulose 10 gram/15 mL oral solution 20 g (30 mL) PO DAILY laxative #946 mL 07/22/23 [Rx Last Taken Unknown] calcium carbonate 600 mg calcium (1,500 mg) tablet 600 mg PO BID supplement #180 tabs 08/06/23 [Rx Last Taken Unknown] lisinopril 40 mg tablet 40 mg PO QAM blood pressure #90 tabs 08/28/23 [Rx Last Taken Unknown] nicotine 21 mg/24 hr daily transdermal patch 1 patch transdermal Q24H to stop smoking #28 ea 09/16/23 [Rx Last Taken Unknown] cariprazine 3 mg capsule (Vraylar) 3 mg PO Q24H depression 09/19/23 [History Last Taken Unknown] fesoterodine 4 mg tablet,extended release 24 hr 4 mg PO DAILY bladder spasms 09/19/23 [History Last Taken Unknown] lamotrigine 200 mg tablet 200 mg PO QHS depression 09/19/23 [History Last Taken Unknown] meloxicam 15 mg tablet 15 mg PO DAILY pain 09/19/23 [History Last Taken Unknown] hydralazine 50 mg tablet 50 mg PO TID blood pressure #90 tabs 09/21/23 [Rx Last Taken Unknown] denosumab 60 mg/mL subcutaneous syringe (Prolia) 60 mg subcut [id number] bone health #1 mL 09/25/23 [Rx Last Taken Unknown] metformin 500 mg tablet,extended release 24 hr 500 mg PO BID diabetes #60 tabs 09/25/23 [Rx Last Taken Unknown] Allergy/AdvReac Type Severity Reaction Status Date / Time iloperidone [From Fanapt] Allergy Severe Other Verified 09/27/23 05:47 paliperidone [From Invega] Allergy Severe increased Verified 09/27/23 05:47 psychiatric symptoms lurasidone [From Latuda] Allergy Other Verified 09/27/23 05:47 trazodone AdvReac Severe Other Verified 09/27/23 05:47 theophylline AdvReac Other Verified 09/27/23 05:47 Family History Brother Colon cancer Lung cancer Aunt Obesity Sister Obesity Mother Rheumatoid arthritis Father Alzheimer disease Brother Alzheimer disease Surgical History H/O hernia repair H/O: hysterectomy History of 3 sections History of basal cell carcinoma excision History of History of carpal tunnel surgery History of cholecystectomy History of colonoscopy History of endoscopy History of excision of lesion History of hernia repair Social History Smoking Status: Former smoker Tobacco: How many years used: 20 how long ago did patient quit smoking: second hand exposure: No alcohol intake: never substance use type: former substance user Date of last use: Cocaine what type of physical activity do you participate in: none vince/nondenominational: Yarsani seatbelt use: always ROS ROS ED Constitutional Constitutional ED: Denies chills, fever(s) or sweats Eyes Eyes: Denies blurry vision or change in vision ENT ENT ED: Denies ear pain or sore throat Cardiovascular Cardiovascular: Denies chest pain, palpitations or racing heartbeat Respiratory/Chest Respiratory/Chest: Denies cough, dyspnea or sputum Gastrointestinal Gastrointestinal: Reports abdominal pain and constipation; Denies diarrhea, nausea or vomiting Genitourinary Genitourinary ED: Denies dysuria, hematuria or urinary frequency Musculoskeletal Musculoskeletal: Denies arthralgias, myalgias or neck pain Integumentary Denies abscess, Abrasions or rash Neurologic Neurologic: Denies headache(s), paresthesias or weakness Psychiatric Psychiatric: Denies anxiety, depression, suicidal ideation or suicidal thoughts Endocrine Endocrinology: Denies polydipsia or polyuria EXAM Physical Exam Const Vital Signs: 10/02/23 19:41 Temperature 97.2 F L Temperature Source Temporal Pulse Rate 89 Respiratory Rate 16 Blood Pressure 126/79 H Blood Pressure Mean 94 Pulse Ox 94 Oxygen Delivery Method Room Air General Appearance ED: Negative for pallor HEENT Reports moist mucous membranes normocephalic and atraumatic Eyes PERRL and EOMs intact bilaterally Resp normal respiratory effort Auscultation: Negative for rales, rhonchi or wheezes Cardio regular rate and regular rhythm GI non-distended Palpation: tender LLQ and RLQ Back/Spine no CVA tenderness Neuro CN's II-XII intact bilaterally, moves all extremities and no sensory deficits noted Sensorium / Orientation: alert Motor Exam: strength 5/5 throughout Psych mental status grossly normal Skin no wounds General Skin Exam: Negative for jaundice or pallor MDM MDM MDM Narrative Medical decision making narrative: Patient presenting with what she believes is confusion although she is alert and oriented x 3. She has no focal neurologic deficits. Patient concerned she might be having high ammonia levels. She is a history of hyponatremia as well. CBC was obtained assess white blood cell count, hemoglobin, platelets. CMP to assess liver function, renal function, electrolytes, glucose. Ammonia to assess for hyperammonemia urinalysis to assess for UTI patient is on Depakote so we will check a Depakote level. Ultimately all of her lab work came back within normal limits with exception of a slight leukocytosis of 13.7 which is actually low for her. CT of the abdomen pelvis with IV contrast shows no acute process. Patient was given a liter normal saline. Since her workup is ultimately normal. Discussed lab work findings and imaging with patient. She feels comfortable going home but she wants her daughter to pick her up. She states her daughter can get her in the house. Impression: 1. Confusion 2. Hyponatremia 3. Constipation Lab Data Labs: Laboratory Results - last 24 hr 10/02/23 10/02/23 10/02/23 20:00 21:55 22:15 WBC 13.7 H RBC 4.41 Hgb 13.6 Hct 40.9 MCV 92.7 MCH 30.8 MCHC 33.3 RDW Std Deviation 46.4 H RDW Coeff of Tami 13.6 Plt Count 588 H MPV 8.4 Immature Gran % (Auto) 4.200 H Neut % (Auto) 69.8 Lymph % (Auto) 17.8 L [place] % (Auto) 6.6 Eos % (Auto) 0.9 Baso % (Auto) 0.7 Absolute Neuts (auto) 9.6 H Absolute Lymphs (auto) 2.44 Nucleated RBC % 0 Sodium 127 L Potassium 4.2 Chloride 92 L Carbon Dioxide 28.0 Anion Gap 7 BUN 11 Creatinine 0.92 Estim Creat Clear Calc 40.29 Est GFR (MDRD) Af Amer 77 Est GFR (MDRD) Non-Af 64 BUN/Creatinine Ratio 11.9 Glucose 99 Calcium 9.6 Total Bilirubin 0.40 Direct Bilirubin 0.14 AST 38 H ALT 56 Alkaline Phosphatase 83 Ammonia 18.0 Total Protein 7.0 Albumin 3.6 Globulin 3.4 Urine Color Yellow Urine Clarity Clear Urine pH 7.0 Ur Specific [place] 1.005 Urine Protein Negative Urine Glucose (UA) Normal Urine Ketones Negative Urine Occult Blood 25 H Urine Nitrite Negative Urine Bilirubin Negative Urine Urobilinogen Normal Ur Leukocyte Esterase Negative Urine RBC 0-5 SEEN Urine WBC 0-5 SEEN Ur Squamous Epith Cells 5-10 SEEN Urine Bacteria 0 SEEN Urine Mucus 0 SEEN Valproic Acid 84 Radiography Diagnostic Testing: Clinical Impression(s) from Imaging Studies Abdomen/Pelvis CT 10/02/23 21:43 IMPRESSION: No acute findings in the abdomen or pelvis. Electronically Signed: Keila Lugo MD at 22:53 EST Reading Location ID and State: [id number] / Tel , Service support , Discharge Plan Triage Chief Complaint: Constipation ED Provider: Blayne Valentine Dx/Rx/DC Orders Prescriptions: No Action acetaminophen [Tylenol Arthritis Pain] 650 mg tablet extended release 650 mg PO Q12H PRN (Reason: pain) buprenorphine 100 mg/0.5 mL solution, extended rel syringe 100 mg subcut QMONTH ascorbic acid (vitamin C) 500 mg capsule 500 mg PO DAILY (DME) Incentive Spirometer See Rx Instructions .Route .MEDSUPPLY Qty: 1 0RF Rx Instructions: As directed ferrous sulfate 324 mg (65 mg iron) tablet,delayed release (DR/EC) 324 mg PO Q OTHER DAY Qty: 90 2RF divalproex 500 mg tablet extended release 24 hr 500 mg PO BID Qty: 60 7RF lactulose 10 gram/15 mL solution 20 g PO DAILY Qty: 946 7RF Myrbetriq 50 mg tablet extended release 24 hr 50 mg PO Q24H metformin 500 mg tablet extended release 24 hr 500 mg PO BID Qty: 60 3RF Prolia 60 mg/mL syringe 60 mg subcut [id number] Qty: 1 2RF fesoterodine 4 mg tablet extended release 24 hr 4 mg PO DAILY meloxicam 15 mg tablet 15 mg PO DAILY lamotrigine 200 mg tablet 200 mg PO QHS Rx Instructions: TAKE ONE TABLET BY MOUTH AT BEDTIME Vraylar 3 mg capsule 3 mg PO Q24H Rx Instructions: TAKE ONE CAPSULE BY MOUTH EVERY DAY hydralazine 50 mg tablet 50 mg PO TID Qty: 90 1RF (DME) Handicap Placard See Rx Instructions .ROUTE .MEDSUPPLY Qty: 1 0RF Rx Instructions: As directed, length of time 5 years (DME) POCKET CHAMBER Spacer See Rx Instructions .ROUTE .MEDSUPPLY Qty: 1 0RF Rx Instructions: As directed metoprolol succinate 50 mg tablet extended release 24 hr 50 mg PO DAILY Qty: 90 3RF Rx Instructions: Take with 25 mg for a total daily dose of 75 mg metoprolol succinate 25 mg tablet extended release 24 hr 25 mg PO QHS Qty: 90 2RF rosuvastatin 40 mg tablet 40 mg PO DAILY Qty: 90 2RF miconazole nitrate [Desenex] 2 % powder 1 applic topical BID Qty: 85 4RF (DME) FreeStyle Lite Strips Strip See Rx Instructions .MEDSUPPLY Qty: 100 3RF Rx Instructions: check blood glucose daily for type 2 DM (DME) blood-glucose meter [FreeStyle Lite Meter] Kit See Rx Instructions .MEDSUPPLY Qty: 1 0RF Rx Instructions: As directed, check blood glucose daily for type 2 DM (DME) lancets [FreeStyle Lancets] 28 gauge misc See Rx Instructions .MEDSUPPLY Qty: 200 3RF Rx Instructions: check blood glucose daily for type 2 DM calcium carbonate 600 mg calcium (1,500 mg) tablet 600 mg PO BID Qty: 180 3RF lisinopril 40 mg tablet 40 mg PO QAM Qty: 90 2RF nicotine 21 mg/24 hr patch 24 hour 1 patch transdermal Q24H Qty: 28 2RF Hold Instructions: Pt has been DC'd Primary Care Provider: Esperanza Baird Referrals: Esperanza Baird MD [Primary Care Provider] -
== END 2023-10-02 23:27 | disposition home or self-care (01) ==
PROVIDERS: Emergency Provider Student in an Organized Health Care Education/Training Program; PCP Internal Medicine; Visit Provider Student in an Organized Health Care Education/Training Program
DX: E87.1 Hypo-osmolality and hyponatremia (principal); J44.9 Chronic obstructive pulmonary disease, unspecified; E11.9 Type 2 diabetes mellitus without complications; R41.0 Disorientation, unspecified; K59.00 Constipation, unspecified; G93.40 Encephalopathy, unspecified; Z87.891 Personal history of nicotine dependence; Z79.899 Other long term (current) drug therapy
CPT/HCPCS: 74177; 80048; 80076; 80164; 81001; 82140; 85025; 96360; 99283; J7030; Q9967

== ENCOUNTER → 2023-10-08 | Outpatient (CLI) | payer MEDICARE, MEDICAID, SELFPAY ==
[2023-10-08 16:58] LABS: AST(SGOT) 17 U/L (15-37); Alanine Aminotransfer ALT/SGPT 25 U/L (13-56); Albumin, Serum 3.3 g/dL (3.2-5.0); Alkaline Phosphatase 94 U/L (45-117); Anion Gap 8 (5-15); BUN 16 mg/dL (7-18); BUN/Creat Ratio 13.8 RATIO (10-20); Calcium,Total 9.2 mg/dL (8.5-10.1); Chloride 94 mmol/L (98-107); Creatinine, Serum 1.16 mg/dL (0.55-1.02); EST Glomerular Filtration Rate 49 mL/min (>60); Est Glom Filt Rate - Afr Amer 59 mL/min (>60); Globulin 3.3 g/dL (2.2-4.2); Glucose 92 mg/dL (74-106); Potassium 4.5 mmol/L (3.5-5.1); Protein, Total 6.6 g/dL (6.4-8.2); Sodium Level 130 mmol/L (136-145)
== END | disposition home or self-care (01) ==
LOC: BIMLAB 14:56
PROVIDERS: PCP Internal Medicine; Visit Provider Physician Assistant
DX: E87.1 Hypo-osmolality and hyponatremia (principal)
CPT/HCPCS: 36415; 80053

== ENCOUNTER 2023-10-10 01:07 | Inpatient (IN) | payer MEDICARE, MEDICAID, SELFPAY ==
[2023-10-10] VITALS (8 sets, daily range): BP systolic 102–149; BP diastolic 72–96; PULSE 76–87; RESP 14–22; TEMP 36.3–36.6; O2SAT 93–97; BMI 45.3; BMI 41.0
--- NOTE | 2023-10-10 01:13 | EX.ED.DYSGE1 ---
HPI History of Present Illness Chief Complaint: Confusion Informant: patient Onset/Context/Timing Onset: Today Timing: Continuous Quality: Confused Location: Generalized Worsened by: Nothing Relieved by: Nothing Narrative Narrative: Patient presents with confusion that began tonight. Patient is a poor informant. Patient states that her life alert machine fell off of her table and broke. Patient states that this alerted EMS and they brought her to the emergency department. Patient denies any fevers or chills. Patient denies any chest pain or shortness of breath. Patient denies abdominal pain, nausea, or vomiting. Patient denies any urinary complaints. Patient is awake, alert, and oriented to person, place, year, and month. Patient does not know the day. [facility] Medical History Abdominal pain Actinic keratoses Anemia Arthritis Atypical chest pain Back problem Basal cell carcinoma of right forehead Basal cell carcinoma of right medial cheek Basal cell carcinoma of upper lip Benign neoplasm of skin of cheek Bilateral lower extremity edema Bladder disease Cancer COPD (chronic obstructive pulmonary disease) Cutaneous candidiasis DDD (degenerative disc disease) Debility Dermatitis Diabetes Dietary restriction Dissociative identity disorder Dizziness Drug abuse Flu vaccine need Frequent falls Gastric reflux Hemangioma of face Hepatitis High cholesterol History of edema History of stress test History of UTI Hypertension Injury of back Injury of head and neck Intertrigo Intradermal nevus Kidney disease Kidney failure Left ankle pain Left wrist fracture Loose, teeth Low iron Manic episode Morbid obesity Multiple personalities Neoplasm of skin of eyelid Neoplasm of skin of nose Neurofibroma of neck Obesity (BMI 30-39.9) Osteoarthritis Osteoporosis Panic attacks Prediabetes Primary osteoarthritis, left shoulder Rib pain on right side Seizures Shortness of breath on exertion Substance abuse Tumors Type 2 diabetes mellitus Urinary incontinence Venous insufficiency of both lower extremities Walker as ambulation aid Wears glasses Weight gain Home Medications acetaminophen 650 mg tablet,extended release (Tylenol Arthritis Pain) 650 mg PO Q12H PRN pain 01/23/21 [History Last Taken Unknown] Handicap Placard #1 ea 02/07/21 [Rx Last Taken Unknown] inhalational spacing device (POCKET CHAMBER spacer) #1 ea 06/26/21 [Rx Last Taken Unknown] buprenorphine 100 mg/0.5 mL solution,exten.rel.subcutaneous syringe 100 mg subcut QMONTH WITHDRAWAL SYMPTOM CONTROL 08/07/21 [History Last Taken 09/17/23] ascorbic acid (vitamin C) 500 mg capsule 500 mg PO DAILY vitamin 07/08/22 [History Last Taken Unknown] Incentive Spirometer #1 ea 08/05/22 [Rx Last Taken Unknown] ferrous sulfate 324 mg (65 mg iron) tablet,delayed release 324 mg PO Q OTHER DAY supplement #90 tabs 11/17/22 [Rx Last Taken Unknown] metoprolol succinate 50 mg tablet,extended release 24 hr 50 mg PO DAILY blood pressure #90 tabs 01/05/23 [Rx Last Taken Unknown] mirabegron 50 mg tablet,extended release 24 hr (Myrbetriq) 50 mg PO Q24H diabetic 05/07/23 [History Last Taken Unknown] metoprolol succinate 25 mg tablet,extended release 24 hr 25 mg PO QHS blood perssure #90 tabs 05/08/23 [Rx Last Taken Unknown] rosuvastatin 40 mg tablet 40 mg PO DAILY cholesterol #90 tabs 05/08/23 [Rx Last Taken Unknown] miconazole nitrate 2 % topical powder (Desenex) 1 applic topical BID skin health #85 grams 07/10/23 [Rx Last Taken Unknown] blood sugar diagnostic (FreeStyle Lite Strips) #100 ea 07/15/23 [Rx Last Taken Unknown] blood-glucose meter (FreeStyle Lite Meter kit) #1 ea 07/15/23 [Rx Last Taken Unknown] lancets 28 gauge (FreeStyle Lancets) #200 ea 07/15/23 [Rx Last Taken Unknown] divalproex 500 mg tablet,extended release 24 hr 500 mg PO BID seizure #60 tabs 07/21/23 [Rx Last Taken Unknown] lactulose 10 gram/15 mL oral solution 20 g (30 mL) PO DAILY laxative #946 mL 07/22/23 [Rx Last Taken Unknown] calcium carbonate 600 mg calcium (1,500 mg) tablet 600 mg PO BID supplement #180 tabs 08/06/23 [Rx Last Taken Unknown] lisinopril 40 mg tablet 40 mg PO QAM blood pressure #90 tabs 08/28/23 [Rx Last Taken Unknown] nicotine 21 mg/24 hr daily transdermal patch 1 patch transdermal Q24H to stop smoking #28 ea 09/16/23 [Rx Last Taken Unknown] cariprazine 3 mg capsule (Vraylar) 3 mg PO Q24H depression 09/19/23 [History Last Taken Unknown] fesoterodine 4 mg tablet,extended release 24 hr 4 mg PO DAILY bladder spasms 09/19/23 [History Last Taken Unknown] lamotrigine 200 mg tablet 200 mg PO QHS depression 09/19/23 [History Last Taken Unknown] meloxicam 15 mg tablet 15 mg PO DAILY pain 09/19/23 [History Last Taken Unknown] hydralazine 50 mg tablet 50 mg PO TID blood pressure #90 tabs 09/21/23 [Rx Last Taken Unknown] denosumab 60 mg/mL subcutaneous syringe (Prolia) 60 mg subcut [id number] bone health #1 mL 09/25/23 [Rx Last Taken Unknown] metformin 500 mg tablet,extended release 24 hr 500 mg PO BID diabetes #60 tabs 09/25/23 [Rx Last Taken Unknown] hydralazine 25 mg tablet 25 mg PO BID #60 tabs 10/08/23 [Rx Last Taken Unknown] Allergy/AdvReac Type Severity Reaction Status Date / Time iloperidone [From Fanapt] Allergy Severe Other Verified 10/08/23 13:39 paliperidone [From Invega] Allergy Severe increased Verified 10/08/23 13:39 psychiatric symptoms lurasidone [From Latuda] Allergy Other Verified 10/08/23 13:39 trazodone AdvReac Severe Other Verified 10/08/23 13:39 theophylline AdvReac Other Verified 10/08/23 13:39 Family History Brother Colon cancer Lung cancer Aunt Obesity Sister Obesity Mother Rheumatoid arthritis Father Alzheimer disease Brother Alzheimer disease Surgical History H/O hernia repair H/O: hysterectomy History of 3 sections History of basal cell carcinoma excision History of History of carpal tunnel surgery History of cholecystectomy History of colonoscopy History of endoscopy History of excision of lesion History of hernia repair Social History Smoking Status: Former smoker Tobacco: How many years used: 20 how long ago did patient quit smoking: second hand exposure: No alcohol intake: never substance use type: former substance user Date of last use: Cocaine what type of physical activity do you participate in: none vince/confucianist: Restorationist seatbelt use: always ROS ROS ED Constitutional Constitutional ED: Denies chills or fever(s) Eyes Eyes: Denies blurry vision or change in vision ENT ENT ED: Denies rhinorrhea or sore throat Cardiovascular Cardiovascular: Denies chest pain or palpitations Respiratory/Chest Respiratory/Chest: Denies cough or dyspnea Gastrointestinal Gastrointestinal: Denies nausea or vomiting Genitourinary Genitourinary ED: Denies dysuria or hematuria Musculoskeletal Musculoskeletal: Denies back pain or neck pain Integumentary Denies abscess or rash Neurologic Neurologic: Denies headache(s) or weakness Allergic/Immunologic Allergic/Immunologic ED: Denies mouth swelling or urticaria EXAM Physical Exam Const Vital Signs: 10/10/23 01:10 10/10/23 02:14 Temperature 97.4 F L 98 F Temperature Source Temporal Oral Pulse Rate 84 82 Respiratory Rate 22 H 22 H Blood Pressure 145/96 H 149/82 H Blood Pressure Mean 112 104 Pulse Ox 96 94 Oxygen Delivery Method Room Air Room Air Positive well nourished and well developed General Appearance ED: well developed and NAD HEENT Reports moist mucous membranes Neck supple and no JVD Resp normal respiratory effort and clear to auscultation bilaterally Cardio regular rate and regular rhythm GI non-tender and non-distended Palpation: soft Extremity normal to inspection General Extremety ED: Negative for edema or tenderness General Extremity: Negative for edema Neuro CN's II-XII intact bilaterally and no sensory deficits noted Sensorium / Orientation: alert and orientation impaired Motor Exam: strength 5/5 throughout MDM MDM MDM Narrative Medical decision making narrative: Differential diagnosis includes stroke, intracranial bleeding, electrolyte abnormality, dehydration, COVID-19 infection, influenza infection, viral upper respiratory infection, pneumonia, urinary tract infection, and sepsis. CT scan of the brain will be obtained to assess for stroke and intracranial bleeding. EKG will be obtained to assess for cardiac dysrhythmia and cardiac ischemia. Chest x-ray will be obtained to assess for pneumonia and pneumothorax. CBC will be obtained to assess for leukocytosis and anemia. Comprehensive metabolic profile will be obtained to assess for hepatic function, renal function, and electrolyte abnormality. Urinalysis will be obtained to assess for urinary tract infection and hematuria. Serum lactate will be obtained to assess for sepsis. Blood cultures will be obtained to assess for sepsis. Valproic acid level will be obtained to assess for valproic acid toxicity. Lab Data Attestation: I reviewed the patient's lab results. Lab results narrative: CBC was reviewed. There is a leukocytosis of 17.3. Platelets were slightly elevated at 478. The remainder is within normal limits. Comprehensive metabolic profile was reviewed. Sodium was slightly low at 124. The remainder is within normal limits. Valproic acid level was reviewed and was normal at 95. High-sensitivity troponin was reviewed and was normal at 19. Urinalysis was reviewed. There is a leukocyte esterase of 500 with positive nitrates. There are 10-25 white blood cells and 3+ bacteria. Labs: Laboratory Results - last 24 hr 10/10/23 10/10/23 01:30 02:10 WBC 17.3 H RBC 4.05 L Hgb 12.5 Hct 36.3 L MCV 89.6 MCH 30.9 MCHC 34.4 RDW Std Deviation 44.6 H RDW Coeff of Tami 13.6 Plt Count 478 H MPV 8.9 Immature Gran % (Auto) 1.000 H Neut % (Auto) 82.5 H Lymph % (Auto) 8.0 L [place] % (Auto) 8.0 Eos % (Auto) 0.2 Baso % (Auto) 0.3 Absolute Neuts (auto) 14.3 H Absolute Lymphs (auto) 1.38 Nucleated RBC % 0 Sodium 124 L Potassium 3.9 Chloride 89 L Carbon Dioxide 25.0 Anion Gap 10 BUN 12 Creatinine 0.86 Estim Creat Clear Calc 43.10 Est GFR (MDRD) Af Amer 84 Est GFR (MDRD) Non-Af 69 BUN/Creatinine Ratio 14.0 Glucose 102 Hemoglobin A1c 5.5 Serum Osmolality 261 L Lactic Acid 0.8 Calcium 8.3 L Total Bilirubin 0.50 AST 19 ALT 22 Alkaline Phosphatase 91 Troponin I High Sens 19 Total Protein 6.3 L Albumin 3.2 Globulin 3.1 Albumin/Globulin Ratio 1.0 Urine Color Yellow Urine Clarity Clear Urine pH 6.5 Ur Specific [place] 1.005 Urine Protein 30 H Urine Glucose (UA) Normal Urine Ketones 15 H Urine Occult Blood 50 H Urine Nitrite Positive H Urine Bilirubin Negative Urine Urobilinogen Normal Ur Leukocyte Esterase 500 H Urine RBC 0-5 SEEN Urine WBC 10-25 SEEN Ur Squamous Epith Cells 0-5 SEEN Urine Bacteria 3+ Urine Mucus 0 SEEN Urine Osmolality 155 Valproic Acid 95 Radiography Diagnostic Testing: Clinical Impression(s) from Imaging Studies Brain CT 10/10/23 01:41 IMPRESSION: 1. No acute intracranial abnormalities. 2. Age-related changes. Electronically Signed: Bradford Wellington MD at 3:14 EST Reading Location ID and State: [facility] / [place] Tel , Service support , Chest X-Ray 10/10/23 02:30 IMPRESSION: No acute findings in the chest. Electronically Signed: Bradford Wellington MD at 3:15 EST , CT scan of the brain was obtained. There is no acute intracranial abnormality. This was interpreted by the radiologist and was also independently reviewed by myself. Portable 1 view chest x-ray was obtained. On my independent interpretation, lung beltran are clear. There is normal cardiac silhouette. Bony thorax is normal. There is no acute process noted. Radiologist also interpreted the x-ray and agrees. EKG Initial EKG: Attestation: I personally reviewed and interpreted this EKG as follows: Interpretation: Sinus Rhythm (81) and No Acute Injury Pattern Comments: EKG was obtained. On my independent interpretation, it showed a normal sinus rhythm with a rate of 81. IN interval, QRS interval, and QTc intervals were all normal. [place] was normal. There are no acute ST or T wave changes. Prior EKG tracings: available for review Prior: Unchanged (09/27/2023) Treatment and Re-Evaluation :: Patient was given IV fluids. Patient was started on Rocephin. Patient was advised of her findings. Patient appeared to understand and was agreeable with the plan. Patient will be admitted to the hospital. Case will be discussed with the hospitalist for admission. Discharge Plan Dx/Rx/DC Orders Clinical Impression: Urinary tract infection, Obesity (BMI 30-39.9), Altered mental status Disposition Disposition: Acute Care Hospital [facility] Discharge Date/Time: 10/10/23 05:25
--- NOTE | 2023-10-10 01:41 | EKG12_ITS ---
Test Reason : DYSRHYTHMIA Blood Pressure : / mmHG Vent. Rate : 081 BPM Atrial Rate : 081 BPM P-R Int : 176 ms QRS Dur : 096 ms QT Int : 382 ms P-R-T Axes : 061 064 061 degrees QTc Int : 443 ms Normal sinus rhythm Normal ECG Confirmed by CORKY SEALS, FARHEEN ([id number]), editorial assistant ATUL BANEGAS ([id number]) on 10/20/2023 8:47:53 AM Referred By: Confirmed By:FARHEEN FRIED MD
--- NOTE | 2023-10-10 01:41 | CT_ITS ---
EXAM: CT HEAD WITHOUT INTRAVENOUS CONTRAST CLINICAL INDICATION: Altered mental status TECHNIQUE: Multiple axial images were obtained of the head without intravenous contrast. This CT exam was performed using one or more of the following dose reduction techniques: automated exposure control, adjustment of the mA and/or kV according to patient size, and/or use of iterative reconstruction technique. RADIATION DOSE: CTDIvol = 44.99 mGy, DLP = 812.98 mGy-cm COMPARISON: Head CT 09/27/2023 FINDINGS: BRAIN AND EXTRA-AXIAL SPACES: Diffuse cerebral volume loss. Periventricular small vessel ischemic changes. No intra- or extra-axial hemorrhage. No intracranial mass or mass effect. Posterior fossa structures are unremarkable. No hydrocephalus. Basal cisterns are patent. BONES/JOINTS: Unremarkable. No discrete lytic or blastic abnormalities. VASCULATURE: Vascular calcifications. SINUSES: Unremarkable as visualized. Clear. MASTOID AIR CELLS: Unremarkable. Clear. ORBITS: Visualized globes, extraocular muscles, optic nerves and retrobulbar fat appear unremarkable. ASPECTS: 10 CT/Brain/Head without Contrast IMPRESSION: 1. No acute intracranial abnormalities. 2. Age-related changes. Electronically Signed: Bradford Wellington MD at 3:14 EST ,
--- OUTSIDE RECORDS SUMMARY | 2023-10-10 01:52 | XMS RPT_ITS | CCD ---
Author Name Unknown Address [address] [place] [address] Organization [facility] Care Team Providers Care Senior Ruby Developer Name Role Phone Shira Hylton Unavailable Unavailable Shira Hylton Unavailable Unavailable Shira Hylton Unavailable Unavailable Shira Hylton Unavailable Unavailable Shira Hylton Unavailable Unavailable Shira Hylton Unavailable Unavailable Shira Hylton Unavailable Unavailable ZIA SHABAZZ MD Primary Care Unavailable ZIA SHABAZZ MD Attending Unavailable ZIA SHABAZZ MD Admitting Unavailable Magalie Rangel Unavailable Unavailable Oleghe, Efewongbe B Unavailable Unavailable Update Needed Unavailable Unavailable OLEGHE, EFEWONGBE B Primary Care Unavailable CONCHA HERNANDEZ Attending Unavailable MIGUEL REECE Consulting Unavailable EMY WYATT Admitting Unavailable CARLOS CLINTON Consulting Unavailable Leopoldo Baird MD Primary Care Provider [phone] Unavailable Primary Care Provider Unavailabl e Oleangelie, Efewongbe B Primary Care Provider Labor Adelina STOREY T Unavailable Mica Welch CNP, Dejah Unavailable Manjit Ga DO Unavailable Unavailable Susie Ledezma MD Unavailable Oleghe, Efewongbe B Primary Care Provider Oleghe, Efewongbe B Primary Care Provider SUSIE LEDEZMA Admitting Unavailable SUSIE LEDEZMA Attending Unavailable OLEGHE, EFEWONGBE Primary Care Unavailable KAREEM HARTMANN Attending Unavailable OLEGHE, EFEWONGBE Primary Care Unavailable KAREEM HARTMANN Attending Unavailable OLEGHE, EFEWONGBE Primary Care Unavailable KAREEM HARTMANN Attending Unavailable OLEGHE, EFEWONGBE Primary Care Unavailable HARITHA SINGH Attending Unavailable DEJAH DREW Referring Unavailable OLEGHE, EFEWONGBE Primary Care Unavailable ASHLEY MESA Attending Unavailable OLEGHE, EFEWONGBE Primary Care Unavailable SUSIE LEDEZMA Attending Unavailable OLEGHE, EFEWONGBE Primary Care Unavailable KENZIE PAUL Attending Unavailable OLEGHE, EFEWONGBE Primary Care Unavailable JENNIFERELADIA RICHEK Attending Unavailable OLEGHE, EFEWONGBE Primary Care Unavailable SHAYLEE BERNALORY Attending Unavailable ZUPKE BRETT Referring Unavailable OLEGHE, EFEWONGBE Primary Care Unavailable Allergies Allergy Classification Reported Allergen(s) Allergy Type Date of Onset Reaction(s) Facility (3 sources) iloperidone Drug Allergy 1 [facility] Work Phone: (1 source) paliperidone Drug Allergy [facility] Work Phone: (1 source) Theophylline Drug Allergy [facility] Work Phone: (1 source) traZODone Drug Allergy [facility] Work Phone: (20 sources) Naproxen Drug Allergy 1 Hives [facility] (3 sources) Gadoxetate Drug Allergy 7 Shortness of Breath, SOB [facility] (1 source) Slow-bid [Other] Propensity to adverse reactions 2 Mental Status Change [facility] Work Phone: (20 sources) paliperidone Drug Allergy 9 [facility] Work Phone: (20 sources) iloperidone Drug Allergy 9 [facility] (20 sources) lurasidone Drug Allergy 9 [facility] (20 sources) Theophylline Drug Allergy 7 [facility] (20 sources) Gadoxetate Propensity to adverse reactions 7 Shortness of breath [facility] (20 sources) Trazodone And Nefazodone Drug Intolerance 9 [facility] Medications Current Medications Medication Drug Class(es) Dates Sig (Normalized) Sig (Original) ascorbic acid 500 mg extended release oral capsule (20 sources) Vitamin C Start: 07-08-2022 ascorbic acid (Vitamin C) 500 MG ER capsule Take 500 mg by mouth. 0 07/08/2022 Active cariprazine 3 mg oral capsule (20 sources) Atypical Antipsychotic Start: 11-18-2022 take 1 capsule by mouth in the morning Cariprazine 3 MG capsule Take 1 capsule by mouth in the morning. 0 12/02/2022 Active Completed/Discontinued Medications Medication Drug Class(es) Dates Sig (Normalized) Sig (Original) [id number] 200 actuat albuterol 0.09 mg/actuat metered dose inhaler (1 source) beta2-Adrenergic Agonist Start: 11-19-2015 take 2 puff(s) by inhalation every four hours as needed for wheezing albuterol HFA (PROAIR HFA) 90 mcg/actuation inhaler Inhale 2 Puffs as instructed every 4 hours as needed for Wheezing/Shortnes s of Breath. 1 Inhaler 5 11/19/2015 Active Problems Active Problems Problem Classification Problem Date Documented Date Episodic/Chronic Adjustment disorders (2 sources) Grief finding; Translations: [Adjustment disorder with depressed mood] Onset: 04-02-2021 04-02-2021 Chronic Chronic obstructive pulmonary disease and bronchiectasis (20 sources) Chronic obstructive lung disease; Translations: [Chronic obstructive pulmonary disease, unspecified] Onset: 04-30-2023 02-20-2021 Chronic Disorders of lipid metabolism (10 sources) Hypercholesterolemia; Translations: [Pure hypercholesterolemia, unspecified] Onset: 04-30-2023 04-30-2023 Chronic Epilepsy; convulsions (4 sources) Epilepsy; Translations: [Epilepsy, unspecified, not intractable, without status epilepticus] Onset: 06-04-2011 06-04-2011 Chronic Esophageal disorders (20 sources) Gastroesophageal reflux disease; Translations: [Gastro-esophageal reflux disease without esophagitis] Onset: 04-30-2023 02-20-2021 Chronic Essential hypertension (20 sources) Benign essential hypertension; Translations: [Essential (primary) hypertension] Onset: 06-04-2011 06-04-2011 Chronic Gastritis and duodenitis (20 sources) Chronic superficial gastritis; Translations: [Chronic superficial gastritis without bleeding] Onset: 06-15-2023 06-15-2023 Chronic Miscellaneous mental health disorders (4 sources) Multiple personality disorder; 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 Mood disorders (20 sources) Bipolar I disorder; Translations: [Bipolar disorder] Onset: 06-04-2011 06-04-2011 Chronic Nutritional deficiencies (1 source) Vitamin D deficiency; Translations: [Vitamin D deficiency, unspecified] 07-09-2023 Chronic Nutritional deficiencies (1 source) Decreased vitamin B12 level; Translations: [Deficiency of other specified B group vitamins] 07-09-2023 Episodic Osteoarthritis (3 sources) Arthritis of right knee; Translations: [Unilateral primary osteoarthritis, right knee] Onset: 12-29-2011 12-29-2011 Chronic Other nutritional; endocrine; and metabolic disorders (20 sources) Body mass index 40+ - severely obese; Translations: [Morbid (severe) obesity due to excess calories] Onset: 06-15-2023 04-30-2023 Chronic Other nutritional; endocrine; and metabolic disorders (7 sources) Morbid obesity; Translations: [Morbid (severe) obesity due to excess calories] 05-14-2023 Chronic Other nutritional; endocrine; and metabolic disorders (3 sources) Severe obesity; Translations: [Morbid (severe) obesity due to excess calories] 06-17-2023 Chronic Other nutritional; endocrine; and metabolic disorders (1 source) Hypermagnesemia; Translations: [Hypermagnesemia] 07-09-2023 Chronic Other nutritional; endocrine; and metabolic disorders (2 sources) Morbid (severe) obesity due to excess calories; Translations: [Morbid (severe) obesity due to excess calories (HCC)] Onset: 06-15-2023 Chronic Other nutritional; endocrine; and metabolic disorders (2 sources) Body mass index (BMI) 40.0-44.9, adult; Translations: [Body mass index (BMI) 40.0-44.9, adult (HCC)] Onset: 06-15-2023 Chronic Other nutritional; endocrine; and metabolic disorders (2 sources) Body mass index (BMI) 39.0-39.9, adult; Translations: [Body mass index (BMI) 39.0-39.9, adult] Onset: 06-17-2023 Chronic Other nutritional; endocrine; and metabolic disorders (2 sources) Weight loss; Translations: [Weight Loss] Onset: 08-10-2023 Episodic Residual codes; unclassified (3 sources) Sleep apnea; Translations: [Sleep apnea, unspecified] Onset: 03-30-2013 03-30-2013 Chronic Residual codes; unclassified (20 sources) Obstructive sleep apnea syndrome; Translations: [Obstructive sleep apnea (adult) (pediatric)] Onset: 06-16-2023 04-30-2023 Chronic Residual codes; unclassified (2 sources) Obstructive sleep apnea (adult) (pediatric); Translations: [Obstructive sleep apnea (adult) (pediatric)] Onset: 06-16-2023 Chronic Substance-related disorders (20 sources) History of drug abuse; Translations: [Other psychoactive substance abuse, in remission] Onset: 02-04-2012 02-04-2012 Chronic Substance-related disorders (2 sources) Stimulant abuse; Translations: [Other stimulant use, unspecified, uncomplicated] 02-20-2021 Episodic Unclassified (1 source) Unknown / UNK(Unknown) Onset: 04-27-2017 Past or Other Problems Problem Classification Problem Date Documented Da te Episodic/Chronic Abdominal pain (1 source) Epigastric pain; Translations: [Chronic epigastric pain] Episodic Deficiency and other anemia (3 sources) Anemia; Translations: [Anemia, unspecified] Onset: 1 06-04-2011 Episodic Diabetes mellitus without complication (20 sources) Prediabetes; Translations: [Prediabetes] Onset: 3 04-30-2023 Episodic Epilepsy; convulsions (20 sources) Seizure; Translations: [Unspecified convulsions] Onset: 1 02-20-2021 Episodic Other and unspecified benign neoplasm (4 sources) History of polyp of colon; Translations: [Personal history of colonic polyps] Onset: 4 09-21-2014 Episodic Other and unspecified benign neoplasm (3 sources) Benign neoplasm of colon; Translations: [Benign neoplasm of colon, unspecified] Onset: 1 06-27-2011 Episodic Other circulatory disease (1 source) H/O: hypertension; Translations: [History of hypertension] Episodic Other disorders of stomach and duodenum (3 sources) Nonulcer dyspepsia; Translations: [Functional dyspepsia] Onset: 3 06-16-2023 Episodic Other disorders of stomach and duodenum (1 source) Functional dyspepsia; Translations: [Functional dyspepsia] Onset: 3 Episodic Other gastrointestinal disorders (1 source) Personal history of other diseases of the digestive system; Translations: [History of gastroesophageal reflux (GERD)] Episodic Other gastrointestinal disorders (3 sources) Constipation; Translations: [Constipation, unspecified] Onset: 1 06-11-2011 Episodic Other hematologic conditions (1 source) H/O: anemia; Translations: [History of anemia] Episodic Other nutritional; endocrine; and metabolic disorders (1 source) H/O: raised blood lipids; Translations: [History of hyperlipidemia] Episodic Spondylosis; intervertebral disc disorders; other back problems (20 sources) Backache; Translations: [Dorsalgia, unspecified] Onset: 1 06-04-2011 Episodic Unclassified (1 source) FOLLOW UP Onset: 7 Results Test Name Value Interpretation Reference Range Facil ity Vital Signs Date Time Vital Sign Value Performing Clinician Faci lity 09-03-2023 07:11-0500 Body height 152.4 cm Kareem Hartmann MD Work Phone: [employer] 09-03-2023 07:11-0500 Body mass index (BMI) [Ratio] 43.51 kg/m2 Kareem Hartmann MD Work Phone: [facility] 09-03-2023 07:11-0500 Body weight 101.06 kg Kareem Hartmann MD Work Phone: [facility] 09-03-2023 07:11-0500 Diastolic blood pressure 106 mm[Hg] Kareem Hartmann MD Work Phone: [employer] 09-03-2023 07:11-0500 Systolic blood pressure 169 mm[Hg] Kareem Hartmann MD Work Phone: [facility] 08-10-2023 08:11-0400 Body height 152.4 cm Kareem Hartmann MD Work Phone: [facility] 08-10-2023 08:11-0400 Body mass index (BMI) [Ratio] 43.36 kg/m2 Kareem Hartmann MD Work Phone: [facility] 08-10-2023 08:11-0400 Body weight 100.7 kg Kareem Hartmann MD Work Phone: [facility] 08-10-2023 08:11-0400 Diastolic blood pressure 88 mm[Hg] Kareem Hartmann MD Work Phone: [facility] 08-10-2023 08:11-0400 Heart rate 86 /min Kareem Hartmann MD Work Phone: [facility] 08-10-2023 08:11-0400 Systolic blood pressure 150 mm[Hg] Kareem Hartmann MD Work Phone: [facility] 07-09-2023 09:28-0400 Body height 152.4 cm Kareem Hartmann MD Work Phone: [facility] 07-09-2023 09:28-0400 Body mass index (BMI) [Ratio] 44.18 kg/m2 Kareem Hartmann MD Work Phone: [facility] 07-09-2023 09:28-0400 Body weight 102.6 kg Kareem Hartmann MD Work Phone: [facility] 07-09-2023 09:28-0400 Diastolic blood pressure 84 mm[Hg] Kareem Hartmann MD Work Phone: [facility] 07-09-2023 09:28-0400 Heart rate 75 /min Kareem Hartmann MD Work Phone: [facility] 07-09-2023 09:28-0400 Respiratory rate 16 /min Kareem Hartmann MD Work Phone: [facility] 07-09-2023 09:28-0400 Systolic blood pressure 142 mm[Hg] Kareem Hartmann MD Work Phone: [facility] 06-25-2023 09:06-0400 Body height 152.4 cm Kenzie Paul MD Work Phone: [facility] 06-25-2023 09:06-0400 Body mass index (BMI) [Ratio] 43.28 kg/m2 Kenzie Paul MD Work Phone: [facility] 06-25-2023 09:06-0400 Body weight 100.52 kg Kenzie Paul MD Work Phone: [facility] 06-25-2023 09:06-0400 Diastolic blood pressure 88 mm[Hg] Kenzie Paul MD Work Phone: [facility] Encounters Encounter Date Encounter Type Care Provider Facility Start: 09-28-2023 Refill Brett GO Work Phone: [facility] Start: 09-21-2023 Documentation procedure Kareem Hartmann MD Work Phone: [facility] Start: 09-21-2023 Telephone encounter Kareem rich MD Work Phone: [facility] Procedures Date Procedure Procedure Detail Performing Clinician Start: 07-09-2023 Lipid 1996 panel - Serum or Plasma Kareem Hartmann MD Work Phone: Start: 01-15-2022 Mammography Susie Ledezma MD Work Phone: Start: 12-05-2020 Lipid 1996 panel - Serum or Plasma [place] [employer] PharmD Work Phone: Start: 08-03-2020 Endoscopy - Upper GI Magalie Rangel Start: 08-26-2018 Colonoscopy Emmanuel Smart Work Phone: Start: 12-30-2016 Adult depression screening assessment Emmanuel Smart Work Phone: Start: 12-12-2016 Mammography Emmanuel Smart Work Phone: section Magalie Henry er Cholecystectomy Magalie fletcher Colonoscopy Magalie Rangel Esophagogastroduodenoscopy E llkathleen Rangel Hysterectomy Magalie Rangel Plan of Treatment Date Care Activity Detail Author Start: 07-09-2028 Lipid panel Lipid Panel [facility] Start: 07-15-2026 DTaP/Tdap/Td Vaccine s (2 - Td or Tdap) DTaP/Tdap/Td Vaccines (2 - Td or Tdap) [facility] Start: 07-15-2026 Tetanus vaccination Imm-DTaP/T dap/Td (2 - Td or Tdap) [facility] Start: 07-15-2026 Urine microalbumin profile DTAP,TDAP,TD (2 - Td or Tdap) [facility] Start: 12-05-2025 Lipid panel Lipid Panel [facility] Start: 07-09-2024 Diabetes mellitus screening Diabetes Screening [facility] Start: 12-02-2023 Tobacco use cessatio n education Tobacco Cessation Counseling (#1) [facility] Start: 10-09-2023 End: 07-10-2024 25-hydroxyvitamin D3 [Mass/volume] in Serum or Plasma Vitamin D Deficiency Screening (Vit D 25) Lab Routine Vitamin D deficiency Expected: 10/09/2023 (Approximate), Expires: 07/10/2024 [facility] Immunizations Immunization Date Immunization Notes Care Provider Fa cility 08-27-2022 influenza virus vacc ine, unspecified formulation Susie Ledezma MD Work Phone: [facility] 07-21-2016 influenza, injectabl e, quadrivalent, contains preservative Emmanuel Larbernice Work Phone: [facility] 07-15-2016 tetanus toxoid, redu aaliyah diphtheria toxoid, and acellular pertussis vaccine, adsorbed Emmanuel Smart Work Phone: [facility] 09-05-2014 influenza, seasonal, injectable Emmanuel Berry Work Phone: [facility] Work Phone: 07-31-2012 pneumococcal polysaccharide vaccine, 23 valent Emmanuel Smart Work Phone: [facility] 07-29-2012 influenza virus vacc ine, unspecified formulation Emmanuel Smart Work Phone: [facility] 09-29-2010 pneumococcal polysaccharide vaccine, 23 valent Emmanuel Smart Work Phone: [facility] Payers Date Payer Category Payer Medicaid [facility] [place] [place] [facility] [place] [id number] 2018-Present [phone] [address] [place] [address] Medicaid [id number] 2018 Medicare [id number] 2015 Medicare [id number] 2015 Unknown [id number] 1950 Unknown [id number] Social History Date Type Detail Facility Start: 10-19-1987 End: 06-25-2023 Tobacco smoking status INIS Smokes tobacco daily [facility] Start: 10-19-1987 End: 10-16-2015 History of tobacco use Cigarette Smoker [facility] Start: 05-21-2016 End: 07-09-2023 Cigarettes smoked current (pack per day) - Reported 0.5 [facility] Start: 05-21-2016 End: 06-25-2023 Tobacco use and exposure Smokeless tobacco non-user [facility] Start: 08-29-2021 Alcohol intake Current non-dr change over of alcohol (finding) [facility] Start: 1950 Sex Assigned At Not on file [facility] Start: 07-30-2021 End: 07-09-2023 Exposure to SARS-CoV-2 (event) Not sure [facility] Start: 12-02-2022 End: 12-18-2022 Alcohol intake Lifetime non-drinker (finding) [employer] Work Phone: Start: 01-15-2021 History SDOH Alcohol Frequency 1 [employer] Work Phone: Start: 12-02-2022 Tobacco Comment half a pack da vini, smoked since 37 [employer] Work Phone: Start: 1950 Sex Assigned At Female [email or web address] Work Phone: Start: 04-30-2023 End: 07-09-2023 Alcohol intake Ex-drinker (finding) [facility] Start: 04-30-2023 End: 07-09-2023 Gender identity Not on file [facility] Start: 06-16-2023 Tobacco smoking stat us [facility] Ex-smoker [facility] Start: 10-19-1987 History of tobacco use Current smoke r [facility] Within the last year , have you been afraid of your partner or ex-partner? No [facility] NEGATED: Highlighted row - - [facility] Work Phone: Functional Status Date Assessment Result Facility NEGATED: Highlighted row Functional performance Functional status health issues are not documented Disease [facility] Work Phone: Mental Status Date Assessment Result Facility NEGATED: Highlighted row Cognitive function [Interpretation] Cognitive status health issues are not documented Disease -[facility] Work Phone: Clinical Notes 01-31-2013 to 10-05-2023 Telephone Encounter - ABBI Cassidy - 10/05/2023 12:25 PM ESTTelephone Encounter - ABBI Cassidy - 10/05/2023 12:25 PM ESTTelephone Encounter - Elisa Arce RN - 10/05/2023 12:02 PM EST Note Date & Type Note Facility 10-05-2023 Note Addended by: ELISA ARCE on: 10/05/2023 12:08 PM Modules accepted: [facility] 10-05-2023 Telephone encounter Note Noted, thanks [facility] 10-05-2023 Miscellaneous Notes Noted, thanks Per message in financial file from 08/12/23, pt withdrew from surg and went to non surg only. Per TE from 09/21/23, pt withdrew from non surg as well. Reason for withdraw from program: not specified [] Non-Surgical Program Offered [x] Patient is not Interested at this time. [] Patient is Interested in NSURG option, and forwarded to NPT for scheduling. New Psych and BNA appointments cancelled. [] Sent to surgeons clinical pool to: [x] Clinical staff to cancel any outstanding Testing-done Labs-done Referrals-done Scheduled [facility] Appointments (DE/Psych/Nutrition)-none scheduled [x] Clinical staff to notify ALS via Clinical Documentation if EGD is to be cancelled via pool: [facility] ALS CLINICAL WILDLIFE ENFORCEMENT MAJOR (List Surgeon as provider in the TE) EGD done 06/16/23 [x] Clinical staff to note in specialty comment date patient has withdrawn from the program [x] Sent to [facility]BE[facility] and Surgical Navigation and Financial Teams for notification. Name of caller: Giovana Contact phone number: [phone] Relationship to Patient: patient Provider: Kareem Hartmann Practice: [facility] Chief Complaint/Reason for Call: Pt states she does not want to do the program with anymore. Pt states she would like to be removed and is just going to go back to her primary care doctor.Please advise. Best time of day caller can be reached: AM Patient advised that office/PCP has 24-48 business hours to return their call: Yes documented in this encounter [facility] 10-05-2023 Note Addended by: ELISA ARCE on: 10/05/2023 12:08 PM Modules accepted: Orders [facility] 10-05-2023 Note Addended by: ELISA ARCE on: 10/05/2023 12:08 PM Modules accepted: Orders [facility] 10-05-2023 Miscellaneous Notes Addended by: ELISA ARCE on: 10/05/2023 12:08 PM Modules accepted: Orders See TE from 09/21/23 where pt withdrew from surg program and non surg. Patient states she is switching to the NSRUG program with Dr. Hartmann. Patient needs scheduled for psychology please. On d/e 5 out of 6, thanks. Addended by: MARCELO LAM on: 07/09/2023 10:11 AM Modules accepted: Orders Orders mailed- with pain management clearance and neurology clearance form Addended by: BRETT BERNAL on: 05/13/2023 09:07 AM Modules accepted: Orders Signed and printed orders Neuro clearance will be needed once we know name of provider- she has appt in May Psych clearance will defer to our psychologists to obtain records from Dr. Ga Addended by: MONICA MORRIS on: 05/11/2023 08:06 AM Modules accepted: Orders Orders pended, Pre op check list scanned to media. EGD order sent to ALS. Plan: I have recommended proceeding with the evaluation, workup and marketing sales consultant preoperative consultations and testing for the primary procedure as outlined below: BARIATRIC AND METABOLIC SURGERY [facility] PATIENT SUMMARY Giovana Ledezma 72 y.o. female with Body mass index is 42.73 kg/m . Planned Procedures: Laparoscopic Sleeve Gastrectomy and Laparoscopic Liver Biopsy DM[] HTN[x] JENNIFER[x] GERD[] HL[x] OA[] TOB[x] Date of Surgery: TBD MADINA BAIRD INITIAL PRE-OP TESTING ORDERS/ RESULTS Labwork [x] CMP, TSH, Fasting Lipid Profile, Mg, Zinc, Vit B1 (whole blood), Vit B12, 25-OH Vit D, Fe, Ferritin, Folate, Hgb A1c EGD [x] Dx: [] GERD [x] Dyspepsia [] Other [] Not ordered Pathology [x] H. pylori [] Negative [] Positive [] Stool Antigen UGI [x] US Abdomen [] [x] S/p carlos alberto [] Not ordered JENNIFER eval [] [] On CPAP / Obtain settings Toxicology [x] [x] Urine drug screen/ETOH [x] Nicotine Additional [] INITIAL CONSULTATIONS ORDERED CLEARANCE / MANAGEMENT Psychology [x] Dietitian [x] Cardiology [x] Pulmonary [x] Others [] []Heme/Onc [x]Pain mgmt: Dr. Lin [x]Other: Dr. Ga - psych ALSO - will need clearance from Neurology - seeing him (new provider) in May 2023 PSD [x] Physician supervised diet: []None []3 mos [x]6 mos Preop diet [x] Preop low calorie diet: []1 wk [x]2 wks [] Other: FINAL PRE-OP TESTING ORDERS RESULTS Labwork [x] [x] CBC [x]BMP []Serum Nicotine / Cotinine EKG [x] CXR [] POST-OP MEDICATIONS Ulcer Ppx [] Omeprazole 20 mg PO []QD Gallstone Ppx [] Ursodiol 300 mg []BID DVT Ppx [] DVT prophylaxis per final preop visit estimated risk Estimated calculated risk: % Schedule final pre-operative office visit with surgeon, pre-operative education class, and pre-operative exercise class prior to date of surgery I had a long discussion with her regarding our options. She will need to quit smoking and she is aware, she will work with her PCP for patches. She has a history of substance abuse, she has been clean for over 12 years and gets monthly injections. She also has a history of bipolar and has been hospitalized approximately 3 years ago. Since they have started Vraylar she has been very well controlled and has a new psychiatrist that she has been compliant with, both in [place] and now in [place] She will need 6 months of physician directed diet and exercise, all of her questions were answered to her satisfaction and we will move forward with the medical and cardiac risk stratification and insurance precertification process I met with her today to discuss risks and benefits of laparoscopic weight loss surgery, the risks and benefits are outlined as above and visual aids were used to describe the procedure. I personally performed the evaluation and management of Giovana Homero in the development of a treatment plan for this patient. I personally interviewed the patient and performed an individual physical examination. In addition, I discussed the patient's condition and treatment options with them. I have also reviewed and agree with the past medical, family and social history unless otherwise noted. All of the patient's questions were answered. I discussed/counseled the patient regarding the risks and benefits of surgery as well as the preoperative and postoperative care plan for this patient. The patient was seen and examined independently and relevant data reviewed by myself. A full chart review was performed. Due to the complexity of the patients condition as well as having at least one medical condition as listed above in medical history that is progressing despite medical management, this patient is considered high medical decision making and surgical intervention is necessary to help decrease the risk of continued chronic illness. The patient was seen and examined independently and relevant data reviewed by myself. A full chart review was performed. Patient Care Team: Leopoldo Baird as PCP - General Adelina Lin DO (Addiction Medicine) Dejah Drew APRN - PATRICIO (Nurse Practitioner) Manjit Ga DO (Psychiatry) Initial New [facility] surgical patient Navigation & Financial Counseling Discussion Patient Communication: In office SURGEON: [x] JZ [] AD [] MP [] TB [] LM PROCEDURE: [] LRYGB [] LSG [] SIMI-S [] SIMI [] UNDECIDED [] REV: SPECIFY: Confirmed pt wants to continue with surgical program/plan [] YES [] NO (complete program withdrawal note/process) CO-MORBIDS: [] NONE [] DM []HTN [] JENNIFER []GERD [] OTH: PRIVATE PAY: [] NO []YES DATE OF INITIAL BENEFITS VERIFICATION: TRANSFER FU: [] YES [] NO PRIMARY INSURANCE: Payor: [employer] MEDICARE / Plan: [employer] DUAL ADVANTAGE / Product Type: Medicare HMO / BENEFIT ON PLAN: [] NO [] YES BENEFIT MAX: [] NO [] YES -- BENEFIT MAX: $ EMPLOYER: DIET AND EXERCISE (DE) REQUIREMENT PRIMARY [] NONE []3M [x] 6M []9M [] Medicare 4 Months [] SPR (3M) []OTHER: SECONDARY INSURANCE: BENEFIT ON PLAN: [] NO [] YES BENEFIT MAX: [] NO [] YES -- BENEFIT MAX: $ AUTH REQUIRED FROM SECONDARY [] NO [] YES DIET AND EXERCISE REQUIREMENT SECONDARY [] NONE []3M [] 6M [] Medicare 4 months [] SPR (3M) []OTHER: ___ [x] Discussed with patient: Financial cost overview (document signed and pt given copy at new pt consult visit with surgeon), Initial appointments: Bariatric Nutrition Assessment (BNA) & Diet and Exercise (DE) Patient to look for yellow envelope in mail. This yellow envelope will contain orders for labs, testing and required clearances. Pt encouraged to complete early in program to prevent delays. Encourage blood work to be draw by 1st DE appointment. [x] Reviewed OOP cost, including: [] Optifast cost of approximately $130-140/week x weeks immediately prior to surgery - used to induce rapid weight loss which results in decrease in size of liver and therefore facilitates laparoscopically surgery approach. [] Overview of inpatient admission benefits - estimated inpatient co-pays, deductibles and/or co-insurance - Estimated OOP costs form reviewed with patient, and copy given to patient at new pt visit. [x] Reviewed next steps with patient: 1) Scheduled at new pt surgeon visit: Outsole Cementer Machine (RD) for a Nutrition Assessment (BNA) and Pre-operative Diet and Exercise (DE) appointment #1. [x] Patient reminded to arrive 15 minutes early for check in. Late arrivals may need to be rescheduled. 2) Schedule: Diet and Exercise Apt #2 only scheduled after initial BNA and DE completed, 3) Behavioral Health apt scheduled after DE started. Reviewed rational and goal of Behavioral Health appointments. 4) [x] Reinforced need to cancel any WMI appointments 48 hours in advance. Cautioned NS/Same day cancellations may result in delay in program or program completion hold. Noted: DE series needs to be a monthly series or insurance company may require repeat of the entire series. 5) [x] Smoker/tobacco products including vaping: reviewed need for cessation before surgery clearance and life long abstinence after surgery for best outcomes. Patient navigation to surgery: [x] Explained to patient that average time from initial consult to date of surgery can be 6-8 months. - Process can take longer if there are cancelled appointments, delays in testing and/or additional clearances that needs to be completed. - Reviewed importance of patient active engagement in making and keeping appointments to keep the process moving. - Reinforced need to cancel appointments at least 48 hours in advance. Reviewed that instances of No Shows and Same Day Appointment Cancellations may result in program/surgery delay or hold. [x] Patient advised of importance of having voicemail and MyChart for office communications and lab/testing results before and after surgery. documented in this encounter [facility] 10-05-2023 Telephone encounter Note See TE from 09/21/23 where pt withdrew from surg program and non surg. [facility] 10-05-2023 Telephone encounter Note Per message in financial file from 08/12/23, pt withdrew from surg and went to non surg only. Per TE from 09/21/23, pt withdrew from non surg as well. Reason for withdraw from program: not specified [] Non-Surgical Program Offered [x] Patient is not Interested at this time. [] Patient is Interested in NSURG option, and forwarded to NPT for scheduling. New Psych and BNA appointments cancelled. [] Sent to surgeons clinical pool to: [x] Clinical staff to cancel any outstanding Testing-done Labs-done Referrals-done Scheduled WMI Appointments (DE/Psych/Nutrition)-none scheduled [x] Clinical staff to notify ALS via Clinical Documentation if EGD is to be cancelled via pool: [facility] ALS CLINICAL WILDLIFE ENFORCEMENT MAJOR (List Surgeon as provider in the TE) EGD done 06/16/23 [x] Clinical staff to note in specialty comment date patient has withdrawn from the program [x] Sent to [facility] and Surgical Navigation and Financial Teams for notification. [employer] 09-28-2023 Telephone encounter Note One month sent but pt needs to complete repeat labs- please advise, thanks! [employer] 09-28-2023 Miscellaneous Notes One month sent but pt needs to complete repeat labs- please advise, thanks! Received fax from [facility] requesting refills for Vit B-12 500 mcg. documented in this encounter [employer] 09-28-2023 Telephone encounter Note Received fax from [facility] requesting refills for Vit B-12 500 mcg. [employer] 09-21-2023 Telephone encounter Note Name of caller: Giovana Contact phone number: [phone] Relationship to Patient: patient Provider: Kareem Hartmann Practice: Weight Management Chief Complaint/Reason for Call: Pt states she does not want to do the program with anymore. Pt states she would like to be removed and is just going to go back to her primary care doctor.Please advise. Best time of day caller can be reached: AM Patient advised that office/PCP has 24-48 business hours to return their call: Yes [facility] 09-21-2023 Miscellaneous Notes Name of caller: Giovana Contact phone number: [phone] Relationship to Patient: patient Provider: Kareem Hartmann Practice: Weight Management Chief Complaint/Reason for Call: Pt states she does not want to do the program with anymore. Pt states she would like to be removed and is just going to go back to her primary care doctor.Please advise. Best time of day caller can be reached: AM Patient advised that office/PCP has 24-48 business hours to return their call: Yes documented in this encounter [facility] 09-21-2023 History of Present illness Narrative I called Ms. Powell (using the phone number listed in [employer] to discuss how she is tolerating the Trulicity. She did not car pick up driver the phone. Kareem Hartmann MD 3:14 PM 09/21/2023 documented in this encounter [facility] 09-03-2023 History of Present illness Narrative [facility] NON-SURGICAL WEIGHT LOSS PROGRAM FOLLOW-UP HPI: Weight trend since last visit: gained 0.8 pounds. The patient does not have any acute complaints. Physical Examination: BP (!) 169/106 Ht 5' (1.524 m) Wt 222 lb 12.8 oz (101 kg) BMI 43.51 kg/m HR 80 Awake, alert, and oriented, no apparent distress. Cardiac: regular rate and rhythm, no murmurs appreciated, HR 80 on exam No respiratory distress, no conversational dyspnea Neurological: Intact x 4 extremities, no focal deficits notes. Ambulatory without assistance. Current Diet Healthy meal plan choices Activity: walking, limited due to walker Plan: --Obesity Class III, Elevated BMI Diet and exercise (DE) Following with bariatric surgery Advised patient that they must adhere to regular monthly visits to meet the requirements of the insurance company. Additionally, they must demonstrate meal plan adoption to show readiness for the changes that will be required following surgery. Diet recommendations provided to patient verbally and in the form of handouts; they understood and agreed with plan. -Ms. Powell was evaluated by obesity medicine provider Dr. Mesa in May. Prescribed Wegovy at that time - this medication was denied by insurance. -Tolerating Trulicity well - a shared decision was made to increase the dosage -baseline bowel movement q3-4 days, currently at baseline, +flatus, no bloating, no abdominal pain/cramping -Ms. Powell understands that if she develops constipation or other side effects, to stop the Trulicity, contact PCP and [facility], and seek immediate medical attention for urgent medical issues. -also on Metformin (per PCP) and tolerating well -No acute constipation (occasionally requires Metamucil and prune juice, she states she will also initiate a probiotic and yogurt) -Ms. Powell is no longer interested in metabolic surgery and has transitioned to the non-surgical program. -Ms. Powell agrees to follow in 4 weeks to assess side effects, effectiveness of the medication, and monitor dosing --HTN: elevated BP today, she did not take her medications yet today, she is compliant with meds, she states she is asymptomatic, she denies headache and other symptoms, she is able to check BP at home and agrees to do so, she has follow up with her PCP 09/28, continue current meds per outpatient providers, continue monitoring --Pre-Diabetes, Patient will follow up with their outpatient providers for diabetes management Hgb A1c 6.2 (07/09/23) --Sleep apnea: does not wear PAP (intolerant), we discussed potential life threatening risks of untreated sleep apnea, she understood and agrees to follow up with her sleep specialist in [place] --smoking cessation: recently quit with nicotine patch --Fatty liver, per outpatient providers, continue above plan (diet, exercise, anti-obesity medication) --GERD: per outpatient providers, continue above plan (diet, exercise, anti-obesity medication) --HLD: per outpatient providers, continue above plan (diet, exercise, anti-obesity medication) --Psychiatry: follows with psychiatry, on cariprazine (Vraylar) and other medications per psychiatry -Abdominal hernia repair that was done during her hysterectomy at age 44. Labs June 2023 discussed with Ms. Powell, she agrees to follow with her outpatient providers. --Elevated CO2, risks of untreated sleep apnea discussed as above, follow with her PCP --Low HDL: Trulicity and activity as tolerated will help, she agrees to follow with PCP --vitamin D deficiency: on vitamin D --Leukocytosis and elevated platelets: follows with hematology/oncology ([facility], Dr. Russell) Plan of care discussed with patient, all questions answered, they agree with plan of care. Medical decision making: Patient's medical conditions place them at a moderate risk of complications, morbidity, and mortality. No orders of the defined types were placed in this encounter. Current Meds Patient's Medications New Prescriptions No medications on file Previous Medications ANTIFUNGAL 2 % POWDER ASCORBIC ACID (VITAMIN C) 500 MG ER CAPSULE Take 500 mg by mouth. BUPRENORPHINE ER (SUBLOCADE) 100 MG/0.5ML INJECTION Inject 1 each under the skin every month to absorb continually. CARIPRAZINE 3 MG CAPSULE Take 1 capsule by mouth in the morning. CHOLECALCIFEROL (VITAMIN D-3) 100 MCG (4000 UT) CAPSULE Take 1 capsule (100 mcg) by mouth daily. CYANOCOBALAMIN (B-12) [address] 500 mcg under the tongue daily. Place 500 mcg under the tongue to dissolve once daily DIVALPROEX (DEPAKOTE ER) 500 MG 24 HR TABLET Take 50 mg by mouth in the morning and 50 mg in the evening. DULAGLUTIDE (TRULICITY) 0.75 MG/0.5ML SOLUTION PEN-INJECTOR Inject 0.75 mg under the skin 1 (one) time per week. FEROSUL 325 (65 FE) MG TABLET Take 325 mg by mouth every other day. FESOTERODINE ER (TOVIAZ) 4 MG 24 HR TABLET Take 4 mg by mouth daily. FUROSEMIDE (LASIX) 20 MG TABLET Take 20 mg by mouth daily. HYDRALAZINE (APRESOLINE) 10 MG TABLET Take 10 mg by mouth in the morning. LAMOTRIGINE (LAMICTAL) 200 MG TABLET Take 1 tablet by mouth Nightly. LISINOPRIL 40 MG TABLET Take 40 mg by mouth. METAMUCIL FIBER PO Take by mouth. METOPROLOL SUCCINATE XL (TOPROL-XL) 25 MG 24 HR TABLET Take 25 mg by mouth daily. METOPROLOL SUCCINATE XL (TOPROL-XL) 50 MG 24 HR TABLET Take 50 mg by mouth in the morning. MYRBETRIQ 50 MG 24 HR TABLET Take 50 mg by mouth daily. NICOTINE (NICOTINE STEP 2) 14 MG/24HR PATCH Place 1 patch on the skin Every 24 hours. Modified Medications No medications on file Discontinued Medications No medications on file I reviewed all of the patient's medications and diagnoses listed in Epic. [facility] NON-SURGICAL WEIGHT LOSS MANAGEMENT PROGRAM ROOMING NOTE: FOLLOW UP VISIT Patient: Giovana Powell Date of : 1950 Service Date: 09/03/2023 Patient History/Assessment Summary: The patient is a pleasant 73 y.o. year old female, who stands Height: 5' (152.4 cm) tall with a weight of Weight: 222 lb 12.8 oz (101 kg) pounds, resulting in a BMI of Body mass index is 43.51 kg/m . kg/m2. She is here for follow-up for non-surgical treatment of Morbid Obesity Patient has the following question(s): none Pre Program Weight Metrics ([facility]) Date of Initial Consultation:@FLOWLAST([id number])@ Initial Weight: @FLOWLAST([id number])@ Initial BMI: @FLOWLAST([id number])@ [place] Body Weight: @FLOWLAST([id number])@ Excess Body Weight: @FLOWLAST([id number])@ Body Fat Percentage: No flowsheet data found. Subsequent Body Fat Percentage: No flowsheet data found. Pre Program Weight Metrics (Epic) (Surgical Wt Loss Management- baseline) This Visit Non-Surgical Subsequent Eval Date: 09/03/23 Height: 5' (152.4 cm) Weight: 222 lb 12.8 oz (101 kg) BMI: 43.51 Weight Change: .8 lbs Total Weight Change: -.6 lbs % EBWL: 1% Subsequent Body Fat %: 52.21 Body Fat % Change: 0.19 Follow Up Weight Metrics Last Three Weights Including Today's Weight: Wt Readings from Last 3 Encounters: 09/03/23 222 lb 12.8 oz (101 kg) 08/10/23 222 lb (101 kg) 07/09/23 226 lb 3.2 oz (103 kg) Diabetes Do you currently have diabetes? Yes Are you currently prescribed insulin? No Are you currently prescribed an oral medication for diabetes? Yes GERD (Gastroesophageal Reflux Disease) Do you currently have GERD? No Do you get heartburn type symptoms more than twice per week? No Are you currently on a medication for GERD? (not TUMS) (examples: Prilosec/omeprazole, Zantac/ranitidine, etc.) No Hyperlipidemia (high cholesterol) Do you currently have a diagnosis of high cholesterol? Yes Are you currently prescribed a medication for high cholesterol? (examples Lipitor/Atorvastatin, Pravastatin, Zetia, Tricor, etc.) Yes Have you been diagnosed with high cholesterol but chosen not to take medication? No Hypertension (high blood pressure) Do you currently have a diagnosis of Hypertension? Yes Are you currently on a medication for Hypertension? Yes Have you been diagnosed with Hypertension but have chosen not to take the medication? No Sleep Apnea Do you currently have Sleep Apnea? Yes Are you on a device (CPAP, BiPAP, etc) for Sleep Apnea? No Have you been diagnosed with Sleep Apnea but cannot tolerate or have chosen not to treat? Yes Comorbids summary (flow sheet comorbids) Falls Risk Assessment Patient does take medications which affect BP or mental status Patient does not have newly prescribed or changed dosage of medications within past 30 days which affect BP or mental status Patient has not fallen in the past 2 months Patient does demonstrate unsteady gait Patient uses the following ambulatory assistive devices: Rolling Walker Patient states the presence of the following traits which increases risk of fall: weakness Patient is not on home O2 Completed by: Juanita Daigle MA documented in this encounter [facility] 08-12-2023 Telephone encounter Note Patient states she is switching to the NSRUG program with Dr. Hartmann. [facility] 08-10-2023 Telephone encounter Note Patient needs scheduled for psychology please. On d/e 5 out of 6, thanks. [facility] 08-10-2023 Miscellaneous Notes Patient needs scheduled for psychology please. On d/e 5 out of 6, thanks. Addended by: MARCELO LAM on: 07/09/2023 10:11 AM Modules accepted: Orders Orders mailed- with pain management clearance and neurology clearance form Addended by: BRETT BERNAL on: 05/13/2023 09:07 AM Modules accepted: Orders Signed and printed orders Neuro clearance will be needed once we know name of provider- she has appt in May Psych clearance will defer to our psychologists to obtain records from Dr. Ga Addended by: MONICA MORRIS on: 05/11/2023 08:06 AM Modules accepted: Orders Orders pended, Pre op check list scanned to media. EGD order sent to ALS. Plan: I have recommended proceeding with the evaluation, workup and marketing sales consultant preoperative consultations and testing for the primary procedure as outlined below: BARIATRIC AND METABOLIC SURGERY [facility] PATIENT SUMMARY Giovana Ledezma 72 y.o. female with Body mass index is 42.73 kg/m . Planned Procedures: Laparoscopic Sleeve Gastrectomy and Laparoscopic Liver Biopsy DM[] HTN[x] JENNIFER[x] GERD[] HL[x] OA[] TOB[x] Date of Surgery: TBD CheriFátima BAIRD INITIAL PRE-OP TESTING ORDERS/ RESULTS Labwork [x] CMP, TSH, Fasting Lipid Profile, Mg, Zinc, Vit B1 (whole blood), Vit B12, 25-OH Vit D, Fe, Ferritin, Folate, Hgb A1c EGD [x] Dx: [] GERD [x] Dyspepsia [] Other [] Not ordered Pathology [x] H. pylori [] Negative [] Positive [] Stool Antigen UGI [x] US Abdomen [] [x] S/p carlos alberto [] Not ordered JENNIFER eval [] [] On CPAP / Obtain settings Toxicology [x] [x] Urine drug screen/ETOH [x] Nicotine Additional [] INITIAL CONSULTATIONS ORDERED CLEARANCE / MANAGEMENT Psychology [x] Dietitian [x] Cardiology [x] Pulmonary [x] Others [] []Heme/Onc [x]Pain mgmt: Dr. Lin [x]Other: Dr. Ga - psych ALSO - will need clearance from Neurology - seeing him (new provider) in May 2023 PSD [x] Physician supervised diet: []None []3 mos [x]6 mos Preop diet [x] Preop low calorie diet: []1 wk [x]2 wks [] Other: FINAL PRE-OP TESTING ORDERS RESULTS Labwork [x] [x] CBC [x]BMP []Serum Nicotine / Cotinine EKG [x] CXR [] POST-OP MEDICATIONS Ulcer Ppx [] Omeprazole 20 mg PO []QD Gallstone Ppx [] Ursodiol 300 mg []BID DVT Ppx [] DVT prophylaxis per final preop visit estimated risk Estimated calculated risk: % Schedule final pre-operative office visit with surgeon, pre-operative education class, and pre-operative exercise class prior to date of surgery I had a long discussion with her regarding our options. She will need to quit smoking and she is aware, she will work with her PCP for patches. She has a history of substance abuse, she has been clean for over 12 years and gets monthly injections. She also has a history of bipolar and has been hospitalized approximately 3 years ago. Since they have started Vraylar she has been very well controlled and has a new psychiatrist that she has been compliant with, both in [place] and now in [place] She will need 6 months of physician directed diet and exercise, all of her questions were answered to her satisfaction and we will move forward with the medical and cardiac risk stratification and insurance precertification process I met with her today to discuss risks and benefits of laparoscopic weight loss surgery, the risks and benefits are outlined as above and visual aids were used to describe the procedure. I personally performed the evaluation and management of Giovana Powell in the development of a treatment plan for this patient. I personally interviewed the patient and performed an individual physical examination. In addition, I discussed the patient's condition and treatment options with them. I have also reviewed and agree with the past medical, family and social history unless otherwise noted. All of the patient's questions were answered. I discussed/counseled the patient regarding the risks and benefits of surgery as well as the preoperative and postoperative care plan for this patient. The patient was seen and examined independently and relevant data reviewed by myself. A full chart review was performed. Due to the complexity of the patients condition as well as having at least one medical condition as listed above in medical history that is progressing despite medical management, this patient is considered high medical decision making and surgical intervention is necessary to help decrease the risk of continued chronic illness. The patient was seen and examined independently and relevant data reviewed by myself. A full chart review was performed. Patient Care Team: Leopoldo Baird as PCP - General Adelina Lin DO (Addiction Medicine) Dejah Drew APRN - PATRICIO (Nurse Practitioner) Manjit Ga DO (Psychiatry) Initial New [facility] surgical patient Navigation & Financial Counseling Discussion Patient Communication: In office SURGEON: [x] MADINA [] AD [] MP [] TB [] LM PROCEDURE: [] LRYGB [] LSG [] SIMI-S [] SIMI [] UNDECIDED [] REV: SPECIFY: Confirmed pt wants to continue with surgical program/plan [] YES [] NO (complete program withdrawal note/process) CO-MORBIDS: [] NONE [] DM []HTN [] JENNIFER []GERD [] OTH: PRIVATE PAY: [] NO []YES DATE OF INITIAL BENEFITS VERIFICATION: TRANSFER FU: [] YES [] NO PRIMARY INSURANCE: Payor: [facility] MEDICARE / Plan[facility] [employer] [facility] / Product Type: Medicare HMO / BENEFIT ON PLAN: [] NO [] YES BENEFIT MAX: [] NO [] YES -- BENEFIT MAX: $ EMPLOYER: DIET AND EXERCISE (DE) REQUIREMENT PRIMARY [] NONE []3M [x] 6M []9M [] Medicare 4 Months [] SPR (3M) []OTHER: SECONDARY INSURANCE: BENEFIT ON PLAN: [] NO [] YES BENEFIT MAX: [] NO [] YES -- BENEFIT MAX: $ AUTH REQUIRED FROM SECONDARY [] NO [] YES DIET AND EXERCISE REQUIREMENT SECONDARY [] NONE []3M [] 6M [] Medicare 4 months [] SPR (3M) []OTHER: ___ [x] Discussed with patient: Financial cost overview (document signed and pt given copy at new pt consult visit with surgeon), Initial appointments: Bariatric Nutrition Assessment (BNA) & Diet and Exercise (DE) Patient to look for yellow envelope in mail. This yellow envelope will contain orders for labs, testing and required clearances. Pt encouraged to complete early in program to prevent delays. Encourage blood work to be draw by 1st DE appointment. [x] Reviewed OOP cost, including: [] Optifast cost of approximately $130-140/week x weeks immediately prior to surgery - used to induce rapid weight loss which results in decrease in size of liver and therefore facilitates laparoscopically surgery approach. [] Overview of inpatient admission benefits - estimated inpatient co-pays, deductibles and/or co-insurance - Estimated OOP costs form reviewed with patient, and copy given to patient at new pt visit. [x] Reviewed next steps with patient: 1) Scheduled at new pt surgeon visit: Outsole Cementer Machine (RD) for a Nutrition Assessment (BNA) and Pre-operative Diet and Exercise (DE) appointment #1. [x] Patient reminded to arrive 15 minutes early for check in. Late arrivals may need to be rescheduled. 2) Schedule: Diet and Exercise Apt #2 only scheduled after initial BNA and DE completed, 3) Behavioral Health apt scheduled after DE started. Reviewed rational and goal of Behavioral Health appointments. 4) [x] Reinforced need to cancel any WMI appointments 48 hours in advance. Cautioned NS/Same day cancellations may result in delay in program or program completion hold. Noted: DE series needs to be a monthly series or insurance company may require repeat of the entire series. 5) [x] Smoker/tobacco products including vaping: reviewed need for cessation before surgery clearance and life long abstinence after surgery for best outcomes. Patient navigation to surgery: [x] Explained to patient that average time from initial consult to date of surgery can be 6-8 months. - Process can take longer if there are cancelled appointments, delays in testing and/or additional clearances that needs to be completed. - Reviewed importance of patient active engagement in making and keeping appointments to keep the process moving. - Reinforced need to cancel appointments at least 48 hours in advance. Reviewed that instances of No Shows and Same Day Appointment Cancellations may result in program/surgery delay or hold. [x] Patient advised of importance of having voicemail and MyChart for office communications and lab/testing results before and after surgery. documented in this encounter [facility] 08-10-2023 Note BARIATRIC CARE [facility] SURGICAL WEIGHT LOSS MANAGEMENT PROGRAM PROGRESS NOTE FOLLOW UP Patient: Giovana Powell Date of : 1950 Service Date: 08/10/2023 DE Visit number: 4 of 6 Pre Program Weight Metrics Date of Initial Consultation:@FLOWLAST(8961)@ Initial Weight: @FLOWLAST([id number])@ Initial BMI: @FLOWLAST([id number])@ [place] Body Weight: @FLOWLAST([id number])@ Excess Body Weight: @FLOWLAST([id number])@ Follow Up Weight Metrics Last Three Weights Including Today's Weight: Wt Readings from Last 3 Encounters: 08/10/23 222 lb (101 kg) 07/09/23 226 lb 3.2 oz (103 kg) 06/25/23 221 lb 9.6 oz (101 kg) Today's BMI: BMI: 43.35 %EBWL: % EBWL: 1% Weight Chance Since Last Visit: Weight Change: -4.2 lbs Weight Change from Initial DE/SPR Weight: Total Weight Change: -1.4 lbs Patient has the following question(s): none Falls Risk Assessment Patient doestake medications which affect BP or mental status Patient does not have newly prescribed or changed dosage of medications within past 30 days which affect BP or mental status Patient has fallen in the past 2 months Patient doesdemonstrate unsteady gait Patient uses the following ambulatory assistive devices: Rolling Walker Patient states the presence of the following traits which increases risk of fall: weakness Patient is not on home O2 Completed by: Juanita Daigle MA [facility] 08-10-2023 History of Present illness Narrative [facility] SURGICAL WEIGHT LOSS MANAGEMENT PROGRAM PROGRESS NOTE FOLLOW UP Patient: Giovana Powell Date of : 1950 Service Date: 08/10/2023 DE Visit number: 4 of 6 Pre Program Weight Metrics Date of Initial Consultation:@FLOWLAST([id number])@ Initial Weight: @FLOWLAST([id number])@ Initial BMI: @FLOWLAST([id number])@ [place] Body Weight: @FLOWLAST([id number])@ Excess Body Weight: @FLOWLAST([id number])@ Follow Up Weight Metrics Last Three Weights Including Today's Weight: Wt Readings from Last 3 Encounters: 08/10/23 222 lb (101 kg) 07/09/23 226 lb 3.2 oz (103 kg) 06/25/23 221 lb 9.6 oz (101 kg) Today's BMI: BMI: 43.35 %EBWL: % EBWL: 1% Weight Chance Since Last Visit: Weight Change: -4.2 lbs Weight Change from Initial DE/SPR Weight: Total Weight Change: -1.4 lbs Patient has the following question(s): none Falls Risk Assessment Patient doestake medications which affect BP or mental status Patient does not have newly prescribed or changed dosage of medications within past 30 days which affect BP or mental status Patient has fallen in the past 2 months Patient doesdemonstrate unsteady gait Patient uses the following ambulatory assistive devices: Rolling Walker Patient states the presence of the following traits which increases risk of fall: weakness Patient is not on home O2 Completed by: Juanita Daigle MA [facility] - SURGICAL WEIGHT LOSS MANAGEMENT PROGRAM PHYSICIAN SUPERVISED DIET AND EXERCISE SURGICAL PREPARATORY REGIMEN - FOLLOW UP Patient is here today for follow up of their physician supervised diet and exercise in preparation for weight loss surgery Weight trend since last visit: lost 4 pounds. This patient's excess weight is causing the following co-morbid conditions at this time: GERD, Fatty Liver Disease, High Cholesterol, HTN, and JENNIFER with or without CPAP The patient does not have any acute complaints. Physical Examination: BP (!) 150/88 Pulse 86 Ht 5' (1.524 m) Wt 222 lb (101 kg) BMI 43.36 kg/m Awake, alert, and oriented, no apparent distress. No respiratory distress, no conversational dyspnea Neurologic: Intact x 4 extremities, no focal deficits notes. No slurred speech Ambulatory without assistance. Assessment of Current Diet and Exercise Current Diet Healthy meal plan choices Plan: --Obesity Class III, Elevated BMI Diet and exercise (DE) Following with bariatric surgery Advised patient that they must adhere to regular monthly visits to meet the requirements of the insurance company. Additionally, they must demonstrate meal plan adoption to show readiness for the changes that will be required following surgery. Diet recommendations provided to patient verbally and in the form of handouts; they understood and agreed with plan. -Ms. Powell was evaluated by obesity medicine provider Dr. Mesa in May. Prescribed Wegovy at that time - this medication was denied by insurance. -Tolerating Trulicity well - a shared decision was made to continue the current dosage -also on Metformin (per PCP) and tolerating well -No constipation (occasionally requires Metamucil and prune juice) -Ms. Powell states she may not be interested in metabolic surgery. She will think about this further and discuss with her psychiatrist and make a decision by next month --HTN: asymptomatic, stable, continue current meds per outpatient providers, continue monitoring --Pre-Diabetes, Patient will follow up with their outpatient providers for diabetes management Hgb A1c 6.2 (07/09/23) --Sleep apnea: does not wear PAP (intolerant), we discussed potential life threatening risks of untreated sleep apnea, she understood and agrees to follow up with her sleep specialist in [place] --smoking cessation: recently quit with nicotine patch --Fatty liver, per outpatient providers, continue above plan (diet, exercise, metabolic surgery, anti-obesity medication) --GERD: per outpatient providers, continue above plan (diet, exercise, metabolic surgery, anti-obesity medication) --HLD: per outpatient providers, continue above plan (diet, exercise, metabolic surgery, anti-obesity medication) --Psychiatry: follows with psychiatry, on cariprazine (Vraylar) and other medications per psychiatry -Abdominal hernia repair that was done during her hysterectomy at age 44. Labs June 2023 discussed with [facility], she agrees to follow with her outpatient providers. --Elevated CO2, risks of untreated sleep apnea discussed as above, follow with her PCP --Low HDL: Trulicity and activity as tolerated will help, she agrees to follow with PCP --vitamin D deficiency: on vitamin D --Leukocytosis and elevated platelets: follows with hematology/oncology ([facility], Dr. Russell) Advised patient to continue to adhere to regular monthly visits to meet the requirements of the insurance company. Additionally, they must adopt meal plan recommendations to demonstrate readiness for the changes that will be required following surgery. Patient's eating behaviors does demonstrates adoption of eating plan recommendations. Physician diet recommendations provided to the patient. Plan of care discussed with patient, all questions answered, they agree with plan of care. Medical decision making: Patient's medical conditions place them at a moderate risk of complications, morbidity, and mortality. Patient: [x] To return in one month for follow up [] Has completed insurance required monthly diet and exercise series [] Needs to continue monthly visits until authorization/surgery date obtained. ([place]) No orders of the defined types were placed in this encounter. Current Meds Patient's Medications New Prescriptions No medications on file Previous Medications ANTIFUNGAL 2 % POWDER ASCORBIC ACID (VITAMIN C) 500 MG ER CAPSULE Take 500 mg by mouth. BUPRENORPHINE ER (SUBLOCADE) 100 MG/0.5ML INJECTION Inject 1 each under the skin every month to absorb continually. CARIPRAZINE 3 MG CAPSULE Take 1 capsule by mouth in the morning. CHOLECALCIFEROL (VITAMIN D-3) 100 MCG (4000 UT) CAPSULE Take 1 capsule (100 mcg) by mouth daily. CYANOCOBALAMIN (B-12) [address] 500 mcg under the tongue daily. Place 500 mcg under the tongue to dissolve once daily DIVALPROEX (DEPAKOTE ER) 500 MG 24 HR TABLET Take 50 mg by mouth in the morning and 50 mg in the evening. DULAGLUTIDE (TRULICITY) 0.75 MG/0.5ML SOLUTION PEN-INJECTOR Inject 0.75 mg under the skin 1 (one) time per week. FEROSUL 325 (65 FE) MG TABLET Take 325 mg by mouth every other day. FESOTERODINE ER (TOVIAZ) 4 MG 24 HR TABLET Take 4 mg by mouth daily. FUROSEMIDE (LASIX) 20 MG TABLET Take 20 mg by mouth daily. HYDRALAZINE (APRESOLINE) 10 MG TABLET Take 10 mg by mouth in the morning. LAMOTRIGINE (LAMICTAL) 200 MG TABLET Take 1 tablet by mouth Nightly. LISINOPRIL 40 MG TABLET Take 40 mg by mouth. METAMUCIL FIBER PO Take by mouth. METOPROLOL SUCCINATE XL (TOPROL-XL) 25 MG 24 HR TABLET Take 25 mg by mouth daily. METOPROLOL SUCCINATE XL (TOPROL-XL) 50 MG 24 HR TABLET Take 50 mg by mouth in the morning. MYRBETRIQ 50 MG 24 HR TABLET Take 50 mg by mouth daily. NICOTINE (NICOTINE STEP 2) 14 MG/24HR PATCH Place 1 patch on the skin Every 24 hours. Modified Medications No medications on file Discontinued Medications No medications on file I reviewed all of the patient's medications and diagnoses listed in Epic. documented in this encounter [facility] 08-05-2023 History of Present illness Narrative [facility] BARIATRIC NUTRITION ASSESSMENT / DIET & EXERCISE SURGICAL WEIGHT LOSS MANAGEMENT PROGRAM Date: 08/05/23 Patient Name: Giovana Powell Date of : 1950 Type of Assessment: [x] Surgical Patient - Pre-op Initial Assessment Weight Metrics: Today's Height: Today's Weight: Today's BMI: There is no height or weight on file to calculate BMI. Surgeon: Dr. Ledezma Surgical Procedure: [x] Sleeve Gastrectomy Preop Diet: 2 wks CURRENT EATING BEHAVIORS: eats large portions CURRENT EATING HABITS/ADDITIONAL INFORMATION 24 hour recall Breakfast: carrizales + toast Lunch: protein drink Dinner: ---- Snacks: ---- Drinks: coffee + water + prune juice KNOWLEDGE AND EDUCATION ASSESSMENT AND PLAN Patient's level of knowledge regarding the changes that will have to be made in their diet following weight loss surgery is: [x] Excellent - patient is well informed. Areas of concern include: carbohydrates and caffeine, protein Current eating practices that will require change with surgery: Protein at all meals, increase complex CHO decrease simple CHO, eliminate caffeine, ensure good fluid intake RECOMMENDATIONS AND PLAN [x] Educational Materials Provided [x]Strategies for Eating handout given to and discussed with patient [] Patient cleared for weight loss surgery Patient able to state major diet changes that need to be made following surgery Patient states/demonstrates readiness to make necessary diet changes [x] Anticipate clearing patient for weight loss surgery, but need to see patient again: [x] after patient reviews educational materials [x] Follow-up: virtual Diagnoses: Obesity Pt has decreased meal frequency d/t lack of appetite from trulicity. Reviewed rationale of not skipping meals. Pt notes she is likely not at 64 oz water/day. Drinking coffee daily Goals 1. Reduce coffee by 1 cup every month 2. Ensure protein at all meals Bariatric Nutrition Assessment completed by: Lashonda Mason RD documented in this encounter [facility] 07-14-2023 Telephone encounter Note So far, we haven't received anything from the pharmacy about a prior authorization for Trulicity. When I spoke to the patient, I also told her to call us if there was any issues. [facility] 07-14-2023 Miscellaneous Notes So far, we haven't received anything from the pharmacy about a prior authorization for Trulicity. When I spoke to the patient, I also told her to call us if there was any issues. Thank you, yes Trulicity was recommended by the insurance company since Mounjaro is not covered. How will we know if Trulicity is covered by insurance? Thanks again FYI: Spoke with patient. States that she was put on Metformin from Dr. Baird because she is a diabetic now . Mounjaro prior authorization was denied by her insurance. Pt was told that Trulicity was sent into her pharmacy, but pt seemed unaware that it was sent it. She was going to check with her pharmacy and was told if there was any issues to call us back. I called Ms. Powell and spoke with her. She wanted me to be aware of an abdominal hernia repair that was done during her hysterectomy at age 44. Ms. Powell re-iterated her lack of gastrointestinal symptoms, including but not limited to constipation, nausea/vomiting, and reflux. I informed her that the prior authorization for the anti-obesity medication (AOM) is in process. We again discussed potential side effects of the injectable AOMs. Ms. Powell understood and agreed to proceed with the prescription. Ms. Powell had no other questions/concerns. Kareem Hartmann MD 9:45 AM 07/10/2023 Started PA through CMM Patient left stating she has a question for Dr. Hartmann and would like a call back. documented in this encounter [facility] 07-14-2023 Telephone encounter Note Thank you, yes Trulicity was recommended by the insurance company since Mounjaro is not covered. How will we know if Trulicity is covered by insurance? Thanks again [facility] 07-14-2023 Telephone encounter Note FYI: Spoke with patient. States that she was put on Metformin from Dr. Baird because she is a diabetic now . Mounjaro prior authorization was denied by her insurance. Pt was told that Trulicity was sent into her pharmacy, but pt seemed unaware that it was sent it. She was going to check with her pharmacy and was told if there was any issues to call us back. [facility] 07-10-2023 Telephone encounter Note Signed, thanks [facility] 07-10-2023 Miscellaneous Notes Signed, thanks Noted, thank you! Called and spoke with pt regarding labs. Pt states not sure is going to have WLS. Pt wants this RD to send Dr. Hartmann message about HbA1c. This RD let pt know will do so, and that Dr. Hartmann will also see in the results. Pt reports does not take magnesium. Pt unsure of hydration status at time of labs. Recommend: Begin Vitamin D3: 4000 international units Begin Vitamin B12 (SL): 500 mcg/day Pt requests Rxs. Rxs pending. Please sign. Thank you! Will monitor magnesium in 1 month and other labs in 3 months. Orders pending. Please sign. Thank you! Pre-op_JZ 07/09/2023 Vitamin D: 20 (L) Magnesium: 2.5 (H) Vitamin B12: 333 (L end NL) MyChart message sent regarding labs. documented in this encounter [facility] 07-10-2023 Telephone encounter Note Noted, thank you! [employer] Work Phone: 07-10-2023 Telephone encounter Note Called and spoke with pt regarding labs. Pt states not sure is going to have WLS. Pt wants this RD to send Dr. Hartmann message about HbA1c. This RD let pt know will do so, and that Dr. Hartmann will also see in the results. Pt reports does not take magnesium. Pt unsure of hydration status at time of labs. Recommend: Begin Vitamin D3: 4000 international units Begin Vitamin B12 (SL): 500 mcg/day Pt requests Rxs. Rxs pending. Please sign. Thank you! Will monitor magnesium in 1 month and other labs in 3 months. Orders pending. Please sign. Thank you! [facility] 07-10-2023 History of Present illness Narrative Message regarding prior authorization reviewed. Recommendation is to substitute Rickey for Mounjaro. Changes made and prescription sent to pharmacy. documented in this encounter [facility] 07-10-2023 Telephone encounter Note I called Ms. Powell and spoke with her. She wanted me to be aware of an abdominal hernia repair that was done during her hysterectomy at age 44. Ms. Powell re-iterated her lack of gastrointestinal symptoms, including but not limited to constipation, nausea/vomiting, and reflux. I informed her that the prior authorization for the anti-obesity medication (AOM) is in process. We again discussed potential side effects of the injectable AOMs. Ms. Powell understood and agreed to proceed with the prescription. Ms. Powell had no other questions/concerns. Kareem Hartmann MD 9:45 AM 07/10/2023 [facility] 07-10-2023 Miscellaneous Notes I called Ms. Powell and spoke with her. She wanted me to be aware of an abdominal hernia repair that was done during her hysterectomy at age 44. Ms. Powell re-iterated her lack of gastrointestinal symptoms, including but not limited to constipation, nausea/vomiting, and reflux. I informed her that the prior authorization for the anti-obesity medication (AOM) is in process. We again discussed potential side effects of the injectable AOMs. Ms. Powell understood and agreed to proceed with the prescription. Ms. Powell had no other questions/concerns. Kareem Hartmann MD 9:45 AM 07/10/2023 Started PA through CMM Patient left VM stating she has a question for Dr. Hartmann and would like a call back. documented in this encounter [facility] 07-10-2023 Telephone encounter Note Started PA through CMM [facility] 07-09-2023 Telephone encounter Note Patient left VM stating she has a question for Dr. Hartmann and would like a call back. [facility] 07-09-2023 Telephone encounter Note Pre-op_JZ 07/09/2023 Vitamin D: 20 (L) Magnesium: 2.5 (H) Vitamin B12: 333 (L end NL) [employer] message sent regarding labs. [facility] 07-09-2023 Note Addended by: MARCELO LAM on: 07/09/2023 10:11 AM Modules accepted: Orders [facility] 07-09-2023 Note BARIATRIC CARE [facility] SURGICAL WEIGHT LOSS MANAGEMENT PROGRAM PROGRESS NOTE FOLLOW UP Patient: Giovana Powell Date of : 1950 Service Date: 07/09/2023 DE Visit number: 3 of 6 Pre Program Weight Metrics Date of Initial Consultation:@FLOWLAST([id number])@ Initial Weight: @FLOWLAST([id number])@ Initial BMI: @FLOWLAST([id number])@ [place] Body Weight: @FLOWLAST([id number])@ Excess Body Weight: @FLOWLAST([id number])@ Follow Up Weight Metrics Last Three Weights Including Today's Weight: Wt Readings from Last 3 Encounters: 07/09/23 226 lb 3.2 oz (103 kg) 06/25/23 221 lb 9.6 oz (101 kg) 06/17/23 223 lb (101 kg) Today's BMI: BMI: 44.17 %EBWL: % EBWL: -3% Weight Chance Since Last Visit: Weight Change: 3.2 lbs Weight Change from Initial DE/SPR Weight: Total Weight Change: 2.8 lbs Patient has the following question(s): none Falls Risk Assessment Patient doestake medications which affect BP or mental status Patient does not have newly prescribed or changed dosage of medications within past 30 days which affect BP or mental status Patient has fallen in the past 2 months Patient doesdemonstrate unsteady gait Patient uses the following ambulatory assistive devices: Rolling Walker Patient states the presence of the following traits which increases risk of fall: Patient is not on home O2 Completed by: Evelyn Chambers MA [facility] 07-09-2023 Note Addended by: MARCELO LAM on: 07/09/2023 10:11 AM Modules accepted: Orders [facility] 07-09-2023 Note Addended by: MARCELO LAM on: 07/09/2023 10:11 AM Modules accepted: Orders [facility] 07-09-2023 Note Addended by: MARCELO LAM on: 07/09/2023 10:11 AM Modules accepted: Orders [facility] 07-09-2023 Note Addended by: MARCELO LAM on: 07/09/2023 10:11 AM Modules accepted: Orders [facility] 07-09-2023 Miscellaneous Notes Addended by: MARCELO LAM on: 07/09/2023 10:11 AM Modules accepted: Orders Orders mailed- with pain management clearance and neurology clearance form Addended by: BRETT BERNAL on: 05/13/2023 09:07 AM Modules accepted: Orders Signed and printed orders Neuro clearance will be needed once we know name of provider- she has appt in May Psych clearance will defer to our psychologists to obtain records from Dr. Ga Addended by: MONICA MORRIS on: 05/11/2023 08:06 AM Modules accepted: Orders Orders pended, Pre op check list scanned to media. EGD order sent to ALS. Plan: I have recommended proceeding with the evaluation, workup and marketing sales consultant preoperative consultations and testing for the primary procedure as outlined below: BARIATRIC AND METABOLIC SURGERY [facility] PATIENT SUMMARY Giovana Ledezma 72 y.o. female with Body mass index is 42.73 kg/m . Planned Procedures: Laparoscopic Sleeve Gastrectomy and Laparoscopic Liver Biopsy DM[] HTN[x] JENNIFER[x] GERD[] HL[x] OA[] TOB[x] Date of Surgery: TBD MADINA BAIRD INITIAL PRE-OP TESTING ORDERS/ RESULTS Labwork [x] CMP, TSH, Fasting Lipid Profile, Mg, Zinc, Vit B1 (whole blood), Vit B12, 25-OH Vit D, Fe, Ferritin, Folate, Hgb A1c EGD [x] Dx: [] GERD [x] Dyspepsia [] Other [] Not ordered Pathology [x] H. pylori [] Negative [] Positive [] Stool Antigen UGI [x] US Abdomen [] [x] S/p carlos alberto [] Not ordered JENNIFER eval [] [] On CPAP / Obtain settings Toxicology [x] [x] Urine drug screen/ETOH [x] Nicotine Additional [] INITIAL CONSULTATIONS ORDERED CLEARANCE / MANAGEMENT Psychology [x] Dietitian [x] Cardiology [x] Pulmonary [x] Others [] []Heme/Onc [x]Pain mgmt: Dr. Lin [x]Other: Dr. Ga - psych ALSO - will need clearance from Neurology - seeing him (new provider) in May 2023 PSD [x] Physician supervised diet: []None []3 mos [x]6 mos Preop diet [x] Preop low calorie diet: []1 wk [x]2 wks [] Other: FINAL PRE-OP TESTING ORDERS RESULTS Labwork [x] [x] CBC [x]BMP []Serum Nicotine / Cotinine EKG [x] CXR [] POST-OP MEDICATIONS Ulcer Ppx [] Omeprazole 20 mg PO []QD Gallstone Ppx [] Ursodiol 300 mg []BID DVT Ppx [] DVT prophylaxis per final preop visit estimated risk Estimated calculated risk: % Schedule final pre-operative office visit with surgeon, pre-operative education class, and pre-operative exercise class prior to date of surgery I had a long discussion with her regarding our options. She will need to quit smoking and she is aware, she will work with her PCP for patches. She has a history of substance abuse, she has been clean for over 12 years and gets monthly injections. She also has a history of bipolar and has been hospitalized approximately 3 years ago. Since they have started Vraylar she has been very well controlled and has a new psychiatrist that she has been compliant with, both in [place] and now in [place] She will need 6 months of physician directed diet and exercise, all of her questions were answered to her satisfaction and we will move forward with the medical and cardiac risk stratification and insurance precertification process I met with her today to discuss risks and benefits of laparoscopic weight loss surgery, the risks and benefits are outlined as above and visual aids were used to describe the procedure. I personally performed the evaluation and management of Giovana Powell in the development of a treatment plan for this patient. I personally interviewed the patient and performed an individual physical examination. In addition, I discussed the patient's condition and treatment options with them. I have also reviewed and agree with the past medical, family and social history unless otherwise noted. All of the patient's questions were answered. I discussed/counseled the patient regarding the risks and benefits of surgery as well as the preoperative and postoperative care plan for this patient. The patient was seen and examined independently and relevant data reviewed by myself. A full chart review was performed. Due to the complexity of the patients condition as well as having at least one medical condition as listed above in medical history that is progressing despite medical management, this patient is considered high medical decision making and surgical intervention is necessary to help decrease the risk of continued chronic illness. The patient was seen and examined independently and relevant data reviewed by myself. A full chart review was performed. Patient Care Team: Leopoldo Baird as PCP - General Adelina Lin DO (Addiction Medicine) Dejah Drew APRN - PATRICIO (Nurse Practitioner) Manjit Ga DO (Psychiatry) Initial New [facility] surgical patient Navigation & Financial Counseling Discussion Patient Communication: In office SURGEON: [x] JFátima [] AD [] MP [] TB [] LM PROCEDURE: [] LRYGB [] LSG [] SIMI-S [] SIMI [] UNDECIDED [] REV: SPECIFY: Confirmed pt wants to continue with surgical program/plan [] YES [] NO (complete program withdrawal note/process) CO-MORBIDS: [] NONE [] DM []HTN [] JENNIFER []GERD [] OTH: PRIVATE PAY: [] NO []YES DATE OF INITIAL BENEFITS VERIFICATION: TRANSFER FU: [] YES [] NO PRIMARY INSURANCE: Payor: [employer] MEDICARE / Plan: [employer] DUAL ADVANTAGE / Product Type: Medicare HMO / BENEFIT ON PLAN: [] NO [] YES BENEFIT MAX: [] NO [] YES -- BENEFIT MAX: $ EMPLOYER: DIET AND EXERCISE (DE) REQUIREMENT PRIMARY [] NONE []3M [x] 6M []9M [] Medicare 4 Months [] SPR (3M) []OTHER: SECONDARY INSURANCE: BENEFIT ON PLAN: [] NO [] YES BENEFIT MAX: [] NO [] YES -- BENEFIT MAX: $ AUTH REQUIRED FROM SECONDARY [] NO [] YES DIET AND EXERCISE REQUIREMENT SECONDARY [] NONE []3M [] 6M [] Medicare 4 months [] SPR (3M) []OTHER: ___ [x] Discussed with patient: Financial cost overview (document signed and pt given copy at new pt consult visit with surgeon), Initial appointments: Bariatric Nutrition Assessment (BNA) & Diet and Exercise (DE) Patient to look for yellow envelope in mail. This yellow envelope will contain orders for labs, testing and required clearances. Pt encouraged to complete early in program to prevent delays. Encourage blood work to be draw by 1st DE appointment. [x] Reviewed OOP cost, including: [] Optifast cost of approximately $130-140/week x weeks immediately prior to surgery - used to induce rapid weight loss which results in decrease in size of liver and therefore facilitates laparoscopically surgery approach. [] Overview of inpatient admission benefits - estimated inpatient co-pays, deductibles and/or co-insurance - Estimated OOP costs form reviewed with patient, and copy given to patient at new pt visit. [x] Reviewed next steps with patient: 1) Scheduled at new pt surgeon visit: Outsole Cementer Machine (RD) for a Nutrition Assessment (BNA) and Pre-operative Diet and Exercise (DE) appointment #1. [x] Patient reminded to arrive 15 minutes early for check in. Late arrivals may need to be rescheduled. 2) Schedule: Diet and Exercise Apt #2 only scheduled after initial BNA and DE completed, 3) Behavioral Health apt scheduled after DE started. Reviewed rational and goal of Behavioral Health appointments. 4) [x] Reinforced need to cancel any WMI appointments 48 hours in advance. Cautioned NS/Same day cancellations may result in delay in program or program completion hold. Noted: DE series needs to be a monthly series or insurance company may require repeat of the entire series. 5) [x] Smoker/tobacco products including vaping: reviewed need for cessation before surgery clearance and life long abstinence after surgery for best outcomes. Patient navigation to surgery: [x] Explained to patient that average time from initial consult to date of surgery can be 6-8 months. - Process can take longer if there are cancelled appointments, delays in testing and/or additional clearances that needs to be completed. - Reviewed importance of patient active engagement in making and keeping appointments to keep the process moving. - Reinforced need to cancel appointments at least 48 hours in advance. Reviewed that instances of No Shows and Same Day Appointment Cancellations may result in program/surgery delay or hold. [x] Patient advised of importance of having voicemail and MyChart for office communications and lab/testing results before and after surgery. documented in this encounter [facility] 07-09-2023 History of Present illness Narrative [facility] SURGICAL WEIGHT LOSS MANAGEMENT PROGRAM PROGRESS NOTE FOLLOW UP Patient: Giovana Powell Date of : 1950 Service Date: 07/09/2023 DE Visit number: 3 of 6 Pre Program Weight Metrics Date of Initial Consultation:@FLOWLAST([id number])@ Initial Weight: @FLOWLAST([id number])@ Initial BMI: @FLOWLAST([id number])@ [place] Body Weight: @FLOWLAST([id number])@ Excess Body Weight: @FLOWLAST([id number])@ Follow Up Weight Metrics Last Three Weights Including Today's Weight: Wt Readings from Last 3 Encounters: 07/09/23 226 lb 3.2 oz (103 kg) 06/25/23 221 lb 9.6 oz (101 kg) 06/17/23 223 lb (101 kg) Today's BMI: BMI: 44.17 %EBWL: % EBWL: -3% Weight Chance Since Last Visit: Weight Change: 3.2 lbs Weight Change from Initial DE/SPR Weight: Total Weight Change: 2.8 lbs Patient has the following question(s): none Falls Risk Assessment Patient doestake medications which affect BP or mental status Patient does not have newly prescribed or changed dosage of medications within past 30 days which affect BP or mental status Patient has fallen in the past 2 months Patient doesdemonstrate unsteady gait Patient uses the following ambulatory assistive devices: Rolling Walker Patient states the presence of the following traits which increases risk of fall: Patient is not on home O2 Completed by: Evelyn Chambers [facility] - SURGICAL WEIGHT LOSS MANAGEMENT PROGRAM PHYSICIAN SUPERVISED DIET AND EXERCISE SURGICAL PREPARATORY REGIMEN - FOLLOW UP Patient is here today for follow up of their physician supervised diet and exercise in preparation for weight loss surgery Weight trend since last visit: gain 3 pounds. This patient's excess weight is causing the following co-morbid conditions at this time: GERD, Fatty Liver Disease, High Cholesterol, HTN, and JENNIFER with or without CPAP The patient does not have any acute complaints. Physical Examination: BP (!) 142/84 Pulse 75 Resp 16 Ht 5' (1.524 m) Wt 226 lb 3.2 oz (103 kg) BMI 44.18 kg/m Awake, alert, and oriented, no apparent distress. No respiratory distress, no conversational dyspnea Neurologic: Intact x 4 extremities, no focal deficits notes. No slurred speech Ambulatory without assistance. Assessment of Current Diet and Exercise Current Diet After dinner / night eating: no eating after 5pm Breakfast: daily Carbohydrate with protein: yes Cravings: improved Sugar sweetened beverages: sweetened coffee (3-4 cups daily) Plan: --Obesity Class III, Elevated BMI Diet and exercise (DE) Following with bariatric surgery Advised patient that they must adhere to regular monthly visits to meet the requirements of the insurance company. Additionally, they must demonstrate meal plan adoption to show readiness for the changes that will be required following surgery. Diet recommendations provided to patient verbally and in the form of handouts; they understood and agreed with plan. -Ms. Powell was evaluated by obesity medicine provider Dr. Mesa in May. Prescribed Wegovy at that time - this medication was denied by insurance. A shared decision was made to start Mounjaro (GLP-1 agonist / GIP). Risks/benefits discussed in detail. The patient understood and agrees with plan. Risks including but not limited to the following were discussed: -Constipation, nausea/vomiting, abdominal pain, diarrhea -Acute kidney injury -Pancreatitis - denies -Medullary thyroid cancer / Multiple endocrine neoplasia 2 (MEN2) syndrome (personal or family history) - denies -Hypoglycemia - patient understood -increased incidence diabetic retinopathy -gallbladder disease -may alter absorption of other meds -may also cause other rare side effects (such as low blood pressure, alopecia, rash/hives, blindness, dizziness) -GLP-1 agonists with other weight loss medications - efficacy/safety not established -Increased concentration with sleeve and RYGB -stop 2-3 weeks prior to gastric bypass surgery -Not in /planning -GI surgeries: cholecystectomy, hysterectomy -Anti-obesity medications are termite treater medications. Weight gain will likely result when medication is stopped. -The patient verbalized understanding of the above and agrees with the plan. Blood work to be done today to monitor renal function --HTN: controlled, asymptomatic, stable, continue current meds per outpatient providers, continue monitoring --Pre-Diabetes, diet controlled, discussed blood glucose could decrease with weight loss. Patient understood. They are aware of symptoms of hypoglycemia and treatment of hypoglycemia. Patient will follow up with their outpatient providers for diabetes management --Sleep apnea: does not wear PAP (intolerant), we discussed potential life threatening risks of untreated sleep apnea before and after surgery last visit, she understood and agrees to follow up with her sleep specialist in [place], she also requires pulmonology clearance prior to surgery --smoking cessation: recently quit with nicotine patch --Fatty liver, per outpatient providers, continue above plan (diet, exercise, metabolic surgery, anti-obesity medication) --GERD: per outpatient providers, continue above plan (diet, exercise, metabolic surgery, anti-obesity medication) --HLD: per outpatient providers, continue above plan (diet, exercise, metabolic surgery, anti-obesity medication) -Constipation: resolved with Metamucil and prune juice. No recent constipation Advised patient to continue to adhere to regular monthly visits to meet the requirements of the insurance company. Additionally, they must adopt meal plan recommendations to demonstrate readiness for the changes that will be required following surgery. Patient's eating behaviors does demonstrates adoption of eating plan recommendations. Physician diet recommendations provided to the patient. Plan of care discussed with patient, all questions answered, they agree with plan of care. Medical decision making: Patient's medical conditions place them at a moderate risk of complications, morbidity, and mortality. Patient: [x] To return in one month for follow up [] Has completed insurance required monthly diet and exercise series [] Needs to continue monthly visits until authorization/surgery date obtained. (Logan) No orders of the defined types were placed in this encounter. Current Meds Patient's Medications New Prescriptions No medications on file Previous Medications ANTIFUNGAL 2 % POWDER ASCORBIC ACID (VITAMIN C) 500 MG ER CAPSULE Take 500 mg by mouth. BUPRENORPHINE ER (SUBLOCADE) 100 MG/0.5ML INJECTION Inject 1 each under the skin every month to absorb continually. CARIPRAZINE 3 MG CAPSULE Take 1 capsule by mouth in the morning. DIVALPROEX (DEPAKOTE ER) 500 MG 24 HR TABLET Take 50 mg by mouth in the morning and 50 mg in the evening. FEROSUL 325 (65 FE) MG TABLET Take 325 mg by mouth every other day. FESOTERODINE ER (TOVIAZ) 4 MG 24 HR TABLET Take 4 mg by mouth daily. FUROSEMIDE (LASIX) 20 MG TABLET Take 20 mg by mouth daily. HYDRALAZINE (APRESOLINE) 10 MG TABLET Take 10 mg by mouth in the morning. LAMOTRIGINE (LAMICTAL) 200 MG TABLET Take 1 tablet by mouth Nightly. LISINOPRIL 40 MG TABLET Take 40 mg by mouth. METAMUCIL FIBER PO Take by mouth. METOPROLOL SUCCINATE XL (TOPROL-XL) 25 MG 24 HR TABLET Take 25 mg by mouth daily. METOPROLOL SUCCINATE XL (TOPROL-XL) 50 MG 24 HR TABLET Take 50 mg by mouth in the morning. MYRBETRIQ 50 MG 24 HR TABLET Take 50 mg by mouth daily. NICOTINE (NICOTINE STEP 2) 14 MG/24HR PATCH Place 1 patch on the skin Every 24 hours. SEMAGLUTIDE-WEIGHT MANAGEMENT (WEGOVY) 0.25 MG/0.5ML SOLUTION AUTO-INJECTOR Inject 0.5 mL (0.25 mg) under the skin every 7 days. Modified Medications No medications on file Discontinued Medications No medications on file I reviewed all of the patient's medications and diagnoses listed in Epic. documented in this encounter [facility] 07-09-2023 History of Present illness Narrative [facility] SURGICAL WEIGHT LOSS MANAGEMENT PROGRAM PROGRESS NOTE FOLLOW UP Patient: Giovana Powell Date of : 1950 Service Date: 07/09/2023 DE Visit number: 3 of 6 Pre Program Weight Metrics Date of Initial Consultation:@FLOWLAST([id number])@ Initial Weight: @FLOWLAST([id number])@ Initial BMI: @FLOWLAST([id number])@ [place] Body Weight: @FLOWLAST([id number])@ Excess Body Weight: @FLOWLAST([id number])@ Follow Up Weight Metrics Last Three Weights Including Today's Weight: Wt Readings from Last 3 Encounters: 07/09/23 226 lb 3.2 oz (103 kg) 06/25/23 221 lb 9.6 oz (101 kg) 06/17/23 223 lb (101 kg) Today's BMI: BMI: 44.17 %EBWL: % EBWL: -3% Weight Chance Since Last Visit: Weight Change: 3.2 lbs Weight Change from Initial DE/SPR Weight: Total Weight Change: 2.8 lbs Patient has the following question(s): none Falls Risk Assessment Patient doestake medications which affect BP or mental status Patient does not have newly prescribed or changed dosage of medications within past 30 days which affect BP or mental status Patient has fallen in the past 2 months Patient doesdemonstrate unsteady gait Patient uses the following ambulatory assistive devices: Rolling Walker Patient states the presence of the following traits which increases risk of fall: Patient is not on home O2 Completed by: Evelyn Chambers [facility] - SURGICAL WEIGHT LOSS MANAGEMENT PROGRAM PHYSICIAN SUPERVISED DIET AND EXERCISE SURGICAL PREPARATORY REGIMEN - FOLLOW UP Patient is here today for follow up of their physician supervised diet and exercise in preparation for weight loss surgery Weight trend since last visit: gain 3 pounds. This patient's excess weight is causing the following co-morbid conditions at this time: GERD, Fatty Liver Disease, High Cholesterol, HTN, and JENNIFER with or without CPAP The patient does not have any acute complaints. Physical Examination: BP (!) 142/84 Pulse 75 Resp 16 Ht 5' (1.524 m) Wt 226 lb 3.2 oz (103 kg) BMI 44.18 kg/m Awake, alert, and oriented, no apparent distress. No respiratory distress, no conversational dyspnea Neurologic: Intact x 4 extremities, no focal deficits notes. No slurred speech Ambulatory without assistance. Assessment of Current Diet and Exercise Current Diet After dinner / night eating: no eating after 5pm Breakfast: daily Carbohydrate with protein: yes Cravings: improved Sugar sweetened beverages: sweetened coffee (3-4 cups daily) Plan: --Obesity Class III, Elevated BMI Diet and exercise (DE) Following with bariatric surgery Advised patient that they must adhere to regular monthly visits to meet the requirements of the insurance company. Additionally, they must demonstrate meal plan adoption to show readiness for the changes that will be required following surgery. Diet recommendations provided to patient verbally and in the form of handouts; they understood and agreed with plan. -Ms. Powell was evaluated by obesity medicine provider Dr. Mesa in May. Prescribed Wegovy at that time - this medication was denied by insurance. A shared decision was made to start Mounjaro (GLP-1 agonist / GIP). Risks/benefits discussed in detail. The patient understood and agrees with plan. Risks including but not limited to the following were discussed: -Constipation, nausea/vomiting, abdominal pain, diarrhea -Acute kidney injury -Pancreatitis - denies -Medullary thyroid cancer / Multiple endocrine neoplasia 2 (MEN2) syndrome (personal or family history) - denies -Hypoglycemia - patient understood -increased incidence diabetic retinopathy -gallbladder disease -may alter absorption of other meds -may also cause other rare side effects (such as low blood pressure, alopecia, rash/hives, blindness, dizziness) -GLP-1 agonists with other weight loss medications - efficacy/safety not established -Increased concentration with sleeve and RYGB -stop 2-3 weeks prior to gastric bypass surgery -Not in /planning -GI surgeries: cholecystectomy, hysterectomy -Anti-obesity medications are group home medications. Weight gain will likely result when medication is stopped. -The patient verbalized understanding of the above and agrees with the plan. Blood work to be done today to monitor renal function --HTN: controlled, asymptomatic, stable, continue current meds per outpatient providers, continue monitoring --Pre-Diabetes, diet controlled, discussed blood glucose could decrease with weight loss. Patient understood. They are aware of symptoms of hypoglycemia and treatment of hypoglycemia. Patient will follow up with their outpatient providers for diabetes management --Sleep apnea: does not wear PAP (intolerant), we discussed potential life threatening risks of untreated sleep apnea before and after surgery last visit, she understood and agrees to follow up with her sleep specialist in [place], she also requires pulmonology clearance prior to surgery --smoking cessation: recently quit with nicotine patch --Fatty liver, per outpatient providers, continue above plan (diet, exercise, metabolic surgery, anti-obesity medication) --GERD: per outpatient providers, continue above plan (diet, exercise, metabolic surgery, anti-obesity medication) --HLD: per outpatient providers, continue above plan (diet, exercise, metabolic surgery, anti-obesity medication) -Constipation: resolved with Metamucil and prune juice. No recent constipation Advised patient to continue to adhere to regular monthly visits to meet the requirements of the insurance company. Additionally, they must adopt meal plan recommendations to demonstrate readiness for the changes that will be required following surgery. Patient's eating behaviors does demonstrates adoption of eating plan recommendations. Physician diet recommendations provided to the patient. Plan of care discussed with patient, all questions answered, they agree with plan of care. Medical decision making: Patient's medical conditions place them at a moderate risk of complications, morbidity, and mortality. Patient: [x] To return in one month for follow up [] Has completed insurance required monthly diet and exercise series [] Needs to continue monthly visits until authorization/surgery date obtained. (Logan) No orders of the defined types were placed in this encounter. Current Meds Patient's Medications New Prescriptions No medications on file Previous Medications ANTIFUNGAL 2 % POWDER ASCORBIC ACID (VITAMIN C) 500 MG ER CAPSULE Take 500 mg by mouth. BUPRENORPHINE ER (SUBLOCADE) 100 MG/0.5ML INJECTION Inject 1 each under the skin every month to absorb continually. CARIPRAZINE 3 MG CAPSULE Take 1 capsule by mouth in the morning. DIVALPROEX (DEPAKOTE ER) 500 MG 24 HR TABLET Take 50 mg by mouth in the morning and 50 mg in the evening. FEROSUL 325 (65 FE) MG TABLET Take 325 mg by mouth every other day. FESOTERODINE ER (TOVIAZ) 4 MG 24 HR TABLET Take 4 mg by mouth daily. FUROSEMIDE (LASIX) 20 MG TABLET Take 20 mg by mouth daily. HYDRALAZINE (APRESOLINE) 10 MG TABLET Take 10 mg by mouth in the morning. LAMOTRIGINE (LAMICTAL) 200 MG TABLET Take 1 tablet by mouth Nightly. LISINOPRIL 40 MG TABLET Take 40 mg by mouth. METAMUCIL FIBER PO Take by mouth. METOPROLOL SUCCINATE XL (TOPROL-XL) 25 MG 24 HR TABLET Take 25 mg by mouth daily. METOPROLOL SUCCINATE XL (TOPROL-XL) 50 MG 24 HR TABLET Take 50 mg by mouth in the morning. MYRBETRIQ 50 MG 24 HR TABLET Take 50 mg by mouth daily. NICOTINE (NICOTINE STEP 2) 14 MG/24HR PATCH Place 1 patch on the skin Every 24 hours. SEMAGLUTIDE-WEIGHT MANAGEMENT (WEGOVY) 0.25 MG/0.5ML SOLUTION AUTO-INJECTOR Inject 0.5 mL (0.25 mg) under the skin every 7 days. Modified Medications No medications on file Discontinued Medications No medications on file I reviewed all of the patient's medications and diagnoses listed in Epic. documented in this encounter [facility] 06-25-2023 Note 06/25/2023 REFERRING PHYSICIAN: LEOPOLDO BAIRD REASON FOR REFERRAL: Chief Complaint Patient presents with New Patient Chief complaint: Surgical clearance History of Present Illness: Considering having bariatric surgery. She says she is not sure she needs it, that she is losing weight on her own, that she has lost about 9 pounds. Her chart says she has COPD, she says she is not sure how they made that diagnosis, but she denies having any symptoms. She gets short of breath with exertion, but denies tightness or heaviness, denies cough or congestion, denies wheeze. Takes no inhalers for her breathing, and has never needed oxygen. Still smokes a pack per day. Also says she was diagnosed with sleep apnea, cannot tolerate CPAP, I have tried 100 different times . The only problem she is ever had with anesthesia sounds like it was more with conscious sedation, she had skin cancer and a plastic surgeon was resecting the cancer on her face and she stopped breathing, they had to put a tube down my throat . ROS: Review of Systems Constitutional: Negative. HENT: Negative. Eyes: Negative. Respiratory: HPI Cardiovascular: Negative. Gastrointestinal: Negative. Endocrine: Negative. Musculoskeletal: Negative. Skin: Negative. Allergic/Immunologic: Negative. Neurological: Negative. Hematological: Negative. Psychiatric/Behavioral: Negative. Past Medical History: Past Medical History: Diagnosis Date Anemia Anesthesia complication Arthritis Knee Chest pain on exertion COPD (chronic obstructive pulmonary disease) (HCC) Depression Difficulty moving head Difficulty sleeping WEIR (dyspnea on exertion) Fatigue Fatty liver GERD (gastroesophageal reflux disease) History of blood transfusion 1986 History of melanoma History of UTI Hyperlipidemia Hypertension Joint pain, knee Muscle weakness Prediabetes Seizures (HCC) Snoring Past Surgical History Past Surgical History: Procedure Laterality Date SECTION, LOW TRANSVERSE 1979, 1980, 1985 Dr. Newell/ [facility] CHOLECYSTECTOMY 2019 laparoscopic -[place] HYSTERECTOMY [facility] History: Social History Socioeconomic History Marital status: Tobacco Use Smoking status: Every Day Packs/day: 1.00 Types: Cigarettes Start date: 1987 Smokeless tobacco: Never Substance and Sexual Activity Alcohol use: Not Currently Drug use: Not Currently Sexual activity: Not Currently Social Determinants of Health Intimate Partner Violence: Not At Risk (06/16/2023) Humiliation, Afraid, Rape, and Kick questionnaire Fear of Current or Ex-Partner: No Emotionally Abused: No Physically Abused: No Sexually Abused: No Medications: Current Outpatient Medications Medication Sig Dispense Refill Antifungal 2 % powder ascorbic acid (Vitamin C) 500 MG ER capsule Take 500 mg by mouth. buprenorphine ER (Sublocade) 100 mg/0.5mL injection Inject 1 each under the skin every month to absorb continually. Cariprazine 3 MG capsule Take 1 capsule by mouth in the morning. divalproex (Depakote ER) 500 MG 24 hr tablet Take 50 mg by mouth in the morning and 50 mg in the evening. FeroSul 325 (65 Fe) MG tablet Take 325 mg by mouth every other day. fesoterodine ER (Toviaz) 4 MG 24 hr tablet Take 4 mg by mouth daily. furosemide (Lasix) 20 MG tablet Take 20 mg by mouth daily. hydrALAZINE (Apresoline) 10 MG tablet Take 10 mg by mouth in the morning. lamoTRIgine (LaMICtal) 200 MG tablet Take 1 tablet by mouth Nightly. lisinopril 40 MG tablet Take 40 mg by mouth. METAMUCIL FIBER PO Take by mouth. metoprolol succinate XL (Toprol-XL) 25 MG 24 hr tablet Take 25 mg by mouth daily. metoprolol succinate XL (Toprol-XL) 50 MG 24 hr tablet Take 50 mg by mouth in the morning. Myrbetriq 50 MG 24 hr tablet Take 50 mg by mouth daily. nicotine (Nicotine Step 2) 14 MG/24HR patch Place 1 patch on the skin Every 24 hours. Semaglutide-Weight Management (Wegovy) 0.25 MG/0.5ML solution auto-injector Inject 0.5 mL (0.25 mg) under the skin every 7 days. 2 mL 0 No current facility-administered medications for this visit. Allergies: Allergies Allergen Reactions Gadoxetate Shortness of breath MRI contrast MRI contrast MRI contrast MRI contrast Iloperidone Other reaction(s): Other FANAPT Lurasidone Other reaction(s): Other LATUDA Naproxen Hives Other reaction(s): Hives Paliperidone Other reaction(s): increased psychiatric symptoms INVEGA Theophylline Other reaction(s): Other Trazodone And Nefazodone Other reaction(s): Other Family History: Family History Problem Relation Name Age of Onset Cancer Sister Obesity Sister Diabetes Brother Hypertension Brother Obesity Brother Obesity Maternal Grandfather Obesity Maternal Grandmother Physical Exam: BP (!) 157/88 (Pt didn't take her BP med yet.) (06/25/23905) Temp Pulse 80 (06/25/23905) Resp 18 (more content not included)... [facility] 06-25-2023 History of Present illness Narrative Images from the original note were not included. 06/25/2023 REFERRING PHYSICIAN: LEOPOLDO BAIRD REASON FOR REFERRAL: Chief Complaint Patient presents with New Patient Chief complaint: Surgical clearance History of Present Illness: Considering having bariatric surgery. She says she is not sure she needs it, that she is losing weight on her own, that she has lost about 9 pounds. Her chart says she has COPD, she says she is not sure how they made that diagnosis, but she denies having any symptoms. She gets short of breath with exertion, but denies tightness or heaviness, denies cough or congestion, denies wheeze. Takes no inhalers for her breathing, and has never needed oxygen. Still smokes a pack per day. Also says she was diagnosed with sleep apnea, cannot tolerate CPAP, I have tried 100 different times . The only problem she is ever had with anesthesia sounds like it was more with conscious sedation, she had skin cancer and a plastic surgeon was resecting the cancer on her face and she stopped breathing, they had to put a tube down my throat . ROS: Review of Systems Constitutional: Negative. HENT: Negative. Eyes: Negative. Respiratory: HPI Cardiovascular: Negative. Gastrointestinal: Negative. Endocrine: Negative. Musculoskeletal: Negative. Skin: Negative. Allergic/Immunologic: Negative. Neurological: Negative. Hematological: Negative. Psychiatric/Behavioral: Negative. Past Medical History: Past Medical History: Diagnosis Date Anemia Anesthesia complication Arthritis Knee Chest pain on exertion COPD (chronic obstructive pulmonary disease) (HCC) Depression Difficulty moving head Difficulty sleeping WEIR (dyspnea on exertion) Fatigue Fatty liver GERD (gastroesophageal reflux disease) History of blood transfusion 1986 History of melanoma History of UTI Hyperlipidemia Hypertension Joint pain, knee Muscle weakness Prediabetes Seizures (HCC) Snoring Past Surgical History Past Surgical History: Procedure Laterality Date SECTION, LOW TRANSVERSE 1979, 1980, 1985 Dr. Newell/ [facility] CHOLECYSTECTOMY 2019 laparoscopic -[place] HYSTERECTOM[facility] Social History: Social History Socioeconomic History Marital status: Tobacco Use Smoking status: Every Day Packs/day: 1.00 Types: Cigarettes Start date: 1987 Smokeless tobacco: Never Substance and Sexual Activity Alcohol use: Not Currently Drug use: Not Currently Sexual activity: Not Currently Social Determinants of Health Intimate Partner Violence: Not At Risk (06/16/2023) Humiliation, Afraid, Rape, and Kick questionnaire Fear of Current or Ex-Partner: No Emotionally Abused: No Physically Abused: No Sexually Abused: No Medications: Current Outpatient Medications Medication Sig Dispense Refill Antifungal 2 % powder ascorbic acid (Vitamin C) 500 MG ER capsule Take 500 mg by mouth. buprenorphine ER (Sublocade) 100 mg/0.5mL injection Inject 1 each under the skin every month to absorb continually. Cariprazine 3 MG capsule Take 1 capsule by mouth in the morning. divalproex (Depakote ER) 500 MG 24 hr tablet Take 50 mg by mouth in the morning and 50 mg in the evening. FeroSul 325 (65 Fe) MG tablet Take 325 mg by mouth every other day. fesoterodine ER (Toviaz) 4 MG 24 hr tablet Take 4 mg by mouth daily. furosemide (Lasix) 20 MG tablet Take 20 mg by mouth daily. hydrALAZINE (Apresoline) 10 MG tablet Take 10 mg by mouth in the morning. lamoTRIgine (LaMICtal) 200 MG tablet Take 1 tablet by mouth Nightly. lisinopril 40 MG tablet Take 40 mg by mouth. METAMUCIL FIBER PO Take by mouth. metoprolol succinate XL (Toprol-XL) 25 MG 24 hr tablet Take 25 mg by mouth daily. metoprolol succinate XL (Toprol-XL) 50 MG 24 hr tablet Take 50 mg by mouth in the morning. Myrbetriq 50 MG 24 hr tablet Take 50 mg by mouth daily. nicotine (Nicotine Step 2) 14 MG/24HR patch Place 1 patch on the skin Every 24 hours. Semaglutide-Weight Management (Wegovy) 0.25 MG/0.5ML solution auto-injector Inject 0.5 mL (0.25 mg) under the skin every 7 days. 2 mL 0 No current facility-administered medications for this visit. Allergies: Allergies Allergen Reactions Gadoxetate Shortness of breath MRI contrast MRI contrast MRI contrast MRI contrast Iloperidone Other reaction(s): Other FANAPT Lurasidone Other reaction(s): Other LATUDA Naproxen Hives Other reaction(s): Hives Paliperidone Other reaction(s): increased psychiatric symptoms INVEGA Theophylline Other reaction(s): Other Trazodone And Nefazodone Other reaction(s): Other Family History: Family History Problem Relation Name Age of Onset Cancer Sister Obesity Sister Diabetes Brother Hypertension Brother Obesity Brother Obesity Maternal Grandfather Obesity Maternal Grandmother Physical Exam: BP (!) 157/88 (Pt didn't take her BP med yet.) (06/25/23905) Temp Pulse 80 (06/25/23905) Resp 18 (06/25/23905) SpO2 93 % (RA) (06/25/23905) Physical Exam Vitals and nursing note reviewed. Constitutional: General: She is not in acute distress. Appearance: Normal appearance. She is obese. She is not ill-appearing, toxic-appearing or diaphoretic. HENT: Head: Normocephalic and atraumatic. Nose: Nose normal. Mouth/Throat: Mouth: Mucous membranes are moist. Pharynx: Oropharynx is clear. No oropharyngeal exudate or posterior oropharyngeal erythema. Eyes: Extraocular Movements: Extraocular movements intact. Conjunctiva/sclera: Conjunctivae normal. Pupils: Pupils are equal, round, and reactive to light. Cardiovascular: Rate and Rhythm: Normal rate and regular rhythm. Heart sounds: Normal heart sounds. Pulmonary: Effort: Pulmonary effort is normal. No respiratory distress. Breath sounds: No stridor. No wheezing, rhonchi or rales. Musculoskeletal: General: No swelling or deformity. Cervical back: Neck supple. No rigidity. Lymphadenopathy: Cervical: No cervical adenopathy. Skin: General: Skin is warm and dry. Neurological: General: No focal deficit present. Mental Status: She is alert and oriented to person, place, and time. Motor: No weakness. Gait: Gait abnormal (Walks with a wheeled walker). Psychiatric: Mood and Affect: Mood normal. Behavior: Behavior normal. Thought Content: Thought content normal. Judgment: Judgment normal. Radiology: Last chest imaging was in care everywhere, had a CT of her chest in January 2017 that was read as no CT evidence of acute abnormality. Remote granulomatous disease PFT: None in the system Assessment and Plan: Giovana was seen today for new patient. Diagnoses and all orders for this visit: Chronic obstructive pulmonary disease, unspecified COPD type (HCC) (Primary) - Spirometry; Future Encounter for pre-operative respiratory clearance JENNIFER (obstructive sleep apnea) Smoker Morbid obesity (HCC) Needs to stop smoking Preoperative spirometry Cleared at moderate risk from pulmonary standpoint Share note with PCP and surgical weight management Follow-up: Follow up for Spirometry results. documented in this encounter [facility] 06-25-2023 Instructions Isha Garcia Rai, MA - 06/25/2023 10:00 AM EDT YOUR APPOINTMENT TODAY WAS WITH THE [facility], COPD CLINIC, PULMONARY AND SLEEP MEDICINE OFFICE. PLEASE CALL OUR OFFICE AT [phone] IF YOU HAVE NOT RECEIVED YOUR TEST RESULTS 7 DAYS AFTER TESTING IS COMPLETED. PLEASE REMEMBER TO REQUEST REFILLS AT YOUR OFFICE VISITS. PHONE/FAX REQUESTS REQUIRE 48-72 HOURS FOR RESPONSE. A FRIENDLY REMINDER COPAYS ARE DUE AT TIME OF SERVICE. THANK YOU. Our Patients Are Important! We want to improve and you can help. After your visit we want you to feel: Listened to, Respected and have your health care explained. You may receive a survey asking you about your visit. Please complete the survey. We will use your feedback to make improvements. COVID-19 VACCINATION INFORMATION: PH. [phone] [email or web address] [facility] Central Scheduling [phone] [facility] Sleep Scheduling [phone] documented in this encounter [facility] 06-17-2023 Note [facility] SURGICAL WEIGHT LOSS MANAGEMENT PROGRAM PROGRESS NOTE FOLLOW UP Patient: Giovana Powell Date of : 1950 Service Date: 06/17/2023 DE Visit number: 2 of 6 Pre Program Weight Metrics Date of Initial Consultation:@FLOWLAST([id number])@ Initial Weight: @FLOWLAST([id number])@ Initial BMI: @FLOWLAST([id number])@ [place] Body Weight: @FLOWLAST([id number])@ Excess Body Weight: @FLOWLAST([id number])@ Follow Up Weight Metrics Last Three Weights Including Today's Weight: Wt Readings from Last 3 Encounters: 06/17/23 223 lb (101 kg) 06/16/23 200 lb (90.7 kg) 05/14/23 223 lb 6.4 oz (101 kg) Today's BMI: 43.55 %EBWL: % EBWL: 0% Weight Chance Since Last Visit: Weight Change: -.4 lbs Weight Change from Initial DE/SPR Weight: Total Weight Change: -.4 lbs Patient has the following question(s): none Falls Risk Assessment Patient does nottake medications which affect BP or mental status Patient does not have newly prescribed or changed dosage of medications within past 30 days which affect BP or mental status Patient has not fallen in the past 2 months Patient does notdemonstrate unsteady gait Patient uses the following ambulatory assistive devices: none Patient states the presence of the following traits which increases risk of fall: none Patient is not on home O2 Completed by: Nata Bro LPN [facility] 06-17-2023 History of Present illness Narrative [facility] SURGICAL WEIGHT LOSS MANAGEMENT PROGRAM PROGRESS NOTE FOLLOW UP Patient: Giovana Powlel Date of : 1950 Service Date: 06/17/2023 DE Visit number: 2 of 6 Pre Program Weight Metrics Date of Initial Consultation:@FLOWLAST(8961)@ Initial Weight: @FLOWLAST([id number])@ Initial BMI: @FLOWLAST([id number])@ [place] Body Weight: @FLOWLAST([id number])@ Excess Body Weight: @FLOWLAST([id number])@ Follow Up Weight Metrics Last Three Weights Including Today's Weight: Wt Readings from Last 3 Encounters: 06/17/23 223 lb (101 kg) 06/16/23 200 lb (90.7 kg) 05/14/23 223 lb 6.4 oz (101 kg) Today's BMI: 43.55 %EBWL: % EBWL: 0% Weight Chance Since Last Visit: Weight Change: -.4 lbs Weight Change from Initial DE/SPR Weight: Total Weight Change: -.4 lbs Patient has the following question(s): none Falls Risk Assessment Patient does nottake medications which affect BP or mental status Patient does not have newly prescribed or changed dosage of medications within past 30 days which affect BP or mental status Patient has not fallen in the past 2 months Patient does notdemonstrate unsteady gait Patient uses the following ambulatory assistive devices: none Patient states the presence of the following traits which increases risk of fall: none Patient is not on home O2 Completed by: Nata Bro LPN HPI, PHYSICAL EXAM, AND PLAN Patient is here today for follow up of their physician supervised diet and exercise in preparation for weight loss surgery. Weight trend since last visit: gain 3 lb iver 1month Stable This patient's excess weight is causing the following co-morbid conditions at this time GERD Plan: Physical Examination: BP (!) 148/91 Pulse 82 Ht 5' (1.524 m) Wt 223 lb (101 kg) BMI 43.55 kg/m General: This patient is alert and oriented X3 General: This patient is awake, alert, and oriented, and is in no apparent distress. Extremities: No cyanosis, clubbing or edema/ No calf tenderness/ restrictions of movement, is ambulatory with assistance. Neurological: Intact x 4 extremities, no focal deficits notes. Skin: No rashes or lesions noted. Assessment of Current Diet and Exercise Current Diet This patient s current diet is: 80% meal plan, pureed food due to lack of teeth Her diet contains adequate amounts of protein, inadequate amounts of healthy fats, adequate amounts of green, leafy vegetables, and adequate amounts of fruits. Her comfort foods include: none Current Activity This patient currently does exercise for 15 Minutes per session, 4 times per week, including the following: chair exercises. Current Eating Behaviors This patients demonstrates the following behaviors as they relate to her eating: structured She eats approximately 3-4 times per day. Her last meal/snack was at 6 am/pm. Plan: GERD: stable. continue medical management, Diet & Exercise, and plan for metabolic weight loss surgery. Ambivalent about surgery Considering non surgical approach Don trial per pt request Advised patient that She must continue to adhere to regular monthly visits to meet the requirements of her insurance company. Additionally, She is to adopt eating plan recommendations and show weight loss trend to demonstrate readiness for the changes that will be required following surgery. Patient's weight pattern does demonstrates meal plan adoption and weight loss each month Physician Diet Recommendations provided in Patient Instructions Patient: [x] To return in one month for follow up. Comorbids managing [] Has completed insurance required monthly diet and exercise series [] Needs to continue monthly visits until surgery Current Meds Patient's Medications New Prescriptions SEMAGLUTIDE-WEIGHT MANAGEMENT (WEGOVY) 0.25 MG/0.5ML SOLUTION AUTO-INJECTOR Inject 0.5 mL (0.25 mg) under the skin every 7 days. Previous Medications ANTIFUNGAL 2 % POWDER ASCORBIC ACID (VITAMIN C) 500 MG ER CAPSULE Take 500 mg by mouth. BUPRENORPHINE ER (SUBLOCADE) 100 MG/0.5ML INJECTION Inject 1 each under the skin every month to absorb continually. CARIPRAZINE 3 MG CAPSULE Take 1 capsule by mouth in the morning. DIVALPROEX (DEPAKOTE ER) 500 MG 24 HR TABLET Take 50 mg by mouth in the morning and 50 mg in the evening. FEROSUL 325 (65 FE) MG TABLET Take 325 mg by mouth every other day. FESOTERODINE ER (TOVIAZ) 4 MG 24 HR TABLET Take 4 mg by mouth daily. FUROSEMIDE (LASIX) 20 MG TABLET Take 20 mg by mouth daily. HYDRALAZINE (APRESOLINE) 10 MG TABLET Take 10 mg by mouth in the morning. LAMOTRIGINE (LAMICTAL) 200 MG TABLET Take 1 tablet by mouth Nightly. LISINOPRIL 40 MG TABLET Take 40 mg by mouth. METAMUCIL FIBER PO Take by mouth. METOPROLOL SUCCINATE XL (TOPROL-XL) 25 MG 24 HR TABLET Take 25 mg by mouth daily. METOPROLOL SUCCINATE XL (TOPROL-XL) 50 MG 24 HR TABLET Take 50 mg by mouth in the morning. MYRBETRIQ 50 MG 24 HR TABLET Take 50 mg by mouth daily. NICOTINE (NICOTINE STEP 2) 14 MG/24HR PATCH Place 1 patch on the skin Every 24 hours. Modified Medications No medications on file Discontinued Medications No medications on file I spend a total of 20 minutes on the same day of the visit in discussing/counseling the patient regarding the diet and exercise in the preparation for weight loss surgery.Education on the meal plan and 7 rules of eating is provided. Meal prep is encouraged as a foundation of the meal plan. Food journal is encouraged as a feedback system before and after bariatric surgery. Counseling on no nicotine/alcohol before and after surgery. Exercise and its role in the preparation for weight loss surgery is explained. GERD Is associated with obesity and weight loss is discussed as a treatment option for GERD Full chart review was performed.Clinical documentation is updated and completed. documented in this encounter [facility] 06-16-2023 Note Patient: Giovana Powell Procedure Summary Date: 06/16/23 Room / Location: [facility] END[facility] SEC 3 / [facility] Gastroenterology Anesthesia Start: 844 Anesthesia Stop: 852 Procedure: EGD WITH BIOPSY Diagnosis: Functional dyspepsia (Functional dyspepsia [K30]) Providers: Susie Ledezma MD Responsible Provider: Santiago George MD Anesthesia Type: TIVA ASA Status: 3 Anesthesia Type: TIVA Vitals Value Taken Time BP 161/88 06/16/23 0853 Temp 36.4 ?C (97.5 ?F) 06/16/23 0853 Pulse 69 06/16/23 0853 Resp 16 06/16/23 0853 SpO2 99 % 06/16/23 0853 Anesthesia Post Evaluation Patient location during evaluation: PACU Patient participation: complete - patient participated Level of consciousness: awake and alert Pain management: satisfactory to patient Airway patency: patent Dental Injury: no Cardiovascular status: acceptable, blood pressure returned to baseline and hemodynamically stable Respiratory status: acceptable, spontaneous ventilation and face mask Hydration status: euvolemic Nausea/Vomiting: controlled No notable events documented. Patient can be discharged once all PACU criteria has been met. [facility] 06-16-2023 Note Patient: Giovana Powell Procedure Summary Date: 06/16/23 Room / Location: [facility] ENDO SEC 3 / [facility] Gastroenterology Anesthesia Start: 844 Anesthesia Stop: 852 Procedure: EGD WITH BIOPSY Diagnosis: Functional dyspepsia (Functional dyspepsia [K30]) Providers: Susie Ledezma MD Responsible Provider: Snatiago George MD Anesthesia Type: TIVA ASA Status: 3 Anesthesia Type: TIVA Vitals Value Taken Time BP 161/88 06/16/23 0853 Temp 36.4 ?C (97.5 ?F) 06/16/23 0853 Pulse 69 06/16/23 0853 Resp 16 06/16/23 0853 SpO2 99 % 06/16/23 0853 Anesthesia Post Evaluation Patient location during evaluation: PACU Patient participation: complete - patient participated Level of consciousness: awake and alert Pain management: satisfactory to patient Multimodal analgesia pain management approach Airway patency: patent Two or more strategies used to mitigate risk of obstructive sleep apnea Cardiovascular status: acceptable and hemodynamically stable Respiratory status: acceptable, face mask and spontaneous ventilation Hydration status: acceptable No notable events documented. MIPS # [id number] Perioperative Temperature Management Anesthesia time was less than 60 minutes (4256F) MIPS #[id number] Multimodal Pain Management Not emergent case Patient was not administered multimodal pain management (G2149) Patient reports no pain in PACU (G2149) MIPS #404 Anesthesiology Smoking Abstinence The patient is a current smoker (G9642) (e.g. cigarette, cigar, pipe, e-cigarette/vaping/marijuana) The patient underwent an elective surgery or procedure requiring anesthesia (G9643) The patient received preop smoking cessation instructions prior to the day of surgery or procedure by MD, APC patient navigator proxy staff (G9497) The patient did smoke the day of the procedure (G9645) MIPS #463 PEDIATRIC Prevention of Post Operative Vomiting (POV)- Combination Therapy Inhalational anesthetic were not used (G9955) I completed my handoff to the receiving clinician during which we: 1. Identified the patient 2. Identified the responsible provider 3. Reviewed the pertinent medical history 4. Discussed the surgical course 5. Reviewed intra-op anesthesia management and issues during anesthesia 6. Set expectations for post-procedure period 7. Allowed opportunity for questions and acknowledgement of understanding. [facility] 06-16-2023 Note [facility] Patient Name: Giovana Powell Procedure Date: 06/16/2023 8:44 AM Gender: Female Date of : 1950 Age: 72 Admit Type: Outpatient Note Status: Finalized Endoscopist: Susie Ledezma MD, [id number] Procedure: Upper GI endoscopy Indications: Suspected gastro-esophageal reflux disease, Preoperative assessment for bariatric surgery to treat morbid obesity, Morbid Obesity with a BMI of 40 kg/m2 Findings: Moderate inflammation was found in the gastric antrum. This was biopsied with a cold forceps for Helicobacter pylori testing. Verification of patient identification for the specimen was done. The gastroesophageal junction was normal. Impression: - Gastritis. Biopsied. - Normal gastroesophageal junction. Recommendation: - Patient has a contact number available for emergencies. The signs and symptoms of potential delayed complications were discussed with the patient. Return to normal activities tomorrow. Written discharge instructions were provided to the patient. - Resume previous diet. - Continue present medications. - Await pathology results. Referring MD: Leopoldo Baird Medicines: Monitored Anesthesia Care Procedure: Pre-Anesthesia Assessment: - The anesthesia plan was to use monitored anesthesia care (MAC). After obtaining informed consent, the endoscope was passed under direct vision. Throughout the procedure, the patient's blood pressure, pulse, and oxygen saturations were monitored continuously. The Endoscope was introduced through the mouth, and advanced to the second part of duodenum. The upper GI endoscopy was accomplished without difficulty. The patient tolerated the procedure well. Complications: No immediate complications. Procedure Code(s): --- Professional --- 40084, Esophagogastroduodenoscopy, flexible, transoral; with biopsy, single or multiple --- Technical --- 94355, Esophagogastroduodenoscopy, flexible, transoral; with biopsy, single or multiple Diagnosis Code(s): --- Professional --- K29.70, Gastritis, unspecified, without bleeding Z01.818, Encounter for other preprocedural examination E66.01, Morbid (severe) obesity due to excess calories --- Technical --- K29.70, Gastritis, unspecified, without bleeding Z01.818, Encounter for other preprocedural examination E66.01, Morbid (severe) obesity due to excess calories CPT copyright 2021 [employer]. All rights reserved. The codes documented in this report are preliminary and upon supervisor firearms review may be revised to meet current compliance requirements. Attending Participation: I personally performed the entire procedure. Susie Ledezma MD 06/16/2023 9:09:17 AM This report has been signed electronically. Number of Addenda: 0 Note Initiated On: 06/16/2023 8:44 AM [facility] 06-16-2023 Note Patient: Giovana Powell Procedure Information Date/Time: 06/16/23 0900 Procedure: EGD WITH BIOPSY - 30 MINUTES Location: [address] ENDO SEC 3 / [facility] Providers: Susie Ledezma MD Relevant Problems Anesthesia (+) JENNIFER (obstructive sleep apnea) Cardio (+) Hypertension GI (+) GERD (gastroesophageal reflux disease) Neuro/Psych (+) Seizures (HCC) Pulmonary (+) COPD (chronic obstructive pulmonary disease) (HCC) (+) JENNIFER (obstructive sleep apnea) Past Medical History: Past Medical History: No date: Anemia No date: Anesthesia complication No date: Arthritis Comment: Knee No date: Chest pain on exertion No date: COPD (chronic obstructive pulmonary disease) (HCC) No date: Depression No date: Difficulty moving head No date: Difficulty sleeping No date: WEIR (dyspnea on exertion) No date: Fatigue No date: Fatty liver No date: GERD (gastroesophageal reflux disease) 1986: History of blood transfusion No date: History of melanoma No date: History of UTI No date: Hyperlipidemia No date: Hypertension No date: Joint pain, knee No date: Muscle weakness No date: Prediabetes No date: Seizures ([facility]) last 35 years ago No date: Snoring Past Surgical History: Past Surgical History: No date: SECTION, LOW TRANSVERSE Comment: 1979, 1980, 1985 Dr. Newell/ Vickie lowry 2019: CHOLECYSTECTOMY Comment: laparoscopic -[place] No date: HYSTERECTOMY Comment: [facility] Social History: TOBACCO: reports that she has quit smoking. Her smoking use included cigarettes. She started smoking about 35 years ago. She smoked an average of 1 pack per day. She has never used smokeless tobacco. ETOH: reports that she does not currently use alcohol. Social History Substance and Sexual Activity Drug Use Not Currently Family History: Family History Problem Relation Name Age of Onset ? Cancer Sister ? Obesity Sister ? Diabetes Brother ? Hypertension Brother ? Obesity Brother ? Obesity Maternal Grandfather ? Obesity Maternal Grandmother Screening: unknown Clinical information reviewed: Tobacco Allergies Meds Med Hx Surg Hx Fam Hx Soc Hx Physical Exam Airway Mallampati: IV TM distance: >3 FB Neck ROM: full Mouth Open: normalendotracheal tube not in place Cardiovascular Dental (+) Poor, Missing Pulmonary Abdominal Other findings: Missing multiple teeth, one front upper tooth Anesthesia Plan patient is NPO appropriate Any family history or previous problems with anesthesia ASA 3 TIVA ( stopped breathing , quit smoking x 10 days) The patient is not a current smoker. Anesthetic plan and risks discussed with patient. JENNIFER Screening Labs: Lab Results Component Value Date WBC 9.2 12/05/2020 HGB 13.6 12/05/2020 MCV 94.8 12/05/2020 Lab Results Component Value Date NA 135 12/05/2020 K 4.4 12/05/2020 CL 97 12/05/2020 CO2 29 12/05/2020 BUN 22 12/05/2020 CREATININE 0.79 12/05/2020 GLUCOSE 77 12/05/2020 CALCIUM 9.7 12/05/2020 PROT 7.2 12/05/2020 ALKPHOS 90 12/05/2020 AST 34 12/05/2020 No echocardiogram results found for the past 14 days No results found for this or any previous visit. [facility] 06-16-2023 Note Formatting of this n ote might be different from the original. Endoscopy Center- [facility] Patient Name: Giovana Powell Procedure Date: 06/16/2023 8:44 AM Gender: Female Date of : 1950 Age: 72 Admit Type: Outpatient Note Status: Finalized Endoscopist: Susie Ledezma MD, [id number] Procedure: Upper GI endoscopy Indications: Suspected gastro-esophageal reflux disease, Preoperative assessment for bariatric surgery to treat morbid obesity, Morbid Obesity with a BMI of 40 kg/m2 Findings: Moderate inflammation was found in the gastric antrum. This was biopsied with a cold forceps for Helicobacter pylori testing. Verification of patient identification for the specimen was done. The gastroesophageal junction was normal. Impression: - Gastritis. Biopsied. - Normal gastroesophageal junction. Recommendation: - Patient has a contact number available for emergencies. The signs and symptoms of potential delayed complications were discussed with the patient. Return to normal activities tomorrow. Written discharge instructions were provided to the patient. - Resume previous diet. - Continue present medications. - Await pathology results. Referring MD: Leopoldo Baird Medicines: Monitored Anesthesia Care Procedure: Pre-Anesthesia Assessment: - The anesthesia plan was to use monitored anesthesia care (MAC). After obtaining informed consent, the endoscope was passed under direct vision. Throughout the procedure, the patient's blood pressure, pulse, and oxygen saturations were monitored continuously. The Endoscope was introduced through the mouth, and advanced to the second part of duodenum. The upper GI endoscopy was accomplished without difficulty. The patient tolerated the procedure well. Complications: No immediate complications. Procedure Code(s): --- Professional --- 45886, Esophagogastroduodenoscopy, flexible, transoral; with biopsy, single or multiple --- Technical --- 61416, Esophagogastroduodenoscopy, flexible, transoral; with biopsy, single or multiple Diagnosis Code(s): --- Professional --- K29.70, Gastritis, unspecified, without bleeding Z01.818, Encounter for other preprocedural examination E66.01, Morbid (severe) obesity due to excess calories --- Technical --- K29.70, Gastritis, unspecified, without bleeding Z01.818, Encounter for other preprocedural examination E66.01, Morbid (severe) obesity due to excess calories CPT copyright 2021 [employer]. All rights reserved. The codes documented in this report are preliminary and upon supervisor firearms review may be revised to meet current compliance requirements. Attending Participation: I personally performed the entire procedure. Susie Ledezma MD 06/16/2023 9:09:17 AM This report has been signed electronically. Number of Addenda: 0 Note Initiated On: 06/16/2023 8:44 AM [facility] 06-16-2023 Note Formatting of this n ote might be different from the original. [facility]ovana Powell Procedure Date: 06/16/2023 8:44 AM Gender: Female Date of : 1950 Age: 72 Admit Type: Outpatient Note Status: Finalized Endoscopist: Susie Ledezma MD, [id number] Procedure: Upper GI endoscopy Indications: Suspected gastro-esophageal reflux disease, Preoperative assessment for bariatric surgery to treat morbid obesity, Morbid Obesity with a BMI of 40 kg/m2 Findings: Moderate inflammation was found in the gastric antrum. This was biopsied with a cold forceps for Helicobacter pylori testing. Verification of patient identification for the specimen was done. The gastroesophageal junction was normal. Impression: - Gastritis. Biopsied. - Normal gastroesophageal junction. Recommendation: - Patient has a contact number available for emergencies. The signs and symptoms of potential delayed complications were discussed with the patient. Return to normal activities tomorrow. Written discharge instructions were provided to the patient. - Resume previous diet. - Continue present medications. - Await pathology results. Referring MD: Leopoldo Baird Medicines: Monitored Anesthesia Care Procedure: Pre-Anesthesia Assessment: - The anesthesia plan was to use monitored anesthesia care (MAC). After obtaining informed consent, the endoscope was passed under direct vision. Throughout the procedure, the patient's blood pressure, pulse, and oxygen saturations were monitored continuously. The Endoscope was introduced through the mouth, and advanced to the second part of duodenum. The upper GI endoscopy was accomplished without difficulty. The patient tolerated the procedure well. Complications: No immediate complications. Procedure Code(s): --- Professional --- 47311, Esophagogastroduodenoscopy, flexible, transoral; with biopsy, single or multiple --- Technical --- 82150, Esophagogastroduodenoscopy, flexible, transoral; with biopsy, single or multiple Diagnosis Code(s): --- Professional --- K29.70, Gastritis, unspecified, without bleeding Z01.818, Encounter for other preprocedural examination E66.01, Morbid (severe) obesity due to excess calories --- Technical --- K29.70, Gastritis, unspecified, without bleeding Z01.818, Encounter for other preprocedural examination E66.01, Morbid (severe) obesity due to excess calories CPT copyright 2021 [employer]. All rights reserved. The codes documented in this report are preliminary and upon supervisor firearms review may be revised to meet current compliance requirements. Attending Participation: I personally performed the entire procedure. Susie Ledezma MD 06/16/2023 9:09:17 AM This report has been signed electronically. Number of Addenda: 0 Note Initiated On: 06/16/2023 8:44 AM [facility] 06-16-2023 Miscellaneous Notes [facility]: Giovana Powell Procedure Date: 06/16/2023 8:44 AM Gender: Female Date of : 1950 Age: 72 Admit Type: Outpatient Note Status: Finalized Endoscopist: Susie Ledezma MD, [id number] Procedure: Upper GI endoscopy Indications: Suspected gastro-esophageal reflux disease, Preoperative assessment for bariatric surgery to treat morbid obesity, Morbid Obesity with a BMI of 40 kg/m2 Findings: Moderate inflammation was found in the gastric antrum. This was biopsied with a cold forceps for Helicobacter pylori testing. Verification of patient identification for the specimen was done. The gastroesophageal junction was normal. Impression: - Gastritis. Biopsied. - Normal gastroesophageal junction. Recommendation: - Patient has a contact number available for emergencies. The signs and symptoms of potential delayed complications were discussed with the patient. Return to normal activities tomorrow. Written discharge instructions were provided to the patient. - Resume previous diet. - Continue present medications. - Await pathology results. Referring MD: Leopoldo Baird Medicines: Monitored Anesthesia Care Procedure: Pre-Anesthesia Assessment: - The anesthesia plan was to use monitored anesthesia care (MAC). After obtaining informed consent, the endoscope was passed under direct vision. Throughout the procedure, the patient's blood pressure, pulse, and oxygen saturations were monitored continuously. The Endoscope was introduced through the mouth, and advanced to the second part of duodenum. The upper GI endoscopy was accomplished without difficulty. The patient tolerated the procedure well. Complications: No immediate complications. Procedure Code(s): --- Professional --- 18018, Esophagogastroduodenoscopy, flexible, transoral; with biopsy, single or multiple --- Technical --- 24700, Esophagogastroduodenoscopy, flexible, transoral; with biopsy, single or multiple Diagnosis Code(s): --- Professional --- K29.70, Gastritis, unspecified, without bleeding Z01.818, Encounter for other preprocedural examination E66.01, Morbid (severe) obesity due to excess calories --- Technical --- K29.70, Gastritis, unspecified, without bleeding Z01.818, Encounter for other preprocedural examination E66.01, Morbid (severe) obesity due to excess calories CPT copyright 2021 [employer]. All rights reserved. The codes documented in this report are preliminary and upon supervisor firearms review may be revised to meet current compliance requirements. Attending Participation: I personally performed the entire procedure. Susie Ledezma MD 06/16/2023 9:09:17 AM This report has been signed electronically. Number of Addenda: 0 Note Initiated On: 06/16/2023 8:44 AM documented in this encounter [facility] 06-15-2023 Note [facility] - [facility] PATIENT NAME: Giovana Powell DATE OF : 1950 ADMISSION DATE: 06/16/2023 7:34 AM TODAY'S DATE: 06/16/2023 HISTORY OF PRESENT ILLNESS: The patient is a 72 y.o. female who presents with morbid obesity and a Body mass index is 39.06 kg/m?.. She is undergoing upper gastrointestinal endoscopy with biopsies for Helicobacter pylori. I thoroughly reviewed the patient's medical history, family history, social history and review of systems with the patient today in the office. Please see medical record for pertinent positives. Past Medical History: Past Medical History: Diagnosis Date Anemia Anesthesia complication Arthritis Knee Chest pain on exertion COPD (chronic obstructive pulmonary disease) (HCC) Depression Difficulty moving head Difficulty sleeping WEIR (dyspnea on exertion) Fatigue Fatty liver GERD (gastroesophageal reflux disease) History of blood transfusion 1986 History of melanoma History of UTI Hyperlipidemia Hypertension Joint pain, knee Muscle weakness Prediabetes Seizures (HCC) Snoring Past Surgical History: Past Surgical History: Procedure Laterality Date SECTION, LOW TRANSVERSE 1979, 1980, 1985 Dr. Newell/ [facility]ickie general CHOLECYSTECTOMY 2019 laparoscopic -[place] HYSTERECTOMY [facility] Current Medications: Current Facility-Administered Medications Medication Dose Route Frequency Provider Last Rate Last Admin sodium chloride 0.9 % infusion 50 mL/hr IntraVENous Continuous ABBI Cassidy Prior to Admission medications Medication Sig Start Date End Date Taking? Authorizing Provider Antifungal 2 % powder 03/23/23 Historical Provider, ascorbic acid (Vitamin C) 500 MG ER capsule Take 500 mg by mouth. 07/08/22 Historical Provider, buprenorphine ER (Sublocade) 100 mg/0.5mL injection Inject 1 each under the skin every month to absorb continually. Historical Provider, Cariprazine 3 MG capsule Take 1 capsule by mouth in the morning. 12/02/22 Historical Provider, divalproex (Depakote ER) 500 MG 24 hr tablet Take 50 mg by mouth in the morning and 50 mg in the evening. 04/20/23 Historical Provider, FeroSul 325 (65 Fe) MG tablet Take 325 mg by mouth every other day. 04/24/23 Historical Provider, fesoterodine ER (Toviaz) 4 MG 24 hr tablet Take 4 mg by mouth daily. 04/28/23 Historical Provider, furosemide (Lasix) 20 MG tablet Take 20 mg by mouth daily. 11/17/22 Historical Provider, hydrALAZINE (Apresoline) 10 MG tablet Take 10 mg by mouth in the morning. 04/22/23 Historical Provider, lamoTRIgine (LaMICtal) 200 MG tablet Take 1 tablet by mouth Nightly. 12/02/22 Historical Provider, lisinopril 40 MG tablet Take 40 mg by mouth. Historical Provider, METAMUCIL FIBER PO Take by mouth. Historical Provider, metoprolol succinate XL (Toprol-XL) 25 MG 24 hr tablet Take 25 mg by mouth daily. 04/20/23 Historical Provider, metoprolol succinate XL (Toprol-XL) 50 MG 24 hr tablet Take 50 mg by mouth in the morning. Historical Provider, Myrbetriq 50 MG 24 hr tablet Take 50 mg by mouth daily. 04/25/23 Historical Provider, nicotine (Nicotine Step 2) 14 MG/24HR patch Place 1 patch on the skin Every 24 hours. Historical Provider, Allergies: Allergies Allergen Reactions Gadoxetate Shortness of breath MRI contrast MRI contrast MRI contrast MRI contrast Iloperidone Other reaction(s): Other FANAPT Lurasidone Other reaction(s): Other LATUDA Naproxen Hives Other reaction(s): Hives Paliperidone Other reaction(s): increased psychiatric symptoms INVEGA Theophylline Other reaction(s): Other Trazodone And Nefazodone Other reaction(s): Other Social History: Social History Socioeconomic History Marital status: Spouse name: Not on file Number of children: Not on file Years of education: Not on file Highest education level: Not on file Occupational History Not on file Tobacco Use Smoking status: Former Packs/day: 1.00 Types: Cigarettes Start date: 1987 Smokeless tobacco: Never Substance and Sexual Activity Alcohol use: Not Currently Drug use: Not Currently Sexual activity: Not Currently Other Topics Concern Not on file Social History Narrative Not on file Social Determinants of Health Financial Resource Strain: Not on file Food Insecurity: Not on file Transportation Needs: Not on file Physical Activity: Not on file Stress: Not on file Social Connections: Not on file Intimate Partner Violence: Not At Risk (06/16/2023) Humiliation, Afraid, Rape, and Kick questionnaire Fear of Current or Ex-Partner: No Emotionally Abused: No Physically Abused: No Sexually Abused: No Housing Stability: Not on file Family History: Family History Problem Relation Name Age of Onset Cancer Sister Obesity Sister Diabetes Brother Hypertension Brother Obesity Brot (more content not included)... [facility] 06-15-2023 History and physical note Images from the original note were not included. [facility] - Surgery [facility] PATIENT NAME: Giovana Powell DATE OF : 1950 ADMISSION DATE: 06/16/2023 7:34 AM TODAY'S DATE: 06/16/2023 HISTORY OF PRESENT ILLNESS: The patient is a 72 y.o. female who presents with morbid obesity and a Body mass index is 39.06 kg/m .. She is undergoing upper gastrointestinal endoscopy with biopsies for Helicobacter pylori. I thoroughly reviewed the patient's medical history, family history, social history and review of systems with the patient today in the office. Please see medical record for pertinent positives. Past Medical History: Past Medical History: Diagnosis Date Anemia Anesthesia complication Arthritis Knee Chest pain on exertion COPD (chronic obstructive pulmonary disease) (HCC) Depression Difficulty moving head Difficulty sleeping WEIR (dyspnea on exertion) Fatigue Fatty liver GERD (gastroesophageal reflux disease) History of blood transfusion 1986 History of melanoma History of UTI Hyperlipidemia Hypertension Joint pain, knee Muscle weakness Prediabetes Seizures (HCC) Snoring Past Surgical History: Past Surgical History: Procedure Laterality Date SECTION, LOW TRANSVERSE 1979, 1980, 1985 Dr. Newell/ [facility]ickie general CHOLECYSTECTOMY 2019 laparoscopic -[place] HYSTERECTOMY [facility] Current Medications: Current Facility-Administered Medications Medication Dose Route Frequency Provider Last Rate Last Admin sodium chloride 0.9 % infusion 50 mL/hr IntraVENous Continuous ABBI Cassidy Prior to Admission medications Medication Sig Start Date End Date Taking? Authorizing Provider Antifungal 2 % powder 03/23/23 Historical ProviderMD ascorbic acid (Vitamin C) 500 MG ER capsule Take 500 mg by mouth. 07/08/22 Historical ProviderMD buprenorphine ER (Sublocade) 100 mg/0.5mL injection Inject 1 each under the skin every month to absorb continually. Historical Provider Cariprazine 3 MG capsule Take 1 capsule by mouth in the morning. 12/02/22 Historical Provider, divalproex (Depakote ER) 500 MG 24 hr tablet Take 50 mg by mouth in the morning and 50 mg in the evening. 04/20/23 Historical Provider, FeroSul 325 (65 Fe) MG tablet Take 325 mg by mouth every other day. 04/24/23 Historical Provider, fesoterodine ER (Toviaz) 4 MG 24 hr tablet Take 4 mg by mouth daily. 04/28/23 Historical Provider, furosemide (Lasix) 20 MG tablet Take 20 mg by mouth daily. 11/17/22 Historical Provider, hydrALAZINE (Apresoline) 10 MG tablet Take 10 mg by mouth in the morning. 04/22/23 Historical Provider, lamoTRIgine (LaMICtal) 200 MG tablet Take 1 tablet by mouth Nightly. 12/02/22 Historical Provider, lisinopril 40 MG tablet Take 40 mg by mouth. Historical Provider, METAMUCIL FIBER PO Take by mouth. Historical Provider, metoprolol succinate XL (Toprol-XL) 25 MG 24 hr tablet Take 25 mg by mouth daily. 04/20/23 Historical Provider, metoprolol succinate XL (Toprol-XL) 50 MG 24 hr tablet Take 50 mg by mouth in the morning. Historical Provider, Myrbetriq 50 MG 24 hr tablet Take 50 mg by mouth daily. 04/25/23 Historical Provider, nicotine (Nicotine Step 2) 14 MG/24HR patch Place 1 patch on the skin Every 24 hours. Historical Provider, Allergies: Allergies Allergen Reactions Gadoxetate Shortness of breath MRI contrast MRI contrast MRI contrast MRI contrast Iloperidone Other reaction(s): Other FANAPT Lurasidone Other reaction(s): Other LATUDA Naproxen Hives Other reaction(s): Hives Paliperidone Other reaction(s): increased psychiatric symptoms INVEGA Theophylline Other reaction(s): Other Trazodone And Nefazodone Other reaction(s): Other Social History: Social History Socioeconomic History Marital status: Spouse name: Not on file Number of children: Not on file Years of education: Not on file Highest education level: Not on file Occupational History Not on file Tobacco Use Smoking status: Former Packs/day: 1.00 Types: Cigarettes Start date: 1987 Smokeless tobacco: Never Substance and Sexual Activity Alcohol use: Not Currently Drug use: Not Currently Sexual activity: Not Currently Other Topics Concern Not on file Social History Narrative Not on file Social Determinants of Health Financial Resource Strain: Not on file Food Insecurity: Not on file Transportation Needs: Not on file Physical Activity: Not on file Stress: Not on file Social Connections: Not on file Intimate Partner Violence: Not At Risk (06/16/2023) Humiliation, Afraid, Rape, and Kick questionnaire Fear of Current or Ex-Partner: No Emotionally Abused: No Physically Abused: No Sexually Abused: No Housing Stability: Not on file Family History: Family History Problem Relation Name Age of Onset Cancer Sister Obesity Sister Diabetes Brother Hypertension Brother Obesity Brother Obesity Maternal Grandfather Obesity Maternal Grandmother REVIEW OF SYSTEMS: CONSTITUTIONAL: Negative for fatigue, and unexpected weight change RESPIRATORY: Negative for cough, SOB, and wheezing CARDIOVASCULAR: Negative for chest pains and palpatations GASTROINTESTINAL: Negative for abdominal bloating, constipation, diarrhea. Positive for gastroesophageal reflux disease HEMATOLOGIC/LYMPHATIC: Negative for adenopathy. Does not bruise/bleed easily. NEUROLOGICAL: Negative for seizures and syncope * All other ROS reviewed see HPI for pertinent positives and negatives. PHYSICAL EXAM: VITALS: BP (!) 192/102 Pulse 80 Temp 36.2 C (97.1 F) (Tympanic) Resp 18 Ht 5' (1.524 m) Wt 200 lb (90.7 kg) SpO2 93% BMI 39.06 kg/m GENERAL: Oriented to person, place, and time. Appears well nourished. No distress ENT: Normocepalic,atraumatic, without obvious abnormality NECK: supple, symmetrical, trachea midline LUNGS: Resp effort easy and unlabored, breath sounds normal CARDIOVASCULAR: RRR, No murmur ABDOMEN: Soft, non-tender, no open wounds. MUSCULOSKELETAL: Normal range of motion, ambulatory without assistance NEUROLOGIC: No focal neurologic deficits IMPRESSION/RECOMMENDATIONS: Morbid obesity with Body mass index is 39.06 kg/m .. Plan for EGD with Bx Patient counseled on risks, benefits, and alternatives of treatment plan at length. Patient states an understanding and willingness to proceed with plan. ' [facility] 06-15-2023 History and physical note Images from the original note were not included. [facility] - Surgery [facility] Phys[facility] Surgery PATIENT NAME: Giovana Powell DATE OF : 1950 ADMISSION DATE: 06/16/2023 7:34 AM TODAY'S DATE: 06/16/2023 HISTORY OF PRESENT ILLNESS: The patient is a 72 y.o. female who presents with morbid obesity and a Body mass index is 39.06 kg/m .. She is undergoing upper gastrointestinal endoscopy with biopsies for Helicobacter pylori. I thoroughly reviewed the patient's medical history, family history, social history and review of systems with the patient today in the office. Please see medical record for pertinent positives. Past Medical History: Past Medical History: Diagnosis Date Anemia Anesthesia complication Arthritis Knee Chest pain on exertion COPD (chronic obstructive pulmonary disease) (HCC) Depression Difficulty moving head Difficulty sleeping WEIR (dyspnea on exertion) Fatigue Fatty liver GERD (gastroesophageal reflux disease) History of blood transfusion 1986 History of melanoma History of UTI Hyperlipidemia Hypertension Joint pain, knee Muscle weakness Prediabetes Seizures (HCC) Snoring Past Surgical History: Past Surgical History: Procedure Laterality Date SECTION, LOW TRANSVERSE 1979, 1980, 1985 Dr. Newell/ [facility] CHOLECYSTECTOMY 2019 laparoscopic -[place] HYSTERECTOMY [facility] Current Medications: Current Facility-Administered Medications Medication Dose Route Frequency Provider Last Rate Last Admin sodium chloride 0.9 % infusion 50 mL/hr IntraVENous Continuous ABBI Cassidy Prior to Admission medications Medication Sig Start Date End Date Taking? Authorizing Provider Antifungal 2 % powder 03/23/23 Historical Provider, ascorbic acid (Vitamin C) 500 MG ER capsule Take 500 mg by mouth. 07/08/22 Historical Provider, buprenorphine ER (Sublocade) 100 mg/0.5mL injection Inject 1 each under the skin every month to absorb continually. Historical Provider, Cariprazine 3 MG capsule Take 1 capsule by mouth in the morning. 12/02/22 Historical Provider, divalproex (Depakote ER) 500 MG 24 hr tablet Take 50 mg by mouth in the morning and 50 mg in the evening. 04/20/23 Historical Provider, MD FeroSul 325 (65 Fe) MG tablet Take 325 mg by mouth every other day. 04/24/23 Historical Provider, fesoterodine ER (Toviaz) 4 MG 24 hr tablet Take 4 mg by mouth daily. 04/28/23 Historical Provider, furosemide (Lasix) 20 MG tablet Take 20 mg by mouth daily. 11/17/22 Historical Provider, hydrALAZINE (Apresoline) 10 MG tablet Take 10 mg by mouth in the morning. 04/22/23 Historical Provider, lamoTRIgine (LaMICtal) 200 MG tablet Take 1 tablet by mouth Nightly. 12/02/22 Historical Provider, lisinopril 40 MG tablet Take 40 mg by mouth. Historical Provider, METAMUCIL FIBER PO Take by mouth. Historical Provider, metoprolol succinate XL (Toprol-XL) 25 MG 24 hr tablet Take 25 mg by mouth daily. 04/20/23 Historical Provider, metoprolol succinate XL (Toprol-XL) 50 MG 24 hr tablet Take 50 mg by mouth in the morning. Historical Provider, Myrbetriq 50 MG 24 hr tablet Take 50 mg by mouth daily. 04/25/23 Historical Provider, nicotine (Nicotine Step 2) 14 MG/24HR patch Place 1 patch on the skin Every 24 hours. Historical Provider, Allergies: Allergies Allergen Reactions Gadoxetate Shortness of breath MRI contrast MRI contrast MRI contrast MRI contrast Iloperidone Other reaction(s): Other FANAPT Lurasidone Other reaction(s): Other LATUDA Naproxen Hives Other reaction(s): Hives Paliperidone Other reaction(s): increased psychiatric symptoms INVEGA Theophylline Other reaction(s): Other Trazodone And Nefazodone Other reaction(s): Other Social History: Social History Socioeconomic History Marital status: Spouse name: Not on file Number of children: Not on file Years of education: Not on file Highest education level: Not on file Occupational History Not on file Tobacco Use Smoking status: Former Packs/day: 1.00 Types: Cigarettes Start date: 1987 Smokeless tobacco: Never Substance and Sexual Activity Alcohol use: Not Currently Drug use: Not Currently Sexual activity: Not Currently Other Topics Concern Not on file Social History Narrative Not on file Social Determinants of Health Financial Resource Strain: Not on file Food Insecurity: Not on file Transportation Needs: Not on file Physical Activity: Not on file Stress: Not on file Social Connections: Not on file Intimate Partner Violence: Not At Risk (06/16/2023) Humiliation, Afraid, Rape, and Kick questionnaire Fear of Current or Ex-Partner: No Emotionally Abused: No Physically Abused: No Sexually Abused: No Housing Stability: Not on file Family History: Family History Problem Relation Name Age of Onset Cancer Sister Obesity Sister Diabetes Brother Hypertension Brother Obesity Brother Obesity Maternal Grandfather Obesity Maternal Grandmother REVIEW OF SYSTEMS: CONSTITUTIONAL: Negative for fatigue, and unexpected weight change RESPIRATORY: Negative for cough, SOB, and wheezing CARDIOVASCULAR: Negative for chest pains and palpatations GASTROINTESTINAL: Negative for abdominal bloating, constipation, diarrhea. Positive for gastroesophageal reflux disease HEMATOLOGIC/LYMPHATIC: Negative for adenopathy. Does not bruise/bleed easily. NEUROLOGICAL: Negative for seizures and syncope * All other ROS reviewed see HPI for pertinent positives and negatives. PHYSICAL EXAM: VITALS: BP (!) 192/102 Pulse 80 Temp 36.2 C (97.1 F) (Tympanic) Resp 18 Ht 5' (1.524 m) Wt 200 lb (90.7 kg) SpO2 93% BMI 39.06 kg/m GENERAL: Oriented to person, place, and time. Appears well nourished. No distress ENT: Normocepalic,atraumatic, without obvious abnormality NECK: supple, symmetrical, trachea midline LUNGS: Resp effort easy and unlabored, breath sounds normal CARDIOVASCULAR: RRR, No murmur ABDOMEN: Soft, non-tender, no open wounds. MUSCULOSKELETAL: Normal range of motion, ambulatory without assistance NEUROLOGIC: No focal neurologic deficits IMPRESSION/RECOMMENDATIONS: Morbid obesity with Body mass index is 39.06 kg/m .. Plan for EGD with Bx Patient counseled on risks, benefits, and alternatives of treatment plan at length. Patient states an understanding and willingness to proceed with plan. ' documented in this encounter [facility] 06-08-2023 History of Present illness Narrative [facility] BARIATRIC NUTRITION ASSESSMENT / DIET & EXERCISE SURGICAL WEIGHT LOSS MANAGEMENT PROGRAM Date: 06/08/23 Patient Name: Giovana Powell Date of : 1950 Type of Assessment: [x] Surgical Patient - Pre-op Initial Assessment Weight Metrics: Today's Height: Today's Weight: Today's BMI: There is no height or weight on file to calculate BMI. Surgeon: Dr. Ledezma Surgical Procedure: [x] Sleeve Gastrectomy Preop Diet: 2 wks Medical History: Past Medical History: Diagnosis Date Anemia Anesthesia complication Arthritis Knee Chest pain on exertion COPD (chronic obstructive pulmonary disease) (HCC) Depression Difficulty moving head Difficulty sleeping WEIR (dyspnea on exertion) Fatigue Fatty liver GERD (gastroesophageal reflux disease) History of blood transfusion 1986 History of melanoma History of UTI Hyperlipidemia Hypertension Joint pain, knee Muscle weakness Prediabetes Seizures (HCC) Snoring Current Medications: has a current medication list which includes the following prescription(s): antifungal, ascorbic acid, buprenorphine er, cariprazine, divalproex, ferosul, fesoterodine er, furosemide, hydralazine, lamotrigine, lisinopril, fiber, metoprolol succinate xl, metoprolol succinate xl, myrbetriq, and nicotine. Weight History Patient has been considering weight loss surgery for 1 years Primary reason(s) for weight loss overall health, improve mobility Number of years over weight > 10; pt said she lost 100# ~5 year ago d/t gastritis however is currently at her highest weight PREVIOUS WEIGHT LOSS ATTEMPTS Method When Amount lost Amount regained Most successful N/a per pt CURRENT MEAL PLANNING Self Spouse Significant Other Child Not Planned or Varies Other Meals planned by x Food shopping done by x Meals cooked by x Also gets meal delivery ~1 meal/day (15-25gm pro per meal pt estimates) CURRENT EATING BEHAVIORS: eats large portions EXERCISE/CURRENT ACTIVITY ADLs Recommendation : limited d/t pain. CURRENT EATING HABITS/ADDITIONAL INFORMATION 24 Hour Recall completed: Yes Breakfast: 2 slices toast Snack: ----- Lunch: jr whopper + onion rings Dinner: 2 slices toast Snack: ---- Drinks: coffee (4-5 cups/day) + 48 oz water/day Comments: eating 3x/day SUPPORT SYSTEM A. Family knowledgeable about/supportive of plans for weight loss surgery: Yes B. Patient understands that they must have someone in their home 24/7 for the first week following surgery, or that they must be able to stay with someone for the first week Yes C. Co-workers knowledgeable about/supportive of plans for weight loss surgery: Yes KNOWLEDGE AND EDUCATION ASSESSMENT AND PLAN Patient's level of knowledge regarding the changes that will have to be made in their diet following weight loss surgery is: [x] Excellent - patient is well informed. Areas of concern include: carbohydrates and caffeine, protein Current eating practices that will require change with surgery: Protein at all meals, increase complex CHO decrease simple CHO, eliminate caffeine, ensure good fluid intake RECOMMENDATIONS AND PLAN [x] Educational Materials Provided [x]Strategies for Eating handout given to and discussed with patient [] Patient cleared for weight loss surgery Patient able to state major diet changes that need to be made following surgery Patient states/demonstrates readiness to make necessary diet changes [x] Anticipate clearing patient for weight loss surgery, but need to see patient again: [x] after patient reviews educational materials [x] Follow-up: 2 months virtual (6 months D&E) Diagnoses: Obesity Pt gets home delivered meals so some meal choices are limited. Delivered meals do have ~15-25gm pro/meal. Eating 3x/day. Coffee intake daily. Unable to go shopping frequently. Moderate water intake per pt. Currently smoking, says she plans to quit using nicotine patches once she finishes the pack she has currently. Goals 1. Reduce coffee by 1 cup every month 2. Ensure protein at all meals Bariatric Nutrition Assessment completed by: Lashonda Mason RD documented in this encounter [facility] 06-08-2023 History of Present illness Narrative [facility] BARIATRIC NUTRITION ASSESSMENT / DIET & EXERCISE SURGICAL WEIGHT LOSS MANAGEMENT PROGRAM Date: 06/08/23 Patient Name: Giovana Powell Date of : 1950 Type of Assessment: [x] Surgical Patient - Pre-op Initial Assessment Weight Metrics: Today's Height: Today's Weight: Today's BMI: There is no height or weight on file to calculate BMI. Surgeon: Dr. Ledezma Surgical Procedure: [x] Sleeve Gastrectomy Preop Diet: 2 wks Medical History: Past Medical History: Diagnosis Date Anemia Anesthesia complication Arthritis Knee Chest pain on exertion COPD (chronic obstructive pulmonary disease) (HCC) Depression Difficulty moving head Difficulty sleeping WEIR (dyspnea on exertion) Fatigue Fatty liver GERD (gastroesophageal reflux disease) History of blood transfusion 1986 History of melanoma History of UTI Hyperlipidemia Hypertension Joint pain, knee Muscle weakness Prediabetes Seizures (HCC) Snoring Current Medications: has a current medication list which includes the following prescription(s): antifungal, ascorbic acid, buprenorphine er, cariprazine, divalproex, ferosul, fesoterodine er, furosemide, hydralazine, lamotrigine, lisinopril, fiber, metoprolol succinate xl, metoprolol succinate xl, myrbetriq, and nicotine. Weight History Patient has been considering weight loss surgery for 1 years Primary reason(s) for weight loss overall health, improve mobility Number of years over weight > 10; pt said she lost 100# ~5 year ago d/t gastritis however is currently at her highest weight PREVIOUS WEIGHT LOSS ATTEMPTS Method When Amount lost Amount regained Most successful N/a per pt CURRENT MEAL PLANNING Self Spouse Significant Other Child Not Planned or Varies Other Meals planned by x Food shopping done by x Meals cooked by x Also gets meal delivery ~1 meal/day (15-25gm pro per meal pt estimates) CURRENT EATING BEHAVIORS: eats large portions EXERCISE/CURRENT ACTIVITY ADLs Recommendation : limited d/t pain. CURRENT EATING HABITS/ADDITIONAL INFORMATION 24 Hour Recall completed: Yes Breakfast: 2 slices toast Snack: ----- Lunch: jr whopper + onion rings Dinner: 2 slices toast Snack: ---- Drinks: coffee (4-5 cups/day) + 48 oz water/day Comments: eating 3x/day SUPPORT SYSTEM A. Family knowledgeable about/supportive of plans for weight loss surgery: Yes B. Patient understands that they must have someone in their home 24/ for the first week following surgery, or that they must be able to stay with someone for the first week Yes C. Co-workers knowledgeable about/supportive of plans for weight loss surgery: Yes KNOWLEDGE AND EDUCATION ASSESSMENT AND PLAN Patient's level of knowledge regarding the changes that will have to be made in their diet following weight loss surgery is: [x] Excellent - patient is well informed. Areas of concern include: carbohydrates and caffeine, protein Current eating practices that will require change with surgery: Protein at all meals, increase complex CHO decrease simple CHO, eliminate caffeine, ensure good fluid intake RECOMMENDATIONS AND PLAN [x] Educational Materials Provided [x]Strategies for Eating handout given to and discussed with patient [] Patient cleared for weight loss surgery Patient able to state major diet changes that need to be made following surgery Patient states/demonstrates readiness to make necessary diet changes [x] Anticipate clearing patient for weight loss surgery, but need to see patient again: [x] after patient reviews educational materials [x] Follow-up: 2 months virtual (6 months D&E) Diagnoses: Obesity Pt gets home delivered meals so some meal choices are limited. Delivered meals do have ~15-25gm pro/meal. Eating 3x/day. Coffee intake daily. Unable to go shopping frequently. Moderate water intake per pt. Currently smoking, says she plans to quit using nicotine patches once she finishes the pack she has currently. Goals 1. Reduce coffee by 1 cup every month 2. Ensure protein at all meals Bariatric Nutrition Assessment completed by: Lashonda Mason RD documented in this encounter [facility] 05-15-2023 Telephone encounter Note Orders mailed- with pain management clearance and neurology clearance form [facility] 05-15-2023 Miscellaneous Notes Orders mailed- with pain management clearance and neurology clearance form Addended by: BRETT BERNAL on: 05/13/2023 09:07 AM Modules accepted: Orders Signed and printed orders Neuro clearance will be needed once we know name of provider- she has appt in May Psych clearance will defer to our psychologists to obtain records from Dr. Ga Addended by: MONICA MORRIS on: 05/11/2023 08:06 AM Modules accepted: Orders Orders pended, Pre op check list scanned to media. EGD order sent to ALS. Plan: I have recommended proceeding with the evaluation, workup and marketing sales consultant preoperative consultations and testing for the primary procedure as outlined below: BARIATRIC AND METABOLIC SURGERY [facility] PATIENT SUMMARY Giovana Ledezma 72 y.o. female with Body mass index is 42.73 kg/m . Planned Procedures: Laparoscopic Sleeve Gastrectomy and Laparoscopic Liver Biopsy DM[] HTN[x] JENNIFER[x] GERD[] HL[x] OA[] TOB[x] Date of Surgery: TBD MADINA BAIRD INITIAL PRE-OP TESTING ORDERS/ RESULTS Labwork [x] CMP, TSH, Fasting Lipid Profile, Mg, Zinc, Vit B1 (whole blood), Vit B12, 25-OH Vit D, Fe, Ferritin, Folate, Hgb A1c EGD [x] Dx: [] GERD [x] Dyspepsia [] Other [] Not ordered Pathology [x] H. pylori [] Negative [] Positive [] Stool Antigen UGI [x] US Abdomen [] [x] S/p carlos alberto [] Not ordered JENNIFER eval [] [] On CPAP / Obtain settings Toxicology [x] [x] Urine drug screen/ETOH [x] Nicotine Additional [] INITIAL CONSULTATIONS ORDERED CLEARANCE / MANAGEMENT Psychology [x] Dietitian [x] Cardiology [x] Pulmonary [x] Others [] []Heme/Onc [x]Pain mgmt: Dr. Lin [x]Other: Dr. Ga - psych ALSO - will need clearance from Neurology - seeing him (new provider) in May 2023 PSD [x] Physician supervised diet: []None []3 mos [x]6 mos Preop diet [x] Preop low calorie diet: []1 wk [x]2 wks [] Other: FINAL PRE-OP TESTING ORDERS RESULTS Labwork [x] [x] CBC [x]BMP []Serum Nicotine / Cotinine EKG [x] CXR [] POST-OP MEDICATIONS Ulcer Ppx [] Omeprazole 20 mg PO []QD Gallstone Ppx [] Ursodiol 300 mg []BID DVT Ppx [] DVT prophylaxis per final preop visit estimated risk Estimated calculated risk: % Schedule final pre-operative office visit with surgeon, pre-operative education class, and pre-operative exercise class prior to date of surgery I had a long discussion with her regarding our options. She will need to quit smoking and she is aware, she will work with her PCP for patches. She has a history of substance abuse, she has been clean for over 12 years and gets monthly injections. She also has a history of bipolar and has been hospitalized approximately 3 years ago. Since they have started Vraylar she has been very well controlled and has a new psychiatrist that she has been compliant with, both in [place] and now in [place] She will need 6 months of physician directed diet and exercise, all of her questions were answered to her satisfaction and we will move forward with the medical and cardiac risk stratification and insurance precertification process I met with her today to discuss risks and benefits of laparoscopic weight loss surgery, the risks and benefits are outlined as above and visual aids were used to describe the procedure. I personally performed the evaluation and management of Giovana Powell in the development of a treatment plan for this patient. I personally interviewed the patient and performed an individual physical examination. In addition, I discussed the patient's condition and treatment options with them. I have also reviewed and agree with the past medical, family and social history unless otherwise noted. All of the patient's questions were answered. I discussed/counseled the patient regarding the risks and benefits of surgery as well as the preoperative and postoperative care plan for this patient. The patient was seen and examined independently and relevant data reviewed by myself. A full chart review was performed. Due to the complexity of the patients condition as well as having at least one medical condition as listed above in medical history that is progressing despite medical management, this patient is considered high medical decision making and surgical intervention is necessary to help decrease the risk of continued chronic illness. The patient was seen and examined independently and relevant data reviewed by myself. A full chart review was performed. Patient Care Team: Leopoldo rajput PCP - General Adelina Lin DO (Addiction Medicine) Dejah Drew APRN - RAT POISONER (Nurse Practitioner) Manjit Ga DO (Psychiatry) Initial New [facility] surgical patient Navigation & Financial Counseling Discussion Patient Communication: In office SURGEON: [x] JZ [] AD [] MP [] TB [] LM PROCEDURE: [] LRYGB [] LSG [] SIMI-S [] SIMI [] UNDECIDED [] REV: SPECIFY: Confirmed pt wants to continue with surgical program/plan [] YES [] NO (complete program withdrawal note/process) CO-MORBIDS: [] NONE [] DM []HTN [] JENNIFER []GERD [] OTH: PRIVATE PAY: [] NO []YES DATE OF INITIAL BENEFITS VERIFICATION: TRANSFER FU: [] YES [] NO PRIMARY INSURANCE: Payor: [employer] MEDICARE / Plan: [employer] DUAL ADVANTAGE / Product Type: Medicare HMO / BENEFIT ON PLAN: [] NO [] YES BENEFIT MAX: [] NO [] YES -- BENEFIT MAX: $ EMPLOYER: DIET AND EXERCISE (DE) REQUIREMENT PRIMARY [] NONE []3M [x] 6M []9M [] Medicare 4 Months [] SPR (3M) []OTHER: SECONDARY INSURANCE: BENEFIT ON PLAN: [] NO [] YES BENEFIT MAX: [] NO [] YES -- BENEFIT MAX: $ AUTH REQUIRED FROM SECONDARY [] NO [] YES DIET AND EXERCISE REQUIREMENT SECONDARY [] NONE []3M [] 6M [] Medicare 4 months [] SPR (3M) []OTHER: ___ [x] Discussed with patient: Financial cost overview (document signed and pt given copy at new pt consult visit with surgeon), Initial appointments: Bariatric Nutrition Assessment (BNA) & Diet and Exercise (DE) Patient to look for yellow envelope in mail. This yellow envelope will contain orders for labs, testing and required clearances. Pt encouraged to complete early in program to prevent delays. Encourage blood work to be draw by 1st DE appointment. [x] Reviewed OOP cost, including: [] Optifast cost of approximately $130-140/week x weeks immediately prior to surgery - used to induce rapid weight loss which results in decrease in size of liver and therefore facilitates laparoscopically surgery approach. [] Overview of inpatient admission benefits - estimated inpatient co-pays, deductibles and/or co-insurance - Estimated OOP costs form reviewed with patient, and copy given to patient at new pt visit. [x] Reviewed next steps with patient: 1) Scheduled at new pt surgeon visit: Outsole Cementer Machine (RD) for a Nutrition Assessment (BNA) and Pre-operative Diet and Exercise (DE) appointment #1. [x] Patient reminded to arrive 15 minutes early for check in. Late arrivals may need to be rescheduled. 2) Schedule: Diet and Exercise Apt #2 only scheduled after initial BNA and DE completed, 3) Behavioral Health apt scheduled after DE started. Reviewed rational and goal of Behavioral Health appointments. 4) [x] Reinforced need to cancel any WMI appointments 48 hours in advance. Cautioned NS/Same day cancellations may result in delay in program or program completion hold. Noted: DE series needs to be a monthly series or insurance company may require repeat of the entire series. 5) [x] Smoker/tobacco products including vaping: reviewed need for cessation before surgery clearance and life long abstinence after surgery for best outcomes. Patient navigation to surgery: [x] Explained to patient that average time from initial consult to date of surgery can be 6-8 months. - Process can take longer if there are cancelled appointments, delays in testing and/or additional clearances that needs to be completed. - Reviewed importance of patient active engagement in making and keeping appointments to keep the process moving. - Reinforced need to cancel appointments at least 48 hours in advance. Reviewed that instances of No Shows and Same Day Appointment Cancellations may result in program/surgery delay or hold. [x] Patient advised of importance of having voicemail and MyChart for office communications and lab/testing results before and after surgery. documented in this encounter [facility] 05-14-2023 History of Present illness Narrative [facility] SURGICAL WEIGHT LOSS MANAGEMENT PROGRAM SUPERVISED DIET AND EXERCISE ROOMING: INITIAL VISIT Patient: Giovana Powell Date of : 1950 Service Date: 05/14/2023 Patient is here today to initiate physician-supervised diet and exercise as required by their insurance company prior to approval for weight loss surgery. This patient is alone for the evaluation today This is visit 1 of 6 required visits. Weight Metrics: (From Surgical Wet Loss Management) Today's Vital Signs: Non-Surgical Initial Eval Consult Date: 05/14/23 Initial Height: 5' (152.4 cm) Initial Weight: 223 lb 6.4 oz (101 kg) [place] Body Weight: 120 lb (54.4 kg) Initial BMI: 43.63 Initial Body Fat %: 52.36 EBW: 103 lb (From NonSurgical Weight Loss Tracker) Falls Risk Assessment Patient does take medications which affect BP or mental status Patient does not have newly prescribed or changed dosage of medications within past 30 days which affect BP or mental status Patient has not fallen in the past 2 months Patient uses the following ambulatory assistive devices: Rolling Walker Patient states the presence of the following traits which increases risk of fall: weakness, bad knees Patient is noton home O2 Completed by: Juanita Daigle MA [facility] SURGICAL WEIGHT LOSS MANAGEMENT PROGRAM PHYSICIAN SUPERVISED DIET AND EXERCISE SURGICAL PREPARATORY REGIMEN PROGRESS NOTE INITIAL EVALUATION Patient: Giovana Powell Service Date: 05/14/2023 Date of : 1950 Navigation Plan: Patient History/Assessment Summary: The patient is a pleasant 72 y.o. year old female, who stands Height: 5' (152.4 cm) tall with a weight of Weight: 223 lb 6.4 oz (101 kg) pounds, resulting in a BMI of Body mass index is 43.63 kg/m . kg/m2. They have been overweight for years, have tried and failed multiple previous diet attempts, and is now in the process of undergoing evaluation for surgical treatment of their severe obesity and GERD, Fatty Liver Disease, High Cholesterol, HTN, JENNIFER with or without CPAP, and Other pre-diabetes . They are here today to initiate monthly physician supervised diet and exercise as part of their surgical preparatory regimen. The patient does not have any acute complaints. History: Past Medical History: Diagnosis Date Anemia Anesthesia complication Arthritis Knee Chest pain on exertion COPD (chronic obstructive pulmonary disease) (HCC) Depression Difficulty moving head Difficulty sleeping WEIR (dyspnea on exertion) Fatigue Fatty liver GERD (gastroesophageal reflux disease) History of blood transfusion 1986 History of melanoma History of UTI Hyperlipidemia Hypertension Joint pain, knee Muscle weakness Prediabetes Seizures (HCC) Snoring Past Surgical History: Procedure Laterality Date SECTION, LOW TRANSVERSE 1979, 1980, 1985 Dr. Newell/ [facility] CHOLECYSTECTOMY 2019 laparoscopic -[place] HYSTERECTOMY [facility] Family History Problem Relation Name Age of Onset Cancer Sister Obesity Sister Diabetes Brother Hypertension Brother Obesity Brother Obesity Maternal Grandfather Obesity Maternal Grandmother Social History Tobacco Use Smoking status: Every Day Packs/day: 1.00 Types: Cigarettes Start date: 1987 Smokeless tobacco: Never Substance Use Topics Alcohol use: Not Currently Current Meds Patient's Medications New Prescriptions No medications on file Previous Medications ANTIFUNGAL 2 % POWDER ASCORBIC ACID (VITAMIN C) 500 MG ER CAPSULE Take 500 mg by mouth. BUPRENORPHINE ER (SUBLOCADE) 100 MG/0.5ML INJECTION Inject 1 each under the skin every month to absorb continually. CARIPRAZINE 3 MG CAPSULE Take 1 capsule by mouth in the morning. DIVALPROEX (DEPAKOTE ER) 500 MG 24 HR TABLET Take 50 mg by mouth in the morning and 50 mg in the evening. FEROSUL 325 (65 FE) MG TABLET Take 325 mg by mouth every other day. FESOTERODINE ER (TOVIAZ) 4 MG 24 HR TABLET Take 4 mg by mouth daily. FUROSEMIDE (LASIX) 20 MG TABLET Take 20 mg by mouth daily. HYDRALAZINE (APRESOLINE) 10 MG TABLET Take 10 mg by mouth in the morning. LAMOTRIGINE (LAMICTAL) 200 MG TABLET Take 1 tablet by mouth Nightly. LISINOPRIL 40 MG TABLET Take 40 mg by mouth. METAMUCIL FIBER PO Take by mouth. METOPROLOL SUCCINATE XL (TOPROL-XL) 25 MG 24 HR TABLET Take 25 mg by mouth daily. METOPROLOL SUCCINATE XL (TOPROL-XL) 50 MG 24 HR TABLET Take 50 mg by mouth in the morning. MYRBETRIQ 50 MG 24 HR TABLET Take 50 mg by mouth daily. NICOTINE (NICOTINE STEP 2) 14 MG/24HR PATCH Place 1 patch on the skin Every 24 hours. Modified Medications No medications on file Discontinued Medications NYAMYC [id number] UNIT/GM POWDER This patient's excess weight is causing the following co-morbid conditions at this time:GERD, Fatty Liver Disease, High Cholesterol, HTN, JENNIFER with or without CPAP, and Other pre-diabetes Initial Diet & Exercise/SPR Visit Weight Metrics: Date of Initial Diet & Exercise Visit: Consult Date: 05/14/23 Initial Weight: Initial Weight: 223 lb 6.4 oz (101 kg) Initial BMI: Initial BMI: 43.63 [place] Body Weight: [place] Body Weight: 120 lb (54.4 kg) Excess Body Weight: EBW: 103 lb Physical Examination: BP (!) 153/90 Pulse 81 Ht 5' (1.524 m) Wt 223 lb 6.4 oz (101 kg) BMI 43.63 kg/m General: Alert and oriented x 4, obese, no distress. normocephalic and atraumatic Cardiac: Regular rate and rhythm without evidence of murmur Respiratory: Clear to auscultation bilaterally; No evidence of respiratory distress Musculoskeletal: No edema of extremities, ambulatory without assistance Neurological: Intact x 4 extremities, nonfocal neurologic exam, no focal deficits notes. Current Diet This patient s current diet: Bread and carrizales at night Sweetened coffee Reviewed PAST DIET HISTORY FORM and CURRENT DIET HISTORY FORM with patient (located in Medical Lead) I reviewed all of the patient's medications and diagnoses listed in Epic. Comfort foods include:salty foods Current Activity Walks with walker Current Eating Behaviors This patients demonstrates the following behaviors as they relate to eating:eats at night Eats approximately 2-3 times per day. Plan: --Obesity Class III, Elevated BMI Diet and exercise (DE) Following with bariatric surgery Advised patient that they must adhere to regular monthly visits to meet the requirements of the insurance company. Additionally, they must demonstrate meal plan adoption to show readiness for the changes that will be required following surgery. Diet recommendations provided to patient verbally and in the form of handouts; they understood and agreed with plan. --HTN: 153/90, asymptomatic, stable, continue current meds per outpatient providers, continue monitoring, Discussed blood pressure could decrease with weight loss, potentially resulting in dizziness/lightheadedness (which can result in fall/injury). Patient understood. Adequate hydration and follow up with PCP for abnormal blood pressures and possible medication adjustments discussed - patient understood and agreed. --Pre-Diabetes, diet controlled, discussed blood glucose could decrease with weight loss. Patient understood. They are aware of symptoms of hypoglycemia and treatment of hypoglycemia. Patient will follow up with their outpatient providers for diabetes management --Sleep apnea: does not wear PAP (intolerant), we discussed potential life threatening risks of untreated sleep apnea before and after surgery, she understood and agrees to follow up with her sleep specialist in [place], she also requires pulmonology clearance prior to surgery --smoking cessation: recently quit with nicotine patch --Fatty liver --GERD --HLD Plan of care discussed with patient, all questions answered, they agree with plan of care. Medical decision making: Patient's medical conditions place them at a moderate risk of complications, morbidity, and mortality. Patient to return for follow up in one month. No orders of the defined types were placed in this encounter. Kareem Hartmann MD 05/14/2023 1:31 PM documented in this encounter [facility] 05-13-2023 Note Addended by: BRETT BERNAL on: 05/13/2023 09:07 AM Modules accepted: Orders [facility] 05-13-2023 Note Addended by: BRETT BERNAL on: 05/13/2023 09:07 AM Modules accepted: Orders [facility] 05-13-2023 Note Addended by: BRETT BERNAL on: 05/13/2023 09:07 AM Modules accepted: Orders [facility] 05-13-2023 Note Addended by: BRETT BERNAL on: 05/13/2023 09:07 AM Modules accepted: Orders [facility] 05-13-2023 Note Addended by: BRETT BERNAL on: 05/13/2023 09:07 AM Modules accepted: Orders [facility] 05-13-2023 Telephone encounter Note Signed and printed orders Neuro clearance will be needed once we know name of provider- she has appt in May Psych clearance will defer to our psychologists to obtain records from Dr. Ga T [facility] 05-11-2023 Note Plan: I have recommended proceeding with the evaluation, workup and marketing sales consultant preoperative consultations and testing for the primary procedure as outlined below: BARIATRIC AND METABOLIC SURGERY [facility] PATIENT SUMMARY Giovana Ledezma 72 y.o. female with Body mass index is 42.73 kg/m?. Planned Procedures: Laparoscopic Sleeve Gastrectomy and Laparoscopic Liver Biopsy DM[] HTN[x] JENNIFER[x] GERD[] HL[x] OA[] TOB[x] Date of Surgery: TBD MADINA BAIRD INITIAL PRE-OP TESTING ORDERS/ RESULTS Labwork [x] CMP, TSH, Fasting Lipid Profile, Mg, Zinc, Vit B1 (whole blood), Vit B12, 25-OH Vit D, Fe, Ferritin, Folate, Hgb A1c EGD [x] Dx: [] GERD [x] Dyspepsia [] Other [] Not ordered Pathology [x] H. pylori [] Negative [] Positive [] Stool Antigen UGI [x] US Abdomen [] [x] S/p carlos alberto [] Not ordered JENNIFER eval [] [] On CPAP / Obtain settings Toxicology [x] [x] Urine drug screen/ETOH [x] Nicotine Additional [] INITIAL CONSULTATIONS ORDERED CLEARANCE / MANAGEMENT Psychology [x] Dietitian [x] Cardiology [x] Pulmonary [x] Others [] []Heme/Onc [x]Pain mgmt: Dr. Lin [x]Other: Dr. Ga - psych ALSO - will need clearance from Neurology - seeing him (new provider) in May 2023 PSD [x] Physician supervised diet: []None []3 mos [x]6 mos Preop diet [x] Preop low calorie diet: []1 wk [x]2 wks [] Other: FINAL PRE-OP TESTING ORDERS RESULTS Labwork [x] [x] CBC [x]BMP []Serum Nicotine / Cotinine EKG [x] CXR [] POST-OP MEDICATIONS Ulcer Ppx [] Omeprazole 20 mg PO []QD Gallstone Ppx [] Ursodiol 300 mg []BID DVT Ppx [] DVT prophylaxis per final preop visit estimated risk Estimated calculated risk: % Schedule final pre-operative office visit with surgeon, pre-operative education class, and pre-operative exercise class prior to date of surgery I had a long discussion with her regarding our options. She will need to quit smoking and she is aware, she will work with her PCP for patches. She has a history of substance abuse, she has been clean for over 12 years and gets monthly injections. She also has a history of bipolar and has been hospitalized approximately 3 years ago. Since they have started Vraylar she has been very well controlled and has a new psychiatrist that she has been compliant with, both in [place] and now in [place] She will need 6 months of physician directed diet and exercise, all of her questions were answered to her satisfaction and we will move forward with the medical and cardiac risk stratification and insurance precertification process I met with her today to discuss risks and benefits of laparoscopic weight loss surgery, the risks and benefits are outlined as above and visual aids were used to describe the procedure. I personally performed the evaluation and management of Giovana Powell in the development of a treatment plan for this patient. I personally interviewed the patient and performed an individual physical examination. In addition, I discussed the patient's condition and treatment options with them. I have also reviewed and agree with the past medical, family and social history unless otherwise noted. All of the patient's questions were answered. I discussed/counseled the patient regarding the risks and benefits of surgery as well as the preoperative and postoperative care plan for this patient. The patient was seen and examined independently and relevant data reviewed by myself. A full chart review was performed. Due to the complexity of the patients condition as well as having at least one medical condition as listed above in medical history that is progressing despite medical management, this patient is considered high medical decision making and surgical intervention is necessary to help decrease the risk of continued chronic illness. The patient was seen and examined independently and relevant data reviewed by myself. A full chart review was performed. Patient Care Team: Leopoldo Baird as PCP - General Adelina Lin DO (Addiction Medicine) Dejah Drew APRN - PATRICIO (Nurse Practitioner) Manjit Ga DO (Psychiatry) [facility] 05-11-2023 Note Addended by: Jerrell MORRIS on: 05/11/2023 08:06 AM Modules accepted: Orders [facility] 05-11-2023 Note Addended by: Jerrell MORRIS on: 05/11/2023 08:06 AM Modules accepted: Orders [facility] 05-11-2023 Note Addended by: Jerrell MORRIS on: 05/11/2023 08:06 AM Modules accepted: Orders [facility] 05-11-2023 Note Addended by: Jerrell MORRIS on: 05/11/2023 08:06 AM Modules accepted: Orders [facility] 05-11-2023 Note Addended by: Jerrell MORRIS on: 05/11/2023 08:06 AM Modules accepted: Orders [facility] 05-11-2023 Note Addended by: Jerrell MORRIS on: 05/11/2023 08:06 AM Modules accepted: Orders [facility] 05-11-2023 Miscellaneous Notes Addended by: MONICA MORRIS on: 05/11/2023 08:06 AM Modules accepted: Orders Orders pended, Pre op check list scanned to media. EGD order sent to ALS. Plan: I have recommended proceeding with the evaluation, workup and marketing sales consultant preoperative consultations and testing for the primary procedure as outlined below: BARIATRIC AND METABOLIC SURGERY [facility] PATIENT SUMMARY Giovana Ledezma 72 y.o. female with Body mass index is 42.73 kg/m . Planned Procedures: Laparoscopic Sleeve Gastrectomy and Laparoscopic Liver Biopsy DM[] HTN[x] JENNIFER[x] GERD[] HL[x] OA[] TOB[x] Date of Surgery: TBD MADINA BAIRD INITIAL PRE-OP TESTING ORDERS/ RESULTS Labwork [x] CMP, TSH, Fasting Lipid Profile, Mg, Zinc, Vit B1 (whole blood), Vit B12, 25-OH Vit D, Fe, Ferritin, Folate, Hgb A1c EGD [x] Dx: [] GERD [x] Dyspepsia [] Other [] Not ordered Pathology [x] H. pylori [] Negative [] Positive [] Stool Antigen UGI [x] US Abdomen [] [x] S/p carlos alberto [] Not ordered JENNIFER eval [] [] On CPAP / Obtain settings Toxicology [x] [x] Urine drug screen/ETOH [x] Nicotine Additional [] INITIAL CONSULTATIONS ORDERED CLEARANCE / MANAGEMENT Psychology [x] Dietitian [x] Cardiology [x] Pulmonary [x] Others [] []Heme/Onc [x]Pain mgmt: Dr. Lin [x]Other: Dr. Ga - psych ALSO - will need clearance from Neurology - seeing him (new provider) in May 2023 PSD [x] Physician supervised diet: []None []3 mos [x]6 mos Preop diet [x] Preop low calorie diet: []1 wk [x]2 wks [] Other: FINAL PRE-OP TESTING ORDERS RESULTS Labwork [x] [x] CBC [x]BMP []Serum Nicotine / Cotinine EKG [x] CXR [] POST-OP MEDICATIONS Ulcer Ppx [] Omeprazole 20 mg PO []QD Gallstone Ppx [] Ursodiol 300 mg []BID DVT Ppx [] DVT prophylaxis per final preop visit estimated risk Estimated calculated risk: % Schedule final pre-operative office visit with surgeon, pre-operative education class, and pre-operative exercise class prior to date of surgery I had a long discussion with her regarding our options. She will need to quit smoking and she is aware, she will work with her PCP for patches. She has a history of substance abuse, she has been clean for over 12 years and gets monthly injections. She also has a history of bipolar and has been hospitalized approximately 3 years ago. Since they have started Vraylar she has been very well controlled and has a new psychiatrist that she has been compliant with, both in [place] and now in [place] She will need 6 months of physician directed diet and exercise, all of her questions were answered to her satisfaction and we will move forward with the medical and cardiac risk stratification and insurance precertification process I met with her today to discuss risks and benefits of laparoscopic weight loss surgery, the risks and benefits are outlined as above and visual aids were used to describe the procedure. I personally performed the evaluation and management of Giovana Powell in the development of a treatment plan for this patient. I personally interviewed the patient and performed an individual physical examination. In addition, I discussed the patient's condition and treatment options with them. I have also reviewed and agree with the past medical, family and social history unless otherwise noted. All of the patient's questions were answered. I discussed/counseled the patient regarding the risks and benefits of surgery as well as the preoperative and postoperative care plan for this patient. The patient was seen and examined independently and relevant data reviewed by myself. A full chart review was performed. Due to the complexity of the patients condition as well as having at least one medical condition as listed above in medical history that is progressing despite medical management, this patient is considered high medical decision making and surgical intervention is necessary to help decrease the risk of continued chronic illness. The patient was seen and examined independently and relevant data reviewed by myself. A full chart review was performed. Patient Care Team: Leopoldo Baird as PCP - General Adelina Lin DO (Addiction Medicine) Dejah Drew APRN - PATRICIO (Nurse Practitioner) Manjit Ga DO (Psychiatry) Initial New BCC surgical patient Navigation & Financial Counseling Discussion Patient Communication: In office SURGEON: [x] JFátima [] AD [] MP [] TB [] LM PROCEDURE: [] LRYGB [] LSG [] SIMI-S [] SIMI [] UNDECIDED [] REV: SPECIFY: Confirmed pt wants to continue with surgical program/plan [] YES [] NO (complete program withdrawal note/process) CO-MORBIDS: [] NONE [] DM []HTN [] JENNIFER []GERD [] OTH: PRIVATE PAY: [] NO []YES DATE OF INITIAL BENEFITS VERIFICATION: TRANSFER FU: [] YES [] NO PRIMARY INSURANCE: Payor: [employer] MEDICARE / Plan: [employer] DUAL ADVANTAGE / Product Type: Medicare HMO / BENEFIT ON PLAN: [] NO [] YES BENEFIT MAX: [] NO [] YES -- BENEFIT MAX: $ EMPLOYER: DIET AND EXERCISE (DE) REQUIREMENT PRIMARY [] NONE []3M [x] 6M []9M [] Medicare 4 Months [] SPR (3M) []OTHER: SECONDARY INSURANCE: BENEFIT ON PLAN: [] NO [] YES BENEFIT MAX: [] NO [] YES -- BENEFIT MAX: $ AUTH REQUIRED FROM SECONDARY [] NO [] YES DIET AND EXERCISE REQUIREMENT SECONDARY [] NONE []3M [] 6M [] Medicare 4 months [] SPR (3M) []OTHER: ___ [x] Discussed with patient: Financial cost overview (document signed and pt given copy at new pt consult visit with surgeon), Initial appointments: Bariatric Nutrition Assessment (BNA) & Diet and Exercise (DE) Patient to look for yellow envelope in mail. This yellow envelope will contain orders for labs, testing and required clearances. Pt encouraged to complete early in program to prevent delays. Encourage blood work to be draw by 1st DE appointment. [x] Reviewed OOP cost, including: [] Optifast cost of approximately $130-140/week x weeks immediately prior to surgery - used to induce rapid weight loss which results in decrease in size of liver and therefore facilitates laparoscopically surgery approach. [] Overview of inpatient admission benefits - estimated inpatient co-pays, deductibles and/or co-insurance - Estimated OOP costs form reviewed with patient, and copy given to patient at new pt visit. [x] Reviewed next steps with patient: 1) Scheduled at new pt surgeon visit: Outsole Cementer Machine (RD) for a Nutrition Assessment (BNA) and Pre-operative Diet and Exercise (DE) appointment #1. [x] Patient reminded to arrive 15 minutes early for check in. Late arrivals may need to be rescheduled. 2) Schedule: Diet and Exercise Apt #2 only scheduled after initial BNA and DE completed, 3) Behavioral Health apt scheduled after DE started. Reviewed rational and goal of Behavioral Health appointments. 4) [x] Reinforced need to cancel any WMI appointments 48 hours in advance. Cautioned NS/Same day cancellations may result in delay in program or program completion hold. Noted: DE series needs to be a monthly series or insurance company may require repeat of the entire series. 5) [x] Smoker/tobacco products including vaping: reviewed need for cessation before surgery clearance and life long abstinence after surgery for best outcomes. Patient navigation to surgery: [x] Explained to patient that average time from initial consult to date of surgery can be 6-8 months. - Process can take longer if there are cancelled appointments, delays in testing and/or additional clearances that needs to be completed. - Reviewed importance of patient active engagement in making and keeping appointments to keep the process moving. - Reinforced need to cancel appointments at least 48 hours in advance. Reviewed that instances of No Shows and Same Day Appointment Cancellations may result in program/surgery delay or hold. [x] Patient advised of importance of having voicemail and MyChart for office communications and lab/testing results before and after surgery. documented in this encounter [facility] 05-11-2023 Telephone encounter Note Orders pended, Pre op check list scanned to media. EGD order sent to ALS. [facility] 05-11-2023 Telephone encounter Note Plan: I have recommended proceeding with the evaluation, workup and marketing sales consultant preoperative consultations and testing for the primary procedure as outlined below: BARIATRIC AND METABOLIC SURGERY [facility] PATIENT SUMMARY Giovana Ledezma 72 y.o. female with Body mass index is 42.73 kg/m . Planned Procedures: Laparoscopic Sleeve Gastrectomy and Laparoscopic Liver Biopsy DM[] HTN[x] JENNIFER[x] GERD[] HL[x] OA[] TOB[x] Date of Surgery: TBD MADINA BAIRD INITIAL PRE-OP TESTING ORDERS/ RESULTS Labwork [x] CMP, TSH, Fasting Lipid Profile, Mg, Zinc, Vit B1 (whole blood), Vit B12, 25-OH Vit D, Fe, Ferritin, Folate, Hgb A1c EGD [x] Dx: [] GERD [x] Dyspepsia [] Other [] Not ordered Pathology [x] H. pylori [] Negative [] Positive [] Stool Antigen UGI [x] US Abdomen [] [x] S/p carlos alberto [] Not ordered JENNIFER eval [] [] On CPAP / Obtain settings Toxicology [x] [x] Urine drug screen/ETOH [x] Nicotine Additional [] INITIAL CONSULTATIONS ORDERED CLEARANCE / MANAGEMENT Psychology [x] Dietitian [x] Cardiology [x] Pulmonary [x] Others [] []Heme/Onc [x]Pain mgmt: Dr. Lin [x]Other: Dr. Ga - psych ALSO - will need clearance from Neurology - seeing him (new provider) in May 2023 PSD [x] Physician supervised diet: []None []3 mos [x]6 mos Preop diet [x] Preop low calorie diet: []1 wk [x]2 wks [] Other: FINAL PRE-OP TESTING ORDERS RESULTS Labwork [x] [x] CBC [x]BMP []Serum Nicotine / Cotinine EKG [x] CXR [] POST-OP MEDICATIONS Ulcer Ppx [] Omeprazole 20 mg PO []QD Gallstone Ppx [] Ursodiol 300 mg []BID DVT Ppx [] DVT prophylaxis per final preop visit estimated risk Estimated calculated risk: % Schedule final pre-operative office visit with surgeon, pre-operative education class, and pre-operative exercise class prior to date of surgery I had a long discussion with her regarding our options. She will need to quit smoking and she is aware, she will work with her PCP for patches. She has a history of substance abuse, she has been clean for over 12 years and gets monthly injections. She also has a history of bipolar and has been hospitalized approximately 3 years ago. Since they have started Vraylar she has been very well controlled and has a new psychiatrist that she has been compliant with, both in [place] and now in [place] She will need 6 months of physician directed diet and exercise, all of her questions were answered to her satisfaction and we will move forward with the medical and cardiac risk stratification and insurance precertification process I met with her today to discuss risks and benefits of laparoscopic weight loss surgery, the risks and benefits are outlined as above and visual aids were used to describe the procedure. I personally performed the evaluation and management of Giovana Powell in the development of a treatment plan for this patient. I personally interviewed the patient and performed an individual physical examination. In addition, I discussed the patient's condition and treatment options with them. I have also reviewed and agree with the past medical, family and social history unless otherwise noted. All of the patient's questions were answered. I discussed/counseled the patient regarding the risks and benefits of surgery as well as the preoperative and postoperative care plan for this patient. The patient was seen and examined independently and relevant data reviewed by myself. A full chart review was performed. Due to the complexity of the patients condition as well as having at least one medical condition as listed above in medical history that is progressing despite medical management, this patient is considered high medical decision making and surgical intervention is necessary to help decrease the risk of continued chronic illness. The patient was seen and examined independently and relevant data reviewed by myself. A full chart review was performed. Patient Care Team: Leopoldo Baird as PCP - General Adelina Lin DO (Addiction Medicine) Dejah Drew APRN - PATRICIO (Nurse Practitioner) Manjit Ga DO (Psychiatry) [facility] 04-30-2023 Note Initial New BCC surg ical patient Navigation & Financial Counseling Discussion Patient Communication: In office SURGEON: [x] MADINA [] AD [] MP [] TB [] LM PROCEDURE: [] LRYGB [] LSG [] SIMI-S [] SIMI [] UNDECIDED [] REV: SPECIFY: Confirmed pt wants to continue with surgical program/plan [] YES [] NO (complete program withdrawal note/process) CO-MORBIDS: [] NONE [] DM []HTN [] JENNIFER []GERD [] OTH: PRIVATE PAY: [] NO []YES DATE OF INITIAL BENEFITS VERIFICATION: TRANSFER FU: [] YES [] NO PRIMARY INSURANCE: Payor: [employer] MEDICARE / Plan: [employer] DUAL ADVANTAGE / Product Type: Medicare HMO / BENEFIT ON PLAN: [] NO [] YES BENEFIT MAX: [] NO [] YES -- BENEFIT MAX: $ EMPLOYER: DIET AND EXERCISE (DE) REQUIREMENT PRIMARY [] NONE []3M [x] 6M []9M [] Medicare 4 Months [] SPR (3M) []OTHER: SECONDARY INSURANCE: BENEFIT ON PLAN: [] NO [] YES BENEFIT MAX: [] NO [] YES -- BENEFIT MAX: $ AUTH REQUIRED FROM SECONDARY [] NO [] YES DIET AND EXERCISE REQUIREMENT SECONDARY [] NONE []3M [] 6M [] Medicare 4 months [] SPR (3M) []OTHER: ___ [x] Discussed with patient: Financial cost overview (document signed and pt given copy at new pt consult visit with surgeon), Initial appointments: Bariatric Nutrition Assessment (BNA) & Diet and Exercise (DE) Patient to look for yellow envelope in mail. This yellow envelope will contain orders for labs, testing and required clearances. Pt encouraged to complete early in program to prevent delays. Encourage blood work to be draw by 1st DE appointment. [x] Reviewed OOP cost, including: [] Optifast cost of approximately $130-140/week x weeks immediately prior to surgery - used to induce rapid weight loss which results in decrease in size of liver and therefore facilitates laparoscopically surgery approach. [] Overview of inpatient admission benefits - estimated inpatient co-pays, deductibles and/or co-insurance - Estimated OOP costs form reviewed with patient, and copy given to patient at new pt visit. [x] Reviewed next steps with patient: 1) Scheduled at new pt surgeon visit: Outsole Cementer Machine (RD) for a Nutrition Assessment (BNA) and Pre-operative Diet and Exercise (DE) appointment #1. [x] Patient reminded to arrive 15 minutes early for check in. Late arrivals may need to be rescheduled. 2) Schedule: Diet and Exercise Apt #2 only scheduled after initial BNA and DE completed, 3) Behavioral Health apt scheduled after DE started. Reviewed rational and goal of Behavioral Health appointments. 4) [x] Reinforced need to cancel any WMI appointments 48 hours in advance. Cautioned NS/Same day cancellations may result in delay in program or program completion hold. Noted: DE series needs to be a monthly series or insurance company may require repeat of the entire series. 5) [x] Smoker/tobacco products including vaping: reviewed need for cessation before surgery clearance and life long abstinence after surgery for best outcomes. Patient navigation to surgery: [x] Explained to patient that average time from initial consult to date of surgery can be 6-8 months. - Process can take longer if there are cancelled appointments, delays in testing and/or additional clearances that needs to be completed. - Reviewed importance of patient active engagement in making and keeping appointments to keep the process moving. - Reinforced need to cancel appointments at least 48 hours in advance. Reviewed that instances of No Shows and Same Day Appointment Cancellations may result in program/surgery delay or hold. [x] Patient advised of importance of having voicemail and MyChart for office communications and lab/testing results before and after surgery. [facility] 04-30-2023 Telephone encounter Note Initial New [facility] surgical patient Navigation & Financial Counseling Discussion Patient Communication: In office SURGEON: [x] MADINA [] AD [] MP [] TB [] LM PROCEDURE: [] LRYGB [] LSG [] SIMI-S [] SIMI [] UNDECIDED [] REV: SPECIFY: Confirmed pt wants to continue with surgical program/plan [] YES [] NO (complete program withdrawal note/process) CO-MORBIDS: [] NONE [] DM []HTN [] JENNIFER []GERD [] OTH: PRIVATE PAY: [] NO []YES DATE OF INITIAL BENEFITS VERIFICATION: TRANSFER FU: [] YES [] NO PRIMARY INSURANCE: Payor: [facility] MEDICARE / Plan: [facility] DUAL ADVANTAGE / Product Type: Medicare HMO / BENEFIT ON PLAN: [] NO [] YES BENEFIT MAX: [] NO [] YES -- BENEFIT MAX: $ EMPLOYER: DIET AND EXERCISE (DE) REQUIREMENT PRIMARY [] NONE []3M [x] 6M []9M [] Medicare 4 Months [] SPR (3M) []OTHER: SECONDARY INSURANCE: BENEFIT ON PLAN: [] NO [] YES BENEFIT MAX: [] NO [] YES -- BENEFIT MAX: $ AUTH REQUIRED FROM SECONDARY [] NO [] YES DIET AND EXERCISE REQUIREMENT SECONDARY [] NONE []3M [] 6M [] Medicare 4 months [] SPR (3M) []OTHER: ___ [x] Discussed with patient: Financial cost overview (document signed and pt given copy at new pt consult visit with surgeon), Initial appointments: Bariatric Nutrition Assessment (BNA) & Diet and Exercise (DE) Patient to look for yellow envelope in mail. This yellow envelope will contain orders for labs, testing and required clearances. Pt encouraged to complete early in program to prevent delays. Encourage blood work to be draw by 1st DE appointment. [x] Reviewed OOP cost, including: [] Optifast cost of approximately $130-140/week x weeks immediately prior to surgery - used to induce rapid weight loss which results in decrease in size of liver and therefore facilitates laparoscopically surgery approach. [] Overview of inpatient admission benefits - estimated inpatient co-pays, deductibles and/or co-insurance - Estimated OOP costs form reviewed with patient, and copy given to patient at new pt visit. [x] Reviewed next steps with patient: 1) Scheduled at new pt surgeon visit: Outsole Cementer Machine (RD) for a Nutrition Assessment (BNA) and Pre-operative Diet and Exercise (DE) appointment #1. [x] Patient reminded to arrive 15 minutes early for check in. Late arrivals may need to be rescheduled. 2) Schedule: Diet and Exercise Apt #2 only scheduled after initial BNA and DE completed, 3) Behavioral Health apt scheduled after DE started. Reviewed rational and goal of Behavioral Health appointments. 4) [x] Reinforced need to cancel any WMI appointments 48 hours in advance. Cautioned NS/Same day cancellations may result in delay in program or program completion hold. Noted: DE series needs to be a monthly series or insurance company may require repeat of the entire series. 5) [x] Smoker/tobacco products including vaping: reviewed need for cessation before surgery clearance and life long abstinence after surgery for best outcomes. Patient navigation to surgery: [x] Explained to patient that average time from initial consult to date of surgery can be 6-8 months. - Process can take longer if there are cancelled appointments, delays in testing and/or additional clearances that needs to be completed. - Reviewed importance of patient active engagement in making and keeping appointments to keep the process moving. - Reinforced need to cancel appointments at least 48 hours in advance. Reviewed that instances of No Shows and Same Day Appointment Cancellations may result in program/surgery delay or hold. [x] Patient advised of importance of having voicemail and MyChart for office communications and lab/testing results before and after surgery. [facility] 04-30-2023 History of Present illness Narrative Images from the original note were not included. [facility] SURGICAL PROGRAM INITIAL EVALUATION Patient: Giovana Powell Date of : 1950 Service Date: 04/30/23 Patient History: The patient is a pleasant 72 y.o. year old female with morbid obesity, who stands Height: 5' (152.4 cm) tall with a weight of Weight: 218 lb 12.8 oz (99.2 kg) , resulting in a BMI of Body mass index is 42.73 kg/m .. She is interested in discussing weight loss surgery. The patient suffers from multiple co-morbidities as a result of morbid obesity, including: JENNIFER, HTN, HLD PMHx: Past Medical History: Diagnosis Date Anemia Anesthesia complication Arthritis Knee Chest pain on exertion COPD (chronic obstructive pulmonary disease) (HCC) Depression Difficulty moving head Difficulty sleeping WEIR (dyspnea on exertion) Fatigue Fatty liver GERD (gastroesophageal reflux disease) History of blood transfusion 1986 History of melanoma History of UTI Hyperlipidemia Hypertension Joint pain, knee Muscle weakness Prediabetes Seizures (HCC) Snoring Co-Morbidity Assessment Co-Morbidity Initial Evaluation Today s Visit Type 2 DM no HTN yes JENNIFER Yes-unable to tolerate CPAP GERD no Elevated CHO/Lipids yes Depression yes The patient denies a history of myocardia infarction, deep vein thrombosis, pulmonary embolism, renal failure, hepatic failure, and stroke. On Sublocade injections monthly - clean for 12 years. Hx of seizure disorder- stable on Depakote-last seizure was 35 years ago. PSHx: Past Surgical History: Procedure Laterality Date SECTION, LOW TRANSVERSE 1979, 1980, 1985 Dr. Newell/ [facility] general CHOLECYSTECTOMY 2019 laparoscopic -[place] HYSTERECTOMY [facility] Social History: This patient is unaccompanied for the evaluation today, She does smoke, and does not drink alcohol. Review of Systems Constitutional: Negative for chills and fever. HENT: Negative for congestion, sore throat and trouble swallowing. Respiratory: Positive for shortness of breath (with exertion). Negative for cough. Cardiovascular: Negative for chest pain and palpitations. Gastrointestinal: Positive for constipation. Negative for abdominal pain, diarrhea, nausea and vomiting. Genitourinary: Negative for dysuria and frequency. Musculoskeletal: Positive for arthralgias. Negative for back pain. Skin: Negative for color change. Neurological: Negative for dizziness and light-headedness. Psychiatric/Behavioral: The patient is not nervous/anxious. Physical Examination: BP 121/81 Pulse 75 Temp 36.5 C (97.7 F) Resp 18 Ht 5' (1.524 m) Wt 218 lb 12.8 oz (99.2 kg) BMI 42.73 kg/m General: This patient is awake, alert, and oriented, and is in no apparent distress. Respiratory: Non-labored breathing Abdomen: Obese, soft, non-tender, non-distended, without masses. Incisions consistent with previous surgeries. Pfannenstiel s/p c sections and hysterectomy. Head and Neck: Obese, normocephalic and atraumatic. Soft and supple. Extremities: No cyanosis, clubbing or edema/ No calf tenderness/she is using a wheeled walker today for stability. Neurological: Intact x 4 extremities, no focal deficits notes. Skin: No rashes or lesions noted. Rectal: Not Done Hernia: no hernias found on exam Assessment: The patient has failed multiple attempts at non-surgical weight loss, and is now seeking surgical intervention to promote permanent and consistent weight loss. She has chosen Laparoscopic Sleeve Gastrectomy and Laparoscopic Liver Biopsy. She is well educated regarding it, as she has recently viewed our weight loss surgery informational seminar . In anticipation of weight reductive surgery now or in the future, we spent a great deal of time discussing the risks and benefits of, including but not limited to injury to intra-abdominal organs, breakdown of the gastric staple line, the need for re-operative therapy, prolonged hospitalization, mechanical ventilation, and . We discussed the possibility of bleeding, the need for blood transfusions, blood clots, hospital-acquired and intra-abdominal infection, anastomotic stricture, and worsening GERD. And we discussed the need for post-operative visit compliance, behavior modifications and diet changes, protein and vitamin supplementation, as well as routine scheduled and dedicated exercise. We discussed the potential weight loss benefit of approximately 60-70% of her excess body weight at 12-18 months post-op (LRYGB) and 50% of her excess body weight loss at 12-18 months after a LSG, as well as the possibility of insufficient weight loss or weight gain after 2 years post-operative time. Upon completion of all required pre-operative testing we will submit for insurance pre-authorization. All female patients of childbearing age were advised to refrain from becoming for 12-18 months after weight loss surgery. I advised them to discuss with their physician/quality facilitator regarding contraception to prevent during this period of time after surgery. In addition, all patients were counseled on compliance with prescribed vitamin supplementation, office visit follow-up and compliance with program standards. Plan: I have recommended proceeding with the evaluation, workup and marketing sales consultant preoperative consultations and testing for the primary procedure as outlined below: BARIATRIC AND METABOLIC SURGERY [facility] PATIENT SUMMARY Giovana Ledezma 72 y.o. female with Body mass index is 42.73 kg/m . Planned Procedures: Laparoscopic Sleeve Gastrectomy and Laparoscopic Liver Biopsy DM[] HTN[x] JENNIFER[x] GERD[] HL[x] OA[] TOB[x] Date of Surgery: TANIA BAIRD INITIAL PRE-OP TESTING ORDERS/ RESULTS Labwork [x] CMP, TSH, Fasting Lipid Profile, Mg, Zinc, Vit B1 (whole blood), Vit B12, 25-OH Vit D, Fe, Ferritin, Folate, Hgb A1c EGD [x] Dx: [] GERD [x] Dyspepsia [] Other [] Not ordered Pathology [x] H. pylori [] Negative [] Positive [] Stool Antigen UGI [x] US Abdomen [] [x] S/p carlos alberto [] Not ordered JENNIFER eval [] [] On CPAP / Obtain settings Toxicology [x] [x] Urine drug screen/ETOH [x] Nicotine Additional [] INITIAL CONSULTATIONS ORDERED CLEARANCE / MANAGEMENT Psychology [x] Dietitian [x] Cardiology [x] Pulmonary [x] Others [] []Heme/Onc [x]Pain mgmt: Dr. Lin [x]Other: Dr. Ga - psych ALSO - will need clearance from Neurology - seeing him (new provider) in May 2023 PSD [x] Physician supervised diet: []None []3 mos [x]6 mos Preop diet [x] Preop low calorie diet: []1 wk [x]2 wks [] Other: FINAL PRE-OP TESTING ORDERS RESULTS Labwork [x] [x] CBC [x]BMP []Serum Nicotine / Cotinine EKG [x] CXR [] POST-OP MEDICATIONS Ulcer Ppx [] Omeprazole 20 mg PO []QD Gallstone Ppx [] Ursodiol 300 mg []BID DVT Ppx [] DVT prophylaxis per final preop visit estimated risk Estimated calculated risk: % Schedule final pre-operative office visit with surgeon, pre-operative education class, and pre-operative exercise class prior to date of surgery I had a long discussion with her regarding our options. She will need to quit smoking and she is aware, she will work with her PCP for patches. She has a history of substance abuse, she has been clean for over 12 years and gets monthly injections. She also has a history of bipolar and has been hospitalized approximately 3 years ago. Since they have started Vraylar she has been very well controlled and has a new psychiatrist that she has been compliant with, both in [place] and now in [place] She will need 6 months of physician directed diet and exercise, all of her questions were answered to her satisfaction and we will move forward with the medical and cardiac risk stratification and insurance precertification process I met with her today to discuss risks and benefits of laparoscopic weight loss surgery, the risks and benefits are outlined as above and visual aids were used to describe the procedure. I personally performed the evaluation and management of Giovana Powell in the development of a treatment plan for this patient. I personally interviewed the patient and performed an individual physical examination. In addition, I discussed the patient's condition and treatment options with them. I have also reviewed and agree with the past medical, family and social history unless otherwise noted. All of the patient's questions were answered. I discussed/counseled the patient regarding the risks and benefits of surgery as well as the preoperative and postoperative care plan for this patient. The patient was seen and examined independently and relevant data reviewed by myself. A full chart review was performed. Due to the complexity of the patients condition as well as having at least one medical condition as listed above in medical history that is progressing despite medical management, this patient is considered high medical decision making and surgical intervention is necessary to help decrease the risk of continued chronic illness. The patient was seen and examined independently and relevant data reviewed by myself. A full chart review was performed. Patient Care Team: Leopoldo Baird as PCP - General Adelina Lin DO (Addiction Medicine) Dejah Drew APRN - RAT POISONER (Nurse Practitioner) Manjit Ga DO (Psychiatry) [facility] SURGICAL WEIGHT LOSS MANAGEMENT PROGRAM Rooming Note - INITIAL CONSULTATION Patient: Giovana Powell Date of : 1950 Service Date: 04/30/2023 Patient is here today to discuss the possibility of weight loss surgery. This patient is alone for the evaluation today she is interested in discussing weight loss surgery. Physician Supervised D/E: 6M Weight Metrics: Falls Risk Assessment Patient doestake medications which affect BP or mental status Patient does not have newly prescribed or changed dosage of medications within past 30 days which affect BP or mental status Patient has not fallen in the past 2 months Patient does demonstrate unsteady gait Patient uses the following ambulatory assistive devices: Rolling Walker Patient is low risk for falls. If high or moderate risk, patient instructed not to ambulate independently in the Center, and cord for call light placed within reach of patient. History of Difficult Intubation: No Patient is not on home O2 Completed by: Sonali Paez MA see TE created documented in this encounter [facility] 12-18-2022 History of Present illness Narrative Chief Complaint Patient presents with Follow Up For evaluation of mood Telehealth (Audio) SUBJECTIVE: Jacklyn Powell is a 72 year old female here for follow up visit for bipolar with psychotic features, DID, opiate use disorder, stimulant use disorder, grief, r/o PTSD, also has untreated sleep apnea and is on depakote for seizures, has history of toe-tapping, staring episodes, hand-shaking with vraylar, treated with: lamictal 200 mg qd Prazosin 3 mg qhs prn (Depakote 500 mg BID per neurology) vraylar 3 mg qd Melatonin 3 mg--not needing, sleeping well. Last visit, had mild depression, getting new psychiatrist closer to home. Reviewed pharmacy note, has appt. With new provider 01/08/23. Oarrs reviewd, still on sublocade. Jacklyn Powell engaged in a telehealth session via PHONE with this provider practicing within the [facility]. The identity of Jacklyn Abraham was verified by their date of , (1950), and last four digits of their social security number, ([id number]). Location is home. Consents to telehealth services. Client changed in -person visit to phone. The provider demonstrated that confidentially was preserved at their location. Jacklyn Abraham was informed that they were responsible for ensuring confidentially was secured at their location. Jacklyn Abraham's location was documented for emergency purposes. Jacklyn Abraham was informed of the necessary steps that would occur if an emergency was to occur or technology failed during session. Everything is going really well. Sleeping and eating well, mood stable, busy with congregational and groups. No hallucinations, still lost track of time a week ago, didn't remember she had texted a friend. No seizures. Just saw neurologist, he will do EEG and manage depakote. No more staring spells. No suicidal or violent thoughts. [employer] put in a walk-in shower. Interval Substance Use: Social History Substance and Sexual Activity Alcohol Use Never Social History Substance and Sexual Activity Drug Use Yes Comment: sublocade History Smoking Status Every Day Smokeless Tobacco Never ROS: General: negative Neurological: negative Psychiatric: negative Denies SI and Denies HI OBJECTIVE- Lab results (if available, otherwise dejah n/a): 11/17/2022 9:22 AM 11/17/2022 9:22 AM Final 11/17/2022 12:07 PM NA Facility: [facility] Specimen Source: NA Admitting Provider: Ordered Date: 11/17/2022 9:22 AM Body Site: NA Attending Provider: Leopoldo Baird Ordering Provider: Leopoldo Baird Patient Class: Ambulatory Test Result Reference Out Of Range Units Corrected/Cancelled WBC 8.8 4.4-11.0 K/mm3 RBC 4.14 4.2-5.4 Low M/mm3 HGB 12.5 12.0-15.0 g/dL HCT 39.6 37-47 MCV 95.7 81-99 fL MCH 30.2 27.0-32.0 pg MCHC 31.6 32-36 Low g/dL RDW CV 15.2 11.6-14.6 High RDW SD 53.1 35.1-43.9 High fl PLT 479 150-450 High K/mm3 MPV 9.1 6.2-12.0 fl NEUT% 69.5 47-70 LY% 20.3 19-41 MONO% 7.6 0-10 EO% 1.6 0-5 BASO% 0.3 0-1 IG% 0.700 0.0-0.9 Result Comments: IG% - Immature Granulocytes (promyelocytes, myelocytes and metamyelocytes) > 1% indicates that a LEFT SHIFT is Present. Absolute Neut 6.1 2.0-7.7 X10 3/uL Absolute Lymph 1.78 0.83-4.51 X10 3/uL NUCLEATED RBC 0 0-5 Performed By: [facility] [address] [place], [place], [id number] Basic Metabolic Profile (BMP) Date Collected Date Received Status Reported/Status Changed Priority 11/17/2022 9:22 AM 11/17/2022 9:22 AM Final 11/17/2022 12:32 PM NA Facility: [facility] Specimen Source: NA Admitting Provider: Ordered Date: 11/17/2022 9:22 AM Body Site: NA Attending Provider: Leopoldo Baird Ordering Provider: Leopoldo Baird Patient Class: Ambulatory Test Result Reference Out Of Range Units Corrected/Cancelled GLU 95 74-106 mg/dL BUN 12 7-18 mg/dL CREAT,SERUM 0.83 0.55-1.02 mg/dL Result Comments: The validity of the calculated GFR GFRAA in patients over 70 years has not been determined. Clinical correlation is essential. EST GFR 72 >60 mL/min Result Comments: Non- GFR Calc EST GFR - AA 87 >60 mL/min Result Comments: GFR Calc BUN/CRE 14.5 10-20 RATIO CA,Total 9.0 8.5-10.1 mg/dL NA 139 136-145 mmol/L Potassium 4.1 3.5-5.1 mmol/L CL 105 98-107 mmol/L CO2 29.0 21.0-32.0 mmol/L GAP 5 5-15 Performed By: [facility] [id number] [place], [address] Wt Readings from Last 3 Encounters: No data found for Wt Weight management: VITALS: No data to display There were no vitals taken for this visit. There is no height or weight on file to calculate BMI. MENTAL STATUS EXAM: Appearance: Appropriately dressed Demeanor/Activity: Cooperative and Engaged Psychomotor Activity: N/A Speech: Normal Volume Thought Process: Goal-Directed/Linear Orientation: Oriented Thought Content/Perception: No Abnormal Thought Content Mood: Euthymic Affect - Range: Full Affect - Other: Stable Behavior/Functioning: Calm and Pleasant Abnormal Movements: No Suicidal/Homicidal Thoughts: Denies suicidal thoughts and Denies homicidal thoughts Cognition: Intact Insight: Moderate insight Judgment: No impairment SAFETY RISK ASSESSMENT: Acute: Low risk of harm to self and/or others Chronic: Low risk of harm to self and/or others IMPRESSION: Jacklyn Powell is a 72 year old female presenting for follow up visit today, stable, has enough medication until her appt. 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 [x] Medication: Discussed risks, side effects, benefits and alternatives to prescribed medication: 2). Referrals/Psychotherapy follow up/Co-management with other providers [x] Primary care: [] [facility] [] Alcohol/Drug treatment: [x] Psychoeducation/Counseling [x] Other: -neurologist 3). [x] Emergency Contact Plan: Patient understands to call Mobile Crisis at [phone], call 911, or go to the nearest ER as appropriate in case of thoughts of harm to self or others, or acute onset of intolerable side effects. 4.) [x] Physician/MARBLE RUBBER Order: See PharmD , pecan gatherer to document data and make observations of the patient, including observations of physical and mental health symptoms, medication response, side effects and adherence, as well as education. RN will assess patient's health status, provide education with pill boxes and/or administer long-acting injections per orders. documented in this encounter [place] [email or web address] Work Phone: 12-02-2022 History of Present illness Narrative Jacklyn Powell engaged in a telehealth session via PHONE with this provider practicing within the [facility]. The identity of Natali was verified by their date of , (1950), and last four digits of their social security number, ([id number]). The provider demonstrated that confidentially was preserved at their location. Jacklyn Abraham was informed that they were responsible for ensuring confidentially was secured at their location. Jacklyn Abraham's location was documented for emergency purposes. Jacklyn Abraham was informed of the necessary steps that would occur if an emergency was to occur or technology failed during session. Patient presents today for refills. Regularly followed by Dr. Mccall, last seen on 11/18/2022, next appointment on 12/18/22. Medications requested (including LF date and OARRS as appropriate): -Vraylar 3mg capsule: 1C PO QD -Lamotrigine 200mg tablet: 1T PO HS -Melatonin 3mg tablet: 1T PO HS prn -Prazosin 1mg tablet: 3T PO HS -Called [facility] to verify it patient receiving medications, patient last got her medications in an adherence pack on 11/07/2022 (likely billed as keys so it won't show up in the dispense report) *Sublocade 100mg/0.5mL: OARRS LF 11/27/22 (prescribed by Adelina Lin DO in [place]) SUBJECTIVE: Spoke with this patient today for a refill appointment, patient has a PMH of bipolar disorder, DID, and severe linnea. She is switching care to a new psychiatrist closer to her home in [place], but her appointment is not until late December (01/08/23), patient should have adequate refills until that time, but may need one additional fill in case her appointment gets moved/canceled unexpectedly. She reports being a little depressed lately, rates as 5/10 (10 = worst), denies SI/HI; denies any risky behaviors, denies recent confusion or lost time. Sleep has been good, getting about 8 hours/night, not skipping nights of sleep, denies recent nightmares/bothersome dreams. Energy has been a bit lower than normal, but able to do exercises that her physical therapist gave her and feels stable walking (doesn't even need a cane anymore). Drinks 1-2 cups of coffee in the morning. Eats about 2 meals per day (normal per patient). Denies use of alcohol or illicit substances. Smokes about 1/2PPD of cigarettes, not interested in quitting at this time. Gets medications in adherence packaging via [facility] in [place]; denies recent missed doses. Medications: Current Outpatient Medications Medication Sig Dispense Refill cariprazine 3 mg cap Take 1 Capsule by mouth daily 30 Capsule 1 lamoTRIgine (LAMICTAL) 200 mg tablet Take 1 Tablet by mouth nightly at bedtime 30 Tablet 1 prazosin (MINIPRESS) 1 mg capsule TAKE 3 CAPSULES BY MOUTH AT BEDTIME NEEDED FOR NIGHTMARES 90 Capsule 1 melatonin 3 mg tablet Take 1 Tablet by mouth nightly at bedtime as needed for sleep 30 Tablet 1 buprenorphine 100 mg/0.5 mL slsy Buprenorphine (Sublocade) 100 mg/0.5 mL solution, extended rel syringe Active 100 MG SC EVERY MONTH August 07, 2021 12:09pm rosuvastatin (CRESTOR) 40 mg tablet Take 1 Tablet by mouth daily divalproex (DEPAKOTE ER) 500 mg 24 hr tablet Take 1,000 mg by mouth hydroCHLOROthiazide (HYDRODIURIL) 25 mg tablet Take 25 mg by mouth lisinopriL 40 mg tablet Take 40 mg by mouth metoprolol succinate (TOPROL-XL) 50 mg 24 hr tablet Take 50 mg by mouth pravastatin (PRAVACHOL) 40 mg tablet Take 40 mg by mouth No current facility-administered medications for this visit. ADHERENCE: adherent most of the time SIDE EFFECTS: none Allergies: Allergies Allergen Reactions Gadoxetate SOB MRI contrast MRI contrast Iloperidone Naproxen Hives Paliperidone Mood: A little depressed, rates depression 5/10, denies SI/HI; denies risky behaviors/concerns for linnea SLEEP: Gets 8 hours of sleep per night APPETITE: eats about 2 meals per day (normal) EXERCISE: goes through PT exercises, feels steady on feet (no walker/cane) Alcohol Use? No Illegal Drug Use? No Smoking Cessation: Ready to quit: Not Answered Counseling given: Not Answered Tobacco comments: half a pack daily, smoked since 37 Caffeine intake? Yes. 1-2 cups of coffee per day PCP: In [place] Pharmacy: [facility] in [place] Vaccinations: Received annual flu on 08/27/22; no evidence of COVID Vaccines or Shingrix ASSESSMENT/PLAN: Routed orders to Dr. Mccall for coverage until patient sees new provider (01/08/23), in case prospective appointment gets cancelled/moved prior to patient being seen. Patient is to be re-evaluated for mood at next appointment on 12/18/22 with . Provided education to client regarding medication and its benefits, actions, effects and side effects. Medications and allergies are up to date in EPIC. Patient verbalizes understanding and denies any further questions or concerns. Completed by Tova Bates PharmD documented in this encounter [place] [email or web address] Work Phone: 09-02-2021 Miscellaneous Notes CD / reports READY FOR SENIOR SYSTEMS ARCHITECT AT [facility] [place] [place] [facility] Patient wants a copy of the xray from 08/29/2021 and report. Patient will car pick up driver on Thursday. Thank you, Blanche documented in this encounter [facility] 08-29-2021 Note HNO ID: [id number] Author: Nory Hutchinson APRN.RAT POISONER Service: ? Author Type: Nurse Practitioner Type: Procedures Filed: 08/29/2021 6:43 PM Note Text: ED PROCEDURE NOTE: Splinting The risks, benefits, alternatives, and personnel discussed with patient or call center representative who consents to the procedure. The fracture was assessed. The neurovascular exam shows intact distal motor, intact distal sensation, normal distal pulses and normal distal cap refill. The area to splint was appropriately positioned. A volar dorsal was applied related to swelling and patient tolerance . The splinted body part was intervascularly unchanged following the procedure. The patient tolerated the procedure well.. The patient was managed with no additional personell Nory Hutchinson APRN.RAT POISONER [facility] 08-29-2021 Note HNO ID: [id number] Author: RT Desean(R) Service: Nuclear Medicine Author Type: Technologist Type: Progress Notes Filed: 08/29/2021 5:49 PM Note Text: Radiology Service Progress Note PATIENT NAME: Giovana Powell DATE OF SERVICE: August 29, 2021 TIME: 5:27 PM PATIENT IDENTITY VERIFICATION COMPLETED USING TWO (2) IDENTIFIERS: Name and Date of confirmed by patient verbally. FALL SCREENING: Has the patient had 2 falls in the last year or 1 fall with injury or currently using an Ambulatory Assistive Device (Walker, Cane, Wheelchair, Crutches, etc.)? No PATIENT GENDER DATA: Female. status: : No status: NO. PATIENT RELEVANT IMPLANT DATA REVIEWED: Not Applicable RADIOLOGY DEPARTMENT: General X-ray: Exam(s) Completed: Upper Extremity X-Ray(s): Humerus, left , Wrist, left and Hand, left PERIPHERAL IV DATA: Not applicable SIGNED BY: Lilly Thompson, RT(R) August 29, 2021 5:27 PM [facility] 08-29-2021 Note HNO ID: [id number] Author: Nory Hutchinson APRN.RAT POISONER Service: ? Author Type: Nurse Practitioner Type: Progress Notes Filed: 08/29/2021 6:43 PM Note Text: This note was created using [employer]. Subjective Giovana Powell is a 71 year old female. 71 year old female with PMH epilepsy, HTN, COPD, acid reflux presents with injuries s/p fall. Acute onset around 1430 [address] on curb and while falling placed her left extremity out to break fall Pain in left wrist. Pain in left hip and pain in left upper arm. Denies LOC. Denies head trauma. Denies neck or back pain. Denies blood thinners. Denies that she was down for extended time, citing that she had assistance in getting up. Denies break in skin integrity. Denies numbness or tingling. The history is provided by the patient. No clean up supervisor was used. Fall The accident occurred 3 to 5 hours ago. The fall occurred while walking. She fell from a height of 3 to 5 ft. She landed on concrete. There was no blood loss. Point of impact: left hip and left upper extremity. Pain location: left wrist. The pain is at a severity of 5/10. The pain is moderate. She was ambulatory at the scene. There was no entrapment after the fall. There was no drug use involved in the accident. There was no alcohol use involved in the accident. Pertinent negatives include no visual change, no fever, no numbness, no abdominal pain, no bowel incontinence, no nausea, no vomiting, no hematuria, no headaches, no hearing loss, no loss of consciousness and no tingling. The symptoms are aggravated by activity. She has tried nothing for the symptoms. The treatment provided no relief. 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 PAST SURGICAL HISTORY Procedure Laterality Date - DELIVERY ONLY Times 3 - COLONOSCOP W/ OR W/O [facility] SPEC 06/27/11 - COLONOSCOP W/ OR W/O [facility] SPEC 11/24/14 poor prep -5 year follow up - EGD W/O OR W/BRUSH/WASH N/A 01/22/2017 - LAP CHOLECYSTECT/CHOLANGIOGRAPHY 03/14/2018 - LAP HERNIA REPAIR W/MESH 1997 - TOTAL ABDOM HYSTERECTOMY 1997 Hysterectomy, one ovary left in ALLERGIES Eovist [Gadoxetate], Naprosyn [Naproxen], and Slow-Bid [Other] MEDICATIONS buprenorphine ER (SUBLOCADE) 100 mg/0.5 mL injection Buprenorphine (Sublocade) 100 mg/0.5 mL solution, extended rel syringe Active 100 MG SC EVERY MONTH August 07, 2021 12:09pm VRAYLAR 3 mg capsule Take 1 capsule by mouth once daily. hydroCHLOROthiazide (HYDRODIURIL, ESIDRIX) 25 mg tablet Take 1 tablet by mouth once daily. lamoTRIgine (LAMICTAL) 200 mg tablet Take 1 tablet by mouth once daily. metoprolol succinate ER (TOPROL XL) 50 mg 24 hr tablet Take 1 tablet by mouth once daily. omeprazole (PRILOSEC) 40 mg capsule Take 1 capsule by mouth once daily. prazosin (MINIPRESS) 1 mg cap Take 1 capsule by mouth three times daily. rosuvastatin (CRESTOR) 40 mg tablet Take 1 tablet by mouth once daily. rOPINIRole (REQUIP) 0.25 mg tablet Take 1 tablet by mouth once daily. lisinopril (ZESTRIL, PRINIVIL) 20 mg tablet TAKE 1 TABLET DAILY cloNIDine HCl (CATAPRES) 0.1 mg tablet TAKE 1 TABLET THREE TIMES A DAY camphor-menthol (SARNA) lotion Apply 1 application to affected area as needed. pantoprazole DR (PROTONIX) 20 mg tablet Take 1 tablet by mouth daily before breakfast. Take on empty stomach, 1/2 hr before meal. cyanocobalamin (VITAMIN B-12) 500 mcg tab Take 2 tablets by mouth once daily. cholecalciferol, Vitamin D3, (VITAMIN D3) 50,000 unit cap capsule Take 1 capsule by mouth once each week. ibuprofen (MOTRIN) 200 mg tablet Take 1 tablet by mouth every 6 hours as needed for Pain (Take with food.). budesonide-formoterol (SYMBICORT) 160-4.5 mcg/actuation inhaler Inhale 2 Puffs as instructed twice daily. albuterol HFA (PROAIR HFA) 90 mcg/actuation inhaler Inhale 2 Puffs as instructed every 4 hours as needed for Wheezing/Shortness of Breath. divalproex DR (DEPAKOTE) 500 mg EC tablet Take 500 mg by mouth twice daily. sucralfate (CARAFATE) 1 gram tablet TAKE 1 TABLET BY MOUTH FOUR TIMES A DAY Food Supplement, Lactose-Free (ENSURE) liqd Drink a 8 oz bottle, up to six times each day. sucralfate (CARAFATE) 100 mg/mL suspension Take 10 mL by mouth before meals and at bedtime. Try to wait 30 minutes before eating. oxybutynin ER (DITROPAN XL) 15 mg 24 hr Extended Rel Tab TAKE 1 TABLET BY MOUTH ONCE DAILY. pramipexole (MIRAPEX) 1 mg tablet Take 1 tablet by mouth three times daily. aspirin, enteric coated (ASPIRIN, ENTERIC COATED) 81 mg EC tablet Take 1 (more content not included)... [facility] documented as of this encounter (statuses as of 04/16/2022) [facility] note* Diagnosis Bipolar disorder with psychotic features ([facility])- Primary Dissociative identity disorder ([facility]) Dissociative identity disorder documented in this encounter [facility] Work Phone: Evaluation note* Diagnosis Bipolar disorder with psychotic features ([facility])- Primary Dissociative identity disorder ([facility]) Dissociative identity disorder Opioid use disorder, moderate, on maintenance therapy ([facility]) documented in this encounter [facility] Work Phone: Evaluation note* Diagnosis Tobacco use disorder- Primary Primary hypertension Unspecified essential hypertension Prediabetes Other abnormal glucose Morbid obesity with BMI of 40.0-44.9, adult ([facility]) JENNIFER (obstructive sleep apnea) Obstructive sleep apnea (adult) (pediatric) High cholesterol Pure hypercholesterolemia History of substance abuse ([facility]) ([facility]) Other, mixed, or unspecified nondependent drug abuse, unspecified [facility] Diagnosis Chronic obstructive pulmonary disease, unspecified COPD type (HCC)- Primary Primary hypertension Unspecified essential hypertension Gastroesophageal reflux disease, unspecified whether esophagitis present Tobacco use disorder JENNIFER (obstructive sleep apnea) Obstructive sleep apnea (adult) (pediatric) High cholesterol Pure hypercholesterolemia Morbid obesity with BMI of 40.0-44.9, adult (HCC) Functional dyspepsia Dyspepsia and other specified disorders of function of stomach [facility]* Diagnosis Morbid obesity due to excess calories (HCC)- Primary Hypertension, unspecified type Functional dyspepsia Dyspepsia and other specified disorders of function of stomach [facility]* Diagnosis Prediabetes- Primary Other abnormal glucose Gastroesophageal reflux disease, unspecified whether esophagitis present Functional dyspepsia Dyspepsia and other specified disorders of function of stomach [facility]* Diagnosis GERD (gastroesophageal reflux disease)- Primary Esophageal reflux Functional dyspepsia Dyspepsia and other specified disorders of function of stomach Morbid obesity with BMI of 40.0-44.9, adult ([facility]) Chronic superficial gastritis without bleeding JENNIFER (obstructive sleep apnea) Obstructive sleep apnea (adult) (pediatric) documented in [facility] encounter [facility]* Diagnosis BMI 40.0-44.9, adult (HCC)- Primary Gastroesophageal reflux disease, unspecified whether esophagitis present Class 3 severe obesity with serious comorbidity and body mass index (BMI) of 40.0 to 44.9 in adult, unspecified obesity type ([facility]) documented [facility]* Diagnosis Chronic obstructive pulmonary disease, unspecified COPD type (HCC)- Primary Encounter for pre-operative respiratory clearance JENNIFER (obstructive sleep apnea) Obstructive sleep apnea (adult) (pediatric) Smoker Tobacco use disorder Morbid obesity (HCC) Morbid obesity documented [facility]* Diagnosis Morbid obesity due to excess calories (HCC)- Primary Hypertension, unspecified type documented [facility]* Diagnosis Chronic obstructive pulmonary disease, unspecified COPD type (HCC)- Primary Primary hypertension Unspecified essential hypertension Gastroesophageal reflux disease, unspecified whether esophagitis present Tobacco use disorder JENNIFER (obstructive sleep apnea) Obstructive sleep apnea (adult) (pediatric) High cholesterol Pure hypercholesterolemia Morbid obesity with BMI of 40.0-44.9, adult ([facility]) [facility]* Diagnosis Morbid obesity due to excess calories (HCC)- Primary Hypertension, unspecified type documented in this encounter [facility] note* Diagnosis Vitamin D deficiency- Primary Low vitamin B12 level High blood magnesium level Disorders of magnesium metabolism documented in this encounter [facility] note* Diagnosis Morbid obesity due to excess calories (HCC)- Primary Hypertension, unspecified type documented in this encounter [facility] note* Diagnosis Chronic obstructive pulmonary disease, unspecified COPD type (HCC)- Primary Primary hypertension Unspecified essential hypertension Gastroesophageal reflux disease, unspecified whether esophagitis present Tobacco use disorder JENNIFER (obstructive sleep apnea) Obstructive sleep apnea (adult) (pediatric) High cholesterol Pure hypercholesterolemia Morbid obesity with BMI of 40.0-44.9, adult (HCC) documented in this encounter [facility] note* Diagnosis Prediabetes- Primary Other abnormal glucose Gastroesophageal reflux disease, unspecified whether esophagitis present documented in this encounter [facility] note* Diagnosis Morbid obesity due to excess calories (HCC)- Primary Hypertension, unspecified type documented in this encounter [facility] note* Diagnosis Chronic obstructive pulmonary disease, unspecified COPD type (HCC)- Primary Primary hypertension Unspecified essential hypertension Gastroesophageal reflux disease, unspecified whether esophagitis present Tobacco use disorder JENNIFER (obstructive sleep apnea) Obstructive sleep apnea (adult) (pediatric) High cholesterol Pure hypercholesterolemia Morbid obesity with BMI of 40.0-44.9, adult (HCC) documented in this encounter [facility] Discharge instructions* Attachments The following attachments cannot be sent through Care Everywhere. * Upper GI Endoscopy Dis[facility] Inst[facility] Consultation (Routine) - Pending Review Specialty Diagnoses / Procedures Referred By Kori kirkpatrick Referred To Contact Pulmonary Disease / Pulmonology Diagnoses Chronic obstructive pulmonary disease, unspecified COPD type (HCC) Tobacco use disorder JENNIFER (obstructive sleep apnea) Morbid obesity with BMI of 40.0-44.9, adult (HCC) Procedures [place] OFFICE/OUTPATIENT [facility] 60-74 MINUTES Brett Bernal PA [address] [place] [address] [facility] [address] [place] [address] Referral ID Status Reason Start Date Expiration Date Visits Requested Visits Authorized [id number] Pending Review Specialty Services Required 05/13/2023 05/12/2024 1 1 * Consultation (Elective) - Pending Review Specialty Diagnoses / Procedures Referred By Contac t Referred To Contact Cardiology Diagnoses Chronic obstructive pulmonary disease, unspecified COPD type (HCC) Primary hypertension Tobacco use disorder JENNIFER (obstructive sleep apnea) Morbid obesity with BMI of 40.0-44.9, adult (HCC) Procedures NH OFFICE/OUTPATIENT NEW HIGH MDM 60-74 MINUTES Brett Bernal PA [address] [place] [address] [facility] [address] [place] [address] Referral ID Status Reason Start Date Expiration Date Visits Requested Visits Authorized [id number] Pending Review Specialty Services Required 05/13/2023 05/12/2024 1 1 [facility] Summary Purpose Family History No Family History Records Found Mother Name Dates Details Family history of Alive and well Status:Active Father Name Dates Details Family history of Alive and well Status:Active Brother Name Dates Details Family history of malignant neoplasm of colon(V16.0, Z80.0) Status:Active Advance Directives No Advanced Directives Records FoundDocuments on File Type Date Recorded Patient Assembler For Puller Over Hand Expl anation Advance Directive(s) 01/22/2017 9:46 AM Latest Code Status on File Code Status Date Activated Date Inactivated Comments Full Code 06/16/2023 8:07 AM 06/16/2023 5:24 PM Latest Code Status on File Code Status Date Activated Date Inactivated Comments Full Code 06/16/2023 8:07 AM 06/16/2023 5:24 PM Health Concerns Assessment Noted Time PHQ-9 Depression Total Score: 3 01/16/20 21 10:13 AM PDT Reason for Referral Specialty Diagnoses / Procedures Referred By Contac t Referred To Contact Diagnoses Chronic obstructive pulmonary disease, unspecified COPD type (HCC) Procedures Spirometry Kenzie Paul MD [address] [place] [address] Referral ID Status Reason Start Date Expiration Date V isits Requested Visits Authorized [id number] Incomplete 06/25/2023 12/22/2023 1 1 Specialty Diagnoses / Procedures Referred By Contac t Referred To Contact Kareem Hartmann MD [address] [place] [address] Referral ID Status Reason Start Date Expiration Date V isits Requested Visits Authorized [id number] Pending Review 1 1 Referral ID Status Reason Start Date Expiration Date V isits Requested Visits Authorized [id number] Pending Review 1 1 Referral ID Status Reason Start Date Expiration Date V isits Requested Visits Authorized [id number] Authorized 1 1 Referral ID Status Reason Start Date Expiration Date Visits Re quested Visits Authorized [id number] Closed 1 1 Additional Source Comments INFORMATION SOURCE (unrecogn ized section and content) DATE CREATED AUTHOR AUTHOR'S ORGANIZ ATION 01/04/2019 [facility] DATE CREATED AUTHOR AUTHOR'S ORGANIZ ATION 02/19/2019 [facility] DATE CREATED AUTHOR AUTHOR'S ORGANIZ ATION 10/04/2020 [facility] DATE CREATED AUTHOR AUTHOR'S ORGANIZ ATION 12/12/2020 [facility] DATE CREATED AUTHOR AUTHOR'S ORGANIZ ATION 04/17/2022 [facility] DATE CREATED AUTHOR AUTHOR'S ORGANIZ ATION 10/06/2023 [facility] Source Comments (unrecognize d section and content) In the event this informatio n is protected by the Federal Confidentiality of Alcohol and Drug Abuse Patient Records regulations: The Federal rules restrict any use of the information to criminally investigate or prosecute any alcohol or drug abuse patient.[facility] Reason for Visit (unrecogniz ed section and content) Reason Comments Medication Management Telehealth (Audio) Follow Up Reason Comments Follow Up For evaluation of mo od Telehealth (Audio) Reason Comments Surgical Consult New Surg Specialty Diagnoses / Procedures Referred By Kori kirkpatrick Referred To Contact Bariatric Surgery / Bariatrics Diagnoses Obesity, unspecified Procedures Dejah Heck, MARBLE RUBBER - RAT POISONER [address] [place] [address] [facility] [address] [place] [address] Referral ID Status Reason Start Date Expiration Date V isits Requested Visits Authorized [id number] Pending Review 03/17/2023 03/16/2024 1 1 Reason Onset Date Comments Financial File 04/30/2023 Financial File 2 023 Surgery Scheduling 04/30/2023 Initial Sched uling - Orders Pended Reason Onset Date Comments Financial File 04/30/2023 Financial File 2 023 Surgery Scheduling 04/30/2023 Initial Sched uling - Orders Pended Reason Comments Weight Loss NEW D/E 1 of 6 Reason Comments Nutrition Counseling BNA Specialty Diagnoses / Procedures Referred By Kori kirkpatrick Referred To Contact Diagnoses Functional dyspepsia Functional dyspepsia [K30] Procedures [place] EGD TRANSORAL BIOPSY SINGLE/MULTIPLE EGD WITH BIOPSY Susie Ledezma MD [address] [place] [address] [address] [place] [address] Referral ID Status Reason Start Date Expiration Date Visits Re quested Visits Authorized [id number] 1 1 Reason Comments Weight Loss D/E 2 of 6 Reason Comments New Patient Reason Comments Weight Loss D/E 3/6 Reason Onset Date Comments OTHER 07/09/2023 Reason Comments Weight Loss D/E 3/6 Reason Onset Date Comments Abnormal Lab 07/09/2023 Low Vitamin D; L ow normal Vitamin B12 and elevated Magnesium Reason Comments Nutrition Counseling BNA other Reason Comments Weight Loss D/E 4 of 6 Reason Comments Weight Loss Nsurg #1 Reason Onset Date Comments program withdrawal 09/21/2023 Reason Onset Date Comments Med Refill 09/28/2023 Care Teams (unrecognized sec tion and content) Senior Ruby Developer Relationship Specialty Start Date End Date Leopoldo Baird [address] [place], [place] [address] PCP - General 12/05/20 Adelina Lin DO [address] [place] [address] Addiction Medicine 04/30/23 Dejah Drew MARBLE RUBBER - RAT POISONER [address] [place] [address] Nurse Practitioner 04/30/23 Manjit Ga DO [address] [place] [address] Psychiatry 04/30/23 Senior Ruby Developer Relationship Specialty Start Date End Date Leopoldo Baird [address] [place], [place] [address] PCP - General 12/05/20 Adelina Lin DO [address] [place] [address] Addiction Medicine 04/30/23 Dejah Drew MARBLE RUBBER - RAT POISONER [address] [place] [address] Nurse Practitioner 04/30/23 Manjit Ga DO [address] [place] [address] Psychiatry 04/30/23 Susie Ledezma MD [address] [place] [address] [address] [place] [address] Surgeon General Surgery 05/11/23 Senior Ruby Developer Relationship Specialty Start Date End Date Leopoldo Baird [address] [place] [place], [place] [address] PCP - General 12/05/20 Adelina Lin DO [address] [place] [address] Addiction Medicine 04/30/23 Dejah Drew APRN - RAT POISONER [address] [place] [address] Nurse Practitioner 04/30/23 Manjit Ga DO [address] [place] [address] Psychiatry 04/30/23 Susie Ldeezma MD [address] [place] [address] [address] [place], [place] [id number] Surgeon General Surgery 05/11/23 Senior Ruby Developer Relationship Specialty Start Date End Date Leopoldo Baird [address] [facility] [address] [place] [phone] PCP - General Internal Medicine 06/03/23 Adelina Lin DO [address] [place] [phone] Addiction Medicine 04/30/23 Dejah Drew APRN - CNP [address] [place] [phone] Nurse Practitioner 04/30/23 Manjit Ga DO [address] [place] [address] Psychiatry 04/30/23 Susie Ledezma MD [address] [place] [address] Street [address] [place], [place] [id number] Surgeon General Surgery 05/11/23 Senior Ruby Developer Relationship Specialty Start Date End Date Leopoldo Baird [address] [facility] [address] [place] [address] PCP - General Internal Medicine 06/03/23 Adelina Lin DO [address] [place] [address] Addiction Medicine 04/30/23 Dejah Drew APRN - RAT POISONER [address] [place] [address] Nurse Practitioner 04/30/23 Manjit Ga DO [address] [place] [address] Psychiatry 04/30/23 Susie Ledezma MD [address] [place] [address] Surgeon General Surgery 05/11/23 Senior Ruby Developer Relationship Specialty Start Date End Date Leopoldo Baird [address] [facility] [address] [place] [address] PCP - General Internal Medicine 06/03/23 Adelina Lin DO [address] [place] [address] Addiction Medicine 04/30/23 Dejah Drew APRN - RAT POISONER [address] [facility] [address] [place] [phone] Nurse Practitioner 04/30/23 Manjit Ga DO [address] [place] [address] Psychiatry 04/30/23 Susie Ledezma MD [address] [facility] [address] [place] [address] Surgeon General Surgery 05/11/23 Senior Ruby Developer Relationship Specialty Start Date End Date Leopoldo Baird [address] [facility] [address] [place] [address] PCP - General Internal Medicine 06/03/23 Adelina Lin DO [address] [place] [address] Addiction Medicine 04/30/23 Dejah Drew APRN - RAT POISONER [address] [place] [address] [address] [place] [address] Nurse Practitioner 04/30/23 Manjit Ga DO [facility] [place] [address] Psychiatry 04/30/23 Susie Ledezma MD [address] [place] [address] [address] [place] [address] Surgeon General Surgery 05/11/23 Senior Ruby Developer Relationship Specialty Start Date End Date AlvinohaileyVitaliymiramanda Saldana [address] [facility] [address] [place] [address] PCP - General Internal Medicine 06/03/23 Adelina Lin DO [address] [place] [address] Addiction Medicine 04/30/23 Dejah Drew APRN - RAT POISONER [address] [place] [address] [address] [place] [address] Nurse Practitioner 04/30/23 Manjit Ga DO [address] [place] [address] Psychiatry 04/30/23 Susie Ledemza MD [address] [place] [address] [address] [place], [place] [id number] Surgeon General Surgery 05/11/23 Senior Ruby Developer Relationship Specialty Start Date End Date Leopoldo Baird [address] [facility] [address] [place] [address] PCP - General Internal Medicine 06/03/23 Adelina Lin DO [address] [place] [address] Addiction Medicine 04/30/23 Dejah Drew APRN - PATRICIO [address] [place] [address] Nurse Practitioner 04/30/23 Manjit Ga DO [address] [place] [address] Psychiatry 04/30/23 Susie Ledezma MD [address] [place] [address] [address] [place] [address] Surgeon General Surgery 05/11/23 Senior Ruby Developer Relationship Specialty Start Date End Date Leopoldo Baird PCP - General 12/05/20 06/02/23 Leopoldo Baird [address] [facility] [address] [place] [address] PCP - General Internal Medicine 06/03/23 Adelina Lin DO [address] [place] [address] Addiction Medicine 04/30/23 Dejah Drew APRN - RAT POISONER [address] [place] [address] Nurse Practitioner 04/30/23 Manjit Ga DO [address] [place] [address] Psychiatry 04/30/23 Susie Ledezma MD [address] [place] [address] [address] [place], [place] [id number] Surgeon General Surgery 05/11/23 Senior Ruby Developer Relationship Specialty Start Date End Date Leopoldo Baird [address] [place] [address] PCP - General Internal Medicine 06/03/23 Adelina Lin DO [address] [place] [address] Addiction Medicine 04/30/23 Dejah Drew APRN - RAT POISONER [address] [place] [address] Nurse Practitioner 04/30/23 Manjit Ga DO [address] [place] [address] Psychiatry 04/30/23 Susie Ledezma MD [address] [place], [place] [id number] Surgeon General Surgery 05/11/23 Senior Ruby Developer Relationship Specialty Start Date End Date Nichole Bairdamanda Les [address] [facility] [address] [place] [address] PCP - General Internal Medicine 06/03/23 Adelina Lin DO [address] [place] [address] Addiction Medicine 04/30/23 Dejah Drew APRN - RAT POISONER [address] [facility] [address] [place] [address] Nurse Practitioner 04/30/23 Manjit Ga DO [address] [place] [address] Psychiatry 04/30/23 Susie Ledezma MD [address] [place] [address] [address] [place] [address] Surgeon General Surgery 05/11/23 Senior Ruby Developer Relationship Specialty Start Date End Date Leopoldo Baird [address] [facility] [address] [place] [address] PCP - General Internal Medicine 06/03/23 Adelina Lin DO [address] [place] [address] Addiction Medicine 04/30/23 Dejah Drew APRN - RAT POISONER [address] [facility] [address] [place] [address] Nurse Practitioner 04/30/23 Manjit Ga DO [address] [place] [address] Psychiatry 04/30/23 Susie Ledezma MD [address] [place] [address] [address] [place] [address] Surgeon General Surgery 05/11/23 Senior Ruby Developer Relationship Specialty Start Date End Date AlvinoNichole hartamanda Saldana [address] [place] [address] PCP - General Internal Medicine 06/03/23 Adelina Lin DO [address] [place] [address] Addiction Medicine 04/30/23 Dejah Drew APRN - RAT POISONER [address] [place] [address] [address] [place] [address] Nurse Practitioner 04/30/23 Manjit Ga DO [address] [place] [address] Psychiatry 04/30/23 Susie Ledezma MD [address] [place] [address] [address] [place] [address] Surgeon General Surgery 05/11/23 Senior Ruby Developer Relationship Specialty Start Date End Date AlvinoangeliVitaliy perezhughkadie Saldana [address] [facility] [address] [place] [address] PCP - General Internal Medicine 06/03/23 Adelina Lin DO [address] [place] [phone] Addiction Medicine 04/30/23 Dejah Drew APRN - RAT POISONER [address] [place] [address] [address] [place] [address] Nurse Practitioner 04/30/23 Manjit Ga DO [address] [place] [address] Psychiatry 04/30/23 Susie Ledezma MD [address] [place] [address] [address] [place] [address] Surgeon General Surgery 05/11/23 Senior Ruby Developer Relationship Specialty Start Date End Date Leopoldo Baird PCP - General 12/05/20 06/02/23 Leopoldo Baird [address] [facility] [address] [place] [address] PCP - General Internal Medicine 06/03/23 Adelina Lin DO [address] [place] [address] Addiction Medicine 04/30/23 Dejah Drew APRN - CNP [address] [facility] [address] [place] [address] Nurse Practitioner 04/30/23 Manjit Ga DO [address] [place] [address] Psychiatry 04/30/23 Susie Ledezma MD [address] [place] [address] [address] [place] [address] Surgeon General Surgery 05/11/23 Senior Ruby Developer Relationship Specialty Start Date End Date Leopoldo Baird [address] [facility] [address] [place] [address] PCP - General Internal Medicine 06/03/23 Adelina Lin DO [address] [place] [phone] Addiction Medicine 04/30/23 Dejah Drew APRN - RAT POISONER [address] [place] [address] Nurse Practitioner 04/30/23 Manjit Ga DO [address] [place] [address] Psychiatry 04/30/23 Susie Ledezma MD [address] [place] [address] [address] [place], [place] [id number] Surgeon General Surgery 05/11/23 Senior Ruby Developer Relationship Specialty Start Date End Date Leopoldo Baird [address] [place] [address] PCP - General Internal Medicine 06/03/23 Adelina Lin DO [address] [place] [address] Addiction Medicine 04/30/23 Dejah Drew MARBLE RUBBER - RAT POISONER [address] [place] [address] Nurse Practitioner 04/30/23 Manjit Ga DO [address] [place] [address] Psychiatry 04/30/23 Susie Ledezma MD [address] [place] [address] [address] [place], [place] [id number] Surgeon General Surgery 05/11/23 Senior Ruby Developer Relationship Specialty Start Date End Date Leopoldo Baird PCP - General 12/05/20 06/02/23 AlvinohaileyLeopoldo [address] [facility] [address] [place] [phone] PCP - General Internal Medicine 06/03/23 Adelina Lin DO [address] [place] [phone] Addiction Medicine 04/30/23 Dejah Drew APRN - CNP [address] [facility] [address] [place] [phone] Nurse Practitioner 04/30/23 Manjit Ga DO [address] [place] [address] Psychiatry 04/30/23 Susie Ledezma MD [address] [place] [address] [address] [place] [address] Surgeon General Surgery 05/11/23 Continuous Active and Recently Administ ered Medications (unrecognized section and content) FOR RECORDS PERTAINING TO PATIENTS WHO ARE OR HAVE BEEN ENROLLED IN A CHEMICAL DEPENDENCY/SUBSTANCEABUSE PROGRAM, SOME INFORMATION MAY BE OMITTED. This clinical summary was aggregated from multiple sources. Caution should be exercised in using it in the provision of clinical care. This summary normalizes information from multiple sources, and as a consequence, information in this document may materially change the coding, format and clinical context of patient data. In addition, data may be omitted in some cases. CLINICAL DECISIONS SHOULD BE BASED ON THE PRIMARY CLINICAL RECORDS. [employer] provides no warranty or guarantee of the accuracy or completeness of information in this document.
[2023-10-10 01:53] LABS: Absolute Lymphocyte Count 1.38 X10^3/uL (0.83-4.51); Absolute Neutrophil Count 14.3 X10^3/uL (2.0-7.7); Basophil# 0.05 X10^3/uL; Basophil% 0.3 % (0-1); Eosinophil# 0.03 X10^3/uL; Eosinophils% 0.2 % (0-5); Hematocrit 36.3 % (37-47); Hemoglobin 12.5 g/dL (12.0-15.0); Lymphocyte # 1.38 X10^3/ul (0.83-4.51); Mean Corp Hgb Conc 34.4 g/dL (32-36); Mean Corpuscular Hgb 30.9 pg (27.0-32.0); Mean Corpuscular Volume 89.6 fL (81-99); Mean Platelet Vol. 8.9 fl (6.2-12.0); Monocyte# 1.38 X10^3/uL; NRBC Flagged by Analyzer 0 % (0-5); Neutrophil # 14.32 X10^3/uL (2.7-7.7); Neutrophil % 82.5 % (47-70); Platelet Count 478 K/mm3 (150-450); RBC Distribution Width CV 13.6 % (11.6-14.6); RBC Distribution Width SD 44.6 fl (35.1-43.9); Red Blood Count 4.05 M/mm3 (4.2-5.4); White Blood Count 17.3 K/mm3 (4.4-11.0)
[2023-10-10 02:10] LABS: Valproic Acid (Depakene) Level 95 ug/mL (50-100)
[2023-10-10 02:12] LABS: AST(SGOT) 19 U/L (15-37); Alanine Aminotransfer ALT/SGPT 22 U/L (13-56); Albumin, Serum 3.2 g/dL (3.2-5.0); Alkaline Phosphatase 91 U/L (45-117); Anion Gap 10 (5-15); BUN 12 mg/dL (7-18); Calcium,Total 8.3 mg/dL (8.5-10.1); Chloride 89 mmol/L (98-107); Creatinine, Serum 0.86 mg/dL (0.55-1.02); EST Glomerular Filtration Rate 69 mL/min (>60); Est Glom Filt Rate - Afr Amer 84 mL/min (>60); Globulin 3.1 g/dL (2.2-4.2); Glucose 102 mg/dL (74-106); Potassium 3.9 mmol/L (3.5-5.1); Protein, Total 6.3 g/dL (6.4-8.2); Sodium Level 124 mmol/L (136-145); Troponin-I HS 19 pg/mL (3.0-54.0)
[2023-10-10 02:17] LABS: Mucous, Urine 0 SEEN /hpf (<or=2+)
[2023-10-10 02:20] LABS: Color, Urine Yellow (Yellow); Glucose, Dipstick Normal (Normal); Ketone-Dipstick 15 mg/dl (Negative); Leukocyte Esterase-Dipstick 500 /ul (Negative); Nitrite-Dipstick Positive (Negative); Occult Blood-Urine 50 /ul (Negative); Protein-Dipstick 30 mg/dl (Negative); Specific Gravity, Urine 1.005 (1.002-1.030); Urine Bilirubin Dipstick Negative (Negative); Urine Clarity Clear (Clear); Urine Urobilinogen Normal (Normal); Urine pH 6.5 (5.0 - 8.0)
[2023-10-10 02:27] LABS: Bacteria 3+ /hpf (None Seen); Red Blood Cells-Urine 0-5 SEEN /hpf (0-5); Squamous Epithelial Cells - UA 0-5 SEEN /hpf (5-10); White Blood Cells 10-25 SEEN /hpf (0-5)
--- NOTE | 2023-10-10 02:30 | RAD_ITS ---
EXAM: XR CHEST, 2 VIEWS CLINICAL INDICATION: Confusion TECHNIQUE: Frontal and lateral views of the chest. COMPARISON: Single view chest 09/27/2023 FINDINGS: LUNGS AND PLEURAL SPACES: Unremarkable. No consolidation or edema. No pneumothorax. No effusion. HEART: Unremarkable. Cardiac silhouette not enlarged. MEDIASTINUM: Central airways and mediastinal contour are unremarkable. BONES/JOINTS: Degenerative changes of the spine. No acute fracture. SOFT TISSUES: Unremarkable. RAD/Chest PA and Lateral IMPRESSION: No acute findings in the chest. Electronically Signed: Bradford Wellington MD at 3:15 EST ,
[2023-10-10 02:41] LABS: Lactic Acid 0.8 mmol/L (0.4-1.9)
[2023-10-10] MEDS: Ceftriaxone 1 GM/50 ML BAG IV ×2 (03:42→21:06)
--- NOTE | 2023-10-10 04:21 | PCM.HP.STD ---
[facility] - General General Date of Admission: 10/10/23 Date of Service: 10/10/23 Chief Complaint: Confusion and malaise HPI Narrative ALEXIA POWELL, is a 73 F with a past medical history of essential hypertension, hyperlipidemia, morbid obesity; with BMI 45.3 this admission, diabetes mellitus type 2; of unknown control, history of seizure disorder; on divalproex, history of basal cell carcinoma, history of actinic keratoses, remote history of tobacco abuse (quit 20 years ago) overactive bladder, chronic venous insufficiency in the bilateral lower extremities, chronic anemia, dissociative identity disorder, bipolar disorder, RA, osteoarthritis; with chronic back pain and frequent UTIs who presents to [facility] ER complaining of confusion and malaise. Ms. Powell is not a fully reliable historian at this time so information was primarily gathered from chart, medical staff and computer. According to the records she reported that her confusion began on the evening of 10/09/2023 with her life alert machine falling off her table and breaking which summoned EMS. She denies associated fever, chills, nausea, vomiting, chest pain, shortness of breath, dysuria or hematuria but she does know that she is confused and she is unsure of the date but she is oriented to person and place. In the ER her urinalysis was grossly positive for acute cystitis; without hematuria corresponding leukocytosis of 17.3 present on admission complicated by laboratory evidence of moderate hyponatremia of 124 mmol/L present on admission (with a baseline of approximately 127-131 on her last 3 visits) compounded by clinical evidence of metabolic encephalopathy and she was then admitted to the general medical floor for ongoing care for stay that is expected to be greater than 48 hours. FORMERLY [facility], [facility]–1983 Medical History Abdominal pain Actinic keratoses Anemia Arthritis Atypical chest pain Back problem Basal cell carcinoma of right forehead Basal cell carcinoma of right medial cheek Basal cell carcinoma of upper lip Benign neoplasm of skin of cheek Bilateral lower extremity edema Bladder disease Cancer COPD (chronic obstructive pulmonary disease) Cutaneous candidiasis DDD (degenerative disc disease) Debility Dermatitis Diabetes Dietary restriction Dissociative identity disorder Dizziness Drug abuse Flu vaccine need Frequent falls Gastric reflux Hemangioma of face Hepatitis High cholesterol History of edema History of stress test History of UTI Hypertension Injury of back Injury of head and neck Intertrigo Intradermal nevus Kidney disease Kidney failure Left ankle pain Left wrist fracture Loose, teeth Low iron Manic episode Morbid obesity Multiple personalities Neoplasm of skin of eyelid Neoplasm of skin of nose Neurofibroma of neck Obesity (BMI 30-39.9) Osteoarthritis Osteoporosis Panic attacks Prediabetes Primary osteoarthritis, left shoulder Rib pain on right side Seizures Shortness of breath on exertion Substance abuse Tumors Type 2 diabetes mellitus Urinary incontinence Venous insufficiency of both lower extremities Walker as ambulation aid Wears glasses Weight gain Home Medications acetaminophen 650 mg tablet,extended release (Tylenol Arthritis Pain) 650 mg PO Q12H PRN pain 01/23/21 [History Last Taken Unknown] Handicap Placard #1 ea 02/07/21 [Rx Last Taken Unknown] inhalational spacing device (POCKET CHAMBER spacer) #1 ea 06/26/21 [Rx Last Taken Unknown] buprenorphine 100 mg/0.5 mL solution,exten.rel.subcutaneous syringe 100 mg subcut QMONTH WITHDRAWAL SYMPTOM CONTROL 08/07/21 [History Last Taken 09/17/23] ascorbic acid (vitamin C) 500 mg capsule 500 mg PO DAILY vitamin 07/08/22 [History Last Taken Unknown] Incentive Spirometer #1 ea 08/05/22 [Rx Last Taken Unknown] ferrous sulfate 324 mg (65 mg iron) tablet,delayed release 324 mg PO Q OTHER DAY supplement #90 tabs 11/17/22 [Rx Last Taken Unknown] metoprolol succinate 50 mg tablet,extended release 24 hr 50 mg PO DAILY blood pressure #90 tabs 01/05/23 [Rx Last Taken Unknown] mirabegron 50 mg tablet,extended release 24 hr (Myrbetriq) 50 mg PO Q24H diabetic 05/07/23 [History Last Taken Unknown] metoprolol succinate 25 mg tablet,extended release 24 hr 25 mg PO QHS blood perssure #90 tabs 05/08/23 [Rx Last Taken Unknown] rosuvastatin 40 mg tablet 40 mg PO DAILY cholesterol #90 tabs 05/08/23 [Rx Last Taken Unknown] miconazole nitrate 2 % topical powder (Desenex) 1 applic topical BID skin health #85 grams 07/10/23 [Rx Last Taken Unknown] blood sugar diagnostic (FreeStyle Lite Strips) #100 ea 07/15/23 [Rx Last Taken Unknown] blood-glucose meter (FreeStyle Lite Meter kit) #1 ea 07/15/23 [Rx Last Taken Unknown] lancets 28 gauge (FreeStyle Lancets) #200 ea 07/15/23 [Rx Last Taken Unknown] divalproex 500 mg tablet,extended release 24 hr 500 mg PO BID seizure #60 tabs 07/21/23 [Rx Last Taken Unknown] lactulose 10 gram/15 mL oral solution 20 g (30 mL) PO DAILY laxative #946 mL 07/22/23 [Rx Last Taken Unknown] calcium carbonate 600 mg calcium (1,500 mg) tablet 600 mg PO BID supplement #180 tabs 08/06/23 [Rx Last Taken Unknown] lisinopril 40 mg tablet 40 mg PO QAM blood pressure #90 tabs 08/28/23 [Rx Last Taken Unknown] nicotine 21 mg/24 hr daily transdermal patch 1 patch transdermal Q24H to stop smoking #28 ea 09/16/23 [Rx Last Taken Unknown] cariprazine 3 mg capsule (Vraylar) 3 mg PO Q24H depression 09/19/23 [History Last Taken Unknown] fesoterodine 4 mg tablet,extended release 24 hr 4 mg PO DAILY bladder spasms 09/19/23 [History Last Taken Unknown] lamotrigine 200 mg tablet 200 mg PO QHS depression 09/19/23 [History Last Taken Unknown] meloxicam 15 mg tablet 15 mg PO DAILY pain 09/19/23 [History Last Taken Unknown] hydralazine 50 mg tablet 50 mg PO TID blood pressure #90 tabs 09/21/23 [Rx Last Taken Unknown] denosumab 60 mg/mL subcutaneous syringe (Prolia) 60 mg subcut [id number] bone health #1 mL 09/25/23 [Rx Last Taken Unknown] metformin 500 mg tablet,extended release 24 hr 500 mg PO BID diabetes #60 tabs 09/25/23 [Rx Last Taken Unknown] hydralazine 25 mg tablet 25 mg PO BID #60 tabs 10/08/23 [Rx Last Taken Unknown] Allergy/AdvReac Type Severity Reaction Status Date / Time iloperidone [From Fanapt] Allergy Severe Other Verified 10/08/23 13:39 paliperidone [From Invega] Allergy Severe increased Verified 10/08/23 13:39 psychiatric symptoms lurasidone [From Latuda] Allergy Other Verified 10/08/23 13:39 trazodone AdvReac Severe Other Verified 10/08/23 13:39 theophylline AdvReac Other Verified 10/08/23 13:39 Family History Brother Colon cancer Lung cancer Aunt Obesity Sister Obesity Mother Rheumatoid arthritis Father Alzheimer disease Brother Alzheimer disease Surgical History H/O hernia repair H/O: hysterectomy History of 3 sections History of basal cell carcinoma excision History of History of carpal tunnel surgery History of cholecystectomy History of colonoscopy History of endoscopy History of excision of lesion History of hernia repair Social History Smoking Status: Former smoker Tobacco: How many years used: 20 how long ago did patient quit smoking: second hand exposure: No alcohol intake: never substance use type: former substance user Date of last use: Cocaine what type of physical activity do you participate in: none vince/faith: Confucianist seatbelt use: always ROS ROS Narrative Review of systems: General: Patient denies fever or chills. HENT: Denies headache, denies stuffy nose, denies sore throat EYES: Denies changes in vision Resp: Denies cough, denies shortness of breath Cardiac: Denies chest pain GI: Denies abdominal pain, denies changes in bowel, had some nausea : Denies changes in urination but she does admit to frequent UTIs Extremity: Denies swelling Musculoskeletal: Feels somewhat generally weak and unwell Neuro: Denies any numbness/tingling Heme: Denies any bleeding or bruising Skin: Denies rashes Psychiatric: No complaints voiced Endocrine: No polyuria The rest of the 14 point ROS was negative except for positives in HPI. Vital Signs Vital Signs Vital Signs: 10/10/23 01:10 10/10/23 02:14 Temperature 97.4 F L 98 F Temperature Source Temporal Oral Pulse Rate 84 82 Respiratory Rate 22 H 22 H Blood Pressure 145/96 H 149/82 H Blood Pressure Mean 112 104 Pulse Ox 96 94 Oxygen Delivery Method Room Air Room Air Weight Weight: 231 lb 14.821 oz Body Mass Index (BMI) 45.3 Physical Exam Const alert and no apparent distress Constitutional Narrative: Patient is morbidly obese and appears to be acutely ill. General Appearance: cooperative Orientation / Consciousness: confused and lethargic HEENT normocephalic, head/scalp atraumatic, hearing grossly normal bilaterally and moist oral mucous membranes Eyes PERRL and EOMs intact bilaterally Neck no lymphadenopathy and supple Resp normal respiratory effort, no retractions, no use of accessory muscles and clear to auscultation bilaterally Cardio regular rate and regular rhythm GI normal to inspection, nondistended, normoactive bowel sounds, soft to palpation, non-tender and non-distended GI Narrative: Shabnam obese. Extremity Extremity Narrative: Patient has evidence of mild chronic venous stasis. Skin Skin Narrative: Patient has no evidence of rash at this time. Neuro CN's II-XII intact bilaterally, moves all extremities and no focal motor deficits Sensorium / Orientation: awake, alert, oriented to person and oriented to place Speech: speech normal Motor Exam: strength 5/5 throughout Psych affect normal Results Lab / Micro Data 10/10/23 01:30 10/10/23 01:30 Labs: Laboratory Results - last 24 hr 10/10/23 01:30: WBC 17.3 H, RBC 4.05 L, Hgb 12.5, Hct 36.3 L, MCV 89.6, MCH 30.9, MCHC 34.4, RDW Std Deviation 44.6 H, RDW Coeff of Tami 13.6, Plt Count 478 H, MPV 8.9, Immature Gran % (Auto) 1.000 H, Neut % (Auto) 82.5 H, Lymph % (Auto) 8.0 L, [place] % (Auto) 8.0, Eos % (Auto) 0.2, Baso % (Auto) 0.3, Absolute Neuts (auto) 14.3 H, Absolute Lymphs (auto) 1.38, Nucleated RBC % 0, Sodium 124 L, Potassium 3.9, Chloride 89 L, Carbon Dioxide 25.0, Anion Gap 10, BUN 12, Creatinine 0.86, Estim Creat Clear Calc 43.10, Est GFR (MDRD) Af Amer 84, Est GFR (MDRD) Non-Af 69, BUN/Creatinine Ratio 14.0, Glucose 102, Calcium 8.3 L, Total Bilirubin 0.50, AST 19, ALT 22, Alkaline Phosphatase 91, Troponin I High Sens 19, Total Protein 6.3 L, Albumin 3.2, Globulin 3.1, Albumin/Globulin Ratio 1.0, Valproic Acid 95 10/10/23 02:10: Lactic Acid 0.8, Urine Color Yellow, Urine Clarity Clear, Urine pH 6.5, Ur Specific [place] 1.005, Urine Protein 30 H, Urine Glucose (UA) Normal, Urine Ketones 15 H, Urine Occult Blood 50 H, Urine Nitrite Positive H, Urine Bilirubin Negative, Urine Urobilinogen Normal, Ur Leukocyte Esterase 500 H, Urine RBC 0-5 SEEN, Urine WBC 10-25 SEEN, Ur Squamous Epith Cells 0-5 SEEN, Urine Bacteria 3+, Urine Mucus 0 SEEN Micro: Microbiology 10/10/23 02:10 Nasal Secretion SARS-CoV-2 & FLU Antigen (Rapid) - Final Imagaing Radiology Impression Brain CT 10/10/23 01:41 IMPRESSION: 1. No acute intracranial abnormalities. 2. Age-related changes. Electronically Signed: Bradford Wellington MD at 3:14 EST Reading Location ID and State: [facility] / [place] Tel , Service support , Chest X-Ray 10/10/23 02:30 IMPRESSION: No acute findings in the chest. Electronically Signed: Bradford Wellington MD at 3:15 EST , Assessment & Plan Assessment/Plan (1) Hyponatremia: (2) UTI (urinary tract infection): QUALIFIERS: Hematuria presence: without hematuria Urinary tract infection type: acute cystitis Qualified Code(s): N30.00 - Acute cystitis without hematuria (3) Metabolic encephalopathy: PLAN: Plan 1. Acute cystitis; without hematuria accompanied by leukocytosis of 17.3 present on admission in the setting of known frequent UTIs - Admit to general medical floor. Continue broad-spectrum antibiotics with IV Rocephin and await culture and sensitivity data. Give Tylenol as needed pain or fever. Patient has no evidence of sepsis at the time of admission. 2. Moderate hyponatremia of 124 mmol/L present on admission complicating #1 - Give normal saline IV fluid and recheck BMP every 8 hours to allow for gradual correction of 8 to 10 mmol/L per 24 hours. Check serum and urine osmolality. Patient is on multiple medications for her mental illness which may very well be the culprit for this chronic issue. 3. Acute metabolic encephalopathy arising from #1 & #2 - Continue supportive care and monitor for improvement. Check TSH. 4. History of seizure disorder; on divalproex - Resume divalproex as previous level of 95 present on admission. Give as needed IV Ativan for breakthrough seizure activity. 5. Essential hypertension - Hold scheduled antihypertensives until infection is neutralized. Give IV hydralazine as needed for systolic blood pressure greater than 160 mmHg. 6. Dissociative identity disorder and bipolar disorder - Continue home medications and we will try to minimize [employer] active medications in light of #3. 7. Hyperlipidemia - Resume statin as previous. 8. Morbid obesity; with BMI 45.3 this admission - Weight loss will be recommended. 9. Diabetes mellitus type 2; of unknown control - ADA diet. Fingerstick blood sugars before every meal and at bedtime + scale insulin. Check hemoglobin A1c to objectively evaluate quality of diabetic control. 10. History of basal cell carcinoma and actinic keratoses - Stable. 11. Remote history of tobacco abuse (quit 20 years ago) - Noted. 12. Overactive bladder - Continue home medications as previous. 13. Chronic venous insufficiency in the bilateral lower extremities - Noted. 14. Chronic anemia - Stable at this time. 15. RA and osteoarthritis; with chronic back pain - Give Tylenol prn as outlined above. 16. DVT prophylaxis - Lovenox 40 mg sq BID plus SCD's. Total time: Approximately 55 minutes. Charges/Coding Visit Charges Inpatient E&M: 76775 Init Hosp L2
--- OUTSIDE RECORDS SUMMARY | 2023-10-10 05:02 | XMS RPT_ITS | CCD ---
Author Name Unknown Address [address] [place] [address] Organization [facility] Care Team Providers Care Water Main Installer Helper Name Role Phone Shira Hylton Unavailable Unavailable [...] Leopoldo Baird MD Primary Care Provider [phone] Unavailable Primary Care Provider Unavailabl e Oleangelie, Efewongbe B Primary Care Provider Labor Adelina STOREY T Unavailable [phone] Mica Welch CNP, Dejah Unavailable [phone] Manjit Ga DO Unavailable Unavailable Susie Ledezma MD Unavailable [phone] Oleghe, Efewongbe B Primary Care Provider Oleghe, [...] Facility (3 sources) iloperidone Drug Allergy 1 [facility] Work Phone: (1 source) paliperidone Drug Allergy [employer] [facility] Work Phone: (1 source) Theophylline Drug Allergy [employer] [facility] Work Phone: (1 source) traZODone Drug Allergy [employer] [facility] Work Phone: (20 sources) Naproxen Drug Allergy 1 Hives [facility] (3 sources) Gadoxetate Drug Allergy 7 Shortness of Breath, SOB [facility] (1 source) Slow-bid [Other] Propensity to adverse reactions 2 Mental Status Change [facility] Work Phone: (20 sources) paliperidone Drug Allergy 9 [facility] Work Phone: (20 sources) iloperidone Drug Allergy 9 [facility] (20 sources) lurasidone Drug Allergy 9 [facility] (20 sources) Theophylline Drug Allergy 7 [facility] (20 sources) Gadoxetate Propensity to adverse reactions 7 Shortness of breath [facility] (20 sources) Trazodone And Nefazodone Drug Intolerance 9 [facility] [employer] Medications Current Medications Medication Drug Class(es) Dates [...] Drug Class(es) Dates Sig (Normalized) Sig (Original) [id number] 200 actuat albuterol 0.09 mg/actuat metered dose [...] 152.4 cm Kareem Hartmann MD Work Phone: [employer] 09-03-2023 07:11-0500 Body mass index (BMI) [Ratio] 43.51 kg/m2 Kareem Hartmann MD Work Phone: [employer] 09-03-2023 07:11-0500 Body weight 101.06 kg Kareem Hartmann MD Work Phone: [employer] 09-03-2023 07:11-0500 Diastolic blood pressure 106 mm[Hg] Kareem Hartmann MD Work Phone: [employer] 09-03-2023 07:11-0500 Systolic blood pressure 169 mm[Hg] Kareem Hartmann MD Work Phone: [employer] 08-10-2023 08:11-0400 Body height 152.4 cm Kareem Hartmann MD Work Phone: [employer] 08-10-2023 08:11-0400 Body mass index (BMI) [Ratio] 43.36 kg/m2 Kareem Hartmann MD Work Phone: [facility] [employer] 08-10-2023 08:11-0400 Body weight 100.7 kg Kareem Hartmann MD Work Phone: [facility] [employer] 08-10-2023 08:11-0400 Diastolic blood pressure 88 mm[Hg] Kareem Hartmann MD Work Phone: [facility] [employer] 08-10-2023 08:11-0400 Heart rate 86 /min Kareem Hartmann MD Work Phone: [facility] [employer] 08-10-2023 08:11-0400 Systolic blood pressure 150 mm[Hg] Kareem Hartmann MD Work Phone: [facility] [employer] 07-09-2023 09:28-0400 Body height 152.4 cm Kareem Hartmann MD Work Phone: [facility] [employer] 07-09-2023 09:28-0400 Body mass index (BMI) [Ratio] 44.18 kg/m2 Kareem Hartmann MD Work Phone: [facility] [employer] 07-09-2023 09:28-0400 Body weight 102.6 kg Kareem Hartmann MD Work Phone: [facility] [employer] 07-09-2023 09:28-0400 Diastolic blood pressure 84 mm[Hg] Kareem Hartmann MD Work Phone: [facility] [employer] 07-09-2023 09:28-0400 Heart rate 75 /min Kareem Hartmann MD Work Phone: [facility] [employer] 07-09-2023 09:28-0400 Respiratory rate 16 /min Kareem Hartmann MD Work Phone: [facility] [employer] 07-09-2023 09:28-0400 Systolic blood pressure 142 mm[Hg] Kareem Hartmann MD Work Phone: [facility] [employer] 06-25-2023 09:06-0400 Body height 152.4 cm Kenzie Paul MD Work Phone: [facility] 06-25-2023 09:06-0400 Body mass index (BMI) [Ratio] 43.28 kg/m2 Kenzie Paul MD Work Phone: [facility] 06-25-2023 09:06-0400 Body weight 100.52 kg Kenzie Paul MD Work Phone: [facility] 06-25-2023 09:06-0400 Diastolic blood pressure 88 mm[Hg] Kenzie Paul MD Work Phone: [facility] Encounters Encounter Date Encounter Type Care Provider Facility Start: 09-28-2023 Refill Brett GO Work Phone: [facility] Start: 09-21-2023 Documentation procedure Kareem Hartmann MD Work Phone: [facility] Start: 09-21-2023 Telephone encounter Kareem rich MD Work Phone: [facility] Procedures Date Procedure Procedure Detail Performing Clinician Start: 07-09-2023 Lipid 1996 panel - Serum or Plasma Kareem Hartmann MD Work Phone: Start: 01-15-2022 Mammography Susie Ledezma MD Work Phone: Start: 12-05-2020 Lipid 1996 panel - Serum or Plasma [place] [employer] PharmD Work Phone: Start: 08-03-2020 Endoscopy [...] Author Start: 07-09-2028 Lipid panel Lipid Panel [facility] Start: 07-15-2026 DTaP/Tdap/Td Vaccine s (2 - Td or Tdap) DTaP/Tdap/Td Vaccines (2 - Td or Tdap) [facility] Start: 07-15-2026 Tetanus vaccination Imm-DTaP/T dap/Td (2 - Td or Tdap) [facility] Start: 07-15-2026 Urine microalbumin profile DTAP,TDAP,TD (2 - Td or Tdap) [facility] Start: 12-05-2025 Lipid panel Lipid Panel [facility] Start: 07-09-2024 Diabetes mellitus screening Diabetes Screening [facility] Start: 12-02-2023 Tobacco use cessatio n education Tobacco Cessation Counseling (#1) [facility] Start: 10-09-2023 End: 07-10-2024 25-hydroxyvitamin D3 [Mass/volume] in Serum or Plasma Vitamin D Deficiency Screening (Vit D 25) Lab Routine Vitamin D deficiency Expected: 10/09/2023 (Approximate), Expires: 07/10/2024 [facility] Immunizations Immunization Date Immunization Notes Care Provider Fa cility 08-27-2022 influenza virus vacc ine, unspecified formulation Susie Ledezma MD Work Phone: [facility] 07-21-2016 influenza, injectabl e, quadrivalent, contains preservative Emmanuel Larbernice Work Phone: [facility] 07-15-2016 tetanus toxoid, redu aaliyah diphtheria toxoid, and acellular pertussis vaccine, adsorbed [employer] Smart Work Phone: [facility] 09-05-2014 influenza, seasonal, injectable Emmanuel Berry Work Phone: [facility] Work Phone: 07-31-2012 pneumococcal polysaccharide vaccine, 23 valent Emmanuel Smart Work Phone: [facility] 07-29-2012 influenza virus vacc ine, unspecified formulation [employer] Smart Work Phone: [facility] 09-29-2010 pneumococcal polysaccharide vaccine, 23 valent [employer] Smart Work Phone: [facility] Payers Date Payer Category Payer Medicaid [facility] [place] [facility] [place] [id number] 2018-Present [phone] [address] [place] [address] Medicaid [id number] 2018 Medicare [id number] 2015 Medicare [id number] 2015 Unknown [id number] 1950 Unknown [id number] Social History Date Type Detail Facility Start: 10-19-1987 End: 06-25-2023 Tobacco smoking status FLIS Smokes tobacco daily [facility] Start: 10-19-1987 End: 10-16-2015 History of tobacco use Cigarette Smoker [facility] Start: 05-21-2016 End: 07-09-2023 Cigarettes smoked current (pack per day) - Reported 0.5 [facility] Start: 05-21-2016 End: 06-25-2023 Tobacco use and exposure Smokeless tobacco non-user [facility] Start: 08-29-2021 Alcohol intake Current non-dr director community organization of alcohol (finding) [facility] Start: 1950 Sex Assigned At Not on file [facility] Start: 07-30-2021 End: 07-09-2023 Exposure to SARS-CoV-2 (event) Not sure [facility] Start: 12-02-2022 End: 12-18-2022 Alcohol intake Lifetime non-drinker (finding) [employer] Work Phone: Start: 01-15-2021 History SDOH Alcohol Frequency 1 [employer] Work Phone: Start: 12-02-2022 Tobacco Comment half a pack da vini, smoked since 37 [employer] Work Phone: Start: 1950 Sex Assigned At Female [employer] Work Phone: Start: 04-30-2023 End: 07-09-2023 Alcohol intake Ex-drinker (finding) [facility] Start: 04-30-2023 End: 07-09-2023 Gender identity Not on file [facility] Start: 06-16-2023 Tobacco smoking stat us [facility] Ex-smoker [facility] Start: 10-19-1987 History of tobacco use Current smoke r [facility] Within the last year , have you been afraid of your partner or ex-partner? No [facility] NEGATED: Highlighted row - - -[employer] [facility] Work Phone: Functional Status Date Assessment Result Facility NEGATED: Highlighted row Functional performance Functional status health issues are not documented Disease [employer] [facility] Work Phone: Mental Status Date Assessment Result Facility NEGATED: Highlighted row Cognitive function [Interpretation] Cognitive status health issues are not documented Disease -[employer] [facility] Work Phone: Clinical Notes 01-31-2013 to 10-05-2023 Telephone Encounter - ABBI Cassidy - 10/05/2023 12:25 PM ESTTelephone Encounter - ABBI Cassidy - 10/05/2023 12:25 PM ESTTelephone Encounter - Elisa Arce RN - 10/05/2023 12:02 PM EST Note Date & Type Note Facility 10-05-2023 Note Addended by: ELISA ARCE on: 10/05/2023 12:08 PM Modules accepted: [facility] 10-05-2023 Telephone encounter Note Noted, thanks [facility] 10-05-2023 Miscellaneous Notes Noted, thanks [...] EGD is to be cancelled via pool: [facility] ALS CLINICAL GEODETIC SURVEYOR TECHNOLOGIST (List Surgeon as provider in the TE) EGD done 06/16/23 [x] Clinical staff to note in specialty comment date patient has withdrawn from the program [x] Sent to [facility] and Surgical Navigation and Financial Teams for notification. Name of caller: Giovana Contact phone number: [phone] Relationship to Patient: patient Provider: Kareem Hartmann [...] their call: Yes documented in this encounter [facility] 10-05-2023 Note Addended by: ELISA ARCE on: 10/05/2023 12:08 PM Modules accepted: Orders [facility] 10-05-2023 Note Addended by: ELISA ARCE on: 10/05/2023 12:08 PM Modules accepted: Orders [facility] 10-05-2023 Miscellaneous Notes Addended by: [...] recommended proceeding with the evaluation, workup and student union consultant preoperative consultations and testing for the primary procedure as outlined below: BARIATRIC AND METABOLIC SURGERY [facility] PATIENT SUMMARY Giovana Ledezma 72 y.o. [...] she has been compliant with, both in [place] and now in [place] She will need 6 months of physician [...] Practitioner) Manjit Ga DO (Psychiatry) Initial New [facility] surgical patient Navigation & Financial Counseling [...] PRIMARY INSURANCE: Payor: [employer] MEDICARE / Plan: [employer] DUAL ADVANTAGE / Product Type: Medicare HMO [...] 1) Scheduled at new pt surgeon visit: Embedded Software Architect (RD) for a Nutrition Assessment (BNA) and [...] and after surgery. documented in this encounter [facility] [employer] 10-05-2023 Telephone encounter Note See TE from 09/21/23 where pt withdrew from surg program and non surg. [facility] [employer] 10-05-2023 Telephone encounter Note Per message in [...] EGD is to be cancelled via pool: [facility] ALS CLINICAL GEODETIC SURVEYOR TECHNOLOGIST (List Surgeon as provider in the TE) EGD done 06/16/23 [x] Clinical staff to note in specialty comment date patient has withdrawn from the program [x] Sent to [facility] and Surgical Navigation and Financial Teams for notification. [employer] 09-28-2023 Telephone encounter Note One month sent but pt needs to complete repeat labs- please advise, thanks! [employer] 09-28-2023 Miscellaneous Notes One month sent but pt needs to complete repeat labs- please advise, thanks! Received fax from [facility] requesting refills for Vit B-12 500 mcg. documented in this encounter [employer] 09-28-2023 Telephone encounter Note Received fax from [facility] requesting refills for Vit B-12 500 mcg. [employer] 09-21-2023 Telephone encounter Note Name of caller: Giovana Contact phone number: [phone] Relationship to Patient: patient Provider: Kareem Hartmann [...] business hours to return their call: Yes [facility] 09-21-2023 Miscellaneous Notes Name of caller: Giovana Contact phone number: [phone] Relationship to Patient: patient Provider: Kareem Hartmann [...] their call: Yes documented in this encounter [facility] 09-21-2023 History of Present illness Narrative I called Ms. Powell (using the phone number listed in [employer] to discuss how she is tolerating the Trulicity. 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 Kareem Hartmann MD 3:14 PM 09/21/2023 documented in this encounter [facility] 09-03-2023 History of Present illness [...] the Trulicity, contact PCP and [facility], and seek immediate medical attention for urgent [...] --Leukocytosis and elevated platelets: follows with hematology/oncology ([facility], Dr. Russell) Plan of care discussed with [...] patient's medications and diagnoses listed in Epic. [facility] NON-SURGICAL WEIGHT LOSS MANAGEMENT PROGRAM ROOMING NOTE: [...] Path) Date of Initial Consultation:@FLOWLAST(8961)@ Initial Weight: @FLOWLAST([id number])@ Initial BMI: @FLOWLAST([id number])@ [place] Body Weight: @FLOWLAST([id number])@ Excess Body Weight: @FLOWLAST([id number])@ Body Fat Percentage: No flowsheet data found. [...] Juanita Daigle MA documented in this encounter [facility] 08-12-2023 Telephone encounter Note Patient states she is switching to the NSRUG program with Dr. Hartmann. [facility] 08-10-2023 Telephone encounter Note Patient needs scheduled for psychology please. On d/e 5 out of 6, thanks. [facility] 08-10-2023 Miscellaneous Notes Patient needs [...] recommended proceeding with the evaluation, workup and student union consultant preoperative consultations and testing for the primary procedure as outlined below: BARIATRIC AND METABOLIC SURGERY [facility] PATIENT SUMMARY Giovana Ledezma [...] she has been compliant with, both in [place] and now in [place] She will need 6 months of physician [...] Practitioner) Manjit Ga DO (Psychiatry) Initial New [facility] surgical patient Navigation & Financial Counseling [...] [] YES [] NO PRIMARY INSURANCE: Payor: [facility] MEDICARE / [facility] / Product Type: Medicare [...] 1) Scheduled at new pt surgeon visit: Embedded Software Architect (RD) for a Nutrition Assessment (BNA) and [...] surgery. documented in this encounter [facility] 08-10-2023 Note BARIATRIC CARE [facility] SURGICAL WEIGHT LOSS MANAGEMENT PROGRAM PROGRESS NOTE FOLLOW UP Patient: Giovana Powell Date of : 1950 Service Date: 08/10/2023 DE Visit number: 4 of 6 Pre Program Weight Metrics Date of Initial Consultation:@FLOWLAST(8961)@ Initial Weight: @FLOWLAST([id number])@ Initial BMI: @FLOWLAST([id number])@ [place] Body Weight: @FLOWLAST([id number])@ Excess Body Weight: @FLOWLAST([id number])@ Follow Up Weight Metrics Last Three Weights [...] home O2 Completed by: Juanita Daigle MA [facility] 08-10-2023 History of Present illness Narrative [facility] SURGICAL WEIGHT LOSS MANAGEMENT PROGRAM PROGRESS NOTE FOLLOW UP Patient: Giovana Powell Date of : 1950 Service Date: 08/10/2023 DE Visit number: 4 of 6 Pre Program Weight Metrics Date of Initial Consultation:@FLOWLAST(8961)@ Initial Weight: @FLOWLAST([id number])@ Initial BMI: @FLOWLAST([id number])@ [place] Body Weight: @FLOWLAST([id number])@ Excess Body Weight: @FLOWLAST([id number])@ Follow Up Weight Metrics Last Three Weights [...] home O2 Completed by: Juanita Daigle MA [facility] - SURGICAL WEIGHT LOSS MANAGEMENT PROGRAM PHYSICIAN [...] follow up with her sleep specialist in [place] --smoking cessation: recently quit with nicotine patch [...] --Leukocytosis and elevated platelets: follows with hematology/oncology ([facility], Dr. Russell) Advised patient to continue [...] listed in Epic. documented in this encounter [facility] 08-05-2023 History of Present illness Narrative [facility] BARIATRIC NUTRITION ASSESSMENT [...] RD documented in this encounter [facility] 07-14-2023 Telephone encounter Note So far, we haven't received anything from the pharmacy about a prior authorization for Trulicity. When I spoke to the patient, I also told her to call us if there was any issues. [facility] 07-14-2023 Miscellaneous Notes So far, [...] a call back. documented in this encounter [facility] 07-14-2023 Telephone encounter Note Thank you, yes Trulicity was recommended by the insurance company since Mounjaro is not covered. How will we know if Trulicity is covered by insurance? Thanks again [facility] [employer] 07-14-2023 Telephone encounter Note FYI: Spoke with [...] was any issues to call us back. [facility] [employer] 07-10-2023 Telephone encounter Note Signed, thanks [facility] [employer] 07-10-2023 Miscellaneous Notes Signed, thanks Noted, thank [...] sent regarding labs. documented in this encounter [facility] [employer] 07-10-2023 Telephone encounter Note Noted, thank you! [employer] Work Phone: 07-10-2023 Telephone encounter Note Called [...] months. Orders pending. Please sign. Thank you! [facility] [employer] 07-10-2023 History of Present illness Narrative Message regarding prior authorization reviewed. Recommendation is to substitute Rickey for Mounjaro. Changes made and prescription sent to pharmacy. documented in this encounter [facility] [employer] 07-10-2023 Telephone encounter Note I called Ms. [...] questions/concerns. Kareem Hartmann MD 9:45 AM 07/10/2023 [facility] 07-10-2023 Miscellaneous Notes I called [...] a call back. documented in this encounter [facility] 07-10-2023 Telephone encounter Note Started PA through CMM [facility] 07-09-2023 Telephone encounter Note Patient left VM stating she has a question for Dr. Hartmann and would like a call back. [facility] 07-09-2023 Telephone encounter Note Pre-op_JZ 07/09/2023 Vitamin D: 20 (L) Magnesium: 2.5 (H) Vitamin B12: 333 (L end NL) [employer] message sent regarding labs. [facility] 07-09-2023 Note Addended by: MARCELO LAM on: 07/09/2023 10:11 AM Modules accepted: Orders [facility] 07-09-2023 Note BARIATRIC CARE [facility] SURGICAL WEIGHT LOSS MANAGEMENT PROGRAM PROGRESS NOTE FOLLOW UP Patient: Giovana Powell Date of : 1950 Service Date: 07/09/2023 [place] Visit number: 3 of 6 Pre Program Weight Metrics Date of Initial Consultation:@FLOWLAST(8961)@ Initial Weight: @FLOWLAST([id number])@ Initial BMI: @FLOWLAST([id number])@ [place] Body Weight: @FLOWLAST([id number])@ Excess Body Weight: @FLOWLAST([id number])@ Follow Up Weight Metrics Last Three Weights [...] home O2 Completed by: Evelyn Chambers MA [facility] 07-09-2023 Note Addended by: MARCELO LAM on: 07/09/2023 10:11 AM Modules accepted: Orders [facility] 07-09-2023 Note Addended by: MARCELO ALM on: 07/09/2023 10:11 AM Modules accepted: Orders [facility] 07-09-2023 Note Addended by: MARCELO LAM on: 07/09/2023 10:11 AM Modules accepted: Orders [facility] 07-09-2023 Note Addended by: MARCELO LAM on: 07/09/2023 10:11 AM Modules accepted: Orders [facility] 07-09-2023 Miscellaneous Notes Addended by: [...] recommended proceeding with the evaluation, workup and student union consultant preoperative consultations and testing for the primary procedure as outlined below: BARIATRIC AND METABOLIC SURGERY [facility] PATIENT SUMMARY Giovana Ledezma 72 y.o. [...] she has been compliant with, both in [place] and now in [place] She will need 6 months of physician [...] Practitioner) Manjit Ga DO (Psychiatry) Initial New [facility] surgical patient Navigation & Financial Counseling [...] PRIMARY INSURANCE: Payor: [employer] MEDICARE / Plan: [employer] DUAL ADVANTAGE / Product Type: Medicare HMO [...] 1) Scheduled at new pt surgeon visit: Embedded Software Architect (RD) for a Nutrition Assessment (BNA) and [...] surgery. documented in this encounter [facility] 07-09-2023 History of Present illness Narrative [facility] SURGICAL WEIGHT LOSS MANAGEMENT PROGRAM PROGRESS NOTE FOLLOW UP Patient: Giovana Powell Date of : 1950 Service Date: 07/09/2023 [place] Visit number: 3 of 6 Pre Program Weight Metrics Date of Initial Consultation:@FLOWLAST(8961)@ Initial Weight: @FLOWLAST([id number])@ Initial BMI: @FLOWLAST([id number])@ [place] Body Weight: @FLOWLAST([id number])@ Excess Body Weight: @FLOWLAST([id number])@ Follow Up Weight Metrics Last Three Weights [...] -GI surgeries: cholecystectomy, hysterectomy -Anti-obesity medications are buttermaker continuous churn medications. Weight gain will likely result when [...] follow up with her sleep specialist in [place], she also requires pulmonology clearance prior to [...] listed in Epic. documented in this encounter [facility] 07-09-2023 History of Present illness Narrative [facility] SURGICAL WEIGHT LOSS MANAGEMENT PROGRAM PROGRESS NOTE FOLLOW UP Patient: Giovana Powell Date of : 1950 Service Date: 07/09/2023 DE Visit number: 3 of 6 Pre Program Weight Metrics Date of Initial Consultation:@FLOWLAST(8961)@ Initial Weight: @FLOWLAST([id number])@ Initial BMI: @FLOWLAST([id number])@ [place] Body Weight: @FLOWLAST([id number])@ Excess Body Weight: @FLOWLAST([id number])@ Follow Up Weight Metrics Last Three Weights [...] -GI surgeries: cholecystectomy, hysterectomy -Anti-obesity medications are assisted medications. Weight gain will likely result when [...] follow up with her sleep specialist in [place], she also requires pulmonology clearance prior to [...] listed in Epic. documented in this encounter [facility] 06-25-2023 Note 06/25/2023 REFERRING PHYSICIAN: [...] Dr. Newell/ Vickie general CHOLECYSTECTOMY 2019 laparoscopic -[place] HYSTERECTOMY [facility] Social History: Social History Socioeconomic History Marital [...] (06/25/23905) Resp 18 (more content not included)... [facility] 06-25-2023 History of Present illness Narrative Images [...] Dr. Newell/ Vickie general CHOLECYSTECTOMY 2019 laparoscopic -[place] HYSTERECTOMY [facility] Social History: Social History Socioeconomic History Marital [...] for Spirometry results. documented in this encounter [facility] 06-25-2023 Instructions Isha aGrcia Rai, MA - 06/25/2023 10:00 AM EDT YOUR APPOINTMENT TODAY WAS WITH THE [facility], COPD CLINIC, PULMONARY AND SLEEP MEDICINE OFFICE. PLEASE CALL OUR OFFICE AT [phone] IF YOU HAVE NOT RECEIVED YOUR TEST [...] to make improvements. COVID-19 VACCINATION INFORMATION: PH. [phone] HEALTH.ORG/CORONAVIRUS/VACCINE [facility] Central Scheduling [phone] [facility] Sleep Scheduling [phone] documented in this encounter [facility] 06-17-2023 Note [facility]IATRIC CARE [facility] SURGICAL WEIGHT LOSS MANAGEMENT PROGRAM PROGRESS NOTE FOLLOW UP Patient: Giovana Powell Date of : 1950 Service Date: 06/17/2023 DE Visit number: 2 of 6 Pre Program Weight Metrics Date of Initial Consultation:@FLOWLAST(8961)@ Initial Weight: @FLOWLAST([id number])@ Initial BMI: @FLOWLAST([id number])@ [place] Body Weight: @FLOWLAST([id number])@ Excess Body Weight: @FLOWLAST([id number])@ Follow Up Weight Metrics Last Three Weights [...] home O2 Completed by: Nata Bro LPN [facility] 06-17-2023 History of Present illness Narrative [facility] SURGICAL WEIGHT LOSS MANAGEMENT PROGRAM PROGRESS NOTE FOLLOW UP Patient: Giovana Powell Date of : 1950 Service Date: 06/17/2023 DE Visit number: 2 of 6 Pre Program Weight Metrics Date of Initial Consultation:@FLOWLAST(8961)@ Initial Weight: @FLOWLAST([id number])@ Initial BMI: @FLOWLAST([id number])@ [place] Body Weight: @FLOWLAST([id number])@ Excess Body Weight: @FLOWLAST([id number])@ Follow Up Weight Metrics Last Three Weights [...] updated and completed. documented in this encounter [facility] 06-16-2023 Note Patient: Giovana Powell Procedure Summary Date: 06/16/23 Room / Location: [facility] [address] ENDO SEC 3 / ARCH [...] once all PACU criteria has been met. [facility] 06-16-2023 Note Patient: Giovana Powell Procedure Summary Date: 06/16/23 Room / Location: [facility] ENDO SEC 3 / ARCH Gastroenterology [...] of surgery or procedure by MD, APC gasoline truck operator proxy staff ([id number]) The patient did smoke [...] opportunity for questions and acknowledgement of understanding. [facility] 06-16-2023 Note Endoscopy Center- [facility] Patient Name: Giovana Powell Procedure Date: 06/16/2023 8:44 AM Gender: Female Date of : 1950 Age: 72 Admit Type: Outpatient Note Status: Finalized Endoscopist: Susie Ledezma MD, [id number] Procedure: Upper GI endoscopy Indications: Suspected gastro-esophageal [...] immediate complications. Procedure Code(s): --- Professional --- 24763, Esophagogastroduodenoscopy, flexible, transoral; with biopsy, single or multiple --- Technical --- 68110, Esophagogastroduodenoscopy, flexible, transoral; with biopsy, single or multiple Diagnosis Code(s): --- Professional --- K29.70, Gastritis, unspecified, without bleeding Z01.818, Encounter for other preprocedural examination E66.01, Morbid (severe) obesity due to excess calories --- Technical --- K29.70, Gastritis, unspecified, without bleeding Z01.818, Encounter for other preprocedural examination E66.01, Morbid (severe) obesity due to excess calories CPT copyright 2021 [employer]. All rights reserved. The codes documented in this report are preliminary and upon correctional food service supervisor review may be revised to meet current compliance requirements. Attending Participation: I personally performed the entire procedure. Susie Ledezma MD 06/16/2023 9:09:17 AM This report has been signed electronically. Number of Addenda: 0 Note Initiated On: 06/16/2023 8:44 AM [facility] 06-16-2023 Note Patient: Giovana Powell Procedure Information Date/Time: 06/16/23 0900 Procedure: EGD WITH BIOPSY - 30 MINUTES Location: [address] ENDO SEC 3 / ARCH Gastroenterology [...] weakness No date: Prediabetes No date: Seizures ([facility]) last 35 years ago No date: Snoring Past Surgical History: Past Surgical History: No date: SECTION, LOW TRANSVERSE Comment: 1979, 1980, 1985 Dr. Newell/ Vickie lowry 2019: CHOLECYSTECTOMY Comment: laparoscopic -[place] No date: HYSTERECTOMY Comment: [facility] Social History: TOBACCO: reports that she has [...] found for this or any previous visit. [facility] 06-16-2023 Note Formatting of this n ote might be different from the original. Endoscopy Center- [facility] Patient Name: Giovana Powell Procedure Date: 06/16/2023 8:44 AM Gender: Female Date of : 1950 Age: 72 Admit Type: Outpatient Note Status: Finalized Endoscopist: Susie Ledezma MD, [id number] Procedure: Upper GI endoscopy Indications: Suspected gastro-esophageal [...] immediate complications. Procedure Code(s): --- Professional --- 54248, Esophagogastroduodenoscopy, flexible, transoral; with biopsy, single or multiple --- Technical --- 92593, Esophagogastroduodenoscopy, flexible, transoral; with biopsy, single or multiple Diagnosis Code(s): --- Professional --- K29.70, Gastritis, unspecified, without bleeding Z01.818, Encounter for other preprocedural examination E66.01, Morbid (severe) obesity due to excess calories --- Technical --- K29.70, Gastritis, unspecified, without bleeding Z01.818, Encounter for other preprocedural examination E66.01, Morbid (severe) obesity due to excess calories CPT copyright 2021 [employer]. All rights reserved. The codes documented in this report are preliminary and upon correctional food service supervisor review may be revised to meet current compliance requirements. Attending Participation: I personally performed the entire procedure. Susie Ledezma MD 06/16/2023 9:09:17 AM This report has been signed electronically. Number of Addenda: 0 Note Initiated On: 06/16/2023 8:44 AM [facility] [employer] 06-16-2023 Note Formatting of this n ote might be different from the original. [facility]ov[facility] Powell Procedure Date: 06/16/2023 8:44 AM Gender: Female Date of : 1950 Age: 72 Admit Type: Outpatient Note Status: Finalized Endoscopist: Susie Ledezma MD, [id number] Procedure: Upper GI endoscopy Indications: Suspected gastro-esophageal [...] immediate complications. Procedure Code(s): --- Professional --- 97074, Esophagogastroduodenoscopy, flexible, transoral; with biopsy, single or multiple --- Technical --- 77159, Esophagogastroduodenoscopy, flexible, transoral; with biopsy, single or multiple Diagnosis Code(s): --- Professional --- K29.70, Gastritis, unspecified, without bleeding Z01.818, Encounter for other preprocedural examination E66.01, Morbid (severe) obesity due to excess calories --- Technical --- K29.70, Gastritis, unspecified, without bleeding Z01.818, Encounter for other preprocedural examination E66.01, Morbid (severe) obesity due to excess calories CPT copyright 2021 [employer]. All rights reserved. The codes documented in this report are preliminary and upon correctional food service supervisor review may be revised to meet current compliance requirements. Attending Participation: I personally performed the entire procedure. Susie Ledezma MD 06/16/2023 9:09:17 AM This report has been signed electronically. Number of Addenda: 0 Note Initiated On: 06/16/2023 8:44 AM [facility] [employer] 06-16-2023 Miscellaneous Notes [facility] Name: Giovana Powell Procedure Date: 06/16/2023 8:44 AM Gender: Female Date of : 1950 Age: 72 Admit Type: Outpatient Note Status: Finalized Endoscopist: Susie Ledezma MD, [id number] Procedure: Upper GI endoscopy Indications: Suspected gastro-esophageal [...] immediate complications. Procedure Code(s): --- Professional --- 40340, Esophagogastroduodenoscopy, flexible, transoral; with biopsy, single or multiple --- Technical --- 06900, Esophagogastroduodenoscopy, flexible, transoral; with biopsy, single or multiple Diagnosis Code(s): --- Professional --- K29.70, Gastritis, unspecified, without bleeding Z01.818, Encounter for other preprocedural examination E66.01, Morbid (severe) obesity due to excess calories --- Technical --- K29.70, Gastritis, unspecified, without bleeding Z01.818, Encounter for other preprocedural examination E66.01, Morbid (severe) obesity due to excess calories CPT copyright 2021 [employer]. All rights reserved. The codes documented in this report are preliminary and upon correctional food service supervisor review may be revised to meet current compliance requirements. Attending Participation: I personally performed the entire procedure. Susie Ledezma MD 06/16/2023 9:09:17 AM This report has been signed electronically. Number of Addenda: 0 Note Initiated On: 06/16/2023 8:44 AM documented in this encounter [facility] 06-15-2023 Note [facility] - [facility] Surgery PATIENT NAME: [...] Vickie general CHOLECYSTECTOMY 2019 laparoscopic -[place] HYSTERECTOMY [facility] Current Medications: Current Facility-Administered Medications Medication Dose Route Frequency Provider Last Rate Last Admin sodium chloride 0.9 % infusion 50 mL/hr IntraVENous Continuous ABBI Cassdiy Prior to Admission medications Medication Sig Start [...] Brother Obesity Brot (more content not included)... [facility] 06-15-2023 History and physical note Images from the original note were not included. [facility] - Surgery [facility] Physicians Surgery PATIENT NAME: Giovana Powell [...] LOW TRANSVERSE 1979, 1980, 1985 Dr. Newell/ Vikcie general CHOLECYSTECTOMY 2019 laparoscopic -[place] HYSTERECTOMY [facility] Current Medications: Current Facility-Administered Medications Medication Dose [...] and willingness to proceed with plan. ' [facility] 06-15-2023 History and physical note Images from the original note were not included. [facility] - Surgery [facility] Physicians Surgery PATIENT NAME: Giovana Powell [...] Dr. Newell/ Vickie general CHOLECYSTECTOMY 2019 laparoscopic -[place] HYSTERECTOMY [facility] Current Medications: Current Facility-Administered Medications Medication Dose [...] with plan. ' documented in this encounter [facility] 06-08-2023 History of Present illness Narrative [facility] BARIATRIC NUTRITION ASSESSMENT [...] RD documented in this encounter [facility] 06-08-2023 History of Present illness Narrative [facility] BARIATRIC NUTRITION ASSESSMENT [...] Lashonda Mason RD documented in this encounter [facility] [employer] 05-15-2023 Telephone encounter Note Orders mailed- with pain management clearance and neurology clearance form [facility] 05-15-2023 Miscellaneous Notes Orders mailed- [...] recommended proceeding with the evaluation, workup and student union consultant preoperative consultations and testing for the primary procedure as outlined below: BARIATRIC AND METABOLIC SURGERY [facility] PATIENT SUMMARY Giovana Ledezma 72 y.o. [...] she has been compliant with, both in [place] and now in [place] She will need 6 months of physician [...] Team: Leopoldo rajput PCP - General Adelina iLn DO (Addiction Medicine) Dejah Drew APRN - HARBOR POLICE LAUNCH COMMANDER (Nurse Practitioner) Manjit Ga DO (Psychiatry) Initial New [facility] surgical patient Navigation & Financial Counseling [...] PRIMARY INSURANCE: Payor: [employer] MEDICARE / Plan: [employer] DUAL ADVANTAGE / Product Type: Medicare HMO [...] 1) Scheduled at new pt surgeon visit: Embedded Software Architect (RD) for a Nutrition Assessment (BNA) and [...] surgery. documented in this encounter [facility] 05-14-2023 History of Present illness Narrative [facility] SURGICAL WEIGHT LOSS MANAGEMENT [...] Weight: 223 lb 6.4 oz (101 kg) [place] Body Weight: 120 lb (54.4 kg) Initial [...] home O2 Completed by: Juanita Daigle MA [facility] SURGICAL WEIGHT LOSS MANAGEMENT PROGRAM PHYSICIAN SUPERVISED [...] Dr. Newell/ Vickie general CHOLECYSTECTOMY 2019 laparoscopic -[place] HYSTERECTOMY [facility] Family History Problem Relation Name Age of [...] No medications on file Discontinued Medications NYAM[facility]C 900652 UNIT/GM POWDER This patient's excess weight is causing the following co-morbid conditions at this time:GERD, Fatty Liver Disease, High Cholesterol, HTN, JENNIFER with or without CPAP, and Other pre-diabetes Initial Diet & Exercise/SPR Visit Weight Metrics: Date of Initial Diet & Exercise Visit: Consult Date: 05/14/23 Initial Weight: Initial Weight: 223 lb 6.4 oz (101 kg) Initial BMI: Initial BMI: 43.63 [place] Body Weight: [place] Body Weight: 120 lb (54.4 kg) Excess [...] DIET HISTORY FORM with patient (located in [employer]) I reviewed all of the patient's medications [...] follow up with her sleep specialist in [place], she also requires pulmonology clearance prior to [...] 05/14/2023 1:31 PM documented in this encounter [facility] [employer] 05-13-2023 Note Addended by: BRETT BERNAL on: 05/13/2023 09:07 AM Modules accepted: Orders [facility] 05-13-2023 Note Addended by: BRETT BERNAL on: 05/13/2023 09:07 AM Modules accepted: Orders [facility] 05-13-2023 Note Addended by: BRETT BERNAL on: 05/13/2023 09:07 AM Modules accepted: Orders [facility] 05-13-2023 Note Addended by: BRETT BERNAL on: 05/13/2023 09:07 AM Modules accepted: Orders [facility] 05-13-2023 Note Addended by: BRETT BERNAL on: 05/13/2023 09:07 AM Modules accepted: Orders [facility] 05-13-2023 Telephone encounter Note Signed and printed orders Neuro clearance will be needed once we know name of provider- she has appt in May Psych clearance will defer to our psychologists to obtain records from Dr. Ga T [facility] 05-11-2023 Note Plan: I have recommended proceeding with the evaluation, workup and student union consultant preoperative consultations and testing for the primary procedure as outlined below: BARIATRIC AND METABOLIC SURGERY [facility] PATIENT SUMMARY Giovana Ledezma [...] she has been compliant with, both in [place] and now in [place] She will need 6 months of physician [...] PATRICIO (Nurse Practitioner) Manjit Ga DO (Psychiatry) [facility] 05-11-2023 Note Addended by: Jerrell MORRIS on: 05/11/2023 08:06 AM Modules accepted: Orders [facility] 05-11-2023 Note Addended by: Jerrell MORRIS on: 05/11/2023 08:06 AM Modules accepted: Orders [facility] 05-11-2023 Note Addended by: Jerrell MORRIS on: 05/11/2023 08:06 AM Modules accepted: Orders [facility] 05-11-2023 Note Addended by: Jerrell MORRIS on: 05/11/2023 08:06 AM Modules accepted: Orders [facility] 05-11-2023 Note Addended by: Jerrell MORRIS on: 05/11/2023 08:06 AM Modules accepted: Orders [facility] 05-11-2023 Note Addended by: Jerrell MORRIS on: 05/11/2023 08:06 AM Modules accepted: Orders [facility] 05-11-2023 Miscellaneous Notes Addended by: MONICA MORRIS on: 05/11/2023 08:06 AM Modules accepted: Orders Orders pended, Pre op check list scanned to media. EGD order sent to ALS. Plan: I have recommended proceeding with the evaluation, workup and student union consultant preoperative consultations and testing for the primary procedure as outlined below: BARIATRIC AND METABOLIC SURGERY [facility] PATIENT SUMMARY Giovana Ledezma 72 y.o. [...] [x] Others [] []Heme/Onc [x]Pain mgmt: Dr. iLn [x]Other: Dr. Ga - psych ALSO - [...] she has been compliant with, both in [place] and now in [place] She will need 6 months of physician [...] PRIMARY INSURANCE: Payor: [employer] MEDICARE / Plan: [employer] DUAL ADVANTAGE / Product Type: Medicare HMO [...] 1) Scheduled at new pt surgeon visit: Embedded Software Architect (RD) for a Nutrition Assessment (BNA) and [...] and after surgery. documented in this encounter [facility] [employer] 05-11-2023 Telephone encounter Note Orders pended, Pre op check list scanned to media. EGD order sent to ALS. [facility] 05-11-2023 Telephone encounter Note Plan: I have recommended proceeding with the evaluation, workup and student union consultant preoperative consultations and testing for the primary procedure as outlined below: BARIATRIC AND METABOLIC SURGERY [facility] PATIENT SUMMARY Giovana Ledezma [...] she has been compliant with, both in [place] and now in [place] She will need 6 months of physician [...] PATRICIO (Nurse Practitioner) Manjit Ga DO (Psychiatry) [facility] 04-30-2023 Note Initial New [facility] surg ical [...] [] YES [] NO PRIMARY INSURANCE: Payor: [employer] MEDICARE / Plan: [employer] DUAL ADVANTAGE / Product Type: Medicare HMO [...] 1) Scheduled at new pt surgeon visit: Embedded Software Architect (RD) for a Nutrition Assessment (BNA) and [...] and lab/testing results before and after surgery. [facility] 04-30-2023 Telephone encounter Note Initial New [facility] surgical patient Navigation & Financial Counseling [...] [] YES [] NO PRIMARY INSURANCE: Payor: [facility] MEDICARE / Plan: [facility] DUAL ADVANTAGE / Product Type: Medicare [...] 1) Scheduled at new pt surgeon visit: Embedded Software Architect (RD) for a Nutrition Assessment (BNA) and [...] and lab/testing results before and after surgery. [facility] 04-30-2023 History of Present illness Narrative Images from the original note were not included. [facility] SURGICAL PROGRAM INITIAL [...] Dr. Newell/ Vickie general CHOLECYSTECTOMY 2019 laparoscopic -[place] HYSTERECTOMY [facility] Social History: This patient is unaccompanied for [...] I advised them to discuss with their physician/service electrician regarding contraception to prevent during this period of time after surgery. In addition, all patients were counseled on compliance with prescribed vitamin supplementation, office visit follow-up and compliance with program standards. Plan: I have recommended proceeding with the evaluation, workup and student union consultant preoperative consultations and testing for the primary procedure as outlined below: BARIATRIC AND METABOLIC SURGERY [facility] PATIENT SUMMARY Giovana Ledezma 72 y.o. [...] she has been compliant with, both in [place] and now in [place] She will need 6 months of physician [...] DO (Addiction Medicine) Dejah Drew APRN - HARBOR POLICE LAUNCH COMMANDER (Nurse Practitioner) Manjit Ga DO (Psychiatry) [facility] SURGICAL WEIGHT LOSS MANAGEMENT PROGRAM Rooming Note [...] see TE created documented in this encounter [facility] 12-18-2022 History of Present illness [...] PHONE with this provider practicing within the [facility]. The identity of Jacklyn Abraham was [...] and eating well, mood stable, busy with jain and groups. No hallucinations, still lost track [...] AM Final 11/17/2022 12:07 PM NA Facility: [facility] Specimen Source: NA Admitting Provider: Ordered [...] 3/uL NUCLEATED RBC 0 0-5 Performed By: [facility] [address] [place], [place], [id number] Basic Metabolic Profile (BMP) Date Collected Date Received Status Reported/Status Changed Priority 11/17/2022 9:22 AM 11/17/2022 9:22 AM Final 11/17/2022 12:32 PM NA Facility: [facility] Specimen Source: NA Admitting Provider: Ordered [...] 21.0-32.0 mmol/L GAP 5 5-15 Performed By: [facility] [address] 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 [x] Medication: Discussed risks, side effects, benefits and alternatives to prescribed medication: 2). Referrals/Psychotherapy follow up/Co-management with other providers [x] Primary care: [] Case Management at [facility] [] Alcohol/Drug treatment: [x] Psychoeducation/Counseling [x] Other: -neurologist 3). [x] Emergency Contact Plan: Patient understands to call Mobile Crisis at [phone], call 911, or go to the nearest ER as appropriate in case of thoughts of harm to self or others, or acute onset of intolerable side effects. 4.) [x] Physician/MORPHOLOGY TEACHER Order: See PharmD , color buffer to document data and make observations of the patient, including observations of physical and mental health symptoms, medication response, side effects and adherence, as well as education. RN will assess patient's health status, provide education with pill boxes and/or administer long-acting injections per orders. documented in this encounter [employer] Work Phone: 12-02-2022 History of Present illness Narrative Jacklyn Powell engaged in a telehealth session via PHONE with this provider practicing within the [facility]. The identity of Natali was verified [...] -Prazosin 1mg tablet: 3T PO HS -Called [facility] to verify it patient receiving medications, patient last got her medications in an adherence pack on 11/07/2022 (likely billed as keys so it won't show up in the dispense report) *Sublocade 100mg/0.5mL: OARRS LF 11/27/22 (prescribed by Adelina Lin DO in [place]) SUBJECTIVE: Spoke with this patient today for a refill appointment, patient has a PMH of bipolar disorder, DID, and severe linnea. She is switching care to a new psychiatrist closer to her home in [place], but her appointment is not until late [...] time. Gets medications in adherence packaging via [facility] in [place]; denies recent missed doses. Medications: Current Outpatient [...] cups of coffee per day PCP: In [place] Pharmacy: [facility] in [place] Vaccinations: Received annual flu on 08/27/22; no [...] Tova Bates PharmD documented in this encounter [employer] Work Phone: 09-02-2021 Miscellaneous Notes CD / reports READY FOR PERFUME COMPOUNDER AT [facility] Patient wants a copy of the xray from 08/29/2021 and report. Patient will orange picking supervisor on Thursday. Thank you, Blanche documented in this encounter [facility] 08-29-2021 Note HNO ID: [id number] Author: Nory Hutchinson APRN.HARBOR POLICE LAUNCH COMMANDER Service: ? Author Type: Nurse Practitioner Type: Procedures Filed: 08/29/2021 6:43 PM Note Text: ED PROCEDURE NOTE: Splinting The risks, benefits, alternatives, and personnel discussed with patient or field service representative who consents to the procedure. The [...] managed with no additional personell Nory Hutchinson APRN.HARBOR POLICE LAUNCH COMMANDER [facility] 08-29-2021 Note HNO ID: [id number] Author: RT Desean(R) Service: Nuclear Medicine Author [...] Thompson, RT(R) August 29, 2021 5:27 PM [facility] 08-29-2021 Note HNO ID: [id number] Author: Nory Hutchinson APRN.HARBOR POLICE LAUNCH COMMANDER Service: ? Author Type: Nurse Practitioner Type: Progress Notes Filed: 08/29/2021 6:43 PM Note Text: This note was created using [employer]. Subjective Giovana Powell is a 71 year [...] history is provided by the patient. No manager manufacturing was used. Fall The accident occurred 3 [...] Times 3 - COLONOSCOP W/ OR W/O [facility] 06/27/11 - COLONOSCOP W/ OR W/O [facility] 11/24/14 poor prep -5 year [...] tablet Take 1 (more content not included)... [facility] documented as of this encounter (statuses as of 04/16/2022) [facility] note* Diagnosis Bipolar disorder with psychotic features ([facility])- Primary Dissociative identity disorder ([facility]) Dissociative identity disorder documented in this encounter [facility] Work Phone: Evaluation note* Diagnosis Bipolar disorder with psychotic features ([facility])- Primary Dissociative identity disorder ([facility]) Dissociative identity disorder Opioid use disorder, moderate, on maintenance therapy ([facility]) documented in this encounter [facility] Work Phone: Evaluation note* Diagnosis Tobacco use disorder- Primary Primary hypertension Unspecified essential hypertension Prediabetes Other abnormal glucose Morbid obesity with BMI of 40.0-44.9, adult ([facility]) JENNIFER (obstructive sleep apnea) Obstructive sleep apnea (adult) (pediatric) High cholesterol Pure hypercholesterolemia History of substance abuse ([facility]) ([facility]) Other, mixed, or unspecified nondependent drug abuse, unspecified [facility] Diagnosis Chronic obstructive pulmonary disease, unspecified COPD type (HCC)- Primary Primary hypertension Unspecified essential hypertension Gastroesophageal reflux disease, unspecified whether esophagitis present Tobacco use disorder JENNIFER (obstructive sleep apnea) Obstructive sleep apnea (adult) (pediatric) High cholesterol Pure hypercholesterolemia Morbid obesity with BMI of 40.0-44.9, adult (HCC) Functional dyspepsia Dyspepsia and other specified disorders of function of stomach [facility] Diagnosis Morbid obesity due to excess calories (HCC)- Primary Hypertension, unspecified type Functional dyspepsia Dyspepsia and other specified disorders of function of stomach [facility]* Diagnosis Prediabetes- Primary Other abnormal glucose Gastroesophageal reflux disease, unspecified whether esophagitis present Functional dyspepsia Dyspepsia and other specified disorders of function of stomach [facility]* Diagnosis GERD (gastroesophageal reflux disease)- Primary Esophageal reflux Functional dyspepsia Dyspepsia and other specified disorders of function of stomach Morbid obesity with BMI of 40.0-44.9, adult ([facility]) Chronic superficial gastritis without bleeding JENNIFER (obstructive sleep apnea) Obstructive sleep apnea (adult) (pediatric) documented in this encounter [facility]* Diagnosis BMI 40.0-44.9, adult (HCC)- Primary Gastroesophageal reflux disease, unspecified whether esophagitis present Class 3 severe obesity with serious comorbidity and body mass index (BMI) of 40.0 to 44.9 in adult, unspecified obesity type ([facility]) [facility]* Diagnosis Chronic obstructive pulmonary disease, unspecified COPD type (HCC)- Primary Encounter for pre-operative respiratory clearance JENNIFER (obstructive sleep apnea) Obstructive sleep apnea (adult) (pediatric) Smoker Tobacco use disorder Morbid obesity (HCC) Morbid obesity [facility]* Diagnosis Morbid obesity due to excess calories (HCC)- Primary Hypertension, unspecified type [facility]* Diagnosis Chronic obstructive pulmonary disease, unspecified COPD type (HCC)- Primary Primary hypertension Unspecified essential hypertension Gastroesophageal reflux disease, unspecified whether esophagitis present Tobacco use disorder JENNIFER (obstructive sleep apnea) Obstructive sleep apnea (adult) (pediatric) High cholesterol Pure hypercholesterolemia Morbid obesity with BMI of 40.0-44.9, adult ([facility]) documented [facility]* Diagnosis Morbid obesity due to excess calories (HCC)- Primary Hypertension, unspecified type documented in this encounter [facility] note* Diagnosis Vitamin D deficiency- Primary Low vitamin B12 level High blood magnesium level Disorders of magnesium metabolism documented in this encounter [facility] note* Diagnosis Morbid obesity due to excess calories (HCC)- Primary Hypertension, unspecified type documented in this encounter [facility] note* Diagnosis Chronic obstructive pulmonary disease, unspecified COPD type (HCC)- Primary Primary hypertension Unspecified essential hypertension Gastroesophageal reflux disease, unspecified whether esophagitis present Tobacco use disorder JENNIFER (obstructive sleep apnea) Obstructive sleep apnea (adult) (pediatric) High cholesterol Pure hypercholesterolemia Morbid obesity with BMI of 40.0-44.9, adult (HCC) documented in this encounter [facility] note* Diagnosis Prediabetes- Primary Other abnormal glucose Gastroesophageal reflux disease, unspecified whether esophagitis present documented in this encounter [facility] note* Diagnosis Morbid obesity due to excess calories (HCC)- Primary Hypertension, unspecified type documented in this encounter [facility] note* Diagnosis Chronic obstructive pulmonary disease, unspecified COPD type (HCC)- Primary Primary hypertension Unspecified essential hypertension Gastroesophageal reflux disease, unspecified whether esophagitis present Tobacco use disorder JENNIFER (obstructive sleep apnea) Obstructive sleep apnea (adult) (pediatric) High cholesterol Pure hypercholesterolemia Morbid obesity with BMI of 40.0-44.9, adult (HCC) documented in this encounter [facility] Discharge instructions* Attachments The following attachments cannot be sent through Care Everywhere. * Upper GI Endoscopy Discharge Instructions (Vietnamese) [facility] Consultation (Routine) - Pending Review Specialty Diagnoses / Procedures Referred By Kori kirkpatrick Referred To Contact Pulmonary Disease / Pulmonology Diagnoses Chronic obstructive pulmonary disease, unspecified COPD type (HCC) Tobacco use disorder JENNIFER (obstructive sleep apnea) Morbid obesity with BMI of 40.0-44.9, adult (HCC) Procedures IN OFFICE/OUTPATIENT [facility] HIGH [facility] 60-74 MINUTES Brett Bernal PA [address] [place] [address] [facility] [address] [place] [address] Referral ID Status Reason Start Date Expiration Date Visits Requested Visits Authorized [id number] Pending Review Specialty Services Required 05/13/2023 05/12/2024 1 1 * Consultation (Elective) - Pending Review Specialty Diagnoses / Procedures Referred By Contac t Referred To Contact Cardiology Diagnoses Chronic obstructive pulmonary disease, unspecified COPD type (HCC) Primary hypertension Tobacco use disorder JENNIFER (obstructive sleep apnea) Morbid obesity with BMI of 40.0-44.9, adult (HCC) Procedures IN OFFICE/OUTPATIENT NEW HIGH MDM 60-74 MINUTES Brett Bernal PA [address] [place] [address] [facility] [address] [address] Referral ID Status Reason Start Date Expiration Date Visits Requested Visits Authorized [id number] Pending Review Specialty Services Required 05/13/2023 05/12/2024 [...] FoundDocuments on File Type Date Recorded Patient Oven Operator Expl anation Advance Directive(s) 01/22/2017 9:46 AM [...] Paul MD [address] [place] [address] Referral ID Status Reason Start Date Expiration Date V isits Requested Visits Authorized [id number] Incomplete 06/25/2023 12/22/2023 1 1 Specialty Diagnoses / Procedures Referred By Contac t Referred To Contact Kareem Hartmann MD [address] [place] [address] Referral ID Status Reason Start Date Expiration Date V isits Requested Visits Authorized [id number] Pending Review 1 1 Referral ID Status Reason Start Date Expiration Date V isits Requested Visits Authorized [id number] Pending Review 1 1 Referral ID Status Reason Start Date Expiration Date V isits Requested Visits Authorized [id number] Authorized 1 1 Referral ID Status Reason Start Date Expiration Date Visits Re quested Visits Authorized [id number] Closed 1 1 Additional Source Comments INFORMATION SOURCE (unrecogn ized section and content) DATE CREATED AUTHOR AUTHOR'S ORGANIZ ATION 01/04/2019 [facility] DATE CREATED AUTHOR AUTHOR'S ORGANIZ ATION 02/19/2019 [facility] DATE CREATED AUTHOR AUTHOR'S ORGANIZ ATION 10/04/2020 [employer] DATE CREATED AUTHOR AUTHOR'S ORGANIZ ATION 12/12/2020 [facility] DATE CREATED AUTHOR AUTHOR'S ORGANIZ ATION 04/17/2022 [facility] DATE CREATED AUTHOR AUTHOR'S ORGANIZ ATION 10/06/2023 [facility] Source Comments (unrecognize d section and content) In the event this informatio n is protected by the Federal Confidentiality of Alcohol and Drug Abuse Patient Records regulations: The Federal rules restrict any use of the information to criminally investigate or prosecute any alcohol or drug abuse patient.[facility] Reason for Visit (unrecogniz ed section and content) Reason Comments Medication Management Telehealth (Audio) Follow Up Reason Comments Follow Up For evaluation of mo od Telehealth (Audio) Reason Comments Surgical Consult New Surg Specialty Diagnoses / Procedures Referred By Kori kirkpatrick Referred To Contact Bariatric Surgery / Bariatrics Diagnoses Obesity, unspecified Procedures Dejah Heck, MORPHOLOGY TEACHER - HARBOR POLICE LAUNCH COMMANDER [address] [place] [address] [facility] [address] [place] [address] Referral ID Status Reason Start Date Expiration Date V isits Requested Visits Authorized [id number] Pending Review 03/17/2023 03/16/2024 1 1 Reason [...] Diagnoses Functional dyspepsia Functional dyspepsia [K30] Procedures IN EGD TRANSORAL BIOPSY SINGLE/MULTIPLE EGD WITH BIOPSY Susie Ledezma MD [address] [place] [address] [address] [place] [address] Referral ID Status Reason Start Date Expiration Date Visits Re quested Visits Authorized [id number] 1 1 Reason Comments Weight Loss D/E [...] Care Teams (unrecognized sec tion and content) Water Main Installer Helper Relationship Specialty Start Date End Date Leopoldo Baird [address] [place], [place] [address] PCP - General 12/05/20 Adelina Lin DO [address] [place] [address] Addiction Medicine 04/30/23 Dejah Drew MORPHOLOGY TEACHER - HARBOR POLICE LAUNCH COMMANDER [address] [place] [phone] Nurse Practitioner 04/30/23 Manjit Ga DO [address] [place] [address] Psychiatry 04/30/23 Water Main Installer Helper Relationship Specialty Start Date End Date Leopoldo Baird [address] [place], [place] [address] PCP - General 12/05/20 Adelina Lin DO [address] [place] [address] Addiction Medicine 04/30/23 Dejah Drew MORPHOLOGY TEACHER - HARBOR POLICE LAUNCH COMMANDER [address] [place] [phone] Nurse Practitioner 04/30/23 Manjit Ga DO [address] [place] [address] Psychiatry 04/30/23 Susie Ledezma MD [address] [place] [address] [address] [place] [address] Surgeon General Surgery 05/11/23 Water Main Installer Helper Relationship Specialty Start Date End Date Leopoldo Baird [address] [place], [place] [address] PCP - General 12/05/20 Adelina Lin DO [address] [place] [address] Addiction Medicine 04/30/23 Dejah Drew APRN - HARBOR POLICE LAUNCH COMMANDER [address] [place] [phone] Nurse Practitioner 04/30/23 Manjit Ga DO [address] [place] [address] Psychiatry 04/30/23 Susie Ledezma MD [address] [place] [address] [address] [place], [place] [id number] Surgeon General Surgery 05/11/23 Water Main Installer Helper Relationship Specialty Start Date End Date Leopoldo Baird [address] [facility] [address] [place] [phone] PCP - General Internal Medicine 06/03/23 Adelina Lin DO [address] [place] [phone] Addiction Medicine 04/30/23 Dejah Drew APRN - CNP [address] [place] [phone] Nurse Practitioner 04/30/23 Manjit Ga DO [address] [place] [address] Psychiatry 04/30/23 Susie Ledezma MD [address] [place] [address] Street [address] [place], [place] [id number] Surgeon General Surgery 05/11/23 Water Main Installer Helper Relationship Specialty Start Date End Date Leopoldo Baird [address] [facility] [address] [place] [address] PCP - General Internal Medicine 06/03/23 Adelina Lin DO [address] [place] [phone] Addiction Medicine 04/30/23 Dejah Drew APRN - HARBOR POLICE LAUNCH COMMANDER [address] [place] [address] Nurse Practitioner 04/30/23 Manjit Ga DO [address] [place] [address] Psychiatry 04/30/23 Susie Ledezma MD [address] [place] [address] Surgeon General Surgery 05/11/23 Water Main Installer Helper Relationship Specialty Start Date End Date Leopoldo Baird [address] [facility] [address] [place] [address] PCP - General Internal Medicine 06/03/23 Adelina Lin DO [address] [place] [address] Addiction Medicine 04/30/23 Dejah Drew APRN - HARBOR POLICE LAUNCH COMMANDER [address] [facility] [address] [place] [phone] Nurse Practitioner 04/30/23 Manjit Ga DO [address] [place] [address] Psychiatry 04/30/23 Susie Ledezma MD [address] [facility] [address] [place] [address] Surgeon General Surgery 05/11/23 Water Main Installer Helper Relationship Specialty Start Date End Date Leopoldo Baird [address] [facility] [address] [place] [address] PCP - General Internal Medicine 06/03/23 Adelina Lin DO [address] [place] [address] Addiction Medicine 04/30/23 Dejah Drew APRN - HARBOR POLICE LAUNCH COMMANDER [address] [place] [address] [address] [place] [address] Nurse Practitioner 04/30/23 Manjit Ga DO [facility] [place] [address] Psychiatry 04/30/23 Susie Ledezma MD [address] [place] [address] [address] [place] [address] Surgeon General Surgery 05/11/23 Water Main Installer Helper Relationship Specialty Start Date End Date AlvinohaileyVitaliymiramanda Saldana [address] [facility] [address] [place] [address] PCP - General Internal Medicine 06/03/23 Adelina Lin DO [address] [place] [address] Addiction Medicine 04/30/23 Dejah Drew APRN - HARBOR POLICE LAUNCH COMMANDER [address] [place] [address] [address] [place] [address] Nurse Practitioner 04/30/23 Manjit Ga DO [address] [place] [address] Psychiatry 04/30/23 Susie Ledezma MD [address] [place] [address] [address] [place], [place] [id number] Surgeon General Surgery 05/11/23 Water Main Installer Helper Relationship Specialty Start Date End Date Leopoldo Baird [address] [facility] [address] [place] [address] PCP - General Internal Medicine 06/03/23 Adelina Lin DO [address] [place] [address] Addiction Medicine 04/30/23 Dejah Drew APRN - PATRICIO [address] [place] [phone] Nurse Practitioner 04/30/23 Manjit Ga DO [address] [place] [address] Psychiatry 04/30/23 Susie Ledezma MD [address] [place] [address] [address] [place] [address] Surgeon General Surgery 05/11/23 Water Main Installer Helper Relationship Specialty Start Date End Date Leopoldo Baird PCP - General 12/05/20 06/02/23 Leopoldo Baird [address] [facility] [address] [place] [phone] PCP - General Internal Medicine 06/03/23 Adelina Lin DO [address] [place] [address] Addiction Medicine 04/30/23 Dejah Drew APRN - HARBOR POLICE LAUNCH COMMANDER [address] [place] [phone] Nurse Practitioner 04/30/23 Manjit Ga DO [address] [place] [address] Psychiatry 04/30/23 Susie Ledezma MD [address] [place] [address] [address] [place], [place] [address] Surgeon General Surgery 05/11/23 Water Main Installer Helper Relationship Specialty Start Date End Date Leopoldo Baird [address] [place] [address] PCP - General Internal Medicine 06/03/23 Adelina Lin DO [address] [place] [address] Addiction Medicine 04/30/23 Dejah Drew APRN - HARBOR POLICE LAUNCH COMMANDER [address] [place] [address] Nurse Practitioner 04/30/23 Manjit Ga DO [address] [place] [address] Psychiatry 04/30/23 Susie Ledezma MD [address] [place], [place] [id number] Surgeon General Surgery 05/11/23 Water Main Installer Helper Relationship Specialty Start Date End Date Nichole Bairdamanda Les [address] [facility] [address] [place] [address] PCP - General Internal Medicine 06/03/23 Adelina Lin DO [address] [place] [address] Addiction Medicine 04/30/23 Dejah Drew APRN - HARBOR POLICE LAUNCH COMMANDER [address] [facility] [address] [place] [address] Nurse Practitioner 04/30/23 Manjit Ga DO [address] [place] [address] Psychiatry 04/30/23 Susie Ledezma MD [address] [place] [address] [address] [place] [address] Surgeon General Surgery 05/11/23 Water Main Installer Helper Relationship Specialty Start Date End Date Leopoldo Baird [address] [facility] [address] [place] [address] PCP - General Internal Medicine 06/03/23 Adelina Lin DO [address] [place] [address] Addiction Medicine 04/30/23 Dejah Drew APRN - HARBOR POLICE LAUNCH COMMANDER [address] [facility] [address] [place] [address] Nurse Practitioner 04/30/23 Manjit Ga DO [address] [place] [address] Psychiatry 04/30/23 Susie Ledezma MD [address] [place] [address] [address] [place] [address] Surgeon General Surgery 05/11/23 Water Main Installer Helper Relationship Specialty Start Date End Date AlvinoNichole hartamanda Saldana [address] [place] [address] PCP - General Internal Medicine 06/03/23 Adelina Lin DO [address] [place] [address] Addiction Medicine 04/30/23 Dejah Drew APRN - HARBOR POLICE LAUNCH COMMANDER [address] [place] [address] [address] [place] [address] Nurse Practitioner 04/30/23 Manjit Ga DO [address] [place] [address] Psychiatry 04/30/23 Susie Ledezma MD [address] [place] [address] [address] [place] [address] Surgeon General Surgery 05/11/23 Water Main Installer Helper Relationship Specialty Start Date End Date AlvinoangeliVitaliy perezhughkadie Saldana [address] [facility] [address] [place] [address] PCP - General Internal Medicine 06/03/23 Adelina Lin DO [address] [place] [phone] Addiction Medicine 04/30/23 Dejah Drew APRN - HARBOR POLICE LAUNCH COMMANDER [address] [place] [address] [address] [place] [phone] Nurse Practitioner 04/30/23 Manjit Ga DO [address] [place] [address] Psychiatry 04/30/23 Susie Ledezma MD [address] [place] [address] [address] [place] [address] Surgeon General Surgery 05/11/23 Water Main Installer Helper Relationship Specialty Start Date End Date Leopoldo Baird PCP - General 12/05/20 06/02/23 Leopoldo Baird [address] [facility] [address] [place] [phone] PCP - General Internal Medicine 06/03/23 Adelina Lin DO [address] [place] [address] Addiction Medicine 04/30/23 Dejah Drew APRN - CNP [address] [facility] [address] [place] [phone] Nurse Practitioner 04/30/23 Manjit Ga DO [address] [place] [address] Psychiatry 04/30/23 Susie Ledezma MD [address] [place] [address] [address] [place] [address] Surgeon General Surgery 05/11/23 Water Main Installer Helper Relationship Specialty Start Date End Date Leopoldo Baird [address] [facility] [address] [place] [phone] PCP - General Internal Medicine 06/03/23 Adelina Lin DO [address] [place] [address] Addiction Medicine 04/30/23 Dejah Drew APRN - HARBOR POLICE LAUNCH COMMANDER [address] [place] [phone] Nurse Practitioner 04/30/23 Manjit Ga DO [address] [place] [address] Psychiatry 04/30/23 Susie Ledezma MD [address] [place] [address] [address] [place], [place] [id number] Surgeon General Surgery 05/11/23 Water Main Installer Helper Relationship Specialty Start Date End Date Leopoldo Baird [address] [place] [address] PCP - General Internal Medicine 06/03/23 Adelina Lin DO [address] [place] [address] Addiction Medicine 04/30/23 Dejah Drew MORPHOLOGY TEACHER - HARBOR POLICE LAUNCH COMMANDER [address] [place] [address] Nurse Practitioner 04/30/23 Manjit Ga DO [address] [place] [address] Psychiatry 04/30/23 Susie Ledezma MD [address] [place] [address] [address] [place], [place] [address] Surgeon General Surgery 05/11/23 Water Main Installer Helper Relationship Specialty Start Date End Date Leopoldo Baird PCP - General 12/05/20 06/02/23 [address] [facility] [address] [place] [id number] PCP - General Internal Medicine 06/03/23 Adelina Lin DO [address] [place] [phone] Addiction Medicine 04/30/23 Dejah Drew APRN - CNP [address] [facility] [address] [place] [phone] Nurse Practitioner 04/30/23 Manjit Ga DO [address] [place] [address] Psychiatry 04/30/23 Susie Ledezma MD [address] [place] [address] [address] [place] [address] Surgeon General Surgery 05/11/23 Continuous Active and [...] BE BASED ON THE PRIMARY CLINICAL RECORDS. [employer] provides no warranty or guarantee of the accuracy or completeness of information in this document.
[2023-10-10] MEDS: 0.9% Normal Saline (1000mL) 1,000 ML 100 ML IV ×2 (06:18→15:58)
[2023-10-10 06:59] LABS: Absolute Lymphocyte Count 1.57 X10^3/uL (0.83-4.51); Absolute Neutrophil Count 13.3 X10^3/uL (2.0-7.7); Basophil# 0.03 X10^3/uL; Basophil% 0.2 % (0-1); Eosinophil# 0.04 X10^3/uL; Eosinophils% 0.2 % (0-5); Hematocrit 36.3 % (37-47); Hemoglobin 12.5 g/dL (12.0-15.0); Lymphocyte # 1.57 X10^3/ul (0.83-4.51); Lymphocyte % 9.5 % (19-41); Mean Corp Hgb Conc 34.4 g/dL (32-36); Mean Corpuscular Hgb 31.2 pg (27.0-32.0); Mean Corpuscular Volume 90.5 fL (81-99); Mean Platelet Vol. 8.8 fl (6.2-12.0); Monocyte# 1.51 X10^3/uL; Monocyte% 9.1 % (0-10); NRBC Flagged by Analyzer 0 % (0-5); Neutrophil # 13.29 X10^3/uL (2.7-7.7); POSITIVE DIFFERENTIAL YES; Platelet Count 468 K/mm3 (150-450); RBC Distribution Width CV 13.6 % (11.6-14.6); RBC Distribution Width SD 45.7 fl (35.1-43.9); Red Blood Count 4.01 M/mm3 (4.2-5.4); White Blood Count 16.6 K/mm3 (4.4-11.0)
[2023-10-10 07:04] LABS: Differential Indicated SCAN CRITERIA MET
[2023-10-10 07:14] LABS: Bedside Glucose 99 mg/dL (74-106)
[2023-10-10 07:15] LABS: Osmolality, Serum 261 mOsm/KG (280-301)
[2023-10-10 07:17] LABS: Osmolality, Urine 155 mOsm/KG
[2023-10-10 07:38] LABS: ALB/GLOB Ratio 0.9 RATIO (0.9-2.4); AST(SGOT) 20 U/L (15-37); Alanine Aminotransfer ALT/SGPT 20 U/L (13-56); Albumin, Serum 2.9 g/dL (3.2-5.0); Alkaline Phosphatase 97 U/L (45-117); Anion Gap 7 (5-15); BUN 11 mg/dL (7-18); BUN/Creat Ratio 12.5 RATIO (10-20); Calcium,Total 8.9 mg/dL (8.5-10.1); Chloride 90 mmol/L (98-107); Creatinine, Serum 0.88 mg/dL (0.55-1.02); EST Glomerular Filtration Rate 67 mL/min (>60); Est Glom Filt Rate - Afr Amer 81 mL/min (>60); Estimated Creatinine Clearance 42.12 ml/min; Globulin 3.3 g/dL (2.2-4.2); Glucose 83 mg/dL (74-106); Phosphorus 2.7 mg/dL (2.5-4.9); Potassium 3.7 mmol/L (3.5-5.1); Protein, Total 6.2 g/dL (6.4-8.2); Sodium Level 125 mmol/L (136-145); Thyroid Stim Hormone (TSH) 1.98 uIU/mL (0.358-3.74)
[2023-10-10 07:45] LABS: Hemoglobin A1c 5.5 % (3.8-5.6)
[2023-10-10] MEDS: Divalproex (ER) 500 MG Tablet PO ×2 (08:28→21:02)
[2023-10-10] MEDS: Ascorbic Acid 500 MG Tablet PO (08:29)
[2023-10-10] MEDS: Vibegron 75 MG TABLET PO (08:29)
[2023-10-10] MEDS: Meloxicam 15 MG Tablet PO (08:29)
[2023-10-10] MEDS: Ferrous Sulfate 325 MG Tablet PO (08:30)
[2023-10-10] MEDS: Tolterodine Tartrate 2 MG CAP.SA PO (08:30)
[2023-10-10] MEDS: Calcium Carbonate 500 MG Tablet PO ×2 (08:30→18:30)
[2023-10-10] MEDS: Lactulose 20 GM/30 ML UDC PO (08:32)
[2023-10-10] MEDS: Enoxaparin 40 MG/0.4 ML Syringe SC ×2 (08:32→21:06)
[2023-10-10] MEDS: Miconazole Nitrate 43 GM Bottle 1 APPLIC TOPICAL ×2 (08:33→21:02)
--- NOTE | 2023-10-10 09:45 | NURSING ---
Spoke with daughter, she will bring patients [place] in this afternoon. All questions answered at this time.
[2023-10-10 10:14] LABS: Differential Comment SCANNED
[2023-10-10 11:37] LABS: Bedside Glucose 120 mg/dL (74-106)
--- NOTE | 2023-10-10 13:10 | CASEMGMT ---
MARIBELL DRAKE chart review: Patient was admitted 09/27-09/29/23 for fall and AMS. Patient was not taking Lactulose as prescribed. See MARIBELL DRAKE assesment 09/19/23. Patient was discharged home with [facility] and follow-up plans in place. Patient returned to [facility] ED on 10/10/23 for confusion. Patient was admitted for acute cystitis and hyyponatremia. MARIBELL DRAKE in to discuss readmission and discharge needs. Patient states she was taking medications as prescribed. Patient went to PCP appointment on 10/08/23. Patient states she has telehealth visit scheduled with high school math teacher on 10/22/23. Patient wishes to return home with resumption of [facility]. MARIBELL DRAKE placed resumption order and sent referral via [facility]. CM will continue to follow this patient and plan for a safe discharge.
[2023-10-10] MEDS: CLARIFY ORDER NOTE (15:59)
[2023-10-10] MEDS: CARIPRAZINE HCL 3 MG CAPSULE PO (18:30)
[2023-10-10] MEDS: Glucerna Shake 120 ML LIQUID PO (18:31)
[2023-10-10] MEDS: Atorvastatin Calcium 80 MG Tablet PO (21:02)
[2023-10-10] MEDS: lamoTRIgine 100 MG Tablet 200 MG PO (21:02)
[2023-10-10 22:02] LABS: Bedside Glucose 89 mg/dL (74-106)
[2023-10-11] MEDS: 0.9% Normal Saline (1000mL) 1,000 ML 100 ML IV ×3 (01:52→21:19)
[2023-10-11 02:40] VITALS: BP 108/71; PULSE 83; RESP 18; TEMP 36.4; O2SAT 94
[2023-10-11 02:41] VITALS: BP 108/71; PULSE 77; RESP 18; TEMP 36.4; O2SAT 94
[2023-10-11 03:02] VITALS: BMI 41.3
[2023-10-11 06:41] LABS: Bedside Glucose 98 mg/dL (74-106)
[2023-10-11 06:53] LABS: Absolute Lymphocyte Count 1.44 X10^3/uL (0.83-4.51); Absolute Neutrophil Count 6.1 X10^3/uL (2.0-7.7); Basophil# 0.05 X10^3/uL; Basophil% 0.6 % (0-1); Eosinophil# 0.07 X10^3/uL; Eosinophils% 0.8 % (0-5); Hematocrit 32.7 % (37-47); Hemoglobin 10.7 g/dL (12.0-15.0); Lymphocyte # 1.44 X10^3/ul (0.83-4.51); Lymphocyte % 17.1 % (19-41); Mean Corp Hgb Conc 32.7 g/dL (32-36); Mean Corpuscular Hgb 30.9 pg (27.0-32.0); Mean Corpuscular Volume 94.5 fL (81-99); Mean Platelet Vol. 8.7 fl (6.2-12.0); Monocyte# 0.64 X10^3/uL; Monocyte% 7.6 % (0-10); NRBC Flagged by Analyzer 0 % (0-5); Neutrophil # 6.05 X10^3/uL (2.7-7.7); Neutrophil % 72.1 % (47-70); Platelet Count 395 K/mm3 (150-450); RBC Distribution Width CV 14.2 % (11.6-14.6); RBC Distribution Width SD 48.4 fl (35.1-43.9); Red Blood Count 3.46 M/mm3 (4.2-5.4); White Blood Count 8.4 K/mm3 (4.4-11.0)
[2023-10-11 07:09] VITALS: O2SAT 93
[2023-10-11 07:31] LABS: Anion Gap 5 (5-15); BUN 6 mg/dL (7-18); BUN/Creat Ratio 8.5 RATIO (10-20); Calcium,Total 8.1 mg/dL (8.5-10.1); Chloride 102 mmol/L (98-107); Creatinine, Serum 0.71 mg/dL (0.55-1.02); EST Glomerular Filtration Rate 87 mL/min (>60); Est Glom Filt Rate - Afr Amer 105 mL/min (>60); Estimated Creatinine Clearance 37.06 ml/min; Glucose 90 mg/dL (74-106); Potassium 3.7 mmol/L (3.5-5.1); Sodium Level 133 mmol/L (136-145)
[2023-10-11 08:10] VITALS: BP 128/71; PULSE 88; RESP 14; TEMP 36.7; O2SAT 94
[2023-10-11] MEDS: CARIPRAZINE HCL 3 MG CAPSULE PO (08:11)
[2023-10-11] MEDS: Ascorbic Acid 500 MG Tablet PO (08:12)
[2023-10-11] MEDS: Lactulose 20 GM/30 ML UDC PO (08:12)
[2023-10-11] MEDS: lamoTRIgine 100 MG Tablet 200 MG PO (08:12)
[2023-10-11] MEDS: Tolterodine Tartrate 2 MG CAP.SA PO (08:12)
[2023-10-11] MEDS: Meloxicam 15 MG Tablet PO (08:13)
[2023-10-11] MEDS: Vibegron 75 MG TABLET PO (08:13)
[2023-10-11] MEDS: Calcium Carbonate 500 MG Tablet PO (08:13)
[2023-10-11] MEDS: Enoxaparin 40 MG/0.4 ML Syringe SC ×2 (08:13→21:19)
[2023-10-11] MEDS: Divalproex (ER) 500 MG Tablet PO ×2 (08:14→21:18)
--- NOTE | 2023-10-11 09:06 | PCM.PN.HOSP ---
Subjective Subjective Doing well, no issues overnight. Mentation improved with the reinitiation of lactulose which she is discontinued because of the bowel movements, explained to her that the bowel movements for the point of therapy Objective Data Objective Data Vital Signs: Vital Signs Temp Pulse Resp BP Pulse Ox O2 Del Method 98.1 F 88 14 128/71 H 94 Room Air 10/11/23 08:10 10/11/23 08:10 10/11/23 08:10 10/11/23 08:10 10/11/23 08:10 10/11/23 08:10 Oxygen Delivery Method Room Air Weight: 211 lb 10.3 oz Body Mass Index (BMI) 41.3 Intake & Output: Intake and Output for Last 24 Hours 10/10/23 10/11/23 10/12/23 03:59 03:59 03:59 Intake Total 2776.67 / 2776.67 150 / 150 Output Total 400 / 400 350 / 350 Balance 2376.67 / 2376.67 -200 / -200 Medical Nutrition Assessment Dietitian: Malnutrition Criteria Met Start: 10/10/23 13:58 Freq: Status: Active Protocol: Document 10/10/23 13:58 MONIQUE (Rec: 10/10/23 13:58 TASHI [id number]) Nutrition Malnutrition Evidence of Malnutrition Exists Yes Malnutrition (moderate): Acute Illness/Injury Evidenced By Suboptimal Energy Intake ( Moderate),Weight Loss (Severe) Clinical Problem Acute Disease or Injury Related Malnutrition Etiology related to ability to consume sufficient energy to meet estimated nutrient Signs/Symptoms as evidenced by significant weight loss of 8.3%, or 19lb, since 07/16/23 wt of 228lb (~3 months) and poor oral intakes of less than 75% of estimated nutrient needs for greater than 1 week. Status Active Problem Recommendation Dietitian Recommendations/Changes Changed diet to Cardiac - Calorie Controlled 1800kcal diet w/ hx of T2DM for blood sugar control. Pt agreeable to Glucerna, so will order Glucerna 120mL 4x/day w/ medpass to help increase oral intakes. If oral intakes remain poor, may recommend Regular diet for liberalization. Will continue to follow, monitor oral intakes and modify nutrition interventions as needed. Lab / Micro Data 10/11/23 06:30 10/11/23 06:30 Labs: Laboratory Results - last 24 hr 10/10/23 06:07: Differential Comment SCANNED, Diff Path Review February10/10/23 11:08: POC Glucose 120 H 10/10/23 20:58: POC Glucose 89 10/11/23 05:53: POC Glucose 98 10/11/23 06:30: WBC 8.4, RBC 3.46 L, Hgb 10.7 L, Hct 32.7 L, MCV 94.5, MCH 30.9, MCHC 32.7, RDW Std Deviation 48.4 H, RDW Coeff of Tami 14.2, Plt Count 395, MPV 8.7, Immature Gran % (Auto) 1.800 H, Neut % (Auto) 72.1 H, Lymph % (Auto) 17.1 L, [place]acier % (Auto) 7.6, Eos % (Auto) 0.8, Baso % (Auto) 0.6, Absolute Neuts (auto) 6.1, Absolute Lymphs (auto) 1.44, Nucleated RBC % 0, Sodium 133 L, Potassium 3.7, Chloride 102, Carbon Dioxide 26.0, Anion Gap 5, BUN 6 L, Creatinine 0.71, Estim Creat Clear Calc 37.06, Est GFR (MDRD) Af Amer 105, Est GFR (MDRD) Non-Af 87, BUN/Creatinine Ratio 8.5 L, Glucose 90, Calcium 8.1 L Micro: Microbiology 10/10/23 02:10 Nasal Secretion SARS-CoV-2 & FLU Antigen (Rapid) - Final Physical Exam Narrative General: Alert, Oriented x3, Cooperative, No apparent distress HEENT: Atraumatic, PERRLA, EOMI, Normocephalic Oral: Moist Mucosa Neck: Supple, No JVD Lungs: Diminished, Normal air movement, No rhonchi, No wheeze, No rales Cardiovascular: Regular rate, Regular Rhythm, Normal S1, Normal S2, No murmurs Abdomen: Soft, Non Tender, Non-Distended, No Hepato-splenomegaly Extremities: No edema, Capillary Refill Less than 3 Seconds Skin: No rashes, No breakdown Musculoskeletal: No Tenderness to Palpation of Joints or Extremities Neurological: Moves all extremities no focal deficits, Motor Exam 5/5 strength throughout, Sensory exam intact to light touch and pain Psych/Mental Status: Normal Affect, Appropriate Assessment & Plan Assessment/Plan (1) Hyponatremia: (2) UTI (urinary tract infection): QUALIFIERS: Urinary tract infection type: acute cystitis Hematuria presence: without hematuria Qualified Code(s): N30.00 - Acute cystitis without hematuria (3) Metabolic encephalopathy: PLAN: Plan 1. Acute UTI with metabolic encephalopathy ? Encephalopathy has resolved with initiation of lactulose which she had discontinued at home secondary to diarrhea ? Continue with IV antibiotics ? Urine cultures are pending 2. HTN/HLD ? Continue with her home blood pressure medications when stable ? Continue with her statin ? We will monitor make adjustments as necessary 3. History of seizure disorder with dissociative identity disorder and bipolar ? Continue with her home medications ? Stable 4. DM2/morbid obesity ? Sign scale insulin, will hold her home metformin ? Accu-Cheks ? We will monitor make adjustments as necessary ? A1c of 5.5 ? BMI 45.3, discussed lifestyle modifications DVT: Lovenox Charges/Coding Visit Charges Inpatient E&M: 63783 Subs Hosp L2
[2023-10-11] MEDS: Acetaminophen 325 MG Tablet 650 MG PO (10:38)
[2023-10-11 11:51] LABS: Bedside Glucose 119 mg/dL (74-106)
[2023-10-11] MEDS: Glucerna Shake 120 ML LIQUID PO ×3 (14:07→21:18)
[2023-10-11 14:09] VITALS: BP 147/73; PULSE 101; RESP 14; TEMP 36.7; O2SAT 93
[2023-10-11 16:46] LABS: Bedside Glucose 115 mg/dL (74-106)
[2023-10-11 20:10] VITALS: BP 137/78; PULSE 100; RESP 18; TEMP 36.9; O2SAT 94
[2023-10-11] MEDS: Miconazole Nitrate 43 GM Bottle 1 APPLIC TOPICAL (21:18)
[2023-10-11] MEDS: Atorvastatin Calcium 80 MG Tablet PO (21:18)
[2023-10-11] MEDS: Ceftriaxone 1 GM/50 ML BAG IV (21:18)
[2023-10-11 22:49] LABS: Bedside Glucose 121 mg/dL (74-106)
[2023-10-12] VITALS (8 sets, daily range): BP systolic 156–193; BP diastolic 83–90; PULSE 79–96; RESP 16–18; TEMP 36.5–36.9; O2SAT 92–95; BMI 41.5
[2023-10-12 06:19] LABS: Hematocrit 33.8 % (37-47); Hemoglobin 10.8 g/dL (12.0-15.0); Mean Corpuscular Hgb 30.7 pg (27.0-32.0); Mean Platelet Vol. 8.9 fl (6.2-12.0); POSITIVE COUNT YES; POSITIVE MORPHOLOGY YES; Platelet Count 455 K/mm3 (150-450); RBC Distribution Width CV 14.6 % (11.6-14.6); RBC Distribution Width SD 51.1 fl (35.1-43.9); Red Blood Count 3.52 M/mm3 (4.2-5.4); White Blood Count 6.2 K/mm3 (4.4-11.0)
[2023-10-12 06:40] LABS: Bedside Glucose 95 mg/dL (74-106)
[2023-10-12 06:53] LABS: Differential Indicated MANUAL DIFF
[2023-10-12 06:58] LABS: Anion Gap 3 (5-15); BUN 3 mg/dL (7-18); BUN/Creat Ratio 4.3 RATIO (10-20); Calcium,Total 8.1 mg/dL (8.5-10.1); Chloride 110 mmol/L (98-107); Creatinine, Serum 0.69 mg/dL (0.55-1.02); EST Glomerular Filtration Rate 89 mL/min (>60); Est Glom Filt Rate - Afr Amer 108 mL/min (>60); Estimated Creatinine Clearance 37.06 ml/min; Glucose 101 mg/dL (74-106); Potassium 3.7 mmol/L (3.5-5.1); Sodium Level 139 mmol/L (136-145)
[2023-10-12 07:28] LABS: Lymphocyte 22 % (19-41); Metamyelocyte 1 % (0-1); Monocyte 2 % (0-10); Neutrophil-Band 6 % (0-5); Neutrophil-Segmented 69 % (47-70); Platelet Estimate ADEQUATE (ADEQ); Red Cell Morphology NORM C+C NORMAL (NORM C&C); Total Cells Counted 100 (MANUAL DIFF)
[2023-10-12 07:29] LABS: Absolute Lymphocyte Count 1.36 X10^3/uL (0.83-4.51); Absolute Neutrophil Count 4.7 X10^3/uL (2.0-7.7)
[2023-10-12] MEDS: 0.9% Normal Saline (1000mL) 1,000 ML 100 ML IV ×2 (07:30→18:30)
[2023-10-12] MEDS: Calcium Carbonate 500 MG Tablet PO ×2 (07:31→17:10)
[2023-10-12] MEDS: Lactulose 20 GM/30 ML UDC PO (09:01)
[2023-10-12] MEDS: Enoxaparin 40 MG/0.4 ML Syringe SC ×2 (09:01→21:28)
[2023-10-12] MEDS: Vibegron 75 MG TABLET PO (09:02)
[2023-10-12] MEDS: Meloxicam 15 MG Tablet PO (09:02)
[2023-10-12] MEDS: Tolterodine Tartrate 2 MG CAP.SA PO (09:02)
[2023-10-12] MEDS: Ascorbic Acid 500 MG Tablet PO (09:02)
[2023-10-12] MEDS: Glucerna Shake 120 ML LIQUID PO ×3 (09:02→21:29)
[2023-10-12] MEDS: Divalproex (ER) 500 MG Tablet PO ×2 (09:03→21:29)
[2023-10-12] MEDS: Miconazole Nitrate 43 GM Bottle 1 APPLIC TOPICAL ×2 (09:03→21:29)
--- NOTE | 2023-10-12 09:10 | PN.HOSP_ITS ---
Subjective Subjective Doing well, no issues overnight Objective Data Objective Data Vital Signs: Vital Signs Temp Pulse Resp BP Pulse Ox O2 Del Method 98.2 F 89 16 156/90 H 94 Room Air 10/12/23 03:10 10/12/23 03:10 10/12/23 03:10 10/12/23 03:10 10/12/23 07:34 10/12/23 07:37 Oxygen Delivery Method Room Air Weight: 212 lb 8.41 oz Body Mass Index (BMI) 41.5 Intake & Output: Intake and Output for Last 24 Hours 10/11/23 10/12/23 10/13/23 03:59 03:59 03:59 Intake Total 2776.67 / 2776.67 2710 / 2710 1480 / 1480 Output Total 400 / 400 350 / 350 1200 / 1200 Balance 2376.67 / 2376.67 2360 / 2360 280 / 280 Medical Nutrition Assessment Dietitian: Malnutrition Criteria Met Start: 10/10/23 13:58 Freq: Status: Active Protocol: Document 10/10/23 13:58 MONIQUE (Rec: 10/10/23 13:58 TASHI [id number]) Nutrition Malnutrition Evidence of Malnutrition Exists Yes Malnutrition (moderate): Acute Illness/Injury Evidenced By Suboptimal Energy Intake ( Moderate),Weight Loss (Severe) Clinical Problem Acute Disease or Injury Related Malnutrition Etiology related to ability to consume sufficient energy to meet estimated nutrient Signs/Symptoms as evidenced by significant weight loss of 8.3%, or 19lb, since 07/16/23 wt of 228lb (~3 months) and poor oral intakes of less than 75% of estimated nutrient needs for greater than 1 week. Status Active Problem Recommendation Dietitian Recommendations/Changes Changed diet to Cardiac - Calorie Controlled 1800kcal diet w/ hx of T2DM for blood sugar control. Pt agreeable to Glucerna, so will order Glucerna 120mL 4x/day w/ medpass to help increase oral intakes. If oral intakes remain poor, may recommend Regular diet for liberalization. Will continue to follow, monitor oral intakes and modify nutrition interventions as needed. Lab / Micro Data 10/12/23 05:25 10/12/23 05:25 Labs: Laboratory Results - last 24 hr 10/11/23 11:31: POC Glucose 119 H 10/11/23 16:28: POC Glucose 115 H 10/11/23 21:16: POC Glucose 121 H 10/12/23 05:25: WBC 6.2, RBC 3.52 L, Hgb 10.8 L, Hct 33.8 L, MCV 96.0, MCH 30.7, MCHC 32.0, RDW Std Deviation 51.1 H, RDW Coeff of Tami 14.6, Plt Count 455 H, MPV 8.9, Neut % (Auto) Not Reportable, Absolute Neuts (auto) 4.7, Absolute Lymphs (auto) 1.36, Total Counted 100, Neutrophils % (Manual) 69, Band Neutrophils % 6 H, Lymphocytes % (Manual) 22, Monocytes % (Manual) 2, Metamyelocytes % 1, Diff Path Review February, Platelet Estimate ADEQUATE, RBC Morphology NORM C+C, Sodium 139, Potassium 3.7, Chloride 110 H, Carbon Dioxide 26.0, Anion Gap 3 L, BUN 3 L, Creatinine 0.69, Estim Creat Clear Calc 37.06, Est GFR (MDRD) Af Amer 108, Est GFR (MDRD) Non-Af 89, BUN/Creatinine Ratio 4.3 L, Glucose 101, Calcium 8.1 L 10/12/23 05:53: POC Glucose 95 Micro: Microbiology 10/10/23 05:10 Blood Culture (Wb) - Left Hand Blood Culture - Preliminary No growth in 48 hours. 10/10/23 05:10 Blood Culture (Wb) - Anticubital Left Blood Culture - Preliminary No growth in 48 hours. 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 10/10/23 02:10 Nasal Secretion SARS-CoV-2 & FLU Antigen (Rapid) - Final Physical Exam Narrative General: Alert, Oriented x3, Cooperative, No apparent distress HEENT: Atraumatic, PERRLA, EOMI, Normocephalic Oral: Moist Mucosa Neck: Supple, No JVD Lungs: Diminished, Normal air movement, No rhonchi, No wheeze, No rales Cardiovascular: Regular rate, Regular Rhythm, Normal S1, Normal S2, No murmurs Abdomen: Soft, Non Tender, Non-Distended, No Hepato-splenomegaly Extremities: No edema, Capillary Refill Less than 3 Seconds Skin: No rashes, No breakdown Musculoskeletal: No Tenderness to Palpation of Joints or Extremities Neurological: Moves all extremities no focal deficits, Motor Exam 5/5 strength throughout, Sensory exam intact to light touch and pain Psych/Mental Status: Normal Affect, Appropriate Assessment & Plan Assessment/Plan (1) Hyponatremia: (2) UTI (urinary tract infection): QUALIFIERS: Urinary tract infection type: acute cystitis Hematuria presence: without hematuria Qualified Code(s): N30.00 - Acute cystitis without hematuria (3) Metabolic encephalopathy: PLAN: Plan 1. Acute UTI with metabolic encephalopathy ? Encephalopathy has resolved with initiation of lactulose which she had discontinued at home secondary to diarrhea ? Continue with IV antibiotics ? Urine cultures with greater than 100,000 CFU of gram-negative rods 2. HTN/HLD ? Continue with her home blood pressure medications when stable ? Continue with her statin ? We will monitor make adjustments as necessary 3. History of seizure disorder with dissociative identity disorder and bipolar ? Continue with her home medications ? Stable 4. DM2/morbid obesity ? Sign scale insulin, will hold her home metformin ? Accu-Cheks ? We will monitor make adjustments as necessary ? A1c of 5.5 ? BMI 45.3, discussed lifestyle modifications DVT: Lovenox Charges/Coding Visit Charges Inpatient E&M: 11704 Subs Hosp L2
[2023-10-12 11:45] LABS: Bedside Glucose 129 mg/dL (74-106)
[2023-10-12 18:16] LABS: Bedside Glucose 107 mg/dL (74-106)
[2023-10-12] MEDS: hydrALAZINE 25 MG Tablet PO (18:31)
[2023-10-12] MEDS: Metoprolol(XL)Succ 25 MG Tablet PO (18:31)
[2023-10-12] MEDS: Metoprolol(XL)Succ 50 MG Tablet PO (18:31)
[2023-10-12] MEDS: Ceftriaxone 1 GM/50 ML BAG IV (20:39)
[2023-10-12 21:17] LABS: Bedside Glucose 109 mg/dL (74-106)
[2023-10-12] MEDS: Atorvastatin Calcium 80 MG Tablet PO (21:29)
[2023-10-12] MEDS: lamoTRIgine 100 MG Tablet 200 MG PO (21:29)
[2023-10-13 02:27] VITALS: BMI 43.0
[2023-10-13 03:15] VITALS: BP 147/81; PULSE 77; RESP 18; TEMP 36.8; O2SAT 95
[2023-10-13] MEDS: 0.9% Normal Saline (1000mL) 1,000 ML 100 ML IV (03:35)
[2023-10-13 03:59] VITALS: BP 147/81; PULSE 77; RESP 18; TEMP 36.8; O2SAT 95
[2023-10-13 07:01] LABS: Bedside Glucose 110 mg/dL (74-106)
[2023-10-13 09:11] VITALS: BP 163/80; PULSE 89; RESP 18; TEMP 36.6; O2SAT 94
[2023-10-13 09:15] VITALS: BP 163/80; PULSE 89
[2023-10-13] MEDS: Ferrous Sulfate 325 MG Tablet PO (09:15)
[2023-10-13] MEDS: hydrALAZINE 25 MG Tablet PO (09:15)
[2023-10-13] MEDS: Tolterodine Tartrate 2 MG CAP.SA PO (09:15)
[2023-10-13] MEDS: Lactulose 20 GM/30 ML UDC PO (09:15)
[2023-10-13] MEDS: Meloxicam 15 MG Tablet PO (09:15)
[2023-10-13] MEDS: Ascorbic Acid 500 MG Tablet PO (09:16)
[2023-10-13] MEDS: Vibegron 75 MG TABLET PO (09:16)
[2023-10-13] MEDS: Divalproex (ER) 500 MG Tablet PO (09:16)
[2023-10-13] MEDS: Calcium Carbonate 500 MG Tablet PO (09:16)
[2023-10-13] MEDS: Miconazole Nitrate 43 GM Bottle 1 APPLIC TOPICAL (09:20)
[2023-10-13 09:30] VITALS: PULSE 89
[2023-10-13] MEDS: Lisinopril 40 MG Tablet PO (09:30)
[2023-10-13] MEDS: Metoprolol(XL)Succ 50 MG Tablet PO (09:30)
--- NOTE | 2023-10-13 10:26 | PCM.DC ---
Discharge Instructions Diet Discharge Diet: Low fat / Low cholesterol Activity Discharge Activity: Return to Normal Activity Dressing / Incision Call your doctor if you observe: Fever of 101 or Higher, Shortness of breath, Dizziness, Fainting spells, Swelling in the ankles, Chest pain and Increased palpitations (irregular heartbeat) Follow Up Care Test Results: Test results from this visit will be discussed in further detail at your follow-up appointment, if applicable. Discharge Plan Admission Admit Date/Time: 10/10/23 04:49 Attending Provider: Angelito Shah Primary Care Provider: Esperanza Baird Consulting Providers: Marlon Padgett Discharge Orders/Prescriptions Prescriptions: New cefdinir 300 mg capsule 300 mg PO BID 3 Days Qty: 6 0RF Continued acetaminophen [Tylenol Arthritis Pain] 650 mg tablet extended release 650 mg PO Q12H PRN (Reason: pain) buprenorphine 100 mg/0.5 mL solution, extended rel syringe 100 mg subcut QMONTH ascorbic acid (vitamin C) 500 mg capsule 500 mg PO DAILY (DME) Incentive Spirometer See Rx Instructions .Route .MEDSUPPLY Qty: 1 0RF Rx Instructions: As directed ferrous sulfate 324 mg (65 mg iron) tablet,delayed release (DR/EC) 324 mg PO Q OTHER DAY Qty: 90 2RF divalproex 500 mg tablet extended release 24 hr 500 mg PO BID Qty: 60 7RF lactulose 10 gram/15 mL solution 20 g PO DAILY Qty: 946 7RF Myrbetriq 50 mg tablet extended release 24 hr 50 mg PO Q24H metformin 500 mg tablet extended release 24 hr 500 mg PO BID Qty: 60 3RF Prolia 60 mg/mL syringe 60 mg subcut [id number] Qty: 1 2RF hydralazine 25 mg tablet 25 mg PO BID Qty: 60 0RF Rx Instructions: morning and night fesoterodine 4 mg tablet extended release 24 hr 4 mg PO DAILY meloxicam 15 mg tablet 15 mg PO DAILY lamotrigine 200 mg tablet 200 mg PO QHS Rx Instructions: TAKE ONE TABLET BY MOUTH AT BEDTIME Vraylar 3 mg capsule 3 mg PO Q24H Rx Instructions: TAKE ONE CAPSULE BY MOUTH EVERY DAY hydralazine 50 mg tablet 50 mg PO TID Qty: 90 1RF (DME) Handicap Placard See Rx Instructions .ROUTE .MEDSUPPLY Qty: 1 0RF Rx Instructions: As directed, length of time 5 years (DME) POCKET CHAMBER Spacer See Rx Instructions .ROUTE .MEDSUPPLY Qty: 1 0RF Rx Instructions: As directed metoprolol succinate 50 mg tablet extended release 24 hr 50 mg PO DAILY Qty: 90 3RF Rx Instructions: Take with 25 mg for a total daily dose of 75 mg metoprolol succinate 25 mg tablet extended release 24 hr 25 mg PO QHS Qty: 90 2RF rosuvastatin 40 mg tablet 40 mg PO DAILY Qty: 90 2RF miconazole nitrate [Desenex] 2 % powder 1 applic topical BID Qty: 85 4RF (DME) FreeStyle Lite Strips Strip See Rx Instructions .MEDSUPPLY Qty: 100 3RF Rx Instructions: check blood glucose daily for type 2 DM (DME) blood-glucose meter [FreeStyle Lite Meter] Kit See Rx Instructions .MEDSUPPLY Qty: 1 0RF Rx Instructions: As directed, check blood glucose daily for type 2 DM (DME) lancets [FreeStyle Lancets] 28 gauge misc See Rx Instructions .MEDSUPPLY Qty: 200 3RF Rx Instructions: check blood glucose daily for type 2 DM calcium carbonate 600 mg calcium (1,500 mg) tablet 600 mg PO BID Qty: 180 3RF lisinopril 40 mg tablet 40 mg PO QAM Qty: 90 2RF nicotine 21 mg/24 hr patch 24 hour 1 patch transdermal Q24H Qty: 28 2RF Hold Instructions: Pt has been DC'd Referrals / Follow Up: Esperanza Baird MD [Primary Care Provider] - Within 1 Week Disposition Disposition (needs filled in before D/C Order can be placed): Home, Self Care
--- NOTE | 2023-10-13 10:44 | CASEMGMT ---
Addendum entered by April Valderrama 10/13/23 11:49: Per Emilia, they will see pt on . MARIBELL DRAKE to room. Pt sitting up in chair. She was made aware JONATHAN will be . She states she is and lives alone but her ex- and her are still close and he checks on her about every other day. She also reports her family is supportive. She denies having other discharge planning needs or concerns. Jerald ESCOBAR RN, CM Original Note: MARIBELL DRAKE NOTE: Pt being discharged. MARIBELL DRAKE placed a call to Emilia @ [facility] and she was made aware. Jerald ESCOBAR RN, CM
--- NOTE | 2023-10-13 10:45 | DS.PCM_ITS ---
Providers Date of Admission: 10/10/23 Primary Care Physician: Dr. Esperanza Baird MD Reason For Visit: ACUTE CYSTITIS, HYPONTREMIA OF 124 & METABOLIC Diagnosis Discharge Diagnosis (1) Hyponatremia: Status: Acute Code(s): E87.1 - Hypo-osmolality and hyponatremia (2) UTI (urinary tract infection): Status: Acute Code(s): N39.0 - Urinary tract infection, site not specified Qualifiers: Urinary tract infection type: acute cystitis Hematuria presence: without hematuria Qualified Code(s): N30.00 - Acute cystitis without hematuria (3) Metabolic encephalopathy: Status: Acute Code(s): G93.41 - Metabolic encephalopathy Medications at Discharge Home Medications acetaminophen 650 mg tablet,extended release (Tylenol Arthritis Pain) 650 mg PO Q12H PRN pain 01/23/21 Handicap Placard #1 ea 02/07/21 inhalational spacing device (POCKET CHAMBER spacer) #1 ea 06/26/21 buprenorphine 100 mg/0.5 mL solution,exten.rel.subcutaneous syringe 100 mg subcut QMONTH WITHDRAWAL SYMPTOM CONTROL 08/07/21 ascorbic acid (vitamin C) 500 mg capsule 500 mg PO DAILY vitamin 07/08/22 Incentive Spirometer #1 ea 08/05/22 ferrous sulfate 324 mg (65 mg iron) tablet,delayed release 324 mg PO Q OTHER DAY supplement #90 tabs 11/17/22 metoprolol succinate 50 mg tablet,extended release 24 hr 50 mg PO DAILY blood pressure #90 tabs 01/05/23 mirabegron 50 mg tablet,extended release 24 hr (Myrbetriq) 50 mg PO Q24H diabetic 05/07/23 metoprolol succinate 25 mg tablet,extended release 24 hr 25 mg PO QHS blood perssure #90 tabs 05/08/23 rosuvastatin 40 mg tablet 40 mg PO DAILY cholesterol #90 tabs 05/08/23 miconazole nitrate 2 % topical powder (Desenex) 1 applic topical BID skin health #85 grams 07/10/23 blood sugar diagnostic (FreeStyle Lite Strips) #100 ea 07/15/23 blood-glucose meter (FreeStyle Lite Meter kit) #1 ea 07/15/23 lancets 28 gauge (FreeStyle Lancets) #200 ea 07/15/23 divalproex 500 mg tablet,extended release 24 hr 500 mg PO BID seizure #60 tabs 07/21/23 lactulose 10 gram/15 mL oral solution 20 g (30 mL) PO DAILY laxative #946 mL 07/22/23 calcium carbonate 600 mg calcium (1,500 mg) tablet 600 mg PO BID supplement #180 tabs 08/06/23 lisinopril 40 mg tablet 40 mg PO QAM blood pressure #90 tabs 08/28/23 nicotine 21 mg/24 hr daily transdermal patch 1 patch transdermal Q24H to stop smoking #28 ea 09/16/23 cariprazine 3 mg capsule (Vraylar) 3 mg PO Q24H depression 09/19/23 fesoterodine 4 mg tablet,extended release 24 hr 4 mg PO DAILY bladder spasms 09/19/23 lamotrigine 200 mg tablet 200 mg PO QHS depression 09/19/23 meloxicam 15 mg tablet 15 mg PO DAILY pain 09/19/23 hydralazine 50 mg tablet 50 mg PO TID blood pressure #90 tabs 09/21/23 denosumab 60 mg/mL subcutaneous syringe (Prolia) 60 mg subcut [id number] bone health #1 mL 09/25/23 metformin 500 mg tablet,extended release 24 hr 500 mg PO BID diabetes #60 tabs 09/25/23 hydralazine 25 mg tablet 25 mg PO BID #60 tabs 10/08/23 cefdinir 300 mg capsule 300 mg PO BID 3 days #6 caps 10/13/23 Hospital Course Operations None Procedures None Summary of Care Provided Minutes Spent on Discharge: 32 Hospital Course: Per HPI:ALEXIA POWELL, is a 73 F with a past medical history of essential hypertension, hyperlipidemia, morbid obesity; with BMI 45.3 this admission, diabetes mellitus type 2; of unknown control, history of seizure disorder; on di valproex, history of basal cell carcinoma, history of actinic keratoses, remote history of tobacco abuse (quit 20 years ago) overactive bladder, chronic venous insufficiency in the bilateral lower extremities, chronic anemia, dissociative identity disorder, bipolar disorder, RA, osteoarthritis; with chronic back pain and frequent UTIs who presents to [facility] ER complaining of confusion and malaise. Ms. Powell is not a fully reliable historian at this time so information was primarily gathered from chart, medical staff and computer. According to the records she reported that her confusion began on the evening of 10/09/2023 with her life alert machine falling off her table and breaking which summoned EMS. She denies associated fever, chills, nausea, vomiting, chest pain, shortness of breath, dysuria or hematuria but she does know that she is confused and she is unsure of the date but she is oriented to person and place. In the ER her urinalysis was grossly positive for acute cystitis; without hematuria corresponding leukocytosis of 17.3 present on admission complicated by laboratory evidence of moderate hyponatremia of 124 mmol/L present on admission (with a baseline of approximately 127-131 on her last 3 visits) compounded by clinical evidence of metabolic encephalopathy and she was then admitted to the general medical floor for ongoing care for stay that is expected to be greater than 48 hours. Hospital course: 1. Acute UTI due to Klebsiella pneumonia with metabolic encephalopathy ? Encephalopathy has resolved with initiation of lactulose which she had discontinued at home secondary to diarrhea ? Continue with IV antibiotics 10/13/2023: She is much improved, her encephalopathy is completely resolved. Urine cultures came back positive for Klebsiella pneumonia that is sensitive to Rocephin therefore she will be discharged on 3 more days of p.o. cefdinir twice daily of note her blood cultures are negative x 48 hours. I discussed with her the plan for discharge today she expressed understanding of the risk and benefit s of going home and would like to go home today. I recommend that she follow-up with her PCP in 3 to 5 days as an outpatient. She can resume all of her home medications on discharge. 2. HTN/HLD ? Continue with her home blood pressure medications when stable ? Continue with her statin ? We will monitor make adjustments as necessary 3. History of seizure disorder with dissociative identity disorder and bipolar ? Continue with her home medications ? Stable 4. DM2/morbid obesity ? Sign scale insulin, will hold her home metformin ? Accu-Cheks ? We will monitor make adjustments as necessary ? A1c of 5.5 ? BMI 45.3, discussed lifestyle modifications Physical Exam Narrative General: Alert, Oriented x3, Cooperative, No apparent distress HEENT: Atraumatic, PERRLA, EOMI, Normocephalic Oral: Moist Mucosa Neck: Supple, No JVD Lungs: Diminished, Normal air movement, No rhonchi, No wheeze, No rales Cardiovascular: Regular rate, Regular Rhythm, Normal S1, Normal S2, No murmurs Abdomen: Soft, Non Tender, Non-Distended, No Hepato-splenomegaly Extremities: No edema, Capillary Refill Less than 3 Seconds Skin: No rashes, No breakdown Musculoskeletal: No Tenderness to Palpation of Joints or Extremities Neurological: Moves all extremities no focal deficits, Motor Exam 5/5 strength throughout, Sensory exam intact to light touch and pain Psych/Mental Status: Normal Affect, Appropriate Medical Records Data Medical Nutrition Assessment Dietitian: Malnutrition Criteria Met Start: 10/10/23 13:58 Freq: Status: Active Protocol: Document 10/10/23 13:58 [facility] (Rec: 10/10/23 13:58 [facility] [id number]) Nutrition Malnutrition Evidence of Malnutrition Exists Yes Malnutrition (moderate): Acute Illness/Injury Evidenced By Suboptimal Energy Intake ( Moderate),Weight Loss (Severe) Clinical Problem Acute Disease or Injury Related Malnutrition Etiology related to ability to consume sufficient energy to meet estimated nutrient Signs/Symptoms as evidenced by significant weight loss of 8.3%, or 19lb, since 07/16/23 wt of 228lb (~3 months) and poor oral intakes of less than 75% of estimated nutrient needs for greater than 1 week. Status Active Problem Recommendation Dietitian Recommendations/Changes Changed diet to Cardiac - Calorie Controlled 1800kcal diet w/ hx of T2DM for blood sugar control. Pt agreeable to Glucerna, so will order Glucerna 120mL 4x/day w/ medpass to help increase oral intakes. If oral intakes remain poor, may recommend Regular diet for liberalization. Will continue to follow, monitor oral intakes and modify nutrition interventions as needed. Weight / BMI Weight Weight: 220 lb 3.869 oz Body Mass Index (BMI) 43.0 ABG / Lab / Microbiology Data 10/12/23 05:25 10/12/23 05:25 Laboratory: Laboratory Results - last 24 hr 10/12/23 11:08: POC Glucose 129 H 10/12/23 17:03: POC Glucose 107 H 10/12/23 20:38: POC Glucose 109 H 10/13/23 06:37: POC Glucose 110 H Microbiology: Microbiology 10/10/23 02:10 Urine, Clean Catch Urine Culture - Final Klebsiella pneumoniae sp pneum 10/10/23 05:10 Blood Culture (Wb) - Left Hand Blood Culture - Preliminary No growth in 48 hours. 10/10/23 05:10 Blood Culture (Wb) - Anticubital Left Blood Culture - Prelim inary No growth in 48 hours. 10/10/23 02:10 Nasal Secretion SARS-CoV-2 & FLU Antigen (Rapid) - Final D/C Instructions Discharge Diet: Low fat / Low cholesterol Call your doctor if you observe: Fever of 101 or Higher, Shortness of breath, Dizziness, Fainting spells, Swelling in the ankles, Chest pain and Increased palpitations (irregular heartbeat) Meaningful Use Info Meaningful Use Diagnoses (Choose all that apply): None applicable Discharge Plan Admission Admit Date/Time: 10/10/23 04:49 Attending Provider: Angelito Shah Primary Care Provider: Esperanza Baird Consulting Providers: Marlon Padgett Discharge Orders/Prescriptions Prescriptions: New cefdinir 300 mg capsule 300 mg PO BID 3 Days Qty: 6 0RF Continued acetaminophen [Tylenol Arthritis Pain] 650 mg tablet extended release 650 mg PO Q12H PRN (Reason: pain) buprenorphine 100 mg/0.5 mL solution, extended rel syringe 100 mg subcut QMONTH ascorbic acid (vitamin C) 500 mg capsule 500 mg PO DAILY (DME) Incentive Spirometer See Rx Instructions .Route .MEDSUPPLY Qty: 1 0RF Rx Instructions: As directed ferrous sulfate 324 mg (65 mg iron) tablet,delayed release (DR/EC) 324 mg PO Q OTHER DAY Qty: 90 2RF divalproex 500 mg tablet extended release 24 hr 500 mg PO BID Qty: 60 7RF lactulose 10 gram/15 mL solution 20 g PO DAILY Qty: 946 7RF Myrbetriq 50 mg tablet extended release 24 hr 50 mg PO Q24H metformin 500 mg tablet extended release 24 hr 500 mg PO BID Qty: 60 3RF Prolia 60 mg/mL syringe 60 mg subcut [id number] Qty: 1 2RF hydralazine 25 mg tablet 25 mg PO BID Qty: 60 0RF Rx Instructions: morning and night fesoterodine 4 mg tablet extended release 24 hr 4 mg PO DAILY meloxicam 15 mg tablet 15 mg PO DAILY lamotrigine 200 mg tablet 200 mg PO QHS Rx Instructions: TAKE ONE TABLET BY MOUTH AT BEDTIME Vraylar 3 mg capsule 3 mg PO Q24H Rx Instructions: TAKE ONE CAPSULE BY MOUTH EVERY DAY hydralazine 50 mg tablet 50 mg PO TID Qty: 90 1RF (DME) Handicap Placard See Rx Instructions .ROUTE .MEDSUPPLY Qty: 1 0RF Rx Instructions: As directed, length of time 5 years (DME) POCKET CHAMBER Spacer See Rx Instructions .ROUTE .MEDSUPPLY Qty: 1 0RF Rx Instructions: As directed metoprolol succinate 50 mg tablet extended release 24 hr 50 mg PO DAILY Qty: 90 3RF Rx Instructions: Take with 25 mg for a total daily dose of 75 mg metoprolol succinate 25 mg tablet extended release 24 hr 25 mg PO QHS Qty: 90 2RF rosuvastatin 40 mg tablet 40 mg PO DAILY Qty: 90 2RF miconazole nitrate [Desenex] 2 % powder 1 applic topical BID Qty: 85 4RF (DME) FreeStyle Lite Strips Strip See Rx Instructions .MEDSUPPLY Qty: 100 3RF Rx Instructions: check blood glucose daily for type 2 DM (DME) blood-glucose meter [FreeStyle Lite Meter] Kit See Rx Instructions .MEDSUPPLY Qty: 1 0RF Rx Instructions: As directed, check blood glucose daily for type 2 DM (DME) lancets [FreeStyle Lancets] 28 gauge misc See Rx Instructions .MEDSUPPLY Qty: 200 3RF Rx Instructions: check blood glucose daily for type 2 DM calcium carbonate 600 mg calcium (1,500 mg) tablet 600 mg PO BID Qty: 180 3RF lisinopril 40 mg tablet 40 mg PO QAM Qty: 90 2RF nicotine 21 mg/24 hr patch 24 hour 1 patch transdermal Q24H Qty: 28 2RF Hold Instructions: Pt has been DC'd Referrals / Follow Up: Esperanza Baird MD [Primary Care Provider] - Within 1 Week Disposition Disposition (needs filled in before D/C Order can be placed): Home Health Service Charges/Coding Visit Charges Inpatient E&M: 14692 Disch Hosp >30min
[2023-10-13 11:43] LABS: Bedside Glucose 126 mg/dL (74-106)
[2023-10-13 13:38] LABS: Pathologist Review Reviewed
[2023-10-13 13:41] LABS: Pathologist Review Reviewed
== END 2023-10-13 12:29 | disposition home health service (06) | DRG 689 ==
LOC: ED 04:48 → PCU 04:59
PROVIDERS: Admitting Provider Internal Medicine; Emergency Provider Emergency Medicine; PCP Internal Medicine; Visit Provider Family Medicine
DX: N30.00 Acute cystitis without hematuria (principal); G93.41 Metabolic encephalopathy; E44.0 Moderate protein-calorie malnutrition; E87.1 Hypo-osmolality and hyponatremia; Z68.42 Body mass index [BMI] 45.0-49.9, adult; E11.59 Type 2 diabetes mellitus with other circulatory complications; E66.01 Morbid (severe) obesity due to excess calories; B96.1 Klebsiella pneumoniae [K. pneumoniae] as the cause of diseases classified elsewhere; F31.9 Bipolar disorder, unspecified; G40.909 Epilepsy, unspecified, not intractable, without status epilepticus; J44.9 Chronic obstructive pulmonary disease, unspecified; I10 Essential (primary) hypertension; I87.2 Venous insufficiency (chronic) (peripheral); E78.5 Hyperlipidemia, unspecified; M19.90 Unspecified osteoarthritis, unspecified site; Z87.891 Personal history of nicotine dependence; Z79.84 Long term (current) use of oral hypoglycemic drugs
CPT/HCPCS: 36415; 70450; 71046; 80048; 80053; 80164; 81001; 82962; 83036; 83605; 83735; 83930; 83935; 84100; 84443; 84484; 85025; 87040; 87077; 87086; 87088; 87186; 87428; 93005; 97116; 97162; 97166; 97530; 97535; 97802; 99284; 99406; J7030; A4216

== ENCOUNTER 2023-10-16 19:34 | Inpatient (IN) | payer MEDICARE, MEDICAID, SELFPAY ==
[2023-10-16 19:36] VITALS: BP 181/97; PULSE 82; RESP 16; TEMP 36.2; O2SAT 93; BMI 41.4
--- NOTE | 2023-10-16 19:45 | EDS_ITS ---
HPI History of Present Illness Chief Complaint: Alt LOC [facility] Medical History Abdominal pain Actinic keratoses Anemia Arthritis Atypical chest pain Back problem Basal cell carcinoma of right forehead Basal cell carcinoma of right medial cheek Basal cell carcinoma of upper lip Benign neoplasm of skin of cheek Bilateral lower extremity edema Bladder disease Cancer COPD (chronic obstructive pulmonary disease) Cutaneous candidiasis DDD (degenerative disc disease) Debility Dermatitis Diabetes Dietary restriction Dissociative identity disorder Dizziness Drug abuse Flu vaccine need Frequent falls Gastric reflux Hemangioma of face Hepatitis High cholesterol History of edema History of stress test History of UTI Hypertension Injury of back Injury of head and neck Intertrigo Intradermal nevus Kidney disease Kidney failure Left ankle pain Left wrist fracture Loose, teeth Low iron Manic episode Morbid obesity Multiple personalities Neoplasm of skin of eyelid Neoplasm of skin of nose Neurofibroma of neck Obesity (BMI 30-39.9) Osteoarthritis Osteoporosis Panic attacks Prediabetes Primary osteoarthritis, left shoulder Rib pain on right side Seizures Shortness of breath on exertion Substance abuse Tumors Type 2 diabetes mellitus Urinary incontinence Venous insufficiency of both lower extremities Walker as ambulation aid Wears glasses Weight gain Home Medications acetaminophen 650 mg tablet,extended release (Tylenol Arthritis Pain) 650 mg PO Q12H PRN pain 01/23/21 [History Last Taken Unknown] Handicap Placard #1 ea 02/07/21 [Rx Last Taken Unknown] inhalational spacing device (POCKET CHAMBER spacer) #1 ea 06/26/21 [Rx Last Taken Unknown] buprenorphine 100 mg/0.5 mL solution,exten.rel.subcutaneous syringe 100 mg subcut QMONTH WITHDRAWAL SYMPTOM CONTROL 08/07/21 [History Last Taken 09/17/23] ascorbic acid (vitamin C) 500 mg capsule 500 mg PO DAILY vitamin 07/08/22 [History Last Taken Unknown] Incentive Spirometer #1 ea 08/05/22 [Rx Last Taken Unknown] ferrous sulfate 324 mg (65 mg iron) tablet,delayed release 324 mg PO Q OTHER DAY supplement #90 tabs 11/17/22 [Rx Last Taken Unknown] metoprolol succinate 50 mg tablet,extended release 24 hr 50 mg PO DAILY blood pressure #90 tabs 01/05/23 [Rx Last Taken Unknown] mirabegron 50 mg tablet,extended release 24 hr (Myrbetriq) 50 mg PO Q24H diabetic 05/07/23 [History Last Taken Unknown] metoprolol succinate 25 mg tablet,extended release 24 hr 25 mg PO QHS blood perssure #90 tabs 05/08/23 [Rx Last Taken Unknown] rosuvastatin 40 mg tablet 40 mg PO DAILY cholesterol #90 tabs 05/08/23 [Rx Last Taken Unknown] miconazole nitrate 2 % topical powder (Desenex) 1 applic topical BID skin health #85 grams 07/10/23 [Rx Last Taken Unknown] blood sugar diagnostic (FreeStyle Lite Strips) #100 ea 07/15/23 [Rx Last Taken Unknown] blood-glucose meter (FreeStyle Lite Meter kit) #1 ea 07/15/23 [Rx Last Taken Unknown] lancets 28 gauge (FreeStyle Lancets) #200 ea 07/15/23 [Rx Last Taken Unknown] divalproex 500 mg tablet,extended release 24 hr 500 mg PO BID seizure #60 tabs 07/21/23 [Rx Last Taken Unknown] calcium carbonate 600 mg calcium (1,500 mg) tablet 600 mg PO BID supplement #180 tabs 08/06/23 [Rx Last Taken Unknown] lisinopril 40 mg tablet 40 mg PO QAM blood pressure #90 tabs 08/28/23 [Rx Last Taken Unknown] nicotine 21 mg/24 hr daily transdermal patch 1 patch transdermal Q24H to stop smoking #28 ea 09/16/23 [Rx Last Taken Unknown] cariprazine 3 mg capsule (Vraylar) 3 mg PO Q24H depression 09/19/23 [History Last Taken Unknown] fesoterodine 4 mg tablet,extended release 24 hr 4 mg PO DAILY bladder spasms 09/19/23 [History Last Taken Unknown] lamotrigine 200 mg tablet 200 mg PO QHS depression 09/19/23 [History Last Taken Unknown] meloxicam 15 mg tablet 15 mg PO DAILY pain 09/19/23 [History Last Taken Unknown] hydralazine 50 mg tablet 50 mg PO TID blood pressure #90 tabs 09/21/23 [Rx Last Taken Unknown] denosumab 60 mg/mL subcutaneous syringe (Prolia) 60 mg subcut [id number] bone health #1 mL 09/25/23 [Rx Last Taken Unknown] metformin 500 mg tablet,extended release 24 hr 500 mg PO BID diabetes #60 tabs 09/25/23 [Rx Last Taken Unknown] lactulose 10 gram/15 mL oral solution 10 g (15 mL) PO BID laxative #946 mL 10/14/23 [Rx Last Taken Unknown] Allergy/AdvReac Type Severity Reaction Status Date / Time iloperidone [From Fanapt] Allergy Severe Other Verified 10/16/23 19:38 paliperidone [From Invega] Allergy Severe increased Verified 10/16/23 19:38 psychiatric symptoms lurasidone [From Latuda] Allergy Other Verified 10/16/23 19:38 trazodone AdvReac Severe Other Verified 10/16/23 19:38 theophylline AdvReac Other Verified 10/16/23 19:38 Family History Brother Colon cancer Lung cancer Aunt Obesity Sister Obesity Mother Rheumatoid arthritis Father Alzheimer disease Brother Alzheimer disease Surgical History H/O hernia repair H/O: hysterectomy History of 3 sections History of basal cell carcinoma excision History of History of carpal tunnel surgery History of cholecystectomy History of colonoscopy History of endoscopy History of excision of lesion History of hernia repair Social History Smoking Status: Former smoker Tobacco: How many years used: 20 how long ago did patient quit smoking: second hand exposure: No alcohol intake: never substance use type: former substance user Date of last use: Cocaine what type of physical activity do you participate in: none vince/faith: Catholic seatbelt use: always EXAM Physical Exam Const Vital Signs: 10/16/23 19:36 10/16/23 21:35 10/16/23 22:49 Temperature 97.1 F L Temperature Source Temporal Pulse Rate 82 85 80 Respiratory Rate 16 22 H 16 Blood Pressure 181/97 H 210/108 H 197/102 H Blood Pressure Mean 125 142 133 Pulse Ox 93 95 93 Oxygen Delivery Method Room Air Room Air 10/16/23 22:49 Temperature 98.2 F Temperature Source Temporal Pulse Rate 78 Respiratory Rate 12 Blood Pressure 197/102 H Blood Pressure Mean 133 Pulse Ox 93 Oxygen Delivery Method Room Air MDM MDM MDM Narrative Medical decision making narrative: HISTORY OF PRESENT ILLNESS: 73-year-old female presents with change in mental status in the setting of recently diagnosed UTI. The patient does not provide reliable history but states she has no complaints. States that she thinks she fell. Per the pa leatha's daughter she was found on the ground upon arrival to her house today. States she seemed confused and something is off . Denies any focal deficits. Is unsure if she hit her head. Per the patient's daughter she is been compliant with her lactulose to treat her elevated ammonia levels. Daughter is concerned that ammonia may be high again versus a UTI. REVIEW OF SYSTEMS: Unreliable review of systems given the patient's change in mental status. PHYSICAL EXAM: Nursing triage notes reviewed, Vital signs reviewed Constitutional: please see mdm HENT: MMM Eyes: Pupils equal round and reactive to light, Extraocular muscles intact Neck: No stridor, no JVD, full neck ROM Lungs: Clear to auscultation, No wheezing or rales. No increased work of breathing, no conversational dyspnea, no accessory muscle use, no nasal flaring. No respiratory distress noted Heart: Regular rate and rhythm, No murmurs, No rubs and No gallops, 2+ distal pulses (radial, femoral, posterior tibial) in all extremities Abdomen: Soft, there is no tenderness, rigidity, rebound or guarding, no obvious peritoneal signs, no palpable pulsatile abdominal masses, no auscultated abdominal bruit : No CVAT Extremities: No edema Neuro: No obvious focal neurological deficits, the patient was alert, oriented to person place and time however did have difficulty following some conversation cranial nerves II through XII intact, 5/5 strength in all extremities. Intact sensation to light touch in all extremities, 2+ reflexes bilateral patella tendons. Normal gait. No ataxia. Skin: No rash or lesions noted MEDICAL DECISION MAKING: Chief Complaint: Altered mental status External records reviewed: Last ED visit October 10, 2023 for confusion. Labs at that visit were remarkable for elevated white blood cell count of 17.3, negative lactate, no YANE, urine had nitrite and leuk esterase, CT scan head was negative. Patient was admitted at that time and discharged on (3 days ago) Factors affecting care: UTI, hyponatremia, PTSD, GERD, type 2 diabetes basal cell carcinoma, COPD Social determinants of health: none History obtained from others: EMS Consults: Internal Medicine MDM Narrative: The patient was initially hypertensive otherwise hemodynamically stable. There were no obvious focal deficits, no cranial nerve deficits or signs of focality to her neurologic assessment. Patient was initially alert and oriented x 3 however seemed a bit confused and had trouble following conversation at times. I considered the following differential diagnosis: ICH, mass, metabolic or infe ctious cephalopathy, dehydration, electrolyte disturbance I obtained a broad lab and imaging workup to further elucidate the etiology of the patient's complaints ALL IMAGES (IF OBTAINED) HAVE BEEN PERSONALLY REVIEWED AND INTERPRETED BY MYSELF. EKG with normal sinus rhythm, normal axis, normal intervals, no STEMI Lipase is wnl indicating no pancreatic inflammation. Ammonia elevated Uric acid within normal limits CBC with leukocytosis suggestive of systemic inflammation, no anemia or thrombocytopenia noted CMP with marked hyponatremia downtrending from prior studies, no other significant electrolyte abnormalities, no YANE, no anion gap, no evidence of hepatobiliary obstruction High-sensitivity troponin is negative, no evidence of myocardial ischemia Urinalysis shows no evidence of urinary inflammation suggestive of UTI Alcohol is negative Valproic acid level within normal limits The synthesis of the patient's history, physical exam, labs images suggest evidence of hyponatremia and hyperammonemia. These are likely etiology of the patient's confusion/altered mental status. Patient will need admission for electrolyte balancing and further hyperammonemia treatment. Discussed with the hospitalist who accepted the patient's case to the PCU. The patient and/or family, caregivers express understanding. The patient and/or family, caregivers agrees with the plan. Shared decision making: I will have a discussion with the patient and or visitors regarding risk/benefits of further testing or admission. They will be made aware of of the risk/benefits inherent in this decision they will be given the opportunity to voice understanding. Total critical care time today provided was at least 35 minutes. This excludes separately billable procedures. Critical care time (if documented) is secondary to the patient having high probability of clinically significant/life threatening deterioration in the patient's condition which required my urgent intervention. Impression: 1. Altered mental status 2. Hyponatremia 3. Hyperammonemia 4. Hematuria Dispo: Admit to PCU full Lab Data Labs: Laboratory Results - last 24 hr 10/16/23 10/16/23 10/16/23 20:00 20:49 20:52 WBC 15.0 H RBC 4.22 Hgb 13.2 Hct 37.7 MCV 89.3 D MCH 31.3 MCHC 35.0 D RDW Std Deviation 45.0 H RDW Coeff of Tami 13.9 Plt Count 536 H MPV 8.7 Neut % (Auto) Not Reportable Absolute Neuts (auto) 10.4 H Absolute Lymphs (auto) 3.30 Total Counted 100 Neutrophils % (Manual) 65 Band Neutrophils % 4 Lymphocytes % (Manual) 22 Monocytes % (Manual) 6 Myelocytes % 3 H Diff Path Review May foll Platelet Estimate MOD INC RBC Morphology N CHROM Anisocytosis RARE Macrocytosis RARE Ovalocytes RARE Sodium 117 L* Potassium 3.7 Chloride 80 L Carbon Dioxide 27.0 Anion Gap 10 BUN 8 Creatinine 0.99 Estim Creat Clear Calc 37.44 Est GFR (MDRD) Af Amer 71 Est GFR (MDRD) Non-Af 59 L BUN/Creatinine Ratio 8.1 L Glucose 103 Calcium 9.5 Total Bilirubin 0.60 AST 31 ALT 40 Alkaline Phosphatase 91 Ammonia 43.0 H Troponin I High Sens 18 Total Protein 6.3 L Albumin 3.2 Globulin 3.1 Albumin/Globulin Ratio 1.0 Lipase 12 L Urine Color Urine Clarity Urine pH Ur Specific [place] Urine Protein Urine Glucose (UA) Urine Ketones Urine Occult Blood Urine Nitrite Urine Bilirubin Urine Urobilinogen Ur Leukocyte Esterase Urine RBC Urine WBC Ur Squamous Epith Cells Urine Bacteria Urine Mucus Valproic Acid 69 Ethyl Alcohol < 3.0 POC Glucose 107 H 10/16/23 20:57 WBC RBC Hgb Hct MCV MCH MCHC RDW Std Deviation RDW Coeff of Tami Plt Count MPV Neut % (Auto) Absolute Neuts (auto) Absolute Lymphs (auto) Total Counted Neutrophils % (Manual) Band Neutrophils % Lymphocytes % (Manual) Monocytes % (Manual) Myelocytes % Diff Path Review Platelet Estimate RBC Morphology Anisocytosis Macrocytosis Ovalocytes Sodium Potassium Chloride Carbon Dioxide Anion Gap BUN Creatinine Estim Creat Clear Calc Est GFR (MDRD) Af Amer Est GFR (MDRD) Non-Af BUN/Creatinine Ratio Glucose Calcium Total Bilirubin AST ALT Alkaline Phosphatase Ammonia Troponin I High Sens Total Protein Albumin Globulin Albumin/Globulin Ratio Lipase Urine Color Yellow Urine Clarity Clear Urine pH 7.0 Ur Specific [place] 1.005 Urine Protein 15 H Urine Glucose (UA) Normal Urine Ketones 5 H Urine Occult Blood 10 H Urine Nitrite Negative Urine Bilirubin Negative Urine Urobilinogen Normal Ur Leukocyte Esterase Negative Urine RBC 0 SEEN Urine WBC 0 SEEN Ur Squamous Epith Cells 0-5 SEEN Urine Bacteria 0 SEEN Urine Mucus 0 SEEN Valproic Acid Ethyl Alcohol POC Glucose Radiography Diagnostic Testing: Clinical Impression(s) from Imaging Studies Brain CT 10/16/23 20:08 IMPRESSION: Mild generalized atrophy. Mild low density bilaterally in the deep white matter. This likely represents chronic small vessel ischemic changes in the deep white matter. No change. Electronically Signed: Jacques Davenport MD at 22:12 EST Reading Location ID and State: [facility] / [place] Tel , Service support , Chest X-Ray 10/16/23 21:02 IMPRESSION: 1. Calcified right hilar lymph nodes. 2. No acute cardiopulmonary abnormality. No change. Electronically Signed: Jacques Davenport MD at 22:15 EST , Discharge Plan Triage Chief Complaint: Alt LOC ED Provider: Michele Richards Dx/Rx/DC Orders Prescriptions: No Action acetaminophen [Tylenol Arthritis Pain] 650 mg tablet extended release 650 mg PO Q12H PRN (Reason: pain) buprenorphine 100 mg/0.5 mL solution, extended rel syringe 100 mg subcut QMONTH ascorbic acid (vitamin C) 500 mg capsule 500 mg PO DAILY (DME) Incentive Spirometer See Rx Instructions .Route .MEDSUPPLY Qty: 1 0RF Rx Instructions: As directed ferrous sulfate 324 mg (65 mg iron) tablet,delayed release (DR/EC) 324 mg PO Q OTHER DAY Qty: 90 2RF divalproex 500 mg tablet extended release 24 hr 500 mg PO BID Qty: 60 7RF Myrbetriq 50 mg tablet extended release 24 hr 50 mg PO Q24H metformin 500 mg tablet extended release 24 hr 500 mg PO BID Qty: 60 3RF Prolia 60 mg/mL syringe 60 mg subcut [id number] Qty: 1 2RF lactulose 10 gram/15 mL solution 10 g PO BID Qty: 946 7RF fesoterodine 4 mg tablet extended release 24 hr 4 mg PO DAILY meloxicam 15 mg tablet 15 mg PO DAILY lamotrigine 200 mg tablet 200 mg PO QHS Rx Instructions: TAKE ONE TABLET BY MOUTH AT BEDTIME Vraylar 3 mg capsule 3 mg PO Q24H Rx Instructions: TAKE ONE CAPSULE BY MOUTH EVERY DAY hydralazine 50 mg tablet 50 mg PO TID Qty: 90 1RF (DME) Handicap Placard See Rx Instructions .ROUTE .MEDSUPPLY Qty: 1 0RF Rx Instructions: As directed, length of time 5 years (DME) POCKET CHAMBER Spacer See Rx Instructions .ROUTE .MEDSUPPLY Qty: 1 0RF Rx Instructions: As directed metoprolol succinate 50 mg tablet extended release 24 hr 50 mg PO DAILY Qty: 90 3RF Rx Instructions: Take with 25 mg for a total daily dose of 75 mg metoprolol succinate 25 mg tablet extended release 24 hr 25 mg PO QHS Qty: 90 2RF rosuvastatin 40 mg tablet 40 mg PO DAILY Qty: 90 2RF miconazole nitrate [Desenex] 2 % powder 1 applic topical BID Qty: 85 4RF (DME) FreeStyle Lite Strips Strip See Rx Instructions .MEDSUPPLY Qty: 100 3RF Rx Instructions: check blood glucose daily for type 2 DM (DME) blood-glucose meter [FreeStyle Lite Meter] Kit See Rx Instructions .MEDSUPPLY Qty: 1 0RF Rx Instructions: As directed, check blood glucose daily for type 2 DM (DME) lancets [FreeStyle Lancets] 28 gauge misc See Rx Instructions .MEDSUPPLY Qty: 200 3RF Rx Instructions: check blood glucose daily for type 2 DM calcium carbonate 600 mg calcium (1,500 mg) tablet 600 mg PO BID Qty: 180 3RF lisinopril 40 mg tablet 40 mg PO QAM Qty: 90 2RF nicotine 21 mg/24 hr patch 24 hour 1 patch transdermal Q24H Qty: 28 2RF Hold Instructions: Pt has been DC'd Primary Care Provider: Esperanza Baird Referrals: Esperanza Baird MD [Primary Care Provider] -
--- NOTE | 2023-10-16 20:08 | CT_ITS ---
EXAM: CT HEAD WITHOUT INTRAVENOUS CONTRAST CLINICAL INDICATION: AMS TECHNIQUE: Multiple axial images were obtained of the head without intravenous contrast. This CT exam was performed using one or more of the following dose reduction techniques: automated exposure control, adjustment of the mA and/or kV according to patient size, and/or use of iterative reconstruction technique. RADIATION DOSE: CTDIvol = 44.99 mGy, DLP = 812.98 mGy-cm COMPARISON: 10/10/2023. FINDINGS: BRAIN AND EXTRA-AXIAL SPACES: Mild generalized atrophy. Mild low density bilaterally in the deep white matter. No intra- or extra-axial hemorrhage. No evidence of acute infarct. No intracranial mass or mass effect. There is preservation of the steele/white matter interface. Posterior fossa structures are unremarkable. No hydrocephalus. Basal cisterns are patent. BONES/JOINTS: Unremarkable. No discrete lytic or blastic abnormalities. SINUSES: Unremarkable as visualized. Clear. MASTOID AIR CELLS: Unremarkable. Clear. ORBITS: Visualized globes, extraocular muscles, optic nerves and retrobulbar fat appear unremarkable. CT/Brain/Head without Contrast IMPRESSION: Mild generalized atrophy. Mild low density bilaterally in the deep white matter. This likely represents chronic small vessel ischemic changes in the deep white matter. No change. Electronically Signed: Jacques Davenport MD at 22:12 EST ,
--- NOTE | 2023-10-16 20:09 | EKG12_ITS ---
Test Reason : DYSRHYTHMIA Blood Pressure : / mmHG Vent. Rate : 078 BPM Atrial Rate : 078 BPM P-R Int : 190 ms QRS Dur : 092 ms QT Int : 376 ms P-R-T Axes : 055 069 064 degrees QTc Int : 428 ms Normal sinus rhythm with sinus arrhythmia Normal ECG Confirmed by CORKY SEALS, FARHEEN ([id number]), editor house organ ATUL BANEGAS ([id number]) on 10/20/2023 8:28:59 AM Referred By: Confirmed By:FARHEEN FRIED MD
[2023-10-16 20:33] LABS: Hematocrit 37.7 % (37-47); Hemoglobin 13.2 g/dL (12.0-15.0); Mean Corpuscular Hgb 31.3 pg (27.0-32.0); Mean Corpuscular Volume 89.3 fL (81-99); Mean Platelet Vol. 8.7 fl (6.2-12.0); POSITIVE COUNT YES; POSITIVE MORPHOLOGY YES; Platelet Count 536 K/mm3 (150-450); RBC Distribution Width CV 13.9 % (11.6-14.6); Red Blood Count 4.22 M/mm3 (4.2-5.4)
[2023-10-16] MEDS: 0.9% Normal Saline (1000mL) 1,000 ML 1000 ML IV (20:35)
--- OUTSIDE RECORDS SUMMARY | 2023-10-16 20:54 | XMS RPT_ITS | CCD ---
Author Name Unknown Address [address] [place] [address] [facility] Care Team Providers Care Senior Water Resources Engineer Name Role Phone Shira Hylton Unavailable Unavailable [...] Leopoldo Baird MD Primary Care Provider [phone] Unavailable Primary Care Provider Unavailabl e Rodye, Efewongbe B Primary Care Provider Labor Adelina TSOREY Unavailable Mica BOWMAN - PATRICIO, Dejah Unavailable [phone] Manjit Ga DO Unavailable Unavailable Susie Ledezma MD Unavailable Oleghe, Efewongbe B Primary Care Provider Oleghe, Efewongbe B Primary Care Provider SUSIE LEDEZMA Admitting Unavailable SUSIE LEDEZMA Attending Unavailable OLEANAE, EFEWONGBE Primary Care Unavailable KAREEM HARTMANN Attending Unavailable OLEGHE, EFEWONGBE Primary Care Unavailable KAREEM HARTMANN Attending Unavailable OLEGHE, EFEWONGBE Primary Care Unavailable KAREEM HARTMANN Attending Unavailable OLEE, EFEWONGBE Primary Care Unavailable HARITHA SINGH Attending Unavailable DEJAH DREW Referring Unavailable OLEE, EFEWONGBE Primary Care Unavailable ASHLEY MESA Attending Unavailable OLEE, EFEWONGBE Primary Care Unavailable SUSIE LEDEZMA Attending Unavailable OLEE, EFEWONGBE Primary Care Unavailable KENZIE PAUL Attending Unavailable OLEE, EFEWONGBE Primary Care Unavailable JENNIFERELADIA RICHEK Attending Unavailable OLEGHE, EFEWONGBE Primary Care Unavailable BRETT BERNAL Attending Unavailable ZSHAYLEE LITTELORY Referring Unavailable OLEE, EFEWONGBE Primary Care Unavailable Allergies Allergy Classification Reported Allergen(s) Allergy Type Date of Onset Reaction(s) Facility (3 sources) iloperidone Drug Allergy 1 [facility] Work Phone: (1 source) paliperidone Drug Allergy -[facility] Work Phone: (1 source) Theophylline Drug Allergy [facility] Work Phone: (1 source) traZODone Drug Allergy [facility] Work Phone: (20 sources) Naproxen Drug Allergy 1 Hives [facility] (3 sources) Gadoxetate Drug Allergy 7 Shortness of Breath, SOB [facility] (1 source) Slow-bid [Other] Propensity to adverse reactions 2 Mental Status Change [facility] Work Phone: (20 sources) paliperidone Drug Allergy 9 [facility] Work Phone: (20 sources) iloperidone Drug Allergy 9 [facility] (20 sources) lurasidone Drug Allergy 9 [facility] (20 sources) Theophylline Drug Allergy 7 [facility] (20 sources) Gadoxetate Propensity to adverse reactions 7 Shortness of breath [facility] (20 sources) Trazodone And Nefazodone Drug Intolerance 9 [facility] Medications Current Medications Medication Drug Class(es) Dates [...] Drug Class(es) Dates Sig (Normalized) Sig (Original) [id number] 200 actuat albuterol 0.09 mg/actuat metered dose [...] 152.4 cm Kareem Hartmann MD Work Phone: [facility] 09-03-2023 07:11-0500 Body mass index (BMI) [Ratio] 43.51 kg/m2 Kareem Hartmann MD Work Phone: [facility] 09-03-2023 07:11-0500 Body weight 101.06 kg Kareem Hartmann MD Work Phone: [facility] 09-03-2023 07:11-0500 Diastolic blood pressure 106 mm[Hg] Kareem Hartmann MD Work Phone: [facility] 09-03-2023 07:11-0500 Systolic blood pressure 169 mm[Hg] Kareem Hartmann MD Work Phone: [facility] 08-10-2023 08:11-0400 Body height 152.4 cm Kareem Hartmann MD Work Phone: [facility] 08-10-2023 08:11-0400 Body mass index (BMI) [Ratio] 43.36 kg/m2 Kareem Hartmann MD Work Phone: [facility] 08-10-2023 08:11-0400 Body weight 100.7 kg Kareem Hartmann MD Work Phone: [facility] 08-10-2023 08:11-0400 Diastolic blood pressure 88 mm[Hg] Kareem Hartmann MD Work Phone: [facility] 08-10-2023 08:11-0400 Heart rate 86 /min Kareem Hartmann MD Work Phone: [facility] 08-10-2023 08:11-0400 Systolic blood pressure 150 mm[Hg] Kareem Hartmann MD Work Phone: [facility] 07-09-2023 09:28-0400 Body height 152.4 cm Kareem Hartmann MD Work Phone: [facility] 07-09-2023 09:28-0400 Body mass index (BMI) [Ratio] 44.18 kg/m2 Kareem Hartmann MD Work Phone: [facility] 07-09-2023 09:28-0400 Body weight 102.6 kg Kareem Hartmann MD Work Phone: [facility] 07-09-2023 09:28-0400 Diastolic blood pressure 84 mm[Hg] Kareem Hartmann MD Work Phone: [facility] 07-09-2023 09:28-0400 Heart rate 75 /min Kareem Hartmann MD Work Phone: [facility] 07-09-2023 09:28-0400 Respiratory rate 16 /min Kareem Hartmann MD Work Phone: [facility] 07-09-2023 09:28-0400 Systolic blood pressure 142 mm[Hg] Kareem Hartmann MD Work Phone: [facility] 06-25-2023 09:06-0400 Body height 152.4 cm Kenzie Paul MD Work Phone: [facility] 06-25-2023 09:06-0400 Body mass index (BMI) [Ratio] 43.28 kg/m2 Kenzie Paul MD Work Phone: [facility] 06-25-2023 09:06-0400 Body weight 100.52 kg Kenzie Paul MD Work Phone: [facility] 06-25-2023 09:06-0400 Diastolic blood pressure 88 mm[Hg] Kenzie Paul MD Work Phone: [facility] Encounters Encounter Date Encounter Type Care Provider Facility Start: 09-28-2023 Refill Brett GO Work Phone: [facility] Start: 09-21-2023 Documentation procedure Kareem Hartmann MD Work Phone: [facility] Start: 09-21-2023 Telephone encounter Kareem rich MD Work Phone: [facility] [place] [facility] Procedures Date Procedure Procedure Detail Performing Clinician Start: 07-09-2023 Lipid 1996 panel - Serum or Plasma Kareem Hartmann MD Work Phone: Start: 01-15-2022 Mammography Susie Ledezma MD Work Phone: Start: 12-05-2020 Lipid 1996 panel - Serum or Plasma Temple Noteboom PharmD Work Phone: Start: 08-03-2020 Endoscopy - Upper GI Magalie Rangel Start: 08-26-2018 Colonoscopy Emmanuel Smart Work Phone: Start: 12-30-2016 Adult depression screening assessment Emmanuel Smart Work Phone: Start: 12-12-2016 Mammography Emmanuel Smart Work Phone: section Magalie Henry er Cholecystectomy Magalie coe Colonoscopy Magalie Rangel Esophagogastroduodenoscopy E talya Rangel Hysterectomy Magalie Rangel Plan of Treatment Date Care Activity Detail Author Start: 07-09-2028 Lipid panel [facility] Start: 07-15-2026 DTaP/Tdap/Td Vaccine s (2 - Td or Tdap) DTaP/Tdap/Td Vaccines (2 - Td or Tdap) [facility] Start: 07-15-2026 Tetanus vaccination Imm-DTaP/T dap/Td (2 - Td or Tdap) [facility] Start: 07-15-2026 Urine microalbumin profile DTAP,TDAP,TD (2 - Td or Tdap) [facility] Start: 12-05-2025 Lipid panel Lipid Panel [facility] Start: 07-09-2024 Diabetes mellitus screening Diabetes Screening [facility] Start: 12-02-2023 Tobacco use cessatio n education Tobacco Cessation Counseling (#1) [facility] Start: 10-09-2023 End: 07-10-2024 25-hydroxyvitamin D3 [Mass/volume] in Serum or Plasma Vitamin D Deficiency Screening (Vit D 25) Lab Routine Vitamin D deficiency Expected: 10/09/2023 (Approximate), Expires: 07/10/2024 [facility] Immunizations Immunization Date Immunization Notes Care Provider Fa cilijennifer 08-27-2022 influenza virus vacc ine, unspecified formulation Susie Ledezma MD Work Phone: [facility] 07-21-2016 influenza, injectabl e, quadrivalent, contains preservative Emmanuel Smart Work Phone: [facility] 07-15-2016 tetanus toxoid, redu aaliyah diphtheria toxoid, and acellular pertussis vaccine, adsorbed Emmanuel Smart Work Phone: [facility] 09-05-2014 influenza, seasonal, injectable Emmanuel Berry Work Phone: [facility] Work Phone: 07-31-2012 pneumococcal polysaccharide vaccine, 23 valent Emmanuel Samrt Work Phone: [facility] 07-29-2012 influenza virus vacc ine, unspecified formulation Emmanuel Smart Work Phone: [facility] 09-29-2010 pneumococcal polysaccharide vaccine, 23 valent Emmanuel Smart Work Phone: [facility] Payers Date Payer Category Payer Medicaid [facility] MEDICA[facility] [id number] 2018-Present [phone] [address] [place] [address] Medicaid [id number] 2018 Medicare [id number] 2015 Medicare [id number] 2015 Unknown [id number] 1950 Unknown [id number] Social History Date Type Detail Facility Start: 10-19-1987 End: 06-25-2023 Tobacco smoking status RIIS Smokes tobacco daily [facility] Start: 10-19-1987 End: 10-16-2015 History of tobacco use Cigarette Smoker [facility] Start: 05-21-2016 End: 07-09-2023 Cigarettes smoked current (pack per day) - Reported 0.5 [facility] Start: 05-21-2016 End: 06-25-2023 Tobacco use and exposure Smokeless tobacco non-user [facility] Start: 08-29-2021 Alcohol intake Current non-dr lead recoverer of alcohol (finding) [facility] Start: 1950 Sex Assigned At Not on file [facility] Start: 07-30-2021 End: 07-09-2023 Exposure to SARS-CoV-2 (event) Not sure [facility] Start: 12-02-2022 End: 12-18-2022 Alcohol intake Lifetime non-drinker (finding) [facility] Work Phone: Start: 01-15-2021 History SDOH Alcohol Frequency 1 [facility] Work Phone: Start: 12-02-2022 Tobacco Comment half a pack da vini, smoked since 37 [facility] Work Phone: Start: 1950 [facility] [employer] Work Phone: Start: 04-30-2023 End: 07-09-2023 Alcohol intake Ex-drinker (finding) [facility] Start: 04-30-2023 End: 07-09-2023 Gender identity Not on file [facility] Start: 06-16-2023 Tobacco smoking stat [facility] Ex-smoker [facility] Start: 10-19-1987 History of tobacco use Current smoke r [facility] Within the last year , have you been afraid of your partner or ex-partner? No [facility] NEGATED: Highlighted row - - -[facility] Work Phone: Functional Status Date Assessment Result Facility NEGATED: Highlighted row Functional performance Functional status health issues are not documented Disease -[facility] Work Phone: Mental Status Date Assessment Result Facility NEGATED: Highlighted row Cognitive function [Interpretation] Cognitive status health issues are not documented Disease -[facility] Work Phone: Clinical Notes 01-31-2013 to 10-05-2023 Telephone Encounter - ABBI Cassidy - 10/05/2023 12:25 PM ESTTelephone Encounter - ABBI Cassidy - 10/05/2023 12:25 PM ESTTelephone Encounter - Elisa Arce RN - 10/05/2023 12:02 PM EST Note Date & Type Note Facility 10-05-2023 Note Addended by: ELISA ARCE on: 10/05/2023 12:08 PM Modules accepted: [facility] 10-05-2023 Telephone encounter Note Noted, thanks [facility] 10-05-2023 Miscellaneous Notes Noted, thanks [...] EGD is to be cancelled via pool: [facility]ICAL [facility]IP[facility] (List Surgeon as provider in the TE) EGD done 06/16/23 [x] Clinical staff to note in specialty comment date patient has withdrawn from the program [x] Sent to [facility] and Surgical Navigation and Financial Teams for notification. Name of caller: Giovana Contact phone number: [phone] Relationship to Patient: patient Provider: Kareem Hartmann [...] Yes documented in this encounter [facility] 10-05-2023 Note Addended by: ELISA ARCE on: 10/05/2023 12:08 PM Modules accepted: Orders [facility] 10-05-2023 Note Addended by: ELISA ARCE on: 10/05/2023 12:08 PM Modules accepted: Orders [facility] 10-05-2023 Miscellaneous Notes Addended by: [...] recommended proceeding with the evaluation, workup and product support consultant preoperative consultations and testing for the primary procedure as outlined below: BARIATRIC AND METABOLIC SURGERY [facility] PATIENT SUMMARY Giovana Ledezma 72 y.o. female [...] she has been compliant with, both in [place] and now in [place] She will need 6 months of physician [...] performed the evaluation and management of Giovana Arlinehansel in the development of a treatment plan [...] Ga DO (Psychiatry) Initial New [facility] surgical patient Navigation & Financial Counseling Discussion [...] PRIMARY INSURANCE: Payor: [employer] MEDICARE / Plan: [employer] DUAL ADVANTAGE / Product Type: Medicare HMO [...] 1) Scheduled at new pt surgeon visit: Environmental Projects Advisor (RD) for a Nutrition Assessment (BNA) and [...] and after surgery. documented in this encounter [facility] 10-05-2023 Telephone encounter Note See TE from 09/21/23 where pt withdrew from surg program and non surg. [facility] 10-05-2023 Telephone encounter Note Per message in [...] EGD is to be cancelled via pool: [facility] CLINICAL AUTO STRIPER (List Surgeon as provider in the TE) EGD done 06/16/23 [x] Clinical staff to note in specialty comment date patient has withdrawn from the program [x] Sent to [facility] and Surgical Navigation and Financial Teams for notification. [facility] 09-28-2023 Telephone encounter Note One month sent but pt needs to complete repeat labs- please advise, thanks! [facility] 09-28-2023 Miscellaneous Notes One month sent but pt needs to complete repeat labs- please advise, thanks! Received fax from [email or web address] requesting refills for Vit B-12 500 mcg. documented in this encounter [facility] 09-28-2023 Telephone encounter Note Received fax from [email or web address] requesting refills for Vit B-12 500 mcg. [facility] 09-21-2023 Telephone encounter Note Name of caller: Giovana Contact phone number: [phone] Relationship to Patient: patient Provider: Kareem Hartmann [...] to return their call: Yes [facility] 09-21-2023 Miscellaneous Notes Name of caller: Giovana Contact phone number: [phone] Relationship to Patient: patient Provider: Kareem Hartmann [...] Yes documented in this encounter [facility] 09-21-2023 History of Present illness Narrative I called Ms. Powell (using the phone number listed in [employer]) to discuss how she is tolerating the Trulicity. 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 Kareem Hartmann MD 3:14 PM 09/21/2023 documented in this encounter [facility] 09-03-2023 History of Present illness [...] the Trulicity, contact PCP and [facility] [place], and seek immediate medical attention for [...] follow up with her sleep specialist in [place] --smoking cessation: recently quit with nicotine patch [...] --Leukocytosis and elevated platelets: follows with hematology/oncology ([facility], Dr. Russell) Plan of care discussed [...] patient's medications and diagnoses listed in Epic. [facility]-SURGICAL WEIGHT LOSS MANAGEMENT PROGRAM ROOMING NOTE: [...] Path) Date of Initial Consultation:@FLOWLAST(8961)@ Initial Weight: @FLOWLAST([id number])@ Initial BMI: @FLOWLAST([id number])@ [place] Body Weight: @FLOWLAST([id number])@ Excess Body Weight: @FLOWLAST([id number])@ Body Fat Percentage: No flowsheet data found. [...] MA documented in this encounter [facility] 08-12-2023 Telephone encounter Note Patient states she is switching to the NSRUG program with Dr. Hartmann. [facility] 08-10-2023 Telephone encounter Note Patient needs scheduled for psychology please. On d/e 5 out of 6, thanks. [facility] 08-10-2023 Miscellaneous Notes Patient needs [...] recommended proceeding with the evaluation, workup and product support consultant preoperative consultations and testing for the primary procedure as outlined below: BARIATRIC AND METABOLIC SURGERY [facility] PATIENT SUMMARY Giovana Ledezma 72 y.o. female with Body mass index is 42.73 kg/m . Planned Procedures: Laparoscopic Sleeve Gastrectomy and Laparoscopic Liver Biopsy DM[] HTN[x] JENNIFER[x] GERD[] HL[x] OA[] TOB[x] Date of Surgery: TBD MADINA AYLINKADIE OTIS INITIAL PRE-OP TESTING ORDERS/ RESULTS Labwork [x] [...] she has been compliant with, both in [place] and now in [place] She will need 6 months of physician [...] Ga DO (Psychiatry) Initial New [facility] surgical patient Navigation & Financial Counseling Discussion [...] [] YES [] NO PRIMARY INSURANCE: Payor: [facility] MEDICARE / Plan: [facility] DUAL ADVANTAGE / Product Type: Medicare HMO [...] 1) Scheduled at new pt surgeon visit: Environmental Projects Advisor (RD) for a Nutrition Assessment (BNA) and [...] surgery. documented in this encounter [facility] 08-10-2023 Note BARIATRIC CARE [facility] SURGICAL WEIGHT LOSS MANAGEMENT PROGRAM PROGRESS NOTE FOLLOW UP Patient: Giovana Powell Date of : 1950 Service Date: 08/10/2023 [place] Visit number: 4 of 6 Pre Program Weight Metrics Date of Initial Consultation:@FLOWLAST(8961)@ Initial Weight: @FLOWLAST([id number])@ Initial BMI: @FLOWLAST([id number])@ [place] Body Weight: @FLOWLAST([id number])@ Excess Body Weight: @FLOWLAST([id number])@ Follow Up Weight Metrics Last Three Weights [...] home O2 Completed by: Juanita Daigle MA [facility] 08-10-2023 History of Present illness Narrative [facility] PROGRESS NOTE FOLLOW UP Patient: Giovana Powell Date of : 1950 Service Date: 08/10/2023 [place] Visit number: 4 of 6 Pre Program Weight Metrics Date of Initial Consultation:@FLOWLAST(8961)@ Initial Weight: @FLOWLAST([id number])@ Initial BMI: @FLOWLAST([id number])@ [place] Body Weight: @FLOWLAST([id number])@ Excess Body Weight: @FLOWLAST([id number])@ Follow Up Weight Metrics Last Three Weights [...] home O2 Completed by: Juanita Daigle MA [facility] - SURGICAL WEIGHT LOSS MANAGEMENT [...] follow up with her sleep specialist in [place] --smoking cessation: recently quit with nicotine patch [...] --Leukocytosis and elevated platelets: follows with hematology/oncology ([facility], Dr. Russell) Advised patient to continue [...] Epic. documented in this encounter [facility] 08-05-2023 History of Present illness Narrative [facility] BARIATRIC NUTRITION ASSESSMENT / [...] Lashonda Mason RD documented in this encounter [facility] 07-14-2023 Telephone encounter Note So far, we haven't received anything from the pharmacy about a prior authorization for Trulicity. When I spoke to the patient, I also told her to call us if there was any issues. [facility] 07-14-2023 Miscellaneous Notes So far, [...] back. documented in this encounter [facility] 07-14-2023 Telephone encounter Note Thank you, yes Trulicity was recommended by the insurance company since Mounjaro is not covered. How will we know if Trulicity is covered by insurance? Thanks again [facility] 07-14-2023 Telephone encounter Note FYI: Spoke with [...] was any issues to call us back. [facility] 07-10-2023 Telephone encounter Note Signed, thanks [facility] 07-10-2023 Miscellaneous Notes Signed, thanks Noted, thank [...] sent regarding labs. documented in this encounter [facility] 07-10-2023 Telephone encounter Note Noted, thank you! [facility] Work Phone: 07-10-2023 Telephone encounter Note Called [...] months. Orders pending. Please sign. Thank you! [facility] 07-10-2023 History of Present illness Narrative Message regarding prior authorization reviewed. Recommendation is to substitute Rickey for Mounfannyro. Changes made and prescription sent to pharmacy. documented in this encounter [facility] 07-10-2023 Telephone encounter Note I called Ms. [...] Hartmann MD 9:45 AM 07/10/2023 [facility] 07-10-2023 Miscellaneous Notes I called [...] back. documented in this encounter [facility] 07-10-2023 Telephone encounter Note Started PA through C[facility] 07-09-2023 Telephone encounter Note Patient left VM stating she has a question for Dr. Hartmann and would like a call back. [facility] 07-09-2023 Telephone encounter Note Pre-op_JZ 07/09/2023 Vitamin D: 20 (L) Magnesium: 2.5 (H) Vitamin B12: 333 (L end NL) [employer] message sent regarding labs. [facility] 07-09-2023 Note Addended by: MARCELO LAM on: 07/09/2023 10:11 AM Modules accepted: Orders [facility] 07-09-2023 Note [facility]IATRIC CARE [facility] WEIGHT LOSS MANAGEMENT PROGRAM PROGRESS NOTE FOLLOW UP Patient: Giovana Powell Date of : 1950 Service Date: 07/09/2023 [place] Visit number: 3 of 6 Pre Program Weight Metrics Date of Initial Consultation:@FLOWLAST(8961)@ Initial Weight: @FLOWLAST([id number])@ Initial BMI: @FLOWLAST([id number])@ [place] Body Weight: @FLOWLAST([id number])@ Excess Body Weight: @FLOWLAST([id number])@ Follow Up Weight Metrics Last Three Weights [...] home O2 Completed by: Evelyn Chambers MA [facility] 07-09-2023 Note Addended by: MARCELO LAM on: 07/09/2023 10:11 AM Modules accepted: Orders [facility] 07-09-2023 Note Addended by: MARCELO LAM on: 07/09/2023 10:11 AM Modules accepted: Orders [facility] 07-09-2023 Note Addended by: MARCELO LAM on: 07/09/2023 10:11 AM Modules accepted: Orders [facility] 07-09-2023 Note Addended by: MARCELO LAM on: 07/09/2023 10:11 AM Modules accepted: Orders [facility] 07-09-2023 Miscellaneous Notes Addended by: [...] recommended proceeding with the evaluation, workup and product support consultant preoperative consultations and testing for the primary procedure as outlined below: BARIATRIC AND METABOLIC SURGERY [facility] PATIENT SUMMARY Giovana Ledezma 72 y.o. female [...] she has been compliant with, both in [place] and now in [place] She will need 6 months of physician [...] Ga DO (Psychiatry) Initial New [facility] surgical patient Navigation & Financial Counseling Discussion [...] PRIMARY INSURANCE: Payor: [employer] MEDICARE / Plan: [employer] DUAL ADVANTAGE / Product Type: Medicare HMO [...] 1) Scheduled at new pt surgeon visit: Environmental Projects Advisor (RD) for a Nutrition Assessment (BNA) and [...] surgery. documented in this encounter [facility] 07-09-2023 History of Present illness Narrative [facility] SURGICAL WEIGHT LOSS MANAGEMENT PROGRAM PROGRESS NOTE FOLLOW UP Patient: Giovana Powell Date of : 1950 Service Date: 07/09/2023 DE Visit number: 3 of 6 Pre Program Weight Metrics Date of Initial Consultation:@FLOWLAST(8961)@ Initial Weight: @FLOWLAST([id number])@ Initial BMI: @FLOWLAST([id number])@ [place] Body Weight: @FLOWLAST([id number])@ Excess Body Weight: @FLOWLAST([id number])@ Follow Up Weight Metrics Last Three Weights [...] -GI surgeries: cholecystectomy, hysterectomy -Anti-obesity medications are rat exterminator medications. Weight gain will likely result when [...] follow up with her sleep specialist in [place], she also requires pulmonology clearance prior to [...] Epic. documented in this encounter [facility] 07-09-2023 History of Present illness Narrative [facility] PRO[facility] PROGRESS NOTE FOLLOW UP Patient: Giovana Powell Date of : 1950 Service Date: 07/09/2023 DE Visit number: 3 of 6 Pre Program Weight Metrics Date of Initial Consultation:@FLOWLAST(8961)@ Initial Weight: @FLOWLAST([id number])@ Initial BMI: @FLOWLAST([id number])@ [place] Body Weight: @FLOWLAST([id number])@ Excess Body Weight: @FLOWLAST([id number])@ Follow Up Weight Metrics Last Three Weights [...] -GI surgeries: cholecystectomy, hysterectomy -Anti-obesity medications are usp medications. Weight gain will likely result when [...] follow up with her sleep specialist in [place], she also requires pulmonology clearance prior to [...] Epic. documented in this encounter [facility] 06-25-2023 Note 06/25/2023 REFERRING PHYSICIAN: [...] Dr. Newell/ Vickie general CHOLECYSTECTOMY 2019 laparoscopic [place] HYSTERECTOMY [facility] Social History: Social History Socioeconomic History Marital [...] (06/25/23905) Resp 18 (more content not included)... [facility] 06-25-2023 History of Present illness Narrative Images [...] Vickie general CHOLECYSTECTOMY 2019 laparoscopic -[place] HYSTERECTOMY [facility] Social History: Social History Socioeconomic History Marital [...] results. documented in this encounter [facility] 06-25-2023 Instructions Isha Garcia Rai, MA - 06/25/2023 10:00 AM EDT YOUR APPOINTMENT TODAY WAS WITH THE [facility], COPD CLINIC, PULMONARY AND SLEEP MEDICINE OFFICE. PLEASE CALL OUR OFFICE AT [phone] IF YOU HAVE NOT RECEIVED YOUR TEST [...] to make improvements. COVID-19 VACCINATION INFORMATION: PH. [phone] [email or web address] [facility] Central Scheduling [phone] [facility] Sleep Scheduling [phone] documented in this encounter [facility] 06-17-2023 Note [facility]ATRIC CARE [facility] SURGICAL WEIGHT LOSS MANAGEMENT PROGRAM PROGRESS NOTE FOLLOW UP Patient: Giovana Powell Date of : 1950 Service Date: 06/17/2023 DE Visit number: 2 of 6 Pre Program Weight Metrics Date of Initial Consultation:@FLOWLAST(8961)@ Initial Weight: @FLOWLAST([id number])@ Initial BMI: @FLOWLAST(526853938)@ [place] Body Weight: @FLOWLAST([id number])@ Excess Body Weight: @FLOWLAST([id number])@ Follow Up Weight Metrics Last Three Weights [...] home O2 Completed by: Nata Bro LPN [facility] 06-17-2023 History of Present illness Narrative [facility] PROGRESS NOTE FOLLOW UP Patient: Giovana Powell Date of : 1950 Service Date: 06/17/2023 DE Visit number: 2 of 6 Pre Program Weight Metrics Date of Initial Consultation:@FLOWLAST(8961)@ Initial Weight: @FLOWLAST([id number])@ Initial BMI: @FLOWLAST([id number])@ [place] Body Weight: @FLOWLAST([id number])@ Excess Body Weight: @FLOWLAST([id number])@ Follow Up Weight Metrics Last Three Weights [...] completed. documented in this encounter [facility] 06-16-2023 Note Patient: Giovana Powell Procedure Summary Date: 06/16/23 Room / Location: [facility] [address] [facility] ENDO SEC 3 / ARCH [...] once all PACU criteria has been met. [facility] 06-16-2023 Note Patient: Giovana Powell Procedure Summary Date: 06/16/23 Room / Location: [facility] ARCH ENDO SEC 3 / ARCH Gastroenterology [...] of surgery or procedure by MD, APC student development advisor proxy staff ([id number]) The patient did smoke [...] opportunity for questions and acknowledgement of understanding. [facility] 06-16-2023 Note Endoscopy Center- [facility] Patient Name: Giovana Powell Procedure Date: 06/16/2023 8:44 AM Gender: Female Date of : 1950 Age: 72 Admit Type: Outpatient Note Status: Finalized Endoscopist: Susie Ledezma MD, [id number] Procedure: Upper GI endoscopy Indications: Suspected gastro-esophageal [...] immediate complications. Procedure Code(s): --- Professional --- 76557, Esophagogastroduodenoscopy, flexible, transoral; with biopsy, single or multiple --- Technical --- 29223, Esophagogastroduodenoscopy, flexible, transoral; with biopsy, single or multiple Diagnosis Code(s): --- Professional --- K29.70, Gastritis, unspecified, without bleeding Z01.818, Encounter for other preprocedural examination E66.01, Morbid (severe) obesity due to excess calories --- Technical --- K29.70, Gastritis, unspecified, without bleeding Z01.818, Encounter for other preprocedural examination E66.01, Morbid (severe) obesity due to excess calories CPT copyright 202 [employer]. All rights reserved. The codes documented in this report are preliminary and upon mill recorder review may be revised to meet current compliance requirements. Attending Participation: I personally performed the entire procedure. Susie Ledezma MD 06/16/2023 9:09:17 AM This report has been signed electronically. Number of Addenda: 0 Note Initiated On: 06/16/2023 8:44 AM [facility] 06-16-2023 Note Patient: Giovana Powell Procedure Information Date/Time: 06/16/23 0900 Procedure: EGD WITH BIOPSY - 30 MINUTES Location: [address] ENDO SEC 3 / ARCH Gastroenterology [...] weakness No date: Prediabetes No date: Seizures (HCC) last 35 years ago No date: Snoring Past Surgical History: Past Surgical History: No date: SECTION, LOW TRANSVERSE Comment: 1979, 1980, 1985 Dr. Newell/ Vickie lowry 2019: CHOLECYSTECTOMY Comment: laparoscopic -[place] No date: HYSTERECTOMY Comment: [facility] Social History: TOBACCO: reports that she has [...] found for this or any previous visit. [facility] 06-16-2023 Note Formatting of this n ote might be different from the original. Endoscopy Center- [facility] Patient Name: Giovana Powell Procedure Date: 06/16/2023 8:44 AM Gender: Female Date of : 1950 Age: 72 Admit Type: Outpatient Note Status: Finalized Endoscopist: Susie Ledezma MD, [id number] Procedure: Upper GI endoscopy Indications: Suspected gastro-esophageal [...] immediate complications. Procedure Code(s): --- Professional --- 71458, Esophagogastroduodenoscopy, flexible, transoral; with biopsy, single or multiple --- Technical --- 03196, Esophagogastroduodenoscopy, flexible, transoral; with biopsy, single or multiple Diagnosis Code(s): --- Professional --- K29.70, Gastritis, unspecified, without bleeding Z01.818, Encounter for other preprocedural examination E66.01, Morbid (severe) obesity due to excess calories --- Technical --- K29.70, Gastritis, unspecified, without bleeding Z01.818, Encounter for other preprocedural examination E66.01, Morbid (severe) obesity due to excess calories CPT copyright 2021 [employer]. All rights reserved. The codes documented in this report are preliminary and upon mill recorder review may be revised to meet current compliance requirements. Attending Participation: I personally performed the entire procedure. Susie Ledezma MD 06/16/2023 9:09:17 AM This report has been signed electronically. Number of Addenda: 0 Note Initiated On: 06/16/2023 8:44 AM [facility] 06-16-2023 Note Formatting of this n ote might be different from the original. [facility]: Giovana Powell Procedure Date: 06/16/2023 8:44 AM Gender: Female Date of : 1950 Age: 72 Admit Type: Outpatient Note Status: Finalized Endoscopist: Susie Ledezma MD, [id number] Procedure: Upper GI endoscopy Indications: Suspected gastro-esophageal [...] immediate complications. Procedure Code(s): --- Professional --- 95829, Esophagogastroduodenoscopy, flexible, transoral; with biopsy, single or multiple --- Technical --- 73554, Esophagogastroduodenoscopy, flexible, transoral; with biopsy, single or multiple Diagnosis Code(s): --- Professional --- K29.70, Gastritis, unspecified, without bleeding Z01.818, Encounter for other preprocedural examination E66.01, Morbid (severe) obesity due to excess calories --- Technical --- K29.70, Gastritis, unspecified, without bleeding Z01.818, Encounter for other preprocedural examination E66.01, Morbid (severe) obesity due to excess calories CPT copyright 2021 [employer]. All rights reserved. The codes documented in this report are preliminary and upon mill recorder review may be revised to meet current compliance requirements. Attending Participation: I personally performed the entire procedure. Susie Ledezma MD 06/16/2023 9:09:17 AM This report has been signed electronically. Number of Addenda: 0 Note Initiated On: 06/16/2023 8:44 AM [facility] 06-16-2023 Miscellaneous Notes [facility] Name: Giovana Powell Procedure Date: 06/16/2023 8:44 AM Gender: Female Date of : 1950 Age: 72 Admit Type: Outpatient Note Status: Finalized Endoscopist: Susie Ledezma MD, [id number] Procedure: Upper GI endoscopy Indications: Suspected gastro-esophageal [...] immediate complications. Procedure Code(s): --- Professional --- 11775, Esophagogastroduodenoscopy, flexible, transoral; with biopsy, single or multiple --- Technical --- 56168, Esophagogastroduodenoscopy, flexible, transoral; with biopsy, single or multiple Diagnosis Code(s): --- Professional --- K29.70, Gastritis, unspecified, without bleeding Z01.818, Encounter for other preprocedural examination E66.01, Morbid (severe) obesity due to excess calories --- Technical --- K29.70, Gastritis, unspecified, without bleeding Z01.818, Encounter for other preprocedural examination E66.01, Morbid (severe) obesity due to excess calories CPT copyright 2021 [employer]. All rights reserved. The codes documented in this report are preliminary and upon mill recorder review may be revised to meet current compliance requirements. Attending Participation: I personally performed the entire procedure. Susie Ledezma MD 06/16/2023 9:09:17 AM This report has been signed electronically. Number of Addenda: 0 Note Initiated On: 06/16/2023 8:44 AM documented in this encounter [facility] 06-15-2023 Note [facility] - Surgery [facility] Physicians Surgery PATIENT NAME: [...] Dr. Newell/ Vickie general CHOLECYSTECTOMY 2019 laparoscopic [place] HYSTERECTOMY [facility] Current Medications: Current Facility-Administered Medications Medication Dose [...] Brother Obesity Brot (more content not included)... [facility] 06-15-2023 History and physical note Images from the original note were not included. [facility] - Surgery [facility] Physicians Surgery PATIENT NAME: Giovana Powell [...] Vickie general CHOLECYSTECTOMY 2019 laparoscopic -[place] HYSTERECTOMY [facility] Current Medications: Current Facility-Administered Medications Medication Dose [...] to proceed with plan. ' [facility] 06-15-2023 History and physical note Images from the original note were not included. [facility] - Surgery [facility] Physicians Surgery PATIENT NAME: Giovana Powell [...] Dr. Newell/ Vickie general CHOLECYSTECTOMY 2019 laparoscopic -[place] HYSTERECTOMY [facility] Current Medications: Current Facility-Administered Medications Medication Dose [...] ' documented in this encounter [facility] 06-08-2023 History of Present illness Narrative [facility] BARIATRIC NUTRITION ASSESSMENT / [...] they must have someone in their home 11/05 for the first week following surgery, or [...] RD documented in this encounter [facility] 06-08-2023 History of Present illness Narrative [facility] BARIATRIC NUTRITION ASSESSMENT / [...] RD documented in this encounter [facility] 05-15-2023 Telephone encounter Note Orders mailed- with pain management clearance and neurology clearance form [facility] 05-15-2023 Miscellaneous Notes Orders mailed- [...] recommended proceeding with the evaluation, workup and product support consultant preoperative consultations and testing for the primary procedure as outlined below: BARIATRIC AND METABOLIC SURGERY [facility] PATIENT SUMMARY Giovana Ledezma 72 y.o. female [...] she has been compliant with, both in [place] and now in [place] She will need 6 months of physician [...] General Adelina Lin DO (Addiction Medicine) Dejah Drew, MILL ROLL REWINDER - SALESPERSON ART OBJECTS (Nurse Practitioner) Manjit Ga DO (Psychiatry) Initial New [facility] surgical patient Navigation & Financial Counseling Discussion [...] PRIMARY INSURANCE: Payor: [employer] MEDICARE / Plan: [employer] DUAL ADVANTAGE / Product Type: Medicare HMO [...] 1) Scheduled at new pt surgeon visit: Environmental Projects Advisor (RD) for a Nutrition Assessment (BNA) and [...] surgery. documented in this encounter [facility] 05-14-2023 History of Present illness Narrative [facility] CARE CENTER SURGICAL WEIGHT LOSS MANAGEMENT PROGRAM SUPERVISED [...] Weight: 223 lb 6.4 oz (101 kg) [place] Body Weight: 120 lb (54.4 kg) Initial [...] home O2 Completed by: Juanita Daigle MA [facility]NAG[facility] PRO[facility] PHYSICIAN SUPERVISED [...] Dr. Newell/ Vickie general CHOLECYSTECTOMY 2019 laparoscopic -[place] HYSTERECTOMY [facility] Family History Problem Relation Name Age of [...] No medications on file Discontinued Medications NYAMYC 853512 UNIT/GM POWDER This patient's excess weight is causing the following co-morbid conditions at this time:GERD, Fatty Liver Disease, High Cholesterol, HTN, JENNIFER with or without CPAP, and Other pre-diabetes Initial Diet & Exercise/SPR Visit Weight Metrics: Date of Initial Diet & Exercise Visit: Consult Date: 05/14/23 Initial Weight: Initial Weight: 223 lb 6.4 oz (101 kg) Initial BMI: Initial BMI: 43.63 [place] Body Weight: [place] Body Weight: 120 lb (54.4 kg) Excess [...] DIET HISTORY FORM with patient (located in [employer]) I reviewed all of the patient's medications [...] follow up with her sleep specialist in [place], she also requires pulmonology clearance prior to [...] 05/14/2023 1:31 PM documented in this encounter [facility] 05-13-2023 Note Addended by: BRETT BERNAL on: 05/13/2023 09:07 AM Modules accepted: Orders [facility] 05-13-2023 Note Addended by: BRETT BERNAL on: 05/13/2023 09:07 AM Modules accepted: Orders [facility] 05-13-2023 Note Addended by: BRETT BERNAL on: 05/13/2023 09:07 AM Modules accepted: Orders [facility] 05-13-2023 Note Addended by: BRETT BERNAL on: 05/13/2023 09:07 AM Modules accepted: Orders [facility] 05-13-2023 Note Addended by: BRETT BERNAL on: 05/13/2023 09:07 AM Modules accepted: Orders [facility] 05-13-2023 Telephone encounter Note Signed and printed orders Neuro clearance will be needed once we know name of provider- she has appt in May Psych clearance will defer to our psychologists to obtain records from Dr. Ga [facility] 05-11-2023 Note Plan: I have recommended proceeding with the evaluation, workup and product support consultant preoperative consultations and testing for the primary procedure as outlined below: BARIATRIC AND METABOLIC SURGERY [facility] PATIENT SUMMARY Giovana Ledezma 72 [...] she has been compliant with, both in [place] and now in [place] She will need 6 months of physician [...] PATRICIO (Nurse Practitioner) Manjit Ga DO (Psychiatry) [facility] 05-11-2023 Note Addended by: Jerrell MORRIS on: 05/11/2023 08:06 AM Modules accepted: Orders [facility] 05-11-2023 Note Addended by: Jerrell MORRIS on: 05/11/2023 08:06 AM Modules accepted: Orders [facility] 05-11-2023 Note Addended by: Jerrell MORRIS on: 05/11/2023 08:06 AM Modules accepted: Orders [facility] 05-11-2023 Note Addended by: Jerrell MORRIS on: 05/11/2023 08:06 AM Modules accepted: Orders [facility] 05-11-2023 Note Addended by: Jerrell MORRIS on: 05/11/2023 08:06 AM Modules accepted: Orders [facility] 05-11-2023 Note Addended by: Jerrell MORRIS on: 05/11/2023 08:06 AM Modules accepted: Orders [facility] 05-11-2023 Miscellaneous Notes Addended by: MONICA MORRIS on: 05/11/2023 08:06 AM Modules accepted: Orders Orders pended, Pre op check list scanned to media. EGD order sent to ALS. Plan: I have recommended proceeding with the evaluation, workup and product support consultant preoperative consultations and testing for the primary procedure as outlined below: BARIATRIC AND METABOLIC SURGERY [facility] PATIENT SUMMARY Giovana Ledezma 72 y.o. female [...] she has been compliant with, both in [place] and now in [place] She will need 6 months of physician [...] Ga DO (Psychiatry) Initial New [facility] surgical patient Navigation & Financial Counseling Discussion [...] PRIMARY INSURANCE: Payor: [employer]ARE / Plan: [employer] DUAL ADVANTAGE / Product Type: Medicare HMO [...] 1) Scheduled at new pt surgeon visit: Environmental Projects Advisor (RD) for a Nutrition Assessment (BNA) and [...] and after surgery. documented in this encounter [facility] 05-11-2023 Telephone encounter Note Orders pended, Pre op check list scanned to media. EGD order sent to ALS. [facility] 05-11-2023 Telephone encounter Note Plan: I have recommended proceeding with the evaluation, workup and product support consultant preoperative consultations and testing for the primary procedure as outlined below: BARIATRIC AND METABOLIC SURGERY [facility] PATIENT SUMMARY Giovana Ledezma 72 [...] she has been compliant with, both in [place] and now in [place] She will need 6 months of physician [...] PATRICIO (Nurse Practitioner) Manjit Ga DO (Psychiatry) [facility] 04-30-2023 Note Initial New [facility] surg [...] [] YES [] NO PRIMARY INSURANCE: Payor: [employer] MEDICARE / Plan: [employer] DUAL ADVANTAGE / Product Type: Medicare HMO [...] 1) Scheduled at new pt surgeon visit: Environmental Projects Advisor (RD) for a Nutrition Assessment (BNA) and [...] and lab/testing results before and after surgery. [facility] 04-30-2023 Telephone encounter Note Initial New [facility] surgical patient Navigation & Financial Counseling Discussion [...] PRIMARY INSURANCE: Payor: [employer]ARE / Plan: [facility] DUAL ADVANTAGE / Product Type: Medicare HMO [...] 1) Scheduled at new pt surgeon visit: Environmental Projects Advisor (RD) for a Nutrition Assessment (BNA) and [...] results before and after surgery. [facility] 04-30-2023 History of Present illness Narrative Images from the original note were not included. [facility] SURGICAL PROGRAM INITIAL EVALUATION [...] Vickie general CHOLECYSTECTOMY 2019 laparoscopic -[place] HYSTERECTOMY [facility] Social History: This patient is unaccompanied for [...] I advised them to discuss with their physician/autocad draftsman regarding contraception to prevent during this period of time after surgery. In addition, all patients were counseled on compliance with prescribed vitamin supplementation, office visit follow-up and compliance with program standards. Plan: I have recommended proceeding with the evaluation, workup and product support consultant preoperative consultations and testing for the primary procedure as outlined below: BARIATRIC AND METABOLIC SURGERY [facility] PATIENT SUMMARY Giovana Ledezma 72 y.o. female [...] she has been compliant with, both in [place] and now in [place] She will need 6 months of physician [...] DO (Addiction Medicine) Dejah Drew APRN - SALESPERSON ART OBJECTS (Nurse Practitioner) Manjit Ga DO (Psychiatry) [facility] Rooming Note [...] created documented in this encounter [facility] 12-18-2022 History of Present illness [...] PHONE with this provider practicing within the [facility]. The identity of Jacklyn Abraham was [...] and eating well, mood stable, busy with temple and groups. No hallucinations, still lost track [...] AM Final 11/17/2022 12:07 PM NA Facility: [facility] Specimen Source: NA Admitting Provider: Ordered Date: [...] 3/uL NUCLEATED RBC 0 0-5 Performed By: [facility] [place], [address] Basic Metabolic Profile (BMP) Date Collected Date Received Status Reported/Status Changed Priority 11/17/2022 9:22 AM 11/17/2022 9:22 AM Final 11/17/2022 12:32 PM NA Facility: [facility] Specimen Source: NA Admitting Provider: Ordered Date: [...] 21.0-32.0 mmol/L GAP 5 5-15 Performed By: [facility] [address] 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 [x] Medication: Discussed risks, side effects, benefits and alternatives to prescribed medication: 2). Referrals/Psychotherapy follow up/Co-management with other providers [x] Primary care: [] [facility] [] Alcohol/Drug treatment: [x] Psychoeducation/Counseling [x] Other: -neurologist 3). [x] Emergency Contact Plan: Patient understands to call [employer] at [phone], call 911, or go to the nearest ER as appropriate in case of thoughts of harm to self or others, or acute onset of intolerable side effects. 4.) [x] Physician/MILL ROLL REWINDER Order: See PharmD , customer account representative to document data and make observations of the patient, including observations of physical and mental health symptoms, medication response, side effects and adherence, as well as education. RN will assess patient's health status, provide education with pill boxes and/or administer long-acting injections per orders. documented in this encounter [employer] Work Phone: 12-02-2022 History of Present illness Narrative Jacklyn Powell engaged in a telehealth session via PHONE with this provider practicing within the [facility]. The identity of Natali was verified [...] -Prazosin 1mg tablet: 3T PO HS -Called [facility] to verify it patient receiving medications, patient last got her medications in an adherence pack on 11/07/2022 (likely billed as keys so it won't show up in the dispense report) *Sublocade 100mg/0.5mL: OARRS LF 11/27/22 (prescribed by Adelina Lin DO in [place]) SUBJECTIVE: Spoke with this patient today for a refill appointment, patient has a PMH of bipolar disorder, DID, and severe linnea. She is switching care to a new psychiatrist closer to her home in [place], but her appointment is not until late [...] time. Gets medications in adherence packaging via [facility] in [place]; denies recent missed doses. 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 Thank you, Blanche documented in this encounter [facility] 08-29-2021 Note HNO ID: [id number] Author: Nory Hutchinson APRN.SALESPERSON ART OBJECTS Service: ? Author Type: Nurse Practitioner Type: Procedures Filed: 08/29/2021 6:43 PM Note Text: ED PROCEDURE NOTE: Splinting The risks, benefits, alternatives, and personnel discussed with patient or international representative who consents to the procedure. The [...] managed with no additional personell Nory Hutchinson APRN.SALESPERSON ART OBJECTS [facility] 08-29-2021 Note HNO ID: [id number] Author: RT Desean(R) Service: Nuclear Medicine Author [...] PERIPHERAL IV DATA: Not applicable SIGNED BY: RT Desean(R) August 29, 2021 5:27 PM [facility] 08-29-2021 Note HNO ID: [id number] Author: Nory Hutchinson APRN.SALESPERSON ART OBJECTS Service: ? Author Type: Nurse Practitioner Type: Progress Notes Filed: 08/29/2021 6:43 PM Note Text: This note was created using Engezniriter. Subjective Giovana Powell is a 71 year [...] history is provided by the patient. No humanities and languages professor was used. Fall The accident occurred 3 [...] Times 3 - COLONOSCOP W/ OR W/O [facility] SPEC 06/27/11 - COLONOSCOP W/ OR W/O [facility] SPEC 11/24/14 poor prep -5 year follow [...] tablet Take 1 (more content not included)... [facility] documented as of this encounter (statuses as of 04/16/2022) [facility] [place] [facility]* Diagnosis Bipolar disorder with psychotic features ([facility]-CMS)- Primary Dissociative identity disorder (HCC-CMS) Dissociative identity disorder documented in this encounter [facility] [employer] Work Phone: Evaluation note* Diagnosis Bipolar disorder with psychotic features ([facility]-CMS)- Primary Dissociative identity disorder ([facility]-CMS) Dissociative identity disorder Opioid use disorder, moderate, on maintenance therapy ([facility]-CMS) documented in this encounter [facility] Work Phone: Evaluation note* Diagnosis Tobacco use disorder- Primary Primary hypertension Unspecified essential hypertension Prediabetes Other abnormal glucose Morbid obesity with BMI of 40.0-44.9, adult ([facility]) JENNIFER (obstructive sleep apnea) Obstructive sleep apnea (adult) (pediatric) High cholesterol Pure hypercholesterolemia History of substance abuse (CMS/HCC) ([facility]) Other, mixed, or unspecified nondependent drug abuse, unspecified [facility] Diagnosis Chronic obstructive pulmonary disease, unspecified COPD type (HCC)- Primary Primary hypertension Unspecified essential hypertension Gastroesophageal reflux disease, unspecified whether esophagitis present Tobacco use disorder JENNIFER (obstructive sleep apnea) Obstructive sleep apnea (adult) (pediatric) High cholesterol Pure hypercholesterolemia Morbid obesity with BMI of 40.0-44.9, adult (HCC) Functional dyspepsia Dyspepsia and other specified disorders of function of stomach [facility] Diagnosis Morbid obesity due to excess calories (HCC)- Primary Hypertension, unspecified type Functional dyspepsia Dyspepsia and other specified disorders of function of stomach documented in this encounter [facility]* Diagnosis Prediabetes- Primary Other abnormal glucose Gastroesophageal reflux disease, unspecified whether esophagitis present Functional dyspepsia Dyspepsia and other specified disorders of function of stomach documented in this encounter [facility]* Diagnosis GERD (gastroesophageal reflux disease)- Primary Esophageal reflux Functional dyspepsia Dyspepsia and other specified disorders of function of stomach Morbid obesity with BMI of 40.0-44.9, adult ([facility]) Chronic superficial gastritis without bleeding JENNIFER (obstructive sleep apnea) Obstructive sleep apnea (adult) (pediatric) documented in this encounter [facility]* Diagnosis BMI 40.0-44.9, adult (HCC)- Primary Gastroesophageal reflux disease, unspecified whether esophagitis present Class 3 severe obesity with serious comorbidity and body mass index (BMI) of 40.0 to 44.9 in adult, unspecified obesity type (HCC) documented in this encounter [facility]* Diagnosis Chronic obstructive pulmonary disease, unspecified COPD type (HCC)- Primary Encounter for pre-operative respiratory clearance JENNIFER (obstructive sleep apnea) Obstructive sleep apnea (adult) (pediatric) Smoker Tobacco use disorder Morbid obesity (HCC) Morbid obesity documented in this encounter [facility]* Diagnosis Morbid obesity due to excess calories (HCC)- Primary Hypertension, unspecified type documented in this encounter [facility]* Diagnosis Chronic obstructive pulmonary disease, unspecified COPD type (HCC)- Primary Primary hypertension Unspecified essential hypertension Gastroesophageal reflux disease, unspecified whether esophagitis present Tobacco use disorder JENNIFER (obstructive sleep apnea) Obstructive sleep apnea (adult) (pediatric) High cholesterol Pure hypercholesterolemia Morbid obesity with BMI of 40.0-44.9, adult (HCC) [facility] Diagnosis Morbid obesity due to excess calories (HCC)- Primary Hypertension, unspecified type documented in this encounter [facility] note* Diagnosis Vitamin D deficiency- Primary Low vitamin B12 level High blood magnesium level Disorders of magnesium metabolism documented in this encounter [facility] note* Diagnosis Morbid obesity due to excess calories (HCC)- Primary Hypertension, unspecified type documented in this encounter [facility] note* Diagnosis Chronic obstructive pulmonary disease, unspecified COPD type (HCC)- Primary Primary hypertension Unspecified essential hypertension Gastroesophageal reflux disease, unspecified whether esophagitis present Tobacco use disorder JENNIFER (obstructive sleep apnea) Obstructive sleep apnea (adult) (pediatric) High cholesterol Pure hypercholesterolemia Morbid obesity with BMI of 40.0-44.9, adult (HCC) documented in this encounter [facility] note* Diagnosis Prediabetes- Primary Other abnormal glucose Gastroesophageal reflux disease, unspecified whether esophagitis present documented in this encounter [facility] note* Diagnosis Morbid obesity due to excess calories (HCC)- Primary Hypertension, unspecified type documented in this encounter [facility] note* Diagnosis Chronic obstructive pulmonary disease, unspecified COPD type (HCC)- Primary Primary hypertension Unspecified essential hypertension Gastroesophageal reflux disease, unspecified whether esophagitis present Tobacco use disorder JENNIFER (obstructive sleep apnea) Obstructive sleep apnea (adult) (pediatric) High cholesterol Pure hypercholesterolemia Morbid obesity with BMI of 40.0-44.9, adult (HCC) documented in this encounter [facility] Discharge instructions* Attachments The following attachments cannot be sent through Care Everywhere. * Upper GI Endoscopy Discharge Instructions (Macedonian) [facility] Consultation (Routine) - Pending Review Specialty Diagnoses / Procedures Referred By Kori t Referred To Contact Pulmonary Disease / Pulmonology Diagnoses Chronic obstructive pulmonary disease, unspecified COPD type (HCC) Tobacco use disorder JENNIFER (obstructive sleep apnea) Morbid obesity with BMI of 40.0-44.9, adult (HCC) Procedures AL OFFICE/OUTPATIENT [facility] 60-74 MINUTES Brett Bernal PA [address] [place] [address] [facility] Ach Pulm Lnc [address] [place] [address] Referral ID Status Reason Start Date Expiration Date Visits Requested Visits Authorized [id number] Pending Review Specialty Services Required 05/13/2023 05/12/2024 1 1 * Consultation (Elective) - Pending Review Specialty Diagnoses / Procedures Referred By Contac t Referred To Contact Cardiology Diagnoses Chronic obstructive pulmonary disease, unspecified COPD type (HCC) Primary hypertension Tobacco use disorder JENNIFER (obstructive sleep apnea) Morbid obesity with BMI of 40.0-44.9, adult (HCC) Procedures AL OFFICE/OUTPATIENT NEW HIGH MDM 60-74 MINUTES Brett Bernal PA [address] [place] [address] [facility] Cf Card [address] [place] [address] Referral ID Status Reason Start Date Expiration Date Visits Requested Visits Authorized [id number] Pending Review Specialty Services Required 05/13/2023 05/12/2024 [...] FoundDocuments on File Type Date Recorded Patient Patient Appointment Coordinator Expl anation Advance Directive(s) 01/22/2017 9:46 AM [...] Paul MD [address] [place] [address] Referral ID Status Reason Start Date Expiration Date V isits Requested Visits Authorized [id number] Incomplete 06/25/2023 12/22/2023 1 1 Specialty Diagnoses / Procedures Referred By Contac t Referred To Contact Kareem Hartmann MD [address] [place] [address] Referral ID Status Reason Start Date Expiration Date V isits Requested Visits Authorized [id number] Pending Review 1 1 Referral ID Status Reason Start Date Expiration Date V isits Requested Visits Authorized [id number] Pending Review 1 1 Referral ID Status Reason Start Date Expiration Date V isits Requested Visits Authorized [id number] Authorized 1 1 Referral ID Status Reason Start Date Expiration Date Visits Re quested Visits Authorized [id number] Closed 1 1 Additional Source Comments INFORMATION SOURCE (unrecogn ized section and content) DATE CREATED AUTHOR AUTHOR'S ORGANIZ ATION 01/04/2019 [facility] DATE CREATED AUTHOR AUTHOR'S ORGANIZ ATION 02/19/2019 [facility] DATE CREATED AUTHOR AUTHOR'S ORGANIZ ATION 10/04/2020 [facility] DATE CREATED AUTHOR AUTHOR'S ORGANIZ ATION 12/12/2020 [facility] DATE CREATED AUTHOR AUTHOR'S ORGANIZ ATION 04/17/2022 [facility] DATE CREATED AUTHOR AUTHOR'S ORGANIZ ATION 10/10/2023 [facility] Source Comments (unrecognize d section and content) In the event this informatio n is protected by the Federal Confidentiality of Alcohol and Drug Abuse Patient Records regulations: The Federal rules restrict any use of the information to criminally investigate or prosecute any alcohol or drug abuse patient.[facility] Reason for Visit (unrecogniz ed section and content) Reason Comments Medication Management Telehealth (Audio) Follow Up Reason Comments Follow Up For evaluation of mo od Telehealth (Audio) Reason Comments Surgical Consult New Surg Specialty Diagnoses / Procedures Referred By Kori kirkpatrick Referred To Contact Bariatric Surgery / Bariatrics Diagnoses Obesity, unspecified Procedures evDejah Lewis, MILL ROLL REWINDER - SALESPERSON ART OBJECTS [address] [facility] [address] [place] [address] [facility] Surg [address] [place] [address] Referral ID Status Reason Start Date Expiration Date V isits Requested Visits Authorized [id number] Pending Review 03/17/2023 03/16/2024 1 1 Reason [...] Diagnoses Functional dyspepsia Functional dyspepsia [K30] Procedures AL EGD TRANSORAL BIOPSY SINGLE/MULTIPLE EGD WITH BIOPSY Susie Ledezma MD [address] [place] [address] [address] [place] [address] Referral ID Status Reason Start Date Expiration Date Visits Re quested Visits Authorized [id number] 1 1 Reason Comments Weight Loss D/E [...] Teams (unrecognized sec tion and content) Senior Water Resources Engineer Relationship Specialty Start Date End Date Leopoldo Baird [address] [place], [place] [address] PCP - General 12/05/20 Adelina Lin DO [address] [place] [phone] Addiction Medicine 04/30/23 Dejah Drew MILL ROLL REWINDER - SALESPERSON ART OBJECTS [address] [place] [phone] Nurse Practitioner 04/30/23 Manjit Ga DO [address] [place] [address] Psychiatry 04/30/23 Senior Water Resources Engineer Relationship Specialty Start Date End Date Leopoldo Baird [address] [place] [address] PCP - General 12/05/20 Adelina Lin DO [address] [place] [phone] Addiction Medicine 04/30/23 Dejah Drew MILL ROLL REWINDER - [facility] [address] [place] [phone] Nurse Practitioner 04/30/23 Manjit Ga DO [address] [place] [address] Psychiatry 04/30/23 Susie Ledezma MD [address] [place] [address] [address] [place] [address] Surgeon General Surgery 05/11/23 Senior Water Resources Engineer Relationship Specialty Start Date End Date Leopoldo Baird [address] [place], [place] [phone] PCP - General 12/05/20 Adelina Lin DO [address] [place] [phone] Addiction Medicine 04/30/23 Dejah Drew APRN - SALESPERSON ART OBJECTS [address] [place] [address] Nurse Practitioner 04/30/23 Manjit Ga DO [address] [place] [address] Psychiatry 04/30/23 Susie Ledezma MD [address] [place] [address] [address] [place], [place] [id number] Surgeon General Surgery 05/11/23 Senior Water Resources Engineer Relationship Specialty Start Date End Date Leopoldo Baird [address] [place] [phone] PCP - General Internal Medicine 06/03/23 Adelina Lin DO [address] [place] [phone] Addiction Medicine 04/30/23 Dejah Drew APRN - SALESPERSON ART OBJECTS [address] [place] [address] Nurse Practitioner 04/30/23 Manjit Ga DO [address] [place] [address] Psychiatry 04/30/23 Susie Ledezma MD [address] [place] [address] [address] [place], [place] [id number] Surgeon General Surgery 05/11/23 Senior Water Resources Engineer Relationship Specialty Start Date End Date Leopoldo Baird [address] [facility] [address] [place] [phone] PCP - General Internal Medicine 06/03/23 Adelina Lin DO [address] [place] [phone] Addiction Medicine 04/30/23 Dejah Drew APRN - SALESPERSON ART OBJECTS [address] [facility] [address] [place] [address] Nurse Practitioner 04/30/23 Manjit Ga DO [address] [place] [address] Psychiatry 04/30/23 Susie Ledezma MD [address] [place] [address] Surgeon General Surgery 05/11/23 Senior Water Resources Engineer Relationship Specialty Start Date End Date Leopoldo Baird [address] [facility] [address] [place] [phone] PCP - General Internal Medicine 06/03/23 Adelina Lin DO [address] [place] [phone] Addiction Medicine 04/30/23 Dejah Drew APRN - SALESPERSON ART OBJECTS [address] [facility] [address] [place] [phone] Nurse Practitioner 04/30/23 Manjit Ga DO [address] [place] [address] Psychiatry 04/30/23 Susie Ledezma MD [address] [place] [address] [address] [place] [address] Surgeon General Surgery 05/11/23 Senior Water Resources Engineer Relationship Specialty Start Date End Date Leopoldo Baird [address] [place] [address] PCP - General Internal Medicine 06/03/23 Adelina Lin DO [address] [place] [address] Addiction Medicine 04/30/23 Dejah Drew APRN - SALESPERSON ART OBJECTS [address] [place] [address] [address] [place] [address] Nurse Practitioner 04/30/23 Manjit Ga DO [facility] [address] [place] [address] Psychiatry 04/30/23 Susie Ledezma MD [address] [place] [address] [address] [place] [address] Surgeon General Surgery 05/11/23 Senior Water Resources Engineer Relationship Specialty Start Date End Date AlvinohaileyVitaliymiramanda Saldana [address] [facility] [address] [place] [phone] PCP - General Internal Medicine 06/03/23 Adelina Lin DO [address] [place] [phone] Addiction Medicine 04/30/23 Dejah Drew APRN - SALESPERSON ART OBJECTS [address] [facility] [address] [place] [phone] Nurse Practitioner 04/30/23 Manjit Ga DO [address] [place] [address] Psychiatry 04/30/23 Susie Ledezma MD [address] [place] [address] [address] [place], [place] [id number] Surgeon General Surgery 05/11/23 Senior Water Resources Engineer Relationship Specialty Start Date End Date Leopoldo Baird [address] [place] [address] PCP - General Internal Medicine 06/03/23 Adelina Lin DO [address] [place] [address] Addiction Medicine 04/30/23 Dejah Drew APRN - PATRICIO [address] [facility] [address] [place] [phone] Nurse Practitioner 04/30/23 Manjit Ga DO [address] [place] [address] Psychiatry 04/30/23 Susie Ledezma MD [address] [place] [address] [address] [place] [address] Surgeon General Surgery 05/11/23 Senior Water Resources Engineer Relationship Specialty Start Date End Date Leopoldo Baird PCP - General 12/05/20 06/02/23 Leopoldo Baird [address] [facility] [address] [place] [address] PCP - General Internal Medicine 06/03/23 Adelina Lin DO [address] [place] [address] Addiction Medicine 04/30/23 Dejah Drew MILL ROLL REWINDER - SALESPERSON ART OBJECTS [address] [place] [phone] Nurse Practitioner 04/30/23 Manjit Ga DO [address] [place] [address] Psychiatry 04/30/23 Susie Ledezma MD [address] [place] [address] [address] [place], [place] [id number] Surgeon General Surgery 05/11/23 Senior Water Resources Engineer Relationship Specialty Start Date End Date Leopoldo Baird [address] [place] [address] PCP - General Internal Medicine 06/03/23 Adelina Lin DO [address] [place] [address] Addiction Medicine 04/30/23 Dejah Drew MILL ROLL REWINDER - SALESPERSON ART OBJECTS [address] [place] [address] Nurse Practitioner 04/30/23 Manjit Ga DO [address] [place] [address] Psychiatry 04/30/23 Susie Ledezma MD [address] [place] [address] [address] [place], [place] [address] Surgeon General Surgery 05/11/23 Senior Water Resources Engineer Relationship Specialty Start Date End Date Leopoldo Baird [address] [facility] [address] [place] [phone] PCP - General Internal Medicine 06/03/23 Adelina Lin DO [address] [place] [phone] Addiction Medicine 04/30/23 Dejah Drew APRN - SALESPERSON ART OBJECTS [address] [place] [address] [address] [place] [phone] Nurse Practitioner 04/30/23 Manjit Ga DO [address] [place] [address] Psychiatry 04/30/23 Susie Ledezma MD [address] [place] [address] [address] [place] [address] Surgeon General Surgery 05/11/23 Senior Water Resources Engineer Relationship Specialty Start Date End Date Leopoldo Baird [address] [facility] [address] [place] [phone] PCP - General Internal Medicine 06/03/23 Adelian Lin DO [address] [place] [address] Addiction Medicine 04/30/23 Dejah Drew APRN - SALESPERSON ART OBJECTS [address] [place] [address] [address] [place] [phone] Nurse Practitioner 04/30/23 Manjit Ga DO [address] [place] [address] Psychiatry 04/30/23 Susie Ledezma MD [address] [place] [address] [address] [place] [address] Surgeon General Surgery 05/11/23 Senior Water Resources Engineer Relationship Specialty Start Date End Date Leopoldo Baird [address] [facility] [address] [place] [phone] PCP - General Internal Medicine 06/03/23 Adelina Lin DO [address] [place] [phone] Addiction Medicine 04/30/23 Dejah Drew APRN - SALESPERSON ART OBJECTS [address] [place] [address] [address] [place] [phone] Nurse Practitioner 04/30/23 Manjit Ga DO [address] [place] [address] Psychiatry 04/30/23 Susie Ledezma MD [address] [place] [address] [address] [place] [address] Surgeon General Surgery 05/11/23 Senior Water Resources Engineer Relationship Specialty Start Date End Date AlvinohaileyVitaliyhughkadie Saldana [address] [facility] [address] [place] [address] PCP - General Internal Medicine 06/03/23 Adelina Lin DO [address] [place] [phone] Addiction Medicine 04/30/23 Dejah Drew APRN - SALESPERSON ART OBJECTS [address] [place] [phone] Nurse Practitioner 04/30/23 Manjit Ga DO [address] [place] [address] Psychiatry 04/30/23 Susie Ledezma MD [address] [place] [address] [address] [place] [address] Surgeon General Surgery 05/11/23 Senior Water Resources Engineer Relationship Specialty Start Date End Date Leopoldo Baird PCP - General 12/05/20 06/02/23 Leopoldo Baird [address] [place] [phone] PCP - General Internal Medicine 06/03/23 Adelina Lin DO [address] [place] [address] Addiction Medicine 04/30/23 Dejah Drew APRN - SALESPERSON ART OBJECTS [address] [facility] [address] [place] [phone] Nurse Practitioner 04/30/23 Manjit Ga DO [address] [place] [address] Psychiatry 04/30/23 Susie Ledezma MD [address] [place] [address] [address] [place] [address] Surgeon General Surgery 05/11/23 Senior Water Resources Engineer Relationship Specialty Start Date End Date Leopoldo Baird [address] [place] [phone] PCP - General Internal Medicine 06/03/23 Adelina Lin DO [address] [place] [phone] Addiction Medicine 04/30/23 Dejah Drew APRN - SALESPERSON ART OBJECTS [address] [place] [phone] Nurse Practitioner 04/30/23 Manjit Ga DO [address] [place] [address] Psychiatry 04/30/23 Susie Ledezma MD [address] [place] [address] [address] [place], [place] [id number] Surgeon General Surgery 05/11/23 Senior Water Resources Engineer Relationship Specialty Start Date End Date Leopoldo Baird [address] [facility] [address] [place] [address] PCP - General Internal Medicine 06/03/23 Adelina Lin DO [address] [place] [address] Addiction Medicine 04/30/23 Dejah Drew APRN - SALESPERSON ART OBJECTS [address] [place] [address] Nurse Practitioner 04/30/23 Manjit Ga DO [address] [place] [address] Psychiatry 04/30/23 Susie Ledezma MD [address] [place] [address] [address] [place] [address] Surgeon General Surgery 05/11/23 Senior Water Resources Engineer Relationship Specialty Start Date End Date Leopoldo Baird PCP - General 12/05/20 06/02/23 Leopoldo Baird [address] [facility] [address] [place] [id number] PCP - General Internal Medicine 06/03/23 Adelina Lin DO [address] [place] [id number] Addiction Medicine 04/30/23 Dejah Drew APRN - CNP [address] [facility] [address] [place] [phone] Nurse Practitioner 04/30/23 Manjit Ga DO [address] [place] [address] Psychiatry 04/30/23 Susie Ledezma MD [address] [place] [address] [address] [place] [address] Surgeon General Surgery 05/11/23 Continuous Active and [...] BE BASED ON THE PRIMARY CLINICAL RECORDS. [employer] provides no warranty or guarantee of the accuracy or completeness of information in this document.
[2023-10-16 21:02] LABS: Bacteria 0 SEEN /hpf (None Seen); Mucous, Urine 0 SEEN /hpf (<or=2+); Red Blood Cells-Urine 0 SEEN /hpf (0-5); White Blood Cells 0 SEEN /hpf (0-5)
--- NOTE | 2023-10-16 21:02 | RAD_ITS ---
EXAM: XR CHEST, 1 VIEW CLINICAL INDICATION: SOB TECHNIQUE: Frontal view of the chest. COMPARISON: 10/10/2023. FINDINGS: LUNGS AND PLEURAL SPACES: Unremarkable. No consolidation or edema. No pneumothorax. No effusion. HEART: Unremarkable. Cardiac silhouette not enlarged. MEDIASTINUM: Central airways and mediastinal contour are unremarkable. BONES/JOINTS: Unremarkable. No acute fracture. SOFT TISSUES: Unremarkable. LYMPH NODES: Calcified right hilar lymph nodes. RAD/Chest 1 View (Portable) IMPRESSION: 1. Calcified right hilar lymph nodes. 2. No acute cardiopulmonary abnormality. No change. Electronically Signed: Jacques Davenport MD at 22:15 EST ,
[2023-10-16 21:03] LABS: Color, Urine Yellow (Yellow); Glucose, Dipstick Normal (Normal); Ketone-Dipstick 5 mg/dl (Negative); Leukocyte Esterase-Dipstick Negative /ul (Negative); Nitrite-Dipstick Negative (Negative); Occult Blood-Urine 10 /ul (Negative); Protein-Dipstick 15 mg/dl (Negative); Specific Gravity, Urine 1.005 (1.002-1.030); Urine Bilirubin Dipstick Negative (Negative); Urine Clarity Clear (Clear); Urine Urobilinogen Normal (Normal)
[2023-10-16 21:10] LABS: Bedside Glucose 107 mg/dL (74-106)
[2023-10-16 21:21] LABS: Alcohol, Blood (Medical)-Serum < 3.0 mg/dL; Valproic Acid (Depakene) Level 69 ug/mL (50-100)
[2023-10-16 21:22] LABS: AST(SGOT) 31 U/L (15-37); Alanine Aminotransfer ALT/SGPT 40 U/L (13-56); Albumin, Serum 3.2 g/dL (3.2-5.0); Alkaline Phosphatase 91 U/L (45-117); Anion Gap 10 (5-15); BUN 8 mg/dL (7-18); BUN/Creat Ratio 8.1 RATIO (10-20); Calcium,Total 9.5 mg/dL (8.5-10.1); Chloride 80 mmol/L (98-107); Creatinine, Serum 0.99 mg/dL (0.55-1.02); Differential Indicated MANUAL DIFF; EST Glomerular Filtration Rate 59 mL/min (>60); Est Glom Filt Rate - Afr Amer 71 mL/min (>60); Estimated Creatinine Clearance 37.44 ml/min; Globulin 3.1 g/dL (2.2-4.2); Glucose 103 mg/dL (74-106); Lipase 12 U/L (13-75); Potassium 3.7 mmol/L (3.5-5.1); Protein, Total 6.3 g/dL (6.4-8.2); Sodium Level 117 mmol/L (136-145); Troponin-I HS 18 pg/mL (3.0-54.0)
[2023-10-16 21:24] LABS: Squamous Epithelial Cells - UA 0-5 SEEN /hpf (5-10)
[2023-10-16 21:29] LABS: Lymphocyte 22 % (19-41); Monocyte 6 % (0-10); Myelocyte 3 % (0-0); Neutrophil-Band 4 % (0-5); Neutrophil-Segmented 65 % (47-70); Total Cells Counted 100 (MANUAL DIFF)
[2023-10-16 21:30] LABS: Platelet Estimate MOD INC (ADEQ); Red Cell Morphology N CHROM NORMAL (NORM C&C)
[2023-10-16 21:31] LABS: Anisocytosis RARE; Macrocytosis RARE; Ovalocyte RARE
[2023-10-16 21:35] VITALS: BP 210/108; PULSE 85; RESP 22; O2SAT 95
[2023-10-16 21:35] LABS: Absolute Neutrophil Count 10.4 X10^3/uL (2.0-7.7)
--- NOTE | 2023-10-16 22:42 | PCM.HP.STD ---
HPI - General General Date of Admission: 10/16/23 Date of Service: 10/16/23 Chief Complaint: Altered mental status, fatigue HPI Narrative ALEXIA POWELL, is a 73 F who presented to [facility] ED on 10/16/2023 after being brought in by her daughter for altered mental status and fatigue. Patient seen at bedside in the ED, daughter present. Patient was recently hospitalized at [facility] from 10/10 through 10/13. Similar presentation on 10/10, patient was found to have acute cystitis and hyponatremia. Was suspected that patient's altered mental status was secondary to these factors. Patient showed good improvement during the admission and her encephalopathy resolved prior to discharge. On further chart review, patient was hospitalized from 09/27 to 09/30 for very similar presentation to now. Presented with altered mental status, was found to have hyponatremia with sodium 119. Was given hypertonic saline in the ED with improvement in sodium to 123. Nephrology followed, sodium slowly improved to high 120s prior to discharge. 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 Patient also presented to the ED with hyponatremia at beginning of September as well. Nephrology noted that patient's sodium level was normal in April 2023, recent hyponatremia issues have been new for her. Patient lives at home alone, was discharged home with home health care; previously had home health care coming to see her. Patient's daughter also goes over to the house to see her quite frequently. Daughter states that she went to see the patient earlier today and found the patient down on the ground. States the patient was confused and generally seemed off . Daughter was unsure if patient hit her head but did not note any significant wounds. On my interview, patient was sitting up in bed and making eye contact with me. Was able to tell me her name and that she was at [facility], but otherwise was not answering questions appropriately. Was unable to tell me the year or the month, and was unable to explain what brought her into the hospital today. Patient otherwise denies any acute pain or discomfort. No other acute concerns currently. [facility] Medical History Abdominal pain Actinic keratoses Anemia Arthritis Atypical chest pain Back problem Basal cell carcinoma of right forehead Basal cell carcinoma of right medial cheek Basal cell carcinoma of upper lip Benign neoplasm of skin of cheek Bilateral lower extremity edema Bladder disease Cancer COPD (chronic obstructive pulmonary disease) Cutaneous candidiasis DDD (degenerative disc disease) Debility Dermatitis Diabetes Dietary restriction Dissociative identity disorder Dizziness Drug abuse Flu vaccine need Frequent falls Gastric reflux Hemangioma of face Hepatitis High cholesterol History of edema History of stress test History of UTI Hypertension Injury of back Injury of head and neck Intertrigo Intradermal nevus Kidney disease Kidney failure Left ankle pain Left wrist fracture Loose, teeth Low iron Manic episode Morbid obesity Multiple personalities Neoplasm of skin of eyelid Neoplasm of skin of nose Neurofibroma of neck Obesity (BMI 30-39.9) Osteoarthritis Osteoporosis Panic attacks Prediabetes Primary osteoarthritis, left shoulder Rib pain on right side Seizures Shortness of breath on exertion Substance abuse Tumors Type 2 diabetes mellitus Urinary incontinence Venous insufficiency of both lower extremities Walker as ambulation aid Wears glasses Weight gain Home Medications acetaminophen 650 mg tablet,extended release (Tylenol Arthritis Pain) 650 mg PO Q12H PRN pain 01/23/21 [History Last Taken Unknown] Handicap Placard #1 ea 02/07/21 [Rx Last Taken Unknown] inhalational spacing device (POCKET CHAMBER spacer) #1 ea 06/26/21 [Rx Last Taken Unknown] buprenorphine 100 mg/0.5 mL solution,exten.rel.subcutaneous syringe 100 mg subcut QMONTH WITHDRAWAL SYMPTOM CONTROL 08/07/21 [History Last Taken 09/17/23] ascorbic acid (vitamin C) 500 mg capsule 500 mg PO DAILY vitamin 07/08/22 [History Last Taken Unknown] Incentive Spirometer #1 ea 08/05/22 [Rx Last Taken Unknown] ferrous sulfate 324 mg (65 mg iron) tablet,delayed release 324 mg PO Q OTHER DAY supplement #90 tabs 11/17/22 [Rx Last Taken Unknown] metoprolol succinate 50 mg tablet,extended release 24 hr 50 mg PO DAILY blood pressure #90 tabs 01/05/23 [Rx Last Taken Unknown] mirabegron 50 mg tablet,extended release 24 hr (Myrbetriq) 50 mg PO Q24H diabetic 05/07/23 [History Last Taken Unknown] metoprolol succinate 25 mg tablet,extended release 24 hr 25 mg PO QHS blood perssure #90 tabs 05/08/23 [Rx Last Taken Unknown] rosuvastatin 40 mg tablet 40 mg PO DAILY cholesterol #90 tabs 05/08/23 [Rx Last Taken Unknown] miconazole nitrate 2 % topical powder (Desenex) 1 applic topical BID skin health #85 grams 07/10/23 [Rx Last Taken Unknown] blood sugar diagnostic (FreeStyle Lite Strips) #100 ea 07/15/23 [Rx Last Taken Unknown] blood-glucose meter (FreeStyle Lite Meter kit) #1 ea 07/15/23 [Rx Last Taken Unknown] lancets 28 gauge (FreeStyle Lancets) #200 ea 07/15/23 [Rx Last Taken Unknown] divalproex 500 mg tablet,extended release 24 hr 500 mg PO BID seizure #60 tabs 07/21/23 [Rx Last Taken Unknown] calcium carbonate 600 mg calcium (1,500 mg) tablet 600 mg PO BID supplement #180 tabs 08/06/23 [Rx Last Taken Unknown] lisinopril 40 mg tablet 40 mg PO QAM blood pressure #90 tabs 08/28/23 [Rx Last Taken Unknown] nicotine 21 mg/24 hr daily transdermal patch 1 patch transdermal Q24H to stop smoking #28 ea 09/16/23 [Rx Last Taken Unknown] cariprazine 3 mg capsule (Vraylar) 3 mg PO Q24H depression 09/19/23 [History Last Taken Unknown] fesoterodine 4 mg tablet,extended release 24 hr 4 mg PO DAILY bladder spasms 09/19/23 [History Last Taken Unknown] lamotrigine 200 mg tablet 200 mg PO QHS depression 09/19/23 [History Last Taken Unknown] meloxicam 15 mg tablet 15 mg PO DAILY pain 09/19/23 [History Last Taken Unknown] hydralazine 50 mg tablet 50 mg PO TID blood pressure #90 tabs 09/21/23 [Rx Last Taken Unknown] denosumab 60 mg/mL subcutaneous syringe (Prolia) 60 mg subcut [id number] bone health #1 mL 09/25/23 [Rx Last Taken Unknown] metformin 500 mg tablet,extended release 24 hr 500 mg PO BID diabetes #60 tabs 09/25/23 [Rx Last Taken Unknown] lactulose 10 gram/15 mL oral solution 10 g (15 mL) PO BID laxative #946 mL 10/14/23 [Rx Last Taken Unknown] Allergy/AdvReac Type Severity Reaction Status Date / Time iloperidone [From Fanapt] Allergy Severe Other Verified 10/16/23 19:38 paliperidone [From Invega] Allergy Severe increased Verified 10/16/23 19:38 psychiatric symptoms lurasidone [From Latuda] Allergy Other Verified 10/16/23 19:38 trazodone AdvReac Severe Other Verified 10/16/23 19:38 theophylline AdvReac Other Verified 10/16/23 19:38 Family History Brother Colon cancer Lung cancer Aunt Obesity Sister Obesity Mother Rheumatoid arthritis Father Alzheimer disease Brother Alzheimer disease Surgical History H/O hernia repair H/O: hysterectomy History of 3 sections History of basal cell carcinoma excision History of History of carpal tunnel surgery History of cholecystectomy History of colonoscopy History of endoscopy History of excision of lesion History of hernia repair Social History Smoking Status: Former smoker Tobacco: How many years used: 20 how long ago did patient quit smoking: second hand exposure: No alcohol intake: never substance use type: former substance user Date of last use: Cocaine what type of physical activity do you participate in: none vince/tenriism: Zoroastrianism seatbelt use: always ROS Constitutional Constitutional: Denies fatigue or weakness Cardiovascular Cardiovascular: Denies chest pain Respiratory/Chest Respiratory/Chest: Denies cough Gastrointestinal Gastrointestinal: Denies abdominal pain Vital Signs Vital Signs Vital Signs: 10/16/23 19:36 10/16/23 21:35 Temperature 97.1 F L Temperature Source Temporal Pulse Rate 82 85 Respiratory Rate 16 22 H Blood Pressure 181/97 H 210/108 H Blood Pressure Mean 125 142 Pulse Ox 93 95 Oxygen Delivery Method Room Air Room Air Weight Weight: 96.2 kg Body Mass Index (BMI) 41.4 Physical Exam Const alert and no apparent distress Constitutional Narrative: Elderly female, obese, sitting up comfortably in bed, alert and oriented x [address], not oriented to time and otherwise not answering most questions appropriately, no acute distress. General Appearance: cooperative and comfortable HEENT normocephalic, head/scalp atraumatic, hearing grossly normal bilaterally, nasal mucous membranes and turbinates normal and moist oral mucous membranes Eyes PERRL, EOMs intact bilaterally and conjunctivae normal Neck full ROM, no lymphadenopathy and supple Lymph Lymphatic: no lymphadenopathy noted Chest inspection of chest normal Resp normal respiratory effort, normal air movement, no use of accessory muscles and clear to auscultation bilaterally Cardio regular rate, regular rhythm, no murmurs and peripheral pulses 2+ throughout GI normal to inspection, nondistended, normoactive bowel sounds, soft to palpation, non-tender and non-distended Back/Spine normal ROM Extremity normal to inspection and no pedal edema Skin no rashes or lesions noted Neuro moves all extremities and no focal motor deficits Results Lab / Micro Data 10/16/23 20:00 10/16/23 20:00 Labs: Laboratory Results - last 24 hr 10/16/23 20:00: WBC 15.0 H, RBC 4.22, Hgb 13.2, Hct 37.7, MCV 89.3 D, MCH 31.3, MCHC 35.0 D, RDW Std Deviation 45.0 H, RDW Coeff of Tami 13.9, Plt Count 536 H, MPV 8.7, Neut % (Auto) Not Reportable, Absolute Neuts (auto) 10.4 H, Absolute Lymphs (auto) 3.30, Total Counted 100, Neutrophils % (Manual) 65, Band Neutrophils % 4, Lymphocytes % (Manual) 22, Monocytes % (Manual) 6, Myelocytes % 3 H, Diff Path Review May foll, Platelet Estimate MOD INC, RBC Morphology N CHROM, Anisocytosis RARE, Macrocytosis RARE, Ovalocytes RARE, Sodium 117 L*, Potassium 3.7, Chloride 80 L, Carbon Dioxide 27.0, Anion Gap 10, BUN 8, Creatinine 0.99, Estim Creat Clear Calc 37.44, Est GFR (MDRD) Af Amer 71, Est GFR (MDRD) Non-Af 59 L, BUN/Creatinine Ratio 8.1 L, Glucose 103, Calcium 9.5, Total Bilirubin 0.60, AST 31, ALT 40, Alkaline Phosphatase 91, Ammonia 43.0 H, Troponin I High Sens 18, Total Protein 6.3 L, Albumin 3.2, Globulin 3.1, Albumin/Globulin Ratio 1.0, Lipase 12 L 10/16/23 20:49: Valproic Acid 69, Ethyl Alcohol < 3.0 10/16/23 20:52: POC Glucose 107 H 10/16/23 20:57: Urine Color Yellow, Urine Clarity Clear, Urine pH 7.0, Ur Specific Bangs 1.005, Urine Protein 15 H, Urine Glucose (UA) Normal, Urine Ketones 5 H, Urine Occult Blood 10 H, Urine Nitrite Negative, Urine Bilirubin Negative, Urine Urobilinogen Normal, Ur Leukocyte Esterase Negative, Urine RBC 0 SEEN, Urine WBC 0 SEEN, Ur Squamous Epith Cells 0-5 SEEN, Urine Bacteria 0 SEEN, Urine Mucus 0 SEEN Micro: Microbiology 10/16/23 20:34 Mucosa - Nose SARS-CoV-2, Influenza & RSV (PCR) - Final Imagaing Radiology Impression Brain CT 10/16/23 20:08 IMPRESSION: Mild generalized atrophy. Mild low density bilaterally in the deep white matter. This likely represents chronic small vessel ischemic changes in the deep white matter. No change. Electronically Signed: Jacques Davenport MD at 22:12 EST , Chest X-Ray 10/16/23 21:02 IMPRESSION: 1. Calcified right hilar lymph nodes. 2. No acute cardiopulmonary abnormality. No change. Electronically Signed: Jacques Davenport MD at 22:15 EST , Assessment & Plan Assessment/Plan (1) Hyponatremia: (2) Altered mental status: PLAN: Plan Patient is a 73-year-old female who presented to [facility] ED on 10/16/2023 with altered mental status. 1. Altered mental status Very likely secondary to hyponatremia as noted below. Seems less likely due to mild hyperammonemia. Alert and oriented x 2 on exam, comfortable appearing, no behavioral disturbances. ? Admit under inpatient status to PCU. Treat hyponatremia as noted below. Continue home lactulose as noted below. Monitor mental status. 2. Severe hyponatremia, recurrent Sodium 117 on admit. Chloride 80. Patient appeared fairly dry on exam. Given 1 L normal saline in the ED per ED staff. Repeat sodium pending. Serum osmolality 244, urine osmolality 131, urine sodium 30. ? Follow-up repeat sodium, will hold on further IV fluids until then. Nephrology consulted. Hypovolemic hyponatremia seems most likely given lab abnormalities, but cannot rule out SIADH. Appreciate nephrology recommendations regarding patient's divalproex as noted below. 3. History of mildly elevated ammonia level ? Follows with nephrology outpatient for seizure disorder, last office visit in 07/11. Patient noted to have mildly elevated ammonia level on multiple lab checks in the past. Ammonia seems to consistently be in the 30s to 60s. Ammonia level 43 on this admission. Okay to continue home lactulose. 4. Debility, morbid obesity with bilateral osteoarthritis of knees Patient lives alone, has now had multiple admissions in the last month. Has been discharged home each time, has home health care seeing her. Patient's daughter is also very involved in her care but does not live with her. Patient with BMI 41 on admit, has known osteoarthritis of both knees and has difficulty with ambulation at baseline. ? PT/OT/case management consulted. Patient's daughter is requesting SNF placement on discharge if possible. Chronic medical conditions: ? Seizure disorder: Valproic acid level normal on admit. Continue home divalproex for now, appreciate nephrology recommendations. ? History of bipolar disorder with dissociative identity disorder: Continue home lamotrigine at night, cariprezine. ? Hypertension: Continue home Toprol, lisinopril, hydralazine. ? Hyperlipidemia: Continue home statin. ? Type 2 diabetes mellitus: On home metformin 500 twice daily. Sliding-scale insulin while inpatient. ? History of cocaine abuse: Continue monthly buprenorphine on discharge. DVT prophylaxis: Lovenox CODE STATUS: Full code, verified. Verified with daughter on admission. Expected disposition: Home with home health care versus SNF, TBD Total clinical time spent by myself addressing the patient's medical issues, reviewing all the data, and collaborating with patient's care team: 55 minutes. Charges/Coding Visit Charges Inpatient E&M: 70733 Init Hosp L2
[2023-10-16 22:49] VITALS: BP 197/102; PULSE 78; PULSE 80; RESP 12; RESP 16; TEMP 36.8; O2SAT 93
[2023-10-16 23:00] VITALS: BP 194/91; PULSE 75; RESP 18; O2SAT 93
--- OUTSIDE RECORDS SUMMARY | 2023-10-16 23:21 | XMS RPT_ITS | CCD ---
Author Name Unknown Address [address] [place] [address] Organization [facility] Care Team Providers Care Retail Administrative Assistant Name Role Phone Shira Hylton Unavailable Unavailable [...] Leopoldo Baird MD Primary Care Provider [phone] Unavailable Primary Care Provider Unavailabl e Rodye, Efewongbe B Primary Care Provider Labor Adelina STOREY Unavailable Mica BOWMAN - PATRICIO, Dejah Unavailable [phone] Manjit Ga DO Unavailable Unavailable Susie Ledzema MD Unavailable Oleghe, Efewongbe B Primary Care [...] Care Unavailable BRETT BERNAL Attending Unavailable ZSHAYLEE LITTLEORY Referring Unavailable OLEE, EFEWONGBE Primary Care Unavailable Allergies Allergy Classification Reported Allergen(s) Allergy Type Date of Onset Reaction(s) Facility (3 sources) iloperidone Drug Allergy 1 [facility] Work Phone: (1 source) paliperidone Drug Allergy -[facility] Work Phone: (1 source) Theophylline Drug Allergy [facility] Work Phone: (1 source) traZODone Drug Allergy [facility] Work Phone: (20 sources) Naproxen Drug Allergy 1 Hives [facility] (3 sources) Gadoxetate Drug Allergy 7 Shortness of Breath, SOB [facility] (1 source) Slow-bid [Other] Propensity to adverse reactions 2 Mental Status Change [facility] Work Phone: (20 sources) paliperidone Drug Allergy 9 [facility] Work Phone: (20 sources) iloperidone Drug Allergy 9 [facility] (20 sources) lurasidone Drug Allergy 9 [facility] (20 sources) Theophylline Drug Allergy 7 [facility] (20 sources) Gadoxetate Propensity to adverse reactions 7 Shortness of breath [facility] (20 sources) Trazodone And Nefazodone Drug Intolerance 9 [facility] [place] Medications Current Medications Medication Drug Class(es) Dates [...] Drug Class(es) Dates Sig (Normalized) Sig (Original) [id number] 200 actuat albuterol 0.09 mg/actuat metered dose [...] 152.4 cm Kareem Hartmann MD Work Phone: [facility] 09-03-2023 07:11-0500 Body mass index (BMI) [Ratio] 43.51 kg/m2 Kareem Hartmann MD Work Phone: [facility] 09-03-2023 07:11-0500 Body weight 101.06 kg Kareem Hartmann MD Work Phone: [facility] [place] 09-03-2023 07:11-0500 Diastolic blood pressure 106 mm[Hg] Kareem Hartmann MD Work Phone: [facility] 09-03-2023 07:11-0500 Systolic blood pressure 169 mm[Hg] Kareem Hartmann MD Work Phone: [facility] [place] 08-10-2023 08:11-0400 Body height 152.4 cm Kareem Hartmann MD Work Phone: [facility] 08-10-2023 08:11-0400 Body mass index (BMI) [Ratio] 43.36 kg/m2 Kareem Hartmann MD Work Phone: [facility] [place] 08-10-2023 08:11-0400 Body weight 100.7 kg Kareem Hartmann MD Work Phone: [facility] [place] 08-10-2023 08:11-0400 Diastolic blood pressure 88 mm[Hg] Kareem Hartmann MD Work Phone: [facility] [place] 08-10-2023 08:11-0400 Heart rate 86 /min Kareem Hartmann MD Work Phone: [facility] [place] 08-10-2023 08:11-0400 Systolic blood pressure 150 mm[Hg] Kareem Hartmann MD Work Phone: [facility] [place] 07-09-2023 09:28-0400 Body height 152.4 cm Kareem Hartmann MD Work Phone: [facility] [place] 07-09-2023 09:28-0400 Body mass index (BMI) [Ratio] 44.18 kg/m2 Kareem Hartmann MD Work Phone: [facility] [place] 07-09-2023 09:28-0400 Body weight 102.6 kg Kareem Hartmann MD Work Phone: [facility] [place] 07-09-2023 09:28-0400 Diastolic blood pressure 84 mm[Hg] Kareem Hartmann MD Work Phone: [facility] [place] 07-09-2023 09:28-0400 Heart rate 75 /min Kareem Hartmann MD Work Phone: [facility] [place] 07-09-2023 09:28-0400 Respiratory rate 16 /min Kareem Hartmann MD Work Phone: [facility] [place] 07-09-2023 09:28-0400 Systolic blood pressure 142 mm[Hg] Kareem Hartmann MD Work Phone: [facility] [place] 06-25-2023 09:06-0400 Body height 152.4 cm Kenzie Paul MD Work Phone: [facility] 06-25-2023 09:06-0400 Body mass index (BMI) [Ratio] 43.28 kg/m2 Kenzie Paul MD Work Phone: [facility] 06-25-2023 09:06-0400 Body weight 100.52 kg Kenzie Paul MD Work Phone: [facility] 06-25-2023 09:06-0400 Diastolic blood pressure 88 mm[Hg] Kenzie Paul MD Work Phone: [facility] Encounters Encounter Date Encounter Type Care Provider Facility Start: 09-28-2023 Refill Brett GO Work Phone: [facility] Start: 09-21-2023 Documentation procedure Kareem Hartmann MD Work Phone: [facility] Start: 09-21-2023 Telephone encounter Kareem rich MD Work Phone: [facility] Procedures Date Procedure Procedure Detail Performing Clinician Start: 07-09-2023 Lipid 1996 panel - Serum or Plasma Kareem Hartmann MD Work Phone: Start: 01-15-2022 Mammography Susie Ledezma MD Work Phone: Start: 12-05-2020 Lipid 1996 panel - Serum or Plasma Dimmitt Noteboom PharmD Work Phone: Start: 08-03-2020 Endoscopy [...] Author Start: 07-09-[address]28 [address] [facility] Start: 07-15-2026 DTaP/Tdap/Td Vaccine s (2 - Td or Tdap) DTaP/Tdap/Td Vaccines (2 - Td or Tdap) [facility] Start: 07-15-2026 Tetanus vaccination Imm-DTaP/T dap/Td (2 - Td or Tdap) [facility] Start: 07-15-2026 Urine microalbumin profile DTAP,TDAP,TD (2 - Td or Tdap) [facility] Start: 12-05-2025 Lipid panel Lipid Panel [facility] Start: 07-09-2024 Diabetes mellitus screening Diabetes Screening [facility] Start: 12-02-2023 Tobacco use cessatio n education Tobacco Cessation Counseling (#1) [facility] Start: 10-09-2023 End: 07-10-2024 25-hydroxyvitamin D3 [Mass/volume] in Serum or Plasma Vitamin D Deficiency Screening (Vit D 25) Lab Routine Vitamin D deficiency Expected: 10/09/2023 (Approximate), Expires: 07/10/2024 [facility] Immunizations Immunization Date Immunization Notes Care Provider Fa cilijennifer 08-27-2022 influenza virus vacc ine, unspecified formulation Susie Ledezma MD Work Phone: [facility] 07-21-2016 influenza, injectabl e, quadrivalent, contains preservative Emmanuel Smart Work Phone: [facility] 07-15-2016 tetanus toxoid, redu aaliyah diphtheria toxoid, and acellular pertussis vaccine, adsorbed Emmanuel Smart Work Phone: [facility] 09-05-2014 influenza, seasonal, injectable Emmanuel Berry Work Phone: [facility] Work Phone: 07-31-2012 pneumococcal polysaccharide vaccine, 23 valent Emmanuel Smart Work Phone: [facility] 07-29-2012 influenza virus vacc ine, unspecified formulation Emmanuel Smart Work Phone: [facility] 09-29-2010 pneumococcal polysaccharide vaccine, 23 valent Emmanuel Smart Work Phone: [facility] Payers Date Payer Category Payer Medicaid [facility] [id number] 2018-Present [phone] [address] [place] [address] Medicaid [id number] 2018 Medicare [id number] 2015 Medicare 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 alcohol (finding) [facility] Start: 1950 Sex Assigned At Not on file [facility] Start: 07-30-2021 End: 07-09-2023 Exposure to SARS-CoV-2 (event) Not sure [facility] Start: 12-02-2022 End: 12-18-2022 Alcohol intake Lifetime non-drinker (finding) [employer] Work Phone: Start: 01-15-2021 History SDOH Alcohol Frequency 1 [employer] Work Phone: Start: 12-02-2022 Tobacco Comment half a pack da vini, smoked since 37 [employer] Work Phone: Start: 1950 Sex Assigned At Female [facility] [employer] Work Phone: Start: 04-30-2023 End: 07-09-2023 Alcohol intake Ex-drinker (finding) [facility] Start: 04-30-2023 End: 07-09-2023 Gender identity Not on file [facility] Start: 06-16-2023 Tobacco smoking stat [facility] Ex-smoker [facility] Start: 10-19-1987 History of tobacco use Current smoke r [facility] Within the last year , have you been afraid of your partner or ex-partner? No [facility] NEGATED: Highlighted row - - -[facility] Work Phone: Functional Status Date Assessment Result Facility NEGATED: Highlighted row Functional performance Functional status health issues are not documented Disease -[facility] Work Phone: Mental Status Date Assessment Result Facility NEGATED: Highlighted row Cognitive function [Interpretation] Cognitive status health issues are not documented Disease -[facility] Work Phone: Clinical Notes 01-31-2013 to 10-05-2023 Telephone Encounter - ABBI Cassidy - 10/05/2023 12:25 PM ESTTelephone Encounter - ABBI Cassidy - 10/05/2023 12:25 PM ESTTelephone Encounter - Elisa Arce RN - 10/05/2023 12:02 PM EST Note Date & Type Note Facility 10-05-2023 Note Addended by: ELISA ARCE on: 10/05/2023 12:08 PM Modules accepted: [facility] 10-05-2023 Telephone encounter Note Noted, thanks [facility] 10-05-2023 Miscellaneous Notes Noted, thanks Per message [...] EGD is to be cancelled via pool: [facility] ALS CLINICAL DRUG SAFETY DATA MANAGEMENT SPECIALIST (List Surgeon as provider in the TE) EGD done 06/16/23 [x] Clinical staff to note in specialty comment date patient has withdrawn from the program [x] Sent to [facility] and Surgical Navigation and Financial Teams for notification. Name of caller: Giovana Contact phone number: [phone] Relationship to Patient: patient Provider: Kareem Hartmann [...] their call: Yes documented in this encounter [facility] 10-05-2023 Note Addended by: ELISA ARCE on: 10/05/2023 12:08 PM Modules accepted: Orders [facility] 10-05-2023 Note Addended by: ELISA ARCE on: 10/05/2023 12:08 PM Modules accepted: Orders [facility] 10-05-2023 Miscellaneous Notes Addended by: ELISA ARCE [...] recommended proceeding with the evaluation, workup and senior sustainability consultant preoperative consultations and testing for the primary procedure as outlined below: BARIATRIC AND METABOLIC SURGERY [facility] PATIENT SUMMARY Giovana Ledezma 72 y.o. female [...] she has been compliant with, both in [place] and now in [place] She will need 6 months of physician [...] Practitioner) Manjit Ga DO (Psychiatry) Initial [facility] surgical patient Navigation & Financial Counseling Discussion [...] PRIMARY INSURANCE: Payor: [employer] MEDICARE / Plan: [employer] DUAL ADVANTAGE / Product Type: Medicare HMO [...] 1) Scheduled at new pt surgeon visit: Site Leader (RD) for a Nutrition Assessment (BNA) and [...] and after surgery. documented in this encounter [facility] [place] 10-05-2023 Telephone encounter Note See TE from 09/21/23 where pt withdrew from surg program and non surg. [facility] [place] 10-05-2023 Telephone encounter Note Per message in [...] EGD is to be cancelled via pool: [facility] ALS CLINICAL DRUG SAFETY DATA MANAGEMENT SPECIALIST (List Surgeon as provider in the TE) EGD done 06/16/23 [x] Clinical staff to note in specialty comment date patient has withdrawn from the program [x] Sent to [facility] and Surgical Navigation and Financial Teams for notification. [facility] 09-28-2023 Telephone encounter Note One month sent but pt needs to complete repeat labs- please advise, thanks! [facility] 09-28-2023 Miscellaneous Notes One month sent but pt needs to complete repeat labs- please advise, thanks! Received fax from [facility] requesting refills for Vit B-12 500 mcg. documented in this encounter [facility] 09-28-2023 Telephone encounter Note Received fax from [facility] requesting refills for Vit B-12 500 mcg. [facility] 09-21-2023 Telephone encounter Note Name of caller: Giovana Contact phone number: [phone] Relationship to Patient: patient Provider: Kareem Hartmann [...] business hours to return their call: Yes [facility] 09-21-2023 Miscellaneous Notes Name of caller: Giovana Contact phone number: [phone] Relationship to Patient: patient Provider: Kareem Hartmann [...] their call: Yes documented in this encounter [facility] 09-21-2023 History of Present illness Narrative I called Ms. Powell (using the phone number listed in [employer]) to discuss how she is tolerating the Trulicity. 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 Kareem Hartmann MD 3:14 PM 09/21/2023 documented in this encounter [facility] 09-03-2023 History of Present illness Narrative WEIGHT [...] the Trulicity, contact PCP and [facility], and seek immediate medical attention for urgent [...] follow up with her sleep specialist in [place] --smoking cessation: recently quit with nicotine patch [...] --Leukocytosis and elevated platelets: follows with hematology/oncology ([facility], Dr. Russell) Plan of care discussed with [...] patient's medications and diagnoses listed in Epic. [facility] NON-SURGICAL WEIGHT LOSS MANAGEMENT PROGRAM ROOMING NOTE: [...] Path) Date of Initial Consultation:@FLOWLAST(8961)@ Initial Weight: @FLOWLAST([id number])@ Initial BMI: @FLOWLAST([id number])@ [place] Body Weight: @FLOWLAST([id number])@ Excess Body Weight: @FLOWLAST([id number])@ Body Fat Percentage: No flowsheet data found. [...] not on home O2 Completed by: Juanita aDigle MA documented in this encounter [facility] 08-12-2023 Telephone encounter Note Patient states she is switching to the NSRUG program with Dr. Hartmann. [facility] 08-10-2023 Telephone encounter Note Patient needs scheduled for psychology please. On d/e 5 out of 6, thanks. [facility] 08-10-2023 Miscellaneous Notes Patient needs scheduled for [...] recommended proceeding with the evaluation, workup and senior sustainability consultant preoperative consultations and testing for the primary procedure as outlined below: BARIATRIC AND METABOLIC SURGERY [facility] PATIENT SUMMARY Giovana Ledezma 72 [...] she has been compliant with, both in [place] and now in [place] She will need 6 months of physician [...] Practitioner) Manjit Ga DO (Psychiatry) Initial [facility] surgical patient Navigation & Financial Counseling Discussion [...] [] YES [] NO PRIMARY INSURANCE: Payor: [facility] MEDICARE / [facility] / Product Type: Medicare [...] 1) Scheduled at new pt surgeon visit: Site Leader (RD) for a Nutrition Assessment (BNA) and [...] and after surgery. documented in this encounter [facility] 08-10-2023 Note BARIATRIC CARE [facility] SURGICAL WEIGHT LOSS MANAGEMENT PROGRAM PROGRESS NOTE FOLLOW UP Patient: Giovana Powell Date of : 1950 Service Date: 08/10/2023 [place] Visit number: 4 of 6 Pre Program Weight Metrics Date of Initial Consultation:@FLOWLAST(8961)@ Initial Weight: @FLOWLAST([id number])@ Initial BMI: @FLOWLAST([id number])@ [place] Body Weight: @FLOWLAST([id number])@ Excess Body Weight: @FLOWLAST([id number])@ Follow Up Weight Metrics Last Three Weights [...] home O2 Completed by: Juanita Daigle MA [facility] 08-10-2023 History of Present illness Narrative [facility] SURGICAL WEIGHT LOSS MANAGEMENT PROGRAM PROGRESS NOTE FOLLOW UP Patient: Giovana Powell Date of : 1950 Service Date: 08/10/2023 DE Visit number: 4 of 6 Pre Program Weight Metrics Date of Initial Consultation:@FLOWLAST(8961)@ Initial Weight: @FLOWLAST([id number])@ Initial BMI: @FLOWLAST([id number])@ [place] Body Weight: @FLOWLAST([id number])@ Excess Body Weight: @FLOWLAST([id number])@ Follow Up Weight Metrics Last Three Weights [...] home O2 Completed by: Juanita Daigle MA [facility] - SURGICAL WEIGHT LOSS MANAGEMENT [...] follow up with her sleep specialist in [place] --smoking cessation: recently quit with nicotine patch [...] --Leukocytosis and elevated platelets: follows with hematology/oncology ([facility], Dr. Russell) Advised patient to continue to [...] listed in Epic. documented in this encounter [facility] 08-05-2023 History of Present illness Narrative [facility] BARIATRIC NUTRITION ASSESSMENT / [...] Lashonda Mason RD documented in this encounter [facility] [place] 07-14-2023 Telephone encounter Note So far, we haven't received anything from the pharmacy about a prior authorization for Trulicity. When I spoke to the patient, I also told her to call us if there was any issues. [facility] 07-14-2023 Miscellaneous Notes So far, we haven't [...] a call back. documented in this encounter [facility] 07-14-2023 Telephone encounter Note Thank you, yes Trulicity was recommended by the insurance company since Mounjaro is not covered. How will we know if Trulicity is covered by insurance? Thanks again [facility] [place] 07-14-2023 Telephone encounter Note FYI: Spoke with [...] was any issues to call us back. [facility] [place] 07-10-2023 Telephone encounter Note Signed, thanks [facility] [place] 07-10-2023 Miscellaneous Notes Signed, thanks Noted, thank [...] sent regarding labs. documented in this encounter [facility] [place] 07-10-2023 Telephone encounter Note Noted, thank you! [facility] Work Phone: 07-10-2023 Telephone encounter Note Called [...] months. Orders pending. Please sign. Thank you! [facility] [place] 07-10-2023 History of Present illness Narrative Message regarding prior authorization reviewed. Recommendation is to substitute Rickey for Mounfannyro. Changes made and prescription sent to pharmacy. documented in this encounter [facility] [place] 07-10-2023 Telephone encounter Note I called Ms. [...] questions/concerns. Kareem Hartmann MD 9:45 AM 07/10/2023 [facility] 07-10-2023 Miscellaneous Notes I called Ms. Powell [...] a call back. documented in this encounter [facility] 07-10-2023 Telephone encounter Note Started PA through C[facility] 07-09-2023 Telephone encounter Note Patient left VM stating she has a question for Dr. Hartmann and would like a call back. [facility] 07-09-2023 Telephone encounter Note Pre-op_JZ 07/09/2023 Vitamin D: 20 (L) Magnesium: 2.5 (H) Vitamin B12: 333 (L end NL) [employer] message sent regarding labs. [facility] 07-09-2023 Note Addended by: MARCELO LAM on: 07/09/2023 10:11 AM Modules accepted: Orders [facility] 07-09-2023 Note [facility] SURGICAL WEIGHT LOSS MANAGEMENT PROGRAM PROGRESS NOTE FOLLOW UP Patient: Giovana Powell Date of : 1950 Service Date: 07/09/2023 DE Visit number: 3 of 6 Pre Program Weight Metrics Date of Initial Consultation:@FLOWLAST(8961)@ Initial Weight: @FLOWLAST([id number])@ Initial BMI: @FLOWLAST([id number])@ [place] Body Weight: @FLOWLAST([id number])@ Excess Body Weight: @FLOWLAST([id number])@ Follow Up Weight Metrics Last Three Weights [...] home O2 Completed by: Evelyn Chambers MA [facility] 07-09-2023 Note Addended by: MARCELO LAM on: 07/09/2023 10:11 AM Modules accepted: Orders [facility] 07-09-2023 Note Addended by: MARCELO LAM on: 07/09/2023 10:11 AM Modules accepted: Orders [facility] 07-09-2023 Note Addended by: MARCELO LAM on: 07/09/2023 10:11 AM Modules accepted: Orders [facility] 07-09-2023 Note Addended by: MARCELO LAM on: 07/09/2023 10:11 AM Modules accepted: Orders [facility] 07-09-2023 Miscellaneous Notes Addended by: MARCELO LAM [...] recommended proceeding with the evaluation, workup and senior sustainability consultant preoperative consultations and testing for the primary procedure as outlined below: BARIATRIC AND METABOLIC SURGERY [facility] PATIENT SUMMARY Giovana Ledezma 72 y.o. female [...] she has been compliant with, both in [place] and now in [place] She will need 6 months of physician [...] Practitioner) Manjit Ga DO (Psychiatry) Initial [facility] surgical patient Navigation & Financial Counseling Discussion [...] PRIMARY INSURANCE: Payor: [employer]ICARE / Plan: [employer] DUAL ADVANTAGE / Product Type: Medicare HMO [...] 1) Scheduled at new pt surgeon visit: Site Leader (RD) for a Nutrition Assessment (BNA) and [...] and after surgery. documented in this encounter [facility] 07-09-2023 History of Present illness Narrative [facility] SURGICAL WEIGHT LOSS MANAGEMENT PROGRAM PROGRESS NOTE FOLLOW UP Patient: Giovana Powell Date of : 1950 Service Date: 07/09/2023 DE Visit number: 3 of 6 Pre Program Weight Metrics Date of Initial Consultation:@FLOWLAST(8961)@ Initial Weight: @FLOWLAST([id number])@ Initial BMI: @FLOWLAST([id number])@ [place] Body Weight: @FLOWLAST([id number])@ Excess Body Weight: @FLOWLAST([id number])@ Follow Up Weight Metrics Last Three Weights [...] surgeries: cholecystectomy, hysterectomy -Anti-obesity medications are buttermaker medications. Weight gain will likely result when [...] follow up with her sleep specialist in [place], she also requires pulmonology clearance prior to [...] listed in Epic. documented in this encounter [facility] 07-09-2023 History of Present illness Narrative [facility] SURGICAL WEIGHT LOSS MANAGEMENT PROGRAM PROGRESS NOTE FOLLOW UP Patient: Giovana Powell Date of : 1950 Service Date: 07/09/2023 DE Visit number: 3 of 6 Pre Program Weight Metrics Date of Initial Consultation:@FLOWLAST(8961)@ Initial Weight: @FLOWLAST([id number])@ Initial BMI: @FLOWLAST([id number])@ [place] Body Weight: @FLOWLAST([id number])@ Excess Body Weight: @FLOWLAST([id number])@ Follow Up Weight Metrics Last Three Weights [...] -GI surgeries: cholecystectomy, hysterectomy -Anti-obesity medications are m[facility]p medications. Weight gain will likely result when [...] follow up with her sleep specialist in [place], she also requires pulmonology clearance prior to [...] listed in Epic. documented in this encounter [facility] 06-25-2023 Note 06/25/2023 REFERRING PHYSICIAN: LEOPOLDO BAIRD [...] Dr. Newell/ Vickie general CHOLECYSTECTOMY 2019 laparoscopic -[place] HYSTERECTOMY [facility] Social History: Social History Socioeconomic History [...] (06/25/23905) Resp 18 (more content not included)... [facility] 06-25-2023 History of Present illness Narrative Images [...] [facility]ickie general CHOLECYSTECTOMY 2019 laparoscopic -[place] HYSTERECTOMY [facility] Social History: Social History Socioeconomic History [...] for Spirometry results. documented in this encounter [facility] 06-25-2023 Instructions Isha Garcia Rai, MA - 06/25/2023 10:00 AM EDT YOUR APPOINTMENT TODAY WAS WITH THE [facility], COPD CLINIC, PULMONARY AND SLEEP MEDICINE OFFICE. PLEASE CALL OUR OFFICE AT [phone] IF YOU HAVE NOT RECEIVED YOUR TEST [...] to make improvements. COVID-19 VACCINATION INFORMATION: PH. [phone] [email or web address] [facility] Scheduling [phone] [facility] Sleep Scheduling [phone] documented in this encounter [facility] 06-17-2023 Note BAR[facility]ATRIC CARE [facility] SURGICAL WEIGHT LOSS MANAGEMENT PROGRAM PROGRESS NOTE FOLLOW UP Patient: Giovana Powell Date of : 1950 Service Date: 06/17/2023 DE Visit number: 2 of 6 Pre Program Weight Metrics Date of Initial Consultation:@FLOWLAST(8961)@ Initial Weight: @FLOWLAST([id number])@ Initial BMI: @FLOWLAST(347865346)@ [place] Body Weight: @FLOWLAST([id number])@ Excess Body Weight: @FLOWLAST([id number])@ Follow Up Weight Metrics Last Three Weights [...] home O2 Completed by: Nata Bro LPN [facility] 06-17-2023 History of Present illness Narrative [facility] SURGICAL WEIGHT LOSS MANAGEMENT PROGRAM PROGRESS NOTE FOLLOW UP Patient: Giovana Powell Date of : 1950 Service Date: 06/17/2023 DE Visit number: 2 of 6 Pre Program Weight Metrics Date of Initial Consultation:@FLOWLAST(8961)@ Initial Weight: @FLOWLAST([id number])@ Initial BMI: @FLOWLAST(156985000)@ [place] Body Weight: @FLOWLAST([id number])@ Excess Body Weight: @FLOWLAST([id number])@ Follow Up Weight Metrics Last Three Weights [...] updated and completed. documented in this encounter [facility] 06-16-2023 Note Patient: Giovana Powell Procedure Summary Date: 06/16/23 Room / Location: [facility] ARCH ENDO SEC 3 / ARCH [...] once all PACU criteria has been met. [facility] 06-16-2023 Note Patient: Giovana Powell Procedure Summary Date: 06/16/23 Room / Location: [facility] AR[facility] ENDO SEC 3 / ARCH Gastroenterology [...] of surgery or procedure by MD, APC door liner proxy staff ([id number]) The patient did smoke [...] opportunity for questions and acknowledgement of understanding. [facility] 06-16-2023 Note Endoscopy Center- [facility] Patient Name: Giovana Powell Procedure Date: 06/16/2023 8:44 AM Gender: Female Date of : 1950 Age: 72 Admit Type: Outpatient Note Status: Finalized Endoscopist: Susie Ledezma MD, [id number] Procedure: Upper GI endoscopy Indications: Suspected gastro-esophageal [...] immediate complications. Procedure Code(s): --- Professional --- 22451, Esophagogastroduodenoscopy, flexible, transoral; with biopsy, single or multiple --- Technical --- 40804, Esophagogastroduodenoscopy, flexible, transoral; with biopsy, single or multiple Diagnosis Code(s): --- Professional --- K29.70, Gastritis, unspecified, without bleeding Z01.818, Encounter for other preprocedural examination E66.01, Morbid (severe) obesity due to excess calories --- Technical --- K29.70, Gastritis, unspecified, without bleeding Z01.818, Encounter for other preprocedural examination E66.01, Morbid (severe) obesity due to excess calories CPT copyright 202 [employer] [employer]. All rights reserved. The codes documented in this report are preliminary and upon adjunct teacher review may be revised to meet current compliance requirements. Attending Participation: I personally performed the entire procedure. Susie Ledezma MD 06/16/2023 9:09:17 AM This report has been signed electronically. Number of Addenda: 0 Note Initiated On: 06/16/2023 8:44 AM [facility] 06-16-2023 Note Patient: Giovana Powell Procedure Information Date/Time: 06/16/23 0900 Procedure: EGD WITH BIOPSY - 30 MINUTES Location: [address] ENDO SEC 3 / ARCH Gastroenterology [...] Newell/ Vickie lowry 2019: CHOLECYSTECTOMY Comment: laparoscopic -[place] No date: HYSTERECTOMY Comment: [facility] Social History: TOBACCO: reports that she [...] found for this or any previous visit. [facility] 06-16-2023 Note Formatting of this n ote might be different from the original. Endoscopy Center- [facility] Patient Name: Giovana Powell Procedure Date: 06/16/2023 8:44 AM Gender: Female Date of : 1950 Age: 72 Admit Type: Outpatient Note Status: Finalized Endoscopist: Susie Ledezma MD, [id number] Procedure: Upper GI endoscopy Indications: Suspected gastro-esophageal [...] immediate complications. Procedure Code(s): --- Professional --- 89011, Esophagogastroduodenoscopy, flexible, transoral; with biopsy, single or multiple --- Technical --- 14434, Esophagogastroduodenoscopy, flexible, transoral; with biopsy, single or multiple Diagnosis Code(s): --- Professional --- K29.70, Gastritis, unspecified, without bleeding Z01.818, Encounter for other preprocedural examination E66.01, Morbid (severe) obesity due to excess calories --- Technical --- K29.70, Gastritis, unspecified, without bleeding Z01.818, Encounter for other preprocedural examination E66.01, Morbid (severe) obesity due to excess calories CPT copyright 2021 [employer] [place] [employer]. All rights reserved. The codes documented in this report are preliminary and upon adjunct teacher review may be revised to meet current compliance requirements. Attending Participation: I personally performed the entire procedure. Susie Ledezma MD 06/16/2023 9:09:17 AM This report has been signed electronically. Number of Addenda: 0 Note Initiated On: 06/16/2023 8:44 AM [facility] [address] [employer] 06-16-2023 Note Formatting of this n ote might be different from the original. [facility] Powell Procedure Date: 06/16/2023 8:44 AM Gender: Female Date of : 1950 Age: 72 Admit Type: Outpatient Note Status: Finalized Endoscopist: Susie Ledezma MD, [id number] Procedure: Upper GI endoscopy Indications: Suspected gastro-esophageal [...] immediate complications. Procedure Code(s): --- Professional --- 72532, Esophagogastroduodenoscopy, flexible, transoral; with biopsy, single or multiple --- Technical --- 81322, Esophagogastroduodenoscopy, flexible, transoral; with biopsy, single or multiple Diagnosis Code(s): --- Professional --- K29.70, Gastritis, unspecified, without bleeding Z01.818, Encounter for other preprocedural examination E66.01, Morbid (severe) obesity due to excess calories --- Technical --- K29.70, Gastritis, unspecified, without bleeding Z01.818, Encounter for other preprocedural examination E66.01, Morbid (severe) obesity due to excess calories CPT copyright 2021 [employer] [place] [employer]. All rights reserved. The codes documented in this report are preliminary and upon adjunct teacher review may be revised to meet current compliance requirements. Attending Participation: I personally performed the entire procedure. Susie Ledezma MD 06/16/2023 9:09:17 AM This report has been signed electronically. Number of Addenda: 0 Note Initiated On: 06/16/2023 8:44 AM [facility] 06-16-2023 Miscellaneous Notes [facility] Name: Giovana Powell Procedure Date: 06/16/2023 8:44 AM Gender: Female Date of : 1950 Age: 72 Admit Type: Outpatient Note Status: Finalized Endoscopist: Susie Ledezma MD, [id number] Procedure: Upper GI endoscopy Indications: Suspected gastro-esophageal [...] immediate complications. Procedure Code(s): --- Professional --- 61373, Esophagogastroduodenoscopy, flexible, transoral; with biopsy, single or multiple --- Technical --- 95120, Esophagogastroduodenoscopy, flexible, transoral; with biopsy, single or multiple Diagnosis Code(s): --- Professional --- K29.70, Gastritis, unspecified, without bleeding Z01.818, Encounter for other preprocedural examination E66.01, Morbid (severe) obesity due to excess calories --- Technical --- K29.70, Gastritis, unspecified, without bleeding Z01.818, Encounter for other preprocedural examination E66.01, Morbid (severe) obesity due to excess calories CPT copyright 2021 [employer] [place] [employer]. All rights reserved. The codes documented in this report are preliminary and upon adjunct teacher review may be revised to meet current compliance requirements. Attending Participation: I personally performed the entire procedure. Susie Ledezma MD 06/16/2023 9:09:17 AM This report has been signed electronically. Number of Addenda: 0 Note Initiated On: 06/16/2023 8:44 AM documented in this encounter [facility] 06-15-2023 Note [facility] - Surgery [facility] Surgery PATIENT NAME: [...] Dr. Newell/ Vickie general CHOLECYSTECTOMY 2019 laparoscopic -[place] HYSTERECTOMY [facility] Current Medications: Current Facility-Administered Medications Medication [...] Brother Obesity Brot (more content not included)... [facility] 06-15-2023 History and physical note Images from the original note were not included. [facility] - Surgery [facility] Physicians Surgery PATIENT NAME: Giovana Powell [...] Vickie general CHOLECYSTECTOMY 2019 laparoscopic -[place] HYSTERECTOMY [facility] Current Medications: Current Facility-Administered Medications Medication [...] and willingness to proceed with plan. ' [facility] 06-15-2023 History and physical note Images from the original note were not included. [facility] - Surgery [facility] Physicians Surgery PATIENT NAME: Giovana Powell [...] Dr. Newell/ Vickie general CHOLECYSTECTOMY 2019 laparoscopic -[place] HYSTERECTOMY [facility] Current Medications: Current Facility-Administered Medications Medication [...] with plan. ' documented in this encounter [facility] 06-08-2023 History of Present illness Narrative [facility] BARIATRIC NUTRITION ASSESSMENT / [...] Lashonda Mason RD documented in this encounter [facility] 06-08-2023 History of Present illness Narrative [facility] BARIATRIC NUTRITION ASSESSMENT / [...] Lashonda Mason RD documented in this encounter [facility] 05-15-2023 Telephone encounter Note Orders mailed- with pain management clearance and neurology clearance form [facility] 05-15-2023 Miscellaneous Notes Orders mailed- with pain [...] recommended proceeding with the evaluation, workup and senior sustainability consultant preoperative consultations and testing for the primary procedure as outlined below: BARIATRIC AND METABOLIC SURGERY [facility] PATIENT SUMMARY Giovana Ledezma 72 y.o. female [...] she has been compliant with, both in [place] and now in [place] She will need 6 months of physician [...] Adelina Lin DO (Addiction Medicine) Dejah Drew, INSPECTOR ALUMINUM BOAT - DECAY CONTROL OPERATOR (Nurse Practitioner) Manjit Ga DO (Psychiatry) Initial [facility] surgical patient Navigation & Financial Counseling Discussion [...] PRIMARY INSURANCE: Payor: [employer]ICARE / Plan: [employer] DUAL ADVANTAGE / Product Type: Medicare HMO [...] 1) Scheduled at new pt surgeon visit: Site Leader (RD) for a Nutrition Assessment (BNA) and [...] and after surgery. documented in this encounter [facility] 05-14-2023 History of Present illness Narrative [facility] SURGICAL WEIGHT LOSS MANAGEMENT PROGRAM [...] Weight: 223 lb 6.4 oz (101 kg) [place] Body Weight: 120 lb (54.4 kg) Initial [...] home O2 Completed by: Juanita Daigle MA [facility] SURGICAL WEIGHT LOSS MANAGEMENT PROGRAM PHYSICIAN SUPERVISED [...] Dr. Newell/ Vickie general CHOLECYSTECTOMY 2019 laparoscopic -[place] HYSTERECTOMY [facility] Family History Problem Relation Name Age [...] No medications on file Discontinued Medications NYAM[facility]C 999503 UNIT/GM POWDER This patient's excess weight is causing the following co-morbid conditions at this time:GERD, Fatty Liver Disease, High Cholesterol, HTN, JENNIFER with or without CPAP, and Other pre-diabetes Initial Diet & Exercise/SPR Visit Weight Metrics: Date of Initial Diet & Exercise Visit: Consult Date: 05/14/23 Initial Weight: Initial Weight: 223 lb 6.4 oz (101 kg) Initial BMI: Initial BMI: 43.63 [place] Body Weight: [place] Body Weight: 120 lb (54.4 kg) Excess [...] DIET HISTORY FORM with patient (located in Voice Over Artist) I reviewed all of the patient's medications [...] follow up with her sleep specialist in [place], she also requires pulmonology clearance prior to [...] 05/14/2023 1:31 PM documented in this encounter [facility] 05-13-2023 Note Addended by: BRETT BERNAL on: 05/13/2023 09:07 AM Modules accepted: Orders [facility] 05-13-2023 Note Addended by: BRETT BERNAL on: 05/13/2023 09:07 AM Modules accepted: Orders [facility] 05-13-2023 Note Addended by: BRETT BERNAL on: 05/13/2023 09:07 AM Modules accepted: Orders [facility] 05-13-2023 Note Addended by: BRETT BERNAL on: 05/13/2023 09:07 AM Modules accepted: Orders [facility] 05-13-2023 Note Addended by: BRETT BERNAL on: 05/13/2023 09:07 AM Modules accepted: Orders [facility] 05-13-2023 Telephone encounter Note Signed and printed orders Neuro clearance will be needed once we know name of provider- she has appt in May Psych clearance will defer to our psychologists to obtain records from Dr. Ga [facility] 05-11-2023 Note Plan: I have recommended proceeding with the evaluation, workup and senior sustainability consultant preoperative consultations and testing for the primary procedure as outlined below: BARIATRIC AND METABOLIC SURGERY [facility] PATIENT SUMMARY Giovana Ledezma 72 [...] [x] S/p carlos alberto [] Not ordered JENNIEFR eval [] [] On CPAP / Obtain [...] she has been compliant with, both in [place] and now in [place] She will need 6 months of physician [...] Drew APRN - PATRICIO (Nurse Practitioner) Manjit aG DO (Psychiatry) [facility] 05-11-2023 Note Addended by: Jerrell MORRIS on: 05/11/2023 08:06 AM Modules accepted: Orders [facility] 05-11-2023 Note Addended by: Jerrell MORRIS on: 05/11/2023 08:06 AM Modules accepted: Orders [facility] 05-11-2023 Note Addended by: Jerrell MORRIS on: 05/11/2023 08:06 AM Modules accepted: Orders [facility] 05-11-2023 Note Addended by: Jerrell MORRIS on: 05/11/2023 08:06 AM Modules accepted: Orders [facility] 05-11-2023 Note Addended by: Jerrell MORRIS on: 05/11/2023 08:06 AM Modules accepted: Orders [facility] 05-11-2023 Note Addended by: Jerrell MORRIS on: 05/11/2023 08:06 AM Modules accepted: Orders [facility] 05-11-2023 Miscellaneous Notes Addended by: MONICA MORRIS on: 05/11/2023 08:06 AM Modules accepted: Orders Orders pended, Pre op check list scanned to media. EGD order sent to ALS. Plan: I have recommended proceeding with the evaluation, workup and senior sustainability consultant preoperative consultations and testing for the primary procedure as outlined below: BARIATRIC AND METABOLIC SURGERY [facility] PATIENT SUMMARY Giovana Ledezma 72 y.o. female [...] she has been compliant with, both in [place] and now in [place] She will need 6 months of physician [...] Practitioner) Manjit Ga DO (Psychiatry) Initial [facility] surgical patient Navigation & Financial Counseling Discussion [...] PRIMARY INSURANCE: Payor: [employer]ARE / Plan: [employer] DUAL ADVANTAGE / Product Type: Medicare HMO [...] 1) Scheduled at new pt surgeon visit: Site Leader (RD) for a Nutrition Assessment (BNA) and [...] and after surgery. documented in this encounter [facility] 05-11-2023 Telephone encounter Note Orders pended, Pre op check list scanned to media. EGD order sent to ALS. [facility] 05-11-2023 Telephone encounter Note Plan: I have recommended proceeding with the evaluation, workup and senior sustainability consultant preoperative consultations and testing for the primary procedure as outlined below: BARIATRIC AND METABOLIC SURGERY [facility] PATIENT SUMMARY Giovana Ledezma 72 [...] she has been compliant with, both in [place] and now in [place] She will need 6 months of physician [...] PATRICIO (Nurse Practitioner) Manjit Ga DO (Psychiatry) [facility] 04-30-2023 Note Initial New [facility] surg [...] [] YES [] NO PRIMARY INSURANCE: Payor: [employer] / [employer] MEDICARE / Plan: [employer] DUAL ADVANTAGE / Product Type: Medicare HMO [...] 1) Scheduled at new pt surgeon visit: Site Leader (RD) for a Nutrition Assessment (BNA) and [...] and lab/testing results before and after surgery. [facility] 04-30-2023 Telephone encounter Note Initial New [facility] surgical patient Navigation & Financial Counseling Discussion [...] PRIMARY INSURANCE: Payor: [employer] MEDICARE / Plan: [facility] DUAL ADVANTAGE / Product Type: Medicare [...] 1) Scheduled at new pt surgeon visit: Site Leader (RD) for a Nutrition Assessment (BNA) and [...] and lab/testing results before and after surgery. [facility] 04-30-2023 History of Present illness Narrative Images from the original note were not included. [facility] SURGICAL PROGRAM INITIAL EVALUATION [...] Vickie general CHOLECYSTECTOMY 2019 laparoscopic -[place] HYSTERECTOMY [facility] Social History: This patient is unaccompanied [...] I advised them to discuss with their physician/care process manager regarding contraception to prevent during this period of time after surgery. In addition, all patients were counseled on compliance with prescribed vitamin supplementation, office visit follow-up and compliance with program standards. Plan: I have recommended proceeding with the evaluation, workup and senior sustainability consultant preoperative consultations and testing for the primary procedure as outlined below: BARIATRIC AND METABOLIC SURGERY [facility] PATIENT SUMMARY Giovana Ledezma 72 y.o. female [...] she has been compliant with, both in [place] and now in [place] She will need 6 months of physician [...] DO (Addiction Medicine) Dejah Drew APRN - DECAY CONTROL OPERATOR (Nurse Practitioner) Manjit Ga DO (Psychiatry) [facility] SURGICAL WEIGHT LOSS MANAGEMENT PROGRAM Rooming Note [...] see TE created documented in this encounter [facility] 12-18-2022 History of Present illness Narrative Chief [...] PHONE with this provider practicing within the [facility]. The identity of Jacklyn Abraham was [...] and eating well, mood stable, busy with mormonism and groups. No hallucinations, still lost track [...] AM Final 11/17/2022 12:07 PM NA Facility: [facility] Specimen Source: NA Admitting Provider: Ordered [...] 3/uL NUCLEATED RBC 0 0-5 Performed By: [facility] [place], [address] Basic Metabolic Profile (BMP) Date Collected Date Received Status Reported/Status Changed Priority 11/17/2022 9:22 AM 11/17/2022 9:22 AM Final 11/17/2022 12:32 PM NA Facility: [facility] Specimen Source: NA Admitting Provider: Ordered [...] 21.0-32.0 mmol/L GAP 5 5-15 Performed By: [facility] [address] [place], [address] Wt Readings from Last 3 Encounters: No [...] Opioid use disorder, moderate, on maintenance therapy ([facility]) Continue medication as above, has supply RECOMMENDATIONS/TREATMENT PLAN : 1). [x] Medication: Discussed risks, side effects, benefits and alternatives to prescribed medication: 2). Referrals/Psychotherapy follow up/Co-management with other providers [x] Primary care: [] [facility] [] Alcohol/Drug treatment: [x] Psychoeducation/Counseling [x] Other: -neurologist 3). [x] Emergency Contact Plan: Patient understands to call [employer] at [phone], call 911, or go to the nearest ER as appropriate in case of thoughts of harm to self or others, or acute onset of intolerable side effects. 4.) [x] Physician/INSPECTOR ALUMINUM BOAT Order: See PharmD , sales contractor to document data and make observations of the patient, including observations of physical and mental health symptoms, medication response, side effects and adherence, as well as education. RN will assess patient's health status, provide education with pill boxes and/or administer long-acting injections per orders. documented in this encounter [employer] Work Phone: 12-02-2022 History of Present illness Narrative Jacklyn Powell engaged in a telehealth session via PHONE with this provider practicing within the [facility]. The identity of Natali was verified [...] -Prazosin 1mg tablet: 3T PO HS -Called [facility] to verify it patient receiving medications, patient last got her medications in an adherence pack on 11/07/2022 (likely billed as keys so it won't show up in the dispense report) *Sublocade 100mg/0.5mL: OARRS LF 11/27/22 (prescribed by Adelina Lin DO in [place]) SUBJECTIVE: Spoke with this patient today for a refill appointment, patient has a PMH of bipolar disorder, DID, and severe linnea. She is switching care to a new psychiatrist closer to her home in [place], but her appointment is not until late [...] time. Gets medications in adherence packaging via [facility] in [place]; denies recent missed doses. Medications: Current Outpatient [...] cups of coffee per day PCP: In [place] Pharmacy: [facility] in [place] Vaccinations: Received annual flu on 08/27/22; no [...] Tova Bates PharmD documented in this encounter [facility] [employer] Work Phone: 09-02-2021 Miscellaneous Notes CD / reports READY FOR RN PRIMARY CARE AT [facility] Patient wants a copy of the xray from 08/29/2021 and report. Patient will pick up and delivery driver on Thursday. Thank you, Blanche documented in this encounter [facility] 08-29-2021 Note HNO ID: [id number] Author: Nory Hutchinson APRN.DECAY CONTROL OPERATOR Service: ? Author Type: Nurse Practitioner Type: Procedures Filed: 08/29/2021 6:43 PM Note Text: ED PROCEDURE NOTE: Splinting The risks, benefits, alternatives, and personnel discussed with patient or benefits representative who consents to the procedure. The [...] managed with no additional personell Nory Hutchinson APRN.DECAY CONTROL OPERATOR [facility] 08-29-2021 Note HNO ID: [id number] Author: RT Desean(R) Service: Nuclear Medicine Author [...] RT Desean(R) August 29, 2021 5:27 PM [facility] 08-29-2021 Note HNO ID: [id number] Author: Nory Hutchinson APRN.DECAY CONTROL OPERATOR Service: ? Author Type: Nurse Practitioner Type: Progress Notes Filed: 08/29/2021 6:43 PM Note Text: This note was created using [employer]. Subjective Giovana Powell is a 71 year [...] history is provided by the patient. No supervisor modern languages was used. Fall The accident occurred 3 [...] Times 3 - COLONOSCOP W/ OR W/O [facility] SPE[facility] 06/27/11 - COLONOSCOP W/ OR W/O [facility] SPE[facility] 11/24/14 poor prep -5 year [...] tablet Take 1 (more content not included)... 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 documented in this encounter [facility] [employer] Work Phone: Evaluation note* Diagnosis Bipolar disorder with psychotic features ([facility])- Primary Dissociative identity disorder ([facility]) Dissociative identity disorder Opioid use disorder, moderate, on maintenance therapy ([facility]-CMS) documented in this encounter [facility] [employer] Work Phone: Evaluation note* Diagnosis Tobacco use disorder- Primary Primary hypertension Unspecified essential hypertension Prediabetes Other abnormal glucose Morbid obesity with BMI of 40.0-44.9, adult ([facility]) JENNIFER (obstructive sleep apnea) Obstructive sleep apnea (adult) (pediatric) High cholesterol Pure hypercholesterolemia History of substance abuse (CMS/HCC) ([facility]) Other, mixed, or unspecified nondependent drug abuse, [...] function of stomach documented in this [facility]* Diagnosis Morbid obesity due to excess calories (HCC)- Primary Hypertension, unspecified type Functional dyspepsia Dyspepsia and other specified disorders of function of stomach documented in this [facility]* Diagnosis Prediabetes- Primary Other abnormal glucose Gastroesophageal reflux disease, unspecified whether esophagitis present Functional dyspepsia Dyspepsia and other specified disorders of function of stomach documented in this encounter [facility]* Diagnosis GERD (gastroesophageal reflux disease)- Primary Esophageal reflux Functional dyspepsia Dyspepsia and other specified disorders of function of stomach Morbid obesity with BMI of 40.0-44.9, adult ([facility]) Chronic superficial gastritis without bleeding JENNIFER (obstructive sleep apnea) Obstructive sleep apnea (adult) (pediatric) documented in this [facility]* Diagnosis BMI 40.0-44.9, adult (HCC)- Primary Gastroesophageal reflux disease, unspecified whether esophagitis present Class 3 severe obesity with serious comorbidity and body mass index (BMI) of 40.0 to 44.9 in adult, unspecified obesity type (HCC) documented in this encounter [facility]* Diagnosis Chronic obstructive pulmonary disease, unspecified COPD type (HCC)- Primary Encounter for pre-operative respiratory clearance JENNIFER (obstructive sleep apnea) Obstructive sleep apnea (adult) (pediatric) Smoker Tobacco use disorder Morbid obesity (HCC) Morbid obesity documented in this encounter [facility]* Diagnosis Morbid obesity due to excess calories (HCC)- Primary Hypertension, unspecified type documented in this encounter [facility]* Diagnosis Chronic obstructive pulmonary [...] Hypertension, unspecified type documented in this encounter [place] note* Diagnosis Vitamin D deficiency- Primary Low vitamin B12 level High blood magnesium level Disorders of magnesium metabolism documented in this encounter [place] note* Diagnosis Morbid obesity due to excess calories (HCC)- Primary Hypertension, unspecified type documented in this encounter [place] note* Diagnosis Chronic obstructive pulmonary disease, unspecified COPD type (HCC)- Primary Primary hypertension Unspecified essential hypertension Gastroesophageal reflux disease, unspecified whether esophagitis present Tobacco use disorder JENNIFER (obstructive sleep apnea) Obstructive sleep apnea (adult) (pediatric) High cholesterol Pure hypercholesterolemia Morbid obesity with BMI of 40.0-44.9, adult (HCC) documented in this encounter [place] note* Diagnosis Prediabetes- Primary Other abnormal glucose Gastroesophageal reflux disease, unspecified whether esophagitis present documented in this encounter [place] note* Diagnosis Morbid obesity due to excess calories (HCC)- Primary Hypertension, unspecified type documented in this encounter [place] note* Diagnosis Chronic obstructive pulmonary disease, unspecified COPD type (HCC)- Primary Primary hypertension Unspecified essential hypertension Gastroesophageal reflux disease, unspecified whether esophagitis present Tobacco use disorder JENNIFER (obstructive sleep apnea) Obstructive sleep apnea (adult) (pediatric) High cholesterol Pure hypercholesterolemia Morbid obesity with BMI of 40.0-44.9, adult (HCC) documented in this encounter [facility] Discharge instructions* Attachments The following attachments cannot be sent through Care Everywhere. * Upper GI Endoscopy Discharge Instructions (Upper [place] Consultation (Routine) - Pending Review Specialty Diagnoses / Procedures Referred By Kori t Referred To Contact Pulmonary Disease / Pulmonology Diagnoses Chronic obstructive pulmonary disease, unspecified COPD type (HCC) Tobacco use disorder JENNIFER (obstructive sleep apnea) Morbid obesity with BMI of 40.0-44.9, adult (HCC) Procedures PA OFFICE/OUTPATIENT [facility] 60-74 MINUTES Brett Bernal PA [address] [place] [address] [facility] [address] [place] [address] Referral ID Status Reason Start Date Expiration Date Visits Requested Visits Authorized [id number] Pending Review Specialty Services Required 05/13/2023 05/12/2024 1 1 * Consultation (Elective) - Pending Review Specialty Diagnoses / Procedures Referred By Contac t Referred To Contact Cardiology Diagnoses Chronic obstructive pulmonary disease, unspecified COPD type (HCC) Primary hypertension Tobacco use disorder JENNIFER (obstructive sleep apnea) Morbid obesity with BMI of 40.0-44.9, adult (HCC) Procedures PA OFFICE/OUTPATIENT NEW HIGH MDM 60-74 MINUTES Brett Bernal PA [address] [place] [address] [facility] Card [address] [place] [address] Referral ID Status Reason Start Date Expiration Date Visits Requested Visits Authorized [id number] Pending Review Specialty Services Required 05/13/2023 05/12/2024 [...] FoundDocuments on File Type Date Recorded 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 [place] [address] Referral ID Status Reason Start Date Expiration Date V isits Requested Visits Authorized [id number] Incomplete 06/25/2023 12/22/2023 1 1 Specialty Diagnoses / Procedures Referred By Contac t Referred To Contact Kareem Hartmann MD [address] [place] [address] Referral ID Status Reason Start Date Expiration Date V isits Requested Visits Authorized [id number] Pending Review 1 1 Referral ID Status Reason Start Date Expiration Date V isits Requested Visits Authorized [id number] Pending Review 1 1 Referral ID Status Reason Start Date Expiration Date V isits Requested Visits Authorized [id number] Authorized 1 1 Referral ID Status Reason Start Date Expiration Date Visits Re quested Visits Authorized [id number] Closed 1 1 Additional Source Comments INFORMATION SOURCE (unrecogn ized section and content) DATE CREATED AUTHOR AUTHOR'S ORGANIZ ATION 01/04/2019 [facility] DATE CREATED AUTHOR AUTHOR'S ORGANIZ ATION 02/19/2019 [facility] DATE CREATED AUTHOR AUTHOR'S ORGANIZ ATION 10/04/2020 [facility] DATE CREATED AUTHOR AUTHOR'S ORGANIZ ATION 12/12/2020 [facility] DATE CREATED AUTHOR AUTHOR'S ORGANIZ ATION 04/17/2022 [facility] DATE CREATED AUTHOR AUTHOR'S ORGANIZ ATION 10/10/2023 [facility] Source Comments (unrecognize d section and content) In the event this informatio n is protected by the Federal Confidentiality of Alcohol and Drug Abuse Patient Records regulations: The Federal rules restrict any use of the information to criminally investigate or prosecute any alcohol or drug abuse patient.[facility] Reason for Visit (unrecogniz ed section and content) Reason Comments Medication Management Telehealth (Audio) Follow Up Reason Comments Follow Up For evaluation of mo od Telehealth (Audio) Reason Comments Surgical Consult New Surg Specialty Diagnoses / Procedures Referred By Kori kirkpatrick Referred To Contact Bariatric Surgery / Bariatrics Diagnoses Obesity, unspecified Procedures evDejah Lewis, INSPECTOR ALUMINUM BOAT - DECAY CONTROL OPERATOR [address] [facility] [address] [place] [address] [facility] [address] [place] [address] Referral ID Status Reason Start Date Expiration Date V isits Requested Visits Authorized [id number] Pending Review 03/17/2023 03/16/2024 1 1 Reason [...] Diagnoses Functional dyspepsia Functional dyspepsia [K30] Procedures PA EGD TRANSORAL BIOPSY SINGLE/MULTIPLE EGD WITH BIOPSY Susie Ledezma MD [address] [place] [address] [address] [place] [address] Referral ID Status Reason Start Date Expiration Date Visits Re quested Visits Authorized [id number] 1 1 Reason Comments Weight Loss D/E [...] Care Teams (unrecognized sec tion and content) Retail Administrative Assistant Relationship Specialty Start Date End Date Leopoldo Baird [address] [place], [place] [address] PCP - General 12/05/20 Adelina Lin DO [address] [place] [phone] Addiction Medicine 04/30/23 Dejah Drew INSPECTOR ALUMINUM BOAT - DECAY CONTROL OPERATOR [address] [place] [address] Nurse Practitioner 04/30/23 Manjit Ga DO [address] [place] [address] Psychiatry 04/30/23 Retail Administrative Assistant Relationship Specialty Start Date End Date Leopoldo Baird [address] [place] [address] PCP - General 12/05/20 Adelina Lin DO [address] [place] [phone] Addiction Medicine 04/30/23 Dejah Drew INSPECTOR ALUMINUM BOAT - [facility] [address] [place] [phone] Nurse Practitioner 04/30/23 Manjit Ga DO [address] [place] [address] Psychiatry 04/30/23 Susie Ledezma MD [address] [place] [address] [address] [place] [address] Surgeon General Surgery 05/11/23 Retail Administrative Assistant Relationship Specialty Start Date End Date Leopoldo Baird [address] [place], [place] [phone] PCP - General 12/05/20 Adelina Lin DO [address] [place] [phone] Addiction Medicine 04/30/23 Dejah Drew APRN - DECAY CONTROL OPERATOR [address] [place] [address] Nurse Practitioner 04/30/23 Manjit Ga DO [address] [place] [address] Psychiatry 04/30/23 Susie Ledezma MD [address] [place] [address] [address] [place], [place] [id number] Surgeon General Surgery 05/11/23 Retail Administrative Assistant Relationship Specialty Start Date End Date Leopoldo Baird [address] [place] [address] PCP - General Internal Medicine 06/03/23 Adelina Lin DO [address] [place] [phone] Addiction Medicine 04/30/23 Dejah Drew APRN - DECAY CONTROL OPERATOR [address] [place] [address] Nurse Practitioner 04/30/23 Manjit Ga DO [address] [place] [address] Psychiatry 04/30/23 Susie Ledezma MD [address] [place] [address] [address] [place], [place] [id number] Surgeon General Surgery 05/11/23 Retail Administrative Assistant Relationship Specialty Start Date End Date Leopoldo Baird [address] [facility] [address] [place] [address] PCP - General Internal Medicine 06/03/23 Adelina Lin DO [address] [place] [phone] Addiction Medicine 04/30/23 Dejah Drew APRN - DECAY CONTROL OPERATOR [address] [facility] [address] [place] [address] Nurse Practitioner 04/30/23 Manjit Ga DO [address] [place] [address] Psychiatry 04/30/23 Susie Ledezma MD [address] [place] [address] Surgeon General Surgery 05/11/23 Retail Administrative Assistant Relationship Specialty Start Date End Date Leopoldo Baird [address] [facility] [address] [place] [address] PCP - General Internal Medicine 06/03/23 Adelina Lin DO [address] [place] [phone] Addiction Medicine 04/30/23 Dejah Drew APRN - DECAY CONTROL OPERATOR [address] [facility] [address] [place] [address] Nurse Practitioner 04/30/23 Manjit Ga DO [address] [place] [address] Psychiatry 04/30/23 Susie Ledezma MD [address] [place] [address] [address] [place] [address] Surgeon General Surgery 05/11/23 Retail Administrative Assistant Relationship Specialty Start Date End Date Leopoldo Baird [address] [place] [address] PCP - General Internal Medicine 06/03/23 Adelina Lin DO [address] [place] [address] Addiction Medicine 04/30/23 Dejah Drew APRN - DECAY CONTROL OPERATOR [address] [place] [address] [address] [place] [address] Nurse Practitioner 04/30/23 Manjit Ga DO [facility] [place] [address] Psychiatry 04/30/23 Susie Ledezma MD [address] [place] [address] [address] [place] [address] Surgeon General Surgery 05/11/23 Retail Administrative Assistant Relationship Specialty Start Date End Date AlvinohaileyVitaliymiramanda Saldana [address] [facility] [address] [place] [address] PCP - General Internal Medicine 06/03/23 Adelina Lin DO [address] [place] [phone] Addiction Medicine 04/30/23 Dejah Drew APRN - DECAY CONTROL OPERATOR [address] [facility] [address] [place] [address] Nurse Practitioner 04/30/23 Manjit Ga DO [address] [place] [address] Psychiatry 04/30/23 Susie Ledezma MD [address] [place] [address] [address] [place], [place] [id number] Surgeon General Surgery 05/11/23 Retail Administrative Assistant Relationship Specialty Start Date End Date Leopoldo Baird [address] [place] [address] PCP - General Internal Medicine 06/03/23 Adelina Lin DO [address] [place] [address] Addiction Medicine 04/30/23 Dejah Drew APRN - PATRICIO [address] [facility] [address] [place] [address] Nurse Practitioner 04/30/23 Manjit Ga DO [address] [place] [address] Psychiatry 04/30/23 Susie Ledezma MD [address] [place] [address] [address] [place] [address] Surgeon General Surgery 05/11/23 Retail Administrative Assistant Relationship Specialty Start Date End Date Leopoldo Baird PCP - General 12/05/20 06/02/23 Leopoldo Baird [address] [facility] [address] [place] [address] PCP - General Internal Medicine 06/03/23 Adelina Lin DO [address] [place] [address] Addiction Medicine 04/30/23 Dejah Drew INSPECTOR ALUMINUM BOAT - DECAY CONTROL OPERATOR [address] [place] [address] Nurse Practitioner 04/30/23 Manjit Ga DO [address] [place] [address] Psychiatry 04/30/23 Susie Ledezma MD [address] [place] [address] [address] [place], [place] [id number] Surgeon General Surgery 05/11/23 Retail Administrative Assistant Relationship Specialty Start Date End Date Leopoldo Baird [address] [place] [address] PCP - General Internal Medicine 06/03/23 Adelina Lin DO [address] [place] [address] Addiction Medicine 04/30/23 Dejah Drew INSPECTOR ALUMINUM BOAT - DECAY CONTROL OPERATOR [address] [place] [address] Nurse Practitioner 04/30/23 Manjit Ga DO [address] [place] [address] Psychiatry 04/30/23 Susie Ledezma MD [address] [place] [address] [address] [place], [place] [address] Surgeon General Surgery 05/11/23 Retail Administrative Assistant Relationship Specialty Start Date End Date Leopoldo Baird [address] [facility] [address] [place] [address] PCP - General Internal Medicine 06/03/23 Adelina Lni DO [address] [place] [phone] Addiction Medicine 04/30/23 Dejah Drew APRN - DECAY CONTROL OPERATOR [address] [place] [address] [address] [place] [address] Nurse Practitioner 04/30/23 Manjit Ga DO [address] [place] [address] Psychiatry 04/30/23 Susie Ledezma MD [address] [place] [address] 260 [place] [address] Surgeon General Surgery 05/11/23 Retail Administrative Assistant Relationship Specialty Start Date End Date Leopoldo Baird [address] [facility] [address] [place] [address] PCP - General Internal Medicine 06/03/23 Adelina Lin DO [address] [place] [address] Addiction Medicine 04/30/23 Dejah Drew APRN - DECAY CONTROL OPERATOR [address] [place] [address] [address] [place] [address] Nurse Practitioner 04/30/23 Manjit Ga DO [address] [place] [address] Psychiatry 04/30/23 Susie Ledezma MD [address] [place] [address] [address] [place] [address] Surgeon General Surgery 05/11/23 Retail Administrative Assistant Relationship Specialty Start Date End Date Leopoldo Baird [address] [facility] [address] [place] [address] PCP - General Internal Medicine 06/03/23 Adelina Lin DO [address] [place] [phone] Addiction Medicine 04/30/23 Dejah Drew APRN - DECAY CONTROL OPERATOR [address] [place] [address] [address] [place] [address] Nurse Practitioner 04/30/23 Manjit Ga DO [address] [place] [address] Psychiatry 04/30/23 Susie Ledezma MD [address] [place] [address] [address] [place] [address] Surgeon General Surgery 05/11/23 Retail Administrative Assistant Relationship Specialty Start Date End Date AlvinohaileyVitaliyhughkadie Saldana [address] [facility] [address] [place] [address] PCP - General Internal Medicine 06/03/23 Adelina Lin DO [address] [place] [phone] Addiction Medicine 04/30/23 Dejah Drew APRN - DECAY CONTROL OPERATOR [address] [place] [address] Nurse Practitioner 04/30/23 Manjit Ga DO [address] [place] [address] Psychiatry 04/30/23 Susie Ledezma MD [address] [place] [address] [address] [place] [address] Surgeon General Surgery 05/11/23 Retail Administrative Assistant Relationship Specialty Start Date End Date Leopoldo Baird PCP - General 12/05/20 06/02/23 Leopoldo Baird [address] [place] [address] PCP - General Internal Medicine 06/03/23 Adelina Lin DO [address] [place] [address] Addiction Medicine 04/30/23 Dejah Drew APRN - DECAY CONTROL OPERATOR [address] [facility] [address] [place] [address] Nurse Practitioner 04/30/23 Manjit Ga DO [address] [place] [address] Psychiatry 04/30/23 Susie Ledezma MD [address] [place] [address] [address] [place] [address] Surgeon General Surgery 05/11/23 Retail Administrative Assistant Relationship Specialty Start Date End Date Leopoldo Baird [address] [place] [address] PCP - General Internal Medicine 06/03/23 Adelina Lin DO [address] [place] [phone] Addiction Medicine 04/30/23 Dejah Drew APRN - DECAY CONTROL OPERATOR [address] [place] [address] Nurse Practitioner 04/30/23 Manjit Ga DO [address] [place] [address] Psychiatry 04/30/23 Susie Ledezma MD [address] [place] [address] [address] [place], [place] [address] Surgeon General Surgery 05/11/23 Retail Administrative Assistant Relationship Specialty Start Date End Date Leopoldo Baird [address] [facility] [address] [place] [address] PCP - General Internal Medicine 06/03/23 Adelina Lin DO [address] [place] [address] Addiction Medicine 04/30/23 Dejah Drew APRN - DECAY CONTROL OPERATOR [address] [place] [address] Nurse Practitioner 04/30/23 Manjit Ga DO [address] [place] [address] Psychiatry 04/30/23 Susie Ledezma MD [address] [place] [address] [address] [place] [address] Surgeon General Surgery 05/11/23 Retail Administrative Assistant Relationship Specialty Start Date End Date Leopoldo Baird PCP - General 12/05/20 06/02/23 Leopoldo Baird [address] [facility] [address] [place] [address] PCP - General Internal Medicine 06/03/23 Adelina Lin DO [address] [place] [phone] Addiction Medicine 04/30/23 Dejah Drew APRN - CNP [address] [facility] [address] [place] [address] Nurse Practitioner 04/30/23 Manjit Ga DO [address] [place] [address] Psychiatry 04/30/23 Susie Ledezma MD [address] [place] [address] [address] [place] [address] Surgeon General Surgery 05/11/23 Continuous Active and [...] BE BASED ON THE PRIMARY CLINICAL RECORDS. [employer] provides no warranty or guarantee of the accuracy or completeness of information in this document.
[2023-10-16 23:24] LABS: Urine Sodium 30 mmol/L (Not Establ.)
[2023-10-16 23:36] LABS: Osmolality, Serum 244 mOsm/KG (280-301)
[2023-10-16 23:37] LABS: Osmolality, Urine 131 mOsm/KG
[2023-10-17] VITALS (13 sets, daily range): BP systolic 130–163; BP diastolic 68–92; PULSE 69–80; RESP 16–18; TEMP 36.5–36.8; O2SAT 94–96; BMI 41.3
[2023-10-17 01:07] LABS: Bedside Glucose 100 mg/dL (74-106)
[2023-10-17] MEDS: hydrALAZINE 50 MG Tablet PO ×4 (02:04→22:41)
[2023-10-17] MEDS: Metoprolol(XL)Succ 25 MG Tablet PO ×2 (02:04→22:49)
[2023-10-17] MEDS: 0.9% Saline Lock 10 ML Syringe IV (06:10)
[2023-10-17 06:33] LABS: Bedside Glucose 90 mg/dL (74-106)
[2023-10-17 06:47] LABS: Hematocrit 31.6 % (37-47); Hemoglobin 11.3 g/dL (12.0-15.0); Mean Corp Hgb Conc 35.8 g/dL (32-36); Mean Corpuscular Hgb 32.1 pg (27.0-32.0); Mean Corpuscular Volume 89.8 fL (81-99); Mean Platelet Vol. 8.9 fl (6.2-12.0); Platelet Count 303 K/mm3 (150-450); RBC Distribution Width SD 45.3 fl (35.1-43.9); Red Blood Count 3.52 M/mm3 (4.2-5.4); White Blood Count 12.3 K/mm3 (4.4-11.0)
[2023-10-17 07:08] LABS: Anion Gap 6 (5-15); BUN 7 mg/dL (7-18); BUN/Creat Ratio 9.7 RATIO (10-20); Calcium,Total 8.9 mg/dL (8.5-10.1); Chloride 91 mmol/L (98-107); Creatinine, Serum 0.72 mg/dL (0.55-1.02); EST Glomerular Filtration Rate 85 mL/min (>60); Est Glom Filt Rate - Afr Amer 102 mL/min (>60); Estimated Creatinine Clearance 37.06 ml/min; Glucose 95 mg/dL (74-106); Potassium 4.3 mmol/L (3.5-5.1); Sodium Level 122 mmol/L (136-145)
[2023-10-17] MEDS: Ferrous Sulfate 325 MG Tablet PO (10:41)
[2023-10-17] MEDS: Calcium (Elemental) 500 MG Tablet PO ×2 (10:44→22:43)
[2023-10-17] MEDS: Metoprolol(XL)Succ 50 MG Tablet PO (10:44)
[2023-10-17] MEDS: Meloxicam 15 MG Tablet PO (10:44)
[2023-10-17] MEDS: Tolterodine Tartrate 2 MG CAP.SA PO (10:44)
[2023-10-17] MEDS: Lisinopril 40 MG Tablet PO (10:44)
[2023-10-17] MEDS: Enoxaparin 40 MG/0.4 ML Syringe SC ×2 (10:45→22:43)
[2023-10-17] MEDS: Lactulose 20 GM/30 ML UDC 10 GM PO ×2 (10:45→22:46)
[2023-10-17] MEDS: Divalproex (ER) 500 MG Tablet PO ×2 (10:45→22:42)
[2023-10-17 12:08] LABS: Bedside Glucose 124 mg/dL (74-106)
--- NOTE | 2023-10-17 13:03 | PN_ITS ---
Subjective Subjective Patient seen and examined. She looks quite weak. She had no active complaints. She denied any fever or chills, palpitations or dizziness, nausea vomiting or any other symptoms. Review of systems otherwise negative. Sodium is up to 122 today. She has otherwise remained hemodynamically stable. Objective Data Objective Data Vital Signs: Vital Signs Temp Pulse Resp BP Pulse Ox O2 Del Method 98.3 F 70 16 147/70 H 94 Room Air 10/17/23 10:38 10/17/23 10:44 10/17/23 10:38 10/17/23 10:44 10/17/23 10:38 10/17/23 10:38 Oxygen Delivery Method Room Air Weight: 211 lb 6.773 oz Body Mass Index (BMI) 41.3 Intake & Output: Intake and Output for Last 24 Hours 10/15/23 10/16/23 10/17/23 23:59 23:59 23:59 Intake Total 1000 / 1000 Output Total 420 / 420 Balance 1000 / 1000 -420 / -420 Lab / Micro Data 10/17/23 06:40 10/17/23 06:40 Labs: Laboratory Results - last 24 hr 10/16/23 20:00: WBC 15.0 H, RBC 4.22, Hgb 13.2, Hct 37.7, MCV 89.3 D, MCH 31.3, MCHC 35.0 D, RDW Std Deviation 45.0 H, RDW Coeff of Tami 13.9, Plt Count 536 H, MPV 8.7, Neut % (Auto) Not Reportable, Absolute Neuts (auto) 10.4 H, Absolute Lymphs (auto) 3.30, Total Counted 100, Neutrophils % (Manual) 65, Band Neutrophils % 4, Lymphocytes % (Manual) 22, Monocytes % (Manual) 6, Myelocytes % 3 H, Diff Path Review May foll, Platelet Estimate MOD INC, RBC Morphology N CHROM, Anisocytosis RARE, Macrocytosis RARE, Ovalocytes RARE, Sodium 117 L*, Potassium 3.7, Chloride 80 L, Carbon Dioxide 27.0, Anion Gap 10, BUN 8, Creatinine 0.99, Estim Creat Clear Calc 37.44, Est GFR (MDRD) Af Amer 71, Est GFR (MDRD) Non-Af 59 L, BUN/Creatinine Ratio 8.1 L, Glucose 103, Calcium 9.5, Total Bilirubin 0.60, AST 31, ALT 40, Alkaline Phosphatase 91, Ammonia 43.0 H, Troponin I High Sens 18, Total Protein 6.3 L, Albumin 3.2, Globulin 3.1, Albumin/Globulin Ratio 1.0, Lipase 12 L 10/16/23 20:49: Serum Osmolality 244 L, Valproic Acid 69, Ethyl Alcohol < 3.0 10/16/23 20:52: POC Glucose 107 H 10/16/23 20:57: Urine Color Yellow, Urine Clarity Clear, Urine pH 7.0, Ur Specific Ryan 1.005, Urine Protein 15 H, Urine Glucose (UA) Normal, Urine Ketones 5 H, Urine Occult Blood 10 H, Urine Nitrite Negative, Urine Bilirubin Negative, Urine Urobilinogen Normal, Ur Leukocyte Esterase Negative, Urine RBC 0 SEEN, Urine WBC 0 SEEN, Ur Squamous Epith Cells 0-5 SEEN, Urine Bacteria 0 SEEN, Urine Mucus 0 SEEN, Urine Osmolality 131, Ur Random Sodium 30 10/17/23 00:30: POC Glucose 100 10/17/23 06:07: POC Glucose 90 10/17/23 06:40: WBC 12.3 H, RBC 3.52 L, Hgb 11.3 L, Hct 31.6 L, MCV 89.8, MCH 32.1 H, MCHC 35.8, RDW Std Deviation 45.3 H, RDW Coeff of Tami 14.0, Plt Count 303, MPV 8.9, Sodium 122 L, Potassium 4.3, Chloride 91 L, Carbon Dioxide 25.0, Anion Gap 6, BUN 7, Creatinine 0.72, Estim Creat Clear Calc 37.06, Est GFR (MDRD) Af Amer 102, Est GFR (MDRD) Non-Af 85, BUN/Creatinine Ratio 9.7 L, Glucose 95, Calcium 8.9 10/17/23 11:39: POC Glucose 124 H Micro: Microbiology 10/16/23 20:34 Mucosa - Nose SARS-CoV-2, Influenza & RSV (PCR) - Final Radiography Diagnostic Testing: Radiology Impression Brain CT 10/16/23 20:08 IMPRESSION: Mild generalized atrophy. Mild low density bilaterally in the deep white matter. This likely represents chronic small vessel ischemic changes in the deep white matter. No change. Electronically Signed: Jacques Davenport MD at 22:12 EST , Chest X-Ray 10/16/23 21:02 IMPRESSION: 1. Calcified right hilar lymph nodes. 2. No acute cardiopulmonary abnormality. No change. Electronically Signed: Jacques Davenport MD at 22:15 EST , Physical Exam Const alert and no apparent distress Constitutional Narrative: frail and weak HEENT normocephalic and oropharynx normal Mouth: dry mucous membranes Eyes PERRL and EOMs intact bilaterally Neck no lymphadenopathy and supple Lymph Lymphatic: no lymphadenopathy noted and no lymphedema noted Resp normal respiratory effort, normal air movement and clear to auscultation bilaterally Cardio regular rate, regular rhythm, S1 normal heart sound, S2 normal heart sound and no murmurs GI normal to inspection, nondistended, normoactive bowel sounds, soft to palpation and non-tender Extremity normal capillary refill, no clubbing, cyanosis or edema and no calf tenderness General Extremity: no tenderness to palpation of joints or extremities Neuro CN's II-XII intact bilaterally, no focal motor deficits, no sensory deficits noted and deep tendon reflexes 2+ bilaterally Motor Exam: strength 5/5 throughout and general weakness Psych thought process normal, cooperative and affect normal Appearance: appropriate Assessment & Plan Assessment/Plan (1) Metabolic encephalopathy: (2) Hyponatremia: PLAN: Plan #Acute metabolic encephalopathy due to hyponatremia * Remains weak and frail. Sodium is up to 122 from 119. * Being hydrated with IV fluids normal saline. Nephrology consulted. It appears to be hypovolemic hypotonic hyponatremia. * Continue gentle hydration with nephrology recs. * #Elevated ammonia levels. * Order was 43 to this admission. On lactulose. Etiology is unclear. * CT of the abdomen and pelvis done on October 02, 2023 showed unremarkable liver with no focal mass. 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 Will consult neurology to see if there is any benefit in switching the seizure meds #Seizure disorder: * Valproic acid level was normal. On Valproic acid. * Will consult neurology to see if there is any benefit in switching the valproic acid to another seizure medication in light of her hyponatremia and hyperammonemia #Hypertension: On metoprolol, lisinopril and hydralazine #Hyperlipidemia: On statin #Type 2 diabetes mellitus: On metformin. Insulin sliding scale. Accu-Cheks ACHS. #History of bipolar disorder with dissociative identity disorder, no normal tr eatment and cover present. DVT prophylaxis: Lovenox Daughter Julia updated by phone. * Charges/Coding Visit Charges Inpatient E&M: 02864 Subs Hosp L3
[2023-10-17 13:51] LABS: Anion Gap 7 (5-15); BUN 7 mg/dL (7-18); BUN/Creat Ratio 9.7 RATIO (10-20); Calcium,Total 8.9 mg/dL (8.5-10.1); Chloride 92 mmol/L (98-107); Creatinine, Serum 0.72 mg/dL (0.55-1.02); EST Glomerular Filtration Rate 85 mL/min (>60); Est Glom Filt Rate - Afr Amer 102 mL/min (>60); Estimated Creatinine Clearance 37.06 ml/min; Glucose 109 mg/dL (74-106); Potassium 3.5 mmol/L (3.5-5.1); Sodium Level 127 mmol/L (136-145)
[2023-10-17] MEDS: CARIPRAZINE HCL 1.5 MG CAPSULE 3 MG PO (14:14)
[2023-10-17] MEDS: 0.9% Normal Saline (1000mL) 1,000 ML 125 ML IV (14:15)
--- NOTE | 2023-10-17 17:07 | CASEMGMT ---
MARIBELL DRAKE chart review: This is the patient's 4th admission this month. Previously admitted 09/18-09/21 confusion, UTI, hyponatremia; 09/27-09/30 AMS falls; 10/10-10/13 UTI hyponatremia; 10/16/23 Hyponatremia confusion. See assessment from 09/19/23. Patient wad discharged to home with [facility]. Patient returned 10/16 after daughter found patient on floor at home. Patient was admitted for hyponatremia of 119 and Ammonia 43.0. Patient had seen PCP on 10/14 and was stating she was not taking Lactulose as prescribed due to diarrhea, prescriptions adjusted. Patient has another PCP appt 10/27/22. RN VIDAL discussed possible SNF at discharge, patient agreeable if recommended by therapy. Therapy eval pending. CM will continue to follow this patient and plan for safe discharge.
[2023-10-17 18:09] LABS: Anion Gap 6 (5-15); BUN 6 mg/dL (7-18); Calcium,Total 9.1 mg/dL (8.5-10.1); Chloride 93 mmol/L (98-107); Creatinine, Serum 0.75 mg/dL (0.55-1.02); EST Glomerular Filtration Rate 81 mL/min (>60); Est Glom Filt Rate - Afr Amer 98 mL/min (>60); Estimated Creatinine Clearance 37.06 ml/min; Glucose 99 mg/dL (74-106); Potassium 3.8 mmol/L (3.5-5.1); Sodium Level 126 mmol/L (136-145)
[2023-10-17 19:40] LABS: Bedside Glucose 85 mg/dL (74-106)
[2023-10-17 22:41] LABS: Anion Gap 7 (5-15); BUN 8 mg/dL (7-18); BUN/Creat Ratio 10.4 RATIO (10-20); Chloride 93 mmol/L (98-107); Creatinine, Serum 0.77 mg/dL (0.55-1.02); EST Glomerular Filtration Rate 79 mL/min (>60); Est Glom Filt Rate - Afr Amer 95 mL/min (>60); Estimated Creatinine Clearance 37.06 ml/min; Glucose 108 mg/dL (74-106); Potassium 3.4 mmol/L (3.5-5.1); Sodium Level 128 mmol/L (136-145)
[2023-10-17] MEDS: lamoTRIgine 100 MG Tablet 200 MG PO (22:42)
[2023-10-17] MEDS: Atorvastatin Calcium 80 MG Tablet PO (22:42)
[2023-10-17 23:19] LABS: Bedside Glucose 111 mg/dL (74-106)
[2023-10-18] VITALS (12 sets, daily range): BP systolic 115–152; BP diastolic 69–86; PULSE 72–83; RESP 16; TEMP 36.2–36.8; O2SAT 94–98
[2023-10-18 00:57] LABS: Anion Gap 6 (5-15); BUN 8 mg/dL (7-18); BUN/Creat Ratio 8.9 RATIO (10-20); Calcium,Total 8.9 mg/dL (8.5-10.1); Chloride 91 mmol/L (98-107); EST Glomerular Filtration Rate 66 mL/min (>60); Est Glom Filt Rate - Afr Amer 79 mL/min (>60); Estimated Creatinine Clearance 41.18 ml/min; Glucose 102 mg/dL (74-106); Potassium 3.4 mmol/L (3.5-5.1); Sodium Level 129 mmol/L (136-145)
[2023-10-18] MEDS: hydrALAZINE 50 MG Tablet PO ×3 (05:55→20:52)
[2023-10-18 06:31] LABS: Differential Indicated MANUAL DIFF; Hematocrit 35.2 % (37-47); Mean Corp Hgb Conc 34.1 g/dL (32-36); Mean Corpuscular Hgb 30.9 pg (27.0-32.0); Mean Corpuscular Volume 90.7 fL (81-99); Mean Platelet Vol. 8.3 fl (6.2-12.0); POSITIVE COUNT YES; POSITIVE MORPHOLOGY YES; Platelet Count 453 K/mm3 (150-450); Red Blood Count 3.88 M/mm3 (4.2-5.4); White Blood Count 10.6 K/mm3 (4.4-11.0)
[2023-10-18 06:38] LABS: Bedside Glucose 102 mg/dL (74-106)
[2023-10-18 06:50] LABS: Lymphocyte 19 % (19-41); Metamyelocyte 3 % (0-1); Monocyte 11 % (0-10); Neutrophil-Segmented 67 % (47-70); Total Cells Counted 100 (MANUAL DIFF)
[2023-10-18 06:51] LABS: Differential Comment SCANNED
[2023-10-18 06:52] LABS: Platelet Estimate SLT INC (ADEQ)
[2023-10-18 06:53] LABS: Anion Gap 5 (5-15); BUN 7 mg/dL (7-18); BUN/Creat Ratio 9.5 RATIO (10-20); Calcium,Total 9.1 mg/dL (8.5-10.1); Chloride 95 mmol/L (98-107); Creatinine, Serum 0.74 mg/dL (0.55-1.02); EST Glomerular Filtration Rate 82 mL/min (>60); Est Glom Filt Rate - Afr Amer 100 mL/min (>60); Estimated Creatinine Clearance 37.06 ml/min; Glucose 102 mg/dL (74-106); Potassium 3.3 mmol/L (3.5-5.1); Red Cell Morphology NORM C+C NORMAL (NORM C&C); Sodium Level 129 mmol/L (136-145)
[2023-10-18 07:06] LABS: Absolute Neutrophil Count 7.4 X10^3/uL (2.0-7.7)
[2023-10-18 07:07] LABS: Absolute Lymphocyte Count 2.01 X10^3/uL (0.83-4.51); Lymphocyte # 2.01 X10^3/ul (0.83-4.51)
--- NOTE | 2023-10-18 08:41 | PCM.CONS.R ---
Assessment & Plan Assessment/Plan (1) Hyponatremia: PLAN: Plan Impression/Plan: The patient is a 73-year-old woman with past history of type 2 diabetes mellitus, COPD, depression, seizure disorder, hypertension, osteoarthritis, and hyperlipidemia. The patient presented to hospital with altered mental status and possible fall. The patient was found to have serum sodium of 117 mmol/L on presentation on 10/16/2023. Nephrology is following for hyponatremia. Hyponatremia. The patient has history of transient hyponatremia. She just presented to hospital between 09/27/2023 until 10/13/2023 with UTI. During this past admission, the patient had transient hyponatremia with serum sodium of 119 mmol/L on presentation. Serum sodium fluctuated during the admission but corrected to normal on 10/12/2023. On presentation, serum sodium was 117 mmol/L on 10/16/2023. Urine studies showed osmolality of 131 mOsm/kg and urine sodium of 30 mmol/L. Most likely, hyponatremia is primarily due to lack of solute intake along with hypovolemia. Serum sodium has corrected with normal saline at a safe rate. Another possible cause of hyponatremia is continued use of valproic acid along with NSAIDs. These medication can predispose SIADH. However, since patient has been on these medications chronically in the past and she was taking them during the last admission as serum sodium corrected, I do not think we need to stop these medications at this point. I will recheck urine studies today now that she has been volume expanded with normal saline. Continue to encourage oral solute intake, particularly protein. Solute such as protein will help the kidney excrete excess water which will help attenuate drop in serum sodium. Okay to continue valproic acid and NSAIDs for now. I will place her on 1.5 L fluid restriction since she does not appear to be volume depleted today. Continue to monitor serum sodium, but we can decrease frequency of checks to once a day. Nephrology plan was discussed with Dr. Parikh. HPI Consult Data Date of Consult: 10/18/23 HPI Narrative Reason for Consultation: Hyponatremia HPI Narrative: The patient is a 73-year-old woman with past history of type 2 diabetes mellitus, COPD, depression, seizure disorder, hypertension, osteoarthritis, and hyperlipidemia. Patient presented to hospital on 10/16/2023 with altered mental status. The patient was found by her daughter on the day of presentation to be on the ground. Was unclear whether the patient is fallen prior to presentation or not. Patient was found to be oriented only to person on presentation. During the evaluation in ED, the patient was found to have serum sodium of 117 mmol/L. The patient was just admitted to hospital between 09/27/2022 until 10/13/2023 with UTI. During this admission, the patient was also found to have transient hyponatremia. During this past admission, the patient presented with serum sodium of 119 mmol/L on 09/27/2023. Serum sodium increased to 139 mmol/L on 10/12/2023 prior to discharge. Today, the patient denies headache, nausea, or vomiting. The patient cannot recall events leading up to her presentation. However, she is more awake and alert today per her nurse. There is no chest pain, dyspnea, or edema. There is no orthopnea or PND. [facility] Medical History Abdominal pain Actinic keratoses Anemia Arthritis Atypical chest pain Back problem Basal cell carcinoma of right forehead Basal cell carcinoma of right medial cheek Basal cell carcinoma of upper lip Benign neoplasm of skin of cheek Bilateral lower extremity edema Bladder disease Cancer COPD (chronic obstructive pulmonary disease) Cutaneous candidiasis DDD (degenerative disc disease) Debility Dermatitis Diabetes Dietary restriction Dissociative identity disorder Dizziness Drug abuse Flu vaccine need Frequent falls Gastric reflux Hemangioma of face Hepatitis High cholesterol History of edema History of stress test History of UTI Hypertension Injury of back Injury of head and neck Intertrigo Intradermal nevus Kidney disease Kidney failure Left ankle pain Left wrist fracture Loose, teeth Low iron Manic episode Morbid obesity Multiple personalities Neoplasm of skin of eyelid Neoplasm of skin of nose Neurofibroma of neck Obesity (BMI 30-39.9) Osteoarthritis Osteoporosis Panic attacks Prediabetes Primary osteoarthritis, left shoulder Rib pain on right side Seizures Shortness of breath on exertion Substance abuse Tumors Type 2 diabetes mellitus Urinary incontinence Venous insufficiency of both lower extremities Walker as ambulation aid Wears glasses Weight gain Home Medications acetaminophen 650 mg tablet,extended release (Tylenol Arthritis Pain) 650 mg PO Q12H PRN pain 01/23/21 [History Last Taken Unknown] Handicap Placard #1 ea 02/07/21 [Rx Last Taken Unknown] inhalational spacing device (POCKET CHAMBER spacer) #1 ea 06/26/21 [Rx Last Taken Unknown] buprenorphine 100 mg/0.5 mL solution,exten.rel.subcutaneous syringe 100 mg subcut QMONTH WITHDRAWAL SYMPTOM CONTROL 08/07/21 [History Last Taken 09/17/23] ascorbic acid (vitamin C) 500 mg capsule 500 mg PO DAILY vitamin 07/08/22 [History Last Taken Unknown] Incentive Spirometer #1 ea 08/05/22 [Rx Last Taken Unknown] ferrous sulfate 324 mg (65 mg iron) tablet,delayed release 324 mg PO Q OTHER DAY supplement #90 tabs 11/17/22 [Rx Last Taken Unknown] metoprolol succinate 50 mg tablet,extended release 24 hr 50 mg PO DAILY blood pressure #90 tabs 01/05/23 [Rx Last Taken Unknown] mirabegron 50 mg tablet,extended release 24 hr (Myrbetriq) 50 mg PO Q24H diabetic 05/07/23 [History Last Taken Unknown] metoprolol succinate 25 mg tablet,extended release 24 hr 25 mg PO QHS blood perssure #90 tabs 05/08/23 [Rx Last Taken Unknown] rosuvastatin 40 mg tablet 40 mg PO DAILY cholesterol #90 tabs 05/08/23 [Rx Last Taken Unknown] miconazole nitrate 2 % topical powder (Desenex) 1 applic topical BID skin health #85 grams 07/10/23 [Rx Last Taken Unknown] blood sugar diagnostic (FreeStyle Lite Strips) #100 ea 07/15/23 [Rx Last Taken Unknown] blood-glucose meter (FreeStyle Lite Meter kit) #1 ea 07/15/23 [Rx Last Taken Unknown] lancets 28 gauge (FreeStyle Lancets) #200 ea 07/15/23 [Rx Last Taken Unknown] divalproex 500 mg tablet,extended release 24 hr 500 mg PO BID seizure #60 tabs 07/21/23 [Rx Last Taken Unknown] calcium carbonate 600 mg calcium (1,500 mg) tablet 600 mg PO BID supplement #180 tabs 08/06/23 [Rx Last Taken Unknown] lisinopril 40 mg tablet 40 mg PO QAM blood pressure #90 tabs 08/28/23 [Rx Last Taken Unknown] nicotine 21 mg/24 hr daily transdermal patch 1 patch transdermal Q24H to stop smoking #28 ea 09/16/23 [Rx Last Taken Unknown] cariprazine 3 mg capsule (Vraylar) 3 mg PO Q24H depression 09/19/23 [History Last Taken Unknown] fesoterodine 4 mg tablet,extended release 24 hr 4 mg PO DAILY bladder spasms 09/19/23 [History Last Taken Unknown] lamotrigine 200 mg tablet 200 mg PO QHS depression 09/19/23 [History Last Taken Unknown] meloxicam 15 mg tablet 15 mg PO DAILY pain 09/19/23 [History Last Taken Unknown] hydralazine 50 mg tablet 50 mg PO TID blood pressure #90 tabs 09/21/23 [Rx Last Taken Unknown] denosumab 60 mg/mL subcutaneous syringe (Prolia) 60 mg subcut [id number] bone health #1 mL 09/25/23 [Rx Last Taken Unknown] metformin 500 mg tablet,extended release 24 hr 500 mg PO BID diabetes #60 tabs 09/25/23 [Rx Last Taken Unknown] lactulose 10 gram/15 mL oral solution 10 g (15 mL) PO BID laxative #946 mL 10/14/23 [Rx Last Taken Unknown] Allergy/AdvReac Type Severity Reaction Status Date / Time iloperidone [From Fanapt] Allergy Severe Other Verified 10/16/23 19:38 paliperidone [From Invega] Allergy Severe increased Verified 10/16/23 19:38 psychiatric symptoms lurasidone [From Latuda] Allergy Other Verified 10/16/23 19:38 trazodone AdvReac Severe Other Verified 10/16/23 19:38 theophylline AdvReac Other Verified 10/16/23 19:38 Family History Brother Colon cancer Lung cancer Aunt Obesity Sister Obesity Mother Rheumatoid arthritis Father Alzheimer disease Brother Alzheimer disease Surgical History H/O hernia repair H/O: hysterectomy History of 3 sections History of basal cell carcinoma excision History of History of carpal tunnel surgery History of cholecystectomy History of colonoscopy History of endoscopy History of excision of lesion History of hernia repair Social History Smoking Status: Former smoker Tobacco: How many years used: 20 how long ago did patient quit smoking: second hand exposure: No alcohol intake: never substance use type: former substance user Date of last use: Cocaine what type of physical activity do you participate in: none vince/scientology: Scientology seatbelt use: always ROS ROS Narrative 07/28 ROS was done. ROS is otherwise noncontributory to what is already documented in HPI. Physical Exam Narrative General: Alert and oriented x3, NAD. HEENT: Normocephalic, atraumatic. Mucous membrane moist without erythema. PERRLA, EOMI. Hearing is intact. Neck: Supple, no JVD. Trachea is midline. No thyromegaly or lymphadenopathy. Cardiovascular: Normal S1, S2. No rubs, murmurs, or gallops. Respiratory: Lungs are clear to auscultation bilaterally. No wheezing, rhonchi, or rales. Abdomen: Normal bowel sounds, soft, nontender, no guarding or rebound, no organomegaly. Extremities: No clubbing, cyanosis, or edema. Musculoskeletal: Full passive range of motion, no joint swelling. Psychiatric: Normal mood and affect. Skin: Warm and dry, no rash. Neurologic: Cranial nerve II to XII are grossly intact. No focal neurologic deficits. Lab / Micro Data 10/18/23 06:13 10/18/23 06:13 Labs: Laboratory Results - last 24 hr 10/17/23 11:39: POC Glucose 124 H 10/17/23 13:31: Sodium 127 L, Potassium 3.5, Chloride 92 L, Carbon Dioxide 28.0, Anion Gap 7, BUN 7, Creatinine 0.72, Estim Creat Clear Calc 37.06, Est GFR (MDRD) Af Amer 102, Est GFR (MDRD) Non-Af 85, BUN/Creatinine Ratio 9.7 L, Glucose 109 H, Calcium 8.9 10/17/23 17:02: POC Glucose 85 10/17/23 17:30: Sodium 126 L, Potassium 3.8, Chloride 93 L, Carbon Dioxide 27.0, Anion Gap 6, BUN 6 L, Creatinine 0.75, Estim Creat Clear Calc 37.06, Est GFR (MDRD) Af Amer 98, Est GFR (MDRD) Non-Af 81, BUN/Creatinine Ratio 8.0 L, Glucose 99, Calcium 9.1 10/17/23 22:00: Sodium 128 L, Potassium 3.4 L, Chloride 93 L, Carbon Dioxide 28.0, Anion Gap 7, BUN 8, Creatinine 0.77, Estim Creat Clear Calc 37.06, Est GFR (MDRD) Af Amer 95, Est GFR (MDRD) Non-Af 79, BUN/Creatinine Ratio 10.4, Glucose 108 H, Calcium 9.0 10/17/23 22:37: POC Glucose 111 H 10/18/23 00:20: Sodium 129 L, Potassium 3.4 L, Chloride 91 L, Carbon Dioxide 32.0, Anion Gap 6, BUN 8, Creatinine 0.90, Estim Creat Clear Calc 41.18, Est GFR (MDRD) Af Amer 79, Est GFR (MDRD) Non-Af 66, BUN/Creatinine Ratio 8.9 L, Glucose 102, Calcium 8.9 10/18/23 06:13: WBC 10.6, RBC 3.88 L, Hgb 12.0, Hct 35.2 L, MCV 90.7, MCH 30.9, MCHC 34.1, RDW Std Deviation 46.0 H, RDW Coeff of Tami 14.0, Plt Count 453 H, MPV 8.3, Neut % (Auto) Not Reportable, Absolute Neuts (auto) 7.4, Absolute Lymphs (auto) 2.01, Total Counted 100, Neutrophils % (Manual) 67, Lymphocytes % (Manual) 19, Monocytes % (Manual) 11 H, Metamyelocytes % 3 H, Differential Comment SCANNED, Diff Path Review February, Platelet Estimate T INC, RBC Morphology NORM C+C, Sodium 129 L, Potassium 3.3 L, Chloride 95 L, Carbon Dioxide 29.0, Anion Gap 5, BUN 7, Creatinine 0.74, Estim Creat Clear Calc 37.06, Est GFR (MDRD) Af Amer 100, Est GFR (MDRD) Non-Af 82, BUN/Creatinine Ratio 9.5 L, Glucose 102, Calcium 9.1 10/18/23 06:14: POC Glucose 102
[2023-10-18] MEDS: Potassium Chloride Oral Tablet 20 MEQ 40 MEQ PO (09:18)
[2023-10-18] MEDS: Enoxaparin 40 MG/0.4 ML Syringe SC ×2 (09:19→20:54)
[2023-10-18] MEDS: Lactulose 20 GM/30 ML UDC 10 GM PO (09:19)
[2023-10-18] MEDS: Tolterodine Tartrate 2 MG CAP.SA PO (09:20)
[2023-10-18] MEDS: Lisinopril 40 MG Tablet PO (09:20)
[2023-10-18] MEDS: Divalproex (ER) 500 MG Tablet PO ×2 (09:21→20:53)
[2023-10-18] MEDS: Meloxicam 15 MG Tablet PO (09:21)
[2023-10-18] MEDS: Metoprolol(XL)Succ 50 MG Tablet PO (09:21)
[2023-10-18] MEDS: Calcium (Elemental) 500 MG Tablet PO ×2 (09:21→20:52)
[2023-10-18] MEDS: CARIPRAZINE HCL 1.5 MG CAPSULE 3 MG PO (09:22)
--- NOTE | 2023-10-18 10:17 | PN_ITS ---
Subjective Subjective Patient seen and examined. She is much more alert and communicative this morning. She was comfortably eating breakfast. She had no complaints and had an uneventful night. Review of systems otherwise negative. She has remained hemodynamically stable. Sodium is up to 129 today. Fluids were discontinued yesterday evening because sodium had increased to 129. Objective Data Objective Data Vital Signs: Vital Signs Temp Pulse Resp BP Pulse Ox O2 Del Method O2 Flow Rate 97.2 F L 82 16 152/73 H 98 Room Air 5 10/18/23 09:16 10/18/23 09:21 10/18/23 09:16 10/18/23 09:21 10/18/23 09:16 10/18/23 09:53 10/18/23 00:00 Oxygen Flow Rate (L/min) 5 Oxygen Delivery Method Room Air Weight: 211 lb 6.773 oz Body Mass Index (BMI) 41.3 Intake & Output: Intake and Output for Last 24 Hours 10/16/23 10/17/23 10/18/23 23:59 23:59 23:59 Intake Total 1000 / 1000 693.75 / 913.75 220 / 220 Output Total 1320 / 1320 250 / 250 Balance 1000 / 1000 -626.25 / -406.25 -30 / -30 Lab / Micro Data 10/18/23 06:13 10/18/23 06:13 Labs: Laboratory Results - last 24 hr 10/17/23 11:39: POC Glucose 124 H 10/17/23 13:31: Sodium 127 L, Potassium 3.5, Chloride 92 L, Carbon Dioxide 28.0, Anion Gap 7, BUN 7, Creatinine 0.72, Estim Creat Clear Calc 37.06, Est GFR (MDRD) Af Amer 102, Est GFR (MDRD) Non-Af 85, BUN/Creatinine Ratio 9.7 L, Glucose 109 H, Calcium 8.9 10/17/23 17:02: POC Glucose 85 10/17/23 17:30: Sodium 126 L, Potassium 3.8, Chloride 93 L, Carbon Dioxide 27.0, Anion Gap 6, BUN 6 L, Creatinine 0.75, Estim Creat Clear Calc 37.06, Est GFR (MDRD) Af Amer 98, Est GFR (MDRD) Non-Af 81, BUN/Creatinine Ratio 8.0 L, Glucose 99, Calcium 9.1 10/17/23 22:00: Sodium 128 L, Potassium 3.4 L, Chloride 93 L, Carbon Dioxide 28.0, Anion Gap 7, BUN 8, Creatinine 0.77, Estim Creat Clear Calc 37.06, Est GFR (MDRD) Af Amer 95, Est GFR (MDRD) Non-Af 79, BUN/Creatinine Ratio 10.4, Glucose 108 H, Calcium 9.0 10/17/23 22:37: POC Glucose 111 H 10/18/23 00:20: Sodium 129 L, Potassium 3.4 L, Chloride 91 L, Carbon Dioxide 32.0, Anion Gap 6, BUN 8, Creatinine 0.90, Estim Creat Clear Calc 41.18, Est GFR (MDRD) Af Amer 79, Est GFR (MDRD) Non-Af 66, BUN/Creatinine Ratio 8.9 L, Glucose 102, Calcium 8.9 10/18/23 06:13: WBC 10.6, RBC 3.88 L, Hgb 12.0, Hct 35.2 L, MCV 90.7, MCH 30.9, MCHC 34.1, RDW Std Deviation 46.0 H, RDW Coeff of Tami 14.0, Plt Count 453 H, MPV 8.3, Neut % (Auto) Not Reportable, Absolute Neuts (auto) 7.4, Absolute Lymphs (auto) 2.01, Total Counted 100, Neutrophils % (Manual) 67, Lymphocytes % (Manual) 19, Monocytes % (Manual) 11 H, Metamyelocytes % 3 H, Differential Comment SCANNED, Diff Path Review May foll, Platelet Estimate SLT INC, RBC Morphology NORM C+C, Sodium 129 L, Potassium 3.3 L, Chloride 95 L, Carbon Dioxide 29.0, Anion Gap 5, BUN 7, Creatinine 0.74, Estim Creat Clear Calc 37.06, Est GFR (MDRD) Af Amer 100, Est GFR (MDRD) Non-Af 82, BUN/Creatinine Ratio 9.5 L , Glucose 102, Calcium 9.1 10/18/23 06:14: POC Glucose 102 Micro: Microbiology 10/16/23 20:34 Mucosa - Nose SARS-CoV-2, Influenza & RSV (PCR) - Final Physical Exam Const alert and no apparent distress Constitutional Narrative: frail and weak General Appearance: cooperative and comfortable HEENT normocephalic, head/scalp atraumatic, hearing grossly normal bilaterally, nasal mucous membranes and turbinates normal, moist oral mucous membranes and oropharynx normal Eyes PERRL, EOMs intact bilaterally and conjunctivae normal Neck full ROM, no lymphadenopathy and supple Lymph Lymphatic: no lymphadenopathy noted and no lymphedema noted Chest inspection of chest normal Resp normal respiratory effort, normal air movement, no use of accessory muscles and clear to auscultation bilaterally Cardio regular rate, regular rhythm, S1 normal heart sound, S2 normal heart sound, no murmurs and peripheral pulses 2+ throughout GI normal to inspection, nondistended, normoactive bowel sounds, soft to palpation, non-tender and non-distended Back/Spine normal ROM Extremity normal to inspection, normal capillary refill, no clubbing, cyanosis or edema, no calf tenderness and no pedal edema General Extremity: no tenderness to palpation of joints or extremities Skin no rashes or lesions noted Neuro CN's II-XII intact bilaterally, moves all extremities, no focal motor deficits, no sensory deficits noted and deep tendon reflexes 2+ bilaterally Motor Exam: strength 5/5 throughout and general weakness Psych thought process normal, cooperative and affect normal Appearance: appropriate Assessment & Plan Assessment/Plan (1) Metabolic encephalopathy: (2) Hyponatremia: PLAN: Plan #Acute metabolic encephalopathy due to hyponatremia * Remains weak and frail. Sodium is up to 129 today * appears to be a hypovolemic hypotonic hyponatremia, * Fluids discontinued as hyponatremia has resolved. Likely due to decreased intake * Nephrology on board. Appreciate recs. * * #Elevated ammonia levels. * Ammonia was 43 to this admission. On lactulose. Etiology is unclear. * CT of the abdomen and pelvis done on October 02, 2023 showed unremarkable liver with no focal mass. 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 Discussed with nephrology about the Depakote. Patient has been Depakote for 35 years and her hyponatremia and hyperkalemia on recent so it is unlikely that this Depakote may be the cause. Will level consult neurology consult to maintain patient on Depakote which she has taken for over 35 years and says she is not really willing to change. * #Seizure disorder: * Valproic acid level was normal. On Valproic acid. * Patient maintained on valproic acid per discussion with nephrology and patient also unwilling to change her medication as stated above. * #Hypertension: On metoprolol, lisinopril and hydralazine #Hyperlipidemia: On statin #Type 2 diabetes mellitus: On metformin. Insulin sliding scale. Accu-Cheks ACHS. #History of bipolar disorder with dissociative identity disorder: On Lamictal DVT prophylaxis: Lovenox Total time spent on evaluation and management of patient, reviewing chart and specialist notes, discussing plan with patient, discussion with nursing and ancillary staff as well as documentation:42 mins Charges/Coding Visit Charges Inpatient E&M: 07585 Subs Hosp L2
[2023-10-18 11:58] LABS: Urine Sodium 22 mmol/L (Not Establ.)
[2023-10-18 12:00] LABS: Osmolality, Urine 216 mOsm/KG
[2023-10-18 12:12] LABS: Bedside Glucose 128 mg/dL (74-106)
[2023-10-18 19:45] LABS: Bedside Glucose 137 mg/dL (74-106)
[2023-10-18] MEDS: Metoprolol(XL)Succ 25 MG Tablet PO (20:52)
[2023-10-18] MEDS: Atorvastatin Calcium 80 MG Tablet PO (20:52)
[2023-10-18] MEDS: lamoTRIgine 100 MG Tablet 200 MG PO (20:53)
[2023-10-18 21:00] LABS: Bedside Glucose 123 mg/dL (74-106)
[2023-10-19] VITALS (10 sets, daily range): BP systolic 124–169; BP diastolic 74–92; PULSE 70–82; RESP 15–18; TEMP 36.4–36.8; O2SAT 96–97
[2023-10-19] MEDS: hydrALAZINE 50 MG Tablet PO ×3 (05:35→21:41)
[2023-10-19 06:39] LABS: Bedside Glucose 124 mg/dL (74-106)
[2023-10-19 06:43] LABS: Hematocrit 33.7 % (37-47); Hemoglobin 11.2 g/dL (12.0-15.0); Mean Corp Hgb Conc 33.2 g/dL (32-36); Mean Corpuscular Hgb 31.1 pg (27.0-32.0); Mean Corpuscular Volume 93.6 fL (81-99); Mean Platelet Vol. 8.6 fl (6.2-12.0); POSITIVE COUNT YES; POSITIVE MORPHOLOGY YES; Platelet Count 442 K/mm3 (150-450); RBC Distribution Width CV 14.4 % (11.6-14.6); RBC Distribution Width SD 49.3 fl (35.1-43.9); White Blood Count 10.7 K/mm3 (4.4-11.0)
[2023-10-19 07:02] LABS: Differential Indicated MANUAL DIFF
[2023-10-19 07:05] LABS: Albumin, Serum 2.6 g/dL (3.2-5.0); BUN 6 mg/dL (7-18); BUN/Creat Ratio 7.8 RATIO (10-20); Calcium,Total 9.1 mg/dL (8.5-10.1); Chloride 97 mmol/L (98-107); Creatinine, Serum 0.77 mg/dL (0.55-1.02); EST Glomerular Filtration Rate 79 mL/min (>60); Est Glom Filt Rate - Afr Amer 95 mL/min (>60); Estimated Creatinine Clearance 37.06 ml/min; Glucose 101 mg/dL (74-106); Phosphorus 3.8 mg/dL (2.5-4.9); Potassium 4.3 mmol/L (3.5-5.1); Sodium Level 132 mmol/L (136-145)
[2023-10-19 08:03] LABS: Lymphocyte 26 % (19-41); Monocyte 4 % (0-10); Neutrophil-Band 4 % (0-5); Neutrophil-Segmented 66 % (47-70); Platelet Estimate ADEQUATE (ADEQ); Red Cell Morphology NORM C+C NORMAL (NORM C&C); Total Cells Counted 100 (MANUAL DIFF)
[2023-10-19 08:05] LABS: Absolute Lymphocyte Count 2.78 X10^3/uL (0.83-4.51); Absolute Neutrophil Count 7.5 X10^3/uL (2.0-7.7); Lymphocyte # 2.78 X10^3/ul (0.83-4.51); Neutrophil # 7.49 X10^3/uL (2.7-7.7)
[2023-10-19] MEDS: Ferrous Sulfate 325 MG Tablet PO (09:57)
[2023-10-19] MEDS: Lactulose 20 GM/30 ML UDC 10 GM PO ×2 (09:57→21:39)
[2023-10-19] MEDS: Meloxicam 15 MG Tablet PO (09:58)
[2023-10-19] MEDS: Lisinopril 40 MG Tablet PO (09:58)
[2023-10-19] MEDS: Calcium (Elemental) 500 MG Tablet PO ×2 (09:58→21:43)
[2023-10-19] MEDS: Divalproex (ER) 500 MG Tablet PO ×2 (09:59→21:41)
[2023-10-19] MEDS: Tolterodine Tartrate 2 MG CAP.SA PO (09:59)
[2023-10-19] MEDS: Enoxaparin 40 MG/0.4 ML Syringe SC ×2 (10:01→21:42)
[2023-10-19] MEDS: Metoprolol(XL)Succ 50 MG Tablet PO (10:02)
[2023-10-19] MEDS: CARIPRAZINE HCL 1.5 MG CAPSULE 3 MG PO (10:18)
--- NOTE | 2023-10-19 10:34 | PN.HOSP_ITS ---
Subjective Subjective No issues overnight, appears back to her baseline mental status Objective Data Objective Data Vital Signs: Vital Signs Temp Pulse Resp BP Pulse Ox O2 Del Method O2 Flow Rate 98.3 F 80 15 148/82 H 96 Room Air 5 10/19/23 10:09 10/19/23 10:09 10/19/23 10:09 10/19/23 10:09 10/19/23 10:09 10/19/23 10:09 10/18/23 00:00 Oxygen Flow Rate (L/min) 5 Oxygen Delivery Method Room Air Weight: 211 lb 6.773 oz Body Mass Index (BMI) 41.3 Intake & Output: Intake and Output for Last 24 Hours 10/18/23 10/19/23 10/20/23 03:59 03:59 03:59 Intake Total 913.75 / 913.75 1400 / 1400 100 / 100 Output Total 1320 / 1320 350 / 350 250 / 250 Balance -406.25 / -406.25 1050 / 1050 -150 / -150 Lab / Micro Data 10/19/23 05:43 10/19/23 05:43 Labs: Laboratory Results - last 24 hr 10/18/23 11:45: Urine Osmolality 216, Ur Random Sodium 22 10/18/23 11:54: POC Glucose 128 H 10/18/23 18:01: POC Glucose 137 H 10/18/23 20:38: POC Glucose 123 H 10/19/23 05:43: WBC 10.7, RBC 3.60 L, Hgb 11.2 L, Hct 33.7 L, MCV 93.6, MCH 31.1, MCHC 33.2, RDW Std Deviation 49.3 H, RDW Coeff of Tami 14.4, Plt Count 442, MPV 8.6, Neut % (Auto) Not Reportable, Absolute Neuts (auto) 7.5, Absolute Lymphs (auto) 2.78, Total Counted 100, Neutrophils % (Manual) 66, Band Neutrophils % 4, Lymphocytes % (Manual) 26, Monocytes % (Manual) 4, Diff Path Review May foll, Platelet Estimate ADEQUATE, RBC Morphology NORM C+C, Sodium 132 L, Potassium 4.3, Chloride 97 L, Carbon Dioxide 29.0, BUN 6 L, Creatinine 0.77, Estim Creat Clear Calc 37.06, Est GFR (MDRD) Af Amer 95, Est GFR (MDRD) Non-Af 79, BUN/Creatinine Ratio 7.8 L, Glucose 101, Calcium 9.1, Phosphorus 3.8, Albumin 2.6 L 10/19/23 06:20: POC Glucose 124 H Micro: Microbiology 10/16/23 20:34 Mucosa - Nose SARS-CoV-2, Influenza & RSV (PCR) - Final Physical Exam Narrative General: Alert, Oriented x3, Cooperative, No apparent distress HEENT: Atraumatic, PERRLA, EOMI, Normocephalic Oral: Moist Mucosa Neck: Supple, No JVD Lungs: Diminished, Normal air movement, No rhonchi, No wheeze, No rales Cardiovascular: Regular rate, Regular Rhythm, Normal S1, Normal S2, No murmurs Abdomen: Soft, Non Tender, Non-Distended, No Hepato-splenomegaly Extremities: No edema, Capillary Refill Less than 3 Seconds Skin: No rashes, No breakdown Musculoskeletal: No Tenderness to Palpation of Joints or Extremities Neurological: Moves all extremities, no focal deficits, Motor Exam 5/5 strength throughout, Sensory exam intact to light touch and pain Psych/Mental Status: Normal Affect, Appropriate Assessment & Plan Assessment/Plan (1) Metabolic encephalopathy: (2) Hyponatremia: PLAN: Plan #Acute metabolic encephalopathy due to hyponatremia * Remains weak and frail. Sodium is up to 132 today * appears to be a hypovolemic hypotonic hyponatremia, * Fluids discontinued as hyponatremia has resolved. Likely due to decreased intake * Nephrology on board. Appreciate recs. * PT/OT, evaluating for possible placement given her clear inability to care for herself at home #Elevated ammonia levels with history of elevated LFTs in the past * Ammonia was 43 to this admission. On lactulose. Etiology is unclear. * CT of the abdomen and pelvis done on October 02, 2023 showed unremarkable liver with no focal mass. 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 Discussed with nephrology about the Depakote. Patient has been Depakote for 35 years and her hyponatremia and hyperkalemia on recent so it is unlikely that this Depakote may be the cause. Will level consult neurology consult to maintain patient on Depakote which she has taken for over 35 years and says she is not really willing to change. #Seizure disorder: * Valproic acid level was normal. On Valproic acid. * Patient maintained on valproic acid per discussion with nephrology and patient also unwilling to change her medication as stated above. #Hypertension: On metoprolol, lisinopril and hydralazine will monitor and make adjustments as necessary #Hyperlipidemia: On statin #Type 2 diabetes mellitus: On metformin. Insulin sliding scale. Accu-Cheks ACHS. Will monitor and make adjustments as necessary #History of bipolar disorder with dissociative identity disorder: On Lamictal DVT: Lovenox Charges/Coding Visit Charges Inpatient E&M: 51771 Subs Hosp L2
[2023-10-19 12:14] LABS: Bedside Glucose 123 mg/dL (74-106)
[2023-10-19 16:30] LABS: Bedside Glucose 116 mg/dL (74-106)
[2023-10-19] MEDS: lamoTRIgine 100 MG Tablet 200 MG PO (21:42)
[2023-10-19] MEDS: Atorvastatin Calcium 80 MG Tablet PO (21:42)
[2023-10-19] MEDS: Metoprolol(XL)Succ 25 MG Tablet PO (21:43)
[2023-10-20] VITALS (10 sets, daily range): BP systolic 138–186; BP diastolic 72–93; PULSE 73–78; RESP 14–18; TEMP 36.6–36.7; O2SAT 94–97
[2023-10-20 00:05] LABS: Bedside Glucose 103 mg/dL (74-106)
[2023-10-20] MEDS: hydrALAZINE 50 MG Tablet PO ×3 (06:05→21:00)
[2023-10-20 07:02] LABS: Bedside Glucose 106 mg/dL (74-106)
[2023-10-20 08:29] LABS: Hematocrit 36.4 % (37-47); Hemoglobin 11.9 g/dL (12.0-15.0); Mean Corp Hgb Conc 32.7 g/dL (32-36); Mean Corpuscular Hgb 30.8 pg (27.0-32.0); Mean Corpuscular Volume 94.3 fL (81-99); Mean Platelet Vol. 8.4 fl (6.2-12.0); POSITIVE COUNT YES; POSITIVE MORPHOLOGY YES; Platelet Count 430 K/mm3 (150-450); RBC Distribution Width CV 14.4 % (11.6-14.6); RBC Distribution Width SD 49.2 fl (35.1-43.9); Red Blood Count 3.86 M/mm3 (4.2-5.4); White Blood Count 9.3 K/mm3 (4.4-11.0)
[2023-10-20 08:30] LABS: Differential Indicated MANUAL DIFF
[2023-10-20] MEDS: Lactulose 20 GM/30 ML UDC 10 GM PO ×2 (08:51→20:57)
[2023-10-20] MEDS: CARIPRAZINE HCL 1.5 MG CAPSULE 3 MG PO (08:51)
[2023-10-20] MEDS: Divalproex (ER) 500 MG Tablet PO ×2 (08:52→20:58)
[2023-10-20] MEDS: Enoxaparin 40 MG/0.4 ML Syringe SC ×2 (08:52→20:57)
[2023-10-20] MEDS: Calcium (Elemental) 500 MG Tablet PO ×2 (08:52→20:58)
[2023-10-20] MEDS: Lisinopril 40 MG Tablet PO (08:52)
[2023-10-20] MEDS: Metoprolol(XL)Succ 50 MG Tablet PO (08:53)
[2023-10-20 09:38] LABS: Eosinophil 1 % (0-5); Lymphocyte 19 % (19-41); Metamyelocyte 1 % (0-1); Monocyte 6 % (0-10); Myelocyte 2 % (0-0); Neutrophil-Segmented 71 % (47-70); Platelet Estimate ADEQUATE (ADEQ); Red Cell Morphology NORM C+C NORMAL (NORM C&C); Total Cells Counted 100 (MANUAL DIFF)
[2023-10-20 09:39] LABS: Absolute Neutrophil Count 6.6 X10^3/uL (2.0-7.7)
--- NOTE | 2023-10-20 10:02 | PN.RENAL_ITS ---
Subjective Subjective No new complaints Objective Data Objective Data Vital Signs: Vital Signs Temp Pulse Resp BP Pulse Ox O2 Del Method O2 Flow Rate 98.1 F 78 14 159/75 H 96 Room Air 5 10/20/23 08:47 10/20/23 08:53 10/20/23 08:47 10/20/23 08:53 10/20/23 08:47 10/20/23 08:47 10/18/23 00:00 Oxygen Flow Rate (L/min) 5 Oxygen Delivery Method Room Air Weight: 95.9 kg Body Mass Index (BMI) 41.3 Intake & Output: Intake and Output for Last 24 Hours 10/18/23 10/19/23 10/20/23 23:59 23:59 23:59 Intake Total 1620 / 1620 1170 / 1290 240 / 240 Output Total 350 / 350 250 / 550 500 / 500 Balance 1270 / 1270 920 / 740 -260 / -260 Lab / Micro Data 10/20/23 08:10 10/19/23 05:43 Labs: Laboratory Results - last 24 hr 10/19/23 11:51: POC Glucose 123 H 10/19/23 15:50: POC Glucose 116 H 10/19/23 21:46: POC Glucose 103 10/20/23 06:10: POC Glucose 106 10/20/23 08:10: WBC 9.3, RBC 3.86 L, Hgb 11.9 L, Hct 36.4 L, MCV 94.3, MCH 30.8, MCHC 32.7, RDW Std Deviation 49.2 H, RDW Coeff of Tami 14.4, Plt Count 430, MPV 8.4, Neut % (Auto) Not Reportable, Absolute Neuts (auto) 6.6, Absolute Lymphs (auto) 1.80, Total Counted 100, Neutrophils % (Manual) 71 H, Lymphocytes % (Manual) 19, Monocytes % (Manual) 6, Eosinophils % (Manual) 1, Metamyelocytes % 1, Myelocytes % 2 H, Diff Path Review May , Platelet Estimate ADEQUATE, RBC Morphology NORM C+C Micro: Microbiology 10/16/23 20:34 Mucosa - Nose SARS-CoV-2, Influenza & RSV (PCR) - Final Physical Exam Narrative Alert awake oriented x 3 no obvious distress no pallor no icterus no JVD s1s2 no murmurs lungs clear abdomen soft no organomegaly no edema no cyanosis Assessment & Plan Assessment/Plan (1) Hyponatremia: PLAN: Presumably due to poor oral intake of osmoles/beer potomania physi ology/polydipsia. Urine osmolality has been consistently less than 200. Sodium is now better, up to 132. Maintain fluid restriction. She is also on Depakote which makes excretion of free water somewhat difficult. Since sodium is better, no further workup needed.
--- NOTE | 2023-10-20 10:18 | PN.HOSP_ITS ---
Subjective Subjective Doing well, no issues overnight Objective Data Objective Data Vital Signs: Vital Signs Temp Pulse Resp BP Pulse Ox O2 Del Method O2 Flow Rate 98.1 F 78 14 159/75 H 96 Room Air 5 10/20/23 08:47 10/20/23 08:53 10/20/23 08:47 10/20/23 08:53 10/20/23 08:47 10/20/23 08:47 10/18/23 00:00 Oxygen Flow Rate (L/min) 5 Oxygen Delivery Method Room Air Weight: 211 lb 6.773 oz Body Mass Index (BMI) 41.3 Intake & Output: Intake and Output for Last 24 Hours 10/19/23 10/20/23 10/21/23 03:59 03:59 03:59 Intake Total 1400 / 1400 1290 / 1290 120 / 120 Output Total 350 / 350 550 / 550 200 / 200 Balance 1050 / 1050 740 / 740 -80 / -80 Lab / Micro Data 10/20/23 08:10 10/19/23 05:43 Labs: Laboratory Results - last 24 hr 10/19/23 11:51: POC Glucose 123 H 10/19/23 15:50: POC Glucose 116 H 10/19/23 21:46: POC Glucose 103 10/20/23 06:10: POC Glucose 106 10/20/23 08:10: WBC 9.3, RBC 3.86 L, Hgb 11.9 L, Hct 36.4 L, MCV 94.3, MCH 30.8, MCHC 32.7, RDW Std Deviation 49.2 H, RDW Coeff of Tami 14.4, Plt Count 430, MPV 8.4, Neut % (Auto) Not Reportable, Absolute Neuts (auto) 6.6, Absolute Lymphs (auto) 1.80, Total Counted 100, Neutrophils % (Manual) 71 H, Lymphocytes % (Manual) 19, Monocytes % (Manual) 6, Eosinophils % (Manual) 1, Metamyelocytes % 1, Myelocytes % 2 H, Diff Path Review May foll, Platelet Estimate ADEQUATE, RBC Morphology NORM C+C Micro: Microbiology 10/16/23 20:34 Mucosa - Nose SARS-CoV-2, Influenza & RSV (PCR) - Final Physical Exam Narrative General: Alert, Oriented x3, Cooperative, No apparent distress HEENT: Atraumatic, PERRLA, EOMI, Normocephalic Oral: Moist Mucosa Neck: Supple, No JVD Lungs: Diminished, Normal air movement, No rhonchi, No wheeze, No rales Cardiovascular: Regular rate, Regular Rhythm, Normal S1, Normal S2, No murmurs Abdomen: Soft, Non Tender, Non-Distended, No Hepato-splenomegaly Extremities: No edema, Capillary Refill Less than 3 Seconds Skin: No rashes, No breakdown Musculoskeletal: No Tenderness to Palpation of Joints or Extremities Neurological: Moves all extremities, no focal deficits, Motor Exam 5/5 strength throughout, Sensory exam intact to light touch and pain Psych/Mental Status: Normal Affect, Appropriate Assessment & Plan Assessment/Plan (1) Metabolic encephalopathy: (2) Hyponatremia: PLAN: Plan 1. Acute metabolic encephalopathy due to hyponatremia * Remains weak and frail. Sodium is up to 132 today * appears to be a hypovolemic hypotonic hyponatremia, * Fluids discontinued as hyponatremia has resolved. Likely due to decreased intake * Nephrology on board. Appreciate recs. * PT/OT, evaluating for possible placement given her clear inability to care for herself at home 2. Elevated ammonia levels with history of elevated LFTs in the past * Ammonia was 43 to this admission. On lactulose. Etiology is unclear. * CT of the abdomen and pelvis done on October 02, 2023 showed unremarkable liver with no focal mass. 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 Discussed with nephrology about the Depakote. Patient has been Depakote for 35 years and her hyponatremia and hyperkalemia on recent so it is unlikely that this Depakote may be the cause. Will level consult neurology consult to maintain patient on Depakote which she has taken for over 35 years and says she is not really willing to change. 3. Seizure disorder: * Valproic acid level was normal. On Valproic acid. * Patient maintained on valproic acid per discussion with nephrology and patient also unwilling to change her medication as stated above. 4. HTN/HLD ? Blood pressures are stable on metoprolol, lisinopril and hydralazine will monitor ? Make adjustments as necessary ? Continue with statin 5. Type 2 diabetes mellitus ? On metformin, will hold. Insulin sliding scale ? Accu-Cheks ACHS. ? Will monitor and make adjustments as necessary 6. History of bipolar disorder with dissociative identity disorder ? Stable ? On Lamictal 7. Overactive bladder ? We will hold her medications secondary to potential side effect complications DVT: Lovenox Charges/Coding Visit Charges Inpatient E&M: 37846 Subs Hosp L2
--- NOTE | 2023-10-20 11:10 | CASEMGMT ---
Physician and therapy are recommending patient go to a detention facility for rehab. Patient told RN she would go to TCU at [facility]. SW met with patient. Introduced self and role at [facility]. SW explained to patient that [facility] TCU does not take patient's insurance. SW provided patient with a list of detention facility providers including quality and resource use data and consistent with patient?s preferred geographic region, medical needs, and insurance network were provided from the [facility] Patient said her case manage Carolyne Ponce from [facility] is coming in to see patient. Patient said she will talk about it with Carolyne when she gets here. Ambreen BHAGAT PATIENT COMPANION???
[2023-10-20 11:14] LABS: Anion Gap 5 (5-15); BUN 4 mg/dL (7-18); BUN/Creat Ratio 4.8 RATIO (10-20); Calcium,Total 9.2 mg/dL (8.5-10.1); Chloride 97 mmol/L (98-107); Creatinine, Serum 0.84 mg/dL (0.55-1.02); EST Glomerular Filtration Rate 71 mL/min (>60); Est Glom Filt Rate - Afr Amer 86 mL/min (>60); Estimated Creatinine Clearance 44.12 ml/min; Glucose 110 mg/dL (74-106); Potassium 4.1 mmol/L (3.5-5.1); Sodium Level 131 mmol/L (136-145)
[2023-10-20 12:03] LABS: Bedside Glucose 123 mg/dL (74-106)
--- NOTE | 2023-10-20 12:50 | CASEMGMT ---
RN notified SW that per patient and her daughter patient's SNF choices are 1. [facility] and 2. [facility]. SW sent referrals to both facilities via [facility]. Await responses. Ambreen NASH
[2023-10-20 13:51] LABS: Pathologist Review Reviewed
[2023-10-20 17:15] LABS: Bedside Glucose 112 mg/dL (74-106)
[2023-10-20] MEDS: lamoTRIgine 100 MG Tablet 200 MG PO (20:58)
[2023-10-20] MEDS: Atorvastatin Calcium 80 MG Tablet PO (20:59)
[2023-10-20] MEDS: Metoprolol(XL)Succ 25 MG Tablet PO (20:59)
[2023-10-20 23:19] LABS: Bedside Glucose 117 mg/dL (74-106)
[2023-10-21] VITALS (10 sets, daily range): BP systolic 141–178; BP diastolic 80–96; PULSE 74–84; RESP 16–18; TEMP 36.5–36.8; O2SAT 92–98
[2023-10-21] MEDS: hydrALAZINE 50 MG Tablet PO ×3 (06:19→21:10)
[2023-10-21 06:48] LABS: Absolute Lymphocyte Count 2.91 X10^3/uL (0.83-4.51); Absolute Neutrophil Count 6.3 X10^3/uL (2.0-7.7); Basophil% 0.9 % (0-1); Eosinophil# 0.15 X10^3/uL; Eosinophils% 1.4 % (0-5); Hematocrit 38.5 % (37-47); Hemoglobin 12.5 g/dL (12.0-15.0); Lymphocyte # 2.91 X10^3/ul (0.83-4.51); Lymphocyte % 27.2 % (19-41); Mean Corp Hgb Conc 32.5 g/dL (32-36); Mean Corpuscular Hgb 31.2 pg (27.0-32.0); Mean Platelet Vol. 8.5 fl (6.2-12.0); Monocyte# 0.73 X10^3/uL; Monocyte% 6.8 % (0-10); NRBC Flagged by Analyzer 0 % (0-5); Neutrophil # 6.32 X10^3/uL (2.7-7.7); Neutrophil % 59.1 % (47-70); Platelet Count 467 K/mm3 (150-450); RBC Distribution Width CV 14.5 % (11.6-14.6); RBC Distribution Width SD 50.4 fl (35.1-43.9); Red Blood Count 4.01 M/mm3 (4.2-5.4); White Blood Count 10.7 K/mm3 (4.4-11.0)
[2023-10-21 07:09] LABS: Bedside Glucose 109 mg/dL (74-106)
--- NOTE | 2023-10-21 07:47 | CASEMGMT ---
[facility]. [facility] still has not responded with an answer. SW will have [facility] start the pre[facility]cert as [facility] are the first choice. Plan: d/c to [facility] pending insurance approval. Ambreen NASH
--- NOTE | 2023-10-21 08:53 | CASEMGMT ---
CAROLYNE notified [facility] to start pre-cert and also notified [facility] that patient chose another facility. Plan: [facility] pending pre-cert Ambreen NASH
[2023-10-21] MEDS: Lisinopril 40 MG Tablet PO (09:07)
[2023-10-21] MEDS: Lactulose 20 GM/30 ML UDC 10 GM PO ×2 (09:07→21:10)
[2023-10-21] MEDS: Ferrous Sulfate 325 MG Tablet PO (09:07)
[2023-10-21] MEDS: Divalproex (ER) 500 MG Tablet PO ×2 (09:08→21:10)
[2023-10-21] MEDS: Calcium (Elemental) 500 MG Tablet PO ×2 (09:08→21:11)
[2023-10-21] MEDS: Metoprolol(XL)Succ 50 MG Tablet PO (09:09)
[2023-10-21] MEDS: Enoxaparin 40 MG/0.4 ML Syringe SC ×2 (09:09→21:11)
[2023-10-21] MEDS: CARIPRAZINE HCL 1.5 MG CAPSULE 3 MG PO (09:10)
[2023-10-21 10:10] LABS: Pathologist Review Reviewed
[2023-10-21 10:19] LABS: Pathologist Review Reviewed
--- NOTE | 2023-10-21 10:24 | PCM.PN.HOSP ---
Subjective Subjective Doing well, no issues overnight. Objective Data Objective Data Vital Signs: Vital Signs Temp Pulse Resp BP Pulse Ox O2 Del Method O2 Flow Rate 97.7 F L 84 18 165/82 H 96 Room Air 5 10/21/23 09:05 10/21/23 09:09 10/21/23 09:05 10/21/23 09:05 10/21/23 09:05 10/21/23 09:05 10/18/23 00:00 Oxygen Flow Rate (L/min) 5 Oxygen Delivery Method Room Air Weight: 211 lb 6.773 oz Body Mass Index (BMI) 41.3 Intake & Output: Intake and Output for Last 24 Hours 10/20/23 10/21/23 10/22/23 03:59 03:59 03:59 Intake Total 1290 / 1290 1270 / 1270 100 / 100 Output Total 550 / 550 200 / 200 150 / 150 Balance 740 / 740 1070 / 1070 -50 / -50 Lab / Micro Data 10/21/23 06:20 10/20/23 08:10 Labs: Laboratory Results - last 24 hr 10/16/23 20:00: Diff Path Review Reviewed 10/18/23 06:13: Diff Path Review Reviewed 10/19/23 05:43: Diff Path Review Reviewed 10/20/23 08:10: Sodium 131 L, Potassium 4.1, Chloride 97 L, Carbon Dioxide 29.0, Anion Gap 5, BUN 4 L, Creatinine 0.84, Estim Creat Clear Calc 44.12, Est GFR (MDRD) Af Amer 86, Est GFR (MDRD) Non-Af 71, BUN/Creatinine Ratio 4.8 L, Glucose 110 H, Calcium 9.2 10/20/23 10:00: Urine Potassium 22.0 10/20/23 11:45: POC Glucose 123 H 10/20/23 16:42: POC Glucose 112 H 10/20/23 20:56: POC Glucose 117 H 10/21/23 06:18: POC Glucose 109 H 10/21/23 06:20: WBC 10.7, RBC 4.01 L, Hgb 12.5, Hct 38.5, MCV 96.0, MCH 31.2, MCHC 32.5, RDW Std Deviation 50.4 H, RDW Coeff of Tami 14.5, Plt Count 467 H, MPV 8.5, Immature Gran % (Auto) 4.600 H, Neut % (Auto) 59.1, Lymph % (Auto) 27.2, Towns % (Auto) 6.8, Eos % (Auto) 1.4, Baso % (Auto) 0.9, Absolute Neuts (auto) 6.3, Absolute Lymphs (auto) 2.91, Nucleated RBC % 0 Micro: Microbiology 10/16/23 20:34 Mucosa - Nose SARS-CoV-2, Influenza & RSV (PCR) - Final Physical Exam Narrative General: Alert, Oriented x3, Cooperative, No apparent distress HEENT: Atraumatic, PERRLA, EOMI, Normocephalic Oral: Moist Mucosa Neck: Supple, No JVD Lungs: Diminished, Normal air movement, No rhonchi, No wheeze, No rales Cardiovascular: Regular rate, Regular Rhythm, Normal S1, Normal S2, No murmurs Abdomen: Soft, Non Tender, Non-Distended, No Hepato-splenomegaly Extremities: No edema, Capillary Refill Less than 3 Seconds Skin: No rashes, No breakdown Musculoskeletal: No Tenderness to Palpation of Joints or Extremities Neurological: Moves all extremities, no focal deficits, Motor Exam 5/5 strength throughout, Sensory exam intact to light touch and pain Psych/Mental Status: Normal Affect, Appropriate Assessment & Plan Assessment/Plan (1) Metabolic encephalopathy: (2) Hyponatremia: PLAN: Plan 1. Acute metabolic encephalopathy due to hyponatremia likely due to SIADH as well as possible medications ?Remains weak and frail. Sodium is up to 131 today ?Fluids discontinued as hyponatremia has resolved. Likely due to decreased intake ?Nephrology on board. Appreciate recs. ?PT/OT, evaluating for possible placement given her clear inability to care for herself at home 2. Elevated ammonia levels with history of elevated LFTs in the past ?Ammonia was 43 to this admission. On lactulose. Etiology is unclear. ?CT of the abdomen and pelvis done on October 02, 2023 showed unremarkable liver with no focal mass. ?Liver enzymes have also largely remained normal ?Depakote can cause SIADH resulting in hyponatremia and hyperammonemia. Discussed with nephrology about the Depakote. Patient has been Depakote for 35 years and her hyponatremia and hyperkalemia on recent so it is unlikely that this Depakote may be the cause. Will level consult neurology consult to maintain patient on Depakote which she has taken for over 35 years and says she is not really willing to change. 3. Seizure disorder: ?Valproic acid level was normal. On Valproic acid. ?Patient maintained on valproic acid per discussion with nephrology and patient also unwilling to change her medication as stated above. 4. HTN/HLD ? Blood pressures are stable on metoprolol, lisinopril and hydralazine will monitor ? Make adjustments as necessary ? Continue with statin 5. Type 2 diabetes mellitus ? On metformin, will hold. Insulin sliding scale ? Accu-Cheks ACHS. ? Will monitor and make adjustments as necessary 6. History of bipolar disorder with dissociative identity disorder ? Stable ? On Lamictal 7. Overactive bladder ? We will hold her medications secondary to potential side effect complications DVT: Lovenox Charges/Coding Visit Charges Inpatient E&M: 26380 Subs Hosp L2
--- NOTE | 2023-10-21 10:54 | CASEMGMT ---
CAROLYNE was informed patient forgot which nursing homes she picked. CAROLYNE met with patient and let her know her daughter's choices for patient were [facility] and [facility]. CAROLYNE told patient [facility] accepted and they will send her information to insurance to get approval. Patient asked CAROLYNE to call her daughter. SW called patient's daughter Lizy and let her know above information. Lizy was happy with [facility] and asked that someone call her when patient will be moved. Plan: d/c to [facility] under skilled level of care pending insurance approval. Ambreen Bansal [employer]AD
[2023-10-21 12:06] LABS: Bedside Glucose 123 mg/dL (74-106)
[2023-10-21 17:02] LABS: Bedside Glucose 112 mg/dL (74-106)
[2023-10-21] MEDS: lamoTRIgine 100 MG Tablet 200 MG PO (21:10)
[2023-10-21] MEDS: Metoprolol(XL)Succ 25 MG Tablet PO (21:11)
[2023-10-21] MEDS: Atorvastatin Calcium 80 MG Tablet PO (21:11)
[2023-10-21 22:10] LABS: Bedside Glucose 110 mg/dL (74-106)
[2023-10-22 04:00] VITALS: BP 151/84; PULSE 74; RESP 16; TEMP 36.7; O2SAT 95
[2023-10-22 06:44] VITALS: BP 142/71; PULSE 78
[2023-10-22] MEDS: hydrALAZINE 50 MG Tablet PO (06:44)
[2023-10-22 07:16] LABS: Absolute Lymphocyte Count 1.76 X10^3/uL (0.83-4.51); Absolute Neutrophil Count 7.2 X10^3/uL (2.0-7.7); Basophil# 0.06 X10^3/uL; Basophil% 0.6 % (0-1); Eosinophil# 0.08 X10^3/uL; Eosinophils% 0.8 % (0-5); Hematocrit 38.9 % (37-47); Hemoglobin 12.4 g/dL (12.0-15.0); Lymphocyte # 1.76 X10^3/ul (0.83-4.51); Lymphocyte % 17.3 % (19-41); Mean Corp Hgb Conc 31.9 g/dL (32-36); Mean Corpuscular Hgb 30.5 pg (27.0-32.0); Mean Corpuscular Volume 95.6 fL (81-99); Mean Platelet Vol. 8.3 fl (6.2-12.0); Monocyte# 0.67 X10^3/uL; Monocyte% 6.6 % (0-10); NRBC Flagged by Analyzer 0 % (0-5); Neutrophil # 7.19 X10^3/uL (2.7-7.7); Neutrophil % 70.8 % (47-70); Platelet Count 454 K/mm3 (150-450); RBC Distribution Width CV 14.7 % (11.6-14.6); RBC Distribution Width SD 51.3 fl (35.1-43.9); Red Blood Count 4.07 M/mm3 (4.2-5.4); White Blood Count 10.2 K/mm3 (4.4-11.0)
[2023-10-22 07:21] LABS: Bedside Glucose 101 mg/dL (74-106)
[2023-10-22 07:56] LABS: Anion Gap 6 (5-15); BUN 8 mg/dL (7-18); BUN/Creat Ratio 9.6 RATIO (10-20); Calcium,Total 9.4 mg/dL (8.5-10.1); Chloride 98 mmol/L (98-107); Creatinine, Serum 0.83 mg/dL (0.55-1.02); EST Glomerular Filtration Rate 72 mL/min (>60); Est Glom Filt Rate - Afr Amer 87 mL/min (>60); Estimated Creatinine Clearance 44.65 ml/min; Glucose 98 mg/dL (74-106); Sodium Level 133 mmol/L (136-145)
[2023-10-22 08:00] VITALS: BP 155/74; PULSE 85; RESP 18; TEMP 36.6; O2SAT 97
[2023-10-22] MEDS: Acetaminophen 325 MG Tablet 650 MG PO (08:51)
[2023-10-22] MEDS: Lactulose 20 GM/30 ML UDC 10 GM PO (08:52)
[2023-10-22] MEDS: Enoxaparin 40 MG/0.4 ML Syringe SC (08:52)
[2023-10-22] MEDS: Divalproex (ER) 500 MG Tablet PO (08:52)
[2023-10-22 08:53] VITALS: BP 155/74; PULSE 85
[2023-10-22] MEDS: Calcium (Elemental) 500 MG Tablet PO (08:53)
[2023-10-22] MEDS: Lisinopril 40 MG Tablet PO (08:53)
[2023-10-22] MEDS: CARIPRAZINE HCL 1.5 MG CAPSULE 3 MG PO (08:53)
[2023-10-22] MEDS: Metoprolol(XL)Succ 50 MG Tablet PO (08:53)
--- NOTE | 2023-10-22 08:56 | CASEMGMT ---
Discharge Planning Requested PT notes sent via [facility] to [facility]. Giulia Lin, Discharge Planning Asst.
[2023-10-22 10:17] LABS: Pathologist Review Reviewed
--- NOTE | 2023-10-22 11:05 | PCM.TXEXTCAR ---
Diet Diet Order/Speech Therapy: 10/17/23 17:51 Diet: Cardiac - Heart Healthy Is pt able to select menu?: Yes Routine Orders/Code Status Code Status: Full Code Wound(s) L forearm: Wound Type: Abrasion Therapies Physical Therapy: Eval and Treat Occupational Therapy: Eval and Treat Problem/Diagnosis (1) Metabolic encephalopathy: Status: Acute Code(s): G93.41 - Metabolic encephalopathy (2) Hyponatremia: Status: Acute Code(s): E87.1 - Hypo-osmolality and hyponatremia Allergies/Procedures Done in Hospital Allergies iloperidone [From Fanapt] Allergy (Severe, Verified 10/16/23 19:38) Other CAUSES PT TO NOT WALK OR SPEAK paliperidone [From Invega] Allergy (Severe, Verified 10/16/23 19:38) increased psychiatric symptoms lurasidone [From Latuda] Allergy (Verified 10/16/23 19:38) Other can not remember trazodone Adverse Reaction (Severe, Verified 10/16/23 19:38) Other increased anxiety theophylline Adverse Reaction (Verified 10/16/23 19:38) Other Type of Care/Length of Stay Estimated LOS: Convalescent Care Less Than 30 days Type of Care Needed: Skilled Rehab Potential: Good Prognosis: Good Additional Orders/Day of Discharge Day of Discharge: 10/22/23 Dietary and Speech Recommendations Dietitian Recommendations/Changes: ADAT to consistent carbohydrate diet when medically able to manage medical conditions. Discharge Plan Admission Admit Date/Time: 10/16/23 22:59 Attending Provider: Marlon Kirby Primary Care Provider: Esperanza Baird Consulting Providers: Chadd Zambrano; Jourdan Stovall; Jazzmine Parikh; Angelito Shah Discharge Orders/Prescriptions Prescriptions: New melatonin 3 mg Tablet 3 mg PO QHS PRN PRN (Reason: Insomnia) Qty: 0 0RF insulin lispro [Humalog KwikPen Insulin] 100 unit/mL Insulin Pen See Protocol subcut ACHS Qty: 0 0RF Protocol: 4. Sliding Scale Insulin High-Med Dosing Condition: 150-199 mg/dl = 2 units Condition: 200-259 mg/dl = 4 units Condition: 260-324 mg/dl = 6 units Condition: 325-374 mg/dl = 8 units Condition: 375-409 mg/dl = 10 units Condition: 410-449 mg/dl = 11 units Condition: Greater than 449 call physician Protocol Text: - Use for Total Daily Dose of Insulin 56-80 units - Patient who are insulin resistant or septic HIGH MEDIUM DOSING ALGORITHM Continued acetaminophen [Tylenol Arthritis Pain] 650 mg tablet extended release 650 mg PO Q12H PRN (Reason: pain) buprenorphine 100 mg/0.5 mL solution, extended rel syringe 100 mg subcut QMONTH ascorbic acid (vitamin C) 500 mg capsule 500 mg PO DAILY (DME) Incentive Spirometer See Rx Instructions .Route .MEDSUPPLY Qty: 1 0RF Rx Instructions: As directed ferrous sulfate 324 mg (65 mg iron) tablet,delayed release (DR/EC) 324 mg PO Q OTHER DAY Qty: 90 2RF divalproex 500 mg tablet extended release 24 hr 500 mg PO BID Qty: 60 7RF metformin 500 mg tablet extended release 24 hr 500 mg PO BID Qty: 60 3RF Prolia 60 mg/mL syringe 60 mg subcut [id number] Qty: 1 2RF lactulose 10 gram/15 mL solution 10 g PO BID Qty: 946 7RF fesoterodine 4 mg tablet extended release 24 hr 4 mg PO DAILY lamotrigine 200 mg tablet 200 mg PO QHS Rx Instructions: TAKE ONE TABLET BY MOUTH AT BEDTIME Vraylar 3 mg capsule 3 mg PO Q24H Rx Instructions: TAKE ONE CAPSULE BY MOUTH EVERY DAY hydralazine 50 mg tablet 50 mg PO TID Qty: 90 1RF (DME) Handicap Placard See Rx Instructions .ROUTE .MEDSUPPLY Qty: 1 0RF Rx Instructions: As directed, length of time 5 years (DME) POCKET CHAMBER Spacer See Rx Instructions .ROUTE .MEDSUPPLY Qty: 1 0RF Rx Instructions: As directed metoprolol succinate 50 mg tablet extended release 24 hr 50 mg PO DAILY Qty: 90 3RF Rx Instructions: Take with 25 mg for a total daily dose of 75 mg metoprolol succinate 25 mg tablet extended release 24 hr 25 mg PO QHS Qty: 90 2RF rosuvastatin 40 mg tablet 40 mg PO DAILY Qty: 90 2RF (DME) FreeStyle Lite Strips Strip See Rx Instructions .MEDSUPPLY Qty: 100 3RF Rx Instructions: check blood glucose daily for type 2 DM (DME) blood-glucose meter [FreeStyle Lite Meter] Kit See Rx Instructions .MEDSUPPLY Qty: 1 0RF Rx Instructions: As directed, check blood glucose daily for type 2 DM (DME) lancets [FreeStyle Lancets] 28 gauge misc See Rx Instructions .MEDSUPPLY Qty: 200 3RF Rx Instructions: check blood glucose daily for type 2 DM calcium carbonate 600 mg calcium (1,500 mg) tablet 600 mg PO BID Qty: 180 3RF lisinopril 40 mg tablet 40 mg PO QAM Qty: 90 2RF nicotine 21 mg/24 hr patch 24 hour 1 patch transdermal Q24H Qty: 28 2RF Hold Instructions: Pt has been DC'd Discontinued Myrbetriq 50 mg tablet extended release 24 hr 50 mg PO Q24H meloxicam 15 mg tablet 15 mg PO DAILY Referrals / Follow Up: Esperanza Baird MD [Primary Care Provider] - Disposition Disposition (needs filled in before D/C Order can be placed): Residential Facility
--- NOTE | 2023-10-22 11:06 | PCM.DC.SUM ---
Providers Date of Admission: 10/16/23 Primary Care Physician: Dr. Esperanza Baird MD Consultations 10/17/23 03:56 Consult: Nephrology Routine Consulting Provider: Jourdan Stovall Reason for Consult: hyponatremia EMERGENT Consult: No Notified: Yes Date Notified: 10/17/23 Time Notified: 06:56 Method of Notification: Text 10/17/23 13:26 Consult: Tele-Neurology Routine Consulting Provider: [facility] Reason for Consult: history of seizures,consult for review and adjustment of seizure meds EMERGENT Consult: No MD Notified: Yes Date Notified: 10/17/23 Time Notified: 13:27 Method of Notification: Answering Service Comments:: has hyponatremia & hyperammonemia, ? to change [facility] Staff Notify [facility] of Tele-Neurology Consult: Yes Reason For Visit: ALTERED MENTAL STATUS, HYPONATREMIA Diagnosis Discharge Diagnosis (1) Metabolic encephalopathy: Status: Acute Code(s): G93.41 - Metabolic encephalopathy (2) Hyponatremia: Status: Acute Code(s): E87.1 - Hypo-osmolality and hyponatremia Medications at Discharge Home Medications acetaminophen 650 mg tablet,extended release (Tylenol Arthritis Pain) 650 mg PO Q12H PRN pain 01/23/21 Handicap Placard #1 ea 02/07/21 inhalational spacing device (POCKET CHAMBER spacer) #1 ea 06/26/21 buprenorphine 100 mg/0.5 mL solution,exten.rel.subcutaneous syringe 100 mg subcut QMONTH WITHDRAWAL SYMPTOM CONTROL 08/07/21 ascorbic acid (vitamin C) 500 mg capsule 500 mg PO DAILY vitamin 07/08/22 Incentive Spirometer #1 ea 08/05/22 ferrous sulfate 324 mg (65 mg iron) tablet,delayed release 324 mg PO Q OTHER DAY supplement #90 tabs 11/17/22 metoprolol succinate 50 mg tablet,extended release 24 hr 50 mg PO DAILY blood pressure #90 tabs 01/05/23 metoprolol succinate 25 mg tablet,extended release 24 hr 25 mg PO QHS blood perssure #90 tabs 05/08/23 rosuvastatin 40 mg tablet 40 mg PO DAILY cholesterol #90 tabs 05/08/23 blood sugar diagnostic (FreeStyle Lite Strips) #100 ea 07/15/23 blood-glucose meter (FreeStyle Lite Meter kit) #1 ea 07/15/23 lancets 28 gauge (FreeStyle Lancets) #200 ea 07/15/23 divalproex 500 mg tablet,extended release 24 hr 500 mg PO BID seizure #60 tabs 07/21/23 calcium carbonate 600 mg calcium (1,500 mg) tablet 600 mg PO BID supplement #180 tabs 08/06/23 lisinopril 40 mg tablet 40 mg PO QAM blood pressure #90 tabs 08/28/23 nicotine 21 mg/24 hr daily transdermal patch 1 patch transdermal Q24H to stop smoking #28 ea 09/16/23 cariprazine 3 mg capsule (Vraylar) 3 mg PO Q24H depression 09/19/23 fesoterodine 4 mg tablet,extended release 24 hr 4 mg PO DAILY bladder spasms 09/19/23 lamotrigine 200 mg tablet 200 mg PO QHS depression 09/19/23 hydralazine 50 mg tablet 50 mg PO TID blood pressure #90 tabs 09/21/23 denosumab 60 mg/mL subcutaneous syringe (Prolia) 60 mg subcut [id number] bone health #1 mL 09/25/23 metformin 500 mg tablet,extended release 24 hr 500 mg PO BID diabetes #60 tabs 09/25/23 lactulose 10 gram/15 mL oral solution 10 g (15 mL) PO BID laxative #946 mL 10/14/23 insulin lispro 100 unit/mL subcutaneous pen (Humalog KwikPen (U-100) Insulin) See Protocol subcut ACHS #0 mL 10/22/23 melatonin 3 mg tablet 3 mg PO QHS PRN PRN Insomnia #0 tabs 10/22/23 Hospital Course Summary of Care Provided Minutes Spent on Discharge: 35 Hospital Course: Patient is a 73-year-old lady admitted with altered mental status 1. Acute metabolic encephalopathy ? Secondary to hyponatremia as a result of SIADH. Patient was managed with IV fluid as well as discontinuation of suspected medications 2. Seizure disorder ? Patient is on valproic acid did continue 3. Hypertension - Blood pressure controlled, home medications continued with dose adjustment as needed 4. Dyslipidemia -Patient is on statin therapy, continued at home dose 5. Diabetes mellitus type II -patient's oral hypoglycemics held. Placed on long acting insulin, Accu-Cheks a.c. and at bedtime and covered with sliding scale insulin 7. Bipolar disorder ? Patient is stable on Lamictal continue 8. Overactive bladder ? Patient is on Myrbetriq this was discontinued given her presentation 9. DVT prophylaxis ? SC Lovenox Physical Exam Narrative GENERAL: cooperative HEENT: Atraumatic; normocephalic EYES; Anicteric, Normal Conjunctiva NECK; supple, normal thyroid, RESPIRATORY: Diminished to auscultation CARDIOVASCULAR: Regular S1 S2, GI: soft, normoactive bowel sounds, : No Renal angle tenderness; EXTREMITIES: No edema, no clubbing, MUSCULOSKELETAL: no muscle wasting NEURO: Awake; no lateralizing signs. SKIN: No Rash PSYCH; Flat affect Weight / BMI Weight Weight: 95.9 kg Body Mass Index (BMI) 41.3 ABG / Lab / Microbiology Data 10/22/23 07:00 10/22/23 07:00 Laboratory: Laboratory Results - last 24 hr 10/20/23 08:10: Diff Path Review Reviewed 10/21/23 11:42: POC Glucose 123 H 10/21/23 16:43: POC Glucose 112 H 10/21/23 21:15: POC Glucose 110 H 10/22/23 06:35: POC Glucose 101 10/22/23 07:00: WBC 10.2, RBC 4.07 L, Hgb 12.4, Hct 38.9, MCV 95.6, MCH 30.5, MCHC 31.9 L, RDW Std Deviation 51.3 H, RDW Coeff of Tami 14.7 H, Plt Count 454 H, MPV 8.3, Immature Gran % (Auto) 3.900 H, Neut % (Auto) 70.8 H, Lymph % (Auto) 17.3 L, [place] % (Auto) 6.6, Eos % (Auto) 0.8, Baso % (Auto) 0.6, Absolute Neuts (auto) 7.2, Absolute Lymphs (auto) 1.76, Nucleated RBC % 0, Sodium 133 L, Potassium 4.0, Chloride 98, Carbon Dioxide 29.0, Anion Gap 6, BUN 8, Creatinine 0.83, Estim Creat Clear Calc 44.65, Est GFR (MDRD) Af Amer 87, Est GFR (MDRD) Non-Af 72, BUN/Creatinine Ratio 9.6 L, Glucose 98, Calcium 9.4 Microbiology: Microbiology 10/16/23 20:34 Mucosa - Nose SARS-CoV-2, Influenza & RSV (PCR) - Final D/C Instructions Discharge Diet: Low fat / Low cholesterol and 1800 Calorie Control Diet Discharge Activity: Return to Normal Activity Call your doctor if you observe: Fever of 101 or Higher, Shortness of breath, Fainting spells and Chest pain Meaningful Use Info Meaningful Use Diagnoses (Choose all that apply): None applicable Discharge Plan Admission Admit Date/Time: 10/16/23 22:59 Attending Provider: Marlon Kirby Primary Care Provider: Esperanza Baird Consulting Providers: Chadd Zambrano; Jourdan Stovall; Jazzmine Parikh; Angelito Shah Discharge Orders/Prescriptions Prescriptions: New melatonin 3 mg Tablet 3 mg PO QHS PRN PRN (Reason: Insomnia) Qty: 0 0RF insulin lispro [Humalog KwikPen Insulin] 100 unit/mL Insulin Pen See Protocol subcut ACHS Qty: 0 0RF Protocol: 4. Sliding Scale Insulin High-Med Dosing Condition: 150-199 mg/dl = 2 units Condition: 200-259 mg/dl = 4 units Condition: 260-324 mg/dl = 6 units Condition: 325-374 mg/dl = 8 units Condition: 375-409 mg/dl = 10 units Condition: 410-449 mg/dl = 11 units Condition: Greater than 449 call physician Protocol Text: - Use for Total Daily Dose of Insulin 56-80 units - Patient who are insulin resistant or septic HIGH MEDIUM DOSING ALGORITHM Continued acetaminophen [Tylenol Arthritis Pain] 650 mg tablet extended release 650 mg PO Q12H PRN (Reason: pain) buprenorphine 100 mg/0.5 mL solution, extended rel syringe 100 mg subcut QMONTH ascorbic acid (vitamin C) 500 mg capsule 500 mg PO DAILY (DME) Incentive Spirometer See Rx Instructions .Route .MEDSUPPLY Qty: 1 0RF Rx Instructions: As directed ferrous sulfate 324 mg (65 mg iron) tablet,delayed release (DR/EC) 324 mg PO Q OTHER DAY Qty: 90 2RF divalproex 500 mg tablet extended release 24 hr 500 mg PO BID Qty: 60 7RF metformin 500 mg tablet extended release 24 hr 500 mg PO BID Qty: 60 3RF Prolia 60 mg/mL syringe 60 mg subcut [id number] Qty: 1 2RF lactulose 10 gram/15 mL solution 10 g PO BID Qty: 946 7RF fesoterodine 4 mg tablet extended release 24 hr 4 mg PO DAILY lamotrigine 200 mg tablet 200 mg PO QHS Rx Instructions: TAKE ONE TABLET BY MOUTH AT BEDTIME Vraylar 3 mg capsule 3 mg PO Q24H Rx Instructions: TAKE ONE CAPSULE BY MOUTH EVERY DAY hydralazine 50 mg tablet 50 mg PO TID Qty: 90 1RF (DME) Handicap Placard See Rx Instructions .ROUTE .MEDSUPPLY Qty: 1 0RF Rx Instructions: As directed, length of time 5 years (DME) POCKET CHAMBER Spacer See Rx Instructions .ROUTE .MEDSUPPLY Qty: 1 0RF Rx Instructions: As directed metoprolol succinate 50 mg tablet extended release 24 hr 50 mg PO DAILY Qty: 90 3RF Rx Instructions: Take with 25 mg for a total daily dose of 75 mg metoprolol succinate 25 mg tablet extended release 24 hr 25 mg PO QHS Qty: 90 2RF rosuvastatin 40 mg tablet 40 mg PO DAILY Qty: 90 2RF (DME) FreeStyle Lite Strips Strip See Rx Instructions .MEDSUPPLY Qty: 100 3RF Rx Instructions: check blood glucose daily for type 2 DM (DME) blood-glucose meter [FreeStyle Lite Meter] Kit See Rx Instructions .MEDSUPPLY Qty: 1 0RF Rx Instructions: As directed, check blood glucose daily for type 2 DM (DME) lancets [FreeStyle Lancets] 28 gauge misc See Rx Instructions .MEDSUPPLY Qty: 200 3RF Rx Instructions: check blood glucose daily for type 2 DM calcium carbonate 600 mg calcium (1,500 mg) tablet 600 mg PO BID Qty: 180 3RF lisinopril 40 mg tablet 40 mg PO QAM Qty: 90 2RF nicotine 21 mg/24 hr patch 24 hour 1 patch transdermal Q24H Qty: 28 2RF Hold Instructions: Pt has been DC'd Discontinued Myrbetriq 50 mg tablet extended release 24 hr 50 mg PO Q24H meloxicam 15 mg tablet 15 mg PO DAILY Referrals / Follow Up: Esperanza Baird MD [Primary Care Provider] - Within 2 Weeks Disposition Disposition (needs filled in before D/C Order can be placed): Detention Facility Charges/Coding Visit Charges Inpatient E&M: 64388 Disch Hosp >30min
[2023-10-22 11:30] LABS: Bedside Glucose 108 mg/dL (74-106)
--- NOTE | 2023-10-22 11:30 | PHA.DC_ITS ---
Pharmacy [place] Med Reconciliation Pharmacy Service has performed discharge medication reconciliation for this patient upon transfer to [facility]. The patient's discharge medication list was reviewed for discrepancies and discrepancies were resolved. Medications at Discharge Home Medications acetaminophen 650 mg tablet,extended release (Tylenol Arthritis Pain) 650 mg PO Q12H PRN pain 01/23/21 Handicap Placard #1 ea 02/07/21 inhalational spacing device (POCKET CHAMBER spacer) #1 ea 06/26/21 buprenorphine 100 mg/0.5 mL solution,exten.rel.subcutaneous syringe 100 mg subcut QMONTH WITHDRAWAL SYMPTOM CONTROL 08/07/21 ascorbic acid (vitamin C) 500 mg capsule 500 mg PO DAILY vitamin 07/08/22 Incentive Spirometer #1 ea 08/05/22 ferrous sulfate 324 mg (65 mg iron) tablet,delayed release 324 mg PO Q OTHER DAY supplement #90 tabs 11/17/22 metoprolol succinate 50 mg tablet,extended release 24 hr 50 mg PO DAILY blood pressure #90 tabs 01/05/23 metoprolol succinate 25 mg tablet,extended release 24 hr 25 mg PO QHS blood perssure #90 tabs 05/08/23 rosuvastatin 40 mg tablet 40 mg PO DAILY cholesterol #90 tabs 05/08/23 blood sugar diagnostic (FreeStyle Lite Strips) #100 ea 07/15/23 blood-glucose meter (FreeStyle Lite Meter kit) #1 ea 07/15/23 lancets 28 gauge (FreeStyle Lancets) #200 ea 07/15/23 divalproex 500 mg tablet,extended release 24 hr 500 mg PO BID seizure #60 tabs 07/21/23 calcium carbonate 600 mg calcium (1,500 mg) tablet 600 mg PO BID supplement #180 tabs 08/06/23 lisinopril 40 mg tablet 40 mg PO QAM blood pressure #90 tabs 08/28/23 nicotine 21 mg/24 hr daily transdermal patch 1 patch transdermal Q24H to stop smoking #28 ea 09/16/23 cariprazine 3 mg capsule (Vraylar) 3 mg PO Q24H depression 09/19/23 fesoterodine 4 mg tablet,extended release 24 hr 4 mg PO DAILY bladder spasms 09/19/23 lamotrigine 200 mg tablet 200 mg PO QHS depression 09/19/23 hydralazine 50 mg tablet 50 mg PO TID blood pressure #90 tabs 09/21/23 denosumab 60 mg/mL subcutaneous syringe (Prolia) 60 mg subcut [id number] bone health #1 mL 09/25/23 metformin 500 mg tablet,extended release 24 hr 500 mg PO BID diabetes #60 tabs 09/25/23 lactulose 10 gram/15 mL oral solution 10 g (15 mL) PO BID laxative #946 mL 10/14/23 insulin lispro 100 unit/mL subcutaneous pen (Humalog KwikPen (U-100) Insulin) See Protocol subcut ACHS #0 mL 10/22/23 melatonin 3 mg tablet 3 mg PO QHS PRN PRN Insomnia #0 tabs 10/22/23
--- NOTE | 2023-10-22 11:43 | NURSING ---
report given to Nancy at [facility]. patient will be picked up At 1300.
--- NOTE | 2023-10-22 11:46 | CASEMGMT ---
Addendum entered by Ambreen Bansal 10/22/23 12:25: CAROLYNE sent Covid test to [facility] via [employer]. Ambreen NASH Original Note: Patient was approved. CAROLYNE sent orders to [facility] via [employer]. CAROLYNE called [facility] and arranged for patient to get picked up at 1p via wheelchair. CAROLYNE completed a 7000 in [facility]. CAROLYNE called patient's daughter and notified her of steel pickler. CAROLYNE also notified RN, secretary receptionist, [facility], and patient. Plan: d/c to [facility] under skilled level of care on a convalescent stay. Physicians will transport patient via wheelchair van. Ambreen NASH
== END 2023-10-22 14:35 | disposition skilled nursing facility (03) | DRG 643 ==
LOC: ED 23:07 → PCU 23:14
PROVIDERS: Family Medicine; Internal Medicine Nephrology; Student in an Organized Health Care Education/Training Program; Admitting Provider Hospitalist; Emergency Provider Emergency Medicine; PCP Internal Medicine; Visit Provider Internal Medicine
DX: E22.2 Syndrome of inappropriate secretion of antidiuretic hormone (principal); G93.41 Metabolic encephalopathy; E72.20 Disorder of urea cycle metabolism, unspecified; Z68.41 Body mass index [BMI] 40.0-44.9, adult; E11.9 Type 2 diabetes mellitus without complications; F31.9 Bipolar disorder, unspecified; G40.909 Epilepsy, unspecified, not intractable, without status epilepticus; J44.9 Chronic obstructive pulmonary disease, unspecified; E66.01 Morbid (severe) obesity due to excess calories; F44.81 Dissociative identity disorder; I10 Essential (primary) hypertension; E78.00 Pure hypercholesterolemia, unspecified; M17.0 Bilateral primary osteoarthritis of knee; E86.1 Hypovolemia; R53.81 Other malaise; N32.81 Overactive bladder; R31.9 Hematuria, unspecified; Z79.84 Long term (current) use of oral hypoglycemic drugs; Z79.1 Long term (current) use of non-steroidal anti-inflammatories (NSAID); Z79.899 Other long term (current) drug therapy; Z87.891 Personal history of nicotine dependence; Z87.898 Personal history of other specified conditions
CPT/HCPCS: 36415; 70450; 71045; 80048; 80053; 80069; 80164; 80320; 81001; 82140; 82962; 83690; 83930; 83935; 84133; 84300; 84484; 85025; 85027; 87426; 87631; 93005; 94668; 97110; 97116; 97162; 97166; 97530; 97535; 97802; 99285; 99406; J7030; A4216; G0480

== ENCOUNTER → 2023-11-25 | Outpatient (CLI) | payer MEDICARE, MEDICAID, SELFPAY ==
[2023-11-25 12:25] LABS: Mucous, Urine 0 SEEN /hpf (<or=2+)
[2023-11-25 12:52] LABS: Absolute Lymphocyte Count 1.41 X10^3/uL (0.83-4.51); Absolute Neutrophil Count 8.6 X10^3/uL (2.0-7.7); Basophil# 0.03 X10^3/uL; Basophil% 0.3 % (0-1); Eosinophil# 0.04 X10^3/uL; Eosinophils% 0.4 % (0-5); Hematocrit 38.6 % (37-47); Hemoglobin 12.6 g/dL (12.0-15.0); Lymphocyte # 1.41 X10^3/ul (0.83-4.51); Mean Corp Hgb Conc 32.6 g/dL (32-36); Mean Corpuscular Volume 95.1 fL (81-99); Monocyte# 0.59 X10^3/uL; Monocyte% 5.4 % (0-10); NRBC Flagged by Analyzer 0 % (0-5); Neutrophil # 8.62 X10^3/uL (2.7-7.7); Neutrophil % 79.4 % (47-70); Platelet Count 446 K/mm3 (150-450); RBC Distribution Width CV 14.1 % (11.6-14.6); RBC Distribution Width SD 49.1 fl (35.1-43.9); Red Blood Count 4.06 M/mm3 (4.2-5.4); White Blood Count 10.9 K/mm3 (4.4-11.0)
[2023-11-25 13:25] LABS: Anion Gap 5 (5-15); BUN 8 mg/dL (7-18); BUN/Creat Ratio 9.3 RATIO (10-20); Calcium,Total 9.2 mg/dL (8.5-10.1); Chloride 96 mmol/L (98-107); Creatinine, Serum 0.86 mg/dL (0.55-1.02); EST Glomerular Filtration Rate 69 mL/min (>60); Est Glom Filt Rate - Afr Amer 84 mL/min (>60); Glucose 114 mg/dL (74-106); Potassium 4.4 mmol/L (3.5-5.1); Sodium Level 131 mmol/L (136-145)
[2023-11-25 15:03] LABS: Color, Urine Yellow (Yellow); Glucose, Dipstick Normal (Normal); Ketone-Dipstick 5 mg/dl (Negative); Leukocyte Esterase-Dipstick 25 /ul (Negative); Nitrite-Dipstick Negative (Negative); Occult Blood-Urine 25 /ul (Negative); Protein-Dipstick 30 mg/dl (Negative); Urine Bilirubin Dipstick Negative (Negative); Urine Clarity Clear (Clear); Urine Urobilinogen Normal (Normal); Urine pH 6.5 (5.0 - 8.0)
[2023-11-25 15:30] LABS: Bacteria RARE /hpf (None Seen); Red Blood Cells-Urine 0-5 SEEN /hpf (0-5); Squamous Epithelial Cells - UA 0-5 SEEN /hpf (5-10); White Blood Cells 0-5 SEEN /hpf (0-5)
== END | disposition home or self-care (01) ==
LOC: BIMLAB 11:54
PROVIDERS: PCP Internal Medicine; Referring Provider Internal Medicine; Visit Provider Internal Medicine
DX: G93.41 Metabolic encephalopathy (principal); I10 Essential (primary) hypertension; N39.0 Urinary tract infection, site not specified
CPT/HCPCS: 36415; 80048; 81001; 82140; 85025

== ENCOUNTER → 2023-12-11 | Outpatient (CLI) | payer MEDICARE, MEDICAID, SELFPAY ==
--- NOTE | 2023-12-11 11:00 | RAD_ITS ---
STUDY: X-RAY - PELVIS AND LEFT HIP REASON FOR EXAM: Female, 73 years old. Pain. TECHNIQUE: views of the pelvis and hip. COMPARISON: None. FINDINGS: Normal bowel gas pattern. Moderate amount of feces in the colon. Osteopenia. Moderate lower lumbosacral spondylosis. Normal sacroiliac joints. Moderate arthrosis of the symphysis pubis. Mild arthrosis of both hips. RAD/HIP, UNI W/ Pelvis 2-3 Views IMPRESSION: Osteopenia with osteoarthritic changes. No acute abnormality or erosive changes. Electronically Signed: Shay Guy MD at 10:19 EST ,
--- NOTE | 2023-12-11 11:00 | RAD_ITS ---
STUDY: X-RAY - LEFT SCAPULA REASON FOR EXAM: Female, 73 years old. Pain. TECHNIQUE: 2 views of the left scapula were obtained. COMPARISON: None. FINDINGS: Normal scapula, including the osseous glenoid rim, acromion, scapular neck, spine, coracoid process, and visualized body. There is severe glenohumeral arthrosis. There is mild acromioclavicular arthrosis.. Normal visualized humeral head. Normal visualized pulmonary apex. There is no demonstrated scapular fracture. RAD/Scapula IMPRESSION: Normal scapula. Severe glenohumeral arthrosis and mild acromioclavicular arthrosis. Electronically Signed: Ezio Denney MD at 12:22 EST ,
--- NOTE | 2023-12-11 11:00 | RAD_ITS ---
STUDY: X-RAY - LEFT SHOULDER REASON FOR EXAM: Female, 73 years old. Pain. TECHNIQUE: 4 views of the left shoulder. COMPARISON: None. FINDINGS: There is severe glenohumeral arthrosis with severe joint space narrowing, marginal osteophyte formation, and subchondral sclerosis. There is mild acromioclavicular arthrosis. Normal acromion. Intact humeral head and visualized proximal humerus. There is calcification superior to the greater tuberosity, raising the possibility of calcific tendinitis of the rotator cuff. The soft tissue structures are unremarkable. There is no demonstrated fracture. Normal visualized pulmonary apex. RAD/Shoulder min 2 Views IMPRESSION: Severe glenohumeral arthrosis. Mild acromioclavicular arthrosis. Possible calcific tendinitis of the rotator cuff. No demonstrated fracture. Electronically Signed: Ezio Denney MD at 12:21 EST ,
[2023-12-11 11:36] LABS: Anion Gap 5 (5-15); BUN 11 mg/dL (7-18); BUN/Creat Ratio 13.9 RATIO (10-20); Calcium,Total 9.6 mg/dL (8.5-10.1); Chloride 105 mmol/L (98-107); Creatinine, Serum 0.79 mg/dL (0.55-1.02); EST Glomerular Filtration Rate 76 mL/min (>60); Est Glom Filt Rate - Afr Amer 92 mL/min (>60); Glucose 102 mg/dL (74-106); Potassium 4.5 mmol/L (3.5-5.1); Sodium Level 138 mmol/L (136-145)
== END | disposition home or self-care (01) ==
PROVIDERS: PCP Internal Medicine; Referring Provider Internal Medicine; Visit Provider Internal Medicine
DX: E87.1 Hypo-osmolality and hyponatremia (principal); M25.512 Pain in left shoulder; M89.8X1 Other specified disorders of bone, shoulder; M25.552 Pain in left hip
CPT/HCPCS: 36415; 73010; 73030; 73502; 80048

== ENCOUNTER 2023-12-17 09:34 | Outpatient (RCR) | payer MEDICARE, MEDICAID, SELFPAY ==
[2023-12-17 09:43] VITALS: BP 186/96; PULSE 99; RESP 18; TEMP 36.6; BMI 40.2
--- NOTE | 2023-12-17 09:53 | WC ---
ATTEMPTED TO REVIEW CURRENT HOME MED LIST W/ PT. SHE IS UNSURE EXACTLY WHAT SHE'S TAKING AND FORGOT TO BRING A LIST. WILL BRING TO NEXT VISIT. OR STATES HER JOE MAY BRING IN LATER DURING APPT TODAY.
[2023-12-17 10:25] VITALS: BP 188/102; BMI 40.2
--- NOTE | 2023-12-17 11:44 | PCM.WC.HP ---
History of Present Illness Date of Service: 12/17/23 Chief Complaint: Right Groin Ulcer History of Wound: Ms. Valentin is well known to me. Concern from home health about an open area noted in the abdominal area. Patient believes it started 2 days ago. No known precipitating factor. She reports bloody drainage from the area. No significant pain, chills, fever or otherwise feeling of unwell. [facility] Medical History (Updated 12/17/23 @ 14:[address] Esperanza Mckeon MD) Abdominal pain Actinic keratoses Anemia Arthritis Atypical chest pain Back problem Basal cell carcinoma of right forehead Basal cell carcinoma of right medial cheek Basal cell carcinoma of upper lip Benign neoplasm of skin of cheek Bilateral lower extremity edema Bladder disease Cancer COPD (chronic obstructive pulmonary disease) Cutaneous candidiasis DDD (degenerative disc disease) Debility Dermatitis Diabetes Dietary restriction Dissociative identity disorder Dizziness Drug abuse Flu vaccine need Frequent falls Gastric reflux Hemangioma of face Hepatitis High cholesterol History of edema History of stress test History of UTI Hypertension Hyponatremia Hyponatremia Injury of back Injury of head and neck Intertrigo Intradermal nevus Kidney disease Kidney failure Left ankle pain Left wrist fracture Loose, teeth Low iron Manic episode Morbid obesity Multiple personalities Neoplasm of skin of eyelid Neoplasm of skin of nose Neurofibroma of neck Obesity (BMI 30-39.9) Osteoarthritis Osteoporosis Panic attacks Prediabetes Primary osteoarthritis, left shoulder Rib pain on right side Seizures Shortness of breath on exertion Skin ulcer of abdomen Skin ulcer of groin with fat layer exposed Substance abuse Tumors Type 2 diabetes mellitus Urinary incontinence Venous insufficiency of both lower extremities Walker as ambulation aid Wears glasses Weight gain Home Medications acetaminophen 650 mg tablet,extended release (Tylenol Arthritis Pain) 650 mg PO Q12H PRN pain 01/23/21 [History Last Taken Unknown] Handicap Placard #1 ea 02/07/21 [Rx Last Taken Unknown] inhalational spacing device (POCKET CHAMBER spacer) #1 ea 06/26/21 [Rx Last Taken Unknown] ascorbic acid (vitamin C) 500 mg capsule 500 mg PO DAILY vitamin 07/08/22 [History Last Taken Unknown] Incentive Spirometer #1 ea 08/05/22 [Rx Last Taken Unknown] blood sugar diagnostic (FreeStyle Lite Strips) #100 ea 07/15/23 [Rx Last Taken Unknown] blood-glucose meter (FreeStyle Lite Meter kit) #1 ea 07/15/23 [Rx Last Taken Unknown] lancets 28 gauge (FreeStyle Lancets) #200 ea 07/15/23 [Rx Last Taken Unknown] divalproex 500 mg tablet,extended release 24 hr 500 mg PO BID seizure #60 tabs 07/21/23 [Rx Last Taken Unknown] lamotrigine 200 mg tablet 200 mg PO QHS depression 09/19/23 [History Last Taken Unknown] denosumab 60 mg/mL subcutaneous syringe (Prolia) 60 mg subcut [id number] bone health #1 mL 09/25/23 [Rx Last Taken Unknown] metformin 500 mg tablet,extended release 24 hr 500 mg PO BID diabetes #60 tabs 09/25/23 [Rx Last Taken Unknown] lactulose 10 gram/15 mL oral solution 10 g (15 mL) PO BID laxative #946 mL 10/14/23 [Rx Last Taken Unknown] melatonin 3 mg tablet 3 mg PO QHS PRN PRN Insomnia #0 tabs 10/22/23 [Rx Last Taken Unknown] hydralazine 50 mg tablet 50 mg PO TID blood pressure #90 tabs 11/16/23 [Rx Last Taken Unknown] cariprazine 1.5 mg capsule 1.5 mg PO Q24H depression #90 caps 11/27/23 [Rx Last Taken Unknown] ferrous sulfate 324 mg (65 mg iron) tablet,delayed release 324 mg PO Q OTHER DAY supplement #90 tabs 11/27/23 [Rx Last Taken Unknown] fesoterodine 4 mg tablet,extended release 24 hr 4 mg PO DAILY bladder spasms #30 tabs 11/27/23 [Rx Last Taken Unknown] rosuvastatin 40 mg tablet 40 mg PO DAILY cholesterol #90 tabs 11/27/23 [Rx Last Taken Unknown] metoprolol succinate 25 mg tablet,extended release 24 hr 25 mg PO QHS blood perssure #90 tabs 12/03/23 [Rx Last Taken Unknown] metoprolol succinate 50 mg tablet,extended release 24 hr 50 mg PO DAILY blood pressure #90 tabs 12/03/23 [Rx Last Taken Unknown] sodium chloride 1,000 mg soluble tablet 1,000 mg PO DAILY PRN electrolyte replenishment #60 tabs 12/03/23 [Rx Last Taken Unknown] john (Ultra-Light Rollator misc) #1 ea 12/10/23 [Rx Last Taken Unknown] calcium carbonate 600 mg calcium (1,500 mg) tablet 600 mg PO BID PRN supplement 12/11/23 [History Last Taken Unknown] guaifenesin 600 mg tablet, extended release 12 hr (Mucinex) See Rx Instructions PO BID #30 tabs 12/11/23 [Rx Last Taken Unknown] Allergy/AdvReac Type Severity Reaction Status Date / Time iloperidone [From Fanapt] Allergy Severe Other Verified 12/17/23 09:51 paliperidone [From Invega] Allergy Severe increased Verified 12/17/23 09:51 psychiatric symptoms lurasidone [From Latuda] Allergy Other Verified 12/17/23 09:51 trazodone AdvReac Severe Other Verified 12/17/23 09:51 theophylline AdvReac Other Verified 12/17/23 09:51 Family History Brother Colon cancer Lung cancer Aunt Obesity Sister Obesity Mother Rheumatoid arthritis Father Alzheimer disease Brother Alzheimer disease Surgical History H/O hernia repair H/O: hysterectomy History of 3 sections History of basal cell carcinoma excision History of History of carpal tunnel surgery History of cholecystectomy History of colonoscopy History of endoscopy History of excision of lesion History of hernia repair Social History Smoking Status: Former smoker Tobacco: How many years used: 20 how long ago did patient quit smoking: second hand exposure: No alcohol intake: never substance use type: former substance user Date of last use: Cocaine what type of physical activity do you participate in: none vince/lutheran: Yazdanism seatbelt use: always ROS Constitutional Constitutional: Denies body ache(s), change in weight, fatigue, frequent falls, headache(s), increased appetite or lethargy Eyes Eyes: Denies blindness, blind spots, bloody eye, blurry vision, diplopia, discharge from eye(s), exophthalmos or floaters ENT HEENT: Denies change in voice, dysphagia, ear pain, epistaxis, foreign body in nose or halitosis Cardiovascular Cardiovascular: Denies abdominal bloating, abdominal edema, abdominal pain, bluish discoloration of hand/feet, chest pain with activity, cold extremities or cyanosis Respiratory/Chest Respiratory/Chest: Denies change in mental status, chest congestion, difficulty clearing secretions, excessive phlegm production, hemoptysis or hoarseness Gastrointestinal Gastrointestinal: Denies bloating, change in bowel habits, change in stool character, chewing difficulty, constipation, cramping or dry heaves Genitourinary Genitourinary: Denies abdominal discomfort, contractions, flank pain, post void dribbling or urinary hesitancy Musculoskeletal Musculoskeletal: Denies atrophy, deformity, loss of height, muscle weakness or tingling Integumentary Integumentary: Reports lesions and skin ulcer; Denies bleeding lesions, dry skin, erythema, jaundice, non-healing lesions or skin swelling Neurologic Neurologic: Denies abnormal movements, behavior changes, burning sensations, convulsions, disequilibrium, headache(s) or lack of coordination Psychiatric Psychiatric: Denies auditory hallucinations, behavioral changes, change in appetite, confusion, hopelessness, irritability, panic attacks or tactile hallucinations Endocrine Endocrinology: Denies deepening of the voice, excessive sweating, fatigue, flushing, heat intolerance or increase in ring/shoe/hat size Allergic/Immunologic Allergic/Immunologic: Denies lip swelling, rhinitis, throat swelling, tongue swelling, urticaria or eczemia Vital Signs Vital Signs Vital Signs: 12/17/23 09:43 12/17/23 10:25 Temperature 98 F Temperature Source Temporal Pulse Rate 99 Respiratory Rate 18 Blood Pressure 186/96 H 188/102 H Blood Pressure Mean 126 130 Blood Pressure Source Monitor Manual Blood Pressure Position Sitting Supine Blood Pressure Location Right Forearm Right Arm Oxygen Delivery Method Room Air Weight Weight: 206 lb Body Mass Index (BMI) 40.2 Physical Exam Const alert, oriented x3 and no apparent distress General Appearance: cooperative, comfortable and well kempt Orientation / Consciousness: awake and oriented to person HEENT normocephalic and head/scalp atraumatic Eyes General Eye: normal appearance of both eyes Neck full ROM General: normal visual inspection Resp normal respiratory effort and normal air movement Cardio regular rate, regular rhythm, S1 normal heart sound and S2 normal heart sound GI soft to palpation and non-tender Extremity General Extremity: edema Neuro oriented x3, CN's II-XII intact bilaterally, moves all extremities and no focal motor deficits Psych mental status grossly normal, thought process normal, cooperative and affect normal Debridement Note Debridement Note Wound debrided: Right Groin Type of Debridement: Excisional debridement Anesthesia Used: 4% Lidocaine Solution Depth: Down to and including healthy tissue and in the subcutaneous layer Percentage of wound debrided: 100 Instrument Used: 3mm curette Tissue Removed: Slough and devitalized tissue Severity: Fat Layer Exposed Amount of bleeding with debridement: Mild Bleeding Controlled with: Pressure Patient tolerated procedure: Patient tolerated procedure well Post-Debridement Measurements and Additional Note: Post-Debridement Measurements/Treatment - Nurse 1 - General Ulcer Assessment Start: 12/17/23 09:43 Freq: Status: Active Protocol: .LOWEXJerrell Activity Type Activity Date Activity User E-sign Co-sign Detail Recorded Client Recorded Date Recorded By Document 12/17/23 09:43 [facility] Desktop 12/17/23 09:48 [facility] Document 12/17/23 10:25 [facility] [id number] 12/17/23 11:21 [facility] 12/17/23 12/17/23 09:43 10:25 - Today's Visit Information Type of service Initial Visit Arrival Mode Ambulatory, Walker Transfer Assistance None Patient Identification Verified (Name & Yes ) Patient Requires Transmission-Based No Precautions Height and Weight Height 5 ft Weight 206 lb Weight in Pounds 206.0 lbs Weight Measurement Method Stated by Patient Body Mass Index (BMI) 40.2 40.2 BMI Classification Obese Obese BSA - Yohana 1.89 Vital Signs Temperature (97.8 F-99.1 F) 98 F Temperature Source Temporal Pulse Rate (60-100) 99 Pulse Location Monitor Respiratory Rate (12-18) 18 Respiratory rate source Observation Oxygen Delivery Method Room Air Blood Pressure (90/60-120/80) 186/96 H 188/102 H Blood Pressure Mean 126 130 Source Monitor Manual Position Sitting Supine Blood Pressure Location Right Forearm Right Arm Comment dr mckeon updated on initial bp, requested manual; completed. updated her History Since Last Visit- (Skip if this is Patient's initial visit) Left Footwear Regular Shoe Right Footwear Regular Shoe Pain Scale: 0-10 Numeric Is Patient Pain Free? Yes Yes Communication Assessment Preferred language Serbian Movie Shot Cameraman Required No Able to Read Yes Able to Write Yes Communication Tools None Right Hearing Abillity Normal Left Hearing Abillity Normal Visual Assistive Devices Glasses - Nurse 1 - General Ulcer Measurement Start: 12/17/23 09:43 Freq: Status: Active Protocol: Activity Type Activity Date Activity User E-sign Co-sign Detail Recorded Client Recorded Date Recorded By Document 12/17/23 09:43 [facility] Desktop 12/17/23 09:48 [facility] 12/17/23 09:43 Wound Center Nurse 1 #1- R PUBIC AREA -Combined with other wound No -Current Size (cm) - Length 0.2 -Current Size (cm) - Width 0.4 -Current Size (cm) - Depth 0.2 -Total Square Cm 0.08 -Date of Last Picture (Recall this 12/17/23 field) -Photo Taken Yes -Epithelialization None Present -Tunneling No -Undermining/Tunneling No -Circular Undermining No -Exudate Amt Medium -Exudate Type Serosanguineous -Wound Margin Distinct, Outline Attached -Granulation Amt None Present (0 %) -Slough/Fibrin Yes -Necrosis Amt Large (67-100%) -Necrotic Tissue Type Adherent Slough -Texture (Unique-wound Skin Appearance) Assessed, Scarring -Moisture (Unique-wound Skin Appearance) Assessed -Color (Unique-wound Skin Appearance) Assessed, Erythema -Temperature (Unique-wound Skin No Abnormality Appearance) (Pt Warm) -Tenderness on Palpation (Unique-wound No Skin Appearance) -Ulcer Cleansing Soap and Water -Foul Odor after Cleansing No -Anesthetic Used 5% Lidocaine Gel WC - Nurse 2 - General Ulcer CM Notes Start: 12/17/23 09:43 Freq: Status: Active Protocol: Activity Type Activity Date Activity User E-sign Co-sign Detail Recorded Client Recorded Date Recorded By Document 12/17/23 10:05 Desktop 12/17/23 10:09 12/17/23 10:05 Wound Center Nurse 2 -Time 10:06 -Correct Patient Yes -Correct Side, Site, Position Yes -Correct Procedure Yes -Procedure Performed Yes -Type of Procedure Debridement -Clinical Debridement Subcutaneous -Tissue Removed Subcutaneous -Tunneling No -Undermining/Tunneling No -Circular Undermining No -Wound/Ulcer Outcome Not Healed -Ulcer Cleansing Rinsed/ Irrigated with Saline -Foul Odor after Cleansing No -Bioengineered Tissue No -Bleeding Controlled with Pressure -Treatment Response Procedure Tolerated Well -Debridement - Subq, 1st 20sq cm Yes Pain Scale: 0-10 Numeric Is Patient Pain Free? Yes Charges/Coding Visit Charges Office Visits / Consults: 71180 OV L3 Est 20min Procedures Integumentary 111xxx-113xx: [id number] Linda subq tissue 20 sq cm/< Assessment/Plan Assessment/Plan (1) Skin ulcer of groin with fat layer exposed: CODE(S): L98.492 - Non-pressure chronic ulcer of skin of other sites with fat layer exposed (2) Skin ulcer of abdomen: CODE(S): L98.499 - Non-pressure chronic ulcer of skin of other sites with unspecified severity PLAN: Plan Debridement done as documented above, procedure was well-tolerated. No known precipitating factor. Possibly started out as an abscess but patient denied any prior pain. Bloody drainage since it was discovered by home health. No cultures taken at this time. Aquacel extra daily, cover with foam/border dressing. Change daily to twice daily depending on drainage. Adequate protein intake. Optimal diabetes control, most recent A1c was at 5.4. Follow-up in a week or sooner if needed. This note was generated with [employer] dictation software. It may contain incorrect words, spelling, and punctuation that were not noted in checking the note before signing.
== END 2023-12-17 23:59 | disposition home or self-care (01) ==
LOC: WC 09:34
PROVIDERS: PCP Internal Medicine; Referring Provider Internal Medicine; Visit Provider Internal Medicine
DX: E11.622 Type 2 diabetes mellitus with other skin ulcer (principal); L98.492 Non-pressure chronic ulcer of skin of other sites with fat layer exposed; J44.9 Chronic obstructive pulmonary disease, unspecified; Z79.84 Long term (current) use of oral hypoglycemic drugs; Z87.891 Personal history of nicotine dependence
CPT/HCPCS: 11042; 99203; 99213; G0463

== ENCOUNTER 2023-12-24 08:45 | Outpatient (RCR) | payer MEDICARE, MEDICAID, SELFPAY ==
[2023-12-18 00:42] VITALS: BP 188/102; PULSE 99; RESP 18; TEMP 36.6; BMI 40.2
[2023-12-24 08:56] VITALS: BP 171/79; PULSE 83; RESP 18; TEMP 36.1; BMI 40.2
--- NOTE | 2023-12-24 09:11 | PCM.WC.PN ---
History of Present Illness Date of Service: 12/24/23 Chief Complaint: Right Groin Ulcer History of Wound: Ms. Valentin is well known to me. Concern from home health about an open area noted in the abdominal area. Patient believes it started 2 days ago. No known precipitating factor. She reports bloody drainage from the area. No significant pain, chills, fever or otherwise feeling of unwell. Progress of Wound: No new concerns at this time. Minimal area left. Objective Data Objective Data Vital Signs: Vital Signs Temp Pulse Resp BP 96.9 F L 83 18 171/79 H 12/24/23 08:56 12/24/23 08:56 12/24/23 08:56 12/24/23 08:56 Weight: 206 lb Body Mass Index (BMI) 40.2 Charges/Coding Procedures Integumentary 111xxx-113xx: [id number] Debride infected skin (Selective Debridement done. ) Physical Exam Const alert, oriented x3 and no apparent distress General Appearance: cooperative, comfortable and well kempt Orientation / Consciousness: awake and oriented to person HEENT normocephalic and head/scalp atraumatic Eyes General Eye: normal appearance of both eyes Neck full ROM General: normal visual inspection Resp normal respiratory effort Extremity General Extremity: edema Neuro oriented x3, CN's II-XII intact bilaterally, moves all extremities and no focal motor deficits Psych mental status grossly normal, thought process normal, cooperative and affect normal Debridement Note Debridement Note Wound debrided: Right Groin Type of Debridement: Selective debridement Anesthesia Used: 5% Lidocaine Gel Depth: Down to and including healthy tissue Percentage of wound debrided: 100 Instrument Used: 3mm curette Tissue Removed: Devitalized tissue Severity: Fat Layer Exposed Amount of bleeding with debridement: Mild Bleeding Controlled with: Pressure Patient tolerated procedure: Patient tolerated procedure well Post-Debridement Measurements and Additional Note: Post-Debridement Measurements/Treatment - Nurse 1 - General Ulcer Assessment Start: 12/24/23 08:56 Freq: Status: Active Protocol: CL[place]ORD Activity Type Activity Date Activity User E-sign Co-sign Detail Recorded Client Recorded Date Recorded By Document 12/24/23 08:56 [facility] Desktop 12/24/23 08:57 [facility] 12/24/23 08:56 - Today's Visit Information Type of service Follow-up Visit (Physician/TRAPEZE PERFORMER ) Arrival Mode Ambulatory, Walker Transfer Assistance None Patient Identification Verified (Name & Yes ) Patient Requires Transmission-Based No Precautions Height and Weight Body Mass Index (BMI) 40.2 BMI Classification Obese Vital Signs Temperature (97.8 F-99.1 F) 96.9 F L Temperature Source Temporal Pulse Rate (60-100) 83 Pulse Location Monitor Respiratory Rate (12-18) 18 Respiratory rate source Observation Blood Pressure (90/60-120/80) 171/79 H Blood Pressure Mean (mm Hg) 109 Source Monitor Position Semi-Fowlers Blood Pressure Location Right Arm History Since Last Visit- (Skip if this is Patient's initial visit) Have you changed medications since your No last visit? Any new allergies or adverse reactions No Had a fall/change in ADL's that may No increase risk of falls Signs or symptoms of abuse and/or No neglect since last visit Have you been in the hospital since your No last visit? Has dressing in place as prescribed Yes Has compression in place as prescribed No Has offloadiing in place as prescribed No Experienced any changes in pain level or No management Pain Scale: 0-10 Numeric Is Patient Pain Free? Yes WC - Nurse 1 - General Ulcer Measurement Start: 12/24/23 08:56 Freq: Status: Active Protocol: Activity Type Activity Date Activity User E-sign Co-sign Detail Recorded Client Recorded Date Recorded By Document 12/24/23 08:56 [facility] Desktop 12/24/23 08:57 RB 12/24/23 08:56 Wound Center Nurse 1 #1- R PUBIC AREA -Combined with other wound No -Current Size (cm) - Length 0.1 -Current Size (cm) - Width 0.1 -Current Size (cm) - Depth 0.1 -Total Square Cm 0.01 -Photo Taken Yes -Tunneling No -Undermining/Tunneling No -Circular Undermining No -Exudate Amt Small -Exudate Type Serosanguineous -Wound Margin Distinct, Outline Attached -Granulation Amt Medium (34-66%) -Granulation Quality [place] -Slough/Fibrin Yes -Necrosis Amt Medium (34-66%) -Necrotic Tissue Type Adherent Slough -Structure Exposed N/A -Texture (Unique-wound Skin Appearance) Assessed -Moisture (Unique-wound Skin Appearance) Assessed -Color (Unique-wound Skin Appearance) Assessed -Temperature (Unique-wound Skin No Abnormality Appearance) (Pt Warm) -Tenderness on Palpation (Unique-wound No Skin Appearance) -Ulcer Cleansing Wound Cleanser -Foul Odor after Cleansing No -Anesthetic Used 5% Lidocaine Gel WC - Nurse 2 - General Ulcer CM Notes Start: 12/24/23 08:56 Freq: Status: Active Protocol: Activity Type Activity Date Activity User E-sign Co-sign Detail Recorded Client Recorded Date Recorded By Document 12/24/23 09:05 Desktop 12/24/23 09:11 12/24/23 09:05 Wound Center Nurse 2 -Time 09:06 -Correct Patient Yes -Correct Side, Site, Position Yes -Correct Procedure Yes -Procedure Performed Yes -Type of Procedure Debridement -Clinical Debridement Epidermis / Dermis -Tissue Removed Epidermis, Dermis -Tunneling No -Undermining/Tunneling No -Circular Undermining No -Wound/Ulcer Outcome Not Healed -Ulcer Cleansing Rinsed/ Irrigated with Saline -Foul Odor after Cleansing No -Bioengineered Tissue No -Bleeding Controlled with Pressure -Treatment Response Procedure Tolerated Well -Debridement - Open, 1st 20sq cm Yes Pain Scale: 0-10 Numeric Is Patient Pain Free? Yes Assessment/Plan Assessment/Plan (1) Skin ulcer of groin with fat layer exposed: CODE(S): L98.492 - Non-pressure chronic ulcer of skin of other sites with fat layer exposed (2) Skin ulcer of abdomen: CODE(S): L98.499 - Non-pressure chronic ulcer of skin of other sites with unspecified severity PLAN: Plan Debridement done as documented above, procedure was well-tolerated. Very minimal area left. Continue Aquacel extra daily, cover with Adaptic and gauze. Adequate protein intake. Optimal diabetes control, most recent A1c was at 5.4. Follow-up in office, discharge from the wound clinic. This note was generated with [employer] software. It may contain incorrect words, spelling, and punctuation that were not noted in checking the note before signing.
--- NOTE | 2023-12-25 09:22 | WC ---
3.7.24 RT PUBIC AREA
== END 2023-12-24 16:05 | disposition home or self-care (01) ==
LOC: WC 08:45
PROVIDERS: PCP Internal Medicine; Referring Provider Internal Medicine; Visit Provider Internal Medicine
DX: L98.492 Non-pressure chronic ulcer of skin of other sites with fat layer exposed (principal)
CPT/HCPCS: 97597

== ENCOUNTER → 2023-12-31 | Outpatient (CLI) | payer MEDICARE, MEDICAID, SELFPAY ==
--- NOTE | 2023-12-31 07:47 | CT_ITS ---
STUDY: CT PELVIS WITHOUT CONTRAST REASON FOR EXAM: Female, 73 years old. Pain following a fall. RADIATION DOSAGE (If Supplied By Facility): CTDIvol = ( 28.21 ) mGy, DLP = ( 905.21 ) mGycm TECHNIQUE: Transaxial imaging of the pelvis was performed with oral contrast, and without intravenous administration of contrast material. Individualized dose optimization techniques were used for this CT. COMPARISON: None. FINDINGS: Normal urinary bladder. Small cyst in the lower pole of the right kidney. Normal visualized small intestine. Normal visualized colon. There is no pelvic fluid. There is no pelvic mass lesion or lymphadenopathy. There is diffuse atherosclerotic calcification of the pelvic arteries. Normal abdominal wall. Degenerative changes of the sacroiliac joints bilaterally as well as the symphysis pubis. CT/Pelvis without IV Contrast IMPRESSION: No fracture is seen. Degenerative changes of the symphysis pubis as well as sacroiliac joints and lower lumbar spine. Electronically Signed: Wil Ortega MD at 8:41 EDT ,
--- OUTSIDE RECORDS SUMMARY | 2023-12-31 07:55 | XMS RPT_ITS | CCD ---
Author Name Unknown Address [address] [place] [address] Organization [facility] Care Team Providers Care Attorney Law Clerk Name Role Phone Shira Hylton Unavailable Unavailable [...] Leopoldo Baird MD Primary Care Provider [phone] Unavailable Primary Care Provider Unavailabl e Rodye, Efewongbe B Primary Care Provider Labor Adelina STOREY Unavailable [phone] Mica Welch CNP, Dejah Unavailable [phone] Mnajit Ga DO Unavailable Unavailable Susie Ledezma MD Unavailable Oleghe, Efewongbe B Primary Care Provider Oleghe, Efewongbe B Primary Care Provider SUSIE LEDEZMA Admitting Unavailable SUSIE LEDEZMA Attending Unavailable OLEANGELIE, EFEWONGBE Primary Care Unavailable KAREEM HARTMANN Attending Unavailable OLEGHE, EFEWONGBE Primary Care Unavailable KAREEM HARTMANN Attending Unavailable OLEGHE, EFEWONGBE Primary Care Unavailable KAREEM HARTMANN Attending Unavailable OLEE, EFEWONGBE Primary Care Unavailable HARITHA SINGH Attending Unavailable DEJAH DREW Referring Unavailable OLEE, EFEWONGBE Primary Care Unavailable ASHLEY MESA Attending Unavailable OLEE, EFEWONGBE Primary Care Unavailable SUSIE LEEDZMA Attending Unavailable OLEE, EFEWONGBE Primary Care Unavailable KENZIE PAUL Attending Unavailable OLEE, EFEWONGBE Primary Care Unavailable JENNIFERELADIA RICHEK Attending Unavailable OLEGHE, EFEWONGBE Primary Care Unavailable BRETT BERNAL Attending Unavailable ZSHAYLEE LITTLEORY Referring Unavailable OLEE, EFEWONGBE Primary Care Unavailable Allergies Allergy Classification Reported Allergen(s) Allergy Type Date of Onset Reaction(s) Facility (3 sources) iloperidone Drug Allergy 1 [facility] Work Phone: (1 source) paliperidone Drug Allergy -[facility] & Away [facility] Work Phone: (1 source) Theophylline Drug Allergy [facility] Work Phone: (1 source) traZODone Drug Allergy [facility] Work Phone: (20 sources) Naproxen Drug Allergy 1 Hives [facility] (3 sources) Gadoxetate Drug Allergy 7 Shortness of Breath, SOB [facility] (1 source) Slow-bid [Other] Propensity to adverse reactions 2 Mental Status Change [facility] Work Phone: (20 sources) paliperidone Drug Allergy 9 [facility] Work Phone: (20 sources) iloperidone Drug Allergy 9 [facility] (20 sources) lurasidone Drug Allergy 9 [facility] (20 sources) Theophylline Drug Allergy 7 [facility] (20 sources) Gadoxetate Propensity to adverse reactions 7 Shortness of breath [facility] (20 sources) Trazodone And Nefazodone Drug Intolerance 9 [facility] [employer] Medications Current Medications Medication Drug Class(es) Dates [...] Drug Class(es) Dates Sig (Normalized) Sig (Original) [id number] 200 actuat albuterol 0.09 mg/actuat metered dose [...] 152.4 cm Kareem Hartmann MD Work Phone: [employer] 09-03-2023 07:11-0500 Body mass index (BMI) [Ratio] 43.51 kg/m2 Kareem Hartmann MD Work Phone: [employer] 09-03-2023 07:11-0500 Body weight 101.06 kg Kareem Hartmann MD Work Phone: [facility] [employer] 09-03-2023 07:11-0500 Diastolic blood pressure 106 mm[Hg] Kareem Hartmann MD Work Phone: [employer] 09-03-2023 07:11-0500 Systolic blood pressure 169 mm[Hg] Kareem Hartmann MD Work Phone: [facility] [employer] 08-10-2023 08:11-0400 Body height 152.4 cm Kareem Hartmann MD Work Phone: [employer] 08-10-2023 08:11-0400 Body mass index (BMI) [Ratio] 43.36 kg/m2 Kareem Hartmann MD Work Phone: [facility] [employer] 08-10-2023 08:11-0400 Body weight 100.7 kg Kareem Hartmann MD Work Phone: [facility] [employer] 08-10-2023 08:11-0400 Diastolic blood pressure 88 mm[Hg] Kareem Hartmann MD Work Phone: [facility] [employer] 08-10-2023 08:11-0400 Heart rate 86 /min Kareem Hartmann MD Work Phone: [facility] [employer] 08-10-2023 08:11-0400 Systolic blood pressure 150 mm[Hg] Kareem Hartmann MD Work Phone: [facility] [employer] 07-09-2023 09:28-0400 Body height 152.4 cm Kareem Hartmann MD Work Phone: [facility] [employer] 07-09-2023 09:28-0400 Body mass index (BMI) [Ratio] 44.18 kg/m2 Kareem Hartmann MD Work Phone: [facility] [employer] 07-09-2023 09:28-0400 Body weight 102.6 kg Kareem Hartmann MD Work Phone: [facility] [employer] 07-09-2023 09:28-0400 Diastolic blood pressure 84 mm[Hg] Kareem Hartmann MD Work Phone: [facility] [employer] 07-09-2023 09:28-0400 Heart rate 75 /min Kareem Hartmann MD Work Phone: [facility] [employer] 07-09-2023 09:28-0400 Respiratory rate 16 /min Kareem Hartmann MD Work Phone: [facility] [employer] 07-09-2023 09:28-0400 Systolic blood pressure 142 mm[Hg] Kareem Hartmann MD Work Phone: [facility] [employer] 06-25-2023 09:06-0400 Body height 152.4 cm Kenzie Paul MD Work Phone: [facility] 06-25-2023 09:06-0400 Body mass index (BMI) [Ratio] 43.28 kg/m2 Kenzie Paul MD Work Phone: [facility] 06-25-2023 09:06-0400 Body weight 100.52 kg Kenzie Paul MD Work Phone: [facility] 06-25-2023 09:06-0400 Diastolic blood pressure 88 mm[Hg] Kenzie Paul MD Work Phone: [facility] Encounters Encounter Date Encounter Type Care Provider Facility Start: 10-17-2023 ambulatory Facility:[facility] Start: 09-28-2023 Refill Brett GO Work Phone: [facility] Start: 09-21-2023 Documentation procedure Kareem Hartmann MD Work Phone: [facility] Start: 09-21-2023 Telephone encounter Kareem rich MD Work Phone: [facility] Procedures Date Procedure Procedure Detail Performing Clinician Start: 07-09-2023 Lipid 1996 panel - Serum or Plasma Kareem Hartmann MD Work Phone: Start: 01-15-2022 Mammography Susie Ledezma MD Work Phone: Start: 12-05-2020 Lipid 1996 panel - Serum or Plasma Dateland Noteboom PharmD Work Phone: Start: 08-03-2020 Endoscopy - Upper GI Magalie Rangel Start: 08-26-2018 Colonoscopy [facility] Work Phone: Start: 12-30-2016 Adult depression screening assessment [facility] Work Phone: Start: 12-12-2016 Mammography [facility] Work Phone: section Magalie Henry er Cholecystectomy Magalie Vitale r Colonoscopy Magalie Rangel Esophagogastroduodenoscopy E llen Linleoncio Hysterectomy Magalie Rangel Plan of Treatment Date Care Activity Detail Author Start: 07-09-2028 Lipid panel Lipid Panel [facility] Start: 09-27-2026 DTaP/Tdap/Td Vaccine s (2 - Td or Tdap) DTaP/Tdap/Td Vaccines (2 - Td or Tdap) [facility] Start: 07-15-2026 Tetanus vaccination Imm-DTaP/T dap/Td (2 - Td or Tdap) [facility] Start: 07-15-2026 Urine microalbumin profile DTAP,TDAP,TD (2 - Td or Tdap) [facility] Start: 12-05-2025 Lipid panel Lipid Panel [facility] Start: 07-09-2024 Diabetes mellitus screening Diabetes Screening [facility] Start: 12-02-2023 Tobacco use cessatio n education Tobacco Cessation Counseling (#1) [facility] Start: 10-09-2023 End: 07-10-2024 25-hydroxyvitamin D3 [Mass/volume] in Serum or Plasma Vitamin D Deficiency Screening (Vit D 25) Lab Routine Vitamin D deficiency Expected: 10/09/2023 (Approximate), Expires: 07/10/2024 [facility] Immunizations Immunization Date Immunization Notes Care Provider Ronald hamm 08-27-2022 influenza virus vacc ine, unspecified formulation Susie Ledezma MD Work Phone: [facility] 07-21-2016 influenza, injectabl e, quadrivalent, contains preservative [facility] Work Phone: [facility] 07-15-2016 tetanus toxoid, redu aaliyah diphtheria toxoid, and acellular pertussis vaccine, adsorbed [facility] Work Phone: [facility] 09-05-2014 influenza, seasonal, injectable [facility] Smart Work Phone: [facility] Work Phone: 07-31-2012 pneumococcal polysaccharide vaccine, 23 valent [facility] Smart Work Phone: [facility] 07-29-2012 influenza virus vacc ine, unspecified formulation [facility] Work Phone: [facility] 09-29-2010 pneumococcal polysaccharide vaccine, 23 valent [facility] Work Phone: [facility] Payers Date Payer Category Payer Medicaid [employer] [place] [employer] [facility] [employer] MEDICAID [id number] 2018-Present [phone] [address] [place] [address] Medicaid [id number] 2018 Medicare [id number] 2015 Medicare [id number] 2015 Unknown [id number] 1950 Unknown [id number] Social History Date Type Detail Facility Start: 10-19-1987 End: 06-25-2023 Tobacco smoking status NEIS Smokes tobacco daily [facility] Start: 10-19-1987 End: 10-16-2015 History of tobacco use Cigarette Smoker [facility] Start: 05-21-2016 End: 07-09-2023 Cigarettes smoked current (pack per day) - Reported 0.5 [facility] Start: 05-21-2016 End: 06-25-2023 Tobacco use and exposure Smokeless tobacco non-user [facility] Start: 08-29-2021 Alcohol intake Current non-dr bar host/hostess of alcohol (finding) [facility] Start: 1950 Sex Assigned At Not on file C [facility] Start: 07-30-2021 End: 07-09-2023 Exposure to SARS-CoV-2 (event) Not sure [facility] Start: 12-02-2022 End: 12-18-2022 Alcohol intake Lifetime non-drinker (finding) [employer] Work Phone: Start: 01-15-2021 History SDOH Alcohol Frequency 1 [employer] Work Phone: Start: 12-02-2022 Tobacco Comment half a pack da vini, smoked since 37 [employer] Work Phone: Start: 1950 Sex Assigned At Female [employer] Work Phone: Start: 04-30-2023 End: 07-09-2023 Alcohol intake Ex-drinker (finding) [facility] Start: 04-30-2023 End: 07-09-2023 Gender identity Not on file [facility] Start: 06-16-2023 Tobacco smoking stat [facility] Ex-smoker [facility] Start: 10-19-1987 History of tobacco use Current smoke r [facility] [employer] Within the last year , have you been afraid of your partner or ex-partner? No [facility] [employer] NEGATED: Highlighted row - - -[facility] Work Phone: Functional Status Date Assessment Result Facility NEGATED: Highlighted row Functional performance Functional status health issues are not documented Disease -[facility] Work Phone: Mental Status Date Assessment Result Facility NEGATED: Highlighted row Cognitive function [Interpretation] Cognitive status health issues are not documented Disease -[facility] Work Phone: Clinical Notes 01-31-2013 to 10-05-2023 Telephone Encounter - ABBI Cassidy - 10/05/2023 12:25 PM ESTTelephone Encounter - ABBI Cassidy - 10/05/2023 12:25 PM ESTTelephone Encounter - Elisa Arce RN - 10/05/2023 12:02 PM EST Note Date & Type Note Facility 10-05-2023 Note Addended by: ELISA ARCE on: 10/05/2023 12:08 PM Modules accepted: Orders [facility] 10-05-2023 Telephone encounter Note Noted, thanks [facility] 10-05-2023 Miscellaneous Notes Noted, thanks Per [...] EGD is to be cancelled via pool: [facility] ALS CLINICAL MUFFLER INSTALLER (List Surgeon as provider in the TE) EGD done 06/16/23 [x] Clinical staff to note in specialty comment date patient has withdrawn from the program [x] Sent to [facility] and Surgical Navigation and Financial Teams for notification. Name of caller: Giovana Contact phone number: [phone] Relationship to Patient: patient Provider: Kareem Hartmann [...] their call: Yes documented in this encounter [facility] [employer] 10-05-2023 Note Addended by: ELISA ARCE on: 10/05/2023 12:08 PM Modules accepted: Orders [facility] [employer] 10-05-2023 Note Addended by: ELISA ARCE on: 10/05/2023 12:08 PM Modules accepted: Orders [facility] [employer] 10-05-2023 Miscellaneous Notes Addended by: ELISA ARCE [...] recommended proceeding with the evaluation, workup and acquisition consultant preoperative consultations and testing for the primary procedure as outlined below: BARIATRIC AND METABOLIC SURGERY [facility] PATIENT SUMMARY Giovana Ledezma 72 y.o. female [...] she has been compliant with, both in [place] and now in [place] She will need 6 months of physician [...] Practitioner) Manjit Ga DO (Psychiatry) Initial New [facility] surgical patient Navigation & Financial Counseling [...] PRIMARY INSURANCE: Payor: [employer] MEDICARE / Plan: [employer] DUAL ADVANT[employer] / Product Type: Medicare HMO [...] 1) Scheduled at new pt surgeon visit: Renal Case Manager (RD) for a Nutrition Assessment (BNA) and [...] and after surgery. documented in this encounter [facility] 10-05-2023 Telephone encounter Note See TE from 09/21/23 where pt withdrew from surg program and non surg. [facility] [employer] 10-05-2023 Telephone encounter Note Per message in [...] EGD is to be cancelled via pool: [facility] ALS CLINICAL MUFFLER INSTALLER (List Surgeon as provider in the TE) EGD done 06/16/23 [x] Clinical staff to note in specialty comment date patient has withdrawn from the program [x] Sent to [facility] and Surgical Navigation and Financial Teams for notification. [facility] 09-28-2023 Telephone encounter Note One month sent but pt needs to complete repeat labs- please advise, thanks! [facility] 09-28-2023 Miscellaneous Notes One month sent but pt needs to complete repeat labs- please advise, thanks! Received fax from [facility] requesting refills for Vit B-12 500 mcg. documented in this encounter [facility] 09-28-2023 Telephone encounter Note Received fax from [facility] requesting refills for Vit B-12 500 mcg. [facility] 09-21-2023 Telephone encounter Note Name of caller: Giovana Contact phone number: [phone] Relationship to Patient: patient Provider: Kareem Hartmann [...] business hours to return their call: Yes [facility] 09-21-2023 Miscellaneous Notes Name of caller: Giovana Contact phone number: [phone] Relationship to Patient: patient Provider: Kareem Hartmann [...] their call: Yes documented in this encounter [facility] 09-21-2023 History of Present illness Narrative I called Ms. Powell (using the phone number listed in [facility]) to discuss how she is tolerating the Trulicity. She did not pharmacy picking technician the phone. Kareem Hartmann MD 3:14 PM 09/21/2023 documented in this encounter [facility] 09-03-2023 History of Present illness Narrative [...] the Trulicity, contact PCP and [facility], and seek immediate medical attention for urgent [...] follow up with her sleep specialist in [place] --smoking cessation: recently quit with nicotine patch [...] patient's medications and diagnoses listed in Epic. [facility] NON-SURGICAL WEIGHT LOSS MANAGEMENT PROGRAM ROOMING NOTE: [...] Path) Date of Initial Consultation:@FLOWLAST(8961)@ Initial Weight: @FLOWLAST([id number])@ Initial BMI: @FLOWLAST([id number])@ [place] Body Weight: @FLOWLAST([id number])@ Excess Body Weight: @FLOWLAST([id number])@ Body Fat Percentage: No flowsheet data found. [...] Juanita Daigle MA documented in this encounter [facility] [employer] 08-12-2023 Telephone encounter Note Patient states she is switching to the NSRUG program with Dr. Hartmann. [facility] [employer] 08-10-2023 Telephone encounter Note Patient needs scheduled for psychology please. On d/e 5 out of 6, thanks. [facility] [employer] 08-10-2023 Miscellaneous Notes Patient needs scheduled for [...] recommended proceeding with the evaluation, workup and acquisition consultant preoperative consultations and testing for the primary procedure as outlined below: BARIATRIC AND METABOLIC SURGERY [facility] PATIENT SUMMARY Giovana Ledezma 72 y.o. female [...] she has been compliant with, both in [place] and now in [place] She will need 6 months of physician [...] Team: Leopoldo Baird as PCP - General Adelian Lin DO (Addiction Medicine) Dejah Drew APRN - PATRICIO (Nurse Practitioner) Manjit Ga DO (Psychiatry) Initial New [facility] surgical patient Navigation & Financial Counseling [...] [] YES [] NO PRIMARY INSURANCE: Payor: [place] MEDICARE / Plan: [employer] DUAL ADVANTAGE / Product Type: Medicare HMO [...] 1) Scheduled at new pt surgeon visit: Renal Case Manager (RD) for a Nutrition Assessment (BNA) and [...] and after surgery. documented in this encounter [facility] 08-10-2023 Note [facility] SURGICAL WEIGHT LOSS MANAGEMENT PROGRAM PROGRESS NOTE FOLLOW UP Patient: Giovana Powell Date of : 1950 Service Date: 08/10/2023 [place] Visit number: 4 of 6 Pre Program Weight Metrics Date of Initial Consultation:@FLOWLAST(8961)@ Initial Weight: @FLOWLAST([id number])@ Initial BMI: @FLOWLAST([id number])@ [place] Body Weight: @FLOWLAST([id number])@ Excess Body Weight: @FLOWLAST([id number])@ Follow Up Weight Metrics Last Three Weights [...] home O2 Completed by: Juanita Daigle MA [facility] 08-10-2023 History of Present illness Narrative [facility] SURGICAL WEIGHT LOSS MANAGEMENT PROGRAM PROGRESS NOTE FOLLOW UP Patient: Giovana Powell Date of : 1950 Service Date: 08/10/2023 [place] Visit number: 4 of 6 Pre Program Weight Metrics Date of Initial Consultation:@FLOWLAST(8961)@ Initial Weight: @FLOWLAST([id number])@ Initial BMI: @FLOWLAST([id number])@ [place] Body Weight: @FLOWLAST([id number])@ Excess Body Weight: @FLOWLAST([id number])@ Follow Up Weight Metrics Last Three Weights [...] home O2 Completed by: Juanita Daigle MA [facility] WEIGHT [...] follow up with her sleep specialist in [place] --smoking cessation: recently quit with nicotine patch [...] --Leukocytosis and elevated platelets: follows with hematology/oncology ([facility], Dr. Russell) Advised patient to continue [...] listed in Epic. documented in this encounter [facility] 08-05-2023 History of Present illness Narrative [facility] BARIATRIC NUTRITION ASSESSMENT / [...] Lashonda Mason RD documented in this encounter [facility] [employer] 07-14-2023 Telephone encounter Note So far, we haven't received anything from the pharmacy about a prior authorization for Trulicity. When I spoke to the patient, I also told her to call us if there was any issues. [facility] 07-14-2023 Miscellaneous Notes So far, we [...] to call us back. I called Ms. oPwell and spoke with her. She wanted me [...] a call back. documented in this encounter [facility] 07-14-2023 Telephone encounter Note Thank you, yes Trulicity was recommended by the insurance company since Mounjaro is not covered. How will we know if Trulicity is covered by insurance? Thanks again [facility] [employer] 07-14-2023 Telephone encounter Note FYI: Spoke with [...] was any issues to call us back. [facility] [employer] 07-10-2023 Telephone encounter Note Signed, thanks [facility] [employer] 07-10-2023 Miscellaneous Notes Signed, thanks Noted, thank [...] labs. [facility] Telephone encounter Note Noted, thank you! [employer] Work Phone: 07-10-2023 Telephone encounter Note Called [...] months. Orders pending. Please sign. Thank you! [facility] [employer] 07-10-2023 History of Present illness Narrative Message regarding prior authorization reviewed. Recommendation is to substitute Trulicity for Mounjaro. Changes made and prescription sent to pharmacy. documented in this encounter [facility] [employer] 07-10-2023 Telephone encounter Note I called Ms. [...] side effects of the injectable AOMs. Ms. Pwoell understood and agreed to proceed with the prescription. Ms. Powell had no other questions/concerns. Kareem Hartmann MD 9:45 AM 07/10/2023 [facility] 07-10-2023 Miscellaneous Notes I called Ms. [...] MD 9:45 AM 07/10/2023 Started PA through CM Patient left VM stating she has a question for Dr. Hartmann and would like a call back. documented in this encounter [facility] 07-10-2023 Telephone encounter Note Started PA through CMM [facility] 07-09-2023 Telephone encounter Note Patient left VM stating she has a question for Dr. Hartmann and would like a call back. [facility] 07-09-2023 Telephone encounter Note Pre-op_JZ 07/09/2023 Vitamin D: 20 (L) Magnesium: 2.5 (H) Vitamin B12: 333 (L end NL) MyChart message sent regarding labs. [facility] 07-09-2023 Note Addended by: MARCELO LAM on: 07/09/2023 10:11 AM Modules accepted: Orders [facility] 07-09-[address] [facility] SURGICAL WEIGHT LOSS MANAGEMENT PROGRAM PROGRESS NOTE FOLLOW UP Patient: Giovana Powell Date of : 1950 Service Date: 07/09/2023 [place] Visit number: 3 of 6 Pre Program Weight Metrics Date of Initial Consultation:@FLOWLAST(8961)@ Initial Weight: @FLOWLAST([id number])@ Initial BMI: @FLOWLAST([id number])@ [place] Body Weight: @FLOWLAST([id number])@ Excess Body Weight: @FLOWLAST([id number])@ Follow Up Weight Metrics Last Three Weights [...] home O2 Completed by: Evelyn Chambers MA [facility] 07-09-2023 Note Addended by: MARCELO LAM on: 07/09/2023 10:11 AM Modules accepted: Orders [facility] 07-09-2023 Note Addended by: MARCELO LAM on: 07/09/2023 10:11 AM Modules accepted: Orders [facility] 07-09-2023 Note Addended by: MARCELO LAM on: 07/09/2023 10:11 AM Modules accepted: Orders [facility] 07-09-2023 Note Addended by: MARCELO LAM on: 07/09/2023 10:11 AM Modules accepted: Orders [facility] 07-09-2023 Miscellaneous Notes Addended by: MARCELO [...] recommended proceeding with the evaluation, workup and acquisition consultant preoperative consultations and testing for the primary procedure as outlined below: BARIATRIC AND METABOLIC SURGERY [facility] PATIENT SUMMARY Giovana Ledezma 72 y.o. female [...] she has been compliant with, both in [place] and now in [place] She will need 6 months of physician [...] Practitioner) Manjit Ga DO (Psychiatry) Initial New [facility] surgical patient Navigation & Financial Counseling [...] PRIMARY INSURANCE: Payor: [employer]ARE / Plan: [employer] DUAL ADVANTAGE / Product Type: Medicare HMO [...] 1) Scheduled at new pt surgeon visit: Renal Case Manager (RD) for a Nutrition Assessment (BNA) and [...] and after surgery. documented in this encounter [facility] 07-09-2023 History of Present illness Narrative [facility] [place] SURGICAL WEIGHT LOSS MANAGEMENT PROGRAM PROGRESS NOTE FOLLOW UP Patient: Giovana Powell Date of : 1950 Service Date: 07/09/2023 DE Visit number: 3 of 6 Pre Program Weight Metrics Date of Initial Consultation:@FLOWLAST(8961)@ Initial Weight: @FLOWLAST([id number])@ Initial BMI: @FLOWLAST([id number])@ [place] Body Weight: @FLOWLAST([id number])@ Excess Body Weight: @FLOWLAST([id number])@ Follow Up Weight Metrics Last Three Weights [...] -GI surgeries: cholecystectomy, hysterectomy -Anti-obesity medications are predatory animal exterminator medications. Weight gain will likely result [...] follow up with her sleep specialist in [place], she also requires pulmonology clearance prior to [...] listed in Epic. documented in this encounter [facility] [employer] 07-09-2023 History of Present illness Narrative [facility] SURGICAL WEIGHT LOSS MANAGEMENT PROGRAM PROGRESS NOTE FOLLOW UP Patient: Giovana Powell Date of : 1950 Service Date: 07/09/2023 DE Visit number: 3 of 6 Pre Program Weight Metrics Date of Initial Consultation:@FLOWLAST(8961)@ Initial Weight: @FLOWLAST([id number])@ Initial BMI: @FLOWLAST([id number])@ [place] Body Weight: @FLOWLAST([id number])@ Excess Body Weight: @FLOWLAST([id number])@ Follow Up Weight Metrics Last Three Weights [...] -GI surgeries: cholecystectomy, hysterectomy -Anti-obesity medications are fdc medications. Weight gain will likely result when [...] follow up with her sleep specialist in [place], she also requires pulmonology clearance prior to [...] listed in Epic. documented in this encounter [facility] 06-25-2023 Note 06/25/2023 REFERRING PHYSICIAN: LEOPOLDO [...] Dr. Newell/ Vickie general CHOLECYSTECTOMY 2019 laparoscopic -[place] HYSTERECTOMY [facility] Social History: Social History Socioeconomic History [...] (06/25/23905) Resp 18 (more content not included)... [facility] 06-25-2023 History of Present illness Narrative [...] Vickie general CHOLECYSTECTOMY 2019 laparoscopic -[place] HYSTERECTOMY [facility] Social History: Social History Socioeconomic History [...] for Spirometry results. documented in this encounter [facility] 06-25-2023 Instructions Isha Garcia Rai, MA - 06/25/2023 10:00 AM EDT YOUR APPOINTMENT TODAY WAS WITH THE [facility], COPD CLINIC, PULMONARY AND SLEEP MEDICINE OFFICE. PLEASE CALL OUR OFFICE AT [phone] IF YOU HAVE NOT RECEIVED YOUR TEST [...] to make improvements. COVID-19 VACCINATION INFORMATION: PH. [phone] [email or web address] [facility] Central Scheduling [phone] [facility] Sleep Scheduling [phone] documented in this encounter [facility] 06-17-[address] [facility] SURGICAL WEIGHT LOSS MANAGEMENT PROGRAM PROGRESS NOTE FOLLOW UP Patient: Giovana Powell Date of : 1950 Service Date: 06/17/2023 DE Visit number: 2 of 6 Pre Program Weight Metrics Date of Initial Consultation:@FLOWLAST(8961)@ Initial Weight: @FLOWLAST([id number])@ Initial BMI: @FLOWLAST(986649006)@ [place] Body Weight: @FLOWLAST([id number])@ Excess Body Weight: @FLOWLAST([id number])@ Follow Up Weight Metrics Last Three Weights [...] home O2 Completed by: Nata Bro LPN [facility] 06-17-2023 History of Present illness Narrative [facility] SURGICAL WEIGHT LOSS MANAGEMENT PROGRAM PROGRESS NOTE FOLLOW UP Patient: Giovana Powell Date of : 1950 Service Date: 06/17/2023 DE Visit number: 2 of 6 Pre Program Weight Metrics Date of Initial Consultation:@FLOWLAST(8961)@ Initial Weight: @FLOWLAST([id number])@ Initial BMI: @FLOWLAST([id number])@ [place] Body Weight: @FLOWLAST([id number])@ Excess Body Weight: @FLOWLAST([id number])@ Follow Up Weight Metrics Last Three Weights [...] Ambivalent about surgery Considering non surgical approach Andreasy trial per pt request Advised patient that [...] updated and completed. documented in this encounter [facility] 06-16-2023 Note Patient: Giovana Powell Procedure Summary Date: 06/16/23 Room / Location: [facility] ENDO SEC 3 / ARCH [...] once all PACU criteria has been met. [facility] 06-16-2023 Note Patient: Giovana Powell Procedure Summary Date: 06/16/23 Room / Location: [facility] ENDO SEC 3 / ARCH [...] of surgery or procedure by MD, APC simulation educator proxy staff ([id number]) The patient did smoke [...] opportunity for questions and acknowledgement of understanding. [facility] 06-16-2023 Note [facility] Patient Name: Giovana Powell Procedure Date: 06/16/2023 8:44 AM Gender: Female Date of : 1950 Age: 72 Admit Type: Outpatient Note Status: Finalized Endoscopist: Susie Ledezma MD, [id number] Procedure: Upper GI endoscopy Indications: Suspected gastro-esophageal [...] immediate complications. Procedure Code(s): --- Professional --- 67499, Esophagogastroduodenoscopy, flexible, transoral; with biopsy, single or multiple --- Technical --- 24116, Esophagogastroduodenoscopy, flexible, transoral; with biopsy, single or multiple Diagnosis Code(s): --- Professional --- K29.70, Gastritis, unspecified, without bleeding Z01.818, Encounter for other preprocedural examination E66.01, Morbid (severe) obesity due to excess calories --- Technical --- K29.70, Gastritis, unspecified, without bleeding Z01.818, Encounter for other preprocedural examination E66.01, Morbid (severe) obesity due to excess calories CPT copyright 2021 [employer]. All rights reserved. The codes documented in this report are preliminary and upon truck headlight assembler review may be revised to meet current compliance requirements. Attending Participation: I personally performed the entire procedure. Susie Ledezma MD 06/16/2023 9:09:17 AM This report has been signed electronically. Number of Addenda: 0 Note Initiated On: 06/16/2023 8:44 AM [facility] 06-16-2023 Note Patient: Giovana Powell Procedure Information Date/Time: 06/16/23 0900 Procedure: EGD WITH BIOPSY - 30 MINUTES Location: [address] ENDO SEC 3 / ARCH Gastroenterology [...] Newell/ Vickie lowry 2019: CHOLECYSTECTOMY Comment: laparoscopic -[place] No date: HYSTERECTOMY Comment: [facility] Social History: TOBACCO: reports that she [...] found for this or any previous visit. [facility] 06-16-2023 Note Formatting of this n ote might be different from the original. [facility] Patient Name: Giovana Powell Procedure Date: 06/16/2023 8:44 AM Gender: Female Date of : 1950 Age: 72 Admit Type: Outpatient Note Status: Finalized Endoscopist: Susie Ledezma MD, [id number] Procedure: Upper GI endoscopy Indications: Suspected gastro-esophageal [...] immediate complications. Procedure Code(s): --- Professional --- 82318, Esophagogastroduodenoscopy, flexible, transoral; with biopsy, single or multiple --- Technical --- 10914, Esophagogastroduodenoscopy, flexible, transoral; with biopsy, single or multiple Diagnosis Code(s): --- Professional --- K29.70, Gastritis, unspecified, without bleeding Z01.818, Encounter for other preprocedural examination E66.01, Morbid (severe) obesity due to excess calories --- Technical --- K29.70, Gastritis, unspecified, without bleeding Z01.818, Encounter for other preprocedural examination E66.01, Morbid (severe) obesity due to excess calories CPT copyright 2021 [employer]. All rights reserved. The codes documented in this report are preliminary and upon truck headlight assembler review may be revised to meet current compliance requirements. Attending Participation: I personally performed the entire procedure. Susie Ledezma MD 06/16/2023 9:09:17 AM This report has been signed electronically. Number of Addenda: 0 Note Initiated On: 06/16/2023 8:44 AM [facility] [employer] 06-16-2023 Note Formatting of this n ote might be different from the original. [facility] Name: Giovana Powell Procedure Date: 06/16/2023 8:44 AM Gender: Female Date of : 1950 Age: 72 Admit Type: Outpatient Note Status: Finalized Endoscopist: Susie Ledezma MD, [id number] Procedure: Upper GI endoscopy Indications: Suspected gastro-esophageal [...] immediate complications. Procedure Code(s): --- Professional --- 54972, Esophagogastroduodenoscopy, flexible, transoral; with biopsy, single or multiple --- Technical --- 11224, Esophagogastroduodenoscopy, flexible, transoral; with biopsy, single or multiple Diagnosis Code(s): --- Professional --- K29.70, Gastritis, unspecified, without bleeding Z01.818, Encounter for other preprocedural examination E66.01, Morbid (severe) obesity due to excess calories --- Technical --- K29.70, Gastritis, unspecified, without bleeding Z01.818, Encounter for other preprocedural examination E66.01, Morbid (severe) obesity due to excess calories CPT copyright 202 [employer]. All rights reserved. The codes documented in this report are preliminary and upon truck headlight assembler review may be revised to meet current compliance requirements. Attending Participation: I personally performed the entire procedure. Susie Ledezma MD 06/16/2023 9:09:17 AM This report has been signed electronically. Number of Addenda: 0 Note Initiated On: 06/16/2023 8:44 AM [facility] [employer] 06-16-2023 Miscellaneous Notes [facility] Patient Name: Giovana Powell Procedure Date: 06/16/2023 8:44 AM Gender: Female Date of : 1950 Age: 72 Admit Type: Outpatient Note Status: Finalized Endoscopist: Susie Ledezma MD, [id number] Procedure: Upper GI endoscopy Indications: Suspected gastro-esophageal [...] immediate complications. Procedure Code(s): --- Professional --- 28271, Esophagogastroduodenoscopy, flexible, transoral; with biopsy, single or multiple --- Technical --- 20772, Esophagogastroduodenoscopy, flexible, transoral; with biopsy, single or multiple Diagnosis Code(s): --- Professional --- K29.70, Gastritis, unspecified, without bleeding Z01.818, Encounter for other preprocedural examination E66.01, Morbid (severe) obesity due to excess calories --- Technical --- K29.70, Gastritis, unspecified, without bleeding Z01.818, Encounter for other preprocedural examination E66.01, Morbid (severe) obesity due to excess calories CPT copyright 2021 [employer]. All rights reserved. The codes documented in this report are preliminary and upon truck headlight assembler review may be revised to meet current compliance requirements. Attending Participation: I personally performed the entire procedure. Susie Ledezma MD 06/16/2023 9:09:17 AM This report has been signed electronically. Number of Addenda: 0 Note Initiated On: 06/16/2023 8:44 AM documented in this encounter [facility] 06-15-2023 Note [facility] Medical [facility] - Surgery [facility] Surgery PATIENT NAME: [...] Dr. Newell/ Vickie general CHOLECYSTECTOMY 2019 laparoscopic -[place] HYSTERECTOMY [facility] Current Medications: Current Facility-Administered Medications Medication [...] 4 mg by mouth daily. 04/28/23 Historical ProviderMD furosemide (Lasix) 20 MG tablet Take 20 mg by mouth daily. 11/17/22 Historical ProviderMD hydrALAZINE (Apresoline) 10 MG tablet Take 10 [...] 25 mg by mouth daily. 04/20/23 Historical ProviderMD metoprolol succinate XL (Toprol-XL) 50 MG 24 [...] Brother Obesity Brot (more content not included)... [facility] 06-15-2023 History and physical note Images from the original note were not included. [facility] - Surgery [facility] Physicians Surgery PATIENT NAME: Giovana Powell DATE [...] Vickie general CHOLECYSTECTOMY 2019 laparoscopic -[place] HYSTERECTOMY [facility] Current Medications: Current Facility-Administered Medications Medication [...] and willingness to proceed with plan. ' [facility] 06-15-2023 History and physical note Images from the original note were not included. [facility] Medical [facility] - Surgery [facility] Physicians Surgery PATIENT NAME: Giovana Powell DATE [...] Vickie general CHOLECYSTECTOMY 2019 laparoscopic -[place] HYSTERECTOMY [facility] Current Medications: Current Facility-Administered Medications Medication [...] by mouth every other day. 04/24/23 Historical ProviderMD fesoterodine ER (Toviaz) 4 MG 24 hr tablet Take 4 mg by mouth daily. 04/28/23 Historical Provider, furosemide (Lasix) 20 MG tablet Take 20 mg by mouth daily. 11/17/22 Historical ProviderMD hydrALAZINE (Apresoline) 10 MG tablet Take 10 [...] 25 mg by mouth daily. 04/20/23 Historical ProviderMD metoprolol succinate XL (Toprol-XL) 50 MG 24 [...] with plan. ' documented in this encounter [facility] 06-08-2023 History of Present illness Narrative [facility] BARIATRIC NUTRITION ASSESSMENT / [...] Lashonda Mason RD documented in this encounter [facility] 06-08-2023 History of Present illness Narrative [facility] BARIATRIC NUTRITION ASSESSMENT / [...] Lashonda Mason RD documented in this encounter [facility] 05-15-2023 Telephone encounter Note Orders mailed- with pain management clearance and neurology clearance form [facility] 05-15-2023 Miscellaneous Notes Orders mailed- with [...] recommended proceeding with the evaluation, workup and acquisition consultant preoperative consultations and testing for the primary procedure as outlined below: BARIATRIC AND METABOLIC SURGERY [facility] PATIENT SUMMARY Giovana Ledezma 72 y.o. female [...] she has been compliant with, both in [place] and now in [place] She will need 6 months of physician [...] DO (Addiction Medicine) Dejah Drew APRN - CHLORINE CELL TENDER (Nurse Practitioner) Manjit Ga DO (Psychiatry) Initial New [facility] surgical patient Navigation & Financial Counseling [...] [] YES [] NO PRIMARY INSURANCE: Payor: [employer] MEDICARE / Plan: [employer] DUAL ADVANTAGE / Product Type: Medicare HMO [...] 1) Scheduled at new pt surgeon visit: Renal Case Manager (RD) for a Nutrition Assessment (BNA) and [...] and after surgery. documented in this encounter [facility] 05-14-2023 History of Present illness Narrative [facility] SURGICAL WEIGHT LOSS MANAGEMENT PROGRAM SUPERVISED DIET [...] Weight: 223 lb 6.4 oz (101 kg) [place] Body Weight: 120 lb (54.4 kg) Initial [...] home O2 Completed by: Juanita Daigle MA [facility] SURGICAL WEIGHT LOSS MANAGEMENT PROGRAM PHYSICIAN SUPERVISED [...] Dr. Newell/ Vickie general CHOLECYSTECTOMY 2019 laparoscopic -[place] HYSTERECTOMY [facility] Family History Problem Relation Name Age [...] Medications No medications on file Discontinued Medications NYAMY 728666 UNIT/GM POWDER This patient's excess weight is causing the following co-morbid conditions at this time:GERD, Fatty Liver Disease, High Cholesterol, HTN, JENNIFER with or without CPAP, and Other pre-diabetes Initial Diet & Exercise/SPR Visit Weight Metrics: Date of Initial Diet & Exercise Visit: Consult Date: 05/14/23 Initial Weight: Initial Weight: 223 lb 6.4 oz (101 kg) Initial BMI: Initial BMI: 43.63 [place] Body Weight: [place] Body Weight: 120 lb (54.4 kg) Excess [...] DIET HISTORY FORM with patient (located in [employer]) I reviewed all of the patient's medications [...] follow up with her sleep specialist in [place], she also requires pulmonology clearance prior to [...] 05/14/2023 1:31 PM documented in this encounter [facility] 05-13-2023 Note Addended by: BRETT BERNAL on: 05/13/2023 09:07 AM Modules accepted: Orders [facility] 05-13-2023 Note Addended by: BRETT BERNAL on: 05/13/2023 09:07 AM Modules accepted: Orders [facility] 05-13-2023 Note Addended by: BRETT BERNAL on: 05/13/2023 09:07 AM Modules accepted: Orders [facility] 05-13-2023 Note Addended by: BRETT BERNAL on: 05/13/2023 09:07 AM Modules accepted: Orders [facility] 05-13-2023 Note Addended by: BRETT BERNAL on: 05/13/2023 09:07 AM Modules accepted: Orders T [facility] 05-13-2023 Telephone encounter Note Signed and printed orders Neuro clearance will be needed once we know name of provider- she has appt in May Psych clearance will defer to our psychologists to obtain records from Dr. Ga T [facility] 05-11-2023 Note Plan: I have recommended proceeding with the evaluation, workup and acquisition consultant preoperative consultations and testing for the primary procedure as outlined below: BARIATRIC AND METABOLIC SURGERY [facility] PATIENT SUMMARY Giovana Ledezma 72 [...] []Heme/Onc [x]Pain mgmt: Dr. Lin [x]Other: Dr. aG - psych ALSO - will need clearance [...] she has been compliant with, both in [place] and now in [place] She will need 6 months of physician [...] PATRICIO (Nurse Practitioner) Manjit Ga DO (Psychiatry) [facility] 05-11-2023 Note Addended by: Jerrell MORRIS on: 05/11/2023 08:06 AM Modules accepted: Orders [facility] 05-11-2023 Note Addended by: Jerrell MORRIS on: 05/11/2023 08:06 AM Modules accepted: Orders [facility] 05-11-2023 Note Addended by: Jerrell MORRIS on: 05/11/2023 08:06 AM Modules accepted: Orders [facility] 05-11-2023 Note Addended by: Jerrell MORRIS on: 05/11/2023 08:06 AM Modules accepted: Orders [facility] 05-11-2023 Note Addended by: Jerrell MORRIS on: 05/11/2023 08:06 AM Modules accepted: Orders [facility] 05-11-2023 Note Addended by: Jerrell MORRIS on: 05/11/2023 08:06 AM Modules accepted: Orders [facility] 05-11-2023 Miscellaneous Notes Addended by: MONICA MORRIS on: 05/11/2023 08:06 AM Modules accepted: Orders Orders pended, Pre op check list scanned to media. EGD order sent to ALS. Plan: I have recommended proceeding with the evaluation, workup and acquisition consultant preoperative consultations and testing for the primary procedure as outlined below: BARIATRIC AND METABOLIC SURGERY [facility] PATIENT SUMMARY Giovana Ledezma 72 y.o. female [...] she has been compliant with, both in [place] and now in [place] She will need 6 months of physician [...] Team: Leopoldo Baird as PCP - General Aedlina Lin DO (Addiction Medicine) Dejah Drew APRN - PATRICIO (Nurse Practitioner) Manjit Ga DO (Psychiatry) Initial New [facility] surgical patient Navigation & Financial Counseling [...] PRIMARY INSURANCE: Payor: [employer]ICARE / Plan: [employer] DUAL ADVANTAGE / Product Type: Medicare HMO [...] 1) Scheduled at new pt surgeon visit: Renal Case Manager (RD) for a Nutrition Assessment (BNA) and [...] and after surgery. documented in this encounter [facility] [employer] 05-11-2023 Telephone encounter Note Orders pended, Pre op check list scanned to media. EGD order sent to ALS. [facility] [employer] 05-11-2023 Telephone encounter Note Plan: I have recommended proceeding with the evaluation, workup and acquisition consultant preoperative consultations and testing for the primary procedure as outlined below: BARIATRIC AND METABOLIC SURGERY [facility] PATIENT SUMMARY Giovana Ledezma 72 y.o. [...] [x] Others [] []Heme/Onc [x]Pain mgmt: Dr. Lni [x]Other: Dr. Ga - psych ALSO - [...] she has been compliant with, both in [place] and now in [place] She will need 6 months of physician [...] PATRICIO (Nurse Practitioner) Manjit Ga DO (Psychiatry) [facility] 04-30-2023 Note Initial New [facility] surg [...] PRIMARY INSURANCE: Payor: [employer]ARE / Plan: [employer] DUAL ADVANTAGE / Product Type: Medicare HMO [...] 1) Scheduled at new pt surgeon visit: Renal Case Manager (RD) for a Nutrition Assessment (BNA) and [...] and lab/testing results before and after surgery. [facility] 04-30-2023 Telephone encounter Note Initial New [facility] surgical patient Navigation & Financial Counseling [...] [] YES [] NO PRIMARY INSURANCE: Payor: [facility] MEDICARE / Plan: [facility] / Product Type: Medicare HMO [...] 1) Scheduled at new pt surgeon visit: Renal Case Manager (RD) for a Nutrition Assessment (BNA) and [...] and lab/testing results before and after surgery. [facility] 04-30-2023 History of Present illness Narrative Images from the original note were not included. [facility] SURGICAL PROGRAM INITIAL EVALUATION [...] Vickie general CHOLECYSTECTOMY 2019 laparoscopic -[place] HYSTERECTOMY [facility] Social History: This patient is unaccompanied [...] I advised them to discuss with their physician/antique auto museum maintenance worker regarding contraception to prevent during this period of time after surgery. In addition, all patients were counseled on compliance with prescribed vitamin supplementation, office visit follow-up and compliance with program standards. Plan: I have recommended proceeding with the evaluation, workup and acquisition consultant preoperative consultations and testing for the primary procedure as outlined below: BARIATRIC AND METABOLIC SURGERY [facility] PATIENT SUMMARY Giovana Ledezma 72 [...] she has been compliant with, both in [place] and now in [place] She will need 6 months of physician [...] DO (Addiction Medicine) Dejah Drew APRN - CHLORINE CELL TENDER (Nurse Practitioner) Manjit Ga DO (Psychiatry) [facility] SURGICAL WEIGHT LOSS MANAGEMENT PROGRAM Rooming Note [...] see TE created documented in this encounter [facility] 12-18-2022 History of Present illness Narrative [...] PHONE with this provider practicing within the [facility] [place]. The identity of Jacklyn Abraham was verified [...] and eating well, mood stable, busy with restorationist and groups. No hallucinations, still lost track [...] AM Final 11/17/2022 12:07 PM NA Facility: [facility] Specimen Source: NA Admitting Provider: Ordered Date: [...] 3/uL NUCLEATED RBC 0 0-5 Performed By: [facility] [address] [place], [place], [address] Basic Metabolic Profile (BMP) Date Collected Date Received Status Reported/Status Changed Priority 11/17/2022 9:22 AM 11/17/2022 9:22 AM Final 11/17/2022 12:32 PM NA Facility: [facility] Specimen Source: NA Admitting Provider: Ordered Date: [...] 21.0-32.0 mmol/L GAP 5 5-15 Performed By: [facility] [address] 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 4.) [x] Physician/PIPELINES SUPERINTENDENT Order: See PharmD , tail sawyer to document data and make observations of the patient, including observations of physical and mental health symptoms, medication response, side effects and adherence, as well as education. RN will assess patient's health status, provide education with pill boxes and/or administer long-acting injections per orders. documented in this encounter [employer] Work Phone: 12-02-2022 History of Present illness Narrative Jacklyn Powell engaged in a telehealth session via PHONE with this provider practicing within the [facility]. The identity of Jacklyn Abraham was verified [...] -Prazosin 1mg tablet: 3T PO HS -Called [facility] to verify it patient receiving medications, patient last got her medications in an adherence pack on 11/07/2022 (likely billed as keys so it won't show up in the dispense report) *Sublocade 100mg/0.5mL: OARRS LF 11/27/22 (prescribed by Adelina Lin DO in [place]) SUBJECTIVE: Spoke with this patient today for a refill appointment, patient has a PMH of bipolar disorder, DID, and severe linnea. She is switching care to a new psychiatrist closer to her home in [place], but her appointment is not until late [...] time. Gets medications in adherence packaging via [facility] in [place]; denies recent missed doses. Medications: Current Outpatient [...] cups of coffee per day PCP: In [place] Pharmacy: [facility] in [place] Vaccinations: Received annual flu on 08/27/22; no [...] Tova Bates PharmD documented in this encounter [facility] [employer] Work Phone: 09-02-2021 Miscellaneous Notes CD / reports READY FOR TAG WRITER AT [facility] Patient wants a copy of the xray from 08/29/2021 and report. Patient will pharmacy picking technician on Thursday. Thank you, Blanche documented in this encounter [facility] 08-29-2021 Note HNO ID: [id number] Author: Nory Hutchinson APRN.CHLORINE CELL TENDER Service: ? Author Type: Nurse Practitioner Type: Procedures Filed: 08/29/2021 6:43 PM Note Text: ED PROCEDURE NOTE: Splinting The risks, benefits, alternatives, and personnel discussed with patient or unit support representative who consents to the procedure. The [...] managed with no additional personell Nory Hutchinson APRN.CHLORINE CELL TENDER [facility] 08-29-2021 Note HNO ID: [id number] Author: Lilly Thompson RT(R) Service: Nuclear Medicine Author Type: Technologist Type: [...] RT Desean(R) August 29, 2021 5:27 PM [facility] 08-29-2021 Note HNO ID: [id number] Author: Nory Hutchinson APRN.PATRICIO Service: ? Author Type: Nurse Practitioner Type: Progress Notes Filed: 08/29/2021 6:43 PM Note Text: This note was created using NoteWriter. Subjective Giovana Powell is a 71 year [...] history is provided by the patient. No director speech language was used. Fall The accident occurred 3 [...] Times 3 - COLONOSCOP W/ OR W/O [facility] SPEC 06/27/11 - COLONOSCOP W/ OR W/O [facility] SPEC 11/24/14 poor prep -5 [...] tablet Take 1 (more content not included)... [facility] documented as of this encounter (statuses as of 04/16/2022) [facility] Diagnosis Bipolar disorder with psychotic features ([facility])- Primary Dissociative identity disorder ([facility]) Dissociative identity disorder documented in this encounter [facility] [employer] Work Phone: Evaluation note* Diagnosis Bipolar disorder with psychotic features ([facility])- Primary Dissociative identity disorder (HCC-CMS) Dissociative identity disorder Opioid use disorder, moderate, on maintenance therapy ([facility]) documented in this encounter [facility] Work Phone: Evaluation note* Diagnosis Tobacco use disorder- Primary Primary hypertension Unspecified essential hypertension Prediabetes Other abnormal glucose Morbid obesity with BMI of 40.0-44.9, adult ([facility]) JENNIFER (obstructive sleep apnea) Obstructive sleep apnea (adult) (pediatric) High cholesterol Pure hypercholesterolemia History of substance abuse (CMS/HCC) ([facility]) Other, mixed, or unspecified nondependent drug abuse, unspecified documented in this encounter [facility]* Diagnosis Chronic obstructive pulmonary disease, unspecified COPD type (HCC)- Primary Primary hypertension Unspecified essential hypertension Gastroesophageal reflux disease, unspecified whether esophagitis present Tobacco use disorder JENNIFER (obstructive sleep apnea) Obstructive sleep apnea (adult) (pediatric) High cholesterol Pure hypercholesterolemia Morbid obesity with BMI of 40.0-44.9, adult (HCC) Functional dyspepsia Dyspepsia and other specified disorders of function of stomach documented in this encounter [facility]* Diagnosis Morbid obesity due to excess calories (HCC)- Primary Hypertension, unspecified type Functional dyspepsia Dyspepsia and other specified disorders of function of stomach documented in this encounter [facility]* Diagnosis Prediabetes- Primary Other abnormal glucose Gastroesophageal reflux disease, unspecified whether esophagitis present Functional dyspepsia Dyspepsia and other specified disorders of function of stomach documented in this encounter [facility]* Diagnosis GERD (gastroesophageal reflux disease)- Primary Esophageal reflux Functional dyspepsia Dyspepsia and other specified disorders of function of stomach Morbid obesity with BMI of 40.0-44.9, adult ([facility]) Chronic superficial gastritis without bleeding JENNIFER (obstructive sleep apnea) Obstructive sleep apnea (adult) (pediatric) documented in this encounter [facility]* Diagnosis BMI 40.0-44.9, adult (HCC)- Primary Gastroesophageal reflux disease, unspecified whether esophagitis present Class 3 severe obesity with serious comorbidity and body mass index (BMI) of 40.0 to 44.9 in adult, unspecified obesity type (HCC) documented in this encounter [facility]* Diagnosis Chronic obstructive pulmonary disease, unspecified COPD type (HCC)- Primary Encounter for pre-operative respiratory clearance JENNIEFR (obstructive sleep apnea) Obstructive sleep apnea (adult) (pediatric) Smoker Tobacco use disorder Morbid obesity (HCC) Morbid obesity documented in this encounter [facility]* Diagnosis Morbid obesity due to excess calories (HCC)- Primary Hypertension, unspecified type documented in this encounter [facility]* Diagnosis Chronic obstructive pulmonary disease, unspecified COPD type (HCC)- Primary Primary hypertension Unspecified essential hypertension Gastroesophageal reflux disease, unspecified whether esophagitis present Tobacco use disorder JENNIFER (obstructive sleep apnea) Obstructive sleep apnea (adult) (pediatric) High cholesterol Pure hypercholesterolemia Morbid obesity with BMI of 40.0-44.9, adult (HCC) documented in this encounter [facility] note* Diagnosis Morbid obesity due to excess calories (HCC)- Primary Hypertension, unspecified type documented in this encounter [facility] note* Diagnosis Vitamin D deficiency- Primary Low vitamin B12 level High blood magnesium level Disorders of magnesium metabolism documented in this encounter [facility] note* Diagnosis Morbid obesity due to excess calories (HCC)- Primary Hypertension, unspecified type documented in this encounter [facility] note* Diagnosis Chronic obstructive pulmonary disease, unspecified COPD type (HCC)- Primary Primary hypertension Unspecified essential hypertension Gastroesophageal reflux disease, unspecified whether esophagitis present Tobacco use disorder JENNIFER (obstructive sleep apnea) Obstructive sleep apnea (adult) (pediatric) High cholesterol Pure hypercholesterolemia Morbid obesity with BMI of 40.0-44.9, adult (HCC) documented in this encounter [facility] note* Diagnosis Prediabetes- Primary Other abnormal glucose Gastroesophageal reflux disease, unspecified whether esophagitis present documented in this encounter [facility] note* Diagnosis Morbid obesity due to excess calories (HCC)- Primary Hypertension, unspecified type documented in this encounter [facility] note* Diagnosis Chronic obstructive pulmonary disease, unspecified COPD type (HCC)- Primary Primary hypertension Unspecified essential hypertension Gastroesophageal reflux disease, unspecified whether esophagitis present Tobacco use disorder JENNIFER (obstructive sleep apnea) Obstructive sleep apnea (adult) (pediatric) High cholesterol Pure hypercholesterolemia Morbid obesity with BMI of 40.0-44.9, adult (HCC) documented in this encounter [facility] [place] Discharge instructions* Attachments The following attachments cannot be sent through Care Everywhere. * Upper GI Endoscopy Discharge Instructions (Nepali) documented in this [facility] for referral (narrative)* Consultation (Routine) - Pending Review Specialty Diagnoses / Procedures Referred By Kori kirkpatrick Referred To Contact Pulmonary Disease / Pulmonology Diagnoses Chronic obstructive pulmonary disease, unspecified COPD type (HCC) Tobacco use disorder JENNIFER (obstructive sleep apnea) Morbid obesity with BMI of 40.0-44.9, adult (HCC) Procedures IN OFFICE/OUTPATIENT [facility] 60-74 MINUTES Brett Bernal PA [address] [place] [address] [facility] [address] [place] [address] Referral ID Status Reason Start Date Expiration Date Visits Requested Visits Authorized [id number] Pending Review Specialty Services Required 05/13/2023 05/12/2024 [...] Brett Bernal PA [address] [place] [address] [facility] Cf Card [address] [place] [address] Referral ID Status Reason Start Date Expiration Date Visits Requested Visits Authorized [id number] Pending Review Specialty Services Required 05/13/2023 05/12/2024 [...] FoundDocuments on File Type Date Recorded Patient Respite Provider Expl anation Advance Directive(s) 01/22/2017 9:46 AM [...] Paul MD [address] [place] [address] Referral ID Status Reason Start Date Expiration Date V isits Requested Visits Authorized [id number] Incomplete 06/25/2023 12/22/2023 1 1 Specialty Diagnoses / Procedures Referred By Contac t Referred To Contact Kareem Hartmann MD [address] [place] [address] Referral ID Status Reason Start Date Expiration Date V isits Requested Visits Authorized [id number] Pending Review 1 1 Referral ID Status Reason Start Date Expiration Date V isits Requested Visits Authorized [id number] Pending Review 1 1 Referral ID Status Reason Start Date Expiration Date V isits Requested Visits Authorized [id number] Authorized 1 1 Referral ID Status Reason Start Date Expiration Date Visits Re quested Visits Authorized [id number] Closed 1 1 Additional Source Comments INFORMATION SOURCE (unrecogn ized section and content) DATE CREATED AUTHOR AUTHOR'S ORGANIZ ATION 01/04/2019 [facility] DATE CREATED AUTHOR AUTHOR'S ORGANIZ ATION 02/19/2019 [facility] DATE CREATED AUTHOR AUTHOR'S ORGANIZ ATION 10/04/2020 [facility] DATE CREATED AUTHOR AUTHOR'S ORGANIZ ATION 12/12/2020 [facility] DATE CREATED AUTHOR AUTHOR'S ORGANIZ ATION 04/17/2022 [facility] DATE CREATED AUTHOR AUTHOR'S ORGANIZ ATION 10/10/2023 [facility] DATE CREATED AUTHOR AUTHOR'S ORGANIZ ATION 10/18/2023 [facility] Source Comments (unrecognize d section and content) In the event this informatio n is protected by the Federal Confidentiality of Alcohol and Drug Abuse Patient Records regulations: The Federal rules restrict any use of the information to criminally investigate or prosecute any alcohol or drug abuse patient.[facility] Reason for Visit (unrecogniz ed section and content) Reason Comments Medication Management Telehealth (Audio) Follow Up Reason Comments Follow Up For evaluation of mo od Telehealth (Audio) Reason Comments Surgical Consult New Surg Specialty Diagnoses / Procedures Referred By Kori kirkpatrick Referred To Contact Bariatric Surgery / Bariatrics Diagnoses Obesity, unspecified Procedures eval n treat Dejah Drew, PIPELINES SUPERINTENDENT - CHLORINE CELL TENDER [address] [place] [address] [facility] [address] [place] [address] Referral ID Status Reason Start Date Expiration Date V isits Requested Visits Authorized [id number] Pending Review 03/17/2023 03/16/2024 1 1 Reason [...] Ledezma MD [address] [place] [address] [facility] [address] [place] [address] Referral ID Status Reason Start Date Expiration Date Visits Re quested Visits Authorized [id number] 1 1 Reason Comments Weight Loss D/E [...] Care Teams (unrecognized sec tion and content) Attorney Law Clerk Relationship Specialty Start Date End Date AlvinohaileyLeopoldo [address] [place] [address] PCP - General 12/05/20 Adelina Lin DO [address] [place] [phone] Addiction Medicine 04/30/23 Dejah Drew APRN - [facility] [address] [place] [address] [address] [place] [phone] Nurse Practitioner 04/30/23 Manjit Ga DO [address] [place] [address] Psychiatry 04/30/23 Attorney Law Clerk Relationship Specialty Start Date End Date Leopoldo Baird [address] [place], [place] [address] PCP - General 12/05/20 Adelina Lin DO [address] [place] [phone] Addiction Medicine 04/30/23 Dejah Drew APRN [facility] [address] [place] [address] [address] [place] [address] Nurse Practitioner 04/30/23 Manjit Ga DO [address] [place] [address] Psychiatry 04/30/23 Susie Ledezma MD [address] [place] [address] [address] [place] [address] Surgeon General Surgery 05/11/23 Attorney Law Clerk Relationship Specialty Start Date End Date AlvinoangeliLeopoldo perez [address] [place], [place] [phone] PCP - General 12/05/20 Adelina Lin DO [address] [place] [phone] Addiction Medicine 04/30/23 Dejah Drew APRN - CHLORINE CELL TENDER [address] [facility] [address] [place] [address] Nurse Practitioner 04/30/23 Manjit Ga DO [address] [place] [address] Psychiatry 04/30/23 Susie Ledezma MD [address] [place] [id number] Surgeon General Surgery 05/11/23 Attorney Law Clerk Relationship Specialty Start Date End Date AlvinoangeliLeopoldo perez [address] [place] [phone] PCP - General Internal Medicine 06/03/23 Adelina Lin DO [address] [place] [phone] Addiction Medicine 04/30/23 Dejah Drew APRN - CHLORINE CELL TENDER [address] [facility] [address] [place] [address] Nurse Practitioner 04/30/23 Manjit Ga DO [address] [place] [address] Psychiatry 04/30/23 Susie Ledezma MD [address] [facility] [address] [place] [address] Surgeon General Surgery 05/11/23 Attorney Law Clerk Relationship Specialty Start Date End Date Leopoldo Baird [address] [facility] [address] [place] [address] PCP - General Internal Medicine 06/03/23 Adelina Lin DO [address] [place] [address] Addiction Medicine 04/30/23 Dejah Drew PIPELINES SUPERINTENDENT - CHLORINE CELL TENDER [address] [place] [address] [address] [place] [address] Nurse Practitioner 04/30/23 Manjit Ga DO [address] [place] [phone] Psychiatry 04/30/23 Susie Ledezma MD [address] [place] [address] [address] [place] [address] Surgeon General Surgery 05/11/23 Attorney Law Clerk Relationship Specialty Start Date End Date Alvinohailey Nicholeamanda Saldana [address] [facility] [address] [place] [address] PCP - General Internal Medicine 06/03/23 Adelina Lin DO [address] [place] [phone] Addiction Medicine 04/30/23 Dejah Drew PIPELINES SUPERINTENDENT - CHLORINE CELL TENDER [address] [facility] [address] [place] [phone] Nurse Practitioner 04/30/23 Manjit Ga DO [address] [place] [address] Psychiatry 04/30/23 Susie Ledezma MD [address] [place] [address] [address] [place] [address] Surgeon General Surgery 05/11/23 Attorney Law Clerk Relationship Specialty Start Date End Date Leopoldo Baird [address] [facility] [address] [place] [address] PCP - General Internal Medicine 06/03/23 Adelina Lin DO [address] [place] [phone] Addiction Medicine 04/30/23 Dejah Drew APRN - CHLORINE CELL TENDER [address] [facility] [address] [place] [address] Nurse Practitioner 04/30/23 Manjit Ga DO [address] [place] [address] Psychiatry 04/30/23 Susie Ledezma MD [address] [place] [address] [address] [place] [address] Surgeon General Surgery 05/11/23 Attorney Law Clerk Relationship Specialty Start Date End Date Leopoldo Baird [address] [facility] [address] [place] [phone] PCP - General Internal Medicine 06/03/23 Adelina Lin DO [address] [place] [phone] Addiction Medicine 04/30/23 Dejah Drew APRN - CHLORINE CELL TENDER [address] [facility] [address] [place] [address] Nurse Practitioner 04/30/23 Manjit Ga DO [address] [place] [address] Psychiatry 04/30/23 Susie Ledezma MD [address] [facility] [address] [place] [address] Surgeon General Surgery 05/11/23 Attorney Law Clerk Relationship Specialty Start Date End Date Leopoldo Baird [address] [facility] [address] [place] [phone] PCP - General Internal Medicine 06/03/23 Adelina Lin DO [address] [place] [address] Addiction Medicine 04/30/23 Dejah Drew APRN - CHLORINE CELL TENDER [address] [facility] [address] [place] [address] Nurse Practitioner 04/30/23 Manjit Ga DO [address] [place] [address] Psychiatry 04/30/23 Susie Ledezma MD [address] [facility] [address] [place] [address] Surgeon General Surgery 05/11/23 Attorney Law Clerk Relationship Specialty Start Date End Date Leopoldo Baird PCP - General 12/05/20 06/02/23 Leopoldo Baird [address] [facility] [address] [place] [phone] PCP - General Internal Medicine 06/03/23 Adelina Lin DO [address] [place] [phone] Addiction Medicine 04/30/23 Dejah Drew APRN - CHLORINE CELL TENDER [address] [place] [phone] Nurse Practitioner 04/30/23 Manjit Ga DO [address] [place] [address] Psychiatry 04/30/23 Susie Ledezma MD [address] [place] [address] Surgeon General Surgery 05/11/23 Attorney Law Clerk Relationship Specialty Start Date End Date Leopoldo Baird [address] [facility] [address] [place] [address] PCP - General Internal Medicine 06/03/23 Adelina Lin DO [address] [place] [phone] Addiction Medicine 04/30/23 Dejah Drew APRN - CHLORINE CELL TENDER [address] [facility] [address] [place] [address] Nurse Practitioner 04/30/23 Manjit Ga DO [address] [place] [address] Psychiatry 04/30/23 Susie Ledezma MD [address] [place] [address] [address] [place] [address] Surgeon General Surgery 05/11/23 Attorney Law Clerk Relationship Specialty Start Date End Date Leopoldo Baird [address] [facility] [address] [place] [address] PCP - General Internal Medicine 06/03/23 Adelina Lin DO [address] [place] [address] Addiction Medicine 04/30/23 Dejah Drew APRN - CHLORINE CELL TENDER [address] [place] [address] [address] [place] [address] Nurse Practitioner 04/30/23 Manjit Ga DO [address] [place] [place] [address] Psychiatry 04/30/23 Susie Ledezma MD [address] [place] [address] [address] [place] [address] Surgeon General Surgery 05/11/23 Attorney Law Clerk Relationship Specialty Start Date End Date AlvinohaileyVitaliyhughkadie Saldana [address] [facility] [address] [place] [address] PCP - General Internal Medicine 06/03/23 Adelina Lin DO [address] [place] [phone] Addiction Medicine 04/30/23 Dejah Drew APRN - CHLORINE CELL TENDER [address] [place] [address] [address] [place] [address] Nurse Practitioner 04/30/23 Manjit Ga DO [address] [place] [address] Psychiatry 04/30/23 Susie Ledezma MD [address] [place] [address] [address] [place] [address] Surgeon General Surgery 05/11/23 Attorney Law Clerk Relationship Specialty Start Date End Date Leopoldo Baird [address] [place] [address] PCP - General Internal Medicine 06/03/23 Adelina Lin DO [address] [place] [phone] Addiction Medicine 04/30/23 Dejah Drew APRN - CHLORINE CELL TENDER [address] [facility] [address] [place] [phone] Nurse Practitioner 04/30/23 Manjit Ga DO [address] [place] [address] Psychiatry 04/30/23 Susie Ledezma MD [address] [place] [address] [address] [place] [address] Surgeon General Surgery 05/11/23 Attorney Law Clerk Relationship Specialty Start Date End Date Leopoldo Baird [address] [place] [address] PCP - General Internal Medicine 06/03/23 Adelina Lin DO [address] [place] [address] Addiction Medicine 04/30/23 Dejah Drew APRN - CHLORINE CELL TENDER [address] [place] [phone] Nurse Practitioner 04/30/23 Manjit Ga DO [address] [place] [address] Psychiatry 04/30/23 Susie Ledezma MD [address] [place] [address] [address] [place], [place] [id number] Surgeon General Surgery 05/11/23 Attorney Law Clerk Relationship Specialty Start Date End Date Leopoldo Baird PCP - General 12/05/20 06/02/23 Leopoldo Baird [address] [place] [address] PCP - General Internal Medicine 06/03/23 Adelina Lin DO [address] [place] [address] Addiction Medicine 04/30/23 Dejah Drew APRN - CNP [address] [place] [address] Nurse Practitioner 04/30/23 Manjit Ga DO [address] [place] [address] Psychiatry 04/30/23 Susie Ledezma MD [address] [place] [address] [address] [place], [place] [id number] Surgeon General Surgery 05/11/23 Attorney Law Clerk Relationship Specialty Start Date End Date Leopoldo Baird [address] [facility] [address] [place] [phone] PCP - General Internal Medicine 06/03/23 Adelina Lin DO [address] [place] [phone] Addiction Medicine 04/30/23 Dejah Drew APRN - CHLORINE CELL TENDER [address] [facility] [address] [place] [address] Nurse Practitioner 04/30/23 Manjit Ga DO [address] [place] [address] Psychiatry 04/30/23 Susie Ledezma MD [address] [place] [address] Surgeon General Surgery 05/11/23 Attorney Law Clerk Relationship Specialty Start Date End Date Leopoldo Baird [address] [facility] [address] [place] [phone] PCP - General Internal Medicine 06/03/23 Adelina Lin DO [address] [place] [phone] Addiction Medicine 04/30/23 Dejah Drew APRN - CHLORINE CELL TENDER [address] [facility] [address] [place] [phone] Nurse Practitioner 04/30/23 Manjit Ga DO [address] [place] [address] Psychiatry 04/30/23 Susie Ledezma MD [address] [place] [address] [address] [place] [address] Surgeon General Surgery 05/11/23 Attorney Law Clerk Relationship Specialty Start Date End Date Leopoldo Baird PCP - General 12/05/20 06/02/23 Leopoldo Baird [address] [facility] [address] [place] [address] PCP - General Internal Medicine 06/03/23 Adelina Lin DO [address] [place] [address] Addiction Medicine 04/30/23 Dejah Drew APRN - CNP [address] [facility] [address] [place] [address] Nurse Practitioner 04/30/23 Manjit Ga DO [address] [place] [address] Psychiatry 04/30/23 Susie Ledezma MD [address] [place] [address] [address] [place] [address] Surgeon General Surgery 05/11/23 Continuous Active and [...] BE BASED ON THE PRIMARY CLINICAL RECORDS. [facility] [employer] [facility]. provides no warranty or guarantee of the accuracy or completeness of information in this document.
== END | disposition home or self-care (01) ==
LOC: CT 07:46
PROVIDERS: PCP Internal Medicine; Referring Provider Physician Assistant; Visit Provider Physician Assistant
DX: M25.552 Pain in left hip (principal)
CPT/HCPCS: 72192

== ENCOUNTER → 2024-01-07 | Outpatient (CLI) | payer MEDICARE, MEDICAID, SELFPAY ==
--- NOTE | 2024-01-07 08:07 | CT_ITS ---
STUDY: LOW DOSE CT LUNG CANCER SCREENING REASON FOR EXAM: Female, 73 years old. Nicotine dependence, unspecified, uncomplicated. Former smoker. Patient smoked 1 pack per day for 30 years. COPD. RADIATION DOSAGE (If Supplied By Facility): CTDIvol = ( 4.02 ) mGy, DLP = ( 126.87 ) mGycm TECHNIQUE: No contrast was administered. Low dose technique was utilized (average mAS-38 and kVp 120). 1.25 mm axial source images with a slice interval of 1.25-mm were reconstructed in lung windows. 2.5 mm axial source images with a slice interval of 2.5-mm were reconstructed in lung windows. 5.0 mm axial source images with a slice interval of 5.0-mm were reconstructed in soft tissue windows. COMPARISON: Comparison is made with prior study August 01, 2022. NODULES: Small calcified granuloma in the right lower lobe. Scarring at the lung bases slightly more prominent on the right side. Emphysema: No significant emphysematous changes are seen. Endobronchial lesion: None Aorta: Atherosclerotic plaque formation of the aortic arch. CORONARY ARTERIES: Coronary artery calcification is seen. Heart: Unremarkable Pulmonary artery: Portable Mediastinal nodes: Calcified subcarinal lymph nodes. Calcified right hilar lymph node. Other chest and abdominal findings: CT/Low Dose CT Lung Screening IMPRESSION: Lung-RADS category 2 - Continue annual screening with LDCT in 12 months. IMPORTANT NOTES FOR USE: ACR Lung-RADS Version 1.1 Assessment Categories Release Date: 2018 Category: Coded 0-4 bases on nodule(s) with highest degree of suspicion. Negative screen is defined as categories 1 and 2; a positive screen is defined as categories 3 and 4. Category 3 and 4A nodules that are unchanged on interval CT should be coded as category 2, and individuals returned to screening in 12 months. Category 4X: Category 3 or 4 nodules with additional imaging findings that increase the suspicion of lung cancer, such as spiculation, GGN that doubles in size in 1 year, enlarged lymph notes, etc. Category Modifiers: S (significant finding unrelated to lung cancer) Electronically Signed: Wil Ortega MD at 15:39 EDT ,
== END | disposition home or self-care (01) ==
LOC: CT 08:06
PROVIDERS: PCP Internal Medicine; Referring Provider Internal Medicine; Visit Provider Internal Medicine
DX: Z87.891 Personal history of nicotine dependence (principal)
CPT/HCPCS: 71271

== ENCOUNTER → 2024-01-21 | Outpatient (CLI) | payer MEDICARE, MEDICAID, SELFPAY ==
[2024-01-21 14:17] LABS: Anion Gap 5 (5-15); BUN 20 mg/dL (7-18); BUN/Creat Ratio 24.3 RATIO (10-20); Calcium,Total 9.8 mg/dL (8.5-10.1); Chloride 105 mmol/L (98-107); Creatinine, Serum 0.82 mg/dL (0.55-1.02); EST Glomerular Filtration Rate 73 mL/min (>60); Est Glom Filt Rate - Afr Amer 88 mL/min (>60); Glucose 161 mg/dL (74-106); Potassium 4.9 mmol/L (3.5-5.1); Sodium Level 139 mmol/L (136-145)
== END | disposition home or self-care (01) ==
LOC: BIMLAB 13:24
PROVIDERS: PCP Internal Medicine; Referring Provider Internal Medicine; Visit Provider Internal Medicine
DX: E11.9 Type 2 diabetes mellitus without complications (principal)
CPT/HCPCS: 36415; 80048; 82140

== ENCOUNTER → 2024-01-28 | Outpatient (CLI) | payer MEDICARE, MEDICAID, SELFPAY ==
[2024-01-28 16:24] LABS: Bacteria 0 SEEN /hpf (None Seen); Mucous, Urine 0 SEEN /hpf (<or=2+); White Blood Cells 0 SEEN /hpf (0-5)
[2024-01-28 16:45] LABS: Absolute Lymphocyte Count 2.52 X10^3/uL (0.83-4.51); Absolute Neutrophil Count 9.6 X10^3/uL (2.0-7.7); Basophil# 0.05 X10^3/uL; Basophil% 0.4 % (0-1); Eosinophil# 0.06 X10^3/uL; Eosinophils% 0.4 % (0-5); Hematocrit 39.5 % (37-47); Hemoglobin 12.7 g/dL (12.0-15.0); Lymphocyte # 2.52 X10^3/ul (0.83-4.51); Lymphocyte % 18.5 % (19-41); Mean Corp Hgb Conc 32.2 g/dL (32-36); Mean Corpuscular Hgb 31.1 pg (27.0-32.0); Mean Corpuscular Volume 96.6 fL (81-99); Mean Platelet Vol. 9.3 fl (6.2-12.0); Monocyte# 1.02 X10^3/uL; Monocyte% 7.5 % (0-10); NRBC Flagged by Analyzer 0 % (0-5); Neutrophil # 9.56 X10^3/uL (2.7-7.7); Neutrophil % 70.2 % (47-70); Platelet Count 567 K/mm3 (150-450); RBC Distribution Width CV 14.1 % (11.6-14.6); RBC Distribution Width SD 49.9 fl (35.1-43.9); Red Blood Count 4.09 M/mm3 (4.2-5.4); White Blood Count 13.6 K/mm3 (4.4-11.0)
[2024-01-28 17:02] LABS: Color, Urine Yellow (Yellow); Glucose, Dipstick Normal (Normal); Ketone-Dipstick Negative (Negative); Leukocyte Esterase-Dipstick Negative /ul (Negative); Nitrite-Dipstick Negative (Negative); Occult Blood-Urine 10 /ul (Negative); Protein-Dipstick Negative (Negative); Specific Gravity, Urine 1.005 (1.002-1.030); Urine Bilirubin Dipstick Negative (Negative); Urine Clarity Clear (Clear); Urine Urobilinogen Normal (Normal)
[2024-01-28 17:10] LABS: Red Blood Cells-Urine 0-5 SEEN /hpf (0-5); Squamous Epithelial Cells - UA 0-5 SEEN /hpf (5-10)
[2024-01-28 17:29] LABS: AST(SGOT) 15 U/L (15-37); Alanine Aminotransfer ALT/SGPT 25 U/L (13-56); Albumin, Serum 3.2 g/dL (3.2-5.0); Alkaline Phosphatase 74 U/L (45-117); Anion Gap 6 (5-15); BUN 21 mg/dL (7-18); BUN/Creat Ratio 20.2 RATIO (10-20); Calcium,Total 9.1 mg/dL (8.5-10.1); Chloride 101 mmol/L (98-107); Creatinine, Serum 1.04 mg/dL (0.55-1.02); EST Glomerular Filtration Rate 55 mL/min (>60); Est Glom Filt Rate - Afr Amer 67 mL/min (>60); Globulin 3.3 g/dL (2.2-4.2); Glucose 117 mg/dL (74-106); Protein, Total 6.5 g/dL (6.4-8.2); Sodium Level 133 mmol/L (136-145); T4 Free Direct 0.96 ng/dL (0.76-1.46); Thyroid Stim Hormone (TSH) 0.88 uIU/mL (0.358-3.74)
== END | disposition home or self-care (01) ==
LOC: BIMLAB 15:33
PROVIDERS: PCP Internal Medicine; Referring Provider Internal Medicine; Visit Provider Internal Medicine
DX: E72.20 Disorder of urea cycle metabolism, unspecified (principal); I10 Essential (primary) hypertension; R53.81 Other malaise; R53.83 Other fatigue
CPT/HCPCS: 36415; 80053; 81001; 82140; 84439; 84443; 85025

== ENCOUNTER → 2024-02-01 | Outpatient (CLI) | payer MEDICARE, MEDICAID, SELFPAY | END | disposition home or self-care (01) | LOC: MTLAB 15:06 | PROVIDERS: PCP Internal Medicine; Referring Provider Psychiatry & Neurology Neurology; Visit Provider Psychiatry & Neurology Neurology | DX: G40.909 Epilepsy, unspecified, not intractable, without status epilepticus (principal) | CPT/HCPCS: 36415; 82542 ==

== ENCOUNTER → 2024-02-26 | Outpatient (CLI) | payer MEDICARE, MEDICAID, SELFPAY ==
[2024-02-26 11:24] LABS: Absolute Lymphocyte Count 2.22 X10^3/uL (0.83-4.51); Absolute Neutrophil Count 10.5 X10^3/uL (2.0-7.7); Basophil# 0.05 X10^3/uL; Basophil% 0.4 % (0-1); Eosinophil# 0.12 X10^3/uL; Eosinophils% 0.9 % (0-5); Hematocrit 39.7 % (37-47); Hemoglobin 12.9 g/dL (12.0-15.0); Lymphocyte # 2.22 X10^3/ul (0.83-4.51); Lymphocyte % 15.9 % (19-41); Mean Corp Hgb Conc 32.5 g/dL (32-36); Mean Corpuscular Hgb 30.8 pg (27.0-32.0); Mean Corpuscular Volume 94.7 fL (81-99); Mean Platelet Vol. 8.9 fl (6.2-12.0); Monocyte# 0.77 X10^3/uL; Monocyte% 5.5 % (0-10); NRBC Flagged by Analyzer 0 % (0-5); Neutrophil # 10.46 X10^3/uL (2.7-7.7); Neutrophil % 75.1 % (47-70); Platelet Count 585 K/mm3 (150-450); RBC Distribution Width CV 14.5 % (11.6-14.6); RBC Distribution Width SD 49.7 fl (35.1-43.9); Red Blood Count 4.19 M/mm3 (4.2-5.4); White Blood Count 13.9 K/mm3 (4.4-11.0)
[2024-02-26 12:12] LABS: AST(SGOT) 17 U/L (15-37); Alanine Aminotransfer ALT/SGPT 19 U/L (13-56); Albumin, Serum 3.4 g/dL (3.2-5.0); Alkaline Phosphatase 94 U/L (45-117); Anion Gap 8 (5-15); BUN 13 mg/dL (7-18); BUN/Creat Ratio 16.4 RATIO (10-20); Calcium,Total 9.7 mg/dL (8.5-10.1); Chloride 95 mmol/L (98-107); EST Glomerular Filtration Rate 76 mL/min (>60); Est Glom Filt Rate - Afr Amer 91 mL/min (>60); Globulin 3.5 g/dL (2.2-4.2); Glucose 105 mg/dL (74-106); Potassium 4.9 mmol/L (3.5-5.1); Protein, Total 6.9 g/dL (6.4-8.2); Sodium Level 131 mmol/L (136-145)
== END | disposition home or self-care (01) ==
LOC: BIMLAB 10:50
PROVIDERS: PCP Internal Medicine; Visit Provider Internal Medicine
DX: E87.1 Hypo-osmolality and hyponatremia (principal); D47.3 Essential (hemorrhagic) thrombocythemia; E72.20 Disorder of urea cycle metabolism, unspecified
CPT/HCPCS: 36415; 80053; 82140; 85025

== ENCOUNTER 2024-03-02 03:24 | Emergency (ER) | payer MEDICARE, MEDICAID, SELFPAY ==
[2024-03-02] VITALS (7 sets, daily range): BP systolic 156–169; BP diastolic 82–94; PULSE 82–94; RESP 15–20; TEMP 36–36.7; O2SAT 95–98; BMI 45.0
--- NOTE | 2024-03-02 03:32 | RAD_ITS ---
INDICATION: cough sob EXAMINATION/TECHNIQUE: X-RAY - XR Chest 2 Views COMPARISON: 01/29/2024. FINDINGS: LINES/DEVICES: None. LUNGS: Right basilar atelectasis versus infiltrate. Possible small right pleural effusion. No evidence of a pneumothorax. MEDIASTINUM AND CARDIOVASCULAR STRUCTURES: Cardiac silhouette is normal in size and contour. Calcified hilar lymph nodes. BONES AND SOFT TISSUES: No acute abnormality. RAD/Chest PA and Lateral IMPRESSION: Right basilar atelectasis versus infiltrate and possible small right pleural effusion. Electronically Signed: Hay Hooper DO at 4:26 EDT ,
--- NOTE | 2024-03-02 03:36 | EDS_ITS ---
HPI History of Present Illness Chief Complaint: Cough Informant: patient and EMS Narrative Narrative: 73-year-old female presents 3 AM for cough that has been worse than usual for the past 2 days. She states she has also been dyspneic, even when she is not coughing, but states she is here for the cough. She states she has had a cough ever since she got out of the hospital for COVID in September-October but this is worse. Occasionally productive. Chronic edema in her legs is actually better than usual. No fevers, chills, chest discomfort. Some nausea and vomiting for the past 2 days but she states the cough started before the vomiting. No abdominal pain or diarrhea. She has COPD, she admits to wheezing, but is unsure if this feels like her COPD or not. When asked if she tried her rescue inhaler, she states she does not own one because her COPD is not that bad, and I quit smoking. [facility] Medical History Cough Malaise and fatigue Increased ammonia level Skin ulcer of groin with fat layer exposed Skin ulcer of abdomen Hyponatremia Osteoporosis Substance abuse Diabetes Kidney disease Type 2 diabetes mellitus Primary osteoarthritis, left shoulder Morbid obesity Osteoarthritis Weight gain Debility Prediabetes Obesity (BMI 30-39.9) Epilepsy Tumors Drug abuse Back problem Bilateral lower extremity edema Anemia Rib pain on right side Atypical chest pain DDD (degenerative disc disease) Wears glasses Loose, teeth Cancer Arthritis Walker as ambulation aid Bladder disease Low iron High cholesterol Hepatitis Injury of back Injury of head and neck Seizures Dietary restriction Gastric reflux Shortness of breath on exertion History of edema History of stress test Hypertension Dermatitis Venous insufficiency of both lower extremities Hyponatremia Dizziness Urinary incontinence Frequent falls Left ankle pain Left wrist fracture Flu vaccine need Neoplasm of skin of nose Intertrigo Cutaneous candidiasis Abdominal pain Actinic keratoses Neoplasm of skin of eyelid Manic episode Neurofibroma of neck Intradermal nevus Hemangioma of face Benign neoplasm of skin of cheek Basal cell carcinoma of right medial cheek Basal cell carcinoma of upper lip Basal cell carcinoma of right forehead Multiple personalities Panic attacks History of UTI Kidney failure COPD (chronic obstructive pulmonary disease) Dissociative identity disorder Home Medications ?Medication ?Instructions ?Recorded ?Last Taken ?Type acetaminophen 650 mg 650 mg PO Q12H PRN pain 01/23/21 Unknown History tablet,extended release (Tylenol Arthritis Pain) Handicap Placard #1 ea 02/07/21 Unknown Rx inhalational spacing device #1 ea 06/26/21 Unknown Rx (POCKET CHAMBER spacer) ascorbic acid (vitamin C) 500 mg 500 mg PO DAILY vitamin 07/08/22 Unknown History capsule Incentive Spirometer #1 ea 08/05/22 Unknown Rx blood sugar diagnostic (FreeStyle #100 ea 07/15/23 Unknown Rx Lite Strips) lancets 28 gauge (FreeStyle #200 ea 07/15/23 Unknown Rx Lancets) denosumab 60 mg/mL subcutaneous 60 mg subcut [id number] bone health 09/25/23 Unknown Rx syringe (Prolia) #1 mL ferrous sulfate 324 mg (65 mg 324 mg PO Q OTHER DAY supplement 11/27/23 Unknown Rx iron) tablet,delayed release #90 tabs rosuvastatin 40 mg tablet 40 mg PO DAILY cholesterol #90 tabs 11/27/23 Unknown Rx metoprolol succinate 25 mg 25 mg PO QHS blood perssure #90 12/03/23 Unknown Rx tablet,extended release 24 hr tabs metoprolol succinate 50 mg 50 mg PO DAILY blood pressure #90 12/03/23 Unknown Rx tablet,extended release 24 hr tabs walker (Ultra-Light Rollator misc) #1 ea 12/10/23 Unknown Rx calcium carbonate 600 mg PO BID PRN supplement 12/11/23 Unknown History metformin 500 mg tablet,extended 500 mg PO BID diabetes #60 tabs 01/22/24 Unknown Rx release 24 hr hydralazine 100 mg tablet 100 mg PO TID blood pressure 3 01/28/24 Unknown Rx months #270 tabs sodium chloride 1,000 mg soluble 1,000 mg PO DAILY electrolyte 01/28/24 Unknown History tablet replenishment blood-glucose meter (FreeStyle #1 ea 01/29/24 Unknown Rx Lite Meter kit) fesoterodine 4 mg tablet,extended 4 mg PO DAILY bladder spasms #30 01/29/24 Unknown Rx release 24 hr tabs meloxicam 7.5 mg tablet 7.5 mg PO DAILY PRN pain #14 tabs 01/29/24 Unknown Rx mirabegron 50 mg tablet,extended 50 mg PO QDAY 01/29/24 Unknown History release 24 hr (Myrbetriq) divalproex 250 mg tablet,extended 250 mg PO BID #60 tabs 02/02/24 Unknown Rx release 24 hr lactulose 10 gram/15 mL oral 10 g (15 mL) PO TID laxative 02/03/24 Unknown Rx solution #1,350 mL lamotrigine 200 mg tablet 200 mg PO QHS depression #30 tabs 02/03/24 Unknown Rx Hospital Bed with 1/2 rails #1 ea 02/04/24 Unknown Rx mattress for hospital bed #1 ea 02/24/24 Unknown Rx cariprazine 1.5 mg capsule 1.5 mg PO Q24H depression #90 caps 02/25/24 Unknown Rx guaifenesin 600 mg tablet, See Rx Instructions PO BID #180 02/29/24 Unknown Rx extended release 12 hr (Mucinex) tabs albuterol sulfate 90 mcg/actuation 1 - 2 puff inhalation Q4H PRN PRN 03/02/24 Unknown Rx aerosol inhaler (Ventolin HFA) Wheezing ##1 levofloxacin 750 mg tablet 750 mg PO DAILY #5 tabs 03/02/24 Unknown Rx Allergy/AdvReac Type Severity Reaction Status Date / Time iloperidone (From Fanapt) Allergy Severe Other Verified 02/26/24 10:02 paliperidone (From Invega) Allergy Severe increased Verified 02/26/24 10:02 psychiatric symptoms lurasidone (From Latuda) Allergy Other Verified 02/26/24 10:02 trazodone AdvReac Severe Other Verified 02/26/24 10:02 theophylline AdvReac Other Verified 02/26/24 10:02 Family History Brother Colon cancer Lung cancer Aunt Obesity Sister Obesity Mother Rheumatoid arthritis Father Alzheimer disease Brother Alzheimer disease Surgical History H/O hernia repair H/O: hysterectomy History of 3 sections History of basal cell carcinoma excision History of History of carpal tunnel surgery History of cholecystectomy History of colonoscopy History of endoscopy History of excision of lesion History of hernia repair Social History Smoking Status: Former smoker Tobacco: How many years used: 20 how long ago did patient quit smoking: second hand exposure: No alcohol intake: never substance use type: former substance user Date of last use: Cocaine what type of physical activity do you participate in: none vince/quaker: Uatsdin seatbelt use: always ROS ROS ED Constitutional Constitutional ED: Denies chills or fever(s) Eyes Eyes: Denies change in vision or diplopia Cardiovascular Cardiovascular: Reports leg edema; Denies chest pain, orthopnea, palpitations or syncope Respiratory/Chest Respiratory/Chest: Reports cough and dyspnea; Denies orthopnea Gastrointestinal Gastrointestinal: Reports nausea and vomiting; Denies abdominal pain or diarrhea Musculoskeletal Musculoskeletal: Denies back pain or neck pain Integumentary Denies abscess or rash Neurologic Neurologic: Denies headache(s), paresthesias or weakness Psychiatric Psychiatric: Denies suicidal thoughts EXAM Physical Exam Const Vital Signs: 03/02/24 03:25 03/02/24 03:30 03/02/24 03:46 Temperature 96.8 F L Temperature Source Temporal Pulse Rate 94 86 Respiratory Rate 18 18 Respiratory Effort Normal Non-Labored Respiratory Depth Normal Respiratory Pattern Normal Blood Pressure 169/88 H Blood Pressure Mean 115 Pulse Ox 96 Oxygen Delivery Method Room Air Room Air 03/02/24 04:29 03/02/24 05:24 03/02/24 05:29 Temperature 98.0 F 97.7 F L Temperature Source Oral Oral Pulse Rate 82 88 90 Respiratory Rate 16 15 20 H Respiratory Effort Respiratory Depth Respiratory Pattern Blood Pressure 164/86 H 161/82 H 161/82 H Blood Pressure Mean 112 108 108 Pulse Ox 95 98 96 Oxygen Delivery Method Room Air Room Air Room Air 03/02/24 06:38 Temperature 96.9 F L Temperature Source Pulse Rate 85 Respiratory Rate 16 Respiratory Effort Respiratory Depth Respiratory Pattern Blood Pressure 156/94 H Blood Pressure Mean 114 Pulse Ox 97 Oxygen Delivery Method Positive well nourished, well developed and obese General Appearance ED: well developed and NAD Nutritional Appearance: obese HEENT Reports moist mucous membranes normocephalic and atraumatic Eyes PERRL and EOMs intact bilaterally Neck full ROM, no lymphadenopathy, supple, no meningeal signs and no JVD Resp normal respiratory effort Resp Narrative: End expiratory wheezes bilaterally, diffusely. Trachea midline. Equal breath sounds bilaterally. Diffusely diminished. Cardio regular rate, regular rhythm and no murmurs GI non-tender and non-distended Auscultation: normoactive bowel sounds Palpation: soft Back/Spine no CVA tenderness General Back: other FROM Extremity normal to inspection General Extremety ED: Yes edema; Negative for pulses abnormal or tenderness General Extremity: edema bilateral lower extremity Details: moderate; Negative for pulses abnormal Neuro oriented x3, CN's II-XII intact bilaterally and no sensory deficits noted Sensorium / Orientation: awake and alert Motor Exam: strength 5/5 throughout Skin no rashes or lesions noted and no wounds MDM MDM MDM Narrative Medical decision making narrative: Although it sounds like a respiratory illness, I considered atypical cardiac etiologies such as acute coronary syndrome and acute congestive heart failure, I did an EKG it is completely normal in my interpretation. She feels better after an aerosol treatment and is ambulatory to and from the bathroom without dyspnea. She has a mild leukocytosis. I do not think this is cardiac in etiology and I do not think she needs other emergent workup for that. 2 view chest x-ray on my interpretation shows chronic changes but no acute infiltrates but radiology said they were unable to rule out pneumonia versus atelectasis and possibly small parapneumonic effusion. Given this and the patient's symptoms I am going to treat her empirically for the possibility of pneumonia although I think her lungs sound good other than slight expiratory wheezes. We will put her on Levaquin but avoid the prednisone for right now since she has not had a lot of wheezing and is a diabetic, but I will prescribe her a rescue inhaler to use as needed. She is comfortable with that plan and stable for discharge home should not hypoxic or septic. COVID/influenza/RSV came back negative ruling that out. Lab Data Attestation: I reviewed the patient's lab results. Labs: Laboratory Results - last 24 hr 03/02/24 04:00 WBC 12.4 H RBC 3.90 L Hgb 11.9 L Hct 37.6 MCV 96.4 MCH 30.5 MCHC 31.6 L RDW Std Deviation 51.8 H RDW Coeff of Tami 14.7 H Plt Count 640 H MPV 8.8 Immature Gran % (Auto) 3.100 H Neut % (Auto) 61.2 Lymph % (Auto) 28.2 [place] % (Auto) 5.5 Eos % (Auto) 1.4 Baso % (Auto) 0.6 Absolute Neuts (auto) 7.6 Absolute Lymphs (auto) 3.50 Nucleated RBC % 0 Sodium 134 L Potassium 4.1 Chloride 101 Carbon Dioxide 28.0 Anion Gap 5 BUN 15 Creatinine 0.93 Estim Creat Clear Calc 60.56 Est GFR (MDRD) Af Amer 76 Est GFR (MDRD) Non-Af 63 BUN/Creatinine Ratio 16.1 Glucose 135 H Calcium 8.7 Radiography Diagnostic Testing: Clinical Impression(s) from Imaging Studies Chest X-Ray 03/02/24 03:32 IMPRESSION: Right basilar atelectasis versus infiltrate and possible small right pleural effusion. Electronically Signed: Hay Hooper DO at 4:26 EDT , Rhythm Strip Rhythm Strip: Sinus Rhythm Rate: 80 Ectopy: None EKG Initial EKG: Attestation: I personally reviewed and interpreted this EKG as follows: Interpretation: Sinus Rhythm and No Acute Injury Pattern Comments: Normal EKG Discharge Plan Triage Chief Complaint: Cough ED Provider: Devang Barbosa Dx/Rx/DC Orders Clinical Impression: Acute lower respiratory tract infection, COPD (chronic obstructive pulmonary disease) Instructions: COPD: Using Inhalers, ED Pneumonia (Adult) Prescriptions: New levofloxacin 750 mg tablet 750 mg PO DAILY Qty: 5 0RF albuterol sulfate [Ventolin HFA] 90 mcg/actuation HFA aerosol inhaler 1 - 2 puff inhalation Q4H PRN PRN (Reason: Wheezing) Qty: 1 0RF No Action acetaminophen [Tylenol Arthritis Pain] 650 mg tablet extended release 650 mg PO Q12H PRN (Reason: pain) ascorbic acid (vitamin C) 500 mg capsule 500 mg PO DAILY (DME) Incentive Spirometer See Rx Instructions .Route .MEDSUPPLY Qty: 1 0RF Rx Instructions: As directed cariprazine 1.5 mg capsule 1.5 mg PO Q24H Qty: 90 1RF Rx Instructions: TAKE ONE CAPSULE BY MOUTH EVERY DAY Prolia 60 mg/mL syringe 60 mg subcut E2ASALGY Qty: 1 2RF calcium carbonate 600 mg calcium (1,500 mg) tablet 600 mg PO BID PRN (Reason: supplement) Myrbetriq 50 mg tablet extended release 24 hr 50 mg PO QDAY divalproex 250 mg tablet extended release 24 hr 250 mg PO BID Qty: 60 0RF Rx Instructions: Months #2: Take 1 tablet twice daily lactulose 10 gram/15 mL solution 10 g PO TID Qty: 1350 5RF lamotrigine 200 mg tablet 200 mg PO QHS Qty: 30 6RF Rx Instructions: TAKE ONE TABLET BY MOUTH AT BEDTIME sodium chloride 1,000 mg tablet,soluble 1,000 mg PO DAILY hydralazine 100 mg tablet 100 mg PO TID 90 Days Qty: 270 1RF (DME) Handicap Placard See Rx Instructions .ROUTE .MEDSUPPLY Qty: 1 0RF Rx Instructions: As directed, length of time 5 years (DME) POCKET CHAMBER Spacer See Rx Instructions .ROUTE .MEDSUPPLY Qty: 1 0RF Rx Instructions: As directed (DME) FreeStyle Lite Strips Strip See Rx Instructions .MEDSUPPLY Qty: 100 3RF Rx Instructions: check blood glucose daily for type 2 DM (DME) lancets [FreeStyle Lancets] 28 gauge misc See Rx Instructions .MEDSUPPLY Qty: 200 3RF Rx Instructions: check blood glucose daily for type 2 DM ferrous sulfate 324 mg (65 mg iron) tablet,delayed release (DR/EC) 324 mg PO Q OTHER DAY Qty: 90 2RF rosuvastatin 40 mg tablet 40 mg PO DAILY Qty: 90 2RF metoprolol succinate 25 mg tablet extended release 24 hr 25 mg PO QHS Qty: 90 2RF metoprolol succinate 50 mg tablet extended release 24 hr 50 mg PO DAILY Qty: 90 3RF (DME) Ultra-Light Rollator Misc See Rx Instructions .Route Qty: 1 0RF Rx Instructions: As directed metformin 500 mg tablet extended release 24 hr 500 mg PO BID Qty: 60 3RF fesoterodine 4 mg tablet extended release 24 hr 4 mg PO DAILY Qty: 30 0RF (DME) blood-glucose meter [FreeStyle Lite Meter] Kit See Rx Instructions .MEDSUPPLY Qty: 1 0RF Rx Instructions: As directed, check blood glucose daily for type 2 DM meloxicam 7.5 mg tablet 7.5 mg PO DAILY PRN (Reason: pain) Qty: 14 0RF (DME) Hospital Bed with 1/2 rails See Rx Instructions .Route .MEDSUPPLY Qty: 1 0RF Rx Instructions: As directed (DME) mattress for hospital bed See Rx Instructions .Route .MEDSUPPLY Qty: 1 0RF Rx Instructions: One mattress compatible with incoming hospital bed guaifenesin [Mucinex] 600 mg tablet extended release 12hr See Rx Instructions PO BID Qty: 180 1RF Rx Instructions: 1-2 tablets orally twice a day; Primary Care Provider: Esperanza Baird Referrals: Esperanza Baird MD [Primary Care Provider] - 3-5 Days Print Language: Swazi Disposition Disposition: Home, Self Care
[2024-03-02] MEDS: Ipratropium/Albuterol Sulfate 3 ML AMPUL.NEB INHALATION (03:44)
[2024-03-02] MEDS: Ondansetron 4 MG/2 ML Vial IV (04:03)
[2024-03-02 04:11] LABS: Absolute Neutrophil Count 7.6 X10^3/uL (2.0-7.7); Basophil# 0.07 X10^3/uL; Basophil% 0.6 % (0-1); Eosinophil# 0.18 X10^3/uL; Eosinophils% 1.4 % (0-5); Hematocrit 37.6 % (37-47); Hemoglobin 11.9 g/dL (12.0-15.0); Lymphocyte % 28.2 % (19-41); Mean Corp Hgb Conc 31.6 g/dL (32-36); Mean Corpuscular Hgb 30.5 pg (27.0-32.0); Mean Corpuscular Volume 96.4 fL (81-99); Mean Platelet Vol. 8.8 fl (6.2-12.0); Monocyte# 0.68 X10^3/uL; Monocyte% 5.5 % (0-10); NRBC Flagged by Analyzer 0 % (0-5); Neutrophil % 61.2 % (47-70); Platelet Count 640 K/mm3 (150-450); RBC Distribution Width CV 14.7 % (11.6-14.6); RBC Distribution Width SD 51.8 fl (35.1-43.9); White Blood Count 12.4 K/mm3 (4.4-11.0)
[2024-03-02 04:25] LABS: Anion Gap 5 (5-15); BUN 15 mg/dL (7-18); BUN/Creat Ratio 16.1 RATIO (10-20); Calcium,Total 8.7 mg/dL (8.5-10.1); Chloride 101 mmol/L (98-107); Creatinine, Serum 0.93 mg/dL (0.55-1.02); EST Glomerular Filtration Rate 63 mL/min (>60); Est Glom Filt Rate - Afr Amer 76 mL/min (>60); Estimated Creatinine Clearance 60.56 ml/min; Glucose 135 mg/dL (74-106); Potassium 4.1 mmol/L (3.5-5.1); Sodium Level 134 mmol/L (136-145)
== END 2024-03-02 06:43 | disposition home or self-care (01) ==
PROVIDERS: Emergency Provider Emergency Medicine; PCP Internal Medicine; Visit Provider Emergency Medicine
DX: J22 Unspecified acute lower respiratory infection (principal); J44.9 Chronic obstructive pulmonary disease, unspecified; E11.9 Type 2 diabetes mellitus without complications; Z87.891 Personal history of nicotine dependence; R60.0 Localized edema; R11.2 Nausea with vomiting, unspecified; E78.00 Pure hypercholesterolemia, unspecified; I10 Essential (primary) hypertension; K21.9 Gastro-esophageal reflux disease without esophagitis; E66.9 Obesity, unspecified
CPT/HCPCS: 71046; 80048; 85025; 87631; 93005; 94640; 96374; 99282; A4216; J2405

== ENCOUNTER → 2024-03-07 | Outpatient (CLI) | payer MEDICARE, MEDICAID, SELFPAY ==
[2024-03-07 16:07] LABS: Urine Sodium 74 mmol/L (Not Establ.)
[2024-03-07 19:44] LABS: Osmolality, Serum 270 mOsm/KG (280-301); Osmolality, Urine 326 mOsm/KG
== END | disposition home or self-care (01) ==
LOC: BIMLAB 14:29
PROVIDERS: PCP Internal Medicine; Referring Provider Internal Medicine Nephrology; Visit Provider Internal Medicine Nephrology
DX: E87.1 Hypo-osmolality and hyponatremia (principal)
CPT/HCPCS: 36415; 83930; 83935; 84300

== ENCOUNTER → 2024-04-28 | Outpatient (CLI) | payer MEDICARE, MEDICAID, SELFPAY ==
[2024-04-28 15:21] LABS: Absolute Neutrophil Count 9.2 X10^3/uL (2.0-7.7); Basophil# 0.07 X10^3/uL; Basophil% 0.5 % (0-1); Eosinophil# 0.09 X10^3/uL; Eosinophils% 0.7 % (0-5); Hematocrit 41.4 % (37-47); Hemoglobin 13.4 g/dL (12.0-15.0); Lymphocyte % 20.9 % (19-41); Mean Corp Hgb Conc 32.4 g/dL (32-36); Mean Corpuscular Hgb 30.9 pg (27.0-32.0); Mean Corpuscular Volume 95.4 fL (81-99); Mean Platelet Vol. 9.3 fl (6.2-12.0); Monocyte# 0.73 X10^3/uL; Monocyte% 5.6 % (0-10); NRBC Flagged by Analyzer 0 % (0-5); Neutrophil # 9.22 X10^3/uL (2.7-7.7); Neutrophil % 71.4 % (47-70); Platelet Count 632 K/mm3 (150-450); RBC Distribution Width CV 14.9 % (11.6-14.6); RBC Distribution Width SD 52.4 fl (35.1-43.9); Red Blood Count 4.34 M/mm3 (4.2-5.4); White Blood Count 12.9 K/mm3 (4.4-11.0)
[2024-04-28 15:57] LABS: AST(SGOT) 16 U/L (15-37); Alanine Aminotransfer ALT/SGPT 22 U/L (13-56); Albumin, Serum 3.6 g/dL (3.2-5.0); Alkaline Phosphatase 100 U/L (45-117); Anion Gap 4 (5-15); BUN 8 mg/dL (7-18); BUN/Creat Ratio 10.3 RATIO (10-20); Calcium,Total 9.6 mg/dL (8.5-10.1); Chloride 102 mmol/L (98-107); Creatinine, Serum 0.77 mg/dL (0.55-1.02); EST Glomerular Filtration Rate 78 mL/min (>60); Est Glom Filt Rate - Afr Amer 94 mL/min (>60); Globulin 3.6 g/dL (2.2-4.2); Glucose 102 mg/dL (74-106); Potassium 4.6 mmol/L (3.5-5.1); Protein, Total 7.2 g/dL (6.4-8.2); Sodium Level 133 mmol/L (136-145)
== END | disposition home or self-care (01) ==
LOC: BIMLAB 14:10
PROVIDERS: PCP Internal Medicine; Visit Provider Internal Medicine
DX: F31.9 Bipolar disorder, unspecified (principal); I10 Essential (primary) hypertension; E72.20 Disorder of urea cycle metabolism, unspecified
CPT/HCPCS: 36415; 80053; 82140; 85025

== ENCOUNTER 2024-05-02 12:37 | Emergency (ER) | payer MEDICARE, MEDICAID, SELFPAY ==
[2024-05-02 12:37] VITALS: BP 139/64; PULSE 123; RESP 24; TEMP 36.2; O2SAT 94
--- NOTE | 2024-05-02 13:15 | EX.ED.DYSGE1 ---
HPI History of Present Illness Chief Complaint: Anxiety Informant: patient Onset/Context/Timing Onset: Weeks (1) Context: Gradual Onset Timing: Continuous Quality: Insomnia Location: Generalized Worsened by: Nothing Narrative Narrative: Patient presents with insomnia that has been constant for the past 7 days. Patient states she has not slept at all in the last 7 days. Patient states that last night she took melatonin to help with sleeping. Patient states that it just caused her to become dizzy. Patient states she still it did not fall asleep. Patient states her dizziness is worse with movement and better when she lays back. Patient admits to some urinary frequency but denies any dysuria or hematuria. Patient states nothing makes her insomnia better and nothing makes it worse. [facility] Medical History Cough Malaise and fatigue Increased ammonia level Skin ulcer of groin with fat layer exposed Skin ulcer of abdomen Hyponatremia Osteoporosis Substance abuse Diabetes Kidney disease Type 2 diabetes mellitus Primary osteoarthritis, left shoulder Morbid obesity Osteoarthritis Weight gain Debility Prediabetes Obesity (BMI 30-39.9) Epilepsy Tumors Drug abuse Back problem Bilateral lower extremity edema Anemia Rib pain on right side Atypical chest pain DDD (degenerative disc disease) Wears glasses Loose, teeth Cancer Arthritis Walker as ambulation aid Bladder disease Low iron High cholesterol Hepatitis Injury of back Injury of head and neck Seizures Dietary restriction Gastric reflux Shortness of breath on exertion History of edema History of stress test Hypertension Dermatitis Venous insufficiency of both lower extremities Hyponatremia Dizziness Urinary incontinence Frequent falls Left ankle pain Left wrist fracture Flu vaccine need Neoplasm of skin of nose Intertrigo Cutaneous candidiasis Abdominal pain Actinic keratoses Neoplasm of skin of eyelid Manic episode Neurofibroma of neck Intradermal nevus Hemangioma of face Benign neoplasm of skin of cheek Basal cell carcinoma of right medial cheek Basal cell carcinoma of upper lip Basal cell carcinoma of right forehead Multiple personalities Panic attacks History of UTI Kidney failure COPD (chronic obstructive pulmonary disease) Dissociative identity disorder Home Medications ?Medication ?Instructions ?Recorded ?Last Taken ?Type acetaminophen 650 mg 650 mg PO Q12H PRN pain 01/23/21 Unknown History tablet,extended release (Tylenol Arthritis Pain) Handicap Placard #1 ea 02/07/21 Unknown Rx inhalational spacing device #1 ea 06/26/21 Unknown Rx (POCKET CHAMBER spacer) ascorbic acid (vitamin C) 500 mg 500 mg PO DAILY vitamin 07/08/22 Unknown History capsule Incentive Spirometer #1 ea 08/05/22 Unknown Rx blood sugar diagnostic (FreeStyle #100 ea 07/15/23 Unknown Rx Lite Strips) lancets 28 gauge (FreeStyle #200 ea 07/15/23 Unknown Rx Lancets) denosumab 60 mg/mL subcutaneous 60 mg subcut [id number] bone health 09/25/23 Unknown Rx syringe (Prolia) #1 mL metoprolol succinate 50 mg 50 mg PO DAILY blood pressure #90 12/03/23 Unknown Rx tablet,extended release 24 hr tabs walker (Ultra-Light Rollator misc) #1 ea 12/10/23 Unknown Rx blood-glucose meter (FreeStyle #1 ea 01/29/24 Unknown Rx Lite Meter kit) fesoterodine 4 mg tablet,extended 4 mg PO DAILY bladder spasms #30 01/29/24 Unknown Rx release 24 hr tabs mirabegron 50 mg tablet,extended 50 mg PO QDAY 01/29/24 Unknown History release 24 hr (Myrbetriq) divalproex 250 mg tablet,extended 250 mg PO BID #60 tabs 02/02/24 Unknown Rx release 24 hr lactulose 10 gram/15 mL oral 10 g (15 mL) PO TID laxative 02/03/24 Unknown Rx solution #1,350 mL lamotrigine 200 mg tablet 200 mg PO QHS depression #30 tabs 02/03/24 Unknown Rx Hospital Bed with 1/2 rails #1 ea 02/04/24 Unknown Rx mattress for hospital bed #1 ea 02/24/24 Unknown Rx cariprazine 1.5 mg capsule 1.5 mg PO Q24H depression #90 caps 02/25/24 Unknown Rx benzonatate 100 mg capsule 100 mg PO BID-TID PRN cough #90 03/03/24 Unknown Rx caps calcium carbonate 600 mg PO BID PRN supplement #180 04/11/24 Unknown Rx tabs ferrous sulfate 324 mg (65 mg 324 mg PO Q OTHER DAY supplement 04/11/24 Unknown Rx iron) tablet,delayed release #90 tabs hydralazine 100 mg tablet 100 mg PO TID blood pressure 3 04/11/24 Unknown Rx months #270 tabs meloxicam 7.5 mg tablet 7.5 mg PO DAILY PRN pain #60 tabs 04/11/24 Unknown Rx metoprolol succinate 25 mg 25 mg PO QHS blood perssure #90 04/11/24 Unknown Rx tablet,extended release 24 hr tabs rosuvastatin 40 mg tablet 40 mg PO DAILY cholesterol #90 tabs 04/11/24 Unknown Rx guaifenesin 600 mg tablet, See Rx Instructions PO BID #180 04/22/24 Unknown Rx extended release 12 hr (Mucinex) tabs albuterol sulfate 90 mcg/actuation 1 - 2 puff inhalation Q4H PRN PRN 04/28/24 Unknown Rx aerosol inhaler (Ventolin HFA) Wheezing ##1 metformin 500 mg tablet,extended 500 mg PO BID diabetes #60 tabs 04/28/24 Unknown Rx release 24 hr hydroxyzine pamoate 25 mg capsule 50 mg (2 x 25 mg) PO TID PRN PRN 05/02/24 Unknown Rx Anxiety #30 CAPSULES Allergy/AdvReac Type Severity Reaction Status Date / Time iloperidone (From Fanapt) Allergy Severe Other Verified 04/28/24 13:19 paliperidone (From Invega) Allergy Severe increased Verified 04/28/24 13:19 psychiatric symptoms lurasidone (From Latuda) Allergy Other Verified 04/28/24 13:19 trazodone AdvReac Severe Other Verified 04/28/24 13:19 theophylline AdvReac Other Verified 04/28/24 13:19 Family History Brother Colon cancer Lung cancer Aunt Obesity Sister Obesity Mother Rheumatoid arthritis Father Alzheimer disease Brother Alzheimer disease Surgical History History of carpal tunnel surgery History of basal cell carcinoma excision History of excision of lesion History of endoscopy History of cholecystectomy History of colonoscopy History of hernia repair History of 3 sections H/O hernia repair H/O: hysterectomy History of Social History Smoking Status: Current some day smoker tobacco type: cigarettes Tobacco: How many years used: 20 how long ago did patient quit smoking: second hand exposure: No alcohol intake: never substance use type: former substance user Date of last use: Cocaine what type of physical activity do you participate in: none vince/voodoo: [employer] seatbelt use: always ROS ROS ED Constitutional Constitutional ED: Reports chills; Denies fever(s) Eyes Eyes: Denies blurry vision or change in vision ENT ENT ED: Reports rhinorrhea; Denies sore throat Cardiovascular Cardiovascular: Denies chest pain or palpitations Respiratory/Chest Respiratory/Chest: Reports dyspnea; Denies cough Gastrointestinal Gastrointestinal: Denies nausea or vomiting Genitourinary Genitourinary ED: Denies dysuria or hematuria Musculoskeletal Musculoskeletal: Reports back pain; Denies neck pain Integumentary Denies abscess or rash Neurologic Neurologic: Reports weakness; Denies headache(s) Allergic/Immunologic Allergic/Immunologic ED: Denies mouth swelling or urticaria EXAM Physical Exam Const Vital Signs: 05/02/24 12:37 05/02/24 14:37 Temperature 97.2 F L Temperature Source Temporal Pulse Rate 123 H 98 Respiratory Rate 24 H 16 Blood Pressure 139/64 H 136/90 H Blood Pressure Mean 89 105 Pulse Ox 94 98 Oxygen Delivery Method Room Air Positive well nourished and well developed General Appearance ED: well developed and NAD HEENT Reports moist mucous membranes Neck supple Resp normal respiratory effort and clear to auscultation bilaterally Cardio regular rate and regular rhythm GI non-tender and non-distended Palpation: soft Neuro oriented x3, CN's II-XII intact bilaterally and no sensory deficits noted Sensorium / Orientation: alert Motor Exam: strength 5/5 throughout Psych mental status grossly normal MDM MDM MDM Narrative Medical decision making narrative: Differential diagnosis includes anxiety, electrolyte abnormality, urinary tract infection, and insomnia. CBC will be obtained to assess for leukocytosis and anemia. Basic metabolic profile will be obtained to assess for electrolyte abnormality and renal function. Urinalysis will be obtained to assess for urinary tract infection and hematuria. Lab Data Attestation: I reviewed the patient's lab results. Lab results narrative: CBC was reviewed. There is a mild leukocytosis of 13.0. The remainder is within normal limits. Basic metabolic profile was reviewed. Potassium was slightly low at 3.2. Glucose was mildly elevated at 151. The remainder is within normal limits. Urinalysis was reviewed. Leukocyte esterase was 100 with 5-10 white blood cells, 5-10 epithelial cells, and 5-10 red blood cells. Labs: Laboratory Results - last 24 hr 05/02/24 05/02/24 13:33 14:41 WBC 13.0 H RBC 4.48 Hgb 13.7 Hct 41.2 MCV 92.0 MCH 30.6 MCHC 33.3 RDW Std Deviation 48.7 H RDW Coeff of Tami 14.6 Plt Count 656 H MPV 8.8 Immature Gran % (Auto) 1.000 H Neut % (Auto) 76.0 H Lymph % (Auto) 16.2 L Rush % (Auto) 5.8 Eos % (Auto) 0.5 Baso % (Auto) 0.5 Absolute Neuts (auto) 9.9 H Absolute Lymphs (auto) 2.10 Nucleated RBC % 0 Sodium 138 Potassium 3.2 L Chloride 103 Carbon Dioxide 25.0 Anion Gap 10 BUN 7 Creatinine 0.80 Est GFR (MDRD) Af Amer 90 Est GFR (MDRD) Non-Af 74 BUN/Creatinine Ratio 8.7 L Glucose 151 H Calcium 9.3 Urine Color Yellow Urine Clarity Sl Cldy Urine pH 6.5 Ur Specific [place] 1.015 Urine Protein 100 H Urine Glucose (UA) Normal Urine Ketones 5 H Urine Occult Blood 10 H Urine Nitrite Negative Urine Bilirubin 1 H Urine Urobilinogen 4 H Ur Leukocyte Esterase 100 H Urine RBC 5-10 SEEN Urine WBC 5-10 SEEN Ur Squamous Epith Cells 5-10 SEEN Urine Bacteria RARE Urine Mucus 0 SEEN Treatment and Re-Evaluation :: Patient was given a dose of oral potassium here. Patient was given a dose of Vistaril here. Patient was given a prescription for a short course of Vistaril. Patient was instructed to follow-up with her primary care physician in 5 to 7 days. Patient understood and was agreeable with the plan. All questions were answered. Discharge Plan Triage Chief Complaint: Anxiety ED Provider: Navjot Tejeda Dx/Rx/DC Orders Clinical Impression: Insomnia, Dizziness, Generalized weakness, Tobacco abuse Instructions: ED Insomnia Prescriptions: New hydroxyzine pamoate 25 mg capsule 50 mg PO TID PRN PRN (Reason: Anxiety) Qty: 30 0RF No Action acetaminophen [Tylenol Arthritis Pain] 650 mg tablet extended release 650 mg PO Q12H PRN (Reason: pain) ascorbic acid (vitamin C) 500 mg capsule 500 mg PO DAILY (DME) Incentive Spirometer See Rx Instructions .Route .MEDSUPPLY Qty: 1 0RF Rx Instructions: As directed cariprazine 1.5 mg capsule 1.5 mg PO Q24H Qty: 90 1RF Rx Instructions: TAKE ONE CAPSULE BY MOUTH EVERY DAY Prolia 60 mg/mL syringe 60 mg subcut [id number] Qty: 1 2RF Myrbetriq 50 mg tablet extended release 24 hr 50 mg PO QDAY divalproex 250 mg tablet extended release 24 hr 250 mg PO BID Qty: 60 0RF Rx Instructions: Months #2: Take 1 tablet twice daily lactulose 10 gram/15 mL solution 10 g PO TID Qty: 1350 5RF lamotrigine 200 mg tablet 200 mg PO QHS Qty: 30 6RF Rx Instructions: TAKE ONE TABLET BY MOUTH AT BEDTIME metformin 500 mg tablet extended release 24 hr 500 mg PO BID Qty: 60 3RF guaifenesin [Mucinex] 600 mg tablet extended release 12hr See Rx Instructions PO BID Qty: 180 0RF Rx Instructions: 1-2 tablets orally twice a day; (DME) Handicap Placard See Rx Instructions .ROUTE .MEDSUPPLY Qty: 1 0RF Rx Instructions: As directed, length of time 5 years (DME) POCKET CHAMBER Spacer See Rx Instructions .ROUTE .MEDSUPPLY Qty: 1 0RF Rx Instructions: As directed (DME) FreeStyle Lite Strips Strip See Rx Instructions .MEDSUPPLY Qty: 100 3RF Rx Instructions: check blood glucose daily for type 2 DM (DME) lancets [FreeStyle Lancets] 28 gauge misc See Rx Instructions .MEDSUPPLY Qty: 200 3RF Rx Instructions: check blood glucose daily for type 2 DM metoprolol succinate 50 mg tablet extended release 24 hr 50 mg PO DAILY Qty: 90 3RF (DME) Ultra-Light Rollator Misc See Rx Instructions .Route Qty: 1 0RF Rx Instructions: As directed fesoterodine 4 mg tablet extended release 24 hr 4 mg PO DAILY Qty: 30 0RF (DME) blood-glucose meter [FreeStyle Lite Meter] Kit See Rx Instructions .MEDSUPPLY Qty: 1 0RF Rx Instructions: As directed, check blood glucose daily for type 2 DM (DME) Hospital Bed with 1/2 rails See Rx Instructions .Route .MEDSUPPLY Qty: 1 0RF Rx Instructions: As directed (DME) mattress for hospital bed See Rx Instructions .Route .MEDSUPPLY Qty: 1 0RF Rx Instructions: One mattress compatible with incoming hospital bed benzonatate 100 mg capsule 100 mg PO BID-TID PRN (Reason: cough) Qty: 90 2RF metoprolol succinate 25 mg tablet extended release 24 hr 25 mg PO QHS Qty: 90 2RF calcium carbonate 600 mg calcium (1,500 mg) tablet 600 mg PO BID PRN (Reason: supplement) Qty: 180 2RF meloxicam 7.5 mg tablet 7.5 mg PO DAILY PRN (Reason: pain) Qty: 60 2RF hydralazine 100 mg tablet 100 mg PO TID 90 Days Qty: 270 2RF rosuvastatin 40 mg tablet 40 mg PO DAILY Qty: 90 2RF ferrous sulfate 324 mg (65 mg iron) tablet,delayed release (DR/EC) 324 mg PO Q OTHER DAY Qty: 90 2RF albuterol sulfate [Ventolin HFA] 90 mcg/actuation HFA aerosol inhaler 1 - 2 puff inhalation Q4H PRN PRN (Reason: Wheezing) Qty: 1 0RF Primary Care Provider: Esperanza Baird Referrals: Esperanza Baird MD [Primary Care Provider] - Print Language: Setswana
[2024-05-02 13:51] LABS: Absolute Neutrophil Count 9.9 X10^3/uL (2.0-7.7); Basophil# 0.06 X10^3/uL; Basophil% 0.5 % (0-1); Eosinophil# 0.06 X10^3/uL; Eosinophils% 0.5 % (0-5); Hematocrit 41.2 % (37-47); Hemoglobin 13.7 g/dL (12.0-15.0); Lymphocyte % 16.2 % (19-41); Mean Corp Hgb Conc 33.3 g/dL (32-36); Mean Corpuscular Hgb 30.6 pg (27.0-32.0); Mean Platelet Vol. 8.8 fl (6.2-12.0); Monocyte# 0.76 X10^3/uL; Monocyte% 5.8 % (0-10); NRBC Flagged by Analyzer 0 % (0-5); Neutrophil # 9.89 X10^3/uL (2.7-7.7); Platelet Count 656 K/mm3 (150-450); RBC Distribution Width CV 14.6 % (11.6-14.6); RBC Distribution Width SD 48.7 fl (35.1-43.9); Red Blood Count 4.48 M/mm3 (4.2-5.4)
[2024-05-02 14:04] LABS: Anion Gap 10 (5-15); BUN 7 mg/dL (7-18); BUN/Creat Ratio 8.7 RATIO (10-20); Calcium,Total 9.3 mg/dL (8.5-10.1); Chloride 103 mmol/L (98-107); EST Glomerular Filtration Rate 74 mL/min (>60); Est Glom Filt Rate - Afr Amer 90 mL/min (>60); Glucose 151 mg/dL (74-106); Potassium 3.2 mmol/L (3.5-5.1); Sodium Level 138 mmol/L (136-145)
[2024-05-02] MEDS: Potassium Chloride Oral Tablet 20 MEQ 40 MEQ PO (14:15)
[2024-05-02 14:37] VITALS: BP 136/90; PULSE 98; RESP 16; O2SAT 98
[2024-05-02 14:51] LABS: Mucous, Urine 0 SEEN /hpf (<or=2+)
[2024-05-02 14:55] LABS: Glucose, Dipstick Normal (Normal); Ketone-Dipstick 5 mg/dl (Negative); Leukocyte Esterase-Dipstick 100 /ul (Negative); Nitrite-Dipstick Negative (Negative); Occult Blood-Urine 10 /ul (Negative); Protein-Dipstick 100 mg/dl (Negative); Specific Gravity, Urine 1.015 (1.002-1.030); Urine Urobilinogen 4 mg/dl (Normal); Urine pH 6.5 (5.0 - 8.0)
[2024-05-02 14:56] LABS: Urine Bilirubin Dipstick 1 mg/dL (Negative)
[2024-05-02 15:03] LABS: Color, Urine Yellow (Yellow); Urine Clarity Sl Cldy (Clear)
[2024-05-02 15:05] LABS: Red Blood Cells-Urine 5-10 SEEN /hpf (0-5); Squamous Epithelial Cells - UA 5-10 SEEN /hpf (5-10); White Blood Cells 5-10 SEEN /hpf (0-5)
[2024-05-02 15:06] LABS: Bacteria RARE /hpf (None Seen)
[2024-05-02 16:00] VITALS: BP 108/70; PULSE 80; RESP 16; O2SAT 99
[2024-05-02] MEDS: hydrOXYzine PAM 25 MG Capsule PO (16:08)
--- NOTE | 2024-05-02 16:09 | ED.RN ---
PATIENT WAS READY TO LEAVE AND REMOVED ANGIOCATHETER FROM LEFT WRIST BY HERSELF. UNABLE TO ASSESS CATHETER. POST-SITE INTACT W/ 3MM, PURPLE HEMATOMA. PATIENT EDUCATED ON THE RISK OF REMOVING MEDICAL EQUIPMENT.
[2024-05-02 16:11] VITALS: BP 108/90; PULSE 67; RESP 18; TEMP 36.6; O2SAT 99
== END 2024-05-02 16:12 | disposition home or self-care (01) ==
LOC: ED 13:37
PROVIDERS: Emergency Provider Emergency Medicine; PCP Internal Medicine; Visit Provider Emergency Medicine
DX: G47.00 Insomnia, unspecified (principal); J44.9 Chronic obstructive pulmonary disease, unspecified; E11.9 Type 2 diabetes mellitus without complications; R42 Dizziness and giddiness; R53.1 Weakness; F41.9 Anxiety disorder, unspecified; F17.210 Nicotine dependence, cigarettes, uncomplicated; R35.0 Frequency of micturition; E78.00 Pure hypercholesterolemia, unspecified; K21.9 Gastro-esophageal reflux disease without esophagitis; I10 Essential (primary) hypertension; Z79.899 Other long term (current) drug therapy; Z79.84 Long term (current) use of oral hypoglycemic drugs
CPT/HCPCS: 80048; 81001; 85025; 99283; A4216

== ENCOUNTER 2024-05-07 06:34 | Emergency (ER) | payer MEDICARE, MEDICAID, SELFPAY ==
[2024-05-07 06:34] VITALS: BP 149/81; PULSE 87; RESP 16; TEMP 36.5; O2SAT 98; BMI 33.7
--- NOTE | 2024-05-07 07:10 | EKG12_ITS ---
Test Reason : DIZZY Blood Pressure : / mmHG Vent. Rate : 083 BPM Atrial Rate : 083 BPM P-R Int : 180 ms QRS Dur : 090 ms QT Int : 400 ms P-R-T Axes : 060 067 062 degrees QTc Int : 470 ms Normal sinus rhythm Normal ECG Confirmed by CORKY SEALS, FARHEEN ([id number]), visual effects editor ATUL BANEGAS ([id number]) on 05/09/2024 11:29:48 AM Referred By: Confirmed By:FARHEEN FRIED MD
--- NOTE | 2024-05-07 07:10 | CT_ITS ---
INDICATION: dizziness, tremor EXAMINATION: CT BRAIN - CT Head or Brain W/O Contrast Injection TECHNIQUE: Multiple axial images were obtained of the head without intravenous contrast. The protocol utilizes one or more of the following dose reduction techniques: automated exposure control, adjustment of mA and/or kV according to patient size,and/or use of iterative reconstruction technique. IV Contrast dosage and agent: None. RADIATION DOSAGE (If Supplied By Facility): CTDIvol = ( 44.99 ) mGy, DLP = ( 812.98 ) mGycm COMPARISON: Prior study dated: 10/16/2023 FINDINGS: BRAIN PARENCHYMA: No intra- or extra-axial hemorrhage. No evidence of acute infarct. No intracranial mass or mass effect. There is preservation of the steele/white matter interface. Periventricular deep white matter changes likely due to chronic microvascular disease. Posterior fossa structures are unremarkable. CSF SPACES: Mild diffuse atrophy No hydrocephalus. Basal cisterns are patent. CALVARIUM, SKULL BASE, PARANASAL SINUSES AND MASTOID AIR CELLS: Clear. No discrete lytic or blastic abnormalities. ORBITS: Both globes, extraocular muscles, optic nerves and retrobulbar fat appear unremarkable. CT/Brain/Head without Contrast IMPRESSION: 1. No acute intracranial process. 2. Mild chronic involutional changes of the brain. Electronically Signed: Ben Doe MD at 8:25 EDT ,
--- NOTE | 2024-05-07 07:11 | EX.ED.DYSGE1 ---
HPI History of Present Illness Chief Complaint: Dizziness Detail of Chief Complaint: Weakness and not feeling well Informant: patient Narrative Narrative: Patient presents to the emergency department with complaint of not feeling well for the last 4 days. Patient states that she was seen in the emergency department 4 days ago and was started on Vistaril 50 mg 3 times a day. 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 Patient states that she feels really weak and sluggish and having a hard time walking with her walker. EMS brings her in today for evaluation. She denies falls or head injuries. She denies urinary symptoms. She denies chest pain or abdominal pain. She denies shortness of breath. She has had a slight cough. Patient states that she also had her Vraylar dose doubled 3 days ago and she was reading the side effects of Vraylar and feels that this may be the cause of her symptoms. Patient has history of multiple personality disorder [facility] Medical History Cough Malaise and fatigue Increased ammonia level Skin ulcer of groin with fat layer exposed Skin ulcer of abdomen Hyponatremia Osteoporosis Substance abuse Diabetes Kidney disease Type 2 diabetes mellitus Primary osteoarthritis, left shoulder Morbid obesity Osteoarthritis Weight gain Debility Prediabetes Obesity (BMI 30-39.9) Epilepsy Tumors Drug abuse Back problem Bilateral lower extremity edema Anemia Rib pain on right side Atypical chest pain DDD (degenerative disc disease) Wears glasses Loose, teeth Cancer Arthritis Walker as ambulation aid Bladder disease Low iron High cholesterol Hepatitis Injury of back Injury of head and neck Seizures Dietary restriction Gastric reflux Shortness of breath on exertion History of edema History of stress test Hypertension Dermatitis Venous insufficiency of both lower extremities Hyponatremia Dizziness Urinary incontinence Frequent falls Left ankle pain Left wrist fracture Flu vaccine need Neoplasm of skin of nose Intertrigo Cutaneous candidiasis Abdominal pain Actinic keratoses Neoplasm of skin of eyelid Manic episode Neurofibroma of neck Intradermal nevus Hemangioma of face Benign neoplasm of skin of cheek Basal cell carcinoma of right medial cheek Basal cell carcinoma of upper lip Basal cell carcinoma of right forehead Multiple personalities Panic attacks History of UTI Kidney failure COPD (chronic obstructive pulmonary disease) Dissociative identity disorder Home Medications ?Medication ?Instructions ?Recorded ?Last Taken ?Type acetaminophen 650 mg 650 mg PO Q12H PRN pain 04/07/21 Unknown History tablet,extended release (Tylenol Arthritis Pain) Handicap Placard #1 ea 02/07/21 Unknown Rx inhalational spacing device #1 ea 06/26/21 Unknown Rx (POCKET CHAMBER spacer) ascorbic acid (vitamin C) 500 mg 500 mg PO DAILY vitamin 07/08/22 Unknown History capsule Incentive Spirometer #1 ea 08/05/22 Unknown Rx blood sugar diagnostic (FreeStyle #100 ea 07/15/23 Unknown Rx Lite Strips) lancets 28 gauge (FreeStyle #200 ea 07/15/23 Unknown Rx Lancets) denosumab 60 mg/mL subcutaneous 60 mg subcut [id number] bone health 09/25/23 Unknown Rx syringe (Prolia) #1 mL metoprolol succinate 50 mg 50 mg PO DAILY blood pressure #90 12/03/23 Unknown Rx tablet,extended release 24 hr tabs walker (Ultra-Light Rollator misc) #1 ea 12/10/23 Unknown Rx blood-glucose meter (FreeStyle #1 ea 01/29/24 Unknown Rx Lite Meter kit) fesoterodine 4 mg tablet,extended 4 mg PO DAILY bladder spasms #30 01/29/24 Unknown Rx release 24 hr tabs mirabegron 50 mg tablet,extended 50 mg PO QDAY 01/29/24 Unknown History release 24 hr (Myrbetriq) divalproex 250 mg tablet,extended 250 mg PO BID #60 tabs 02/02/24 Unknown Rx release 24 hr lamotrigine 200 mg tablet 200 mg PO QHS depression #30 tabs 02/03/24 Unknown Rx Hospital Bed with 1/2 rails #1 ea 02/04/24 Unknown Rx mattress for hospital bed #1 ea 02/24/24 Unknown Rx benzonatate 100 mg capsule 100 mg PO BID-TID PRN cough #90 03/03/24 Unknown Rx caps calcium carbonate 600 mg PO BID PRN supplement #180 04/11/24 Unknown Rx tabs ferrous sulfate 324 mg (65 mg 324 mg PO Q OTHER DAY supplement 04/11/24 Unknown Rx iron) tablet,delayed release #90 tabs hydralazine 100 mg tablet 100 mg PO TID blood pressure 3 04/11/24 Unknown Rx months #270 tabs meloxicam 7.5 mg tablet 7.5 mg PO DAILY PRN pain #60 tabs 04/11/24 Unknown Rx metoprolol succinate 25 mg 25 mg PO QHS blood perssure #90 04/11/24 Unknown Rx tablet,extended release 24 hr tabs rosuvastatin 40 mg tablet 40 mg PO DAILY cholesterol #90 tabs 04/11/24 Unknown Rx guaifenesin 600 mg tablet, See Rx Instructions PO BID #180 04/22/24 Unknown Rx extended release 12 hr (Mucinex) tabs albuterol sulfate 90 mcg/actuation 1 - 2 puff inhalation Q4H PRN PRN 04/28/24 Unknown Rx aerosol inhaler (Ventolin HFA) Wheezing ##1 metformin 500 mg tablet,extended 500 mg PO BID diabetes #60 tabs 04/28/24 Unknown Rx release 24 hr cariprazine 3 mg capsule 3 mg PO Q24H depression #30 caps 05/03/24 Unknown Rx hydroxyzine pamoate 25 mg capsule See Rx Instructions PO .COMPLEX 05/03/24 Unknown Rx PRN Anxiety #60 CAPSULES lactulose 10 gram/15 mL oral 10 g PO DAILY laxative 05/07/24 Unknown History solution Allergy/AdvReac Type Severity Reaction Status Date / Time iloperidone (From Fanapt) Allergy Severe Other Verified 05/07/24 06:35 paliperidone (From Invega) Allergy Severe increased Verified 05/07/24 06:35 psychiatric symptoms lurasidone (From Latuda) Allergy Other Verified 05/07/24 06:35 trazodone AdvReac Severe Other Verified 05/07/24 06:35 theophylline AdvReac Other Verified 05/07/24 06:35 Family History Brother Colon cancer Lung cancer Aunt Obesity Sister Obesity Mother Rheumatoid arthritis Father Alzheimer disease Brother Alzheimer disease Surgical History History of carpal tunnel surgery History of basal cell carcinoma excision History of excision of lesion History of endoscopy History of cholecystectomy History of colonoscopy History of hernia repair History of 3 sections H/O hernia repair H/O: hysterectomy History of Social History Smoking Status: Current some day smoker tobacco type: cigarettes Tobacco: How many years used: 20 how long ago did patient quit smoking: second hand exposure: No alcohol intake: never substance use type: former substance user Date of last use: Cocaine what type of physical activity do you participate in: none vince/anabaptist: Mu-Ism seatbelt use: always ROS ROS ED Review of Systems ROS Unobtainable: other Constitutional Constitutional ED: Reports lethargy; Denies chills, fever(s), sweats or weight loss Eyes Eyes: Denies blurry vision, change in vision or diplopia ENT ENT ED: Denies rhinorrhea or sore throat Cardiovascular Cardiovascular: Denies chest pain, orthopnea or racing heartbeat Respiratory/Chest Respiratory/Chest: Denies cough, dyspnea, dyspnea on exertion, orthopnea or sputum Gastrointestinal Gastrointestinal: Reports nausea; Denies abdominal pain, diarrhea or vomiting Genitourinary Genitourinary ED: Denies dysuria, hematuria or urinary frequency Musculoskeletal Musculoskeletal: Denies arthralgias, back pain, myalgias or neck pain Integumentary Denies abscess, Abrasions or rash Neurologic Neurologic: Reports weakness and other Details: Dizziness, tremor ; Denies headache(s) Psychiatric Psychiatric: Reports other Details: Multiple personality disorder ; Denies anxiety, depression or suicidal thoughts Endocrine Endocrinology: Denies polydipsia, polyphagia or polyuria Hematologic/Lymphatic Hematologic/Lymphatic: Denies easy bleeding, easy bruising or lymphadenopathy Allergic/Immunologic Allergic/Immunologic ED: Denies mouth swelling, tongue swelling or urticaria EXAM Physical Exam Const Vital Signs: 05/07/24 06:34 05/07/24 08:43 Temperature 97.7 F L Temperature Source Oral Pulse Rate 87 Pulse Rate [Lying] 89 Pulse Rate [Sitting (for 1 minute prior to obtaining)] 93 Pulse Rate [Standing (for 1 minute prior to obtaining)] 89 Respiratory Rate 16 Blood Pressure 149/81 H Blood Pressure [Lying] 124/72 H Blood Pressure [Sitting (for 1 minute prior to obtaining)] 154/88 H Blood Pressure [Standing (for 1 minute prior to obtaining)] 149/87 H Blood Pressure Mean 103 Blood Pressure Mean [Lying] 89 Blood Pressure Mean [Sitting (for 1 minute prior to obtaining)] 110 Blood Pressure Mean [Standing (for 1 minute prior to obtaining)] 107 Pulse Ox 98 Oxygen Delivery Method Room Air Positive well nourished and well developed General Appearance ED: well developed and NAD HEENT Reports TM's clear and moist mucous membranes normocephalic and atraumatic; Negative for trauma or tenderness Tympanic Membrane ED: Yes TM's clear Eyes PERRL and EOMs intact bilaterally General Eye ED: Negative for pale conjunctiva or scleral icterus Neck no lymphadenopathy, supple and no JVD General: Negative for tenderness Chest Wall inspection of chest normal and palpation of chest normal Chest: Negative for tenderness Resp normal respiratory effort and clear to auscultation bilaterally Effort and Inspection: Negative for respiratory distress or pain with movement Auscultation: Negative for rhonchi, wheezes or diminished lung sounds Cardio regular rate, regular rhythm, S1 normal heart sound, S2 normal heart sound and no murmurs Peripheral Pulses: pulses 2+ throughout GI normal to inspection, nondistended, normoactive bowel sounds, soft to palpation, non-tender, non-distended and no masses Back/Spine no CVA tenderness and no thoracic nor lumbar tenderness Extremity normal to inspection General Extremety ED: Negative for edema General Extremity: Negative for edema Neuro oriented x3, CN's II-XII intact bilaterally, no sensory deficits noted and gait normal Neuro Narrative: Fine tremor with left hand. No focal weakness noted on exam. Normal sensation upper and lower extremities and trunk. Sensorium / Orientation: awake, alert, oriented to person, oriented to place and oriented to time Motor Exam: strength 5/5 throughout and strength abnormal Psych mental status grossly normal Skin no rashes or lesions noted and no wounds MDM MDM MDM Narrative Medical decision making narrative: Patient presents the emergency department with multiple complaints. She was initially seen about 5 days ago for decreased ability to sleep and was given short supply of Vistaril. Her psychiatrist recently increased her Vraylar dose to double what she was taken and she thinks that maybe was causing her symptoms now. IV line established. CBC with differential obtained for white count of 10.9 with hemoglobin 13.2 and platelet count of 587. Her thrombocytosis is chronic. Chemistries unremarkable. LFTs were normal. Ammonia level was normal at 24. Urinalysis was normal. CT scan of the brain without contrast was unremarkable. Orthostatic vital signs were negative. Patient did ambulate in the department with a walker and was able to go to the bathroom and back although slowly she was steady. Discussed results with patient and offered admission if she is unsafe to go home. Patient states that she feels well enough to go home and does not want to be admitted. I did asked that she speak with her psychiatrist about potentially decreasing her Vraylar dose back to where it was as she tells me she tolerated the prior dose without difficulty. The increase in Vraylar was to help her sleep apparently. I did review possible side effects of Vraylar and certainly she is describing slower movements and dizziness and her symptoms could be consistent with side effects related to the Vraylar. Lab Data Attestation: I reviewed the patient's lab results. Labs: Laboratory Results - last 24 hr 05/07/24 05/07/24 05/07/24 07:40 08:26 08:56 WBC 10.9 RBC 4.27 Hgb 13.2 Hct 40.3 MCV 94.4 MCH 30.9 MCHC 32.8 RDW Std Deviation 51.8 H RDW Coeff of Tami 14.9 H Plt Count 587 H MPV 8.8 Immature Gran % (Auto) 0.900 Neut % (Auto) 78.0 H Lymph % (Auto) 15.7 L [place] % (Auto) 4.2 Eos % (Auto) 0.7 Baso % (Auto) 0.5 Absolute Neuts (auto) 8.5 H Absolute Lymphs (auto) 1.70 Nucleated RBC % 0 Sodium 134 L Potassium 4.4 Chloride 106 Carbon Dioxide 23.0 Anion Gap 5 BUN 5 L Creatinine 0.75 Estim Creat Clear Calc 74.80 Est GFR (MDRD) Af Amer 97 Est GFR (MDRD) Non-Af 80 BUN/Creatinine Ratio 6.6 L Glucose 114 H Calcium 8.6 Total Bilirubin 0.30 AST 19 ALT 22 Alkaline Phosphatase 105 Ammonia Cancelled 24.0 Troponin I High Sens 6 Total Protein 6.9 Albumin 3.4 Globulin 3.5 Albumin/Globulin Ratio 1.0 Urine Color Yellow Urine Clarity Clear Urine pH 7.0 Ur Specific [place] 1.005 Urine Protein Negative Urine Glucose (UA) Normal Urine Ketones Negative Urine Occult Blood Negative Urine Nitrite Negative Urine Bilirubin Negative Urine Urobilinogen Normal Ur Leukocyte Esterase Negative Urine RBC 0-5 SEEN Urine WBC 0 SEEN Ur Squamous Epith Cells 0-5 SEEN Urine Bacteria 1+ Urine Mucus 0 SEEN Radiography Diagnostic Testing: Clinical Impression(s) from Imaging Studies Brain CT 05/07/24 07:10 IMPRESSION: 1. No acute intracranial process. 2. Mild chronic involutional changes of the brain. Electronically Signed: Ben Doe MD at 8:25 EDT , Chest X-Ray 05/07/24 08:00 IMPRESSION: No radiographic evidence of acute cardiopulmonary disease. Electronically Signed: Ben Doe MD at 8:26 EDT , 1 view chest x-ray obtained interpreted by myself as no evidence of infiltrate or pneumothorax or acute disease process. EKG Initial EKG: Attestation: I personally reviewed and interpreted this EKG as follows: Comments: Sinus rhythm with rate of 83 bpm with no acute ST segment changes Discharge Plan Triage Chief Complaint: Dizziness ED Provider: Toshia Calle Dx/Rx/DC Orders Clinical Impression: Medication side effect, Dizziness, Generalized weakness Instructions: ED Dizziness, Uncertain Cause, ED Weakness (Uncertain Cause) Prescriptions: No Action acetaminophen [Tylenol Arthritis Pain] 650 mg tablet extended release 650 mg PO Q12H PRN (Reason: pain) ascorbic acid (vitamin C) 500 mg capsule 500 mg PO DAILY (DME) Incentive Spirometer See Rx Instructions .Route .MEDSUPPLY Qty: 1 0RF Rx Instructions: As directed Prolia 60 mg/mL syringe 60 mg subcut [id number] Qty: 1 2RF Myrbetriq 50 mg tablet extended release 24 hr 50 mg PO QDAY divalproex 250 mg tablet extended release 24 hr 250 mg PO BID Qty: 60 0RF Rx Instructions: Months #2: Take 1 tablet twice daily lamotrigine 200 mg tablet 200 mg PO QHS Qty: 30 6RF Rx Instructions: TAKE ONE TABLET BY MOUTH AT BEDTIME metformin 500 mg tablet extended release 24 hr 500 mg PO BID Qty: 60 3RF guaifenesin [Mucinex] 600 mg tablet extended release 12hr See Rx Instructions PO BID Qty: 180 0RF Rx Instructions: 1-2 tablets orally twice a day; cariprazine 3 mg capsule 3 mg PO Q24H Qty: 30 1RF Rx Instructions: TAKE ONE CAPSULE BY MOUTH EVERY DAY hydroxyzine pamoate 25 mg capsule See Rx Instructions PO .COMPLEX PRN (Reason: Anxiety) Qty: 60 0RF Rx Instructions: Take 25 mg BID PRN for anxiety and 50 mg qHS for sleep lactulose 10 gram/15 mL solution 10 g PO DAILY (DME) Handicap Placard See Rx Instructions .ROUTE .MEDSUPPLY Qty: 1 0RF Rx Instructions: As directed, length of time 5 years (DME) POCKET CHAMBER Spacer See Rx Instructions .ROUTE .MEDSUPPLY Qty: 1 0RF Rx Instructions: [place] directed [place] [place] FreeStyle Lite Strips Strip See Rx Instructions .MEDSUPPLY Qty: 100 3RF Rx Instructions: check blood glucose daily for type 2 DM (DME) lancets [FreeStyle Lancets] 28 gauge misc See Rx Instructions .MEDSUPPLY Qty: 200 3RF Rx Instructions: check blood glucose daily for type 2 DM metoprolol succinate 50 mg tablet extended release 24 hr 50 mg PO DAILY Qty: 90 3RF (DME) Ultra-Light Rollator Misc See Rx Instructions .Route Qty: 1 0RF Rx Instructions: As directed fesoterodine 4 mg tablet extended release 24 hr 4 mg PO DAILY Qty: 30 0RF [place] [place] blood-glucose meter [FreeStyle Lite Meter] Kit See Rx Instructions .MEDSUPPLY Qty: 1 0RF Rx Instructions: As directed, check blood glucose daily for type 2 DM (DME) Hospital Bed with 1/2 rails See Rx Instructions .Route .MEDSUPPLY Qty: 1 0RF Rx Instructions: As directed [place] mattress for hospital bed See Rx Instructions .Route .MEDSUPPLY Qty: 1 0RF Rx Instructions: One mattress compatible with incoming hospital bed benzonatate 100 mg capsule 100 mg PO BID-TID PRN (Reason: cough) Qty: 90 2RF metoprolol succinate 25 mg tablet extended release 24 hr 25 mg PO QHS Qty: 90 2RF calcium carbonate 600 mg calcium (1,500 mg) tablet 600 mg PO BID PRN (Reason: supplement) Qty: 180 2RF meloxicam 7.5 mg tablet 7.5 mg PO DAILY PRN (Reason: pain) Qty: 60 2RF hydralazine 100 mg tablet 100 mg PO TID 90 Days Qty: 270 2RF rosuvastatin 40 mg tablet 40 mg PO DAILY Qty: 90 2RF ferrous sulfate 324 mg (65 mg iron) tablet,delayed release (DR/EC) 324 mg PO Q OTHER DAY Qty: 90 2RF albuterol sulfate [Ventolin HFA] 90 mcg/actuation HFA aerosol inhaler 1 - 2 puff inhalation Q4H PRN PRN (Reason: Wheezing) Qty: 1 0RF Primary Care Provider: Esperanza Baird Referrals: Esperanza Baird MD [Primary Care Provider] - Activity Restrictions/Additional Instructions: Follow-up with your psychiatrist regarding your Vraylar dose. You may consider decreasing the dose back to your original dose if you are symptomatic. Print Language: [place] Islander Disposition Disposition: Home, Self Care
[2024-05-07] MEDS: Ondansetron 4 MG/2 ML Vial IV (07:39)
[2024-05-07] MEDS: 0.9% Normal Saline (1000mL) 1,000 ML 150 ML IV (07:39)
[2024-05-07 07:50] LABS: Absolute Neutrophil Count 8.5 X10^3/uL (2.0-7.7); Basophil# 0.05 X10^3/uL; Basophil% 0.5 % (0-1); Eosinophil# 0.08 X10^3/uL; Eosinophils% 0.7 % (0-5); Hematocrit 40.3 % (37-47); Hemoglobin 13.2 g/dL (12.0-15.0); Lymphocyte % 15.7 % (19-41); Mean Corp Hgb Conc 32.8 g/dL (32-36); Mean Corpuscular Hgb 30.9 pg (27.0-32.0); Mean Corpuscular Volume 94.4 fL (81-99); Mean Platelet Vol. 8.8 fl (6.2-12.0); Monocyte# 0.46 X10^3/uL; Monocyte% 4.2 % (0-10); NRBC Flagged by Analyzer 0 % (0-5); Neutrophil # 8.46 X10^3/uL (2.7-7.7); Platelet Count 587 K/mm3 (150-450); RBC Distribution Width CV 14.9 % (11.6-14.6); RBC Distribution Width SD 51.8 fl (35.1-43.9); Red Blood Count 4.27 M/mm3 (4.2-5.4); White Blood Count 10.9 K/mm3 (4.4-11.0)
--- NOTE | 2024-05-07 08:00 | RAD_ITS ---
INDICATION: cough EXAMINATION/TECHNIQUE: X-RAY - XR Chest 1 View COMPARISON: Prior study dated: 04/29/2024 FINDINGS: LINES/DEVICES: None. LUNGS: No consolidation, edema or effusion. No pneumothorax. MEDIASTINUM AND CARDIOVASCULAR STRUCTURES: Cardiac silhouette not enlarged. Central airways and mediastinal contour are unremarkable. BONES AND SOFT TISSUES: Unremarkable. RAD/Chest 1 View (Portable) IMPRESSION: No radiographic evidence of acute cardiopulmonary disease. Electronically Signed: Ben Doe MD at 8:26 EDT ,
[2024-05-07 08:06] LABS: AST(SGOT) 19 U/L (15-37); Alanine Aminotransfer ALT/SGPT 22 U/L (13-56); Albumin, Serum 3.4 g/dL (3.2-5.0); Alkaline Phosphatase 105 U/L (45-117); Anion Gap 5 (5-15); BUN 5 mg/dL (7-18); BUN/Creat Ratio 6.6 RATIO (10-20); Calcium,Total 8.6 mg/dL (8.5-10.1); Chloride 106 mmol/L (98-107); Creatinine, Serum 0.75 mg/dL (0.55-1.02); EST Glomerular Filtration Rate 80 mL/min (>60); Est Glom Filt Rate - Afr Amer 97 mL/min (>60); Globulin 3.5 g/dL (2.2-4.2); Glucose 114 mg/dL (74-106); Potassium 4.4 mmol/L (3.5-5.1); Protein, Total 6.9 g/dL (6.4-8.2); Sodium Level 134 mmol/L (136-145); Troponin-I HS 6 pg/mL (3.0-54.0)
[2024-05-07 08:43] VITALS: BP 124/72; BP 149/87; BP 154/88; PULSE 89; PULSE 93
[2024-05-07 09:00] LABS: Mucous, Urine 0 SEEN /hpf (<or=2+); White Blood Cells 0 SEEN /hpf (0-5)
[2024-05-07 09:13] LABS: Color, Urine Yellow (Yellow); Glucose, Dipstick Normal (Normal); Ketone-Dipstick Negative (Negative); Leukocyte Esterase-Dipstick Negative /ul (Negative); Nitrite-Dipstick Negative (Negative); Occult Blood-Urine Negative /ul (Negative); Protein-Dipstick Negative (Negative); Specific Gravity, Urine 1.005 (1.002-1.030); Urine Bilirubin Dipstick Negative (Negative); Urine Clarity Clear (Clear); Urine Urobilinogen Normal (Normal)
[2024-05-07 09:19] LABS: Bacteria 1+ /hpf (None Seen); Red Blood Cells-Urine 0-5 SEEN /hpf (0-5); Squamous Epithelial Cells - UA 0-5 SEEN /hpf (5-10)
[2024-05-07 09:49] VITALS: BP 131/78; PULSE 64; RESP 16; TEMP 36.6; O2SAT 99
== END 2024-05-07 09:50 | disposition home or self-care (01) ==
PROVIDERS: Emergency Provider Emergency Medicine; PCP Internal Medicine; Visit Provider Emergency Medicine
DX: R42 Dizziness and giddiness (principal); F44.81 Dissociative identity disorder; J44.9 Chronic obstructive pulmonary disease, unspecified; E11.9 Type 2 diabetes mellitus without complications; R53.1 Weakness; F17.210 Nicotine dependence, cigarettes, uncomplicated; E78.00 Pure hypercholesterolemia, unspecified; Z79.899 Other long term (current) drug therapy; T43.595A Adverse effect of other antipsychotics and neuroleptics, initial encounter
CPT/HCPCS: 70450; 71045; 80053; 81001; 82140; 84484; 85025; 93005; 96361; 96374; 99285; J7030; A4216; J2405

== ENCOUNTER 2024-05-13 23:53 | Emergency (ER) | payer MEDICARE, MEDICAID, SELFPAY ==
[2024-05-13 23:55] VITALS: BP 145/86; PULSE 82; RESP 16; TEMP 35.8; O2SAT 92; BMI 43.9
--- NOTE | 2024-05-14 00:27 | EX.ED.DYSGE1 ---
HPI History of Present Illness Chief Complaint: Other, Pain/Inj Informant: patient, family and EMS Narrative Narrative: Patient is a 73-year-old female with past medical history of epilepsy and bipolar disorder. She has been on Depakote for a reported 40 years. Secondary to recent side effects of hyponatremia and hyperammonemia her specialist/neurologist tapered her off the medication. Patient states that since coming off the medication she has had increased weakness and worsening of her bipolar disorder. She has been in the ER twice in the last 10 days on the and secondary to her symptoms of weakness and underwent workup which revealed no clinically significant findings. Patient states she feels that all she needs is a new prescription for her Depakote to make her feel better and therefore he called EMS to bring her in for evaluation. Otherwise she denies any homicidal or suicidal ideation [facility] Medical History Cough Malaise and fatigue Increased ammonia level Skin ulcer of groin with fat layer exposed Skin ulcer of abdomen Hyponatremia Osteoporosis Substance abuse Diabetes Kidney disease Type 2 diabetes mellitus Primary osteoarthritis, left shoulder Morbid obesity Osteoarthritis Weight gain Debility Prediabetes Obesity (BMI 30-39.9) Epilepsy Tumors Drug abuse Back problem Bilateral lower extremity edema Anemia Rib pain on right side Atypical chest pain DDD (degenerative disc disease) Wears glasses Loose, teeth Cancer Arthritis Walker as ambulation aid Bladder disease Low iron High cholesterol Hepatitis Injury of back Injury of head and neck Seizures Dietary restriction Gastric reflux Shortness of breath on exertion History of edema History of stress test Hypertension Dermatitis Venous insufficiency of both lower extremities Hyponatremia Dizziness Urinary incontinence Frequent falls Left ankle pain Left wrist fracture Flu vaccine need Neoplasm of skin of nose Intertrigo Cutaneous candidiasis Abdominal pain Actinic keratoses Neoplasm of skin of eyelid Manic episode Neurofibroma of neck Intradermal nevus Hemangioma of face Benign neoplasm of skin of cheek Basal cell carcinoma of right medial cheek Basal cell carcinoma of upper lip Basal cell carcinoma of right forehead Multiple personalities Panic attacks History of UTI Kidney failure COPD (chronic obstructive pulmonary disease) Dissociative identity disorder Home Medications ?Medication ?Instructions ?Recorded ?Last Taken ?Type acetaminophen 650 mg 650 mg PO Q12H PRN pain 01/23/21 Unknown History tablet,extended release (Tylenol Arthritis Pain) Handicap Placard #1 ea 02/07/21 Unknown Rx inhalational spacing device #1 ea 06/26/21 Unknown Rx (POCKET CHAMBER spacer) ascorbic acid (vitamin C) 500 mg 500 mg PO DAILY vitamin 07/08/22 Unknown History capsule Incentive Spirometer #1 ea 08/05/22 Unknown Rx blood sugar diagnostic (FreeStyle #100 ea 07/15/23 Unknown Rx Lite Strips) lancets 28 gauge (FreeStyle #200 ea 07/15/23 Unknown Rx Lancets) denosumab 60 mg/mL subcutaneous 60 mg subcut [id number] bone health 09/25/23 Unknown Rx syringe (Prolia) #1 mL metoprolol succinate 50 mg 50 mg PO DAILY blood pressure #90 12/03/23 Unknown Rx tablet,extended release 24 hr tabs walker (Ultra-Light Rollator misc) #1 ea 12/10/23 Unknown Rx blood-glucose meter (FreeStyle #1 ea 01/29/24 Unknown Rx Lite Meter kit) fesoterodine 4 mg tablet,extended 4 mg PO DAILY bladder spasms #30 01/29/24 Unknown Rx release 24 hr tabs mirabegron 50 mg tablet,extended 50 mg PO QDAY 01/29/24 Unknown History release 24 hr (Myrbetriq) divalproex 250 mg tablet,extended 250 mg PO BID #60 tabs 02/02/24 Unknown Rx release 24 hr lamotrigine 200 mg tablet 200 mg PO QHS depression #30 tabs 02/03/24 Unknown Rx Hospital Bed with 1/2 rails #1 ea 02/04/24 Unknown Rx mattress for hospital bed #1 ea 02/24/24 Unknown Rx benzonatate 100 mg capsule 100 mg PO BID-TID PRN cough #90 03/03/24 Unknown Rx caps calcium carbonate 600 mg PO BID PRN supplement #180 04/11/24 Unknown Rx tabs ferrous sulfate 324 mg (65 mg 324 mg PO Q OTHER DAY supplement 04/11/24 Unknown Rx iron) tablet,delayed release #90 tabs hydralazine 100 mg tablet 100 mg PO TID blood pressure 3 04/11/24 Unknown Rx months #270 tabs meloxicam 7.5 mg tablet 7.5 mg PO DAILY PRN pain #60 tabs 04/11/24 Unknown Rx metoprolol succinate 25 mg 25 mg PO QHS blood perssure #90 04/11/24 Unknown Rx tablet,extended release 24 hr tabs rosuvastatin 40 mg tablet 40 mg PO DAILY cholesterol #90 tabs 04/11/24 Unknown Rx guaifenesin 600 mg tablet, See Rx Instructions PO BID #180 04/22/24 Unknown Rx extended release 12 hr (Mucinex) tabs albuterol sulfate 90 mcg/actuation 1 - 2 puff inhalation Q4H PRN PRN 04/28/24 Unknown Rx aerosol inhaler (Ventolin HFA) Wheezing ##1 metformin 500 mg tablet,extended 500 mg PO BID diabetes #60 tabs 04/28/24 Unknown Rx release 24 hr hydroxyzine pamoate 25 mg capsule See Rx Instructions PO .COMPLEX 05/03/24 Unknown Rx PRN Anxiety #60 CAPSULES lactulose 10 gram/15 mL oral 10 g PO DAILY laxative 05/07/24 Unknown History solution cariprazine 1.5 mg capsule 1.5 mg PO Q24H depression #30 caps 05/11/24 Unknown Rx Allergy/AdvReac Type Severity Reaction Status Date / Time iloperidone (From Fanapt) Allergy Severe Other Verified 05/07/24 06:35 paliperidone (From Invega) Allergy Severe increased Verified 05/07/24 06:35 psychiatric symptoms lurasidone (From Latuda) Allergy Other Verified 05/07/24 06:35 trazodone AdvReac Severe Other Verified 05/07/24 06:35 theophylline AdvReac Other Verified 05/07/24 06:35 Family History Brother Colon cancer Lung cancer Aunt Obesity Sister Obesity Mother Rheumatoid arthritis Father Alzheimer disease Brother Alzheimer disease Surgical History History of carpal tunnel surgery History of basal cell carcinoma excision History of excision of lesion History of endoscopy History of cholecystectomy History of colonoscopy History of hernia repair History of 3 sections H/O hernia repair H/O: hysterectomy History of Social History Smoking Status: Current some day smoker tobacco type: cigarettes Tobacco: How many years used: 20 how long ago did patient quit smoking: second hand exposure: No alcohol intake: never substance use type: former substance user Date of last use: Cocaine what type of physical activity do you participate in: none vince/orthodoxy: Rastafari seatbelt use: always ROS ROS ED Constitutional Constitutional ED: Denies chills or fever(s) Eyes Eyes: Denies blurry vision or change in vision ENT ENT ED: Denies rhinorrhea or sore throat Cardiovascular Cardiovascular: Denies chest pain, palpitations or racing heartbeat Respiratory/Chest Respiratory/Chest: Denies cough or dyspnea Gastrointestinal Gastrointestinal: Denies abdominal pain, diarrhea, nausea or vomiting Genitourinary Genitourinary ED: Denies dysuria Musculoskeletal Musculoskeletal: Denies myalgias Integumentary Denies rash Neurologic Neurologic: Reports weakness; Denies headache(s) Psychiatric Psychiatric: Denies suicidal ideation or suicidal thoughts Hematologic/Lymphatic Hematologic/Lymphatic: Denies easy bleeding or easy bruising EXAM Physical Exam Const Vital Signs: 05/13/24 23:55 05/14/24 00:28 Temperature 96.5 F L 98.2 F Temperature Source Temporal Pulse Rate 82 80 Respiratory Rate 16 16 Blood Pressure 145/86 H 148/86 H Blood Pressure Mean 105 106 Pulse Ox 92 100 Positive well nourished, well developed and obese General Appearance ED: well developed; Negative for pallor Nutritional Appearance: obese HEENT HEENT Narrative: Normocephalic atraumatic Eyes PERRL and EOMs intact bilaterally General Eye ED: Negative for scleral icterus Neck supple Neck Narrative: No nuchal rigidity or meningeal signs Resp normal respiratory effort and clear to auscultation bilaterally Resp Narrative: Breath sounds are diminished throughout but overall clear to auscultation without signs of respiratory distress Cardio regular rate and regular rhythm Rate: other Other Details: Radial and carotid pulses are equal and symmetric GI normal to inspection, nondistended, normoactive bowel sounds, non-tender, non-distended and no masses GI Narrative: No voluntary guarding or rigidity or pulsatile mass Auscultation: normoactive bowel sounds Palpation: soft Extremity Extremity Narrative: +1 pitting edema to the bilateral lower extremities that is equal and symmetric Neuro oriented x3, CN's II-XII intact bilaterally and no sensory deficits noted Neuro Narrative: Cranial nerves II through XII are grossly intact without focal neurologic deficit Patient does have weakness of the bilateral lower extremities with strength plus 3 out of 5 but this is equal bilaterally without focal change. Sensorium / Orientation: alert Psych mental status grossly normal Psych Narrative: No homicidal or suicidal ideation no findings of excessive linnea Skin no rashes or lesions noted General Skin Exam: Negative for jaundice or pallor MDM MDM MDM Narrative Medical decision making narrative: Patient presented to the ER with stable vitals and her only request at this evaluation and was to be started back on her Depakote. I informed the patient that there is a direct note from her neurologist stating he does not want her to be on the medication and therefore I cannot provide her with a at this time or new prescription. I did offer repeat evaluation with blood work to ensure her labs are within normal limits and at her baseline. She states that she is had this done in the last week or so and that her labs have all been normal. She does not want that performed again at this time. She also is not homicidal or suicidal or displaying excessive linnea and therefore there is no need for pink slip for psychiatric evaluation. I discussed potential physical therapy referral but patient states she is already undergoing that at this time. Therefore as I cannot provide her in the Depakote she wishes she states she will just return home with her daughter and follow-up on an outpatient basis with her neurologist or seek a second opinion in order to get back on her medication History & Record Review Discussion w/independent historian: Patient and Family Discharge Plan Triage Chief Complaint: Other, Pain/Inj ED Provider: Rolf Mackenzie Dx/Rx/DC Orders Clinical Impression: Generalized weakness, Bipolar disorder, COPD (chronic obstructive pulmonary disease), Epilepsy Instructions: ED Weakness (Uncertain Cause) Prescriptions: No Action acetaminophen [Tylenol Arthritis Pain] 650 mg tablet extended release 650 mg PO Q12H PRN (Reason: pain) ascorbic acid (vitamin C) 500 mg capsule 500 mg PO DAILY (DME) Incentive Spirometer See Rx Instructions .Route .MEDSUPPLY Qty: 1 0RF Rx Instructions: As directed Prolia 60 mg/mL syringe 60 mg subcut [id number] Qty: 1 2RF Myrbetriq 50 mg tablet extended release 24 hr 50 mg PO QDAY divalproex 250 mg tablet extended release 24 hr 250 mg PO BID Qty: 60 0RF Rx Instructions: Months #2: Take 1 tablet twice daily lamotrigine 200 mg tablet 200 mg PO QHS Qty: 30 6RF Rx Instructions: TAKE ONE TABLET BY MOUTH AT BEDTIME metformin 500 mg tablet extended release 24 hr 500 mg PO BID Qty: 60 3RF guaifenesin [Mucinex] 600 mg tablet extended release 12hr See Rx Instructions PO BID Qty: 180 0RF Rx Instructions: 1-2 tablets orally twice a day; hydroxyzine pamoate 25 mg capsule See Rx Instructions PO .COMPLEX PRN (Reason: Anxiety) Qty: 60 0RF Rx Instructions: Take 25 mg BID PRN for anxiety and 50 mg qHS for sleep lactulose 10 gram/15 mL solution 10 g PO DAILY [place] [place] Handicap Placard See Rx Instructions .ROUTE .MEDSUPPLY Qty: 1 0RF Rx Instructions: As directed, length of time 5 years ([facility] [place] POCKET CHAMBER Spacer See Rx Instructions .ROUTE .MEDSUPPLY Qty: 1 0RF Rx Instructions: As directed ([facility] [place] FreeStyle Lite Strips Strip See Rx Instructions .MEDSUPPLY Qty: 100 3RF Rx Instructions: check blood glucose daily for type 2 DM (DME) lancets [FreeStyle Lancets] 28 gauge misc See Rx Instructions .MEDSUPPLY Qty: 200 3RF Rx Instructions: check blood glucose daily for type 2 DM metoprolol succinate 50 mg tablet extended release 24 hr 50 mg PO DAILY Qty: 90 3RF ([facility] [place] Ultra-Light Rollator Misc See Rx Instructions .Route Qty: 1 0RF Rx Instructions: As directed fesoterodine 4 mg tablet extended release 24 hr 4 mg PO DAILY Qty: 30 0RF ([facility] [place] blood-glucose meter [FreeStyle Lite Meter] Kit See Rx Instructions .MEDSUPPLY Qty: 1 0RF Rx Instructions: As directed, check blood glucose daily for type 2 DM ([facility] [place] Hospital Bed with 1/2 rails See Rx Instructions .Route .MEDSUPPLY Qty: 1 0RF Rx Instructions: As directed ([facility] [place] mattress for hospital bed See Rx Instructions .Route .MEDSUPPLY Qty: 1 0RF Rx Instructions: One mattress compatible with incoming hospital bed benzonatate 100 mg capsule 100 mg PO BID-TID PRN (Reason: cough) Qty: 90 2RF metoprolol succinate 25 mg tablet extended release 24 hr 25 mg PO QHS Qty: 90 2RF calcium carbonate 600 mg calcium (1,500 mg) tablet 600 mg PO BID PRN (Reason: supplement) Qty: 180 2RF meloxicam 7.5 mg tablet 7.5 mg PO DAILY PRN (Reason: pain) Qty: 60 2RF hydralazine 100 mg tablet 100 mg PO TID 90 Days Qty: 270 2RF rosuvastatin 40 mg tablet 40 mg PO DAILY Qty: 90 2RF ferrous sulfate 324 mg (65 mg iron) tablet,delayed release (DR/EC) 324 mg PO Q OTHER DAY Qty: 90 2RF albuterol sulfate [Ventolin HFA] 90 mcg/actuation HFA aerosol inhaler 1 - 2 puff inhalation Q4H PRN PRN (Reason: Wheezing) Qty: 1 0RF cariprazine 1.5 mg capsule 1.5 mg PO Q24H Qty: 30 1RF Rx Instructions: TAKE ONE CAPSULE BY MOUTH EVERY DAY Primary Care Provider: Esperanza Baird Referrals: Esperanza Baird MD [Primary Care Provider] - Activity Restrictions/Additional Instructions: Please seek a second opinion from a different neurologist regarding your need for Depakote and continue all of your other medications as directed by your doctor Print Language: Belarusian Disposition Disposition: Home, Self Care Discharge Date/Time: 05/14/24 01:06
[2024-05-14 00:28] VITALS: BP 148/86; PULSE 80; RESP 16; TEMP 36.8; O2SAT 100
== END 2024-05-14 01:06 | disposition home or self-care (01) ==
LOC: ED 05-14 00:44
PROVIDERS: Emergency Provider Emergency Medicine; PCP Internal Medicine; Visit Provider Emergency Medicine
DX: R53.1 Weakness (principal); F31.9 Bipolar disorder, unspecified; J44.9 Chronic obstructive pulmonary disease, unspecified; G40.909 Epilepsy, unspecified, not intractable, without status epilepticus; E11.9 Type 2 diabetes mellitus without complications; F17.210 Nicotine dependence, cigarettes, uncomplicated; E78.00 Pure hypercholesterolemia, unspecified; K21.9 Gastro-esophageal reflux disease without esophagitis; I10 Essential (primary) hypertension; Z79.899 Other long term (current) drug therapy; E66.9 Obesity, unspecified
CPT/HCPCS: 99282

== ENCOUNTER → 2024-05-26 | Outpatient (CLI) | payer MEDICARE, MEDICAID, SELFPAY ==
[2024-05-26 15:47] LABS: Anion Gap 3 (5-15); BUN 11 mg/dL (7-18); BUN/Creat Ratio 11.3 RATIO (10-20); Calcium,Total 9.1 mg/dL (8.5-10.1); Chloride 107 mmol/L (98-107); Creatinine, Serum 0.98 mg/dL (0.55-1.02); EST Glomerular Filtration Rate 60 mL/min (>60); Est Glom Filt Rate - Afr Amer 72 mL/min (>60); Glucose 100 mg/dL (74-106); Magnesium 2.2 mg/dL (1.6-2.6); Potassium 4.4 mmol/L (3.5-5.1); Sodium Level 136 mmol/L (136-145)
[2024-05-31 11:59] LABS: Lamotrigine (Lamictal) Level 5.8 ug/mL (2.0-20.0)
== END | disposition home or self-care (01) ==
LOC: BIMLAB 14:05
PROVIDERS: Psychiatry & Neurology Neurology; PCP Internal Medicine; Referring Provider Internal Medicine; Visit Provider Internal Medicine
DX: G40.909 Epilepsy, unspecified, not intractable, without status epilepticus (principal); I10 Essential (primary) hypertension
CPT/HCPCS: 36415; 80048; 82140; 82542; 83735

== ENCOUNTER 2024-05-31 21:36 | Emergency (ER) | payer MEDICARE, MEDICAID, SELFPAY ==
[2024-05-31 21:36] VITALS: BP 187/98; PULSE 87; RESP 16; TEMP 36.6; O2SAT 95; BMI 38.8
--- NOTE | 2024-05-31 22:58 | ED.RN ---
Called for pt, no answer.
== END 2024-05-31 22:58 | disposition left against medical advice (07) ==
LOC: ED 23:01
PROVIDERS: PCP Internal Medicine
DX: Z53.21 Procedure and treatment not carried out due to patient leaving prior to being seen by health care provider (principal)

== ENCOUNTER → 2024-06-09 | Outpatient (CLI) | payer MEDICARE, MEDICAID, SELFPAY | END | disposition home or self-care (01) | LOC: BIMLAB 08:03 | PROVIDERS: PCP Internal Medicine; Referring Provider Internal Medicine; Visit Provider Internal Medicine | DX: E72.20 Disorder of urea cycle metabolism, unspecified (principal) | CPT/HCPCS: 36415; 82140 ==

== ENCOUNTER 2024-06-29 14:30 | Outpatient (RCR) | payer MEDICARE, MEDICAID, SELFPAY ==
--- NOTE | 2024-01-08 15:08 | HP.PTEVAL_ITS ---
Patient's Visit Information Visit Information Visit Information: ALEXIA POWELL is a 73 year old F referred to Physical Therapy by Dr. Esperanza Baird MD with a diagnosis of MALIASE , UNSPECIFIED OSTEOARTHRITIS. Date of Evaluation: 01/08/24 Physical Therapist: Isaías Schneider, PT, Cert MDT, OCS Visit Plan Duration: 6 Weeks Plan: PT INTERVENTIONS ENDURANCE PROGRAM ,STRENGTHENING BLE ,FUNCTIONAL STRENGTHENING AND BALANCE PROGRAM Subjective Subjective: This 73 y/o female presents to physical therapy with debility and and weakness. Patient developed illness in Sep 2023 patient went to [facility] ammonia level elevated and low sodium along with kidney and liver dysfunction ,developed pneumonia. Had multiple falls due to illness. Once ,patient became medical stable transferred to SNF for Rehab for~ 1 month. Patient had [facility] PT for 3 weeks and home nursing care. Patient has ENDOCRINOLOGY NURSE 3 x/week assist with bathing ,patient able to dressing. ENDOCRINOLOGY NURSE does cleaning cooking assist and patient receives meals on wheels. Patient lives in apartment with no stairs walk-in shower with seat and grab bars. Patient c/o global pain. Patient denies paresthesia/tingling . Patient sleeps in hospital bed. Patient stated 1 year did not need rollator. Patient current uses rollator. Patient has limitations with ADLS and housework tasks with decrease endurance sna strength. Patient goals to get stronger SOCAIL: lives alone Pain Bilateral Knee: Pain Intensity (Out of 10): 7 Pain Intensity Range: 10 Bilateral Shoulder: Pain Intensity (Out of 10): 8 Objective Objective: POSTURE: mild forward posture ,hips/knees flexed NEURO: denies paresthesia/tingling BALANCE: fair+ with fww GAIT: ambulate with rollator mild forward posture reciprocal pattern slow keo AROM: supine knee flexion 5-110 degrees ,shoulder flexion < 90 degrees for flexion/abduction MMT: quads/hams 4/5 ,( peak force) hip flexion right 21.8 ,left 20.1 ,,hip abd 12.7 leeft ,right 11.9,ankle 4/5 Balance/Special Test Scores CATSIB Score (Max score 120 seconds): 65 Lower Extremity Functional Score: 22 30 Second Chair Rise Test Seconds: 7 Goals Goal 1:: Patient to be I with HEP for weakness Goal Time Frame: 4-6 Weeks Goal 2:: Patient to demonstrate 50% improvement with endurance and function Goal Time Frame: 4-6 Weeks Goal 3:: Patient to improve strength paek force of hips by 5-10 # to improve function and walking Goal Time Frame: 4-6 Weeks Goal 4:: Patient to improve 30sec sit-stand by 3-5reps to improve functional st rength Goal Time Frame: 4-6 Weeks Goal 5:: Patient to improve LFES score by 5 points to improve QOL and function Goal Time Frame: 4-6 Weeks Rehabilitation Potential Physical Therapy Diagnosis: Patient was hospitalized with multiple illness and Rehab at SNF thus has deficits with weakness ,endurance causes impairments with gait and balance impairs ADL's thus benefit from skilled PT Rehabilitation Potential: Good Anticipated Interventions Patient/Client Instruction: Educate patient on: Condition and Plan of Care For the Purpose of:: To decrease pain, To increase ROM, To improve nutrient delivery to tissue, To improve muscle performance and motor function, To increase tolerance to activity/condition/position, To improve ability of physical actions for home/community/work/leisure, To improve health of tissue, To decrease soft tissue restriction, To increase flexibility/ROM, To improve endurance, To improve balance and To improve tolerance to ADL's Therapeutic Exercise to Include: Strength training, Power training, Endurance training, Balance training, Gait and locomotor training and Dynamic Lumbar Stabilization For the Purpose of:: To decrease pain, To increase ROM, To improve muscle performance and motor function, To increase tolerance to activity/condition/position, To improve ability of physical actions for home/ community/work/leisure, To improve health of tissue, To decrease soft tissue restriction and To increase flexibility/ROM Text: Thank you for the opportunity to evaluate your patient. For Medicare and Medicare HMO plans, please review the plan of care and approve it. It will need to be FAXED BACK to us at [phone] for Medicare purposes. For Medicare only, by signing this I certify the plan of care. Please let me know if there are questions or concerns regarding this plan of care. Physician Signature: Date:
--- NOTE | 2024-02-22 12:06 | HP.PTEVAL2_ITS ---
Patient's Visit Information Visit Information Visit Information: ALEXIA POWELL is a 73 year old F referred to Physical Therapy by Dr. Esperanza Baird MD with a diagnosis of L shoulder OA. Date of Evaluation: 02/19/24 Physical Therapist: Marlo Rodríguez DPT Visit Plan Frequency: 2x /Week Duration: 6 Weeks Plan: 1) US to lateral subacromial space. 2) AAROM of L shoulder, PROM with inferior and multidirectional glides 3) mid range strengthening or deltoid and periscapular muscles. Subjective Subjective: Pt. is here today for her initial evaluation with diagnosis of arthritis of L GH joint. Pt. reports having high levels of L shoulder pain for a few months now. She has increased difficulty with lifting her arm. Pt. reports having 5/10 pain at rest and 8/10 with any movement over her head or behind her back. Pt. reports seeing physician whom reports she has arthritis in her shoulder. She is having increased pain with sleeping, but mostly with any movements of her shoulder. Decreased pain, rest, keeping arm at her side. She does use a walker for mobility and reports increased pain with leaning on her walker. Pt. did have a recent stint in the hospital and has been pretty debilitated since. Pt. is also wanting to have a TKA, but would not be able to use walker well enough due to her arm, patient reports. Her main goal is to get her shoulder better in order to have a TKA. Pain L shoulder: Intensity: 5 Pain Intensity Range: 4 and 8 Objective Objective: POSTURE: PT. has general flexed posture, rounded shoulders with use of AD to stabilize. PALPATION: Pt. has tenderness at GH point, subacromial space and biceps region. NEURO: normal throughout. ROM: L shoulder: AROM: flexion 95deg, abd 75deg, functional ER ear, funtional IR L gluteal region. PROM: L shoulder: flexion 130deg, abd 90deg, ER at 30deg 30deg, IR at 40deg of abd 15deg. MMT: L shoulder: flexion 3+/5, abd 3+/5, ext 4/5, ER 3+/5, IR 4/5, Pain with all movements. Special Tests Empty Can - SS: Positive Belly Press - SupScap: Positive Neer - Impingement: Positive Cardozo Serge - Impingement: Positive Biceps Load Test - Labrum: Positive Goals Goal 1:: LTG: Pt. to be I with HEP with L shoulder ROM and strengthening. Goal Time Frame: 4-6 Weeks Goal 2:: STG: Pt. to have increased L shoulder AROM to 130deg flexion with 0- 2/10 pain Goal Time Frame: 2-4 Weeks Goal 3:: LTG: Pt. to have full L shoulder ROM without increase in symptoms. Goal Time Frame: 4-6 Weeks Goal 4:: LTG: Pt. to have increased L shoulder strength symmetrical to R side. Goal Time Frame: 4-6 Weeks Goal 5:: LTG: Pt to complete all ADLs without increase in L shoulder pain. Goal Time Frame: 4-6 Weeks Rehabilitation Potential Physical Therapy Diagnosis: Pt. has signs and symptoms consistent with L shoulder OA. Pt. has marked hypomobility, weakness, and high levels of pain. Pt. would benefit from PT to address the above limiations progressing back to all recreational activities without limitations. Rehabilitation Potential: Good Anticipated Interventions Patient/Client Instruction: Educate patient on: Condition, Plan of Care, Risk Factors and Benefits of Fitness Program For the Purpose of:: To improve decision making, To facilitate caregiver knowledge, To improve self management, To prevent re-injury, To improve ability to perform tasks related to life management and To improve tolerance to ADL's Therapeutic Exercise to Include: Strength training, Power training, Endurance training, Flexibilty training, Passive ROM, Active ROM and Scapular Strength/Stabilization For the Purpose of:: To decrease pain, To increase ROM, To improve nutrient delivery to tissue, To improve ability of physical actions for home/community/work/leisure, To improve gait and locomotor functions, To improve health of tissue, To decrease soft tissue restriction and To increase flexibility/ROM Ultrasound (thermal/non thermal): Yes For the Purpose of:: To decrease pain, To decrease swelling/inflammation and To increase ROM text: Thank you for the opportunity to evaluate your patient. For Medicare and Medicare HMO plans, please review the plan of care and approve it. It will need to be FAXED BACK to us at [phone] for Medicare purposes. For Medicare only, by signing this I certify the plan of care. Please let me know if there are questions or concerns regarding this plan of care. Physician Signature: Date:
--- NOTE | 2024-03-04 10:57 | HP.PTREVAL ---
Re-Evaluation Intro: Dr. Esperanza Baird MD, It has been my pleasure to treat ALEXIA POWELL over the last 8 visits for MALIASE , UNSPECIFIED OSTEOARTHRITIS. Please see the progress note below for an update on the physical therapy plan of care! Subjective Subjective: Patient doing better ,in the sense of walking with rollator slowly getting stronger Objective Objective/Function: POSTURE: mild forward posture ,hips/knees flexed NEURO: denies paresthesia/tingling BALANCE: fair+ with fww GAIT: ambulate with rollator mild forward posture reciprocal pattern slow keo AROM: supine knee flexion 5-110 degrees ,shoulder flexion < 90 degrees for flexion/abduction MMT: quads/hams 4/5 ,( peak force) hip flexion right 26.6 ,left 22.1 ,,hip abd 13.7 left ,right 12.9,ankle 4/5 Plan Plan Plan: PT INTERVENTIONS ENDURANCE PROGRAM ,STRENGTHENING BLE ,FUNCTIONAL STRENGTHENING AND BALANCE PROGRAM Balance/Gait/Functional tests Balance/Special Test Scores CATSIB Score (Max score 120 seconds): 71 Lower Extremity Functional Score: 22 Quick DASH Score: 75.0000 30 Second Chair Rise Test Seconds: 8 Goals Goals Goal 1:: Patient to be I with HEP for weakness Goal Time Frame: 4-6 Weeks Goal Progress: Progressing Goal 2:: Patient to demonstrate 50% improvement with endurance and function Goal Time Frame: 4-6 Weeks Goal Progress: Progressing Goal 3:: Patient to improve strength paek force of hips by 5-10 # to improve function and walking Goal Time Frame: 4-6 Weeks Goal Progress: Progressing Goal 4:: Patient to improve 30sec sit-stand by 3-5reps to improve functional strength Goal Time Frame: 4-6 Weeks Goal Progress: Progressing Goal 5:: Patient to improve LFES score by 5 points to improve QOL and function Goal Time Frame: 4-6 Weeks Anticipated Interventions Anticipated Interventions Patient/Client Instruction: Educate patient on: Condition and Plan of Care For the Purpose of:: To decrease pain, To increase ROM, To improve nutrient delivery to tissue, To improve muscle performance and motor function, To increase tolerance to activity/condition/position, To improve ability of physical actions for home/community/work/leisure, To improve health of tissue, To decrease soft tissue restriction, To increase flexibility/ROM, To improve endurance, To improve balance and To improve tolerance to ADL's Therapeutic Exercise to Include: Strength training, Power training, Endurance training, Balance training, Gait and locomotor training and Dynamic Lumbar Stabilization For the Purpose of:: To decrease pain, To increase ROM, To improve muscle performance and motor function, To increase tolerance to activity/condition/position, To improve ability of physical actions for home/community/work/leisure, To improve health of tissue, To decrease soft tissue restriction and To increase flexibility/ROM Re-Evaluation Ending Re-evaluation ending: Please do not hesitate to contact me at [phone] by phone or if you have questions or concerns regarding this new plan of care! Sincerely, Isaías Schneider, PT, Cert MDT, OCS
--- NOTE | 2024-04-25 15:04 | HP.PTRE(2)_ITS ---
Re-Evaluation Intro: Dr. Esperanza Baird MD, It has been my pleasure to treat ALEXIA POWELL over the last 11 visits for L shoulder OA. Please see the progress note below for an update on the physical therapy plan of care! Subjective Subjective: Pt. reports overall about the same. Not much change with her left shoulder. Pt. reports that her back is getting stronger though. Objective Objective/Function/Assessment: AROM: L shoulder flexion 90deg, abd 50deg, functional IR gluteal range, function ER C2 aberrant motion. PROM: L shoulder flexion 110deg, abd 90deg, ER at 90deg 15deg, IR at 90 40deg Pt. had increased pain with all end ranges of motion. Hypomobility noted with all PROM as well. MMT: LUE: ER 4.4#, IR 6.6#, flex 7.6#, abd 14.3# RUE: ER 10.7#, IR 11.4#, flex 15.2#, abd 12.7# Pt. has a marked difference in strength between R and L UEs with strength and ROM. Pt. has had an improvement with her ROM both actively and passively. She does continue to have decreased strength and limited use secondary to pain. Plan Plan Plan: I am asking for more visits x2 per week for 6 weeks. Progress strength and ROM as able. Add in deltoid strengthening. Can use US as needed for pain control, but focus on strengthening in available ranges hopefully progressing as we strengthen. Goals Goals Goal 1:: LTG: Pt. to be I with HEP with L shoulder ROM and strengthening. Goal Time Frame: 4-6 Weeks Goal Progress: Progressing Goal 2:: STG: Pt. to have increased L shoulder AROM to 130deg flexion with 0- 2/10 pain Goal Time Frame: 2-4 Weeks Goal Progress: Progressing Goal 3:: LTG: Pt. to have full L shoulder ROM without increase in symptoms. Goal Time Frame: 4-6 Weeks Goal Progress: Progressing Goal 4:: LTG: Pt. to have increased L shoulder strength symmetrical to R side. Goal Time Frame: 4-6 Weeks Goal Progress: Progressing Goal 5:: LTG: Pt to complete all ADLs without increase in L shoulder pain. Goal Time Frame: 4-6 Weeks Goal Progress: Progressing Anticipated Interventions Anticipated Interventions Patient/Client Instruction: Educate patient on: Condition, Plan of Care, Risk Factors and Benefits of Fitness Program For the Purpose of:: To improve decision making, To facilitate caregiver knowledge, To improve self management, To prevent re-injury, To improve ability to perform tasks related to life management and To improve tolerance to ADL's Therapeutic Exercise to Include: Strength training, Power training, Endurance training, Flexibilty training, Passive ROM, Active ROM and Scapular Strength/Stabilization For the Purpose of:: To decrease pain, To increase ROM, To improve nutrient delivery to tissue, To improve ability of physical actions for home/community/work/leisure, To improve gait and locomotor functions, To improve health of tissue, To decrease soft tissue restriction and To increase flexibility/ROM Ultrasound (thermal/non thermal): Yes For the Purpose of:: To decrease pain, To decrease swelling/inflammation and To increase ROM Re-Evaluation Ending Re-evaluation ending: Please do not hesitate to contact me at [phone] by phone or if you have questions or concerns regarding this new plan of care! Sincerely, Marlo Rodríguez DPT
--- NOTE | 2024-04-25 15:24 | HP.PTREVAL ---
Re-Evaluation Intro: Dr. Esperanza Baird MD, It has been my pleasure to treat ALEXIA POWELL over the last 19 visits for MALIASE , UNSPECIFIED OSTEOARTHRITIS. Please see the progress note below for an update on the physical therapy plan of care! Subjective Subjective: Been getting stronger ,PT has been stronger overall Plan to see DR Interiano Objective Objective/Function: *Patient will benefit from skilled PT due to complexity of issues with medical and decrease endurance weakness impairs gait and ADLS thus gaols and adjusted appropriate* POSTURE: mild forward posture ,hips/knees flexed NEURO: denies paresthesia/tingling BALANCE: fair+ with fww GAIT: ambulate with rollator mild forward posture reciprocal pattern slow keo AROM: supine knee flexion 5-110 degrees ,shoulder flexion < 90 degrees for flexion/abduction MMT: quads/hams 4/5 ,( peak force) hip flexion right 35.1 ,left 31.9 ,,hip abd 15.7 left ,right 16.9,ankle 4/5 Plan Plan Plan: PT INTERVENTIONS ENDURANCE PROGRAM ,STRENGTHENING BLE ,FUNCTIONAL STRENGTHENING AND BALANCE PROGRAM Balance/Gait/Functional tests Balance/Special Test Scores CATSIB Score (Max score 120 seconds): 71 Lower Extremity Functional Score: 22 Quick DASH Score: 50.0000 30 Second Chair Rise Test Seconds: 8 Goals Goals Goal 1:: Patient to be I with HEP for weakness Goal Time Frame: 4-6 Weeks Goal Progress: Progressing Goal 2:: Patient to demonstrate 50% improvement with endurance and function Goal Time Frame: 4-6 Weeks Goal Progress: Progressing Goal 3:: Patient to improve strength paek force of hips by 5-10 # to improve function and walking ( new goal) Goal Time Frame: 4-6 Weeks Goal Progress: Progressing Goal 4:: Patient to improve 30sec sit-stand by 3-5reps to improve functional strength Goal Time Frame: 4-6 Weeks Goal Progress: Progressing Goal 5:: Patient to improve LFES score by 5 points to improve QOL and function Goal Time Frame: 4-6 Weeks Anticipated Interventions Anticipated Interventions Patient/Client Instruction: Educate patient on: Condition and Plan of Care For the Purpose of:: To decrease pain, To increase ROM, To improve nutrient delivery to tissue, To improve muscle performance and motor function, To increase tolerance to activity/condition/position, To improve ability of physical actions for home/community/work/leisure, To improve health of tissue, To decrease soft tissue restriction, To increase flexibility/ROM, To improve endurance, To improve balance and To improve tolerance to ADL's Therapeutic Exercise to Include: Strength training, Power training, Endurance training, Balance training, Gait and locomotor training and Dynamic Lumbar Stabilization For the Purpose of:: To decrease pain, To increase ROM, To improve muscle performance and motor function, To increase tolerance to activity/condition/position, To improve ability of physical actions for home/community/work/leisure, To improve health of tissue, To decrease soft tissue restriction and To increase flexibility/ROM Re-Evaluation Ending Re-evaluation ending: Please do not hesitate to contact me at [phone] by phone or if you have questions or concerns regarding this new plan of care! Sincerely, Isaías Schneider PT, Cert MDT, OCS
== END 2024-06-29 19:00 | disposition home or self-care (01) ==
LOC: PT 14:30
PROVIDERS: PCP Internal Medicine; Referring Provider Orthopaedic Surgery Sports Medicine; Visit Provider Orthopaedic Surgery Sports Medicine
DX: M19.90 Unspecified osteoarthritis, unspecified site (principal); R53.81 Other malaise
CPT/HCPCS: 97035; 97110; 97116; 97161; 97162; 97530

== ENCOUNTER → 2024-07-05 | Outpatient (CLI) | payer MEDICARE, MEDICAID, SELFPAY ==
--- NOTE | 2024-07-05 13:07 | BI_ITS ---
MAMMOGRAPHY - BILATERAL SCREENING REASON FOR EXAM: Female, 73 years old. Routine annual screening examination. PERTINENT HISTORY: Sister with breast cancer. TECHNIQUE: Digital bilateral breast isauar (3D mammographic acquisition) in the CC and MLO projections. 2-D mediolateral oblique (MLO) and craniocaudad (CC) views of both breasts were obtained. CAD: Full Field Digital Mammography with Computer Added Detection was performed. COMPARISON: Comparison is made with prior study dated January 20, 2023 and January 15, 2022. FINDINGS: Breast Composition: The breasts are almost entirely fatty. There are no dominant masses or suspicious calcifications. Stable benign-appearing left axillary lymph nodes. No other significant abnormalities are identified. There has been no significant change since the prior study. BI/SCRN MAMM (CAD)W/ISAURA BILAT IMPRESSION: Stable bilateral screening mammogram. Yearly follow-up mammogram recommended. (A) ASSESSMENT CATEGORY: BIRADS Category 2: Benign. A letter regarding these results will be sent to the patient by the facility within 30 days. Approximately 10% of breast cancers are not detected by mammography. A normal mammogram should not delay biopsy of a clinically suspicious abnormality. [id number] Electronically Signed: Wil Ortega MD at 14:21 EDT ,
== END | disposition home or self-care (01) ==
LOC: OPBI 13:07
PROVIDERS: PCP Internal Medicine; Referring Provider Internal Medicine; Visit Provider Internal Medicine
DX: Z12.31 Encounter for screening mammogram for malignant neoplasm of breast (principal)
CPT/HCPCS: 77063; 77067

== ENCOUNTER → 2024-08-08 | Outpatient (CLI) | payer MEDICARE, MEDICAID, SELFPAY ==
[2024-08-08 16:26] LABS: Absolute Lymphocyte Count 2.45 X10^3/uL (0.83-4.51); Absolute Neutrophil Count 7.9 X10^3/uL (2.0-7.7); Basophil# 0.04 X10^3/uL; Basophil% 0.4 % (0-1); Eosinophil# 0.08 X10^3/uL; Eosinophils% 0.7 % (0-5); Hemoglobin 13.8 g/dL (12.0-15.0); Lymphocyte # 2.45 X10^3/ul (0.83-4.51); Lymphocyte % 21.8 % (19-41); Mean Corp Hgb Conc 32.1 g/dL (32-36); Mean Corpuscular Hgb 30.7 pg (27.0-32.0); Mean Corpuscular Volume 95.8 fL (81-99); Mean Platelet Vol. 9.7 fl (6.2-12.0); Monocyte# 0.63 X10^3/uL; Monocyte% 5.6 % (0-10); NRBC Flagged by Analyzer 0 % (0-5); Neutrophil # 7.94 X10^3/uL (2.7-7.7); Neutrophil % 70.4 % (47-70); Platelet Count 597 K/mm3 (150-450); RBC Distribution Width CV 14.6 % (11.6-14.6); RBC Distribution Width SD 50.8 fl (35.1-43.9); Red Blood Count 4.49 M/mm3 (4.2-5.4); White Blood Count 11.3 K/mm3 (4.4-11.0)
[2024-08-08 16:39] LABS: ALB/GLOB Ratio 0.9 RATIO (0.9-2.4); AST(SGOT) 13 U/L (15-37); Alanine Aminotransfer ALT/SGPT 21 U/L (13-56); Albumin, Serum 3.4 g/dL (3.2-5.0); Alkaline Phosphatase 92 U/L (45-117); Anion Gap 3 (5-15); BUN 11 mg/dL (7-18); BUN/Creat Ratio 14.2 RATIO (10-20); Calcium,Total 10.1 mg/dL (8.5-10.1); Chloride 104 mmol/L (98-107); Creatinine, Serum 0.77 mg/dL (0.55-1.02); EST Glomerular Filtration Rate 78 mL/min (>60); Est Glom Filt Rate - Afr Amer 95 mL/min (>60); Globulin 3.7 g/dL (2.2-4.2); Glucose 115 mg/dL (74-106); Potassium 4.5 mmol/L (3.5-5.1); Protein, Total 7.1 g/dL (6.4-8.2); Sodium Level 136 mmol/L (136-145)
[2024-08-09 08:36] LABS: Hemoglobin A1c 5.8 % (3.8-5.6)
== END | disposition home or self-care (01) ==
LOC: BIMLAB 14:52
PROVIDERS: PCP Internal Medicine; Referring Provider Internal Medicine; Visit Provider Internal Medicine
DX: I10 Essential (primary) hypertension (principal); E11.9 Type 2 diabetes mellitus without complications; E72.20 Disorder of urea cycle metabolism, unspecified
CPT/HCPCS: 36415; 80053; 82140; 83036; 85025

== ENCOUNTER → 2024-11-10 | Outpatient (CLI) | payer MEDICARE, MEDICAID, SELFPAY ==
[2024-11-10 15:38] LABS: AST(SGOT) 25 U/L (15-37); Alanine Aminotransfer ALT/SGPT 34 U/L (13-56); Albumin, Serum 3.7 g/dL (3.2-5.0); Alkaline Phosphatase 92 U/L (45-117); Anion Gap 8 (5-15); BUN 11 mg/dL (7-18); BUN/Creat Ratio 14.6 RATIO (10-20); Calcium,Total 10.4 mg/dL (8.5-10.1); Chloride 100 mmol/L (98-107); Creatinine, Serum 0.76 mg/dL (0.55-1.02); EST Glomerular Filtration Rate 80 mL/min (>60); Est Glom Filt Rate - Afr Amer 97 mL/min (>60); Globulin 3.7 g/dL (2.2-4.2); Glucose 116 mg/dL (74-106); Potassium 4.4 mmol/L (3.5-5.1); Protein, Total 7.4 g/dL (6.4-8.2); Sodium Level 133 mmol/L (136-145)
[2024-11-10 16:43] LABS: Hemoglobin A1c 6.1 % (3.8-5.6)
[2024-11-10 16:59] LABS: Vitamin D,25 Hydroxy 37.6 ng/mL
[2024-11-15 15:08] LABS: Lamotrigine (Lamictal) Level 6.3 ug/mL (2.0-20.0)
== END | disposition home or self-care (01) ==
LOC: BIMLAB 13:59
PROVIDERS: Psychiatry & Neurology Neurology; PCP Internal Medicine; Referring Provider Internal Medicine; Visit Provider Internal Medicine
DX: E11.69 Type 2 diabetes mellitus with other specified complication (principal); G40.909 Epilepsy, unspecified, not intractable, without status epilepticus; M81.0 Age-related osteoporosis without current pathological fracture
CPT/HCPCS: 36415; 80053; 82140; 82306; 82542; 83036

== ENCOUNTER → 2024-12-16 | Outpatient (CLI) | payer MEDICARE, MEDICAID, SELFPAY ==
[2024-12-16 16:03] LABS: Hematocrit 43.2 % (37-47); Hemoglobin 14.3 g/dL (12.0-15.0); Mean Corp Hgb Conc 33.1 g/dL (32-36); Mean Corpuscular Hgb 31.3 pg (27.0-32.0); Mean Corpuscular Volume 94.5 fL (81-99); Mean Platelet Vol. 9.3 fl (6.2-12.0); Platelet Count 716 K/mm3 (150-450); RBC Distribution Width CV 15.9 % (11.6-14.6); RBC Distribution Width SD 55.4 fl (35.1-43.9); Red Blood Count 4.57 M/mm3 (4.2-5.4); White Blood Count 12.1 K/mm3 (4.4-11.0)
[2024-12-16 16:24] LABS: ALB/GLOB Ratio 1.3 RATIO (0.9-2.4); AST(SGOT) 25 U/L (<=31); Alanine Aminotransfer ALT/SGPT 24 U/L (<=34); Alkaline Phosphatase 101 U/L (35-104); Anion Gap 13 (5-15); BUN 13 mg/dL (4-19); BUN/Creat Ratio 18.2 RATIO (10-20); Calcium 9.4 mg/dL (7.6-11.0); Carbon Dioxide 19.7 mmol/L (22.0-29.0); Chloride 105 mmol/L (96-108); EST Glomerular Filtration Rate 92 (>60); Glucose 116 mg/dL (70-99); Potassium 4.1 mmol/L (3.3-5.1); Sodium Level 137 mmol/L (133-145); Total Bilirubin 0.27 mg/dL (0.00-1.30)
[2024-12-16 16:34] LABS: HIV Nonreactive (Nonreactive); Hepatitis B Surface Antibody Nonreactive; Hepatitis B Surface Antigen Nonreactive (Nonreactive)
[2024-12-18 08:07] LABS: Hepatitis A AB, Total Positive (Negative)
[2024-12-24 15:08] LABS: HCV Quant. RNA PCR HCV Not Detected IU/mL (.)
== END | disposition home or self-care (01) ==
LOC: BIMLAB 14:29
PROVIDERS: PCP Internal Medicine; Referring Provider Family Medicine; Visit Provider Family Medicine
DX: F11.20 Opioid dependence, uncomplicated (principal)
CPT/HCPCS: 36415; 80053; 85027; 86703; 86706; 86708; 87340; 87522; 87902

== ENCOUNTER 2024-12-27 14:00 | Outpatient (RCR) | payer MEDICARE, MEDICAID, SELFPAY ==
--- NOTE | 2024-08-17 15:54 | HP.PTREVAL_ITS ---
Re-Evaluation Intro: Dr. Robert Garcia MD, It has been my pleasure to treat ALEXIA POWELL over the last 22 visits for B shoulder OA. Please see the progress note below for an update on the physical therapy plan of care! Subjective Subjective: Pt. reports being 50% better overall. She reports continued pain in B shoulders (L worse than the R). She is still having pain in her R knee as well. Pt. reports being HEP compliant with all of her exercises. Pt. desires to get away from her rollator as well. Objective Objective/Function: ROM: R shoulder: flexion 70deg, abd 85deg, functional ER C2 aberrant motion, functional IR L2 L shoulder: flexion 76deg, 65deg, functional ER C1 aberrant motion, functional L SI region R knee: 0-0- 111deg. L knee: 0-0-121 deg. Pt. reports she is sleeping a little bit better, but bother her from time to time. No N/T noted. MMT: R knee: ext 19.3#, flexion 17.3# L knee: ext 25.9#, flexion 15.5# R shoulder: abd 11.8#, flexion 9.8#, ER 5.4#, IR 10.2# L shoulder abd 5.6# increase NW, flexion 6.9#, ER 4.3#, IR 9.3# 30 sec sit to stand rep test 12 reps TUG: with rollator- 22.6sec, 14.47sec without AD, increased sway and CGA without AD, 19.2 sec with SPC. GAIT: Pt. ambulated with SPC slight guarded posture, decreased B step length. Her pattern improved with VCing. Pt ambulate CARMEN with rollator. I am asking for further PT visits. Pt. continues to be limited with her B javad ulder strength and B LE strength. She has improved gait with both rollator and with SPC. She has very limited ER strength bilaterally, I fear B ER RTC tears and she has been recommended that she would need to have both B reverse total shoulders and also B knee replacements. She was not a good candidate due to her smoking. She reports trying to quit, but is having some difficulty. I recommended that she look into other resources from her physician to guide. Plan Plan Plan: Asking for further PT visits to work on gait, stability in stance with SPC. Work on BLE strengthening (functionally), mid trap strengthening periscapular strengthening. She has not been tolerating RTC strengthening very well. Balance/Gait/Functional tests Balance/Special Test Scores Quick DASH Score: 47.7250 30 Second Chair Rise Test Seconds: 12 Goals Goals Goal 1:: LTG: pt. to be I with HEP for B shoulder strengthening. Goal Time Frame: 4-6 Weeks Goal Progress: Progressing Goal 2:: STG: Pt. to be able to raise UEs over head with less than 2/10 pain in BUEs. Goal Time Frame: 2-4 Weeks Goal Progress: Progressing Goal 3:: LTG: Pt. to be able to sleep throughout the night without increase in B shoulder pain. Goal Time Frame: 4-6 Weeks Goal Progress: Progressing Goal 4:: LTG: pt. to have increased B shoulder strength by 5# throughout. Goal Time Frame: 2-4 Weeks Goal Progress: Progressing Goal 5:: Patient to improve strength peak force of knee by 5-10 # to improve function and walking (new goal) Goal Time Frame: 4-6 Weeks Goal Progress: Progressing Goal 6:: Patient to improve 30sec sit-stand by 3-5reps to improve functional strength (NEW GOAL) Goal Time Frame: 4-6 Weeks Goal Progress: Progressing Anticipated Interventions Anticipated Interventions Patient/Client Instruction: Educate patient on: Condition, Plan of Care, Risk Factors and Benefits of Fitness Program For the Purpose of:: To decrease pain, To increase ROM, To improve muscle performance and motor function, To increase tolerance to activity/condition/position, To improve performance and independence with ADL's, To improve ability of physical actions for home/community/work/leisure, To improve gait and locomotor functions, To foster healthy habits, To improve decision making, To facilitate caregiver knowledge, To improve self management, To prevent re-injury and To improve ability to perform tasks related to life management Therapeutic Exercise to Include: Strength training, Power training, Endurance training, Balance training, Postural training, Flexibilty training, Gait and locomotor training and Active ROM Comment: BLE QUADS/HAMS HIP For the Purpose of:: To decrease pain, To increase ROM, To improve nutrient delivery to tissue, To increase oxygenation perfusion, To improve muscle performance and motor function, To improve ability to perform ADL's, To facilitate caregiver knowledge, To prevent re-injury and To improve ability to perform tasks related to life management Manual Therapy Techniques to Include: Mobilization and Soft tissue mobilization For the Purpose of:: To decrease pain, To decrease swelling/inflammation, To increase ROM, To improve nutrient delivery to tissue, To increase oxygenation perfusion and To improve muscle performance and motor function Ultrasound (thermal/non thermal): Yes For the Purpose of:: To decrease pain and To decrease swelling/inflammation Re-Evaluation Ending Re-evaluation ending: Please do not hesitate to contact me at [phone] by phone or if you have questions or concerns regarding this new plan of care! Sincerely, Marlo Rodríguez DPT
--- NOTE | 2024-11-02 11:23 | HP.PTREVAL_ITS ---
Re-Evaluation Intro: Dr. Robert Garcia MD, It has been my pleasure to treat ALEXIA POWELL over the last 33 visits for B shoulder OA. Please see the progress note below for an update on the physical therapy plan of care! Subjective Subjective: Pt. reports overall a little bit but not a ton of change with B shoulder pain. She is lifting her arms a bit better. Pt. is hopeful to get away from her rollator. Pt. would like to be able to ambulate with a SPC. She has been using a cane at home a little bit, but does not feel safe outside. Pt. reports beint 50% better overall with her legs, but not as good of change with her shoulders. Objective Objective/Function: 30 sit to stand rep test 13 reps RLE: knee: ext 32.4#, flexion 21.8# LLE: knee: ext 34.4#, flexion 29.6# TU.8 sec with rollator, SPC: 17.08sec, no AD 16.85 6 MWT: 632 feet. with rollator GAIT: with rollator: pt. tends to lean on rollator, worse as she becomes tired. She tends to shuffle her feet as well as fatigue progresses. I would like her to work on walking with SPC in order to increase overall independence. Pt. reports needing to be walking with SPC in order to have a hip surgery along with quitting smoking. I would like to work on further BLE and hip strengthening, functional mobility and gait with SPC in order to acehieve these goals. At this point in time we really have not progressed much with her shoulder pain and I will DC the shoulder issue back to physician. I am asking for further visits to work on her stability with gait and progress to LRD. Goals adjusted to reflect new changes. Pt. has has a mew goals with strength ening and is now ready to progress to SPC for short community distances. Plan Plan Plan: Asking for further PT visits to work on gait, stability in stance with SPC. Work on BLE strengthening (functionally), mid trap strengthening periscapular strengthening. She has not been tolerating RTC strengthening very well. Balance/Gait/Functional tests Balance/Special Test Scores Lower Extremity Functional Score: 27 Quick DASH Score: 47.7250 TUG Test Time Seconds: 18.8 30 Second Chair Rise Test Seconds: 13 Goals Goals Goal 1:: LTG: pt. to be I with HEP for B shoulder strengthening. Goal Time Frame: 4-6 Weeks Goal Progress: Goal Met Goal 2:: STG: Pt. to be able to raise UEs over head with less than 2/10 pain in BUEs. Goal Time Frame: 2-4 Weeks Goal Progress: Not Progressing Goal 3:: NEW GOAL: Pt. to ambulate 350' with SPC with CARMEN allowing for increased mobility in community. Goal Time Frame: 6-8 Weeks Goal Progress: Progressing Goal 4:: NEW GOAL: LTG: Pt. to complete 6 MWT with rollator with distances of 850feet. Goal Time Frame: 4-6 Weeks Goal Progress: Progressing Goal 5:: Patient to improve strength peak force of knee by 5-10 # to improve function and walking (new goal) Goal Time Frame: 4-6 Weeks Goal Progress: Progressing Goal 6:: Patient to improve 30sec sit-stand to 15 reps indicating proper functional strength of BLEs. Goal Time Frame: 4-6 Weeks Goal Progress: Progressing Anticipated Interventions Anticipated Interventions Patient/Client Instruction: Educate patient on: Condition, Plan of Care, Risk Factors and Benefits of Fitness Program For the Purpose of:: To decrease pain, To increase ROM, To improve muscle performance and motor function, To increase tolerance to activity/condition/position, To improve performance and independence with ADL's, To improve ability of physical actions for home/community/work/leisure, To improve gait and locomotor functions, To foster healthy habits, To improve decision making, To facilitate caregiver knowledge, To improve self management, To prevent re-injury and To improve ability to perform tasks related to life management Therapeutic Exercise to Include: Strength training, Power training, Endurance training, Balance training, Postural training, Flexibilty training, Gait and locomotor training and Active ROM Comment: BLE QUADS/HAMS HIP For the Purpose of:: To decrease pain, To increase ROM, To improve nutrient delivery to tissue, To increase oxygenation perfusion, To improve muscle performance and motor function, To improve ability to perform ADL's, To facilitate caregiver knowledge, To prevent re-injury and To improve ability to perform tasks related to life management Manual Therapy Techniques to Include: Mobilization and Soft tissue mobilization For the Purpose of:: To decrease pain, To decrease swelling/inflammation, To increase ROM, To improve nutrient delivery to tissue, To increase oxygenation perfusion and To improve muscle performance and motor function Ultrasound (thermal/non thermal): Yes For the Purpose of:: To decrease pain and To decrease swelling/inflammation Re-Evaluation Ending Re-evaluation ending: Please do not hesitate to contact me at [phone] by phone or if you have questions or concerns regarding this new plan of care! Sincerely, SILVER WhitneyT
== END 2024-12-27 19:00 | disposition home or self-care (01) ==
LOC: PT 14:00
PROVIDERS: PCP Internal Medicine; Referring Provider Orthopaedic Surgery Sports Medicine; Visit Provider Orthopaedic Surgery Sports Medicine
DX: R53.81 Other malaise (principal); M19.90 Unspecified osteoarthritis, unspecified site
CPT/HCPCS: 97035; 97110; 97116; 97530

== ENCOUNTER → 2025-01-04 | Outpatient (CLI) | payer MEDICARE, MEDICAID, SELFPAY ==
--- NOTE | 2025-01-04 09:49 | BD_ITS ---
PROCEDURE: DEXA BONE DENSITY STUDY REASON FOR EXAM: OSTEOPOROSIS TECHNIQUE: DEXA scan of the lumbar spine and left hip, using a make and model. REFERENCE LINKS: ISCD Adult Positions COMPARISON: 12/25/2022 FINDINGS: LUMBAR SPINE: Bone mineral denisty, L1-L4: 1.002 g/cm???, , potentially elevated by hypertrophic bony degenerative changes. T-score: -0.4 LEFT FEMORAL NECK: Bone mineral denisty: 0.505 g/cm??? T-score:-3.1 LEFT TOTAL HIP: Bone mineral denisty: 0.742 g/cm??? T-score:-1.6 RIGHT FEMORAL NECK: Bone mineral denisty: 0.488 g/cm??? T-score:-3.2 RIGHT TOTAL HIP: Bone mineral denisty: 0.574 g/cm??? T-score:-3.0 FRAX*: 10 Year Probability of Fracture: Major Osteoporotic Fracture(1): 31% Hip Fracture(2): 15% *FRAX is a trademark of the [employer]'s [place] [employer] Metabolic Bone Disease, World Health Organization (WHO) Collaborating [place]. 1-Major Osteoporotic Fracture: Clinical Spine, Forearm, Hip or Shoulder. 2-The 10-year probability of fracture may be lower than reported if the patient has received treatment. BD/Dexa Bone Density Study IMPRESSION: 1. Osteoporosis. 2. Since 12/25/2022, there has been a decrease of 10.2% in the bone mineral den sity of the total RIGHT hip. 3. Additional description as above. Reading Location: [id number]
== END | disposition home or self-care (01) ==
LOC: OPBD 09:22
PROVIDERS: PCP Internal Medicine; Referring Provider Internal Medicine; Visit Provider Internal Medicine
DX: M81.0 Age-related osteoporosis without current pathological fracture (principal)
CPT/HCPCS: 77080

== ENCOUNTER → 2025-02-02 | Outpatient (CLI) | payer MEDICARE, MEDICAID, SELFPAY ==
[2025-02-02 17:02] LABS: Absolute Lymphocyte Count 2.62 X10^3/uL (0.83-4.51); Absolute Neutrophil Count 8.6 X10^3/uL (2.0-7.7); Basophil# 0.05 X10^3/uL; Basophil% 0.4 % (0-1); Eosinophil# 0.23 X10^3/uL; Eosinophils% 1.9 % (0-5); Hematocrit 41.3 % (37-47); Hemoglobin 13.7 g/dL (12.0-15.0); Lymphocyte # 2.62 X10^3/ul (0.83-4.51); Lymphocyte % 21.1 % (19-41); Mean Corp Hgb Conc 33.2 g/dL (32-36); Mean Corpuscular Hgb 31.6 pg (27.0-32.0); Mean Corpuscular Volume 95.2 fL (81-99); Mean Platelet Vol. 9.3 fl (6.2-12.0); Monocyte# 0.84 X10^3/uL; Monocyte% 6.8 % (0-10); NRBC Flagged by Analyzer 0 % (0-5); Neutrophil # 8.57 X10^3/uL (2.7-7.7); Neutrophil % 69.1 % (47-70); Platelet Count 621 K/mm3 (150-450); RBC Distribution Width CV 14.4 % (11.6-14.6); RBC Distribution Width SD 50.1 fl (35.1-43.9); Red Blood Count 4.34 M/mm3 (4.2-5.4); White Blood Count 12.4 K/mm3 (4.4-11.0)
[2025-02-02 18:57] LABS: Anion Gap 12 (5-15); BUN 14 mg/dL (4-19); BUN/Creat Ratio 16.4 RATIO (10-20); Calcium,Total 10.1 mg/dL (7.6-11.0); Carbon Dioxide 25.9 mmol/L (21.0-32.0); Chloride 98 mmol/L (98-108); Creatinine, Serum 0.86 mg/dL (0.70-1.20); EST Glomerular Filtration Rate 72 (>60); Glucose 103 mg/dL (70-99); Potassium 5.2 mmol/L (3.3-5.1); Sodium Level 136 mmol/L (133-145)
== END | disposition home or self-care (01) ==
PROVIDERS: PCP Internal Medicine; Visit Provider Internal Medicine
DX: I10 Essential (primary) hypertension (principal); D47.3 Essential (hemorrhagic) thrombocythemia
CPT/HCPCS: 36415; 80048; 85025

== ENCOUNTER → 2025-05-05 | Outpatient (CLI) | payer MEDICARE, MEDICAID, SELFPAY ==
--- OUTSIDE RECORDS SUMMARY | 2025-05-05 07:15 | XMS RPT_ITS | CCD ---
Author Organization [facility] Care Team Providers Care Car Cleaning Supervisor Name Role Phone Shira Hylton Unavailable Unavailable Warner, Shira Unavailable Unavailable Warner, Shira Unavailable Unavailable Warner, Shira Unavailable Unavailable Warner, Shira Unavailable Unavailable Shira Hylton Unavailable Unavailable Shira Hylton Unavailable Unavailable ZIA SHABAZZ MD Primary Care Unavailable ZIA SHABAZZ MD Attending Unavailable ZIA SHABAZZ MD Admitting Unavailable Magalie Rangel Unavailable Unavailable Leopoldo Baird Unavailable Unavailable Update Needed Unavailable Unavailable LEOPOLDO BAIRD Primary Care Unavailable CONCHA HERNANDEZ Attending Unavailable MIGUEL REEEC Consulting Unavailable EMY WYATT Admitting Unavailable CARLOS CLINTON Consulting Unavailable Dr. Leopoldo Baird Primary Care Provider [phone] Dr. Leopoldo Baird Referring Provider [phone] ABBI Ontiveros Attending Provider [phone] Dr. Leopoldo Baird Attending Provider [phone] Dr. Regan Faria Attending Provider [phone] ABBI Ontiveros Referring Provider [phone] Dr. Urban Saldana Attending Provider [phone] Dr. Urban Saldana Referring Provider [phone] Dr. Leopoldo Baird Primary Care Provider [phone] Dr. Leopoldo Baird Referring Provider [phone] ABBI Ontiveros Attending Provider [phone] Dr. Leopoldo Baird Primary Care Provider [phone] Oli, Dr. Mata Referring Provider [phone] Oli, Dr. Mata Attending Provider [phone] Leopoldo Baird MD Primary Care Provider [phone] Oli, Dr. Mata Primary Care Provider [phone] 0) Oli, Dr. Mata Attending Provider [phone] Oli, Dr. Mata Referring Provider [phone] Dr. Urban Saldana Attending Provider [phone] Dr. Regan Faria Attending Provider Dr. Urban Russell Attending Provider Dr. Boni Khan Emergency Provider Dr. Mehreen Denney Admit Provider Dr. Mehreen Denney Attending Provider Dr. Mehreen Denney Other Provider Dr. Lucia Berkowitz Attending Provider Dr. Lucia Berkowitz Other Provider ABBI Valle Attending Provider [facility] le Dr. Leopoldo Baird Primary Care Provider [phone]) Oli, Dr. Mata Referring Provider [phone] Dr. Urban Saldana Attending Provider [phone] Dr. Regan Faria Attending Provider Dr. Urban Russell Attending Provider Dr. Boni Khan Emergency Provider Dr. Mehreen Denney Admit Provider Dr. Mehreen Denney Attending Provider Dr. Mehreen Denney Other Provider Dr. Lucia Berkowitz Attending Provider Dr. Lucia Berkowitz Other Provider ABBI Valle Attending Provider Unavailab Dr. Leopoldo Judge Attending Provider [phone] Dr. Leopoldo Baird Primary Care Provider [phone] Dr. Leopoldo Baird Referring Provider [phone] Dr. Urban Russell Attending Provider Dr. Leopoldo Baird Attending Provider [phone] ABBI Valle Attending Provider Unavailab jacinda Diaz ONCOLOGY RN, ONCOLOGY RN-C Shelley Montemayor Attending Provider Unavailable Primary Care Provider Unavailabl e Oleghe, Efewongbe B Primary Care Provider Adelina Lin DO Unavailable Dejah Gold APRN, CNP Unavailable [phone] Manjit Ga DO Unavailable Unavailable Susie Ledezma MD Unavailable Oleghe, Efewongbe B Primary Care Provider Oleghe, Efewongbe B Primary Care Provider OLEGHE, EFEWONGBE Primary Care Unavailable SUSIE LEDEZMA Admitting Unavailable SUSIE LEDEZMA Attending Unavailable JENNIFER, KAREEM Attending Unavailable OLEGHE, EFEWONGBE Primary Care Unavailable OLEGHE, EFEWONGBE Primary Care Unavailable ELADIA HARTMANNEK Attending Unavailable OLEGHE, EFEWONGBE Primary Care Unavailable KAREEM HARTMANN Attending Unavailable BELLO SINGH Attending Unavailable OLEGHE, EFEWONGBE Primary Care Unavailable DEJAH DREW Referring Unavailable ASHLEY MESA Attending Unavailable OLEGHE, EFEWONGBE Primary Care Unavailable BRETT BERNAL Referring Unavailable OLEGHE, EFEWONGBE Primary Care Unavailable BRETT BERNAL Attending Unavailable ELADIA HARTMANNEK Attending Unavailable OLEGHE, EFEWONGBE Primary Care Unavailable OLEGHE, EFEWONGBE Primary Care Unavailable SUSIE LEDEZMA Attending Unavailable KENZIE PAUL Attending Unavailable OLEGHE, EFEWONGBE Primary Care Unavailable Labor DO, Adelina T Unavailable OLEGHE, EFEWONGBE B Primary Care Unavailable NORY CARDENAS Referring Unavailable Oleghe MD Efewongbe B Primary Care Provider OLEGHE, EFEWONGBE B Primary Care Unavailable GERMAN BIGGS Attending Unava ilable OLEGHE, EFEWONGBE B Primary Care Unavailable SUSIE TSANG Attending Unavailable OLEGHE, EFEWONGBE B Primary Care Unavailable MEGAN GARCIA Attending Unavailable Oleghe, Efewongbe Primary Care Unavailable Oleghe, Efewongbe Attending Unavailable Robert Garcia Referring Unavailable Oleghe, Efewongbe Primary Care Unavailable Gopal Clayton Consulting Unavailable Robert Garcia Attending Unavailable Oleghe, Efewongbe Primary Care Unavailable Navjot Tejeda Attending Unavailable Oleghe, Efewongbe Referring Unavailable Oleghe, Efewongbe Primary Care Unavailable Oleghe, Efewongbe Attending Unavailable Oleghe, Efewongbe Primary Care Unavailable Toshia Calle Attending Unavailable Labor, Adelina Attending Unavailable Labor, Adelina Referring Unavailable Oleghe, Efewongbe Primary Care Unavailable Oleghe, Efewongbe Referring Unavailable Oleghe, Efewongbe Primary Care Unavailable Oleghe, Efewongbe Attending Unavailable Oleghe, Efewongbe Referring Unavailable Oleghe, Efewongbe Primary Care Unavailable Oleghe, Efewongbe Attending Unavailable Oleghe, Efewongbe Referring Unavailable Oleghe, Efewongbe Primary Care Unavailable Oleghe, Efewongbe Attending Unavailable Manjit Ga Attending Unavailable Oleghe, Efewongbe Primary Care Unavailable Fuentes Silverio Attending Unavailable Oleghe, Efewongbe Referring Unavailable Oleghe, Efewongbe Primary Care Unavailable Oleghe, Efewongbe Primary Care Unavailable Manjit Ga Attending Unavailable Oleghe, Efewongbe Referring Unavailable Oleghe, Efewongbe Attending Unavailable Oleghe, Efewongbe Primary Care Unavailable Robert Garcia Referring Unavailable Oleghe, Efewongbe Primary Care Unavailable Robert Garcia Attending Unavailable Oleghe, Efewongbe Referring Unavailable Oleghe, Efewongbe Primary Care Unavailable Oleghe, Efewongbe Attending Unavailable Robert Garcia Referring Unavailable Oleghe, Efewongbe Primary Care Unavailable Robert Garcia Attending Unavailable Provider, Ed Physician Attending Unavailab le Oleghe, Efewongbe Primary Care Unavailable Oleghe, Efewongbe Referring Unavailable Oleghe, Efewongbe Primary Care Unavailable Urban Russell Attending Unavailable Oleghe, Efewongbe Referring Unavailable Oleghe, Efewongbe Primary Care Unavailable Urban Russell Attending Unavailable Fuentes Silverio Attending Unavailable Oleghe, Efewongbe Referring Unavailable Oleghe, Efewongbe Primary Care Unavailable Oleghe, Efewongbe Referring Unavailable Oleghe, Efewongbe Primary Care Unavailable Urban Saldana Attending Unavailable Rolf Mackenzie Attending Unavailable Oleghe, Efewongbe Primary Care Unavailable Laura Esteves Attending Unavailable Oleghe, Efewongbe Referring Unavailable Oleghe, Efewongbe Primary Care Unavailable Oleghe, Efewongbe Attending Unavailable Oleghe, Efewongbe Referring Unavailable Oleghe, Efewongbe Primary Care Unavailable Oleghe, Efewongbe Referring Unavailable Oleghe, Efewongbe Primary Care Unavailable Oleghe, Efewongbe Attending Unavailable Oleghe, Efewongbe Primary Care Unavailable Manjit Ga Attending Unavailable Manjit Ga Attending Unavailable Oleghe, Efewongbe Primary Care Unavailable Oleghe, Efewongbe Referring Unavailable Oleghe, Efewongbe Attending Unavailable Oleghe, Efewongbe Primary Care Unavailable Oleghe, Efewongbe Primary Care Unavailable Manjit Ga Attending Unavailable Fuentes Silverio Attending Unavailable Oleghe, Efewongbe Referring Unavailable Oleghe, Efewongbe Primary Care Unavailable Robert Garcia Attending Unavailable Oleghe, Efewongbe Referring Unavailable Oleghe, Efewongbe Primary Care Unavailable Robert Garcia Attending Unavailable Oleghe, Efewongbe Referring Unavailable Oleghe, Efewongbe Primary Care Unavailable Oleghe, Efewongbe Referring Unavailable Oleghe, Efewongbe Primary Care Unavailable Robert Garcia Attending Unavailable Oleghe, Efewongbe Referring Unavailable Oleghe, Efewongbe Primary Care Unavailable Oleghe, Efewongbe Attending Unavailable Manjit Ga Attending Unavailable Oleghe, Efewongbe Primary Care Unavailable Laura Esteves Attending Unavailable Oleghe, Efewongbe Referring Unavailable Oleghe, Efewongbe Primary Care Unavailable Oleghe, Efewongbe Referring Unavailable Oleghe, Efewongbe Primary Care Unavailable Oleghe, Efewongbe Attending Unavailable Brandy Richards Attending Unavailable Oleghe, Efewongbe Referring Unavailable Oleghe, Efewongbe Primary Care Unavailable Oleghe, Efewongbe Referring Unavailable Oleghe, Efewongbe Attending Unavailable Oleghe, Efewongbe Primary Care Unavailable Allergies Allergy Classification Reported Allergen(s) Allergy Type Date of Onset Reaction(s) Facility (16 sources) iloperidone Drug Allergy 1 Other [facility] Work Phone: (1 source) paliperidone Drug Allergy [facility] Work Phone: (1 source) Theophylline Drug Allergy [facility] Work Phone: (15 sources) traZODone; Translations: [trazodone] Drug Allergy 2 Other [facility] Repository (13 sources) lurasidone Drug Allergy 2 [facility] Work Phone: (20 sources) paliperidone; Translations: [PALIPERIDONE] Drug Allergy 9 Other: See Comments [facility] Work Phone: (20 sources) Theophylline Drug Allergy 7 Other [facility] Work Phone: (12 sources) Theophylline Drug Allergy 2 [facility] Work Phone: (20 sources) Naproxen; Translations: [NAPROXEN] Drug Allergy 1 Hives [facility] (7 sources) Gadoxetate; Translations: [GADOXETATE] Drug Allergy 7 Shortness of Breath, SOB [facility] (3 sources) Slow-bid [Other] Propensity to adverse reactions 2 Mental Status Change [facility] Work Phone: (20 sources) iloperidone Drug Allergy [address] [facility] (20 sources) lurasidone Drug Allergy [address] [facility] (20 sources) Gadoxetate Propensity to adverse reactions 7 Shortness of breath [facility] (20 sources) Trazodone And Nefazodone Drug Intolerance [address] [facility] (2 sources) OTHER; Translations: [OTHER] Propensity to adverse reactions (disorder) 2 [facility] Repository (2 sources) PHENAPINE; Translations: [PHENAPINE] Propensity to adverse reactions to drug (disorder) 5 Mental Status Change [facility] Repository (1 source) iloperidone Drug Allergy 5 [facility] (1 source) lurasidone Drug Allergy 5 [facility] (1 source) paliperidone Drug Allergy 5 [facility] (1 source) Theophylline Drug Allergy 5 [facility] Medications Current Medications Medication Drug Class(es) Dates Sig (Normalized) Sig (Original) 8 hr acetaminophen 650 mg extended release oral tablet (13 sources) Start: 01-23-2021 take 1 tablet by mouth every twelve hours Acetaminophen (Tylenol Arthritis Pain) 650 mg tablet extended release Active 650 MG PO Q12H January 22, 2021 11:00pm albuterol 0.833 mg/ml / ipratropium bromide 0.167 mg/ml inhalation solution (3 sources) Anticholinergic, beta2-Adrenergic Agonist Start: 10-22-2015 take 3 mL by inhalation every four hours as needed ipratropium-albuter ol (DUONEB) 0.5 mg-3 mg(2.5 mg base)/3 mL nebu Inhale 3 mL as instructed every 4 hours as needed (wheezing). Use over 5-15minutes per nebulizer. 0 10/22/2015 Active Comment on above: Inhale 3 mL as instr ucted every 4 hours as needed (wheezing). Use over 5-15minutes per nebulizer. ascorbic acid 500 mg extended release oral capsule (20 sources) Vitamin C Start: 07-08-2022 ascorbic acid (Vitamin C) 500 MG ER capsule Take 500 mg by mouth. 0 07/08/2022 Active Start: 07-08-2022 take 500 mg by mouth once reymundo y Ascorbic Acid (Vitamin C) Active 500 MG PO DAILY July 07, 2022 11:00pm aspirin 81 mg delayed release oral tablet (3 sources) Platelet Aggregation Inhibitor, Nonsteroidal Anti-inflammatory Drug Start: 12-19-2016 take 1 tablet by mouth once daily aspirin, enteric coated (ASPIRIN, ENTERIC COATED) 81 mg EC tablet Take 1 tablet by mouth once daily. 100 tablet 3 12/19/2016 Active Comment on above: Take 1 tablet by brook th once daily. Blood Pressure Cuff - Home Use (3 sources) Start: 09-07-2015 Blood Pressure Cuff - Home Use Indications: Essential hypertension, benign BLOOD PRESSURE CUFF FOR HOME USE. DX: LABILE BLOOD PRESSURE 1 Each 0 09/07/2015 Active Comment on above: BLOOD PRESSURE CUFF FOR HOME USE. DX: LABILE BLOOD PRESSURE Budesonide / formoterol (3 sources) Corticosteroid, beta2-Adrenergic Agonist Start: 11-19-2015 take 2 puff(s) by inhalation twice daily budesonide-formot marilia (SYMBICORT) 160-4.5 mcg/actuation inhaler Inhale 2 Puffs as instructed twice daily. 1 Inhaler 5 11/19/2015 Active Comment on above: Inhale 2 Puffs as in structed twice daily. 0.5 ml buprenorphine 200 mg/ml prefilled syringe (20 sources) Partial Opioid Agonist Start: 08-07-2021 Buprenorphine Active 100 MG SC EVERY MONTH August 06, 2021 11:00pm Start: 11-04-2019 Sublocade 100 MG/0.5ML Subcutaneous Solution Prefilled Syringe Quantity: 1 Refills: 0 Start : 04-Nov-2019 Active Start: 05-13-2019 buprenorphine ER (SUBLOCADE) 100 mg/0.5 mL injection Buprenorphine (Sublocade) 100 mg/0.5 mL solution, extended rel syringe Active 100 MG SC EVERY MONTH August 07, 2021 12:09pm 05/13/2019 Active buprenorphine ER (Sublocade) 100 mg/0.5mL injection Inject 1 each under the skin every month to absorb continually. 0 Active Comment on above: Buprenorphine (Sublo nima) 100 mg/0.5 mL solution, extended rel syringe Active 100 MG SC EVERY MONTH August 07, 2021 12:09pm camphor 5 mg/ml / menthol 5 mg/ml topical lotion (3 sources) Start: 02-10-2017 camphor-menthol (SARNA) lotion Apply 1 application to affected area as needed. 210 mL 1 02/10/2017 Active Comment on above: Apply 1 application to affected area as needed. Cane (11 sources) Start: 03-04-2021 Cane Active 0 .ROUTE .MEDSUPPLY 1 March 04, 2021 2:00pm As directed, Quad cane Start: 03-04-2021 End: 06-11-2022 Cane Discontinued 0 .ROUTE . MEDSUPPLY 1 March 03, 2021 11:00pm June 11, 2022 7:11am As directed, Quad cane Start: 03-04-2021 End: 06-11-2022 Cane Discontinued 0 .ROUTE . MEDSUPPLY 1 March 04, 2021 12:00am June 11, 2022 8:11am As directed, Quad cane Start: 03-04-2021 Cane Active 0 .ROUTE .MEDSUPPLY 1 March 04, 2021 12:00am As directed, Quad cane Cane Tips (Quad Cane Tips) m isc (11 sources) Start: 03-04-2021 Cane Tips (Ibrahima d Cane Tips) misc Active 0 .ROUTE .MEDSUPPLY 2 March 04, 2021 1:58pm As directed Start: 03-04-2021 End: 06-11-2022 Cane Tips (Quad Cane Tips) m isc Discontinued 0 .ROUTE .MEDSUPPLY 2 March 03, 2021 11:00pm June 11, 2022 7:11am As directed Start: 03-04-2021 End: 06-11-2022 Cane Tips (Quad Cane Tips) m isc Discontinued 0 .ROUTE .MEDSUPPLY 2 March 04, 2021 12:00am June 11, 2022 8:11am As directed Start: 03-04-2021 Cane Tips (Ibrahima d Cane Tips) misc Active 0 .ROUTE .MEDSUPPLY 2 March 04, 2021 12:00am As directed cariprazine 3 mg oral capsule (20 sources) Atypical Antipsychotic Start: 06-02-2022 End: 08-05-2022 take 1 capsule by mouth once daily Cariprazine (Vraylar) 1.5 mg capsule Active 3 MG PO DAILY August 05, 2022 7:23am Start: 12-13-2020 End: 12-04-2021 take 1 capsule by mouth once daily VRAYLAR 3 mg capsule Take 1 capsule by mouth once daily. 08/12/2021 Active Comment on above: Take 1 capsule by mo [facility] once daily. Take 1 Capsule by mo [facility] daily cephalexin 500 mg oral capsu le (14 sources) Cephalosporin Antibacterial Start: 07-17-2022 Start: 05-21-2021 End: 05-31-2021 take 500 mg by mouth every twelve hours Cephalexin Discontinued 500 MG PO Q12H 20 10 May 20, 2021 11:00pm May 30, 2021 11:01pm cholecalciferol 0.1 mg oral capsule (20 sources) Vitamin D Start: 07-10-2023 take 1 capsule by mouth once daily cholecalciferol (Vitamin D-3) 100 MCG (4000 UT) capsule Indications: Vitamin D deficiency Take 1 capsule (100 mcg) by mouth daily. 30 capsule 3 07/10/2023 Active Start: 01-17-2019 End: 03-16-2019 take 5000 [IU] by mouth once daily Cholecalciferol (Vitamin D3) Discontinued 5000 UNIT PO DAILY January 17, 2019 11:30am March 16, 2019 2:04pm Start: 07-21-2016 take 1 capsule by [facility] every week cholecalciferol, Vitamin D3, (VITAMIN D3) 50,000 unit cap capsule Indications: Vitamin D deficiency Take 1 capsule by mouth once each week. 12 capsule 0 07/21/2016 Active Comment on above: Take 1 capsule by mo [facility] once each week. cloNIDine hydrochloride 0.1 mg oral tablet (20 sources) Central alpha-2 Adrenergic Agonist Start: 02-13-2017 End: 05-11-2018 cloNIDine HCl (CATAPRES) 0.1 mg tablet TAKE 1 TABLET THREE TIMES A DAY 84 tablet 5 02/13/2017 Active Start: 10-16-2015 End: 08-01-2016 take 0.1 mg by mouth three times daily Clonidine Hcl Discontinued 0.1 MG PO THREE TIMES A DAY October 16, 2015 12:00am August 01, 2016 12:19pm Comment on above: TAKE 1 TABLET THREE TIMES A DAY Compression Socks, Large (6 sources) Start: 05-15-2022 Compression Socks, Large Active 0 .Route 4 May 14, 2022 11:00pm Wear daily for low leg swelling 20-30mmHg Start: 05-15-2022 Compression So cks, Large Active 0 .Route 4 May 15, 2022 12:00am Wear daily for low leg swelling 20-30mmHg 0.5 ml dulaglutide 3 mg/ml auto-injector (15 sources) GLP-1 Receptor Agonist Start: 09-03-2023 inject 1.5 mg by subcutaneous injection every week dulaglutide (Trulicity) 1.5 MG/0.5ML solution pen-injector Inject 1.5 mg under the skin 1 (one) time per week. 4 Pen 1 09/03/2023 Active Start: 07-10-2023 End: 09-09-2023 inject 0.75 mg by subcutaneous injection every week dulaglutide (Trulicity) 0.75 MG/0.5ML solution pen-injector Inject 0.75 mg under the skin 1 (one) time per week. 4 each 0 08/10/2023 09/03/2023 Discontinued (Therapy completed) ferrous sulfate 325 mg oral tablet (20 sources) Start: 04-24-2023 take 1 tablet by mouth every other day FeroSul 325 (65 Fe) MG tablet Take 325 mg by mouth every other day. 0 04/24/2023 Active Start: 06-18-2021 End: 09-08-2022 take 324 mg by mouth once daily Ferrous Sulfate Active 324 MG PO DAILY September 08, 2022 2:39pm Start: 12-04-2020 End: 08-07-2021 take 325 mg by mouth once daily Ferrous Sulfate Discontinued 325 MG PO DAILY@0800 December 04, 2020 12:00am August 07, 2021 12:11pm Start: 07-14-2018 End: 10-02-2020 take 325 mg by mouth once daily Ferrous Sulfate Discontinued 325 MG PO DAILY May 03, 2020 2:25pm October 02, 2020 12:54pm 24 hr fesoterodine fumarate 4 mg extended release oral tablet (20 sources) Start: 04-28-2023 take 1 tablet by mouth once daily, then take 1 tablet by mouth every twenty-four hours fesoterodine ER (Toviaz) 4 MG 24 hr tablet Take 4 mg by mouth daily. 0 04/28/2023 Active Food Supplement, Lactose-Free (ENSURE) liqd (3 sources) Start: 02-18-2017 Food Supplement, Lactose-Free (ENSURE) liqd Drink a 8 oz bottle, up to six times each day. 180 Bottle 6 02/18/2017 Active Comment on above: Drink a 8 oz bottle, up to six times each day. furosemide 20 mg oral tablet (20 sources) Loop Diuretic Start: 11-17-2022 take 1 tablet by mouth once daily furosemide (Lasix) 20 MG tablet Take 20 mg by mouth daily. 0 11/17/2022 Active Handicap Placard (11 sources) Start: 02-07-2021 Handicap Placard Active 0 .ROUTE .MEDSUPPLY February 07, 2021 1:37pm As directed, length of time 5 years Start: 02-07-[address] Active 0 .ROUTE .MEDSUPPLY February 06, 2021 11:00pm As directed, length of time 5 years Start: 02-07-[address] Active 0 .ROUTE .MEDSUPPLY February 07, 2021 12:00am As directed, length of time 5 years hydrALAZINE hydrochloride 10 mg oral tablet (20 sources) Arteriolar Vasodilator Start: 04-22-2023 take 1 tablet by mouth in the morning hydrALAZINE (Apresoline) 10 MG tablet Take 10 mg by mouth in the morning. 0 04/22/2023 Active Start: 09-30-2022 End: 10-09-2022 take 10 mg by mouth three times daily Hydralazine Active 10 MG PO THREE TIMES A DAY October 09, 2022 12:54pm Start: 09-01-2016 End: 06-08-2018 take 1 tablet by mouth three times daily hydrALAZINE (APRESOLINE) 50 mg tablet Take 1 tablet by mouth three times daily. 270 tablet 4 09/01/2016 Active Start: 11-24-2014 End: 06-08-2016 take 50 mg by mouth three times daily Hydralazine Discontinued 50 MG PO THREE TIMES A DAY 90 November 24, 2014 12:00am June 08, 2016 7:23pm Comment on above: Take 1 tablet by brook th three times daily. Incentive Spirometer (1 source) Start: 08-05-2022 Incentive Spirometer Active 0 .Route .MEDSUPPLY August 04, 2022 11:00pm As directed Inhalational Spacing Device (Pocket Chamber) spacer (11 sources) Start: 06-26-2021 Inhalational Spacing Device (Pocket Chamber) spacer Active 0 .ROUTE .MEDSUPPLY June 26, 2021 8:39am As directed Start: 06-26-2021 Inhalational S pacing Device (Pocket Chamber) spacer Active 0 .ROUTE .MEDSUPPLY June 25, 2021 11:00pm As directed Start: 06-26-2021 Inhalational S pacing Device (Pocket Chamber) spacer Active 0 .ROUTE .MEDSUPPLY June 26, 2021 12:00am As directed lamoTRIgine 200 mg oral tablet (20 sources) Mood Stabilizer, Anti-epileptic Agent Start: 08-12-2021 take 1 tablet by mouth once daily lamoTRIgine (LAMICTAL) 200 mg tablet Take 1 tablet by mouth once daily. 08/12/2021 Active Start: 12-04-2020 End: 02-22-2021 take 200 mg by mouth at bedtime Lamotrigine Discontinu ed 200 MG PO AT BEDTIME 90 December 27, 2020 1:40pm February 22, 2021 12:01pm Start: 01-04-2020 End: 04-03-2020 take 2 tablets by mouth once daily at bedtime Lamotrigine Discontinued 25 MG PO DAILY January 03, 2020 11:00pm April 03, 2020 12:30pm 2 tabs at bedtime take with 100mg tablet Start: 10-04-2019 End: 01-04-2020 take 100 mg by mouth once daily Lamotrigine Discontinu ed 100 MG PO DAILY October 04, 2019 12:00am January 04, 2020 2:01pm Start: 10-04-2019 End: 04-03-2020 Lamotrigine Discontinued 100 MG PO DAILY January 04, 2020 1:56pm April 03, 2020 12:30pm take with 25 mg tablets to equal 150mg at bedtime take 1 tablet by brook th once daily lamoTRIgine 200 MG Oral Tablet TAKE 1 TABLET DAILY. Refills: 0 Active Comment on above: Take 1 tablet by brook th once daily. Take 1 Tablet by brook th nightly at bedtime lisinopril 40 mg oral tablet (20 sources) Angiotensin Converting Enzyme Inhibitor Start: 2 End: 2 take 40 mg by mouth once daily in the morning Lisinopril Active 40 MG PO EVERY MORNING August 13, 2022 7:14am Start: 05-12-2022 End: 07-14-2022 Lisinopril Discontinued 40 M G PO DAILY June 24, 2022 1:37pm July 08, 2022 7:26am Take if blood pressure is over 150 systolic and/or 90 diastolic Start: 12-04-2020 End: 05-06-2022 take 40 mg by mouth once daily Lisinopril Discontinued 40 MG PO DAILY March 19, 2022 10:33am May 06, 2022 6:18am Start: 09-15-2018 End: 10-02-2020 take 1 tablet by mouth once daily Lisinopril Discontinued 0 .ROUTE .COMPLEX August 23, 2020 10:22am October 02, 2020 12:54pm TAKE 1 TABLET BY MOUTH DAILY Start: 03-24-2017 End: 09-15-2018 lisinopril (ZESTRIL, PRINIVI L) 20 mg tablet TAKE 1 TABLET DAILY 29 tablet 11 02/10/2018 Active Comment on above: TAKE 1 TABLET DAILY Take 40 mg by mouth lurasidone hydrochloride 80 mg oral tablet (3 sources) Atypical Antipsychotic Start: 5 take 1 tablet by mouth once daily lurasidone (LATUDA) 80 mg tablet Take 80 mg by mouth once daily. 0 06/06/2015 Active Comment on above: Take 1 tablet by brook th once daily. METAMUCIL FIBER PO (20 sources) METAMUCIL FIBER PO Take by mouth. 0 Active 24 hr metoprolol succinate 25 mg extended release oral tablet (20 sources) beta-Adrenergic Shruti Start: 3 take 1 tablet by mouth once daily metoprolol succinate XL (Toprol-XL) 25 MG 24 hr tablet Take 25 mg by mouth daily. 0 04/20/2023 Active Start: 07-09-2021 End: 09-08-2022 take 25 mg by mouth once daily Metoprolol Succinate Di scontinued 25 MG PO DAILY April 30, 2022 10:36am May 20, 2022 2:11pm Start: 07-09-2021 End: 04-30-2022 take 75 mg by mouth once daily Metoprolol Succinate Di scontinued 25 MG PO DAILY December 02, 2021 2:44pm April 30, 2022 10:36am to be taken in conjunction, 75 mg daily Start: 12-18-2020 End: 12-02-2021 take 1 tablet by mouth once daily metoprolol succinate ER (TOPROL XL) 50 mg 24 hr tablet Take 1 tablet by mouth once daily. 08/12/2021 Active Start: 12-04-2020 End: 12-18-2020 take 50 mg by mouth at bedtime Metoprolol Tartrate Dis continued 50 MG PO AT BEDTIME December 18, 2020 11:24am December 18, 2020 2:14pm Start: 01-19-2019 End: 10-02-2020 take 1 tablet by mouth twice daily Metoprolol Tartrate Discontinued 0 .ROUTE .COMPLEX 56 May 31, 2020 3:04pm October 02, 2020 12:54pm TAKE 1 TABLET BY MOUTH TWICE A DAY Start: 03-11-2018 End: 01-19-2019 take 25 mg by mouth twice daily Metoprolol Tartrate Di scontinued 25 MG PO TWICE A DAY 60 January 19, 2019 7:56am January 19, 2019 3:10pm Start: 03-24-2017 End: 03-11-2018 take 25 mg by mouth once daily Metoprolol Tartrate Dis continued 25 MG PO DAILY March 23, 2017 11:00pm March 11, 2018 9:39am Start: 07-21-2016 End: 09-28-2018 take 1 tablet by mouth once daily metoprolol tartrate, short acting, (LOPRESSOR) 25 mg tablet Indications: Essential hypertension, benign Take 1 tablet by mouth once daily. 30 tablet 11 07/21/2016 Active take 1 tablet by brook th every twenty-four hours in the morning metoprolol succinate XL (Toprol-XL) 50 MG 24 hr tablet Take 50 mg by mouth in the morning. 0 Active take 1 tablet by brook th once daily Metoprolol Succinate ER 50 MG Oral Tablet Extended Release 24 Hour TAKE 1 TABLET DAILY. Refills: 0 Active Comment on above: Take 1 tablet by brook once daily. Take 50 mg by mouth miconazole nitrate 0.02 mg/mg topical powder (20 sources) Azole Antifungal Start: 03-23-2023 Antifungal 2 % powder Start: 03-05-2021 End: 05-15-2021 Miconazole Nitrate Discontin ued 1 APPLIC TOPICAL TWICE A DAY March 04, 2021 11:00pm May 15, 2021 12:20pm Start: 03-05-2021 End: 05-15-2021 Start: 10-10-2019 End: 10-02-2020 Miconazole Nitrate Discontin ued 1 APPLIC TOPICAL TWICE A DAY January 03, 2020 3:20pm October 02, 2020 12:54pm Start: 07-14-2018 End: 10-10-2019 Miconazole Nitrate (Zeasorb (Miconazole)) 2 % powder Discontinued 1 APPLIC TOPICAL TWICE A DAY July 13, 2018 11:00pm October 10, 2019 12:58pm Start: 07-14-2018 End: 10-02-2020 24 hr mirabegron 50 mg extended release oral tablet (20 sources) beta3-Adrenergic Agonist Start: 04-25-2023 take 1 tablet by mouth once daily Myrbetriq 50 MG 24 hr tablet Take 50 mg by mouth daily. 0 04/25/2023 Active Multivitamin preparation (1 source) Start: 07-08-2022 take 1 tablet by mouth once daily Multivitamin Active 1 TABLET PO DAILY July 07, 2022 11:00pm Nicotine (20 sources) Cholinergic Nicotinic Agonist Start: 10-14-2021 apply 1 dose transdermal route once daily, then apply 1 dose transdermal route once daily Nicotine Active 0 TD .COMPLEX 56 October 14, 2021 1:36pm apply 1-21 mg NICOTINE PATCH daily for 28 days; follow with 1-14 mg PATCH daily for 14 days, then 1-7mg PATCH daily for 14 days transdermal Start: 10-14-2021 End: 05-06-2022 apply 1 dose transdermal route once daily, then apply 1 dose transdermal route once daily Nicotine Discontinued 0 TD .COMPLEX October 14, 2021 12:00am May 06, 2022 9:54am apply 1-21 mg NICOTINE PATCH daily for 28 days; follow with 1-14 mg PATCH daily for 14 days, then 1-7mg PATCH daily for 14 days transdermal Start: 10-14-2021 End: 05-06-2022 Start: 10-14-2021 End: 05-06-2022 apply 1 dose transdermal route once daily, then apply 1 dose transdermal route once daily Nicotine Discontinued 0 TD .COMPLEX 56 October 14, 2021 1:00am May 06, 2022 10:54am apply 1-21 mg NICOTINE PATCH daily for 28 days; follow with 1-14 mg PATCH daily for 14 days, then 1-7mg PATCH daily for 14 days transdermal Start: 10-14-2021 apply 1 dose transde rmal route once daily, then apply 1 dose transdermal route once daily Nicotine Active 0 TD .COMPLEX 56 October 14, 2021 1:00am apply 1-21 mg NICOTINE PATCH daily for 28 days; follow with 1-14 mg PATCH daily for 14 days, then 1-7mg PATCH daily for 14 days transdermal Start: 02-28-2021 End: 05-22-2021 apply 1 dose transdermal route once daily, then apply 1 dose transdermal route once daily Nicotine Discontinued 0 TD .COMPLEX 56 February 28, 2021 5:22pm May 22, 2021 3:02pm apply 1-21 mg NICOTINE PATCH daily for 28 days; follow with 1-14 mg PATCH daily for 14 days, then 1-7mg PATCH daily for 14 days transdermal Start: 02-28-2021 End: 05-22-2021 apply 1 dose transdermal route once daily, then apply 1 dose transdermal route once daily Nicotine Discontinued 0 TD .COMPLEX 56 February 27, 2021 11:00pm May 22, 2021 2:02pm apply 1-21 mg NICOTINE PATCH daily for 28 days; follow with 1-14 mg PATCH daily for 14 days, then 1-7mg PATCH daily for 14 days transdermal Start: 02-28-2021 End: 05-22-2021 Start: 02-28-2021 End: 05-22-2021 apply 1 dose transdermal route once daily, then apply 1 dose transdermal route once daily Nicotine Discontinued 0 TD .COMPLEX 56 February 28, 2021 12:00am May 22, 2021 3:02pm apply 1-21 mg NICOTINE PATCH daily for 28 days; follow with 1-14 mg PATCH daily for 14 days, then 1-7mg PATCH daily for 14 days transdermal nicotine (Nicoti ne Step 2) 14 MG/24HR patch Place 1 patch on the skin Every 24 hours. 0 Active omeprazole 40 mg delayed release oral capsule (20 sources) Proton Pump Inhibitor Start: 03-05-2021 End: 09-08-2022 take 1 capsule by mouth once daily omeprazole (PRILOSEC) 40 mg capsule Take 1 capsule by mouth once daily. 08/12/2021 Active Start: 12-04-2020 End: 03-05-2021 take 20 mg by mouth once daily Omeprazole Discontinued 20 MG PO DAILY December 04, 2020 12:00am March 05, 2021 2:35pm Start: 01-17-2019 End: 12-03-2020 take 1 capsule by mouth once daily Omeprazole Discontinued 0 .ROUTE .COMPLEX 90 February 13, 2020 3:54pm October 02, 2020 12:54pm TAKE 1 CAPSULE BY MOUTH DAILY ON AN EMPTY STOMACH Comment on above: Take 1 capsule by mo [facility] once daily. 24 hr oxybutynin chloride 15 mg extended release oral tablet (3 sources) Cholinergic Muscarinic Antagonist Start: 01-20-20 17 take 1 tablet by mouth once daily oxybutynin ER (DITROPAN XL) 15 mg 24 hr Extended Rel Tab TAKE 1 TABLET BY MOUTH ONCE DAILY. 28 tablet 01/19/2017 Active Comment on above: TAKE 1 TABLET BY BROOK ONCE DAILY. pantoprazole 20 mg delayed release oral tablet (20 sources) Proton Pump Inhibitor Start: 10-21-19 End: 06-16-20 18 take 1 tablet by mouth once daily before breakfast pantoprazole DR (PROTONIX) 20 mg tablet Indications: Nausea Take 1 tablet by mouth daily before breakfast. Take on empty stomach, 1/2 hr before meal. 30 tablet 10/21/2016 Active Comment on above: Take 1 tablet by brook daily before breakfast. Take on empty stomach, 1/2 hr before meal. plecanatide 3 mg oral tablet (1 source) Start: 10-02-20 take 1 tablet by mouth once daily Plecanatide (Trulance) 3 mg tablet Active 3 MG PO DAILY October 02, 2022 12:00am potassium chloride 20 meq extended release oral tablet (2 sources) Start: 05-08-20 take 20 mEq by mouth once daily Potassium Chloride Active 20 MEQ PO DAILY May 08, 2022 12:00am Start: 05-06-2022 Potassium Chlo ride (Klor-Con M20) 20 mEq tablet,ER particles/crystals Active 20 MEQ PO DAILY 5 May 06, 2022 12:00am pramipexole dihydrochloride 1 mg oral tablet (3 sources) Nonergot Dopamine Agonist Start: 12-30-2016 take 1 tablet by mouth three times daily pramipexole (MIRAPEX) 1 mg tablet Indications: Restless leg Take 1 tablet by mouth three times daily. 90 tablet 5 12/30/2016 Active Comment on above: Take 1 tablet by brook three times daily. rOPINIRole 0.25 mg oral tablet (20 sources) Nonergot Dopamine Agonist Start: 07-11-2021 End: 05-08-2022 take 1 tablet by mouth once daily rOPINIRole (REQUIP) 0.25 mg tablet Take 1 tablet by mouth once daily. 07/11/2021 Active Start: 03-04-2016 End: 06-08-2016 take 1 tablet by mouth at bedtime as needed Ropinirole (Requip) 0.25 MG tablet Discontinued 0.25 MG PO AT BEDTIME NEEDED March 04, 2016 9:47pm June 08, 2016 7:23pm Comment on above: Take 1 tablet by brook once daily. rosuvastatin calcium 40 mg oral tablet (20 sources) HMG-CoA Reductase Inhibitor Start: 1 End: 2 take 1 tablet by mouth once daily rosuvastatin (CRESTOR) 40 mg tablet Take 1 tablet by mouth once daily. 08/12/2021 Active Comment on above: Take 1 tablet by brook once daily. Take 1 Tablet by brook daily sennosides, mcfp 8.6 mg oral tablet (1 source) Start: 2 take 1 tablet by mouth once daily Sennosides (Senna Laxative) 8.6 mg tablet Active 8.6 MG PO DAILY September 18, 2022 12:00am simvastatin 40 mg oral tablet (3 sources) HMG-CoA Reductase Inhibitor Start: 7 take 1 tablet by mouth once daily at bedtime simvastatin (ZOCOR) 40 mg tablet Take 1 tablet by mouth daily at bedtime. 30 tablet 5 11/21/2016 Active Comment on above: Take 1 tablet by brook th daily at bedtime. sucralfate 1000 mg oral tablet (20 sources) Aluminum Complex Start: 7 End: take 1 tablet by mouth four times daily sucralfate (CARAFATE) 1 gram tablet TAKE 1 TABLET BY MOUTH FOUR TIMES A DAY 120 tablet 3 06/09/2017 Active Start: 02-10-2017 take 10 mL by mouth at bedtime sucralfate (CARAFATE) 100 mg/mL suspension Take 10 mL by mouth before meals and at bedtime. Try to wait 30 minutes before eating. 1240 mL 6 02/10/2017 Active Comment on above: Take 10 mL by mouth before meals and at bedtime. Try to wait 30 minutes before eating. TAKE 1 TABLET BY BROOK TH FOUR TIMES A DAY 24 hr divalproex sodium 500 mg extended release oral tablet (20 sources) Mood Stabilizer, Anti-epileptic Agent Start: 04-20-2023 take 1 tablet by mouth every twenty-four hours in the morning divalproex (Depakote ER) 500 MG 24 hr tablet Take 50 mg by mouth in the morning and 50 mg in the evening. 0 04/20/2023 Active Start: 12-28-2020 End: 09-08-2022 take 500 mg by mouth twice daily Divalproex Active 500 MG PO TWICE A DAY 60 September 08, 2022 2:38pm Start: 12-13-2020 take 1 tablet by brook th every twenty-four hours divalproex (DEPAKOTE ER) 500 mg 24 hr tablet Take 1,000 mg by mouth 0 12/13/2020 Active Start: 12-04-2020 End: 12-28-2020 take 500 mg by mouth once daily Divalproex Discontinue d 500 MG PO DAILY 90 December 27, 2020 1:40pm December 28, 2020 8:34am Start: 01-17-2019 End: 01-04-2020 take 500 mg by mouth three times daily Divalproex Discontinued 500 MG PO THREE TIMES A DAY January 16, 2019 11:00pm January 04, 2020 2:01pm Start: 06-20-2017 End: 01-17-2019 take 500 mg by mouth twice daily Divalproex Discontinued 500 MG PO TWICE A DAY 120 November 29, 2018 4:18pm January 17, 2019 9:00am Start: 06-20-2017 End: 01-17-2019 Start: 10-22-2015 take 1 tablet by brook twice daily divalproex DR (DEPAKOTE) 500 mg EC tablet Take 500 mg by mouth twice daily. 10/22/2015 Active take 3 tablets by mo [facility] at bedtime Depakote 500 MG Oral Tablet Delayed Release TAKE 3 TABLETS AT BEDTIME. Refills: 0 Active Comment on above: Take 500 mg by mouth twice daily. Take 1,000 mg by brook wheelchair (6 sources) Start: 05-13-2022 wheelchair Active 0 .Route .MEDSUPPLY May 12, 2022 11:00pm As directed Start: 05-13-2022 wheelchair Act sebastien 0 .Route .MEDSUPPLY May 13, 2022 12:00am As directed (20 sources) Start: 07-08-2022 Start: 05-15-2022 Start: 05-13-2022 Start: 06-26-2021 Start: 03-04-2021 End: 06-11-2022 Start: 03-04-2021 End: 06-11-2022 Start: 02-07-2021 Start: 10-04-2020 End: 11-15-2020 Start: 10-03-2020 End: 10-04-2020 Start: 05-13-2019 End: 04-11-2020 Start: 03-18-2019 End: 10-02-2020 Start: 03-18-2019 End: 05-13-2019 Start: 03-18-2019 End: 05-13-2019 Start: 03-16-2019 End: 11-15-2020 Completed/Discontinued Medications Medication Drug Class(es) Dates Sig (Normalized) Sig (Original) acetaminophen 325 mg / oxyCODONE hydrochloride 5 mg oral tablet (20 sources) Opioid Agonist Start: 09-08-2018 End: 09-16-2018 take 1 tablet by mouth four times daily Oxycodone-Acetamino phen (Percocet) 5-325 mg tablet Discontinued 1 TABLET PO 4 TIMES DAILY September 08, 2018 September 16, 2018 12:08am 30 tabs (thirty) Start: 09-08-2018 End: 09-16-2018 Start: 08-31-2018 End: 09-07-2018 take 1 tablet by mouth four times daily as needed Oxycodone-Acetaminophen Discontinued 1 TABLET PO 4 TIMES DAILY NEEDED 30 7 August 31, 2018 4:13pm September 07, 2018 12:09am Patient needs to check with her Pain Management Physician before filling this prescription. Patient MUST NOT TAKE Suboxone while taking Percocet. Start: 08-31-2018 End: 09-07-2018 [id number] 200 actuat albuterol 0.09 mg/actuat metered dose inhaler (20 sources) beta2-Adrenergic Agonist Start: 01-04-2020 End: 10-02-2020 take 2 puff(s) by inhalation every four hours as needed for wheezing Albuterol Sulfate (Proair Hfa) 90 mcg/actuation HFA aerosol inhaler Discontinued 0 .ROUTE .COMPLEX 8.January 04, 2020 4:00pm October 02, 2020 12:54pm INHALE 2 PUFFS EVERY FOUR HOURS NEEDED FOR WHEEZING AND SHORTNESS OF BREATH Start: 09-07-2018 End: 01-04-2020 take 1 puff(s) by inhalation every four hours as needed Albuterol Sulfate Discontinued 1 PUFF INHALATION EVERY 4 HOURS NEEDED 8.5 January 03, 2020 3:20pm January 04, 2020 4:00pm Start: 09-07-2018 End: 10-02-2020 Start: 09-07-2018 End: 01-03-2020 take 1 puff(s) by inhalation every four hours as needed Albuterol Sulfate Discontinued 1 PUFF INHALATION EVERY 4 HOURS NEEDED 8.September 07, 2018 2:50pm January 03, 2020 4:20pm Start: 05-20-2018 End: 09-07-2018 take 1 puff(s) by inhalation every four hours as needed Albuterol Sulfate Discontinued 1 PUFF INHALATION EVERY 4 HOURS NEEDED May 19, 2018 11:00pm September 07, 2018 1:50pm Start: 05-20-2018 End: 09-07-2018 Start: 11-19-2015 take 2 puff(s) by in halation every four hours as needed for wheezing albuterol HFA (PROAIR HFA) 90 mcg/actuation inhaler Inhale 2 Puffs as instructed every 4 hours as needed for Wheezing/Shortness of Breath. 1 Inhaler 5 11/19/2015 Active Comment on above: Inhale 2 Puffs as in structed every 4 hours as needed for Wheezing/Shortness of Breath. amLODIPine 5 mg oral tablet (20 sources) Dihydropyridine Calcium Channel Shruti Start: 01-04-20 End: 03-05-20 take 5 mg by mouth once daily Amlodipine Discontinued 5 MG PO DAILY February 22, 2021 11:59am March 05, 2021 2:22pm Start: 12-03-2020 End: 12-03-2020 Amlodipine Discontinued 7.5 MG .ROUTE .COMPLEX 60 December 03, 2020 3:43pm December 03, 2020 9:30pm 7.5 mg; Start: 10-03-2020 End: 12-18-2020 take 1 tablet by mouth once daily Amlodipine Discontinued 0 .ROUTE .COMPLEX November 16, 2020 11:22am December 03, 2020 3:44pm TAKE 1 TABLET BY MOUTH DAILY Start: 09-01-2016 take 1 tablet by brook th once daily amLODIPine (NORVASC) 10 mg tablet Indications: Essential hypertension, benign Take 1 tablet by mouth once daily. 90 tablet 4 09/01/2016 Active Comment on above: Take 1 tablet by brook th once daily. ARIPiprazole 20 mg oral tablet (20 sources) Atypical Antipsychotic Start: 06-28-20 19 End: 11-05-19 21 take 1 tablet by mouth once daily Aripiprazole (Abilify) 20 mg tablet Discontinued 20 MG PO DAILY January 03, 2020 12:19pm November 05, 2020 1:49pm Start: 05-13-2019 End: 06-28-2019 take 1 tablet by mouth once daily Aripiprazole (Abilify) 15 mg tablet Discontinued 15 MG PO DAILY May 12, 2019 11:00pm June 28, 2019 2:11pm Start: 01-17-2019 End: 05-13-2019 take 1 tablet by mouth at bedtime Aripiprazole (Abilify) 10 mg tablet Discontinued 10 MG PO AT BEDTIME January 16, 2019 11:00pm May 13, 2019 1:53pm Start: 01-17-2019 End: 05-13-2019 take 1 tablet by brook th once daily ARIPiprazole 5 MG Oral Tablet TAKE 1 TABLET DAILY. Refills: 0 Active azithromycin 250 mg oral tablet (13 sources) Macrolide Antimicrobial Start: 06-18-2021 End: 08-07-2021 Azithromycin Discontinued 0 PO .COMPLEX 6 June 17, 2021 11:00pm August 07, 2021 12:09pm take 500 mg today (day 1), then 250 mg for 4 days (days 2-5) PO Start: 06-18-2021 End: 08-07-2021 baclofen 10 mg oral tablet (13 sources) gamma-Aminobutyric Acid-ergic Agonist Start: 12-18-2017 End: 12-31-2017 take 10 mg by mouth once daily Baclofen Discontinued 10 MG PO DAILY December 18, 2017 12:00am December 31, 2017 1:31pm benzonatate 100 mg oral capsule (20 sources) Non-narcotic Antitussive Start: 09-07-2018 End: 09-15-2018 take 200 mg by mouth three times daily as needed Benzonatate Discontinued 200 MG PO 3 TIMES DAILY NEEDED September 12, 2018 12:00am September 15, 2018 2:31pm Start: 07-21-2016 End: 09-15-2018 take 1 capsule by mouth every eight hours as needed benzonatate (TESSALON PERLES) 100 mg capsule Take 1 capsule by mouth three times daily as needed for Cough. 20 capsule 2 07/21/2016 Active Comment on above: Take 1 capsule by mo [facility] three times daily as needed for Cough. benztropine mesylate 0.5 mg oral tablet (20 sources) Anticholinergic, Antihistamine Start: 8 End: 8 take 1 tablet by mouth twice daily benztropine 0.5 mg tablet Discontinued 0.5 MG PO TWICE A DAY January 05, 2018 11:00pm June 16, 2018 12:28pm Start: 12-24-2017 End: 12-31-2017 take 1 mg by mouth once daily Benztropine Discontinued 1 MG PO DAILY December 24, 2017 12:00am December 31, 2017 1:31pm Blood Pressure Monitor (20 sources) Start: 10-04-2020 End: 11-15-2020 Blood Pressure Monitor Disco ntinued 0 .MEDSUPPLY 1 October 04, 2020 4:45pm November 15, 2020 9:49pm Check blood pressure daily for hypertension I10 Start: 10-04-2020 End: 11-15-2020 Blood Pressure Monitor Disco ntinued 0 .MEDSUPPLY 1 October 04, 2020 5:45pm November 15, 2020 10:49pm Check blood pressure daily for hypertension I10 Start: 10-03-2020 End: 10-04-2020 Blood Pressure Monitor Disco ntinued 0 .MEDSUPPLY 1 October 03, 2020 12:35pm October 04, 2020 5:46pm Check blood pressure daily for hypertension I10 Start: 10-03-2020 End: 10-04-2020 Blood Pressure Monitor Disco ntinued 0 .MEDSUPPLY 1 October 03, 2020 12:00am October 04, 2020 4:46pm Check blood pressure daily for hypertension I10 Start: 10-03-2020 End: 10-04-2020 Blood Pressure Monitor Disco ntinued 0 .MEDSUPPLY 1 October 03, 2020 1:00am October 04, 2020 5:46pm Check blood pressure daily for hypertension I10 buprenorphine 4 mg / naloxone 1 mg sublingual film (20 sources) Partial Opioid Agonist, Opioid Antagonist Start: 12-13-2020 End: 08-07-2021 Buprenorphine-Naloxone (Suboxone) 4-1 mg film Discontinued 1 FILM SL DAILY December 13, 2020 12:00am August 07, 2021 12:09pm Start: 12-13-2020 End: 08-07-2021 Start: 12-04-2020 End: 08-07-2021 Buprenorphine-Naloxone Disco ntinued 1 EACH SL DAILY December 04, 2020 12:00am August 07, 2021 12:09pm Start: 12-04-2020 End: 08-07-2021 Start: 12-24-2017 End: 05-13-2019 Buprenorphine-Naloxone Disco ntinued 2 EACH SL DAILY December 24, 2017 12:00am May 13, 2019 1:54pm Start: 12-24-2017 End: 05-13-2019 Start: 07-21-2016 Buprenorphine- nalOXone (SUBOXONE) 8-2 mg film Dissolve 2 Film under the tongue once daily. 0 07/21/2016 Active Comment on above: Dissolve 2 Film unde r the tongue once daily. calcium carbonate 1500 mg oral tablet (20 sources) Start: 12-04-2020 End: 05-08-2022 take 600 mg by mouth twice daily Calcium Carbonate Discontinued 600 MG PO TWICE A DAY 180 January 29, 2021 10:08am May 08, 2022 2:20pm Start: 01-06-2018 End: 10-02-2020 take 1 tablet by mouth twice daily at mealtime Calcium Carbonate Discontinued 0 .ROUTE .COMPLEX 56 September 27, 2020 9:46am October 02, 2020 12:54pm TAKE 1 TABLET BY MOUTH TWICE A DAY AFTER FOOD/MEAL take 1 tablet by brook th once daily Calcium 600 MG Oral Tablet TAKE 1 TABLET DAILY. Refills: 0 Active celecoxib 200 mg oral capsule (13 sources) Nonsteroidal Anti-inflammatory Drug Start: 12-18-2017 End: 12-31-2017 take 200 mg by mouth once daily Celecoxib Discontinued 200 MG PO DAILY December 18, 2017 12:00am December 31, 2017 1:32pm clindamycin 300 mg oral capsule (20 sources) Lincosamide Antibacterial Start: 03-18-2019 End: 05-13-2019 take 300 mg by mouth three times daily Clindamycin Hcl Discontinued 300 MG PO THREE TIMES A DAY March 17, 2019 11:00pm May 13, 2019 1:55pm Start: 08-31-2018 End: 09-15-2018 take 300 mg by mouth three times daily Clindamycin Hcl Discontinued 300 MG PO THREE TIMES A DAY August 31, 2018 12:00am September 15, 2018 2:31pm Compress.Stocking,Knee,Reg,L rg (11 sources) Start: 05-13-2019 End: 04-11-2020 Compress.Stocking,Knee,Reg,L rg Discontinued 0 .ROUTE .MEDSUPPLY 2 May 13, 2019 3:31pm April 11, 2020 9:24am wear daily for PVD 20-30 mmhg Start: 05-13-2019 End: 04-11-2020 Compress.Stocking,Knee,Reg,L rg Discontinued 0 .ROUTE .MEDSUPPLY 2 May 12, 2019 11:00pm April 11, 2020 8:24am wear daily for PVD 20-30 mmhg Start: 05-13-2019 End: 04-11-2020 Compress.Stocking,Knee,Reg,L rg Discontinued 0 .ROUTE .MEDSUPPLY 2 May 13, 2019 12:00am April 11, 2020 9:24am wear daily for PVD 20-30 mmhg Diaper,Brief,Adult,Disposabl e (Depend Underwear S-M) misc (11 sources) Start: 03-16-2019 End: 11-15-2020 Diaper,Brief,Adult,Disposabl e (Depend Underwear S-M) misc Discontinued 0 .ROUTE .MEDSUPPLY 54 March 16, 2019 4:27pm November 15, 2020 10:49pm As directed Start: 03-16-2019 End: 11-15-2020 Diaper,Brief,Adult,Disposabl e (Depend Underwear S-M) misc Discontinued 0 .ROUTE .MEDSUPPLY 54 March 15, 2019 11:00pm November 15, 2020 9:49pm As directed Start: 03-16-2019 End: 11-15-2020 Diaper,Brief,Adult,Disposabl e (Depend Underwear S-M) misc Discontinued 0 .ROUTE [facility] March 16, 2019 12:00am November 15, 2020 10:49pm As directed diclofenac sodium 50 mg delayed release oral tablet (13 sources) Nonsteroidal Anti-inflammatory Drug Start: 12-24-2017 End: 12-25-2017 take 50 mg by mouth twice daily at mealtime Diclofenac Sodium Discontinued 50 MG PO TWICE DAILY WITH MEALS December 24, 2017 12:00am December 25, 2017 6:06pm dicyclomine hydrochloride 10 mg oral capsule (20 sources) Anticholinergic Start: 09-29-2018 End: 12-17-2018 take 20 mg by mouth four times daily Dicyclomine Discontinued 20 MG PO 4 TIMES DAILY 30 December 03, 2018 4:50pm December 07, 2018 9:25am docusate sodium 50 mg / sennosides, mcfp 8.6 mg oral tablet (20 sources) Start: 06-24-2018 End: 05-31-2020 take 2 tablets by mouth twice daily Sennosides-Docusa te Sodium Discontinued 2 TABLET PO TWICE A DAY June 01, 2019 1:31pm May 31, 2020 3:04pm Start: 06-24-2018 End: 05-31-2020 Start: 04-28-2018 End: 06-08-2018 take 1 tablet by mouth twice daily Sennosides-Docusate Sodium (Senna With Docusate Sodium) 8.6-50 mg tablet Discontinued 1 TABLET PO TWICE A DAY 60 April 27, 2018 11:00pm June 08, 2018 10:11am Start: 04-28-2018 End: 06-08-2018 doxycycline monohydrate 100 mg oral capsule (13 sources) Tetracycline-class Drug Start: 12-24-2017 End: 12-31-2017 take 100 mg by mouth twice daily Doxycycline Monohydrate Discontinued 100 MG PO TWICE A DAY December 24, 2017 12:00am December 31, 2017 1:33pm famotidine 20 mg oral tablet (20 sources) Histamine-2 Receptor Antagonist Start: 10-26-2018 End: 01-17-2019 take 20 mg by mouth once daily Famotidine Discontinued 20 MG PO DAILY October 26, 2018 3:42pm January 17, 2019 7:55am Start: 06-16-2018 End: 10-26-2018 take 1 tablet by mouth once daily Famotidine (Acid Inspector Eyeglass Frames (Famotidine)) 10 mg tablet Discontinued 10 MG PO DAILY June 15, 2018 11:00pm October 26, 2018 3:43pm Fluad 65yr up(PF)45 mcg(15 mcgx3)/0.5 mL intramuscular syringe (flu vac (3 sources) Start: 07-14-2018 End: 07-14-2018 inject 1 mL by intramuscular injection once Fluad 65yr up(PF)45 mcg(15 mcgx3)/0.5 mL intramuscular syringe (flu vac Discontinued 0.5 ML IM ONCE July 14, 2018 1:10pm July 14, 2018 2:41pm Fluad Quad (65yr up)(PF) 60 mcg (15 mcg x 4)/0.5mL IM syringe (flu vac (3 sources) Start: 08-28-2021 End: 08-28-2021 Fluad Quad (65yr up)(PF) 60 mcg (15 mcg x 4)/0.5mL IM syringe (flu vac Discontinued 60 MCG IM ONCE 0.5 August 28, 2021 10:06am August 28, 2021 11:13am gabapentin 300 mg oral capsule (13 sources) Anti-epilep tic Agent Start: 12-18-2017 End: 12-31-2017 take 300 mg by mouth at bedtime Gabapentin Discontinued 300 MG PO AT BEDTIME December 18, 2017 12:00am December 31, 2017 1:33pm Start: 12-18-2017 End: 12-31-2017 12 hr guaiFENesin 600 mg extended release oral tablet (13 sources) Start: 12-24-2017 End: 12-31-2017 take 600 mg by mouth twice daily Guaifenesin Discontinued 600 MG PO TWICE A DAY December 24, 2017 12:00am December 31, 2017 1:33pm Hospital bed mattress (11 sources) Start: 03-16-2019 End: 11-15-2020 Hospital bed mattress Discontinued March 16, 2019 4:27pm November 15, 2020 10:49pm As directed Start: 03-16-2019 End: 11-15-2020 Hospital bed mattress Discon tinued March 15, 2019 11:00pm November 15, 2020 9:49pm As directed Start: 03-16-2019 End: 11-15-2020 [facility] bed mattress Discon tinued March 16, 2019 12:00am November 15, 2020 10:49pm As directed hydroCHLOROthiazide 25 mg oral tablet (20 sources) Thiazide Diuretic Start: 05-28-2022 End: 07-14-2022 Hydrochlorothiazide Discontinued 12.5 - 25 MG PO .PRN July 08, 2022 12:12pm July 14, 2022 2:07pm Take if blood pressure is over 140mmHg systolic. Start: 12-04-2020 End: 09-17-2022 take 1 tablet by mouth once daily hydroCHLOROthiazide (HYDRODIURIL, ESIDRIX) 25 mg tablet Take 1 tablet by mouth once daily. 08/12/2021 Active Start: 05-13-2019 End: 10-03-2020 take 12.5 mg by mouth once daily Hydrochlorothiazide Discontinued 12.5 MG PO DAILY April 16, 2020 7:20am October 03, 2020 11:35am take 1 capsule by mo [facility] once daily hydroCHLOROthiazide 12.5 MG Oral Capsule TAKE 1 CAPSULE ONCE DAILY. Refills: 0 Active Comment on above: Take 1 tablet by brook once daily. Take 25 mg by mouth ibuprofen 600 mg oral tablet (20 sources) Nonsteroidal Anti-inflammatory Drug Start: 9 End: 0 take 600 mg by mouth four times daily as needed Ibuprofen Discontinued 600 MG PO 4 TIMES DAILY NEEDED March 30, 2019 2:45pm November 08, 2019 4:12pm Start: 12-12-2016 take 1 tablet by brook th every eight hours as needed ibuprofen (MOTRIN) 800 mg tablet Take 1 tablet by mouth every 8 hours as needed for Pain. Take with food. 90 tablet 2 12/12/2016 Active Start: 05-21-2016 take 1 tablet by brook th every six hours as needed for pain ibuprofen (MOTRIN) 200 mg tablet Indications: Arthritis of knee, right Take 1 tablet by mouth every 6 hours as needed for Pain (Take with food.). 120 tablet 0 05/21/2016 Active Comment on above: Take 1 tablet by brook th every 6 hours as needed for Pain (Take with food.). Take 1 tablet by brook th every 8 hours as needed for Pain. Take with food. iloperidone 1 mg oral tablet (13 sources) Atypical Antipsychotic Start: 8 End: 8 take 1 tablet by mouth twice daily Iloperidone (Fanapt) 1 mg tablet Discontinued 1 MG PO TWICE A DAY June 15, 2018 11:00pm July 14, 2018 12:26pm imiquimod 50 mg/ml topical cream (13 sources) Start: 1 End: 1 Imiquimod (Aldara) 5 % cream in packet Discontinued 4 mm TOPICAL 5 times per week May 29, 2021 11:00pm July 10, 2021 11:01pm apply once daily Thursday through Thursday before bedtime Start: 05-30-2021 End: 07-11-2021 Lactobac Acidoph-Fructooligo s (20 sources) Start: 03-18-2019 End: 05-13-2019 Lactobac Acidoph-Fructooligo s Discontinued 1 EACH PO TWICE A DAY March 18, 2019 8:59am May 13, 2019 2:55pm Start: 03-18-2019 End: 05-13-2019 Lactobac Acidoph-Fructooligo s Discontinued 1 EACH PO TWICE A DAY March 18, 2019 8:56am May 13, 2019 2:55pm Start: 03-18-2019 End: 05-13-2019 Lactobac Acidoph-Fructooligo s Discontinued 1 EACH PO TWICE A DAY March 17, 2019 11:00pm May 13, 2019 1:55pm Start: 03-18-2019 End: 05-13-2019 Lactobac Acidoph-Fructooligo s Discontinued 1 EACH PO TWICE A DAY March 17, 2019 11:00pm May 13, 2019 1:55pm Start: 03-18-2019 End: 05-13-2019 Lactobac Acidoph-Fructooligo s Discontinued 1 EACH PO TWICE A DAY March 18, 2019 12:00am May 13, 2019 2:55pm Start: 03-18-2019 End: 05-13-2019 Lactobac Acidoph-Fructooligo s Discontinued 1 EACH PO TWICE A DAY March 18, 2019 12:00am May 13, 2019 2:55pm lidocaine 0.05 mg/mg medicated patch (2 sources) Antiarrhythmic, Amide Local Anesthetic Start: 08-05-2022 End: 09-04-2022 apply 1 dose topically twice daily Lidocaine (Lidoderm) 5 % adhesive patch,medicated Discontinued 1 PATCH TOPICAL TWICE A DAY 60 August 05, 2022 9:26am September 04, 2022 12:03am leave on most painful area for up to 12 hrs Start: 08-01-2022 End: 08-05-2022 apply 1 dose topically once daily Lidocaine (Lidoderm) 5 % adhesive patch,medicated Discontinued 1 PATCH TOPICAL DAILY July 31, 2022 11:00pm August 05, 2022 9:26am leave on most painful area for up to 12 hrs melatonin 3 mg oral tablet (20 sources) Start: 09-16-2022 take 1 tablet by mouth once daily at bedtime as needed for sleep melatonin 3 mg tablet Indications: Bipolar disorder with psychotic features (HCC-CMS) Take 1 Tablet by mouth nightly at bedtime as needed for sleep 30 Tablet 1 12/02/2022 Active Start: 01-17-2019 End: 10-02-2020 take 1 tablet by mouth at bedtime Melatonin (Melatin) 3 mg tablet Discontinued 3 MG PO AT BEDTIME July 28, 2019 1:00pm October 02, 2020 12:54pm Comment on above: Take 1 Tablet by brook th nightly at bedtime as needed for sleep meloxicam 15 mg oral tablet (13 sources) Nonsteroidal Anti-inflammatory Drug Start: 12-11-19 End: 05-06-20 take 1 tablet by mouth once daily Meloxicam (Mobic) 15 mg tablet Discontinued 15 MG PO DAILY December 11, 2021 12:00am May 06, 2022 6:18am nystatin 100 unt/mg topical powder (10 sources) Polyene Antifungal Start: 03-24-20 End: 05-14-20 Nyamyc [id number] UNIT/GM powder 24 hr paliperidone 3 mg extended release oral tablet (13 sources) Atypical Antipsychotic Start: 12-25-19 End: 01-01-20 take 3 mg by mouth at bedtime Paliperidone Discontinued 3 MG PO AT BEDTIME December 24, 2017 12:00am December 31, 2017 1:33pm Start: 12-24-2017 End: 12-31-2017 pravastatin sodium 40 mg oral tablet (20 sources) HMG-CoA Reductase Inhibitor Start: 12-04-2020 End: 01-03-2021 take 40 mg by mouth at bedtime Pravastatin Discontinued 40 MG PO AT BEDTIME December 04, 2020 12:00am January 03, 2021 1:44pm Start: 12-18-2017 End: 10-02-2020 take 40 mg by mouth at bedtime Pravastatin Discontinue d 40 MG PO AT BEDTIME 60 June 29, 2020 1:54pm October 02, 2020 12:54pm Comment on above: Take 40 mg by mouth prazosin 1 mg oral capsule (20 sources) alpha-Adrenergic Shruti Start: 11-18-2022 take 3 capsules by mouth at bedtime as needed prazosin (MINIPRESS) 1 mg capsule Indications: Bipolar disorder with psychotic features ([facility]-CMS) TAKE 3 CAPSULES BY MOUTH AT BEDTIME NEEDED FOR NIGHTMARES 90 Capsule 1 12/02/2022 Active Start: 08-12-2021 take 1 capsule by mo ut three times daily prazosin (MINIPRESS) 1 mg cap Take 1 capsule by mouth three times daily. 08/12/2021 Active Start: 01-25-2021 End: 03-21-2021 take 3 mg by mouth at bedtime Prazosin Discontinued 3 MG PO AT BEDTIME 90 January 25, 2021 1:10pm March 21, 2021 2:27pm Start: 01-25-2021 End: 03-21-2021 Start: 12-13-2020 End: 01-25-2021 take 3 mg by mouth at bedtime Prazosin Discontinued 3 MG PO AT BEDTIME December 13, 2020 4:14pm January 25, 2021 1:10pm Start: 10-04-2019 End: 01-25-2021 take 2 mg by mouth at bedtime Prazosin Discontinued 2 MG PO AT BEDTIME December 04, 2020 12:00am December 13, 2020 4:17pm Start: 03-18-2019 End: 10-02-2020 take 3 mg by mouth three times daily Minipress Discontinued 3 MG PO THREE TIMES A DAY March 18, 2019 6:51am October 02, 2020 11:59am Start: 03-18-2019 End: 10-02-2020 take 3 mg by mouth three times daily Minipress Discontinued 3 MG PO THREE TIMES A DAY March 17, 2019 11:00pm October 02, 2020 10:59am Start: 03-18-2019 End: 10-02-2020 take 3 mg by mouth three times daily Minipress Discontinued 3 MG PO THREE TIMES A DAY March 18, 2019 12:00am October 02, 2020 11:59am Comment on above: Take 1 capsule by mo uth three times daily. TAKE 3 CAPSULES BY M OUTH AT BEDTIME NEEDED FOR NIGHTMARES predniSONE 20 mg oral tablet (14 sources) Start: 08-05-2022 End: 09-17-2022 take 40 mg by mouth once daily Prednisone Discontinued 40 MG PO DAILY August 04, 2022 11:00pm September 17, 2022 8:52am Start: 12-18-2017 End: 12-25-2017 take 10 mg by mouth once daily Prednisone Discontinued 10 MG PO DAILY December 18, 2017 12:00am December 25, 2017 6:12pm Semaglutide-Weight Managemen t (Wegovy) 0.25 MG/0.5ML solution auto-injector (6 sources) Start: 06-17-2023 End: 07-09-2023 Semaglutide-Weight Managemen t (Wegovy) 0.25 MG/0.5ML solution auto-injector Indications: BMI 40.0-44.9, adult (HCC) Inject 0.5 mL (0.25 mg) under the skin every 7 days. 2 mL 0 06/17/2023 07/09/2023 Discontinued (Cost of medication) Start: 06-17-2023 End: 07-17-2023 Semaglutide-Weight Managemen t (Wegovy) 0.25 MG/0.5ML solution auto-injector Indications: BMI 40.0-44.9, adult (HCC) Inject 0.5 mL (0.25 mg) under the skin every 7 days. 2 mL 0 06/17/2023 07/17/2023 Active 1000 ml sodium chloride 9 mg/ml injection (2 sources) Start: 06-16-2023 End: 06-16-2023 sodium chloride 0.9 % infusion Tirzepatide (Mounjaro) 2.5 MG/0.5ML solution pen-injector (6 sources) Start: 07-09-2023 End: 07-10-2023 inject 2.5 mg by subcutaneous injection every week Tirzepatide (Mounjaro) 2.5 MG/0.5ML solution pen-injector Inject 2.5 mg under the skin 1 (one) time per week. 2 mL 0 07/09/2023 07/10/2023 Discontinued (Cost of medication) Start: 07-09-2023 inject 2.5 mg by sub cutaneous injection every week Tirzepatide (Mounjaro) 2.5 MG/0.5ML solution pen-injector Inject 2.5 mg under the skin 1 (one) time per week. 2 mL 0 07/09/2023 Active triamcinolone acetonide 40 mg/ml injectable suspension (6 sources) Corticosteroid Start: 08-07-2021 End: 08-07-2021 Kenalog (triamcinolone acetonide) 40 mg/mL suspension for injection Discontinued 40 MG INTRAARTIC ONCE 1 August 07, 2021 12:45pm August 07, 2021 2:59pm Start: 02-02-2018 End: 02-02-2018 Kenalog (triamcinolone aceto nide) 10 mg/mL suspension for injection Discontinued 2 MG INTRAARTIC ONCE 0.2 February 02, 2018 1:39pm February 02, 2018 2:52pm vitamin b12 0.5 mg sublingual tablet (15 sources) Vitamin B12 Start: 07-10-2023 End: 10-28-2023 take 1 tablet under the tongue once daily, then take 1 tablet under the tongue once daily Cyanocobalamin (B-12) 500 MCG sublingual tablet Indications: Low vitamin B12 level Place 500 mcg under the tongue daily. Place 500 mcg under the tongue to dissolve once daily 30 tablet 3 07/10/2023 09/28/2023 Discontinued (Reorder) Start: 09-01-2016 take 2 tablets by [facility] once daily cyanocobalamin (VITAMIN B-12) 500 mcg tab Take 2 tablets by mouth once daily. 180 tablet 4 09/01/2016 Active Comment on above: Take 2 tablets by mo ut once daily. Problems Active Problems Problem Classification Problem Date Documented Da te Episodic/Chronic Abdominal pain (20 sources) Epigastric pain; Translations: [Finding of sensation of abdomen] Episodic Acute and unspecified renal failure (20 sources) Injury of kidney; Translations: [Acute kidney failure, unspecified] Episodic Acute bronchitis (13 sources) Acute bronchitis; Translations: [Acute bronchitis, unspecified] Episodic Adjustment disorders (2 sources) Grief finding; Translations: [Adjustment disorder with depressed mood] Onset: 1 04-02-2021 Chronic Anxiety disorders (20 sources) Posttraumatic stress disorder; Translations: [Post-traumatic stress disorder, unspecified] Onset: 4 Chronic Biliary tract disease (13 sources) Obstructive hyperbilirubinemia; Translations: [Obstruction of bile duct] Chronic Biliary tract disease (13 sources) Cholecystitis; Translations: [Cholecystitis, unspecified] Episodic Cardiac dysrhythmias (13 sources) Atrial tachycardia; Translations: [Supraventricular tachycardia] Chronic Chronic obstructive pulmonary disease and bronchiectasis (20 sources) Chronic obstructive lung disease; Translations: [Chronic obstructive pulmonary disease, unspecified] Onset: 3 02-20-2021 Chronic Chronic obstructive pulmonary disease and bronchiectasis (20 sources) Bronchitis; Translations: [Bronchitis, not specified as acute or chronic] Episodic Chronic ulcer of skin (8 sources) Pressure ulcer of unspecified site, unspecified stage; Translations: [Pressure ulcer, unspecified site] Chronic Diabetes mellitus with complications (1 source) Type 2 diabetes mellitus with other specified complication; Translations: [Type 2 diabetes mellitus with other specified complication] Onset: 5 Chronic Diabetes mellitus without complication (1 source) Type 2 diabetes mellitus without complications; Translations: [Type 2 diabetes mellitus without complications] Onset: 5 Chronic Disorders of lipid metabolism (20 sources) Hyperlipidemia; Translations: [Hyperlipidemia, unspecified] Onset: 3 04-30-2023 Chronic E Codes: Fall (3 sources) Fall; Translations: [Unspecified fall, initial encounter] Onset: 1 08-29-2021 Episodic Epilepsy; convulsions (7 sources) Epilepsy; Translations: [Epilepsy, unspecified, not intractable, without status epilepticus] Onset: 1 06-04-2011 Chronic Esophageal disorders (20 sources) Gastroesophageal reflux disease; Translations: [Gastro-esophageal reflux disease without esophagitis] Onset: 3 Chronic Essential hypertension (20 sources) Hypertensive disorder; Translations: [Essential (primary) hypertension] Onset: 1 Chronic Fluid and electrolyte disorders (20 sources) Dehydration; Translations: [Dehydration] Episodic Fracture of upper limb (20 sources) Injury of wrist; Translations: [Fracture of unspecified carpal bone, left wrist, initial encounter for closed fracture] Episodic Gastritis and duodenitis (20 sources) Chronic superficial gastritis; Translations: [Chronic superficial gastritis without bleeding] Onset: 3 06-15-2023 Chronic Genitourinary symptoms and ill-defined conditions (16 sources) Urinary incontinence; Translations: [Unspecified urinary incontinence] Chronic Intestinal infection (13 sources) Acute infective gastroenteritis; Translations: [Infectious gastroenteritis and colitis, unspecified] Episodic Malaise and fatigue (20 sources) Asthenia; Translations: [Other malaise] Onset: 4 Episodic Miscellaneous mental health disorders (17 sources) Multiple personality disorder; 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 Mood disorders (20 sources) Bipolar I disorder; Translations: [Linnea] Onset: 1 Chronic Mycoses (13 sources) Candidiasis of skin; Translations: [Candidiasis of skin and nail] Episodic Nausea and vomiting (13 sources) Nausea, vomiting and diarrhea; Translations: [Nausea with vomiting, unspecified] Episodic Neoplasms of unspecified nature or uncertain behavior (20 sources) Essential thrombocythemia; Translations: [Essential (hemorrhagic) thrombocythemia] Onset: 4 Chronic Noninfectious gastroenteritis (20 sources) Gastroenteritis; Translations: [Noninfective gastroenteritis and colitis, unspecified] Episodic Nonspecific chest pain (15 sources) Chest pain; Translations: [Chest pain, unspecified] Episodic Nutritional deficiencies (14 sources) Vitamin D deficiency; Translations: [Vitamin D deficiency, unspecified] 07-09-2023 Chronic Nutritional deficiencies (1 source) Decreased vitamin B12 level; Translations: [Deficiency of other specified B group vitamins] 07-09-2023 Episodic Osteoarthritis (20 sources) Osteoarthritis of right knee joint; Translations: [Unilateral primary osteoarthritis, right knee] Onset: 2 12-29-2011 Chronic Osteoporosis (1 source) Age-related osteoporosis without current pathological fracture; Translations: [Age-related osteoporosis without current pathological fracture] Onset: Chronic Other and unspecified benign neoplasm (13 sources) Hemangioma of face; Translations: [Hemangioma of other sites] Episodic Other and unspecified benign neoplasm (13 sources) Dermal cellular nevus ; Translations: [Other benign neoplasm of skin, unspecified] Episodic Other and unspecified benign neoplasm (13 sources) 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, head, and neck; 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] Episodic Other and unspecified benign neoplasm (13 sources) Benign neoplasm of skin of cheek; Translations: [Other benign neoplasm of skin of other parts of face] Episodic Other bone disease and musculoskeletal deformities (13 sources) Osteopenia; Translations: [Other specified disorders of bone density and structure, unspecified site] Episodic Other circulatory disease (13 sources) Transient hypotension; Translations: [Hypotension, unspecified] Episodic Other circulatory disease (10 sources) Low blood pressure; Translations: [Hypotension, unspecified] Episodic Other circulatory disease (17 sources) Hypotension, unspecified; Translations: [Hypotension, unspecified] Episodic Other connective tissue disease (13 sources) Recurrent falls ; Translations: [Repeated falls] Episodic Other connective tissue disease (2 sources) Repeated falls; Translations: [History of fall] Episodic Other diseases of veins and lymphatics (3 sources) Venous insufficiency of leg; Translations: [Venous insufficiency (chronic) (peripheral)] Episodic Other diseases of veins and lymphatics (4 sources) Venous insufficiency (chronic) (peripheral); Translations: [Venous (peripheral) insufficiency, unspecified] Episodic Other gastrointestinal disorders (13 sources) Diarrhea; Translations: [Diarrhea, unspecified] Episodic Other gastrointestinal disorders (1 source) Chronic constipation; Translations: [Other constipation] Episodic Other gastrointestinal disorders (1 source) Other constipation; Translations: [Constipation, unspecified] Episodic Other hereditary and degenerative nervous system conditions (20 sources) Restless legs; Translations: [Restless legs syndrome] Chronic Other inflammatory condition of skin (13 sources) Intertrigo; Translations: [Erythema intertrigo] Episodic Other inflammatory condition of skin (13 sources) Irritant contact dermatitis; Translations: [Erythema intertrigo] Episodic Other injuries and conditions due to external causes (3 sources) Contusion; Translations: [Other injury of unspecified body region, initial encounter] Episodic Other injuries and conditions due to external causes (3 sources) Other injury of unspecified body region, initial encounter; Translations: [Contusion of unspecified site] Episodic Other liver diseases (13 sources) Inflammatory disease of liver; Translations: [Inflammatory liver disease, unspecified] Chronic Other liver diseases (13 sources) Enzyme level - finding; Translations: [Elevated transaminase measurement] Episodic Other lower respiratory disease (1 source) Rib pain; Translations: [Pleurodynia] Episodic Other lower respiratory disease (2 sources) Pleurodynia; Translations: [Chest pain, unspecified] Episodic Other nervous system disorders (13 sources) Carpal tunnel syndrome; Translations: [Carpal tunnel syndrome, left upper limb] Chronic Other nervous system disorders (3 sources) Carpal tunnel syndrome, left upper limb; Translations: [Carpal tunnel syndrome] Chronic Other non-traumatic joint disorders (13 sources) Ankle pain; Translations: [Pain in left ankle and joints of left foot] Episodic Other non-traumatic joint disorders (13 sources) Pain in right knee; Translations: [Pain in both knees] Episodic Other non-traumatic joint disorders (2 sources) Pain in left ankle and joints of left foot; Translations: [Pain in joint, ankle and foot] Episodic Other non-traumatic joint disorders (10 sources) Pain in wrist; Translations: [Pain in unspecified wrist] Episodic Other non-traumatic joint disorders (1 source) Pain in left hip; Translations: [Hip pain, acute, left] Onset: 5 Episodic Other non-traumatic joint disorders (1 source) Pain in right shoulder; Translations: [Pain in right shoulder] Onset: 5 Episodic Other non-traumatic joint disorders (1 source) Pain in left shoulder; Translations: [Pain in left shoulder] Onset: 5 Episodic Other nutritional; endocrine; and metabolic disorders (20 sources) Body mass index 40+ - severely obese; Translations: [Morbid (severe) obesity due to excess calories] Onset: 3 04-30-2023 Chronic Other nutritional; endocrine; and metabolic [...] obesity due to excess calories (HCC)] Onset: 3 Chronic Other nutritional; endocrine; and metabolic disorders (2 sources) Body mass index (BMI) 40.0-44.9, adult; Translations: [Body mass index (BMI) 40.0-44.9, adult (HCC)] Onset: 3 Chronic Other nutritional; endocrine; and metabolic disorders (2 sources) Body mass index (BMI) 39.0-39.9, adult; Translations: [Body mass index (BMI) 39.0-39.9, adult] Onset: 3 Chronic Other nutritional; endocrine; and metabolic disorders (1 source) Disorder of urea cycle metabolism, unspecified; Translations: [Disorder of urea cycle metabolism, unspecified] Onset: 4 Chronic Other skin disorders (13 sources) Multiple actinic keratoses; Translations: [Actinic keratosis] Episodic Personality disorders (8 sources) Borderline personality disorder; Translations: [Borderline personality disorder] Chronic Pneumonia (except that caused by tuberculosis or sexually transmitted disease) (13 sources) Pneumonia; Translations: [Pneumonia, unspecified organism] Episodic Residual codes; unclassified (13 sources) Hypoxia; Translations: [Idiopathic sleep related nonobstructive alveolar hypoventilation] Chronic Residual codes; unclassified (20 sources) Obstructive sleep apnea syndrome; Translations: [Obstructive sleep apnea (adult) (pediatric)] Onset: 3 04-30-2023 Chronic Residual codes; unclassified (5 sources) Sleep apnea; Translations: [Sleep apnea, unspecified] Onset: 3 03-30-2013 Chronic Residual codes; unclassified (8 sources) Obstructive sleep apnea (adult) (pediatric); Translations: [Obstructive sleep apnea (adult)(pediatric)] Onset: 3 Chronic Residual codes; unclassified (13 sources) Noncompliance with treatment; Translations: [Patient's noncompliance with other medical treatment and regimen] Episodic Residual codes; unclassified (13 sources) Pain; Translations: [Pain, unspecified] Episodic Residual codes; unclassified (13 sources) Delirium; Translations: [Disorientation, unspecified] Episodic Residual codes; unclassified (13 sources) Tobacco user; Translations: [Tobacco use] Episodic Rheumatoid arthritis and related disease (20 sources) Rheumatoid arthritis; Translations: [Rheumatoid arthritis, unspecified] Chronic Screening and history of mental health and substance abuse codes (13 sources) Ex-smoker; Translations: [Personal history of nicotine dependence] Episodic Substance-related disorders (20 sources) Opioid dependence; Translations: [Opioid dependence, uncomplicated] Onset: 2 02-04-2012 Chronic Substance-related disorders (2 sources) Stimulant abuse; Translations: [Other stimulant use, unspecified, uncomplicated] 02-20-2021 Episodic Superficial injury; contusion (20 sources) Contusion of rib; Translations: [Contusion of left front wall of thorax, initial encounter] Episodic Unclassified (1 source) Unknown / UNK(Unknown) Onset: 7 Unclassified (1 source) Thrombocytosis, unspecified; Translations: [Thrombocytosis, unspecified] Onset: 4 Urinary tract infections (20 sources) Urinary tract infectious disease; Translations: [Urinary tract infection, site not specified] Onset: 5 Episodic Past or Other Problems Problem Classification Problem Date Documented Da te Episodic/Chronic Allergic reactions (17 sources) Eruption due to drug; Translations: [Generalized skin eruption due to drugs and medicaments taken internally] Onset: 2 Resolved: 7 12-30-2016 Episodic Conditions associated with dizziness or vertigo (20 sources) Dizziness; Translations: [Dizziness and giddiness] Onset: 4 Episodic Deficiency and other anemia (5 sources) Anemia; Translations: [Anemia, unspecified] Onset: 1 06-04-2011 Episodic Diabetes mellitus without complication (20 sources) Prediabetes; Translations: [Prediabetes] Onset: 3 04-30-2023 Episodic Epilepsy; convulsions (20 sources) Seizure; Translations: [Unspecified convulsions] Onset: 1 02-20-2021 Episodic Immunizations and screening for infectious disease (16 sources) Needs influenza immunization; Translations: [Encounter for immunization] Onset: 4 Episodic Neoplasms of unspecified nature or uncertain behavior (20 sources) Neoplasm of skin of neck; Translations: [Neoplasm of unspecified behavior of bone, soft tissue, and skin] Onset: 2 Resolved: 7 Episodic Open wounds of extremities (1 source) Laceration without foreign body, left lower leg, initial encounter; Translations: [Laceration of left lower extremity, initial encounter] Onset: 4 Episodic Open wounds of extremities (1 source) Laceration without foreign body, right lower leg, initial encounter; Translations: [Laceration without foreign body, right lower leg, initial encounter] Onset: 4 Episodic Other and unspecified benign neoplasm (6 sources) History of polyp of colon; Translations: [Personal history of colonic polyps] Onset: 4 09-21-2014 Episodic Other and unspecified benign neoplasm (5 sources) Benign neoplasm of colon; Translations: [Benign neoplasm of colon, unspecified] Onset: 1 06-27-2011 Episodic Other and unspecified benign neoplasm (2 sources) Melanocytic nevi of unspecified part of face; Translations: [Benign neoplasm of skin of other and unspecified parts of face] Onset: 2 Resolved: 7 12-30-2016 Episodic Other circulatory disease (1 source) H/O: hypertension; Translations: [History of hypertension] Episodic Other connective tissue disease (2 sources) Patellar tendonitis; Translations: [Patellar tendinitis, unspecified knee] Onset: 2 Resolved: 2 02-04-2012 Episodic Other disorders of stomach and duodenum (3 sources) Nonulcer dyspepsia; Translations: [Functional dyspepsia] Onset: 3 06-16-2023 Episodic Other disorders of stomach and duodenum (1 source) Functional dyspepsia; Translations: [Functional dyspepsia] Onset: 3 Episodic Other gastrointestinal disorders (1 source) Personal history of other diseases of the digestive system; Translations: [History of gastroesophageal reflux (GERD)] Episodic Other gastrointestinal disorders (5 sources) Constipation; Translations: [Constipation, unspecified] Onset: 1 06-11-2011 Episodic Other hematologic conditions (1 source) H/O: anemia; Translations: [History of anemia] Episodic Other injuries and conditions due to external causes (2 sources) Open wound; Translations: [Other injury of unspecified body region, initial encounter] Onset: 3 Resolved: 7 12-30-2016 Episodic Other non-epithelial cancer of skin (20 sources) Basal cell carcinoma of upper lip; Translations: [Basal cell carcinoma of skin of lip] Onset: 2 Resolved: 7 12-30-2016 Episodic Other nutritional; endocrine; and metabolic disorders (1 source) H/O: raised blood lipids; Translations: [History of hyperlipidemia] Episodic Other nutritional; endocrine; and metabolic disorders (2 sources) Weight loss; Translations: [Weight Loss] Onset: 3 Episodic Other screening for suspected conditions (not mental disorders or infectious disease) (3 sources) Patient encounter status; Translations: [Encounter for screening for malignant neoplasm of colon] Onset: 1 Resolved: 2 02-04-2012 Episodic Other skin disorders (2 sources) Solar lentigo; Translations: [Other melanin hyperpigmentation] Onset: 2 Resolved: 7 12-30-2016 Episodic Residual codes; unclassified (1 source) Procedure and treatment not carried out due to patient leaving prior to being seen by health care provider; Translations: [Procedure and treatment not carried out due to patient leaving prior to being seen by health care provider] Onset: 4 Episodic Spondylosis; intervertebral disc disorders; other back problems (20 sources) Chronic back pain ; Translations: [Dorsalgia, unspecified] Onset: 1 06-04-2011 Episodic Unclassified (1 source) FOLLOW UP Onset: 7 Results Test Name Value Interpretation Reference Range [facility] HNO ID: [id number] Author: JOSE CASTRO RT(R) Service: ? Author Type: Technologist Type: Allied Health Filed: 02/13/2025 16:44 Note Text: Radiology Service Progress Note PATIENT NAME: Giovana Powell DATE OF SERVICE: February 13, 2025 TIME: 4:44 PM PATIENT IDENTITY VERIFICATION COMPLETED USING TWO (2) IDENTIFIERS: Name and Date of confirmed by patient verbally. FALL SCREENING: Has the patient had 2 falls in the last year or 1 fall with injury or currently using an Ambulatory Assistive Device (Walker, Cane, Wheelchair, Crutches, etc.)? Emergency Room Patient: Screened in ED PATIENT GENDER DATA: Assigned female at . status: : No status: NO. PATIENT RELEVANT IMPLANT DATA REVIEWED: Not Applicable PATIENT PRESENTS WITH AN IMPLANTABLE OR ATTACHED ACCOUNT ANALYST: No RADIOLOGY DEPARTMENT: General X-ray: Exam(s) Completed: Pelvis X-Ray: Pelvis with Hip Left PERIPHERAL IV DATA: Not applicable SIGNED BY: RT Alise(R) February 13, 2025 4:44 PM Normal [facility] ED NOTEon 02-13-2025 ED NOTE HNO ID: [id number] Author: LIZ ENGLAND RN Service: ? Author Type: Registered Nurse Type: ED Notes Filed: 02/14/2025 12:46 Note Text: Emergency Services: ED Call Back Questionnaire SERVICE DATE: 02/13/2025 Are you feeling better? Yes Any questions about discharge instructions and follow-up care? No Were you able to make a follow up appointment? No, referred to appointment hotline Do you have any further questions? No Is there anything that we could have done differently to improve your ED visit? No SIGNATURE: Liz England RN PATIENT NAME: Giovana Powell DATE: February 14, 2025 TIME: 12:46 PM Normal [facility] ED NOTE HNO ID: [id number] Author: TYE DASILVA, MARIBELL Service: ? Author Type: Registered Nurse Type: ED Notes Filed: 02/13/2025 14:26 Note Text: Pt reports l hip started to ache on Thursday, no known injury. The pain has gradually been getting worse. No known injury. Normal [facility] ED PROV NOTEon 02-13-2025 ED PROV NOTE HNO ID: [id number] Author: MEGAN GARCIA MD Service: Emergency Medicine Author Type: Physician Type: ED Provider Notes Filed: 02/14/2025 01:32 Note Text: ED Provider Note Patient Name: Giovana Powell : 1950 SERVICE DATE: 02/13/25 History Patient presents with: Hip Pain This is a 74-year-old female presenting with atraumatic left hip pain. She states it started to ache on Thursday when she woke up. It has been gradually worsening since that time and located over the lateral hip. No fevers or chills. She denies a history of chronic hip pain. No radiation of the pain down her lower extremity. She does have chronic back pain but denies a change in this associated with the hip pain. No previous hip fracture. No numbness or tingling. No increased lower extremity edema. No chest pain or difficulty breathing. 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 PAST SURGICAL HISTORY Procedure Laterality Date DELIVERY ONLY Times 3 COLONOSCOPY FLX DX W/COLLJ SPEC WHEN PFRMD 06/27/11 COLONOSCOPY FLX DX W/COLLJ SPEC WHEN PFRMD 11/24/14 poor prep -5 year follow up ESOPHAGOGASTRODUODENOSCOPY TRANSORAL DIAGNOSTIC N/A 01/22/2017 LAP HERNIA REPAIR W/MESH 1997 LAPS SURG CHOLECYSTECTOMY W/CHOLANGIOGRAPHY 03/14/2018 TOTAL ABDOMINAL HYSTERECT W/WO RMVL TUBE OVARY 1997 Hysterectomy, one ovary left in FAMILY HISTORY Problem Relation Age of Onset Hypertension Mother Arthritis Mother Hypertension Father Prostate Cancer Father Colon Cancer Brother 1/2 brother other (lung cancer) Brother Social History Tobacco Use Smoking status: Every Day Current packs/day: 0.50 Average packs/day: 0.5 packs/day for 39.3 years (19.7 ttl pk-yrs) Types: Cigarettes Start date: 10/16/1985 Smokeless tobacco: Never Substance and Sexual Activity Alcohol use: No Drug use: No Comment: history of crack/cocaine-recovering Sexual activity: Never ALLERGIES Allergen Reactions Eovist [Gadoxetate] Shortness of Breath MRI contrast Invega [Paliperidon* Other: See Comments Naprosyn [Naproxen] Hives Phenapine Mental Status Change Slow-Bid [Other] Mental Status Change lethargic with slurred speech Review of Systems Physical Exam Vitals [02/13/25 1425] BP Pulse Temp Temp src Resp SpO2 Weight Height 177/89 83 36.4 ?C (97.5 ?F) Temporal Art 18 95 % 88.5 kg (195 lb) -- Physical Exam HENT: Head: Normocephalic and atraumatic. Cardiovascular: Rate and Rhythm: Normal rate and regular rhythm. Pulmonary: Effort: Pulmonary effort is normal. Musculoskeletal: Comments: Patient has tenderness to palpation that seems to localize over the left trochanteric bursa/lateral hip. There is no significant pain with logrolling or passive range of motion. There is no erythema or notable effusion although that would be difficult to assess on this patient's body habitus and exam. Straight leg raising test is negative. No midline back tenderness. Skin: General: Skin is warm and dry. Capillary Refill: Capillary refill takes less than 2 seconds. Findings: No erythema or rash. Neurological: Sensory: No sensory deficit. Motor: No weakness. Psychiatric: Mood and Affect: Mood normal. Diagnostic Testing ED Labs Ordered and Reviewed - No data to display Procedures ED Course / Clinical Impression Clinical Impressions as of 02/14/25 0127 Hip pain, acute, left - likely trochanteric bursitis MDM / Disposition / Plan 74-year-old female presenting with atraumatic left hip pain clinically I think most consistent with left trochanteric bursitis. X-rays were obtained and unremarkable acutely, patient was started on steroid treatment and recommended to follow-up with primary care. I considered DVT but patient is having pain localized to the left lateral hip she has no new edema, considered septic arthritis although patient has no significant appreciable erythema warmth joint effusion and no significant pain with passive range of motion. Considered other infectious cause no signs of this clinically consider compartment syndrome no signs of this clinically considered radicular pain from the back but straight leg raising test is negative and no pain radiating in a radicular distribution. Considered fracture subluxation dislocation not found on x-ray considered AVN osteoarthritis not seen on x-ray. Diagnosis and chief complaint specific return precautions were reviewed in detail with the patient. The patient voiced understanding. Follow-up instructions reviewed with the patie (more content not included)... Normal [facility] XR HIP 3V PELV+ AP/LAT LTon 02-13-2025 XR HIP 3V PELV+ AP/LAT LT * * *Final Report* * * DATE OF EXAM: Feb 13 2025 4:15PM LDX 5351 - XR HIP 3V PELV+ AP/LAT LT / PROCEDURE REASON: Osteoarthritis * * * * Physician Interpretation * * * * PELVIS AND LEFT HIP CLINICAL INDICATION: Left hip pain COMPARISON: None. FINDINGS: Frontal view of the pelvis, frontal and frog leg lateral views of the left hip. Hip joint spaces and alignment are maintained. Sacroiliac joints are maintained. Mild degenerative change at the symphysis pubis. No fracture or dislocation. Degenerative spondylosis noted in the visualized lower lumbar spine. Bones are of diffusely decreased density. IMPRESSION: No fracture or dislocation. Play Therapist: PSCB Transcribe Date/Time: Feb 13 2025 4:33P Dictated by : SUMMER PEREZ MD This examination was interpreted and the report reviewed and electronically signed by: SUMMER PEREZ MD on Feb 13 2025 4:34PM EST [id number] Normal [facility] ALLIED HEALTHon 12-30-2024 ALLIED HEALTH HNO ID: [id number] Author: DOUGLAS ONOFRE, AMIE Service: ? Author Type: Technologist Type: Allied Health Filed: 12/30/2024 15:21 Note Text: Radiology Service Progress Note PATIENT NAME: Giovana Powell DATE OF SERVICE: December 30, 2024 TIME: 3:20 PM PATIENT IDENTITY VERIFICATION COMPLETED USING TWO (2) IDENTIFIERS: Name and Date of confirmed by patient verbally. FALL SCREENING: Has the patient had 2 falls in the last year or 1 fall with injury or currently using an Ambulatory Assistive Device (Walker, Cane, Wheelchair, Crutches, etc.)? Inpatient: Screened on floor PATIENT GENDER DATA: Assigned female at . status: : No status: NO. PATIENT RELEVANT IMPLANT DATA REVIEWED: Not Applicable PATIENT PRESENTS WITH AN IMPLANTABLE OR ATTACHED ACCOUNT ANALYST: No RADIOLOGY DEPARTMENT: General X-ray: Exam(s) Completed: Chest X-Ray PERIPHERAL IV DATA: Not applicable SIGNED BY: AMIE Soto December 30, 2024 3:20 PM Normal [facility] Bacteria Ur Culton Bacteria identified Cx Nom (U) ORGANISM ID: 1 >=100,000 CFU/ml Klebsiella pneumoniae group ORGANISM ID: 1 (KLEBSIELLA PNEUMONIAE GROUP) ------ ANTIBIOTIC INTERPRETATION DIEGO STATUS REFERENCE RANGE ------ Ampicillin R 8 F Cefazolin S <=1 F Susceptible 0-16 , Intermediate <0 or >16 , Resistant >16 For uncomplicated urinary tract infections, cefazolin results can be used to predict susceptibility or resistance to cephalexin. Ceftriaxone S <=1 F Susceptible <=1 , Intermediate >1 , Resistant >=4 Cefepime S <=1 F Susceptible <=2 , Susceptible-Dose Dependent >2 , Resistant >=16 Ertapenem S <=0.25 F Susceptible <=0.5 , Intermediate >.5 , Resistant >1 Meropenem S <=0.5 F Susceptible <=1 , Intermediate >1 , Resistant >2 Aztreonam S <=2 F Susceptible <=4 , Intermediate >4 , Resistant >=16 Ampicillin/Sulbact S 8 F Piperacillin/Tazobac S 4 F Gentamicin S <=2 F Susceptible <=4 , Intermediate >4 , Resistant >8 Trimeth sulfameth S <=0.5 F Ciprofloxacin S <=0.25 F Susceptible <0.5 , Intermediate >=.5 , Resistant >=1 Nitrofurantoin S 32 F Susceptible <=32 , Intermediate >32 , Resistant >64 Abnormal [facility] Comment on above: Performed By: #### 6 30-4 ####[facility] LABORATORYCLIA [id number] [address]#### [address]-1 ####[facility] LAB[facility] [id number] [address] [place] CBC W Auto Differential pane l (Bld)on 12-30-2024 Basophils (Bld) [#/Vol] 0.04 10*3/uL Normal <0.11 [facility] Comment on above: Order Comment: Speci men Type: BLOOD SPECIMENOrdering Facility: [facility] Address: [address] [place] [address] Performed By: #### 5 7021-8 ####[facility] LABCLIA [id number] [address] STATES [facility] Basophils/100 WBC (Bld) 0.3 % Normal [facility] Comment on above: Order Comment: Speci men Type: BLOOD SPECIMENOrdering Facility: [facility] Address: [address] [place] [address] Performed By: #### 5 7021-8 ####[facility] LABCL[facility] [id number] [address] Differential cell count method Nom (Bld) Auto Normal [facility] Comment on above: Order Comment: Speci men Type: BLOOD SPECIMENOrdering Facility: [facility] Address: [address] [place] [address] Performed By: #### 5 7021-8 ####[facility] LABCLIA [id number] [facility] [place] [address] [place] Eosinophils (Bld) [#/Vol] 0.61 10*3/uL High <0.46 [facility] Comment on above: Order Comment: Speci men Type: BLOOD SPECIMENOrdering Facility: [facility] Address: [address] [place] [address] Performed By: #### 5 7021-8 ####[facility] LABCLIA [id number] [place] [address] [place] Eosinophils/100 WBC (Bld) 4.5 % Normal [facility] Comment on above: Order Comment: Speci men Type: BLOOD SPECIMENOrdering Facility: [facility] Address: [address] [place] [address] Performed By: #### 5 7021-8 ####[facility] LABCLIA [id number] [facility] [place] [address] [place] Erythrocyte distribution width (RBC) [Ratio] 15.4 % High 11.5-15.0 [facility] Comment on above: Order Comment: Speci men Type: BLOOD SPECIMENOrdering Facility: [facility] Address: [address] [place] [address] Performed By: #### 5 7021-8 ####[facility] LABCLIA [id number] [facility] [place] [address] [place] Hematocrit (Bld) [Volume fraction] 44.4 % Normal 36.0-46.0 [facility] Comment on above: Order Comment: Speci men Type: BLOOD SPECIMENOrdering Facility: [facility] Address: [address] [place] [address] Performed By: #### 5 7021-8 ####[facility] LABCLIA [id number] [facility] [place] [address] [place] Hemoglobin (Bld) [Mass/Vol] 14.5 g/dL Normal 11.5-15.5 [facility] Comment on above: Order Comment: Speci men Type: BLOOD SPECIMENOrdering Facility: [facility] Address: [address] [place] [address] Performed By: #### 5 7021-8 ####[facility] LABCLIA [id number] [place] [address] [place] Immature granulocytes (Bld) [#/Vol] 0.14 10*3/uL High <0.10 [facility] Comment on above: Order Comment: Speci men Type: BLOOD SPECIMENOrdering Facility: [facility] Address: [address] [place] [address] Performed By: #### 5 7021-8 ####[facility] LABCLIA [id number] [place] [address] [place] Immature granulocytes/100 WBC (Bld) 1.0 % Normal [facility] Comment on above: Order Comment: Speci men Type: BLOOD SPECIMENOrdering Facility: [facility] Address: [address] [place] [address] Performed By: #### 5 7021-8 ####[facility] LABCLIA [id number] [place] [address] [place] Lymphocytes (Bld) [#/Vol] 3.26 10*3/uL Normal 1.00-4.00 [facility] Comment on above: Order Comment: Speci men Type: BLOOD SPECIMENOrdering Facility: [facility] Address: [address] [place] [address] Performed By: #### 5 7021-8 ####[facility] LABCLIA [id number] [place] [address] [place] Lymphocytes/100 WBC (Bld) 23.8 % Normal [facility] Comment on above: Order Comment: Speci men Type: BLOOD SPECIMENOrdering Facility: [facility] Address: [address] [place] [address] Performed By: #### 5 7021-8 ####[facility] LABCLIA [id number] [place] [address] [place] [facility] MCH (RBC) [Entitic mass] 31.1 pg Normal 26.0-34.0 [facility] Comment on above: Order Comment: Speci men Type: BLOOD SPECIMENOrdering Facility: [facility] Address: [address] [place] [address] Performed By: #### 5 7021-8 ####[facility] LABCLIA [id number] [place] [address] [place] [facility] MCHC (RBC) [Mass/Vol] 32.7 g/dL Normal 30.5-36.0 [facility] Comment on above: Order Comment: Speci men Type: BLOOD SPECIMENOrdering Facility: [facility] Address: [address] [place] [address] Performed By: #### 5 7021-8 ####[facility] LABCLIA [id number] [place] [address] [place] [facility] MCV (RBC) [Entitic vol] 95.3 fL Normal 80.0-100.0 [facility] Comment on above: Order Comment: Speci men Type: BLOOD SPECIMENOrdering Facility: [facility] Address: [address] [place] [address] Performed By: #### 5 7021-8 ####[facility] LABCLIA [id number] [place] [address] [place] Monocytes (Bld) [#/Vol] 0.81 10*3/uL Normal <0.87 [facility] Comment on above: Order Comment: Speci men Type: BLOOD SPECIMENOrdering Facility: [facility] Address: [address] [place] [address] Performed By: #### 5 7021-8 ####[facility] LABCLIA [id number] [place] [address] [facility] Monocytes/100 WBC (Bld) 5.9 % Normal [facility] Comment on above: Order Comment: Speci men Type: BLOOD SPECIMENOrdering Facility: [facility] Address: [address] [place] [address] Performed By: #### 5 7021-8 ####[facility] LABCLIA [id number] [facility] [place] [address] [place] Neutrophils (Bld) [#/Vol] 8.81 10*3/uL High 1.45-7.50 [facility] Comment on above: Order Comment: Speci men Type: BLOOD SPECIMENOrdering Facility: [facility] Address: [address] [place] [address] Performed By: #### 5 7021-8 ####[facility] LABCLIA [id number] [facility] [place] [address] [place] Neutrophils/100 WBC (Bld) 64.5 % Normal [facility] Comment on above: Order Comment: Speci men Type: BLOOD SPECIMENOrdering Facility: [facility] Address: [address] [place] [address] Performed By: #### 5 7021-8 ####[facility] LABCLIA [id number] [place] [address] [place] Nucleated RBC (Bld) [#/Vol] Normal [facility] Comment on above: Order Comment: Speci men Type: BLOOD SPECIMENOrdering Facility: [facility] Address: [address] [place] [address] Performed By: #### 5 7021-8 ####[facility] LABCLIA [id number] [facility] [place] [address] [place] Nucleated RBC/100 WBC (Bld) [Ratio] Normal [facility] Comment on above: Order Comment: Speci men Type: BLOOD SPECIMENOrdering Facility: [facility] Address: [address] [place] [address] Performed By: #### 5 7021-8 ####[facility] LABCLIA [id number] [facility] [place] [address] [place] Platelet mean volume (Bld) [Entitic vol] 9.0 fL Normal 9.0-12.7 [facility] Comment on above: Order Comment: Speci men Type: BLOOD SPECIMENOrdering Facility: [facility] Address: [address] [place] [address] Performed By: #### 5 7021-8 ####[facility] LABCLIA [id number] [place] [address] [facility] Platelets (Bld) [#/Vol] 665 10*3/uL High 150-400 [facility] Comment on above: Order Comment: Speci men Type: BLOOD SPECIMENOrdering Facility: [facility] Address: [address] [place] [address] Performed By: #### 5 7021-8 ####[facility] LABCLIA [id number] [place] [address] [facility] RBC (Bld) [#/Vol] 4.66 10*6/uL Normal 3.90-5.20 [facility] Comment on above: Order Comment: Speci men Type: BLOOD SPECIMENOrdering Facility: [facility] Address: [address] [place] [address] Performed By: #### 5 7021-8 ####[facility] LABCL[facility] [id number] [place] [address] [facility] WBC (Bld) [#/Vol] 13.67 10*3/uL High 3.70-11.00 [facility] Comment on above: Order Comment: Speci men Type: BLOOD SPECIMENOrdering Facility: [facility] Address: [address] [place] [address] Performed By: #### 5 7021-8 ####[facility] LABCLIA [id number] [place] [address] [facility] Comprehensive metabolic 2000 panelon 12-30-2024 Albumin [Mass/Vol] 4.0 g/dL Normal 3.9-4.9 [facility] Comment on above: Order Comment: Speci men Type: BLOOD SPECIMENOrdering Facility: [facility] Address: [address] [place] [address] Performed By: #### 3 040-3, , ####[facility] LABCLIA [id number] [place] [address] [place] [facility] ALP [Catalytic activity/Vol] 125 U/L High 34-123 [facility] Comment on above: Order Comment: Speci men Type: BLOOD SPECIMENOrdering Facility: [facility] Address: [address] [place] [address] Performed By: #### 3 040-3, , ####[facility] LABCLIA [id number] [facility] [place] [address] [facility] ALT With P-5'-P [Catalytic activity/Vol] 40 U/L High 7-38 [facility] Comment on above: Order Comment: Speci men Type: BLOOD SPECIMENOrdering Facility: [facility] Address: [address] [place] [address] Performed By: #### 3 040-3, , ####[facility] LABCLIA [id number] [facility] [place] [address] [facility] Anion gap [Moles/Vol] 13 mmol/L Normal 8-15 [facility] Comment on above: Order Comment: Speci men Type: BLOOD SPECIMENOrdering Facility: [facility] Address: [address] [place] [address] Performed By: #### 3 040-3, , ####[facility] [place] LABCLIA [id number] [place] [address] [facility] [place] AST With P-5'-P [Catalytic activity/Vol] 28 U/L Normal 13-35 [facility] Comment on above: Order Comment: Speci men Type: BLOOD SPECIMENOrdering Facility: [facility] Address: [address] [place], [place] [id number] Performed By: #### 3 040-3, , ####[facility] [place] LABCLIA [id number] [place] [address] [place] Bilirubin [Mass/Vol] 0.2 mg/dL Normal 0.2-1.3 [facility] Comment on above: Order Comment: Speci men Type: BLOOD SPECIMENOrdering Facility: [facility] Address: [address] [place] [address] Performed By: #### 3 040-3, , ####[facility] [place] LABCLIA [id number] [place] [address] [place] Calcium [Mass/Vol] 10.5 mg/dL High 8.5-10.2 [facility] Comment on above: Order Comment: Speci men Type: BLOOD SPECIMENOrdering Facility: [facility] Address: [address] [place] [address] Performed By: #### 3 040-3, , ####[facility] [place] LABCLIA [id number] [place] [address] [place] Chloride [Moles/Vol] 98 mmol/L Normal 98-107 [facility] Comment on above: Order Comment: Speci men Type: BLOOD SPECIMENOrdering Facility: [facility] Address: [address] [place] [address] Performed By: #### 3 040-3, , ####[facility] [place] LABCLIA [id number] [place] [address] [place] CO2 [Moles/Vol] 25 mmol/L Normal 22-30 [facility] Comment on above: Order Comment: Speci men Type: BLOOD SPECIMENOrdering Facility: [facility] Address: [address] [place] [address] Performed By: #### 3 040-3, , ####[facility] [place] LABCLIA [id number] [place] [address] [place] Creatinine [Mass/Vol] 0.75 mg/dL Normal 0.58-0.96 [facility] Comment on above: Order Comment: Aries bermudez Type: BLOOD SPECIMENOrdering Facility: [facility] Address: [address] [place] [address] Performed By: #### 3 040-3, 58929-9, ####MINAZANIN [facility] LABCLIA [id number] [place] [address] [place] Creatinine and Glomerular filtration rate.predicted panel (S/P/Bld) 85 mL/min/1.73m??? Normal >=60 [facility] Comment on above: Order Comment: Aries bermudez Type: BLOOD SPECIMENOrdering Facility: [facility] Address: [address] [place] [address] Result Comment: Jazmine mated Glomerular Filtration Rate (eGFR) is calculated using the 2020 CKD-EPI creatinine equation. This equation utilizes serum creatinine, sex, and age as parameters. The creatinine assay has traceable calibration to isotope dilution-mass spectrometry. Refer to KDIGO guidelines for clinical interpretation. In patients with unstable renal function, e.g. those with acute kidney injury, the eGFR may not accurately reflect actual GFR. Performed By: #### 3 040-3, 49024-8, ####[facility] [place] LABCLIA [id number] [place] [address] [place] Glucose [Mass/Vol] 110 mg/dL High 74-99 [facility] Comment on above: Order Comment: Aries bermudez Type: BLOOD SPECIMENOrdering Facility: [facility] Address: [address] [place] [address] Result Comment: The [place] Diabetes Association (ADA) provides guidance for cutoff values for fasting glucose and random glucose. The ADA defines fasting as no caloric intake for at least 8 hours. Fasting plasma glucose results between 100 to 125 mg/dL indicate increased risk for diabetes (prediabetes). Fasting plasma glucose results greater than or equal to 126 mg/dL meet the criteria for diagnosis of diabetes. In the absence of unequivocal hyperglycemia, results should be confirmed by repeat testing. In a patient with classic symptoms of hyperglycemia or hyperglycemic crisis, random plasma glucose results greater than or equal to 200 mg/dL meet the criteria for diagnosis of diabetes. Reference: Standards of Medical Care in Diabetes 2016, [place] Diabetes Association. Diabetes Care. 2016.39(Suppl 1). Performed By: #### 3 040-3, , ####LEONANAZANIN [facility] LABCLIA [id number] [place] [address] [place] Potassium [Moles/Vol] 4.5 mmol/L Normal 3.7-5.1 [facility] Comment on above: Order Comment: Speci men Type: BLOOD SPECIMENOrdering Facility: [facility] Address: [address] [place] [address] Performed By: #### 3 040-3, , ####[facility] LABCLIA [id number] [place] [address] [place] Protein [Mass/Vol] 6.9 g/dL Normal 6.3-8.0 [facility] Comment on above: Order Comment: Speci men Type: BLOOD SPECIMENOrdering Facility: [facility] Address: [address] [place] [address] Performed By: #### 3 040-3, , ####[facility] LABCLIA [id number] [place] [address] [place] Sodium [Moles/Vol] 136 mmol/L Normal 136-144 [facility] Comment on above: Order Comment: Speci men Type: BLOOD SPECIMENOrdering Facility: [facility] Address: [address] [place], [place] [address] Performed By: #### 3 040-3, , ####[facility] LABCLIA [id number] [place] [address] [place] Urea nitrogen [Mass/Vol] 11 mg/dL Normal 7-21 [facility] Comment on above: Order Comment: Speci men Type: BLOOD SPECIMENOrdering Facility: [facility] Address: [address] [place] [address] Performed By: #### 3 040-3, , ####[facility]ENITA [id number] [place] [address] [facility] ED NOTEon 12-30-2024 ED NOTE HNO ID: [id number] Author: VICTOR HUGO MIGUEL RN Service: ? Author Type: Registered Nurse Type: ED Notes Filed: 12/30/2024 15:52 Note Text: Patient informed: the name of medication, why we are giving it, possible side effects, what they may expect to feel, and was offered a chance to ask questions, prior to the administration of Rocephin [facility] ED NOTE HNO ID: [id number] Author: VICTOR HUGO MIGUEL RN Service: ? Author Type: Registered Nurse Type: ED Notes Filed: 12/30/2024 16:52 Note Text: Gold toned necklace with heart shaped pendant removed from pt and placed in specimen cup. Medic alert necklace removed from pt and placed in bag. Both items placed in pt purse Normal [facility] ED NOTE HNO ID: [id number] Author: VICTOR HUGO MIGUEL RN Service: ? Author Type: Registered Nurse Type: ED Notes Filed: 12/30/2024 14:17 Note Text: Pt arrives with report of I have been sick since Thursday, I am weak, and I think I am dehydrated. Pt reports vomited all day Thursday. When I asked how many times a day she has gotten sick since Thursday she states, I was just throwing up on Thursday. Pt denies diarrhea. Pt reports chronic shoulder and knee pain from arthritis. No other pain complaints. Pt reports possible exposure to COVID, I may have to be tested. Pt is also reporting a lot of congestion, pt is waving hand in front of her face. Pt denies cough and fever at home. [facility] ED PROV NOTEon 12-30-2024 ED PROV NOTE HNO ID: [id number] Author: SUSIE TSANG MD Service: Emergency Medicine Author Type: Physician Type: ED Provider Notes Filed: 12/30/2024 15:59 Note Text: ED Provider Note Patient Name: Giovana Powell : 1950 SERVICE DATE: 12/30/24 History Patient presents with: Nausea AND Vomiting Flu Like Symptoms Giovana Powell is a 74 year old female with history of multiple chronic medical problems who presents with Nausea AND Vomiting and Flu Like Symptoms. Patient took nothing for this prior to arrival. - Symptoms began 3 days prior to arrival. - Severity: mild - Timing: intermittent - Quality: Nausea and vomiting - Nausea AND Vomiting and Flu Like Symptoms is exacerbated by p.o. intake. - Nausea AND Vomiting and Flu Like Symptoms is not exacerbated by movement. - Symptoms are associated with possible exposure to COVID. - Symptoms are not associated with abdominal pain and diarrhea. - Improved by nothing. - Not improved by rest Multiple medical problems patient also states that she has had hoarseness for the past 2 months. No respiratory complaints cough or congestion.. 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 PAST SURGICAL HISTORY Procedure Laterality Date - DELIVERY ONLY Times 3 - COLONOSCOPY FLX DX W/COLLJ SPEC WHEN PFRMD 06/27/11 - COLONOSCOPY FLX DX W/COLLJ SPEC WHEN PFRMD 11/24/14 poor prep -5 year follow up - ESOPHAGOGASTRODUODENOSCOPY TRANSORAL DIAGNOSTIC N/A 01/22/2017 - LAP HERNIA REPAIR W/MESH 1997 - LAPS SURG CHOLECYSTECTOMY W/CHOLANGIOGRAPHY 03/14/2018 - TOTAL ABDOMINAL HYSTERECT W/WO RMVL TUBE OVARY 1997 Hysterectomy, one ovary left in FAMILY HISTORY Problem Relation Age of Onset - Hypertension Mother - Arthritis Mother - Hypertension Father - Prostate Cancer Father - Colon Cancer Brother 1/2 brother - other (lung cancer) Brother Social History Tobacco Use - Smoking status: Every Day Current packs/day: 0.50 Average packs/day: 0.5 packs/day for 39.2 years (19.6 ttl pk-yrs) Types: Cigarettes Start date: 10/16/1985 - Smokeless tobacco: Never Substance and Sexual Activity - Alcohol use: No - Drug use: No Comment: history of crack/cocaine-recovering - Sexual activity: Never ALLERGIES Allergen Reactions - Eovist [Gadoxetate] Shortness of Breath MRI contrast - Naprosyn [Naproxen] Hives - Slow-Bid [Other] Mental Status Change lethargic with slurred speech Review of Systems Constitutional: Positive for fatigue. Negative for chills and fever. HENT: Positive for voice change. Negative for congestion and sore throat. Respiratory: Negative for cough and shortness of breath. Cardiovascular: Negative for chest pain and palpitations. Gastrointestinal: Positive for nausea and vomiting. Negative for abdominal pain and diarrhea. Genitourinary: Positive for decreased urine volume. Negative for dysuria and flank pain. Allergic/Immunologic: Negative for environmental allergies, food allergies and immunocompromised state. Neurological: Negative for syncope and light-headedness. Physical Exam Vitals [12/30/24 1407] BP Pulse Temp Temp src Resp SpO2 Weight Height 147/81 (!) 92 36.4 ?C (97.5 ?F) Temporal 16 97 % 83.9 kg (185 lb) 1.524 m (5') Physical Exam Vitals and nursing note reviewed. Constitutional: General: She is not in acute distress. Appearance: She is not ill-appearing, toxic-appearing or diaphoretic. Comments: Elevated BMI HENT: Head: Normocephalic and atraumatic. Mouth/Throat: Pharynx: No oropharyngeal exudate. Eyes: General: No scleral icterus. Extraocular Movements: Extraocular movements intact. Cardiovascular: Rate and Rhythm: Normal rate and regular rhythm. Heart sounds: Normal heart sounds. Pulmonary: Effort: Pulmonary effort is normal. No respiratory distress. Breath sounds: Normal breath sounds. Abdominal: General: Abdomen is protuberant. There is no distension. Palpations: Abdomen is soft. Tenderness: There is no abdominal tenderness. There is no right CVA tenderness or left CVA tenderness. Skin: General: Skin is warm and dry. Capillary Refill: Capillary refill takes less than 2 seconds. Findings: No rash. Neurological: General: No focal deficit present. Mental Status: She is alert and oriented to person, place, and time. Psychiatric: Mood and Affect: Mood normal. Mood is not anxious or depressed. Behavior: Behavior normal. Diagnostic Testing ED Labs Ordered and Reviewed - No data to display Procedures ED Course / Clinica (more content not included)... Normal [facility] Lipase SerPl-cCncon 12-31-19 25 Lipase [Catalytic activity/Vol] 26 U/L Normal 16-61 [facility] Comment on above: Order Comment: Speci men Type: BLOOD SPECIMENOrdering Facility: [facility] Address: [address] [place] [address] Performed By: #### 3 040-3, 79645-9, 80444-3 ####[facility] [place] LABCLIA [id number] [place] [id number] [facility] Magnesium SerPl-mCncon 12-30 Magnesium [Mass/Vol] 1.7 mg/dL Normal 1.7-2.3 [facility] Comment on above: Order Comment: Speci men Type: BLOOD SPECIMENOrdering Facility: [facility] Address: [address] [place] [address] Performed By: #### 3 040-3, 83919-2, 22445-8 ####[facility] LAB[facility] [id number] [address] Urinalysis complete panel (U )on 12-30-2024 Bacteria LM.HPF (Urine sed) [#/Area] Moderate Abnormal None Seen [facility] Comment on above: Order Comment: Speci men Type: URINE SPECIMENOrdering Facility: [facility] Address: [address] [place] [address] Performed By: #### 6 30-4 ####[facility] [id number] [address] OF [facility]#### [address]5437-9 ####[facility] LAB[facility] [id number] [address] Bilirubin Ql (U) Negative Normal Negative [facility] Comment on above: Order Comment: Speci men Type: URINE SPECIMENOrdering Facility: [facility] Address: [address] [place] [address] Performed By: #### 6 30-4 ####[facility] LABORATORYCLIA [id number] [address]#### 19096-0 ####[facility] [place] LABCLIA [id number] [place] [address] [facility] [place] Clarity (Unsp spec) Slightly Cloudy Abnormal Clear [facility] Comment on above: Order Comment: Speci men Type: URINE SPECIMENOrdering Facility: [facility] Address: [address] [place] [address] Performed By: #### 6 30-4 ####[facility] [id number] [address]#### 12272-6 ####[facility] [place] LABCLIA [id number] [address] Color (U) Yellow Normal Yellow [facility] Comment on above: Order Comment: Speci men Type: URINE SPECIMENOrdering Facility: [facility] Address: [address] [place] [address] Performed By: #### 6 30-4 ####[facility] [id number] [address]#### 14580-0 ####[facility] LABCLIA [id number] [address] Epithelial cells LM.HPF (Urine sed) [#/Area] Few Normal [facility] Comment on above: Order Comment: Speci men Type: URINE SPECIMENOrdering Facility: [facility] Address: [address] [place] [address] Performed By: #### 6 30-4 ####[facility] [id number] [address]#### 03372-8 ####[facility] [place] LABCLIA [id number] [address] OF [place] Glucose Test strip (U) [Mass/Vol] Negative Normal Negative [facility] Comment on above: Order Comment: Speci men Type: URINE SPECIMENOrdering Facility: [facility] Address: [address] [place] [address] Performed By: #### 6 30-4 ####[facility] [id number] [address] [place]#### 24729-6 ####[facility] [place] LABCLIA [id number] [place] [address] [place] Hemoglobin Ql (U) Negative Normal Negative [facility] Comment on above: Order Comment: Speci men Type: URINE SPECIMENOrdering Facility: [facility] Address: [address] [place] [address] Performed By: #### 6 30-4 ####[facility] [id number] [address] [place]#### 98150-9 ####[facility] [place] LABCLIA [id number] [address] [place] Ketones Ql (U) Negative Normal Negative [facility] Comment on above: Order Comment: Speci men Type: URINE SPECIMENOrdering Facility: [facility] Address: [address] [place] [address] Performed By: #### 6 30-4 ####[facility] [id number] [address] [place]#### 74080-1 ####[facility] [place] LABCLIA [id number] [place] [address] [place] Leukocyte esterase Test strip Ql (U) 1+ Abnormal Negative [facility] Comment on above: Order Comment: Speci men Type: URINE SPECIMENOrdering Facility: [facility] Address: [address] [place] [address] Performed By: #### 6 30-4 ####[facility]ORY[facility] [id number] [address] [place]#### 77961-8 ####[facility] [place] LABCLIA [id number] [place] [id number] [place] [address] Nitrite Ql (U) Negative Normal Negative [facility] Comment on above: Order Comment: Speci men Type: URINE SPECIMENOrdering Facility: [facility] Address: [address] [place] [address] Performed By: #### 6 30-4 ####[facility] LABORATORYCLIA [id number] [address]#### 25105-5 ####[facility] [place] LABCLIA [id number] [address] STATES [facility] pH (U) 5.5 [pH] Normal 5.0-8.0 [facility] Comment on above: Order Comment: Speci men Type: URINE SPECIMENOrdering Facility: [facility] Address: [address] [place] [address] Performed By: #### 6 30-4 ####[facility] LABORATORYCLIA [id number] [address]#### 91781-3 ####[facility] LABCL[facility] [id number] [address] STATES [facility] Protein (U) [Mass/Vol] Negative Normal Negative [facility] Comment on above: Order Comment: Speci men Type: URINE SPECIMENOrdering Facility: [facility] Address: [address] [place] [address] Performed By: #### 6 30-4 ####[facility] [id number] [address]#### 35962-7 ####[facility] [place] LABCLIA [id number] [address] RBC LM.HPF (Urine sed) [#/Area] 0-3 /HPF Normal 0-3 /HPF [facility] Comment on above: Order Comment: Speci men Type: URINE SPECIMENOrdering Facility: [facility] Address: [address] [place] [address] Performed By: #### 6 30-4 ####[facility] [id number] [address]#### 79234-8 ####[facility] [place] LABCLIA [id number] [place], [place] [address] [place] [address] Specific gravity (U) [Rel density] 1.010 Normal 1.005-1.030 [facility] Comment on above: Order Comment: Speci men Type: URINE SPECIMENOrdering Facility: [facility] Address: [address] [place] [address] Performed By: #### 6 30-4 ####[facility] [id number] [address]#### 71676-6 ####[facility] [place] LABCLIA [id number] [address] Urobilinogen Ql (U) 0.2 EU/dL Normal 0.2-1.0 EU/dL [facility] Comment on above: Order Comment: Speci men Type: URINE SPECIMENOrdering Facility: [facility] Address: [address] [place] [address] Performed By: #### 6 30-4 ####[facility] [id number] [address]#### 06957-2 ####[facility] [place] LABCLIA [id number] [address] WBC LM.HPF (Urine sed) [#/Area] 11-25 /HPF Abnormal 0-5 /HPF [facility] Comment on above: Order Comment: Speci men Type: URINE SPECIMENOrdering Facility: [facility] Address: [address] [place] [address] Performed By: #### 6 30-4 ####[facility]ORYCLIA [id number] [address] [place]#### [address]76-3 ####[facility] [place] LABCLIA [id number] [place] [address] [place] XR CHEST 1V FRONTALon 2024 XR CHEST 1V FRONTAL * * *Final Report* * * DATE OF EXAM: Dec 30 2024 3:16PM LDX 5290 - XR CHEST 1V FRONTAL / PROCEDURE REASON: Cough * * * * Physician Interpretation * * * * EXAMINATION: CHEST RADIOGRAPH (SINGLE VIEW AP OR PA) CLINICAL HISTORY: Cough MQ: XC1_5 Comparison: 01/06/2012 RESULT: Lines, tubes, and devices: None. Lungs and pleura: No consolidation. No lung mass. No pleural effusion. Cardiomediastinal silhouette: Normal cardiomediastinal silhouette. Other: . Advanced degenerative changes left shoulder joint IMPRESSION: No acute radiographic abnormality. Play Therapist: CORINNE Transcribe Date/Time: Dec 30 2024 3:23P Dictated by : SHORTY DE LUNA MD This examination was interpreted and the report reviewed and electronically signed by: SHORTY DE LUNA MD on Dec 30 2024 3:23PM EST [id number] Normal [facility] ED NOTEon 06-01-2024 ED NOTE HNO ID: [id number] Author: LIZ ENGLAND RN Service: ? Author Type: Registered Nurse Type: ED Notes Filed: 06/01/2024 10:05 Note Text: Emergency Services: ED Call Back Questionnaire SERVICE DATE: 05/31/2024 Are you feeling better? Yes Any questions about discharge instructions and follow-up care? No Were you able to make a follow up appointment? No, referred to appointment hotline Do you have any further questions? No Is there anything that we could have done differently to improve your ED visit? No SIGNATURE: Liz England RN PATIENT NAME: Giovana Powell DATE: June 01, 2024 TIME: 10:05 AM Normal [facility] ED PROV NOTEon 06-01-2024 ED PROV NOTE HNO ID: [id number] Author: GERMAN BIGGS MD Service: Emergency Medicine Author Type: Physician Type: ED Provider Notes Filed: 06/01/2024 05:11 Note Text: ED Provider Note Patient Name: Giovana Powell : 1950 SERVICE DATE: 05/31/24 History Patient presents with: Leg Injury Laceration Back female presents to the emergency department with family, for concerns of a laceration to her left loja. This happened approximately 2 hours ago when patient was getting out of the car. Patient did not fall, there is no other injuries appreciated. Patient's tetanus is out of date. Patient has not taken her blood pressure medications this evening. Laceration Location: Leg Leg laceration location: L lower leg Depth: Through dermis Quality: straight Bleeding: venous Injury mechanism: edge of car door. Pain details: Quality: Dull Severity: Moderate Timing: Constant Foreign body present: No foreign bodies Relieved by: Nothing Worsened by: Nothing Ineffective treatments: None tried Tetanus status: Out of date Associated symptoms: no fever, no redness and no swelling PAST MEDICAL HISTORY No date: Acid reflux No date: Arthritis No date: Back pain, chronic Comment: DJD No date: Bipolar affective disorder ([facility]) No date: Chronic obstructive pulmonary disease (COPD) ([facility]) No date: Cocaine addiction ([facility]) Comment: as of 11, 120 days into recovery No date: Constipation No date: Depression No date: Essential hypertension, benign No date: Hypercholesteremia No date: Unspecified epilepsy without mention of intractable epilepsy ([facility]) Comment: Left temopral lobe seiazures, contrlled on depakote PAST SURGICAL HISTORY No date: DELIVERY ONLY Comment: Times 3 06/27/11: COLONOSCOPY FLX DX W/COLLJ SPEC WHEN PFRMD 11/24/14: COLONOSCOPY FLX DX W/COLLJ SPEC WHEN PFRMD Comment: poor prep -5 year follow up 01/22/2017: ESOPHAGOGASTRODUODENOSCOPY TRANSORAL DIAGNOSTIC; N/A 1998: LAP HERNIA REPAIR W/MESH 03/14/2018: LAPS SURG CHOLECYSTECTOMY W/CHOLANGIOGRAPHY 1998: TOTAL ABDOMINAL HYSTERECT W/WO RMVL TUBE OVARY Comment: Hysterectomy, one ovary left in FAMILY HISTORY Problem Relation Age of Onset Hypertension Mother Arthritis Mother Hypertension Father Prostate Cancer Father Colon Cancer Brother 1/2 brother other (lung cancer) Brother Social History Tobacco Use Smoking status: Every Day Packs/day: 0.50 Years: 30.00 Additional pack years: 0.00 Total pack years: 15.00 Types: Cigarettes Last attempt to quit: 10/16/2015 Years since quittin.6 Smokeless tobacco: Never Substance and Sexual Activity Alcohol use: No Drug use: No Comment: history of crack/cocaine-recovering Sexual activity: Never ALLERGIES Allergen Reactions Eovist [Gadoxetate] Shortness of Breath MRI contrast Naprosyn [Naproxen] Hives Slow-Bid [Other] Mental Status Change lethargic with slurred speech Review of Systems Constitutional: Negative for fever. All other systems reviewed and are negative. Physical Exam Vitals [05/31/24 2246] BP Pulse Temp Temp src Resp SpO2 Weight Height (!) 203/92 90 36.1 ?C (97 ?F) Temporal Art 18 97 % 90.3 kg (199 lb) -- Physical Exam Vitals and nursing note reviewed. Constitutional: General: She is not in acute distress. Appearance: Normal appearance. She is not ill-appearing or toxic-appearing. HENT: Head: Normocephalic and atraumatic. Eyes: General: Right eye: No discharge. Left eye: No discharge. Pulmonary: Effort: No respiratory distress. Skin: General: Skin is warm and dry. Comments: Is a somewhat V shaped horizontally orientated flap of the laceration Chuy midportion left lower extremity, there is some venous oozing, do not appreciate on the underlying bone, tendon or muscle, is through the fascial layer however, there is no arterial bleeding, no foreign body, no debris Patient has 2+ pitting lower extremity edema that is symmetric bilaterally, and she has small areas of oozing serous type fluid Patient has intact plantarflexion, dorsiflexion, good range of motion of her knee and elbow Neurological: General: No focal deficit present. Mental Status: She is alert and oriented to person, place, and time. Mental status is at baseline. Psychiatric: Mood and Affect: Mood normal. Behavior: Behavior normal. Diagnostic Testing ED Labs Ordered and Reviewed - No data to display LAC REPAIR Date/Time: 06/01/2024 5:04 AM Performed by: German Biggs MD Authorized by: German Biggs MD Risks discussed: Infection and pain Anesthesia (see MAR for exact dosages): Anesthesia method: Local infiltration Local anesthetic: Lidocaine 1% w/o epi Laceration details: Location: Leg Length (cm): 3 Repair type: Repair type: Simple Pre-procedure details: Preparation: Patient was prepped and draped in usual sterile fashion Exploration: (more content not included)... [facility] ED NOTEon 05-31-2024 ED NOTE HNO ID: [id number] Author: TYE HECTOR, RN Service: Emergency Medicine Author Type: Registered Nurse Type: ED Notes Filed: 05/31/2024 22:50 Note Text: Just RELIEF COOK patient hit left lower leg on car door. Laceration noted to left lower leg. [facility] 36on 02-15-2024 36 We have been unable to reach your patient to schedule their testing. Test Name: Spirometry 1st Attempt: MyChart 2nd Attempt: spoke to patient and she no longer wants to have the test done Deferred order [facility] 36on 10-08-2023 36 JZ Incoming call from [facility] with request for refill of Vit D3. Pt noted to have withdrawn from the surgical program and will need to obtain refill from PCP. Call to pharmacy and notified that pt is no longer under care of this office. [facility] 36on 10-05-2023 36 Noted, thanks [facility] 36 See TE from 09/21/23 where pt withdrew from surg program and non surg. [facility] 36 Per message in [employer] file from 08/12/23, pt withdrew from surg [...] to be cancelled via pool: [facility] ALS CLINICAL MASTER OCEAN YACHT (List Surgeon as provider in the TE) EGD done 06/16/23 [x] Clinical staff to note in specialty comment date patient has withdrawn from the program [x] Sent to [employer] and Surgical Navigation and Financial Teams for notification. [facility] 36on 09-28-2023 36 One month sent but p t needs to complete repeat labs- please advise, thanks! [facility] 36 Received fax from [facility] requesting refills for Vit B-12 500 mcg. [facility] 36on 09-21-2023 36 Name of caller: Anita de la paz Contact phone number: [phone] Relationship to Patient: patient Provider: Kareem Hartmann [...] business hours to return their call: Yes [facility] Progress Noteon 09-21-2023 Progress Note I called Ms. Powell ( using the phone number listed in [employer]) to discuss how she is tolerating the Trulicity. She did not shrimp picker the phone. Kareem Hartmann MD 3:14 PM 09/21/2023 [facility] 36on 09-08-2023 36 Left a detailed mess age for the patient about her trulicity and to stop the medication if she is having an issues. I read all of Dr Dueñas message to the patient. [facility] 36on 09-06-2023 36 I called Ms. Powell u sing the number in [employer] but she did not shrimp picker her phone. Please call Ms. Powell and ask how she is tolerating the Trulicity (in particular if she is having constipation). If she develops constipation or other side effects, please ask her to stop the Trulicity. Contact PCP for non-urgent matters, and seek immediate medical attention for urgent medical issues. Thank you [facility] Office Visiton 09-03-2023 Follow-up visit [id number] ArlineGiovana hamm 1950 F Date Provider Department Center 09/03/2023 [id number] HARTMANN [facility] None Family History Problem Relation Age of Onset Cancer Sister Obesity Sister Diabetes Brother Hypertension Brother Obesity Brother Obesity Maternal Grandfather Obesity Maternal Grandmother Family Status - Relation Status Age at Sister Alive Brother Alive Maternal Grandfather Alive Maternal Grandmother Alive Level of Service:54339 MO OFFICE/OUTPATIENT ESTABLISHED MOD MDM 30-39 MIN Reason for Visit and Comments: Weight Loss [616955] - Nsurg #1 [facility] Progress Noteon 09-03-2023 Progress Note [facility] NON-SURGICAL WEIGHT LOSS MANAGEMENT PROGRAM ROOMING NOTE: FOLLOW UP VISIT Patient: Giovana Powell Date of : 1950 Service Date: 09/03/2023 Patient History/Assessment Summary: The patient is a pleasant 73 y.o. year old female, who stands Height: 5' (152.4 cm) tall with a weight of Weight: 222 lb 12.8 oz (101 kg) pounds, resulting in a BMI of Body mass index is 43.51 kg/m?. kg/m2. She is here for follow-up for non-surgical treatment of Morbid Obesity Patient has the following question(s): none Pre Program Weight Metrics (CARE [facility]) Date of Initial Consultation:@FLOWLAST(8961) @ Initial Weight: @FLOWLAST([id number])@ Initial BMI: @FLOWLAST(443784656)@ Sapello Body Weight: @FLOWLAST([id number])@ Excess Body Weight: @FLOWLAST([id number])@ Body Fat Percentage: No flowsheet data found. [...] home O2 Completed by: Juanita Daigle MA [facility] Progress Note WEIGHT MANAGEMENT IN [facility] NON-SURGICAL WEIGHT LOSS PROGRAM FOLLOW-UP HPI: Weight trend since last visit: gained 0.8 pounds. The patient does not have any acute complaints. Physical Examination: BP (!) 169/106 Ht 5' (1.524 m) Wt 222 lb 12.8 oz (101 kg) BMI 43.51 kg/m? HR 80 Awake, alert, and oriented, no [...] the Trulicity, contact PCP and Weight Management [place], and seek immediate medical attention for urgent [...] follow up with her sleep specialist in [place] --smoking cessation: recently quit with nicotine patch [...] --Leukocytosis and elevated platelets: follows with hematology/oncology ([facility], Dr. Russell) Plan of care discussed [...] mouth every other day. FESOTERODINE ER (TOVIAZ) (more content not included)... [facility] 36on 08-12-2023 36 Patient states she i s switching to the NSRUG program with Dr. Hartmann. [facility] 36on 08-10-2023 36 Patient needs schedu led for psychology please. On d/e 5 out of 6, thanks. [facility] Office Visiton 08-10-2023 Follow-up visit [id number] Giovana Powell 1950 F Date Provider Department [employer] 08/10/2023 [id number], KAREEM [facility] None Family History Problem Relation Age of Onset Cancer Sister Obesity Sister Diabetes Brother Hypertension Brother Obesity Brother Obesity Maternal Grandfather Obesity Maternal Grandmother Family Status - Relation Status Age at Sister Alive Brother Alive Maternal Grandfather Alive Maternal Grandmother Alive Level of Service:48353 MO OFFICE/OUTPATIENT ESTABLISHED MOD MDM 30-39 MIN Reason for Visit and Comments: Weight Loss [960473] - D/E 4 of 6 [facility] Progress Noteon 08-10-2023 Progress Note [facility] - SURGICAL WEIGHT LOSS MANAGEMENT PROGRAM PHYSICIAN [...] Wt 222 lb (101 kg) BMI 43.36 kg/m? Awake, alert, and oriented, no apparent distress. [...] follow up with her sleep specialist in [place] --smoking cessation: recently quit with nicotine patch [...] --Leukocytosis and elevated platelets: follows with hematology/oncology ([facility], Dr. Russell) Advised patient to continue [...] the tongue to dissolve once daily DIVALPROEX (DEPAK (more content not included)... Normal [facility] Progress Noteon 08-05-2023 Progress Note [facility] BARIATRIC NUTRITION ASSESSMENT / [...] all meals Bariatric Nutrition Assessment completed by: Douglas Mason RD [facility] 36on 07-14-2023 36 So far, we haven't r eceived anything from the pharmacy about a prior authorization for Trulicity. When I spoke to the patient, I also told her to call us if there was any issues. [facility] 36 Thank you, yes [place] was recommended by the insurance company since Mounjaro is not covered. How will we know if Trulicity is covered by insurance? Thanks again [facility] 36 FYI: Spoke with leo cadet. States that she was put on Metformin from Dr. Baird because she is a diabetic now. Mounjaro prior authorization was denied by her insurance. Pt was told that Trulicity was sent into her pharmacy, but pt seemed unaware that it was sent it. She was going to check with her pharmacy and was told if there was any issues to call us back. [facility] 36on 07-13-2023 36 Started PA through CMM. Normal [facility] Laboratory - Chemistry and C hemistry - challengeon 2023 Thiamine pyrophosphate (Bld) [Moles/Vol] 171 nmol/L 70 - 180 nmol/L [facility] Comment on above: INTERPRETIVE INFORMA TION: Vitamin B1, Whole Blood This assay measures the concentration of thiamine diphosphate (TDP), the primary active form of vitamin B1. Approximately 90 percent of vitamin B1 present in whole blood is TDP. Thiamine and thiamine monophosphate, which comprise the remaining 10 percent, are not measured. This test was developed and its performance characteristics determined by [facility]. It has not been cleared or approved by the [place] Food and Drug Administration. This test was performed in a CLIA certified laboratory and is intended for clinical purposes. Performed By: [facility] [address] [place] [address] Stock Parts Inspector: Zia Boggs MD, PhD CLIA Number: [id number] Laboratory - Drug toxicology on 2023 Zinc [Mass/Vol] 108.0 ug/dL 60.0 - 120.0 ug/dL [facility] Comment on above: INTERPRETIVE INFORMA TION: Zinc, Serum or Plasma Elevated results may be due to skin or collection-related contamination, including the use of a noncertified metal-free collection/transport tube. If contamination concerns exist due to elevated levels of serum/plasma zinc, confirmation with a second specimen collected in a certified metal-free tube is recommended. Circulating zinc concentrations are dependent on albumin status and are depressed with malnutrition. Zinc may also be lowered with infection, inflammation, stress, oral contraceptives, and . Zinc may be elevated with zinc supplementation or fasting. Elevated zinc concentrations may interfere with copper absorption. This test was developed and its performance characteristics determined by [facility]. It has not been cleared or approved by the US Food and Drug Administration. This test was performed in a CLIA certified laboratory and is intended for clinical purposes. Performed By: [facility] [address] [place] [address] Stock Parts Inspector: Zia Boggs MD, PhD CLIA Number: [id number] No Panel Informationon 07-12 [facility] 36on 07-10-2023 36 Signed, thanks [place] [address] See other tele encounter. [place] [address] Noted, thank you! [place] [address] Called and spoke wit h pt regarding labs. Pt states not sure [...] months. Orders pending. Please sign. Thank you! [place] [address] Pt called stating re sults of bloodwork shows high A1C; Would like a call to discuss [place] [address] I called Ms. Powell cici nd spoke with her. She wanted me to [...] questions/concerns. Kareem Hartmann MD 9:45 AM 07/10/2023 Normal [facility] 36 Started PA through CMM Normal [facility] Progress Noteon 07-10-2023 Progress Note Message regarding pr ior authorization reviewed. Recommendation is to substitute Trulicity for Mounjaro. Changes made and prescription sent to pharmacy. Normal [facility] 25-hydroxyvitamin D3 [Mass/V ol]on 07-09-2023 Interpretation and review of laboratory results Abnormal [facility] Therapy is based on measurement of Total 25-OHD with the following classification levels: Less than 20 ng/mL: Indicative of Vit D deficiency 20-30 ng/mL: Suggests Vit D insufficiency Optimal: Greater than or equal to 30 ng/mL Test performed by [employer] Competitive Immunoassay, measuring Total Vitamin D, not individual fractions. [facility] 36on 07-09-2023 36 Patient left stat ing she has a question for Dr. Hartmann and would like a call back. Normal [facility] 36 Pre-op_JZ 07/09/2023 Vitamin D: 20 (L) Magnesium: 2.5 (H) Vitamin B12: 333 (L end NL) MyChart message sent regarding labs. Normal [facility] CBC (HEMOGRAM)on 07-09-2023 Erythrocyte distribution width (RBC) [Ratio] 15.0 % High 11.5-14.5 [facility] Comment on above: Order Comment: These orders are set for an approximate date - they can be drawn up to 3 months prior to the Expected Date on this Req.Please send results to: [place] [address] - NoneAnd if not done at a [facility] Facility, please send to:[facility] [employer] - [address] [place] [address], [address] [facility], [address]Nmmcg: [phone] Jlzswvb Name: Giovana Powell - 1950[facility] [place] Created by : Monica Morris WALL COVERING CONTRACTOR Performed By: #### L [id number] ####Doctor Chiropractic: JULIET SCHILLING ([id number])[facility] ([facility])[address] [place] [address] ERYTHROCYTE MEAN CORPUSCULAR HEMOGLOBIN CONCENTRATION (G/DL) BY AUTOMATED 32.7 % Normal 32.0-36.0 [facility] Comment on above: Order Comment: These orders are set for an approximate date - they can be drawn up to 3 months prior to the Expected Date on this Req.Please send results to: LEOP[facility]DO SHEARER - [address] [facility] [address] - NoneAnd if not done at a [facility] Facility, please send to:[place] [address]Phone: Eoelikh Name: Giovana Powell 1950[facility] Created by : Monica Morris LPN Performed By: #### L [id number] ####Doctor Chiropractic: JULIET SCHILLING ([id number])[facility] ([facility])[address] [place] [address] Hematocrit (Bld) [Volume fraction] 43.7 % Normal 35.0-47.0 [facility] Comment on above: Order Comment: These orders are set for an approximate date - they can be drawn up to 3 months prior to the Expected Date on this Req.Please send results to: LE[facility]DO TREVINOANGELIE - [address] [facility] [address] - NoneAnd if not done at a [facility] Facility, please send to:[address], [address]Bahka: [phone] Enpgrkc Name: Giovana Powell 1950rosa elena Created by : Monica Morris WALL COVERING CONTRACTOR Performed By: #### L AB294 ####Doctor Chiropractic: JULIET SCHILLING ([id number])[facility] ([facility])[address] [place] [address] Hemoglobin (Bld) [Mass/Vol] 14.3 g/dL Normal 11.7-16.0 [facility] Comment on above: Order Comment: These orders are set for an approximate date - they can be drawn up to 3 months prior to the Expected Date on this Req.Please send results to: LEOPOLDO BAIRD [facility] [place] [address] - NoneAnd if not done at a [facility] Facility, please send to:[place] [address]Phone: Svblrhd Name: [facility] Powell [facility] Created by : Monica Morris LPN Performed By: #### L AB294 ####Doctor Chiropractic: JULIET SCHILLING ([id number])[facility] ([facility])[address] [place] [address] MCH (RBC) [Entitic mass] 31.4 pg Normal 26.0-34.0 [facility] Comment on above: Order Comment: These orders are set for an approximate date - they can be drawn up to 3 months prior to the Expected Date on this Req.Please send results to: [facility]DO BAIRD [place] [facility] [address] - NoneAnd if not done at a [facility] Facility, please send to:[place] [address]Phone: Gvowpjq Name: Giovana Powell [facility] Created by : Monica Morris LPN Performed By: #### L AB294 ####Doctor Chiropractic: JULIET SCHILLING ([id number])[facility] JAYA RITTMAN ([facility])[address] [place] [address] MCV (RBC) [Entitic vol] 95.8 fL Normal 80.0-98.0 [facility] Comment on above: Order Comment: These orders are set for an approximate date - they can be drawn up to 3 months prior to the Expected Date on this Req.Please send results to: LEOPOLDO BAIRD - [address] [facility] [address] - NoneAnd if not done at a [facility] Facility, please send to:[facility] - [address] [place] [address], [address], [address]Xsdhv: [phone] Rchwnlr Name: Giovana Welch [facility] Created by : Monica Morris LPN Performed By: #### L AB294 ####Doctor Chiropractic: JULIET SCHILLING ([id number])[facility] JAYA FRANKEL ([facility])[address] [place] [address] Platelet mean volume (Bld) [Entitic vol] 9.1 fL Normal 7.4-12.4 [facility] Comment on above: Order Comment: These orders are set for an approximate date - they can be drawn up to 3 months prior to the Expected Date on this Req.Please send results to: LEOPOLDO BAIRD - [place] [facility] [address] - NoneAnd if not done at a [facility] Facility, please send to:[address], [address], [address]Aewyn: [phone] Cqeokvm Name: Giovana Powell 1950rosa elena Created by : Monica Morris LPN Result Comment: LUIS Fletcher COMMENTS: White blood cell and platlet count reran/rechecked. Performed By: #### L AB294 ####Doctor Chiropractic: JULIET SCHILLING ([id number])[facility] CellroxHESHAMAN ([facility])[address] [place] [address] PLATELETS (10*3/UL) IN BLOOD AUTOMATED COUNT 499 10*3/uL High 140-440 [facility] Comment on above: Order Comment: These orders are set for an approximate date - they can be drawn up to 3 months prior to the Expected Date on this Req.Please send results to: LEOPOLDO BAIRD - [address] [facility] [address] - NoneAnd if not done at a [facility] Facility, please send to:[facility] - [address] [place] [address], [address]Cxeze: [phone] Gusfain Name: Giovana Powell angie Created by : Monica Morris LPN Performed By: #### L AB294 ####Doctor Chiropractic: JULIET SCHILLING ([id number])[facility] ([facility])[address] [place] [address] RBC (Bld) [#/Vol] 4.56 10*6/uL Normal 3.8-5.20 [facility] Comment on above: Order Comment: These orders are set for an approximate date - they can be drawn up to 3 months prior to the Expected Date on this Req.Please send results to: LEOPOLDO BAIRD - [address] [facility] [address] - NoneAnd if not done at a [facility] Facility, please send to:[address], [address]Wkfcn: [phone] Xfyzjqk Name: Giovana Powell 1950rd Created by : Monica Morris LPN Performed By: #### L AB294 ####Doctor Chiropractic: JULIET SCHILLING ([id number])[facility] RITTM[facility] ([facility])[address] [place] [address] [place] WBC (Bld) [#/Vol] 11.2 10*3/uL High 3.6-10.7 [facility] Comment on above: Order Comment: These orders are set for an approximate date - they can be drawn up to 3 months prior to the Expected Date on this Req.Please send results to: LEOPOLDO BAIRD - [address] [facility] [place] [address] - NoneAnd if not done at a [facility] Facility, please send to:[facility] [employer] - [address] [place] [address], [address] [facility], [address]Dsvis: [phone] Nozeowr Name: Giovana Powell - 2Order Created by : Monica Morris LPN Performed By: #### L [id number] ####Doctor Chiropractic: JULIET SCHILLING ([id number])[facility] ([facility])[address] [place] [address] CBC panel Auto (Bld)Ordered By: Halie Castellano on 07-09-2023 Erythrocyte distribution width (RBC) [Ratio] 15.0 % High 11.5 - 14.5 % [facility] Hematocrit (Bld) [Volume fraction] 43.7 % 35.0 - 47.0 % [facility] Hemoglobin (Bld) [Mass/Vol] 14.3 g/dL 11.7 - 16.0 g/dL [facility] Interpretation and review of laboratory results Abnormal [facility] MCH (RBC) [Entitic mass] 31.4 pg 26.0 - 34.[address] [facility] MCHC (RBC) [Mass/Vol] 32.7 % 32.0 - 36.0 % [facility] MCV (RBC) [Entitic vol] 95.8 fL 80.0 - 98.[address] [facility] Platelet mean volume (Bld) [Entitic vol] 9.1 fL 7.4 - 12.[address] [facility] Platelets (Bld) [#/Vol] 499 10*3/uL High 140 - 440 10*3/uL [facility] RBC (Bld) [#/Vol] 4.56 10*6/uL 3.8 - 5.20 10*6/uL [facility] WBC (Bld) [#/Vol] 11.2 10*3/uL High 3.6 - 10.7 10*3/uL [facility] White blood cell and platlet count reran/rechecked. [facility] COMPREHENSIVE METABOLIC PANE Brooks 07-09-2023 Albumin [Mass/Vol] 4.1 g/dL Normal 3.5-5.[address] [facility] Comment on above: Order Comment: These orders are set for an approximate date - they can be drawn up to 3 months prior to the Expected Date on this Req.Please send results to: LEOPOLDO [facility] [address] - NoneAnd if not done at a [facility] Facility, please send to:[address], [address]Ngcnd: [phone] Otdnvks Name: Giovana Powell [facility] Created by : Monica Morris LPN Performed By: #### L AB17, ZHS097, ZIS225, LAB18, LAB67, LAB69, LAB68 ####Doctor Chiropractic: UJLIET SCHILLING ([id number])[facility] ([facility])[address] [place] [address] ALP [Catalytic activity/Vol] 99 U/L Normal 38-126 [facility] Comment on above: Order Comment: These orders are set for an approximate date - they can be drawn up to 3 months prior to the Expected Date on this Req.Please send results to: [facility]OPOLDO Welch [address] [facility] [address] - NoneAnd if not done at a [facility] Facility, please send to:[address], [address]Eeics: [phone] Ghcubcv Name: Giovana Powell 1950[facility] [place] Created by : Monica Morris LPN Performed By: #### L AB17, [id number], MUS411, LAB18, LAB67, LAB69, LAB68 ####Doctor Chiropractic: JULIET SCHILLING ([phone])[facility] (SWRLAB)[address] [place] [address] ALT [Catalytic activity/Vol] 31 U/L Normal 0-34 [facility] Comment on above: Order Comment: These orders are set for an approximate date - they can be drawn up to 3 months prior to the Expected Date on this Req.Please send results to: LEOPOLDO Paula [facility] [address] - NoneAnd if not done at a [facility] Facility, please send to:[address], [address]Rstpg: [phone] Kbykrlj Name: Giovana Welch angie Created by : Monica Morris LPN Performed By: #### L AB17, ICX996, KDJ340, LAB18, LAB67, LAB69, LAB68 ####Doctor Chiropractic: JULIET SCHILLING ([phone])[facility] ([facility])[address] [place] [address] Anion gap [Moles/Vol] 4 mmol/L Normal 3-13 [facility] Comment on above: Order Comment: These orders are set for an approximate date - they can be drawn up to 3 months prior to the Expected Date on this Req.Please send results to: LEOPOLDO BAIRD - [address] [place] [address] - NoneAnd if not done at a [facility] Facility, please send to:[address], [address]Ijmnh: [phone] Upcikqz Name: [facility]ana Powell [facility] Created by : Monica Morris LPN Performed By: #### L AB17, HQC978, UHG588, LAB18, LAB67, LAB69, LAB68 ####Doctor Chiropractic: JULIET SCHILLING ([phone])[facility] [place] [address] AST [Catalytic activity/Vol] 26 U/L Normal 15-46 [facility] Comment on above: Order Comment: These orders are set for an approximate date - they can be drawn up to 3 months prior to the Expected Date on this Req.Please send results to: LEOPOLDO BAIRD - [address] [place] [address] - NoneAnd if not done at a [facility] Facility, please send to:[address], [address] [place], [address]Viwyn: [phone] Lqlzrzd Name: Giovana Welch angie Created by : Monica Morris LPN Performed By: #### L AB17, GYG319, RVI635, LAB18, LAB67, LAB69, LAB68 ####Doctor Chiropractic: JULIET SCHILLING ([phone])[facility])[address] [place] [address] Bilirubin [Mass/Vol] 0.3 mg/dL Normal 0.2-1.3 [facility] Comment on above: Order Comment: These orders are set for an approximate date - they can be drawn up to 3 months prior to the Expected Date on this Req.Please send results to: LEOPOLDO SHEARER [facility]R[address] [facility] [address] - NoneAnd if not done at a [facility] Facility, please send to:[address], [address]Nxkpp: [phone] Xxaswyu Name: Giovana Welch 1950angie Created by : Monica Morris LPN Performed By: #### L AB17, QNP917, WBC521, LAB18, LAB67, LAB69, LAB68 ####Doctor Chiropractic: JULIET SCHILLING ([phone])[facility] ([facility])[address] [place] [address] Calcium [Mass/Vol] 8.9 mg/dL Normal 8.4-10.4 [facility] Comment on above: Order Comment: These orders are set for an approximate date - they can be drawn up to 3 months prior to the Expected Date on this Req.Please send results to: VITALIYTragaraKADIE [facility]RE[facility]INOJ[facility] - [address] [facility] [address] - NoneAnd if not done at a [facility] Facility, please send to:[address], [address]Erlhg: [phone] Klzaufw Name: Giovana Welch 1950rder Created by : Monica Morris LPN Performed By: #### L AB17, OHI174, KQC934, LAB18, LAB67, LAB69, LAB68 ####Doctor Chiropractic: JULIET SCHILLING ([phone])[facility] (SWRLAB)[address] [place] [address] [place] Chloride [Moles/Vol] 104 mmol/L Normal 98-107 [facility] Comment on above: Order Comment: These orders are set for an approximate date - they can be drawn up to 3 months prior to the Expected Date on this Req.Please send results to: LEOPOLDO SHEARER - [address] [facility] [address] - NoneAnd if not done at a [facility] Facility, please send to:[address], [address]Xptzz: [phone] Klarcan Name: Giovana Welch 1950angie Created by : Monica Morris LPN Performed By: #### L AB17, FEZ235, SML802, LAB18, LAB67, LAB69, LAB68 ####Doctor Chiropractic: JULIET SCHILLING ([phone])[facility] (SWRLAB)[address] [place] [address] [place] CO2 [Moles/Vol] 31 mmol/L High 22-30 [facility] Comment on above: Order Comment: These orders are set for an approximate date - they can be drawn up to 3 months prior to the Expected Date on this Req.Please send results to: VITALIYCHONKADIE TREVINOJ[facility] - [address] [facility] [address] - NoneAnd if not done at a [facility] Facility, please send to:[facility] - [address] [place] [address], [address], [address]Xhqqv: [phone] Iehrubx Name: Giovana Welch 1950[place] elena Created by : Monica Morris LPN Performed By: #### L AB17, RON996, GOU292, LAB18, LAB67, LAB69, LAB68 ####Doctor Chiropractic: JULIET SCHILLING ([phone])[facility] (RLAB)[address] [place] [address] Creatinine [Mass/Vol] 0.93 mg/dL Normal 0.52-1.04 [facility] Comment on above: Order Comment: These orders are set for an approximate date - they can be drawn up to 3 months prior to the Expected Date on this Req.Please send results to: LEOPOLDO SHEARER - [address] [facility] [address] - NoneAnd if not done at a [facility] Facility, please send to:[facility] - [address] [place] [address], [address]Tpkxr: [phone] Lqhzrxc Name: Giovana Nunnhansel angie Created by : Monica Morris LPN Performed By: #### L AB17, ERF430, WVJ012, LAB18, LAB67, LAB69, LAB68 ####Doctor Chiropractic: JULIET SCHILLING ([phone])[facility])[address] [place] [address] GLOMERULAR FILTRATION RATE ML/MIN/1.73 SQ M.PREDICTED 66.3 mL/min/1.73m*2 Normal >60.0 [facility] Comment on above: Order Comment: These orders are set for an approximate date - they can be drawn up to 3 months prior to the Expected Date on this Req.Please send results to: LEOPOLDO TREVINOSERG - [address] [facility] [address] - NoneAnd if not done at a [facility] Facility, please send to:[address], [address]Yrbla: [phone] Nehkfit Name: Giovana Nunnhansel angie Created by : Monica Morris LPN Result Comment: Calc ulation based on the Chronic Kidney Disease Epidemiology Collaboration (CKD-EPI) equation refit without adjustment for race Performed By: #### L AB17, VZZ790, RJR690, LAB18, LAB67, LAB69, LAB68 ####Doctor Chiropractic: JULIET SCHILLING ([id number])[facility] ([facility])[address] [place] [address] Glucose [Mass/Vol] 98 mg/dL Normal 70-100 [facility] Comment on above: Order Comment: These orders are set for an approximate date - they can be drawn up to 3 months prior to the Expected Date on this Req.Please send results to: VITALIYCHONKADIE TREVINOJAMES [facility] - [address] [facility] [address] - NoneAnd if not done at a [facility] Facility, please send to:[address], [address]Wwrwm: [phone] Maayqda Name: [facility]ana [facility] Created by : Monica Morris LPN Performed By: #### L AB17, QSV211, SJV305, LAB18, LAB67, LAB69, LAB68 ####Doctor Chiropractic: JULIET SCHILLING ([phone])[facility] ([facility])[address] [place] [address] Potassium [Moles/Vol] 4.8 mmol/L Normal 3.5-5.1 [facility] Comment on above: Order Comment: These orders are set for an approximate date - they can be drawn up to 3 months prior to the Expected Date on this Req.Please send results to: AYLINKADIE TREVINOANGELIE - [address] [facility] [address] - NoneAnd if not done at a [facility] Facility, please send to:[address], [address]Btteq: [phone] Pdbigyp Name: Giovana [facility] Created by : Monica Morris LPN Performed By: #### L AB17, ZCA837, BLU873, LAB18, LAB67, LAB69, LAB68 ####Doctor Chiropractic: JULIET SCHILLING ([phone])[facility] ([facility])[address] [place] [address] Protein [Mass/Vol] 7.2 g/dL Normal 6.3-8.2 [facility] Comment on above: Order Comment: These orders are set for an approximate date - they can be drawn up to 3 months prior to the Expected Date on this Req.Please send results to: LEOPOLDO BAIRD - [address] [facility] [place] [address] - NoneAnd if not done at a [facility] Facility, please send to:[place] [id number]: Wyhyxyb Name: Giovana Powell [facility] Created by : Monica Morris LPN Performed By: #### L AB17, SES714, MNZ934, LAB18, LAB67, LAB69, LAB68 ####Doctor Chiropractic: JULIET SCHILLING ([phone])[facility] ([facility])[address] [place] [address] Sodium [Moles/Vol] 138 mmol/L Normal 135-145 [facility] Comment on above: Order Comment: These orders are set for an approximate date - they can be drawn up to 3 months prior to the Expected Date on this Req.Please send results to: LEOPOLDO BAIRD [address] [facility] [place] [address] - NoneAnd if not done at a [facility] Facility, please send to:[address], [address], [address]Tgjby: [phone] Hjdvrvu Name: Giovana Powell [facility] el[facility] Created by : Monica Morris LPN Performed By: #### L AB17, PNV256, MLO073, LAB18, LAB67, LAB69, LAB68 ####Doctor Chiropractic: JULIET SCHILLING ([phone])[facility] (SWRLAB)[address] Urea nitrogen [Mass/Vol] 17 mg/dL Normal 7-17 [facility] Comment on above: Order Comment: These orders are set for an approximate date - they can be drawn up to 3 months prior to the Expected Date on this Req.Please send results to: LEOPOLDO BAIRD [address] [place] [address] - NoneAnd if not done at a [facility] Facility, please send to:[facility] [address], [address] - [facility], [address]Zoher: [phone] Lhliwbf Name: Giovana Powell - 2Order Created by : Monica Morris LPN Performed By: #### L AB17, NGE121, NVS136, LAB18, LAB67, LAB69, LAB68 ####Doctor Chiropractic: JULIET SCHILLING ([id number])[facility] (SWRLAB)[address] Comprehensive metabolic 1998 panelon 07-09-2023 Albumin [Mass/Vol] 4.1 g/dL 3.5 - 5.0 g/dL [facility] ALP [Catalytic activity/Vol] 99 U/L 38 - 126 U/L [facility] ALT [Catalytic activity/Vol] 31 U/L 0 - 34 U/L [facility] Anion gap [Moles/Vol] 4 mmol/L 3 - 13 mmol/L [facility] AST [Catalytic activity/Vol] 26 U/L 15 - 46 U/L [facility] Bilirubin [Mass/Vol] 0.3 mg/dL 0.2 - 1.3 mg/dL [facility] Calcium [Mass/Vol] 8.9 mg/dL 8.4 - 10. 4 mg/dL [facility] Chloride [Moles/Vol] 104 mmol/L 98 - 107 mmol/L [facility] CO2 [Moles/Vol] 31 mmol/L High 22 - 30 mmol/L [facility] Creatinine [Mass/Vol] 0.93 mg/dL 0.52 - 1.04 mg/dL [facility] GFR/1.73 sq M.predicted MDRD (S/P/Bld) [Vol rate/Area] 66.3 mL/min/{1.73_m2} - PINF [facility] Comment on above: Calculation based on the Chronic Kidney Disease Epidemiology Collaboration (CKD-EPI) equation refit without adjustment for race Glucose [Mass/Vol] 98 mg/dL 70 - 100 mg/dL [facility] Potassium [Moles/Vol] 4.8 mmol/L 3.5 - 5.1 mmol/L [facility] Protein [Mass/Vol] 7.2 g/dL 6.3 - 8.2 g/dL [facility] Sodium [Moles/Vol] 138 mmol/L 135 - 145 mmol/L [facility] Urea nitrogen [Mass/Vol] 17 mg/dL 7 - 17 mg/dL [facility] FERRITINon 07-09-2023 Ferritin [Mass/Vol] 50 ng/mL Normal 11-264 [facility] Comment on above: Order Comment: These orders are set for an approximate date - they can be drawn up to 3 months prior to the Expected Date on this Req.Please send results to: LEOPOLDO BAIRD - [employer] [facility] [address] - NoneAnd if not done at a [facility] Facility, please send to:[address], [address] [facility], [address]Eqirb: [phone] Nobipnr Name: Giovana Powell - [facility] [place] Created by : Monica Morris LPN Performed By: #### L AB17, HCZ009, NIY126, LAB18, LAB67, LAB69, LAB68 ####Doctor Chiropractic: JULIET SCHILLING ([phone])[facility] (SWRLAB)[address] [place] [address] FOLATEon 07-09-2023 FOLATE >20.0 Normal >=2.9 [facility] Comment on above: Order Comment: These orders are set for an approximate date - they can be drawn up to 3 months prior to the Expected Date on this Req.Please send results to: LEOPOLDO BAIRD [employer] [address] [facility] [address] - NoneAnd if not done at a [facility] Facility, please send to:[address], [address]Pzetr: [phone] Waubmir Name: Giovana Welch angie Created by : Monica Morris LPN Performed By: #### L AB17, JIL933, OWB085, LAB18, LAB67, LAB69, LAB68 ####Doctor Chiropractic: JULIET SCHILLING ([phone])[facility] ([facility])[address] [place] [address] HEMOGLOBIN A1Con 07-09-2023 Glucose [Mass/Vol] 131 mg/dL Normal [facility] Comment on above: Order Comment: These orders are set for an approximate date - they can be drawn up to 3 months prior to the Expected Date on this Req.Please send results to: LEOPOLDO BAIRD - [address] [facility] [address] - NoneAnd if not done at a [facility] Facility, please send to:[address], [address]Gvqel: [phone] Biegdrp Name: Giovana Powell 2[place]rosa elena Created by : Monica Morris LPN Performed By: #### L AB90 ####Doctor Chiropractic: JULIET SCHILLING ([phone])[facility] CellroxAN (SWRLAB)[address] [place] [address] HbA1c (Bld) [Mass fraction] 6.2 % High <5.7 [facility] Comment on above: Order Comment: These orders are set for an approximate date - they can be drawn up to 3 months prior to the Expected Date on this Req.Please send results to: LEOPOLDO BAIRD - [address] [place] [address] - NoneAnd if not done at a [facility] Facility, please send to:[address], [address], [address]Nonwk: [phone] Vptnvpu Name: Giovana Welch angie Created by : Monica Morris LPN Result Comment: Norm al less than 5.7% Prediabetes 5.7% to 6.4% Diabetes 6.5% or higher --HgbA1C levels may not be accurate in patients who have renal disease, received recent blood transfusions, are anemic, or who have dyshemoglobinemia. Performed By: #### L AB90 ####Doctor Chiropractic: JULIET SCHILLING ([phone])[facility] CellroxAN (SWRLAB)[address] [place] [address] IRONon 07-09-2023 IRON, TOTAL 48 ug/dL Normal 37-170 [facility] Comment on above: Order Comment: These orders are set for an approximate date - they can be drawn up to 3 months prior to the Expected Date on this Req.Please send results to: [place] [place] [address] - NoneAnd if not done at a [facility] Facility, please send to:[address], [address] [place] [address]Phone: Jxkpnbf Name: Giovana Powell [facility] Created by : Monica Morris LPN Performed By: #### L AB94 ####Doctor Chiropractic: JULIET SCHILLING ([id number])[facility] PiqqualAN (SWRLAB)[address] [place] [address] [employer] ty panelon 07-09-2023 Interpretation and review of laboratory results Normal [facility] Iron [Mass/Vol] 48 ug/dL 37 - 170 ug/dL [facility] LIPID PANELon 07-09-2023 Cholesterol [Mass/Vol] 115 mg/dL Normal <200 [facility] Comment on above: Order Comment: These orders are set for an approximate date - they can be drawn up to 3 months prior to the Expected Date on this Req.Please send results to: [address] [place] [address] - NoneAnd if not done at a [facility] Facility, please send to:[address], [address]Jslnl: [phone] Vdybirw Name: Giovana Powell angie Created by : Monica Morris [employer] Performed By: #### L AB17, [id number], WHM559, LAB18, LAB67, LAB69, LAB68 ####Doctor Chiropractic: JULIET SCHILLING ([phone])[facility] ([facility])[address] [place] [address] [place] Cholesterol in HDL [Mass/Vol] 35 mg/dL Low 40-60 [facility] Comment on above: Order Comment: These orders are set for an approximate date - they can be drawn up to 3 months prior to the Expected Date on this Req.Please send results to: LEOPOLDO BAIRD - [address] [place] [address] - NoneAnd if not done at a [facility] Facility, please send to:[address], [address]Arvrh: [phone] Zdmqhkg Name: Giovana Powell [facility] Created by : Monica Morris [employer] Performed By: #### L AB17, NTO679, CPR364, LAB18, LAB67, LAB69, LAB68 ####Doctor Chiropractic: JULIET SCHILLING ([phone])[facility] CellroxAN (RLAB)[address] [place] [address] Cholesterol.total/ Cholesterol in HDL [Mass ratio] 3 {ratio} Normal [facility] Comment on above: Order Comment: These orders are set for an approximate date - they can be drawn up to 3 months prior to the Expected Date on this Req.Please send results to: LEOPOLDO SHEARERToni - [address] [place] [address] - NoneAnd if not done at a [facility] Facility, please send to:[facility] - [address], [address]Kmbzd: [phone] Hlfoojz Name: Giovana Welch angie Created by : Monica Morris LPN Result Comment: Ref Range: < 3 Low Risk for CHD 3-6 Mod Risk for CHD > 6 High Risk for CHD Performed By: #### L AB17, RAH968, UTM033, LAB18, LAB67, LAB69, LAB68 ####Doctor Chiropractic: JULIET SCHILLING ([phone])[facility] ([facility])[address] [place] [address] LOW DENSITY LIPOPROTEIN 56 mg/dL Normal 0-<100 [facility] Comment on above: Order Comment: These orders are set for an approximate date - they can be drawn up to 3 months prior to the Expected Date on this Req.Please send results to: LEOPOLDO SHEARER - [address] [facility] [address] - NoneAnd if not done at a [facility], please send to:[place] [id number]: Abfjlwl Name: Giovana Powell angie Created by : Monica Morris LPN Performed By: #### L AB17, YZI270, TDP509, LAB18, LAB67, LAB69, LAB68 ####Doctor Chiropractic: JULIET SCHILLING ([id number])[facility] (SWRLAB)[address] [place] [address] Triglyceride [Mass/Vol] 120 mg/dL Normal <150 [facility] Comment on above: Order Comment: These orders are set for an approximate date - they can be drawn up to 3 months prior to the Expected Date on this Req.Please send results to: Bit[employer]MIRTACATHY [employer] - [address] [place] [address] - NoneAnd if not done at a [facility] Facility, please send to:[address], [address]Temkn: [phone] Woetonx Name: Giovnaa Powell - 2Order Created by : Monica Morris LPN Performed By: #### L AB17, QBO797, QPR175, LAB18, LAB67, LAB69, LAB68 ####Doctor Chiropractic: JULIET SCHILLING ([id number])[facility] (SWRLAB)[address] [place] [address] Laboratory - Chemistry and C hemistry - challengeon 07-09-2023 25-hydroxyvitamin D3 [Mass/Vol] 20 ng/mL Low 30 - 100 ng/mL [facility] 10-20 Media Cobalamin (Vitamin B12) [Mass/Vol] 333 pg/mL 239 - 931 pg/mL [facility] Folate [Mass/Vol] ng/mL 2.9 - PINF ng/mL [facility] 10-20 Media Average glucose Estimated from glycated hemoglobin (Bld) [Mass/Vol] 131 mg/dL [facility] 10-20 Media Ferritin [Mass/Vol] 50 ng/mL 11 - 264 ng/mL [facility] 10-20 Media TSH Qn 0.637 m[IU]/[facility] [Mass/Vol] 2.5 mg/dL High 1.6 - 2.3 mg/dL [facility] Laboratory - Hematology and Cell countson 07-09-2023 HbA1c (Bld) [Mass fraction] 6.2 % High [facility] 5.[facility] % [facility] Comment on above: Normal less than 5.7 % Prediabetes 5.7% to 6.4% Diabetes 6.5% or higher --HgbA1C levels may not be accurate in patients who have renal disease, received recent blood transfusions, are anemic, or who have dyshemoglobinemia. Lipid 1996 panelon 3 Cholesterol [Mass/Vol] 115 mg/dL NINF - 200 mg/dL [facility] 10-20 Media Cholesterol in HDL [Mass/Vol] 35 mg/dL Low 40 - 60 mg/dL [facility] Cholesterol in LDL [Mass/Vol] 56 mg/dL 0 - <[address] [facility] Cholesterol.total/ Cholesterol in HDL [Mass ratio] 3 {ratio} [facility] Comment on above: Ref Range: < 3 Low Risk for CHD 3-6 Mod Risk for CHD > 6 High Risk for CHD Triglyceride [Mass/Vol] 120 mg/dL NINF - 150 mg/dL [facility] MAGNESIUMon 07-09-2023 Magnesium [Mass/Vol] 2.5 mg/dL High 1.6-2.3 [facility] Comment on above: Order Comment: These orders are set for an approximate date - they can be drawn up to 3 months prior to the Expected Date on this Req.Please send results to: LEOPOLDO BAIRD [address] [facility] [address] - NoneAnd if not done at a [facility] Facility, please send to:[facility] [employer] - [address] [place] [address], [address] - [facility], [address]Gughz: [phone] Xfoqupm Name: Giovana Powell - 2Order Created by : Monica Morris LPN Performed By: #### L AB17, USX744, VMB876, LAB18, LAB67, LAB69, LAB68 ####Doctor Chiropractic: JULIET SCHILLING ([phone])[facility] (SWLAB)[address] [place] [address] No Panel Informationon 07-09 Interpretation and review of laboratory results Normal [facility] Interpretation and review of laboratory results Abnormal [facility] Interpretation and review of laboratory results Normal [facility] Interpretation and review of laboratory results Abnormal [facility] Office Visiton 07-09-2023 Follow-up visit [id number] Giovana Powell 1950 F Date Provider Department Center 07/09/2023 [id number] RESENDIZ [facility] None Family History Problem Relation Age of Onset Cancer Sister Obesity Sister Diabetes Brother Hypertension Brother Obesity Brother Obesity Maternal Grandfather Obesity Maternal Grandmother Family Status - Relation Status Age at Sister Alive Brother Alive Maternal Grandfather Alive Maternal Grandmother Alive Level of Service:47412 MO OFFICE/OUTPATIENT ESTABLISHED MOD MDM 30-39 MIN Reason for Visit and Comments: Weight Loss [761791] - D/E / Normal [facility] Progress Noteon 07-09-2023 Progress Note [facility] - SURGICAL WEIGHT LOSS MANAGEMENT PROGRAM PHYSICIAN [...] lb 3.2 oz (103 kg) BMI 44.18 kg/m? Awake, alert, and oriented, no apparent distress. [...] surgeries: cholecystectomy, hysterectomy -Anti-obesity medications are termite inspector medications. Weight gain will likely result when [...] follow up with her sleep specialist in [place], she also requires pulmonology clearance prior to [...] to continue monthly visits until authorization/surgery date (more content not included)... Normal [facility] THYROID STIMULATING HORMONEo n 07-09-2023 THYROID STIMULATING HORMONE 0.637 uIU/mL Normal 0.465-4.680 [facility] Comment on above: Order Comment: These orders are set for an approximate date - they can be drawn up to 3 months prior to the Expected Date on this Req.Please send results to: LEOPOLDO BAIRD - [address] [facility] [address] - NoneAnd if not done at a [facility] Facility, please send to:[facility] - [address] [place] [address], [address]Zhobw: [phone] Dhplrid Name: Giovana Powell angie Created by : Monica Morris LPN Performed By: #### L AB17, [id number], [id number], LAB18, LAB67, LAB69, LAB68 ####Doctor Chiropractic: JULIET SCHILLING ([id number])[facility] ([address] VITAMIN B1, WHOLE BLOODon VITAMIN B1,WHOLE BLOOD 171 nmol/L Normal 70-180 [facility] Comment on above: Order Comment: These orders are set for an approximate date - they can be drawn up to 3 months prior to the Expected Date on this Req.Please send results to: LEOPOLDO BAIRD - [address] [facility] [address] - NoneAnd if not done at a [facility] Facility, please send to:[facility] - [address] [place] [address], [address]Guhai: [phone] Owxansb Name: Giovana Powell 2[facility] [place] Created by : Monica Morris LPN Result Comment: INTE RPRETIVE INFORMATION: Vitamin B1, Whole Blood This assay measures the concentration of thiamine diphosphate (TDP), the primary active form of vitamin B1. Approximately 90 percent of vitamin B1 present in whole blood is TDP. Thiamine and thiamine monophosphate, which comprise the remaining 10 percent, are not measured. This test was developed and its performance characteristics determined by [facility]. It has not been cleared or approved by the US Food and Drug Administration. This test was performed in a CLIA certified laboratory and is intended for clinical purposes. Performed By: [facility] [address] [place] [address] Stock Parts Inspector: Zia Boggs MD, PhD CLIA Number: [id number] Performed By: #### L [id number] ####[facility] ([facility])[address] [id number] [facility] VITAMIN B12on 07-09-2023 Cobalamin (Vitamin B12) [Mass/Vol] 333 pg/mL Normal 239-931 [facility] Comment on above: Order Comment: These orders are set for an approximate date - they can be drawn up to 3 months prior to the Expected Date on this Req.Please send results to: LEOPOLDO BAIRD - [address] [facility] [address] - NoneAnd if not done at a [facility] Facility, please send to:[facility] - [address] [place] [address], [address]Vdkfx: [phone] Rgiposx Name: Giovanaleigh Powell [facility] elena Created by : Monica Morris LPN Performed By: #### L AB17, [id number], MFU611, LAB18, LAB67, LAB69, LAB68 ####Doctor Chiropractic: JULIET SCHILLING ([id number])[facility] ([address] VITAMIN D DEFICIENCY SCREENI NG (VIT D 25)on 07-09-2023 VIT D 25-OH, TOTAL 20 ng/mL Low 30-100 [facility] Comment on above: Order Comment: These orders are set for an approximate date - they can be drawn up to 3 months prior to the Expected Date on this Req.Please send results to: LEOPOLDO SHEARER[address] [facility] [address] - NoneAnd if not done at a [facility] Facility, please send to:[facility] - [address] [place] [address], [address]Wwlok: [phone] Ouzpbfh Name: Giovana Nunnhansel 2Orosa elena Created by : Monica Morris LPN Result Comment: LUIS Fletcher COMMENTS: Therapy is based on measurement of Total 25-OHD with the following classification levels: Less than 20 ng/mL: Indicative of Vit D deficiency 20-30 ng/mL: Suggests Vit D insufficiency Optimal: Greater than or equal to 30 ng/mL Test performed by Linkpass Competitive Immunoassay, measuring Total Vitamin D, not individual fractions. Performed By: #### L AB535 ####Doctor Chiropractic: VANESSA GUEVARA ([id number])[facility] ([facility])[address] [place] [id number] [place] [address] ZINCon 07-09-2023 ZINC, SERUM 108.0 ug/dL Normal 60.0-120.0 [facility] Comment on above: Order Comment: These orders are set for an approximate date - they can be drawn up to 3 months prior to the Expected Date on this Req.Please send results to: LEOPOLDO BAIRD [facility] [place] [address] - NoneAnd if not done at a [facility] Facility, please send to:[facility] - [address] [place] [address], [address] [facility], [address]Jccbw: [phone] Ffyzqoh Name: Giovana Powell - 2Order Created by : Monica Morris LPN Result Comment: INTE RPRETIVE INFORMATION: Zinc, Serum or Plasma Elevated results may be due to skin or collection-related contamination, including the use of a noncertified metal-free collection/transport tube. If contamination concerns exist due to elevated levels of serum/plasma zinc, confirmation with a second specimen collected in a certified metal-free tube is recommended. Circulating zinc concentrations are dependent on albumin status and are depressed with malnutrition. Zinc may also be lowered with infection, inflammation, stress, oral contraceptives, and . Zinc may be elevated with zinc supplementation or fasting. Elevated zinc concentrations may interfere with copper absorption. This test was developed and its performance characteristics determined by [facility]. It has not been cleared or approved by the US Food and Drug Administration. This test was performed in a CLIA certified laboratory and is intended for clinical purposes. Performed By: [facility] [address] [place] [address] Stock Parts Inspector: Zia Boggs MD, PhD CLIA Number: [id number] Performed By: #### L AB581 ####[facility] ([facility])[address] [place] [address] [facility] 36on 06-29-2023 36 LVM for pt to discus s weight loss medications with Dr. Hartmann on 07-09 @9:45 am [facility] 36 Patients prescriptio n for Wegovy is not covered by insurance, my chert message sent to patient and Dr Mesa advised. Normal [facility] Office Visiton 06-25-2023 Follow-up visit [id number] Giovana Powell 1950 F Date Provider Department Center 06/25/2023 KENZIE GELLER [facility] P[facility] None Family History Problem Relation Age of Onset Cancer Sister Obesity Sister Diabetes Brother Hypertension Brother Obesity Brother Obesity Maternal Grandfather Obesity Maternal Grandmother Family Status - Relation Status Age at Sister Alive Brother Alive Maternal Grandfather Alive Maternal Grandmother Alive Level of Service:65656 MO OFFICE/OUTPATIENT NEW MODERATE MDM 45-59 MINUTES Reason for Visit and Comments: New Patient [542] [facility] PATINSon 06-25-2023 PATINS YOUR APPOINTMENT TOHari MARTÍN WAS WITH THE [facility], COPD CLINIC, PULMONARY AND SLEEP MEDICINE OFFICE. PLEASE CALL OUR OFFICE AT [phone] IF YOU HAVE NOT RECEIVED YOUR TEST [...] to make improvements. COVID-19 VACCINATION INFORMATION: PH. [phone] HEALTH[facility]ORG/CORONAVIRUS/VACCI NE [facility] Central Scheduling [phone] [facility] Sleep Scheduling [phone] [facility] 36on 06-17-2023 36 LVM that PA started in CMM for Wegovy Normal [facility] Office Visiton 06-17-2023 Follow-up visit [id number] Giovana Powell 1950 F Date Provider Department Center 06/17/2023 [id number] MESA [facility] MED None Family History Problem Relation Age of Onset Cancer Sister Obesity Sister Diabetes Brother Hypertension Brother Obesity Brother Obesity Maternal Grandfather Obesity Maternal Grandmother Family Status - Relation Status Age at Sister Alive Brother Alive Maternal Grandfather Alive Maternal Grandmother Alive Level of Service:26066 MO OFFICE/OUTPATIENT ESTABLISHED LOW MDM 20-29 MIN Reason for Visit and Comments: Weight Loss [692349] - D/E 2 of 6 [facility] Progress Noteon 06-17-2023 Progress Note HPI, PHYSICAL EXAM, AND PLAN Patient is [...] Wt 223 lb (101 kg) BMI 43.55 kg/m? General: This patient is alert and oriented X3 General: This patient is awake, alert, and oriented, and is in no apparent distress. Extremities: No cyanosis, clubbing or edema/ No calf tenderness/ restrictions of movement, is ambulatory with assistance. Neurological: Intact x 4 extremities, no focal deficits notes. Skin: No rashes or lesions noted. Assessment of Current Diet and Exercise Current Diet This patient?s current diet is: 80% meal plan, pureed [...] Ambivalent about surgery Considering non surgical approach Weseveroy trial per pt request Advised patient that [...] was performed.Clinical documentation is updated and completed. [facility] Progress Noteon 06-08-2023 Progress Note [facility] BARIATRIC NUTRITION ASSESSMENT / [...] all meals Bariatric Nutrition Assessment completed by: Douglas Mason RD [facility] 3605-20-2023 36 LVM to call to r/s a ppt with Dr Paul in [place] on 06/24 [facility] 36on 05-15-2023 36 Orders mailed- with pain management clearance and neurology clearance form [facility] Office Visiton 05-14-2023 Follow-up visit [id number] Giovana Powell 1950 F Date Provider Department Center 05/14/2023 [id number] RESENDIZ [facility] None Family History Problem Relation Age of Onset Cancer Sister Obesity Sister Diabetes Brother Hypertension Brother Obesity Brother Obesity Maternal Grandfather Obesity Maternal Grandmother Family Status - Relation Status Age at Sister Alive Brother Alive Maternal Grandfather Alive Maternal Grandmother Alive Level of Service:31918 MO OFFICE/OUTPATIENT NEW MODERATE MDM 45-59 MINUTES Reason for Visit and Comments: Weight Loss [126229] - NEW D/E 1 of 6 Normal [facility] Progress Noteon 05-14-2023 Progress Note BARIATRIC CARE [facility] Fletcher SURGICAL WEIGHT LOSS MANAGEMENT PROGRAM PHYSICIAN SUPERVISED [...] BMI of Body mass index is 43.63 kg/m?. kg/m2. They have been overweight for years, [...] Dr. Newell/ Vickie general CHOLECYSTECTOMY 2019 laparoscopic -[place] HYSTERECTOMY [facility] Family History Problem Relation Name Age [...] Medications No medications on file Discontinued Medications [facility] [id number] UNIT/GM POWDER This patient's excess weight is causing the following co-morbid conditions at this time:GERD, Fatty Liver Disease, High Cholesterol, HTN, JENNIFER with or without CPAP, and Other pre-diabetes Initial Diet & Exercise/SPR Visit Weight Metrics: Date of Initial Diet & Exercise Visit: Consult Date: 05/14/23 Initial Weight: Initial Weight: 223 lb 6.4 oz (101 kg) Initial BMI: Initial BMI: 43.63 Sapello Body Weight: Sapello Body Weight: 120 lb (54.4 kg) Excess Body Weight: EBW: 103 lb Physical Examination: BP (!) 153/90 Pulse 81 Ht 5' (1.524 m) Wt 223 lb 6.4 oz (101 kg) BMI 43.63 kg/m? General: Alert and oriented x 4, obese, no distress. normocephalic and atraumatic Cardiac: Regular rate and rhythm without evidence of murmur Respiratory: Clear to auscultation bilaterally; No evidence of respiratory distress Musculoskeletal: No edema of extremities, ambulatory without assistance Neurological: Intact x 4 extremities, nonfocal neurologic exam, no focal deficits notes. Current Diet This patient?s current diet: Bread and carrizales at night Sweetened coffee Reviewed PAST DIET HISTORY FORM and CURRENT DIET HISTORY FORM with patient (located in [employer]) I reviewed all of the patient's medications and diagnoses listed in Epic. Comfort foods include:salty foods Current Activity Walks with walker Current Eating Behaviors This patients demonstrates the following behaviors as they relate to eating:eats at night Eats approximat (more content not included)... [facility] Progress Note BARIATRIC CARE [facility] Fletcher SURGICAL WEIGHT LOSS MANAGEMENT PROGRAM SUPERVISED DIET [...] Weight: 223 lb 6.4 oz (101 kg) Sapello Body Weight: 120 lb (54.4 kg) Initial [...] home O2 Completed by: Juanita Daigle MA [facility] 36on 05-13-2023 36 Signed and printed o rders Neuro clearance will be needed once we know name of provider- she has appt in May Psych clearance will defer to our psychologists to obtain records from Dr. Ga [facility] ADDENDUMNOTEon 05-13-2023 ADDENDUMNOTE Addended by: BRETT BERNAL on: 05/13/2023 09:07 AM Modules accepted: Orders [facility] 36on 05-11-2023 36 Orders pended, Pre o p check list scanned to media. EGD order sent to [facility]. [facility] ADDENDUMNOTEon 05-11-2023 ADDENDUMNOTE Addended by: Jerrell MORRIS on: 05/11/2023 08:06 AM Modules accepted: Orders [facility] Progress Noteon 05-11-2023 Progress Note EGD W BIOPSY schedul ed Date: 06/16 Time: 9 Place: [address] [place] [address] Patient notified via phone and MAIL [facility] Progress Note ENDOSCOPY ORDERS To be scheduled with: Dr. Ledezma Patient is: Pre-op/Pre-Bariatric Surgery CPT code: EGD with biopsy- CPT 53635 Diagnosis: Dyspepsia- K30 If pre-op, Diet & Exercise Requirements are, and started/scheduled on 05/14/2023: 6 months Home O2: No Known Difficult Intubation: No [facility] Progress Note Authorization for Te sting Initiated. Company Name & Number Contacted for Auth: [employer] Name of Ham Facer: ONLINE PORTAL Name of Procedure: EGD WITH BIOPSY Cpt Code: 32423 Diagnosis Code: K30 Location of Procedure: [facility] Is Auth Required: NO Call Reference #: NA Pending Case #: NA Clinical Reviewer: NA Additional Info if given: NA Approved Case reference: NA Date Range for Approved Auth: NA [facility] Progress Note printed [facility] 36on 04-30-2023 36 Incoming call from Zac from Dr Baird's office called and states pt is current with office and provided fax number of [phone]. OV notes faxed to PCP office via right fax with confirmation obtained. [facility] 36 Call to PCP office a nd left message to confirm that pt is active with office and obtain fax number. Number for this nurse left for call back. [facility] 36 ----- Message from Cheri Ledezma MD sent at 04/30/2023 1:05 PM EDT ----- Please print my office visit note today and fax to PCP, Dr. Baird [facility] Office Visiton 04-30-2023 Follow-up visit [id number] Giovana Powell 1950 F Date Provider Department Center 04/30/2023 [id number] LEDEZMA [facility] BCC SURG None Family History Problem Relation Age of Onset Cancer Sister Obesity Sister Diabetes Brother Hypertension Brother Obesity Brother Obesity Maternal Grandfather Obesity Maternal Grandmother Family Status - Relation Status Age at Sister Alive Brother Alive Maternal Grandfather Alive Maternal Grandmother Alive Level of Service:32723 MO OFFICE/OUTPATIENT NEW MODERATE MDM 45-59 MINUTES Reason for Visit and Comments: Surgical Consult [878] - New Surg [facility] Progress Noteon 04-30-2023 Progress Note [facility] SURGICAL PROGRAM INITIAL EVALUATION Patient: Giovana Powell Date of : 1950 Service Date: 04/30/23 Patient History: The patient is a pleasant 72 y.o. year old female with morbid obesity, who stands Height: 5' (152.4 cm) tall with a weight of Weight: 218 lb 12.8 oz (99.2 kg) , resulting in a BMI of Body mass index is 42.73 kg/m?.. She is interested in discussing weight loss [...] (HCC) [place] Co-Morbidity Assessment Co-Morbidity Initial Evaluation Today?s Visit Type 2 DM no HTN yes [...] Vickie general CHOLECYSTECTOMY 2019 laparoscopic -[place] HYSTERECTOMY [facility] Social History: This patient is unaccompanied [...] Examination: BP 121/81 Pulse 75 Temp 36.5 ?C (97.7 ?F) Resp 18 Ht 5' (1.524 m) Wt 218 lb 12.8 oz (99.2 kg) BMI 42.73 kg/m? General: This patient is awake, alert, and [...] 12-18 months after weight loss surgery. I adv (more content not included)... [place] [facility] Progress Note BARIATRIC CARE [facility] SURGICAL WEIGHT LOSS MANAGEMENT PROGRAM Rooming Note [...] home O2 Completed by: Sonali Paez MA [facility] Progress Note see TE created Normal [facility] Basophil percentageon 2021 Basophil percentage 0 SEEN /hpf 0-5 [facility] Work Phone: Chloride [Moles/Vol] 97 mmol/L 98-107 [facility] Work Phone: Glucose [Mass/Vol] 99 mg/dL 74-106 [facility] Work Phone: Potassium [Moles/Vol] 5.7 mmol/L 3.5-5.1 [facility] Work Phone: Sodium [Moles/Vol] 133 mmol/L 136-145 [facility] Work Phone: Bilirubin Test strip Ql (U)o n 09-30-2022 Bilirubin Ql (U) Negative Negative [facility] Work Phone: Ketones Test strip Ql (U)on 09-30-2022 Ketones Ql (U) Negative Negative [facility] Work Phone: Laboratory - Chemistry and C hemistry - challengeon 09-30-2022 CO2 [Moles/Vol] 29.0 mmol/L 21.0-32.0 [facility] Work Phone: Urea nitrogen/Creatinin e [Mass ratio] 18.1 mg/mg 10-20 [facility] Work Phone: Bilirubin Ql (U) Negative [facility] Work Phone: Glucose Ql (U) Negative [facility] Work Phone: Ketones Ql (U) Negative [facility] Work Phone: pH (U) 5.0 [pH] [facility] Work Phone: Specific gravity (U) [Rel density] 1.015 [facility] Work Phone: Urobilinogen (U) [Mass/Vol] Negative [facility] Work Phone: Laboratory - Hematology and Cell countson 09-30-2022 Hemoglobin Ql (U) Moderate [facility] Work Phone: Laboratory - Specimen inform ationon 09-30-2022 Clarity (U) Clear [facility] Work Phone: Color (U) Yellow [facility] Work Phone: Laboratory - Urinalysison Nitrite Ql (U) Negative [facility] Work Phone: [phone] Protein Ql (U) Negative [facility] Work Phone: Mucus LM Ql (Urine sed)on Mucus Ql (Urine sed) 0 SEEN /hpf [facility] Work Phone: Nitrite Test strip Ql (U)on 09-30-2022 Nitrite Ql (U) Negative Negative [facility] Work Phone: No Panel Informationon 09-30 Estimated GFR (MDRD) Amer 87 mL/min >60 [facility] Work Phone: Comment on above: GFR Calc Estimated GFR (MDRD) Non-Af Amer 72 mL/min >60 [facility] Work Phone: Comment on above: Non- GFR Calc Urine Leukocytes Negatve [facility] Work Phone: Urine Non-Hemolyzed Blood Moderate [facility] Work Phone: Protein Test strip Ql (U)on 09-30-2022 Protein Ql (U) Negative Negative [facility] Work Phone: Serum or plasma calcium jessie urement (mass/volume)on 09-30-2022 Calcium [Mass/Vol] 9.8 mg/dL 8.5-10.1 [facility] Work Phone: Serum or plasma creatinine m easurement (mass/volume)on 09-30-2022 Creatinine [Mass/Vol] 0.83 mg/dL 0.55-1.02 [facility] Work Phone: Comment on above: The validity of the calculated GFR & GFRAA in patients over 70 years has not been determined. Clinical correlation is essential. Serum or plasma urea nitroge n measurement (mass/volume)on 09-30-2022 Urea nitrogen [Mass/Vol] 15 mg/dL 7-18 [facility] Work Phone: Squamous epithelial cells de tection in urine sediment by light microscopyon 09-30-2022 Epithelial cells.squamous LM Ql (Urine sed) 0 SEEN /hpf 5-10 [facility] Work Phone: Thin prep Papanicolaou smear with manual screeningon 09-30-2022 Thin prep Papanicolaou smear with manual screening 7 5-15 [facility] Work Phone: Urine blood detectionon 09-18 RBC Ql (U) Negative Negative [facility] Work Phone: RBC Ql (U) 0 SEEN /hpf 0-5 [facility] Work Phone: Urine clarityon 09-30-2022 Clarity (U) Clear Clear [facility] Work Phone: Urine color determinationon 09-30-2022 Color (U) Yellow Yellow [facility] Work Phone: Urine glucose detectionon Glucose Ql (U) Normal mg/dl Normal [facility] Work Phone: Urine leukocyte esterase det ection by dipstickon 09-30-2022 Leukocyte esterase Test strip Ql (U) Negative Negative [facility] Work Phone: Urine pHon 09-30-2022 pH (U) 7.0 [pH] 5.0 - 8.0 [facility] Work Phone: Urine sediment bacteria coun t by microscopy (number/high power field)on 09-30-2022 Bacteria LM.HPF (Urine sed) [#/Area] 0 /[HPF] None Seen [facility] Work Phone: Urine specific gravity measu rementon 09-30-2022 Specific gravity (U) [Rel density] 1.005 1.002-1.030 [facility] Work Phone: Urobilinogen Auto test strip Ql (U)on 09-30-2022 Urobilinogen Ql (U) Normal mg/dl Normal [facility] Work Phone: Basophil percentageon 2021 Chloride [Moles/Vol] 88 mmol/L 98-107 [facility] Work Phone: Glucose [Mass/Vol] 114 mg/dL 74-106 [facility] Work Phone: Comment on above: Fasting Glucose resu lt from 100 to 125 mg/dL suggests IMPAIRED HOMEOSTASIS per A.D.A. criteria. Potassium [Moles/Vol] 4.5 mmol/L 3.5-5.1 [facility] Work Phone: Sodium [Moles/Vol] 125 mmol/L 136-145 [facility] Work Phone: Laboratory - Chemistry and C hemistry - challengeon 09-17-2022 CO2 [Moles/Vol] 29.0 mmol/L 21.0-32.0 [facility] Work Phone: Urea nitrogen/Creatinin e [Mass ratio] 26.0 mg/mg 10-20 [facility] Work Phone: No Panel Informationon 09-17 Estimated GFR (MDRD) Amer 71 mL/min >60 [facility] Work Phone: Comment on above: GFR Calc Estimated GFR (MDRD) Non-Af Amer 58 mL/min >60 [facility] Work Phone: Comment on above: Non- GFR Calc Serum or plasma calcium jessie urement (mass/volume)on 09-17-2022 Calcium [Mass/Vol] 9.6 mg/dL 8.5-10.1 [facility] Work Phone: [phone] Serum or plasma creatinine m easurement (mass/volume)on 09-17-2022 Creatinine [Mass/Vol] 1.00 mg/dL 0.55-1.02 [facility] Work Phone: Comment on above: The validity of the calculated GFR & GFRAA in patients over 70 years has not been determined. Clinical correlation is essential. Serum or plasma lamotrigine measurement (mass/volume)on 09-17-2022 lamoTRIgine [Mass/Vol] 8.4 ug/mL 2.0-20.0 [facility] Work Phone: Comment on above: Detection Limit = 1. 0Performed at: [facility] [id number] Director: Eduard Kathleen MD, Phone: [phone] Serum or plasma urea nitroge n measurement (mass/volume)on 09-17-2022 Urea nitrogen [Mass/Vol] 26 mg/dL 7-18 [facility] Work Phone: Thin prep Papanicolaou smear with manual screeningon 09-17-2022 Thin prep Papanicolaou smear with manual screening 8 5-15 [facility] Work Phone: Absolute lymphocyte counton 07-07-2022 Lymphocytes Auto (Unsp spec) [#/Vol] 1.85 10*3/uL 0.83-4.51 [facility] Work Phone: Basophil percentageon 2021 Basophil percentage 90 mg/dL 74-106 [facility] Work Phone: Basophil percentage 7.0 g/dL 6.4-8.2 [facility] Work Phone: Basophil percentage 0.30 mg/dL 0.20-1.00 [facility] Work Phone: Basophil percentage 133 mmol/L 136-145 [facility] Work Phone: Basophil percentage 4.0 mmol/L 3.5-5.1 [facility] Work Phone: Basophil percentage 96 mmol/L 98-107 [facility] Work Phone: Basophils (Bld) [#/Vol] 9.4 10*3/uL 4.4-11.0 [facility] Work Phone: Basophils (Bld) [#/Vol] 6.7 10*3/uL 2.0-7.7 [facility] Work Phone: Basophils/100 WBC (Bld) 71.7 % 47-70 [facility] Work Phone: Basophils/100 WBC (Bld) 1.1 % 0-5 [facility] Work Phone: Basophils/100 WBC (Bld) 0.3 % 0-1 [facility] Work Phone: Bilirubin [Mass/Vol] 0.30 mg/dL 0.20-1.00 [facility] Work Phone: Comment on above: For patients on eltr ombopag therapy, use of Dimension Thompson TBIL is not recommended. Chloride [Moles/Vol] 96 mmol/L 98-107 [facility] Work Phone: Eosinophils/100 WBC (Bld) 1.1 % 0-5 [facility] Work Phone: Glucose [Mass/Vol] 90 mg/dL 74-106 [facility] Work Phone: Neutrophils (Bld) [#/Vol] 6.7 10*3/uL 2.0-7.7 [facility] Work Phone: Neutrophils/100 WBC (Bld) 71.7 % 47-70 [facility] Work Phone: Potassium [Moles/Vol] 4.0 mmol/L 3.5-5.1 [facility] Work Phone: Protein [Mass/Vol] 7.0 g/dL 6.4-8.2 [facility] Work Phone: Sodium [Moles/Vol] 133 mmol/L 136-145 [facility] Work Phone: WBC (Bld) [#/Vol] 9.4 10*3/uL 4.4-11.0 [facility] Work Phone: Blood erythrocytes count (nu mber/volume)on 07-07-2022 RBC (Bld) [#/Vol] 3.94 10*6/uL 4.2-5.4 [facility] Work Phone: Blood hemoglobin measurement (mass/volume)on 07-07-2022 Hemoglobin (Bld) [Mass/Vol] 12.1 g/dL 12.0-15.0 [facility] Work Phone: Blood lymphocytes/100 leukoc yteson 07-07-2022 Lymphocytes/100 WBC (Bld) 19.8 % 19-41 [facility] Work Phone: Blood monocytes/100 leukocyt eson 07-07-2022 Monocytes/100 WBC (Bld) 6.4 % 0-10 [facility] Work Phone: Blood platelet mean volumeon 07-07-2022 Platelet mean volume (Bld) [Entitic vol] 8.7 fL 6.2-12.0 [facility] Work Phone: Determination of erythrocyte mean corpuscular volume (MCV)on 07-07-2022 MCV (RBC) [Entitic vol] 94.7 fL 81-99 [facility] Work Phone: Hematocrit Auto (Bld) [Volum e fraction]on 07-07-2022 Hematocrit (Bld) [Volume fraction] 37.3 % 37-47 [facility] Work Phone: INR in Blood by Coagulation assayon 07-07-2022 INR Coag (Bld) [Relative time] 1.1 {INR} [facility] Work Phone: Laboratory - Chemistry and C hemistry - challengeon 07-07-2022 ALP [Catalytic activity/Vol] 74 U/L 45-117 [facility] Work Phone: ALT [Catalytic activity/Vol] 13 U/L 13-56 [facility] Work Phone: CO2 [Moles/Vol] 31.0 mmol/L 21.0-32.0 [facility] Work Phone: Globulin (S) [Mass/Vol] 3.5 g/dL 2.2-4.2 [facility] Work Phone: Urea nitrogen/Creatinin e [Mass ratio] 16.5 mg/mg 10-20 [facility] Work Phone: Laboratory - Coagulationon 0 07-07-2022 aPTT Coag (Bld) [Time] 35.4 s 24.1-36.2 [facility] Work Phone: [phone] PT Coag (PPP) [Time] 13.7 s 11.7-14.9 [facility] Work Phone: [phone] Laboratory - Hematology and Cell countson 07-07-2022 Erythrocyte distribution width (RBC) [Entitic vol] 48.1 fL 35.1-43.9 [facility] Work Phone: [phone] Erythrocyte distribution width (RBC) [Ratio] 13.7 % 11.6-14.6 [facility] Work Phone: [phone] Immature granulocytes/100 WBC (Bld) 0.700 % 0.0-0.9 [facility] Work Phone: [phone] Comment on above: IG% - Immature Granu locytes (promyelocytes, myelocytes and metamyelocytes) > 1% indicates that a LEFT SHIFT is Present. MCH (RBC) [Entitic mass] 30.7 pg 27.0-32.0 [facility] Work Phone: [phone] Nucleated RBC/100 WBC (Bld) [Ratio] 0 % 0-5 [facility] Work Phone: [phone] MCHC Auto (RBC) [Mass/Vol]on 07-07-2022 MCHC (RBC) [Mass/Vol] 32.4 g/dL 32-36 [facility] Work Phone: [phone] Panel Informationon 07-07 Estimated Creatinine Clearance Calc 40.07 ml/min [facility] Work Phone: [phone] Estimated GFR (MDRD) Amer 93 mL/min >60 [facility] Work Phone: [phone] Comment on above: GFR Calc Estimated GFR (MDRD) Non-Af Amer 77 mL/min >60 [facility] Work Phone: [phone] Comment on above: Non- GFR Calc Hepatitis B Surface Antibody Non-Reactive . [facility] Work Phone: [phone] Comment on above: Non Reactive: Incons istent with immunity, less than 10 mIU/mL Reactive: Consistent with immunity, greater than 9.9 mIU/mL Hepatitis C Antibody <0.1 s/co ratio 0.0-0.9 [facility] Work Phone: Hepatitis C Antibody Comment Comment . [facility] Work Phone: Comment on above: NegativeNot infected with HCV, unless recent infection issuspected or other evidence exists to indicate HCVinfection.Performed at: [address] [id number] Director: Mike Up PhD, Phone: [phone] 30.7 pg 27.0-32.0 [facility] Work Phone: 13.7 % 11.6-14.6 [facility] Work Phone: 48.1 fl 35.1-43.9 [facility] Work Phone: 0.700 % 0.0-0.9 [facility] Work Phone: 0 % 0-5 [facility] Work Phone: 13.7 SECONDS 11.7-14.9 [facility] Work Phone: 35.4 Seconds 24.1-36.2 [facility] Work Phone: 77 mL/min >60 [facility] Work Phone: 93 mL/min >60 [facility] Work Phone: 40.07 ml/min [facility] Work Phone: 16.5 RATIO 10-20 [facility] Work Phone: 3.5 g/dL 2.2-4.2 [facility] Work Phone: 74 U/L 45-117 [facility] Work Phone: 13 U/L 13-56 [facility] Work Phone: 31.0 mmol/L 21.0-32.0 [facility] Work Phone: Non-Reactive . [facility] Work Phone: <0.1 s/co ratio 0.0-0.9 [facility] Work Phone: [phone] Comment . [facility] Work Phone: [phone] Platelets bldon 07-07-2022 Platelets (Bld) [#/Vol] 506 10*3/uL 150-450 [facility] Work Phone: [phone] Serum hepatitis B virus core antibody detectionon 07-07-2022 HBV core Ab Ql (S) Negative Negative [facility] Work Phone: [phone] Serum or plasma albumin jessie urement (mass/volume)on 07-07-2022 Albumin [Mass/Vol] 3.5 g/dL 3.2-5.0 [facility] Work Phone: [phone] Serum or plasma albumin/glob ulin mass ratioon 07-07-2022 Albumin/Globulin [Mass ratio] 1.0 {ratio} 0.9-2.4 [facility] Work Phone: [phone] Serum or plasma calcium jessie urement (mass/volume)on 07-07-2022 Calcium [Mass/Vol] 9.3 mg/dL 8.5-10.1 [facility] Work Phone: [phone] Serum or plasma creatinine m easurement (mass/volume)on 07-07-2022 Creatinine [Mass/Vol] 0.79 mg/dL 0.55-1.02 [facility] Work Phone: [phone] Comment on above: The validity of the calculated GFR & GFRAA in patients over 70 years has not been determined. Clinical correlation is essential. Serum or plasma hepatitis B virus surface antigen detection by immunoassayon 07-07-2022 HBV surface Ag IA Ql Negative Negative [facility] Work Phone: [phone] Serum or plasma urea nitroge n measurement (mass/volume)on 07-07-2022 Urea nitrogen [Mass/Vol] 13 mg/dL 7-18 [facility] Work Phone: [phone] Thin prep Papanicolaou smear with manual screeningon 07-07-2022 Thin prep Papanicolaou smear with manual screening 10 U/L 15-37 [facility] Work Phone: Thin prep Papanicolaou smear with manual screening 6 5-15 [facility] Work Phone: [phone] Absolute lymphocyte counton 06-10-2022 Lymphocytes Auto (Unsp spec) [#/Vol] 1.68 10*3/uL 0.83-4.51 [facility] Work Phone: Basophil percentageon 2021 Basophil percentage 99 mg/dL 74-106 [facility] Work Phone: Basophil percentage 134 mmol/L 136-145 [facility] Work Phone: Basophil percentage 4.6 mmol/L 3.5-5.1 [facility] Work Phone: Basophil percentage 101 mmol/L 98-107 [facility] Work Phone: Basophils (Bld) [#/Vol] 8.1 10*3/uL 4.4-11.0 [facility] Work Phone: Basophils (Bld) [#/Vol] 5.6 10*3/uL 2.0-7.7 [facility] Work Phone: Basophils/100 WBC (Bld) 0.4 % 0-1 [facility] Work Phone: Basophils/100 WBC (Bld) 68.7 % 47-70 [facility] Work Phone: Basophils/100 WBC (Bld) 2.0 % 0-5 [facility] Work Phone: Chloride [Moles/Vol] 101 mmol/L 98-107 [facility] Work Phone: Eosinophils/100 WBC (Bld) 2.0 % 0-5 [facility] Work Phone: Glucose [Mass/Vol] 99 mg/dL 74-106 [facility] Work Phone: Neutrophils (Bld) [#/Vol] 5.6 10*3/uL 2.0-7.7 [facility] Work Phone: [phone] Neutrophils/100 WBC (Bld) 68.7 % 47-70 [facility] Work Phone: [phone] Potassium [Moles/Vol] 4.6 mmol/L 3.5-5.1 [facility] Work Phone: [phone] Sodium [Moles/Vol] 134 mmol/L 136-145 [facility] Work Phone: [phone] WBC (Bld) [#/Vol] 8.1 10*3/uL 4.4-11.0 [facility] Work Phone: [phone] Blood erythrocytes count (nu mber/volume)on 06-10-2022 RBC (Bld) [#/Vol] 3.53 10*6/uL 4.2-5.4 [facility] [phone] Blood hemoglobin measurement (mass/volume)on 06-10-2022 Hemoglobin (Bld) [Mass/Vol] 11.5 g/dL 12.0-15.0 [facility] Work Phone: [phone] Blood lymphocytes/100 leukoc yteson 06-10-2022 Lymphocytes/100 WBC (Bld) 20.7 % 19-41 [facility] Work Phone: [phone] Blood monocytes/100 leukocyt eson 06-10-2022 Monocytes/100 WBC (Bld) 7.5 % 0-10 [facility] Work Phone: [phone] Blood platelet mean volumeon 06-10-2022 Platelet mean volume (Bld) [Entitic vol] 9.9 fL 6.2-12.0 [facility] Work Phone: [phone] Determination of erythrocyte mean corpuscular volume (MCV)on 06-10-2022 MCV (RBC) [Entitic vol] 98.6 fL 81-99 [facility] Work Phone: Hematocrit Auto (Bld) [Volum e fraction]on 06-10-2022 Hematocrit (Bld) [Volume fraction] 34.8 % 37-47 [facility] Work Phone: [phone] Laboratory - Chemistry and C hemistry - challengeon 06-10-2022 CO2 [Moles/Vol] 24.0 mmol/L 21.0-32.0 [facility] Work Phone: [phone] Urea nitrogen/Creatinin e [Mass ratio] 15.7 mg/mg 10-20 [facility] Work Phone: [phone] Laboratory - Hematology and Cell countson 06-10-2022 Erythrocyte distribution width (RBC) [Entitic vol] 51.6 fL 35.1-43.9 [facility] Work Phone: [phone] Erythrocyte distribution width (RBC) [Ratio] 14.3 % 11.6-14.6 [facility] Work Phone: [phone] Immature granulocytes/100 WBC (Bld) 0.700 % 0.0-0.9 [facility] Work Phone: [phone] Comment on above: IG% - Immature Granu locytes (promyelocytes, myelocytes and metamyelocytes) > 1% indicates that a LEFT SHIFT is Present. MCH (RBC) [Entitic mass] 32.6 pg 27.0-32.0 [facility] Work Phone: [phone] Nucleated RBC/100 WBC (Bld) [Ratio] 0 % 0-5 [facility] Work Phone: [phone] MCHC Auto (RBC) [Mass/Vol]on 06-10-2022 MCHC (RBC) [Mass/Vol] 33.0 g/dL 32-36 [facility] Work Phone: [phone] Panel Informationon 06-10 Estimated GFR (MDRD) Amer 87 mL/min >60 [facility] Work Phone: [phone] Comment on above: GFR Calc Estimated GFR (MDRD) Non-Af Amer 72 mL/min >60 [facility] Work Phone: [phone] Comment on above: Non- GFR Calc 32.6 pg 27.0-32.0 [facility] Work Phone: [phone] 14.3 % 11.6-14.6 [facility] Work Phone: 51.6 fl 35.1-43.9 [facility] Work Phone: [phone] 0.700 % 0.0-0.9 [facility] Work Phone: [phone] 0 % 0-5 [facility] Work Phone: [phone] 72 mL/min >60 [facility] Work Phone: [phone] 87 mL/min >60 [facility] Work Phone: [phone] 15.7 RATIO 10-20 [facility] Work Phone: [phone] 24.0 mmol/L 21.0-32.0 [facility] Work Phone: [phone] Platelets bldon 06-10-2022 Platelets (Bld) [#/Vol] 364 10*3/uL 150-450 [facility] Work Phone: [phone] Serum or plasma calcium jessie urement (mass/volume)on 06-10-2022 Calcium [Mass/Vol] 9.1 mg/dL 8.5-10.1 [facility] Work Phone: [phone] Serum or plasma creatinine m easurement (mass/volume)on 06-10-2022 Creatinine [Mass/Vol] 0.83 mg/dL 0.55-1.02 [facility] Work Phone: Comment on above: The validity of the calculated GFR & GFRAA in patients over 70 years has not been determined. Clinical correlation is essential. Serum or plasma urea nitroge n measurement (mass/volume)on 06-10-2022 Urea nitrogen [Mass/Vol] 13 mg/dL 7-18 [facility] Work Phone: Thin prep Papanicolaou smear with manual screeningon 06-10-2022 Thin prep Papanicolaou smear with manual screening 9 5-15 [facility] Work Phone: Basophil percentageon 2021 Basophil percentage 0-5 SEEN /hpf 0-5 [facility] Work Phone: Basophil percentage 107 mg/dL 74-106 [facility] Work Phone: [phone] Basophil percentage 132 mmol/L 136-145 [facility] Work Phone: Basophil percentage 4.6 mmol/L 3.5-5.1 [facility] Work Phone: Basophil percentage 98 mmol/L 98-107 [facility] Work Phone: Chloride [Moles/Vol] 98 mmol/L 98-107 [facility] Work Phone: Glucose [Mass/Vol] 107 mg/dL 74-106 [facility] Work Phone: Comment on above: Fasting Glucose resu lt from 100 to 125 mg/dL suggests IMPAIRED HOMEOSTASIS per A.D.A. criteria. Potassium [Moles/Vol] 4.6 mmol/L 3.5-5.1 [facility] Work Phone: Sodium [Moles/Vol] 132 mmol/L 136-145 [facility] Work Phone: Bilirubin Test strip Ql (U)o n 06-02-2022 Bilirubin Ql (U) Negative Negative [facility] Work Phone: Ketones Test strip Ql (U)on 06-02-2022 Ketones Ql (U) Negative Negative [facility] Work Phone: Laboratory - Chemistry and C hemistry - challengeon 06-02-2022 CO2 [Moles/Vol] 28.0 mmol/L 21.0-32.0 [facility] Work Phone: Urea nitrogen/Creatinin e [Mass ratio] 8.1 mg/mg 10-20 [facility] Work Phone: Mucus LM Ql (Urine sed)on Mucus Ql (Urine sed) 0 SEEN /hpf [facility] Work Phone: Nitrite Test strip Ql (U)on 06-02-2022 Nitrite Ql (U) Negative Negative [facility] Work Phone: No Panel Informationon 06-02 Estimated GFR (MDRD) Amer 84 mL/min >60 [facility] Work Phone: Comment on above: GFR Calc Estimated GFR (MDRD) Non-Af Amer 69 mL/min >60 [facility] Work Phone: [phone] Comment on above: Non- GFR Calc 69 mL/min >60 [facility] Work Phone: [phone] 84 mL/min >60 [facility] Work Phone: [phone] 8.1 RATIO 10-20 [facility] Work Phone: [phone] 28.0 mmol/L 21.0-32.0 [facility] Work Phone: [phone] Protein Test strip Ql (U)on 06-02-2022 Protein Ql (U) Negative Negative [facility] Work Phone: [phone] Serum or plasma calcium jessie urement (mass/volume)on 06-02-2022 Calcium [Mass/Vol] 9.3 mg/dL 8.5-10.1 [facility] Work Phone: [phone] Serum or plasma creatinine m easurement (mass/volume)on 06-02-2022 Creatinine [Mass/Vol] 0.86 mg/dL 0.55-1.02 [facility] Work Phone: [phone] Comment on above: The validity of the calculated GFR & GFRAA in patients over 70 years has not been determined. Clinical correlation is essential. Serum or plasma urea nitroge n measurement (mass/volume)on 06-02-2022 Urea nitrogen [Mass/Vol] 7 mg/dL 7-18 [facility] Work Phone: [phone] Squamous epithelial cells de tection in urine sediment by light microscopyon 06-02-2022 Epithelial cells.squamous LM Ql (Urine sed) 0 SEEN /hpf 5-10 [facility] Work Phone: [phone] Thin prep Papanicolaou smear with manual screeningon 06-02-2022 Thin prep Papanicolaou smear with manual screening 6 -15 [facility] Work Phone: [phone] Urine blood detectionon 05-19 RBC Ql (U) 25 /ul Negative [facility] Work Phone: [phone] RBC Ql (U) 0-5 SEEN /hpf 0-5 [facility] Work Phone: Urine clarityon 06-02-2022 Clarity (U) Clear Clear [facility] Work Phone: Urine color determinationon 06-02-2022 Color (U) Yellow Yellow [facility] Work Phone: Urine glucose detectionon Glucose Ql (U) Normal mg/dl Normal [facility] Work Phone: Urine leukocyte esterase det ection by dipstickon 06-02-2022 Leukocyte esterase Test strip Ql (U) Negative Negative [facility] Work Phone: Urine pHon 06-02-2022 pH (U) 6.5 [pH] 5.0 - 8.0 [facility] Work Phone: Urine sediment bacteria coun t by microscopy (number/high power field)on 06-02-2022 Bacteria LM.HPF (Urine sed) [#/Area] 0 /[HPF] None Seen [facility] Work Phone: Urine specific gravity measu rementon 06-02-2022 Specific gravity (U) [Rel density] 1.005 1.002-1.030 [facility] Work Phone: Urobilinogen Auto test strip Ql (U)on 06-02-2022 Urobilinogen Ql (U) Normal mg/dl Normal [facility] Work Phone: Absolute lymphocyte counton 05-20-2022 Lymphocytes Auto (Unsp spec) [#/Vol] 1.54 10*3/uL 0.83-4.51 [facility] Work Phone: Basophil percentageon 2021 Basophil percentage 111 mg/dL 74-106 [facility] Work Phone: Basophil percentage 5.7 g/dL 6.4-8.2 [facility] Work Phone: Basophil percentage 0.20 mg/dL 0.20-1.00 [facility] Work Phone: Basophil percentage 136 mmol/L 136-145 [facility] Work Phone: Basophil percentage 4.0 mmol/L 3.5-5.1 [facility] Work Phone: Basophil percentage 104 mmol/L 98-107 [facility] Work Phone: Basophils (Bld) [#/Vol] 6.9 10*3/uL 4.4-11.0 [facility] Work Phone: Basophils (Bld) [#/Vol] 4.6 10*3/uL 2.0-7.7 [facility] Work Phone: Basophils/100 WBC (Bld) 0.4 % 0-1 [facility] Work Phone: Basophils/100 WBC (Bld) 67.0 % 47-70 [facility] Work Phone: Basophils/100 WBC (Bld) 1.9 % 0-5 [facility] Work Phone: Bilirubin [Mass/Vol] 0.20 mg/dL 0.20-1.00 [facility] Work Phone: Comment on above: For patients on eltr ombopag therapy, use of Dimension Thompson TBIL is not recommended. Chloride [Moles/Vol] 104 mmol/L 98-107 [facility] Work Phone: Eosinophils/100 WBC (Bld) 1.9 % 0-5 [facility] Work Phone: Glucose [Mass/Vol] 111 mg/dL 74-106 [facility] Work Phone: Comment on above: Fasting Glucose resu lt from 100 to 125 mg/dL suggests IMPAIRED HOMEOSTASIS per A.D.A. criteria. Neutrophils (Bld) [#/Vol] 4.6 10*3/uL 2.0-7.7 [facility] Work Phone: Neutrophils/100 WBC (Bld) 67.0 % 47-70 [facility] Work Phone: Potassium [Moles/Vol] 4.0 mmol/L 3.5-5.1 [facility] Work Phone: [phone] Protein [Mass/Vol] 5.7 g/dL 6.4-8.2 [facility] Work Phone: [phone] Sodium [Moles/Vol] 136 mmol/L 136-145 [facility] Work Phone: [phone] WBC (Bld) [#/Vol] 6.9 10*3/uL 4.4-11.0 [facility] Work Phone: [phone] Basophil percentage 0-5 SEEN /hpf 0-5 [facility] Work Phone: [phone] Bilirubin Test strip Ql (U)o n 05-20-2022 Bilirubin Ql (U) Negative Negative [facility] Work Phone: [phone] Blood erythrocytes count (nu mber/volume)on 05-20-2022 RBC (Bld) [#/Vol] 3.36 10*6/uL 4.2-5.4 [facility] Work Phone: [phone] Blood hemoglobin measurement (mass/volume)on 05-20-2022 Hemoglobin (Bld) [Mass/Vol] 10.6 g/dL 12.0-15.0 [facility] Work Phone: [phone] Blood lymphocytes/100 leukoc yteson 05-20-2022 Lymphocytes/100 WBC (Bld) 22.3 % 19-41 [facility] Work Phone: [phone] Blood monocytes/100 leukocyt eson 05-20-2022 Monocytes/100 WBC (Bld) 7.5 % 0-10 [facility] Work Phone: [phone] Blood platelet mean volumeon 05-20-2022 Platelet mean volume (Bld) [Entitic vol] 8.7 fL 6.2-12.0 [facility] Work Phone: [phone] Determination of erythrocyte mean corpuscular volume (MCV)on 05-20-2022 MCV (RBC) [Entitic vol] 98.5 fL 81-99 [facility] Work Phone: [phone] Hematocrit Auto (Bld) [Volum e fraction]on 05-20-2022 Hematocrit (Bld) [Volume fraction] 33.1 % 37-47 [facility] Work Phone: [phone] Ketones Test strip Ql (U)on 05-20-2022 Ketones Ql (U) 5 mg/dl Negative [facility] Work Phone: [phone] Laboratory - Chemistry and C hemistry - challengeon 05-20-2022 ALP [Catalytic activity/Vol] 74 U/L 45-117 [facility] Work Phone: [phone] ALT [Catalytic activity/Vol] 13 U/L 13-56 [facility] Work Phone: [phone] CO2 [Moles/Vol] 31.0 mmol/L 21.0-32.0 [facility] Work Phone: [phone] Globulin (S) [Mass/Vol] 3.0 g/dL 2.2-4.2 [facility] Work Phone: [phone] Urea nitrogen/Creatinin e [Mass ratio] 10.9 mg/mg 10-20 [facility] Work Phone: [phone] Laboratory - Drug toxicology on 05-20-2022 Amphetamines Ql (U) Negative <1000 ng/mL [facility] Work Phone: [phone] Benzodiazepines Ql (U) Negative < 200 ng/mL [facility] Work Phone: [phone] Cannabinoids Screen Ql (U) Negative < 50 ng/mL [facility] Work Phone: [phone] Cocaine Ql (U) Negative < 300 ng/mL [facility] Work Phone: [phone] Opiates Ql (U) Negative < 300 ng/mL [facility] Work Phone: [phone] Laboratory - Hematology and Cell countson 05-20-2022 Erythrocyte distribution width (RBC) [Entitic vol] 54.5 fL 35.1-43.9 [facility] Work Phone: [phone] Erythrocyte distribution width (RBC) [Ratio] 15.2 % 11.6-14.6 [facility] Work Phone: [phone] Immature granulocytes/100 WBC (Bld) 0.900 % 0.0-0.9 [facility] Work Phone: [phone] Comment on above: IG% - Immature Granu locytes (promyelocytes, myelocytes and metamyelocytes) > 1% indicates that a LEFT SHIFT is Present. MCH (RBC) [Entitic mass] 31.5 pg 27.0-32.0 [facility] Work Phone: [phone] Nucleated RBC/100 WBC (Bld) [Ratio] 0 % 0-5 [facility] Work Phone: [phone] MCHC Auto (RBC) [Mass/Vol]on 05-20-2022 MCHC (RBC) [Mass/Vol] 32.0 g/dL 32-36 [facility] Work Phone: [phone] Mucus LM Ql (Urine sed)on Mucus Ql (Urine sed) 0 SEEN /hpf [facility] Work Phone: [phone] Nitrite Test strip Ql (U)on 05-20-2022 Nitrite Ql (U) Negative Negative [facility] Work Phone: [phone] No Panel Informationon 05-20 Estimated Creatinine Clearance Calc 38.18 ml/min [facility] Work Phone: [phone] Estimated GFR (MDRD) Amer 63 mL/min >60 [facility] Work Phone: [phone] Comment on above: GFR Calc Estimated GFR (MDRD) Non-Af Amer 52 mL/min >60 [facility] Work Phone: [phone] Comment on above: Non- GFR Calc Ethyl Alcohol Level < 3.0 mg/dL [facility] Work Phone: [phone] Comment on above: The serum:whole bloo d ethanol ratio is approximately 1.14and varies slightly with hematocrit. Medical Alcohol reference interval and critical value innon-tolerant individuals; 50 - 100 Impairment 100 Intoxication 100 - 250 Severe Poisoning 250 - 400 Deep/possible fatal coma Thyroid Stimulating Hormone (TSH) 0.76 uIU/mL 0.358-3.74 [facility] Work Phone: [phone] Valproic Acid (Depakene) Level 66 ug/mL 50-100 [facility] Work Phone: 31.5 pg 27.0-32.0 [facility] Work Phone: 15.2 % 11.6-14.6 [facility] Work Phone: 54.5 fl 35.1-43.9 [facility] Work Phone: [phone] 0.900 % 0.0-0.9 [facility] Work Phone: 0 % 0-5 [facility] [facility] 52 mL/min >60 [facility] Work Phone: 63 mL/min >60 [facility] Work Phone: 38.18 ml/min [facility] Work Phone: 10.9 RATIO 10-20 [facility] Work Phone: 3.0 g/dL 2.2-4.2 [facility] Work Phone: 74 U/L 45-117 [facility] Work Phone: 13 U/L 13-56 [facility] Work Phone: 31.0 mmol/L 21.0-32.0 [facility] Work Phone: 66 ug/mL 50-100 [facility] Work Phone: < 3.0 mg/dL [facility] Work Phone: 0.76 uIU/mL 0.358-3.74 [facility] Work Phone: MDMA (Ecstasy) Screen Negative < 500 ng/mL [facility] Work Phone: Urine Barbiturates Screen Negative < 200 ng/mL [facility] Work Phone: Urine Drug Screen Comment [facility] Work Phone: Comment on above: CONFIRMATORY TESTING FOR ALL POSITIVE URINE DRUG SCREENRESULTS WILL ONLY BE SENT OUT UPON PHYSICIAN ORDER. [facility]IST[facility] Urine Drug Screen methods provide only preliminaryanalytical test results. A more specific alternate chemicalmethod must be used in order to obtain a confirmedanalytical result. Gas chromatography/mass spectrometery(GC/MS) is the preferred confirmatory method. Clinicalconsideration and professional judgement should be appliedto any drug of abuse test result, particularly whenpreliminary positive results are used. URINE [facility]CA TESTING MUST BE ORDERED SEPARATELY. USE TESTMNEMONIC: [facility] Urine Methadone Screen Negative < 300 ng/mL [facility] Work Phone: [phone] [facility] Work Phone: [phone] Negative < 50 ng/mL [facility] Work Phone: [phone] Platelets bldon 05-20-2022 Platelets (Bld) [#/Vol] 382 10*3/uL 150-450 [facility] Work Phone: [phone] Protein Test strip Ql (U)on 05-20-2022 Protein Ql (U) 15 mg/dl Negative [facility] Work Phone: [phone] Serum or plasma albumin jessie urement (mass/volume)on 05-20-2022 Albumin [Mass/Vol] 2.7 g/dL 3.2-5.0 [facility] Work Phone: [phone] Serum or plasma albumin/glob ulin mass ratioon 05-20-2022 Albumin/Globulin [Mass ratio] 0.9 {ratio} 0.9-2.4 [facility] Work Phone: [phone] Serum or plasma calcium jessie urement (mass/volume)on 05-20-2022 Calcium [Mass/Vol] 8.6 mg/dL 8.5-10.1 [facility] Work Phone: [phone] Serum or plasma creatinine m easurement (mass/volume)on 05-20-2022 Creatinine [Mass/Vol] 1.10 mg/dL 0.55-1.02 [facility] Work Phone: [phone] Comment on above: The validity of the calculated GFR & GFRAA in patients over 70 years has not been determined. Clinical correlation is essential. Serum or plasma urea nitroge n measurement (mass/volume)on 05-20-2022 Urea nitrogen [Mass/Vol] 12 mg/dL 7-18 [facility] Work Phone: Squamous epithelial cells de tection in urine sediment by light microscopyon 05-20-2022 Epithelial cells.squamous LM Ql (Urine sed) 10-25 SEEN /hpf 5-10 [facility] Work Phone: Thin prep Papanicolaou smear with manual screeningon 05-20-2022 Thin prep Papanicolaou smear with manual screening 11 U/L 15-37 [facility] Work Phone: Thin prep Papanicolaou smear with manual screening 1 5-15 [facility] Work Phone: Urine blood detectionon RBC Ql (U) 10 /ul Negative [facility] Work Phone: RBC Ql (U) 0-5 SEEN /hpf 0-5 [facility] Work Phone: Urine clarityon 05-20-2022 Clarity (U) Clear Clear [facility] Work Phone: Urine color determinationon 05-20-2022 Color (U) Yellow Yellow [facility] Work Phone: Urine glucose detectionon Glucose Ql (U) Normal mg/dl Normal [facility] Work Phone: Urine leukocyte esterase det ection by dipstickon 05-20-2022 Leukocyte esterase Test strip Ql (U) 25 /ul Negative [facility] Work Phone: Urine pHon 05-20-2022 pH (U) 5.0 [pH] 5.0 - 8.0 [facility] Work Phone: Urine phencyclidine (PCP) de tectionon 05-20-2022 Phencyclidine Ql (U) Negative < 25 ng/mL [facility] Work Phone: Urine sediment bacteria coun t by microscopy (number/high power field)on 05-20-2022 Bacteria LM.HPF (Urine sed) [#/Area] 2 /[HPF] None Seen [facility] Work Phone: Urine specific gravity measu rementon 05-20-2022 Specific gravity (U) [Rel density] 1.015 1.002-1.030 [facility] Work Phone: Urobilinogen Auto test strip Ql (U)on 05-20-2022 Urobilinogen Ql (U) 1 mg/dl Normal [facility] Work Phone: Absolute lymphocyte counton 05-08-2022 Lymphocytes Auto (Unsp spec) [#/Vol] 1.52 10*3/uL 0.83-4.51 [facility] Work Phone: Basophil percentageon 2021 Basophil percentage 88 mg/dL 74-106 [facility] Work Phone: Basophil percentage 136 mmol/L 136-145 [facility] Work Phone: Basophil percentage 4.4 mmol/L 3.5-5.1 [facility] Work Phone: Basophil percentage 101 mmol/L 98-107 [facility] Work Phone: Basophils (Bld) [#/Vol] 9.1 10*3/uL 4.4-11.0 [facility] Work Phone: Basophils (Bld) [#/Vol] 6.6 10*3/uL 2.0-7.7 [facility] Work Phone: Basophils/100 WBC (Bld) 0.2 % 0-1 [facility] Work Phone: Basophils/100 WBC (Bld) 72.3 % 47-70 [facility] Work Phone: Basophils/100 WBC (Bld) 1.3 % 0-5 [facility] Work Phone: Chloride [Moles/Vol] 101 mmol/L 98-107 [facility] Work Phone: Eosinophils/100 WBC (Bld) 1.3 % 0-5 [facility] Work Phone: Glucose [Mass/Vol] 88 mg/dL 74-106 [facility] Work Phone: [phone] Neutrophils (Bld) [#/Vol] 6.6 10*3/uL 2.0-7.7 [facility] Work Phone: [phone] Neutrophils/100 WBC (Bld) 72.3 % 47-70 [facility] Work Phone: [phone] Potassium [Moles/Vol] 4.4 mmol/L 3.5-5.1 [facility] Work Phone: [phone] Sodium [Moles/Vol] 136 mmol/L 136-145 [facility] Work Phone: [phone] WBC (Bld) [#/Vol] 9.1 10*3/uL 4.4-11.0 [facility] Work Phone: [phone] Blood erythrocytes count (nu mber/volume)on 05-08-2022 RBC (Bld) [#/Vol] 3.49 10*6/uL 4.2-5.4 [facility] Work Phone: [phone] Blood hemoglobin measurement (mass/volume)on 05-08-2022 Hemoglobin (Bld) [Mass/Vol] 11.0 g/dL 12.0-15.0 [facility] Work Phone: [phone] Blood lymphocytes/100 leukoc yteson 05-08-2022 Lymphocytes/100 WBC (Bld) 16.7 % 19-41 [facility] Work Phone: [phone] Blood monocytes/100 leukocyt eson 05-08-2022 Monocytes/100 WBC (Bld) 7.0 % 0-10 [facility] Work Phone: [phone] Blood platelet mean volumeon 05-08-2022 Platelet mean volume (Bld) [Entitic vol] 8.7 fL 6.2-12.0 [facility] Work Phone: [phone] Determination of erythrocyte mean corpuscular volume (MCV)on 05-08-2022 MCV (RBC) [Entitic vol] 94.0 fL 81-99 [facility] Work Phone: Hematocrit Auto (Bld) [Volum e fraction]on 05-08-2022 Hematocrit (Bld) [Volume fraction] 32.8 % 37-47 [facility] Work Phone: [phone] Laboratory - Chemistry and C hemistry - challengeon 05-08-2022 CO2 [Moles/Vol] 30.0 mmol/L 21.0-32.0 [facility] Work Phone: [phone] Urea nitrogen/Creatinin e [Mass ratio] 10.7 mg/mg 10-20 [facility] Work Phone: [phone] Laboratory - Hematology and Cell countson 05-08-2022 Erythrocyte distribution width (RBC) [Entitic vol] 47.2 fL 35.1-43.9 [facility] Work Phone: [phone] Erythrocyte distribution width (RBC) [Ratio] 13.9 % 11.6-14.6 [facility] Work Phone: [phone] Immature granulocytes/100 WBC (Bld) 2.500 % 0.0-0.9 [facility] Work Phone: [phone] Comment on above: IG% - Immature Granu locytes (promyelocytes, myelocytes and metamyelocytes) > 1% indicates that a LEFT SHIFT is Present. MCH (RBC) [Entitic mass] 31.5 pg 27.0-32.0 [facility] Work Phone: [phone] Nucleated RBC/100 WBC (Bld) [Ratio] 0 % 0-5 [facility] Work Phone: [phone] MCHC Auto (RBC) [Mass/Vol]on 05-08-2022 MCHC (RBC) [Mass/Vol] 33.5 g/dL 32-36 [facility] Work Phone: [phone] Panel Informationon 05-08 Estimated GFR (MDRD) Amer 57 mL/min >60 [facility] Work Phone: [phone] Comment on above: GFR Calc Estimated GFR (MDRD) Non-Af Amer 47 mL/min >60 [facility] Work Phone: [phone] Comment on above: Non- GFR Calc 31.5 pg 27.0-32.0 [facility] Work Phone: [phone] 13.9 % 11.6-14.6 [facility] Work Phone: [phone] 47.2 fl 35.1-43.9 [facility] Work Phone: [phone] 2.500 % 0.0-0.9 [facility] Work Phone: [phone] 0 % 0-5 [facility] Work Phone: [phone] 47 mL/min >60 [facility] Work Phone: [phone] 57 mL/min >60 [facility] Work Phone: [phone] 10.7 RATIO 10-20 [facility] Work Phone: [phone] 30.0 mmol/L 21.0-32.0 [facility] Work Phone: [phone] Platelets bldon 05-08-2022 Platelets (Bld) [#/Vol] 279 10*3/uL 150-450 [facility] Work Phone: [phone] Serum or plasma calcium jessie urement (mass/volume)on 05-08-2022 Calcium [Mass/Vol] 8.6 mg/dL 8.5-10.1 [facility] Work Phone: [phone] Serum or plasma creatinine m easurement (mass/volume)on 05-08-2022 Creatinine [Mass/Vol] 1.21 mg/dL 0.55-1.02 [facility] Work Phone: Comment on above: The validity of the calculated GFR & GFRAA in patients over 70 years has not been determined. Clinical correlation is essential. Serum or plasma urea nitroge n measurement (mass/volume)on 05-08-2022 Urea nitrogen [Mass/Vol] 13 mg/dL 7-18 [facility] Work Phone: Thin prep Papanicolaou smear with manual screeningon 05-08-2022 Thin prep Papanicolaou smear with manual screening 5 5-15 [facility] Work Phone: Absolute lymphocyte counton 05-06-2022 Lymphocytes Auto (Unsp spec) [#/Vol] 1.59 10*3/uL 0.83-4.51 [facility] Work Phone: Basophil percentageon 2021 Basophil percentage 3.0 mg/dL 2.5-4.9 [facility] Work Phone: Basophil percentage 86 mg/dL 74-106 [facility] Work Phone: Basophil percentage 137 mmol/L 136-145 [facility] Work Phone: Basophil percentage 3.4 mmol/L 3.5-5.1 [facility] Work Phone: Basophil percentage 105 mmol/L 98-107 [facility] Work Phone: Basophils (Bld) [#/Vol] 8.6 10*3/uL 4.4-11.0 [facility] Work Phone: Basophils (Bld) [#/Vol] 6.0 10*3/uL 2.0-7.7 [facility] Work Phone: Basophils/100 WBC (Bld) 0.2 % 0-1 [facility] Work Phone: Basophils/100 WBC (Bld) 69.6 % 47-70 [facility] Work Phone: Basophils/100 WBC (Bld) 1.0 % 0-5 [facility] Work Phone: Chloride [Moles/Vol] 105 mmol/L 98-107 [facility] Work Phone: Eosinophils/100 WBC (Bld) 1.0 % 0-5 [facility] Work Phone: Glucose [Mass/Vol] 86 mg/dL 74-106 [facility] Work Phone: Neutrophils (Bld) [#/Vol] 6.0 10*3/uL 2.0-7.7 [facility] Work Phone: Neutrophils/100 WBC (Bld) 69.6 % 47-70 [facility] Work Phone: [phone] Potassium [Moles/Vol] 3.4 mmol/L 3.5-5.1 [facility] Work Phone: [phone] Comment on above: Slight Hemolysis, Re sult may be falsely increased. Sodium [Moles/Vol] 137 mmol/L 136-145 [facility] Work Phone: [phone] WBC (Bld) [#/Vol] 8.6 10*3/uL 4.4-11.0 [facility] Work Phone: [phone] Blood erythrocytes count (nu mber/volume)on 05-06-2022 RBC (Bld) [#/Vol] 3.27 10*6/uL 4.2-5.4 [facility] Work Phone: [phone] Blood hemoglobin measurement (mass/volume)on 05-06-2022 Hemoglobin (Bld) [Mass/Vol] 10.2 g/dL 12.0-15.0 [facility] Work Phone: [phone] Blood lymphocytes/100 leukoc yteson 05-06-2022 Lymphocytes/100 WBC (Bld) 18.5 % 19-41 [facility] Work Phone: [phone] Blood monocytes/100 leukocyt eson 05-06-2022 Monocytes/100 WBC (Bld) 8.5 % 0-10 [facility] Work Phone: [phone] Blood platelet mean volumeon 05-06-2022 Platelet mean volume (Bld) [Entitic vol] 9.1 fL 6.2-12.0 [facility] Work Phone: [phone] Determination of erythrocyte mean corpuscular volume (MCV)on 05-06-2022 MCV (RBC) [Entitic vol] 94.5 fL 81-99 [facility] Work Phone: [phone] Hematocrit Auto (Bld) [Volum e fraction]on 05-06-2022 Hematocrit (Bld) [Volume fraction] 30.9 % 37-47 [facility] Work Phone: [phone] Laboratory - Chemistry and C hemistry - challengeon 07-19-2022 CO2 [Moles/Vol] 25.0 mmol/L 21.0-32.0 [facility] Work Phone: [phone] Urea nitrogen/Creatinin e [Mass ratio] 13.2 mg/mg 10-20 [facility] Work Phone: [phone] Laboratory - Hematology and Cell countson 05-06-2022 Erythrocyte distribution width (RBC) [Entitic vol] 47.4 fL 35.1-43.9 [facility] Work Phone: [phone] Erythrocyte distribution width (RBC) [Ratio] 13.9 % 11.6-14.6 [facility] Work Phone: [phone] Immature granulocytes/100 WBC (Bld) 2.200 % 0.0-0.9 [facility] Work Phone: [phone] Comment on above: IG% - Immature Granu locytes (promyelocytes, myelocytes and metamyelocytes) > 1% indicates that a LEFT SHIFT is Present. MCH (RBC) [Entitic mass] 31.2 pg 27.0-32.0 [facility] Work Phone: [phone] Nucleated RBC/100 WBC (Bld) [Ratio] 0 % 0-5 [facility] Work Phone: [phone] MCHC Auto (RBC) [Mass/Vol]on 05-06-2022 MCHC (RBC) [Mass/Vol] 33.0 g/dL 32-36 [facility] Work Phone: [phone] No Panel Informationon 05-06 Estimated Creatinine Clearance Calc 23.07 ml/min [facility] Work Phone: [phone] Estimated GFR (MDRD) Amer 35 mL/min >60 [facility] Work Phone: [phone] Comment on above: GFR Calc Estimated GFR (MDRD) Non-Af Amer 29 mL/min >60 [facility] Work Phone: [phone] Comment on above: Non- GFR Calc 31.2 pg 27.0-32.0 [facility] Work Phone: [phone] 13.9 % 11.6-14.6 [facility] Work Phone: 47.4 fl 35.1-43.9 [facility] Work Phone: [phone] 2.200 % 0.0-0.9 [facility] Work Phone: [phone] 0 % 0-5 [facility] Work Phone: [phone] 29 mL/min >60 [facility] Work Phone: [phone] 35 mL/min >60 [facility] Work Phone: [phone] 23.07 ml/min [facility] Work Phone: [phone] 13.2 RATIO 10-20 [facility] Work Phone: [phone] 25.0 mmol/L 21.0-32.0 [facility] Work Phone: [phone] Platelets bldon 05-06-2022 Platelets (Bld) [#/Vol] 258 10*3/uL 150-450 [facility] Work Phone: [phone] Serum or plasma albumin jessie urement (mass/volume)on 05-06-2022 Albumin [Mass/Vol] 2.1 g/dL 3.2-5.0 [facility] Work Phone: [phone] Serum or plasma calcium jessie urement (mass/volume)on 05-06-2022 Calcium [Mass/Vol] 8.4 mg/dL 8.5-10.1 [facility] Work Phone: [phone] Serum or plasma creatinine m easurement (mass/volume)on 05-06-2022 Creatinine [Mass/Vol] 1.82 mg/dL 0.55-1.02 [facility] Work Phone: [phone] Comment on above: The validity of the calculated GFR & GFRAA in patients over 70 years has not been determined. Clinical correlation is essential. Serum or plasma urea nitroge n measurement (mass/volume)on 05-06-2022 Urea nitrogen [Mass/Vol] 24 mg/dL 7-18 [facility] Work Phone: [phone] Thin prep Papanicolaou smear with manual screeningon 05-05-2022 Thin prep Papanicolaou smear with manual screening 10 5-15 [facility] Work Phone: Basophil percentageon 2021 Basophil percentage 4.8 g/dL 6.4-8.2 [facility] Work Phone: Basophil percentage 0.20 mg/dL 0.20-1.00 [facility] Work Phone: [phone] Bilirubin [Mass/Vol] 0.20 mg/dL 0.20-1.00 [facility] Work Phone: [phone] Comment on above: For patients on eltr ombopag therapy, use of Dimension Thompson TBIL is not recommended. Protein [Mass/Vol] 4.8 g/dL 6.4-8.2 [facility] Work Phone: Laboratory - Chemistry and C hemistry - challengeon 05-04-2022 ALP [Catalytic activity/Vol] 76 U/L 45-117 [facility] Work Phone: [phone] ALT [Catalytic activity/Vol] 11 U/L 13- [facility] Work Phone: [phone] Globulin (S) [Mass/Vol] 2.8 g/dL 2.2-4.2 [facility] Work Phone: [phone] Magnesium [Mass/Vol] 1.9 mg/dL 1.6-2.6 [facility] Work Phone: No Panel Informationon 05-04 Thyroid Stimulating Hormone (TSH) 0.40 uIU/mL 0.358-3.74 [facility] Work Phone: 2.8 g/dL 2.2-4.2 [facility] Work Phone: 76 U/L 45-117 [facility] Work Phone: 11 U/L 13-56 [facility] Work Phone: 1.9 mg/dL 1.6-2.6 [facility] Work Phone: 0.40 uIU/mL 0.358-3.74 [facility] Work Phone: Serum or plasma albumin/glob ulin mass ratioon 05-04-2022 Albumin/Globulin [Mass ratio] 0.7 {ratio} 0.9-2.4 [facility] Work Phone: Thin prep Papanicolaou smear with manual screeningon 05-04-2022 Thin prep Papanicolaou smear with manual screening 24 U/L 15-37 [facility] Work Phone: Absolute lymphocyte counton 05-03-2022 Lymphocytes Auto (Unsp spec) [#/Vol] 1.33 10*3/uL 0.83-4.51 [facility] Work Phone: Basophil percentageon 2021 Basophil percentage >100 SEEN /hpf 0-5 [facility] Work Phone: Basophil percentage 0.8 mmol/L 0.4-2.0 [facility] Work Phone: Lactate [Moles/Vol] 0.8 mmol/L 0.4-2.0 [facility] Work Phone: Basophils/100 WBC (Bld) 0.2 % 0-1 [facility] Work Phone: Bilirubin [Mass/Vol] 0.30 mg/dL 0.20-1.00 [facility] Work Phone: Comment on above: For patients on eltr ombopag therapy, use of Dimension Thompson TBIL is not recommended. Chloride [Moles/Vol] 89 mmol/L 98-107 [facility] Work Phone: Eosinophils/100 WBC (Bld) 0.2 % 0-5 [facility] Work Phone: Glucose [Mass/Vol] 94 mg/dL 74-106 [facility] Work Phone: Neutrophils (Bld) [#/Vol] 6.2 10*3/uL 2.0-7.7 [facility] Work Phone: Neutrophils/100 WBC (Bld) 75.7 % 47-70 [facility] Work Phone: Potassium [Moles/Vol] 3.0 mmol/L 3.5-5.1 [facility] Work Phone: [phone] Comment on above: Slight Hemolysis, Re sult may be falsely increased. Protein [Mass/Vol] 6.7 g/dL 6.4-8.2 [facility] Work Phone: [phone] Sodium [Moles/Vol] 127 mmol/L 136-145 [facility] Work Phone: [phone] WBC (Bld) [#/Vol] 8.1 10*3/uL 4.4-11.0 [facility] Work Phone: [phone] Bilirubin Test strip Ql (U)o n 05-03-2022 Bilirubin Ql (U) Negative Negative [facility] Work Phone: [phone] Blood erythrocytes count (nu mber/volume)on 05-03-2022 RBC (Bld) [#/Vol] 3.96 10*6/uL 4.2-5.4 [facility] Work Phone: [phone] Blood hemoglobin measurement (mass/volume)on 05-03-2022 Hemoglobin (Bld) [Mass/Vol] 12.3 g/dL 12.0-15.0 [facility] Work Phone: [phone] Blood lymphocytes/100 leukoc yteson 05-03-2022 Lymphocytes/100 WBC (Bld) 16.3 % 19-41 [facility] Work Phone: [phone] Blood monocytes/100 leukocyt eson 05-03-2022 Monocytes/100 WBC (Bld) 6.1 % 0-10 [facility] Work Phone: [phone] Blood platelet mean volumeon 05-03-2022 Platelet mean volume (Bld) [Entitic vol] 9.3 fL 6.2-12.0 [facility] Work Phone: [phone] Determination of erythrocyte mean corpuscular volume (MCV)on 05-03-2022 MCV (RBC) [Entitic vol] 90.4 fL 81-99 [facility] Work Phone: [phone] Hematocrit Auto (Bld) [Volum e fraction]on 05-03-2022 Hematocrit (Bld) [Volume fraction] 35.8 % 37-47 [facility] Work Phone: INR in Blood by Coagulation assayon 05-03-2022 INR Coag (Bld) [Relative time] 1.1 {INR} [facility] Work Phone: Ketones Test strip Ql (U)on 05-03-2022 Ketones Ql (U) Negative Negative [facility] Work Phone: [phone] Laboratory - Chemistry and C hemistry - challengeon 05-03-2022 ALP [Catalytic activity/Vol] 102 U/L 45-117 [facility] Work Phone: ALT [Catalytic activity/Vol] 15 U/L 13-56 [facility] Work Phone: CO2 [Moles/Vol] 26.0 mmol/L 21.0-32.0 [facility] Work Phone: Globulin (S) [Mass/Vol] 3.7 g/dL 2.2-4.2 [facility] Work Phone: Urea nitrogen/Creatinin e [Mass ratio] 10.3 mg/mg 10-20 [facility] Work Phone: Laboratory - Coagulationon 0 05-03-2022 aPTT Coag (Bld) [Time] 31.9 s 24.1-36.2 [facility] Work Phone: PT Coag (PPP) [Time] 13.4 s 11.7-14.9 [facility] Work Phone: Laboratory - Hematology and Cell countson 05-03-2022 Erythrocyte distribution width (RBC) [Entitic vol] 44.0 fL 35.1-43.9 [facility] Work Phone: Erythrocyte distribution width (RBC) [Ratio] 13.3 % 11.6-14.6 [facility] Work Phone: Immature granulocytes/100 WBC (Bld) 1.500 % 0.0-0.9 [facility] Work Phone: Comment on above: IG% - Immature Granu locytes (promyelocytes, myelocytes and metamyelocytes) > 1% indicates that a LEFT SHIFT is Present. MCH (RBC) [Entitic mass] 31.1 pg 27.0-32.0 [facility] Work Phone: Nucleated RBC/100 WBC (Bld) [Ratio] 0 % 0-5 [facility] Work Phone: MCHC Auto (RBC) [Mass/Vol]on 05-03-2022 MCHC (RBC) [Mass/Vol] 34.4 g/dL 32-36 [facility] Work Phone: Mucus LM Ql (Urine sed)on Mucus Ql (Urine sed) 0 SEEN /hpf [facility] Work Phone: Nitrite Test strip Ql (U)on 05-03-2022 Nitrite Ql (U) Negative Negative [facility] Work Phone: No Panel Informationon 05-03 Estimated Creatinine Clearance Calc 8.50 ml/min [facility] Work Phone: Estimated GFR (MDRD) Amer 11 mL/min >60 [facility] Work Phone: Comment on above: GFR Calc Estimated GFR (MDRD) Non-Af Amer 9 mL/min >60 [facility] Work Phone: Comment on above: Non- GFR Calc Valproic Acid (Depakene) Level 92 ug/mL 50-100 [facility] Work Phone: 13.4 SECONDS 11.7-14.9 [facility] Work Phone: 31.9 Seconds 24.1-36.2 [facility] Work Phone: 92 ug/mL 50-100 [facility] Work Phone: Platelets bldon 05-03-2022 Platelets (Bld) [#/Vol] 293 10*3/uL 150-450 [facility] Work Phone: Protein Test strip Ql (U)on 05-03-2022 Protein Ql (U) 100 mg/dl Negative [facility] Work Phone: [phone] Serum or plasma albumin jessie urement (mass/volume)on 05-03-2022 Albumin [Mass/Vol] 3.0 g/dL 3.2-5.0 [facility] Work Phone: [phone] Serum or plasma albumin/glob ulin mass ratioon 05-03-2022 Albumin/Globulin [Mass ratio] 0.8 {ratio} 0.9-2.4 [facility] Work Phone: Serum or plasma calcium jessie urement (mass/volume)on 05-03-2022 Calcium [Mass/Vol] 8.9 mg/dL 8.5-10.1 [facility] Work Phone: Serum or plasma creatinine m easurement (mass/volume)on 05-03-2022 Creatinine [Mass/Vol] 4.94 mg/dL 0.55-1.02 [facility] Work Phone: Comment on above: The validity of the calculated GFR & GFRAA in patients over 70 years has not been determined. Clinical correlation is essential. Serum or plasma urea nitroge n measurement (mass/volume)on 05-03-2022 Urea nitrogen [Mass/Vol] 51 mg/dL 7-18 [facility] Work Phone: Squamous epithelial cells de tection in urine sediment by light microscopyon 05-03-2022 Epithelial cells.squamous LM Ql (Urine sed) 0-5 SEEN /hpf 5-10 [facility] Work Phone: [phone] Thin prep Papanicolaou smear with manual screeningon 05-03-2022 Thin prep Papanicolaou smear with manual screening 40 U/L 15-37 [facility] Work Phone: Comment on above: Slight Hemolysis, Re sult may be falsely increased. Thin prep Papanicolaou smear with manual screening 12 5-15 [facility] Work Phone: [phone] Urine blood detectionon 04-18 RBC Ql (U) 250 /ul Negative [facility] Work Phone: RBC Ql (U) 10-25 SEEN /hpf 0-5 [facility] Work Phone: Urine clarityon 05-03-2022 Clarity (U) Cloudy Clear [facility] Work Phone: Urine color determinationon 05-03-2022 Color (U) Yellow Yellow [facility] Work Phone: Urine glucose detectionon Glucose Ql (U) Normal mg/dl Normal [facility] Work Phone: Urine leukocyte esterase det ection by dipstickon 05-03-2022 Leukocyte esterase Test strip Ql (U) 500 /ul Negative [facility] Work Phone: Urine pHon 05-03-2022 pH (U) 6.5 [pH] 5.0 - 8.0 [facility] Work Phone: Urine sediment bacteria coun t by microscopy (number/high power field)on 05-03-2022 Bacteria LM.HPF (Urine sed) [#/Area] 3 /[HPF] None Seen [facility] Work Phone: Urine specific gravity measu rementon 05-03-2022 Specific gravity (U) [Rel density] 1.010 1.002-1.030 [facility] [facility] Work Phone: Urobilinogen Auto test strip Ql (U)on 05-03-2022 Urobilinogen Ql (U) Normal mg/dl Normal [facility] Work Phone: Absolute lymphocyte counton 04-17-2022 Lymphocytes Auto (Unsp spec) [#/Vol] 2.00 10*3/uL 0.83-4.51 [facility] Work Phone: Basophil percentageon 2021 Basophils/100 WBC (Bld) 0.4 % 0-1 [facility] Work Phone: Bilirubin [Mass/Vol] 0.40 mg/dL 0.20-1.00 [facility] Work Phone: Comment on above: For patients on eltr ombopag therapy, use of Dimension Thompson TBIL is not recommended. Chloride [Moles/Vol] 93 mmol/L 98-107 [facility] Work Phone: Eosinophils/100 WBC (Bld) 0.9 % 0-5 [facility] Work Phone: Glucose [Mass/Vol] 102 mg/dL 74-106 [facility] Work Phone: Comment on above: Fasting Glucose resu lt from 100 to 125 mg/dL suggests IMPAIRED HOMEOSTASIS per A.D.A. criteria. Neutrophils (Bld) [#/Vol] 7.4 10*3/uL 2.0-7.7 [facility] Work Phone: Neutrophils/100 WBC (Bld) 71.5 % 47-70 [facility] Work Phone: Potassium [Moles/Vol] 3.7 mmol/L 3.5-5.1 [facility] Work Phone: Protein [Mass/Vol] 7.0 g/dL 6.4-8.2 [facility] Work Phone: Sodium [Moles/Vol] 131 mmol/L 136-145 [facility] Work Phone: WBC (Bld) [#/Vol] 10.4 10*3/uL 4.4-11.0 [facility] Work Phone: Blood erythrocytes count (nu mber/volume)on 04-17-2022 RBC (Bld) [#/Vol] 4.04 10*6/uL 4.2-5.4 [facility] Work Phone: Blood hemoglobin measurement (mass/volume)on 04-17-2022 Hemoglobin (Bld) [Mass/Vol] 12.7 g/dL 12.0-15.0 [facility] Work Phone: Blood lymphocytes/100 leukoc yteson 04-17-2022 Lymphocytes/100 WBC (Bld) 19.3 % 19-41 [facility] Work Phone: Blood monocytes/100 leukocyt eson 04-17-2022 Monocytes/100 WBC (Bld) 7.1 % 0-10 [facility] Work Phone: [phone] Blood platelet mean volumeon 04-17-2022 Platelet mean volume (Bld) [Entitic vol] 9.1 fL 6.2-12.0 [facility] Work Phone: [phone] Determination of erythrocyte mean corpuscular volume (MCV)on 04-17-2022 MCV (RBC) [Entitic vol] 92.6 fL 81-99 [facility] Work Phone: [phone] Hematocrit Auto (Bld) [Volum e fraction]on 04-17-2022 Hematocrit (Bld) [Volume fraction] 37.4 % 37-47 [facility] Work Phone: [phone] Laboratory - Chemistry and C hemistry - challengeon 04-17-2022 ALP [Catalytic activity/Vol] 92 U/L 45-117 [facility] Work Phone: [phone] ALT [Catalytic activity/Vol] 12 U/L 13-56 [facility] Work Phone: [phone] CO2 [Moles/Vol] 32.0 mmol/L 21.0-32.0 [facility] Work Phone: [phone] Globulin (S) [Mass/Vol] 3.7 g/dL 2.2-4.2 [facility] Work Phone: [phone] Urea nitrogen/Creatinin e [Mass ratio] 12.2 mg/mg 10-20 [facility] Work Phone: [phone] Laboratory - Hematology and Cell countson 04-17-2022 Erythrocyte distribution width (RBC) [Entitic vol] 49.5 fL 35.1-43.9 [facility] Work Phone: [phone] Erythrocyte distribution width (RBC) [Ratio] 14.6 % 11.6-14.6 [facility] Work Phone: Immature granulocytes/100 WBC (Bld) 0.800 % 0.0-0.9 [facility] Work Phone: Comment on above: IG% - Immature Granu locytes (promyelocytes, myelocytes and metamyelocytes) > 1% indicates that a LEFT SHIFT is Present. MCH (RBC) [Entitic mass] 31.4 pg 27.0-32.0 [facility] Work Phone: [phone] Nucleated RBC/100 WBC (Bld) [Ratio] 0 % 0-5 [facility] Work Phone: [phone] MCHC Auto (RBC) [Mass/Vol]on 04-17-2022 MCHC (RBC) [Mass/Vol] 34.0 g/dL 32-36 [facility] Work Phone: [phone] No Panel Informationon 04-17 Estimated Creatinine Clearance Calc 17.42 ml/min [facility] Work Phone: [phone] Estimated GFR (MDRD) Amer 27 mL/min >60 [facility] Work Phone: [phone] Comment on above: GFR Calc Estimated GFR (MDRD) Non-Af Amer 22 mL/min >60 [facility] Work Phone: [phone] Comment on above: Non- GFR Calc Platelets bldon 04-17-2022 Platelets (Bld) [#/Vol] 417 10*3/uL 150-450 [facility] Work Phone: [phone] Serum or plasma albumin jessie urement (mass/volume)on 04-17-2022 Albumin [Mass/Vol] 3.3 g/dL 3.2-5.0 [facility] Work Phone: [phone] Serum or plasma albumin/glob ulin mass ratioon 04-17-2022 Albumin/Globulin [Mass ratio] 0.9 {ratio} 0.9-2.4 [facility] Work Phone: [phone] Serum or plasma calcium jessie urement (mass/volume)on 04-17-2022 Calcium [Mass/Vol] 9.2 mg/dL 8.5-10.1 [facility] Work Phone: [phone] Serum or plasma creatinine m easurement (mass/volume)on 04-17-2022 Creatinine [Mass/Vol] 2.30 mg/dL 0.55-1.02 [facility] Work Phone: Comment on above: The validity of the calculated GFR & GFRAA in patients over 70 years has not been determined. Clinical correlation is essential. Serum or plasma urea nitroge n measurement (mass/volume)on 04-17-2022 Urea nitrogen [Mass/Vol] 28 mg/dL 7-18 [facility] Work Phone: Thin prep Papanicolaou smear with manual screeningon 04-17-2022 Thin prep Papanicolaou smear with manual screening 12 U/L 15-37 [facility] Work Phone: Thin prep Papanicolaou smear with manual screening 6 5-15 [facility] Work Phone: Thin prep Papanicolaou smear with manual screening 148 U/L 84-246 [facility] Work Phone: Basophil percentageon 2021 Chloride [Moles/Vol] 97 mmol/L 98-107 [facility] Work Phone: Glucose [Mass/Vol] 141 mg/dL 74-106 [facility] Work Phone: Comment on above: Fasting Glucose resu lt greater than or equal to 126 mg/dL suggests DIABETES MELLITUS per A.D.A. criteria. Potassium [Moles/Vol] 3.4 mmol/L 3.5-5.1 [facility] Work Phone: Sodium [Moles/Vol] 137 mmol/L 136-145 [facility] Work Phone: Laboratory - Chemistry and C hemistry - challengeon 12-04-2021 CO2 [Moles/Vol] 36.0 mmol/L 21.0-32.0 [facility] Work Phone: Urea nitrogen/Creatinin e [Mass ratio] 22.9 mg/mg 10-20 [facility] Work Phone: No Panel Informationon 12-04 Estimated GFR (MDRD) Amer 93 mL/min >60 [facility] Work Phone: Comment on above: GFR Calc Estimated GFR (MDRD) Non-Af Amer 77 mL/min >60 [facility] Work Phone: Comment on above: Non- GFR Calc Serum or plasma calcium jessie urement (mass/volume)on 12-04-2021 Calcium [Mass/Vol] 8.7 mg/dL 8.5-10.1 [facility] Work Phone: Serum or plasma creatinine m easurement (mass/volume)on 12-04-2021 Creatinine [Mass/Vol] 0.78 mg/dL 0.55-1.02 [facility] Work Phone: Comment on above: The validity of the calculated GFR & GFRAA in patients over 70 years has not been determined. Clinical correlation is essential. Serum or plasma urea nitroge n measurement (mass/volume)on 12-04-2021 Urea nitrogen [Mass/Vol] 18 mg/dL 7-18 [facility] Work Phone: Thin prep Papanicolaou smear with manual screeningon 12-04-2021 Thin prep Papanicolaou smear with manual screening 4 5-15 [facility] Work Phone: XR Humerus - left AP and Lat eralon 08-30-2021 IMPRESSION: No significant acute radiographic abnormality identified. Play Therapist: CORINNE Transcribe Date/Time: Aug 30 2021 3:05A Dictated by : SOO PASTOR MD This examination was interpreted and the report reviewed and electronically signed by: SOO PASTOR MD on Aug 30 2021 3:06AM [facility] DIVISION OF RADIOLOGY * * *Final Report* * * DATE OF EXAM: Aug 29 2021 5:49PM WOX 5354 - XR HUMERUS 2V AP/LAT LT / PROCEDURE REASON: Fall, initial encounter * * * * Physician Interpretation * * * * EXAM: XR HUMERUS 2V AP/LAT LT HISTORY: Fall, initial encounter COMPARISON: None available FINDINGS: Bones are demineralized. Degenerative change at the LEFT shoulder joint with probable calcium hydroxyapatite deposition in the distal rotator cuff. No acute displaced fracture identified. Regional articulation appears maintained. DIVISION OF RADIOLOGY [facility] * * *Final Report* * * DATE OF EXAM: Aug 29 2021 5:49PM WOX 5354 - XR HUMERUS 2V AP/LAT LT / PROCEDURE REASON: Fall, initial encounter * * * * Physician Interpretation * * * * EXAM: XR HUMERUS 2V AP/LAT LT HISTORY: Fall, initial encounter COMPARISON: None available FINDINGS: Bones are demineralized. Degenerative change at the LEFT shoulder joint with probable calcium hydroxyapatite deposition in the distal rotator cuff. No acute displaced fracture identified. Regional articulation appears maintained. IMPRESSION IMPRESSION: No significant acute radiographic abnormality identified. [facility] Transcribe Date/Time: Aug 30 2021 3:05A Dictated by : SOO PASTOR MD This examination was interpreted and the report reviewed and electronically signed by: SOO PASTOR MD on Aug 30 2021 3:06AM EST [facility] XR Humerus - left AP and Lat eralOrdered By: [facility] Provider on 08-30-2021 [facility] No Panel Informationon 08-29 IMPRESSION: Oblique fracture through the diametaphysis of the distal left radius with dorsally displaced fracture fragment on the lateral view at the level the metaphysis. No definite intra-articular extension or dislocation. Play Therapist: [facility] Transcribe Date/Time: Aug 29 2021 5:53P Dictated by : PARISH FULLER MD This examination was interpreted and the report reviewed and electronically signed by: PARISH FULLER MD on Aug 29 2021 5:58PM EST DIVISION OF RADIOLOGY [facility] Radiology Study observation (narrative) [facility] XR Hand - left PA and Latera l and Obliqueon 08-29-2021 * * *Final Report* * * DATE OF EXAM: Aug 29 2021 5:49PM WOX 5345 - XR HAND 3V PA/LAT/OBL LT / PROCEDURE REASON: Fall, initial encounter * * * * Physician Interpretation * * * * EXAMINATION: XR HAND 3V PA/LAT/OBL LT, XR WRIST 3V PA/LAT/OBL LT HISTORY: fell today pain is mostly all in the wrist area, could not hold fingers apart for lateral hand or lean forward to lateral elbow. Fall, initial encounter. TECHNIQUE: XR HAND 3V PA/LAT/OBL LT, XR WRIST 3V PA/LAT/OBL LT Laterality: LEFT Number of different views (projections): 3 M: XB_1 COMPARISON: There are no prior relevant examinations available for comparison within the [facility] Imaging Archives. RESULT: AP, lateral and oblique views of the left hand and wrist demonstrate an oblique fracture through the diametaphysis of the distal left radius with a dorsally displaced fracture fragment. No definite intra-articular extension. The radiocarpal and intercarpal articulations are intact. There is degenerative change with asymmetric joint space narrowing and periarticular osteophytosis involving the distal interphalangeal joints of the second through fifth digits and the interphalangeal joint of the thumb. There is also joint space narrowing, bony eburnation and periarticular osteophytosis of the first metacarpal carpal and triscaphe joints Findings are compatible with osteoarthritis. There is no superimposed erosive process. DIVISION OF RADIOLOGY Provider, [facility] - 08/29/2021 * * *Final Report* * * DATE OF EXAM: Aug 29 2021 5:49PM WOX 5345 - XR HAND 3V PA/LAT/OBL LT / PROCEDURE REASON: Fall, initial encounter * * * * Physician Interpretation * * * * EXAMINATION: XR HAND 3V PA/LAT/OBL LT, XR WRIST 3V PA/LAT/OBL LT HISTORY: fell today pain is mostly all in the wrist area, could not hold fingers apart for lateral hand or lean forward to lateral elbow. Fall, initial encounter. TECHNIQUE: XR HAND 3V PA/LAT/OBL LT, XR WRIST 3V PA/LAT/OBL LT Laterality: LEFT Number of different views (projections): 3 M: XB_1 COMPARISON: There are no prior relevant examinations available for comparison within the [facility] Imaging Archives. RESULT: AP, lateral and oblique views of the left hand and wrist demonstrate an oblique fracture through the diametaphysis of the distal left radius with a dorsally displaced fracture fragment. No definite intra-articular extension. The radiocarpal and intercarpal articulations are intact. There is degenerative change with asymmetric joint space narrowing and periarticular osteophytosis involving the distal interphalangeal joints of the second through fifth digits and the interphalangeal joint of the thumb. There is also joint space narrowing, bony eburnation and periarticular osteophytosis of the first metacarpal carpal and triscaphe joints Findings are compatible with osteoarthritis. There is no superimposed erosive process. IMPRESSION IMPRESSION: Oblique fracture through the diametaphysis of the distal left radius with dorsally displaced fracture fragment on the lateral view at the level the metaphysis. No definite intra-articular extension or dislocation. Play Therapist: CORINNE Transcribe Date/Time: Aug 29 2021 5:53P Dictated by : PARISH FULLER MD This examination was interpreted and the report reviewed and electronically signed by: PARISH FULLER MD on Aug 29 2021 5:58PM EST [facility] XR Wrist - left PA and Later al and Obliqueon 08-29-2021 * * *Final Report* * * DATE OF EXAM: Aug 29 2021 5:49PM WOX 5270 - XR WRIST 3V PA/LAT/OBL LT / PROCEDURE REASON: Fall, initial encounter * * * * Physician Interpretation * * * * EXAMINATION: XR HAND 3V PA/LAT/OBL LT, XR WRIST 3V PA/LAT/OBL LT HISTORY: fell today pain is mostly all in the wrist area, could not hold fingers apart for lateral hand or lean forward to lateral elbow. Fall, initial encounter. TECHNIQUE: XR HAND 3V PA/LAT/OBL LT, XR WRIST 3V PA/LAT/OBL LT Laterality: LEFT Number of different views (projections): 3 M: XB_1 COMPARISON: There are no prior relevant examinations available for comparison within the [facility] Imaging Archives. RESULT: AP, lateral and oblique views of the left hand and wrist demonstrate an oblique fracture through the diametaphysis of the distal left radius with a dorsally displaced fracture fragment. No definite intra-articular extension. The radiocarpal and intercarpal articulations are intact. There is degenerative change with asymmetric joint space narrowing and periarticular osteophytosis involving the distal interphalangeal joints of the second through fifth digits and the interphalangeal joint of the thumb. There is also joint space narrowing, bony eburnation and periarticular osteophytosis of the first metacarpal carpal and triscaphe joints Findings are compatible with osteoarthritis. There is no superimposed erosive process. DIVISION OF RADIOLOGY Provider, [facility] G[facility] - 08/29/2021 * * *Final Report* * * DATE OF EXAM: Aug 29 2021 5:49PM WOX 5270 - XR WRIST 3V PA/LAT/OBL LT / PROCEDURE REASON: Fall, initial encounter * * * * Physician Interpretation * * * * EXAMINATION: XR HAND 3V PA/LAT/OBL LT, XR WRIST 3V PA/LAT/OBL LT HISTORY: fell today pain is mostly all in the wrist area, could not hold fingers apart for lateral hand or lean forward to lateral elbow. Fall, initial encounter. TECHNIQUE: XR HAND 3V PA/LAT/OBL LT, XR WRIST 3V PA/LAT/OBL LT Laterality: LEFT Number of different views (projections): 3 M: XB_1 COMPARISON: There are no prior relevant examinations available for comparison within the [facility] Imaging Archives. RESULT: AP, lateral and oblique views of the left hand and wrist demonstrate an oblique fracture through the diametaphysis of the distal left radius with a dorsally displaced fracture fragment. No definite intra-articular extension. The radiocarpal and intercarpal articulations are intact. There is degenerative change with asymmetric joint space narrowing and periarticular osteophytosis involving the distal interphalangeal joints of the second through fifth digits and the interphalangeal joint of the thumb. There is also joint space narrowing, bony eburnation and periarticular osteophytosis of the first metacarpal carpal and triscaphe joints Findings are compatible with osteoarthritis. There is no superimposed erosive process. IMPRESSION IMPRESSION: Oblique fracture through the diametaphysis of the distal left radius with dorsally displaced fracture fragment on the lateral view at the level the metaphysis. No definite intra-articular extension or dislocation. Play Therapist: [facility] Transcribe Date/Time: Aug 29 2021 5:53P Dictated by : PARISH FULLER MD This examination was interpreted and the report reviewed and electronically signed by: PARISH FULLER MD on Aug 29 2021 5:58PM [facility] Valproic Acid /Depdarby dooley 12-12-2020 Valproic Acid 53.2 ug/mL Normal 50.0-100.0 [facility] Comment on above: Performed By: #### V ALPR #### [facility] [address] [place] [address] Valproic Acid /Depakene Leve brooks 12-09-2020 Valproic Acid 32.2 ug/mL Low 50.0-100.0 [facility] Comment on above: Performed By: #### V ALPR #### [facility] [address] [place] [address] Acetaminophenon 12-05-2020 Acetaminophen [Mass/Vol] <5 Low 10-30 [facility] Comment on above: Performed By: #### A CETM #### [facility] [address] [place] [address] Alcoholon 12-05-2020 Ethanol [Mass/Vol] Not indicated Normal [facility] Comment on above: Performed By: #### A LCOH #### [facility] [address] [place] [address] Ethanol [Mass/Vol] mg/dL Normal [facility] Comment on above: Performed By: #### A LCOH #### [facility] [address] [place] [address] CBC With Platelet and Differ entialon 12-05-2020 Basophils (Bld) [#/Vol] 0.1 10*3/uL Normal 0.0-0.2 [facility] Comment on above: Performed By: #### C BCWD #### [facility] [address] [place] [address] Basophils/100 WBC (Bld) 0.7 % Normal [facility] Comment on above: Performed By: #### C BCWD #### [facility] [address] [place] [address] Eosinophils (Bld) [#/Vol] 0.1 10*3/uL Normal 0.0-0.7 [facility] Comment on above: Performed By: #### C BCWD #### [facility] [address] [place] [address] Eosinophils/100 WBC (Bld) 1.1 % Normal [facility] Comment on above: Performed By: #### C BCWD #### [facility] [address] [place] [address] Erythrocyte distribution width (RBC) [Ratio] 14.4 % Normal 11.5-14.5 [facility] Comment on above: Performed By: #### C BCWD #### [facility] [address] [place] [address] Hematocrit (Bld) [Volume fraction] 40.2 % Normal 37.0-47.0 [facility] Comment on above: Performed By: #### C BCWD #### [facility] [address] [place] [address] Hemoglobin (Bld) [Mass/Vol] 13.6 g/dL Normal 12.0-16.0 [facility] Comment on above: Performed By: #### C BCWD #### [facility] [address] [place] [address] Lymphocytes (Bld) [#/Vol] 2.2 10*3/uL Normal 1.0-4.8 [facility] Comment on above: Performed By: #### C BCWD #### [facility] [address] [place] [address] Lymphocytes/100 WBC (Bld) 24.1 % Normal [facility] Comment on above: Performed By: #### C BCWD #### [facility] [address] [place] [address] MCH (RBC) [Entitic mass] 32.2 pg Critically high 27.0-31.3 [facility] Comment on above: Performed By: #### C BCWD #### [facility] [address] [place] [address] MCHC (RBC) [Mass/Vol] 33.9 % Normal 33.0-37.0 [facility] Comment on above: Performed By: #### C BCWD #### [facility] [address] [place] [address] MCV (RBC) [Entitic vol] 94.8 fL Normal 82.0-100.0 [facility] Comment on above: Performed By: #### C BCWD #### [facility] [address] [place] [address] Monocytes (Bld) [#/Vol] 0.7 10*3/uL Normal 0.2-0.8 [facility] Comment on above: Performed By: #### C BCWD #### [facility] [address] [place] [address] Monocytes/100 WBC (Bld) 7.5 % Normal [facility] Comment on above: Performed By: #### C BCWD #### [facility] [address] [place] [address] Neutrophils (Bld) [#/Vol] 6.1 10*3/uL Normal 1.4-6.5 [facility] Comment on above: Performed By: #### C BCWD #### [facility] [address] [place] [address] Neutrophils/100 WBC (Bld) 66.6 % Normal [facility] Comment on above: Performed By: #### C BCWD #### [facility] [address] [place] [address] Platelets (Bld) [#/Vol] 456 10*3/uL Critically high 130-400 [facility] Comment on above: Performed By: #### C BCWD #### [facility] [address] [place] [address] RBC (Bld) [#/Vol] 4.24 10*6/uL Normal 4.20-5.40 [facility] Comment on above: Performed By: #### C BCWD #### [facility] [address] [place] [address] WBC (Bld) [#/Vol] 9.2 10*3/uL Normal 4.8-10.8 [facility] Comment on above: Performed By: #### C BCWD #### [facility] [address] [place] [address] CKMB and Relative Percenton 12-05-2020 CK.MB [Mass/Vol] 6.7 ng/mL Critically high 0.0-3.8 [facility] Comment on above: Performed By: #### M B #### [facility] [address] [place] [address] CK.MB [Mass/Vol] 2.3 % Normal 0.0-3.5 [facility] Comment on above: Performed By: #### M B #### [facility] [address] [place] [address] COVID-19on 12-05-2020 COVID-19, NAAT Not Detected Normal Not Detect [facility] Comment on above: Order Comment: ORDER WAS CANCELLED 12/05/2020 17:58, Cancelled: In-house testing. Result Comment: Rapi d NAAT: Negative results should be treated as presumptive and, if inconsistent with clinical signs and symptoms or necessary for patient management, should be tested with an alternative molecular assay. Negative results do not preclude SARS-CoV-2 infection and should not be used as the sole basis for patient management decisions. This test has been authorized by the FDA under an Emergency Use Authorization (EUA) for use by authorized laboratories. Fact sheet for Healthcare Providers: https://www.fda.gov/media/275036/download Fact sheet for Patients: https://www.fda.gov/media/474753/download METHODOLOGY: Isothermal Nucleic Acid Amplification Performed By: #### V ALPR #### [facility] [address] [place] [address] Comprehensive Metabolic Pane brooks 12-05-2020 Anion gap [Moles/Vol] 9 mmol/L Normal 9-15 [facility] Comment on above: Performed By: #### C MP #### [facility] [address] [place] [address] Albumin [Mass/Vol] 4.0 g/dL Normal 3.5-4.6 [facility] Comment on above: Performed By: #### C MP #### [facility] [address] [place] [address] ALP [Catalytic activity/Vol] 90 U/L Normal 40-130 [facility] Comment on above: Performed By: #### C MP #### [facility] [address] [place] [address] ALT [Catalytic activity/Vol] 29 U/L Normal 0-33 [facility] Comment on above: Performed By: #### C MP #### [facility] [address] [place] [address] AST [Catalytic activity/Vol] 34 U/L Normal 0-35 [facility] Comment on above: Performed By: #### C MP #### [facility] [address] [place] [address] Bilirubin [Mass/Vol] 0.3 mg/dL Normal 0.2-0.7 [facility] Comment on above: Performed By: #### C MP #### [facility] [address] [place] [address] Calcium [Mass/Vol] 9.7 mg/dL Normal 8.5-9.9 [facility] Comment on above: Performed By: #### C MP #### [facility] [address] [place] [address] Chloride [Moles/Vol] 97 mmol/L Normal 95-107 [facility] Comment on above: Performed By: #### C MP #### [facility] [address] [place] [address] CO2 [Moles/Vol] 29 mmol/L Normal 20-31 [facility] Comment on above: Performed By: #### C MP #### [facility] [address] [place] [address] Creatinine [Mass/Vol] 0.79 mg/dL Normal 0.50-0.90 [facility] Comment on above: Performed By: #### C MP #### [facility] [address] [place] [address] GFR/1.73 sq M predicted among blacks MDRD (S/P/Bld) [Vol rate/Area] mL/min/{1.73_m2} Normal >60 [facility] Comment on above: Result Comment: >60 mL/min/1.73m2 EGFR, calc. for ages 18 and older using the MDRD formula (not corrected for weight), is valid for stable renal function. Performed By: #### C MP #### [facility] [address] [place] [address] GFR/1.73 sq M.predicted MDRD (S/P/Bld) [Vol rate/Area] mL/min/{1.73_m2} Normal >60 [facility] Comment on above: Result Comment: >60 mL/min/1.73m2 EGFR, calc. for ages 18 and older using the MDRD formula (not corrected for weight), is valid for stable renal function. Performed By: #### C MP #### [facility] [address] [place] [address] Globulin (S) [Mass/Vol] 3.2 g/dL Normal 2.3-3.5 [facility] Comment on above: Performed By: #### C MP #### [facility] [address] [place] [address] Glucose [Mass/Vol] 77 mg/dL Normal 70-99 [facility] Comment on above: Performed By: #### C MP #### [facility] [address] [place] [address] Potassium [Moles/Vol] 4.4 mmol/L Normal 3.4-4.9 [facility] Comment on above: Performed By: #### C MP #### [facility] [address] [place] [address] Protein [Mass/Vol] 7.2 g/dL Normal 6.3-8.0 [facility] Comment on above: Performed By: #### C MP #### [facility] [address] [place] [address] Sodium [Moles/Vol] 135 mmol/L Normal 135-144 [facility] Comment on above: Performed By: #### C MP #### [facility] [address] [place] [address] Urea nitrogen [Mass/Vol] 22 mg/dL Normal 8-23 [facility] Comment on above: Performed By: #### C MP #### [facility] [address] [place] [address] Creatine Kinaseon 12-05-2020 CK [Catalytic activity/Vol] 288 U/L Critically high 0-170 [facility] Comment on above: Performed By: #### C PK #### [facility] [address] [place] [address] Lipid Panelon 12-05-2020 Cholesterol [Mass/Vol] 150 mg/dL Normal 0-199 [facility] Comment on above: Result Comment: ATP III Cholesterol classification is Desirable. Performed By: #### L IPID #### [facility] [address] [place] [address] Cholesterol in HDL [Mass/Vol] 39 mg/dL Low 40-59 [facility] Comment on above: Result Comment: ATP III HDL Cholestrol Classification is low. Expected Values: Males: >55 = No Risk 35-55 = Moderate Risk <35 = High Risk Females: >65 = No Risk 45-65 = Moderate Risk <45 = High Risk NCEP Guidelines: Third Report February 2001 >59 = negative risk factor for CHD <40 = major risk factor for CHD Performed By: #### L IPID #### [facility] [address] [place] [address] Cholesterol in LDL [Mass/Vol] 68 mg/dL Normal 0-129 [facility] Comment on above: Result Comment: ATP III LDL Classification is Optimal. Performed By: #### L IPID #### [facility] [address] [place] [address] Triglyceride [Mass/Vol] 217 mg/dL Critically high 0-150 [facility] Comment on above: Result Comment: ATP III Triglycerides Classification is High. Performed By: #### L IPID #### [facility] [address] [place] [address] Salicylateon 12-05-2020 Salicylate <0.3 Low 15.0-30.0 [facility] Comment on above: Result Comment: Anti -pyretic: 3.0-10.0 mg/dL Anti-inflammatory: 15.0-30.0 mg/dL Toxic: >30.0 mg/dL Performed By: #### V ALPR #### [facility] [address] [place] [address] TSH w/out Reflexon TSH Qn 1.580 uIU/mL Normal 0.440-3.86 [facility] Comment on above: Performed By: #### V ALPR #### [facility] [address] [place] [address] UR Drugs of Abuse Panelon Drug Screen Comment see below Normal [facility] Comment on above: Result Comment: This method is a screening test to detect only these drug classes as part of a medical workup. Confirmatory testing by another method should be ordered if clinically indicated. Performed By: #### U DRGS #### [facility] [address] [place] [address] UR Amphetamines Screen Negative Normal Negative < [facility] Comment on above: Performed By: #### U DRGS #### [facility] [address] [place] [address] UR Barbiturates Screen Negative Normal Negative < [facility] Comment on above: Performed By: #### U DRGS #### [facility] [address] [place] [address] UR Benzo Screen Negative Normal Negative < [facility] Comment on above: Performed By: #### U DRGS #### [facility] [address] [place] [address] UR Cannabinoids Screen Negative Normal Negative < [facility] Comment on above: Performed By: #### U DRGS #### [facility] [address] [place] [address] UR Cocaine Screen Negative Normal Negative < [facility] Comment on above: Performed By: #### U DRGS #### [facility] [address] [place] [address] UR Methadone Screen Negative Normal Negative < [facility] Comment on above: Performed By: #### U DRGS #### [facility] [address] [place] [address] UR Opiates Screen Negative Normal Negative < [facility] Comment on above: Performed By: #### U DRGS #### [facility] [address] [place] [address] UR Oxycodone Screen Negative Normal Negative < [facility] Comment on above: Performed By: #### U DRGS #### [facility] [address] [place] [address] UR PCP Screen Negative Normal Negative < [facility] Comment on above: Performed By: #### U DRGS #### [facility] [address] [place] [address] UR Propoxyphene Screen Negative Normal Negative < [facility] Comment on above: Performed By: #### U DRGS #### [facility] [address] [place] [address] Valproic Acid /Depakene Leve brooks 12-05-2020 Valproic Acid 87.5 ug/mL Normal 50.0-100.0 [facility] Comment on above: Performed By: #### V ALPR #### [facility] [address] [place] [address] Chart Updateon 10-03-2020 Chart Update Chart Update Patient had been scheduled for upper endoscopy today. Upon presenting to the outpatient department, her blood pressure was markedly elevated. Anesthesia canceled the procedure and the patient was sent to the emergency room for evaluation. Signatures Electronically signed by : Herlinda Mayer DO; Oct 03 2020 10:36AM EST (Author) Normal [employer] Chart Updateon 09-27-2020 Chart Update Diagnoses/Problems Chief complaint: Chart Update Chief complaint: Chronic reflux and epigastric pain History: 70-year-old female seen regarding chronic reflux and epigastric pain. She's been on omeprazole. Allergies to medications are updated Review of systems: Gen.: Denies fever or weight loss Cardiovascular: Denies chest pain or palpitations Pulmonary: Denies shortness of breath or coughing Gastrointestinal: Denies present abdominal pain or distention Physical exam: Gen.: Awake and oriented Cardiovascular: Regular without murmur Pulmonary: Clear anteriorly Abdomen: Soft, nondistended Impression: 1. Chronic reflux 2. Epigastric pain Recommendations: 1. Upper endoscopy is recommended. The procedure and sedation were discussed including but not limited to risk of bleeding, perforation and reaction to medication. The office endoscopy forms were reviewed and signed. The patient was instructed to bring someone to drive home after the test. All the patient's questions were answered. Signatures Electronically signed by : Herlinda Mayer DO; Sep 27 2020 8:58AM EST (Author) Normal [employer] Initial Visit (Gastroenterol ogy)on 08-03-2020 Initial Visit (Gastroenterology) Diagnoses/Problems Assessed Chronic GERD (530.81) (K21.9) Current smoker (305.1) (F17.200) 1/2 PPD History of crack cocaine use (305.63) (Z87.898) 2009 Chronic epigastric pain (789.06,338.29) (R10.13,G89.29) Orders Chronic epigastric pain, Chronic GERD Endoscopy - Upper GI; Status:Hold For - Scheduling; Requested for:03Aug2020; Perform:[facility]; Due:01Nov2020;Ordered; For:Chronic epigastric pain, Chronic GERD; Ordered By:Magalie Rangel; Patient competent to provide consent? : Yes-pt mentally competent to provide consent SocHx: Current smoker Tobacco Use Screening; Status:Complete; Done: 03Aug2020 Perform:Not Applicable;Ordered; For:SocHx: Current smoker; Ordered By:Sayda Tipton; Tobacco Use Screening; Status:Complete; Done: 03Aug2020 Perform:Not Applicable;Ordered; For:SocHx: Current smoker; Ordered By:Magalie Rangel; Patient Discussion/Summary 1. The differential diagnosis of the patient?s symptoms was discussed, and an upper endoscopy examination was recommended. The procedure and sedation were discussed including but not limited to risks of bleeding, perforation and reaction to medication including cardiopulmonary events. The patient was instructed on not being able to drive the day of the exam after being sedated. All of the patient?s questions were answered. 2. The patient appears medically stable for sedation and endoscopy. To be scheduled at [facility]. 3. Continue omeprazole 40 mg once daily on an empty stomach. 4. Lifestyle changes to help alleviate heartburn/reflux were discussed. These include avoiding spicy and greasy foods, tomato based products, mint and caffeine. Alcohol and smoking should be avoided. Patient should keep at least 3 hours between eating and going to sleep. Being of a normal weight helps decrease heartburn symptoms. Chief Complaint An interactive audio and video telecommunication system which permits real time communications between the patient (at the originating site) and provider (at the distant site) was utilized to provide this telehealth service. Verbal consent was requested and obtained from JACKLYN POWELL on this date, 08/03/2020 10:30 AM , for a telehealth visit. GERD History of Present [id number] female seen today via virtual visit as a new patient for GERD. Patient states she was diagnosed with severe gastroenteritis with EGD in 2018 by [facility] in [place]. She states she was on 5 different medications to treat this and is now only taking omeprazole 40 mg in the morning. Over the last 1 year, she complains of moderate to severe aching epigastric pain occurring every other day, each episode lasting 1 hour on average. Eating exacerbates her pain as well as drinking caffeine. Pain is typically self resolving but does improve with Tums. There is no associated nausea or vomiting but she does report a decrease in appetite with an approximate 20 pound weight loss in the last 2 months. She has no dysphagia or odynophagia. She is denying heartburn or regurgitation. She denies anti-inflammatory use. There has been no change in bowel habits, melena, or hematochezia. She reports a personal history of colon polyps but a normal colonoscopy in 2019 also with [facility]. There is a family history colon cancer. She reports a history of anemia and is on iron therapy. This is monitored by her PCP, Dr. Baird. Review of Systems Const: Reports fatigue and weight loss. Denies fever. CV: Denies chest pain, pacemaker, palpitations and valvular heart disease. Resp: Denies cough, sleep apnea, SOB and snoring. GI: Denies symptoms other than stated above. Musculo: Denies joint pain and muscle pain. Skin: Denies hives and rash. Neuro: Reports history epilepsy, no seizure since starting Depakote 30 years ago. Denies stroke. Psych: History of bipolar 1. Denies anxiety and depression. Endocrine: Denies intolerance to cold, hot flashes and impaired glucose tolerance. Rigoberto/Lymph: Denies anemia, blood transfusions, chemotherapy, enlarged lymph nodes and radiation treatment of any kind. Active Problems Problems Chronic epigastric pain (789.06,338.29) (R10.13,G89.29) Chronic GERD (530.81) (K21.9) Past Medical History Problems History of Bipolar 1 disorder (296.7) (F31.9) History of Epilepsy (345.90) (G40.909) History of anemia (V12.3) (Z86.2) History of colonic polyps (V12.72) (Z86.010) Denied: History of complications due to general anesthesia History of gastroesophageal reflux (GERD) (V12.79) (Z87.19) History of hyperlipidemia (V12.29) (Z86.39) History of hypertension (V12.59) (Z86.79) Surgical History Problems History of section X3 History of Cholecystectomy 2018 History of Colonoscopy [facility]; 2011 - POLYPS, 2019 - NORMAL History of Esophagogastroduodenoscopy [facility] 2018 - GASTROENTERITIS History of Hysterectomy W/ BSO Family History Mother Family history of Alive and well Father Family history of Alive and well Brother Family history of malignant neoplasm of colon (V16.0) (Z80.0) diagnosed in his 40's Social History Problems Caffeine use (V49.89) (Z78.9) 1 CUP OF COFFEE A DAY Current diet HEALTHY WELL BALANCED Current smoker (305.1) (F17.200) 1/2 PPD Denies alcohol consumption (V49.89) (Z78.9) Does not have living will History of crack cocaine use (305.63) (Z87.898) 2009 Denied: History of tattoo Allergies Medication Fanapt TABS Recorded By: Sayda Tipton; 08/03/2020 10:21:56 AM Invega Recorded By: Sayda Tipton; 08/03/2020 10:21:07 AM Slo-Bid Gyrocaps Recorded By: Sayda Tipton; 08/03/2020 10:21:07 AM trazodone Recorded By: Sayda Tipton; 08/03/2020 10:21:07 AM Current Meds Medication NameInstruction ARIPiprazole 5 MG Oral TabletTAKE 1 TABLET DAILY. Calcium 600 MG Oral TabletTAKE 1 TABLET DAILY. Depakote 500 MG Oral Tablet Delayed ReleaseTAKE 3 TABLETS AT BEDTIME. Ferrous Sulfate 325 (65 Fe) MG Oral TabletTAKE 1 TABLET DAILY DIRECTED. hydroCHLOROthiazide 12.5 MG Oral CapsuleTAKE 1 CAPSULE ONCE DAILY. lamoTRIgine 200 MG Oral TabletTAKE 1 TABLET DAILY. Lisinopril 40 MG Oral TabletTAKE 1 TABLET DAILY DIRECTED. Metoprolol Succinate ER 50 MG Oral Tablet Extended Release 24 HourTAKE 1 TABLET DAILY. Omeprazole 40 MG Oral Capsule Delayed ReleaseTAKE 1 CAPSULE DAILY in the morning on an empty stomach Pravastatin Sodium 40 MG Oral TabletTAKE 1 TABLET DAILY DIRECTED. Prazosin HCl - 2 MG Oral CapsuleTAKE 1 CAPSULE TWICE DAILY. Sublocade 100 MG/0.5ML Subcutaneous Solution Prefilled Syringe Vitals Vital Signs Recorded: [id number] 10:37AMRecorded: [id number] 10:21AM Height5 ft 2 in5 ft 2 in Ayrhdi862 lb 195 lb BMI Qpckovtcos90.6735.67 BSA Calculated1.891.89 Physical Exam Patient is alert and oriented and in no apparent distress. Patient is speaking in complete sentences without conversational dyspnea. No observed pallor or jaundice. Signatures Electronically signed by : Magalie Rangel PA-C; Aug 03 2020 11:18AM EST (Author) Normal [employer] Erythrocyte distribution wid th standard deviationon 03-08-2019 Erythrocyte distribution width (RBC) [Entitic vol] 46.3 fL 35.1-43.9 [facility] Work Phone: Laboratory - Hematology and Cell countson 03-08-2019 Erythrocyte distribution width (RBC) [Ratio] 13.7 % 11.6-14.6 [facility] Work Phone: No Panel Informationon 03-08 13.7 % 11.6-14.6 [facility] Work Phone: Total cell counton 9 Cells counted Molgen (Bld/Tiss) [#] Not Reportable [facility] Work Phone: Ammoniaon 01-04-2019 Ammonia mass conc (P) 49 umol/L Normal 11-51 [facility] Valproic Acid /Depakene Leve brooks 01-04-2019 Protein mass conc 91.4 ug/mL Normal 50.0-100.0 [facility] Ammoniaon 01-01-2019 Ammonia mass conc (P) 46 umol/L Normal 11-51 [facility] Lipid Panelon 01-01-2019 Cholesterol in HDL mass conc 30 mg/dL Low 40-59 [facility] Comment on above: Result Comment: ATP III HDL Cholestrol Classification is low. Expected Values: Males: >55 = No Risk 35-55 = Moderate Risk <35 = High Risk Females: >65 = No Risk 45-65 = Moderate Risk <45 = High Risk NCEP Guidelines: Third Report February 2001 >59 = negative risk factor for CHD <40 = major risk factor for CHD Cholesterol in LDL mass conc 55 mg/dL Normal 0-129 [facility] Comment on above: Result Comment: ATP III LDL Classification is Optimal. Cholesterol mass conc 112 mg/dL Normal 0-199 [facility] Comment on above: Result Comment: ATP III Cholesterol classification is Desirable. Triglyceride mass conc 137 mg/dL Normal 0-150 [facility] Comment on above: Result Comment: ATP III Triglycerides Classification is Normal. Effective: 11/25/2018 New reference range for this analyte has been established. VITAMIN Don 01-01-2019 VITAMIN D 21.2 ng/mL Low 30.0-100.0 [facility] Comment on above: Result Comment: (20- 30 ng/mL) Insufficiency This assay accurately quantifies the sum of vitamin D3, 25-Hydroxy and vitamin D2, 25-Hyroxy. Vitamin B12 and Folateon Cobalamin (Vitamin B12) mass conc 491 pg/mL Normal 232-1245 [facility] Folate 13.1 ng/mL Normal 7.3-26.1 [facility] Comment on above: Result Comment: As o f 16, the methodology has changed. Results from this methodology should not be compared with results from previous methodology. 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 A point mutation within exon 14 of the JAK2 gene ([id number]) encoding a valine to phenylalanine substitution at position 617 of the JAK2 protein (V617F) has been identified in most patients with polycythemiavera, and in about half of those with either essential thrombocythemia or idiopathic myelofibrosis. The V617F has also been detected, although infrequently, in other myeloid disorders such as chronic myelomonocytic leukemia and chronic neutrophilic luekemia. V617F is an acquired mutation that alters a highly conserved valine present in the negative regulatory JH2 domain of the JAK2 protein and ispredicted to dysregulate kinase activity.Methodology:Total genomic DNA was extracted and subjected to TaqMan real-time PCR amplification/detection. Two amplification products per sample were monitored by real-time PCR using primers/probes specific to JAK2 wild type (WT) and JAK2 mutant V617F. The [employer] Absolute Quantitation software will compare the patient specimen valuse to the standardcurves and generate percent values for wild type and mutant type.In vitro studies have indicated that this assay has an analytical sensitivity of 1%.References:Jorge LUNDY, Robert ARMSTRONG, Oz PJ, et al. Acquired mutation of the tyrosine kinase JAK2 in human myeloproliferative disorders. Lancet. 2004Jan 04; 365(7962):6436-6931.Isaías Fuchs, Torey V, Jacinda Richter JP. A unique clonal JAK2 mutation leading to constitutive signaling causes polycythaemia vera. Nature. 2005 Jan 28; 138(3381):5168-8148.Aracely R, Alessandro F, Meera , et al. A ywsc-jn-nsflxgxn mutation of JAK2 in myeloproliferative disorders. N Engl J Med. 2005 Feb 13; 352(22):0440-1768.Director Review:Ashutosh Almanza MD, PhD Director, [facility] OncologySh[facility] Biology and [place]ology[place], [place] [phone]: This test was developed and its performance characteristicsdetermined by [facility]. It has not been cleared or approvedby the Food and Drug Administration.Reflex: Reflex to JAK2 Exon 12-15 Mutation Analysis is not indicated.Extraction Completed TESTING PERFORMED AT [facility]. ORIGINAL REPORT ON FILE IN LAB CONTAINS ADDITIONAL TEST SITE INFORMATION. __ Total Iron Binding Capacity 369 ug/dL 250-450 [facility] Work Phone: [phone] ug/dL 250-450 [facility] Work Phone: [phone] See comment [facility] Work Phone: [phone] Serum or plasma ferritin ilene surement (mass/volume)on 05-24-2018 Ferritin [Mass/Vol] 15 ng/mL 8-252 [facility] Work Phone: [phone] Serum or plasma iron saturat ion measurement (mass fraction)on 05-24-2018 Iron saturation [Mass fraction] 10.8 % 15.0-55.0 [facility] Work Phone: [phone] Bacteria identified Cx Nom ( U) Urine culture Culture exhibits no growth. [facility] Work Phone: [phone] Culture, urine Klebsiella pneumonia e sp pneum [facility] Work Phone: Culture, urine Positive [facility] Work Phone: Culture, urine Bacteria identified Cx Nom (U) Klebsiella pneumoniae sp pneum [facility] Work Phone: Bacteria identified Cx Nom (U) Culture exhibits no growth. [facility] Work Phone: Bacteria identified Cx Nom (U) Positive [facility] Work Phone: Laboratory - Microbiology an d Antimicrobial susceptibility Bacteria identified Cx Nom (Bld) No growth in 5 days. [facility] Work Phone: No Panel Information No growth in 5 days. [facility] Work Phone: Vital Signs Date Time Vital Sign Value Performing Clinician Facility 09-03-2023 07:11-0500 Body height 152.4 cm Kareem Hartmann MD Work Phone: [facility] 09-03-2023 07:11-0500 Body mass index (BMI) [Ratio] 43.51 kg/m2 Kareem Hartmann MD Work Phone: [facility] 09-03-2023 07:11-0500 Body weight 101.06 kg Kareem Hartmann MD Work Phone: [facility] 09-03-2023 07:11-0500 Diastolic blood pressure 106 mm[Hg] Kareem Hartmann MD Work Phone: [facility] 09-03-2023 07:11-0500 Systolic blood pressure 169 mm[Hg] Kareem Hartmann MD Work Phone: [facility] 08-10-2023 08:11-0400 Body height 152.4 cm Kareem Hartmann MD Work Phone: [facility] 08-10-2023 08:11-0400 Body mass index (BMI) [Ratio] 43.36 kg/m2 Kareem Hartmann MD Work Phone: [facility] 08-10-2023 08:11-0400 Body weight 100.7 kg Kareem Hartmann MD Work Phone: [facility] 08-10-2023 08:11-0400 Diastolic blood pressure 88 mm[Hg] Kareem Hartmann MD Work Phone: [facility] 08-10-2023 08:11-0400 Heart rate 86 /min Kareem Hartmann MD Work Phone: [facility] [facility] 08-10-2023 08:11-0400 Systolic blood pressure 150 mm[Hg] Kareem Hartmann MD Work Phone: [facility] 07-09-2023 09:28-0400 Body height 152.4 cm Kareem Hartmann MD Work Phone: [facility] 07-09-2023 09:28-0400 Body mass index (BMI) [Ratio] 44.18 kg/m2 Kareem Hartmann MD Work Phone: [facility] 07-09-2023 09:28-0400 Body weight 102.6 kg Kareem Hartmann MD Work Phone: [facility] [employer] 07-09-2023 09:28-0400 Diastolic blood pressure 84 mm[Hg] Kareem Hartmann MD Work Phone: [facility] [employer] 07-09-2023 09:28-0400 Heart rate 75 /min Kareem Hartmann MD Work Phone: [facility] [employer] 07-09-2023 09:28-0400 Respiratory rate 16 /min Kareem Hartmann MD Work Phone: [facility] [employer] 07-09-2023 09:28-0400 Systolic blood pressure 142 mm[Hg] Kareem Hartmann MD Work Phone: [facility] [employer] 06-25-2023 09:06-0400 Body height 152.4 cm Kenzie Paul MD Work Phone: [facility] [employer] 06-25-2023 09:06-0400 Body mass index (BMI) [Ratio] 43.28 kg/m2 Kenzie Paul MD Work Phone: [facility] [employer] 06-25-2023 09:06-0400 Body weight 100.52 kg Kenzie Paul MD Work Phone: [facility] [employer] 06-25-2023 09:06-0400 Diastolic blood pressure 88 mm[Hg] Kenzie Paul MD Work Phone: [facility] [employer] Comment on above: Pt didn't take her BP med yet. 06-25-2023 09:06-0400 Heart rate 80 /min Kenzie Paul MD Work Phone: [facility] [employer] 06-25-2023 09:06-0400 Respiratory rate 18 /min Kenzie Paul MD Work Phone: [facility] [employer] 06-25-2023 09:06-0400 SaO2% (BldA) [Mass fraction] 93 % Kenzie Paul MD Work Phone: [facility] [employer] Comment on above: 06-25-2023 09:06-0400 Systolic blood pressure 157 mm[Hg] Kenzie Paul MD Work Phone: [facility] [employer] Comment on above: Pt didn't take her BP med yet. 06-17-2023 11:17-0400 Body height 152.4 cm Ashley Mesa MD Work Phone: [facility] [employer] 06-17-2023 11:17-0400 Body mass index (BMI) [Ratio] 43.55 kg/m2 Ashley Mesa MD Work Phone: [facility] [employer] 06-17-2023 11:17-0400 Body weight 101.15 kg Ashley Mesa MD Work Phone: [facility] [employer] 06-17-2023 11:17-0400 Diastolic blood pressure 91 mm[Hg] Ashley Mesa MD Work Phone: [facility] [employer] 06-17-2023 11:17-0400 Heart rate 82 /min Ashley Mesa MD Work Phone: [facility] [employer] 06-17-2023 11:17-0400 Systolic blood pressure 148 mm[Hg] Ashley Mesa MD Work Phone: [facility] [employer] 06-16-2023 09:21-0400 Diastolic blood pressure 85 mm[Hg] Susie Ledezma MD Work Phone: [facility] [employer] 06-16-2023 09:21-0400 Heart rate 65 /min Susie Ledezma MD Work Phone: [facility] [employer] 06-16-2023 09:21-0400 Respiratory rate 18 /min Susie Ledezma MD Work Phone: [facility] [employer] 06-16-2023 09:21-0400 SaO2% (BldA) [Mass fraction] 97 % Susie Ledezma MD Work Phone: [facility] [employer] 06-16-2023 09:21-0400 Systolic blood pressure 163 mm[Hg] Susie Ledezma MD Work Phone: [facility] [employer] 06-16-2023 08:53-0400 Body temperature 97.5 [degF] Susie Ledezma MD Work Phone: [facility] [employer] 06-16-2023 08:02-0400 Body height 152.4 cm Susie Ledezma MD Work Phone: [facility] [employer] 06-16-2023 08:02-0400 Body mass index (BMI) [Ratio] 39.06 kg/m2 Susie Ledezma MD Work Phone: [facility] [employer] 06-16-2023 08:02-0400 Body weight 90.72 kg Susie Ledezma MD Work Phone: [facility] [employer] 05-14-2023 13:13-0400 Body height 152.4 cm Kareem Hartmann MD Work Phone: [facility] [employer] 05-14-2023 13:13-0400 Body mass index (BMI) [Ratio] 43.63 kg/m2 Kareem Hartmann MD Work Phone: [facility] [employer] 05-14-2023 13:13-0400 Body weight 101.33 kg Kareem Hartmann MD Work Phone: [facility] [employer] 05-14-2023 13:13-0400 Diastolic blood pressure 90 mm[Hg] Kareem Hartmann MD Work Phone: [facility] 05-14-2023 13:13-0400 Heart rate 81 /min Kareem Hartmann MD Work Phone: [facility] 05-14-2023 13:13-0400 Systolic blood pressure 153 mm[Hg] Kareem Hartmann MD Work Phone: [facility] 04-30-2023 10:47-0400 Body height 152.4 cm Susie Ledezma MD Work Phone: [facility] 04-30-2023 10:47-0400 Body mass index (BMI) [Ratio] 42.73 kg/m2 Susie Ledezma MD Work Phone: [facility] 04-30-2023 10:47-0400 Body temperature 97.7 [degF] Susie Ledezma MD Work Phone: [facility] 04-30-2023 10:47-0400 Body weight 99.25 kg Susie Ledezma MD Work Phone: [facility] 04-30-2023 10:47-0400 Diastolic blood pressure 81 mm[Hg] Susie Ledezma MD Work Phone: [facility] 04-30-2023 10:47-0400 Heart rate 75 /min Susie Ledezma MD Work Phone: [facility] 04-30-2023 10:47-0400 Respiratory rate 18 /min Susie Ledezma MD Work Phone: [facility] 04-30-2023 10:47-0400 Systolic blood pressure 121 mm[Hg] Susie Ledezma MD Work Phone: [facility] 10-02-2022 08:15-0500 Body height 157.[address] Leopoldo Baird Work Phone: [facility] Work Phone: 10-02-2022 08:15-0500 Body mass index (BMI) [Ratio] 34.2 kg/m2 Dr. Leopoldo Baird Work Phone: [facility] Work Phone: 10-02-2022 08:15-0500 Body weight 84.[address] Leopoldo Baird Work Phone: [facility] Work Phone: 10-02-2022 08:15-0500 Diastolic blood pressure 97 mm[Hg] Dr. Leopoldo Baird Work Phone: [facility] Work Phone: 10-02-2022 08:15-0500 Heart rate 76 /min Dr. Leopoldo Baird Work Phone: [facility] Work Phone: 10-02-2022 08:15-0500 SaO2% (BldA) [Mass fraction] 92 % Dr. Leopoldo Baird Work Phone: [facility] Work Phone: 10-02-2022 08:15-0500 Systolic blood pressure 170 mm[Hg] Dr. Leopoldo Baird Work Phone: [facility] Work Phone: 09-30-2022 08:22-0500 Body mass index (BMI) [Ratio] 34.2 kg/m2 Dr. Leopoldo Baird Work Phone: [facility] Work Phone: 09-30-2022 08:22-0500 Body temperature 97.6 [degF] Dr. Leopoldo Baird Work Phone: [facility] Work Phone: 09-30-2022 08:22-0500 Body weight 84.[address] Leopoldo Baird Work Phone: [facility] Work Phone: 09-30-2022 08:22-0500 Diastolic blood pressure 102 mm[Hg] Dr. Leopoldo Baird Work Phone: [facility] Work Phone: 09-30-2022 08:22-0500 Heart rate 70 /min Dr. Leopoldo Baird Work Phone: [facility] Work Phone: 09-30-2022 08:22-0500 Respiratory rate 16 /min Dr. Leopoldo Baird Work Phone: [facility] Work Phone: 09-30-2022 08:22-0500 SaO2% (BldA) [Mass fraction] 97 % Dr. Leopoldo Baird Work Phone: [facility] Work Phone: 09-30-2022 08:22-0500 Systolic blood pressure 168 mm[Hg] Dr. Leopoldo Baird Work Phone: [facility] Work Phone: 09-17-2022 08:55-0500 Body mass index (BMI) [Ratio] 32.9 kg/m2 Dr. Leopoldo Baird Work Phone: [facility] Work Phone: 09-17-2022 08:55-0500 Body temperature 97.9 [degF] Dr. Leopoldo Baird Work Phone: [facility] Work Phone: 09-17-2022 08:55-0500 Body weight 81.[address] Leopoldo Baird Work Phone: [facility] Work Phone: 09-17-2022 08:55-0500 Diastolic blood pressure 84 mm[Hg] Dr. Leopoldo Baird Work Phone: [facility] Work Phone: 09-17-2022 08:55-0500 Heart rate 74 /min Dr. Leopoldo Baird Work Phone: [facility] Work Phone: 09-17-2022 08:55-0500 Respiratory rate 14 /min Dr. Leopoldo Baird Work Phone: [facility] Work Phone: 09-17-2022 08:55-0500 SaO2% (BldA) [Mass fraction] 97 % Dr. Leopoldo Baird Work Phone: [facility] Work Phone: 09-17-2022 08:55-0500 Systolic blood pressure 138 mm[Hg] Dr. Leopoldo Baird Work Phone: [facility] Work Phone: 08-05-2022 08:20-0400 Body mass index (BMI) [Ratio] 33.8 kg/m2 Dr. Leopoldo Baird Work Phone: [facility] Work Phone: 08-05-2022 08:20-0400 Body temperature 96.4 [degF] Dr. Leopoldo Baird Work Phone: [facility] Work Phone: 08-05-2022 08:20-0400 Body weight 83.[address] Leopoldo Baird Work Phone: [facility] Work Phone: 08-05-2022 08:20-0400 Diastolic blood pressure 98 mm[Hg] Dr. Leopoldo Baird Work Phone: [facility] Work Phone: 08-05-2022 08:20-0400 Heart rate 73 /min Dr. Leopoldo Baird Work Phone: [facility] Work Phone: 08-05-2022 08:20-0400 Respiratory rate 16 /min Dr. Leopoldo Baird Work Phone: [facility] Work Phone: 08-05-2022 08:20-0400 SaO2% (BldA) [Mass fraction] 91 % Dr. Leopoldo Baird Work Phone: [facility] Work Phone: 08-05-2022 08:20-0400 Systolic blood pressure 140 mm[Hg] Dr. Leopoldo Baird Work Phone: [facility] Work Phone: 08-01-2022 15:53-0400 Body mass index (BMI) [Ratio] 32.9 kg/m2 Dr. Leopoldo Baird Work Phone: [facility] Work Phone: 08-01-2022 15:53-0400 Body temperature 97.2 [degF] Dr. Leopoldo Baird Work Phone: [facility] Work Phone: 08-01-2022 15:53-0400 Body weight 81.[address] Leopoldo Baird Work Phone: [facility] Work Phone: 08-01-2022 15:53-0400 Diastolic blood pressure 76 mm[Hg] Dr. Leopoldo Baird Work Phone: [facility] Work Phone: 08-01-2022 15:53-0400 Heart rate 68 /min Dr. Leopoldo Baird Work Phone: [facility] Work Phone: 08-01-2022 15:53-0400 Respiratory rate 14 /min Dr. Leopoldo Baird Work Phone: [facility] Work Phone: 08-01-2022 15:53-0400 SaO2% (BldA) [Mass fraction] 94 % Dr. Leopoldo Baird Work Phone: [facility] Work Phone: 08-01-2022 15:53-0400 Systolic blood pressure 150 mm[Hg] Dr. Leopoldo Baird Work Phone: [facility] Work Phone: 07-17-2022 13:40-0400 Body temperature 98.9 [degF] Dr. Leopoldo Baird Work Phone: [facility] Work Phone: 07-17-2022 13:40-0400 Diastolic blood pressure 71 mm[Hg] Dr. Leopoldo Baird Work Phone: [facility] Work Phone: 07-17-2022 13:40-0400 Heart rate 67 /min Dr. Leopoldo Baird Work Phone: [facility] Work Phone: 07-17-2022 13:40-0400 Respiratory rate 14 /min Dr. Leopoldo Baird Work Phone: [facility] Work Phone: 07-17-2022 13:40-0400 SaO2% (BldA) [Mass fraction] 97 % Dr. Leopoldo Baird Work Phone: [facility] Work Phone: 07-17-2022 13:40-0400 Systolic blood pressure 136 mm[Hg] Dr. Leopoldo Baird Work Phone: [facility] Work Phone: 07-17-2022 09:31-0400 Body height 157.[address] Leopoldo Baird Work Phone: [facility] Work Phone: 07-17-2022 09:31-0400 Body mass index (BMI) [Ratio] 34.4 kg/m2 Dr. Leopoldo Baird Work Phone: [facility] Work Phone: 07-17-2022 09:31-0400 Body weight 85.[address] Leopoldo Baird Work Phone: [facility] Work Phone: 07-08-2022 08:19-0400 Body height 157.[address] Leopoldo Baird Work Phone: [facility] Work Phone: 07-08-2022 08:19-0400 Body mass index (BMI) [Ratio] 34.6 kg/m2 Dr. Leopoldo Baird Work Phone: [facility] Work Phone: 07-08-2022 08:19-0400 Body temperature 97.2 [degF] Dr. Leopoldo Baird Work Phone: [facility] Work Phone: 07-08-2022 08:19-0400 Body weight 85.[address] Leopoldo Baird Work Phone: [facility] Work Phone: 07-08-2022 08:19-0400 Diastolic blood pressure 70 mm[Hg] Dr. Leopoldo Baird Work Phone: [facility] Work Phone: 07-08-2022 08:19-0400 Heart rate 74 /min Dr. Leopoldo Baird Work Phone: [facility] Work Phone: 07-08-2022 08:19-0400 Respiratory rate 18 /min Dr. Leopoldo Baird Work Phone: [facility] Work Phone: 07-08-2022 08:19-0400 SaO2% (BldA) [Mass fraction] 95 % Dr. Leopoldo Baird Work Phone: [facility] Work Phone: 07-08-2022 08:19-0400 Systolic blood pressure 160 mm[Hg] Dr. Leopoldo Baird Work Phone: [facility] Work Phone: 07-07-2022 10:13-0400 Body mass index (BMI) [Ratio] 34.2 kg/m2 Dr. Leopoldo Baird Work Phone: [facility] Work Phone: 07-07-2022 10:13-0400 Body temperature 98.2 [degF] Dr. Leopoldo Baird Work Phone: [facility] Work Phone: 07-07-2022 10:13-0400 Body weight 85.[address] Leopoldo Baird Work Phone: [facility] Work Phone: 07-07-2022 10:13-0400 Diastolic blood pressure 88 mm[Hg] Dr. Leopoldo Baird Work Phone: [facility] Work Phone: 07-07-2022 10:13-0400 Heart rate 72 /min Dr. Leopoldo Baird Work Phone: [facility] Work Phone: 07-07-2022 10:13-0400 Respiratory rate 16 /min Dr. Leopoldo Baird Work Phone: [facility] Work Phone: 07-07-2022 10:13-0400 SaO2% (BldA) [Mass fraction] 97 % Dr. Leopoldo Baird Work Phone: [facility] Work Phone: 07-07-2022 10:13-0400 Systolic blood pressure 156 mm[Hg] Dr. Leopoldo Baird Work Phone: [facility] Work Phone: 06-10-2022 08:17-0400 Body height 157.[address] Leopoldo Baird Work Phone: [facility] Work Phone: 06-10-2022 08:17-0400 Body mass index (BMI) [Ratio] 34.4 kg/m2 Dr. Leopoldo Baird Work Phone: [facility] Work Phone: 06-10-2022 08:17-0400 Body temperature 97.9 [degF] Dr. Leopoldo Baird Work Phone: [facility] Work Phone: 06-10-2022 08:17-0400 Body weight 85.[address] Leopoldo Baird Work Phone: [facility] Work Phone: 06-10-2022 08:17-0400 Diastolic blood pressure 74 mm[Hg] Dr. Leopoldo Baird Work Phone: [facility] Work Phone: 06-10-2022 08:17-0400 Heart rate 74 /min Dr. Leopoldo Baird Work Phone: [facility] Work Phone: 06-10-2022 08:17-0400 Respiratory rate 14 /min Dr. Leopoldo Baird Work Phone: [facility] Work Phone: 06-10-2022 08:17-0400 SaO2% (BldA) [Mass fraction] 95 % Dr. Leopoldo Baird Work Phone: [facility] Work Phone: 06-10-2022 08:17-0400 Systolic blood pressure 122 mm[Hg] Dr. Leopoldo Baird Work Phone: [facility] Work Phone: 06-02-2022 10:12-0400 Body height 157.[address] Leopoldo Baird Work Phone: [facility] Work Phone: 06-02-2022 10:12-0400 Body mass index (BMI) [Ratio] 33.5 kg/m2 Dr. Leopoldo Baird Work Phone: [facility] Work Phone: 06-02-2022 10:12-0400 Body temperature 98 [degF] Dr. Leopoldo aBird Work Phone: [facility] Work Phone: 06-02-2022 10:12-0400 Body weight [address] Leopoldo Baird Work Phone: [facility] Work Phone: 06-02-2022 10:12-0400 Diastolic blood pressure 94 mm[Hg] Dr. Leopoldo Baird Work Phone: [facility] Work Phone: 06-02-2022 10:12-0400 Heart rate 73 /min Dr. Leopoldo Baird Work Phone: [facility] Work Phone: 06-02-2022 10:12-0400 Respiratory rate 16 /min Dr. Leopoldo Baird Work Phone: [facility] Work Phone: 06-02-2022 10:12-0400 SaO2% (BldA) [Mass fraction] 97 % Dr. Leopoldo Baird Work Phone: [facility] Work Phone: 06-02-2022 10:12-0400 Systolic blood pressure 160 mm[Hg] Dr. Leopoldo Baird Work Phone: [facility] Work Phone: 05-20-2022 18:15-0400 Body temperature 97.9 [degF] Dr. Leopoldo Baird Work Phone: [facility] Work Phone: 05-20-2022 18:15-0400 Diastolic blood pressure 74 mm[Hg] Dr. Leopoldo Baird Work Phone: [facility] Work Phone: 05-20-2022 18:15-0400 Heart rate 73 /min Dr. Leopoldo Baird Work Phone: [facility] Work Phone: 05-20-2022 18:15-0400 Respiratory rate 16 /min Dr. Leopoldo Baird Work Phone: [facility] Work Phone: 05-20-2022 18:15-0400 SaO2% (BldA) [Mass fraction] 96 % Dr. Leopoldo Baird Work Phone: [facility] Work Phone: 05-20-2022 18:15-0400 Systolic blood pressure 143 mm[Hg] Dr. Leopoldo Baird Work Phone: [facility] Work Phone: 05-20-2022 15:05-0400 Body height 157.[address] Leopoldo Baird Work Phone: [facility] Work Phone: 05-20-2022 15:05-0400 Body mass index (BMI) [Ratio] 34.6 kg/m2 Dr. Leopoldo Baird Work Phone: [facility] Work Phone: 05-20-2022 15:05-0400 Body weight 85.[address] Leopoldo Baird Work Phone: [facility] Work Phone: 05-08-2022 15:13-0400 Body height 157.[address] Leopoldo Baird Work Phone: [facility] Work Phone: 05-08-2022 15:13-0400 Body mass index (BMI) [Ratio] 33.8 kg/m2 Dr. Leopoldo Baird Work Phone: [facility] Work Phone: 05-08-2022 15:13-0400 Body temperature 97.3 [degF] Dr. Leopoldo Baird Work Phone: [facility] Work Phone: 05-08-2022 15:13-0400 Body weight 83.[address] Leopoldo Baird Work Phone: [facility] Work Phone: 05-08-2022 15:13-0400 Diastolic blood pressure 78 mm[Hg] Dr. Leopoldo Baird Work Phone: [facility] Work Phone: 05-08-2022 15:13-0400 Heart rate 72 /min Dr. Leopoldo Baird Work Phone: [facility] Work Phone: 05-08-2022 15:13-0400 Respiratory rate 18 /min Dr. Leopoldo Baird Work Phone: [facility] Work Phone: 05-08-2022 15:13-0400 SaO2% (BldA) [Mass fraction] 95 % Dr. Leopoldo Baird Work Phone: [facility] Work Phone: 05-08-2022 15:13-0400 Systolic blood pressure 128 mm[Hg] Dr. Leopoldo Baird Work Phone: [facility] Work Phone: 05-06-2022 16:10-0400 Body temperature 98 [degF] Dr. Leopoldo Baird Work Phone: [facility] Work Phone: 05-06-2022 16:10-0400 Diastolic blood pressure 69 mm[Hg] Dr. Leopoldo Baird Work Phone: [facility] Work Phone: 05-06-2022 16:10-0400 Heart rate 77 /min Dr. Leopoldo Baird Work Phone: [facility] Work Phone: 05-06-2022 16:10-0400 Respiratory rate 18 /min Dr. Leopoldo Baird Work Phone: [facility] Work Phone: 05-06-2022 16:10-0400 SaO2% (BldA) [Mass fraction] 95 % Dr. Leopoldo Baird Work Phone: [facility] Work Phone: 05-06-2022 16:10-0400 Systolic blood pressure 150 mm[Hg] Dr. Leopoldo Baird Work Phone: [facility] Work Phone: 05-04-2022 11:57-0400 Body weight [address] Leopoldo Baird Work Phone: [facility] Work Phone: 05-03-2022 19:08-0400 Body mass index (BMI) [Ratio] 33.8 kg/m2 Dr. Leopoldo Baird Work Phone: [facility] Work Phone: 05-03-2022 18:39-0400 Body temperature 98.1 [degF] Dr. Leopoldo Baird Work Phone: [facility] Work Phone: 05-03-2022 18:39-0400 Diastolic blood pressure 66 mm[Hg] Dr. Leopoldo Baird Work Phone: [facility] Work Phone: 05-03-2022 18:39-0400 Heart rate 68 /min Dr. Leopoldo Baird Work Phone: [facility] Work Phone: 05-03-2022 18:39-0400 Respiratory rate 12 /min Dr. Leopoldo Baird Work Phone: [facility] Work Phone: 05-03-2022 18:39-0400 SaO2% (BldA) [Mass fraction] 98 % Dr. Leopoldo Baird Work Phone: [facility] Work Phone: 05-03-2022 18:39-0400 Systolic blood pressure 106 mm[Hg] Dr. Leopoldo Baird Work Phone: [facility] Work Phone: 05-03-2022 16:27-0400 Body height 157.[address] Leopoldo Baird Work Phone: [facility] Work Phone: 05-03-2022 16:27-0400 Body mass index (BMI) [Ratio] 33.2 kg/m2 Dr. Leopoldo Baird Work Phone: [facility] Work Phone: 05-03-2022 16:27-0400 Body weight 82.[address] Leopoldo Baird Work Phone: [facility] Work Phone: 04-17-2022 14:20-0400 Body mass index (BMI) [Ratio] 33.3 kg/m2 Dr. Leopoldo Baird Work Phone: [facility] Work Phone: 04-17-2022 14:20-0400 Body temperature 98.2 [degF] Dr. Leopoldo Baird Work Phone: [facility] Work Phone: 04-17-2022 14:20-0400 Body weight 82.[address] Leopoldo Baird Work Phone: [facility] Work Phone: 04-17-2022 14:20-0400 Diastolic blood pressure 68 mm[Hg] Dr. Leopoldo Baird Work Phone: [facility] Work Phone: 04-17-2022 14:20-0400 Heart rate 72 /min Dr. Leopoldo Baird Work Phone: [facility] Work Phone: 04-17-2022 14:20-0400 Respiratory rate 15 /min Dr. Leopoldo Baird Work Phone: [facility] Work Phone: 04-17-2022 14:20-0400 SaO2% (BldA) [Mass fraction] 94 % Dr. Leopoldo Baird Work Phone: [facility] Work Phone: 04-17-2022 14:20-0400 Systolic blood pressure 104 mm[Hg] Dr. Leopoldo Baird Work Phone: [facility] Work Phone: 04-14-2022 08:00-0400 Body mass index (BMI) [Ratio] 34 kg/m2 Dr. Leopoldo Baird Work Phone: [facility] Work Phone: 04-14-2022 08:00-0400 Body weight 84.[address] Leopoldo Baird Work Phone: [facility] Work Phone: 03-05-2022 10:50-0400 Body mass index (BMI) [Ratio] 34.7 kg/m2 Dr. Leopoldo Baird Work Phone: [facility] Work Phone: 03-05-2022 10:50-0400 Body temperature 97.2 [degF] Dr. Leopoldo Baird Work Phone: [facility] Work Phone: 03-05-2022 10:50-0400 Body weight 86.[address] Leopoldo Baird Work Phone: [facility] Work Phone: 03-05-2022 10:50-0400 Diastolic blood pressure 72 mm[Hg] Dr. Leopoldo Baird Work Phone: [facility] Work Phone: 03-05-2022 10:50-0400 Heart rate 69 /min Dr. Leopoldo Baird Work Phone: [facility] Work Phone: 03-05-2022 10:50-0400 Respiratory rate 14 /min Dr. Leopoldo Baird Work Phone: [facility] Work Phone: 03-05-2022 10:50-0400 SaO2% (BldA) [Mass fraction] 94 % Dr. Leopoldo Baird Work Phone: [facility] Work Phone: 03-05-2022 10:50-0400 Systolic blood pressure 112 mm[Hg] Dr. Leopoldo Baird Work Phone: [facility] Work Phone: 03-05-2022 10:50-0400 Body height 157.[address] Leopoldo Baird Work Phone: [facility] Work Phone: 12-04-2021 09:27-0500 Body height 157.[address] Leopoldo Baird Work Phone: [facility] Work Phone: 12-04-2021 09:27-0500 Body mass index (BMI) [Ratio] 35.8 kg/m2 Dr. Leopoldo Baird Work Phone: [facility] Work Phone: 12-04-2021 09:27-0500 Body temperature 98.1 [degF] Dr. Leopoldo Baird Work Phone: [facility] Work Phone: 12-04-2021 09:27-0500 Body weight 88.[address] Leopoldo Baird Work Phone: [facility] Work Phone: 12-04-2021 09:27-0500 Diastolic blood pressure 86 mm[Hg] Dr. Leopoldo Baird Work Phone: [facility] Work Phone: 12-04-2021 09:27-0500 Heart rate 72 /min Dr. Leopoldo Baird Work Phone: [facility] Work Phone: 12-04-2021 09:27-0500 Respiratory rate 14 /min Dr. Leopoldo Baird Work Phone: [facility] Work Phone: 12-04-2021 09:27-0500 SaO2% (BldA) [Mass fraction] 94 % Dr. Leopoldo Baird Work Phone: [facility] Work Phone: 12-04-2021 09:27-0500 Systolic blood pressure 134 mm[Hg] Dr. Leopoldo Baird Work Phone: [facility] Work Phone: 11-05-2021 13:42-0500 Body mass index (BMI) [Ratio] 35.1 kg/m2 Dr. Leopoldo Baird Work Phone: [facility] Work Phone: 11-05-2021 13:42-0500 Body temperature 97.9 [degF] Dr. Leopoldo Baird Work Phone: [facility] Work Phone: 11-05-2021 13:42-0500 Body weight 87.[address] Leopoldo Baird Work Phone: [facility] Work Phone: 11-05-2021 13:42-0500 Diastolic blood pressure 86 mm[Hg] Dr. Leopoldo Baird Work Phone: [facility] Work Phone: 11-05-2021 13:42-0500 Heart rate 76 /min Dr. Leopoldo Baird Work Phone: [facility] Work Phone: 11-05-2021 13:42-0500 Respiratory rate 16 /min Dr. Leopoldo Baird Work Phone: [facility] Work Phone: 11-05-2021 13:42-0500 SaO2% (BldA) [Mass fraction] 93 % Dr. Leopoldo Baird Work Phone: [facility] Work Phone: 11-05-2021 13:42-0500 Systolic blood pressure 142 mm[Hg] Dr. Leopoldo Baird Work Phone: [facility] Work Phone: 10-21-2021 23:31-0500 Diastolic blood pressure 74 mm[Hg] Dr. Leopoldo Baird Work Phone: [facility] Work Phone: 10-21-2021 23:31-0500 Heart rate 89 /min Dr. Leopoldo Baird Work Phone: [facility] Work Phone: 10-21-2021 23:31-0500 Respiratory rate 18 /min Dr. Leopoldo Baird Work Phone: [facility] Work Phone: 10-21-2021 23:31-0500 SaO2% (BldA) [Mass fraction] 94 % Dr. Leopoldo Baird Work Phone: [facility] Work Phone: 10-21-2021 23:31-0500 Systolic blood pressure 110 mm[Hg] Dr. Leopoldo Baird Work Phone: [facility] Work Phone: 10-21-2021 16:23-0500 Body mass index (BMI) [Ratio] 34.7 kg/m2 Dr. Leopoldo Baird Work Phone: [facility] Work Phone: 10-21-2021 16:23-0500 Body temperature 96.5 [degF] Dr. Leopoldo Baird Work Phone: [facility] Work Phone: 10-21-2021 16:23-0500 Body weight 86.[address] Leopoldo Baird Work Phone: [facility] Work Phone: 08-03-2020 12:37-0400 BMI (Body Mass Index) 35.67 kg/m2 Magalie Rangel [facility] mario alberto Work Phone: 08-03-2020 12:37-0400 Body weight 88.45 kg Mag[facility] mario alber[facility] Work Phone: 08-03-2020 12:37-0400 BSA (Body Surface Area) 1.89 m2 [facility] Work Phone: 08-03-2020 12:37-0400 Height 157.48 cm Magalie [facility] mario alberto Work Phone: 08-03-2020 12:21-0400 BMI (Body Mass Index) 35.67 kg[facility] Work Phone: 08-03-2020 12:21-0400 Body [facility] 88.45 [facility] Work Phone: 08-03-2020 12:21-0400 BSA (Body Surface Area) 1.89 m2 [facility] Work Phone: 08-03-2020 12:21-0400 Height 157.48 cm [facility] mario alberto Work Phone: 03-06-2020 14:11-0400 Body mass index (BMI) [Ratio] 40.2 kg/m2 Dr. Leopoldo Baird Work Phone: [facility] Work Phone: 03-06-2020 14:11-0400 Body temperature 97.8 [degF] Dr. Leopoldo Baird Work Phone: [facility] Work Phone: 03-06-2020 14:11-0400 Body weight 98.[address] Leopoldo Baird Work Phone: [facility] Work Phone: 03-06-2020 14:11-0400 Diastolic blood pressure 75 mm[Hg] Dr. Leopoldo Baird Work Phone: [facility] Work Phone: 03-06-2020 14:11-0400 Heart rate 79 /min Dr. Leopoldo Baird Work Phone: [facility] Work Phone: 03-06-2020 14:11-0400 Respiratory rate 16 /min Dr. Leopoldo Baird Work Phone: [facility] Work Phone: 03-06-2020 14:11-0400 SaO2% (BldA) [Mass fraction] 95 % Dr. Leopoldo Baird Work Phone: [facility] Work Phone: 03-06-2020 14:11-0400 Systolic blood pressure 109 mm[Hg] Dr. Leopoldo Baird Work Phone: [facility] Work Phone: Encounters Encounter Date Encounter Type Care Provider Facility Start: 04-27-2025 ambulatory [facility] Facility :[facility] Start: 04-18-2025 End: 04-18-2025 ambulatory [facility] Start: 03-17-2025 End: 03-17-2025 [facility] Start: 03-09-2025 End: 03-09-2025 ambulatory Efewongbe Oleghe [facility] Start: 03-07-2025 End: 03-07-2025 ambulatory Efewongbe Oleghe [facility] Start: 02-13-2025 End: 02-13-2025 Emergency department [facility] Facility:[facility] Start: 02-02-2025 End: 02-02-2025 ambulatory Efewongbe Oleghe [facility] Start: 02-02-2025 End: 02-02-2025 ambulatory Efewongbe Olee [facility] Start: 02-02-2025 End: 02-02-2025 [facility] Start: 01-04-2025 End: 01-04-2025 [facility] Start: 01-02-2025 End: 03-04-2025 Follow-up encounter Bradford [facility] Start: 12-30-2024 End: 12-30-2024 Emergency department patient visit LEOPOLDO BAIRD Facility:[facility] Start: 12-27-2024 End: 12-27-2024 ambulatory Robert Fergusonison Facility:[facility] Start: 12-16-2024 End: 12-16-2024 ambulatory Adelina Lin Facility:[facility] Start: 11-10-2024 End: 11-10-2024 ambulatory Leopoldo Baird [facility] Start: 11-10-2024 End: 11-10-2024 ambulatory Efchonongcathy Shearere Facility:[facility] Start: 11-03-2024 End: 11-03-2024 ambulatory Manjit L Seese [facility] Start: 10-27-2024 End: 10-27-2024 ambulatory Fuentes Silverio [facility] Start: 09-08-2024 End: 09-08-2024 ambulatory Brandy Richards Facility:[facility] Start: 09-01-2024 End: 09-01-2024 ambulatory Manjit L Seese Facility:[facility] Start: 08-08-2024 End: 08-08-2024 ambulatory Leopoldo Shearere [facility] Start: 08-08-2024 End: 08-08-2024 ambulatory Leopoldo Shearere Facility:[facility] Start: 07-05-2024 End: 07-05-2024 ambulatory Leopoldo Shearere Facility:[facility] Start: 06-29-2024 End: 06-29-2024 ambulatory Robert Garcia Facility:[facility] Start: 06-24-2024 End: 06-24-2024 ambulatory Efmichele Shearere [facility] Start: 06-16-2024 End: 06-16-2024 ambulatory Manjit L Seese Facility:[facility] Start: 06-14-2024 End: 06-14-2024 ambulatory Laura Hirscho Facility:[facility] Start: 06-09-2024 End: 06-09-2024 ambulatory Lauravini Hirscho [facility] Start: 06-09-2024 End: 06-09-2024 ambulatory Efewflushingcathy Oleangelie Facility:[facility] Start: 05-31-2024 End: 06-01-2024 Emergency department patient visit LEOPOLDO BAIRD Facility:[facility] Start: 05-31-2024 End: 05-31-2024 Emergency department patient visit Ed Physician Provider Facility:[facility] Start: 05-26-2024 End: 05-26-2024 ambulatory Leopoldo Baird [facility] Start: 05-26-2024 End: 05-26-2024 ambulatory Leopoldo Baird Facility:[facility] Start: 05-23-2024 End: 05-23-2024 ambulatory Leopoldo Baird [facility] Start: 05-23-2024 End: 05-23-2024 ambulatory Fuentes Glenroyignacio [facility] Start: 05-13-2024 End: 05-14-2024 Emergency department patient visit Rolf Mackenzie Facility:[facility] Start: 05-12-2024 ambulatory Robert Fergusonison Facility :[facility] Start: 05-07-2024 End: 05-07-2024 Emergency department patient visit Leopoldo Baird Facility:[facility] Start: 05-05-2024 End: 05-05-2024 ambulatory Leopoldo Baird [facility] Start: 05-03-2024 End: 05-03-2024 ambulatory Leopoldo Baird [facility] Start: 05-02-2024 ambulatory Robert Mollison Facility :[facility] Start: 05-02-2024 End: 05-02-2024 Emergency department patient visit Vitaliykadie Baird Facility:[facility] Start: 02-15-2024 Telephone encounter Kenzie castle MD Work Phone: [facility] Comment on above: Test Scheduling Start: 10-17-2023 ambulatory Facility:[facility] Start: 09-28-2023 Refill Brett GO Work Phone: [facility] Start: 09-21-2023 Documentation procedure Kareem Hartmann MD Work Phone: [facility] Start: 09-21-2023 Telephone encounter Kareem pierre MD Work Phone: [facility] Comment on above: program withdrawal Start: 09-03-2023 End: 09-03-2023 ambulatory [facility] Start: 09-03-2023 End: 09-03-2023 Office outpatient visit 25 minutes Kareem Hartmann MD Work Phone: [facility] Comment on above: Morbid obesity due t o excess calories (HCC) (Primary Dx); Hypertension, unspecified type Start: 08-10-2023 End: 08-10-2023 ambulatory KAREEM HARTMANN [facility] Start: 08-10-2023 End: 08-10-2023 Office outpatient visit 25 minutes Kareem Hartmann MD Work Phone: [facility] Comment on above: Morbid obesity due t o excess calories (HCC) (Primary Dx); Hypertension, unspecified type Start: 08-05-2023 End: 08-05-2023 Clinical Support Douglas Mason RD Work Phone: [facility] Comment on above: No Show Start: 07-10-2023 ambulatory Kareem Noriega Work Phone: [facility] Start: 07-09-2023 Telephone encounter Kareem pierre MD Work Phone: [facility] Comment on above: OTHER Abnormal Lab (Low Vi tamin D; Low normal Vitamin B12 and elevated Magnesium) Start: 07-09-2023 End: 07-10-2023 ambulatory BRETT BERNAL [facility] Start: 07-09-2023 End: 07-09-2023 ambulatory [facility] Start: 07-09-2023 End: 07-09-2023 Office outpatient visit 25 minutes Kareem Hartmann MD Work Phone: [facility] Comment on above: Morbid obesity due t o excess calories (HCC) (Primary Dx); Hypertension, unspecified type Start: 06-25-2023 End: 06-25-2023 ambulatory KENZIE PAUL [facility] Start: 06-25-2023 End: 06-25-2023 Office outpatient new 45 minutes Kenzie Paul MD Work Phone: [facility] Comment on above: Chronic obstructive pulmonary disease, unspecified COPD type (HCC) (Primary Dx); Encounter for pre-operative respiratory clearance; JENNIFER (obstructive sleep apnea); Smoker; Morbid obesity (HCC) Start: 06-25-2023 End: 06-25-2023 Patient encounter status Kenzie Paul MD Work Phone: [facility] Work Phone: Start: 06-17-2023 End: 06-17-2023 ambulatory ASHLEYYARA MITCHELLN [facility] Start: 06-17-2023 End: 06-17-2023 Office outpatient visit 15 minutes Ashley Mesa MD Work Phone: [facility] Comment on above: BMI 40.0-44.9, adult (HCC) (Primary Dx); Gastroesophageal reflux disease, unspecified whether esophagitis present; Class 3 severe obesity with serious comorbidity and body mass index (BMI) of 40.0 to 44.9 in adult, unspecified obesity type (HCC) Start: 06-16-2023 End: 06-16-2023 [facility] Start: 06-16-2023 End: 06-16-2023 Subsequent hospital visit by physician Susie Ledezma MD Work Phone: [facility] Comment on above: Functional dyspepsia Start: 06-15-2023 ambulatory Brett GO Work Phone: [facility] Start: 06-08-2023 End: 06-08-2023 Clinical Support Susie Ledezma MD Work Phone: [facility] Comment on above: Prediabetes (Primary Dx); Gastroesophageal reflux disease, unspecified whether esophagitis present Start: 05-14-2023 End: 05-14-2023 ambulatory KAREEM HARTMANN [facility] Start: 05-14-2023 End: 05-14-2023 Office outpatient new 45 minutes Kareem Hartmann MD Work Phone: [facility] Comment on above: Morbid obesity due t o excess calories (HCC) (Primary Dx); Hypertension, unspecified type Start: 04-30-2023 Telephone encounter Brett Landeros Work Phone: [facility] Comment on above: Financial File (Shayla ncial File 2022); Surgery Scheduling (Initial Scheduling - Orders Pended) Start: 04-30-2023 End: 04-30-2023 ambulatory BELLO SINGH [facility] Start: 04-30-2023 End: 04-30-2023 Office outpatient new 45 minutes Bello Singh MD Work Phone: [facility] Comment on above: Tobacco use disorder (Primary Dx); Primary hypertension; Prediabetes; Morbid obesity with BMI of 40.0-44.9, adult (HCC); JENNIFER (obstructive sleep apnea); High cholesterol; History of substance abuse (CMS/HCC) (HCC) Start: 12-18-2022 End: 12-18-2022 Office outpatient visit 15 minutes Juanita Mccall MD Work Phone: [facility] Comment on above: Bipolar disorder wit h psychotic features (HCC-CMS) (Primary Dx); Dissociative identity disorder (HCC-CMS); Opioid use disorder, moderate, on maintenance therapy (HCC-CMS) Start: 12-02-2022 End: 12-02-2022 Office outpatient visit 5 minutes Tova Noteboom PharmD Work Phone: [facility] Comment on above: Bipolar disorder wit h psychotic features (HCC-CMS) (Primary Dx); Dissociative identity disorder (HCC-CMS) Start: 10-02-2022 End: 10-02-[address] Leopoldo Baird Work Phone: [facility] Start: 09-30-2022 End: 09-30-[address] Leopoldo Baird Work Phone: [facility] Work Phone: Start: 09-30-2022 End: 09-30-[address] Leopoldo Baird Work Phone: [facility] Start: 09-30-2022 End: 09-30-[address] Leopoldo Baird Work Phone: [facility] Start: 09-17-2022 End: 09-17-[address] Leopoldo Baird Work Phone: [facility] Start: 08-27-2022 End: 08-27-[address] Leopoldo Baird Work Phone: [facility] Start: 08-05-2022 End: 08-05-[address] Leopoldo Baird Work Phone: [facility] Start: 08-01-2022 End: 08-01-2022 Emergency department patient visit Dr. Leopoldo Baird Work Phone: [facility]Emer[facility] Start: 07-17-2022 End: 07-17-2022 Admission to same day surgery center [facility]opold[facility] Baird [facility] Start: 07-17-2022 End: 07-17-[address] Leopoldo Baird Work Phone: [facility] Work Phone: Start: 07-17-2022 End: 07-17-2022 Dr. [facility]aird [facility] Start: 07-09-2022 End: 07-09-[address] Leopoldo Baird Work Phone: [facility] Work Phone: Start: 07-09-2022 End: 07-09-[address] Leopoldo Baird Work Phone: [facility], Specimen Start: 07-09-2022 End: 07-09-2022 Dr. Leopoldo Baird Work Phone: [facility] Start: 07-08-2022 End: 07-08-[address] Leopoldo Baird Work Phone: [facility] Start: 07-08-2022 End: 07-08-2022 Dr. Leopoldo Baird Work Phone: [facility] Start: 07-07-[address] Mckenzie Baird Work Phone: [facility] Start: 07-07-2022 End: 07-07-[address] Leopoldo Baird Work Phone: [facility] Start: 07-07-2022 End: 07-07-2022 Dr. Leopoldo Baird Work Phone: [facility] Start: 06-12-2022 End: 06-12-[address] Leopoldo Baird Work Phone: [facility] Work Phone: Start: 06-12-2022 End: 06-12-[address] Leopoldo Baird Work Phone: [facility] Start: 06-12-2022 End: 06-12-2022 Dr. Leopoldo Baird Work Phone: [facility] Start: 06-11-2022 End: 06-11-[address] Leopoldo Baird Work Phone: [facility] Start: 06-11-2022 End: 06-11-2022 Dr. Leopoldo Baird Work Phone: [facility] Start: 06-10-2022 End: 06-10-[address] Leopoldo Baird Work Phone: [facility] Work Phone: Start: 06-10-2022 End: 06-10-[address] Leopoldo Baird Work Phone: [facility] Start: 06-10-2022 End: 06-10-2022 Dr. Leopoldo Baird Work Phone: [facility] Start: 06-02-2022 End: 06-02-[address] [facility] Start: 06-02-2022 End: 06-02-2022 Dr. Leopoldo Baird Work Phone: [facility] Start: 06-02-2022 End: 06-02-[address] Leopoldo Baird Work Phone: [facility] Start: 06-02-2022 End: 06-02-2022 Dr. Leopoldo Baird Work Phone: [facility] Start: 05-28-2022 End: 05-28-[address] Leopoldo Baird Work Phone: [facility]/Neurology Start: 05-28-2022 End: 05-28-2022 Dr. [facility]opold[facility]aird [facility] Start: 05-20-2022 End: 05-20-2022 Emergency department patient visit Dr. Leopoldo Baird Work Phone: [facility] Start: 05-20-2022 End: 05-20-2022 Dr. Leopoldo Baird Work Phone: [facility] Start: 05-08-2022 End: 05-08-[address] Leopoldo Baird Work Phone: [facility] Start: 05-08-2022 End: 05-08-2022 Dr. Leopoldo Baird Work Phone: [facility] Start: 05-08-2022 End: 05-08-[address] Leopoldo Baird Work Phone: [facility] Start: 05-08-2022 End: 05-08-2022 Dr. Leopoldo Baird Work Phone: [facility] Start: 05-06-2022 Non-patient / Non-visit Dr. Vitaliy Baird Work Phone: [facility] Start: 05-06-2022 Dr. Leopoldo Baird Work Phone: [facility] Start: 05-05-2022 Non-patient / Non-visit Dr. Vitaliy Baird Work Phone: [facility] Start: 05-05-2022 Dr. Leopoldo Baird Work Phone: [facility] Start: 05-04-2022 Non-patient / Non-visit Dr. Vitaliy Baird Work Phone: [facility] Start: 05-04-2022 Dr. Leopoldo Baird Work Phone: [facility] Start: 05-03-2022 Non-patient / Non-visit Dr. Vitaliy Baird Work Phone: [facility] Start: 05-03-2022 End: 05-06-2022 Evaluation and management of inpatient Dr. Leopoldo Baird Work Phone: [facility]Medical Surgical 3 Start: 05-03-2022 End: 05-06-2022 Dr. Leopoldo Baird Work Phone: [facility] Start: 04-17-2022 End: 04-17-[address] Leopoldo Baird Work Phone: [facility] Start: 04-17-2022 End: 04-17-2022 Dr. Leopoldo Baird Work Phone: [facility] Start: 04-17-[address] Mckenzie Baird Work Phone: [facility] Start: 04-14-2022 End: 04-14-[address] Leopoldo Baird Work Phone: [facility] Start: 04-14-2022 End: 04-14-2022 Dr. Leopoldo Baird Work Phone: [facility] Start: 03-05-2022 End: 03-05-[address] Leopoldo Baird Work Phone: [facility] Start: 03-04-2022 End: 03-04-[address] Leopoldo Baird Work Phone: [facility]Cardi[facility] Services Start: 01-15-2022 End: 01-15-[address] Leopoldo Baird Work Phone: [facility]Outpatient Breast Imaging Start: 12-11-2021 End: 12-11-[address] Leopoldo Baird Work Phone: [facility] Start: 12-04-2021 End: 12-04-[address] Leopoldo Baird Work Phone: [facility] Start: 11-07-2021 End: 11-07-[address] Leopoldo Baird Work Phone: [facility] Start: 11-05-2021 End: 11-05-[address] Leopoldo Baird Work Phone: [facility] Start: 10-28-[address] Mckenzie Baird Work Phone: [facility]Occupational Therapy Start: 10-21-2021 End: 10-22-2021 Emergency department patient visit Dr. Leopoldo Baird Work Phone: [facility]Emergency [facility] Start: 10-17-2021 End: 10-17-[address] 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 Start: 02-15-2019 Patient encounter procedure ZIA SEALS [facility] Start: 02-15-2018 Ambulatory Shira Hylton Facilit y:[facility] Start: 11-23-2017 Ambulatory Shira Hylton Facilit y:[facility] Start: 08-24-2017 Ambulatory Shira Hylton Facilit y:[facility] Start: 07-21-2017 Ambulatory Shira Hylton Facilit y:[facility] Start: 06-23-2017 Ambulatory Shira Hylton Facilit y:[facility] Start: 05-25-2017 Ambulatory Shira Warner Facilit y:[facility] Start: 04-27-2017 Ambulatory Shira Hylton Facilit y:[facility] Procedures Date Procedure Procedure Detail Performing Clinician Start: 07-09-2023 Lipid 1996 panel - Serum or Plasma Kareem Hartmann MD Work Phone: Start: 08-01-2022 CT of chest, abdomen and pelvis without contrast Dr. Leopoldo Baird Work Phone: Start: 07-17-[address] Leopoldo Baird Work Phone: Start: 06-12-[address] Leopoldo Baird Work Phone: Start: 06-11-2022 X-ray of cervical spine Dr. Leopoldo Baird Work Phone: Start: 05-20-2022 Plain chest X-ray Dr. Leopoldo Baird Work Phone: Start: 05-03-2022 Plain chest X-ray Dr. Leopoldo Baird Work Phone: Start: 04-14-2022 Plain x-ray of wrist Dr. Leopoldo Baird Work Phone: Start: 01-15-2022 End: 01-15-[address] Leopoldo Baird Work Phone: Start: 12-11-2021 Plain x-ray of hand Dr. Leopoldo Baird Work Phone: Start: 11-07-[address] Leopoldo Baird Work Phone: Start: 11-07-2021 Plain x-ray of wrist Dr. Leopoldo Baird Work Phone: Start: 10-17-2021 Plain x-ray of wrist Dr. 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 Leopoldo Baird Work Phone: Bacteria identified in Urine by Culture Dr. Leopoldo Baird Work Phone: section Magalie Lintbrain er Cholecystectomy Magalie Lintgustabo r Colonoscopy Magalie Rangel Esophagogastroduodenoscopy E llen Lintner Hysterectomy Magalie Rangel Urine culture Dr. Leopoldo Baird Work Phone: Viral antigen assay Dr. Aylin Baird Work Phone: Plan of Treatment Date Care Activity Detail Author Start: 07-09-2028 Lipid panel [facility] Start: 12-31-2027 Diabetes Screening Diabetes Screening [facility] Start: 2027 RSV Vaccine (1 - 1-dose 75+ series) RSV Vaccine (1 - 1-dose 75+ series) [facility] Start: 07-15-2026 DTaP/Tdap/Td Vaccines (2 - Td or Tdap) DTaP/Tdap/Td Vaccines (2 - Td or Tdap) [facility] Start: 07-15-2026 Tetanus vaccination Imm-DTaP/Tdap/Td (2 - Td or Tdap) [facility] Start: 07-15-2026 Urine microalbumin profile [facility] Start: 07-09-2026 Diabetes Screening Diabetes Screening [facility] Start: 12-05-2025 Lipid panel Lipid Panel [facility] Start: 10-19-2024 Advance Directive Discussion Advance Directive Discussion [facility] Start: 07-09-2024 Diabetes mellitus screening Diabetes Screening [facility] Start: 06-19-2024 Covid-19 Vaccine ( season) Covid-19 Vaccine () [facility] Start: 06-19-2024 Influenza vaccination [facility] Start: 12-02-2023 Tobacco use cessation education Tobacco Cessation Counseling (#1) [facility] Start: 10-19-2023 Advance Directive Discussion Advance Directive Discussion [facility] Start: 10-19-2023 Medicare Advantage Annual Wellness Visit Medicare Advantage Annual Wellness Visit [facility] Start: 10-09-2023 End: 07-10-2024 25-hydroxyvitamin D3 [Mass/volume] in Serum or Plasma Vitamin D Deficiency Screening (Vit D 25) Lab Routine Vitamin D deficiency Expected: 10/09/2023 (Approximate), Expires: 07/10/[address] [facility] Comment on above: Expected: 10/09/2023 (Approximate), Expi res: 07/10/2024 Start: 10-09-2023 End: 07-10-2024 Cobalamin (Vitamin B12) [Mass/volume] in Serum or Plasma Vitamin B12 Lab Routine Low vitamin B12 level Expected: 10/09/2023 (Approximate), Expires: 07/10/[address] [facility] Comment on above: Expected: 10/09/2023 (Approximate), Expi res: 07/10/2024 Start: 10-08-2023 End: 10-08-2023 Patient encounter procedure 10/08/2023 2:30 PM EST Office Visit [facility] [address] [place] [id number] MD [address] [place] [address] [facility] Start: 09-03-2023 End: 09-03-2023 Patient encounter procedure 09/03/2023 7:30 AM EST Office Visit [facility] [address] [place] [id number] Kareem Hartmann MD [address] [place] [address] [facility] Start: 08-31-2023 End: 08-31-2023 Clinical Support 08/31/2023 9:00 AM EST Clinical Support Weight Management [place] [phone] [place] [address] [facility] Start: 08-26-2023 Colonoscopy COLONOSCOPY [facility] Start: 08-26-2023 COLORECTAL CANCER SCREENING COLORECTAL CANCER SCREENING [facility] Start: 08-26-2023 Screening for malignant neoplasm of colon [facility] Start: 08-10-2023 End: 08-10-2023 Patient encounter procedure 08/10/2023 8:15 AM EDT Office Visit [facility] Management [place] [phone] Kareem Hartmann MD [address] [place] [address] [facility] Start: 08-09-2023 End: 07-10-2024 Magnesium [Mass/volume] in Serum or Plasma Magnesium Lab Routine High blood magnesium level Expected: 08/09/2023 (Approximate), Expires: 07/10/2024 [facility] Work Phone: Comment on above: Expected: 08/09/2023 (Approximate), Expi res: 07/10/2024 Start: 08-03-2023 End: 08-03-2023 Clinical Support 08/03/2023 10:00 AM EDT Clinical Support [facility] [address] [place] [phone] [facility] [place] [address] [facility] Start: 07-22-2023 End: 07-22-2023 Patient encounter procedure 07/22/2023 9:15 AM EDT Office Visit [facility] [address] [place] [address] [facility] Start: 07-14-2023 Pneumococcal Vaccine: 50+ (3 of 3 - PCV20 or PCV21) Pneumococcal Vaccine: 50+ (3 of 3 - PCV20 or PCV21) [facility] Start: 07-09-2023 End: 07-09-2023 Patient encounter procedure 07/09/2023 9:45 AM EDT Office Visit [facility] [address] [place] [address] Kareem Hartmann MD [address] [place] [address] [facility] Start: 06-25-2023 End: 06-25-2024 Spirometry Spirometry PFT Routine Chronic obstructive pulmonary disease, unspecified COPD type (HCC) Expected: 06/25/2023 (Approximate), Expires: 06/25/2024 [facility] Work Phone: Comment on above: Expected: 06/25/2023 (Approximate), Expi res: 06/25/2024 Start: 06-25-2023 End: 06-25-2023 Patient encounter procedure 06/25/2023 10:00 AM EDT Office Visit [facility] [address] [place] [address] Kenzie Paul MD [address] [place] [id number] [facility] Start: 06-19-2023 COVID-19 Vaccine ( season) COVID-19 Vaccine ( season) [facility] Start: 06-19-2023 Influenza vaccination Influenza Vaccine (#1) [facility] Start: 06-17-2023 End: 06-17-2023 Patient encounter procedure 06/17/2023 12:40 PM EDT Office Visit [facility] [address] [place] [address] Ashley Mesa MD [address] [place], [place] [phone] [facility] Start: 06-16-2023 End: 06-16-2023 Admission to same day surgery center 06/16/2023 9:00 AM EDT - 06/16/2023 9:30 AM EDT Surgery [facility] [address] [place] [phone] Susie Ledezma MD [address] [place], [place] [id number] EGD WITH BIOPSY [41626 (CPT )] [facility] [address] [facility] Comment on above: EGD WITH BIOPSY [29585 (CPT )] Start: 06-16-2023 Subsequent hospital visit by physician 06/16/2023 9:00 AM EDT Hospital Encounter [facility] [address] [place] [phone] [place], [place] [phone] [facility] [address] Start: 06-16-2023 End: 06-16-2023 Egd transoral biopsy single/multiple [facility] Start: 05-27-2023 End: 05-27-2023 Clinical Support 05/27/2023 8:00 AM EDT Clinical Support [facility] [address] [place] [phone] [address] [place], [place] [phone] Douglas Mason [address] [place], [place] [phone] [facility] Start: 05-14-2023 End: 05-14-2023 Patient encounter procedure 05/14/2023 1:00 PM EDT Office Visit [facility] [address] [place] [phone] Kareem Hartmann MD [address] [place], [place] [phone] [facility] Start: 05-13-2023 End: 05-11-2024 25-hydroxyvitamin D3 [Mass/volume] in Serum or Plasma Vitamin D Deficiency Screening (Vit D 25) Lab Routine Chronic obstructive pulmonary disease, unspecified COPD type (HCC) Primary hypertension Gastroesophageal reflux disease, unspecified whether esophagitis present Tobacco use disorder JENNIFER (obstructive sleep apnea) High cholesterol Morbid obesity with BMI of 40.0-44.9, adult (HCC) Expected: 05/13/2023, Expires: 05/11/2024 [employer] Comment on above: Expected: 05/13/2023, Expires: Start: 05-13-2023 End: 05-11-2024 CBC panel - Blood by Automated count CBC Lab Routine Chronic obstructive pulmonary disease, unspecified COPD type (HCC) Primary hypertension Gastroesophageal reflux disease, unspecified whether esophagitis present Tobacco use disorder JENNIFER (obstructive sleep apnea) High cholesterol Morbid obesity with BMI of 40.0-44.9, adult ([facility]) Expected: 05/13/2023, Expires: 05/11/2024 [employer] Comment on above: Expected: 05/13/2023, Expires: Start: 05-13-2023 End: 05-11-2024 Cobalamin (Vitamin B12) [Mass/volume] in Serum or Plasma Vitamin B12 Lab Routine Chronic obstructive pulmonary disease, unspecified COPD type (HCC) Primary hypertension Gastroesophageal reflux disease, unspecified whether esophagitis present Tobacco use disorder JENNIFER (obstructive sleep apnea) High cholesterol Morbid obesity with BMI of 40.0-44.9, adult (HCC) Expected: 05/13/2023, Expires: 05/11/2024 [employer] Comment on above: Expected: 05/13/2023, Expires: Start: 05-13-2023 End: 05-11-2024 Comprehensive metabolic 1998 panel - Serum or Plasma Comprehensive metabolic panel Lab Routine Chronic obstructive pulmonary disease, unspecified COPD type (HCC) Primary hypertension Gastroesophageal reflux disease, unspecified whether esophagitis present Tobacco use disorder JENNIFER (obstructive sleep apnea) High cholesterol Morbid obesity with BMI of 40.0-44.9, adult (HCC) Expected: 05/13/2023, Expires: 05/11/2024 [employer] Comment on above: Expected: 05/13/2023, Expires: Start: 05-13-2023 End: 05-11-2024 Ferritin [Mass/volume] in Serum or Plasma Ferritin Lab Routine Chronic obstructive pulmonary disease, unspecified COPD type (HCC) Primary hypertension Gastroesophageal reflux disease, unspecified whether esophagitis present Tobacco use disorder JENNIFER (obstructive sleep apnea) High cholesterol Morbid obesity with BMI of 40.0-44.9, adult (HCC) Expected: 05/13/2023, Expires: 05/11/2024 [employer] Comment on above: Expected: 05/13/2023, Expires: Start: 05-13-2023 End: 05-11-2024 Folate [Mass/volume] in Serum or Plasma Folate Lab Routine Chronic obstructive pulmonary disease, unspecified COPD type (HCC) Primary hypertension Gastroesophageal reflux disease, unspecified whether esophagitis present Tobacco use disorder JENNIFER (obstructive sleep apnea) High cholesterol Morbid obesity with BMI of 40.0-44.9, adult (HCC) Expected: 05/13/2023, Expires: 05/11/2024 [employer] Comment on above: Expected: 05/13/2023, Expires: Start: 05-13-2023 End: 05-11-2024 Hemoglobin A1c/Hemoglobin.total in Blood Hemoglobin A1c Lab Routine Chronic obstructive pulmonary disease, unspecified COPD type (HCC) Primary hypertension Gastroesophageal reflux disease, unspecified whether esophagitis present Tobacco use disorder JENNIFER (obstructive sleep apnea) High cholesterol Morbid obesity with BMI of 40.0-44.9, adult (HCC) Expected: 05/13/2023, Expires: 05/11/2024 [employer] [facility] Work Phone: Comment on above: Expected: 05/13/2023, Expires: Start: 05-13-2023 End: 05-11-2024 Iron and Iron binding capacity panel - Serum or Plasma Iron Lab Routine Chronic obstructive pulmonary disease, unspecified COPD type (HCC) Primary hypertension Gastroesophageal reflux disease, unspecified whether esophagitis present Tobacco use disorder JENNIFER (obstructive sleep apnea) High cholesterol Morbid obesity with BMI of 40.0-44.9, adult (HCC) Expected: 05/13/2023, Expires: 05/11/2024 [employer] Comment on above: Expected: 05/13/2023, Expires: Start: 05-13-2023 End: 05-11-2024 Lipid 1996 panel - Serum or Plasma Lipid panel Lab Routine Chronic obstructive pulmonary disease, unspecified COPD type (HCC) Primary hypertension Gastroesophageal reflux disease, unspecified whether esophagitis present Tobacco use disorder JENNIFER (obstructive sleep apnea) High cholesterol Morbid obesity with BMI of 40.0-44.9, adult (HCC) Expected: 05/13/2023, Expires: 05/11/2024 [facility] Comment on above: Expected: 05/13/2023, Expires: Start: 05-13-2023 End: 05-11-2024 Magnesium [Mass/volume] in Serum or Plasma Magnesium Lab Routine Chronic obstructive pulmonary disease, unspecified COPD type (HCC) Primary hypertension Gastroesophageal reflux disease, unspecified whether esophagitis present Tobacco use disorder JENNIFER (obstructive sleep apnea) High cholesterol Morbid obesity with BMI of 40.0-44.9, adult ([facility]) Expected: 05/13/2023, Expires: 05/11/2024 [facility] Comment on above: Expected: 05/13/2023, Expires: Start: 05-13-2023 End: 05-11-2024 Thyrotropin [Units/volume] in Serum or Plasma TSH Lab Routine Chronic obstructive pulmonary disease, unspecified COPD type (HCC) Primary hypertension Gastroesophageal reflux disease, unspecified whether esophagitis present Tobacco use disorder JENNIFER (obstructive sleep apnea) High cholesterol Morbid obesity with BMI of 40.0-44.9, adult (HCC) Expected: 05/13/2023, Expires: 05/11/2024 [facility] Comment on above: Expected: 05/13/2023, Expires: Start: 05-13-2023 End: 05-11-2024 Vitamin B1, whole blood Vitamin B1, whole blood Lab Routine Chronic obstructive pulmonary disease, unspecified COPD type (HCC) Primary hypertension Gastroesophageal reflux disease, unspecified whether esophagitis present Tobacco use disorder JENNIFER (obstructive sleep apnea) High cholesterol Morbid obesity with BMI of 40.0-44.9, adult (HCC) Expected: 05/13/2023, Expires: 05/11/2024 [facility] Comment on above: Expected: 05/13/2023, Expires: Start: 05-13-2023 End: 05-11-2024 XR Abdomen and RF Gastrointestinal tract upper W contrast PO FL upper GI w KUB Imaging Routine Gastroesophageal reflux disease, unspecified whether esophagitis present Expected: 05/13/2023, Expires: 05/11/2024 [facility] [employer] Comment on above: Expected: 05/13/2023, Expires: Start: 05-13-2023 End: 05-11-2024 Zinc Zinc Lab Routine Chronic obstructive pulmonary disease, unspecified COPD type ([facility]) Primary hypertension Gastroesophageal reflux disease, unspecified whether esophagitis present Tobacco use disorder JENNIFER (obstructive sleep apnea) High cholesterol Morbid obesity with BMI of 40.0-44.9, adult ([facility]) Expected: 05/13/2023, Expires: 05/11/2024 [facility] Comment on above: Expected: 05/13/2023, Expires: Start: 01-15-2023 Screening for malignant neoplasm of breast Mammogram [facility] Start: 10-19-2022 Screening for substance abuse Alcohol and Drug Screen [facility] Start: 07-17-2022 Anes transurethral w/urethrocystoscopy nos ANESTH BLADDER SURGERY [facility] Work Phone: Start: 07-17-2022 Cysto calibration dilat urtl strix/stenosis CYSTOSCOPY AND TREATMENT [facility] Work Phone: Start: 07-17-2022 Patient discharge [facility] Work Phone: Start: 06-19-2022 Influenza vaccination [facility] Start: 06-02-2022 [facility] Work Phone: Start: 05-20-2022 Referral to service [facility] Work Phone: Start: 05-20-2022 Suicide precautions [facility] Work Phone: Start: 05-06-2022 Patient discharge [facility] Work Phone: Start: 05-05-2022 Referral to service [facility] Work Phone: Start: 05-03-2022 Assessment of risk of venous thromboembolism [facility] Work Phone: Start: 05-03-2022 Incentive spirometry [facility] Work Phone: Start: 05-03-2022 Insertion of catheter into peripheral vein [facility] Work Phone: Start: 05-03-2022 Providing care according to standard [facility] Work Phone: Start: 05-03-2022 Provision of activity privileges [facility] Work Phone: Start: 05-03-2022 Referral to service [facility] Work Phone: Start: 05-03-2022 [facility] Work Phone: Start: 05-03-2022 Care planning and problem solving actions [facility] Work Phone: Start: 05-03-2022 Verification routine [facility] Work Phone: Start: 05-03-2022 Admission procedure [facility] Work Phone: Start: 05-03-2022 Plain chest X-ray Chest 1 View (Portable) [facility] Work Phone: Start: 05-03-2022 XR Chest Single view [facility] Work Phone: Start: 05-03-2022 End: 05-03-2022 Blood culture [facility] Work Phone: Start: 05-03-2022 End: 05-03-2022 [facility] Work Phone: Start: 05-03-2022 Patient referral to dietitian [facility] Work Phone: Start: 12-05-2021 Lipid panel Lipid Screening [facility] Start: 11-05-2021 Patient referral [facility] Work Phone: Start: 10-19-2021 ADVANCE DIRECTIVE DISCUSSION ADVANCE DIRECTIVE DISCUSSION [facility] Start: 10-19-2021 Depression screening Depression Annual Screen (#1) [facility] Start: 01-17-2020 DIABETES SCREEN DIABETES SCREEN [facility] Start: 07-14-2019 Pneumococcal Vaccine: 65+ (3 of 3 - PPSV23 or PCV20) Pneumococcal Vaccine: 65+ (3 of 3 - PPSV23 or PCV20) [facility] Start: 07-14-2019 Pneumococcal Vaccine: 65+ Years (3 - PPSV23 if available, else PCV20) Pneumococcal Vaccine: 65+ Years (3 - PPSV23 if available, else PCV20) [facility] Start: 07-14-2019 Pneumococcal Vaccine: 65+ Years (3 - PPSV23 or PCV20) Pneumococcal Vaccine: 65+ Years (3 - PPSV23 or PCV20) [facility] Start: 07-14-2019 Pneumococcal Vaccine: 65+ Years (3 of 3 - PPSV23 or PCV20) Pneumococcal Vaccine: 65+ Years (3 of 3 - PPSV23 or PCV20) [facility] Start: 12-23-2018 LIPID SCREEN LIPID SCREEN [facility] Start: 12-30-2017 Adult depression screening assessment DEPRESSION SCREENING [facility] Start: 12-12-2017 Mammography MAMMOGRAM [facility] Start: 12-12-2017 Screening for malignant neoplasm of breast Mammogram Screening [facility] Start: 2017 BONE DENSITY BONE DENSITY [facility] Start: 2017 Falls Prevention Falls Prevention [facility] Start: 2017 Screening for osteoporosis Bone Density Screening [facility] Start: 07-31-2013 Pneumococcal vaccination given (finding) Imm-Pneumococcal 65+ (2 - PCV) [facility] Start: 07-31-2013 PNEUMOCOCCAL: 65+ (2 - PCV) PNEUMOCOCCAL: 65+ (2 - PCV) [facility] Start: 2012 Hepatitis B Vaccines (1 of 3 - Risk 3-dose series) Hepatitis B Vaccines (1 of 3 - Risk 3-dose series) [facility] Start: 2012 RSV Immunization aged 60 or older (1 - 1-dose 60+ series) RSV Immunization aged 60 or older (1 - 1-dose 60+ series) [facility] Start: 2012 RSV Vaccine (1 - Risk 60-74 years 1-dose series) RSV Vaccine (1 - Risk 60-74 years 1-dose series) [facility] Start: 2002 Imm-Zoster, Recombinant (1 of 2) Imm-Zoster, Recombinant (1 of 2) [facility] Start: 2002 Screening for malignant neoplasm of breast Breast Cancer Screening [facility] Start: 2002 SHINGRIX VACCINE (1 of 2) SHINGRIX VACCINE (1 of 2) [facility] Start: 2002 Zoster Vaccines (1 of 2) Zoster Vaccines (1 of 2) [facility] Start: 1997 COLOGUARD (FIT-DNA) COLOGUARD (FIT-DNA) [facility] Start: [address] COLONOGRAPHY [facility] Start: 1997 FECAL OCCULT BLOOD FECAL OCCULT BLOOD [facility] Start: 1997 Screening for malignant neoplasm of colon [facility] Start: 1997 SIGMOIDOSCOPY SIGMOIDOSCOPY [facility] Start: 1971 Hepatitis A Vaccines (1 of 2 - Risk 2-dose series) Hepatitis A Vaccines (1 of 2 - Risk 2-dose series) [facility] Start: 1970 Anxiety Screening Anxiety Screening [facility] Start: 1970 Depression Screening Depression Screening [facility] Start: 1970 Diabetes mellitus screening Diabetes Screening [facility] Start: 1970 Hepatitis C screening Hepatitis C Screening [facility] Start: 1964 Depression Monitoring Depression Monitoring [facility] Start: 1964 Depresssion Monitoring Depresssion Monitoring [facility] Start: 1962 Diabetes mellitus screening Diabetes Screening [facility] Start: 1957 COVID-19 VACCINE (#1) COVID-19 VACCINE (#1) [facility] Start: 01-09-1953 COVID-19 Vaccine (#1) COVID-19 Vaccine (#1) [facility] Start: 01-09-1953 [id number] (#1) [id number] (#1) [facility] Start: 1952 Hepatitis C screening Hepatitis C Screening [facility] Start: 1952 Medicare Advantage Annual Wellness Visit (AWV) Medicare Advantage Annual Wellness Visit (AWV) [facility] Start: 1952 Screening for malignant neoplasm of colon [facility] Start: 1952 Screening for osteoporosis Bone Density Scan [facility] Start: 1952 Tobacco use cessation education Tobacco Cessation Counseling (#1) [facility] Bacteria identified in Blood by Culture Blood Culture [facility] Work Phone: Bacteria identified in Urine by Culture Urine Culture [facility] Work Phone: Blood culture [facility] Work Phone: Patient Education [facility] Work Phone: Patient referral [facility] Work Phone: Tissue exam [facility] Work Phone: Comment on above: Release Upon Ordering for 1 Occurrences starting 06/16/2023, 1 completed Vitamin B1, whole blood Vitamin B1, whole blood Lab Routine Chronic obstructive pulmonary disease, unspecified COPD type (HCC) Primary hypertension Gastroesophageal reflux disease, unspecified whether esophagitis present Tobacco use disorder JENNIFER (obstructive sleep apnea) High cholesterol Morbid obesity with BMI of 40.0-44.9, adult ([facility]) 07/09/2023 10:30 AM EDT [facility] Zinc Zinc Lab Routine Chronic obstructive pulmonary disease, unspecified COPD type (HCC) Primary hypertension Gastroesophageal reflux disease, unspecified whether esophagitis present Tobacco use disorder JENNIFER (obstructive sleep apnea) High cholesterol Morbid obesity with BMI of 40.0-44.9, adult ([facility]) 07/09/2023 10:30 AM T [facility] S ervices Immunizations Immunization Date Immunization Notes Care Provider Ronald hamm 05-31-2024 tetanus toxoid, redu aaliyah diphtheria toxoid, and acellular pertussis vaccine, adsorbed Bradford Santa [facility] 09-28-2023 influenza virus vacc ine, unspecified formulation Xr Vinton Work Phone: [facility] 08-27-2022 influenza, seasonal, injectable Dr. Leopoldo Baird Work Phone: [facility] Work Phone: 08-27-2022 influenza virus vacc ine, unspecified formulation Susie Ledezma MD Work Phone: [facility] 07-28-2019 Fluad 2019-20 65yr up(PF)45 mcg(15 mcgx3)/0.5 mL intramuscular syringe (flu vac Dr. Leopoldo Baird Work Phone: [facility] Work Phone: 08-10-[address] Leopoldo Baird Work Phone: [facility] Work Phone: 07-14-2018 pneumococcal conjuga te vaccine, [address] Leopoldo Baird Work Phone: [facility] Work Phone: 07-14-2018 pneumococcal vaccine , unspecified formulation Dr. Leopoldo Baird Work Phone: [facility] Work Phone: 09-04-[address] Leopoldo Baird Work Phone: [facility] Work Phone: 07-21-[address] Leopoldo Baird Work Phone: [facility] Work Phone: 07-21-2016 influenza, injectabl e, quadrivalent, contains preservative Emmanuel Smart Work Phone: [facility] 07-15-2016 tetanus toxoid, redu aaliyah diphtheria toxoid, and acellular pertussis vaccine, adsorbed Dr. Leopoldo Baird Work Phone: [facility] 08-20-2015 influenza, seasonal, injectable Dr. Leopoldo Baird Work Phone: [facility] Work Phone: 09-05-2014 influenza, seasonal, injectable [employer] Work Phone: [facility] Work Phone: 07-16-2014 tetanus and diphther ia toxoids, adsorbed, preservative free, for adult use (2 Lf of tetanus toxoid and 2 Lf of diphtheria toxoid) Dr. Leopoldo Baird Work Phone: [facility] Work Phone: 10-19-[address] Leopoldo Baird Work Phone: [facility] Work Phone: 07-31-2012 pneumococcal polysaccharide vaccine, 23 valent [employer] Work Phone: [facility] 07-29-2012 influenza virus vacc ine, unspecified formulation [employer] Work Phone: [facility] 07-19-[address] Arvind Baird Work Phone: [facility] Work Phone: 07-19-2011 pneumococcal vaccine , unspecified formulation Dr. Leopoldo Baird Work Phone: [facility] Work Phone: 09-29-2010 pneumococcal polysaccharide vaccine, 23 valent [employer] Work Phone: [facility] Payers Date Payer Category Payer Medicaid [id number] 2018 Self-pay [id number] 2017 Medicaid [id number] 2015 Medicare [id number] 2015 Medicare [id number] 2015 Medicare (Managed Care) [employer] [id number] 2015 Unknown [id number] 2009 Medicare [id number] 1952 Unknown [id number] 2.16.840.1.041854.3.579.2. 182 Unknown [id number] 2.16.840.1.903779.3.579.2. 462 Unknown [id number] 2.16.840.1.404973.3.579.2. 462 Unknown [id number] 2.16.840.1.820227.3.579.2. 462 Unknown [id number] 2.16.840.1.427216.3.579.2. 462 Unknown [id number] 2.16.840.1.190494.3.579.2. 462 Unknown [id number] 2.16.840.1.590852.3.579.2. 462 Unknown [id number] 2.16.840.1.477233.3.579.2. 462 Unknown [id number] 2.16.840.1.553381.3.579.2. 462 Unknown [id number] 2.16.840.1.743460.3.579.2. 462 Unknown [id number] 2.16.840.1.555501.3.579.2. 462 Unknown [id number] 2.16.840.1.808370.3.579.2. 462 Unknown [id number] 2.16.840.1.732572.3.579.2. 462 Unknown [id number] 2.16.840.1.464073.3.579.2. 462 Unknown [id number] 2.16.840.1.108063.3.579.2. 462 Unknown [id number] 2.16840.1.566863.3.579.2. 462 Unknown [id number] 2.16840.1.699397.3.579.2. 462 Unknown [id number] 2.840.1.172665.3.579.2. 462 Unknown [id number] 2.840.1.327093.3.579.2. 462 Unknown [id number] 2.840.1.649246.3.579.2. 462 Unknown [id number] 2.840.1.398116.3.579.2. 462 Unknown [id number] 2.840.1.783063.3.579.2. 462 Unknown [id number] 2.840.1.235617.3.579.2. 462 Unknown [id number]. 462 Unknown [id number] 2.840.1.027769.3.579.2. 462 Unknown [id number] 2.840.1.331678.3.579.2. 462 Unknown [id number] 2.840.1.173377.3.579.2. 462 Unknown [id number] 2.840.1.114128.3.579.2. 462 Unknown [id number] 2.840.1.036920.3.579.2. 462 Unknown [id number] 2.840.1.471831.3.579.2. 462 Unknown [id number] 2.840.1.460092.3.579.2. 462 Unknown [id number] 2.840.1.155796.3.579.2. 462 Unknown [id number] 2.840.1.176051.3.579.2. 462 Unknown [id number] 2.16.840.1.261450.3.579.2. 462 Unknown [id number] 2.16.840.1.569414.3.579.2. 462 Unknown [id number] 2.16.840.1.703563.3.579.2. 462 Unknown [id number] 2.16.840.1.439807.3.579.2. 462 Unknown [id number] 2.16.840.1.322014.3.579.2. 462 Unknown [id number] 2.16.840.1.948104.3.579.2. 462 Unknown [id number] 2.16.840.1.726430.3.579.2. 462 Social History Date Type Detail Facility Start: 12-11-2021 End: 10-02-2022 Tobacco smoking status DEIS Unknown if ever smoked [facility] Work Phone: Start: 08-30-2021 None [facility] Work Phone: Start: 11-29-2020 Alone [facility] Work Phone: Start: 08-30-2021 Cigarettes [facility] Work Phone: Start: 1950 Sex Assigned At Female C [facility] [employer] Work Phone: Start: 10-16-1985 End: 12-30-2024 Tobacco smoking status DEIS Smokes tobacco daily [facility] Start: 10-16-1985 End: 10-16-2015 History of tobacco use Cigarette Smoker [facility] Start: 05-21-2016 End: 12-31-2024 Cigarettes smoked current (pack per day) - Reported 0.5 [facility] Start: 05-21-2016 End: 12-30-2024 Tobacco use and exposure Smokeless tobacco non-user [facility] Start: 08-29-2021 End: 12-30-2024 Alcohol intake Current non-drinker of alcohol (finding) [facility] Start: 1950 Sex Assigned At Not on file [facility] Start: 07-30-2021 End: 07-09-2023 Exposure to SARS-CoV-2 (event) Not sure [facility] Start: 12-02-2022 End: 12-18-2022 Alcohol intake Lifetime non-drinker (finding) [facility] Work Phone: Start: 01-15-2021 History SDOH Alcohol Frequency 1 [facility] Work Phone: Start: 12-02-2022 Tobacco Comment half a pack da vini, smoked since 37 [facility] [employer] Work Phone: Start: 04-30-2023 End: 07-09-2023 Alcohol intake Ex-drinker (finding) [facility] Start: 04-30-2023 End: 12-31-2024 Gender identity Not on file [facility] Start: 06-16-2023 Tobacco smoking status NHIS Ex-smoker [facility] Start: 10-19-1987 History of tobacco use Current smoker [facility] Within the last year , have you been afraid of your partner or ex-partner? No [facility] National Score (1-100), lower number is lower risk Not on file [facility] NEGATED: Highlighted row - - [facility] Work Phone: Medical Equipment Procedure Code Equipment Code Equipment Origin al Text Equipment Identifier Dates ERIC OSPINA FDA Start: 03-14-2018 ERIC OSPINA FDA Start: 03-14-2018 ERIC OSPINA FDA Start: 03-14-2018 ERIC OSPINA FDA Start: 03-14-2018 ERIC OSPINA FDA Start: 03-14-2018 ERIC OSPINA FDA Start: 03-14-2018 ERIC OSPINA FDA Start: 03-14-2018 ERIC OSPINA FDA Start: 03-14-2018 ERIC OSPINA FDA Start: 03-14-2018 ERIC OSPINA FDA Start: 03-14-2018 ERIC OSPINA FDA Start: 03-14-2018 ERIC OSPINA FDA Start: 03-14-2018 ERIC OSPINA FDA Start: 03-14-2018 ERIC OSPINA FDA Start: 03-14-2018 ERIC OSPINA FDA Start: 03-14-2018 ERIC OSPINA FDA Start: 03-14-2018 ERIC OSPINA FDA Start: 03-14-2018 ERIC OSPINA FDA Start: 03-14-2018 ERIC OSPINA FDA Start: 03-14-2018 ERIC OSPINA FDA Start: 03-14-2018 FDA Start: 03-14-2018 FDA Start: 03-14-2018 FDA Start: 03-14-2018 FDA Start: 03-14-2018 ERIC OSPINA FDA Start: 03-14-2018 ERIC OSPINA FDA Start: 03-14-2018 Goals Date Patient Goal Desired Activity /State Functional Status Date Assessment Result Facility 05-06-2022 Functional status Chair [facility] Work Phone: 04-06-2015 Are you deaf, or do you have serious difficulty hearing No 04/06/2015 9:22 AM Mehreen Thayer MA No [facility] 04-06-2015 Are you blind, or do you have serious difficulty seeing, even when wearing glasses No 04/06/2015 9:22 AM Mehreen Thayer MA No [facility] 04-06-2015 Do you have serious difficulty walking or climbing stairs Yes 04/06/2015 9:22 AM Mehreen Thayer MA Yes [facility] 04-06-2015 Do you have difficul ty dressing or bathing Yes 04/06/2015 9:22 AM Mehreen Thayer MA Yes [facility] 04-06-2015 Because of a physica l, mental, or emotional condition, do you have difficulty doing errands alone such as visiting a physician's office or shopping Yes 04/06/2015 9:22 AM Mehreen Thayer MA Yes [facility] NEGATED: Highlighted row Functional performance Functional status health issues are not documented Disease -[facility] Work Phone: Mental Status Date Assessment Result Facility 08-01-2022 Cognitive function Level Of Cons ciousness Awake;Alert;Appropriate ;Follows Commands [facility] Work Phone: 07-17-2022 Cognitive function Voice/Name;To uch/Jeremías g [facility] Work Phone: 05-06-2022 Cognitive function Voice/Name [facility] Work Phone: 05-03-2022 Cognitive function Level Of Cons ciousness Awake;Alert;Follows Commands [facility] Work Phone: 04-06-2015 Because of a physical, mental, or emotional condition, do you have serious difficulty concentrating, remembering, or making decisions Yes 04/06/2015 9:22 AM EDT Mehreen Burk MA Yes [facility] NEGATED: Highlighted row Cognitive function [Interpretation] Cognitive status health issues are not documented Disease -[facility] Work Phone: Clinical Notes 01-31-2013 to 12-30-2024 Telephone Encounter - Halie Braga - 02/15/2024 12:14 PM EDTTelephone Encounter - Halie Braga - 02/15/2024 12:14 PM EDTTelephone Encounter - ABBI Cassidy - 10/05/2023 12:25 PM EST Note Date & Type Note Facility 12-30-2024 Note SARS-COV-2 (AGENT OF COVID-19) RNA: Not detected INFLUENZA A RNA: Not detected INFLUENZA B RNA: Not detected RESPIRATORY SYNCYTIAL VIRUS (RSV) RNA: Not detected [facility] Comment on above: Performed By: #### 9 [id number] #### [facility] CLIA [id number] [address] [place] [address] OF [facility] 02-15-2024 Telephone encounter Note We have been unable to reach your patient to schedule their testing. Test Name: Spirometry 1st Attempt: MyChart 2nd Attempt: spoke to patient and she no longer wants to have the test done Deferred order [facility] 02-15-2024 Miscellaneous Notes We have been unable to reach your patient to schedule their testing. Test Name: Spirometry 1st Attempt: MyChart 2nd Attempt: spoke to patient and she no longer wants to have the test done Deferred order documented in this encounter [facility] 10-05-2023 Note Addended by: ELISA ARCE on: 10/05/2023 12:08 PM Modules accepted: Orders [facility] 10-05-2023 Telephone encounter Note Noted, thanks [facility] 10-05-2023 Miscellaneous Notes Noted, thanks Per message [...] to be cancelled via pool: [facility] ALS CLINICAL MASTER OCEAN YACHT (List Surgeon as provider in the TE) EGD done 06/16/23 [x] Clinical staff to note in specialty comment date patient has withdrawn from the program [x] Sent to [facility] and Surgical Navigation and Financial Teams for notification. Name of caller: Giovana Contact phone number: [phone] Relationship to Patient: patient Provider: Kareem Hartmann [...] their call: Yes documented in this encounter [facility] 10-05-2023 Note Addended by: ELISA ARCE on: 10/05/2023 12:08 PM Modules accepted: Orders [facility] 10-05-2023 Note Addended by: ELISA ARCE on: 10/05/2023 12:08 PM Modules accepted: Orders [facility] 10-05-2023 Miscellaneous Notes Addended by: ELISA ARCE [...] pended, Pre op check list scanned to [employer]. EGD order sent to ALS. Plan: I have recommended proceeding with the evaluation, workup and research consultant preoperative consultations and testing for the primary procedure as outlined below: BARIATRIC AND METABOLIC SURGERY [facility] PATIENT SUMMARY Giovana Ledezma 72 [...] she has been compliant with, both in [place] and now in [place] She will need 6 months of physician [...] Practitioner) Manjit Ga DO (Psychiatry) Initial New [facility] surgical patient Navigation & Financial [...] [] YES [] NO PRIMARY INSURANCE: Payor: [facility] MEDICARE / Plan[facility] / Product Type: Medicare HMO [...] 1) Scheduled at new pt surgeon visit: Log Snaker (RD) for a Nutrition Assessment (BNA) and [...] and after surgery. documented in this encounter [facility] 10-05-2023 Telephone encounter Note See TE from 09/21/23 where pt withdrew from surg program and non surg. [facility] 10-05-2023 Telephone encounter Note Per message in [...] to be cancelled via pool: [facility] ALS CLINICAL MASTER OCEAN YACHT (List Surgeon as provider in the TE) EGD done 06/16/23 [x] Clinical staff to note in specialty comment date patient has withdrawn from the program [x] Sent to [facility] and Surgical Navigation and Financial Teams for notification. [facility] 09-28-2023 Telephone encounter Note One month sent but pt needs to complete repeat labs- please advise, thanks! [facility] 09-28-2023 Miscellaneous Notes One month sent but pt needs to complete repeat labs- please advise, thanks! Received fax from [facility] requesting refills for Vit B-12 500 mcg. documented in this encounter [facility] 09-28-2023 Telephone encounter Note Received fax from [facility] requesting refills for Vit B-12 500 mcg. [facility] 09-21-2023 Telephone encounter Note Name of caller: Giovana Contact phone number: [phone] Relationship to Patient: patient Provider: Kareem Hartmann [...] business hours to return their call: Yes [facility] 09-21-2023 Miscellaneous Notes Name of caller: Giovana Contact phone number: [phone] Relationship to Patient: patient Provider: Kareem Hartmann [...] their call: Yes documented in this encounter [facility] 09-21-2023 History of Present illness Narrative I called Ms. Powell (using the phone number listed in [employer]) to discuss how she is tolerating the Trulicity. She did not shrimp picker the phone. Kareem Hartmann MD 3:14 PM 09/21/2023 documented in this encounter [facility] 09-03-2023 History of Present illness Narrative WEIGHT [...] the Trulicity, contact PCP and Weight Management [place], and seek immediate medical attention for urgent [...] follow up with her sleep specialist in [place] --smoking cessation: recently quit with nicotine patch [...] --Leukocytosis and elevated platelets: follows with hematology/oncology ([facility], Dr. Russell) Plan of care discussed [...] patient's medications and diagnoses listed in Epic. [facility] NON-SURGICAL WEIGHT LOSS MANAGEMENT PROGRAM ROOMING [...] Path) Date of Initial Consultation:@FLOWLAST(8961)@ Initial Weight: @FLOWLAST([id number])@ Initial BMI: @FLOWLAST([id number])@ [place]apello Body Weight: @FLOWLAST([id number])@ Excess Body Weight: @FLOWLAST([id number])@ Body Fat Percentage: No flowsheet data found. [...] Juanita Daigle MA documented in this encounter [facility] 08-12-2023 Telephone encounter Note Patient states she is switching to the NSRUG program with Dr. Hartmann. [facility] 08-10-2023 Telephone encounter Note Patient needs scheduled for psychology please. On d/e 5 out of 6, thanks. [facility] 08-10-2023 Miscellaneous Notes Patient needs scheduled for [...] recommended proceeding with the evaluation, workup and research consultant preoperative consultations and testing for the primary procedure as outlined below: BARIATRIC AND METABOLIC SURGERY [facility] PATIENT SUMMARY Giovana Ledezma 72 [...] she has been compliant with, both in [place] and now in [place] She will need 6 months of physician [...] Practitioner) Manjit Ga DO (Psychiatry) Initial New [facility] surgical patient Navigation & Financial [...] [] YES [] NO PRIMARY INSURANCE: [facility] / [facility] / Product Type: Medicare [...] 1) Scheduled at new pt surgeon visit: Log Snaker (RD) for a Nutrition Assessment (BNA) and [...] and after surgery. documented in this encounter [facility] 08-10-2023 Note [facility] SAULT SURGICAL WEIGHT LOSS MANAGEMENT PROGRAM PROGRESS NOTE FOLLOW UP Patient: Giovana Powell Date of : 1950 Service Date: 08/10/2023 DE Visit number: 4 of 6 Pre Program Weight Metrics Date of Initial Consultation:@FLOWLAST(8961)@ Initial Weight: @FLOWLAST([id number])@ Initial BMI: @FLOWLAST([id number])@ Sapello Body Weight: @FLOWLAST([id number])@ Excess Body Weight: @FLOWLAST([id number])@ Follow Up Weight Metrics Last Three Weights [...] home O2 Completed by: Juanita Daigle MA [facility] 08-10-2023 History of Present illness Narrative [facility] SURGICAL WEIGHT LOSS MANAGEMENT PROGRAM PROGRESS NOTE FOLLOW UP Patient: Giovana Powell Date of : 1950 Service Date: 08/10/2023 DE Visit number: 4 of 6 Pre Program Weight Metrics Date of Initial Consultation:@FLOWLAST(8961)@ Initial Weight: @FLOWLAST([id number])@ Initial BMI: @FLOWLAST([id number])@ [place] Body Weight: @FLOWLAST([id number])@ Excess Body Weight: @FLOWLAST([id number])@ Follow Up Weight Metrics Last Three Weights [...] home O2 Completed by: Juanita Daigle MA [facility] - SURGICAL WEIGHT LOSS MANAGEMENT PROGRAM [...] follow up with her sleep specialist in [place] --smoking cessation: recently quit with nicotine patch [...] --Leukocytosis and elevated platelets: follows with hematology/oncology ([facility], Dr. Russell) Advised patient to continue [...] listed in Epic. documented in this encounter [facility] 08-05-2023 History of Present illness Narrative [facility] BARIATRIC NUTRITION ASSESSMENT / DIET & EXERCISE SURGICAL WEIGHT LOSS MANAGEMENT PROGRAM Date: 08/05/23 Patient Name: iGovana Powell Date of : 1950 Type of [...] all meals Bariatric Nutrition Assessment completed by: Douglas Mason RD documented in this encounter [facility] 07-14-2023 Telephone encounter Note So far, we haven't received anything from the pharmacy about a prior authorization for Trulicity. When I spoke to the patient, I also told her to call us if there was any issues. [facility] 07-14-2023 Miscellaneous Notes So far, we haven't [...] Dr. Baird because she is a diabetic now. Mounjaro prior authorization was denied by her [...] a call back. documented in this encounter [facility] 07-14-2023 Telephone encounter Note Thank you, yes Trulicity was recommended by the insurance company since Mounjaro is not covered. How will we know if Trulicity is covered by insurance? Thanks again [facility] 07-14-2023 Telephone encounter Note FYI: Spoke with patient. States that she was put on Metformin from Dr. Baird because she is a diabetic now. Mounjaro prior authorization was denied by her insurance. Pt was told that Trulicity was sent into her pharmacy, but pt seemed unaware that it was sent it. She was going to check with her pharmacy and was told if there was any issues to call us back. [facility] 07-10-2023 Telephone encounter Note Signed, thanks [employer] 07-10-2023 Miscellaneous Notes Signed, thanks Noted, thank [...] sent regarding labs. documented in this encounter [facility] 07-10-2023 Telephone encounter Note Noted, thank you! [employer] Work Phone: 07-10-2023 Telephone encounter Note Called [...] months. Orders pending. Please sign. Thank you! [facility] 07-10-2023 History of Present illness Narrative Message regarding prior authorization reviewed. Recommendation is to substitute Trulicity for Mounjaro. Changes made and prescription sent to pharmacy. documented in this encounter [facility] 07-10-2023 Telephone encounter Note I called Ms. [...] questions/concerns. Kareem Hartmann MD 9:45 AM 07/10/2023 [facility] 07-10-2023 Miscellaneous Notes I called Ms. Powell [...] a call back. documented in this encounter [facility] 07-10-2023 Telephone encounter Note Started PA through C[facility] 07-09-2023 Telephone encounter Note Patient left stating she has a question for Dr. Hartmann and would like a call back. [facility] 07-09-2023 Telephone encounter Note Pre-op_JZ 07/09/2023 Vitamin D: 20 (L) Magnesium: 2.5 (H) Vitamin B12: 333 (L end NL) MyChart message sent regarding labs. [facility] 07-09-2023 Note Addended by: MARCELO LAM on: 07/09/2023 10:11 AM Modules accepted: Orders [facility] 07-09-2023 Note [facility] SURGICAL WEIGHT LOSS MANAGEMENT PROGRAM PROGRESS NOTE FOLLOW UP Patient: Giovana Powell Date of : 1950 Service Date: 07/09/2023 DE Visit number: 3 of 6 Pre Program Weight Metrics Date of Initial Consultation:@FLOWLAST(8961)@ Initial Weight: @FLOWLAST([id number])@ Initial BMI: @FLOWLAST([id number])@ [place] Body Weight: @FLOWLAST([id number])@ Excess Body Weight: @FLOWLAST([id number])@ Follow Up Weight Metrics Last Three Weights [...] home O2 Completed by: Evelyn Chambers MA [facility] 07-09-2023 Note Addended by: MARCELO LAM on: 07/09/2023 10:11 AM Modules accepted: Orders [facility] 07-09-2023 Note Addended by: MARCELO LAM on: 07/09/2023 10:11 AM Modules accepted: Orders [facility] 07-09-2023 Note Addended by: MARCELO LAM on: 07/09/2023 10:11 AM Modules accepted: Orders [facility] 07-09-2023 Note Addended by: MARCELO LAM on: 07/09/2023 10:11 AM Modules accepted: Orders [facility] 07-09-2023 Miscellaneous Notes Addended by: MARCELO LAM [...] recommended proceeding with the evaluation, workup and research consultant preoperative consultations and testing for the primary procedure as outlined below: BARIATRIC AND METABOLIC SURGERY [facility] PATIENT SUMMARY Giovana Ledezma 72 [...] she has been compliant with, both in [place] and now in [place] She will need 6 months of physician [...] Practitioner) Manjit Ga DO (Psychiatry) Initial New [facility] surgical patient Navigation & Financial [...] [] YES [] NO PRIMARY INSURANCE: [facility] / Plan: [facility] / Product Type: Medicare HMO [...] 1) Scheduled at new pt surgeon visit: Log Snaker (RD) for a Nutrition Assessment (BNA) and [...] and after surgery. documented in this encounter 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 Weight gain will likely result when [...] follow up with her sleep specialist in [place], she also requires pulmonology clearance prior to [...] listed in Epic. documented in this encounter [facility] 07-09-2023 History of Present illness Narrative [facility] SURGICAL WEIGHT LOSS MANAGEMENT PROGRAM PROGRESS NOTE FOLLOW UP Patient: Giovana Powell Date of : 1950 Service Date: 07/09/2023 DE Visit number: 3 of 6 Pre Program Weight Metrics Date of Initial Consultation:@[facility](9261)@ Initial Weight: @FLOWLAST([id number])@ Initial BMI: @FLOWLAST([id number])@ [place]ello Body Weight: @FLOWLAST([id number])@ Excess Body Weight: @FLOWLAST([id number])@ Follow Up Weight Metrics Last Three Weights [...] follow up with her sleep specialist in [place], she also requires pulmonology clearance prior to [...] continue monthly visits until authorization/surgery date obtained. ([place]) No orders of the defined types were [...] listed in Epic. documented in this encounter [facility] 06-25-2023 Note 06/25/2023 REFERRING PHYSICIAN: LEOPOLDO BAIRD [...] tolerate CPAP, I have tried 100 different times. The only problem she is ever had with anesthesia sounds like it was more with conscious sedation, she had skin cancer and a plastic surgeon was resecting the cancer on her face and she stopped breathing, they had to put a tube down my throat. ROS: Review of Systems Constitutional: Negative. HENT: [...] [facility] CHOLECYSTECTOMY 2019 laparoscopic -[place] HYSTERECTOMY [facility] Social History: Social History Socioeconomic History [...] (06/25/23905) Resp 18 (more content not included)... [facility] 06-25-2023 History of Present illness Narrative [...] tolerate CPAP, I have tried 100 different times. The only problem she is ever had with anesthesia sounds like it was more with conscious sedation, she had skin cancer and a plastic surgeon was resecting the cancer on her face and she stopped breathing, they had to put a tube down my throat. ROS: Review of Systems Constitutional: Negative. HENT: [...] Dr. Newell/ [facility] CHOLECYSTECTOMY 2019 laparoscopic -[place] HYSTERECTOMY [facility] Social History: Social History Socioeconomic History [...] for Spirometry results. documented in this encounter [facility] 06-25-2023 Instructions Isha Garcia Rai, MA - 06/25/2023 10:00 AM EDT YOUR APPOINTMENT TODAY WAS WITH THE [facility] LUNG NODULE CLINIC, COPD CLINIC, PULMONARY AND SLEEP MEDICINE OFFICE. PLEASE CALL OUR OFFICE AT [phone] IF YOU HAVE NOT RECEIVED YOUR TEST [...] to make improvements. COVID-19 VACCINATION INFORMATION: PH. [phone] HEALTH.[email or web address]/[email or web address]/VACCINE [facility] Central Scheduling [phone] [facility] Sleep Scheduling [phone] documented in this encounter [facility] 06-17-2023 Note [facility] SAULT SURGICAL WEIGHT LOSS MANAGEMENT PROGRAM PROGRESS NOTE FOLLOW UP Patient: Giovana Powell Date of : 1950 Service Date: 06/17/2023 DE Visit number: 2 of 6 Pre Program Weight Metrics Date of Initial Consultation:@FLOWLAST(8961)@ Initial Weight: @FLOWLAST([id number])@ Initial BMI: @FLOWLAST([id number])@ [place]ello Body Weight: @FLOWLAST([id number])@ Excess Body Weight: @FLOWLAST([id number])@ Follow Up Weight Metrics Last Three Weights [...] home O2 Completed by: Nata Bro LPN [facility] 06-17-2023 History of Present illness Narrative [facility]IATRIC CARE [facility] SURGICAL WEIGHT LOSS MANAGEMENT PROGRAM PROGRESS NOTE FOLLOW UP Patient: Giovana Powell Date of : 1950 Service Date: 06/17/2023 DE Visit number: 2 of 6 Pre Program Weight Metrics Date of Initial Consultation:@FLOWLAST(8961)@ Initial Weight: @FLOWLAST([id number])@ Initial BMI: @FLOWLAST([id number])@ Sapello Body Weight: @FLOWLAST([id number])@ Excess Body Weight: @FLOWLAST([id number])@ Follow Up Weight Metrics Last Three Weights [...] updated and completed. documented in this encounter [facility] 06-16-2023 Note Patient: Giovana Powell Procedure Summary Date: 06/16/23 Room / Location: [facility] AR[facility] ENDO SEC 3 / ARCH [...] 16 06/16/23 0853 SpO2 99 % 06/16/23 08 Anesthesia Post Evaluation Patient location during evaluation: [...] once all PACU criteria has been met. [facility] 06-16-2023 Note Patient: Giovana Powell Procedure [...] of surgery or procedure by MD, APC digital press operator proxy staff ([id number]) The patient did [...] opportunity for questions and acknowledgement of understanding. [facility] 06-16-2023 Note Endoscopy Center- [facility] Patient Name: Giovana Powell Procedure Date: 06/16/2023 8:44 AM Gender: Female Date of : 1950 Age: 72 Admit Type: Outpatient Note Status: Finalized Endoscopist: Susie Ledezma MD, [id number] Procedure: Upper GI endoscopy Indications: Suspected gastro-esophageal [...] immediate complications. Procedure Code(s): --- Professional --- 77061, Esophagogastroduodenoscopy, flexible, transoral; with biopsy, single or multiple --- Technical --- 64776, Esophagogastroduodenoscopy, flexible, transoral; with biopsy, single or multiple Diagnosis Code(s): --- Professional --- K29.70, Gastritis, unspecified, without bleeding Z01.818, Encounter for other preprocedural examination E66.01, Morbid (severe) obesity due to excess calories --- Technical --- K29.70, Gastritis, unspecified, without bleeding Z01.818, Encounter for other preprocedural examination E66.01, Morbid (severe) obesity due to excess calories CPT copyright 2021 [employer]. All rights reserved. The codes documented in this report are preliminary and upon claim clinician review may be revised to meet current compliance requirements. Attending Participation: I personally performed the entire procedure. Susie Ledezma MD 06/16/2023 9:09:17 AM This report has been signed electronically. Number of Addenda: 0 Note Initiated On: 06/16/2023 8:44 AM [facility] 06-16-2023 Note Patient: Giovana Powell Procedure Information Date/Time: 06/16/23 0900 Procedure: EGD WITH BIOPSY - 30 MINUTES Location: [address] ENDO SEC 3 / ARCH Gastroenterology [...] Newell/ Vickie lowry 2019: CHOLECYSTECTOMY Comment: laparoscopic -[place] No date: HYSTERECTOMY Comment: [facility] Social History: TOBACCO: reports that she [...] previous problems with anesthesia ASA 3 TIVA (stopped breathing, quit smoking x 10 days) The patient [...] found for this or any previous visit. [facility] 06-16-2023 Note Formatting of this n ote might be different from the original. Endoscopy Center- [facility] Patient Name: Giovana Powell Procedure Date: 06/16/2023 8:44 AM Gender: Female Date of : 1950 Age: 72 Admit Type: Outpatient Note Status: Finalized Endoscopist: Susie Ledezma MD, [id number] Procedure: Upper GI endoscopy Indications: Suspected gastro-esophageal [...] immediate complications. Procedure Code(s): --- Professional --- 34293, Esophagogastroduodenoscopy, flexible, transoral; with biopsy, single or multiple --- Technical --- 86633, Esophagogastroduodenoscopy, flexible, transoral; with biopsy, single or multiple Diagnosis Code(s): --- Professional --- K29.70, Gastritis, unspecified, without bleeding Z01.818, Encounter for other preprocedural examination E66.01, Morbid (severe) obesity due to excess calories --- Technical --- K29.70, Gastritis, unspecified, without bleeding Z01.818, Encounter for other preprocedural examination E66.01, Morbid (severe) obesity due to excess calories CPT copyright 2021 [employer]. All rights reserved. The codes documented in this report are preliminary and upon claim clinician review may be revised to meet current compliance requirements. Attending Participation: I personally performed the entire procedure. Susie Ledezma MD 06/16/2023 9:09:17 AM This report has been signed electronically. Number of Addenda: 0 Note Initiated On: 06/16/2023 8:44 AM [facility] [employer] 06-16-2023 Note Formatting of this n ote might be different from the original. [facility] Powell Procedure Date: 06/16/2023 8:44 AM Gender: Female Date of : 1950 Age: 72 Admit Type: Outpatient Note Status: Finalized Endoscopist: Susie Ledezma MD, [id number] Procedure: Upper GI endoscopy Indications: Suspected gastro-esophageal [...] immediate complications. Procedure Code(s): --- Professional --- 55180, Esophagogastroduodenoscopy, flexible, transoral; with biopsy, single or multiple --- Technical --- 29711, Esophagogastroduodenoscopy, flexible, transoral; with biopsy, single or multiple Diagnosis Code(s): --- Professional --- K29.70, Gastritis, unspecified, without bleeding Z01.818, Encounter for other preprocedural examination E66.01, Morbid (severe) obesity due to excess calories --- Technical --- K29.70, Gastritis, unspecified, without bleeding Z01.818, Encounter for other preprocedural examination E66.01, Morbid (severe) obesity due to excess calories CPT copyright 2021 [employer]. All rights reserved. The codes documented in this report are preliminary and upon claim clinician review may be revised to meet current compliance requirements. Attending Participation: I personally performed the entire procedure. Susie Ledezma MD 06/16/2023 9:09:17 AM This report has been signed electronically. Number of Addenda: 0 Note Initiated On: 06/16/2023 8:44 AM [facility] [employer] 06-16-2023 Miscellaneous Notes [facility] Name: Giovana Powell Procedure Date: 06/16/2023 8:44 AM Gender: Female Date of : 1950 Age: 72 Admit Type: Outpatient Note Status: Finalized Endoscopist: Susie Ledezma MD, [id number] Procedure: Upper GI endoscopy Indications: Suspected gastro-esophageal [...] immediate complications. Procedure Code(s): --- Professional --- 45671, Esophagogastroduodenoscopy, flexible, transoral; with biopsy, single or multiple --- Technical --- 05975, Esophagogastroduodenoscopy, flexible, transoral; with biopsy, single or multiple Diagnosis Code(s): --- Professional --- K29.70, Gastritis, unspecified, without bleeding Z01.818, Encounter for other preprocedural examination E66.01, Morbid (severe) obesity due to excess calories --- Technical --- K29.70, Gastritis, unspecified, without bleeding Z01.818, Encounter for other preprocedural examination E66.01, Morbid (severe) obesity due to excess calories CPT copyright 2021 [employer]. All rights reserved. The codes documented in this report are preliminary and upon claim clinician review may be revised to meet current compliance requirements. Attending Participation: I personally performed the entire procedure. Susie Ledezma MD 06/16/2023 9:09:17 AM This report has been signed electronically. Number of Addenda: 0 Note Initiated On: 06/16/2023 8:44 AM documented in this encounter [facility] 06-15-2023 Note [facility] - Surgery [facility] Physicians Surgery PATIENT NAME: Giovana Powell [...] Vickie general CHOLECYSTECTOMY 2019 laparoscopic -[place] HYSTERECTOMY [facility] Current Medications: Current Facility-Administered Medications Medication [...] Brother Obesity Brot (more content not included)... [facility] 06-15-2023 History and physical note Images from the original note were not included. [facility] - Surgery [facility] Physicians Surgery PATIENT NAME: Giovana Powell [...] Dr. Newell/ Vickie general CHOLECYSTECTOMY 2019 laparoscopic -[place] HYSTERECTOMY [facility] Current Medications: Current Facility-Administered Medications Medication [...] and willingness to proceed with plan. ' [facility] 06-15-2023 History and physical note Images from the original note were not included. [facility] - Surgery [facility] Physicians Surgery PATIENT NAME: Giovana Powell [...] Dr. Newell/ Vickie general CHOLECYSTECTOMY 2019 laparoscopic -[place] HYSTERECTOMY [facility] Current Medications: Current Facility-Administered Medications Medication [...] by mouth in the morning. 04/22/23 Historical ProviderMD lamoTRIgine (LaMICtal) 200 MG tablet Take 1 [...] with plan. ' documented in this encounter [facility] 06-08-2023 History of Present illness Narrative [facility] BARIATRIC NUTRITION ASSESSMENT / [...] they must have someone in their home / for the first week following surgery, or [...] all meals Bariatric Nutrition Assessment completed by: Douglas Mason RD documented in this encounter [facility] 06-08-2023 History of Present illness Narrative [facility] BARIATRIC NUTRITION ASSESSMENT / DIET & EXERCISE [...] all meals Bariatric Nutrition Assessment completed by: Douglas Mason RD documented in this encounter [facility] 05-15-2023 Telephone encounter Note Orders mailed- with pain management clearance and neurology clearance form [facility] 05-15-2023 Miscellaneous Notes Orders mailed- with pain [...] recommended proceeding with the evaluation, workup and research consultant preoperative consultations and testing for the primary procedure as outlined below: BARIATRIC AND METABOLIC SURGERY [facility] PATIENT SUMMARY Giovana Ledezma 72 y.o. female with Body mass index is 42.73 kg/m . Planned Procedures: Laparoscopic Sleeve Gastrectomy and Laparoscopic Liver Biopsy DM[] HTN[x] JENNIFER[x] GERD[] HL[x] OA[] TOB[x] Date of Surgery: TBHari SHEARERE INITIAL PRE-OP TESTING ORDERS/ RESULTS Labwork [x] [...] she has been compliant with, both in [place] and now in [place] She will need 6 months of physician [...] Practitioner) Manjit Ga DO (Psychiatry) Initial New [facility] surgical patient Navigation & Financial [...] [] YES [] NO PRIMARY INSURANCE: Payor: [facility] MEDICARE / Plan: [facility] DUAL ADVANTAGE / Product Type: Medicare [...] 1) Scheduled at new pt surgeon visit: Log Snaker (RD) for a Nutrition Assessment (BNA) and [...] and after surgery. documented in this encounter [facility] 05-14-2023 History of Present illness Narrative BARIATRIC CARE [...] Weight: 223 lb 6.4 oz (101 kg) [place] Body Weight: 120 lb (54.4 kg) Initial [...] home O2 Completed by: Juanita Daigle MA [facility] SURGICAL WEIGHT LOSS MANAGEMENT PROGRAM PHYSICIAN [...] Dr. Newell/ Vickie general CHOLECYSTECTOMY 2019 laparoscopic -[place] HYSTERECTOMY [facility] Family History Problem Relation Name Age [...] No medications on file Discontinued Medications NYAMYC 198127 UNIT/GM POWDER This patient's excess weight is causing the following co-morbid conditions at this time:GERD, Fatty Liver Disease, High Cholesterol, HTN, JENNIFER with or without CPAP, and Other pre-diabetes Initial Diet & Exercise/SPR Visit Weight Metrics: Date of Initial Diet & Exercise Visit: Consult Date: 05/14/23 Initial Weight: Initial Weight: 223 lb 6.4 oz (101 kg) Initial BMI: Initial BMI: 43.63 [place] Body Weight: [place] Body Weight: 120 lb (54.4 kg) Excess [...] DIET HISTORY FORM with patient (located in [employer]) I reviewed all of the patient's medications [...] follow up with her sleep specialist in [place], she also requires pulmonology clearance prior to [...] 05/14/2023 1:31 PM documented in this encounter [facility] 05-13-2023 Note Addended by: BRETT BERNAL on: 05/13/2023 09:07 AM Modules accepted: Orders [facility] 05-13-2023 Note Addended by: BRETT BERNAL on: 05/13/2023 09:07 AM Modules accepted: Orders [facility] 05-13-2023 Note Addended by: BRETT BERNAL on: 05/13/2023 09:07 AM Modules accepted: Orders [facility] 05-13-2023 Note Addended by: BRETT BERNAL on: 05/13/2023 09:07 AM Modules accepted: Orders [facility] 05-13-2023 Note Addended by: BRETT BERNAL on: 05/13/2023 09:07 AM Modules accepted: Orders [facility] 05-13-2023 Telephone encounter Note Signed and printed orders Neuro clearance will be needed once we know name of provider- she has appt in May Psych clearance will defer to our psychologists to obtain records from Dr. Ga [facility] 05-11-2023 Note Plan: I have recommended proceeding with the evaluation, workup and research consultant preoperative consultations and testing for the primary procedure as outlined below: BARIATRIC AND METABOLIC SURGERY [facility] PATIENT SUMMARY Giovana Ledezma 72 y.o. female with Body mass index is 42.73 kg/m?. Planned Procedures: Laparoscopic Sleeve Gastrectomy and Laparoscopic Liver Biopsy DM[] HTN[x] JENNIFER[x] GERD[] HL[x] OA[] TOB[x] Date of Surgery: TBD JZ EFEWONGBE OLEGHE INITIAL PRE-OP TESTING ORDERS/ RESULTS Labwork [x] [...] she has been compliant with, both in [place] and now in [place] She will need 6 months of physician [...] PATRICIO (Nurse Practitioner) Manjit Ga DO (Psychiatry) [facility] 05-11-2023 Note Addended by: Jerrell MORRIS on: 05/11/2023 08:06 AM Modules accepted: Orders [facility] 05-11-2023 Note Addended by: Jerrell MORRIS on: 05/11/2023 08:06 AM Modules accepted: Orders [facility] 05-11-2023 Note Addended by: Jerrell MORRIS on: 05/11/2023 08:06 AM Modules accepted: Orders [facility] 05-11-2023 Note Addended by: Jerrell MORRIS on: 05/11/2023 08:06 AM Modules accepted: Orders [facility] 05-11-2023 Note Addended by: Jerrell MORRIS on: 05/11/2023 08:06 AM Modules accepted: Orders [facility] 05-11-2023 Note Addended by: Jerrell MORRIS on: 05/11/2023 08:06 AM Modules accepted: Orders [facility] 05-11-2023 Miscellaneous Notes Addended by: MONICA MORRIS on: 05/11/2023 08:06 AM Modules accepted: Orders Orders pended, Pre op check list scanned to [employer]. EGD order sent to [facility]. Plan: I have recommended proceeding with the evaluation, workup and research consultant preoperative consultations and testing for the primary procedure as outlined below: BARIATRIC AND METABOLIC SURGERY [facility] PATIENT SUMMARY Giovana Ledezma 72 [...] she has been compliant with, both in [place] and now in [place] She will need 6 months of physician [...] Practitioner) Manjit Ga DO (Psychiatry) Initial New [facility] surgical patient Navigation & Financial Counseling Discussion Patient Communication: In office SURGEON: [x] MADINA [] REED [] MP [] TB [] LM PROCEDURE: [...] [] YES [] NO PRIMARY INSURANCE: Payor: [facility] MEDICARE / Plan: [facility] DUAL [facility]VANT[facility] / Product Type: Medicare [...] 1) Scheduled at new pt surgeon visit: Log Snaker (RD) for a Nutrition Assessment (BNA) and [...] and after surgery. documented in this encounter [facility] 05-11-2023 Telephone encounter Note Orders pended, Pre op check list scanned to [employer]. EGD order sent to [facility]. [facility] 05-11-2023 Telephone encounter Note Plan: I have recommended proceeding with the evaluation, workup and research consultant preoperative consultations and testing for the primary procedure as outlined below: BARIATRIC AND METABOLIC SURGERY [facility] PATIENT SUMMARY Giovana Ledezma 72 [...] she has been compliant with, both in [place] and now in [place] She will need 6 months of physician [...] PATRICIO (Nurse Practitioner) Manjit Ga DO (Psychiatry) [facility] 04-30-2023 Note Initial New BCC surg [...] [] YES [] NO PRIMARY INSURANCE: Payor: [facility] MEDICARE / Plan: [facility] DUAL ADVANTAGE / Product Type: Medicare HMO [...] 1) Scheduled at new pt surgeon visit: Log Snaker (RD) for a Nutrition Assessment (BNA) and [...] and lab/testing results before and after surgery. [facility] 04-30-2023 Telephone encounter Note Initial New [facility] surgical patient Navigation & Financial [...] [] YES [] NO PRIMARY INSURANCE: Payor: [facility] MEDICARE / Plan: [facility] DUAL ADVANTAGE / Product Type: Medicare [...] 1) Scheduled at new pt surgeon visit: Log Snaker (RD) for a Nutrition Assessment (BNA) and [...] and lab/testing results before and after surgery. [facility] 04-30-2023 History of Present illness Narrative Images from the original note were not included. [facility] SURGICAL PROGRAM INITIAL EVALUATION [...] Dr. Newell/ Vickie general CHOLECYSTECTOMY 2019 laparoscopic -[place] HYSTERECTOMY [facility] Social History: This patient is unaccompanied [...] I advised them to discuss with their physician/drying equipment operator regarding contraception to prevent during this period of time after surgery. In addition, all patients were counseled on compliance with prescribed vitamin supplementation, office visit follow-up and compliance with program standards. Plan: I have recommended proceeding with the evaluation, workup and research consultant preoperative consultations and testing for the primary procedure as outlined below: BARIATRIC AND METABOLIC SURGERY [facility] PATIENT SUMMARY Giovana Ledezma 72 [...] she has been compliant with, both in [place] and now in [place] She will need 6 months of physician [...] personally performed the evaluation and management of iGovana Powell in the development of a treatment [...] DO (Addiction Medicine) Dejah Drew APRN - CONTROL ELECTRICIAN (Nurse Practitioner) Manjit Ga DO (Psychiatry) [facility] SURGICAL WEIGHT LOSS MANAGEMENT PROGRAM [...] see TE created documented in this encounter [facility] 12-18-2022 History of Present illness Narrative Chief [...] provider 01/08/23. Oarrs reviewd, still on sublocade. NataliLeigh Nunnhansel engaged in a telehealth session via PHONE with this provider practicing within the [facility]. The identity of Jacklyn Abraham was [...] and eating well, mood stable, busy with pentecostalism and groups. No hallucinations, still lost track [...] AM Final 11/17/2022 12:07 PM NA Facility: [facility] Specimen Source: NA Admitting Provider: Ordered [...] 3/uL NUCLEATED RBC 0 0-5 Performed By: [facility] [address] [place] [address] [place], [place], [address] Basic Metabolic Profile (BMP) Date Collected Date Received Status Reported/Status Changed Priority 11/17/2022 9:22 AM 11/17/2022 9:22 AM Final 11/17/2022 12:32 PM NA Facility: [facility] Specimen Source: NA Admitting Provider: Ordered [...] 21.0-32.0 mmol/L GAP 5 5-15 Performed By: [facility] [address] [place], [address] Wt Readings from Last 3 Encounters: No [...] Diagnoses: F31.9 Bipolar disorder with psychotic features (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) F11.20 Opioid use disorder, moderate, on maintenance therapy ([facility]) Continue medication as above, has [...] Patient understands to call Mobile Crisis at [phone], call [phone], or go to the nearest ER as appropriate in case of thoughts of harm to self or others, or acute onset of intolerable side effects. 4.) [x] Physician/WARP SCOURING VAT TENDER Order: See PharmD , milk bottling machine operator to document data and make observations of the patient, including observations of physical and mental health symptoms, medication response, side effects and adherence, as well as education. RN will assess patient's health status, provide education with pill boxes and/or administer long-acting injections per orders. documented in this encounter [place] [employer] Work Phone: 12-02-2022 History of Present illness Narrative Jacklyn Powell engaged in a telehealth session via PHONE with this provider practicing within the [facility]. The identity of Jacklyn Abraham was verified by their date of , (1950), and last four digits of their social security number, ([id number]). The provider demonstrated that confidentially was preserved at their location. Jacklyn Abraham was informed that they were responsible for ensuring confidentially was secured at their location. Jacklyn Abraham's location was documented for emergency purposes. Natali was informed of the necessary steps that [...] -Prazosin 1mg tablet: 3T PO HS -Called [facility] to verify it patient receiving medications, patient last got her medications in an adherence pack on 11/07/2022 (likely billed as keys so it won't show up in the dispense report) *Sublocade 100mg/0.5mL: [facility] LF 11/27/22 (prescribed by Adelina Lin DO in [place]) SUBJECTIVE: Spoke with this patient today for a refill appointment, patient has a PMH of bipolar disorder, DID, and severe linnea. She is switching care to a new psychiatrist closer to her home in [place], but her appointment is not until late [...] time. Gets medications in adherence packaging via [facility] in [place]; denies recent missed doses. Medications: Current Outpatient [...] cups of coffee per day PCP: In [place] Pharmacy: [facility] in [place] Vaccinations: Received annual flu on 08/27/22; no [...] Tova Bates PharmD documented in this encounter [place] [employer] Work Phone: 09-02-2021 Miscellaneous Notes CD / reports READY FOR DOOR TRIMMER [facility] RADIOLOGY Patient wants a copy of the xray from 08/29/2021 and report. Patient will shrimp picker on Thursday. Thank you, Blanche documented in this encounter [facility] 08-29-2021 History of Present illness Narrative Radiology Service Progress Note PATIENT NAME: Giovana [...] RT Desean(R) August 29, 2021 5:27 PM documented in this encounter [facility] 01-31-2013 History of Past i llness Narrative Problem Noted Date Resolved Date Basal cell carcinoma, eyelid 01/31/2013 Open wound(s) (multiple) of unspecified site(s), without mention of complication 12/02/2012 12/30/2016 Neoplasm of uncertain behavior of skin: R/O BCC Skin Cancer 09/08/2012 12/30/2016 BCC (basal cell carcinoma), face 09/08/2012 12/30/2016 BCC (basal cell carcinoma), eyelid 09/08/2012 12/30/2016 Skin cancer of face 09/08/2012 12/30/2016 Actinic skin damage 09/08/2012 12/30/2016 Melanocytic nevi of face 09/08/2012 017 Solar lentigo 09/08/2012 12/30/2016 Patellar tendonitis 12/29/2011 02/04/2012 Special screening for malignant neoplasms, colon 06/11/2011 02/04/2012 documented as of this encounter (statuses as of 04/16/2022) [facility] HospitalEvaluation [facility]* Diagnosis Onset Date Resolution Status Left wrist fracture acute Debility acute Frequent falls acute Left ankle pain acute Left wrist fracture acute Debility acute Bipolar disorder chronic Hypertension chronic Urinary incontinence chronic Left carpal tunnel syndrome acute [facility] Work Phone: Evaluation note* Diagnosis Onset Date Resolution Status Debility acute Frequent falls acute Left ankle pain acute Left wrist fracture acute Debility acute Bipolar disorder chronic Hypertension chronic Urinary incontinence chronic Left carpal tunnel syndrome acute [facility] Work Phone: Evaluation note* Diagnosis Onset Date Resolution Status Left wrist fracture acute Debility acute Bipolar disorder chronic Hypertension chronic Urinary incontinence chronic Left carpal tunnel syndrome acute Dizziness acute Bipolar disorder chronic Hypertension chronic [facility] Work Phone: Evaluation note* Diagnosis Onset Date Resolution Status Dizziness acute Bipolar disorder chronic Hypertension chronic Essential thrombocytosis chr onic Thrombocytosis chronic Osteoarthritis resolved Essential thrombocythemia ch ronic Acute hypotension acute Acute kidney injury acute Dehydration acute Generalized weakness acute Hypokalemia acute Hyponatremia acute Urinary tract infection acut e [facility] Work Phone: Evaluation note* Diagnosis Onset Date Resolution Status Dizziness acute Bipolar disorder chronic Hypertension chronic Essential thrombocytosis chr onic Thrombocytosis chronic Osteoarthritis resolved Essential thrombocythemia ch ronic Acute kidney injury acute Generalized weakness acute Hypokalemia acute Hyponatremia chronic Acute hypotension resolved Dehydration resolved Urinary tract infection reso lved Acute kidney injury acute Hypokalemia acute Hyponatremia chronic Acute hypotension resolved Dehydration resolved Urinary tract infection reso lved Pressure ulcer noneactive [facility] Work Phone: Evaluation note* Diagnosis Onset Date Resolution Status Dizziness acute Bipolar disorder chronic Hypertension chronic Essential thrombocytosis chr onic Thrombocytosis chronic Osteoarthritis resolved Essential thrombocythemia ch ronic Acute kidney injury acute Generalized weakness acute Hypokalemia acute Acute hypotension resolved Dehydration resolved Hyponatremia resolved Urinary tract infection reso lved Acute kidney injury acute Hypokalemia acute Acute hypotension resolved Dehydration resolved Hyponatremia resolved Urinary tract infection reso lved Pressure ulcer noneactive [facility] Work Phone: Evaluation note* Diagnosis Onset Date Resolution Status Dizziness acute Bipolar disorder chronic Hypertension chronic Essential thrombocytosis chr onic Thrombocytosis chronic Osteoarthritis resolved Essential thrombocythemia ch ronic Acute kidney injury acute Generalized weakness acute Hypokalemia acute Acute hypotension resolved Dehydration resolved Hyponatremia resolved Urinary tract infection reso lved Acute kidney injury acute Hypokalemia acute Acute hypotension resolved Dehydration resolved Hyponatremia resolved Urinary tract infection reso lved Pressure ulcer noneactive Bipolar disorder chronic Hypertension chronic Obstructive sleep apnea rehabilitation assistant aamir Smoker chronic Urinary tract infection reso lved [facility] Work Phone: Evaluation note* Diagnosis Onset Date Resolution Status Dizziness acute Bipolar disorder chronic Hypertension chronic Essential thrombocytosis chr onic Thrombocytosis chronic Osteoarthritis resolved Essential thrombocythemia ch ronic Acute kidney injury acute Generalized weakness acute Hypokalemia acute Acute hypotension resolved Dehydration resolved Hyponatremia resolved Urinary tract infection reso lved Acute kidney injury acute Hypokalemia acute Acute hypotension resolved Dehydration resolved Hyponatremia resolved Urinary tract infection reso lved Pressure ulcer noneactive Bipolar disorder chronic Hypertension chronic Obstructive sleep apnea rehabilitation assistant aamir Smoker chronic Urinary tract infection reso lved Acute kidney injury acute Hypertension chronic [facility] Work Phone: Evaluation note* Diagnosis Onset Date Resolution Status Essential thrombocythemia ch ronic Acute kidney injury acute Generalized weakness acute Hypokalemia acute Acute hypotension resolved Dehydration resolved Hyponatremia resolved Urinary tract infection reso lved Acute kidney injury acute Hypokalemia acute Acute hypotension resolved Dehydration resolved Hyponatremia resolved Urinary tract infection reso lved Pressure ulcer noneactive Bipolar disorder chronic Hypertension chronic Obstructive sleep apnea rehabilitation assistant aamir Smoker chronic Urinary tract infection reso lved Acute kidney injury acute Hypertension chronic Bruise acute 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 Thrombocytosis chronic Osteoarthritis resolved Acute kidney injury acute Hypertension chronic Venous insufficiency of both lower extremities chronic [facility] Work Phone: Evaluation note* Diagnosis Onset Date Resolution Status Bruise acute 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 Thrombocytosis chronic Osteoarthritis resolved Acute kidney injury acute Hypertension chronic Venous insufficiency of both lower extremities chronic Atypical chest pain acute Rib pain on right side acute Hypertension chronic Flu vaccine need acute Rib pain on right side acute Bipolar disorder chronic Hypertension chronic Venous insufficiency of both lower extremities chronic Hypertension chronic Urinary tract infection reso lved Hyponatremia noneactive Chronic constipation chronic GERD (gastroesophageal reflux disease) [facility] Work Phone: Evaluation note* Diagnosis Bipolar disorder with psychotic features ([facility]-CMS)- Primary Dissociative identity disorder (HCC-CMS) Dissociative identity disorder documented in this encounter [facility] Work Phone: Evaluation note* Diagnosis Bipolar disorder with psychotic features (HCC-CMS)- Primary Dissociative identity disorder ([facility]-CMS) Dissociative identity disorder Opioid use disorder, moderate, on maintenance therapy ([facility]-CMS) documented in this encounter [facility] Work Phone: Evaluation note* Diagnosis Tobacco use disorder- Primary Primary hypertension Unspecified essential hypertension Prediabetes Other abnormal glucose Morbid obesity with BMI of 40.0-44.9, adult ([facility]) JENNIFER (obstructive sleep apnea) Obstructive sleep apnea (adult) (pediatric) High cholesterol Pure hypercholesterolemia History of substance abuse ([facility]/HCC) (HCC) Other, mixed, or unspecified nondependent drug abuse, unspecified [facility]* Diagnosis Chronic obstructive pulmonary disease, unspecified COPD type (HCC)- Primary Primary hypertension Unspecified essential hypertension Gastroesophageal reflux disease, unspecified whether esophagitis present Tobacco use disorder JENNIFER (obstructive sleep apnea) Obstructive sleep apnea (adult) (pediatric) High cholesterol Pure hypercholesterolemia Morbid obesity with BMI of 40.0-44.9, adult ([facility]) Functional dyspepsia Dyspepsia and other specified disorders of function of stomach documented [facility]* Diagnosis Morbid obesity due to excess calories ([facility])- Primary Hypertension, unspecified type Functional dyspepsia Dyspepsia and other specified disorders of function of stomach [facility] Diagnosis Prediabetes- Primary Other abnormal glucose Gastroesophageal reflux disease, unspecified whether esophagitis present Functional dyspepsia Dyspepsia and other specified disorders of function of stomach [facility]* Diagnosis GERD (gastroesophageal reflux disease)- Primary Esophageal reflux Functional dyspepsia Dyspepsia and other specified disorders of function of stomach Morbid obesity with BMI of 40.0-44.9, adult ([facility]) Chronic superficial gastritis without bleeding JENNIFER (obstructive sleep apnea) Obstructive sleep apnea (adult) (pediatric) [facility] Diagnosis BMI 40.0-44.9, adult ([facility])- Primary Gastroesophageal reflux disease, unspecified whether esophagitis present Class 3 severe obesity with serious comorbidity and body mass index (BMI) of 40.0 to 44.9 in adult, unspecified obesity type ([facility]) documented in [facility]* Diagnosis Chronic obstructive pulmonary disease, unspecified COPD type ([facility])- Primary Encounter for pre-operative respiratory clearance JENNIFER (obstructive sleep apnea) Obstructive sleep apnea (adult) (pediatric) Smoker Tobacco use disorder Morbid obesity ([facility]) Morbid obesity documented in [facility]* Diagnosis Morbid obesity due to excess calories ([facility])- Primary Hypertension, unspecified type documented [facility]* Diagnosis Chronic obstructive pulmonary disease, unspecified COPD type ([facility])- Primary Primary hypertension Unspecified essential hypertension Gastroesophageal reflux disease, unspecified whether esophagitis present Tobacco use disorder JENNIFER (obstructive sleep apnea) Obstructive sleep apnea (adult) (pediatric) High cholesterol Pure hypercholesterolemia Morbid obesity with BMI of 40.0-44.9, adult (HCC) documented in this encounter [facility]* Diagnosis Morbid obesity due to excess calories (HCC)- Primary Hypertension, unspecified type documented in this encounter [facility]* Diagnosis Vitamin D deficiency- Primary Low vitamin B12 level High blood magnesium level Disorders of magnesium metabolism documented in this encounter [facility] note* Diagnosis Morbid obesity due to excess calories (HCC)- Primary Hypertension, unspecified type documented in this encounter [facility] note* Diagnosis Chronic obstructive pulmonary disease, unspecified COPD type (HCC)- Primary Primary hypertension Unspecified essential hypertension Gastroesophageal reflux disease, unspecified whether esophagitis present Tobacco use disorder JENNIFER (obstructive sleep apnea) Obstructive sleep apnea (adult) (pediatric) High cholesterol Pure hypercholesterolemia Morbid obesity with BMI of 40.0-44.9, adult (HCC) documented in this encounter [facility] note* Diagnosis Prediabetes- Primary Other abnormal glucose Gastroesophageal reflux disease, unspecified whether esophagitis present documented in this encounter [facility] note* Diagnosis Morbid obesity due to excess calories (HCC)- Primary Hypertension, unspecified type documented in this encounter [facility] note* Diagnosis Chronic obstructive pulmonary disease, unspecified COPD type (HCC)- Primary Primary hypertension Unspecified essential hypertension Gastroesophageal reflux disease, unspecified whether esophagitis present Tobacco use disorder JENNIFER (obstructive sleep apnea) Obstructive sleep apnea (adult) (pediatric) High cholesterol Pure hypercholesterolemia Morbid obesity with BMI of 40.0-44.9, adult (HCC) documented in this encounter [facility]* Diagnosis Fall, initial encounter [facility] Additional Instructions Implant Used?: [facility] Work Phone: Hospital Discharge instructions* Attachments The following attachments cannot be sent through Care Everywhere. * Upper GI Endoscopy Discharge Inst[facility] (Armenian) [facility] Consultation (Routine) - Pending Review Specialty Diagnoses / Procedures Referred By Contac t Referred To Contact Pulmonary Disease / Pulmonology Diagnoses Chronic obstructive pulmonary disease, unspecified COPD type (HCC) Tobacco use disorder JENNIFER (obstructive sleep apnea) Morbid obesity with BMI of 40.0-44.9, adult (HCC) Procedures MO OFFICE/OUTPATIENT NEW HIGH MDM 60-74 MINUTES Brett Bernal PA [address] [place] [address] [facility] [address] [place] [address] Referral ID Status Reason Start Date Expiration Date Visits Requested Visits Authorized [id number] Pending Review Specialty Services Required 05/13/2023 05/12/2024 1 1 * Consultation (Elective) - Pending Review Specialty Diagnoses / Procedures Referred By Contac t Referred To Contact Cardiology Diagnoses Chronic obstructive pulmonary disease, unspecified COPD type (HCC) Primary hypertension Tobacco use disorder JENNIFER (obstructive sleep apnea) Morbid obesity with BMI of 40.0-44.9, adult (HCC) Procedures MO OFFICE/OUTPATIENT NEW HIGH MDM 60-74 MINUTES Brett Bernal PA [address] [place] [address] [facility] Cf Card [address] [place] [address] Referral ID Status Reason Start Date Expiration Date Visits Requested Visits Authorized [id number] Pending Review Specialty Services Required 05/13/2023 05/12/2024 1 1 [facility] for referral (narrative)* Diagnostic Procedure Only (Urgent) - Closed Specialty Diagnoses / Procedures Referred By Contac t Referred To Contact XR IMAGING Diagnoses Fall, initial encounter Procedures XR HAND GENERAL 3V PA/LAT/OBL LT X-RAY HAND MINIMUM 3 VIEWS Nory Cardenas, [employer]ARP [employer]ING VAT TENDER.CONTROL ELECTRICIAN [address] [place] [address] [place] [address] Referral ID Status Reason Start Date Expiration Date V isits Requested Visits Authorized Closed Auto-Generate d Referral 08/29/2021 09/28/2022 1 1 * Diagnostic Procedure Only (Urgent) - Closed Specialty Diagnoses / Procedures Referred By Contac t Referred To Contact XR IMAGING Diagnoses Fall, initial encounter Procedures XR HIP GENERAL 3V PELV/AP/LAT LT RADEX HIP UNILATERAL WITH PELVIS 2-3 VIEWS Nory Cardenas APRN.CONTROL ELECTRICIAN [address] [place] [address] [place] [address] Referral ID Status Reason Start Date Expiration Date V isits Requested Visits Authorized Closed Auto-Generate d Referral 08/29/2021 09/28/2022 1 1 * Diagnostic Procedure Only (Urgent) - Closed Specialty Diagnoses / Procedures Referred By Contac t Referred To Contact XR IMAGING Diagnoses Fall, initial encounter Procedures XR WRIST GENERAL 3V PA/LAT/OBL LT X-RAY WRIST COMPLET MIN 3 VIEWS Nory Cardenas APRN.CONTROL ELECTRICIAN [address] [place] [address] [place] [address] Referral ID Status Reason Start Date Expiration Date V isits Requested Visits Authorized Closed Auto-Generate d Referral 08/29/2021 09/28/2022 1 1 * Diagnostic Procedure Only (Urgent) - Closed Specialty Diagnoses / Procedures Referred By Contac t Referred To Contact XR IMAGING Diagnoses Fall, initial encounter Procedures XR HUMERUS 2V AP/LAT LT X-RAY HUMERUS Nory Cardenas APRN.CONTROL ELECTRICIAN [address] [place] [address] [place] [address] Referral ID Status Reason Start Date Expiration Date V isits Requested Visits Authorized Closed Auto-Generate d Referral 08/29/2021 09/28/2022 1 1 [facility] Diagnostic Procedure Only (Urgent) - Closed Specialty Diagnoses / Procedures Referred By Kori t Referred To Contact XR IMAGING Diagnoses Fall, initial encounter Procedures XR HAND GENERAL 3V PA/LAT/OBL LT X-RAY HAND MINIMUM 3 VIEWS Nory Cardenas APRN.CNP [address] [place] [address] [place] [address] Referral ID Status Reason Start Date Expiration Date V isits Requested Visits Authorized Closed Auto-Generate d Referral 08/29/2021 09/28/2022 1 1 [facility] Summary Purpose Family History No Family History Records Found Mother Name Dates Details Family history of Alive and well Status:Active Father Name Dates Details Family history of Alive and well Status:Active Brother Name Dates Details Family history of malignant neoplasm of colon(V16.0, Z80.0) Status:Active Relationship Condition Age at Onset Recorded Date/T conrad brother Malignant neoplasm of colon Unknown Malignant neoplasm of lung Unknown aunt Obesity Unknown sister Obesity Unknown mother Rheumatoid arthritis Unknown father Alzheimer's disease Unknown brother Alzheimer's disease Unknown Advance Directives No Advanced Directives Records Found Advance Directive Response Recorded Date/ Time Advance Directives No August 10:14am Living Will No October 21 10:44pm Power of Co Teacher No October 21 10:44pm Documents on File Type Date Recorded Patient Ham Facer Expl anation Advance Directive(s) 01/22/2017 9:46 AM Advance Directive Response Recorded Date/ Time Advance Directives No August 10:14am Living Will No May 03, 2022 4:30pm Power of Co Teacher No May 03 4:30pm Advance Directive Response Recorded Date/ Time Advance Directives No May 06 1:37pm Living Will No May 06, 2022 1:37pm Power of Co Teacher No May 06 1:37pm Advance Directive Response Recorded Date/ Time Advance Directives No May 06 1:37pm Living Will No May 20, 2022 3:07pm Power of Co Teacher No May 20 3:07pm Advance Directive Response Recorded Date/ Time Advance Directives No May 06 1:37pm Living Will No July 16, 2022 10:25am Power of Co Teacher No June 10:25am Advance Directive Response Recorded Date/ Time Advance Directives No May 06 12:37pm Living Will No August 01 3:00pm Power of Co Teacher No August 01, 2022 3:00pm Latest Code Status on File Code Status Date Activated Date Inactivated Comments Full Code 06/16/2023 8:07 AM 06/16/2023 5:24 PM Latest Code Status on File Code Status Date Activated Date Inactivated Comments Full Code 06/16/2023 8:07 AM 06/16/2023 5:24 PM Chief Complaint and Reason for Visit Chief Complaint LEFT WRIST E ORDER ANXIETY LEFT DISTAL RADIUS FRACTURE/RX HERE FREQUENT FALLS LEFT WRIST xray 3 M FU left hand xray SCREENING Reason for Visit Left wrist fracture Debility Frequent falls Left ankle pain Left wrist fracture Debility Bipolar disorder Hypertension Urinary incontinence Left carpal tunnel syndrome Chief Complaint FREQUENT FALLS LEFT WRIST xray 3 M FU left hand xray SCREENING Reason for Visit Debility Frequent falls Left ankle pain Left wrist fracture Debility Bipolar disorder Hypertension Urinary incontinence Left carpal tunnel syndrome Chief Complaint LEFT WRIST xray 3 M FU left hand xray SCREENING LOWER PVD 3 M FU Reason for Visit Left wrist fracture Debility Bipolar disorder Hypertension Urinary incontinence Left carpal tunnel syndrome Dizziness Bipolar disorder Hypertension Chief Complaint SCREENING LOWER PVD 3 M FU LEFT WRIST xray lab draw 1YR LABS DEHYDRATION Reason for Visit Dizziness Bipolar disorder Hypertension Essential thrombocytosis Thrombocytosis Osteoarthritis Essential thrombocythemia Acute hypotension Acute kidney injury Dehydration Generalized weakness Hypokalemia Hyponatremia Urinary tract infection Chief Complaint SCREENING LOWER PVD 3 M FU LEFT WRIST xray lab draw 1YR LABS DEHYDRATION DEHYDRATION DEHYDRATION DEHYDRATION [facility]HYDRATION [facility] Reason for Visit Dizziness Bipolar disorder Hypertension Essential thrombocytosis Thrombocytosis Osteoarthritis Essential thrombocythemia Acute kidney injury Generalized weakness Hypokalemia Hyponatremia Acute hypotension Dehydration Urinary tract infection Acute kidney injury Hypokalemia Hyponatremia Acute hypotension Dehydration Urinary tract infection Pressure ulcer Chief Complaint LOWER PVD 3 M FU LEFT WRIST xray lab draw 1YR LABS DEHYDRATION DEHYDRATION DEHYDRATION DEHYDRATION DEHYDRATION [facility] Reason for Visit Dizziness Bipolar disorder Hypertension Essential thrombocytosis Thrombocytosis Osteoarthritis Essential thrombocythemia Acute kidney injury Generalized weakness Hypokalemia Acute hypotension Dehydration Hyponatremia Urinary tract infection Acute kidney injury Hypokalemia Acute hypotension Dehydration Hyponatremia Urinary tract infection Pressure ulcer Chief Complaint LOWER PVD 3 M FU LEFT WRIST xray lab draw 1YR LABS DEHYDRATION DEHYDRATION DEHYDRATION DEHYDRATION DEHYDRATION [facility] LEFT UPPER CTS follow up Reason for Visit Dizziness Bipolar disorder Hypertension Essential thrombocytosis Thrombocytosis Osteoarthritis Essential thrombocythemia Acute kidney injury Generalized weakness Hypokalemia Acute hypotension Dehydration Hyponatremia Urinary tract infection Acute kidney injury Hypokalemia Acute hypotension Dehydration Hyponatremia Urinary tract infection Pressure ulcer Bipolar disorder Hypertension Obstructive sleep apnea Smoker Urinary tract infection Chief Complaint LOWER PVD 3 M FU LEFT WRIST xray lab draw 1YR LABS DEHYDRATION DEHYDRATION DEHYDRATION DEHYDRATION DEHYDRATION [facility] LEFT UPPER CTS follow up 3 M FU Lt Wrist xray UTI Reason for Visit Dizziness Bipolar disorder Hypertension Essential thrombocytosis Thrombocytosis Osteoarthritis Essential thrombocythemia Acute kidney injury Generalized weakness Hypokalemia Acute hypotension Dehydration Hyponatremia Urinary tract infection Acute kidney injury Hypokalemia Acute hypotension Dehydration Hyponatremia Urinary tract infection Pressure ulcer Bipolar disorder Hypertension Obstructive sleep apnea Smoker Urinary tract infection Acute kidney injury Hypertension Chief Complaint LEFT WRIST xray 1YR LABS DEHYDRATION DEHYDRATION DEHYDRATION DEHYDRATION DEHYDRATION [facility] LEFT UPPER CTS follow up 3 M FU Lt Wrist xray UTI ACUTE-BUMPS ON HAND lab draw 1 M FU Reason for Visit Essential thrombocyt hemia Acute kidney injury Generalized weakness Hypokalemia Acute hypotension Dehydration Hyponatremia Urinary tract infection Acute kidney injury Hypokalemia Acute hypotension Dehydration Hyponatremia Urinary tract infection Pressure ulcer Bipolar disorder Hypertension Obstructive sleep apnea Smoker Urinary tract infection Acute kidney injury Hypertension Bruise Essential thrombocythemia Essential thrombocytosis Thrombocytosis Osteoarthritis Acute kidney injury Hypertension Venous insufficiency of both lower extremities Chief Complaint LEFT WRIST xray 1YR LABS DEHYDRATION DEHYDRATION DEHYDRATION DEHYDRATION DEHYDRATION [facility] LEFT UPPER CTS follow up 3 M FU Lt Wrist xray UTI ACUTE-BUMPS ON HAND lab draw 1 M FU CYSTO URETHRAL DILATATION,POSSIBLE BLADDER BX Reason for Visit Essential thrombocyt hemia Acute kidney injury Generalized weakness Hypokalemia Acute hypotension Dehydration Hyponatremia Urinary tract infection Acute kidney injury Hypokalemia Acute hypotension Dehydration Hyponatremia Urinary tract infection Pressure ulcer Bipolar disorder Hypertension Obstructive sleep apnea Smoker Urinary tract infection Acute kidney injury Hypertension Bruise Essential thrombocythemia Essential thrombocytosis Thrombocytosis Osteoarthritis Acute kidney injury Hypertension Venous insufficiency of both lower extremities Chief Complaint ACUTE-BUMPS ON HAND lab draw 1 M FU CYSTO URETHRAL DILATATION,POSSIBLE BLADDER BX FLANK 1 M FU FLU SHOT 1 M FU BMP, BP RECHECK Gastroesophageal reflux disease (GERD) Reason for Visit Bruise Essential thrombocythemia Essential thrombocytosis Thrombocytosis Osteoarthritis Acute kidney injury Hypertension Venous insufficiency of both lower extremities Atypical chest pain Rib pain on right side Hypertension Flu vaccine need Rib pain on right side Bipolar disorder Hypertension Venous insufficiency of both lower extremities Hypertension Urinary tract infection Hyponatremia Chronic constipation GERD (gastroesophageal reflux disease) Health Concerns Assessment Noted Time PHQ-9 Depression Total Score: 3 01/16/20 21 10:13 AM PDT Reason for Referral Specialty Diagnoses / Procedures Referred By Contac t Referred To Contact Diagnoses Chronic obstructive pulmonary disease, unspecified COPD type (HCC) Procedures Spirometry Kenzie Paul MD [address] [facility] [address] [place] [address] Referral ID Status Reason Start Date Expiration Date V isits Requested Visits Authorized [id number] Incomplete 06/25/2023 12/22/2023 1 1 Specialty Diagnoses / Procedures Referred By Contac t Referred To Contact Kareem Hartmann MD [address] [facility] [address] [place] [address] Referral ID Status Reason Start Date Expiration Date V isits Requested Visits Authorized [id number] Pending Review 1 1 Referral ID Status Reason Start Date Expiration Date V isits Requested Visits Authorized [id number] Pending Review 1 1 Referral ID Status Reason Start Date Expiration Date V isits Requested Visits Authorized [id number] Authorized 1 1 Referral ID Status Reason Start Date Expiration Date Visits Re quested Visits Authorized [id number] Closed 1 1 Additional Source Comments INFORMATION SOURCE (unrecogn ized section and content) DATE CREATED AUTHOR 04/07/2018 [facility] DATE CREATED AUTHOR AUTHOR'S ORGANIZ ATION 01/04/2019 [facility] DATE CREATED AUTHOR AUTHOR'S ORGANIZ ATION 02/19/2019 [facility] DATE CREATED AUTHOR AUTHOR'S ORGANIZ ATION 10/04/2020 [facility] DATE CREATED AUTHOR AUTHOR'S ORGANIZ ATION 12/12/2020 [facility] DATE CREATED AUTHOR AUTHOR'S ORGANIZ ATION 10/18/2023 [facility] DATE CREATED AUTHOR AUTHOR'S ORGANIZ ATION 02/16/2024 [facility] DATE CREATED AUTHOR AUTHOR'S ORGANIZ ATION 03/20/2024 [facility] DATE CREATED AUTHOR AUTHOR'S ORGANIZ ATION 02/15/2025 [facility] DATE CREATED AUTHOR AUTHOR'S ORGANIZ ATION 04/29/2025 [facility] Goals (unrecognized section and content) Goals may be documented in a n alternate sectionGoals may be documented in an alternate sectionGoals may be documented in an alternate sectionGoals may be documented in an alternate section Source Comments (unrecognize d section and content) In the event this informatio n is protected by the Federal Confidentiality of Alcohol and Drug Abuse Patient Records regulations: The Federal rules restrict any use of the information to criminally investigate or prosecute any alcohol or drug abuse patient.[facility] the event this information is protected by the Federal Confidentiality of Alcohol and Drug Abuse Patient Records regulations: The Federal rules restrict any use of the information to criminally investigate or prosecute any alcohol or drug abuse patient.[facility] the event this information is protected by the Federal Confidentiality of Alcohol and Drug Abuse Patient Records regulations: The Federal rules restrict any use of the information to criminally investigate or prosecute any alcohol or drug abuse patient.[facility] Reason for Visit (unrecogniz ed section and content) 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 Reason Comments Medication Management Telehealth (Audio) Follow Up Reason Comments Follow Up For evaluation of mo od Telehealth (Audio) Reason Comments Surgical Consult New Surg Specialty Diagnoses / Procedures Referred By Contac t Referred To Contact Bariatric Surgery / Bariatrics Diagnoses Obesity, unspecified Procedures eval Dejah Joyner, WARP SCOURING VAT TENDER - CONTROL ELECTRICIAN [address] [place] [address] [facility] [address] [place] [address] Referral ID Status Reason Start Date Expiration Date V isits Requested Visits Authorized [id number] Pending Review 03/17/2023 03/16/2024 1 1 Reason [...] BNA Specialty Diagnoses / Procedures Referred By Contac t Referred To Contact Diagnoses Functional dyspepsia Functional dyspepsia [K30] Procedures MO EGD TRANSORAL BIOPSY SINGLE/MULTIPLE EGD WITH BIOPSY Susie Ledezma MD [address] [place] [address] [facility] [address] [place] [address] Referral ID Status Reason Start Date Expiration Date Visits Re quested Visits Authorized [id number] 1 1 Reason Comments Weight Loss D/E [...] Reason Onset Date Comments Med Refill 09/28/2023 Reason Onset Date Comments Test Scheduling 02/15/2024 Care Teams (unrecognized sec tion and content) Car Cleaning Supervisor Relationship Specialty Start Date End Date Leopoldo Baird MD [address] [place], [place] [id number] PCP - General Internal Medicine 08/29/21 Car Cleaning Supervisor Relationship Specialty Start Date End Date Leopoldo Baird [address] [place], [place] [phone] PCP - General 12/05/20 Adelina Lin DO [address] [place] [phone] Addiction Medicine 04/30/23 Dejah Drew APRN - CONTROL ELECTRICIAN [address] [place] [address] Rd [address] [place] [address] Nurse Practitioner 04/30/23 Manjit Ga DO [facility] [place] [address] Psychiatry 04/30/23 Car Cleaning Supervisor Relationship Specialty Start Date End Date Leopoldo Baird [address] [place], [place] [phone] PCP - General 12/05/20 Adelina Lin DO [address] [place] [address] Addiction Medicine 04/30/23 Dejah Drew APRN - CONTROL ELECTRICIAN [address] [place] [address] [address] [place] [address] Nurse Practitioner 04/30/23 Manjit Ga DO [address] [place] [address] Psychiatry 04/30/23 Susie Ledezma MD [address] [place] [address] [address] [place] [address] Surgeon General Surgery 05/11/23 Car Cleaning Supervisor Relationship Specialty Start Date End Date Leopoldo Baird [address] [place], [place] [address] PCP - General 12/05/20 Adelina Lin DO [address] [place] [address] Addiction Medicine 04/30/23 Dejah Drew APRN - CONTROL ELECTRICIAN [address] [place] [address] [address] [place] [address] Nurse Practitioner 04/30/23 Manjit Ga DO [address] [place] [address] Psychiatry 04/30/23 Susie Ledezma MD [address] [place] [address] [address] [place] [address] Surgeon General Surgery 05/11/23 Car Cleaning Supervisor Relationship Specialty Start Date End Date Leopoldo Baird [address] [place] [address] PCP - General Internal Medicine 06/03/23 Adelina Lin DO [address] [place] [phone] Addiction Medicine 04/30/23 Dejah Drew APRN - CONTROL ELECTRICIAN [address] [facility] [address] [place] [address] Nurse Practitioner 04/30/23 Manjit Ga DO [address] [place] [address] Psychiatry 04/30/23 Susie Ledezma MD [address] [place] [address] [address] [place] [address] Surgeon General Surgery 05/11/23 Car Cleaning Supervisor Relationship Specialty Start Date End Date Leopoldo Baird [address] [facility] [address] [place] [phone] PCP - General Internal Medicine 06/03/23 Adelina Lin DO [address] [place] [address] Addiction Medicine 04/30/23 Dejah Drew APRN - CNP [address] [facility] [address] [place] [address] Nurse Practitioner 04/30/23 Manjit Ga DO [address] [place] [address] Psychiatry 04/30/23 Susie Ledezma MD [address] [place] [address] [address] [place] [address] Surgeon General Surgery 05/11/23 Car Cleaning Supervisor Relationship Specialty Start Date End Date Leopoldo Baird [address] [facility] [address] [place] [address] PCP - General Internal Medicine 06/03/23 Adelina Lin DO [address] [place] [address] Addiction Medicine 04/30/23 Dejah Drew APRN - CONTROL ELECTRICIAN [address] [facility] [address] [place] [address] Nurse Practitioner 04/30/23 Manjit Ga DO [address] [place] [address] Psychiatry 04/30/23 Susie Ledezma MD [address] [place] [address] [address] [place] [address] Surgeon General Surgery 05/11/23 Car Cleaning Supervisor Relationship Specialty Start Date End Date Leopoldo Baird [address] [place] [address] PCP - General Internal Medicine 06/03/23 Adelina Lin DO [address] [place] [phone] Addiction Medicine 04/30/23 Dejah Drew APRN - CONTROL ELECTRICIAN [address] [facility] [address] [place] [address] Nurse Practitioner 04/30/23 Manjit Ga DO [address] [place] [address] Psychiatry 04/30/23 Susie Ledezma MD [address] [place] [address] [address] [place] [address] Surgeon General Surgery 05/11/23 Car Cleaning Supervisor Relationship Specialty Start Date End Date Leopoldo Baird [address] [facility] [address] [place] [address] PCP - General Internal Medicine 06/03/23 Adelina Lin DO [address] [place] [phone] Addiction Medicine 04/30/23 Dejah Drew APRN - CONTROL ELECTRICIAN [address] [place] [address] Nurse Practitioner 04/30/23 Manjit Ga DO [address] [place] [address] Psychiatry 04/30/23 Susie Ledezma MD [address] [place] [address] [address] [place] [address] Surgeon General Surgery 05/11/23 Car Cleaning Supervisor Relationship Specialty Start Date End Date Leopoldo Baird [address] [facility] [address] [place] [phone] PCP - General Internal Medicine 06/03/23 Adelina Lin DO [address] [place] [address] Addiction Medicine 04/30/23 Dejah Drew APRN - CONTROL ELECTRICIAN [address] [place] [address] Nurse Practitioner 04/30/23 Manjit Ga DO [address] [place] [address] Psychiatry 04/30/23 Susie Ledezma MD [address] [place] [address] [address] [place] [address] Surgeon General Surgery 05/11/23 Car Cleaning Supervisor Relationship Specialty Start Date End Date Leopoldo Baird PCP - General 12/05/20 06/02/23 Leopoldo Baird [address] [facility] [address] [place] [address] PCP - General Internal Medicine 06/03/23 Adelina Lin DO [address] [place] [phone] Addiction Medicine 04/30/23 Dejah Drew APRN - CONTROL ELECTRICIAN [address] [place] [address] [address] [place] [address] Nurse Practitioner 04/30/23 Manjit Ga DO [address] [place], [place] [address] [place] [address] Psychiatry 04/30/23 Susie Ledezma MD [address] [place] [address] [address] [place] [address] Surgeon General Surgery 05/11/23 Car Cleaning Supervisor Relationship Specialty Start Date End Date Leopoldo Baird [address] [facility] [address] [place] [address] PCP - General Internal Medicine 06/03/23 Adelina Lin DO [address] [place] [address] Addiction Medicine 04/30/23 Dejah Drew APRN - CONTROL ELECTRICIAN [address] [facility] [address] [place] [address] Nurse Practitioner 04/30/23 Manjit Ga DO [address] [place] [address] Psychiatry 04/30/23 Susie Ledezma MD [address] [place] [address] [address] [place] [address] Surgeon General Surgery 05/11/23 Car Cleaning Supervisor Relationship Specialty Start Date End Date Leopoldo Baird [address] [facility] [address] [place] [address] PCP - General Internal Medicine 06/03/23 Adelina Lin DO [address] [place] [phone] Addiction Medicine 04/30/23 Dejah Drew APRN - [facility] [address] [facility] [address] [place] [address] Nurse Practitioner 04/30/23 Manjit Ga DO [address] [place] [address] Psychiatry 04/30/23 Susie Ledezma MD [address] [facility] [address] [place], [place] [address] Surgeon General Surgery 05/11/23 Car Cleaning Supervisor Relationship Specialty Start Date End Date Leopoldo Barid [address] [facility] [address] [place] [address] PCP - General Internal Medicine 06/03/23 Adelina Lin DO [address] [place] [address] Addiction Medicine 04/30/23 Dejah Drew APRN - CONTROL ELECTRICIAN [address] [facility] [address] [place] [address] Nurse Practitioner 04/30/23 Manjit Ga DO [address] [place] [address] Psychiatry 04/30/23 Susie Ledezma MD [address] [place] [address] [address] [place], [place] [address] Surgeon General Surgery 05/11/23 Car Cleaning Supervisor Relationship Specialty Start Date End Date Leopoldo Baird [address] [facility] [address] [place] [address] PCP - General Internal Medicine 06/03/23 Adelina Lin DO [address] [place] [address] Addiction Medicine 04/30/23 Dejah Drew APRN - CONTROL ELECTRICIAN [address] [facility] [address] [place] [address] Nurse Practitioner 04/30/23 Manjit Ga DO [address] [place] [address] Psychiatry 04/30/23 Susie Ledezma MD [address] [place] [address] [address] [place], [place] [address] Surgeon General Surgery 05/11/23 Car Cleaning Supervisor Relationship Specialty Start Date End Date Leopoldo Baird [address] [facility] [address] [place] [address] PCP - General Internal Medicine 06/03/23 Adelina Lin DO [address] [place] [address] Addiction Medicine 04/30/23 Dejah Drew APRN - CONTROL ELECTRICIAN [address] [place] [address] Nurse Practitioner 04/30/23 Manjit Ga DO [address] [place], [place] [address] [place] [address] Psychiatry 04/30/23 Susie Ledezma MD [address] [place] [address] Surgeon General Surgery 05/11/23 Car Cleaning Supervisor Relationship Specialty Start Date End Date Leopoldo Baird PCP - General 12/05/20 06/02/23 Leopoldo Baird [address] [facility] [address] [place] [address] PCP - General Internal Medicine 06/03/23 Adelina Lin DO [address] [place] [address] Addiction Medicine 04/30/23 Dejah Drew APRN - CONTROL ELECTRICIAN [address] [place] [address] Nurse Practitioner 04/30/23 Manjit Ga DO [address] [place] [address] Psychiatry 04/30/23 Susie Ledezma MD [address] [facility] [address] [place] [address] Surgeon General Surgery 05/11/23 Car Cleaning Supervisor Relationship Specialty Start Date End Date Leopoldo Baird [address] [place] [address] PCP - General Internal Medicine 06/03/23 Adelina Lin DO [address] [place] [phone] Addiction Medicine 04/30/23 Dejah Drew APRN - CNP [address] [place] [address] [address] [place] [address] Nurse Practitioner 04/30/23 Manjit Ga DO [address] [place] [address] Psychiatry 04/30/23 Susie Ledezma MD [address] [place] [address] [address] [place] [address] Surgeon General Surgery 05/11/23 Car Cleaning Supervisor Relationship Specialty Start Date End Date Leopoldo Baird [address] [facility] [address] [place] [address] PCP - General Internal Medicine 06/03/23 Adelina Lin DO [address] [place] [phone] Addiction Medicine 04/30/23 Dejah Drew APRN - CONTROL ELECTRICIAN [address] [place] [address] Nurse Practitioner 04/30/23 Manjit Ga DO [address] [place] [address] Psychiatry 04/30/23 Susie Ledezma MD [address] [place] [address] [address] [place] [address] Surgeon General Surgery 05/11/23 Car Cleaning Supervisor Relationship Specialty Start Date End Date Leopoldo Baird PCP - General 12/05/20 06/02/23 Leopoldo Baird [address] [facility] [address] [place] [address] PCP - General Internal Medicine 06/03/23 Adelina Lin DO [address] [place] [address] Addiction Medicine 04/30/23 Dejah Drew APRN - CONTROL ELECTRICIAN [address] [place] [address] Nurse Practitioner 04/30/23 Manjit Ga DO [address] [place] [address] Psychiatry 04/30/23 Susie Ledezma MD [address] [place] [address] [address] [place] [address] Surgeon General Surgery 05/11/23 Car Cleaning Supervisor Relationship Specialty Start Date End Date Leopoldo Baird [address] [place] [address] PCP - General Internal Medicine 06/03/23 Adelina Lin DO Addiction Medicine 04/30/23 Dejah Drew APRN - [facility] [address] [facility] [address] [place] [address] Nurse Practitioner 04/30/23 Manjit Ga DO [address] [place] [address] Psychiatry 04/30/23 Susie Ledezma MD [address] [place] [address] [address] [place] [address] Surgeon General Surgery 05/11/23 Car Cleaning Supervisor Relationship Specialty Start Date End Date Leopoldo Baird MD [address] [place], [place] [address] PCP - General Internal Medicine 08/29/21 Car Cleaning Supervisor Relationship Specialty Start Date End Date Leopoldo Baird MD [address] [place] [address] PCP - General Internal Medicine 08/29/21 Continuous Active and Recently Administ ered Medications (unrecognized section and content) Medication Order 06/14/2023 06/15/2023 06/16/2023 sodium chloride 0.9 % infusion 50 mL/hr, IntraVENous, Continuous, Starting on Thu06/16/23 at 0815, Preprocedure 0815 (Canceled Entry - Provider: Automatic Discharge Provider - Comment: Automatically canceled at discontinue of medication order) FOR RECORDS PERTAINING TO PATIENTS WHO ARE [...] BE BASED ON THE PRIMARY CLINICAL RECORDS. [facility]. provides no warranty or guarantee of the accuracy or completeness of information in this document.
[2025-05-05 07:38] LABS: Hematocrit 42.8 % (37-47); Hemoglobin 14.4 g/dL (12.0-15.0); Immature Granulocytes Count 0.310 X10^3/uL (0.0-0.0); Mean Corp Hgb Conc 33.6 g/dL (32-36); Mean Corpuscular Volume 93.9 fL (81-99); Mean Platelet Vol. 8.9 fl (6.2-12.0); NRBC Flagged by Analyzer 0 % (0-5); Platelet Count 630 K/mm3 (150-450); RBC Distribution Width CV 15.7 % (11.6-14.6); RBC Distribution Width SD 54.1 fl (35.1-43.9); Red Blood Count 4.56 M/mm3 (4.2-5.4); White Blood Count 14.3 K/mm3 (4.4-11.0)
[2025-05-05 08:06] LABS: AST(SGOT) 23 U/L (<=31); Alanine Aminotransfer ALT/SGPT 18 U/L (<=34); Albumin, Serum 4.2 g/dL (3.4-4.8); Alkaline Phosphatase 110 U/L (35-104); Anion Gap 15 (5-15); BUN 14 mg/dL (4-19); BUN/Creat Ratio 15.4 RATIO (10-20); Calcium,Total 10.1 mg/dL (7.6-11.0); Carbon Dioxide 22.9 mmol/L (21.0-32.0); Chloride 99 mmol/L (98-108); Globulin 2.9 g/dL (2.2-4.2); Glucose 133 mg/dL (70-99); Potassium 4.2 mmol/L (3.3-5.1)
[2025-05-05 15:44] LABS: Mucous, Urine 0 SEEN /hpf (<or=2+); Red Blood Cells-Urine 0 SEEN /hpf (0-5)
[2025-05-05 15:46] LABS: Color, Urine Yellow (Yellow); Glucose, Dipstick Normal (Normal); Ketone-Dipstick Negative (Negative); Leukocyte Esterase-Dipstick 25 /ul (Negative); Nitrite-Dipstick Negative (Negative); Occult Blood-Urine 25 /ul (Negative); Protein-Dipstick 15 mg/dl (Negative); Specific Gravity, Urine 1.010 (1.002-1.030); Urine Bilirubin Dipstick Negative (Negative)
[2025-05-05 15:54] LABS: Squamous Epithelial Cells - UA 0-5 SEEN /hpf (5-10)
== END | disposition home or self-care (01) ==
PROVIDERS: PCP Internal Medicine; Referring Provider Internal Medicine; Visit Provider Internal Medicine
DX: N30.00 Acute cystitis without hematuria (principal); E11.9 Type 2 diabetes mellitus without complications; I10 Essential (primary) hypertension
CPT/HCPCS: 36415; 80053; 81001; 83036; 85025; 87086

== ENCOUNTER 2025-05-09 11:00 | Outpatient (RCR) | payer MEDICARE, MEDICAID, SELFPAY ==
--- NOTE | 2025-01-12 14:31 | HP.PTREVAL_ITS ---
Re-Evaluation Intro: Dr. Robert Garcia MD, It has been my pleasure to treat ALEXIA POWELL over the last 57 visits for Bilat Shld OA. Please see the progress note below for an update on the physical therapy plan of care! Subjective Subjective: Pt. reprots being 60% better overall. Pt. is still having some trouble with walking without AD. Objective Objective/Function: TU.2 sec with rollator, SPC 17.3sec, no AD 14.4sec., no goal of 10sec with SPC and no AD. 6 MWT: 550' with 1 larger rest periods, time was still running. pt. uses rollator to complete. New goal set of 750' MMT: RLE: Knee: ext 31.8#, flexion 25.9# 14.4# LLE: knee: ext 38.1#, flexion 30.9#; hip: flexion 18.6# 30 sec sit to stand- 15 Plan Plan Plan: 1) CKC strengthening exercises working on quad and hip strength. Progress functional strengthening as able 2) stair negotiation with 1 or 2 hand rails. Pt's daughter only has 1 HR at her house 3) progressive endurances with gait 4) balance activities Balance/Gait/Functional tests Balance/Special Test Scores Functional Gait Assessment Score: 9 % Disability: 70.0000 Lower Extremity Functional Score: 20 30 Second Chair Rise Test Seconds: 15 Goals Goals Goal 1:: LTG: Pt. to complete TUG with out AD with time less than 10sec. Goal Time Frame: 4-6 Weeks Goal Progress: Progressing Goal 2:: LTG: Pt. to complete FGA with score of at least 15/30 indicating increased dynamic balance and increased stability in stance Goal Time Frame: 6-8 Weeks Goal Progress: Progressing Goal 3:: LTG: Pt. to have symmetrical BLE strength. Goal Time Frame: 6-8 Weeks Goal Progress: Progressing Goal 4:: LTG: Pt. to complete 6 MWT with rollator with distance of at least 750' Goal Time Frame: 6-8 Weeks Goal Progress: Progressing Goal 5:: LTG: Pt. to negotiate 1 flight of stairs with 1-2 HR allowing for improved I at home and daughters home. Goal Time Frame: 6-8 Weeks Anticipated Interventions Anticipated Interventions Patient/Client Instruction: Educate patient on: Condition, Plan of Care, Risk Factors and Benefits of Fitness Program For the Purpose of:: To improve decision making, To facilitate caregiver knowledge, To improve self management, To prevent re-injury, To improve ability to perform tasks related to life management and To improve tolerance to ADL's Therapeutic Exercise to Include: Strength training, Power training, Endurance training, Body mechanics, Postural training, Flexibilty training and Gait and locomotor training For the Purpose of:: To decrease pain, To increase ROM, To improve nutrient delivery to tissue, To increase oxygenation perfusion, To improve muscle performance and motor function, To increase tolerance to ac tivity/condition/position, To improve performance and independence with ADL's, To decrease level of supervision to perform tasks, To improve ability of physical actions for home/community/work/leisure and To improve gait and locomotor functions Re-Evaluation Ending Re-evaluation ending: Please do not hesitate to contact me at [phone] by phone or if you have questions or concerns regarding this new plan of care! Sincerely, Marlo Rodríguez DPT
--- NOTE | 2025-03-16 07:52 | HP.PTREVAL_ITS ---
Re-Evaluation Intro: Dr. Rboert Garcia MD, It has been my pleasure to treat ALEXIA POWELL over the last 57 visits for Bilat Shld OA. Please see the progress note below for an update on the physical therapy plan of care! Subjective Subjective: Pt. continues to have increased difficulty with all mobility. Pt. reports pain in L hip and L shoulder. No falls noted since starting PT. Objective Objective/Function: Pt. has regressed with her walking. She is now walking with rollator upto 340', where previously she was using a SPC. Pt. reports increased hip pain limiting her tolerance to walking. She reports increased fatigue as well. PT. declined stairs today secondary to pain. At this point in time she has plateaued a bit with therapy. She is having increased pain limiting her tolerance to strengthening, gait and stairs. Due to this she has not shown much progress over the past few weeks in therapy. Pt. may benefit from some other assistance to help with her pain. Pt. would really like to continue with PT, but her tolerance to it has declined. I will ask for more, but I do believe she should consider talking with physician to see if anything may help her hip pain allowing for better tolerance to mobility. Plan Plan Plan: I am asking for a few more visits, but I do think she should follow up with physician to see if anything can help with her hip pain allowing for better tolerance. Balance/Gait/Functional tests Balance/Special Test Scores Functional Gait Assessment Score: 10 % Disability: 66.6700 Lower Extremity Functional Score: 15 TUG Test Time Seconds: 19.1 Tug Test: <20 sec.=mostly independent 30 Second Chair Rise Test Seconds: 15 6 Minute Walk Test: 340' with rollator. Pt. ambulated for 3:31 and had to stop due to fatigue and pain Goals Goals Goal 1:: LTG: Pt. to complete TUG with out AD with time less than 10sec. Goal Time Frame: 4-6 Weeks Goal Progress: Not Progressing Goal 2:: LTG: Pt. to complete FGA with score of at least 15/30 indicating i ncreased dynamic balance and increased stability in stance Goal Time Frame: 6-8 Weeks Goal Progress: Not Progressing Goal 3:: LTG: Pt. to have symmetrical BLE strength. Goal Time Frame: 6-8 Weeks Goal Progress: Progressing Goal 4:: LTG: Pt. to complete 6 MWT with rollator with distance of at least 750' Goal Time Frame: 6-8 Weeks Goal Progress: Not Progressing Goal 5:: LTG: Pt. to negotiate 1 flight of stairs with 1-2 HR allowing for improved I at home and daughters home. Goal Time Frame: 6-8 Weeks Goal Progress: Not Progressing Anticipated Interventions Anticipated Interventions Patient/Client Instruction: Educate patient on: Condition, Plan of Care, Risk Factors and Benefits of Fitness Program For the Purpose of:: To improve decision making, To facilitate caregiver knowledge, To improve self management, To prevent re-injury, To improve ability to perform tasks related to life management and To improve tolerance to ADL's Therapeutic Exercise to Include: Strength training, Power training, Endurance training, Body mechanics, Postural training, Flexibilty training and Gait and locomotor training For the Purpose of:: To decrease pain, To increase ROM, To improve nutrient d elivery to tissue, To increase oxygenation perfusion, To improve muscle performance and motor function, To increase tolerance to activity/condition/position, To improve performance and independence with ADL's, To decrease level of supervision to perform tasks, To improve ability of physical actions for home/community/work/leisure and To improve gait and locomotor functions Re-Evaluation Ending Re-evaluation ending: Please do not hesitate to contact me at [phone] by phone or if you have questions or concerns regarding this new plan of care! Sincerely, Marlo Rodírguez DPT
--- NOTE | 2025-05-09 11:50 | HP.PTDCSUM_ITS ---
Discharge Summary D/C summary: It has been my pleasure to treat ALEXIA POWELL referred by Dr. Robert Garcia MD, with the diagnosis of Bilat Shld OA for a total of 63 visit(s). Discharge Date: 05/09/25 Please see the following information for a summary of their discharge status. Subjective Subjective: Pt. reports having 5/10 pain in her R knee today, 5/10 in L shoulder as well. Pt. reports she can not have an injection in her knee for ~1 more month. Pt. is walking a rollator. Pain Right Knee: Pain Intensity (Out of 10): 5 Left Shld: Pain Intensity (Out of 10): 5 Left Hip: Pain Intensity (Out of 10): 0 Right Hip: Pain Intensity (Out of 10): 0 Overall Improvement % Improvement: 20 Objective Objective/Function: Pt. reports doing okay. She is is still having increased R k nee and L shoulder pain. Pt. reports some slight improvement with her R knee pain, but not much change L shoulder. MMT: R knee: Ext 31.7#, flex 24.0# L knee: 36.7#, flex 23.3# Pt. in many ways as regressed with her goals. Pt. has very similar strength, limited TUG time and decreased 6 MWT. PT. is unable to ascend stairs with loading RLE, but has to complete step to pattern with loading LLE only. She had talked with physician about doing a TKA, but was told to complete smoking cessation. She reports struggling with completing this. She has not made much progress with PT due to her knee pain. I am having he follow up with physician to determine if any other options are available to assist her with her knee pain. I do think if we could reduce this she would have better tolerance with her functional mobility. Goals Goal 1:: LTG: Pt. to complete TUG with out AD with time less than 10sec. Goal Progress: Not Progressing Goal 2:: LTG: Pt. to complete FGA with score of at least 15/30 indicating increased dynamic balance and increased stability in stance Goal Progress: Not Progressing Goal 3:: LTG: Pt. to have symmetrical BLE strength. Goal Progress: Not Progressing Goal 4:: LTG: Pt. to complete 6 MWT with rollator with distance of at least 750' Goal Progress: Not Progressing Goal 5:: LTG: Pt. to negotiate 1 flight of stairs with 1-2 HR allowing for improved I at home and daughters home. Goal Progress: Not Progressing Plan Plan: Pt. will be DC from PT at this point in time. D/C Information d/c sentence: If there are questions or concerns regarding this patient's physical therapy, please feel free to call me at [phone]. Thank you for the referral of this patient. Sincerely, Marlo Rodríguez, DPT Balance/Gait/Functional tests Balance/Special Test Scores Functional Gait Assessment Score: 12 % Disability: 60.0000 Lower Extremity Functional Score: 29 TUG Test Time Seconds: 24.4 Tug Test: 20-30sec.=variable mobility 30 Second Chair Rise Test Seconds: 11 6 Minute Walk Test: Pt. walked for 2:16 with distance of 241' with rollator. Pt. reports being limited secondary to pain in her R knee and fatigue. Improvement % Improvement: 20
== END 2025-05-09 19:00 | disposition home or self-care (01) ==
LOC: PT 11:00
PROVIDERS: PCP Internal Medicine; Referring Provider Orthopaedic Surgery Sports Medicine; Visit Provider Orthopaedic Surgery Sports Medicine
DX: R53.81 Other malaise (principal); M19.90 Unspecified osteoarthritis, unspecified site; M25.511 Pain in right shoulder; M25.512 Pain in left shoulder
CPT/HCPCS: 97035; 97110; 97116; 97530

== ENCOUNTER → 2025-09-19 | Outpatient (CLI) | payer MEDICARE, MEDICAID, SELFPAY ==
--- NOTE | 2025-09-19 13:45 | BI_ITS ---
EXAM: SCRN MAMM (CAD)W/ISAURA BILAT DATE: 09/19/2025 CLINICAL HISTORY: F, Age 75 y/o , BREAST CANCER SCREENING Sister with breast cancer. TECHNIQUE: Procedure Code: [id number] Modality: MG Procedure: SCRN MAMM (CAD)W/ISAURA BILAT COMPARISON: Prior exam(s) dated July 05, 2024.. FINDINGS: TISSUE DENSITY: The breasts are almost entirely fatty. Bilateral Breast Mammographic Findings: No significant masses, calcifications or other abnormalities are identified. No suspicious masses, areas of developing architectural distortion, or suspicious calcifications. There has been no significant interval change. BI/SCRN MAMM (CAD)W/ISAURA BILAT IMPRESSION: Stable bilateral screening mammogram. OVERALL FINAL ASSESSMENT BI-RADS 1: NEGATIVE. RECOMMENDATION: Routine annual follow-up in 1 Year Additional Recommendation none A letter with findings and recommendations will be mailed to the patient. Reading Location: [facility]
== END | disposition home or self-care (01) ==
LOC: OPBI 13:21
PROVIDERS: PCP Internal Medicine; Referring Provider Internal Medicine; Visit Provider Internal Medicine
DX: Z12.31 Encounter for screening mammogram for malignant neoplasm of breast (principal)
CPT/HCPCS: 77063; 77067